=== PATIENT | female | born 1970 | race Caucasian/White ===

== ENCOUNTER → 2016-10-09 | Outpatient (CLI) | payer MEDICAID ==
[~2016-10-09] MED LIST: ALB0.5V IH; ALKA SELTZER CHEWS PO; ALPR.5T PO; ARFO15VI2 IH; BNZT2T PO; CARB100C2 PO; CARB200T6 PO; CHLO500T2; CLIN-62 PO; CLON0.5T3 PO; CPR500T PO; DESV100T PO; DIAZ-345; DIAZ5TAB49 PO; DOXY100C2 PO; DULO30CA; DULO60CA58 PO; DULO60CA6; EST.625T; ESTR0.9T; ESTR0.9T PO; FLC150T PO; FLECTOR TD; FLUT1DIS26; FLUT1DIS26 IH; FLUT1DIS27 IH; GABA-488 PO; HYDR-34; HYDR1TAB PO; HYDR1TAB86; HYOS0.1216 PO; IMIP25TA4 PO; IMIP50TA4 PO; LACT10SO33 PO; LD5PT TD; LEVA1.25 IH; LNS30CCR; LNS30CCR PO; LORA10TA7 PO; LRT10T PO; MIRT15TA6 PO; MPR22T TP; MULT-608; MULT-974 PO; NAPR-243 PO; NAPR-689 PO; NF-CARB200; OMEP20CA6 PO; OMEP40CA36 PO; ONDA4TAB2; ONDAN4ODT; OXB5T PO; OXYB5TAB9 PO; PEG250PW; PENT100C5 PO; PHEN200T27 PO; POLY119P; PREG75CA; PRM25T PO; PROP-33 PO; PROP1TAB77 PO; PROP20TA23; PROP20TA5; RABE20TA PO; RANI150T90 PO; RT-ALBUINH IH; TERA5CAP10 PO; TRAM-21 PO; TRAZ-144 PO; TRAZ150T42 PO; TRZ100T; ZPR40C; ZPR40C PO; [UNRECOGNIZED DRUG - OTHER]
== END ==
LOC: PREOP 05:49
PROVIDERS: ATTEND Surgery
DX: Z01.818 Encounter for other preprocedural examination (principal); K62.89 Other specified diseases of anus and rectum

== ENCOUNTER 2018-05-13 18:29 | Emergency (ER) | payer MEDICAID ==
[~2018-05-13] VITALS: Ht 149.9 cm; Wt 68.0 kg
[2018-05-13 19:30] VITALS: BP 100/65
--- NOTE | 2018-05-13 19:37 | ED Cough/URI ---
General Chief Complaint: Cough/Cold/Flu Symptoms Stated Complaint: BODY ACHES/HOT AND COLD FLASHES Nursing Triage Note: PT REPORTS COUGH/COLD/FLU S/S WITH BODY ACHES AND HPT/COLD FLASHES X 2 DAYS. REPORTS GRANDCHILDREN THAT LIVE WITH HER HAVE TESTED POSITIVE FOR THE FLU. Sepsis Screen: No Definite Risk Source: patient Exam Limitations: no limitations History of Present Illness Date Seen by Provider: May 13, 2018 Time Seen by Provider: 19:22 Initial Comments Patient presents to ER by private conveyance with chief complaint of 2 days of fever of 100 and nonproductive cough runny nose. She is using Tylenol. She also had some diarrhea for which she uses some prescribed antidiarrheal medicine from her primary care doctor. All the kids in her household are sick with flu and strep throat. She's had decreased activity but good oral intake and still urinating without painful urination. Allergies and Home Medications Allergies Coded Allergies: Sulfa (Sulfonamide Antibiotics) (Unverified Allergy, Mild, 07/08/08) cephalexin (Unverified Allergy, Mild, 10/04/08) nitrofurantoin (Unverified Allergy, Mild, 09/14/08) tramadol (Unverified Allergy, Mild, 08/31/08) lubiprostone (Unverified Allergy, Unknown, 06/17/12) trihexyphenidyl (Unverified Allergy, Unknown, 12/21/13) Home Medications Albuterol Sulfate 1 Puff Puff, 2 PUFF IH Q6H PRN for SHORTNESS OF BREATH, ( Reported) Carbamazepine 200 Mg Tablet, 200 MG PO BID, (Reported) Duloxetine HCl 60 Mg Capsule.dr, 120 MG PO DAILY, (Reported) TAKES 2 (60MG) CAPSULES DAILY Estrogens,Conjugated 0.9 Mg Tablet, 0.9 MG PO DAILY, (Reported) Fluticasone/Salmeterol 1 Disk Inhp, 1 PUFF IH BID PRN for SHORTNESS OF BREATH, ( Reported) Gabapentin 300 Mg Capsule, 300 MG PO TID PRN for PAIN, (Reported) Imipramine Hcl 50 Mg Tablet, 50 MG PO HS, (Reported) Loratadine 10 Mg Tablet, 10 MG PO HS, (Reported) Naproxen 500 Mg Tablet, 500 MG PO BID, (Reported) Omeprazole 40 Mg Capsule.dr, 40 MG PO BID, (Reported) Oxybutynin Chloride 5 Mg Tablet, 5 MG PO BID, (Reported) Ranitidine Hcl 150 Mg Tablet, 150-300 MG PO BID PRN for HEARTBURN, (Reported) Trazodone Hcl 50 Mg Tablet, 50-100 MG PO HS, (Reported) [[place]asia-[place] Chews] , 2 TAB.CHEW PO TID PRN for INDIGESTION, (Reported) Patient Home Medication List Home Medication List Reviewed: Yes Review of Systems Review of Systems Constitutional: chills, fever, malaise, weakness EENTM: No ear discharge, No hearing loss, No ear pain, No eye pain Respiratory: cough; No phlegm, No short of breath, No wheezing Cardiovascular: No chest pain, No palpitations Gastrointestinal: No abdominal pain, No constipation; diarrhea; No nausea Genitourinary: No discharge, No dysuria Past Ipkueuw-Vhyxka-Tzemec Hx Patient Social History Alcohol Use: Denies Use Recreational Drug Use: No Smoking Status: Current Everyday Smoker Recent Foreign Travel: No Contact w/Someone Who Travel: No Recent Infectious Disease Expo: No Immunizations Up To Date Tetanus Booster (TDap): Unknown Date of Pneumonia Vaccine: Dec 14, 2011 Date of Influenza Vaccine: Dec 24, 2013 Seasonal Allergies Seasonal Allergies: No Past Medical History Surgeries: Yes (LEFT BREAST BIOPSY--BENIGN. EGD/COLONOSCOPY) Section, Hysterectomy, Tubal Ligation Respiratory: Yes Asthma, COPD Cardiac: No Neurological: Yes (EPILEPSY) Seizure Disorder Reproductive Disorders: No DIRECTOR SEARCH History: Hysterectomy UTI-Chronic Gastrointestinal: Yes (CONSTIPATION) Gastroesophageal Reflux, Chronic Constipation, Ulcer, Irritable Bowel Musculoskeletal: No Endocrine: No Loss of Vision: Left Cancer: No Psychosocial: Yes Sleep Difficulties, Anxiety, Depression Integumentary: Yes (SPIDER BITE WITH CELLULITIS 12/21/13) Blood Disorders: No Adverse Reaction/Blood Tranf: No Family Medical History Diabetes mellitus G8 SISTER Physical Exam Vital Signs - First Documented 05/13/18 18:46 Temp 97.6 Pulse 90 Resp 18 B/P (MAP) 100/65 (77) Pulse Ox 95 Capillary Refill : Less Than 3 Seconds Height: 4'11.00" Weight: 150lbs. oz. 68.181625kv; BMI Method:Estimated General Appearance: WD/WN, no apparent distress Eyes: Bilateral Eye Normal Inspection, Bilateral Eye PERRL, Bilateral Eye EOMI HEENT: PERRL/EOMI, normal ENT inspection, TMs normal, pharynx normal Neck: non-tender, full range of motion, supple, normal inspection Respiratory: chest non-tender, lungs clear, normal breath sounds, no respiratory distress, no accessory muscle use Cardiovascular: normal peripheral pulses, regular rate, rhythm Gastrointestinal: normal bowel sounds, non tender, soft, no organomegaly Neurologic/Psychiatric: alert, normal mood/affect, oriented x 3 Progress/Results/Core Measures Suspected Sepsis Recent Fever Within 48 Hours: No Infection Criteria Present: None New/Unexplained Altered Menta: No Sepsis Screen: No Definite Risk SIRS Temperature:97.6 Pulse: 90 Respiratory Rate: 18 Blood Pressure 100 /65 Mean: 77 Results/Orders Micro Results Microbiology 05/13/18 Influenza Types A,B Antigen (ELEAZAR) - Final, Complete My Orders Orders - HEATHER FULLER Influenza A And B Antigens (05/13/18 18:56) Vital Signs/I&O 05/13/18 18:46 Temp 97.6 Pulse 90 Resp 18 B/P (MAP) 100/65 (77) Pulse Ox 95 Capillary Refill : Less Than 3 Seconds Blood Pressure Mean: 77 Departure Impression Primary Impression: Upper respiratory infection Qualified Codes: J06.9 - Acute upper respiratory infection, unspecified Disposition: HOME, SELF-CARE Condition: Stable Departure-Patient Inst. Decision time for Depature: 19:35 Referrals: [facility] (PCP/Family) Primary Care Physician Patient Instructions: Cough, Runny Nose, and the Common Cold (DC) Add. Discharge Instructions: If you start healing your ears under water then you can use Flonase or Rhinocort twice a day for the next week. Use Tylenol and/or ibuprofen every 8 hours as needed for pain, bodyaches or fever. If you continue to have diarrhea you can use 2 tablets of Imodium followed by one more tablet every time you have a watery stool every 4 hours. For your runny nose you can use [id number] nasal decongestants such as chlorpheniramine 4 mg every 4 hours. Turned he down in the house and use a humidifier at all times. Use vapor rubs such as Vicks or Mentholatum. All discharge instructions reviewed with patient and/or family. Voiced understanding. HEATHER FULLER May 13, 2018 19:37
== END 2018-05-13 19:57 | disposition home or self-care (01) ==
LOC: EDUNIT# 18:29 → ER 18:30
DX: J06.9 Acute upper respiratory infection, unspecified (principal); J44.9 Chronic obstructive pulmonary disease, unspecified; G40.909 Epilepsy, unspecified, not intractable, without status epilepticus; K21.9 Gastro-esophageal reflux disease without esophagitis; K58.9 Irritable bowel syndrome, unspecified; F41.9 Anxiety disorder, unspecified; F32.9 Major depressive disorder, single episode, unspecified; F17.210 Nicotine dependence, cigarettes, uncomplicated; Z87.19 Personal history of other diseases of the digestive system; Z98.890 Other specified postprocedural states; Z87.440 Personal history of urinary (tract) infections; Z90.710 Acquired absence of both cervix and uterus; Z98.51 Tubal ligation status; Z88.2 Allergy status to sulfonamides; Z88.1 Allergy status to other antibiotic agents; Z88.6 Allergy status to analgesic agent; Z88.8 Allergy status to other drugs, medicaments and biological substances; Z79.51 Long term (current) use of inhaled steroids
CPT/HCPCS: 87804

== ENCOUNTER → 2018-08-11 | Outpatient (CLI) | payer MEDICAID ==
--- NOTE | 2018-08-11 10:40 | Diagnostic Imaging Report ---
PROCEDURE: CT chest without contrast. TECHNIQUE: Multiple contiguous axial images were obtained through the chest without the use of intravenous contrast. Auto Exposure Controls were utilized during the CT exam to meet ALARA standards for radiation dose reduction. INDICATION: Weight loss and family history of lung problems. COMPARISON: Correlation is made with prior CT angiogram of the chest from 08/20/2010. FINDINGS: No axillary lymphadenopathy is identified. Mediastinal and hilar evaluation is limited without intravenous contrast. No pericardial or pleural fluid is identified. The lungs are clear. No infiltrates are seen. No nodule or mass is detected. Upper abdomen is unremarkable. Bony structures are nonacute. IMPRESSION: Unremarkable noncontrast CT of the chest. Dictated by: Dictated on workstation # [id number]
== END ==
LOC: RAD 10:11
PROVIDERS: ATTEND Family Medicine
DX: R63.4 Abnormal weight loss (principal); Z83.6 Family history of other diseases of the respiratory system
CPT/HCPCS: 71250

== ENCOUNTER → 2018-09-12 | Outpatient (CLI) | payer MEDICAID | END | disposition home or self-care (01) | LOC: PREOP 05:51 | PROVIDERS: ATTEND Surgery | DX: Z01.818 Encounter for other preprocedural examination (principal) ==

== ENCOUNTER → 2018-10-17 | Outpatient (CLI) | payer MEDICAID | END | disposition home or self-care (01) | LOC: PREOP 06:37 | PROVIDERS: ATTEND Surgery | DX: Z01.818 Encounter for other preprocedural examination (principal) ==

== ENCOUNTER 2018-10-24 10:15 | Day surgery (SDC) | payer MEDICAID ==
[~2018-10-24] VITALS: Ht 149.9 cm; Wt 68.0 kg
[2018-10-24] VITALS (7 sets, daily range): BP systolic 94–135; BP diastolic 60–82
[~2018-10-24 10:15] MED LIST changes: +LACTATED RINGERS 1,000 ML IV ONE
[2018-10-24] MEDS ORDERED: LACTATED RINGERS 1,000 ML IV STA (10:52)
[2018-10-24] MEDS ORDERED: fentaNYL INJECTION 100 MCG/2 ML AMP IVP ONE (11:00)
[2018-10-24] MEDS ORDERED: MIDAZOLAM 2 MG/2 ML (VERSED) VIAL IVP ONE (11:00)
--- NOTE | 2018-10-24 11:09 | Progress Note-Pre Operative ---
Pre-Operative Progress Note H&P Reviewed The H&P was reviewed, patient examined and no changes noted. Time Seen by Provider: 11:05 Date H&P Reviewed: Oct 24, 2018 Time H&P Reviewed: 11:05 Pre-Operative Diagnosis: rectal bleed TERRANCE SCHULTZ DO Oct 24, 2018 11:09
[2018-10-24] MEDS ORDERED: proPOfol 200 MG/20 ML (DIPRIVAN) VIAL IV ONE ×3 (11:18→11:40)
[2018-10-24] MEDS ORDERED: MIDAZOLAM 2 MG/2 ML (VERSED) VIAL ONE (11:22)
--- OUTSIDE RECORDS SUMMARY | 2018-10-24 11:59 | XMS REPORT | Clinical Summary ---
Author Author [facility] Organization [facility] Address Unknown Phone Unavailable Care Team Providers Care Monitoring Tech Name Role Phone PCP Unavailable Allergies Not on File Medications Not on file Active Problems Not on file Social History Date Tobacco Use Types Packs/Day Years Used Never Assessed Sex Assigned at Date Recorded Not on file Industry Job Start Date Occupation Not on file Not on file Not on file Travel End Travel History Travel Start No recent travel history available. Last Filed Vital Signs Not on file Plan of Treatment Not on file Results Not on filefrom Last 3 Months
--- OUTSIDE RECORDS SUMMARY | 2018-10-24 11:59 | XMS REPORT | Encounter Summary ---
Author Author [facility] Organization [facility] Address Unknown Phone Unavailable Care Team Providers Care Machinist Name Role Phone PCP Unavailable Encounter Details Care Team Description Date Type Department Rohit Marquez MD [address] [facility] [address] [place] [address] [phone] 07/22/2010 [facility] Encounter [address] [place] [address] Social History Date Tobacco Use Types Packs/Day Years Used Never Assessed Sex Assigned at Date Recorded Not on file Industry Job Start Date Occupation Not on file Not on file Not on file Travel End Travel History Travel Start No recent travel history available. documented as of this encounter Plan of Treatment Not on filedocumented as of this encounter Procedures Comments Procedure Name Priority Date/Time Associated Diagnosis CULTURE, URINE Routine 07/22/2010 12:58 PM CDT documented in this encounter Results * Culture, Urine (07/22/2010 12:58 PM CDT) Specimen Urine Narrative Performed At [facility] Specimen: URINE Collected: 07/22/2010 12:58 Status: FinalLast Updated: 07/24/2010 08:34 Isolate 1 (Final) 56933 Cfu/ml Escherichia coli Isolate 1 Escherichia coli mcg/ml ELEAZAR Ampicillin>=32R Aztreonam <=1 S Cefazolin 16R Cefepime<=1 S Ceftriaxone <=1 S Ciprofloxacin <=0.25S ESBL (+/-)- Ertapenem <=0.5 S Gentamicin<=1 S Meropenem <=0.25S Nitrofurantoin<=16S Septra/Bactrim<=20S Antibiotic Therapy Table: DrugCost Administration AMPICILLIN$IV AMPICILLIN$PO AZTREONAM $$$IV CEFAZOLIN $IV CEFEPIME$IV CEFTRIAXONE $IV CIPROFLOXACIN $PO CIPROFLOXACIN $IV ERTAPENEM $$ IV GENTAMICIN$IV MEROPENEM $$$IV NITROFURANTOIN$PO SEPTRA/BACTRIM$PO Performing Organization Address City/State/[facility] Phone Number [facility] [phone] documented in this encounter Visit Diagnoses Not on filedocumented in this encounter
--- OUTSIDE RECORDS SUMMARY | 2018-10-24 11:59 | XMS REPORT | Clinical Summary ---
Author Author [facility] Organization [facility] Address Unknown Phone Unavailable Care Team Providers Care Fur Designer Name Role Phone Pete Patten MD Unavailable Yaneth Stone MD Unavailable Jay Olsen PCP Claudia Ashraf RN Unavailable Unavailable Yahir Ruelas MD Unavailable Source Comments Some departments are not documenting in the electronic medical record. If you d o not see the information that you expected, contact Release of Information in [facility] Information Management department at [phone] for further assistan ce in locating additional records.[facility] Allergies Comments Active Allergy Reactions Severity Noted Date Lubiprostone NAUSEA AND 08/11/2012 VOMITING Cephalexin UNKNOWN 08/11/2012 Megestrol UNKNOWN 08/11/2012 Nitrofurantoin UNKNOWN 08/11/2012 Sulfa (Sulfonamide NAUSEA AND 08/11/2012 Antibiotics) VOMITING Medications End Date Status Medication Sig Dispensed Refills Start Date Active FLUTICASONE/SALMETEROL Inhale by 0 (ADVAIR DISKUS IN) mouth daily. Active Arformoterol (BROVANA) 15 Inhale by 0 mcg/2 mL Nebu mouth twice daily. Active clonazePAM (KLONOPIN) 0.5 Take 0.5 mg 0 mg tablet by mouth twice daily. Active loratadine (CLARITIN) 10 Take 10 mg by 0 mg tablet mouth daily. Active carBAMazepine (TEGRETOL) Take 200 mg 0 200 mg tablet by mouth twice daily. Active OMEPRAZOLE (PRILOSEC PO) Take 30 mg by 0 mouth. Active estrogens, conjugated Take 0.9 mg 0 (PREMARIN) 0.9 mg tablet by mouth daily. Active DULOXETINE HCL (CYMBALTA Take by 0 PO) mouth. Active traZODone (DESYREL) 50 mg Take 50 mg by 0 tablet mouth at bedtime daily. Active terazosin (HYTRIN) 5 mg Take 5 mg by 0 capsule mouth at bedtime daily. Active polyethylene glycol 3350 Take 17 g by 1530 g 3 (MIRALAX) 17 gram/dose mouth twice 3 powderIndications: daily. Heartburn, Rectal bleed, Constipation Active naproxen (NAPROSYN) 500 Take 500 mg 0 mg tablet by mouth twice daily with meals. Active imipramine (TOFRANIL) 50 TAKE 1 TABLET 90 Tab 0 mg tabletIndications: BY MOUTH AT 4 Interstitial cystitis BEDTIME Active pentosan polysulfate 1 Cap three 270 Cap 0 sodium (ELMIRON) 100 mg times daily 4 capsuleIndications: before meals. Interstitial cystitis Active oxybutynin (DITROPAN) 5 TAKE 1 TABLET 60 Tab 0 mg tablet BY MOUTH 4 TWICE DAILY Active Problems Problem Noted Date Constipation 12/28/2012 Heartburn 12/28/2012 Abdominal pain 12/28/2012 Rectal bleeding 12/28/2012 Interstitial cystitis 08/15/2012 Last Assessment & Plan: Patient has increasing bladder spasms. PVR today was 56ml demonstrating adequate bladder emptying. The patient may benefit from an anticholinergic for her spasms. The patient was counseled on continuing her imipramine and elmiron for incontinence and IC respectively, follow the IC diet, and reduce the amount of caffeine consumed. The patient was made aware of the side effects of oxybutynin and was encouraged to increase fiber in her diet or follow the bowel cocktail recipe. Plan: 1. Oxybutynin 5mg BID 2. Continue IC medications 3. IC diet and bowel cocktail information 4. RTC in 3 months to reassess Family History Medical History Relation Name Comments Heart Attack Brother Heart Disease Brother Heart Attack Father Heart Disease Father Heart Attack Mother Heart Disease Mother Relation Name Status Comments Brother Father Mother Social History Date Tobacco Use Types Packs/Day Years Used Current Every Day Smoker 0.3 Comments: >6 cigs a day Drinks/Week oz/Week Comments Alcohol Use No Sex Assigned at Date Recorded Not on file Industry Job Start Date Occupation Not on file Not on file Not on file Travel End Travel History Travel Start No recent travel history available. 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 Oxygen Saturation - - Inhaled Oxygen Concentration 84.8 kg (187 lb) 08/28/2013 12:10 PM CDT Weight 149.9 cm (4' 11") 08/28/2013 12:10 PM CDT Height 37.77 08/28/2013 12:10 PM CDT Body Mass Index Plan of Treatment Health Maintenance Due Date Last Done Comments PHYSICAL (COMPREHENSIVE) 1976 EXAM HIV SCREENING 1984 DTAP/TDAP VACCINES ( - 08/24/1987 Tdap) CERVICAL CANCER SCREENING 08/24/1999 BREAST CANCER SCREENING 2009 INFLUENZA VACCINE 12/13/2018 Results Not on filefrom Last 3 Months Insurance Type Payer Benefit Subscriber ID Effective Phone Address Plan / Dates Group Medicaid [facility] [place]ID [place] [facility] xxxxxxxxxxx [id number] [employer] [place] Advance Directives Patient Necktie Operator Pockets And Pieces Explanation Type Date Recorded Advance 01/03/2013 2:27 PM Directive/DPOA
--- OUTSIDE RECORDS SUMMARY | 2018-10-24 11:59 | XMS REPORT | CCD ---
Author Author EVETTE ANDRADE Organization Unknown Address [address] [facility] [address] [place], [place] [id number] Care Team Providers Care Dance Director Name Role Phone TAVERAS, NURYS DO Attphys TAVERAS, NURYS DO Prisurg Vital Signs Unknown or Not Available. Allergies Allergy Code Allergy Type Reaction Status No Known Drug Allergies 0 No known drug allergies Active Procedures Procedure Code Procedure Type Date ^UA AUTO DIPSTICK ONLY [id number] SNOMED CT 04/13/2015 UA ROUTINE C&S IF IND [id number] SNOMED CT 04/13/2015 History of Immunizations Immunization Code Date influenza, split (incl. purified surface antigen) 15 12/19/1992 influenza, split (incl. purified surface antigen) 15 01/24/2001 pneumococcal polysaccharide PPV23 33 01/01/2012 influenza, unspecified formulation 88 01/02/1998 Tdap 115 10/15/2005 Tdap 115 01/30/2009 Influenza, seasonal, injectable 141 01/01/2012 Problems Unknown or Not Available. Results UA ROUTINE C&S IF IND - Collect Date/Time: 04/13/2015 15:30 Test Name Code Test Result Test Units Test Ref Range COLOR YELLOW N/A NL: YELLOW APPEARANCE CLEAR N/A NL: CLEAR SPEC GRAV <=1.005 N/A NL: 1.002 - 1.022 pH 6.0 N/A NL: 5 - 9 PROTEIN NEGATIVE N/A NL: NEGATIVE mg/dl GLUCOSE NEGATIVE N/A NL: NEGATIVE mg/dl KETONE NEGATIVE N/A NL: NEGATIVE mg/dl BILIRUBIN NEGATIVE N/A NL: NEGATIVE BLOOD NEGATIVE N/A NL: NEGATIVE NITRITE NEGATIVE N/A NL: NEGATIVE LEUK SCREEN NEGATIVE N/A NL: NEGATIVE MICRO INDICATED? NOT INDICATED N/A Active Medications Unknown or Not Available. Medications Administered During Visit Unknown or Not Available. Encounters Encounter Diagnosis Diagnosis Code Start Date Allergic rhinitis [id number] 04/13/2015 Social History Smoking Status Code Start Date End Date Current every day smoker [id number] Patient Decision Aids Unknown or Not Available. Discharge Instructions You were admitted to [facility] on 04/13/2015 14:40 with a principal diagnosis of Allergic rhinitis, unspecified You had the following tests done: UA ROUTINE C&S IF IND You were discharged from [facility] on 04/13/2015 16:04 Should you have any questions prior to discharge, please contact a member of your healthcare team. If you have left the hospital and have any questions, please contact your primary care physician. Chief Complaint and Reason For Visit Chief Complaint Date of Onset LOSS OF VOICE PRODUCTIVE COUGH Function Status Unknown or Not Available. Plan of Care Unknown or Not Available. Referral/Transition of Care Unknown or Not Available.
--- OUTSIDE RECORDS SUMMARY | 2018-10-24 12:00 | XMS REPORT ---
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 Name Role Phone Migration, Doctor Unavailable Unavailable PROBLEMS Type Condition ICD9-CM Code DCA39-UR Code Onset Dates Condition Status SNOMED Code Problem Chronic periodontal disease K05.6 Active 6610808 Problem MRSA (methicillin resistant staph aureus) culture positive Z22.322 Active 845647158 Problem Interstitial cystitis N30.10 Active 559895868 Problem Epilepsy G40.909 Active 47236791 Problem Esophageal reflux K21.9 Active 146083865 Problem Major depressive disorder F32.9 Active 866169059 Problem Lumbago M54.5 Active 782679521 Problem Generalized anxiety disorder F41.1 Active 056371314 Problem Tinnitus of both ears H93.13 Active 7081294821429 Problem Chronic obstructive pulmonary disease, unspecified COPD type J44.9 Active 20305804 Problem On antiepileptic therapy Z79.899 Active 591541955 Problem Paresthesia of skin R20.2 Active 92089471 Problem Irritable bowel syndrome without diarrhea K58.9 Active 48495342 Problem Paresthesia R20.2 Active 82874282 Problem Fibromyalgia M79.7 Active 92991965 Problem Vitamin D deficiency E55.9 Active 71917940 Problem Irritable bowel syndrome with diarrhea K58.0 Active 461260382 Problem Menopausal symptoms N95.1 Active 88337937 Problem COPD exacerbation J44.1 Active 319511585 ALLERGIES No Information ENCOUNTERS Encounter Location Date Diagnosis [facility] [address] [facility] [id number] [address] Sep, [facility] [address] [facility] [id number] [address] Sep, [facility] [address] [facility] [id number] [address] Sep, [facility] [address] [facility] [id number], [place] [address] Sep, [facility] [address] [address] Sep, Rectal pain K62.89 [facility] [address] [address] Aug, [address] [address] Aug, Well woman exam (no gynecological exam) Z00.[address] [address] Aug, [facility] [address]65[address] [address] Aug, Well woman exam (no gynecological exam) Z00.00 and Hemorrhoids, unspecified hemorrhoid type K64.[address] [address] Aug, [facility] [address]65[address] [address] July, Dysuria R30.0 ; Bleeding hemorrhoids K64.9 and Hematochezia K92.1 [facility] [id number] [place] [address] July, [facility] [address] [address] July, Dysuria R30.0 [facility] [address], [place] [address] July, Paresthesia R20.2 [facility] [address] [address] July, [facility] [id number] [place] [address] July, Fibromyalgia M79.7 and Generalized anxiety disorder F41.1 [facility] [address] [address] July, [facility] [address] [address] Jun, [facility] [address] [address] Jun, Dysuria R30.0 ; Major depressive disorder F32.9 ; Interstitial cystitis N30.10 ; Vitamin D deficiency E55.9 ; Hematochezia K92.1 ; Paresthesia of skin R20.2 and Weight loss R63.4 [facility] [address] [address] Jun, Fibromyalgia M79.7 [place] [address] [address] May, Fibromyalgia M79.7 [place] [address] [address] Apr, [facility] [address] [address] Mar, Fibromyalgia M79.7 [place] [address] [address] Feb, Fibromyalgia M79.7 [facility] [address] [address] Feb, Acute cystitis with hematuria N30.01 [place] [address] [address] Feb, Acute cystitis with hematuria N30.01 ; COPD exacerbation J44.1 ; Interstitial cystitis N30.10 ; Nausea R11.0 and Rectal bleeding K62.5 [facility] [address] [address] Jan, Fibromyalgia M79.7 [facility] [id number] [place] [id number] Dec, [facility] [address] [id number] Dec, [facility] [id number] [place] [address] Dec, Fibromyalgia M79.7 [facility] [address] [address] Dec, [facility] [address] [address] Oct, [facility] [address] [id number] Oct, [facility] [address] [address] Oct, [facility] [address] [address] Sep, [facility] [address] [address] Sep, [facility] [address] [address] Sep, [facility] [id number] [place] [id number] Aug, Dental examination Z01.20 [facility] [address] [address] Aug, Abscess of axilla, left L02.412 [facility] [id number] [place] [address] Aug, Esophageal reflux K21.9 [facility] [id number] [place] [address] Aug, [facility] [address] [address] Aug, Esophageal reflux K21.9 ; Fluid level behind tympanic membrane of right ear H65.91 ; Fibromyalgia M79.7 and Lumbago M54.5 [facility] [address] [address] Aug, Esophageal reflux K21.9 [facility] [address], [place] [address] July, [facility] [address], [place] [address] July, [facility] [address]65[address], [place] [address] July, Chronic obstructive pulmonary disease, unspecified COPD type J44.9 [facility] [address], [place] [address] July, [place] [id number] [place] [address] July, [place] [address], [place] [address] July, Interstitial cystitis N30.10 ; Fibromyalgia M79.7 ; Irritable bowel syndrome without diarrhea K58.9 ; Chronic obstructive pulmonary disease, unspecified COPD type J44.9 ; Weight loss R63.4 ; Hematochezia K92.1 ; Screening for breast cancer Z12.31 ; Palpitations R00.2 ; Chest pain, unspecified type R07.9 ; Lumbago M54.5 ; Menopausal symptoms N95.1 ; Screening cholesterol level Z13.220 ; Dysuria R30.0 and Generalized anxiety disorder F41.1 [place] [address] [address] Jun, [place] [address], [place] [address] Jun, Chronic obstructive pulmonary disease, unspecified COPD type J44.9 ; COPD exacerbation J44.1 and Sore throat J02.9 [place] [address], [place] [address] Jun, Fibromyalgia M79.7 [place] [address], [place] [address] Jun, Fibromyalgia M79.7 [facility] [address], [place] [address] May, [facility] [id number] [place] [address] May, [facility] [id number] [place] [address] May, Fibromyalgia M79.7 [facility] [id number] [place] [address] Mar, [facility] [id number] [place] [address] Mar, Epilepsy G40.909 ; Lumbago M54.5 ; Esophageal reflux K21.9 ; Fibromyalgia M79.7 ; Chronic obstructive pulmonary disease, unspecified COPD type J44.9 ; Vitamin D deficiency E55.9 ; Fluid level behind tympanic membrane of right ear H65.91 ; Irritable bowel syndrome with diarrhea K58.0 ; Hematochezia K92.1 and Generalized anxiety disorder F41.1 [facility] [id number] [place] [address] Mar, [facility] [id number] [place] [address] Mar, [facility] [address] [place] [address] Mar, Vitamin D deficiency E55.9 [facility] [id number] [place] [address] Feb, [facility] [id number] [place] [address] Feb, [facility] [id number] [place] [address] Jan, Fibromyalgia M79.7 [facility] [address] [place] [address] Jan, [facility] [id number] [place] [address] Jan, [facility] [id number] [place] [address] Jan, Vitamin D deficiency E55.9 [facility] [id number] [place] [address] Dec, [facility] [address] [address] Dec, [facility] [id number] [place] [address] Dec, Generalized anxiety disorder F41.1 [place] [id number] [place] [address] Dec, Dysuria R30.0 ; Acute bilateral low back pain without sciatica M54.5 and Encounter for immunization Z23 [place] [address] [address] Oct, [facility] [id number] [place] [address] Oct, Fibromyalgia M79.7 [facility] [id number] [place] [address] Sep, Dysuria R30.0 and Acute bronchitis, unspecified organism J20.9 [facility] [id number] [place] [address] Sep, [facility] [id number] [place] [address] Sep, Rectal prolapse K62.3 [place] [id number] [place] [address] Sep, Chronic obstructive pulmonary disease, unspecified COPD type J44.9 [facility] [id number] [place] [id number] Aug, [facility] [address] [id number] [place] [address] Aug, [place] [id number] [place] [address] Aug, Light headedness R42 ; On antiepileptic therapy Z79.899 ; Vitamin D deficiency E55.9 ; Screening for lipid disorders Z13.220 ; Dysuria R30.0 and Hemorrhoids, unspecified hemorrhoid type K64.9 [place] [address] [address] Aug, Internal prolapsed hemorrhoids K64.[address] [address] July, [address] [address] May, [address] [address] May, Fever and chills R50.9 and Influenza B J10.1 [place] [id number] [place] [address] Apr, [place] [id number] [place] [address] Apr, Fibromyalgia M79.7 and Generalized anxiety disorder F41.[address] [address] Mar, Esophageal reflux K21.9 ; Generalized anxiety disorder F41.1 and Epilepsy G40.909 [place] [id number] [place] [address] Mar, Epilepsy G40.909 ; Esophageal reflux K21.9 ; Fibromyalgia M79.7 ; Generalized anxiety disorder F41.1 ; Pain of left foot M79.672 ; Pain in right foot M79.671 ; Ear pain, right H92.01 ; Tinnitus of both ears H93.13 ; Chronic obstructive pulmonary disease, unspecified COPD type J44.9 ; Vitamin D deficiency E55.9 ; Screening for lipid disorders Z13.220 and On antiepileptic therapy Z79.899 [facility] [id number] [place] [address] Feb, [facility] [id number] [place] [address] Feb, [facility] [id number] [place] [address] Feb, Dysuria R30.0 and Plantar fasciitis of right foot M72.2 [facility] [id number] [place] [address] Feb, [facility] [id number] [place] [address] Feb, [facility] [id number] [place] [address] Jan, [facility] [id number] [place] [address] Jan, [facility] [id number] [place] [address] Dec, [facility] [id number] [place] [address] Dec, [facility] [id number] [place] [address] Dec, [facility] [id number] [place] [address] Nov, [facility] [id number] [place] [address] Sep, [facility] [id number] [place] [address] Aug, Shortness of breath R06.02 and Acute suppurative otitis media of right ear without spontaneous rupture of tympanic membrane, recurrence not specified H66.001 [facility] [id number] [place] [address] 14 Aug, 2015 Internal prolapsed hemorrhoids K64.8 [place] [address] [address] 06 Jun, 2015 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 [place] [address] [address] May, Fibromyalgia M79.7 ; Interstitial cystitis N30.10 ; Intractable migraine without aura and without status migrainosus G43.019 ; Low vitamin D level E55.9 and Ringing in right ear H93.11 [place] [address] [address] May, [place] [address] [address] May, Low vitamin D level E55.9 [place] [address] [address] Apr, [place] [address] [address] Mar, [place] [address] [address] Mar, Acute suppurative otitis media of right ear without spontaneous rupture of tympanic membrane, recurrence not specified H66.001 ; Encounter for immunization Z23 ; Asthma with acute exacerbation, unspecified asthma severity J45.901 ; Memory problem R41.3 ; Acute pain of right knee M25.561 ; Chronic fatigue R53.82 and Excessive urinary volume R35.8 [place] [address] [address] Feb, [place] [address] [address] Feb, [place] [address] [address] Jan, [facility] [address] [place] [address] Nov, Esophageal reflux 530.81 ; Anxiety 300.00 and Tingling in extremities 782.0 [facility] [id number] [place] [address] Oct, [facility] [address] [address] Oct, [facility] [address] [address] Oct, [facility] [address] [address] Oct, [facility] [id number] [place] [address] Oct, [facility] [address] [address] Sep, Other chronic allergic conjunctivitis 372.14 ; Irritable bowel syndrome 564.1 ; 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 ; Fibromyalgia 729.1 ; Extremity pain 729.5 and Neck pain 723.1 [facility] [id number] [place] [address] Sep, [facility] [id number] [place] [address] Aug, [facility] [id number] [place] [address] Aug, [facility] [id number] [place] [address] July, Vomiting 787.03 [facility] [id number] [place] [id number] July, Dental examination V72.2 [facility] [id number] [place] [address] Jun, [facility] [place] [facility] [address] [id number] [place] [address] Jun, [facility] [place] [facility] [address] [id number] [place] [address] May, [facility] [place] [facility] [address] [id number] [place] [address] May, [facility] [place] [facility] [address] [id number] [place] [address] May, [facility] [place] [facility] [address] [id number] [place] [address] May, [facility] [place] [facility] [address] [id number] [place] [address] May, [facility] [place] [facility] [address] [id number] [place] [address] May, [facility] [place] [facility] [address] [id number] [place] [address] May, [facility] [place] [facility] [address] [id number] [place] [address] May, [facility] [place] [facility] [address] [id number] [place] [address] May, [facility] [place] [facility] [address] [facility] [id number] [place] [address] Apr, [facility] [place] [facility] [address] [id number] [place] [address] Apr, 2014 [facility] [place] [facility] [address] [id number] [place] [address] Apr, [facility] [place] [facility] [address] [id number] [place] [address] Apr, [facility] [place] [facility] [address] [id number] [place] [address] 05 Apr, 2014 [facility] [place] [facility] [address] [id number] [address] Apr, [facility] [place] [facility] [address] [id number] [place] [address] Mar, [facility] [place] [facility] [address] [id number] [place] [address] Mar, [facility] [place] [facility] [address] [id number] [place] [address] Mar, [facility] [place] [facility] [address] [id number] [place] [address] Mar, [facility] [place] [facility] [address] [id number] [place] [address] Mar, [facility] [place] [facility] [address] [id number] [place] [address] Mar, [facility] [place] [facility] [address] [id number] [place] [address] Mar, [facility] [place] [facility] [address] [id number] [place] [address] Mar, [facility] [place] [facility] [address] [id number] [place] [address] Mar, [facility] [place] [facility] [address] [id number] [place] [address] Mar, [facility] [place] [facility] [address] [id number], [place] [address] Mar, [facility] [place] [facility] [address] [id number], [place] [address] Mar, [facility] [place] [facility] [address] [id number] [place] [address] Mar, [facility] [place] [facility] [address] [id number] [place] [address] Mar, [facility] [place] [facility] [address] [id number] [place] [address] Mar, [facility] [place] [facility] [address] [id number] [place] [address] 15 Mar, 2014 [facility] [place] [facility] [address] [id number] [place] [address] 15 Mar, 2014 [facility] [place] [facility] [address] [id number] [place] [address] 09 Mar, 2014 [facility] [place] [facility] [address] [id number] [place] [address] Mar, [facility] [place] [facility] [address] [id number] [place] [address] 18 Feb, 2014 [facility] [place] [facility] [address] [id number] [place] [address] Feb, [facility] [place] [facility] [address] [id number] [place] [address] Feb, [facility] [place] [facility] [address] [id number] [place] [address] Feb, [facility] [place] [facility] [address] [id number] [place] [address] Jan, [facility] [place] [facility] [address] [id number] [place] [address] Jan, [facility] [place] [facility] [address] [id number] [place] [address] 14 Jan, 2014 [facility] [place] [facility] [address] [id number] [place] [address] 14 Jan, 2014 [facility] [place] [facility] [address] [id number] [place] [address] 14 Jan, 2014 [facility] [place] [facility] [address] [id number] [place] [address] Jan, [facility] [place] [facility] [address] [id number] [place] [address] Jan, [facility] [place] [facility] [address] [id number] [place] [address] Jan, [facility] [place] [facility] [address] [id number] [place] [address] Dec, [facility] [place] [facility] [address] [id number] [place] [address] Dec, [facility] [place] [facility] [address] [id number] [place] [address] Dec, [facility] [place] [facility] [address] [id number] [place] [address] Dec, [facility] [place] [facility] [address] [id number] [place] [address] 22 Nov, 2013 [facility] [place] [facility] [address] [id number] [place] [address] 22 Nov, 2013 [facility] [place] [facility] [address] [id number] [place] [address] 08 Nov, 2013 [facility] [place] [facility] [address] [id number] [place] [address] 08 Nov, 2013 [facility] [place] [facility] [address] [id number] [place] [address] 05 Sep, 2013 [facility] [place] [facility] [address] [id number] [place] [address] 05 Sep, 2013 [facility] [place] [facility] [address] [id number] [place] [address] 04 Sep, 2013 [facility] [place] [facility] [address] [id number] [address] 04 Sep, 2013 [facility] [place] [facility] [address] [id number] [place] [address] 03 Sep, 2013 [facility] [place] [facility] [address] [id number] [place] [address] 03 Nov, 2013 [facility] [place] [facility] [address] [id number] [place] [address] 15 Oct, 2013 [facility] [place] [facility] [address] [id number] [place] [address] Oct, [facility] [place] [facility] [address] [id number] [place] [address] Sep, [facility] [place] [facility] [address] [id number] [place] [address] Sep, [facility] [place] [facility] [address] [id number] [place] [address] Sep, [facility] [place] [facility] [address] [id number] [place] [address] Sep, [facility] [place] [facility] [address] [id number] [place] [address] Sep, [facility] [place] [facility] [address] [id number] [place] [address] Sep, [facility] [place] [facility] [address] [id number] [place] [address] Aug, [facility] [place] [facility] [address] [id number] [place] [address] Aug, [facility] [place] [facility] [address] [id number] [place] [address] Aug, [facility] [place] [facility] [address] [id number] [place] [address] Aug, [facility] [place] [facility] [address] [id number] [place] [address] Aug, [facility] [place] [facility] [address] [id number] [place] [address] Aug, [facility] [place] [facility] [address] [id number] [place] [address] July, [facility] [place] [facility] [address] [id number] [place] [address] July, [facility] [place] [facility] [address] [id number] [place] [address] July, [facility] [place] [facility] [address] [id number] [place] [address] July, [facility] [place] [facility] [address] [id number] [place] [address] July, [facility] [place] [facility] [address] [id number] [place] [address] July, [facility] [facility] [address] [id number] [place] [address] Jun, [facility] [place] [facility] [address] [id number] [place] [address] Jun, [facility] [place] [facility] [address] [id number] [place] [address] Jun, [facility] [place] [facility] [address] [id number] [place] [address] Jun, [facility] [place] [facility] [address] [id number] [place] [address] May, [facility] [place] [facility] [address] [id number] [place] [address] May, [facility] [place] [facility] [address] [id number] [place] [address] Apr, [facility] [facility] [address] [id number] [place] [address] Apr, [facility] [place] [facility] [address] [id number] [place] [address] Apr, [facility] [place] [facility] [address] [id number] [place] [address] Apr, [facility] [place] [facility] [address] [id number] [place] [address] Mar, [facility] [place] [facility] [address] [id number] [place] [address] Mar, [facility] [place] [facility] [address] [id number] [place] [address] Mar, [facility] [place] [facility] [address] [id number] [place] [address] Mar, [facility] [place] [facility] [address] [id number] [place] [address] Mar, [facility] [place] [facility] [address] [id number] [place] [address] Mar, [facility] [place] [facility] [address] [id number] [place] [address] Feb, [facility] [place] [facility] [address] [id number] [place] [address] Feb, [facility] [place] [facility] [address] [id number] [place] [address] Jan, [facility] [place] [facility] [address] [id number] [place] [address] Jan, [facility] [place] [facility] [address] [id number] [place] [address] Jan, [facility] [place] [facility] [address] [id number] [place] [address] Jan, [facility] [place] [facility] [address] [id number] [place] [address] Nov, [facility] [place] [facility] [address] [id number] [place] [address] Nov, [facility] [place] [facility] [address] [id number] [place] [address] Oct, [facility] [place] [facility] [address] [id number] [place] [address] Oct, [facility] [place] [facility] [address] [id number] [place] [address] Sep, [facility] [place] [facility] [address] [id number] [place] [address] Sep, [facility] [place] [facility] [address] [id number] [place] [address] Sep, [facility] [address] [id number] [place] [address] Aug, [facility] [address] [id number] [place] [address] Aug, [facility] [address] [id number] [place] [address] Aug, [facility] [address] [id number] [place] [address] Aug, [facility] [address] [id number] [place] [address] July, [facility] [address] [id number] [place] [address] July, [facility] [address] [id number] [place] [address] July, [facility] [address] [id number] [place] [address] July, [facility] [address] [id number] [place] [address] Jun, [facility] [address] [id number] [place] [address] Jun, [facility] [address] [id number] [place] [address] Jun, [facility] [address] [id number] [place] [address] May, [facility] [address] [id number] [place] [address] May, [facility] [address] [id number] [place] [address] Apr, [facility] [address] [id number] [place] [address] Apr, [facility] [facility] [address] [id number] [place] [address] Apr, [facility] [facility] [address] [id number] [place] [address] Apr, [facility] [place] [facility] [address] [id number] [place] [address] Mar, [facility] [place] [facility] [address] [id number] [place] [address] Mar, [facility] [place] [facility] [address] [id number] [place] [address] Mar, [facility] [facility] [address] [id number] [place] [address] Mar, [facility] [facility] [address] [id number] [place] [address] Feb, [facility] [facility] [address] [id number] [place] [address] Feb, [facility] [facility] [address] [id number] [place] [address] Feb, [facility] [facility] [address] [id number] [place] [address] Feb, [facility] [facility] [address] [id number] [place] [address] Feb, [facility] [facility] [address] [id number] [place] [address] Feb, [facility] [facility] [address] [id number] [place] [address] Feb, [facility] [facility] [address] [id number] [place] [address] Feb, [facility] [address] [id number] [place] [address] Jan, [facility] [address] [id number] [place] [address] 28 Jan, 2012 [facility] [address] [id number] [place] [address] 15 Jan, 2012 [facility] [address] [id number] [place] [address] 15 Jan, 2012 [facility] [address] [id number] [place] [address] 14 Jan, 2012 [facility] [address] [id number] [place] [address] 13 Jan, 2012 [facility] [address] [id number] [place] [address], [place] [address] 13 Jan, 2012 [facility] [facility] [address] [id number] [place] [address] Jan, [facility] [address] [facility] [id number] [place] [address] Jan, [facility] [facility] [address] [id number] [place] [address] Jan, [facility] [place] [facility] [address] [id number] [place] [address] Jan, [facility] [address] [facility] [id number] [place] [address] Dec, [facility] [address] [id number] [place] [address] Dec, [facility] [facility] [address] [id number] [place] [address] Dec, [facility] [place] [facility] [address] [id number] [place] [address] Dec, [facility] [place] [facility] [address] [facility] [id number] [place] [address] Dec, [facility] [facility] [address] [id number] [place] [address] Dec, [facility] [facility] [address] [id number] [place] [address] Dec, [facility] [place] [facility] [address] [id number] [place] [address] Dec, [facility] [place] [facility] [address] [id number] [place] [address] Dec, [facility] [place] [facility] [address] [id number] [place] [address] Dec, [facility] [place] [facility] [address] [id number] [place] [address] Dec, [facility] [place] [facility] [address] [id number] [place] [address] Dec, [facility] [place] [facility] [address] [id number] [place] [address] Nov, [facility] [place] [facility] [address] [id number] [place] [address] Oct, [facility] [place] [facility] [address] [id number] [place] [address] Oct, [facility] [place] [address] [id number] [place] [address] Oct, [facility] [place] [facility] [address] [id number] [place] [address] Oct, [facility] [address] [id number] [address] Sep, [facility] [address] [id number] [place] [address] Sep, [facility] [place] [facility] [address] [id number] [place] [address] Sep, [facility] [place] [facility] [address] [id number] [place] [address] Sep, [facility] [facility] [address] [id number], [place] [address] Aug, [facility] [id number] [address] Aug, [facility] [id number], [place] [address] Aug, [facility] [id number], [place] [address] Aug, [facility] [id number], [place] [address] Aug, [facility] [id number], [place] [address] July, [facility] [id number], [place] [address] July, [facility] [id number], [place] [address] July, [facility] [id number], [place] [address] Dec, IMMUNIZATIONS No Known Immunizations SOCIAL HISTORY Never Assessed REASON FOR VISIT PLAN OF CARE VITAL SIGNS MEDICATIONS Unknown Medications RESULTS No Results PROCEDURES No Known procedures INSTRUCTIONS MEDICATIONS ADMINISTERED No Known Medications MEDICAL (GENERAL) HISTORY Type Description Date Medical History epilepsy Medical History interstitial cystitis Surgical History hysterectomy Surgical History breast biopsy w/ Dr. Hickey 2009 Surgical History cholecystectomy 2012 Surgical History tonsillectomy Surgical History tubal ligation Surgical History urethral stretching 2008 Surgical History section Hospitalization History surgical purposes
--- OUTSIDE RECORDS SUMMARY | 2018-10-24 12:01 | XMS REPORT ---
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 Name Role Phone Migration, Doctor Unavailable Unavailable PROBLEMS Type Condition ICD9-CM Code [id number] Code Onset Dates Condition Status SNOMED Code Problem Chronic periodontal disease K05.6 Active 7522771 Problem MRSA (methicillin resistant staph aureus) culture positive Z22.322 Active 683667250 Problem Interstitial cystitis N30.10 Active 776817888 Problem Epilepsy G40.909 Active 39976145 Problem Esophageal reflux K21.9 Active 951858638 Problem Major depressive disorder F32.9 Active 390047699 Problem Lumbago M54.5 Active 849291232 Problem Generalized anxiety disorder F41.1 Active 053044251 Problem Tinnitus of both ears H93.13 Active 2517100310220 Problem Chronic obstructive pulmonary disease, unspecified COPD type J44.9 Active 23824812 Problem On antiepileptic therapy Z79.899 Active 106656405 Problem Paresthesia of skin R20.2 Active 26749688 Problem Irritable bowel syndrome without diarrhea K58.9 Active 69668687 Problem Paresthesia R20.2 Active 27789894 Problem Fibromyalgia M79.7 Active 84501359 Problem Vitamin D deficiency E55.9 Active 56554809 Problem Irritable bowel syndrome with diarrhea K58.0 Active 332389211 Problem Menopausal symptoms N95.1 Active 84521745 Problem COPD exacerbation J44.1 Active 254639511 ALLERGIES No Information ENCOUNTERS Encounter Location Date Diagnosis [facility] [address] [facility] [id number], [place] [address] Sep, [facility] [address] [facility] [id number], [place] [address] Sep, [facility] [address] [facility] [id number], [place] [address] Sep, [facility] [address] [facility] [id number], [place] [address] Sep, [facility] [address], [place] [address] Sep, Rectal pain K62.89 [facility] [address], [place] [address] Aug, [address] [address] Aug, Well woman exam (no gynecological exam) Z00.[address] [address] Aug, [facility] [address], [place] [address] Aug, Well woman exam (no gynecological exam) Z00.00 and Hemorrhoids, unspecified hemorrhoid type K64.[address] [address] Aug, [facility] [address], [place] [address] July, Dysuria R30.0 ; Bleeding hemorrhoids K64.9 and Hematochezia K92.1 [facility] [address] [place] [address] July, [facility] [address], [place] [address] July, Dysuria R30.0 [facility] [address], [place] [address] July, Paresthesia R20.2 [facility] [address], [place] [address] July, [facility] [id number] [place] [address] July, Fibromyalgia M79.7 and Generalized anxiety disorder F41.1 [facility] [address], [place] [address] July, [facility] [address] [address] Jun, [facility] [address] [address] Jun, Dysuria R30.0 ; Major depressive disorder F32.9 ; Interstitial cystitis N30.10 ; Vitamin D deficiency E55.9 ; Hematochezia K92.1 ; Paresthesia of skin R20.2 and Weight loss R63.4 [facility] [address] [address] Jun, Fibromyalgia M79.7 [place] [address] [address] May, Fibromyalgia M79.7 [place] [address] [address] Apr, [facility] [address] [address] Mar, Fibromyalgia M79.7 [place] [address] [address] Feb, Fibromyalgia M79.7 [facility] [address] [address] Feb, Acute cystitis with hematuria N30.01 [place] [address] [address] Feb, Acute cystitis with hematuria N30.01 ; COPD exacerbation J44.1 ; Interstitial cystitis N30.10 ; Nausea R11.0 and Rectal bleeding K62.5 [facility] [address] [address] Jan, Fibromyalgia M79.7 [facility] [id number] [place] [id number] Dec, [facility] [address] [id number] Dec, [facility] [id number] [place] [address] Dec, Fibromyalgia M79.7 [facility] [address] [address] Dec, [facility] [address] [address] Oct, [facility] [address] [id number] Oct, [facility] [address] [address] Oct, [facility] [address] [address] Sep, [facility] [address] [address] Sep, [facility] [address] [address] Sep, [facility] [id number] [place] [id number] Aug, Dental examination Z01.20 [facility] [address] [address] Aug, Abscess of axilla, left L02.412 [facility] [id number] [place] [address] Aug, Esophageal reflux K21.9 [facility] [id number] [place] [address] Aug, [facility] [address] [address] Aug, Esophageal reflux K21.9 ; Fluid level behind tympanic membrane of right ear H65.91 ; Fibromyalgia M79.7 and Lumbago M54.5 [facility] [address] [address] Aug, Esophageal reflux K21.9 [facility] [address], [place] [address] July, [facility] [address], [place] [address] July, [facility] [address], [place] [address] July, Chronic obstructive pulmonary disease, unspecified COPD type J44.9 [facility] [address], [place] [address] July, [place] [id number] [place] [address] July, [place] [address], [place] [address] July, Interstitial cystitis N30.10 ; Fibromyalgia M79.7 [...] Dysuria R30.0 and Generalized anxiety disorder F41.1 [place] [address], [place] [address] Jun, [place] [address], [place] [address] Jun, Chronic obstructive pulmonary disease, unspecified COPD type J44.9 ; COPD exacerbation J44.1 and Sore throat J02.9 [place] [address], [place] [address] Jun, Fibromyalgia M79.7 [place] [address], [place] [address] Jun, Fibromyalgia M79.7 [facility] [address], [place] [address] May, [facility] [id number] [place] [address] May, [facility] [id number] [place] [address] May, Fibromyalgia M79.7 [facility] [id number] [place] [address] Mar, [facility] [id number] [place] [address] Mar, Epilepsy G40.909 ; Lumbago M54.5 ; Esophageal reflux K21.9 ; Fibromyalgia M79.7 ; Chronic obstructive pulmonary disease, unspecified COPD type J44.9 ; Vitamin D deficiency E55.9 ; Fluid level behind tympanic membrane of right ear H65.91 ; Irritable bowel syndrome with diarrhea K58.0 ; Hematochezia K92.1 and Generalized anxiety disorder F41.1 [facility] [id number] [place] [address] Mar, [facility] [id number] [place] [address] Mar, [facility] [address] [place] [address] Mar, Vitamin D deficiency E55.9 [facility] [id number] [place] [address] Feb, [facility] [id number] [place] [address] Feb, [facility] [id number] [place] [address] Jan, Fibromyalgia M79.7 [facility] [address] [place] [address] Jan, [facility] [id number] [place] [address] Jan, [facility] [id number] [place] [address] Jan, Vitamin D deficiency E55.9 [facility] [id number] [place] [address] Dec, [facility] [address] [address] Dec, [facility] [id number] [place] [address] Dec, Generalized anxiety disorder F41.1 [place] [id number] [place] [address] Dec, Dysuria R30.0 ; Acute bilateral low back pain without sciatica M54.5 and Encounter for immunization Z23 [place] [address] [address] Oct, [facility] [id number] [place] [address] Oct, Fibromyalgia M79.7 [facility] [id number] [place] [address] Sep, Dysuria R30.0 and Acute bronchitis, unspecified organism J20.9 [facility] [id number] [place] [address] Sep, [facility] [id number] [place] [address] Sep, Rectal prolapse K62.3 [place] [id number] [place] [address] Sep, Chronic obstructive pulmonary disease, unspecified COPD type J44.9 [facility] [address] [place] [id number] [place] [id number] Aug, [facility] [id number] [place] [id number] Aug, [place] [id number] [place] [address] Aug, Light headedness R42 ; On antiepileptic therapy Z79.899 ; Vitamin D deficiency E55.9 ; Screening for lipid disorders Z13.220 ; Dysuria R30.0 and Hemorrhoids, unspecified hemorrhoid type K64.9 [place] [address] [address] Aug, Internal prolapsed hemorrhoids K64.[address] [address] July, [address] [address] May, [address] [address] May, Fever and chills R50.9 and Influenza B J10.1 [place] [id number] [place] [address] Apr, [place] [id number] [place] [address] Apr, Fibromyalgia M79.7 and Generalized anxiety disorder F41.[address] [address] Mar, Esophageal reflux K21.9 ; Generalized anxiety disorder F41.1 and Epilepsy G40.909 [place] [id number] [place] [address] Mar, Epilepsy G40.909 ; Esophageal reflux K21.9 ; Fibromyalgia M79.7 ; Generalized anxiety disorder F41.1 ; Pain of left foot M79.672 ; Pain in right foot M79.671 ; Ear pain, right H92.01 ; Tinnitus of both ears H93.13 ; Chronic obstructive pulmonary disease, unspecified COPD type J44.9 ; Vitamin D deficiency E55.9 ; Screening for lipid disorders Z13.220 and On antiepileptic therapy Z79.899 [facility] [id number] [place] [address] Feb, [facility] [id number] [place] [address] Feb, [facility] [id number] [place] [address] Feb, Dysuria R30.0 and Plantar fasciitis of right foot M72.2 [facility] [id number] [place] [address] Feb, [facility] [id number] [place] [address] Feb, [facility] [id number] [place] [address] Jan, [facility] [id number] [place] [address] Jan, [facility] [id number] [place] [address] Dec, [facility] [id number] [place] [address] Dec, [facility] [id number] [place] [address] Dec, [facility] [id number] [place] [address] Nov, [facility] [id number] [place] [address] Sep, [facility] [id number] [place] [address] Aug, Shortness of breath R06.02 and Acute suppurative otitis media of right ear without spontaneous rupture of tympanic membrane, recurrence not specified H66.001 [facility] [id number] [place] [address] 14 Aug, 2015 Internal prolapsed hemorrhoids K64.8 [place] [address] [address] 06 Jun, 2015 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 [place] [address] [address] May, Fibromyalgia M79.7 ; Interstitial cystitis N30.10 ; Intractable migraine without aura and without status migrainosus G43.019 ; Low vitamin D level E55.9 and Ringing in right ear H93.11 [place] [address] [address] May, [place] [address] [address] May, Low vitamin D level E55.9 [place] [address] [address] Apr, [place] [address] [address] Mar, [place] [address] [address] Mar, Acute suppurative otitis media of right ear without spontaneous rupture of tympanic membrane, recurrence not specified H66.001 ; Encounter for immunization Z23 ; Asthma with acute exacerbation, unspecified asthma severity J45.901 ; Memory problem R41.3 ; Acute pain of right knee M25.561 ; Chronic fatigue R53.82 and Excessive urinary volume R35.8 [place] [address] [address] Feb, [place] [address] [address] Feb, [place] [address] [address] Jan, [facility] [address] [place] [address] Nov, Esophageal reflux 530.81 ; Anxiety 300.00 and Tingling in extremities 782.0 [facility] [id number] [place] [address] Oct, [facility] [address] [address] Oct, [facility] [address] [address] Oct, [facility] [address] [address] Oct, [facility] [id number] [place] [address] Oct, [facility] [address] [address] Sep, Other chronic allergic conjunctivitis 372.14 ; Irritable bowel syndrome 564.1 ; 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 ; Fibromyalgia 729.1 ; Extremity pain 729.5 and Neck pain 723.1 [facility] [id number] [place] [address] Sep, [facility] [id number] [place] [address] Aug, [facility] [id number] [place] [address] Aug, [facility] [id number] [place] [address] July, Vomiting 787.03 [facility] [id number] [place] [id number] July, Dental examination V72.2 [facility] [id number] [place] [address] Jun, [facility] [place] [facility] [address] [id number] [place] [address] Jun, [facility] [place] [facility] [address] [id number] [place] [address] May, [facility] [place] [facility] [address] [id number] [place] [address] May, [facility] [place] [facility] [address] [id number] [place] [address] May, [facility] [place] [facility] [address] [id number] [place] [address] May, [facility] [place] [facility] [address] [id number] [place] [address] May, [facility] [place] [facility] [address] [id number] [place] [address] May, [facility] [place] [facility] [address] [id number] [place] [address] May, [facility] [place] [facility] [address] [id number] [place] [address] May, [facility] [place] [facility] [address] [id number] [place] [address] May, [facility] [place] [facility] [address] [facility] [id number] [place] [address] Apr, [facility] [place] [facility] [address] [id number] [place] [address] Apr, 2014 [facility] [place] [facility] [address] [id number] [place] [address] Apr, [facility] [place] [facility] [address] [id number] [place] [address] Apr, [facility] [place] [facility] [address] [id number] [place] [address] 05 Apr, 2014 [facility] [place] [facility] [address] [id number], [place] [address] Apr, [facility] [place] [facility] [address] [id number] [place] [address] Mar, [facility] [place] [facility] [address] [id number] [place] [address] Mar, [facility] [place] [facility] [address] [id number] [place] [address] Mar, [facility] [place] [facility] [address] [id number] [place] [address] Mar, [facility] [place] [facility] [address] [id number] [place] [address] Mar, [facility] [place] [facility] [address] [id number] [place] [address] Mar, [facility] [place] [facility] [address] [id number] [place] [address] Mar, [facility] [place] [facility] [address] [id number] [place] [address] Mar, [facility] [place] [facility] [address] [id number] [place] [address] Mar, [facility] [place] [facility] [address] [id number] [place] [address] Mar, [facility] [place] [facility] [address] [id number], [place] [address] Mar, [facility] [place] [facility] [address] [id number], [place] [address] Mar, [facility] [place] [facility] [address] [id number] [place] [address] Mar, [facility] [place] [facility] [address] [id number] [place] [address] Mar, [facility] [place] [facility] [address] [id number] [place] [address] Mar, [facility] [place] [facility] [address] [id number] [place] [address] 15 Mar, 2014 [facility] [place] [facility] [address] [id number] [place] [address] 15 Mar, 2014 [facility] [place] [facility] [address] [id number] [place] [address] 09 Mar, 2014 [facility] [place] [facility] [address] [id number] [place] [address] Mar, [facility] [place] [facility] [address] [id number] [place] [address] 18 Feb, 2014 [facility] [place] [facility] [address] [id number] [place] [address] Feb, [facility] [place] [facility] [address] [id number] [place] [address] Feb, [facility] [place] [facility] [address] [id number] [place] [address] Feb, [facility] [place] [facility] [address] [id number] [place] [address] Jan, [facility] [place] [facility] [address] [id number] [place] [address] Jan, [facility] [place] [facility] [address] [id number] [place] [address] 14 Jan, 2014 [facility] [place] [facility] [address] [id number] [place] [address] 14 Jan, 2014 [facility] [place] [facility] [address] [id number] [place] [address] 14 Jan, 2014 [facility] [place] [facility] [address] [id number] [place] [address] Jan, [facility] [place] [facility] [address] [id number] [place] [address] Jan, [facility] [place] [facility] [address] [id number] [place] [address] Jan, [facility] [place] [facility] [address] [id number] [place] [address] Dec, [facility] [place] [facility] [address] [id number] [place] [address] Dec, [facility] [place] [facility] [address] [id number] [place] [address] Dec, [facility] [place] [facility] [address] [id number] [place] [address] Dec, [facility] [place] [facility] [address] [id number] [place] [address] 22 Nov, 2013 [facility] [place] [facility] [address] [id number] [place] [address] 22 Nov, 2013 [facility] [place] [facility] [address] [id number] [place] [address] 08 Nov, 2013 [facility] [place] [facility] [address] [id number] [place] [address] 08 Nov, 2013 [facility] [place] [facility] [address] [id number] [place] [address] 05 Sep, 2013 [facility] [place] [facility] [address] [id number] [place] [address] 05 Sep, 2013 [facility] [place] [facility] [address] [id number] [place] [address] 04 Sep, 2013 [facility] [place] [facility] [address] [id number], [place] [address] 04 Sep, 2013 [facility] [place] [facility] [address] [id number] [place] [address] 03 Sep, 2013 [facility] [place] [facility] [address] [id number] [place] [address] 03 Nov, 2013 [facility] [place] [facility] [address] [id number] [place] [address] 15 Oct, 2013 [facility] [place] [facility] [address] [id number] [place] [address] Oct, [facility] [place] [facility] [address] [id number] [place] [address] Sep, [facility] [place] [facility] [address] [id number] [place] [address] Sep, [facility] [place] [facility] [address] [id number] [place] [address] Sep, [facility] [place] [facility] [address] [id number] [place] [address] Sep, [facility] [place] [facility] [address] [id number] [place] [address] Sep, [facility] [place] [facility] [address] [id number] [place] [address] Sep, [facility] [place] [facility] [address] [id number] [place] [address] Aug, [facility] [place] [facility] [address] [id number] [place] [address] Aug, [facility] [place] [facility] [address] [id number] [place] [address] Aug, [facility] [place] [facility] [address] [id number] [place] [address] Aug, [facility] [place] [facility] [address] [id number] [place] [address] Aug, [facility] [place] [facility] [address] [id number] [place] [address] Aug, [facility] [place] [facility] [address] [id number] [place] [address] July, [facility] [place] [facility] [address] [id number] [place] [address] July, [facility] [place] [facility] [address] [id number] [place] [address] July, [facility] [place] [facility] [address] [id number] [place] [address] July, [facility] [place] [facility] [address] [id number] [place] [address] July, [facility] [place] [facility] [address] [id number] [place] [address] July, [facility] [place] [facility] [address] [id number] [place] [address] Jun, [facility] [place] [facility] [address] [id number] [place] [address] Jun, [facility] [place] [facility] [address] [id number] [place] [address] Jun, [facility] [place] [facility] [address] [id number] [place] [address] Jun, [facility] [place] [facility] [address] [id number] [place] [address] May, [facility] [place] [facility] [address] [id number] [place] [address] May, [facility] [place] [facility] [address] [id number] [place] [address] Apr, [facility] [place] [facility] [address] [id number] [place] [address] Apr, [facility] [place] [facility] [address] [id number] [place] [address] Apr, [facility] [place] [facility] [address] [id number] [place] [address] Apr, [facility] [place] [facility] [address] [id number] [place] [address] Mar, [facility] [place] [facility] [address] [id number] [place] [address] Mar, [facility] [place] [facility] [address] [id number] [place] [address] Mar, [facility] [place] [facility] [address] [id number] [place] [address] Mar, [facility] [place] [facility] [address] [id number] [place] [address] Mar, [facility] [place] [facility] [address] [id number] [place] [address] Mar, [facility] [place] [facility] [address] [id number] [place] [address] Feb, [facility] [place] [facility] [address] [id number] [place] [address] Feb, [facility] [place] [facility] [address] [id number] [place] [address] Jan, [facility] [place] [facility] [address] [id number] [place] [address] Jan, [facility] [place] [facility] [address] [id number] [place] [address] Jan, [facility] [place] [facility] [address] [id number] [place] [address] Jan, [facility] [place] [facility] [address] [id number] [place] [address] Nov, [facility] [place] [facility] [address] [id number] [place] [address] Nov, [facility] [place] [facility] [address] [id number] [place] [address] Oct, [facility] [place] [facility] [address] [id number] [place] [address] Oct, [facility] [place] [facility] [address] [id number] [place] [address] Sep, [facility] [place] [facility] [address] [id number] [place] [address] Sep, [facility] [place] [facility] [address] [id number] [place] [address] Sep, [facility] [address] [id number] [place] [address] Aug, [facility] [place] [facility] [address] [id number] [place] [address] Aug, [facility] [address] [id number] [place] [address] Aug, [facility] [address] [id number] [place] [address] Aug, [facility] [address] [id number] [place] [address] July, [facility] [address] [id number] [place] [address] July, [facility] [address] [id number] [place] [address] July, [facility] [address] [id number] [place] [address] July, [facility] [address] [id number] [place] [address] Jun, [facility] [address] [id number] [place] [address] Jun, [facility] [place] [facility] [address] [id number] [place] [address] Jun, [facility] [address] [id number] [place] [address] May, [facility] [place] [facility] [address] [id number] [place] [address] May, [facility] [place] [facility] [address] [id number] [place] [address] Apr, [facility] [place] [facility] [address] [id number] [place] [address] Apr, [facility] [place] [facility] [address] [id number] [place] [address] Apr, [facility] [place] [facility] [address] [id number] [place] [address] Apr, [facility] [place] [facility] [address] [id number] [place] [address] Mar, [facility] [place] [facility] [address] [id number] [place] [address] Mar, [facility] [place] [facility] [address] [id number] [place] [address] Mar, [facility] [place] [facility] [address] [id number] [place] [address] Mar, [facility] [place] [facility] [address] [id number] [place] [address] Feb, [facility] [place] [facility] [address] [id number] [place] [address] Feb, [facility] [place] [facility] [address] [id number] [place] [address] Feb, [facility] [place] [facility] [address] [id number] [place] [address] Feb, [facility] [place] [facility] [address] [id number] [place] [address] Feb, [facility] [place] [facility] [address] [id number] [place] [address] Feb, [facility] [place] [facility] [address] [id number] [place] [address] Feb, [facility] [place] [facility] [address] [id number] [place] [address] Feb, [facility] [place] [facility] [address] [id number] [place] [address] Jan, [facility] [place] [facility] [address] [id number] [place] [address] 28 Jan, 2012 [facility] [place] [facility] [address] [id number] [place] [address] 15 Jan, 2012 [facility] [place] [facility] [address] [id number] [place] [address] 15 Jan, 2012 [facility] [place] [facility] [address] [id number] [place] [address] 14 Jan, 2012 [facility] [place] [facility] [address] [id number] [place] [address] 13 Jan, 2012 [facility] [place] [facility] [address] [id number] [place] [address], [place] [address] 13 Jan, 2012 [facility] [place] [facility] [address] [id number] [place] [address] Jan, [facility] [place] [facility] [address] [facility] [id number] [place] [address] Jan, [facility] [place] [facility] [address] [id number] [place] [address] Jan, [facility] [place] [facility] [address] [id number] [place] [address] Jan, [facility] [place] [facility] [address] [facility] [id number] [place] [address] Dec, [facility] [place] [facility] [address] [id number] [place] [address] Dec, [facility] [place] [facility] [address] [id number] [place] [address] Dec, [facility] [place] [facility] [address] [id number] [place] [address] Dec, [facility] [place] [facility] [address] [facility] [id number] [place] [address] Dec, [facility] [place] [facility] [address] [id number] [place] [address] Dec, [facility] [place] [facility] [address] [id number] [place] [address] Dec, [facility] [place] [facility] [address] [id number] [place] [address] Dec, [facility] [place] [facility] [address] [id number] [place] [address] Dec, [facility] [place] [facility] [address] [id number] [place] [address] Dec, [facility] [place] [facility] [address] [id number] [place] [address] Dec, [facility] [place] [facility] [address] [id number] [place] [address] Dec, [facility] [place] [facility] [address] [id number] [place] [address] Nov, [facility] [place] [facility] [address] [id number] [place] [address] Oct, [facility] [place] [facility] [address] [id number] [place] [address] Oct, [facility] [place] [facility] [address] [id number] [place] [address] Oct, [facility] [place] [facility] [address] [id number] [place] [address] Oct, [facility] [place] [facility] [address] [id number], [place] [address] Sep, [facility] [place] [facility] [address] [id number] [place] [address] Sep, [facility] [place] [facility] [address] [id number] [place] [address] Sep, [facility] [place] [facility] [address] [id number] [place] [address] Sep, [facility] [place] [facility] [address] [id number], [place] [address] Aug, [facility] [id number], [place] [address] Aug, [facility] [id number], [place] [address] Aug, [facility] [id number], [place] [address] Aug, [facility] [id number], [place] [address] Aug, [facility] [id number], [place] [address] July, [facility] [id number], [place] [address] July, [facility] [id number], [place] [address] July, [facility] [address] [id number] [address] Dec, IMMUNIZATIONS No Known Immunizations SOCIAL HISTORY Never Assessed REASON FOR VISIT PLAN OF CARE VITAL SIGNS MEDICATIONS Unknown Medications RESULTS No Results PROCEDURES Procedure Date Ordered Result Body Site ASSAY OF ACTH Jan 26, 2012 VENIPUNCT, ROUTINE* Jan 26, 2012 INSTRUCTIONS MEDICATIONS ADMINISTERED No Known Medications MEDICAL (GENERAL) HISTORY Type Description Date Medical History epilepsy Medical History interstitial cystitis Surgical History hysterectomy Surgical History breast biopsy w/ Dr. Hickey 2009 Surgical History cholecystectomy 2012 Surgical History tonsillectomy Surgical History tubal ligation Surgical History urethral stretching 2008 Surgical History section Hospitalization History surgical purposes
--- OUTSIDE RECORDS SUMMARY | 2018-10-24 12:01 | XMS REPORT ---
Author Author NELSON DIANN [facility] Address [address] [place] [address] Care Team Providers Care Professor Of Economics Name Role Phone DORIS DAMONY Unavailable PROBLEMS Type Condition ICD9-CM Code [id number] Code Onset Dates Condition Status SNOMED Code Problem Chronic periodontal disease K05.6 Active 8419401 Problem MRSA (methicillin resistant staph aureus) culture positive Z22.322 Active 968328837 Problem Interstitial cystitis N30.10 Active 343553400 Problem Epilepsy G40.909 Active 56471891 Problem Esophageal reflux K21.9 Active 341845398 Problem Major depressive disorder F32.9 Active 413805363 Problem Lumbago M54.5 Active 311926827 Problem Generalized anxiety disorder F41.1 Active 817217891 Problem Tinnitus of both ears H93.13 Active 5992594991013 Problem Chronic obstructive pulmonary disease, unspecified COPD type J44.9 Active 48312749 Problem On antiepileptic therapy Z79.899 Active 753874280 Problem Paresthesia of skin R20.2 Active 60436680 Problem Irritable bowel syndrome without diarrhea K58.9 Active 61122840 Problem Paresthesia R20.2 Active 72324977 Problem Fibromyalgia M79.7 Active 27948249 Problem Vitamin D deficiency E55.9 Active 35403121 Problem Irritable bowel syndrome with diarrhea K58.0 Active 867195558 Problem Menopausal symptoms N95.1 Active 10518370 Problem COPD exacerbation J44.1 Active 038847921 ALLERGIES No Information ENCOUNTERS Encounter Location Date Diagnosis [facility] [address] [facility] [id number] [address] Sep, [facility] [address] [facility] [id number] [address] Sep, [facility] [address] [facility] [id number], [place] [address] Sep, [facility] [address], [place] [address] Sep, Rectal pain K62.89 [facility] [address] [address] Aug, [address] [address] Aug, Well woman exam (no gynecological exam) Z00.[address] [address] Aug, [facility] [address]65[place] [address] Aug, Well woman exam (no gynecological exam) Z00.00 and Hemorrhoids, unspecified hemorrhoid type K64.[address] [address] Aug, [facility] [address], [place] [address] July, Dysuria R30.0 ; Bleeding hemorrhoids K64.[address] [facility] [address], [place] [address] July, [facility] [address], [place] [address] July, [address]uria R30.0 [facility] [address], [place] [address] July, Paresthesia R20.2 [facility] [address], [place] [address] July, [facility] [address]65[place], [place] [address] July, Fibromyalgia M79.7 and Generalized anxiety disorder F41.1 [facility] [address]65[address], [place] [address] July, [facility] [id number] [place] [address] Jun, [facility] [address] [address] Jun, Dysuria R30.0 ; Major depressive disorder F32.9 ; Interstitial cystitis N30.10 ; Vitamin D deficiency E55.9 ; Hematochezia K92.1 ; Paresthesia of skin R20.[address] [facility] [address] [address] Jun, Fibromyalgia M79.7 [place] [address] [address] May, Fibromyalgia M79.7 [facility] [address] [address] Apr, [facility] [address] [address] Mar, Fibromyalgia M79.7 [facility] [address] [address] Feb, Fibromyalgia M79.7 [facility] [id number] [place] [address] Feb, Acute cystitis with hematuria N30.01 [place] [id number] [place] [address] Feb, Acute cystitis with hematuria N30.01 ; COPD exacerbation J44.1 ; Interstitial cystitis N30.10 ; Nausea R11.0 and Rectal bleeding K62.5 [facility] [id number] [place] [address] Jan, Fibromyalgia M79.7 [facility] [id number] [place] [id number] Dec, [facility] [id number] [place] [id number] Dec, [place] [id number] [place] [address] Dec, Fibromyalgia M79.7 [facility] [address] [address] Dec, [facility] [id number] [place] [address] Oct, [facility] [address] [id number] Oct, [facility] [address] [address] Oct, [facility] [address] [address] Sep, [facility] [address] [address] Sep, [facility] [id number] [place] [address] Sep, [facility] [id number] [place] [address] [id number] Aug, Dental examination Z01.20 [facility] [id number] [place] [address] Aug, Abscess of axilla, left L02.412 [facility] [address] [address] Aug, Esophageal reflux K21.9 [facility] [id number] [place] [address] Aug, [facility] [address] [address] Aug, Esophageal reflux K21.9 ; Fluid level behind tympanic membrane of right ear H65.91 ; Fibromyalgia M79.[address] [facility] [address] [address] Aug, Esophageal reflux K21.9 [facility] [address], [place] [address] July, [facility] [id number] [place] [address] July, [facility] [address]65[address], [place] [address] July, Chronic obstructive pulmonary disease, unspecified COPD type J44.9 [facility] [id number] [place] [address] July, [facility] [id number] [place] [address] July, [facility] [id number] [place] [address] July, Interstitial cystitis N30.10 ; Fibromyalgia M79.7 [...] Dysuria R30.0 and Generalized anxiety disorder F41.1 [place] [address]65[place], [place] [address] Jun, [facility] [address], [place] [address] Jun, Chronic obstructive pulmonary disease, unspecified COPD type J44.9 ; COPD exacerbation J44.1 [address] Sore throat J02.9 [facility] [address], [place] [address] Jun, Fibromyalgia M79.7 [facility] [address] [place] [address] Jun, Fibromyalgia M79.7 [facility] [address], [place] [address] May, [facility] [id number] [place] [address] May, [facility] [id number] [place] [address] May, Fibromyalgia M79.7 [facility] [id number] [place] [address] Mar, [facility] [id number] [place] [address] Mar, Epilepsy G40.909 ; Lumbago M54.5 ; Esophageal reflux K21.9 ; Fibromyalgia M79.7 ; Chronic obstructive pulmonary disease, unspecified COPD type J44.9 ; Vitamin D deficiency E55.9 ; Fluid level behind tympanic membrane of right ear H65.91 ; Irritable bowel syndrome with diarrhea K58.0 ; Hematochezia K92.1 and Generalized anxiety disorder F41.1 [facility] [id number] [place] [address] Mar, [facility] [id number] [place] [address] Mar, [facility] [id number] [place] [address] Mar, Vitamin D deficiency E55.9 [facility] [address], [place] [address] Feb, [facility] [address] [id number], [place] [address] Feb, [facility] [id number] [place] [address] Jan, Fibromyalgia M79.7 [facility] [address], [place] [address] Jan, [facility] [id number] [place] [address] Jan, [facility] [address] [address] Jan, Vitamin D deficiency E55.9 [facility] [id number] [place] [address] Dec, [facility] [address] [address] Dec, [facility] [address] [address] Dec, Generalized anxiety disorder F41.1 [place] [address] [address] Dec, Dysuria R30.0 ; Acute bilateral low back pain without sciatica M54.5 and Encounter for immunization Z23 [place] [address] [address] Oct, [place] [address] [address] Oct, Fibromyalgia M79.7 [place] [id number] [place] [address] Sep, Dysuria R30.0 and Acute bronchitis, unspecified organism J20.9 [place] [id number] [place] [address] Sep, [facility] [id number] [place] [address] Sep, Rectal prolapse K62.3 [place] [address] [address] Sep, Chronic obstructive pulmonary disease, unspecified COPD type J44.9 [facility] [id number] [place] [id number] Aug, [facility] [address] [place] [id number] Aug, [place] [id number] [place] [address] Aug, Light headedness R42 ; On antiepileptic therapy Z79.899 ; Vitamin D deficiency E55.9 ; Screening for lipid disorders Z13.220 ; Dysuria R30.0 and Hemorrhoids, unspecified hemorrhoid type K64.9 [place] [address] [address] Aug, Internal prolapsed hemorrhoids K64.8 [place] [id number] [place] [address] July, [place] [address] [address] May, [address] [address] May, Fever and chills R50.9 and Influenza B J10.1 [place] [id number] [place] [address] Apr, [place] [id number] [place] [address] Apr, Fibromyalgia M79.7 and Generalized anxiety disorder F41.1 [place] [id number] [place] [address] Mar, Esophageal reflux K21.9 ; Generalized anxiety disorder F41.1 and Epilepsy G40.909 [place] [id number] [place] [address] Mar, Epilepsy G40.909 ; Esophageal reflux K21.9 ; Fibromyalgia M79.7 ; Generalized anxiety disorder F41.1 ; Pain of left foot M79.672 ; Pain in right foot M79.671 ; Ear pain, right H92.01 ; Tinnitus of both ears H93.13 ; Chronic obstructive pulmonary disease, unspecified COPD type J44.9 ; Vitamin D deficiency E55.9 ; Screening for lipid disorders Z13.220 and On antiepileptic therapy Z79.899 [facility] [id number] [place] [address] Feb, [facility] [id number] [place] [address] Feb, [facility] [id number] [place] [address] Feb, Dysuria R30.0 and Plantar fasciitis of right foot M72.2 [facility] [id number] [place] [address] Feb, [facility] [id number] [place] [address] Feb, [facility] [id number] [place] [address] Jan, [facility] [id number] [place] [address] Jan, [facility] [id number] [place] [address] Dec, [facility] [id number] [place] [address] Dec, [facility] [id number] [place] [address] Dec, [facility] [id number] [place] [address] Nov, [facility] [id number] [place] [address] Sep, [facility] [id number] [place] [address] Aug, Shortness of breath R06.02 and Acute suppurative otitis media of right ear without spontaneous rupture of tympanic membrane, recurrence not specified H66.001 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 [place] [id number] [place] [address] May, Fibromyalgia M79.7 ; Interstitial cystitis N30.10 ; Intractable migraine without aura and without status migrainosus G43.019 ; Low vitamin D level E55.9 and Ringing in right ear H93.11 [place] [address] [address] May, [place] [address] [address] May, Low vitamin D level E55.9 [place] [address] [address] Apr, [place] [id number] [place] [address] Mar, [place] [address] [address] Mar, Acute suppurative otitis media of right ear without spontaneous rupture of tympanic membrane, recurrence not specified H66.001 ; Encounter for immunization Z23 ; Asthma with acute exacerbation, unspecified asthma severity J45.901 ; Memory problem R41.3 ; Acute pain of right knee M25.561 ; Chronic fatigue R53.82 and Excessive urinary volume R35.8 [place] [id number] [place] [address] Feb, [place] [address] [address] Feb, [place] [id number] [place] [address] Jan, [place] [id number] [place] [address] Nov, Esophageal reflux 530.81 ; Anxiety 300.00 and Tingling in extremities 782.0 [facility] [id number] [place] [address] Oct, [facility] [id number] [place] [address] Oct, [facility] [id number] [place] [address] Oct, [facility] [id number] [place] [address] Oct, [facility] [id number] [place] [address] Oct, 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 [id number] [place] [address] Sep, [facility] [id number] [place] [address] Aug, [facility] [id number] [place] [address] Aug, [facility] [id number] [place] [address] July, Vomiting 787.03 [facility] [id number] [place] [id number] July, Dental examination V72.2 [facility] [id number] [place] [address] Jun, [facility] [address] [address] 13 Jun, 2014 [facility] [place] [facility] [address] [id number] [place] [address] May, [facility] [place] [facility] [address] [id number] [place] [address] May, [facility] [place] [facility] [address] [id number] [place] [address] May, [facility] [place] [facility] [address] [id number] [place] [address] May, [facility] [place] [facility] [address] [id number] [place] [address] May, [facility] [place] [facility] [address] [facility] [id number] [place] [address] May, [facility] [place] [facility] [address] [id number] [place] [address] May, [facility] [place] [facility] [address] [id number] [place] [address] May, [facility] [place] [facility] [address] [id number] [place] [address] May, [facility] [place] [facility] [address] [facility] [id number] [place] [address] Apr, 2014 [facility] [place] [facility] [address] [id number] [place] [address] 11 Apr, 2014 [facility] [place] [facility] [address] [id number] [place] [address] Apr, 2014 [facility] [place] [facility] [address] [id number] [place] [address] Apr, 2014 [facility] [place] [facility] [address] [id number] [place] [address] 05 Apr, 2014 [facility] [place] [facility] [address] [id number] [place] [address] Apr, [facility] [place] [facility] [address] [id number] [place] [address] Mar, [facility] [place] [facility] [address] [id number] [place] [address] Mar, [facility] [place] [facility] [address] [id number] [place] [address] Mar, [facility] [place] [facility] [address] [id number] [place] [address] Mar, [facility] [place] [facility] [address] [id number] [place] [address] Mar, [facility] [place] [facility] [address] [id number] [place] [address] Mar, [facility] [place] [facility] [address] [id number] [place] [address] Mar, [facility] [place] [facility] [address] [id number], [place] [address] Mar, [facility] [place] [facility] [address] [id number], [place] [address] Mar, [facility] [place] [facility] [address] [id number] [place] [address] Mar, [facility] [place] [facility] [address] [id number], [place] [address] Mar, [facility] [place] [facility] [address] [id number], [place] [address] Mar, [facility] [place] [facility] [address] [id number], [place] [address] Mar, [facility] [place] [facility] [address] [id number], [place] [address] Mar, [facility] [place] [facility] [address] [id number], [place] [address] Mar, [facility] [place] [facility] [address] [id number] [place] [address] 15 Mar, 2014 [facility] [address] [id number] [place] [address] 15 Mar, 2014 [facility] [place] [facility] [address] [id number] [place] [address] 09 Mar, 2014 [facility] [address] [id number] [place] [address] Mar, [facility] [place] [facility] [address] [id number] [place] [address] 18 Feb, 2014 [facility] [address] [id number] [place] [address] 18 Feb, 2014 [facility] [address] [id number] [place] [address] Feb, [facility] [address] [id number] [place] [address] Feb, [facility] [address] [id number] [place] [address] Jan, [facility] [place] [facility] [address] [id number] [place] [address] 20 Jan, 2014 [facility] [address] [id number] [place] [address] 14 Jan, 2014 [facility] [place] [facility] [address] [id number] [place] [address] 14 Jan, 2014 [facility] [place] [facility] [address] [id number] [place] [address] 14 Jan, 2014 [facility] [place] [facility] [address] [id number] [place] [address] 14 Jan, 2014 [facility] [place] [facility] [address] [id number] [place] [address] 07 Jan, 2014 [facility] [place] [facility] [address] [id number] [place] [address] Jan, [facility] [place] [facility] [address] [id number] [place] [address] Dec, [facility] [place] [facility] [address] [id number] [place] [address] Dec, [facility] [place] [facility] [address] [id number] [place] [address] Dec, [facility] [place] [facility] [address] [id number] [place] [address] Dec, [facility] [place] [facility] [address] [id number] [place] [address] 22 Nov, 2013 [facility] [place] [facility] [address] [id number] [place] [address] 22 Nov, 2013 [facility] [place] [facility] [address] [id number] [place] [address] 08 Nov, 2013 [facility] [place] [facility] [address] [id number] [place] [address] 08 Sep, 2013 [facility] [place] [facility] [address] [id number] [place] [address] 05 Sep, 2013 [facility] [place] [facility] [address] [id number] [place] [address] 05 Sep, 2013 [facility] [place] [facility] [address] [id number] [place] [address] 04 Sep, 2013 [facility] [place] [facility] [address] [id number] [address] 04 Sep, 2013 [facility] [place] [facility] [address] [id number] [place] [address] 03 Sep, 2013 [facility] [place] [facility] [address] [id number] [place] [address] 03 Nov, 2013 [facility] [place] [facility] [address] [id number] [place] [address] 15 Oct, 2013 [facility] [place] [facility] [address] [id number], [place] [address] Oct, [facility] [place] [facility] [address] [id number] [place] [address] Sep, [facility] [place] [facility] [address] [id number] [place] [address] Sep, [facility] [place] [facility] [address] [id number] [place] [address] Sep, [facility] [place] [facility] [address] [id number] [place] [address] Sep, [facility] [place] [facility] [address] [id number] [place] [address] Sep, [facility] [place] [facility] [address] [id number] [place] [address] Sep, [facility] [place] [facility] [address] [id number] [place] [address] Aug, [facility] [place] [facility] [address] [id number] [place] [address] Aug, [facility] [place] [facility] [address] [id number] [place] [address] Aug, [facility] [place] [facility] [address] [id number] [place] [address] Aug, [facility] [place] [facility] [address] [id number] [place] [address] Aug, [facility] [place] [facility] [address] [id number] [place] [address] Aug, [facility] [place] [facility] [address] [id number] [place] [address] July, [facility] [place] [facility] [address] [id number] [place] [address] July, [facility] [place] [facility] [address] [id number] [place] [address] July, [facility] [place] [facility] [address] [id number] [place] [address] July, [facility] [place] [facility] [address] [id number] [place] [address] July, [facility] [place] [facility] [address] [id number] [place] [address] July, [facility] [place] [facility] [address] [id number] [place] [address] Jun, [facility] [place] [facility] [address] [id number] [place] [address] Jun, [facility] [place] [facility] [address] [id number] [place] [address] Jun, [facility] [place] [facility] [address] [address] [id number] [place] [address] Jun, [facility] [place] [facility] [address] [id number] [place] [address] May, [facility] [place] [facility] [address] [id number] [place] [address] May, [facility] [place] [facility] [address] [id number] [place] [address] Apr, [facility] [place] [facility] [address] [id number] [place] [address] Apr, [facility] [place] [facility] [address] [id number] [place] [address] Apr, [facility] [place] [facility] [address] [id number] [place] [address] Apr, [facility] [place] [facility] [address] [id number] [place] [address] Mar, [facility] [place] [facility] [address] [id number] [place] [address] Mar, [facility] [place] [facility] [address] [id number] [place] [address] Mar, [facility] [place] [facility] [address] [id number] [place] [address] Mar, [facility] [place] [facility] [address] [id number] [place] [address] Mar, [facility] [place] [facility] [address] [id number] [place] [address] Mar, [facility] [place] [facility] [address] [id number] [place] [address] Feb, [facility] [place] [facility] [address] [id number] [place] [address] Feb, [facility] [place] [facility] [address] [id number] [place] [address] Jan, [facility] [place] [facility] [address] [id number] [place] [address] Jan, [facility] [place] [facility] [address] [id number] [place] [address] Jan, [facility] [place] [facility] [address] [id number] [place] [address] Jan, [facility] [place] [facility] [address] [id number] [place] [address] Nov, [facility] [place] [facility] [address] [id number] [place] [address] Nov, [facility] [place] [facility] [address] [id number] [address] Oct, [facility] [place] [facility] [address] [id number] [place] [address] Oct, [facility] [place] [facility] [address] [id number] [place] [address] Sep, [facility] [place] [facility] [address] [id number] [place] [address] Sep, [facility] [place] [facility] [address] [id number] [place] [address] Sep, [facility] [address] [id number] [place] [address] Aug, [facility] [address] [id number] [place] [address] Aug, [facility] [address] [id number] [place] [address] Aug, [facility] [address] [id number] [place] [address] Aug, [facility] [address] [id number] [place] [address] July, [facility] [address] [id number] [place] [address] July, [facility] [address] [id number] [place] [address] July, [facility] [address] [id number] [place] [address] July, [facility] [address] [id number] [place] [address] Jun, [facility] [address] [id number] [place] [address] Jun, [facility] [address] [id number] [place] [address] Jun, [facility] [address] [id number] [place] [address] May, [facility] [address] [id number] [place] [address] May, [facility] [address] [id number] [place] [address] Apr, [facility] [address] [id number] [place] [address] Apr, [facility] [address] [id number] [place] [address] Apr, [facility] [place] [facility] [address] [id number] [place] [address] Apr, [facility] [place] [facility] [address] [id number] [place] [address] Mar, [facility] [place] [facility] [address] [id number] [place] [address] Mar, [facility] [address] [id number] [place] [address] Mar, [facility] [place] [facility] [address] [id number] [place] [address] Mar, [facility] [address] [id number] [place] [address] Feb, [facility] [place] [facility] [address] [id number] [place] [address] Feb, [facility] [place] [facility] [address] [id number] [place] [address] Feb, [facility] [place] [facility] [address] [id number] [place] [address] Feb, [facility] [place] [facility] [address] [id number] [place] [address] Feb, [facility] [place] [facility] [address] [id number], [place] [address] Feb, [facility] [place] [facility] [address] [id number] [place] [address] Feb, [facility] [place] [facility] [address] [id number] [place] [address] Feb, [facility] [place] [facility] [address] [id number] [place] [address] Jan, [facility] [place] [facility] [address] [id number] [place] [address] 28 Jan, 2012 [facility] [place] [facility] [address] [id number] [place] [address] 15 Jan, 2012 [facility] [place] [facility] [address] [id number] [place] [address] 15 Jan, 2012 [facility] [place] [facility] [address] [id number] [place] [address] 14 Jan, 2012 [facility] [place] [facility] [address] [id number] [place] [address] 13 Jan, 2012 [facility] [place] [facility] [address] [id number] [place] [address] 13 Jan, 2012 [facility] [place] [facility] [address] [id number] [place] [address] 12 Jan, 2012 [facility] [place] [facility] [address] [facility] [id number] [place] [address] 12 Jan, 2012 [facility] [place] [facility] [address] [id number] [place] [address] Jan, [facility] [place] [facility] [address] [id number] [place] [address] Jan, [facility] [place] [facility] [address] [facility] [id number] [place] [address] Dec, [facility] [place] [facility] [address] [id number] [place] [address] 31 Dec, 2011 [facility] [place] [facility] [address] [id number], [place] [address] 29 Dec, 2011 [facility] [place] [facility] [address] [id number] [place] [address] 29 Dec, 2011 [facility] [place] [facility] [address] [facility] [id number] [place] [address] 29 Dec, 2011 [facility] [place] [facility] [address] [facility] [id number], [place] [address] 29 Dec, 2011 [facility] [place] [facility] [address] [id number] [place] [address] Dec, [facility] [place] [facility] [address] [id number] [place] [address] Dec, [facility] [place] [facility] [address] [id number] [place] [address] Dec, [facility] [place] [facility] [address] [id number] [place] [address] Dec, [facility] [place] [facility] [address] [id number] [place] [address] Dec, [facility] [place] [facility] [address] [id number] [place] [address] Dec, [facility] [place] [facility] [address] [id number] [place] [address] Nov, [facility] [place] [facility] [address] [id number] [place] [address] Oct, [facility] [place] [facility] [address] [id number] [place] [address] Oct, [facility] [place] [facility] [address] [id number] [place] [address] Oct, [facility] [place] [facility] [address] [id number] [place] [address] Oct, [facility] [place] [facility] [address] [id number] [place] [address] Sep, [facility] [place] [facility] [address] [id number] [place] [address] Sep, [facility] [place] [facility] [address] [id number] [place] [address] Sep, [facility] [place] [facility] [address] [id number] [place] [address] Sep, [facility] [place] [facility] [address] [id number] [place] [address] Aug, [facility] [address] [id number] [address] Aug, [facility] [id number] [address] Aug, [facility] [id number] [address] Aug, [facility] [id number] [address] Aug, [facility] [id number] [address] July, [facility] [id number] [address] July, [facility] [id number], [place] [address] July, [facility] [address] [id number], [place] [address] Dec, IMMUNIZATIONS No Known Immunizations SOCIAL HISTORY [...]
--- OUTSIDE RECORDS SUMMARY | 2018-10-24 12:02 | XMS REPORT ---
Author Author NELSON DIANN [facility] Address [address] [place] [address] Care Team Providers Care Building Cleaner Name Role Phone DORIS DAMONY Unavailable PROBLEMS Type Condition ICD9-CM Code GXB05-CO Code Onset Dates Condition Status SNOMED Code Problem Chronic periodontal disease K05.6 Active 6799833 Problem MRSA (methicillin resistant staph aureus) culture positive Z22.322 Active 871421555 Problem Interstitial cystitis N30.10 Active 544261490 Problem Epilepsy G40.909 Active 53573505 Problem Esophageal reflux K21.9 Active 594963409 Problem Major depressive disorder F32.9 Active 577105263 Problem Lumbago M54.5 Active 545731574 Problem Generalized anxiety disorder F41.1 Active 686314714 Problem Tinnitus of both ears H93.13 Active [id number] Problem Chronic obstructive pulmonary disease, unspecified COPD type J44.9 Active 63871335 Problem On antiepileptic therapy Z79.899 Active 490026181 Problem Paresthesia of skin R20.2 Active 74316612 Problem Irritable bowel syndrome without diarrhea K58.9 Active 19475906 Problem Paresthesia R20.2 Active 55945959 Problem Fibromyalgia M79.7 Active 06767318 Problem Vitamin D deficiency E55.9 Active 73125807 Problem Irritable bowel syndrome with diarrhea K58.0 Active 774587939 Problem Menopausal symptoms N95.1 Active 52942124 Problem COPD exacerbation J44.1 Active 395588466 ALLERGIES No Information ENCOUNTERS Encounter Location Date Diagnosis [facility] [address] [facility] [id number] [address] Sep, [facility] [address] [facility] [id number], [place] [address] Sep, [facility] [address] [facility] [facility] [facility] [id number], [place] [address] Sep, [facility] [address] [address] Sep, Rectal pain K62.89 [facility] [address] [address] Aug, [address] [address] Aug, Well woman exam (no gynecological exam) Z00.[address] [address] Aug, [facility] [address] [address] Aug, Well woman exam (no gynecological exam) Z00.00 and Hemorrhoids, unspecified hemorrhoid type K64.[address] [address] Aug, [facility] [address], [place] [address] July, Dysuria R30.0 ; Bleeding hemorrhoids K64.9 and Hematochezia K92.1 [facility] [address], [place] [address] July, [facility] [address], [place] [address] July, Dysuria R30.0 [facility] [address], [place] [address] July, Paresthesia R20.2 [facility] [address], [place] [address] July, [facility] [address], [place] [address] July, Fibromyalgia M79.7 and Generalized anxiety disorder F41.1 [facility] [address], [place] [address] July, [facility] [id number] [place] [address] Jun, [facility] [address] [address] Jun, Dysuria R30.0 ; Major depressive disorder F32.9 ; Interstitial cystitis N30.10 ; Vitamin D deficiency E55.9 ; Hematochezia K92.1 ; Paresthesia of skin R20.2 and Weight loss R63.4 [facility] [address] [address] Jun, Fibromyalgia M79.7 [place] [address] [address] May, Fibromyalgia M79.7 [facility] [address] [address] Apr, [facility] [address] [address] Mar, Fibromyalgia M79.7 [facility] [address] [address] Feb, Fibromyalgia M79.7 [facility] [id number] [place] [address] Feb, Acute cystitis with hematuria N30.01 [place] [id number] [place] [address] Feb, Acute cystitis with hematuria N30.01 ; COPD exacerbation J44.1 ; Interstitial cystitis N30.10 ; Nausea R11.0 and Rectal bleeding K62.5 [facility] [id number] [place] [address] Jan, Fibromyalgia M79.7 [facility] [id number] [place] [id number] Dec, [facility] [id number] [place] [id number] Dec, [place] [id number] [place] [address] Dec, Fibromyalgia M79.7 [facility] [address] [address] Dec, [facility] [id number] [place] [address] Oct, [facility] [address] [id number] Oct, [facility] [address] [address] Oct, [facility] [address] [address] Sep, [facility] [address] [address] Sep, [facility] [id number] [place] [address] Sep, [facility] [id number] [place] [id number] Aug, Dental examination Z01.20 [facility] [id number] [place] [address] Aug, Abscess of axilla, left L02.412 [facility] [address] [address] Aug, Esophageal reflux K21.9 [facility] [id number] [place] [address] Aug, [facility] [address] [address] Aug, Esophageal reflux K21.9 ; Fluid level behind tympanic membrane of right ear H65.91 ; Fibromyalgia M79.7 and Lumbago M54.5 [facility] [address] [address] Aug, Esophageal reflux K21.9 [facility] [address], [place] [address] July, [facility] [id number] [place] [address] July, [facility] [address], [place] [address] July, Chronic obstructive pulmonary disease, unspecified COPD type J44.9 [facility] [id number] [place] [address] July, [facility] [id number] [place] [address] July, [facility] [id number] [place] [address] July, Interstitial cystitis N30.10 ; Fibromyalgia M79.7 [...] Dysuria R30.0 and Generalized anxiety disorder F41.1 [place] [address] [address] Jun, [facility] [address], [place] [address] Jun, Chronic obstructive pulmonary disease, unspecified COPD type J44.9 ; COPD exacerbation J44.1 and Sore throat J02.9 [facility] [address], [place] [address] Jun, Fibromyalgia M79.7 [facility] [address] [place] [address] Jun, Fibromyalgia M79.7 [facility] [address], [place] [address] May, [facility] [id number] [place] [address] May, [facility] [id number] [place] [address] May, Fibromyalgia M79.7 [facility] [id number] [place] [address] Mar, [facility] [id number] [place] [address] Mar, Epilepsy G40.909 ; Lumbago M54.5 ; Esophageal reflux K21.9 ; Fibromyalgia M79.7 ; Chronic obstructive pulmonary disease, unspecified COPD type J44.9 ; Vitamin D deficiency E55.9 ; Fluid level behind tympanic membrane of right ear H65.91 ; Irritable bowel syndrome with diarrhea K58.0 ; Hematochezia K92.1 and Generalized anxiety disorder F41.1 [facility] [id number] [place] [address] Mar, [facility] [id number] [place] [address] Mar, [facility] [id number] [place] [address] Mar, Vitamin D deficiency E55.9 [facility] [address], [place] [address] Feb, [facility] [id number], [place] [address] Feb, [facility] [id number] [place] [address] Jan, Fibromyalgia M79.7 [facility] [address], [place] [address] Jan, [facility] [id number] [place] [address] Jan, [facility] [address] [address] Jan, Vitamin D deficiency E55.9 [facility] [id number] [place] [address] Dec, [facility] [address] [address] Dec, [facility] [address] [address] Dec, Generalized anxiety disorder F41.1 [place] [address] [address] Dec, Dysuria R30.0 ; Acute bilateral low back pain without sciatica M54.5 and Encounter for immunization Z23 [place] [address] [address] Oct, [place] [address] [address] Oct, Fibromyalgia M79.7 [place] [id number] [place] [address] Sep, Dysuria R30.0 and Acute bronchitis, unspecified organism J20.9 [place] [id number] [place] [address] Sep, [facility] [id number] [place] [address] Sep, Rectal prolapse K62.3 [place] [address] [address] Sep, Chronic obstructive pulmonary disease, unspecified COPD type J44.9 [facility] [id number] [place] [id number] Aug, [facility] [address] [place] [id number] Aug, [place] [id number] [place] [address] Aug, Light headedness R42 ; On antiepileptic therapy Z79.899 ; Vitamin D deficiency E55.9 ; Screening for lipid disorders Z13.220 ; Dysuria R30.0 and Hemorrhoids, unspecified hemorrhoid type K64.9 [place] [address] [address] Aug, Internal prolapsed hemorrhoids K64.8 [place] [id number] [place] [address] July, [place] [address] [address] May, [address] [address] May, Fever and chills R50.9 and Influenza B J10.1 [place] [id number] [place] [address] Apr, [place] [id number] [place] [address] Apr, Fibromyalgia M79.7 and Generalized anxiety disorder F41.1 [place] [id number] [place] [address] Mar, Esophageal reflux K21.9 ; Generalized anxiety disorder F41.1 and Epilepsy G40.909 [place] [id number] [place] [address] Mar, Epilepsy G40.909 ; Esophageal reflux K21.9 ; Fibromyalgia M79.7 ; Generalized anxiety disorder F41.1 ; Pain of left foot M79.672 ; Pain in right foot M79.671 ; Ear pain, right H92.01 ; Tinnitus of both ears H93.13 ; Chronic obstructive pulmonary disease, unspecified COPD type J44.9 ; Vitamin D deficiency E55.9 ; Screening for lipid disorders Z13.220 and On antiepileptic therapy Z79.899 [facility] [id number] [place] [address] Feb, [facility] [id number] [place] [address] Feb, [facility] [id number] [place] [address] Feb, Dysuria R30.0 and Plantar fasciitis of right foot M72.2 [facility] [id number] [place] [address] Feb, [facility] [id number] [place] [address] Feb, [facility] [id number] [place] [address] Jan, [facility] [id number] [place] [address] Jan, [facility] [id number] [place] [address] Dec, [facility] [id number] [place] [address] Dec, [facility] [id number] [place] [address] Dec, [facility] [id number] [place] [address] Nov, [facility] [id number] [place] [address] Sep, [facility] [id number] [place] [address] Aug, Shortness of breath R06.02 and Acute suppurative otitis media of right ear without spontaneous rupture of tympanic membrane, recurrence not specified H66.001 [facility] [id number] [place] [address] 14 Aug, 2015 Internal prolapsed hemorrhoids K64.8 [place] [address] [address] 06 Jun, 2015 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 [place] [id number] [place] [address] May, Fibromyalgia M79.7 ; Interstitial cystitis N30.10 ; Intractable migraine without aura and without status migrainosus G43.019 ; Low vitamin D level E55.9 and Ringing in right ear H93.11 [place] [address] [address] May, [place] [address] [address] May, Low vitamin D level E55.9 [place] [address] [address] Apr, [place] [id number] [place] [address] Mar, [place] [address] [address] Mar, Acute suppurative otitis media of right ear without spontaneous rupture of tympanic membrane, recurrence not specified H66.001 ; Encounter for immunization Z23 ; Asthma with acute exacerbation, unspecified asthma severity J45.901 ; Memory problem R41.3 ; Acute pain of right knee M25.561 ; Chronic fatigue R53.82 and Excessive urinary volume R35.8 [place] [id number] [place] [address] Feb, [place] [address] [address] Feb, [place] [id number] [place] [address] Jan, [place] [id number] [place] [address] Nov, Esophageal reflux 530.81 ; Anxiety 300.00 and Tingling in extremities 782.0 [facility] [id number] [place] [address] Oct, [facility] [id number] [place] [address] Oct, [facility] [id number] [place] [address] Oct, [facility] [id number] [place] [address] Oct, [facility] [id number] [place] [address] Oct, [facility] [id number] [place] [address] Sep, Other chronic allergic conjunctivitis 372.14 ; Irritable bowel syndrome 564.1 ; 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 [id number] [place] [id number] July, Dental examination V72.2 [facility] [id number] [place] [address] Jun, [facility] [address] [place] [address] 13 Jun, 2014 [facility] [place] [facility] [address] [id number] [place] [address] May, [facility] [place] [facility] [address] [id number] [place] [address] May, [facility] [place] [facility] [address] [id number] [place] [address] May, [facility] [place] [facility] [address] [id number] [place] [address] May, [facility] [place] [facility] [address] [id number] [place] [address] May, [facility] [place] [facility] [address] [facility] [id number] [place] [address] May, [facility] [place] [facility] [address] [id number] [place] [address] May, [facility] [place] [facility] [address] [id number] [place] [address] May, [facility] [place] [facility] [address] [id number] [place] [address] May, [facility] [place] [facility] [address] [facility] [id number] [place] [address] Apr, 2014 [facility] [place] [facility] [address] [id number] [place] [address] 11 Apr, 2014 [facility] [place] [facility] [address] [id number] [place] [address] Apr, 2014 [facility] [place] [facility] [address] [id number] [place] [address] Apr, 2014 [facility] [place] [facility] [address] [id number] [place] [address] 05 Apr, 2014 [facility] [place] [facility] [address] [id number] [place] [address] Apr, [facility] [place] [facility] [address] [id number] [place] [address] Mar, [facility] [place] [facility] [address] [id number] [place] [address] Mar, [facility] [place] [facility] [address] [id number] [place] [address] Mar, [facility] [place] [facility] [address] [id number] [place] [address] Mar, [facility] [place] [facility] [address] [id number] [place] [address] Mar, [facility] [place] [facility] [address] [id number] [place] [address] Mar, [facility] [place] [facility] [address] [id number] [place] [address] Mar, [facility] [place] [facility] [address] [id number], [place] [address] Mar, [facility] [place] [facility] [address] [id number], [place] [address] Mar, [facility] [place] [facility] [address] [id number] [place] [address] Mar, [facility] [place] [facility] [address] [id number], [place] [address] Mar, [facility] [place] [facility] [address] [id number], [place] [address] Mar, [facility] [place] [facility] [address] [id number], [place] [address] Mar, [facility] [place] [facility] [address] [id number], [place] [address] Mar, [facility] [place] [facility] [address] [id number], [place] [address] Mar, [facility] [place] [facility] [address] [id number] [place] [address] 15 Mar, 2014 [facility] [address] [id number] [place] [address] 15 Mar, 2014 [facility] [place] [facility] [address] [id number] [place] [address] 09 Mar, 2014 [facility] [address] [id number] [place] [address] Mar, [facility] [place] [facility] [address] [id number] [place] [address] 18 Feb, 2014 [facility] [address] [id number] [place] [address] 18 Feb, 2014 [facility] [address] [id number] [place] [address] Feb, [facility] [address] [id number] [place] [address] Feb, [facility] [address] [id number] [place] [address] Jan, [facility] [place] [facility] [address] [id number] [place] [address] 20 Jan, 2014 [facility] [address] [id number] [place] [address] 14 Jan, 2014 [facility] [place] [facility] [address] [id number] [place] [address] 14 Jan, 2014 [facility] [place] [facility] [address] [id number] [place] [address] 14 Jan, 2014 [facility] [place] [facility] [address] [id number] [place] [address] 14 Jan, 2014 [facility] [place] [facility] [address] [id number] [place] [address] 07 Jan, 2014 [facility] [place] [facility] [address] [id number] [place] [address] Jan, [facility] [place] [facility] [address] [id number] [place] [address] Dec, [facility] [place] [facility] [address] [id number] [place] [address] Dec, [facility] [place] [facility] [address] [id number] [place] [address] Dec, [facility] [place] [facility] [address] [id number] [place] [address] Dec, [facility] [place] [facility] [address] [id number] [place] [address] 22 Nov, 2013 [facility] [place] [facility] [address] [id number] [place] [address] 22 Nov, 2013 [facility] [place] [facility] [address] [id number] [place] [address] 08 Nov, 2013 [facility] [place] [facility] [address] [id number] [place] [address] 08 Sep, 2013 [facility] [place] [facility] [address] [id number] [place] [address] 05 Sep, 2013 [facility] [place] [facility] [address] [id number] [place] [address] 05 Sep, 2013 [facility] [place] [facility] [address] [id number] [place] [address] 04 Sep, 2013 [facility] [place] [facility] [address] [id number], [place] [address] 04 Sep, 2013 [facility] [place] [facility] [address] [id number] [place] [address] 03 Sep, 2013 [facility] [place] [facility] [address] [id number] [place] [address] 03 Nov, 2013 [facility] [place] [facility] [address] [id number] [place] [address] 15 Oct, 2013 [facility] [place] [facility] [address] [id number] [address] Oct, [facility] [place] [facility] [address] [id number] [place] [address] Sep, [facility] [place] [facility] [address] [id number] [place] [address] Sep, [facility] [place] [facility] [address] [id number] [place] [address] Sep, [facility] [place] [facility] [address] [id number] [place] [address] Sep, [facility] [place] [facility] [address] [id number] [place] [address] Sep, [facility] [place] [facility] [address] [id number] [place] [address] Sep, [facility] [place] [facility] [address] [id number] [place] [address] Aug, [facility] [place] [facility] [address] [id number] [place] [address] Aug, [facility] [place] [facility] [address] [id number] [place] [address] Aug, [facility] [place] [facility] [address] [id number] [place] [address] Aug, [facility] [place] [facility] [address] [id number] [place] [address] Aug, [facility] [place] [facility] [address] [id number] [place] [address] Aug, [facility] [place] [facility] [address] [id number] [place] [address] July, [facility] [place] [facility] [address] [id number] [place] [address] July, [facility] [place] [facility] [address] [id number] [place] [address] July, [facility] [place] [facility] [address] [id number] [place] [address] July, [facility] [place] [facility] [address] [id number] [place] [address] July, [facility] [place] [facility] [address] [id number] [place] [address] July, [facility] [place] [facility] [address] [id number] [place] [address] Jun, [facility] [place] [facility] [address] [id number] [place] [address] Jun, [facility] [place] [facility] [address] [id number] [place] [address] Jun, [facility] [place] [facility] [address] [id number] [place] [address] Jun, [facility] [place] [facility] [address] [id number] [place] [address] May, [facility] [place] [facility] [address] [id number] [place] [address] May, [facility] [place] [facility] [address] [id number] [place] [address] Apr, [facility] [place] [facility] [address] [id number] [place] [address] Apr, [facility] [place] [facility] [address] [id number] [place] [address] Apr, [facility] [place] [facility] [address] [id number] [place] [address] Apr, [facility] [place] [facility] [address] [id number] [place] [address] Mar, [facility] [place] [facility] [address] [id number] [place] [address] Mar, [facility] [place] [facility] [address] [id number] [place] [address] Mar, [facility] [place] [facility] [address] [id number] [place] [address] Mar, [facility] [place] [facility] [address] [id number] [place] [address] Mar, [facility] [place] [facility] [address] [id number] [place] [address] Mar, [facility] [place] [facility] [address] [id number] [place] [address] Feb, [facility] [place] [facility] [address] [id number] [place] [address] Feb, [facility] [place] [facility] [address] [id number] [place] [address] Jan, [facility] [place] [facility] [address] [id number] [place] [address] Jan, [facility] [place] [facility] [address] [id number] [place] [address] Jan, [facility] [place] [facility] [address] [id number] [place] [address] Jan, [facility] [place] [facility] [address] [id number] [place] [address] Nov, [facility] [place] [facility] [address] [id number] [place] [address] Nov, [facility] [place] [facility] [address] [id number] [address] Oct, [facility] [place] [facility] [address] [id number] [place] [address] Oct, [facility] [place] [facility] [address] [id number] [place] [address] Sep, [facility] [place] [facility] [address] [id number] [place] [address] Sep, [facility] [place] [facility] [address] [id number] [place] [address] Sep, [facility] [address] [id number] [place] [address] Aug, [facility] [address] [id number] [place] [address] Aug, [facility] [address] [id number] [place] [address] Aug, [facility] [address] [id number] [place] [address] Aug, [facility] [address] [id number] [place] [address] July, [facility] [address] [id number] [place] [address] July, [facility] [address] [id number] [place] [address] July, [facility] [address] [id number] [place] [address] July, [facility] [address] [id number] [place] [address] Jun, [facility] [address] [id number] [place] [address] Jun, [facility] [address] [id number] [place] [address] Jun, [facility] [address] [id number] [place] [address] May, [facility] [address] [id number] [place] [address] May, [facility] [address] [id number] [place] [address] Apr, [facility] [address] [id number] [place] [address] Apr, [facility] [address] [id number] [place] [address] Apr, [facility] [place] [facility] [address] [id number] [place] [address] Apr, [facility] [place] [facility] [address] [id number] [place] [address] Mar, [facility] [place] [facility] [address] [id number] [place] [address] Mar, [facility] [address] [id number] [place] [address] Mar, [facility] [place] [facility] [address] [id number] [place] [address] Mar, [facility] [address] [id number] [place] [address] Feb, [facility] [place] [facility] [address] [id number] [place] [address] Feb, [facility] [place] [facility] [address] [id number] [place] [address] Feb, [facility] [place] [facility] [address] [id number] [place] [address] Feb, [facility] [place] [facility] [address] [id number] [place] [address] Feb, [facility] [place] [facility] [address] [id number] [address] Feb, [facility] [place] [facility] [address] [id number] [place] [address] Feb, [facility] [place] [facility] [address] [id number] [place] [address] Feb, [facility] [place] [facility] [address] [id number] [place] [address] Jan, [facility] [place] [facility] [address] [id number] [place] [address] 28 Jan, 2012 [facility] [place] [facility] [address] [id number] [place] [address] 15 Jan, 2012 [facility] [place] [facility] [address] [id number] [place] [address] 15 Jan, 2012 [facility] [place] [facility] [address] [id number] [place] [address] 14 Jan, 2012 [facility] [place] [facility] [address] [id number] [place] [address] 13 Jan, 2012 [facility] [place] [facility] [address] [id number] [place] [address] 13 Jan, 2012 [facility] [place] [facility] [address] [id number] [place] [address] 12 Jan, 2012 [facility] [place] [facility] [address] [facility] [id number] [place] [address] 12 Jan, 2012 [facility] [place] [facility] [address] [id number] [place] [address] Jan, [facility] [place] [facility] [address] [id number] [place] [address] Jan, [facility] [place] [facility] [address] [facility] [id number] [place] [address] Dec, [facility] [place] [facility] [address] [id number] [place] [address] 31 Dec, 2011 [facility] [place] [facility] [address] [id number], [place] [address] 29 Dec, 2011 [facility] [place] [facility] [address] [id number] [place] [address] 29 Dec, 2011 [facility] [place] [facility] [address] [facility] [id number] [place] [address] 29 Dec, 2011 [facility] [place] [facility] [address] [facility] [id number], [place] [address] 29 Dec, 2011 [facility] [place] [facility] [address] [id number] [place] [address] Dec, [facility] [place] [facility] [address] [id number] [place] [address] Dec, [facility] [place] [facility] [address] [id number] [place] [address] Dec, [facility] [place] [facility] [address] [id number] [place] [address] Dec, [facility] [place] [facility] [address] [id number] [place] [address] Dec, [facility] [place] [facility] [address] [id number] [place] [address] Dec, [facility] [place] [facility] [address] [id number] [place] [address] Nov, [facility] [place] [facility] [address] [id number] [place] [address] Oct, [facility] [place] [facility] [address] [id number] [place] [address] Oct, [facility] [place] [facility] [address] [id number] [place] [address] Oct, [facility] [place] [facility] [address] [id number] [place] [address] Oct, [facility] [place] [facility] [address] [id number] [place] [address] Sep, [facility] [place] [facility] [address] [id number] [place] [address] Sep, [facility] [place] [facility] [address] [id number] [place] [address] Sep, [facility] [place] [facility] [address] [id number] [place] [address] Sep, [facility] [place] [facility] [address] [id number] [place] [address] Aug, [facility] [address] [id number] [address] Aug, [facility] [id number], [place] [address] Aug, [facility] [id number], [place] [address] Aug, [facility] [id number], [place] [address] Aug, [facility] [id number], [place] [address] July, [facility] [id number], [place] [address] July, [facility] [id number], [place] [address] July, [facility] [address] [id number], [place] [address] Dec, IMMUNIZATIONS No Known Immunizations SOCIAL HISTORY [...]
--- OUTSIDE RECORDS SUMMARY | 2018-10-24 12:03 | XMS REPORT ---
Author Author NELSON DIANN [facility] Address [address] [place] [address] Care Team Providers Care Tray Filler Name Role Phone NELSONDORIS BURGOSY Unavailable PROBLEMS Type Condition ICD9-CM Code SRK85-XN Code Onset Dates Condition Status SNOMED Code Problem Chronic periodontal disease K05.6 Active 8669170 Problem MRSA (methicillin resistant staph aureus) culture positive Z22.322 Active 492881262 Problem Interstitial cystitis N30.10 Active 313637631 Problem Epilepsy G40.909 Active 76918246 Problem Esophageal reflux K21.9 Active 297772992 Problem Major depressive disorder F32.9 Active 562729167 Problem Lumbago M54.5 Active 153222174 Problem Generalized anxiety disorder F41.1 Active 187510783 Problem Tinnitus of both ears H93.13 Active 5440306195036 Problem Chronic obstructive pulmonary disease, unspecified COPD type J44.9 Active 58537312 Problem On antiepileptic therapy Z79.899 Active 779931194 Problem Paresthesia of skin R20.2 Active 13363293 Problem Irritable bowel syndrome without diarrhea K58.9 Active 09611551 Problem Paresthesia R20.2 Active 68319382 Problem Fibromyalgia M79.7 Active 23664984 Problem Vitamin D deficiency E55.9 Active 87197300 Problem Irritable bowel syndrome with diarrhea K58.0 Active 917823913 Problem Menopausal symptoms N95.1 Active 17194779 Problem COPD exacerbation J44.1 Active 817542718 ALLERGIES No Information ENCOUNTERS Encounter Location Date Diagnosis [facility] [address] [facility] [id number] [address] Sep, [facility] [address] [facility] [id number] [address] Sep, [facility] [address] [facility] [id number] [address] Sep, [facility] [address], [place] [address] Sep, Rectal pain K62.89 [facility] [address], [place] [address] Aug, [address] [address] Aug, Well woman exam (no gynecological exam) Z00.[address] [address] Aug, [facility] [address], [place] [address] Aug, Well woman exam (no gynecological exam) Z00.00 and Hemorrhoids, unspecified hemorrhoid type K64.[address] [address] Aug, [facility] [address], [place] [address] July, Dysuria R30.0 ; Bleeding hemorrhoids K64.9 and Hematochezia K92.1 [facility] [address], [place] [address] July, [facility] [address], [place] [address] July, Dysuria R30.0 [facility] [address], [place] [address] July, Paresthesia R20.2 [facility] [address], [place] [address] July, [facility] [address], [place] [address] July, Fibromyalgia M79.7 and Generalized anxiety disorder F41.1 [facility] [address], [place] [address] July, [facility] [id number] [place] [address] Jun, [facility] [address] [address] Jun, Dysuria R30.0 ; Major depressive disorder F32.9 ; Interstitial cystitis N30.10 ; Vitamin D deficiency E55.9 ; Hematochezia K92.1 ; Paresthesia of skin R20.2 and Weight loss R63.4 [facility] [address] [address] Jun, Fibromyalgia M79.7 [place] [address] [address] May, Fibromyalgia M79.7 [facility] [address] [address] Apr, [facility] [address] [address] Mar, Fibromyalgia M79.7 [facility] [address] [address] Feb, Fibromyalgia M79.7 [facility] [id number] [place] [address] Feb, Acute cystitis with hematuria N30.01 [place] [id number] [place] [address] Feb, Acute cystitis with hematuria N30.01 ; COPD exacerbation J44.1 ; Interstitial cystitis N30.10 ; Nausea R11.0 and Rectal bleeding K62.5 [facility] [id number] [place] [address] Jan, Fibromyalgia M79.7 [facility] [id number] [place] [id number] Dec, [facility] [id number] [place] [id number] Dec, [place] [id number] [place] [address] Dec, Fibromyalgia M79.7 [facility] [address] [address] Dec, [facility] [id number] [place] [address] Oct, [facility] [address] [id number] Oct, [facility] [address] [address] Oct, [facility] [address] [address] Sep, [facility] [address] [address] Sep, [facility] [id number] [place] [address] Sep, [facility] [id number] [place] [id number] Aug, Dental examination Z01.20 [facility] [id number] [place] [address] Aug, Abscess of axilla, left L02.412 [facility] [address] [address] Aug, Esophageal reflux K21.9 [facility] [id number] [place] [address] Aug, [facility] [address] [address] Aug, Esophageal reflux K21.9 ; Fluid level behind tympanic membrane of right ear H65.91 ; Fibromyalgia M79.7 and Lumbago M54.5 [facility] [address] [address] Aug, Esophageal reflux K21.9 [facility] [address], [place] [address] July, [facility] [id number] [place] [address] July, [facility] [address], [place] [address] July, Chronic obstructive pulmonary disease, unspecified COPD type J44.9 [facility] [id number] [place] [address] July, [facility] [id number] [place] [address] July, [facility] [id number] [place] [address] July, Interstitial cystitis N30.10 ; Fibromyalgia M79.7 [...] Dysuria R30.0 and Generalized anxiety disorder F41.1 [place] [address], [place] [address] Jun, [facility] [address], [place] [address] Jun, Chronic obstructive pulmonary disease, unspecified COPD type J44.9 ; COPD exacerbation J44.1 and Sore throat J02.9 [facility] [address], [place] [address] Jun, Fibromyalgia M79.7 [facility] [id number] [place] [address] Jun, Fibromyalgia M79.7 [facility] [address], [place] [address] May, [facility] [id number] [place] [address] May, [facility] [id number] [place] [address] May, Fibromyalgia M79.7 [facility] [id number] [place] [address] Mar, [facility] [id number] [place] [address] Mar, Epilepsy G40.909 ; Lumbago M54.5 ; Esophageal reflux K21.9 ; Fibromyalgia M79.7 ; Chronic obstructive pulmonary disease, unspecified COPD type J44.9 ; Vitamin D deficiency E55.9 ; Fluid level behind tympanic membrane of right ear H65.91 ; Irritable bowel syndrome with diarrhea K58.0 ; Hematochezia K92.1 and Generalized anxiety disorder F41.1 [facility] [id number] [place] [address] Mar, [facility] [id number] [place] [address] Mar, [facility] [id number] [place] [address] Mar, Vitamin D deficiency E55.9 [facility] [address], [place] [address] Feb, [facility] [id number], [place] [address] Feb, [facility] [id number] [place] [address] Jan, Fibromyalgia M79.7 [facility] [address], [place] [address] Jan, [facility] [id number] [place] [address] Jan, [facility] [address] [address] Jan, Vitamin D deficiency E55.9 [facility] [id number] [place] [address] Dec, [facility] [address] [address] Dec, [facility] [address] [address] Dec, Generalized anxiety disorder F41.1 [place] [address] [address] Dec, Dysuria R30.0 ; Acute bilateral low back pain without sciatica M54.5 and Encounter for immunization Z23 [place] [address] [address] Oct, [place] [address] [address] Oct, Fibromyalgia M79.7 [place] [id number] [place] [address] Sep, Dysuria R30.0 and Acute bronchitis, unspecified organism J20.9 [place] [id number] [place] [address] Sep, [facility] [id number] [place] [address] Sep, Rectal prolapse K62.3 [place] [address] [address] Sep, Chronic obstructive pulmonary disease, unspecified COPD type J44.9 [facility] [id number] [place] [id number] Aug, [facility] [address] [place] [id number] Aug, [place] [id number] [place] [address] Aug, Light headedness R42 ; On antiepileptic therapy Z79.899 ; Vitamin D deficiency E55.9 ; Screening for lipid disorders Z13.220 ; Dysuria R30.0 and Hemorrhoids, unspecified hemorrhoid type K64.9 [place] [address] [address] Aug, Internal prolapsed hemorrhoids K64.8 [place] [id number] [place] [address] July, [place] [address] [address] May, [address] [address] May, Fever and chills R50.9 and Influenza B J10.1 [place] [id number] [place] [address] Apr, [place] [id number] [place] [address] Apr, Fibromyalgia M79.7 and Generalized anxiety disorder F41.1 [place] [id number] [place] [address] Mar, Esophageal reflux K21.9 ; Generalized anxiety disorder F41.1 and Epilepsy G40.909 [place] [id number] [place] [address] Mar, Epilepsy G40.909 ; Esophageal reflux K21.9 ; Fibromyalgia M79.7 ; Generalized anxiety disorder F41.1 ; Pain of left foot M79.672 ; Pain in right foot M79.671 ; Ear pain, right H92.01 ; Tinnitus of both ears H93.13 ; Chronic obstructive pulmonary disease, unspecified COPD type J44.9 ; Vitamin D deficiency E55.9 ; Screening for lipid disorders Z13.220 and On antiepileptic therapy Z79.899 [facility] [id number] [place] [address] Feb, [facility] [id number] [place] [address] Feb, [facility] [id number] [place] [address] Feb, Dysuria R30.0 and Plantar fasciitis of right foot M72.2 [facility] [id number] [place] [address] Feb, [facility] [id number] [place] [address] Feb, [facility] [id number] [place] [address] Jan, [facility] [id number] [place] [address] Jan, [facility] [id number] [place] [address] Dec, [facility] [id number] [place] [address] Dec, [facility] [id number] [place] [address] Dec, [facility] [id number] [place] [address] Nov, [facility] [id number] [place] [address] Sep, [facility] [id number] [place] [address] Aug, Shortness of breath R06.02 and Acute suppurative otitis media of right ear without spontaneous rupture of tympanic membrane, recurrence not specified H66.001 [facility] [id number] [place] [address] 14 Aug, 2015 Internal prolapsed hemorrhoids K64.8 [place] [address] [address] 06 Jun, 2015 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 [place] [id number] [place] [address] May, Fibromyalgia M79.7 ; Interstitial cystitis N30.10 ; Intractable migraine without aura and without status migrainosus G43.019 ; Low vitamin D level E55.9 and Ringing in right ear H93.11 [place] [address] [address] May, [place] [address] [address] May, Low vitamin D level E55.9 [place] [address] [address] Apr, [place] [id number] [place] [address] Mar, [place] [address] [address] Mar, Acute suppurative otitis media of right ear without spontaneous rupture of tympanic membrane, recurrence not specified H66.001 ; Encounter for immunization Z23 ; Asthma with acute exacerbation, unspecified asthma severity J45.901 ; Memory problem R41.3 ; Acute pain of right knee M25.561 ; Chronic fatigue R53.82 and Excessive urinary volume R35.8 [place] [id number] [place] [address] Feb, [place] [address] [address] Feb, [place] [id number] [place] [address] Jan, [place] [id number] [place] [address] Nov, Esophageal reflux 530.81 ; Anxiety 300.00 and Tingling in extremities 782.0 [facility] [id number] [place] [address] Oct, [facility] [id number] [place] [address] Oct, [facility] [id number] [place] [address] Oct, [facility] [id number] [place] [address] Oct, [facility] [id number] [place] [address] Oct, [facility] [id number] [place] [address] Sep, Other chronic allergic conjunctivitis 372.14 ; Irritable bowel syndrome 564.1 ; 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 ; Fibromyalgia 729.1 ; Extremity pain 729.5 and Neck pain 723.1 [facility] [id number] [place] [address] Sep, [facility] [id number] [place] [address] Aug, [facility] [id number] [place] [address] Aug, [facility] [id number] [place] [address] July, Vomiting 787.03 [facility] [id number] [place] [id number] July, Dental examination V72.2 [facility] [id number] [place] [address] Jun, [facility] [id number] [address] 13 Jun, 2014 [facility] [place] [facility] [address] [id number] [place] [address] May, [facility] [place] [facility] [address] [id number] [place] [address] May, [facility] [place] [facility] [address] [id number] [place] [address] May, [facility] [place] [facility] [address] [id number] [place] [address] May, [facility] [place] [facility] [address] [id number] [place] [address] May, [facility] [place] [facility] [address] [facility] [id number] [place] [address] May, [facility] [place] [facility] [address] [id number] [place] [address] May, [facility] [place] [facility] [address] [id number] [place] [address] May, [facility] [place] [facility] [address] [id number] [place] [address] May, [facility] [place] [facility] [address] [facility] [id number] [place] [address] Apr, 2014 [facility] [place] [facility] [address] [id number] [place] [address] 11 Apr, 2014 [facility] [place] [facility] [address] [id number] [place] [address] Apr, 2014 [facility] [place] [facility] [address] [id number] [place] [address] Apr, 2014 [facility] [place] [facility] [address] [id number] [place] [address] 05 Apr, 2014 [facility] [place] [facility] [address] [id number] [place] [address] Apr, [facility] [place] [facility] [address] [id number] [place] [address] Mar, [facility] [place] [facility] [address] [id number] [place] [address] Mar, [facility] [place] [facility] [address] [id number] [place] [address] Mar, [facility] [place] [facility] [address] [id number] [place] [address] Mar, [facility] [place] [facility] [address] [id number] [place] [address] Mar, [facility] [place] [facility] [address] [id number] [place] [address] Mar, [facility] [place] [facility] [address] [id number] [place] [address] Mar, [facility] [place] [facility] [address] [id number], [place] [address] Mar, [facility] [place] [facility] [address] [id number], [place] [address] Mar, [facility] [place] [facility] [address] [id number] [place] [address] Mar, [facility] [place] [facility] [address] [id number], [place] [address] Mar, [facility] [place] [facility] [address] [id number], [place] [address] Mar, [facility] [place] [facility] [address] [id number], [place] [address] Mar, [facility] [place] [facility] [address] [id number], [place] [address] Mar, [facility] [place] [facility] [address] [id number], [place] [address] Mar, [facility] [place] [facility] [address] [id number] [place] [address] 15 Mar, 2014 [facility] [address] [id number] [place] [address] 15 Mar, 2014 [facility] [place] [facility] [address] [id number] [place] [address] 09 Mar, 2014 [facility] [address] [id number] [place] [address] Mar, [facility] [place] [facility] [address] [id number] [place] [address] 18 Feb, 2014 [facility] [address] [id number] [place] [address] 18 Feb, 2014 [facility] [address] [id number] [place] [address] Feb, [facility] [address] [id number] [place] [address] Feb, [facility] [address] [id number] [place] [address] Jan, [facility] [place] [facility] [address] [id number] [place] [address] 20 Jan, [address] [facility] [address] [id number] [place] [address] 14 Jan, 2014 [facility] [place] [facility] [address] [id number] [place] [address] 14 Jan, 2014 [facility] [place] [facility] [address] [id number] [place] [address] 14 Jan, 2014 [facility] [place] [facility] [address] [id number] [place] [address] 14 Jan, 2014 [facility] [place] [facility] [address] [id number] [place] [address] 07 Jan, 2014 [facility] [place] [facility] [address] [id number] [place] [address] Jan, [facility] [place] [facility] [address] [id number] [place] [address] Dec, [facility] [place] [facility] [address] [id number] [place] [address] Dec, [facility] [place] [facility] [address] [id number] [place] [address] Dec, [facility] [place] [facility] [address] [id number] [place] [address] Dec, [facility] [place] [facility] [address] [id number] [place] [address] 22 Nov, 2013 [facility] [place] [facility] [address] [id number] [place] [address] 22 Nov, 2013 [facility] [place] [facility] [address] [id number] [place] [address] 08 Nov, 2013 [facility] [place] [facility] [address] [id number] [place] [address] 08 Sep, 2013 [facility] [place] [facility] [address] [id number] [place] [address] 05 Sep, 2013 [facility] [place] [facility] [address] [id number] [place] [address] 05 Sep, 2013 [facility] [place] [facility] [address] [id number] [place] [address] 04 Sep, 2013 [facility] [place] [facility] [address] [id number], [place] [address] 04 Sep, 2013 [facility] [place] [facility] [address] [id number] [place] [address] 03 Sep, 2013 [facility] [place] [facility] [address] [id number] [place] [address] 03 Nov, 2013 [facility] [place] [facility] [address] [id number] [place] [address] 15 Oct, 2013 [facility] [place] [facility] [address] [id number], [place] [address] Oct, [facility] [place] [facility] [address] [id number] [place] [address] Sep, [facility] [place] [facility] [address] [id number] [place] [address] Sep, [facility] [place] [facility] [address] [id number] [place] [address] Sep, [facility] [place] [facility] [address] [id number] [place] [address] Sep, [facility] [place] [facility] [address] [id number] [place] [address] Sep, [facility] [place] [facility] [address] [id number] [place] [address] Sep, [facility] [place] [facility] [address] [id number] [place] [address] Aug, [facility] [place] [facility] [address] [id number] [place] [address] Aug, [facility] [place] [facility] [address] [id number] [place] [address] Aug, [facility] [place] [facility] [address] [id number] [place] [address] Aug, [facility] [place] [facility] [address] [id number] [place] [address] Aug, [facility] [place] [facility] [address] [id number] [place] [address] Aug, [facility] [place] [facility] [address] [id number] [place] [address] July, [facility] [place] [facility] [address] [id number] [place] [address] July, [facility] [place] [facility] [address] [id number] [place] [address] July, [facility] [place] [facility] [address] [id number] [place] [address] July, [facility] [place] [facility] [address] [id number] [place] [address] July, [facility] [place] [facility] [address] [id number] [place] [address] July, [facility] [place] [facility] [address] [id number] [place] [address] Jun, [facility] [place] [facility] [address] [id number] [place] [address] Jun, [facility] [place] [facility] [address] [id number] [place] [address] Jun, [facility] [place] [facility] [address] [id number] [place] [address] Jun, [facility] [place] [facility] [address] [id number] [place] [address] May, [facility] [place] [facility] [address] [id number] [place] [address] May, [facility] [place] [facility] [address] [id number] [place] [address] Apr, [facility] [place] [facility] [address] [id number] [place] [address] Apr, [facility] [place] [facility] [address] [id number] [place] [address] Apr, [facility] [place] [facility] [address] [id number] [place] [address] Apr, [facility] [place] [facility] [address] [id number] [place] [address] Mar, [facility] [place] [facility] [address] [id number] [place] [address] Mar, [facility] [place] [facility] [address] [id number] [place] [address] Mar, [facility] [place] [facility] [address] [id number] [place] [address] Mar, [facility] [place] [facility] [address] [id number] [place] [address] Mar, [facility] [place] [facility] [address] [id number] [place] [address] Mar, [facility] [place] [facility] [address] [id number] [place] [address] Feb, [facility] [place] [facility] [address] [id number] [place] [address] Feb, [facility] [place] [facility] [address] [id number] [place] [address] Jan, [facility] [place] [facility] [address] [id number] [place] [address] Jan, [facility] [place] [facility] [address] [id number] [place] [address] Jan, [facility] [place] [facility] [address] [id number] [place] [address] Jan, [facility] [place] [facility] [address] [id number] [place] [address] Nov, [facility] [place] [facility] [address] [id number] [place] [address] Nov, [facility] [place] [facility] [address] [id number], [place] [address] Oct, [facility] [place] [facility] [address] [id number] [place] [address] Oct, [facility] [place] [facility] [address] [id number] [place] [address] Sep, [facility] [place] [facility] [address] [id number] [place] [address] Sep, [facility] [place] [facility] [address] [id number] [place] [address] Sep, [facility] [address] [id number] [place] [address] Aug, [facility] [address] [id number] [place] [address] Aug, [facility] [address] [id number] [place] [address] Aug, [facility] [address] [id number] [place] [address] Aug, [facility] [address] [id number] [place] [address] July, [facility] [address] [id number] [place] [address] July, [facility] [address] [id number] [place] [address] July, [facility] [address] [id number] [place] [address] July, [facility] [address] [id number] [place] [address] Jun, [facility] [address] [id number] [place] [address] Jun, [facility] [address] [id number] [place] [address] Jun, [facility] [address] [id number] [place] [address] May, [facility] [address] [id number] [place] [address] May, [facility] [address] [id number] [place] [address] Apr, [facility] [address] [id number] [place] [address] Apr, [facility] [address] [id number] [place] [address] Apr, [facility] [place] [facility] [address] [id number] [place] [address] Apr, [facility] [place] [facility] [address] [id number] [place] [address] Mar, [facility] [place] [facility] [address] [id number] [place] [address] Mar, [facility] [address] [id number] [place] [address] Mar, [facility] [place] [facility] [address] [id number] [place] [address] Mar, [facility] [address] [id number] [place] [address] Feb, [facility] [place] [facility] [address] [id number] [place] [address] Feb, [facility] [place] [facility] [address] [id number] [place] [address] Feb, [facility] [place] [facility] [address] [id number] [place] [address] Feb, [facility] [place] [facility] [address] [id number] [place] [address] Feb, [facility] [place] [facility] [address] [id number], [place] [address] Feb, [facility] [place] [facility] [address] [id number] [place] [address] Feb, [facility] [place] [facility] [address] [id number] [place] [address] Feb, [facility] [place] [facility] [address] [id number] [place] [address] Jan, [facility] [place] [facility] [address] [id number] [place] [address] 28 Jan, 2012 [facility] [place] [facility] [address] [id number] [place] [address] 15 Jan, 2012 [facility] [place] [facility] [address] [id number] [place] [address] 15 Jan, 2012 [facility] [place] [facility] [address] [id number] [place] [address] 14 Jan, 2012 [facility] [place] [facility] [address] [id number] [place] [address] 13 Jan, 2012 [facility] [place] [facility] [address] [id number] [place] [address] 13 Jan, 2012 [facility] [place] [facility] [address] [id number] [place] [address] 12 Jan, 2012 [facility] [place] [facility] [address] [facility] [id number] [place] [address] 12 Jan, 2012 [facility] [place] [facility] [address] [id number] [place] [address] Jan, [facility] [place] [facility] [address] [id number] [place] [address] Jan, [facility] [place] [facility] [address] [facility] [id number] [place] [address] Dec, [facility] [place] [facility] [address] [id number] [place] [address] 31 Dec, 2011 [facility] [place] [facility] [address] [id number], [place] [address] 29 Dec, 2011 [facility] [place] [facility] [address] [id number] [place] [address] 29 Dec, 2011 [facility] [place] [facility] [address] [facility] [id number] [place] [address] 29 Dec, 2011 [facility] [place] [facility] [address] [facility] [id number], [place] [address] 29 Dec, 2011 [facility] [place] [facility] [address] [id number] [place] [address] Dec, [facility] [place] [facility] [address] [id number] [place] [address] Dec, [facility] [place] [facility] [address] [id number] [place] [address] Dec, [facility] [place] [facility] [address] [id number] [place] [address] Dec, [facility] [place] [facility] [address] [id number] [place] [address] Dec, [facility] [place] [facility] [address] [id number] [place] [address] Dec, [facility] [place] [facility] [address] [id number] [place] [address] Nov, [facility] [place] [facility] [address] [id number] [place] [address] Oct, [facility] [place] [facility] [address] [id number] [place] [address] Oct, [facility] [place] [facility] [address] [id number] [place] [address] Oct, [facility] [place] [facility] [address] [id number] [place] [address] Oct, [facility] [place] [facility] [address] [id number] [place] [address] Sep, [facility] [place] [facility] [address] [id number] [place] [address] Sep, [facility] [place] [facility] [address] [id number] [place] [address] Sep, [facility] [place] [facility] [address] [id number] [place] [address] Sep, [facility] [place] [facility] [address] [id number] [place] [address] Aug, [facility] [address] [id number], [place] [address] Aug, [facility] [id number], [place] [address] Aug, [facility] [id number], [place] [address] Aug, [facility] [id number], [place] [address] Aug, [facility] [id number], [place] [address] July, [facility] [id number], [place] [address] July, [facility] [id number], [place] [address] July, [facility] [address] [id number], [place] [address] Dec, IMMUNIZATIONS No Known Immunizations SOCIAL HISTORY [...]
--- OUTSIDE RECORDS SUMMARY | 2018-10-24 12:03 | XMS REPORT ---
Author Author NELSON DIANN [facility] Address [address] [place] [address] Care Team Providers Care Guillotine Operator Name Role Phone DORIS DAMONY Unavailable PROBLEMS Type Condition ICD9-CM Code URD95-CQ Code Onset Dates Condition Status SNOMED Code Problem Chronic periodontal disease K05.6 Active 1894429 Problem MRSA (methicillin resistant staph aureus) culture positive Z22.322 Active 983449272 Problem Interstitial cystitis N30.10 Active 318254388 Problem Epilepsy G40.909 Active 34418312 Problem Esophageal reflux K21.9 Active 463737735 Problem Major depressive disorder F32.9 Active 814676353 Problem Lumbago M54.5 Active 494498342 Problem Generalized anxiety disorder F41.1 Active 362076433 Problem Tinnitus of both ears H93.13 Active 1207001666545 Problem Chronic obstructive pulmonary disease, unspecified COPD type J44.9 Active 33102581 Problem On antiepileptic therapy Z79.899 Active 371025250 Problem Paresthesia of skin R20.2 Active 44250769 Problem Irritable bowel syndrome without diarrhea K58.9 Active 10888389 Problem Paresthesia R20.2 Active 03721320 Problem Fibromyalgia M79.7 Active 49646173 Problem Vitamin D deficiency E55.9 Active 05513012 Problem Irritable bowel syndrome with diarrhea K58.0 Active 945990786 Problem Menopausal symptoms N95.1 Active 07691250 Problem COPD exacerbation J44.1 Active 577439468 ALLERGIES No Information ENCOUNTERS Encounter Location Date Diagnosis [facility] [address] [facility] [id number] [address] Sep, [facility] [address] [facility] [id number], [place] [address] Sep, [facility] [address] [facility] [id number], [place] [address] Sep, Rectal pain K62.89 [facility] [address], [place] [address] Aug, [facility] [address] [address] Aug, Well woman exam (no gynecological exam) Z00.[address] [address] Aug, [facility] [address] [place] [id number] [place] [address] Aug, Well woman exam (no gynecological exam) Z00.00 and Hemorrhoids, unspecified hemorrhoid type K64.[address] [address] Aug, [facility] [address], [place] [address] July, Dysuria R30.0 ; Bleeding hemorrhoids K64.9 and Hematochezia K92.1 [facility] [address], [place] [address] July, [facility] [id number] [place] [address] July, Dysuria R30.0 [facility] [address], [place] [address] July, Paresthesia R20.2 [facility] [address], [place] [address] July, [facility] [address], [place] [address] July, Fibromyalgia M79.7 and Generalized anxiety disorder F41.1 [facility] [address], [place] [address] July, [facility] [address], [place] [address] Jun, [facility] [id number] [place] [address] Jun, Dysuria R30.0 ; Major depressive disorder F32.9 ; Interstitial cystitis N30.10 ; Vitamin D deficiency E55.9 ; Hematochezia K92.1 ; Paresthesia of skin R20.2 and Weight loss R63.4 [place] [address] [address] Jun, Fibromyalgia M79.7 [facility] [address] [address] May, Fibromyalgia M79.7 [place] [address] [address] Apr, [place] [address] [address] Mar, Fibromyalgia M79.7 [place] [address] [address] Feb, Fibromyalgia M79.7 [place] [id number] [place] [address] Feb, Acute cystitis with hematuria N30.01 [place] [id number] [place] [address] Feb, Acute cystitis with hematuria N30.01 ; COPD exacerbation J44.1 ; Interstitial cystitis N30.10 ; Nausea R11.0 and Rectal bleeding K62.5 [facility] [id number] [place] [address] Jan, Fibromyalgia M79.7 [facility] [id number] [place] [id number] Dec, [facility] [id number] [place] [address] [id number] Dec, [facility] [id number] [place] [address] Dec, Fibromyalgia M79.7 [facility] [id number] [place] [address] Dec, [facility] [address] [address] Oct, [facility] [id number] [place] [address] [id number] Oct, [facility] [address] [address] Oct, [facility] [address] [address] Sep, [facility] [address] [address] Sep, [facility] [address] [address] Sep, [facility] [id number] [place] [address] [id number] Aug, Dental examination Z01.20 [place] [address] [address] Aug, Abscess of axilla, left L02.412 [place] [address] [address] [id number] [place] [address] Aug, Esophageal reflux K21.9 [place] [address] [address] Aug, [place] [address] [address] [id number] [place] [address] Aug, Esophageal reflux K21.9 ; Fluid level behind tympanic membrane of right ear H65.91 ; Fibromyalgia M79.7 and Lumbago M54.5 [place] [address] [id number] [place] [address] Aug, Esophageal reflux K21.9 [facility] [address] [address] July, [facility] [id number] [place] [address] July, [facility] [id number] [place] [address] July, Chronic obstructive pulmonary disease, unspecified COPD type J44.9 [facility] [id number] [place] [address] July, [facility] [id number] [place] [address] July, [place] [id number] [place] [address] July, Interstitial cystitis N30.10 ; Fibromyalgia M79.7 [...] Dysuria R30.0 and Generalized anxiety disorder F41.1 [facility] [id number] [place] [address] Jun, [facility] [id number] [place] [address] Jun, Chronic obstructive pulmonary disease, unspecified COPD type J44.9 ; COPD exacerbation J44.1 and Sore throat J02.9 [facility] [id number] [place] [address] Jun, Fibromyalgia M79.7 [facility] [id number] [place] [address] Jun, Fibromyalgia M79.7 [facility] [id number] [place] [address] May, [facility] [address], [place] [address] May, [facility] [id number] [place] [address] May, Fibromyalgia M79.7 [facility] [id number] [place] [address] Mar, [facility] [id number] [place] [address] Mar, Epilepsy G40.909 ; Lumbago M54.5 ; Esophageal reflux K21.9 ; Fibromyalgia M79.7 ; Chronic obstructive pulmonary disease, unspecified COPD type J44.9 ; Vitamin D deficiency E55.9 ; Fluid level behind tympanic membrane of right ear H65.91 ; Irritable bowel syndrome with diarrhea K58.0 ; Hematochezia K92.1 and Generalized anxiety disorder F41.1 [facility] [id number] [place] [address] Mar, [facility] [id number] [place] [address] Mar, [facility] [id number] [place] [address] Mar, Vitamin D deficiency E55.9 [facility] [id number] [place] [address] Feb, [facility] [id number] [place] [address] Feb, [facility] [address], [place] [address] Jan, Fibromyalgia M79.7 [facility] [address], [place] [address] Jan, [facility] [address], [place] [address] Jan, [facility] [id number] [place] [address] Jan, Vitamin D deficiency E55.9 [facility] [id number] [place] [address] Dec, [facility] [id number] [place] [address] Dec, [facility] [address] [address] Dec, Generalized anxiety disorder F41.1 [place] [address] [address] Dec, Dysuria R30.0 ; Acute bilateral low back pain without sciatica M54.5 and Encounter for immunization Z23 [place] [address] [address] Oct, [place] [address] [address] Oct, Fibromyalgia M79.7 [facility] [id number] [place] [address] Sep, Dysuria R30.0 and Acute bronchitis, unspecified organism J20.9 [facility] [id number] [place] [address] Sep, [place] [id number] [place] [address] Sep, Rectal prolapse K62.3 [place] [address] [address] [id number] [place] [address] Sep, Chronic obstructive pulmonary disease, unspecified COPD type J44.9 [place] [address] [id number] Aug, [facility] [address] [id number] Aug, [facility] [address] [address] [id number] [place] [address] Aug, Light headedness R42 ; On antiepileptic therapy Z79.899 ; Vitamin D deficiency E55.9 ; Screening for lipid disorders Z13.220 ; Dysuria R30.0 and Hemorrhoids, unspecified hemorrhoid type K64.9 [place] [id number] [place] [address] Aug, Internal prolapsed hemorrhoids K64.8 [place] [address] [address] July, [address] [address] May, [address] [address] May, Fever and chills R50.9 and Influenza B J10.[address] [address] Apr, [address] [address] Apr, Fibromyalgia M79.7 and Generalized anxiety disorder F41.1 [place] [id number] [place] [address] Mar, Esophageal reflux K21.9 ; Generalized anxiety disorder F41.1 and Epilepsy G40.[address] [address] Mar, Epilepsy G40.909 ; Esophageal reflux K21.9 ; Fibromyalgia M79.7 ; Generalized anxiety disorder F41.1 ; Pain of left foot M79.672 ; Pain in right foot M79.671 ; Ear pain, right H92.01 ; Tinnitus of both ears H93.13 ; Chronic obstructive pulmonary disease, unspecified COPD type J44.9 ; Vitamin D deficiency E55.9 ; Screening for lipid disorders Z13.220 and On antiepileptic therapy Z79.8[address] [address] [address] Feb, [facility] [address] [place] [address] Feb, [facility] [id number] [place] [address] Feb, Dysuria R30.0 and Plantar fasciitis of right foot M72.2 [facility] [id number] [place] [address] Feb, [facility] [id number] [place] [address] Feb, [facility] [id number] [place] [address] Jan, [facility] [id number] [place] [address] Jan, [facility] [id number] [place] [address] Dec, [facility] [id number] [place] [address] Dec, [facility] [id number] [place] [address] Dec, [facility] [id number] [place] [address] Nov, [facility] [id number] [place] [address] Sep, [facility] [address], [place] [address] Aug, Shortness of breath R06.02 and Acute suppurative otitis media of right ear without spontaneous rupture of tympanic membrane, recurrence not specified H66.001 [facility] [address], [place] [address] 14 Aug, 2016 Internal prolapsed hemorrhoids K64.8 [place] [id number] [place] [address] Jun, 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 [place] [address] [id number] [place] [address] May, Fibromyalgia M79.7 ; Interstitial cystitis N30.10 ; Intractable migraine without aura and without status migrainosus G43.019 ; Low vitamin D level E55.9 and Ringing in right ear H93.11 [place] [id number] [place] [address] May, [address] [address] May, Low vitamin D level E55.[address] [address] Apr, [place] [id number] [place] [address] Mar, [place] [id number] [place] [address] Mar, Acute suppurative otitis media of right ear without spontaneous rupture of tympanic membrane, recurrence not specified H66.001 ; Encounter for immunization Z23 ; Asthma with acute exacerbation, unspecified asthma severity J45.901 ; Memory problem R41.3 ; Acute pain of right knee M25.561 ; Chronic fatigue R53.82 and Excessive urinary volume R35.8 [place] [id number] [place] [address] Feb, [address] [address] Feb, [place] [id number] [place] [address] Jan, [place] [id number] [place] [address] Nov, Esophageal reflux 530.81 ; Anxiety 300.00 and Tingling in extremities 782.0 [facility] [id number] [place] [address] Oct, [facility] [id number] [place] [address] Oct, [facility] [id number] [place] [address] Oct, [facility] [id number] [place] [address] Oct, [facility] [id number] [place] [address] Oct, [facility] [id number] [place] [address] Sep, Other chronic allergic conjunctivitis 372.14 ; Irritable bowel syndrome 564.1 ; 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 ; Fibromyalgia 729.1 ; Extremity pain 729.5 and Neck pain 723.1 [facility] [id number] [place] [address] Sep, [facility] [id number] [place] [address] Aug, [facility] [id number] [place] [address] Aug, [facility] [id number] [place] [address] July, Vomiting 787.03 [facility] [address] [place] [phone] July, Dental examination V72.2 [facility] [id number] [place] [address] Jun, [facility] [id number] [place] [address] Jun, [facility] [address] [place] [address] May, 2014 [facility] [place] [facility] [address] [id number] [place] [address] May, [facility] [place] [facility] [address] [id number] [place] [address] 16 May, 2014 [facility] [place] [facility] [address] [id number] [place] [address] May, 2014 [facility] [place] [facility] [address] [id number] [place] [address] May, [facility] [place] [facility] [address] [id number] [place] [address] 05 May, 2014 [facility] [place] [facility] [address] [facility] [id number] [place] [address] May, [facility] [place] [facility] [address] [id number] [place] [address] May, [facility] [place] [facility] [address] [id number] [place] [address] May, [facility] [place] [facility] [address] [id number] [place] [address] Apr, 2014 [facility] [place] [facility] [address] [facility] [id number] [place] [address] Apr, 2014 [facility] [place] [facility] [address] [id number] [place] [address] Apr, 2014 [facility] [place] [facility] [address] [id number] [place] [address] Apr, 2014 [facility] [place] [facility] [address] [id number] [place] [address] Apr, 2014 [facility] [place] [facility] [address] [id number] [place] [address] 05 Apr, 2014 [facility] [place] [facility] [address] [id number] [place] [address] Mar, [facility] [place] [facility] [address] [id number] [place] [address] Mar, [facility] [place] [facility] [address] [id number] [place] [address] Mar, [facility] [place] [facility] [address] [id number] [place] [address] Mar, [facility] [place] [facility] [address] [id number] [place] [address] Mar, [facility] [place] [facility] [address] [id number] [place] [address] Mar, [facility] [place] [facility] [address] [id number] [place] [address] Mar, [facility] [place] [facility] [address] [id number] [place] [address] Mar, [facility] [place] [facility] [address] [id number] [place] [address] Mar, [facility] [place] [facility] [address] [id number] [place] [address] Mar, [facility] [place] [facility] [address] [id number] [place] [address] Mar, [facility] [place] [facility] [address] [id number] [address] Mar, [facility] [place] [facility] [address] [id number], [place] [address] Mar, [facility] [place] [facility] [address] [id number] [place] [address] Mar, [facility] [place] [facility] [address] [id number] [place] [address] Mar, [facility] [place] [facility] [address] [id number] [place] [address] Mar, [facility] [place] [facility] [address] [id number] [place] [address] 15 Mar, 2014 [facility] [address] [id number] [place] [address] Mar, [facility] [place] [facility] [address] [id number] [place] [address] Mar, [facility] [address] [id number] [place] [address] Feb, [facility] [place] [facility] [address] [id number] [place] [address] Feb, [facility] [place] [facility] [address] [id number] [place] [address] Feb, [facility] [place] [facility] [address] [id number] [place] [address] Feb, [facility] [place] [facility] [address] [id number] [place] [address] Jan, [facility] [place] [facility] [address] [id number] [place] [address] Jan, [facility] [place] [facility] [address] [id number] [place] [address] Jan, [facility] [place] [facility] [address] [id number] [place] [address] 14 Jan, 2014 [facility] [place] [facility] [address] [id number] [place] [address] 14 Jan, 2014 [facility] [place] [facility] [address] [id number] [place] [address] 14 Jan, 2014 [facility] [place] [facility] [address] [id number] [place] [address] Jan, [facility] [place] [facility] [address] [id number] [place] [address] 07 Jan, 2014 [facility] [place] [facility] [address] [id number] [place] [address] Dec, [facility] [place] [facility] [address] [id number] [place] [address] Dec, 2013 [facility] [place] [facility] [address] [id number] [place] [address] Dec, [facility] [place] [facility] [address] [id number] [place] [address] Dec, 2013 [facility] [place] [facility] [address] [id number] [place] [address] 22 Nov, 2013 [facility] [place] [facility] [address] [id number] [place] [address] 22 Nov, 2013 [facility] [place] [facility] [address] [id number] [place] [address] 08 Nov, 2013 [facility] [place] [facility] [address] [id number] [place] [address] 08 Nov, 2013 [facility] [place] [facility] [address] [id number] [place] [address] 05 Sep, 2013 [facility] [place] [facility] [address] [id number] [place] [address] 05 Sep, 2013 [facility] [place] [facility] [address] [id number] [place] [address] 04 Nov, 2013 [facility] [place] [facility] [address] [id number] [place] [address] 04 Nov, 2013 [facility] [place] [facility] [address] [id number], [place] [address] 03 Nov, 2013 [facility] [place] [facility] [address] [id number] [place] [address] 03 Nov, 2013 [facility] [place] [facility] [address] [id number] [place] [address] 15 Oct, 2013 [facility] [place] [facility] [address] [id number] [place] [address] 15 Oct, 2013 [facility] [place] [facility] [address] [id number], [place] [address] Sep, [facility] [place] [facility] [address] [id number] [place] [address] Sep, [facility] [place] [facility] [address] [id number] [place] [address] Sep, [facility] [place] [facility] [address] [id number] [place] [address] Sep, [facility] [place] [facility] [address] [id number] [place] [address] Sep, [facility] [place] [facility] [address] [id number] [place] [address] Sep, [facility] [place] [facility] [address] [id number] [place] [address] Aug, [facility] [place] [facility] [address] [id number] [place] [address] Aug, [facility] [place] [facility] [address] [id number] [place] [address] Aug, [facility] [place] [facility] [address] [id number] [place] [address] Aug, [facility] [place] [facility] [address] [id number] [place] [address] Aug, [facility] [place] [facility] [address] [id number] [place] [address] Aug, [facility] [place] [facility] [address] [id number] [place] [address] July, [facility] [place] [facility] [address] [id number] [place] [address] July, [facility] [place] [facility] [address] [id number] [place] [address] July, [facility] [place] [facility] [address] [id number] [place] [address] July, [facility] [place] [facility] [address] [id number] [place] [address] July, [facility] [place] [facility] [address] [id number] [place] [address] July, [facility] [place] [facility] [address] [id number] [place] [address] Jun, [facility] [place] [facility] [address] [id number] [place] [address] Jun, [facility] [place] [facility] [address] [id number] [place] [address] Jun, [facility] [place] [facility] [address] [id number] [place] [address] Jun, [facility] [place] [facility] [address] [id number] [place] [address] May, [facility] [place] [facility] [address] [id number] [place] [address] May, [facility] [place] [facility] [address] [id number] [place] [address] Apr, [facility] [place] [facility] [address] [id number] [place] [address] Apr, [facility] [place] [facility] [address] [id number] [place] [address] Apr, [facility] [place] [facility] [address] [id number] [place] [address] Apr, [facility] [place] [facility] [address] [id number] [place] [address] Mar, [facility] [place] [facility] [address] [id number] [place] [address] Mar, [facility] [place] [facility] [address] [id number] [place] [address] Mar, [facility] [place] [facility] [address] [id number] [place] [address] Mar, [facility] [place] [facility] [address] [id number] [place] [address] Mar, [facility] [place] [facility] [address] [id number] [place] [address] Mar, [facility] [place] [facility] [address] [id number] [place] [address] Feb, [facility] [place] [facility] [address] [id number] [place] [address] Feb, [facility] [place] [facility] [address] [id number] [place] [address] Jan, [facility] [place] [facility] [address] [id number] [place] [address] Jan, [facility] [place] [facility] [address] [id number] [place] [address] Jan, [facility] [place] [facility] [address] [id number] [place] [address] Jan, [facility] [place] [facility] [address] [id number] [place] [address] Nov, [facility] [place] [facility] [address] [id number] [place] [address] Nov, [facility] [place] [facility] [address] [id number] [place] [address] Oct, [facility] [place] [facility] [address] [id number] [place] [address] Oct, [facility] [place] [facility] [address] [id number] [place] [address] Sep, [facility] [place] [facility] [address] [id number] [place] [address] Sep, [facility] [place] [facility] [address] [id number] [place] [address] Sep, [facility] [place] [facility] [address] [id number] [place] [address] Aug, [facility] [address] [id number] [place] [address] Aug, [facility] [address] [id number] [place] [address] Aug, [facility] [address] [id number] [place] [address] Aug, [facility] [address] [id number] [place] [address] July, [facility] [address] [id number] [place] [address] July, [facility] [address] [id number] [place] [address] July, [facility] [address] [id number] [place] [address] July, [facility] [address] [id number] [place] [address] Jun, [facility] [address] [id number] [place] [address] Jun, [facility] [address] [id number] [place] [address] Jun, [facility] [address] [id number] [place] [address] May, [facility] [address] [id number] [place] [address] May, [facility] [address] [id number] [place] [address] Apr, [facility] [address] [id number] [place] [address] Apr, [facility] [address] [id number] [place] [address] Apr, [facility] [address] [id number] [place] [address] Apr, [facility] [place] [facility] [address] [id number] [place] [address] Mar, [facility] [place] [facility] [address] [id number] [place] [address] Mar, [facility] [place] [facility] [address] [id number] [place] [address] Mar, [facility] [place] [facility] [address] [id number] [place] [address] Mar, [facility] [place] [facility] [address] [id number] [place] [address] Feb, [facility] [place] [facility] [address] [id number] [place] [address] Feb, [facility] [place] [facility] [address] [id number] [place] [address] Feb, [facility] [place] [facility] [address] [id number] [place] [address] Feb, [facility] [place] [facility] [address] [id number] [place] [address] Feb, [facility] [place] [facility] [address] [id number] [place] [address] Feb, [facility] [place] [facility] [address] [id number] [place] [address] Feb, [facility] [place] [facility] [address] [id number] [place] [address] Feb, [facility] [place] [facility] [address] [id number] [place] [address] Jan, [facility] [place] [facility] [address] [id number] [place] [address] Jan, [facility] [place] [facility] [address] [id number] [place] [address] 15 Jan, 2012 [facility] [place] [facility] [address] [id number] [place] [address] 15 Jan, 2012 [facility] [place] [facility] [address] [id number] [place] [address] 14 Jan, 2012 [facility] [place] [facility] [address] [facility] [id number] [place] [address] 13 Jan, 2012 [facility] [place] [facility] [address] [id number] [place] [address] 13 Jan, 2012 [facility] [place] [facility] [address] [id number] [place] [address], [place] [address] 12 Jan, 2012 [facility] [place] [facility] [address] [id number] [place] [address] Jan, [facility] [place] [facility] [address] [facility] [id number] [place] [address] 06 Jan, 2012 [facility] [place] [facility] [address] [id number] [place] [address] Jan, [facility] [place] [facility] [address] [facility] [id number] [place] [address] 31 Dec, 2011 [facility] [place] [facility] [address] [facility] [id number] [place] [address] 31 Dec, 2011 [facility] [place] [facility] [address] [facility] [id number] [place] [address] 29 Dec, 2011 [facility] [place] [facility] [address] [id number], [place] [address] 29 Dec, 2011 [facility] [place] [facility] [address] [id number] [place] [address] 29 Dec, 2011 [facility] [place] [facility] [address] [facility] [id number] [place] [address] 29 Dec, 2011 [facility] [place] [facility] [address] [facility] [id number], [place] [address] 19 Dec, 2011 [facility] [place] [facility] [address] [id number] [place] [address] Dec, [facility] [place] [facility] [address] [id number] [place] [address] Dec, [facility] [place] [facility] [address] [id number] [place] [address] Dec, [facility] [place] [facility] [address] [id number] [place] [address] Dec, [facility] [place] [facility] [address] [id number] [place] [address] Dec, [facility] [place] [facility] [address] [id number] [place] [address] Nov, [facility] [place] [facility] [address] [id number] [place] [address] Oct, [facility] [place] [facility] [address] [id number] [place] [address] Oct, [facility] [place] [facility] [address] [id number] [place] [address] Oct, [facility] [place] [facility] [address] [id number] [place] [address] Oct, [facility] [place] [facility] [address] [id number] [place] [address] Sep, [facility] [place] [facility] [address] [id number] [place] [address] Sep, [facility] [place] [facility] [address] [id number] [place] [address] Sep, [facility] [place] [facility] [address] [id number] [place] [address] Sep, [facility] [place] [facility] [address] [id number] [place] [address] Aug, [facility] [place] [facility] [address] [id number] [place] [address] Aug, [facility] [address] [facility] [id number], [place] [address] Aug, [facility] [address] [id number], [place] [address] Aug, [facility] [address] [id number], [place] [address] Aug, [facility] [address] [id number], [place] [address] July, [facility] [address] [id number], [place] [address] July, [facility] [id number], [place] [address] July, [facility] [address] [id number], [place] [address] Dec, IMMUNIZATIONS No Known Immunizations SOCIAL HISTORY Never Assessed REASON FOR VISIT PLAN OF CARE VITAL SIGNS Height 58 in 2014-05-17 Weight 170.19 lbs 2014-05-17 Temperature 98.1 degrees Fahrenheit 2014-05-17 Heart Rate 100 bpm 2014-05-17 Respiratory Rate 22 2014-05-17 Blood pressure systolic 129 mmHg 2014-05-17 Blood pressure diastolic 86 mmHg 2014-05-17 MEDICATIONS Unknown Medications RESULTS No Results PROCEDURES Procedure Date Ordered Result Body Site URINALYSIS, AUTO, W/O SCOPE May 17, 2014 INSTRUCTIONS MEDICATIONS ADMINISTERED No Known Medications MEDICAL (GENERAL) HISTORY Type Description Date Medical History epilepsy Medical History interstitial cystitis Surgical History hysterectomy Surgical History breast biopsy w/ Dr. Hickey 2009 Surgical History cholecystectomy 2012 Surgical History tonsillectomy Surgical History tubal ligation Surgical History urethral stretching 2008 Surgical History section Hospitalization History surgical purposes
--- OUTSIDE RECORDS SUMMARY | 2018-10-24 12:04 | XMS REPORT ---
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 Name Role Phone [facility] Unavailable PROBLEMS Type Condition ICD9-CM Code UWX14-UI Code Onset Dates Condition Status SNOMED Code Problem Chronic periodontal disease K05.6 Active 1176149 Problem MRSA (methicillin resistant staph aureus) culture positive Z22.322 Active 198662981 Problem Interstitial cystitis N30.10 Active 632386944 Problem Epilepsy G40.909 Active 00973184 Problem Esophageal reflux K21.9 Active 806234974 Problem Major depressive disorder F32.9 Active 903438162 Problem Lumbago M54.5 Active 627695542 Problem Generalized anxiety disorder F41.1 Active 114352591 Problem Tinnitus of both ears H93.13 Active 0045026662289 Problem Chronic obstructive pulmonary disease, unspecified COPD type J44.9 Active 57468155 Problem On antiepileptic therapy Z79.899 Active 489892586 Problem Paresthesia of skin R20.2 Active 64882341 Problem Irritable bowel syndrome without diarrhea K58.9 Active 00075725 Problem Paresthesia R20.2 Active 91522070 Problem Fibromyalgia M79.7 Active 71972567 Problem Vitamin D deficiency E55.9 Active 09519917 Problem Irritable bowel syndrome with diarrhea K58.0 Active 518858454 Problem Menopausal symptoms N95.1 Active 88264046 Problem COPD exacerbation J44.1 Active [id number] ALLERGIES No Information ENCOUNTERS Encounter Location Date Diagnosis [facility] [address] [facility] [id number], [place] [address] Sep, [facility] [address] [facility] [id number], [place] [address] Sep, [facility] [address] [facility] [id number], [place] [address] Sep, Rectal pain K62.89 [facility] [address], [place] [address] Aug, [address] [address] Aug, Well woman exam (no gynecological exam) Z00.[address] [address] Aug, [facility] [id number] [place] [address] Aug, Well woman exam (no gynecological exam) Z00.00 and Hemorrhoids, unspecified hemorrhoid type K64.[address] [address] Aug, [facility] [address], [place] [address] July, Dysuria R30.0 ; Bleeding hemorrhoids K64.9 and Hematochezia K92.1 [facility] [id number] [place] [address] July, [facility] [id number] [place] [address] July, Dysuria R30.0 [facility] [address] [id number], [place] [address] July, Paresthesia R20.2 [facility] [id number] [place] [address] July, [facility] [address] [place] [address] July, Fibromyalgia M79.7 and Generalized anxiety disorder F41.1 [facility] [address], [place] [address] July, [facility] [address], [place] [address] Jun, [facility] [id number] [place] [address] Jun, Dysuria R30.0 ; Major depressive disorder F32.9 ; Interstitial cystitis N30.10 ; Vitamin D deficiency E55.9 ; Hematochezia K92.1 ; Paresthesia of skin R20.2 and Weight loss R63.4 [place] [address] [address] Jun, Fibromyalgia M79.7 [facility] [address] [address] May, Fibromyalgia M79.7 [place] [address] [address] Apr, [place] [address] [address] Mar, Fibromyalgia M79.7 [place] [address] [address] Feb, Fibromyalgia M79.7 [place] [address] [address] Feb, Acute cystitis with hematuria N30.01 [place] [address] [address] Feb, Acute cystitis with hematuria N30.01 ; COPD exacerbation J44.1 ; Interstitial cystitis N30.10 ; Nausea R11.0 and Rectal bleeding K62.5 [place] [id number] [place] [address] Jan, Fibromyalgia M79.7 [facility] [address] [id number] Dec, [facility] [id number] [place] [id number] Dec, [facility] [address] [address] Dec, Fibromyalgia M79.7 [facility] [id number] [place] [address] Dec, [facility] [id number] [place] [address] Oct, [facility] [id number] [place] [id number] Oct, [facility] [address] [address] Oct, [facility] [address] [address] Sep, [facility] [address] [address] Sep, [facility] [address] [address] Sep, [facility] [address] [id number] Aug, Dental examination Z01.20 [facility] [address] [address] Aug, Abscess of axilla, left L02.412 [facility] [id number] [place] [address] Aug, Esophageal reflux K21.9 [facility] [address] [address] Aug, [facility] [id number] [place] [address] Aug, Esophageal reflux K21.9 ; Fluid level behind tympanic membrane of right ear H65.91 ; Fibromyalgia M79.7 and Lumbago M54.5 [facility] [id number] [place] [address] Aug, Esophageal reflux K21.9 [facility] [address] [address] July, [facility] [address], [place] [address] July, [facility] [address] [place] [address] July, Chronic obstructive pulmonary disease, unspecified COPD type J44.9 [facility] [id number] [place] [address] July, [facility] [address] [place] [address] July, [place] [id number] [place] [address] July, Interstitial cystitis N30.10 ; Fibromyalgia M79.7 [...] Dysuria R30.0 and Generalized anxiety disorder F41.1 [place] [address], [place] [address] Jun, [place] [address], [place] [address] Jun, Chronic obstructive pulmonary disease, unspecified COPD type J44.9 ; COPD exacerbation J44.1 and Sore throat J02.9 [place] [address], [place] [address] Jun, Fibromyalgia M79.7 [facility] [address], [place] [address] Jun, Fibromyalgia M79.7 [facility] [id number] [place] [address] May, [facility] [address] [place] [address] May, [facility] [id number] [place] [address] May, Fibromyalgia M79.7 [facility] [id number] [place] [address] Mar, [facility] [id number] [place] [address] Mar, Epilepsy G40.909 ; Lumbago M54.5 ; Esophageal reflux K21.9 ; Fibromyalgia M79.7 ; Chronic obstructive pulmonary disease, unspecified COPD type J44.9 ; Vitamin D deficiency E55.9 ; Fluid level behind tympanic membrane of right ear H65.91 ; Irritable bowel syndrome with diarrhea K58.0 ; Hematochezia K92.1 and Generalized anxiety disorder F41.1 [facility] [id number] [place] [address] Mar, [facility] [id number] [place] [address] Mar, [facility] [id number] [place] [address] Mar, Vitamin D deficiency E55.9 [facility] [id number] [place] [address] Feb, [facility] [id number] [place] [address] Feb, [facility] [id number] [place] [address] Jan, Fibromyalgia M79.7 [facility] [id number] [place] [address] Jan, [facility] [id number] [place] [address] Jan, [facility] [id number] [place] [address] Jan, Vitamin D deficiency E55.9 [facility] [id number] [place] [address] Dec, [facility] [id number] [place] [address] Dec, [facility] [address] [address] Dec, Generalized anxiety disorder F41.1 [facility] [id number] [place] [address] Dec, Dysuria R30.0 ; Acute bilateral low back pain without sciatica M54.5 and Encounter for immunization Z23 [place] [id number] [place] [address] Oct, [facility] [address] [address] Oct, Fibromyalgia M79.7 [facility] [id number] [place] [address] Sep, Dysuria R30.0 and Acute bronchitis, unspecified organism J20.9 [facility] [id number] [place] [address] Sep, [facility] [id number] [place] [address] Sep, Rectal prolapse K62.3 [facility] [id number] [place] [address] Sep, Chronic obstructive pulmonary disease, unspecified COPD type J44.9 [facility] [id number] [place] [id number] Aug, [facility] [id number] [place] [id number] Aug, [facility] [address] [place] [address] Aug, Light headedness R42 ; On antiepileptic therapy Z79.899 ; Vitamin D deficiency E55.9 ; Screening for lipid disorders Z13.220 ; Dysuria R30.0 and Hemorrhoids, unspecified hemorrhoid type K64.[address] [address] Aug, Internal prolapsed hemorrhoids K64.8 [place] [address] [address] July, [address] [address] May, [address] [address] May, Fever and chills R50.9 and Influenza B J10.1 [place] [id number] [place] [address] Apr, [place] [id number] [place] [address] Apr, Fibromyalgia M79.7 and Generalized anxiety disorder F41.[address] [address] Mar, Esophageal reflux K21.9 ; Generalized anxiety disorder F41.1 and Epilepsy G40.909 [place] [id number] [place] [address] Mar, Epilepsy G40.909 ; Esophageal reflux K21.9 ; Fibromyalgia M79.7 ; Generalized anxiety disorder F41.1 ; Pain of left foot M79.672 ; Pain in right foot M79.671 ; Ear pain, right H92.01 ; Tinnitus of both ears H93.13 ; Chronic obstructive pulmonary disease, unspecified COPD type J44.9 ; Vitamin D deficiency E55.9 ; Screening for lipid disorders Z13.220 and On antiepileptic therapy Z79.[address] [id number], [place] [address] Feb, [facility] [id number] [place] [address] Feb, [facility] [id number] [place] [address] Feb, Dysuria R30.0 and Plantar fasciitis of right foot M72.2 [facility] [id number] [place] [address] Feb, [facility] [id number] [place] [address] Feb, [facility] [id number] [place] [address] Jan, [facility] [id number] [place] [address] Jan, [facility] [id number] [place] [address] Dec, [facility] [id number] [place] [address] Dec, [facility] [id number] [place] [address] Dec, [facility] [address] [place] [address] Nov, [facility] [id number] [place] [address] Sep, [facility] [address] [place] [address] Aug, Shortness of breath R06.02 and Acute suppurative otitis media of right ear without spontaneous rupture of tympanic membrane, recurrence not specified H66.001 [facility] [address], [place] [address] 14 Aug, 2016 Internal prolapsed hemorrhoids K64.8 [place] [id number] [place] [address] Jun, 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 [place] [id number] [place] [address] May, Fibromyalgia M79.7 ; Interstitial cystitis N30.10 ; Intractable migraine without aura and without status migrainosus G43.019 ; Low vitamin D level E55.9 and Ringing in right ear H93.11 [place] [id number] [place] [address] May, [place] [address] [address] May, Low vitamin D level E55.9 [place] [address] [address] Apr, [place] [id number] [place] [address] Mar, [place] [id number] [place] [address] Mar, Acute suppurative otitis media of right ear without spontaneous rupture of tympanic membrane, recurrence not specified H66.001 ; Encounter for immunization Z23 ; Asthma with acute exacerbation, unspecified asthma severity J45.901 ; Memory problem R41.3 ; Acute pain of right knee M25.561 ; Chronic fatigue R53.82 and Excessive urinary volume R35.8 [place] [id number] [place] [address] Feb, [address] [address] Feb, [place] [id number] [place] [address] Jan, [place] [address] [address] Nov, Esophageal reflux 530.81 ; Anxiety 300.00 and Tingling in extremities 782.0 [facility] [id number] [place] [address] Oct, [facility] [id number] [place] [address] Oct, [facility] [address] [address] Oct, [facility] [address] [address] Oct, [facility] [address] [address] Oct, [facility] [address] [address] Sep, Other chronic allergic conjunctivitis 372.14 ; Irritable bowel syndrome 564.1 ; 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 ; Fibromyalgia 729.1 ; Extremity pain 729.5 and Neck pain 723.1 [facility] [id number] [place] [address] Sep, [facility] [id number] [place] [address] Aug, [facility] [id number] [place] [address] Aug, [facility] [id number] [place] [address] July, Vomiting 787.03 [facility] [id number] [place] [id number] July, Dental examination V72.2 [facility] [id number] [place] [address] Jun, [facility] [id number] [place] [address] Jun, [facility] [place] [facility] [address] [id number] [place] [address] May, 2014 [facility] [place] [facility] [address] [id number] [place] [address] May, 2014 [facility] [place] [facility] [address] [id number] [place] [address] May, 2014 [facility] [place] [facility] [address] [id number] [place] [address] May, 2014 [facility] [place] [facility] [address] [id number] [place] [address] May, [facility] [place] [facility] [address] [id number] [place] [address] May, 2014 [facility] [place] [facility] [address] [facility] [id number] [place] [address] May, [facility] [place] [facility] [address] [id number] [place] [address] May, 2014 [facility] [place] [facility] [address] [id number] [place] [address] May, [facility] [place] [facility] [address] [id number] [place] [address] Apr, 2014 [facility] [place] [facility] [address] [facility] [id number] [place] [address] Apr, 2014 [facility] [place] [facility] [address] [facility] [id number] [place] [address] Apr, 2014 [facility] [place] [facility] [address] [id number] [place] [address] Apr, 2014 [facility] [place] [facility] [address] [id number] [place] [address] Apr, 2014 [facility] [place] [facility] [address] [facility] [id number] [place] [address] Apr, 2014 [facility] [place] [facility] [address] [facility] [id number], [place] [address] Mar, [facility] [place] [facility] [address] [id number] [place] [address] Mar, [facility] [place] [facility] [address] [id number] [place] [address] Mar, [facility] [place] [facility] [address] [id number] [place] [address] Mar, [facility] [place] [facility] [address] [id number] [place] [address] Mar, [facility] [place] [facility] [address] [id number] [place] [address] Mar, [facility] [place] [facility] [address] [id number] [place] [address] Mar, [facility] [place] [facility] [address] [id number] [place] [address] Mar, [facility] [place] [facility] [address] [id number] [place] [address] Mar, [facility] [place] [facility] [address] [id number] [place] [address] Mar, [facility] [place] [facility] [address] [id number] [place] [address] Mar, [facility] [place] [facility] [address] [id number] [place] [address] Mar, [facility] [place] [facility] [address] [id number] [place] [address] Mar, [facility] [place] [facility] [address] [id number] [place] [address] Mar, [facility] [place] [facility] [address] [id number] [place] [address] Mar, [facility] [place] [facility] [address] [id number] [place] [address] Mar, [facility] [place] [facility] [address] [id number] [place] [address] 15 Mar, 2014 [facility] [place] [facility] [address] [id number] [place] [address] Mar, [facility] [place] [facility] [address] [id number] [place] [address] Mar, [facility] [place] [facility] [address] [id number] [place] [address] Feb, [facility] [place] [facility] [address] [id number] [place] [address] Feb, [facility] [place] [facility] [address] [id number] [place] [address] Feb, [facility] [place] [facility] [address] [id number] [place] [address] Feb, [facility] [place] [facility] [address] [id number] [place] [address] Jan, [facility] [place] [facility] [address] [id number] [place] [address] Jan, [facility] [place] [facility] [address] [id number] [place] [address] Jan, [facility] [place] [facility] [address] [id number] [place] [address] 14 Jan, 2014 [facility] [place] [facility] [address] [id number] [place] [address] Jan, [facility] [place] [facility] [address] [id number] [place] [address] Jan, [facility] [place] [facility] [address] [id number] [place] [address] Jan, [facility] [place] [facility] [address] [id number] [place] [address] Jan, [facility] [place] [facility] [address] [id number] [place] [address] Dec, [facility] [place] [facility] [address] [id number] [place] [address] 20 Dec, 2013 [facility] [place] [facility] [address] [id number] [place] [address] Dec, [facility] [place] [facility] [address] [id number] [place] [address] 17 Dec, 2013 [facility] [place] [facility] [address] [id number] [place] [address] 22 Nov, 2013 [facility] [place] [facility] [address] [id number] [place] [address] 22 Nov, 2013 [facility] [place] [facility] [address] [id number] [place] [address] 08 Nov, 2013 [facility] [place] [facility] [address] [id number] [place] [address] 08 Nov, 2013 [facility] [place] [facility] [address] [id number] [place] [address] 05 Sep, 2013 [facility] [place] [facility] [address] [id number] [place] [address] 05 Sep, 2013 [facility] [place] [facility] [address] [id number] [place] [address] 04 Nov, 2013 [facility] [place] [facility] [address] [id number] [place] [address] 04 Nov, 2013 [facility] [place] [facility] [address] [id number], [place] [address] 03 Nov, 2013 [facility] [place] [facility] [address] [id number] [place] [address] 03 Nov, 2013 [facility] [place] [facility] [address] [id number] [place] [address] 15 Oct, 2013 [facility] [place] [facility] [address] [id number] [place] [address] 15 Oct, 2013 [facility] [place] [facility] [address] [id number] [place] [address] Sep, [facility] [place] [facility] [address] [id number] [place] [address] Sep, [facility] [place] [facility] [address] [id number] [place] [address] Sep, [facility] [place] [facility] [address] [id number] [place] [address] Sep, [facility] [place] [facility] [address] [id number] [place] [address] Sep, [facility] [place] [facility] [address] [id number] [place] [address] Sep, [facility] [place] [facility] [address] [id number] [place] [address] Aug, [facility] [place] [facility] [address] [id number] [place] [address] Aug, [facility] [place] [facility] [address] [id number] [place] [address] Aug, [facility] [place] [facility] [address] [id number] [place] [address] Aug, [facility] [place] [facility] [address] [id number] [place] [address] Aug, [facility] [place] [facility] [address] [id number] [place] [address] Aug, [facility] [place] [facility] [address] [id number] [place] [address] July, [facility] [place] [facility] [address] [id number] [place] [address] July, [facility] [place] [facility] [address] [id number] [place] [address] July, [facility] [place] [facility] [address] [id number] [place] [address] July, [facility] [place] [facility] [address] [id number] [place] [address] July, [facility] [place] [facility] [address] [id number] [place] [address] July, [facility] [place] [facility] [address] [id number] [place] [address] Jun, [facility] [place] [facility] [address] [id number] [place] [address] Jun, [facility] [place] [facility] [address] [id number] [place] [address] Jun, [facility] [place] [facility] [address] [id number] [place] [address] Jun, [facility] [place] [facility] [address] [id number] [place] [address] May, [facility] [place] [facility] [address] [id number] [place] [address] May, [facility] [place] [facility] [address] [id number] [place] [address] Apr, [facility] [place] [facility] [address] [id number] [place] [address] Apr, [facility] [place] [facility] [address] [id number] [place] [address] Apr, [facility] [place] [facility] [address] [id number] [place] [address] Apr, [facility] [place] [facility] [address] [id number] [place] [address] Mar, [facility] [place] [facility] [address] [id number] [place] [address] Mar, [facility] [place] [facility] [address] [id number] [place] [address] Mar, [facility] [place] [facility] [address] [id number] [place] [address] Mar, [facility] [address] [id number] [place] [address] Mar, [facility] [place] [facility] [address] [id number] [place] [address] Mar, [facility] [place] [facility] [address] [id number] [place] [address] Feb, [facility] [place] [facility] [address] [id number] [place] [address] Feb, [facility] [place] [facility] [address] [id number] [place] [address] Jan, [facility] [place] [facility] [address] [id number] [place] [address] Jan, [facility] [place] [facility] [address] [id number] [place] [address] Jan, [facility] [place] [facility] [address] [id number] [place] [address] Jan, [facility] [place] [facility] [address] [id number] [place] [address] Nov, [facility] [place] [facility] [address] [id number] [place] [address] Nov, [facility] [place] [facility] [address] [id number] [place] [address] Oct, [facility] [place] [facility] [address] [id number] [place] [address] Oct, [facility] [place] [facility] [address] [id number] [place] [address] Sep, [facility] [place] [facility] [address] [id number] [place] [address] Sep, [facility] [place] [facility] [address] [id number] [place] [address] Sep, [facility] [place] [facility] [address] [id number] [place] [address] Aug, [facility] [address] [id number] [place] [address] Aug, [facility] [place] [facility] [address] [id number] [place] [address] Aug, [facility] [address] [id number] [place] [address] Aug, [facility] [address] [id number] [place] [address] July, [facility] [address] [id number] [place] [address] July, [facility] [address] [id number] [place] [address] July, [facility] [address] [id number] [place] [address] July, [facility] [address] [id number] [place] [address] Jun, [facility] [address] [id number] [place] [address] Jun, [facility] [address] [id number] [place] [address] Jun, [facility] [place] [facility] [address] [id number] [place] [address] May, [facility] [place] [facility] [address] [id number] [place] [address] May, [facility] [place] [facility] [address] [id number] [place] [address] Apr, [facility] [place] [facility] [address] [id number] [place] [address] Apr, [facility] [place] [facility] [address] [id number] [place] [address] Apr, [facility] [place] [facility] [address] [id number] [place] [address] Apr, [facility] [place] [facility] [address] [id number] [place] [address] Mar, [facility] [place] [facility] [address] [facility] [id number] [place] [address] Mar, [facility] [place] [facility] [address] [id number] [place] [address] Mar, [facility] [place] [facility] [address] [id number] [place] [address] Mar, [facility] [place] [facility] [address] [id number] [place] [address] Feb, [facility] [place] [facility] [address] [id number] [place] [address] Feb, [facility] [place] [facility] [address] [id number] [place] [address] Feb, [facility] [place] [facility] [address] [id number] [place] [address] Feb, [facility] [place] [facility] [address] [id number] [place] [address] Feb, [facility] [place] [facility] [address] [id number] [place] [address] Feb, [facility] [place] [facility] [address] [id number] [place] [address] Feb, [facility] [place] [facility] [address] [id number] [place] [address] Feb, [facility] [place] [facility] [address] [id number] [place] [address] Jan, [facility] [place] [facility] [address] [id number] [place] [address] Jan, [facility] [place] [facility] [address] [id number] [place] [address] 15 Jan, 2012 [facility] [place] [facility] [address] [id number] [place] [address] 15 Jan, 2012 [facility] [place] [facility] [address] [id number] [place] [address] 14 Jan, 2012 [facility] [place] [facility] [address] [id number] [place] [address] 13 Jan, 2012 [facility] [place] [facility] [address] [id number] [place] [address] 13 Jan, 2012 [facility] [place] [facility] [address] [id number] [place] [address], [place] [address] 12 Jan, 2012 [facility] [place] [facility] [address] [id number] [place] [address] Jan, [facility] [place] [facility] [address] [facility] [id number] [place] [address] Jan, [facility] [place] [facility] [address] [id number] [place] [address] Jan, [facility] [place] [facility] [address] [facility] [id number] [place] [address] 31 Dec, 2011 [facility] [place] [facility] [address] [facility] [id number] [place] [address] 31 Dec, 2011 [facility] [place] [facility] [address] [id number] [place] [address] 29 Dec, 2011 [facility] [place] [facility] [address] [id number] [place] [address] 29 Dec, 2011 [facility] [place] [facility] [address] [id number] [place] [address] 29 Dec, 2011 [facility] [place] [facility] [address] [facility] [id number] [place] [address] 29 Dec, 2011 [facility] [place] [facility] [address] [facility] [id number] [place] [address] Dec, [facility] [place] [facility] [address] [id number] [place] [address] Dec, [facility] [place] [facility] [address] [id number] [place] [address] Dec, [facility] [place] [facility] [address] [id number] [place] [address] Dec, [facility] [place] [facility] [address] [id number] [place] [address] Dec, [facility] [place] [facility] [address] [id number] [place] [address] Dec, [facility] [place] [facility] [address] [id number] [place] [address] Nov, [facility] [place] [facility] [address] [id number] [place] [address] Oct, [facility] [place] [facility] [address] [id number] [place] [address] Oct, [facility] [place] [facility] [address] [id number] [place] [address] Oct, [facility] [place] [facility] [address] [id number] [place] [address] Oct, [facility] [place] [facility] [address] [id number] [place] [address] Sep, [facility] [place] [facility] [address] [id number], [place] [address] Sep, [facility] [place] [facility] [address] [id number] [place] [address] Sep, [facility] [place] [facility] [address] [id number] [place] [address] Sep, [facility] [place] [facility] [address] [id number] [place] [address] Aug, [facility] [place] [facility] [address] [id number], [place] [address] Aug, [facility] [address] [id number], [place] [address] Aug, [facility] [address] [id number], [place] [address] Aug, [facility] [address] [id number], [place] [address] Aug, [facility] [address] [id number], [place] [address] July, [facility] [address] [id number], [place] [address] July, [facility] [id number], [place] [address] July, [facility] [address] [id number], [place] [address] Dec, IMMUNIZATIONS No Known Immunizations SOCIAL HISTORY Never Assessed REASON FOR VISIT PLAN OF CARE VITAL SIGNS MEDICATIONS Unknown Medications RESULTS No Results PROCEDURES Procedure Date Ordered Result Body Site COMPREHENSIVE CARE MANAGEMENT May 28, 2014 INSTRUCTIONS MEDICATIONS ADMINISTERED No Known Medications MEDICAL (GENERAL) HISTORY Type Description Date Medical History epilepsy Medical History interstitial cystitis Surgical History hysterectomy Surgical History breast biopsy w/ Dr. Hickey 2009 Surgical History cholecystectomy 2012 Surgical History tonsillectomy Surgical History tubal ligation Surgical History urethral stretching 2008 Surgical History section Hospitalization History surgical purposes
--- OUTSIDE RECORDS SUMMARY | 2018-10-24 12:05 | XMS REPORT ---
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 Name Role Phone Migration, Doctor Unavailable Unavailable PROBLEMS Type Condition ICD9-CM Code [id number] Code Onset Dates Condition Status SNOMED Code Problem Chronic periodontal disease K05.6 Active 8842830 Problem MRSA (methicillin resistant staph aureus) culture positive Z22.322 Active 926687735 Problem Interstitial cystitis N30.10 Active 214632214 Problem Epilepsy G40.909 Active 91636789 Problem Esophageal reflux K21.9 Active 012694223 Problem Major depressive disorder F32.9 Active 550941546 Problem Lumbago M54.5 Active 601335707 Problem Generalized anxiety disorder F41.1 Active 165998564 Problem Tinnitus of both ears H93.13 Active [id number] Problem Chronic obstructive pulmonary disease, unspecified COPD type J44.9 Active 89905788 Problem On antiepileptic therapy Z79.899 Active 570579231 Problem Paresthesia of skin R20.2 Active 95398771 Problem Irritable bowel syndrome without diarrhea K58.9 Active 24132725 Problem Paresthesia R20.2 Active 80545191 Problem Fibromyalgia M79.7 Active 68448659 Problem Vitamin D deficiency E55.9 Active 74860001 Problem Irritable bowel syndrome with diarrhea K58.0 Active 821159234 Problem Menopausal symptoms N95.1 Active 01659332 Problem COPD exacerbation J44.1 Active 794072076 ALLERGIES Substance Reaction Event Type Date Status Benzodiazepines Failed UDS Non Drug Allergy Jun, Active Hydrocodone Failed UDS Non Drug Allergy Jun, Active Prednisone Unknown Drug Allergy Jun, Active Ibuprofen 400 Mg Tablet Unknown Non Drug Allergy Jun, Active Amitiza Unknown Drug Allergy Jun, Active Tramadol Unknown Drug Allergy Jun, Active Artane unknown Drug Allergy Jun, Active Sulfa(sulfonamide Antibiotics) Unknown Non Drug Allergy Jun, Active Nitrofurantoin Unknown Drug Allergy Jun, Active Cephalexin Unknown Drug Allergy Jun, Active ENCOUNTERS Encounter Location Date Diagnosis [facility] [address] [address] Aug, Well woman exam (no gynecological exam) Z00.00 [facility] [address] [address] Aug, [facility] [address], [place] [address] Aug, Well woman exam (no gynecological exam) Z00.00 and Hemorrhoids, unspecified hemorrhoid type K64.9 [facility] [address] [address] Aug, [facility] [id number] [place] [address] July, Dysuria R30.0 ; Bleeding hemorrhoids K64.9 and Hematochezia K92.1 [facility] [id number] [address] July, [facility] [id number] [place] [address] July, Dysuria R30.0 [facility] [id number] [place] [address] July, Paresthesia R20.2 [facility] [id number] [place] [address] July, [facility] [id number] [place] [phone] July, Fibromyalgia M79.7 and Generalized anxiety disorder F41.1 [facility] [address], [place] [address] July, [facility] [id number] [place] [address] Jun, [facility] [address] [place] [address] Jun, Dysuria R30.0 ; Major depressive disorder F32.9 ; Interstitial cystitis N30.10 ; Vitamin D deficiency E55.9 ; Hematochezia K92.1 ; Paresthesia of skin R20.2 and Weight loss R63.4 [facility] [id number] [place] [address] Jun, Fibromyalgia M79.7 [facility] [id number] [place] [address] May, Fibromyalgia M79.7 [facility] [address] [address] Apr, [facility] [address] [address] Mar, Fibromyalgia M79.7 [facility] [id number] [place] [address] Feb, Fibromyalgia M79.7 [facility] [id number] [place] [address] Feb, Acute cystitis with hematuria N30.01 [facility] [id number] [place] [address] Feb, Acute cystitis with hematuria N30.01 ; COPD exacerbation J44.1 ; Interstitial cystitis N30.10 ; Nausea R11.0 and Rectal bleeding K62.5 [facility] [id number] [place] [address] Jan, Fibromyalgia M79.7 [facility] [id number] [place] [id number] Dec, [facility] [id number] [place] [phone] Dec, [facility] [id number] [place] [address] Dec, Fibromyalgia M79.7 [facility] [id number] [place] [address] Dec, [facility] [id number] [place] [phone] Oct, [facility] [id number] [place] [phone] Oct, [facility] [id number] [place] [address] Oct, [facility] [id number] [place] [address] Sep, [facility] [id number] [place] [address] Sep, [facility] [address] [address] Sep, [facility] [id number] [place] [phone] Aug, Dental examination Z01.20 [facility] [address] [address] Aug, Abscess of axilla, left L02.412 [facility] [id number] [place] [address] Aug, Esophageal reflux K21.9 [facility] [id number] [place] [address] Aug, [facility] [id number] [place] [address] Aug, Esophageal reflux K21.9 ; Fluid level behind tympanic membrane of right ear H65.91 ; Fibromyalgia M79.7 and Lumbago M54.5 [facility] [id number] [place] [address] Aug, Esophageal reflux K21.9 [facility] [id number] [place] [address] July, [facility] [id number] [place] [address] July, [facility] [address], [place] [address] July, Chronic obstructive pulmonary disease, unspecified COPD type J44.9 [facility] [address], [place] [address] July, [facility] [address], [place] [address] July, [facility] [id number] [place] [address] July, Interstitial cystitis N30.10 ; Fibromyalgia M79.7 [...] Dysuria R30.0 and Generalized anxiety disorder F41.1 [address] [address] [place] [address] Jun, [facility] [id number] [place] [address] Jun, Chronic obstructive pulmonary disease, unspecified COPD type J44.9 ; COPD exacerbation J44.1 and Sore throat J02.9 [facility] [address], [place] [address] Jun, Fibromyalgia M79.7 [facility] [id number] [place] [address] Jun, Fibromyalgia M79.7 [facility] [id number] [place] [address] May, [facility] [address], [place] [address] May, [facility] [id number] [place] [address] May, Fibromyalgia M79.7 [facility] [id number] [place] [address] Mar, [facility] [id number] [place] [address] Mar, Epilepsy G40.909 ; Lumbago M54.5 ; Esophageal reflux K21.9 ; Fibromyalgia M79.7 ; Chronic obstructive pulmonary disease, unspecified COPD type J44.9 ; Vitamin D deficiency E55.9 ; Fluid level behind tympanic membrane of right ear H65.91 ; Irritable bowel syndrome with diarrhea K58.0 ; Hematochezia K92.1 and Generalized anxiety disorder F41.1 [facility] [id number] [place] [address] Mar, [facility] [address] [address] Mar, [facility] [id number] [place] [address] Mar, Vitamin D deficiency E55.9 [facility] [id number] [place] [address] Feb, [facility] [id number] [place] [address] Feb, [facility] [id number] [place] [address] Jan, Fibromyalgia M79.7 [facility] [id number] [place] [address] Jan, [facility] [id number] [place] [address] Jan, [facility] [id number] [place] [address] Jan, Vitamin D deficiency E55.9 [facility] [id number] [place] [address] Dec, [facility] [id number] [place] [address] Dec, [facility] [id number] [place] [address] Dec, Generalized anxiety disorder F41.1 [facility] [id number] [place] [address] Dec, Dysuria R30.0 ; Acute bilateral low back pain without sciatica M54.5 and Encounter for immunization Z23 [facility] [id number] [place] [address] Oct, [facility] [address] [address] Oct, Fibromyalgia M79.7 [facility] [id number] [place] [address] Sep, Dysuria R30.0 and Acute bronchitis, unspecified organism J20.9 [facility] [id number] [place] [address] Sep, [facility] [id number] [place] [address] Sep, Rectal prolapse K62.3 [facility] [id number] [place] [address] Sep, Chronic obstructive pulmonary disease, unspecified COPD type J44.9 [facility] [id number] [place] [id number] Aug, [facility] [address] [id number] Aug, [facility] [id number] [place] [address] Aug, Light headedness R42 ; On antiepileptic therapy Z79.899 ; Vitamin D deficiency E55.9 ; Screening for lipid disorders Z13.220 ; Dysuria R30.0 and Hemorrhoids, unspecified hemorrhoid type K64.[address] [address] Aug, Internal prolapsed hemorrhoids K64.8 [address] [address] [address] [address] July, [address] [address] May, [address] [address] May, Fever and chills R50.9 and Influenza B J10.[address] [address] Apr, [address] [address] Apr, Fibromyalgia M79.7 and Generalized anxiety disorder F41.[address] [address] Mar, Esophageal reflux K21.9 ; Generalized anxiety disorder F41.1 and Epilepsy G40.909 [id number] [place] [address] Mar, Epilepsy G40.909 ; Esophageal reflux K21.9 ; Fibromyalgia M79.7 ; Generalized anxiety disorder F41.1 ; Pain of left foot M79.672 ; Pain in right foot M79.671 ; Ear pain, right H92.01 ; Tinnitus of both ears H93.13 ; Chronic obstructive pulmonary disease, unspecified COPD type J44.9 ; Vitamin D deficiency E55.9 ; Screening for lipid disorders Z13.220 and On antiepileptic therapy Z79.899 [id number] [place] [address] Feb, [address] [address] Feb, [facility] [id number] [place] [address] Feb, Dysuria R30.0 and Plantar fasciitis of right foot M72.2 [facility] [id number] [place] [address] Feb, [facility] [id number] [place] [address] Feb, [facility] [id number] [place] [address] Jan, [facility] [id number] [place] [address] Jan, [facility] [id number] [place] [address] Dec, [facility] [id number] [place] [address] Dec, [facility] [id number] [place] [address] Dec, [facility] [id number] [place] [address] Nov, [facility] [id number] [place] [address] Sep, [facility] [id number] [place] [address] Aug, Shortness of breath R06.02 and Acute suppurative otitis media of right ear without spontaneous rupture of tympanic membrane, recurrence not specified H66.001 [facility] [id number] [place] [address] 14 Aug, 2015 Internal prolapsed hemorrhoids K64.8 [facility] [id number] [place] [phone] 06 Jun, 2016 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 [facility] [id number] [place] [address] May, Fibromyalgia M79.7 ; Interstitial cystitis N30.10 ; Intractable migraine without aura and without status migrainosus G43.019 ; Low vitamin D level E55.9 and Ringing in right ear H93.11 [facility] [id number] [place] [address] May, [facility] [address] [address] May, Low vitamin D level E55.9 [address] [address] [address] Apr, [place] [facility] [address] [address] Mar, [address] [address] [address] Mar, Acute suppurative otitis media of right ear without spontaneous rupture of tympanic membrane, recurrence not specified H66.001 ; Encounter for immunization Z23 ; Asthma with acute exacerbation, unspecified asthma severity J45.901 ; Memory problem R41.3 ; Acute pain of right knee M25.561 ; Chronic fatigue R53.82 and Excessive urinary volume R35.8 [facility] [id number] [place] [address] Feb, [facility] [id number] [place] [address] Feb, [facility] [id number] [place] [address] Jan, [place] [address] [address] Nov, Esophageal reflux 530.81 ; Anxiety 300.00 and Tingling in extremities 782.0 [place] [facility] [address] [address] Oct, [facility] [address], [place] [address] Oct, [facility] [id number] [place] [address] Oct, [facility] [id number] [place] [address] Oct, [facility] [id number] [place] [address] Oct, [facility] [id number] [place] [address] Sep, Other chronic allergic conjunctivitis 372.14 ; Irritable bowel syndrome 564.1 ; 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 ; Fibromyalgia 729.1 ; Extremity pain 729.5 and Neck pain 723.1 [facility] [id number] [place] [address] Sep, [facility] [address] [place] [address] Aug, [facility] [id number] [place] [address] Aug, [facility] [id number] [place] [address] July, Vomiting 787.03 [facility] [address] [place] [id number] July, Dental examination V72.2 [facility] [address], [place] [address] Jun, [facility] [id number] [place] [phone] Jun, [facility] [id number] [place] [address] May, [facility] [id number] [place] [address] May, [facility] [place] [facility] [address] [id number] [place] [address] May, [facility] [place] [facility] [address] [id number] [place] [address] May, [facility] [place] [facility] [address] [facility] [id number] [place] [address] May, [facility] [place] [facility] [address] [id number] [place] [address] May, [facility] [place] [facility] [address] [id number] [place] [address] May, [facility] [place] [facility] [address] [facility] [id number] [place] [address] May, [facility] [place] [facility] [address] [facility] [id number] [place] [address] May, [facility] [place] [facility] [address] [facility] [id number], [place] [address] Apr, [facility] [place] [facility] [address] [facility] [id number] [place] [address] Apr, [facility] [place] [facility] [address] [facility] [id number] [place] [address] Apr, [facility] [place] [facility] [address] [facility] [id number] [place] [address] Apr, [facility] [place] [facility] [address] [facility] [id number], [place] [address] Apr, [facility] [place] [facility] [address] [id number] [place] [address] Apr, [facility] [place] [facility] [address] [facility] [id number], [place] [address] Mar, [facility] [place] [facility] [address] [facility] [id number], [place] [address] Mar, [facility] [place] [facility] [address] [id number] [place] [address] Mar, [facility] [place] [facility] [address] [id number] [place] [address] Mar, [facility] [place] [facility] [address] [id number] [place] [address] Mar, [facility] [place] [facility] [address] [id number] [place] [address] Mar, [facility] [place] [facility] [address] [id number] [place] [address] Mar, [facility] [place] [facility] [address] [id number] [place] [address] Mar, [facility] [place] [facility] [address] [id number] [place] [address] Mar, [facility] [place] [facility] [address] [id number] [place] [address] Mar, [facility] [place] [facility] [address] [id number] [place] [address] Mar, [facility] [place] [facility] [address] [id number] [place] [address] Mar, [facility] [place] [facility] [address] [id number] [place] [address] Mar, [facility] [place] [facility] [address] [id number] [place] [address] Mar, [facility] [place] [facility] [address] [id number] [place] [address] Mar, [facility] [place] [facility] [address] [id number] [place] [address] Mar, [facility] [place] [facility] [address] [id number] [place] [address] Mar, [facility] [place] [facility] [address] [id number] [place] [address] Mar, [facility] [place] [facility] [address] [id number] [place] [address] Mar, [facility] [place] [facility] [address] [id number] [place] [address] Feb, [facility] [place] [facility] [address] [id number] [place] [address] Feb, [facility] [place] [facility] [address] [id number] [place] [address] Feb, [facility] [place] [facility] [address] [id number] [place] [address] Feb, [facility] [place] [facility] [address] [id number] [place] [address] Jan, [facility] [place] [facility] [address] [id number] [place] [address] Jan, [facility] [place] [facility] [address] [id number] [place] [address] 14 Jan, 2014 [facility] [place] [facility] [address] [id number] [place] [address] 14 Jan, 2014 [facility] [place] [facility] [address] [id number] [place] [address] 14 Jan, 2014 [facility] [place] [facility] [address] [id number], [place] [address] 14 Jan, 2014 [facility] [place] [facility] [address] [id number], [place] [address] Jan, [facility] [place] [facility] [address] [id number] [place] [address] Jan, [facility] [place] [facility] [address] [id number] [place] [address] Dec, [facility] [place] [facility] [address] [id number] [place] [address] Dec, [facility] [place] [facility] [address] [id number] [place] [address] 17 Dec, 2013 [facility] [place] [facility] [address] [id number] [place] [address] 17 Dec, 2013 [facility] [place] [facility] [address] [id number] [place] [address] 22 Nov, 2013 [facility] [place] [facility] [address] [id number] [place] [address] 22 Nov, 2013 [facility] [place] [facility] [address] [id number] [place] [address] 08 Nov, 2013 [facility] [place] [facility] [address] [id number] [place] [address] 08 Nov, 2013 [facility] [place] [facility] [address] [id number] [place] [address] 05 Nov, 2013 [facility] [place] [facility] [address] [id number] [place] [address] 05 Nov, 2013 [facility] [place] [facility] [address] [id number] [place] [address] 04 Nov, 2013 [facility] [place] [facility] [address] [id number] [place] [address] 04 Nov, 2013 [facility] [place] [facility] [address] [id number] [place] [address] 03 Nov, 2013 [facility] [place] [facility] [address] [id number] [place] [address] 03 Nov, 2013 [facility] [place] [facility] [address] [id number] [place] [address] 15 Oct, 2013 [facility] [place] [facility] [address] [id number] [place] [address] Oct, [facility] [place] [facility] [address] [id number] [place] [address] Sep, [facility] [place] [facility] [address] [id number] [place] [address] Sep, [facility] [place] [facility] [address] [id number] [place] [address] Sep, [facility] [place] [facility] [address] [id number] [place] [address] Sep, [facility] [place] [facility] [address] [id number] [place] [address] Sep, [facility] [place] [facility] [address] [id number] [place] [address] Sep, [facility] [place] [facility] [address] [id number] [place] [address] Aug, [facility] [place] [facility] [address] [id number] [place] [address] Aug, [facility] [place] [facility] [address] [id number] [place] [address] Aug, [facility] [place] [facility] [address] [id number] [place] [address] Aug, [facility] [place] [facility] [address] [id number] [place] [address] Aug, [facility] [place] [facility] [address] [id number] [place] [address] Aug, [facility] [place] [facility] [address] [id number] [place] [address] July, [facility] [place] [facility] [address] [id number] [place] [address] July, [facility] [place] [facility] [address] [id number] [place] [address] July, [facility] [place] [facility] [address] [id number] [place] [address] July, [facility] [place] [facility] [address] [id number] [place] [address] July, [facility] [place] [facility] [address] [id number], [place] [address] July, [facility] [address] [id number] [place] [address] Jun, [facility] [place] [facility] [address] [id number] [place] [address] Jun, [facility] [place] [facility] [address] [id number] [place] [address] Jun, [facility] [place] [facility] [address] [id number] [place] [address] Jun, [facility] [place] [facility] [address] [id number] [place] [address] May, [facility] [place] [facility] [address] [id number] [place] [address] May, [facility] [place] [facility] [address] [facility] [id number] [place] [address] Apr, [facility] [place] [facility] [address] [id number] [place] [address] Apr, [facility] [place] [facility] [address] [facility] [id number] [place] [address] Apr, [facility] [place] [facility] [address] [facility] [id number] [place] [address] Apr, [facility] [place] [facility] [address] [facility] [id number] [place] [address] Mar, [facility] [place] [facility] [address] [id number], [place] [address] Mar, [facility] [place] [facility] [address] [id number] [place] [address] Mar, [facility] [place] [facility] [address] [id number] [place] [address] Mar, [facility] [place] [facility] [address] [facility] [id number], [place] [address] Mar, [facility] [place] [facility] [address] [id number] [place] [address] Mar, [facility] [place] [facility] [address] [id number] [place] [address] Feb, [facility] [place] [facility] [address] [id number] [place] [address] Feb, [facility] [place] [facility] [address] [id number] [place] [address] Jan, [facility] [place] [facility] [address] [id number] [place] [address] Jan, [facility] [place] [facility] [address] [id number] [place] [address] Jan, [facility] [place] [facility] [address] [id number] [place] [address] Jan, [facility] [place] [facility] [address] [id number] [place] [address] Nov, [facility] [place] [facility] [address] [id number] [place] [address] Nov, [facility] [place] [facility] [address] [id number] [place] [address] Oct, [facility] [place] [facility] [address] [id number] [place] [address] Oct, [facility] [place] [facility] [address] [id number] [place] [address] Sep, [facility] [place] [facility] [address] [id number] [place] [address] Sep, [facility] [place] [facility] [address] [id number] [place] [address] Sep, [facility] [place] [facility] [address] [id number] [place] [address] Aug, [facility] [place] [facility] [address] [id number] [place] [address] Aug, [facility] [address] [id number] [place] [address] Aug, [facility] [place] [facility] [address] [id number] [place] [address] Aug, [facility] [place] [facility] [address] [id number] [place] [address] July, [facility] [place] [facility] [address] [id number] [place] [address] July, [facility] [place] [facility] [address] [id number] [place] [address] July, [facility] [place] [facility] [address] [id number] [place] [address] July, [facility] [place] [facility] [address] [id number] [place] [address] Jun, [facility] [place] [facility] [address] [id number] [place] [address] Jun, [facility] [place] [facility] [address] [id number] [place] [address] Jun, [facility] [place] [facility] [address] [id number] [place] [address] May, [facility] [place] [facility] [address] [id number] [place] [address] May, [facility] [place] [facility] [address] [id number] [place] [address] Apr, [facility] [place] [facility] [address] [id number] [place] [address] Apr, [facility] [place] [facility] [address] [id number] [place] [address] Apr, [facility] [place] [facility] [address] [id number] [place] [address] Apr, [facility] [place] [facility] [address] [id number] [place] [address] 11 Mar, 2012 [facility] [place] [facility] [address] [id number] [place] [address] Mar, [facility] [place] [facility] [address] [id number] [place] [address] Mar, [facility] [place] [facility] [address] [id number] [place] [address] Mar, [facility] [place] [facility] [address] [id number] [place] [address] Feb, [facility] [place] [facility] [address] [id number] [place] [address] Feb, [facility] [place] [facility] [address] [id number] [place] [address] Feb, [facility] [place] [facility] [address] [id number] [place] [address] Feb, [facility] [place] [facility] [address] [id number] [place] [address] Feb, [facility] [place] [facility] [address] [id number] [place] [address] Feb, [facility] [place] [facility] [address] [id number] [place] [address] Feb, [facility] [place] [facility] [address] [id number] [place] [address] Feb, [facility] [place] [facility] [address] [id number] [place] [address] Jan, [facility] [place] [facility] [address] [id number] [place] [address] Jan, [facility] [place] [facility] [address] [id number] [place] [address] 15 Jan, 2012 [facility] [place] [facility] [address] [id number] [place] [address] 15 Jan, 2012 [facility] [place] [facility] [address] [id number] [place] [address] 14 Jan, 2012 [facility] [place] [facility] [address] [id number] [place] [address] 13 Jan, 2012 [facility] [place] [facility] [address] [id number] [place] [address] 13 Jan, 2012 [facility] [place] [facility] [address] [id number], [place] [address] Jan, [facility] [place] [facility] [address] [id number] [place] [address] Jan, [facility] [place] [facility] [address] [id number] [place] [address] Jan, [facility] [place] [facility] [address] [facility] [id number] [place] [address] Jan, [facility] [place] [facility] [address] [id number], [place] [address] Dec, [facility] [place] [facility] [address] [id number], [place] [address] Dec, [facility] [place] [facility] [address] [facility] [id number], [place] [address] Dec, [facility] [place] [facility] [address] [id number], [place] [address] Dec, [facility] [place] [facility] [address] [id number], [place] [address] 29 Dec, 2011 [facility] [place] [facility] [address] [id number], [place] [address] Dec, [facility] [place] [facility] [address] [id number], [place] [address] Dec, [facility] [place] [facility] [address] [facility] [id number], [place] [address] Dec, [facility] [place] [facility] [address] [id number] [place] [address] 15 Dec, 2011 [facility] [place] [facility] [address] [id number] [place] [address] 15 Dec, 2011 [facility] [place] [facility] [address] [id number] [place] [address] Dec, [facility] [place] [facility] [address] [id number] [place] [address] Dec, [facility] [place] [facility] [address] [id number] [place] [address] Nov, [facility] [place] [facility] [address] [id number] [place] [address] Oct, [facility] [place] [facility] [address] [id number] [place] [address] Oct, [facility] [place] [facility] [address] [id number] [place] [address] Oct, [facility] [place] [facility] [address] [id number] [place] [address] Oct, [facility] [place] [facility] [address] [id number] [place] [address] Sep, [facility] [place] [facility] [address] [id number] [place] [address] Sep, [facility] [place] [facility] [address] [id number] [place] [address] Sep, [facility] [place] [facility] [address] [id number] [place] [address] Sep, [facility] [place] [facility] [address] [id number] [place] [address] Aug, [facility] [place] [facility] [address] [id number] [place] [address] Aug, [facility] [place] [facility] [address] [id number] [place] [address] Aug, [facility] [address] [facility] [id number], [place] [address] Aug, [facility] [address] [facility] [id number], [place] [address] Aug, [facility] [address] [facility] [id number], [place] [address] July, [facility] [address] [id number], [place] [address] July, [facility] [address] [facility] [id number], [place] [address] July, [facility] [address] [facility] [id number], [place] [address] Dec, IMMUNIZATIONS No Known Immunizations SOCIAL HISTORY Never Assessed REASON FOR [place] [place] VITAL SIGNS MEDICATIONS Medication Instructions Dosage Frequency Start Date End Date Duration Status Helidac 250-500-262.4 mg 1 PKTs by Oral route 4 times per day for 14 day(s) Dec, Active Amoxicillin 500 mg 2 capsule by Oral route 2 times per day for 10 day(s) Apr, Active Albuterol Sulfate 2.5 mg /3 mL (0.083 %) 1 Each by Inhalation route every 6 hours for cough and wheeze PRN for wheezing or cough Mar, Active Oxybutynin Chloride 5 mg 1 tablet by Oral route 2 times per day Feb, Active Albuterol Sulfate 90 mcg/actuation 2 puffs by Inhalation route every 4-6 hours as needed PRN cough or wheezing Jun, Active cromolyn 4 % 1 drop by Ophthalmic route 4 times per day for 7 day(s) Apr, Active Imipramine HCl 50 mg 1 tablet by Oral route 1 time per day at hs Feb, Active Clonazepam 0.5 mg 1 Tablet by Oral route 2 times per day Feb, Active Tegretol 200 mg take 1 tablet (200 mg) by oral route every 12 hours July, Active trazodone 50 mg take 1-2 tablet by Oral route 1 time per day at hs Feb, Active Imitrex 100 mg 1 tablet by Oral route 1 time per day and repeat once more after 2 hours if headache recurs PRN Mar, Active MethylPREDNISolone 4 mg by Oral route every day for 6 days as directed per dose pack Mar, Active Zantac 150 mg 1-2 tablet by Oral route 2 times per day PRN for heartburn Aug, Active Augmentin 875-125 mg 1 tablet by Oral route 2 times per day for 7 day(s) Mar, Active Estradiol 1 mg 1 tablet by Oral route 1 time per day Mar, Active Bactroban 2 % 1 kiran by Topical route 2 times per day for 14 day(s) Jan, Active Elmiron 100 mg take 1 capsule (100 mg) by oral route 3 times per day with water, 1 hour before or 2 hours after a meal Oct, Active Advair Diskus 500-50 mcg/dose 1 puffs by Inhalation route 2 times per day Aug, Active Omeprazole 40 mg take 1 capsule by Oral route 2 times per day before a meal Aug, Active Naprosyn 500 mg 1 tablet by Oral route 2 times per day take with omprazole Nov, Active cyclobenzaprine 10 mg 1 tablet 3 times per day PRN muscle spasm/pain May, Active Cymbalta 60 mg take 1 capsule (60 mg) by oral route once daily July, Active Doxycycline Hyclate 100 mg take 1 tablet (100 mg) by oral route 2 times per day for 7 days Feb, Active PredniSONE 20 mg 2 tablet by Oral route 1 time per day for 5 day(s) Mar, Active Ofloxacin 0.3 % 3 drop by Otic route 2 times per day for 10 day(s) Aug, Active RESULTS No Results PROCEDURES No Known procedures [...]
--- OUTSIDE RECORDS SUMMARY | 2018-10-24 12:06 | XMS REPORT ---
Author Author Migration, Doctor Organization [facility] Address Unknown Phone Unavailable Care Team Providers Care Police Liaison Officer Name Role Phone Migration, Doctor Unavailable Unavailable PROBLEMS Type Condition ICD9-CM Code INH36-ZT Code Onset Dates Condition Status SNOMED Code Problem Chronic periodontal disease K05.6 Active 4971245 Problem MRSA (methicillin resistant staph aureus) culture positive Z22.322 Active 015251460 Problem Interstitial cystitis N30.10 Active 892717482 Problem Epilepsy G40.909 Active 04185144 Problem Esophageal reflux K21.9 Active 801161282 Problem Major depressive disorder F32.9 Active 389348623 Problem Lumbago M54.5 Active 027757993 Problem Generalized anxiety disorder F41.1 Active 560272755 Problem Tinnitus of both ears H93.13 Active 6945871508270 Problem Chronic obstructive pulmonary disease, unspecified COPD type J44.9 Active 41795384 Problem On antiepileptic therapy Z79.899 Active 901025196 Problem Paresthesia of skin R20.2 Active 91329247 Problem Irritable bowel syndrome without diarrhea K58.9 Active 11878280 Problem Paresthesia R20.2 Active 01519569 Problem Fibromyalgia M79.7 Active 65724809 Problem Vitamin D deficiency E55.9 Active 52191784 Problem Irritable bowel syndrome with diarrhea K58.0 Active 043815602 Problem Menopausal symptoms N95.1 Active 29634554 Problem COPD exacerbation J44.1 Active 109309873 ALLERGIES No Information ENCOUNTERS Encounter Location Date Diagnosis [facility] [address] [facility] [id number] [address] Aug, [facility] [address] [address] July, Dysuria R30.0 ; Bleeding hemorrhoids K64.9 and Hematochezia K92.1 [facility] [address] [facility] [id number] [place] [address] July, [facility] [id number] [place] [address] July, Dysuria R30.0 [facility] [address] [address] July, Paresthesia R20.2 [facility] [address] [address] July, [facility] [address] [address] July, Fibromyalgia M79.7 and Generalized anxiety disorder F41.1 [facility] [address] [address] July, [facility] [id number] [place] [address] Jun, [facility] [address] [address] Jun, Dysuria R30.0 ; Major depressive disorder F32.9 ; Interstitial cystitis N30.10 ; Vitamin D deficiency E55.9 ; Hematochezia K92.1 ; Paresthesia of skin R20.2 and Weight loss R63.4 [facility] [id number] [place] [address] Jun, Fibromyalgia M79.7 [facility] [id number] [place] [address] May, Fibromyalgia M79.7 [facility] [id number] [place] [address] Apr, [facility] [address] [address] Mar, Fibromyalgia M79.7 [facility] [id number] [place] [address] Feb, Fibromyalgia M79.7 [facility] [address] [address] Feb, Acute cystitis with hematuria N30.01 [facility] [id number] [place] [address] Feb, Acute cystitis with hematuria N30.01 ; COPD exacerbation J44.1 ; Interstitial cystitis N30.10 ; Nausea R11.0 and Rectal bleeding K62.5 [facility] [id number] [place] [address] Jan, Fibromyalgia M79.7 [facility] [id number] [place] [id number] Dec, [facility] [address] [id number] Dec, [facility] [address] [address] Dec, Fibromyalgia M79.7 [facility] [address] [address] Dec, [facility] [id number] [place] [address] Oct, [facility] [id number] [place] [id number] Oct, [facility] [id number] [place] [address] Oct, [facility] [id number] [place] [address] Sep, [facility] [id number] [place] [address] Sep, [facility] [address] [address] Sep, [facility] [id number] [place] [id number] Aug, Dental examination Z01.20 [facility] [address] [address] Aug, Abscess of axilla, left L02.412 [place] [id number] [place] [address] 08 Aug, 2017 Esophageal reflux K21.9 [facility] [id number] [place] [address] Aug, [facility] [id number] [place] [address] Aug, Esophageal reflux K21.9 ; Fluid level behind tympanic membrane of right ear H65.91 ; Fibromyalgia M79.7 and Lumbago M54.5 [facility] [id number] [place] [address] Aug, Esophageal reflux K21.9 [facility] [id number] [place] [address] July, [facility] [id number] [place] [address] July, [facility] [id number] [place] [address] July, Chronic obstructive pulmonary disease, unspecified COPD type J44.9 [facility] [id number] [place] [address] July, [facility] [id number] [place] [address] July, [facility] [id number] [place] [address] July, Interstitial cystitis N30.10 ; Fibromyalgia M79.7 [...] Dysuria R30.0 and Generalized anxiety disorder F41.1 [facility] [address] [address] Jun, [facility] [address] [address] Jun, Chronic obstructive pulmonary disease, unspecified COPD type J44.9 ; COPD exacerbation J44.1 and Sore throat J02.9 [facility] [address] [address] Jun, Fibromyalgia M79.7 [place] [facility] [address] [address] Jun, Fibromyalgia M79.7 [facility] [address] [address] May, [facility] [address] [address] May, [facility] [address] [address] May, Fibromyalgia M79.7 [facility] [address] [address] Mar, [facility] [id number] [place] [address] Mar, Epilepsy G40.909 ; Lumbago M54.5 ; Esophageal reflux K21.9 ; Fibromyalgia M79.7 ; Chronic obstructive pulmonary disease, unspecified COPD type J44.9 ; Vitamin D deficiency E55.9 ; Fluid level behind tympanic membrane of right ear H65.91 ; Irritable bowel syndrome with diarrhea K58.0 ; Hematochezia K92.1 and Generalized anxiety disorder F41.1 [facility] [id number] [place] [address] Mar, [facility] [address] [address] Mar, [facility] [id number] [place] [address] Mar, Vitamin D deficiency E55.9 [facility] [id number] [place] [address] Feb, [facility] [address] [address] Feb, [facility] [address] [address] Jan, Fibromyalgia M79.7 [facility] [address] [address] Jan, [facility] [address] [address] Jan, [facility] [address] [address] Jan, Vitamin D deficiency E55.9 [facility] [id number] [place] [address] Dec, [facility] [id number] [place] [address] Dec, [facility] [id number] [place] [address] Dec, Generalized anxiety disorder F41.1 [facility] [address] [address] Dec, Dysuria R30.0 ; Acute bilateral low back pain without sciatica M54.5 and Encounter for immunization Z23 [facility] [address] [address] Oct, [facility] [address] [address] Oct, Fibromyalgia M79.7 [facility] [address] [address] Sep, Dysuria R30.0 and Acute bronchitis, unspecified organism J20.9 [facility] [id number] [place] [address] Sep, [facility] [id number] [place] [address] Sep, Rectal prolapse K62.3 [place] [facility] [id number] [place] [address] Sep, Chronic obstructive pulmonary disease, unspecified COPD type J44.9 [place] [address] [id number] Aug, [place] [address] [id number] Aug, [place] [id number] [place] [address] Aug, Light headedness R42 ; On antiepileptic therapy Z79.899 ; Vitamin D deficiency E55.9 ; Screening for lipid disorders Z13.220 ; Dysuria R30.0 and Hemorrhoids, unspecified hemorrhoid type K64.9 [place] [id number] [place] [address] Aug, Internal prolapsed hemorrhoids K64.8 [place] [id number] [place] [address] July, [facility] [id number] [place] [address] May, [place] [id number] [place] [address] May, Fever and chills R50.9 and Influenza B J10.1 [place] [id number] [place] [address] Apr, [facility] [id number] [place] [address] Apr, Fibromyalgia M79.7 and Generalized anxiety disorder F41.1 [facility] [id number] [place] [address] Mar, Esophageal reflux K21.9 ; Generalized anxiety disorder F41.1 and Epilepsy G40.909 [facility] [id number] [place] [address] Mar, Epilepsy G40.909 ; Esophageal reflux K21.9 ; Fibromyalgia M79.7 ; Generalized anxiety disorder F41.1 ; Pain of left foot M79.672 ; Pain in right foot M79.671 ; Ear pain, right H92.01 ; Tinnitus of both ears H93.13 ; Chronic obstructive pulmonary disease, unspecified COPD type J44.9 ; Vitamin D deficiency E55.9 ; Screening for lipid disorders Z13.220 and On antiepileptic therapy Z79.899 [place] [address] [address] Feb, [facility] [id number] [place] [address] Feb, [facility] [address] [address] Feb, Dysuria R30.0 and Plantar fasciitis of right foot M72.2 [facility] [id number] [place] [address] Feb, [facility] [id number] [place] [address] Feb, [facility] [id number] [place] [address] Jan, [facility] [address] [address] Jan, [facility] [id number] [place] [address] Dec, [facility] [address] [place] [address] Dec, [facility] [id number] [place] [address] Dec, [facility] [id number] [place] [address] Nov, [facility] [id number] [place] [address] Sep, [facility] [id number] [place] [address] Aug, Shortness of breath R06.02 and Acute suppurative otitis media of right ear without spontaneous rupture of tympanic membrane, recurrence not specified H66.001 [facility] [id number] [place] [address] 14 Aug, 2015 Internal prolapsed hemorrhoids K64.8 [place] [address] [address] Jun, 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 [place] [id number] [place] [address] May, Fibromyalgia M79.7 ; Interstitial cystitis N30.10 ; Intractable migraine without aura and without status migrainosus G43.019 ; Low vitamin D level E55.9 and Ringing in right ear H93.11 [place] [id number] [place] [address] May, [facility] [id number] [place] [address] May, Low vitamin D level E55.9 [place] [id number] [place] [address] Apr, [facility] [id number] [place] [address] Mar, [facility] [address] [address] Mar, Acute suppurative otitis media of right ear without spontaneous rupture of tympanic membrane, recurrence not specified H66.001 ; Encounter for immunization Z23 ; Asthma with acute exacerbation, unspecified asthma severity J45.901 ; Memory problem R41.3 ; Acute pain of right knee M25.561 ; Chronic fatigue R53.82 and Excessive urinary volume R35.8 [place] [address] [address] Feb, [place] [address] [address] Feb, [place] [address] [address] Jan, [place] [address] [address] Nov, Esophageal reflux 530.81 ; Anxiety 300.00 and Tingling in extremities 782.0 [place] [id number] [place] [address] Oct, [place] [address] [address] Oct, [place] [id number] [place] [address] Oct, [place] [id number] [place] [address] Oct, [place] [id number] [place] [address] Oct, [place] [address] [address] Sep, Other chronic allergic conjunctivitis 372.14 ; Irritable bowel syndrome 564.1 ; 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 ; Fibromyalgia 729.1 ; Extremity pain 729.5 and Neck pain 723.1 [place] [address] [address] Sep, [facility] [address] [id number] [place] [address] Aug, [facility] [place] [facility] [address] [id number] [place] [address] Aug, [facility] [address] [facility] [id number] [place] [address] July, Vomiting 787.03 [facility] [address] [id number] [place] [id number] July, Dental examination V72.2 [facility] [address] [id number] [place] [address] Jun, [facility] [place] [facility] [address] [facility] [id number] [place] [address] Jun, [facility] [address] [address] [id number] [place] [address] May, [facility] [place] [facility] [address] [id number] [place] [address] May, [facility] [place] [facility] [address] [facility] [id number] [place] [address] May, [facility] [place] [facility] [address] [facility] [id number] [place] [address] May, [facility] [place] [facility] [address] [id number] [address] 05 May, 2014 [facility] [place] [facility] [address] [id number] [place] [address] 05 May, 2014 [facility] [place] [facility] [address] [facility] [id number] [place] [address] May, [facility] [place] [facility] [address] [facility] [id number] [place] [address] May, [facility] [place] [facility] [address] [facility] [id number] [place] [address] May, [facility] [place] [facility] [address] [id number] [place] [address] Apr, [facility] [place] [facility] [address] [id number] [place] [address] Apr, [facility] [place] [facility] [address] [id number] [place] [address] Apr, [facility] [place] [facility] [address] [id number] [place] [address] Apr, [facility] [place] [facility] [address] [id number] [place] [address] Apr, [facility] [place] [facility] [address] [id number] [place] [address] Apr, [facility] [place] [facility] [address] [facility] [id number] [place] [address] Mar, [facility] [place] [facility] [address] [id number] [place] [address] Mar, [facility] [place] [facility] [address] [id number] [place] [address] Mar, [facility] [place] [facility] [address] [id number] [place] [address] Mar, [facility] [place] [facility] [address] [id number] [place] [address] Mar, [facility] [place] [facility] [address] [id number] [place] [address] Mar, [facility] [place] [facility] [address] [id number] [place] [address] Mar, [facility] [place] [facility] [address] [id number] [place] [address] Mar, [facility] [place] [facility] [address] [id number] [place] [address] Mar, [facility] [place] [facility] [address] [id number] [place] [address] Mar, [facility] [address] [id number] [place] [address] Mar, [facility] [place] [facility] [address] [id number] [place] [address] Mar, [facility] [place] [facility] [address] [id number] [place] [address] Mar, [facility] [place] [facility] [address] [id number] [place] [address] Mar, [facility] [place] [facility] [address] [id number] [place] [address] Mar, [facility] [place] [facility] [address] [id number] [place] [address] Mar, [facility] [address] [id number] [place] [address] Mar, [facility] [place] [facility] [address] [id number] [place] [address] Mar, [facility] [place] [facility] [address] [id number] [place] [address] Mar, [facility] [place] [facility] [address] [id number] [place] [address] Feb, [facility] [place] [facility] [address] [id number] [place] [address] Feb, [facility] [place] [facility] [address] [id number] [place] [address] Feb, [facility] [place] [facility] [address] [id number] [place] [address] Feb, [facility] [place] [facility] [address] [id number] [place] [address] Jan, [facility] [place] [facility] [address] [id number] [place] [address] Jan, [facility] [place] [facility] [address] [id number] [place] [address] 14 Jan, 2014 [facility] [place] [facility] [address] [id number] [place] [address] 14 Jan, 2014 [facility] [place] [facility] [address] [id number] [place] [address] 14 Jan, 2014 [facility] [place] [facility] [address] [id number] [place] [address] Jan, [facility] [place] [facility] [address] [id number] [place] [address] Jan, [facility] [place] [facility] [address] [id number] [place] [address] Jan, [facility] [place] [facility] [address] [id number] [place] [address] Dec, [facility] [place] [facility] [address] [id number] [place] [address] Dec, [facility] [place] [facility] [address] [id number] [place] [address] Dec, [facility] [place] [facility] [address] [id number] [place] [address] Dec, [facility] [place] [facility] [address] [id number] [place] [address] 22 Nov, 2013 [facility] [place] [facility] [address] [id number] [place] [address] 22 Nov, 2013 [facility] [place] [facility] [address] [id number] [place] [address] 08 Sep2013 [facility] [place] [facility] [address] [id number] [place] [address] 08 Sep2013 [facility] [place] [facility] [address] [id number] [place] [address] 05 Sep2013 [facility] [place] [facility] [address] [id number] [place] [address] 05 Nov, 2013 [facility] [place] [facility] [address] [id number] [place] [address] 04 Nov, 2013 [facility] [place] [facility] [address] [id number] [place] [address] 04 Nov, 2013 [facility] [place] [facility] [address] [id number] [place] [address] 03 Nov, 2013 [facility] [place] [facility] [address] [id number] [place] [address] 03 Nov, 2013 [facility] [place] [facility] [address] [id number] [place] [address] Oct, [facility] [place] [facility] [address] [id number] [place] [address] Oct, [facility] [place] [facility] [address] [id number] [place] [address] Sep, [facility] [place] [facility] [address] [id number] [place] [address] Sep, [facility] [place] [facility] [address] [id number] [place] [address] Sep, [facility] [place] [facility] [address] [id number] [place] [address] Sep, [facility] [place] [facility] [address] [id number] [place] [address] Sep, [facility] [place] [facility] [address] [id number] [place] [address] Sep, [facility] [place] [facility] [address] [id number] [place] [address] Aug, [facility] [place] [facility] [address] [id number] [place] [address] Aug, [facility] [place] [facility] [address] [id number] [place] [address] Aug, [facility] [place] [facility] [address] [id number] [place] [address] Aug, [facility] [address] [id number] [place] [address] Aug, [facility] [address] [id number] [place] [address] Aug, [facility] [address] [id number] [place] [address] July, [facility] [address] [id number] [place] [address] July, [facility] [address] [id number] [place] [address] July, [facility] [address] [id number] [place] [address] July, [facility] [address] [id number] [place] [address] July, [facility] [address] [id number] [place] [address] July, [facility] [address] [id number] [place] [address] Jun, [facility] [address] [id number] [place] [address] Jun, [facility] [place] [facility] [address] [id number] [place] [address] Jun, [facility] [address] [id number] [place] [address] Jun, [facility] [place] [facility] [address] [id number] [place] [address] May, [facility] [place] [facility] [address] [id number] [place] [address] May, [facility] [place] [facility] [address] [id number] [place] [address] Apr, [facility] [place] [facility] [address] [id number] [place] [address] Apr, [facility] [place] [facility] [address] [id number] [place] [address] Apr, [facility] [place] [facility] [address] [id number] [place] [address] Apr, [facility] [place] [facility] [address] [id number] [place] [address] Mar, [facility] [place] [facility] [address] [id number] [place] [address] Mar, [facility] [place] [facility] [address] [id number] [place] [address] Mar, [facility] [place] [facility] [address] [facility] [id number] [place] [address] Mar, [facility] [place] [facility] [address] [id number] [place] [address] Mar, [facility] [place] [facility] [address] [id number] [place] [address] Mar, [facility] [place] [facility] [address] [facility] [id number] [place] [address] Feb, [facility] [place] [facility] [address] [id number] [place] [address] Feb, [facility] [place] [facility] [address] [id number] [place] [address] Jan, [facility] [place] [facility] [address] [id number] [place] [address] Jan, [facility] [place] [facility] [address] [id number] [place] [address] Jan, [facility] [place] [facility] [address] [facility] [id number] [place] [address] Jan, [facility] [place] [facility] [address] [id number] [place] [address] Nov, [facility] [address] [id number] [place] [address] Nov, [facility] [address] [id number] [place] [address] Oct, [facility] [address] [id number] [place] [address] Oct, [facility] [address] [id number] [place] [address] Sep, [facility] [address] [id number] [place] [address] Sep, [facility] [address] [id number] [place] [address] Sep, [facility] [address] [id number] [place] [address] Aug, [facility] [address] [id number] [place] [address] Aug, [facility] [address] [id number] [place] [address] Aug, [facility] [address] [id number] [place] [address] Aug, [facility] [address] [id number] [place] [address] July, [facility] [address] [id number] [place] [address] July, [facility] [place] [facility] [address] [id number] [place] [address] July, [facility] [place] [facility] [address] [id number] [place] [address] July, [facility] [address] [id number] [place] [address] Jun, [facility] [place] [facility] [address] [id number] [place] [address] Jun, [facility] [place] [facility] [address] [id number] [place] [address] Jun, [facility] [place] [facility] [address] [id number] [place] [address] May, [facility] [place] [facility] [address] [id number] [place] [address] May, [facility] [place] [facility] [address] [id number] [place] [address] Apr, [facility] [place] [facility] [address] [id number] [place] [address] Apr, [facility] [address] [id number] [place] [address] Apr, [facility] [place] [facility] [address] [id number] [place] [address] Apr, [facility] [place] [facility] [address] [id number] [place] [address] Mar, [facility] [place] [facility] [address] [id number] [place] [address] Mar, [facility] [place] [facility] [address] [id number] [place] [address] Mar, [facility] [place] [facility] [address] [id number] [place] [address] Mar, [facility] [place] [facility] [address] [id number] [place] [address] Feb, [facility] [place] [facility] [address] [id number] [place] [address] Feb, [facility] [place] [facility] [address] [id number] [place] [address] Feb, [facility] [place] [facility] [address] [id number] [place] [address] 10 Feb, 2012 [facility] [place] [facility] [address] [id number] [place] [address] 10 Feb, 2012 [facility] [place] [facility] [address] [id number] [place] [address] 06 Feb, 2012 [facility] [place] [facility] [address] [facility] [id number] [place] [address] Feb, [facility] [place] [facility] [address] [id number] [place] [address] 04 Feb, 2012 [facility] [place] [facility] [address] [id number] [place] [address] Jan, [facility] [place] [facility] [address] [id number] [place] [address] 28 Jan, 2012 [facility] [place] [facility] [id number] [address] 15 Jan, 2012 [facility] [place] [facility] [address] [id number] [place] [address] 15 Jan, 2012 [facility] [place] [facility] [address] [facility] [id number] [place] [address] 14 Jan, 2012 [facility] [place] [facility] [address] [facility] [id number] [place] [address] 13 Jan, 2012 [facility] [place] [facility] [address] [facility] [id number] [place] [address] 13 Jan, 2012 [facility] [place] [facility] [address] [id number] [address] 12 Jan, 2012 [facility] [place] [facility] [address] [id number] [place] [address] 12 Jan, 2012 [facility] [place] [facility] [address] [facility] [id number] [place] [address] 06 Jan, 2012 [facility] [place] [facility] [address] [facility] [id number] [place] [address] 06 Jan, 2012 [facility] [place] [facility] [address] [id number] [place] [address] Dec, [facility] [place] [facility] [address] [id number] [place] [address] Dec, [facility] [place] [facility] [address] [id number] [place] [address] Dec, [facility] [place] [facility] [address] [id number] [place] [address] Dec, [facility] [place] [facility] [address] [id number] [place] [address] Dec, [facility] [place] [facility] [address] [id number] [place] [address] Dec, [facility] [place] [facility] [address] [id number] [place] [address] Dec, [facility] [place] [facility] [address] [id number] [place] [address] Dec, [facility] [place] [facility] [address] [id number] [place] [address] Dec, [facility] [place] [facility] [address] [id number] [place] [address] Dec, [facility] [place] [facility] [address] [id number] [place] [address] Dec, [facility] [place] [facility] [address] [id number] [place] [address] Dec, [facility] [place] [facility] [address] [id number] [place] [address] Nov, [facility] [place] [facility] [address] [id number] [place] [address] Oct, [facility] [place] [facility] [address] [id number] [place] [address] Oct, [facility] [place] [facility] [address] [id number] [place] [address] Oct, [facility] [id number] [address] Oct, [facility] [id number] [address] Sep, [facility] [id number] [address] Sep, [facility] [id number] [address] Sep, [facility] [id number] [address] Sep, [facility] [id number] [place] [address] Aug, [facility] [id number] [address] Aug, [facility] [id number] [address] Aug, [facility] [id number] [address] Aug, [facility] [id number] [address] Aug, [facility] [id number] [address] July, [facility] [id number] [address] July, [facility] [address] [id number] [address] July, [facility] [id number] [address] Dec, IMMUNIZATIONS No Known Immunizations SOCIAL HISTORY Never Assessed REASON FOR VISIT EMR[place] [place] PLAN OF CARE VITAL SIGNS MEDICATIONS Unknown [...]
--- OUTSIDE RECORDS SUMMARY | 2018-10-24 12:06 | XMS REPORT ---
Author Author Migration, Doctor Organization [facility] Address Unknown Phone Unavailable Care Team Providers Care Control Area Operator Name Role Phone Migration, Doctor Unavailable Unavailable PROBLEMS Type Condition ICD9-CM Code HGR32-OE Code Onset Dates Condition Status SNOMED Code Problem MRSA (methicillin resistant staph aureus) culture positive Z22.322 Active 247861369 Problem Interstitial cystitis N30.10 Active 999402504 Problem Chronic periodontal disease K05.6 Active 7544775 Problem Epilepsy G40.909 Active 29355165 Problem Major depressive disorder F32.9 Active 817079300 Problem Esophageal reflux K21.9 Active 531940081 Problem Generalized anxiety disorder F41.1 Active 340320012 Problem Irritable bowel syndrome without diarrhea K58.9 Active 81854874 Problem Tinnitus of both ears H93.13 Active 8423557475434 Problem Chronic obstructive pulmonary disease, unspecified COPD type J44.9 Active 23565512 Problem COPD exacerbation J44.1 Active 540383082 Problem Fibromyalgia M79.7 Active 37692980 Problem Paresthesia of skin R20.2 Active 79372807 Problem Lumbago M54.5 Active 114519636 Problem On antiepileptic therapy Z79.899 Active 338885559 Problem Vitamin D deficiency E55.9 Active 40247008 Problem Irritable bowel syndrome with diarrhea K58.0 Active 870907360 Problem Menopausal symptoms N95.1 Active 38376167 ALLERGIES No Information ENCOUNTERS Encounter Location Date Diagnosis [facility] [address] [facility] [id number] [address] July, [facility] [address] [id number] [address] July, Fibromyalgia M79.7 and Generalized anxiety disorder F41.1 [facility] [address] [facility] [id number], [place] [address] July, [facility] [address] [id number] [address] Jun, [facility] [id number] [place] [address] Jun, Dysuria R30.0 ; Major depressive disorder F32.9 ; Interstitial cystitis N30.10 ; Vitamin D deficiency E55.9 ; Hematochezia K92.1 ; Paresthesia of skin R20.2 and Weight loss R63.4 [facility] [address] [address] Jun, Fibromyalgia M79.7 [facility] [address] [address] May, Fibromyalgia M79.7 [facility] [address] [address] Apr, [facility] [address] [address] Mar, Fibromyalgia M79.7 [facility] [address] [address] Feb, Fibromyalgia M79.7 [facility] [address] [address] Feb, Acute cystitis with hematuria N30.01 [facility] [address] [address] Feb, Acute cystitis with hematuria N30.01 ; COPD exacerbation J44.1 ; Interstitial cystitis N30.10 ; Nausea R11.0 and Rectal bleeding K62.5 [facility] [id number] [place] [address] Jan, Fibromyalgia M79.7 [facility] [id number] [place] [id number] Dec, [facility] [id number] [place] [address] [id number] Dec, [facility] [address] [address] Dec, Fibromyalgia M79.7 [facility] [id number] [place] [address] Dec, [facility] [address] [address] Oct, [facility] [id number] [place] [id number] Oct, [facility] [address] [address] Oct, [facility] [address] [address] Sep, [facility] [address] [address] Sep, [facility] [address] [address] Sep, [facility] [id number] [place] [address] [id number] Aug, Dental examination Z01.20 [facility] [address] [address] Aug, Abscess of axilla, left L02.412 [facility] [id number] [place] [address] Aug, Esophageal reflux K21.9 [facility] [address] [address] Aug, [facility] [address] [address] Aug, Esophageal reflux K21.9 ; Fluid level behind tympanic membrane of right ear H65.91 ; Fibromyalgia M79.7 and Lumbago M54.5 [facility] [id number] [place] [address] Aug, Esophageal reflux K21.9 [facility] [address] [address] July, [facility] [address] [place] [address] July, [facility] [id number] [place] [address] July, Chronic obstructive pulmonary disease, unspecified COPD type J44.9 [facility] [id number] [place] [address] July, [facility] [address] [place] [address] July, [facility] [id number] [place] [address] July, Interstitial cystitis N30.10 ; Fibromyalgia M79.7 [...] Dysuria R30.0 and Generalized anxiety disorder F41.1 [place] [address] [address] Jun, [facility] [address] [address] Jun, Chronic obstructive pulmonary disease, unspecified COPD type J44.9 ; COPD exacerbation J44.1 and Sore throat J02.9 [facility] [id number] [place] [address] Jun, Fibromyalgia M79.7 [facility] [address] [place] [address] Jun, Fibromyalgia M79.7 [facility] [id number] [place] [address] May, [facility] [address] [place] [address] May, [facility] [id number] [place] [address] May, Fibromyalgia M79.7 [facility] [id number] [place] [address] Mar, [facility] [id number] [place] [address] Mar, Epilepsy G40.909 ; Lumbago M54.5 ; Esophageal reflux K21.9 ; Fibromyalgia M79.7 ; Chronic obstructive pulmonary disease, unspecified COPD type J44.9 ; Vitamin D deficiency E55.9 ; Fluid level behind tympanic membrane of right ear H65.91 ; Irritable bowel syndrome with diarrhea K58.0 ; Hematochezia K92.1 and Generalized anxiety disorder F41.1 [facility] [id number] [place] [address] Mar, [facility] [id number] [place] [address] Mar, [facility] [id number] [place] [address] Mar, Vitamin D deficiency E55.9 [facility] [id number] [place] [address] Feb, [facility] [address], [place] [address] Feb, [facility] [id number] [place] [address] Jan, Fibromyalgia M79.7 [facility] [address], [place] [address] Jan, [facility] [id number] [place] [address] Jan, [facility] [id number] [place] [address] Jan, Vitamin D deficiency E55.9 [facility] [id number] [place] [address] Dec, [facility] [id number] [place] [address] Dec, [facility] [address] [address] Dec, Generalized anxiety disorder F41.1 [place] [place] [address] [address] Dec, Dysuria R30.0 ; Acute bilateral low back pain without sciatica M54.5 and Encounter for immunization Z23 [place] [id number] [place] [address] Oct, [facility] [address] [address] Oct, Fibromyalgia M79.7 [facility] [address] [address] Sep, Dysuria R30.0 and Acute bronchitis, unspecified organism J20.9 [facility] [id number] [place] [address] Sep, [facility] [id number] [place] [address] Sep, Rectal prolapse K62.3 [facility] [id number] [place] [address] Sep, Chronic obstructive pulmonary disease, unspecified COPD type J44.9 [facility] [id number] [place] [address] [id number] Aug, [facility] [address] [id number] Aug, [place] [id number] [place] [address] Aug, Light headedness R42 ; On antiepileptic therapy Z79.89 ; Vitamin D deficiency E55.9 ; Screening for lipid disorders Z13.220 ; Dysuria R30.0 and Hemorrhoids, unspecified hemorrhoid type K64.9 [id number] [place] [address] Aug, Internal prolapsed hemorrhoids K64.8 [place] [id number] [place] [address] July, [address] [address] May, [address] [address] May, Fever and chills R50.9 and Influenza B J10.1 [id number] [place] [address] Apr, [address] [id number] [place] [address] Apr, Fibromyalgia M79.7 and Generalized anxiety disorder F41.1 [id number] [place] [address] Mar, Esophageal reflux K21.9 ; Generalized anxiety disorder F41.1 and Epilepsy G40.909 [id number] [place] [address] Mar, Epilepsy G40.909 ; Esophageal reflux K21.9 ; Fibromyalgia M79.7 ; Generalized anxiety disorder F41.1 ; Pain of left foot M79.672 ; Pain in right foot M79.671 ; Ear pain, right H92.01 ; Tinnitus of both ears H93.13 ; Chronic obstructive pulmonary disease, unspecified COPD type J44.9 ; Vitamin D deficiency E55.9 ; Screening for lipid disorders Z13.220 and On antiepileptic therapy Z79.899 [facility] [id number] [place] [address] Feb, [facility] [id number] [place] [address] Feb, [facility] [id number] [place] [address] Feb, Dysuria R30.0 and Plantar fasciitis of right foot M72.2 [facility] [id number] [place] [address] Feb, [facility] [id number] [place] [address] Feb, [facility] [id number] [place] [address] Jan, [facility] [id number] [place] [address] Jan, [facility] [id number] [place] [address] Dec, [facility] [id number] [place] [address] Dec, [facility] [id number] [place] [address] Dec, [facility] [id number] [place] [address] Nov, [facility] [address] [place] [address] Sep, [facility] [id number] [place] [address] Aug, Shortness of breath R06.02 and Acute suppurative otitis media of right ear without spontaneous rupture of tympanic membrane, recurrence not specified H66.001 [facility] [address] [place] [address] Aug, Internal prolapsed hemorrhoids K64.8 [place] [id number] [place] [address] Jun, 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 [place] [id number] [place] [address] 31 May, 2015 Fibromyalgia M79.7 ; Interstitial cystitis N30.10 ; Intractable migraine without aura and without status migrainosus G43.019 ; Low vitamin D level E55.9 and Ringing in right ear H93.11 [place] [id number] [place] [address] May, [place] [id number] [place] [address] May, Low vitamin D level E55.9 [place] [id number] [place] [address] Apr, [place] [id number] [place] [address] Mar, [place] [id number] [place] [address] Mar, Acute suppurative otitis media of right ear without spontaneous rupture of tympanic membrane, recurrence not specified H66.001 ; Encounter for immunization Z23 ; Asthma with acute exacerbation, unspecified asthma severity J45.901 ; Memory problem R41.3 ; Acute pain of right knee M25.561 ; Chronic fatigue R53.82 and Excessive urinary volume R35.8 [place] [id number] [place] [address] Feb, [place] [address] [address] Feb, [place] [id number] [place] [address] Jan, [place] [address] [address] Nov, Esophageal reflux 530.81 ; Anxiety 300.00 and Tingling in extremities 782.0 [facility] [id number] [place] [address] Oct, [facility] [id number] [place] [address] Oct, [facility] [address] [address] Oct, [facility] [address] [address] Oct, [facility] [address] [address] Oct, [facility] [id number] [place] [address] Sep, Other chronic allergic conjunctivitis 372.14 ; Irritable bowel syndrome 564.1 ; 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 ; Fibromyalgia 729.1 ; Extremity pain 729.5 and Neck pain 723.1 [facility] [id number] [place] [address] Sep, [facility] [id number] [place] [address] Aug, [facility] [id number] [place] [address] Aug, [facility] [id number] [place] [address] July, Vomiting 787.03 [facility] [address] [id number] July, Dental examination V72.2 [facility] [id number] [place] [address] Jun, [facility] [id number] [place] [address] Jun, [facility] [place] [facility] [address] [id number] [place] [address] May, [facility] [place] [facility] [address] [id number] [place] [address] May, [facility] [place] [facility] [address] [id number] [place] [address] May, [facility] [place] [facility] [address] [id number] [place] [address] May, [facility] [place] [facility] [address] [id number] [place] [address] May, [facility] [place] [facility] [address] [id number] [place] [address] May, [facility] [place] [facility] [address] [id number] [place] [address] May, [facility] [place] [facility] [address] [id number] [place] [address] May, [facility] [place] [facility] [address] [id number] [place] [address] May, [facility] [place] [facility] [address] [id number] [place] [address] Apr, [facility] [place] [facility] [address] [id number], [place] [address] Apr, 2014 [facility] [place] [facility] [address] [id number], [place] [address] Apr, 2014 [facility] [place] [facility] [address] [id number] [place] [address] Apr, 2014 [facility] [place] [facility] [address] [id number] [place] [address] Apr, [facility] [place] [facility] [address] [id number] [place] [address] Apr, 2014 [facility] [place] [facility] [address] [id number] [place] [address] Mar, [facility] [address] [id number] [place] [address] Mar, [facility] [place] [facility] [address] [id number] [place] [address] Mar, [facility] [address] [id number] [place] [address] Mar, [facility] [address] [id number] [place] [address] Mar, [facility] [address] [id number] [place] [address] Mar, [facility] [address] [id number] [place] [address] Mar, [facility] [address] [id number] [place] [address] Mar, [facility] [address] [id number] [place] [address] Mar, [facility] [address] [id number] [place] [address] Mar, [facility] [address] [id number] [place] [address] Mar, [facility] [place] [facility] [address] [id number] [place] [address] Mar, [facility] [address] [id number] [place] [address] Mar, [facility] [place] [facility] [address] [id number] [place] [address] Mar, [facility] [place] [facility] [address] [id number] [place] [address] Mar, [facility] [place] [facility] [address] [id number] [place] [address] Mar, [facility] [place] [facility] [address] [id number] [place] [address] Mar, [facility] [place] [facility] [address] [id number] [place] [address] Mar, [facility] [place] [facility] [address] [id number] [place] [address] Mar, [facility] [place] [facility] [address] [id number] [place] [address] Feb, [facility] [place] [facility] [address] [id number] [place] [address] Feb, [facility] [place] [facility] [address] [id number] [place] [address] Feb, [facility] [place] [facility] [address] [id number] [place] [address] Feb, [facility] [place] [facility] [address] [id number] [place] [address] Jan, [facility] [place] [facility] [address] [id number] [place] [address] Jan, [facility] [place] [facility] [address] [id number], [place] [address] Jan, [facility] [place] [facility] [address] [id number], [place] [address] 14 Jan, 2014 [facility] [place] [facility] [address] [id number], [place] [address] 14 Jan, 2014 [facility] [place] [facility] [address] [id number] [place] [address] Jan, [facility] [place] [facility] [address] [id number] [place] [address] Jan, [facility] [place] [facility] [address] [id number], [place] [address] 07 Jan, 2014 [facility] [place] [facility] [address] [id number], [place] [address] Dec, [facility] [place] [facility] [address] [id number] [place] [address] 20 Dec, 2013 [facility] [place] [facility] [address] [id number] [place] [address] 17 Dec, 2013 [facility] [place] [facility] [address] [id number] [place] [address] 17 Dec, 2013 [facility] [place] [facility] [address] [id number] [place] [address] 22 Nov, 2013 [facility] [place] [facility] [address] [id number] [place] [address] 22 Nov, 2013 [facility] [place] [facility] [address] [id number] [place] [address] 08 Nov, 2013 [facility] [place] [facility] [address] [id number] [place] [address] 08 Sep, 2013 [facility] [place] [facility] [address] [id number] [place] [address] 05 Sep, 2013 [facility] [place] [facility] [address] [id number] [place] [address] 05 Sep, 2013 [facility] [place] [facility] [address] [facility] [id number] [place] [address] 04 Sep, 2013 [facility] [place] [facility] [address] [id number] [place] [address] 04 Sep, 2013 [facility] [place] [facility] [address] [id number] [address] 03 Sep, 2013 [facility] [place] [facility] [address] [id number] [place] [address] 03 Nov, 2013 [facility] [place] [facility] [address] [facility] [id number] [place] [address] 15 Oct, 2013 [facility] [place] [facility] [address] [id number] [place] [address] 15 Oct, 2013 [facility] [place] [facility] [address] [id number] [place] [address] Sep, [facility] [place] [facility] [address] [id number] [place] [address] Sep, [facility] [place] [facility] [address] [id number] [place] [address] Sep, [facility] [place] [facility] [address] [id number] [place] [address] Sep, [facility] [place] [facility] [address] [id number] [place] [address] Sep, [facility] [place] [facility] [address] [id number] [place] [address] Sep, [facility] [place] [facility] [address] [id number] [place] [address] Aug, [facility] [place] [facility] [address] [id number] [place] [address] Aug, [facility] [place] [facility] [address] [id number] [place] [address] Aug, [facility] [place] [facility] [address] [id number] [place] [address] Aug, [facility] [place] [facility] [address] [id number] [place] [address] Aug, [facility] [place] [facility] [address] [id number] [place] [address] Aug, [facility] [place] [facility] [address] [id number] [place] [address] July, [facility] [place] [facility] [address] [id number] [place] [address] July, [facility] [place] [facility] [address] [id number] [place] [address] July, [facility] [place] [facility] [address] [id number] [place] [address] July, [facility] [place] [facility] [address] [id number] [place] [address] July, [facility] [place] [facility] [address] [id number] [place] [address] July, [facility] [place] [facility] [address] [id number] [place] [address] Jun, [facility] [place] [facility] [address] [id number] [place] [address] Jun, [facility] [place] [facility] [address] [id number] [place] [address] Jun, [facility] [place] [facility] [address] [id number] [place] [address] Jun, [facility] [place] [facility] [address] [id number] [place] [address] May, [facility] [place] [facility] [address] [id number] [place] [place] [address] May, [facility] [place] [facility] [address] [id number] [place] [address] Apr, [facility] [place] [facility] [address] [id number] [place] [address] Apr, [facility] [place] [facility] [address] [id number] [place] [address] Apr, [facility] [place] [facility] [address] [id number] [place] [address] Apr, [facility] [place] [facility] [address] [id number] [place] [address] Mar, [facility] [place] [facility] [address] [id number] [place] [address] Mar, [facility] [place] [facility] [address] [id number] [place] [address] Mar, [facility] [place] [facility] [address] [id number] [place] [address] Mar, [facility] [address] [id number] [place] [address] Mar, [facility] [address] [id number] [place] [address] Mar, [facility] [address] [id number] [place] [address] Feb, [facility] [address] [id number] [place] [address] Feb, [facility] [address] [id number] [place] [address] Jan, [facility] [address] [id number] [place] [address] Jan, [facility] [address] [id number] [place] [address] Jan, [facility] [address] [id number] [place] [address] Jan, [facility] [address] [id number] [place] [address] Nov, [facility] [address] [id number] [place] [address] Nov, [facility] [address] [id number] [place] [address] Oct, [facility] [address] [id number] [place] [address] Oct, [facility] [place] [facility] [address] [id number] [place] [address] Sep, [facility] [place] [facility] [address] [id number] [place] [address] Sep, [facility] [place] [facility] [address] [id number] [place] [address] Sep, [facility] [address] [id number] [place] [address] Aug, [facility] [place] [facility] [address] [id number] [place] [address] Aug, [facility] [place] [facility] [address] [id number] [place] [address] Aug, [facility] [place] [facility] [address] [id number] [place] [address] Aug, [facility] [address] [id number] [place] [address] July, [facility] [place] [facility] [address] [id number] [place] [address] July, [facility] [place] [facility] [address] [id number] [place] [address] July, [facility] [address] [id number] [place] [address] July, [facility] [place] [facility] [address] [id number] [place] [address] Jun, [facility] [place] [facility] [address] [id number] [place] [address] Jun, [facility] [place] [facility] [address] [id number] [place] [address] Jun, [facility] [place] [facility] [address] [id number], [place] [address] May, [facility] [place] [facility] [address] [id number] [place] [address] May, [facility] [place] [facility] [address] [id number] [place] [address] Apr, [facility] [place] [facility] [address] [id number] [place] [address] Apr, [facility] [place] [facility] [address] [id number] [place] [address] Apr, [facility] [place] [facility] [address] [id number] [place] [address] Apr, [facility] [place] [facility] [address] [id number] [place] [address] Mar, [facility] [place] [facility] [address] [id number] [place] [address] Mar, [facility] [place] [facility] [address] [id number] [place] [address] Mar, [facility] [place] [facility] [address] [id number] [place] [address] Mar, [facility] [place] [facility] [address] [id number] [place] [address] Feb, [facility] [address] [id number] [place] [address] Feb, [facility] [place] [facility] [address] [id number] [place] [address] Feb, [facility] [place] [facility] [address] [id number] [place] [address] Feb, [facility] [place] [facility] [address] [id number] [place] [address] Feb, [facility] [place] [facility] [address] [id number] [place] [address] Feb, [facility] [place] [facility] [address] [id number] [place] [address] Feb, [facility] [place] [facility] [address] [id number] [place] [address] Feb, [facility] [place] [facility] [address] [id number] [place] [address] Jan, [facility] [place] [facility] [address] [id number] [place] [address] Jan, [facility] [place] [facility] [address] [id number] [place] [address] 15 Jan, 2012 [facility] [place] [facility] [address] [id number] [place] [address] 15 Jan, 2012 [facility] [place] [facility] [address] [id number] [place] [address] 14 Jan, 2012 [facility] [place] [facility] [address] [id number] [place] [address], [place] [address] 13 Jan, 2012 [facility] [place] [facility] [address] [id number] [place] [address] 13 Jan, 2012 [facility] [place] [facility] [address] [id number] [place] [address] Jan, [facility] [place] [facility] [address] [id number] [place] [address] Jan, [facility] [place] [facility] [address] [id number] [place] [address] Jan, [facility] [place] [facility] [address] [id number] [place] [address] Jan, [facility] [place] [facility] [address] [id number] [place] [address] Dec, [facility] [place] [facility] [address] [id number] [place] [address] Dec, [facility] [place] [facility] [address] [id number], [place] [address] Dec, [facility] [place] [facility] [address] [id number] [place] [address] Dec, [facility] [place] [facility] [address] [id number] [place] [address] Dec, [facility] [place] [facility] [address] [id number] [place] [address] Dec, [facility] [place] [facility] [address] [id number] [place] [address] Dec, [facility] [place] [facility] [address] [id number] [place] [address] Dec, [facility] [place] [facility] [address] [id number] [place] [address] Dec, [facility] [place] [facility] [address] [id number] [place] [address] Dec, [facility] [place] [facility] [address] [id number] [place] [address] Dec, [facility] [place] [facility] [address] [id number] [place] [address] Dec, [facility] [place] [facility] [address] [id number] [place] [address] Nov, [facility] [place] [facility] [address] [id number] [place] [address] Oct, [facility] [place] [facility] [address] [id number] [place] [address] Oct, [facility] [place] [facility] [address] [id number] [place] [address] Oct, [facility] [place] [facility] [address] [id number] [place] [address] Oct, [facility] [place] [facility] [address] [id number] [place] [address] Sep, [facility] [place] [facility] [address] [id number] [place] [address] Sep, [facility] [place] [facility] [address] [id number] [place] [address] Sep, [facility] [place] [facility] [address] [id number] [place] [address] Sep, [facility] [place] [facility] [address] [id number] [place] [address] Aug, [facility] [place] [facility] [address] [id number], [place] [address] Aug, [facility] [id number], [place] [address] Aug, [facility] [id number], [place] [address] Aug, [facility] [id number], [place] [address] Aug, [facility] [id number], [place] [address] July, [facility] [id number], [place] [address] July, [facility] [id number], [place] [address] July, [facility] [id number], [place] [address] Dec, IMMUNIZATIONS No Known Immunizations SOCIAL HISTORY Never Assessed [place] [place] VITAL SIGNS MEDICATIONS Unknown [...]
--- OUTSIDE RECORDS SUMMARY | 2018-10-24 12:07 | XMS REPORT ---
Author Author Migration, Doctor Organization [facility] Address Unknown Phone Unavailable Care Team Providers Care Benefits Counselor Name Role Phone Migration, Doctor Unavailable Unavailable PROBLEMS Type Condition ICD9-CM Code HXJ02-NO Code Onset Dates Condition Status SNOMED Code Problem MRSA (methicillin resistant staph aureus) culture positive Z22.322 Active 174251864 Problem Interstitial cystitis N30.10 Active 408886298 Problem Chronic periodontal disease K05.6 Active 8845080 Problem Epilepsy G40.909 Active 82550110 Problem Major depressive disorder F32.9 Active 647827742 Problem Esophageal reflux K21.9 Active 675481983 Problem Generalized anxiety disorder F41.1 Active 869856793 Problem Irritable bowel syndrome without diarrhea K58.9 Active 59015858 Problem Tinnitus of both ears H93.13 Active 9400964423514 Problem Chronic obstructive pulmonary disease, unspecified COPD type J44.9 Active 22701340 Problem COPD exacerbation J44.1 Active 422233623 Problem Fibromyalgia M79.7 Active 21610193 Problem Paresthesia of skin R20.2 Active 59141880 Problem Lumbago M54.5 Active 186830725 Problem On antiepileptic therapy Z79.899 Active 409445083 Problem Vitamin D deficiency E55.9 Active 20033664 Problem Irritable bowel syndrome with diarrhea K58.0 Active 006301607 Problem Menopausal symptoms N95.1 Active 81504355 ALLERGIES No Information ENCOUNTERS Encounter Location Date Diagnosis [facility] [address] [facility] [id number], [place] [address] July, [facility] [address] [facility] [id number], [place] [address] Jun, [place] [address] [facility] [id number], [place] [address] Jun, Dysuria R30.0 ; Major depressive disorder F32.9 ; Interstitial cystitis N30.10 ; Vitamin D deficiency E55.9 ; Hematochezia K92.1 ; Paresthesia of skin R20.2 and Weight loss R63.4 [facility] [id number] [place] [address] Jun, Fibromyalgia M79.7 [facility] [id number] [place] [address] May, Fibromyalgia M79.7 [facility] [address] [address] Apr, [facility] [address] [address] Mar, Fibromyalgia M79.7 [facility] [address] [address] Feb, Fibromyalgia M79.7 [facility] [address] [address] Feb, Acute cystitis with hematuria N30.01 [facility] [address] [address] Feb, Acute cystitis with hematuria N30.01 ; COPD exacerbation J44.1 ; Interstitial cystitis N30.10 ; Nausea R11.0 and Rectal bleeding K62.5 [facility] [id number] [place] [address] Jan, Fibromyalgia M79.7 [facility] [address] [id number] [place] [address] [id number] Dec, [facility] [id number] [place] [address] [id number] Dec, [facility] [address] [address] Dec, Fibromyalgia M79.7 [facility] [id number] [place] [address] Dec, [facility] [address] [address] Oct, [facility] [address] [place] [address] [id number] Oct, [facility] [address] [address] Oct, [facility] [id number] [place] [address] Sep, [facility] [address] [address] Sep, [facility] [id number] [place] [address] Sep, [facility] [id number] [place] [address] [id number] Aug, Dental examination Z01.20 [facility] [address] [address] Aug, Abscess of axilla, left L02.412 [facility] [id number] [place] [address] Aug, Esophageal reflux K21.9 [facility] [address] [address] Aug, [facility] [id number] [place] [address] Aug, Esophageal reflux K21.9 ; Fluid level behind tympanic membrane of right ear H65.91 ; Fibromyalgia M79.7 and Lumbago M54.5 [facility] [id number] [place] [address] Aug, Esophageal reflux K21.9 [facility] [address] [address] July, [facility] [id number] [place] [address] July, [facility] [id number] [place] [address] July, Chronic obstructive pulmonary disease, unspecified COPD type J44.9 [facility] [id number] [place] [address] July, [facility] [id number] [place] [address] July, [place] [address] [place] [address] [id number] [place] [address] July, Interstitial cystitis N30.10 ; Fibromyalgia M79.7 [...] Dysuria R30.0 and Generalized anxiety disorder F41.1 [place] [address] [place] [address] [id number] [place] [address] Jun, [place] [address] [place] [address] [id number] [place] [address] Jun, Chronic obstructive pulmonary disease, unspecified COPD type J44.9 ; COPD exacerbation J44.1 and Sore throat J02.9 [place] [address] [place] [id number] [place] [address] Jun, Fibromyalgia M79.7 [place] [address] [place] [id number] [place] [address] Jun, Fibromyalgia M79.7 [place] [address] [place] [id number] [place] [address] May, [facility] [address] [place] [id number] [place] [address] May, [place] [address] [place] [address] [id number] [place] [address] May, Fibromyalgia M79.7 [facility] [id number] [place] [address] Mar, [facility] [address] [id number] [place] [address] Mar, Epilepsy G40.909 ; Lumbago M54.5 ; Esophageal reflux K21.9 ; Fibromyalgia M79.7 ; Chronic obstructive pulmonary disease, unspecified COPD type J44.9 ; Vitamin D deficiency E55.9 ; Fluid level behind tympanic membrane of right ear H65.91 ; Irritable bowel syndrome with diarrhea K58.0 ; Hematochezia K92.1 and Generalized anxiety disorder F41.1 [facility] [address] [place] [address] [id number] [place] [address] Mar, [place] [address] [place] [id number] [place] [address] Mar, [facility] [address] [id number] [place] [address] Mar, Vitamin D deficiency E55.9 [facility] [address] [place] [address] [id number] [place] [address] Feb, [facility] [address] [id number] [place] [address] Feb, [facility] [address] [place] [address] [id number] [place] [address] Jan, Fibromyalgia M79.7 [facility] [id number] [place] [address] Jan, [facility] [id number] [place] [address] Jan, [facility] [id number] [place] [address] Jan, Vitamin D deficiency E55.9 [facility] [id number] [place] [address] Dec, [place] [address] [place] [address] Dec, [facility] [address] [place] [address] [id number] [place] [address] Dec, Generalized anxiety disorder F41.1 [place] [address] [place] [id number] [place] [address] Dec, Dysuria R30.0 ; Acute bilateral low back pain without sciatica M54.5 and Encounter for immunization Z23 [place] [address] [place] [id number] [place] [address] Oct, [place] [address] [place] [id number] [place] [address] Oct, Fibromyalgia M79.7 [place] [address] [place] [id number] [place] [address] Sep, Dysuria R30.0 and Acute bronchitis, unspecified organism J20.9 [place] [address] [place] [id number] [place] [address] Sep, [place] [address] [place] [id number] [place] [address] Sep, Rectal prolapse K62.3 [place] [address] [place] [id number] [place] [address] Sep, Chronic obstructive pulmonary disease, unspecified COPD type J44.9 [facility] [address] [place] [id number] [place] [address] [id number] Aug, [facility] [address] [place] [address] [id number] [place] [address] [id number] Aug, [facility] [address] [place] [address] [id number] [place] [address] Aug, Light headedness R42 ; On antiepileptic therapy Z79.899 ; Vitamin D deficiency E55.9 ; Screening for lipid disorders Z13.220 ; Dysuria R30.0 and Hemorrhoids, unspecified hemorrhoid type K64.9 [place] [address] [place] [id number] [place] [address] Aug, Internal prolapsed hemorrhoids K64.8 [place] [address] [place] [id number] [place] [address] July, [place] [address] [place] [id number] [place] [address] May, [place] [address] [address] May, Fever and chills R50.9 and Influenza B J10.[address] [address] Apr, [place] [address] [address] Apr, Fibromyalgia M79.7 and Generalized anxiety disorder F41.[address] [address] Mar, Esophageal reflux K21.9 ; Generalized anxiety disorder F41.1 and Epilepsy G40.909 [place] [id number] [place] [address] Mar, Epilepsy G40.909 ; Esophageal reflux K21.9 ; Fibromyalgia M79.7 ; Generalized anxiety disorder F41.1 ; Pain of left foot M79.672 ; Pain in right foot M79.671 ; Ear pain, right H92.01 ; Tinnitus of both ears H93.13 ; Chronic obstructive pulmonary disease, unspecified COPD type J44.9 ; Vitamin D deficiency E55.9 ; Screening for lipid disorders Z13.220 and On antiepileptic therapy Z79.899 [place] [address] [place] [id number] [place] [address] Feb, [place] [id number] [place] [address] Feb, [facility] [address] [place] [id number] [place] [address] Feb, Dysuria R30.0 and Plantar fasciitis of right foot M72.2 [facility] [address] [place] [id number] [place] [address] Feb, [facility] [address] [place] [id number] [place] [address] Feb, [facility] [id number] [place] [address] Jan, [facility] [id number] [place] [address] Jan, [facility] [address] [place] [id number] [place] [address] Dec, [facility] [address] [id number] [place] [address] Dec, [facility] [id number] [place] [address] Dec, [facility] [id number] [place] [address] Nov, [facility] [id number] [place] [address] Sep, [facility] [address] [place] [address] Aug, Shortness of breath R06.02 and Acute suppurative otitis media of right ear without spontaneous rupture of tympanic membrane, recurrence not specified H66.001 [facility] [address] [place] [address] 14 Aug, 2015 Internal prolapsed hemorrhoids K64.8 [facility] [address] [place] [id number] [place] [address] 06 Jun, 2015 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 [facility] [id number] [place] [address] May, Fibromyalgia M79.7 ; Interstitial cystitis N30.10 ; Intractable migraine without aura and without status migrainosus G43.019 ; Low vitamin D level E55.9 and Ringing in right ear H93.11 [place] [address] [place] [id number] [place] [address] May, [place] [address] [address] May, Low vitamin D level E55.9 [place] [address] [place] [id number] [place] [address] Apr, [place] [address] [address] Mar, [place] [address] [address] Mar, Acute suppurative otitis media of right ear without spontaneous rupture of tympanic membrane, recurrence not specified H66.001 ; Encounter for immunization Z23 ; Asthma with acute exacerbation, unspecified asthma severity J45.901 ; Memory problem R41.3 ; Acute pain of right knee M25.561 ; Chronic fatigue R53.82 and Excessive urinary volume R35.8 [place] [address] [place] [id number] [place] [address] Feb, [place] [address] [address] Feb, [place] [address] [address] [id number] [place] [address] Jan, [place] [address] [address] Nov, Esophageal reflux 530.81 ; Anxiety 300.00 and Tingling in extremities 782.0 [place] [address] [place] [id number] [place] [address] Oct, [place] [address] [place] [address] Oct, [facility] [id number] [place] [address] Oct, [facility] [id number] [place] [address] Oct, [facility] [id number] [place] [address] Oct, [facility] [id number] [place] [address] Sep, Other chronic allergic conjunctivitis 372.14 ; Irritable bowel syndrome 564.1 ; 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 ; Fibromyalgia 729.1 ; Extremity pain 729.5 and Neck pain 723.1 [facility] [id number] [place] [address] Sep, [facility] [id number] [place] [address] Aug, [facility] [id number] [place] [address] Aug, [facility] [id number] [place] [address] July, Vomiting 787.03 [facility] [id number] [place] [address] [id number] July, Dental examination V72.2 [facility] [id number] [place] [address] Jun, [facility] [id number] [place] [address] Jun, [facility] [id number] [place] [address] May, [facility] [address] [address] May, [facility] [address] [place] [id number] [address] 16 May, 2014 [facility] [place] [facility] [address] [id number] [place] [address] May, [facility] [place] [facility] [address] [id number] [place] [address] May, [facility] [place] [facility] [address] [id number] [place] [address] May, [facility] [place] [facility] [address] [id number] [place] [address] May, [facility] [place] [facility] [address] [id number] [place] [address] May, [facility] [place] [facility] [address] [facility] [id number] [place] [address] May, [facility] [place] [facility] [address] [id number] [place] [address] Apr, [facility] [place] [facility] [address] [id number] [place] [address] Apr, [facility] [place] [facility] [address] [facility] [id number] [place] [address] Apr, [facility] [place] [facility] [address] [facility] [id number] [place] [address] Apr, [facility] [place] [facility] [address] [facility] [id number] [place] [address] Apr, [facility] [place] [facility] [address] [facility] [id number] [place] [address] Apr, [facility] [place] [facility] [address] [id number] [place] [address] Mar, [facility] [place] [facility] [address] [id number] [place] [address] Mar, [facility] [place] [facility] [address] [facility] [id number] [place] [address] Mar, [facility] [place] [facility] [address] [id number] [place] [address] Mar, [facility] [place] [facility] [address] [id number] [place] [address] Mar, [facility] [place] [facility] [address] [id number] [place] [address] Mar, [facility] [place] [facility] [address] [id number] [place] [address] Mar, [facility] [place] [facility] [address] [id number] [place] [address] Mar, [facility] [place] [facility] [address] [id number] [place] [address] Mar, [facility] [place] [facility] [address] [id number] [place] [address] Mar, [facility] [place] [facility] [address] [id number] [place] [address] Mar, [facility] [place] [facility] [address] [id number] [place] [address] Mar, [facility] [place] [facility] [address] [id number] [place] [address] Mar, [facility] [place] [facility] [address] [id number], [place] [address] Mar, [facility] [place] [facility] [address] [id number], [place] [address] Mar, [facility] [place] [facility] [address] [id number] [place] [address] Mar, [facility] [place] [facility] [address] [id number] [place] [address] Mar, [facility] [place] [facility] [address] [id number] [place] [address] Mar, [facility] [place] [facility] [address] [id number] [place] [address] Mar, [facility] [address] [id number] [place] [address] Feb, [facility] [place] [facility] [address] [id number] [place] [address] Feb, [facility] [place] [facility] [address] [id number] [place] [address] Feb, [facility] [place] [facility] [address] [id number] [place] [address] Feb, [facility] [place] [facility] [address] [id number] [place] [address] Jan, [facility] [place] [facility] [address] [id number] [place] [address] Jan, [facility] [place] [facility] [address] [id number] [place] [address] Jan, [facility] [place] [facility] [address] [id number] [place] [address] 14 Jan, 2014 [facility] [place] [facility] [address] [id number] [place] [address] 14 Jan, 2014 [facility] [place] [facility] [address] [facility] [id number] [place] [address] 14 Jan, 2014 [facility] [place] [facility] [address] [id number] [place] [address] Jan, [facility] [place] [facility] [address] [id number] [place] [address] 07 Jan, 2014 [facility] [place] [facility] [address] [id number] [place] [address] Dec, [facility] [place] [facility] [address] [id number] [place] [address] Dec, [facility] [place] [facility] [address] [id number] [place] [address] Dec, [facility] [place] [facility] [address] [id number] [place] [address] 17 Dec, 2013 [facility] [place] [facility] [address] [id number] [place] [address] 22 Nov, 2013 [facility] [place] [facility] [address] [id number] [place] [address] Nov, 2013 [facility] [place] [facility] [address] [id number] [place] [address] 08 Nov, 2013 [facility] [place] [facility] [address] [id number] [place] [address] 08 Nov, 2013 [facility] [place] [facility] [address] [id number] [place] [address] 05 Nov, 2013 [facility] [place] [facility] [address] [id number] [place] [address] 05 Nov, 2013 [facility] [place] [facility] [address] [id number] [place] [address] 04 Nov, 2013 [facility] [place] [facility] [address] [id number] [place] [address] 04 Nov, 2013 [facility] [place] [facility] [address] [id number] [place] [address] 03 Nov, 2013 [facility] [place] [facility] [address] [id number] [place] [address] Nov, [facility] [place] [facility] [address] [id number] [address] 15 Oct, 2013 [facility] [place] [facility] [address] [id number] [place] [address] Oct, [facility] [place] [facility] [address] [id number] [place] [address] Sep, [facility] [place] [facility] [address] [id number], [place] [address] 14 Sep, 2013 [facility] [place] [facility] [address] [id number], [place] [address] Sep, [facility] [place] [facility] [address] [id number] [place] [address] Sep, [facility] [place] [facility] [address] [id number] [place] [address] Sep, [facility] [place] [facility] [address] [id number] [place] [address] Sep, [facility] [place] [facility] [address] [id number] [place] [address] Aug, [facility] [place] [facility] [address] [id number] [place] [address] Aug, [facility] [place] [facility] [address] [id number] [place] [address] Aug, [facility] [place] [facility] [address] [id number] [place] [address] Aug, [facility] [place] [facility] [address] [id number] [place] [address] Aug, [facility] [place] [facility] [address] [id number] [place] [address] Aug, [facility] [place] [facility] [address] [id number] [place] [address] July, [facility] [place] [facility] [address] [id number] [place] [address] July, [facility] [place] [facility] [address] [id number] [place] [address] July, [facility] [place] [facility] [address] [id number] [place] [address] July, [facility] [place] [facility] [address] [id number] [place] [address] July, [facility] [place] [facility] [address] [id number] [place] [address] July, [facility] [place] [facility] [address] [id number] [place] [address] Jun, [facility] [place] [facility] [address] [id number] [place] [address] Jun, [facility] [place] [facility] [address] [id number] [place] [address] Jun, [facility] [place] [facility] [address] [id number] [place] [address] Jun, [facility] [place] [facility] [address] [id number] [place] [address] May, [facility] [place] [facility] [address] [id number] [place] [address] May, [facility] [place] [facility] [address] [id number] [place] [address] Apr, [facility] [place] [facility] [address] [id number] [place] [address] Apr, [facility] [place] [facility] [address] [id number] [place] [address] Apr, [facility] [place] [facility] [address] [id number] [place] [address] Apr, [facility] [place] [facility] [address] [id number] [place] [address] Mar, [facility] [place] [facility] [address] [id number] [place] [address] Mar, [facility] [place] [facility] [address] [id number] [place] [address] Mar, [facility] [place] [facility] [address] [id number] [place] [address] Mar, [facility] [place] [facility] [address] [id number] [place] [address] Mar, [facility] [place] [facility] [address] [id number] [place] [address] Mar, [facility] [address] [id number] [place] [address] Feb, [facility] [place] [facility] [address] [id number] [place] [address] Feb, [facility] [place] [facility] [address] [id number] [place] [address] Jan, [facility] [place] [facility] [address] [id number] [place] [address] Jan, [facility] [place] [facility] [address] [id number] [place] [address] Jan, [facility] [place] [facility] [address] [id number] [place] [address] Jan, [facility] [place] [facility] [address] [id number] [place] [address] Nov, [facility] [place] [facility] [address] [id number] [place] [address] Nov, [facility] [place] [facility] [address] [id number] [place] [address] Oct, [facility] [place] [facility] [address] [id number] [place] [address] Oct, [facility] [place] [facility] [address] [id number], [place] [address] Sep, [facility] [place] [facility] [address] [id number], [place] [address] Sep, [facility] [place] [facility] [address] [id number] [place] [address] Sep, [facility] [place] [facility] [address] [id number] [place] [address] Aug, [facility] [place] [facility] [address] [id number] [place] [address] Aug, [facility] [place] [facility] [address] [id number] [place] [address] Aug, [facility] [address] [id number] [place] [address] Aug, [facility] [address] [id number] [place] [address] July, [facility] [address] [id number] [place] [address] July, [facility] [address] [id number] [place] [address] July, [facility] [address] [id number] [place] [address] July, [facility] [address] [id number] [place] [address] Jun, [facility] [address] [id number] [place] [address] Jun, [facility] [address] [id number] [place] [address] Jun, [facility] [address] [id number] [place] [address] May, [facility] [address] [id number] [place] [address] May, [facility] [address] [id number] [place] [address] Apr, [facility] [address] [id number] [place] [address] Apr, [facility] [address] [id number] [place] [address] Apr, [facility] [address] [id number] [place] [address] Apr, [facility] [address] [id number] [place] [address] Mar, [facility] [place] [facility] [address] [id number] [place] [address] Mar, [facility] [place] [facility] [address] [id number] [place] [address] Mar, [facility] [place] [facility] [address] [id number] [place] [address] Mar, [facility] [place] [facility] [address] [id number] [place] [address] Feb, [facility] [place] [facility] [address] [id number] [place] [address] Feb, [facility] [place] [facility] [address] [id number] [place] [address] Feb, [facility] [place] [facility] [address] [id number] [place] [address] Feb, [facility] [place] [facility] [address] [id number] [place] [address] Feb, [facility] [place] [facility] [address] [id number] [place] [address] Feb, [facility] [place] [facility] [address] [id number] [place] [address] Feb, [facility] [place] [facility] [address] [id number] [place] [address] Feb, [facility] [place] [facility] [address] [id number], [place] [address] Jan, [facility] [place] [facility] [address] [id number] [place] [address] Jan, [facility] [place] [facility] [address] [id number] [place] [address] Jan, [facility] [place] [facility] [address] [id number] [place] [address] Jan, [facility] [place] [facility] [address] [id number] [place] [address] 14 Jan, 2012 [facility] [place] [facility] [address] [id number] [place] [address] 13 Jan, 2012 [facility] [place] [facility] [address] [id number] [place] [address] 13 Jan, 2012 [facility] [place] [facility] [address] [id number] [place] [address] 12 Jan, 2012 [facility] [place] [facility] [address] [id number] [place] [address] Jan, [facility] [place] [facility] [address] [id number] [place] [address] Jan, [facility] [place] [facility] [address] [id number] [place] [address] Jan, [facility] [place] [facility] [address] [facility] [id number] [place] [address] 31 Dec, 2011 [facility] [place] [facility] [address] [id number] [place] [address] 31 Dec, 2011 [facility] [place] [facility] [address] [id number] [place] [address] 29 Dec, 2011 [facility] [place] [facility] [address] [facility] [id number] [place] [address] 29 Dec, 2011 [facility] [place] [facility] [address] [id number] [place] [address] 29 Dec, 2011 [facility] [place] [facility] [address] [id number], [place] [address] 29 Dec, 2011 [facility] [place] [facility] [address] [id number] [place] [address] 19 Dec, 2011 [facility] [place] [facility] [address] [facility] [id number] [place] [address] 19 Dec, 2011 [facility] [place] [facility] [address] [facility] [id number], [place] [address] 15 Dec, 2011 [facility] [place] [facility] [address] [id number] [place] [address] Dec, [facility] [place] [facility] [address] [id number] [place] [address] Dec, [facility] [place] [facility] [address] [id number] [place] [address] Dec, [facility] [place] [facility] [address] [id number] [place] [address] Nov, [facility] [place] [facility] [address] [id number] [place] [address] Oct, [facility] [place] [facility] [address] [id number] [place] [address] Oct, [facility] [place] [facility] [address] [id number] [place] [address] Oct, [facility] [place] [facility] [address] [id number] [place] [address] Oct, [facility] [place] [facility] [address] [id number] [place] [address] Sep, [facility] [place] [facility] [address] [id number] [place] [address] Sep, [facility] [place] [facility] [address] [id number] [place] [address] Sep, [facility] [place] [facility] [address] [id number] [place] [address] Sep, [facility] [place] [facility] [address] [id number] [place] [address] Aug, [facility] [place] [facility] [address] [id number] [place] [address] Aug, [facility] [place] [facility] [address] [id number] [place] [address] Aug, [facility] [place] [facility] [address] [id number], [place] [address] Aug, [facility] [address] [facility] [id number], [place] [address] Aug, [facility] [id number], [place] [address] July, [facility] [address] [facility] [id number], [place] [address] July, [facility] [id number], [place] [address] July, [facility] [address] [facility] [id number], [place] [address] Dec, IMMUNIZATIONS No Known Immunizations SOCIAL HISTORY Never Assessed REASON FOR VISIT [facility] PLAN OF CARE VITAL SIGNS MEDICATIONS Unknown [...]
--- OUTSIDE RECORDS SUMMARY | 2018-10-24 12:08 | XMS REPORT ---
Author Author Migration, Doctor Organization 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 Name Role Phone Migration, Doctor Unavailable Unavailable PROBLEMS Type Condition ICD9-CM Code OJA68-TG Code Onset Dates Condition Status SNOMED Code Problem MRSA (methicillin resistant staph aureus) culture positive Z22.322 Active 978654204 Problem Interstitial cystitis N30.10 Active 921752778 Problem Chronic periodontal disease K05.6 Active 8406962 Problem Epilepsy G40.909 Active 50123471 Problem Major depressive disorder F32.9 Active 508798243 Problem Esophageal reflux K21.9 Active 812640726 Problem Generalized anxiety disorder F41.1 Active 191704187 Problem Irritable bowel syndrome without diarrhea K58.9 Active 25990045 Problem Tinnitus of both ears H93.13 Active 8150613878391 Problem Chronic obstructive pulmonary disease, unspecified COPD type J44.9 Active 63550062 Problem COPD exacerbation J44.1 Active 063644113 Problem Fibromyalgia M79.7 Active 80870426 Problem Paresthesia of skin R20.2 Active 16644580 Problem Lumbago M54.5 Active 993065707 Problem On antiepileptic therapy Z79.899 Active 872437291 Problem Vitamin D deficiency E55.9 Active 39136014 Problem Irritable bowel syndrome with diarrhea K58.0 Active 850294991 Problem Menopausal symptoms N95.1 Active 69464993 ALLERGIES No Information ENCOUNTERS Encounter Location Date Diagnosis [facility] [id number] [address] Jun, [facility] [id number], [place] [address] Jun, Dysuria R30.0 ; Major depressive disorder F32.9 ; Interstitial cystitis N30.10 ; Vitamin D deficiency E55.9 ; Hematochezia K92.1 ; Paresthesia of skin R20.2 and Weight loss R63.4 [facility] [id number] [place] [address] Jun, Fibromyalgia M79.7 [facility] [id number] [place] [address] May, Fibromyalgia M79.7 [facility] [id number] [place] [address] Apr, [facility] [address] [address] Mar, Fibromyalgia M79.7 [facility] [id number] [place] [address] Feb, Fibromyalgia M79.7 [facility] [id number] [place] [address] Feb, Acute cystitis with hematuria N30.01 [facility] [address] [address] Feb, Acute cystitis with hematuria N30.01 ; COPD exacerbation J44.1 ; Interstitial cystitis N30.10 ; Nausea R11.0 and Rectal bleeding K62.5 [facility] [id number] [place] [address] Jan, Fibromyalgia M79.7 [facility] [id number] [place] [id number] Dec, [facility] [id number] [place] [address] [id number] Dec, [facility] [id number] [place] [address] Dec, Fibromyalgia M79.7 [facility] [address] [address] Dec, [facility] [id number] [place] [address] Oct, [facility] [id number] [place] [address] [id number] Oct, [facility] [id number] [place] [address] Oct, [facility] [id number] [place] [address] Sep, [facility] [id number] [place] [address] Sep, [facility] [id number] [place] [address] Sep, [facility] [id number] [place] [id number] Aug, Dental examination Z01.20 [facility] [id number] [place] [address] Aug, Abscess of axilla, left L02.412 [address] [facility] [id number] [place] [address] Aug, Esophageal reflux K21.9 [facility] [id number] [place] [address] Aug, [facility] [address] [address] Aug, Esophageal reflux K21.9 ; Fluid level behind tympanic membrane of right ear H65.91 ; Fibromyalgia M79.7 and Lumbago M54.5 [facility] [id number] [place] [address] Aug, Esophageal reflux K21.9 [facility] [id number] [place] [address] July, [facility] [id number] [place] [address] July, [facility] [id number] [place] [address] July, Chronic obstructive pulmonary disease, unspecified COPD type J44.9 [facility] [address], [place] [address] July, [facility] [id number] [place] [address] July, [facility] [facility] [id number] [place] [address] July, Interstitial cystitis N30.10 ; Fibromyalgia M79.7 [...] Dysuria R30.0 and Generalized anxiety disorder F41.1 [facility] [id number] [place] [address] Jun, [facility] [facility] [id number] [place] [address] Jun, Chronic obstructive pulmonary disease, unspecified COPD type J44.9 ; COPD exacerbation J44.1 and Sore throat J02.9 [address] [place] [id number] [place] [address] Jun, Fibromyalgia M79.7 [facility] [id number] [place] [address] Jun, Fibromyalgia M79.7 [facility] [id number] [place] [address] May, [facility] [id number] [place] [address] May, [facility] [id number] [place] [address] May, Fibromyalgia M79.7 [facility] [id number] [place] [address] Mar, [facility] [address], [place] [address] Mar, Epilepsy G40.909 ; Lumbago M54.5 ; Esophageal reflux K21.9 ; Fibromyalgia M79.7 ; Chronic obstructive pulmonary disease, unspecified COPD type J44.9 ; Vitamin D deficiency E55.9 ; Fluid level behind tympanic membrane of right ear H65.91 ; Irritable bowel syndrome with diarrhea K58.0 ; Hematochezia K92.1 and Generalized anxiety disorder F41.1 [facility] [id number] [place] [address] Mar, [facility] [id number] [place] [address] Mar, [facility] [id number] [place] [address] Mar, Vitamin D deficiency E55.9 [facility] [id number] [place] [address] Feb, [facility] [id number] [place] [address] Feb, [facility] [id number] [place] [address] Jan, Fibromyalgia M79.7 [facility] [id number] [place] [address] Jan, [facility] [id number] [place] [address] Jan, [facility] [id number] [place] [address] Jan, Vitamin D deficiency E55.9 [facility] [id number] [place] [address] Dec, [facility] [id number] [place] [address] Dec, [facility] [id number] [place] [address] Dec, Generalized anxiety disorder F41.1 [facility] [id number] [place] [address] Dec, Dysuria R30.0 ; Acute bilateral low back pain without sciatica M54.5 and Encounter for immunization Z23 [facility] [facility] [address] [address] Oct, [facility] [facility] [address] [address] Oct, Fibromyalgia M79.7 [address] [facility] [address] [address] Sep, Dysuria R30.0 and Acute bronchitis, unspecified organism J20.9 [facility] [id number] [place] [address] Sep, [facility] [id number] [place] [address] Sep, Rectal prolapse K62.3 [id number] [place] [address] Sep, Chronic obstructive pulmonary disease, unspecified COPD type J44.9 [address] [facility] [id number] [place] [address] [id number] Aug, [facility] [id number] [place] [address] [id number] Aug, [place] [id number] [place] [address] Aug, Light headedness R42 ; On antiepileptic therapy Z79.899 ; Vitamin D deficiency E55.9 ; Screening for lipid disorders Z13.220 ; Dysuria R30.0 and Hemorrhoids, unspecified hemorrhoid type K64.9 [facility] [id number] [place] [address] Aug, Internal prolapsed hemorrhoids K64.8 [facility] [id number] [place] [address] July, [facility] [facility] [id number] [place] [address] May, [address] [facility] [id number] [place] [address] May, Fever and chills R50.9 and Influenza B J10.1 [address] [facility] [id number] [place] [address] Apr, [address] [address] Apr, Fibromyalgia M79.7 and Generalized anxiety disorder F41.[address] [address] Mar, Esophageal reflux K21.9 ; Generalized anxiety disorder F41.1 and Epilepsy G40.909 [address] [facility] [id number] [place] [address] Mar, Epilepsy G40.909 ; Esophageal reflux K21.9 ; Fibromyalgia M79.7 ; Generalized anxiety disorder F41.1 ; Pain of left foot M79.672 ; Pain in right foot M79.671 ; Ear pain, right H92.01 ; Tinnitus of both ears H93.13 ; Chronic obstructive pulmonary disease, unspecified COPD type J44.9 ; Vitamin D deficiency E55.9 ; Screening for lipid disorders Z13.220 and On antiepileptic therapy Z79.899 [address] [id number] [place] [address] Feb, [address] [place] [address] Feb, [facility] [id number] [place] [address] Feb, Dysuria R30.0 and Plantar fasciitis of right foot M72.2 [facility] [address] [place] [address] Feb, [facility] [id number] [place] [address] Feb, [facility] [id number] [place] [address] Jan, [facility] [id number] [place] [address] Jan, [facility] [id number] [place] [address] Dec, [facility] [id number] [place] [address] Dec, [facility] [id number] [place] [address] Dec, [facility] [id number] [place] [address] Nov, [facility] [id number] [place] [address] Sep, [facility] [address] [place] [address] Aug, Shortness of breath R06.02 and Acute suppurative otitis media of right ear without spontaneous rupture of tympanic membrane, recurrence not specified H66.001 [facility] [id number] [place] [address] 14 Aug, 2015 Internal prolapsed hemorrhoids K64.8 [facility] [id number] [place] [address] Jun, 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 [facility] [id number] [place] [address] May, Fibromyalgia M79.7 ; Interstitial cystitis N30.10 ; Intractable migraine without aura and without status migrainosus G43.019 ; Low vitamin D level E55.9 and Ringing in right ear H93.11 [address] [place] [id number] [place] [address] May, [facility] [id number] [place] [address] May, Low vitamin D level E55.9 [facility] [address] [address] Apr, [facility] [address] [address] Mar, [address] [place] [address] Mar, Acute suppurative otitis media of right ear without spontaneous rupture of tympanic membrane, recurrence not specified H66.001 ; Encounter for immunization Z23 ; Asthma with acute exacerbation, unspecified asthma severity J45.901 ; Memory problem R41.3 ; Acute pain of right knee M25.561 ; Chronic fatigue R53.82 and Excessive urinary volume R35.8 [address] [address] [address] Feb, [place] [address] [address] Feb, [address] [address] [address] Jan, [address] [address] [address] Nov, Esophageal reflux 530.81 ; Anxiety 300.00 and Tingling in extremities 782.0 [address] [address] [address] Oct, [address] [address] [address] Oct, [place] [address] [place] [address] Oct, [facility] [id number], [place] [address] Oct, [facility] [id number] [place] [address] Oct, [facility] [id number] [place] [address] Sep, Other chronic allergic conjunctivitis 372.14 ; Irritable bowel syndrome 564.1 ; 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 [id number] [place] [address] [id number] July, Dental examination V72.2 [facility] [address], [place] [address] Jun, [facility] [id number] [place] [address] Jun, [facility] [id number] [place] [address] May, [facility] [id number] [place] [address] May, [facility] [address], [place] [address] May, [facility] [id number] [place] [address] 16 May, 2014 [facility] [place] [facility] [address] [id number] [place] [address] May, [facility] [place] [facility] [address] [id number] [place] [address] May, [facility] [place] [facility] [address] [id number] [place] [address] May, [facility] [place] [facility] [address] [id number] [place] [address] May, [facility] [place] [facility] [address] [id number] [place] [address] May, [facility] [place] [facility] [address] [facility] [id number] [place] [address] Apr, 2014 [facility] [place] [facility] [address] [id number] [place] [address] Apr, 2014 [facility] [place] [facility] [address] [id number] [place] [address] Apr, [facility] [place] [facility] [address] [id number] [place] [address] Apr, [facility] [place] [facility] [address] [facility] [id number] [place] [address] Apr, [facility] [place] [facility] [address] [id number] [place] [address] Apr, [facility] [place] [facility] [address] [id number] [place] [address] Mar, [facility] [place] [facility] [address] [id number] [place] [address] Mar, [facility] [place] [facility] [address] [id number] [place] [address] Mar, [facility] [place] [facility] [address] [id number] [place] [address] Mar, [facility] [place] [facility] [address] [id number] [place] [address] Mar, [facility] [place] [facility] [address] [id number] [place] [address] Mar, [facility] [place] [facility] [address] [id number] [place] [address] Mar, [facility] [place] [facility] [address] [id number] [place] [address] Mar, [facility] [place] [facility] [address] [id number] [place] [address] Mar, [facility] [place] [facility] [address] [id number] [place] [address] Mar, [facility] [place] [facility] [address] [id number] [place] [address] Mar, [facility] [place] [facility] [address] [id number] [place] [address] Mar, [facility] [place] [facility] [address] [id number] [place] [address] Mar, [facility] [place] [facility] [address] [id number] [place] [address] Mar, [facility] [place] [facility] [address] [id number] [address] Mar, [facility] [place] [facility] [address] [id number] [address] Mar, [facility] [place] [facility] [address] [id number] [place] [address] Mar, [facility] [place] [facility] [address] [id number] [place] [address] Mar, [facility] [place] [facility] [address] [id number] [place] [address] Mar, [facility] [place] [facility] [address] [id number] [place] [address] 18 Feb, 2014 [facility] [place] [facility] [address] [id number] [place] [address] 18 Feb, 2014 [facility] [place] [facility] [address] [id number] [place] [address] 11 Feb, 2014 [facility] [place] [facility] [address] [id number] [place] [address] 11 Feb, 2014 [facility] [place] [facility] [address] [id number] [place] [address] 20 Jan, 2014 [facility] [place] [facility] [address] [id number] [place] [address] 20 Jan, 2014 [facility] [place] [facility] [address] [id number] [place] [address] 14 Jan, 2014 [facility] [place] [facility] [address] [id number] [place] [address] 14 Jan, 2014 [facility] [place] [facility] [address] [id number] [place] [address] 14 Jan, 2014 [facility] [place] [facility] [address] [id number] [place] [address] 14 Jan, 2014 [facility] [place] [facility] [address] [facility] [id number] [place] [address] Jan, [facility] [place] [facility] [address] [id number] [place] [address] Jan, [facility] [place] [facility] [address] [id number] [place] [address] Dec, [facility] [place] [facility] [address] [id number] [place] [address] Dec, [facility] [place] [facility] [address] [id number] [place] [address] 17 Dec, 2013 [facility] [place] [facility] [address] [id number] [place] [address] Dec, [facility] [place] [facility] [address] [id number] [place] [address] Nov, 2013 [facility] [place] [facility] [address] [id number] [place] [address] Nov, 2013 [facility] [place] [facility] [address] [id number] [place] [address] 08 Nov, 2013 [facility] [place] [facility] [address] [id number] [place] [address] 08 Nov, 2013 [facility] [place] [facility] [address] [id number] [place] [address] 05 Nov, 2013 [facility] [place] [facility] [address] [id number] [place] [address] 05 Nov, 2013 [facility] [place] [facility] [address] [id number] [place] [address] Nov, 2013 [facility] [place] [facility] [address] [id number] [place] [address] 04 Nov, 2013 [facility] [place] [facility] [address] [id number] [place] [address] Nov, 2013 [facility] [place] [facility] [address] [id number] [place] [address] Nov, 2013 [facility] [place] [facility] [address] [id number] [place] [address] Oct, [facility] [place] [facility] [address] [id number] [address] Oct, [facility] [place] [facility] [address] [id number] [place] [address] Sep, [facility] [place] [facility] [address] [id number] [place] [address] 14 Sep, 2013 [facility] [place] [facility] [address] [id number] [place] [address] 13 Sep, 2013 [facility] [place] [facility] [address] [id number] [place] [address] Sep, [facility] [place] [facility] [address] [id number] [place] [address] Sep, [facility] [place] [facility] [address] [id number] [place] [address] Sep, [facility] [place] [facility] [address] [id number] [place] [address] Aug, [facility] [place] [facility] [address] [id number] [place] [address] Aug, [facility] [place] [facility] [address] [id number] [place] [address] Aug, [facility] [place] [facility] [address] [id number] [place] [address] Aug, [facility] [place] [facility] [address] [id number] [place] [address] Aug, [facility] [place] [facility] [address] [id number] [place] [address] Aug, [facility] [place] [facility] [address] [id number] [place] [address] July, [facility] [place] [facility] [address] [id number] [place] [address] July, [facility] [place] [facility] [address] [id number] [place] [address] July, [facility] [place] [facility] [address] [id number] [place] [address] July, [facility] [place] [facility] [address] [id number] [place] [address] July, [facility] [place] [facility] [address] [id number] [place] [address] July, [facility] [place] [facility] [address] [id number] [place] [address] Jun, [facility] [place] [facility] [address] [id number] [place] [address] Jun, [facility] [place] [facility] [address] [id number] [place] [address] Jun, [facility] [place] [facility] [address] [id number] [place] [address] Jun, [facility] [place] [facility] [address] [id number] [place] [address] May, [facility] [place] [facility] [address] [id number] [place] [address] May, [facility] [place] [facility] [address] [id number] [place] [address] Apr, [facility] [place] [facility] [address] [id number] [place] [address] Apr, [facility] [place] [facility] [address] [id number] [place] [address] Apr, [facility] [place] [facility] [address] [id number] [place] [address] Apr, [facility] [place] [facility] [address] [id number] [place] [address] Mar, [facility] [place] [facility] [address] [id number] [place] [address] Mar, [facility] [place] [facility] [address] [id number] [place] [address] Mar, [facility] [place] [facility] [address] [id number] [place] [address] Mar, [facility] [place] [facility] [address] [id number] [place] [address] Mar, [facility] [place] [facility] [address] [id number] [place] [address] Mar, [facility] [place] [facility] [address] [id number] [place] [address] Feb, [facility] [place] [facility] [address] [id number] [place] [address] Feb, [facility] [place] [facility] [address] [id number] [place] [address] Jan, [facility] [place] [facility] [address] [id number] [place] [address] Jan, [facility] [place] [facility] [address] [id number] [place] [address] Jan, [facility] [place] [facility] [address] [id number] [place] [address] Jan, [facility] [place] [facility] [address] [id number] [place] [address] Nov, [facility] [place] [facility] [address] [id number] [place] [address] Nov, [facility] [place] [facility] [address] [id number] [place] [address] Oct, [facility] [place] [facility] [address] [id number] [place] [address] Oct, [facility] [place] [facility] [address] [id number] [place] [address] Sep, [facility] [place] [facility] [address] [id number], [place] [address] Sep, [facility] [place] [facility] [address] [id number], [place] [address] Sep, [facility] [place] [facility] [address] [id number] [place] [address] Aug, [facility] [place] [facility] [address] [id number] [place] [address] Aug, [facility] [place] [facility] [address] [id number] [place] [address] Aug, [facility] [place] [facility] [address] [id number] [place] [address] Aug, [facility] [address] [id number] [place] [address] July, [facility] [address] [id number] [place] [address] July, [facility] [address] [id number] [place] [address] July, [facility] [address] [id number] [place] [address] July, [facility] [address] [id number] [place] [address] Jun, [facility] [address] [id number] [place] [address] Jun, [facility] [address] [id number] [place] [address] Jun, [facility] [address] [id number] [place] [address] May, [facility] [address] [id number] [place] [address] May, [facility] [address] [id number] [place] [address] Apr, [facility] [address] [id number] [place] [address] Apr, [facility] [address] [id number] [place] [address] Apr, [facility] [address] [id number] [place] [address] Apr, [facility] [address] [id number] [place] [address] Mar, [facility] [address] [id number] [place] [address] Mar, [facility] [place] [facility] [address] [id number] [place] [address] Mar, [facility] [place] [facility] [address] [id number] [place] [address] Mar, [facility] [place] [facility] [address] [id number] [place] [address] Feb, [facility] [place] [facility] [address] [id number] [place] [address] Feb, [facility] [place] [facility] [address] [id number] [place] [address] Feb, [facility] [place] [facility] [address] [id number] [place] [address] Feb, [facility] [place] [facility] [address] [id number] [place] [address] Feb, [facility] [place] [facility] [address] [id number] [place] [address] Feb, [facility] [place] [facility] [address] [id number] [place] [address] Feb, [facility] [place] [facility] [address] [id number] [place] [address] Feb, [facility] [place] [facility] [address] [id number] [place] [address] Jan, [facility] [place] [facility] [address] [id number], [place] [address] 28 Jan, 2012 [facility] [place] [facility] [address] [id number] [place] [address] 15 Jan, 2012 [facility] [place] [facility] [address] [id number] [place] [address] 15 Jan, 2012 [facility] [place] [facility] [address] [id number] [place] [address] 14 Jan, 2012 [facility] [place] [facility] [address] [id number] [place] [address] 13 Jan, 2012 [facility] [place] [facility] [address] [id number] [place] [address] 13 Jan, 2012 [facility] [place] [facility] [address] [id number] [place] [address] Jan, [facility] [place] [facility] [address] [id number] [place] [address] Jan, [facility] [place] [facility] [address] [id number] [place] [address] Jan, [facility] [place] [facility] [address] [id number] [place] [address] Jan, [facility] [place] [facility] [address] [id number] [place] [address] Dec, [facility] [place] [facility] [address] [id number] [place] [address] 31 Dec, 2011 [facility] [place] [facility] [address] [id number] [place] [address] 29 Dec, 2011 [facility] [place] [facility] [address] [id number] [place] [address] 29 Dec, 2011 [facility] [place] [facility] [address] [facility] [id number] [place] [address] 29 Dec, 2011 [facility] [place] [facility] [address] [id number] [place] [address] 29 Dec, 2011 [facility] [place] [facility] [address] [id number], [place] [address] Dec, [facility] [place] [facility] [address] [id number] [place] [address] 19 Dec, 2011 [facility] [place] [facility] [address] [facility] [id number] [place] [address] 15 Dec, 2011 [facility] [place] [facility] [address] [id number], [place] [address] 15 Dec, 2011 [facility] [place] [facility] [address] [id number] [place] [address] Dec, [facility] [place] [facility] [address] [id number] [place] [address] Dec, [facility] [place] [facility] [address] [id number] [place] [address] Nov, [facility] [place] [facility] [address] [id number] [place] [address] Oct, [facility] [place] [facility] [address] [id number] [place] [address] Oct, [facility] [place] [facility] [address] [id number] [place] [address] Oct, [facility] [place] [facility] [address] [id number] [place] [address] Oct, [facility] [place] [facility] [address] [id number] [place] [address] Sep, [facility] [place] [facility] [address] [id number] [place] [address] Sep, [facility] [place] [facility] [address] [id number] [place] [address] Sep, [facility] [place] [facility] [address] [id number] [place] [address] Sep, [facility] [place] [facility] [address] [id number] [place] [address] Aug, [facility] [place] [facility] [address] [id number] [place] [address] Aug, [facility] [place] [facility] [address] [id number] [place] [address] Aug, [facility] [place] [facility] [address] [id number] [place] [address] Aug, [facility] [place] [facility] [address] [id number], [place] [address] Aug, [facility] [address] [facility] [id number] [place] [address] July, [facility] [address] [facility] [id number], [place] [address] July, [facility] [address] [facility] [id number], [place] [address] July, [facility] [address] [facility] [id number], [place] [address] Dec, IMMUNIZATIONS No Known Immunizations SOCIAL HISTORY Never Assessed REASON FOR VISIT EMR-[facility] PLAN OF CARE VITAL SIGNS MEDICATIONS Unknown [...]
--- OUTSIDE RECORDS SUMMARY | 2018-10-24 12:09 | XMS REPORT ---
Author Author Migration, Doctor Organization [facility] Address Unknown Phone Unavailable Care Team Providers Care Order Department Supervisor Name Role Phone Migration, Doctor Unavailable Unavailable PROBLEMS Type Condition ICD9-CM Code YQT88-GL Code Onset Dates Condition Status SNOMED Code Problem Chronic periodontal disease K05.6 Active 2752116 Problem MRSA (methicillin resistant staph aureus) culture positive Z22.322 Active 087543773 Problem Major depressive disorder F32.9 Active 781765170 Problem Interstitial cystitis N30.10 Active 945857588 Problem Generalized anxiety disorder F41.1 Active 008143832 Problem Epilepsy G40.909 Active 97270765 Problem Fibromyalgia M79.7 Active 04510797 Problem Irritable bowel syndrome without diarrhea K58.9 Active 05667951 Problem Tinnitus of both ears H93.13 Active 0530049034877 Problem Menopausal symptoms N95.1 Active 63145025 Problem Lumbago M54.5 Active 286909424 Problem COPD exacerbation J44.1 Active 175948076 Problem Esophageal reflux K21.9 Active 293953960 Problem Chronic obstructive pulmonary disease, unspecified COPD type J44.9 Active 25660836 Problem On antiepileptic therapy Z79.899 Active 492565169 Problem Vitamin D deficiency E55.9 Active 93850312 Problem Irritable bowel syndrome with diarrhea K58.0 Active 778289630 ALLERGIES No Information ENCOUNTERS Encounter Location Date Diagnosis [facility] [id number] [address] Jun, [facility] [address] [facility] [id number] [address] Jun, Fibromyalgia M79.7 [facility] [id number] [address] May, Fibromyalgia M79.7 [facility] [id number] [address] Apr, [facility] [id number] [place] [address] Mar, Fibromyalgia M79.7 [facility] [address] [address] Feb, Fibromyalgia M79.7 [facility] [id number] [place] [address] Feb, Acute cystitis with hematuria N30.01 [facility] [address] [address] Feb, Acute cystitis with hematuria N30.01 ; COPD exacerbation J44.1 ; Interstitial cystitis N30.10 ; Nausea R11.0 and Rectal bleeding K62.5 [facility] [id number] [place] [address] Jan, Fibromyalgia M79.7 [facility] [id number] [place] [id number] Dec, [facility] [id number] [place] [id number] Dec, [facility] [address] [address] Dec, Fibromyalgia M79.7 [facility] [id number] [place] [address] Dec, [facility] [id number] [place] [address] Oct, [facility] [id number] [place] [id number] Oct, [facility] [id number] [place] [address] Oct, [facility] [id number] [place] [address] Sep, [facility] [id number] [place] [address] Sep, [facility] [address], [place] [address] Sep, [facility] [id number] [place] [id number] Aug, Dental examination Z01.20 [facility] [id number] [place] [address] Aug, Abscess of axilla, left L02.412 [facility] [id number] [place] [address] Aug, Esophageal reflux K21.9 [facility] [id number] [place] [address] Aug, [facility] [id number] [place] [address] Aug, Esophageal reflux K21.9 ; Fluid level behind tympanic membrane of right ear H65.91 ; Fibromyalgia M79.7 and Lumbago M54.5 [facility] [id number] [place] [address] Aug, Esophageal reflux K21.9 [facility] [id number] [place] [address] July, [facility] [id number] [place] [address] July, [facility] [id number] [place] [address] July, Chronic obstructive pulmonary disease, unspecified COPD type J44.9 [facility] [id number] [address] July, [facility] [id number] [place] [address] July, [facility] [id number] [place] [address] July, Interstitial cystitis N30.10 ; Fibromyalgia M79.7 [...] Dysuria R30.0 and Generalized anxiety disorder F41.1 [address] [place] [address] [address] Jun, [address] [place] [address] [address] Jun, Chronic obstructive pulmonary disease, unspecified COPD type J44.9 ; COPD exacerbation J44.1 and Sore throat J02.[address] [address] Jun, Fibromyalgia M79.7 [address] [address] [address] Jun, Fibromyalgia M79.7 [address] [address] [address] May, [address] [place] [address] [address] May, [address] [address] [address] May, Fibromyalgia M79.7 [place] [address] [address] Mar, [place] [address] [address] Mar, Epilepsy G40.909 ; Lumbago M54.5 ; Esophageal reflux K21.9 ; Fibromyalgia M79.7 ; Chronic obstructive pulmonary disease, unspecified COPD type J44.9 ; Vitamin D deficiency E55.9 ; Fluid level behind tympanic membrane of right ear H65.91 ; Irritable bowel syndrome with diarrhea K58.0 ; Hematochezia K92.1 and Generalized anxiety disorder F41.1 [facility] [id number] [place] [address] Mar, [facility] [id number] [place] [address] Mar, [facility] [id number] [place] [address] Mar, Vitamin D deficiency E55.9 [facility] [id number] [place] [address] Feb, [facility] [id number] [place] [address] Feb, [facility] [id number] [place] [address] Jan, Fibromyalgia M79.7 [facility] [id number] [place] [address] Jan, [facility] [id number] [place] [address] Jan, [facility] [id number] [place] [address] Jan, Vitamin D deficiency E55.9 [facility] [id number] [place] [address] Dec, [facility] [id number] [place] [address] Dec, [facility] [id number] [place] [address] Dec, Generalized anxiety disorder F41.1 [facility] [id number] [place] [address] Dec, Dysuria R30.0 ; Acute bilateral low back pain without sciatica M54.5 and Encounter for immunization Z23 [facility] [address], [place] [address] Oct, [facility] [id number] [place] [address] Oct, Fibromyalgia M79.7 [facility] [id number] [place] [address] Sep, Dysuria R30.0 and Acute bronchitis, unspecified organism J20.9 [facility] [id number] [place] [address] Sep, [facility] [id number] [place] [address] Sep, Rectal prolapse K62.3 [facility] [id number] [place] [address] Sep, Chronic obstructive pulmonary disease, unspecified COPD type J44.9 [facility] [id number] [place] [address] [id number] Aug, [facility] [id number] [place] [id number] Aug, [facility] [id number] [place] [address] Aug, Light headedness R42 ; On antiepileptic therapy Z79.899 ; Vitamin D deficiency E55.9 ; Screening for lipid disorders Z13.220 ; Dysuria R30.0 and Hemorrhoids, unspecified hemorrhoid type K64.9 [facility] [address], [place] [address] Aug, Internal prolapsed hemorrhoids K64.8 [facility] [id number] [place] [address] July, [facility] [id number] [place] [address] May, [facility] [id number] [place] [address] May, Fever and chills R50.9 and Influenza B J10.1 [address] [place] [address] [address] Apr, [place] [address] [address] Apr, Fibromyalgia M79.7 and Generalized anxiety disorder F41.[address] [address] Mar, Esophageal reflux K21.9 ; Generalized anxiety disorder F41.1 and Epilepsy G40.[address] [address] Mar, Epilepsy G40.909 ; Esophageal reflux K21.9 ; Fibromyalgia M79.7 ; Generalized anxiety disorder F41.1 ; Pain of left foot M79.672 ; Pain in right foot M79.671 ; Ear pain, right H92.01 ; Tinnitus of both ears H93.13 ; Chronic obstructive pulmonary disease, unspecified COPD type J44.9 ; Vitamin D deficiency E55.9 ; Screening for lipid disorders Z13.220 and On antiepileptic therapy Z79.899 [address] [place] [address] Feb, [address] [address] Feb, [facility] [address] [address] Feb, Dysuria R30.0 and Plantar fasciitis of right foot M72.[address] [address] Feb, [facility] [address] [address] Feb, [address] [place] [address] [address] Jan, [facility] [address], [place] [address] Jan, [facility] [id number] [place] [address] Dec, [facility] [id number] [place] [address] Dec, [facility] [id number] [place] [address] Dec, [facility] [id number] [place] [address] Nov, [facility] [id number] [place] [address] Sep, [facility] [id number] [place] [address] Aug, Shortness of breath R06.02 and Acute suppurative otitis media of right ear without spontaneous rupture of tympanic membrane, recurrence not specified H66.001 [facility] [id number] [place] [address] 14 Aug, 2015 Internal prolapsed hemorrhoids K64.8 [place] [id number] [place] [address] 06 Jun, 2015 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 [facility] [id number] [place] [address] May, Fibromyalgia M79.7 ; Interstitial cystitis N30.10 ; Intractable migraine without aura and without status migrainosus G43.019 ; Low vitamin D level E55.9 and Ringing in right ear H93.11 [facility] [id number] [place] [address] May, [facility] [id number] [place] [address] May, Low vitamin D level E55.9 [facility] [id number] [place] [address] Apr, [facility] [address] [address] Mar, [facility] [address] [address] Mar, Acute suppurative otitis media of right ear without spontaneous rupture of tympanic membrane, recurrence not specified H66.001 ; Encounter for immunization Z23 ; Asthma with acute exacerbation, unspecified asthma severity J45.901 ; Memory problem R41.3 ; Acute pain of right knee M25.561 ; Chronic fatigue R53.82 and Excessive urinary volume R35.8 [facility] [address] [address] Feb, [facility] [address] [address] Feb, [facility] [address] [address] Jan, [facility] [address] [address] Nov, Esophageal reflux 530.81 ; Anxiety 300.00 and Tingling in extremities 782.0 [facility] [address] [address] Oct, [facility] [address] [address] Oct, [facility] [address] [address] Oct, [facility] [address] [address] Oct, [facility] [address] [address] Oct, [facility] [address] [address] Sep, Other chronic allergic conjunctivitis 372.14 ; Irritable bowel syndrome 564.1 ; 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 ; Fibromyalgia 729.1 ; Extremity pain 729.5 and Neck pain 723.1 [facility] [address], [place] [address] Sep, [facility] [id number] [place] [address] Aug, [facility] [id number] [place] [address] Aug, [facility] [id number] [place] [address] July, Vomiting 787.03 [facility] [id number] [place] [id number] July, Dental examination V72.2 [facility] [id number] [place] [address] Jun, [facility] [id number] [place] [address] Jun, [facility] [id number] [place] [address] May, [facility] [id number] [place] [address] May, [facility] [id number] [place] [address] May, [facility] [id number] [place] [address] May, [facility] [id number] [place] [address] May, [facility] [id number] [address] May, [facility] [address] [place] [address] May, [facility] [place] [facility] [address] [id number] [place] [address] May, [facility] [place] [facility] [address] [id number] [place] [address] May, [facility] [place] [facility] [address] [id number] [place] [address] Apr, 2014 [facility] [place] [facility] [address] [id number] [place] [address] Apr, 2014 [facility] [place] [facility] [address] [id number] [place] [address] Apr, 2014 [facility] [place] [facility] [address] [facility] [id number] [place] [address] Apr, [facility] [place] [facility] [address] [facility] [id number] [place] [address] Apr, [facility] [place] [facility] [address] [id number] [place] [address] Apr, [facility] [place] [facility] [address] [facility] [id number] [place] [address] Mar, [facility] [place] [facility] [address] [facility] [id number] [place] [address] Mar, [facility] [place] [facility] [address] [id number] [place] [address] Mar, [facility] [place] [facility] [address] [id number] [place] [address] Mar, [facility] [place] [facility] [address] [id number] [place] [address] Mar, [facility] [place] [facility] [address] [facility] [id number] [place] [address] Mar, [facility] [place] [facility] [address] [facility] [id number] [place] [address] Mar, [facility] [address] [id number] [place] [address] Mar, [facility] [place] [facility] [address] [id number] [place] [address] Mar, [facility] [place] [facility] [address] [id number] [place] [address] Mar, [facility] [place] [facility] [address] [id number] [place] [address] Mar, [facility] [place] [facility] [address] [id number] [place] [address] Mar, [facility] [place] [facility] [address] [id number] [place] [address] Mar, [facility] [place] [facility] [address] [id number] [place] [address] Mar, [facility] [place] [facility] [address] [id number] [place] [address] Mar, [facility] [place] [facility] [address] [id number] [place] [address] Mar, [facility] [place] [facility] [address] [id number] [place] [address] Mar, [facility] [place] [facility] [address] [id number] [place] [address] Mar, [facility] [place] [facility] [address] [id number] [address] Mar, [facility] [place] [facility] [address] [id number] [place] [address] Feb, [facility] [place] [facility] [address] [id number] [place] [address] Feb, [facility] [place] [facility] [address] [id number] [place] [address] Feb, [facility] [place] [facility] [address] [id number] [place] [address] Feb, [facility] [place] [facility] [address] [id number] [place] [address] 20 Jan, 2014 [facility] [place] [facility] [address] [id number] [place] [address] 20 Jan, 2014 [facility] [place] [facility] [address] [id number] [place] [address] Jan, [facility] [place] [facility] [address] [id number] [place] [address] 14 Jan, 2014 [facility] [place] [facility] [address] [id number] [place] [address] Jan, [facility] [place] [facility] [address] [id number] [place] [address] Jan, [facility] [place] [facility] [address] [id number] [place] [address] Jan, [facility] [place] [facility] [address] [id number] [place] [address] Jan, [facility] [place] [facility] [address] [id number] [place] [address] Dec, [facility] [place] [facility] [address] [id number] [place] [address] Dec, [facility] [place] [facility] [address] [id number] [place] [address] 17 Dec, 2013 [facility] [place] [facility] [address] [id number] [place] [address] 17 Dec, 2013 [facility] [place] [facility] [address] [id number] [place] [address] 22 Nov, 2013 [facility] [place] [facility] [address] [id number] [place] [address] 22 Nov, 2013 [facility] [place] [facility] [address] [id number] [place] [address] 08 Nov, 2013 [facility] [place] [facility] [address] [id number] [place] [address] 08 Nov, 2013 [facility] [place] [facility] [address] [id number] [place] [address] 05 Nov, 2013 [facility] [place] [facility] [address] [id number] [place] [address] 05 Nov, 2013 [facility] [place] [facility] [address] [id number] [place] [address] 04 Nov, 2013 [facility] [place] [facility] [address] [id number] [place] [address] 04 Nov, 2013 [facility] [place] [facility] [address] [id number] [place] [address] Nov, 2013 [facility] [place] [facility] [address] [id number] [place] [address] Nov, 2013 [facility] [place] [facility] [address] [id number] [place] [address] Oct, [facility] [place] [facility] [address] [id number] [place] [address] Oct, [facility] [place] [facility] [address] [id number] [place] [address] Sep, [facility] [place] [facility] [address] [id number] [place] [address] Sep, [facility] [place] [facility] [address] [id number] [place] [address] Sep, [facility] [place] [facility] [address] [id number] [place] [address] Sep, [facility] [place] [facility] [address] [id number] [place] [address] Sep, [facility] [place] [facility] [address] [id number] [place] [address] Sep, [facility] [place] [facility] [address] [id number] [place] [address] Aug, [facility] [place] [facility] [address] [id number] [place] [address] Aug, [facility] [place] [facility] [address] [id number] [place] [address] Aug, [facility] [place] [facility] [address] [id number] [place] [address] Aug, [facility] [place] [facility] [address] [id number] [place] [address] Aug, [facility] [place] [facility] [address] [id number] [place] [address] Aug, [facility] [place] [facility] [address] [id number] [place] [address] July, [facility] [place] [facility] [address] [id number] [place] [address] July, [facility] [place] [facility] [address] [id number] [place] [address] July, [facility] [place] [facility] [address] [id number] [place] [address] July, [facility] [place] [facility] [address] [id number] [place] [address] July, [facility] [place] [facility] [address] [id number] [place] [address] July, [facility] [place] [facility] [address] [id number], [place] [address] Jun, [facility] [place] [facility] [address] [id number] [place] [address] Jun, [facility] [place] [facility] [address] [id number] [place] [address] Jun, [facility] [place] [facility] [address] [id number] [place] [address] Jun, [facility] [place] [facility] [address] [id number] [place] [address] May, [facility] [place] [facility] [address] [id number] [place] [address] May, [facility] [place] [facility] [address] [id number] [place] [address] Apr, [facility] [place] [facility] [address] [id number] [place] [address] Apr, [facility] [place] [facility] [address] [id number] [place] [address] Apr, [facility] [place] [facility] [address] [id number] [place] [address] Apr, [facility] [place] [facility] [address] [id number] [place] [address] Mar, [facility] [place] [facility] [address] [id number] [place] [address] Mar, [facility] [place] [facility] [address] [id number] [place] [address] Mar, [facility] [place] [facility] [address] [id number] [place] [address] Mar, [facility] [place] [facility] [address] [id number] [place] [address] Mar, [facility] [place] [facility] [address] [id number] [place] [address] Mar, [facility] [facility] [address] [id number] [place] [address] Feb, [facility] [place] [facility] [address] [id number] [place] [address] Feb, [facility] [place] [facility] [address] [id number] [place] [address] Jan, [facility] [place] [facility] [address] [id number] [place] [address] Jan, [facility] [address] [id number] [place] [address] Jan, [facility] [place] [facility] [address] [id number] [place] [address] Jan, [facility] [place] [facility] [address] [id number] [place] [address] Nov, [facility] [place] [facility] [address] [id number] [place] [address] Nov, [facility] [place] [facility] [address] [id number] [place] [address] Oct, [facility] [place] [facility] [address] [id number] [place] [address] Oct, [facility] [place] [facility] [address] [id number] [place] [address] Sep, [facility] [place] [facility] [address] [id number] [place] [address] Sep, [facility] [place] [facility] [address] [id number] [place] [address] Sep, [facility] [place] [facility] [address] [id number] [place] [address] Aug, [facility] [place] [facility] [address] [id number] [place] [address] Aug, [facility] [place] [facility] [address] [id number], [place] [address] Aug, [facility] [place] [facility] [address] [id number] [place] [address] Aug, [facility] [place] [facility] [address] [id number] [place] [address] July, [facility] [facility] [address] [id number] [place] [address] July, [facility] [facility] [address] [id number] [place] [address] July, [facility] [address] [id number] [place] [address] July, [facility] [address] [id number] [place] [address] Jun, [facility] [address] [id number] [place] [address] Jun, [facility] [address] [id number] [place] [address] Jun, [facility] [address] [id number] [place] [address] May, [facility] [address] [id number] [place] [address] May, [facility] [address] [id number] [place] [address] Apr, [facility] [address] [id number] [place] [address] Apr, [facility] [address] [id number] [place] [address] Apr, [facility] [address] [id number] [place] [address] Apr, [facility] [address] [id number] [place] [address] Mar, [facility] [facility] [address] [id number] [place] [address] Mar, [facility] [facility] [address] [id number] [place] [address] Mar, [facility] [facility] [address] [id number] [place] [address] Mar, [facility] [address] [id number] [place] [address] Feb, [facility] [address] [id number] [place] [address] 10 Feb, 2012 [facility] [address] [id number] [place] [address] 10 Feb, 2012 [facility] [address] [id number] [place] [address] Feb, [facility] [address] [id number] [place] [address] Feb, [facility] [address] [id number] [place] [address] 06 Feb, 2012 [facility] [address] [id number] [place] [address] 04 Feb, 2012 [facility] [address] [id number] [place] [address] 04 Feb, 2012 [facility] [address] [id number] [place] [address] 28 Jan, 2012 [facility] [address] [id number] [place] [address] 28 Jan, 2012 [facility] [address] [id number] [place] [address] 15 Jan, 2012 [facility] [address] [id number] [place] [address] 15 Jan, 2012 [facility] [address] [id number] [place] [address] 14 Jan, 2012 [facility] [address] [id number] [place] [address] 13 Jan, 2012 [facility] [address] [id number] [place] [address] 13 Jan, 2012 [facility] [address] [id number] [place] [address] 12 Jan, 2012 [facility] [address] [id number], [place] [address] Jan, [facility] [address] [id number] [place] [address] Jan, [facility] [address] [id number], [place] [address] Jan, [facility] [address] [facility] [id number] [place] [address] Dec, [facility] [address] [id number] [place] [address] Dec, [facility] [address] [id number] [place] [address] Dec, [facility] [address] [id number] [place] [address] Dec, [facility] [address] [id number], [place] [address] Dec, [facility] [address] [id number] [place] [address] Dec, [facility] [address] [id number], [place] [address] Dec, [facility] [address] [facility] [id number], [place] [address] Dec, [facility] [address] [id number], [place] [address] Dec, [facility] [address] [facility] [id number], [place] [address] Dec, [facility] [address] [id number], [place] [address] Dec, [facility] [address] [facility] [id number], [place] [address] Dec, [facility] [address] [facility] [id number], [place] [address] 24 Nov, 2011 [facility] [address] [id number] [place] [address] Oct, [facility] [address] [id number] [place] [address] Oct, [facility] [address] [id number] [place] [address] Oct, [facility] [address] [id number] [place] [address] Oct, [facility] [address] [id number] [place] [address] Sep, [facility] [address] [id number] [place] [address] Sep, [facility] [address] [id number] [place] [address] Sep, [facility] [address] [id number] [place] [address] Sep, [facility] [address] [id number] [place] [address] Aug, [facility] [address] [id number] [place] [address] Aug, [facility] [address] [id number] [place] [address] Aug, [facility] [address] [id number] [place] [address] Aug, [facility] [address] [id number] [place] [address] Aug, [facility] [address] [id number] [place] [address] July, [facility] [address] [id number] [place] [address] July, [facility] [facility] [address] [id number] [place] [address] July, [facility] [address] [facility] [id number] [place] [address] Dec, IMMUNIZATIONS No Known Immunizations SOCIAL HISTORY Never Assessed REASON FOR VISIT [facility] [place] VITAL SIGNS MEDICATIONS Unknown [...]
--- OUTSIDE RECORDS SUMMARY | 2018-10-24 12:09 | XMS REPORT ---
Author Author Migration, Doctor Organization [facility] Address Unknown Phone Unavailable Care Team Providers Care Resin Remover Name Role Phone Migration, Doctor Unavailable Unavailable PROBLEMS Type Condition ICD9-CM Code TNJ14-GW Code Onset Dates Condition Status SNOMED Code Problem MRSA (methicillin resistant staph aureus) culture positive Z22.322 Active 228239258 Problem Interstitial cystitis N30.10 Active 866803246 Problem Chronic periodontal disease K05.6 Active 6239622 Problem Epilepsy G40.909 Active 87035483 Problem Major depressive disorder F32.9 Active 348906339 Problem Esophageal reflux K21.9 Active 892804904 Problem Generalized anxiety disorder F41.1 Active 432042862 Problem Irritable bowel syndrome without diarrhea K58.9 Active 72867497 Problem Tinnitus of both ears H93.13 Active 8279222284142 Problem Chronic obstructive pulmonary disease, unspecified COPD type J44.9 Active 75074917 Problem COPD exacerbation J44.1 Active 587524127 Problem Fibromyalgia M79.7 Active 60254608 Problem Paresthesia of skin R20.2 Active 29637215 Problem Lumbago M54.5 Active 261116821 Problem On antiepileptic therapy Z79.899 Active 110361760 Problem Vitamin D deficiency E55.9 Active 53438576 Problem Irritable bowel syndrome with diarrhea K58.0 Active 428282223 Problem Menopausal symptoms N95.1 Active 87998662 ALLERGIES No Information ENCOUNTERS Encounter Location Date Diagnosis [facility] [id number] [address] Jun, Dysuria R30.0 ; Major depressive disorder F32.9 ; Interstitial cystitis N30.10 ; Vitamin D deficiency E55.9 ; Hematochezia K92.1 ; Paresthesia of skin R20.2 and Weight loss R63.4 [facility] [id number] [address] Jun, Fibromyalgia M79.7 [place] [id number] [place] [address] May, Fibromyalgia M79.7 [facility] [address] [address] Apr, [facility] [id number] [place] [address] Mar, Fibromyalgia M79.7 [facility] [address] [address] Feb, Fibromyalgia M79.7 [facility] [id number] [place] [address] Feb, Acute cystitis with hematuria N30.01 [facility] [id number] [place] [address] Feb, Acute cystitis with hematuria N30.01 ; COPD exacerbation J44.1 ; Interstitial cystitis N30.10 ; Nausea R11.0 and Rectal bleeding K62.5 [facility] [id number] [place] [address] Jan, Fibromyalgia M79.7 [facility] [id number] [place] [phone] Dec, [facility] [id number] [place] [address] [phone] Dec, [facility] [id number] [place] [address] Dec, Fibromyalgia M79.7 [facility] [id number] [place] [address] Dec, [facility] [address] [address] Oct, [facility] [id number] [place] [id number] Oct, [facility] [id number] [place] [address] Oct, [facility] [id number] [place] [address] Sep, [facility] [id number] [place] [address] Sep, [facility] [id number] [place] [address] Sep, [facility] [id number] [place] [id number] Aug, Dental examination Z01.20 [facility] [id number] [place] [address] Aug, Abscess of axilla, left L02.412 [facility] [id number] [place] [address] Aug, Esophageal reflux K21.9 [facility] [id number] [place] [address] Aug, [facility] [id number] [place] [address] Aug, Esophageal reflux K21.9 ; Fluid level behind tympanic membrane of right ear H65.91 ; Fibromyalgia M79.7 and Lumbago M54.5 [facility] [id number] [place] [address] Aug, Esophageal reflux K21.9 [facility] [id number] [place] [address] July, [facility] [id number] [place] [address] July, [facility] [id number] [place] [address] July, Chronic obstructive pulmonary disease, unspecified COPD type J44.9 [facility] [id number] [place] [address] July, [facility] [id number] [place] [address] July, [place] [address] [address] July, Interstitial cystitis N30.10 ; Fibromyalgia M79.7 [...] Dysuria R30.0 and Generalized anxiety disorder F41.1 [place] [id number] [place] [address] Jun, [place] [address] [address] Jun, Chronic obstructive pulmonary disease, unspecified COPD type J44.9 ; COPD exacerbation J44.1 and Sore throat J02.9 [place] [address] [address] Jun, Fibromyalgia M79.7 [place] [id number] [place] [address] Jun, Fibromyalgia M79.7 [place] [id number] [place] [address] May, [place] [id number] [place] [address] May, [place] [address] [address] May, Fibromyalgia M79.7 [place] [id number] [place] [address] Mar, [place] [address] [address] Mar, Epilepsy G40.909 ; Lumbago M54.5 ; Esophageal reflux K21.9 ; Fibromyalgia M79.7 ; Chronic obstructive pulmonary disease, unspecified COPD type J44.9 ; Vitamin D deficiency E55.9 ; Fluid level behind tympanic membrane of right ear H65.91 ; Irritable bowel syndrome with diarrhea K58.0 ; Hematochezia K92.1 and Generalized anxiety disorder F41.1 [facility] [address] [address] Mar, [facility] [id number] [place] [address] Mar, [facility] [address] [address] Mar, Vitamin D deficiency E55.9 [facility] [id number] [place] [address] Feb, [facility] [id number] [place] [address] Feb, [facility] [id number] [place] [address] Jan, Fibromyalgia M79.7 [facility] [id number] [place] [address] Jan, [facility] [id number] [place] [address] Jan, [facility] [id number] [place] [address] Jan, Vitamin D deficiency E55.9 [facility] [id number] [place] [address] Dec, [facility] [id number] [place] [address] Dec, [facility] [id number] [place] [address] Dec, Generalized anxiety disorder F41.1 [place] [id number] [place] [address] Dec, Dysuria R30.0 ; Acute bilateral low back pain without sciatica M54.5 and Encounter for immunization Z23 [place] [id number] [place] [address] Oct, [place] [address] [address] Oct, Fibromyalgia M79.7 [place] [address] [address] Sep, Dysuria R30.0 and Acute bronchitis, unspecified organism J20.9 [place] [id number] [place] [address] Sep, [place] [address] [address] Sep, Rectal prolapse K62.3 [place] [address] [address] Sep, Chronic obstructive pulmonary disease, unspecified COPD type J44.9 [place] [address] [id number] Aug, [place] [address] [id number] Aug, [place] [id number] [place] [address] Aug, Light headedness R42 ; On antiepileptic therapy Z79.899 ; Vitamin D deficiency E55.9 ; Screening for lipid disorders Z13.220 ; Dysuria R30.0 and Hemorrhoids, unspecified hemorrhoid type K64.9 [place] [id number] [place] [address] Aug, Internal prolapsed hemorrhoids K64.8 [place] [address] [address] July, [place] [address] [address] May, [address] [address] May, Fever and chills R50.9 and Influenza B J10.[address] [address] Apr, [address] [address] Apr, Fibromyalgia M79.7 and Generalized anxiety disorder F41.[address] [address] Mar, Esophageal reflux K21.9 ; Generalized anxiety disorder F41.1 and Epilepsy G40.[address] [address] Mar, Epilepsy G40.909 ; Esophageal reflux K21.9 ; Fibromyalgia M79.7 ; Generalized anxiety disorder F41.1 ; Pain of left foot M79.672 ; Pain in right foot M79.671 ; Ear pain, right H92.01 ; Tinnitus of both ears H93.13 ; Chronic obstructive pulmonary disease, unspecified COPD type J44.9 ; Vitamin D deficiency E55.9 ; Screening for lipid disorders Z13.220 and On antiepileptic therapy Z79.899 [place] [id number] [place] [address] Feb, [address] [address] Feb, [facility] [place] [address] [address] Feb, Dysuria R30.0 and Plantar fasciitis of right foot M72.[address] [address] Feb, [facility] [id number] [place] [address] Feb, [facility] [id number] [place] [address] Jan, [facility] [id number] [place] [address] Jan, [facility] [id number] [place] [address] Dec, [facility] [id number] [place] [address] Dec, [facility] [id number] [place] [address] Dec, [facility] [id number] [place] [address] Nov, [facility] [id number] [place] [address] Sep, [facility] [id number] [place] [address] Aug, Shortness of breath R06.02 and Acute suppurative otitis media of right ear without spontaneous rupture of tympanic membrane, recurrence not specified H66.001 [place] [id number] [place] [address] Aug, Internal prolapsed hemorrhoids K64.8 [facility] [id number] [place] [address] Jun, 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 [place] [id number] [place] [address] May, Fibromyalgia M79.7 ; Interstitial cystitis N30.10 ; Intractable migraine without aura and without status migrainosus G43.019 ; Low vitamin D level E55.9 and Ringing in right ear H93.11 [place] [id number] [place] [address] May, [facility] [address] [address] May, Low vitamin D level E55.9 [facility] [id number] [place] [address] Apr, [facility] [address] [address] Mar, [facility] [id number] [place] [address] Mar, Acute suppurative otitis media of right ear without spontaneous rupture of tympanic membrane, recurrence not specified H66.001 ; Encounter for immunization Z23 ; Asthma with acute exacerbation, unspecified asthma severity J45.901 ; Memory problem R41.3 ; Acute pain of right knee M25.561 ; Chronic fatigue R53.82 and Excessive urinary volume R35.8 [facility] [id number] [place] [address] Feb, [facility] [address] [address] Feb, [facility] [id number] [place] [address] Jan, [facility] [address] [address] Nov, Esophageal reflux 530.81 ; Anxiety 300.00 and Tingling in extremities 782.0 [facility] [id number] [place] [address] Oct, [facility] [address] [address] Oct, [facility] [address] [address] Oct, [facility] [address] [place] [address] Oct, [facility] [id number] [place] [address] Oct, [facility] [id number] [place] [address] Sep, Other chronic allergic conjunctivitis 372.14 ; Irritable bowel syndrome 564.1 ; 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 ; Fibromyalgia 729.1 ; Extremity pain 729.5 and Neck pain 723.1 [facility] [id number] [place] [address] Sep, [facility] [id number] [place] [address] Aug, [facility] [id number] [place] [address] Aug, [facility] [id number] [place] [address] July, Vomiting 787.03 [facility] [id number] [place] [address] [id number] July, Dental examination V72.2 [facility] [id number] [place] [address] Jun, [facility] [address] [address] Jun, [facility] [id number] [address] May, [facility] [id number] [place] [address] May, [facility] [id number] [place] [address] May, [facility] [address] [address] May, [facility] [id number] [address] May, [facility] [place] [facility] [address] [id number] [place] [address] May, [facility] [place] [facility] [address] [id number] [place] [address] May, [facility] [place] [facility] [address] [id number] [place] [address] May, [facility] [place] [facility] [address] [id number] [place] [address] May, [facility] [place] [facility] [address] [id number] [place] [address] Apr, [facility] [place] [facility] [address] [facility] [id number] [place] [address] Apr, [facility] [place] [facility] [address] [id number] [place] [address] Apr, [facility] [place] [facility] [address] [id number] [place] [address] Apr, [facility] [place] [facility] [address] [facility] [id number] [place] [address] Apr, [facility] [place] [facility] [address] [facility] [id number] [place] [address] Apr, [facility] [place] [facility] [address] [id number] [place] [address] Mar, [facility] [place] [facility] [address] [id number] [place] [address] Mar, [facility] [place] [facility] [address] [id number] [place] [address] Mar, [facility] [place] [facility] [address] [id number] [place] [address] Mar, [facility] [place] [facility] [address] [id number] [place] [address] Mar, [facility] [place] [facility] [address] [id number] [place] [address] Mar, [facility] [place] [facility] [address] [id number] [place] [address] Mar, [facility] [place] [facility] [address] [id number] [place] [address] Mar, [facility] [place] [facility] [address] [id number] [place] [address] Mar, [facility] [place] [facility] [address] [id number] [place] [address] Mar, [facility] [place] [facility] [address] [id number] [place] [address] Mar, [facility] [place] [facility] [address] [id number] [place] [address] Mar, [facility] [place] [facility] [address] [id number] [place] [address] Mar, [facility] [place] [facility] [address] [id number] [place] [address] Mar, [facility] [place] [facility] [address] [id number] [place] [address] Mar, [facility] [place] [facility] [address] [id number] [address] Mar, [facility] [place] [facility] [address] [id number] [address] Mar, [facility] [place] [facility] [address] [id number] [place] [address] Mar, [facility] [place] [facility] [address] [id number] [address] Mar, [facility] [place] [facility] [address] [id number] [place] [address] Feb, [facility] [place] [facility] [address] [id number] [place] [address] 18 Feb, 2014 [facility] [place] [facility] [address] [id number] [place] [address] Feb, [facility] [place] [facility] [address] [id number] [place] [address] Feb, [facility] [place] [facility] [address] [id number] [place] [address] Jan, [facility] [place] [facility] [address] [id number] [place] [address] 20 Jan, 2014 [facility] [place] [facility] [address] [id number] [place] [address] Jan, [facility] [place] [facility] [address] [id number] [place] [address] Jan, [facility] [place] [facility] [address] [id number] [place] [address] Jan, [facility] [place] [facility] [address] [id number] [place] [address] 14 Jan, 2014 [facility] [place] [facility] [address] [id number] [place] [address] Jan, [facility] [place] [facility] [address] [facility] [id number] [place] [address] Jan, [facility] [place] [facility] [address] [id number] [place] [address] Dec, [facility] [place] [facility] [address] [id number] [place] [address] Dec, [facility] [place] [facility] [address] [id number] [place] [address] Dec, [facility] [place] [facility] [address] [id number] [place] [address] 17 Dec, 2013 [facility] [place] [facility] [address] [id number] [place] [address] Nov, [facility] [place] [facility] [address] [id number] [place] [address] Nov, 2013 [facility] [place] [facility] [address] [id number] [place] [address] 08 Nov, 2013 [facility] [place] [facility] [address] [id number] [place] [address] 08 Nov, 2013 [facility] [place] [facility] [address] [id number] [place] [address] 05 Nov, 2013 [facility] [place] [facility] [address] [id number] [place] [address] 05 Nov, 2013 [facility] [place] [facility] [address] [id number] [place] [address] 04 Nov, 2013 [facility] [place] [facility] [address] [id number] [place] [address] Nov, 2013 [facility] [place] [facility] [address] [id number] [place] [address] Nov, 2013 [facility] [place] [facility] [address] [id number] [place] [address] Nov, 2013 [facility] [place] [facility] [address] [id number] [place] [address] Oct, [facility] [place] [facility] [address] [id number] [place] [address] Oct, [facility] [place] [facility] [address] [id number] [place] [address] Sep, [facility] [place] [facility] [address] [id number] [place] [address] Sep, [facility] [place] [facility] [address] [id number] [place] [address] Sep, [facility] [place] [facility] [address] [id number] [place] [address] Sep, [facility] [place] [facility] [address] [id number] [place] [address] Sep, [facility] [place] [facility] [address] [id number] [place] [address] Sep, [facility] [place] [facility] [address] [id number] [place] [address] Aug, [facility] [place] [facility] [address] [id number] [place] [address] Aug, [facility] [place] [facility] [address] [id number] [place] [address] Aug, [facility] [place] [facility] [address] [id number] [place] [address] Aug, [facility] [place] [facility] [address] [id number] [place] [address] Aug, [facility] [place] [facility] [address] [id number] [place] [address] Aug, [facility] [place] [facility] [address] [id number] [place] [address] July, [facility] [place] [facility] [address] [id number] [place] [address] July, [facility] [place] [facility] [address] [id number] [place] [address] July, [facility] [place] [facility] [address] [id number] [place] [address] July, [facility] [place] [facility] [address] [id number] [place] [address] July, [facility] [place] [facility] [address] [id number] [place] [address] July, [facility] [place] [facility] [address] [id number] [place] [address] Jun, [facility] [place] [facility] [address] [id number] [place] [address] Jun, [facility] [place] [facility] [address] [id number] [place] [address] Jun, [facility] [place] [facility] [address] [id number] [place] [address] Jun, [facility] [place] [facility] [address] [id number] [place] [address] May, [facility] [place] [facility] [address] [id number] [place] [address] May, [facility] [place] [facility] [address] [id number] [place] [address] Apr, [facility] [place] [facility] [address] [id number] [place] [address] Apr, [facility] [place] [facility] [address] [id number] [place] [address] Apr, [facility] [place] [facility] [address] [id number] [place] [address] Apr, [facility] [place] [facility] [address] [id number] [place] [address] Mar, [facility] [place] [facility] [address] [id number] [place] [address] Mar, [facility] [place] [facility] [address] [id number] [place] [address] Mar, [facility] [place] [facility] [address] [id number] [place] [address] Mar, [facility] [place] [facility] [address] [id number] [place] [address] Mar, [facility] [place] [facility] [address] [id number] [place] [address] Mar, [facility] [place] [facility] [address] [id number] [place] [address] Feb, [facility] [place] [facility] [address] [address] [id number] [address] Feb, [facility] [place] [facility] [address] [id number] [place] [address] Jan, [facility] [place] [facility] [address] [id number] [place] [address] Jan, [facility] [place] [facility] [address] [id number] [place] [address] Jan, [facility] [place] [facility] [address] [id number] [place] [address] Jan, [facility] [place] [facility] [address] [id number] [place] [address] Nov, [facility] [place] [facility] [address] [id number] [place] [address] Nov, [facility] [place] [facility] [address] [id number] [place] [address] Oct, [facility] [place] [facility] [address] [id number] [place] [address] Oct, [facility] [place] [facility] [address] [id number] [place] [address] Sep, [facility] [place] [facility] [address] [id number] [place] [address] Sep, [facility] [place] [facility] [address] [id number] [address] Sep, [facility] [place] [facility] [address] [id number] [address] Aug, [facility] [place] [facility] [address] [id number] [place] [address] Aug, [facility] [place] [facility] [address] [id number] [place] [address] Aug, [facility] [place] [facility] [address] [id number] [place] [address] Aug, [facility] [place] [facility] [address] [id number] [place] [address] July, [facility] [address] [id number] [place] [address] July, [facility] [address] [id number] [place] [address] July, [facility] [address] [id number] [place] [address] July, [facility] [address] [id number] [place] [address] Jun, [facility] [address] [id number] [place] [address] Jun, [facility] [address] [id number] [place] [address] Jun, [facility] [address] [id number] [place] [address] May, [facility] [address] [id number] [place] [address] May, [facility] [address] [id number] [place] [address] Apr, [facility] [address] [id number] [place] [address] Apr, [facility] [address] [id number] [place] [address] Apr, [facility] [address] [id number] [place] [address] Apr, [facility] [address] [id number] [place] [address] Mar, [facility] [address] [id number] [place] [address] Mar, [facility] [address] [id number] [place] [address] Mar, [facility] [place] [facility] [address] [id number] [place] [address] 02 Mar, 2012 [facility] [place] [facility] [address] [id number] [place] [address] Feb, [facility] [place] [facility] [address] [id number] [place] [address] Feb, [facility] [place] [facility] [address] [id number] [place] [address] Feb, [facility] [place] [facility] [address] [id number] [place] [address] Feb, [facility] [place] [facility] [address] [id number] [place] [address] Feb, [facility] [place] [facility] [address] [id number] [place] [address] Feb, [facility] [place] [facility] [address] [id number] [place] [address] Feb, [facility] [place] [facility] [address] [id number] [place] [address] Feb, [facility] [place] [facility] [address] [id number] [place] [address] Jan, [facility] [place] [facility] [address] [id number] [place] [address] 28 Jan, 2012 [facility] [place] [facility] [address] [id number] [address] 15 Jan, 2012 [facility] [place] [facility] [address] [id number] [place] [address] 15 Jan, 2012 [facility] [place] [facility] [address] [id number] [place] [address] 14 Jan, 2012 [facility] [place] [facility] [address] [id number] [place] [address] 13 Jan, 2012 [facility] [place] [facility] [address] [id number] [place] [address] 13 Jan, 2012 [facility] [place] [facility] [address] [id number] [place] [address] Jan, [facility] [place] [facility] [address] [id number] [place] [address] Jan, [facility] [place] [facility] [address] [id number] [place] [address] Jan, [facility] [place] [facility] [address] [id number] [place] [address] Jan, [facility] [place] [facility] [address] [id number] [place] [address] Dec, [facility] [place] [facility] [address] [id number] [place] [address] Dec, [facility] [place] [facility] [address] [id number] [place] [address] Dec, [facility] [place] [facility] [address] [id number] [place] [address] Dec, [facility] [place] [facility] [address] [id number] [place] [address] Dec, [facility] [place] [facility] [address] [facility] [id number] [place] [address] 29 Dec, 2011 [facility] [place] [facility] [address] [facility] [id number] [place] [address] Dec, [facility] [place] [facility] [address] [id number] [address] Dec, [facility] [place] [facility] [address] [id number] [place] [address] 15 Dec, 2011 [facility] [place] [facility] [address] [facility] [id number] [place] [address] 15 Dec, 2011 [facility] [place] [facility] [address] [facility] [id number] [address] 08 Dec, 2011 [facility] [place] [facility] [address] [id number] [place] [address] Dec, [facility] [place] [facility] [address] [id number] [place] [address] Nov, [facility] [place] [facility] [address] [id number] [place] [address] Oct, [facility] [place] [facility] [address] [id number] [place] [address] Oct, [facility] [place] [facility] [address] [id number] [place] [address] Oct, [facility] [place] [facility] [address] [id number] [place] [address] Oct, [facility] [place] [facility] [address] [id number] [place] [address] Sep, [facility] [place] [facility] [address] [id number] [place] [address] Sep, [facility] [place] [facility] [address] [id number] [place] [address] Sep, [facility] [place] [facility] [address] [id number] [place] [address] Sep, [facility] [place] [facility] [address] [id number] [place] [address] Aug, [facility] [place] [facility] [address] [id number] [place] [address] Aug, [facility] [place] [facility] [address] [id number] [place] [address] Aug, [facility] [place] [facility] [address] [id number] [place] [address] Aug, [facility] [place] [facility] [address] [id number] [place] [address] Aug, [facility] [place] [facility] [address] [id number] [address] July, [facility] [address] [facility] [id number] [place] [address] July, [facility] [address] [facility] [id number] [address] July, [facility] [address] [facility] [id number] [place] [address] Dec, IMMUNIZATIONS No Known Immunizations SOCIAL HISTORY Never Assessed REASON FOR VISIT EMR-[facility] PLAN OF CARE VITAL SIGNS MEDICATIONS Unknown [...]
--- OUTSIDE RECORDS SUMMARY | 2018-10-24 12:10 | XMS REPORT ---
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 Role Phone Migration, Doctor Unavailable Unavailable PROBLEMS Type Condition ICD9-CM Code IPC54-TQ Code Onset Dates Condition Status SNOMED Code Problem Chronic periodontal disease K05.6 Active 1898439 Problem MRSA (methicillin resistant staph aureus) culture positive Z22.322 Active 671744489 Problem Major depressive disorder F32.9 Active 906924117 Problem Interstitial cystitis N30.10 Active 452992636 Problem Generalized anxiety disorder F41.1 Active 379839728 Problem Epilepsy G40.909 Active 28954286 Problem Fibromyalgia M79.7 Active 96917701 Problem Irritable bowel syndrome without diarrhea K58.9 Active 66324475 Problem Tinnitus of both ears H93.13 Active 3434510635599 Problem Menopausal symptoms N95.1 Active 87523728 Problem Lumbago M54.5 Active 482753213 Problem COPD exacerbation J44.1 Active 632388927 Problem Esophageal reflux K21.9 Active 377098935 Problem Chronic obstructive pulmonary disease, unspecified COPD type J44.9 Active 63261887 Problem On antiepileptic therapy Z79.899 Active 199722907 Problem Vitamin D deficiency E55.9 Active 02958511 Problem Irritable bowel syndrome with diarrhea K58.0 Active 629417210 ALLERGIES No Information ENCOUNTERS Encounter Location Date Diagnosis [facility] [address] [id number], [place] [address] Jun, [facility] [address] [id number] [address] Jun, Fibromyalgia M79.7 [facility] [address] [id number], [place] [address] May, Fibromyalgia M79.7 [facility] [address] [id number], [place] [address] Apr, [facility] [id number] [place] [address] Mar, Fibromyalgia M79.7 [facility] [address] [address] Feb, Fibromyalgia M79.7 [facility] [id number] [place] [address] Feb, Acute cystitis with hematuria N30.01 [facility] [address] [address] Feb, Acute cystitis with hematuria N30.01 ; COPD exacerbation J44.1 ; Interstitial cystitis N30.10 ; Nausea R11.0 and Rectal bleeding K62.5 [facility] [id number] [place] [address] Jan, Fibromyalgia M79.7 [facility] [id number] [place] [id number] Dec, [facility] [id number] [place] [id number] Dec, [facility] [address] [address] Dec, Fibromyalgia M79.7 [facility] [id number] [place] [address] Dec, [facility] [id number] [place] [address] Oct, [facility] [id number] [place] [address] [id number] Oct, [facility] [id number] [place] [address] Oct, [facility] [id number] [place] [address] Sep, [facility] [id number] [place] [address] Sep, [facility] [address], [place] [address] Sep, [facility] [id number] [place] [id number] Aug, Dental examination Z01.20 [facility] [id number] [place] [address] Aug, Abscess of axilla, left L02.412 [facility] [id number] [place] [address] Aug, Esophageal reflux K21.9 [facility] [id number] [place] [address] Aug, [facility] [id number] [place] [address] Aug, Esophageal reflux K21.9 ; Fluid level behind tympanic membrane of right ear H65.91 ; Fibromyalgia M79.7 and Lumbago M54.5 [facility] [id number] [place] [address] Aug, Esophageal reflux K21.9 [facility] [id number] [place] [address] July, [facility] [id number] [place] [address] July, [facility] [id number] [place] [address] July, Chronic obstructive pulmonary disease, unspecified COPD type J44.9 [facility] [address] [id number], [place] [address] July, [facility] [id number] [place] [address] July, [facility] [id number] [place] [address] July, Interstitial cystitis N30.10 ; Fibromyalgia M79.7 [...] Dysuria R30.0 and Generalized anxiety disorder F41.1 [address] [address] Jun, [address] [address] Jun, Chronic obstructive pulmonary disease, unspecified COPD type J44.9 ; COPD exacerbation J44.1 and Sore throat J02.[address] [address] Jun, Fibromyalgia M79.7 [address] [address] Jun, Fibromyalgia M79.7 [address] [place] [address] [address] May, [address] [address] May, [address] [address] May, Fibromyalgia M79.7 [address] [address] [address] [address] Mar, [address] [address] Mar, Epilepsy G40.909 ; Lumbago M54.5 ; Esophageal reflux K21.9 ; Fibromyalgia M79.7 ; Chronic obstructive pulmonary disease, unspecified COPD type J44.9 ; Vitamin D deficiency E55.9 ; Fluid level behind tympanic membrane of right ear H65.91 ; Irritable bowel syndrome with diarrhea K58.0 ; Hematochezia K92.1 and Generalized anxiety disorder F41.1 [facility] [id number] [place] [address] Mar, [facility] [id number] [place] [address] Mar, [facility] [id number] [place] [address] Mar, Vitamin D deficiency E55.9 [facility] [id number] [place] [address] Feb, [facility] [id number] [place] [address] Feb, [facility] [id number] [place] [address] Jan, Fibromyalgia M79.7 [facility] [id number] [place] [address] Jan, [facility] [id number] [place] [address] Jan, [facility] [id number] [place] [address] Jan, Vitamin D deficiency E55.9 [facility] [id number] [place] [address] Dec, [facility] [id number] [place] [address] Dec, [facility] [id number] [place] [address] Dec, Generalized anxiety disorder F41.1 [facility] [id number] [place] [address] Dec, Dysuria R30.0 ; Acute bilateral low back pain without sciatica M54.5 and Encounter for immunization Z23 [facility] [address], [place] [address] Oct, [facility] [id number] [place] [address] Oct, Fibromyalgia M79.7 [facility] [id number] [place] [address] Sep, Dysuria R30.0 and Acute bronchitis, unspecified organism J20.9 [facility] [id number] [place] [address] Sep, [facility] [id number] [place] [address] Sep, Rectal prolapse K62.3 [facility] [id number] [place] [address] Sep, Chronic obstructive pulmonary disease, unspecified COPD type J44.9 [facility] [id number] [place] [id number] Aug, [facility] [id number] [place] [address] [id number] Aug, [facility] [id number] [place] [address] Aug, Light headedness R42 ; On antiepileptic therapy Z79.899 ; Vitamin D deficiency E55.9 ; Screening for lipid disorders Z13.220 ; Dysuria R30.0 and Hemorrhoids, unspecified hemorrhoid type K64.9 [facility] [address], [place] [address] Aug, Internal prolapsed hemorrhoids K64.8 [facility] [id number] [place] [address] July, [facility] [address] [place] [address] May, [facility] [id number] [place] [address] May, Fever and chills R50.9 and Influenza B J10.1 [address] [address] Apr, [address] [place] [address] Apr, Fibromyalgia M79.7 and Generalized anxiety disorder F41.[address] [address] Mar, Esophageal reflux K21.9 ; Generalized anxiety disorder F41.1 and Epilepsy G40.[address] [address] Mar, Epilepsy G40.909 ; Esophageal reflux K21.9 ; Fibromyalgia M79.7 ; Generalized anxiety disorder F41.1 ; Pain of left foot M79.672 ; Pain in right foot M79.671 ; Ear pain, right H92.01 ; Tinnitus of both ears H93.13 ; Chronic obstructive pulmonary disease, unspecified COPD type J44.9 ; Vitamin D deficiency E55.9 ; Screening for lipid disorders Z13.220 and On antiepileptic therapy Z79.899 [address] [address] Feb, [address] [address] Feb, [facility] [address] [address] Feb, Dysuria R30.0 and Plantar fasciitis of right foot M72.[address] [address] Feb, [facility] [address] [address] Feb, [address] [address] Jan, [facility] [address], [place] [address] Jan, [facility] [id number] [place] [address] Dec, [facility] [id number] [place] [address] Dec, [facility] [id number] [place] [address] Dec, [facility] [id number] [place] [address] Nov, [facility] [id number] [place] [address] Sep, [facility] [id number] [place] [address] Aug, Shortness of breath R06.02 and Acute suppurative otitis media of right ear without spontaneous rupture of tympanic membrane, recurrence not specified H66.001 [facility] [id number] [place] [address] 14 Aug, 2015 Internal prolapsed hemorrhoids K64.8 [address] [id number] [place] [address] 06 Jun, 2015 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 [facility] [id number] [place] [address] May, Fibromyalgia M79.7 ; Interstitial cystitis N30.10 ; Intractable migraine without aura and without status migrainosus G43.019 ; Low vitamin D level E55.9 and Ringing in right ear H93.11 [facility] [address] [place] [address] May, [facility] [address] [place] [address] May, Low vitamin D level E55.9 [facility] [id number] [place] [address] Apr, [facility] [address] [address] Mar, [facility] [address] [address] Mar, Acute suppurative otitis media of right ear without spontaneous rupture of tympanic membrane, recurrence not specified H66.001 ; Encounter for immunization Z23 ; Asthma with acute exacerbation, unspecified asthma severity J45.901 ; Memory problem R41.3 ; Acute pain of right knee M25.561 ; Chronic fatigue R53.82 and Excessive urinary volume R35.8 [facility] [address] [address] Feb, [facility] [address] [address] Feb, [facility] [address] [address] Jan, [facility] [address] [address] Nov, Esophageal reflux 530.81 ; Anxiety 300.00 and Tingling in extremities 782.0 [facility] [address] [address] Oct, [facility] [address] [address] Oct, [facility] [address] [address] Oct, [facility] [address] [address] Oct, [facility] [address] [address] Oct, [facility] [address] [address] Sep, Other chronic allergic conjunctivitis 372.14 ; Irritable bowel syndrome 564.1 ; 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 ; Fibromyalgia 729.1 ; Extremity pain 729.5 and Neck pain 723.1 [facility] [address], [place] [address] Sep, [facility] [id number] [place] [address] Aug, [facility] [id number] [place] [address] Aug, [facility] [id number] [place] [address] July, Vomiting 787.03 [facility] [id number] [place] [address] [id number] July, Dental examination V72.2 [facility] [id number] [place] [address] Jun, [facility] [id number] [place] [address] Jun, [facility] [id number] [place] [address] May, [facility] [address] [place] [address] May, [facility] [id number] [place] [address] May, [facility] [id number] [place] [address] May, [facility] [id number] [place] [address] May, [facility] [id number], [place] [address] May, [facility] [address] [place] [address] May, [facility] [place] [facility] [address] [id number] [place] [address] May, [facility] [place] [facility] [address] [id number] [place] [address] May, [facility] [place] [facility] [address] [id number] [place] [address] Apr, 2014 [facility] [place] [facility] [address] [id number] [place] [address] Apr, 2014 [facility] [place] [facility] [address] [id number] [place] [address] Apr, 2014 [facility] [place] [facility] [address] [id number] [place] [address] Apr, [facility] [place] [facility] [address] [id number] [place] [address] Apr, [facility] [place] [facility] [address] [id number] [place] [address] Apr, [facility] [place] [facility] [address] [id number] [place] [address] Mar, [facility] [place] [facility] [address] [id number] [place] [address] Mar, [facility] [place] [facility] [address] [id number] [place] [address] Mar, [facility] [place] [facility] [address] [id number] [place] [address] Mar, [facility] [place] [facility] [address] [id number] [place] [address] Mar, [facility] [place] [facility] [address] [id number] [place] [address] Mar, [facility] [place] [facility] [address] [id number] [place] [address] Mar, [facility] [address] [id number] [place] [address] Mar, [facility] [place] [facility] [address] [id number] [place] [address] Mar, [facility] [place] [facility] [address] [id number] [place] [address] Mar, [facility] [place] [facility] [address] [id number] [place] [address] Mar, [facility] [place] [facility] [address] [id number] [place] [address] Mar, [facility] [place] [facility] [address] [id number] [place] [address] Mar, [facility] [place] [facility] [address] [id number] [place] [address] Mar, [facility] [place] [facility] [address] [id number] [place] [address] Mar, [facility] [place] [facility] [address] [id number] [place] [address] Mar, [facility] [place] [facility] [address] [id number] [place] [address] Mar, [facility] [place] [facility] [address] [id number] [place] [address] Mar, [facility] [place] [facility] [address] [id number], [place] [address] Mar, [facility] [place] [facility] [address] [id number] [place] [address] Feb, [facility] [place] [facility] [address] [id number] [place] [address] Feb, [facility] [place] [facility] [address] [id number] [place] [address] Feb, [facility] [place] [facility] [address] [id number] [place] [address] Feb, [facility] [place] [facility] [address] [id number] [place] [address] 20 Jan, 2014 [facility] [place] [facility] [address] [id number] [place] [address] 20 Jan, 2014 [facility] [place] [facility] [address] [id number] [place] [address] Jan, [facility] [place] [facility] [address] [id number] [place] [address] 14 Jan, 2014 [facility] [place] [facility] [address] [id number] [place] [address] Jan, [facility] [place] [facility] [address] [id number] [place] [address] Jan, [facility] [place] [facility] [address] [id number] [place] [address] Jan, [facility] [place] [facility] [address] [id number] [place] [address] Jan, [facility] [place] [facility] [address] [id number] [place] [address] Dec, [facility] [place] [facility] [address] [id number] [place] [address] Dec, [facility] [place] [facility] [address] [id number] [place] [address] 17 Dec, 2013 [facility] [place] [facility] [address] [id number] [place] [address] 17 Dec, 2013 [facility] [place] [facility] [address] [id number] [place] [address] 22 Nov, 2013 [facility] [place] [facility] [address] [id number] [place] [address] 22 Nov, 2013 [facility] [place] [facility] [address] [id number] [place] [address] 08 Nov, 2013 [facility] [place] [facility] [address] [id number] [place] [address] 08 Nov, 2013 [facility] [place] [facility] [address] [id number] [place] [address] 05 Nov, 2013 [facility] [place] [facility] [address] [id number] [place] [address] 05 Nov, 2013 [facility] [place] [facility] [address] [id number] [place] [address] 04 Nov, 2013 [facility] [place] [facility] [address] [id number] [place] [address] 04 Nov, 2013 [facility] [place] [facility] [address] [id number] [place] [address] Nov, 2013 [facility] [place] [facility] [address] [id number] [place] [address] Nov, 2013 [facility] [place] [facility] [address] [id number] [place] [address] Oct, [facility] [place] [facility] [address] [id number] [place] [address] Oct, [facility] [place] [facility] [address] [id number] [place] [address] Sep, [facility] [place] [facility] [address] [id number] [place] [address] Sep, [facility] [place] [facility] [address] [id number] [place] [address] Sep, [facility] [place] [facility] [address] [id number] [place] [address] Sep, [facility] [place] [facility] [address] [id number] [place] [address] Sep, [facility] [place] [facility] [address] [id number] [place] [address] Sep, [facility] [place] [facility] [address] [id number] [place] [address] Aug, [facility] [place] [facility] [address] [id number] [place] [address] Aug, [facility] [place] [facility] [address] [id number] [place] [address] Aug, [facility] [place] [facility] [address] [id number] [place] [address] Aug, [facility] [place] [facility] [address] [id number] [place] [address] Aug, [facility] [place] [facility] [address] [id number] [place] [address] Aug, [facility] [place] [facility] [address] [id number] [place] [address] July, [facility] [place] [facility] [address] [id number] [place] [address] July, [facility] [place] [facility] [address] [id number] [place] [address] July, [facility] [place] [facility] [address] [id number] [place] [address] July, [facility] [place] [facility] [address] [id number] [place] [address] July, [facility] [place] [facility] [address] [id number] [place] [address] July, [facility] [place] [facility] [address] [id number], [place] [address] Jun, [facility] [place] [facility] [address] [id number] [place] [address] Jun, [facility] [place] [facility] [address] [id number] [place] [address] Jun, [facility] [place] [facility] [address] [id number] [place] [address] Jun, [facility] [place] [facility] [address] [id number] [place] [address] May, [facility] [place] [facility] [address] [id number] [place] [address] May, [facility] [place] [facility] [address] [id number] [place] [address] Apr, [facility] [place] [facility] [address] [id number] [place] [address] Apr, [facility] [place] [facility] [address] [id number] [place] [address] Apr, [facility] [place] [facility] [address] [id number] [place] [address] Apr, [facility] [place] [facility] [address] [id number] [place] [address] Mar, [facility] [place] [facility] [address] [id number] [place] [address] Mar, [facility] [place] [facility] [address] [id number] [place] [address] Mar, [facility] [place] [facility] [address] [id number] [place] [address] Mar, [facility] [place] [facility] [address] [id number] [place] [address] Mar, [facility] [place] [facility] [address] [id number] [place] [address] Mar, [facility] [place] [facility] [address] [id number] [place] [address] Feb, [facility] [place] [facility] [address] [id number] [place] [address] Feb, [facility] [place] [facility] [address] [id number] [place] [address] Jan, [facility] [place] [facility] [address] [id number] [place] [address] Jan, [facility] [address] [id number] [place] [address] Jan, [facility] [place] [facility] [address] [id number] [place] [address] Jan, [facility] [place] [facility] [address] [id number] [place] [address] Nov, [facility] [place] [facility] [address] [id number] [place] [address] Nov, [facility] [place] [facility] [address] [id number] [place] [address] Oct, [facility] [place] [facility] [address] [id number] [place] [address] Oct, [facility] [place] [facility] [address] [id number] [place] [address] Sep, [facility] [place] [facility] [address] [id number] [place] [address] Sep, [facility] [place] [facility] [address] [id number] [place] [address] Sep, [facility] [place] [facility] [address] [id number] [place] [address] Aug, [facility] [place] [facility] [address] [id number] [place] [address] Aug, [facility] [place] [facility] [address] [id number], [place] [address] Aug, [facility] [place] [facility] [address] [id number] [place] [address] Aug, [facility] [place] [facility] [address] [id number] [place] [address] July, [facility] [place] [facility] [address] [id number] [place] [address] July, [facility] [place] [facility] [address] [id number] [place] [address] July, [facility] [address] [id number] [place] [address] July, [facility] [address] [id number] [place] [address] Jun, [facility] [address] [id number] [place] [address] Jun, [facility] [place] [facility] [address] [id number] [place] [address] Jun, [facility] [address] [id number] [place] [address] May, [facility] [address] [id number] [place] [address] May, [facility] [address] [id number] [place] [address] Apr, [facility] [address] [id number] [place] [address] Apr, [facility] [address] [id number] [place] [address] Apr, [facility] [address] [id number] [place] [address] Apr, [facility] [address] [id number] [place] [address] Mar, [facility] [place] [facility] [address] [id number] [place] [address] Mar, [facility] [place] [facility] [address] [id number] [place] [address] Mar, [facility] [place] [facility] [address] [id number] [place] [address] Mar, [facility] [place] [facility] [address] [id number] [place] [address] Feb, [facility] [place] [facility] [address] [id number] [place] [address] 10 Feb, 2012 [facility] [place] [facility] [address] [id number] [place] [address] 10 Feb, 2012 [facility] [place] [facility] [address] [id number] [place] [address] Feb, [facility] [place] [facility] [address] [id number] [place] [address] Feb, [facility] [place] [facility] [address] [id number] [place] [address] 06 Feb, 2012 [facility] [place] [facility] [address] [id number] [place] [address] 04 Feb, 2012 [facility] [place] [facility] [address] [id number] [place] [address] 04 Feb, 2012 [facility] [place] [facility] [address] [id number] [place] [address] 28 Jan, 2012 [facility] [place] [facility] [address] [id number] [place] [address] 28 Jan, 2012 [facility] [place] [facility] [address] [id number] [place] [address] 15 Jan, 2012 [facility] [place] [facility] [address] [id number] [place] [address] 15 Jan, 2012 [facility] [place] [facility] [address] [id number] [place] [address] 14 Jan, 2012 [facility] [place] [facility] [address] [id number] [place] [address] 13 Jan, 2012 [facility] [place] [facility] [address] [id number] [place] [address] 13 Jan, 2012 [facility] [place] [facility] [address] [id number] [place] [address] 12 Jan, 2012 [facility] [place] [facility] [address] [id number], [place] [address] Jan, [facility] [place] [facility] [address] [id number] [place] [address] Jan, [facility] [place] [facility] [address] [id number], [place] [address] Jan, [facility] [place] [facility] [address] [facility] [id number] [place] [address] Dec, [facility] [place] [facility] [address] [id number] [place] [address] Dec, [facility] [place] [facility] [address] [id number] [place] [address] Dec, [facility] [place] [facility] [address] [id number] [place] [address] Dec, [facility] [place] [facility] [address] [id number], [place] [address] Dec, [facility] [place] [facility] [address] [id number] [place] [address] Dec, [facility] [place] [facility] [address] [id number], [place] [address] Dec, [facility] [place] [facility] [address] [facility] [id number], [place] [address] Dec, [facility] [place] [facility] [address] [id number], [place] [address] Dec, [facility] [place] [facility] [address] [facility] [id number], [place] [address] Dec, [facility] [place] [facility] [address] [id number], [place] [address] Dec, [facility] [place] [facility] [address] [facility] [id number], [place] [address] Dec, [facility] [place] [facility] [address] [id number], [place] [address] 24 Nov, 2011 [facility] [place] [facility] [address] [id number] [place] [address] Oct, [facility] [place] [facility] [address] [id number] [place] [address] Oct, [facility] [place] [facility] [address] [id number] [place] [address] Oct, [facility] [place] [facility] [address] [id number] [place] [address] Oct, [facility] [place] [facility] [address] [id number] [place] [address] Sep, [facility] [place] [facility] [address] [id number] [place] [address] Sep, [facility] [place] [facility] [address] [id number] [place] [address] Sep, [facility] [place] [facility] [address] [id number] [place] [address] Sep, [facility] [place] [facility] [address] [id number] [place] [address] Aug, [facility] [place] [facility] [address] [id number] [place] [address] Aug, [facility] [place] [facility] [address] [id number] [place] [address] Aug, [facility] [place] [facility] [address] [id number] [place] [address] Aug, [facility] [place] [facility] [address] [id number] [place] [address] Aug, [facility] [place] [facility] [address] [id number] [place] [address] July, [facility] [place] [facility] [address] [id number] [place] [address] July, [facility] [place] [facility] [address] [id number] [place] [address] July, [facility] [address] [id number] [place] [address] Dec, IMMUNIZATIONS No Known Immunizations SOCIAL HISTORY Never Assessed REASON FOR VISIT EMR-[facility] [place] PLAN OF CARE VITAL SIGNS [...]
--- OUTSIDE RECORDS SUMMARY | 2018-10-24 12:11 | XMS REPORT ---
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 Name Role Phone Migration, Doctor Unavailable Unavailable PROBLEMS Type Condition ICD9-CM Code PRK06-LM Code Onset Dates Condition Status SNOMED Code Problem Chronic periodontal disease K05.6 Active 7752045 Problem MRSA (methicillin resistant staph aureus) culture positive Z22.322 Active 359801630 Problem Major depressive disorder F32.9 Active 528687229 Problem Interstitial cystitis N30.10 Active 655806046 Problem Generalized anxiety disorder F41.1 Active 558397748 Problem Epilepsy G40.909 Active 96851213 Problem Fibromyalgia M79.7 Active 26932099 Problem Irritable bowel syndrome without diarrhea K58.9 Active 88394985 Problem Tinnitus of both ears H93.13 Active 2554675043390 Problem Menopausal symptoms N95.1 Active 40595137 Problem Lumbago M54.5 Active 047917261 Problem COPD exacerbation J44.1 Active 515960378 Problem Esophageal reflux K21.9 Active 381746191 Problem Chronic obstructive pulmonary disease, unspecified COPD type J44.9 Active 26431694 Problem On antiepileptic therapy Z79.899 Active 808233123 Problem Vitamin D deficiency E55.9 Active 07754806 Problem Irritable bowel syndrome with diarrhea K58.0 Active 778965695 ALLERGIES No Information ENCOUNTERS Encounter Location Date Diagnosis [facility] [id number] [address] Jun, [facility] [address] [facility] [id number] [address] May, Fibromyalgia M79.7 [facility] [id number] [address] Apr, [facility] [address] [facility] [id number] [address] Mar, Fibromyalgia M79.7 [facility] [id number] [place] [address] Feb, Fibromyalgia M79.7 [facility] [address] [address] Feb, Acute cystitis with hematuria N30.01 [facility] [id number] [place] [address] Feb, Acute cystitis with hematuria N30.01 ; COPD exacerbation J44.1 ; Interstitial cystitis N30.10 ; Nausea R11.0 and Rectal bleeding K62.5 [facility] [id number] [place] [address], [place] [address] Jan, Fibromyalgia M79.7 [facility] [id number] [place] [id number] Dec, [facility] [id number] [place] [id number] Dec, [facility] [place] [facility] [id number] [place] [address] Dec, Fibromyalgia M79.7 [facility] [id number] [place] [address] Dec, [facility] [place] [facility] [id number] [place] [address] Oct, [facility] [id number] [place] [address] [id number] Oct, [facility] [place] [facility] [id number] [place] [address] Oct, [facility] [place] [facility] [id number] [place] [address] Sep, [facility] [place] [facility] [id number] [place] [address] Sep, [facility] [place] [facility] [id number] [place] [address] Sep, [facility] [place] [facility] [id number] [id number] Aug, Dental examination Z01.20 [address] [id number] [place] [address] Aug, Abscess of axilla, left L02.412 [address] [id number] [place] [address] 08 Aug, 2017 Esophageal reflux K21.9 [facility] [id number] [place] [address] Aug, [facility] [id number] [place] [address] Aug, Esophageal reflux K21.9 ; Fluid level behind tympanic membrane of right ear H65.91 ; Fibromyalgia M79.7 and Lumbago M54.5 [facility] [id number] [place] [address] Aug, Esophageal reflux K21.9 [facility] [id number] [place] [address] July, [facility] [facility] [id number] [place] [address] July, [facility] [address] [place] [address] July, Chronic obstructive pulmonary disease, unspecified COPD type J44.9 [facility] [facility] [id number] [place] [address] July, [facility] [id number] [place] [address] July, [facility] [id number] [place] [address] July, Interstitial cystitis N30.10 ; Fibromyalgia M79.7 [...] Dysuria R30.0 and Generalized anxiety disorder F41.1 [address] [facility] [id number] [place] [address] Jun, [address] [facility] [address] [address] Jun, Chronic obstructive pulmonary disease, unspecified COPD type J44.9 ; COPD exacerbation J44.1 and Sore throat J02.9 [address] [facility] [address] [address] Jun, Fibromyalgia M79.7 [facility] [id number] [place] [address] Jun, Fibromyalgia M79.7 [facility] [id number] [place] [address] May, [facility] [id number] [place] [address] May, [facility] [id number] [place] [address] May, Fibromyalgia M79.7 [place] [facility] [id number] [place] [address] Mar, [facility] [id number] [place] [address] Mar, Epilepsy G40.909 ; Lumbago M54.5 ; Esophageal reflux K21.9 ; Fibromyalgia M79.7 ; Chronic obstructive pulmonary disease, unspecified COPD type J44.9 ; Vitamin D deficiency E55.9 ; Fluid level behind tympanic membrane of right ear H65.91 ; Irritable bowel syndrome with diarrhea K58.0 ; Hematochezia K92.1 and Generalized anxiety disorder F41.1 [address] [facility] [id number] [address] Mar, [facility] [id number] [place] [address] Mar, [facility] [id number] [place] [address] Mar, Vitamin D deficiency E55.9 [facility] [id number] [place] [address] Feb, [facility] [id number] [place] [address] Feb, [facility] [id number] [place] [address] Jan, Fibromyalgia M79.7 [facility] [id number] [place] [address] Jan, [facility] [id number] [place] [address] Jan, [facility] [address] [place] [address] Jan, Vitamin D deficiency E55.9 [facility] [id number] [place] [address] Dec, [facility] [address] [place] [address] Dec, [facility] [id number] [place] [address] Dec, Generalized anxiety disorder F41.1 [facility] [id number] [place] [address] Dec, Dysuria R30.0 ; Acute bilateral low back pain without sciatica M54.5 and Encounter for immunization Z23 [facility] [address] [address] Oct, [facility] [id number] [address] Oct, Fibromyalgia M79.7 [facility] [id number] [place] [address] Sep, Dysuria R30.0 and Acute bronchitis, unspecified organism J20.9 [facility] [id number] [place] [address] Sep, [facility] [id number] [place] [address] Sep, Rectal prolapse K62.3 [address] [id number] [place] [address] Sep, Chronic obstructive pulmonary disease, unspecified COPD type J44.9 [facility] [address] [id number] Aug, [facility] [address] [id number] Aug, [facility] [id number] [place] [address] Aug, Light headedness R42 ; On antiepileptic therapy Z79.899 ; Vitamin D deficiency E55.9 ; Screening for lipid disorders Z13.220 ; Dysuria R30.0 and Hemorrhoids, unspecified hemorrhoid type K64.9 [address] [place] [address] Aug, Internal prolapsed hemorrhoids K64.8 [address] [place] [address] [place] [address] July, [facility] [id number] [place] [address] May, [facility] [id number] [place] [address] May, Fever and chills R50.9 and Influenza B J10.1 [address] [place] [address] 16 Apr, 2016 [facility] [address] [address] Apr, Fibromyalgia M79.7 and Generalized anxiety disorder F41.1 [facility] [id number] [place] [address] Mar, Esophageal reflux K21.9 ; Generalized anxiety disorder F41.1 and Epilepsy G40.909 [facility] [id number] [place] [address] 13 Mar, 2016 Epilepsy G40.909 ; Esophageal reflux K21.9 ; Fibromyalgia M79.7 ; Generalized anxiety disorder F41.1 ; Pain of left foot M79.672 ; Pain in right foot M79.671 ; Ear pain, right H92.01 ; Tinnitus of both ears H93.13 ; Chronic obstructive pulmonary disease, unspecified COPD type J44.9 ; Vitamin D deficiency E55.9 ; Screening for lipid disorders Z13.220 and On antiepileptic therapy Z79.899 [facility] [id number] [place] [address] Feb, [place] [address] Feb, [facility] [id number] [place] [address] Feb, Dysuria R30.0 and Plantar fasciitis of right foot M72.2 [facility] [id number] [place] [address] Feb, [facility] [address] [address] Feb, [facility] [id number] [place] [address] Jan, [facility] [id number] [place] [address] Jan, [facility] [address] [address] Dec, [facility] [id number] [place] [address] Dec, [facility] [id number] [place] [address] Dec, [facility] [address] [address] Nov, [facility] [id number] [place] [address] Sep, [facility] [id number] [place] [address] Aug, Shortness of breath R06.02 and Acute suppurative otitis media of right ear without spontaneous rupture of tympanic membrane, recurrence not specified H66.001 [facility] [id number] [place] [address] Aug, Internal prolapsed hemorrhoids K64.8 [address] [id number] [place] [address] Jun, 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 [address] [id number] [place] [address] May, Fibromyalgia M79.7 ; Interstitial cystitis N30.10 ; Intractable migraine without aura and without status migrainosus G43.019 ; Low vitamin D level E55.9 and Ringing in right ear H93.11 [facility] [address] [place] [address] May, [address] [id number] [place] [address] May, Low vitamin D level E55.9 [facility] [id number] [place] [address] Apr, [facility] [id number] [place] [address] Mar, [facility] [address] [address] Mar, Acute suppurative otitis media of right ear without spontaneous rupture of tympanic membrane, recurrence not specified H66.001 ; Encounter for immunization Z23 ; Asthma with acute exacerbation, unspecified asthma severity J45.901 ; Memory problem R41.3 ; Acute pain of right knee M25.561 ; Chronic fatigue R53.82 and Excessive urinary volume R35.8 [facility] [address] [address] Feb, [place] [address] [address] Feb, [place] [address] [address] Jan, [facility] [address] [address] Nov, Esophageal reflux 530.81 ; Anxiety 300.00 and Tingling in extremities 782.0 [facility] [id number] [place] [address] Oct, [facility] [address] [address] Oct, [facility] [address] [address] Oct, [facility] [address] [address] Oct, [facility] [address] [address] Oct, [facility] [id number] [place] [address] Sep, Other chronic allergic conjunctivitis 372.14 ; Irritable bowel syndrome 564.1 ; 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 ; Fibromyalgia 729.1 ; Extremity pain 729.5 and Neck pain 723.1 [facility] [id number] [place] [address] Sep, [facility] [id number] [place] [address] Aug, [facility] [id number] [place] [address] Aug, [facility] [id number] [place] [address] July, Vomiting 787.03 [facility] [id number] [place] [id number] July, Dental examination V72.2 [facility] [id number] [place] [address] Jun, [facility] [id number] [place] [address] Jun, [facility] [address] [place] [address] May, [facility] [id number] [place] [address] May, [facility] [address] [place] [address] May, [facility] [id number] [place] [address] May, [facility] [address] [place] [address] May, [facility] [id number] [place] [address] May, [facility] [address] [address] May, [facility] [id number] [place] [address] May, [facility] [place] [facility] [address] [id number] [place] [address] May, [facility] [place] [facility] [address] [id number] [place] [address] Apr, 2014 [facility] [place] [facility] [address] [id number] [place] [address] Apr, 2014 [facility] [place] [facility] [address] [id number] [place] [address] Apr, 2014 [facility] [place] [facility] [address] [id number] [place] [address] Apr, [facility] [place] [facility] [address] [id number] [place] [address] Apr, [facility] [place] [facility] [address] [id number] [place] [address] Apr, [facility] [place] [facility] [address] [id number] [place] [address] Mar, [facility] [place] [facility] [address] [id number] [place] [address] Mar, [facility] [place] [facility] [address] [facility] [id number] [place] [address] Mar, [facility] [place] [facility] [address] [id number] [place] [address] Mar, [facility] [place] [facility] [address] [id number] [address] Mar, [facility] [place] [facility] [address] [id number] [place] [address] Mar, [facility] [place] [facility] [address] [facility] [id number] [place] [address] Mar, [facility] [place] [facility] [address] [id number] [place] [address] Mar, [facility] [place] [facility] [address] [id number] [place] [address] Mar, [facility] [address] [id number] [place] [address] Mar, [facility] [place] [facility] [address] [id number] [place] [address] Mar, [facility] [place] [facility] [address] [id number] [place] [address] Mar, [facility] [address] [id number] [place] [address] Mar, [facility] [place] [facility] [address] [id number] [place] [address] Mar, [facility] [address] [id number] [place] [address] Mar, [facility] [address] [id number] [place] [address] Mar, [facility] [address] [id number] [place] [address] Mar, [facility] [address] [id number] [place] [address] Mar, [facility] [place] [facility] [address] [id number] [place] [address] Mar, [facility] [place] [facility] [address] [id number] [place] [address] Feb, [facility] [place] [facility] [address] [id number] [place] [address] Feb, [facility] [place] [facility] [address] [id number] [place] [address] Feb, [facility] [place] [facility] [address] [id number] [place] [address] Feb, [facility] [place] [facility] [address] [id number] [place] [address] Jan, [facility] [place] [facility] [address] [id number] [place] [address] Jan, [facility] [place] [facility] [address] [id number] [place] [address] Jan, [facility] [place] [facility] [address] [id number] [place] [address] Jan, [facility] [place] [facility] [address] [id number] [place] [address] Jan, [facility] [place] [facility] [address] [id number] [place] [address] Jan, [facility] [place] [facility] [address] [id number] [place] [address] Jan, [facility] [place] [facility] [address] [id number] [place] [address] Jan, [facility] [place] [facility] [address] [id number] [place] [address] Dec, [facility] [place] [facility] [address] [id number] [place] [address] Dec, [facility] [place] [facility] [address] [id number] [place] [address] Dec, [facility] [place] [facility] [address] [id number] [place] [address] Dec, [facility] [place] [facility] [address] [id number] [place] [address] 22 Nov, 2013 [facility] [place] [facility] [address] [id number] [place] [address] 22 Nov, 2013 [facility] [place] [facility] [address] [id number] [place] [address] 08 Nov, 2013 [facility] [place] [facility] [address] [id number] [place] [address] 08 Nov, 2013 [facility] [place] [facility] [address] [id number] [place] [address] 05 Sep, 2013 [facility] [place] [facility] [address] [id number] [place] [address] 05 Sep, 2013 [facility] [place] [facility] [address] [id number] [place] [address] 04 Nov, 2013 [facility] [place] [facility] [address] [id number] [place] [address] 04 Nov, 2013 [facility] [place] [facility] [address] [id number] [place] [address] 03 Nov, 2013 [facility] [place] [facility] [address] [id number] [place] [address] Nov, 2013 [facility] [place] [facility] [address] [id number] [place] [address] Oct, [facility] [place] [facility] [address] [id number] [place] [address] Oct, [facility] [place] [facility] [address] [id number] [place] [address] Sep, [facility] [place] [facility] [address] [id number] [place] [address] Sep, [facility] [place] [facility] [address] [id number] [place] [address] Sep, [facility] [place] [facility] [address] [id number] [place] [address] Sep, [facility] [place] [facility] [address] [id number] [place] [address] Sep, [facility] [place] [facility] [address] [id number] [place] [address] Sep, [facility] [place] [facility] [address] [id number] [place] [address] Aug, [facility] [place] [facility] [address] [id number] [place] [address] Aug, [facility] [place] [facility] [address] [id number] [place] [address] Aug, [facility] [place] [facility] [address] [id number] [place] [address] Aug, [facility] [place] [facility] [address] [id number] [place] [address] Aug, [facility] [place] [facility] [address] [id number] [place] [address] Aug, [facility] [place] [facility] [address] [id number] [place] [address] July, [facility] [place] [facility] [address] [id number] [place] [address] July, [facility] [place] [facility] [address] [id number] [place] [address] July, [facility] [place] [facility] [address] [id number] [place] [address] July, [facility] [place] [facility] [address] [id number] [place] [address] July, [facility] [place] [facility] [address] [id number] [place] [address] July, [facility] [place] [facility] [address] [id number] [place] [address] Jun, [facility] [place] [facility] [address] [id number] [place] [address] Jun, [facility] [place] [facility] [address] [id number] [place] [address] Jun, [facility] [place] [facility] [address] [id number] [place] [address] Jun, [facility] [place] [facility] [address] [id number] [place] [address] May, [facility] [place] [facility] [address] [id number] [place] [address] May, [facility] [place] [facility] [address] [id number] [place] [address] Apr, [facility] [place] [facility] [address] [id number] [place] [address] Apr, [facility] [place] [facility] [address] [id number] [place] [address] Apr, [facility] [place] [facility] [address] [id number] [place] [address] Apr, [facility] [place] [facility] [address] [id number] [place] [address] Mar, [facility] [place] [facility] [address] [id number] [place] [address] Mar, [facility] [place] [facility] [address] [id number] [place] [address] Mar, [facility] [place] [facility] [address] [id number] [place] [address] Mar, [facility] [place] [facility] [address] [id number] [place] [address] Mar, [facility] [place] [facility] [address] [id number] [place] [address] Mar, [facility] [place] [facility] [address] [id number] [place] [address] Feb, [facility] [place] [facility] [address] [id number] [place] [address] Feb, [facility] [place] [facility] [address] [id number] [place] [address] Jan, [facility] [place] [facility] [address] [id number] [place] [address] Jan, [facility] [place] [facility] [address] [id number] [place] [address] Jan, [facility] [place] [facility] [address] [id number] [place] [address] Jan, [facility] [place] [facility] [address] [id number] [place] [address] Nov, [facility] [place] [facility] [address] [id number] [place] [address] Nov, [facility] [place] [facility] [address] [id number] [place] [address] Oct, [facility] [address] [id number] [place] [address] Oct, [facility] [place] [facility] [address] [id number] [place] [address] Sep, [facility] [place] [address] [id number] [place] [address] Sep, [facility] [address] [id number] [place] [address] Sep, [facility] [address] [id number] [place] [address] Aug, [facility] [place] [facility] [address] [id number] [place] [address] Aug, [facility] [place] [facility] [address] [id number] [place] [address] Aug, [facility] [place] [facility] [address] [id number] [place] [address] Aug, [facility] [place] [facility] [address] [id number] [place] [address] July, [facility] [place] [facility] [address] [id number] [place] [address] July, [facility] [place] [facility] [address] [id number] [place] [address] July, [facility] [place] [facility] [address] [id number] [address] July, [facility] [address] [id number] [place] [address] Jun, [facility] [address] [id number] [place] [address] Jun, [facility] [address] [id number] [place] [address] Jun, [facility] [address] [id number] [place] [address] May, [facility] [address] [id number] [place] [address] May, [facility] [address] [id number] [place] [address] Apr, [facility] [address] [id number] [place] [address] Apr, [facility] [address] [id number] [place] [address] Apr, [facility] [address] [id number] [place] [address] Apr, [facility] [address] [facility] [id number] [place] [address] Mar, [facility] [address] [id number] [place] [address] Mar, [facility] [place] [facility] [address] [id number] [place] [address] Mar, [facility] [place] [facility] [address] [id number] [place] [address] Mar, [facility] [place] [facility] [address] [id number] [place] [address] Feb, [facility] [address] [facility] [id number] [place] [address] Feb, [facility] [place] [facility] [address] [id number] [place] [address] 10 Feb, 2012 [facility] [place] [facility] [address] [id number] [place] [address] 10 Feb, 2012 [facility] [place] [facility] [address] [id number] [place] [address] 10 Feb, 2012 [facility] [place] [facility] [address] [id number] [place] [address] 06 Feb, 2012 [facility] [place] [facility] [address] [id number] [place] [address] 04 Feb, 2012 [facility] [place] [facility] [address] [id number] [place] [address] 04 Feb, 2012 [facility] [place] [facility] [address] [id number] [place] [address] 28 Jan, 2012 [facility] [place] [facility] [address] [id number] [place] [address] 28 Jan, 2012 [facility] [place] [facility] [address] [id number] [place] [address] 15 Jan, 2012 [facility] [place] [facility] [address] [id number] [place] [address] 15 Jan, 2012 [facility] [place] [facility] [address] [id number] [place] [address] 14 Jan, 2012 [facility] [place] [facility] [address] [id number] [place] [address] 13 Jan, 2012 [facility] [place] [facility] [address] [id number] [place] [address] 13 Jan, 2012 [facility] [place] [facility] [address] [id number] [place] [address] 12 Jan, 2012 [facility] [place] [facility] [address] [id number] [place] [address] 12 Jan, 2012 [facility] [place] [facility] [address] [id number] [place] [address] Jan, [facility] [place] [facility] [address] [id number] [place] [address] Jan, [facility] [place] [facility] [address] [id number] [place] [address] Dec, [facility] [place] [facility] [address] [facility] [id number] [place] [address] Dec, [facility] [place] [facility] [address] [id number] [place] [address] Dec, [facility] [place] [facility] [address] [id number] [place] [address] Dec, [facility] [place] [facility] [address] [id number] [place] [address] Dec, [facility] [place] [facility] [address] [id number] [place] [address] Dec, [facility] [place] [facility] [address] [id number], [place] [address] Dec, [facility] [place] [facility] [address] [id number], [place] [address] Dec, [facility] [place] [facility] [address] [facility] [id number], [place] [address] Dec, [facility] [place] [facility] [address] [id number], [place] [address] Dec, [facility] [place] [facility] [address] [id number], [place] [address] Dec, [facility] [place] [facility] [address] [id number], [place] [address] Dec, [facility] [place] [facility] [address] [facility] [id number], [place] [address] Nov, [facility] [place] [facility] [address] [facility] [id number], [place] [address] Oct, [facility] [place] [facility] [address] [id number] [place] [address] Oct, [facility] [address] [id number] [place] [address] Oct, [facility] [address] [id number] [place] [address] Oct, [facility] [address] [id number] [place] [address] Sep, [facility] [address] [id number] [place] [address] Sep, [facility] [address] [id number] [place] [address] Sep, [facility] [address] [id number] [place] [address] Sep, [facility] [address] [facility] [id number] [place] [address] Aug, [facility] [address] [id number] [place] [address] Aug, [facility] [address] [facility] [id number] [place] [address] Aug, [facility] [address] [facility] [id number] [place] [address] Aug, [facility] [address] [facility] [id number] [place] [address] Aug, [facility] [address] [id number] [place] [address] July, [facility] [address] [id number] [place] [address] July, [facility] [address] [facility] [id number] [place] [address] July, [facility] [address] [id number] [place] [address] Dec, IMMUNIZATIONS No Known Immunizations SOCIAL HISTORY Never Assessed REASON FOR VISIT EMR-[facility] [place] PLAN OF CARE VITAL SIGNS MEDICATIONS Unknown [...]
--- OUTSIDE RECORDS SUMMARY | 2018-10-24 12:11 | XMS REPORT ---
Author Author Migration, Doctor Organization [facility] Address Unknown Phone Unavailable Care Team Providers [employer] Hand Name Role Phone Migration, Doctor Unavailable Unavailable PROBLEMS Type Condition ICD9-CM Code ZAW62-NM Code Onset Dates Condition Status SNOMED Code Problem Chronic periodontal disease K05.6 Active 3415094 Problem MRSA (methicillin resistant staph aureus) culture positive Z22.322 Active 959237071 Problem Major depressive disorder F32.9 Active 176740092 Problem Interstitial cystitis N30.10 Active 692429262 Problem Generalized anxiety disorder F41.1 Active 579871979 Problem Epilepsy G40.909 Active 25514256 Problem Fibromyalgia M79.7 Active 02836795 Problem Irritable bowel syndrome without diarrhea K58.9 Active 25043739 Problem Tinnitus of both ears H93.13 Active 9478026103715 Problem Menopausal symptoms N95.1 Active 40262727 Problem Lumbago M54.5 Active 593614674 Problem COPD exacerbation J44.1 Active 440068892 Problem Esophageal reflux K21.9 Active 128970190 Problem Chronic obstructive pulmonary disease, unspecified COPD type J44.9 Active 56461548 Problem On antiepileptic therapy Z79.899 Active 500533805 Problem Vitamin D deficiency E55.9 Active 87708568 Problem Irritable bowel syndrome with diarrhea K58.0 Active 708758834 ALLERGIES No Information ENCOUNTERS Encounter Location Date Diagnosis [facility] [address] [id number], [place] [address] Jun, [facility] [address] [facility] [id number] [address] May, Fibromyalgia M79.7 [facility] [id number] [address] Apr, [facility] [address] [facility] [id number], [place] [address] Mar, Fibromyalgia M79.7 [facility] [id number] [place] [address] Feb, Fibromyalgia M79.7 [facility] [address] [address] Feb, Acute cystitis with hematuria N30.01 [facility] [id number] [place] [address] Feb, Acute cystitis with hematuria N30.01 ; COPD exacerbation J44.1 ; Interstitial cystitis N30.10 ; Nausea R11.0 and Rectal bleeding K62.5 [facility] [id number] [place] [address], [place] [address] Jan, Fibromyalgia M79.7 [facility] [id number] [place] [id number] Dec, [facility] [id number] [place] [id number] Dec, [facility] [place] [facility] [id number] [place] [address] Dec, Fibromyalgia M79.7 [facility] [id number] [place] [address] Dec, [facility] [place] [facility] [id number] [place] [address] Oct, [facility] [id number] [place] [id number] Oct, [facility] [place] [facility] [id number] [place] [address] Oct, [facility] [place] [facility] [id number] [place] [address] Sep, [facility] [place] [facility] [id number] [place] [address] Sep, [facility] [place] [facility] [id number] [place] [address] Sep, [facility] [place] [facility] [address] [id number] Aug, Dental examination Z01.20 [facility] [id number] [place] [address] Aug, Abscess of axilla, left L02.412 [facility] [id number] [place] [address] 08 Aug, 2017 Esophageal reflux K21.9 [facility] [id number] [place] [address] Aug, [facility] [id number] [place] [address] Aug, Esophageal reflux K21.9 ; Fluid level behind tympanic membrane of right ear H65.91 ; Fibromyalgia M79.7 and Lumbago M54.5 [facility] [id number] [place] [address] Aug, Esophageal reflux K21.9 [facility] [id number] [place] [address] July, [facility] [id number] [place] [address] July, [facility] [id number] [place] [address] July, Chronic obstructive pulmonary disease, unspecified COPD type J44.9 [facility] [id number] [place] [address] July, [facility] [id number] [place] [address] July, [facility] [id number] [place] [address] July, Interstitial cystitis N30.10 ; Fibromyalgia M79.7 [...] Dysuria R30.0 and Generalized anxiety disorder F41.1 [facility] [id number] [place] [address] Jun, [facility] [address] [address] Jun, Chronic obstructive pulmonary disease, unspecified COPD type J44.9 ; COPD exacerbation J44.1 and Sore throat J02.9 [facility] [address] [address] Jun, Fibromyalgia M79.7 [facility] [id number] [place] [address] Jun, Fibromyalgia M79.7 [facility] [id number] [place] [address] May, [facility] [id number] [place] [address] May, [facility] [id number] [place] [address] May, Fibromyalgia M79.7 [facility] [id number] [place] [address] Mar, [facility] [id number] [place] [address] Mar, Epilepsy G40.909 ; Lumbago M54.5 ; Esophageal reflux K21.9 ; Fibromyalgia M79.7 ; Chronic obstructive pulmonary disease, unspecified COPD type J44.9 ; Vitamin D deficiency E55.9 ; Fluid level behind tympanic membrane of right ear H65.91 ; Irritable bowel syndrome with diarrhea K58.0 ; Hematochezia K92.1 and Generalized anxiety disorder F41.1 [facility] [address] [id number] [address] Mar, [facility] [id number] [place] [address] Mar, [facility] [id number] [place] [address] Mar, Vitamin D deficiency E55.9 [facility] [id number] [place] [address] Feb, [facility] [id number] [place] [address] Feb, [facility] [id number] [place] [address] Jan, Fibromyalgia M79.7 [facility] [id number] [place] [address] Jan, [facility] [id number] [place] [address] Jan, [facility] [id number] [place] [address] Jan, Vitamin D deficiency E55.9 [facility] [id number] [place] [address] Dec, [facility] [id number] [place] [address] Dec, [facility] [id number] [place] [address] Dec, Generalized anxiety disorder F41.1 [facility] [id number] [place] [address] Dec, Dysuria R30.0 ; Acute bilateral low back pain without sciatica M54.5 and Encounter for immunization Z23 [facility] [address], [place] [address] Oct, [facility] [address], [place] [address] Oct, Fibromyalgia M79.7 [facility] [id number] [place] [address] Sep, Dysuria R30.0 and Acute bronchitis, unspecified organism J20.9 [facility] [id number] [place] [address] Sep, [facility] [id number] [place] [address] Sep, Rectal prolapse K62.3 [facility] [id number] [place] [address] Sep, Chronic obstructive pulmonary disease, unspecified COPD type J44.9 [facility] [address] [id number] Aug, [facility] [address] [id number] Aug, [facility] [id number] [place] [address] Aug, Light headedness R42 ; On antiepileptic therapy Z79.899 ; Vitamin D deficiency E55.9 ; Screening for lipid disorders Z13.220 ; Dysuria R30.0 and Hemorrhoids, unspecified hemorrhoid type K64.9 [facility] [facility] [address] [place] [address] Aug, Internal prolapsed hemorrhoids K64.8 [facility] [id number] [place] [address] July, [facility] [id number] [place] [address] May, [facility] [id number] [place] [address] May, Fever and chills R50.9 and Influenza B J10.1 [facility] [address] [place] [address] 16 Apr, 2016 [facility] [address] [address] Apr, Fibromyalgia M79.7 and Generalized anxiety disorder F41.1 [facility] [id number] [place] [address] Mar, Esophageal reflux K21.9 ; Generalized anxiety disorder F41.1 and Epilepsy G40.909 [facility] [id number] [place] [address] 13 Mar, 2016 Epilepsy G40.909 ; Esophageal [...] therapy Z79.899 [facility] [id number] [place] [address] Feb, [address] [place] [address] Feb, [facility] [id number] [place] [address] Feb, Dysuria R30.0 and Plantar fasciitis of right foot M72.2 [facility] [id number] [place] [address] Feb, [facility] [address] [address] Feb, [facility] [id number] [place] [address] Jan, [facility] [id number] [place] [address] Jan, [facility] [address], [place] [address] Dec, [facility] [id number] [place] [address] Dec, [facility] [id number] [place] [address] Dec, [facility] [address] [address] Nov, [facility] [id number] [place] [address] Sep, [facility] [id number] [place] [address] Aug, Shortness of breath R06.02 and Acute suppurative otitis media of right ear without spontaneous rupture of tympanic membrane, recurrence not specified H66.001 [facility] [id number] [place] [address] Aug, Internal prolapsed hemorrhoids K64.8 [facility] [id number] [place] [address] Jun, 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 [facility] [id number] [place] [address] May, Fibromyalgia M79.7 ; Interstitial cystitis N30.10 ; Intractable migraine without aura and without status migrainosus G43.019 ; Low vitamin D level E55.9 and Ringing in right ear H93.11 [facility] [address] [place] [address] May, [facility] [id number] [place] [address] May, Low vitamin D level E55.9 [facility] [id number] [place] [address] Apr, [facility] [id number] [place] [address] Mar, [facility] [address] [address] Mar, Acute suppurative otitis media of right ear without spontaneous rupture of tympanic membrane, recurrence not specified H66.001 ; Encounter for immunization Z23 ; Asthma with acute exacerbation, unspecified asthma severity J45.901 ; Memory problem R41.3 ; Acute pain of right knee M25.561 ; Chronic fatigue R53.82 and Excessive urinary volume R35.8 [facility] [address] [address] Feb, [facility] [facility] [address] [address] Feb, [facility] [address] [address] Jan, [facility] [address] [address] Nov, Esophageal reflux 530.81 ; Anxiety 300.00 and Tingling in extremities 782.0 [facility] [id number] [place] [address] Oct, [facility] [address] [address] Oct, [facility] [address] [address] Oct, [facility] [address] [address] Oct, [facility] [address] [address] Oct, [facility] [id number] [place] [address] Sep, Other chronic allergic conjunctivitis 372.14 ; Irritable bowel syndrome 564.1 ; 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 ; Fibromyalgia 729.1 ; Extremity pain 729.5 and Neck pain 723.1 [facility] [id number] [place] [address] Sep, [facility] [id number] [place] [address] Aug, [facility] [id number] [place] [address] Aug, [facility] [id number] [place] [address] July, Vomiting 787.03 [facility] [id number] [place] [address] [id number] July, Dental examination V72.2 [facility] [id number] [place] [address] Jun, [facility] [id number] [place] [address] Jun, [facility] [address] [place] [address] May, [facility] [id number] [place] [address] May, [facility] [address] [place] [address] May, [facility] [id number] [place] [address] May, [facility] [id number] [place] [address] May, [facility] [id number] [place] [address] May, [facility] [address], [place] [address] May, [facility] [id number] [place] [address] May, [facility] [place] [facility] [address] [id number] [place] [address] May, [facility] [place] [facility] [address] [id number] [place] [address] Apr, 2014 [facility] [place] [facility] [address] [id number] [place] [address] Apr, 2014 [facility] [place] [facility] [address] [id number] [place] [address] Apr, 2014 [facility] [place] [facility] [address] [id number] [place] [address] Apr, [facility] [place] [facility] [address] [id number] [place] [address] Apr, [facility] [place] [facility] [address] [id number] [place] [address] Apr, [facility] [place] [facility] [address] [id number] [place] [address] Mar, [facility] [place] [facility] [address] [id number] [place] [address] Mar, [facility] [place] [facility] [address] [facility] [id number] [place] [address] Mar, [facility] [place] [facility] [address] [id number] [place] [address] Mar, [facility] [place] [facility] [address] [id number], [place] [address] Mar, [facility] [place] [facility] [address] [id number] [place] [address] Mar, [facility] [place] [facility] [address] [facility] [id number] [place] [address] Mar, [facility] [place] [facility] [address] [id number] [place] [address] Mar, [facility] [place] [facility] [address] [id number] [place] [address] Mar, [facility] [address] [id number] [place] [address] Mar, [facility] [place] [facility] [address] [id number] [place] [address] Mar, [facility] [place] [facility] [address] [id number] [place] [address] Mar, [facility] [address] [id number] [place] [address] Mar, [facility] [place] [facility] [address] [id number] [place] [address] Mar, [facility] [address] [id number] [place] [address] Mar, [facility] [address] [id number] [place] [address] Mar, [facility] [address] [id number] [place] [address] Mar, [facility] [address] [id number] [place] [address] Mar, [facility] [place] [facility] [address] [id number] [place] [address] Mar, [facility] [place] [facility] [address] [id number] [place] [address] Feb, [facility] [place] [facility] [address] [id number] [place] [address] Feb, [facility] [place] [facility] [address] [id number] [place] [address] Feb, [facility] [place] [facility] [address] [id number] [place] [address] Feb, [facility] [place] [facility] [address] [id number] [place] [address] Jan, [facility] [place] [facility] [address] [id number] [place] [address] Jan, [facility] [place] [facility] [address] [id number] [place] [address] Jan, [facility] [place] [facility] [address] [id number] [place] [address] Jan, [facility] [place] [facility] [address] [id number] [place] [address] Jan, [facility] [place] [facility] [address] [id number] [place] [address] Jan, [facility] [place] [facility] [address] [id number] [place] [address] Jan, [facility] [place] [facility] [address] [id number] [place] [address] Jan, [facility] [place] [facility] [address] [id number] [place] [address] Dec, [facility] [place] [facility] [address] [id number] [place] [address] Dec, [facility] [place] [facility] [address] [id number] [place] [address] Dec, [facility] [place] [facility] [address] [id number] [place] [address] Dec, [facility] [place] [facility] [address] [id number] [place] [address] 22 Nov, 2013 [facility] [place] [facility] [address] [id number] [place] [address] 22 Nov, 2013 [facility] [place] [facility] [address] [id number] [place] [address] 08 Nov, 2013 [facility] [place] [facility] [address] [id number] [place] [address] 08 Nov, 2013 [facility] [place] [facility] [address] [id number] [place] [address] 05 Sep, 2013 [facility] [place] [facility] [address] [id number] [place] [address] 05 Sep, 2013 [facility] [place] [facility] [address] [id number] [place] [address] 04 Nov, 2013 [facility] [place] [facility] [address] [id number] [place] [address] 04 Nov, 2013 [facility] [place] [facility] [address] [id number] [place] [address] 03 Nov, 2013 [facility] [place] [facility] [address] [id number] [place] [address] Nov, 2013 [facility] [place] [facility] [address] [id number] [place] [address] Oct, [facility] [place] [facility] [address] [id number] [place] [address] Oct, [facility] [place] [facility] [address] [id number] [place] [address] Sep, [facility] [place] [facility] [address] [id number] [place] [address] Sep, [facility] [place] [facility] [address] [id number] [place] [address] Sep, [facility] [place] [facility] [address] [id number] [place] [address] Sep, [facility] [place] [facility] [address] [id number] [place] [address] Sep, [facility] [place] [facility] [address] [id number] [place] [address] Sep, [facility] [place] [facility] [address] [id number] [place] [address] Aug, [facility] [place] [facility] [address] [id number] [place] [address] Aug, [facility] [place] [facility] [address] [id number] [place] [address] Aug, [facility] [place] [facility] [address] [id number] [place] [address] Aug, [facility] [place] [facility] [address] [id number] [place] [address] Aug, [facility] [place] [facility] [address] [id number] [place] [address] Aug, [facility] [place] [facility] [address] [id number] [place] [address] July, [facility] [place] [facility] [address] [id number] [place] [address] July, [facility] [place] [facility] [address] [id number] [place] [address] July, [facility] [place] [facility] [address] [id number] [place] [address] July, [facility] [place] [facility] [address] [id number] [place] [address] July, [facility] [place] [facility] [address] [id number] [place] [address] July, [facility] [place] [facility] [address] [id number] [place] [address] Jun, [facility] [place] [facility] [address] [id number] [place] [address] Jun, [facility] [place] [facility] [address] [id number] [place] [address] Jun, [facility] [place] [facility] [address] [id number] [place] [address] Jun, [facility] [place] [facility] [address] [id number] [place] [address] May, [facility] [place] [facility] [address] [id number] [place] [address] May, [facility] [place] [facility] [address] [id number] [place] [address] Apr, [facility] [place] [facility] [address] [id number] [place] [address] Apr, [facility] [place] [facility] [address] [id number] [place] [address] Apr, [facility] [place] [facility] [address] [id number] [place] [address] Apr, [facility] [place] [facility] [address] [id number] [place] [address] Mar, [facility] [place] [facility] [address] [id number] [place] [address] Mar, [facility] [place] [facility] [address] [id number] [place] [address] Mar, [facility] [place] [facility] [address] [id number] [place] [address] Mar, [facility] [place] [facility] [address] [id number] [place] [address] Mar, [facility] [place] [facility] [address] [id number] [place] [address] Mar, [facility] [place] [facility] [address] [id number] [place] [address] Feb, [facility] [place] [facility] [address] [id number] [place] [address] Feb, [facility] [place] [facility] [address] [id number] [place] [address] Jan, [facility] [place] [facility] [address] [id number] [place] [address] Jan, [facility] [place] [facility] [address] [id number] [place] [address] Jan, [facility] [place] [facility] [address] [id number] [place] [address] Jan, [facility] [place] [facility] [address] [id number] [place] [address] Nov, [facility] [place] [facility] [address] [id number] [place] [address] Nov, [facility] [place] [facility] [address] [id number] [place] [address] Oct, [facility] [address] [id number] [place] [address] Oct, [facility] [place] [facility] [address] [id number] [place] [address] Sep, [facility] [address] [id number] [place] [address] Sep, [facility] [address] [id number] [place] [address] Sep, [facility] [address] [id number] [place] [address] Aug, [facility] [place] [facility] [address] [id number] [place] [address] Aug, [facility] [place] [facility] [address] [id number] [place] [address] Aug, [facility] [place] [facility] [address] [id number] [place] [address] Aug, [facility] [place] [facility] [address] [id number] [place] [address] July, [facility] [place] [facility] [address] [id number] [place] [address] July, [facility] [place] [facility] [address] [id number] [place] [address] July, [facility] [place] [facility] [address] [id number], [place] [address] July, [facility] [address] [id number] [place] [address] Jun, [facility] [address] [id number] [place] [address] Jun, [facility] [address] [id number] [place] [address] Jun, [facility] [address] [id number] [place] [address] May, [facility] [address] [id number] [place] [address] May, [facility] [address] [id number] [place] [address] Apr, [facility] [address] [id number] [place] [address] Apr, [facility] [address] [id number] [place] [address] Apr, [facility] [address] [id number] [place] [address] Apr, [facility] [address] [facility] [id number] [place] [address] Mar, [facility] [address] [id number] [place] [address] Mar, [facility] [place] [facility] [address] [id number] [place] [address] Mar, [facility] [place] [facility] [address] [id number] [place] [address] Mar, [facility] [place] [facility] [address] [id number] [place] [address] Feb, [facility] [address] [facility] [id number] [place] [address] Feb, [facility] [place] [facility] [address] [id number] [place] [address] 10 Feb, 2012 [facility] [place] [facility] [address] [id number] [place] [address] 10 Feb, 2012 [facility] [place] [facility] [address] [id number] [place] [address] 10 Feb, 2012 [facility] [place] [facility] [address] [id number] [place] [address] 06 Feb, 2012 [facility] [place] [facility] [address] [id number] [place] [address] 04 Feb, 2012 [facility] [place] [facility] [address] [id number] [place] [address] 04 Feb, 2012 [facility] [place] [facility] [address] [id number] [place] [address] 28 Jan, 2012 [facility] [place] [facility] [address] [id number] [place] [address] 28 Jan, 2012 [facility] [place] [facility] [address] [id number] [place] [address] 15 Jan, 2012 [facility] [place] [facility] [address] [id number] [place] [address] 15 Jan, 2012 [facility] [place] [facility] [address] [id number] [place] [address] 14 Jan, 2012 [facility] [place] [facility] [address] [id number] [place] [address] 13 Jan, 2012 [facility] [place] [facility] [address] [id number] [place] [address] 13 Jan, 2012 [facility] [place] [facility] [address] [id number] [place] [address] 12 Jan, 2012 [facility] [place] [facility] [address] [id number] [place] [address] 12 Jan, 2012 [facility] [place] [facility] [address] [id number] [place] [address] Jan, [facility] [place] [facility] [address] [id number] [place] [address] Jan, [facility] [place] [facility] [address] [id number] [place] [address] Dec, [facility] [place] [facility] [address] [facility] [id number] [place] [address] Dec, [facility] [place] [facility] [address] [id number] [place] [address] Dec, [facility] [place] [facility] [address] [id number] [place] [address] Dec, [facility] [place] [facility] [address] [id number] [place] [address] Dec, [facility] [place] [facility] [address] [id number] [place] [address] Dec, [facility] [place] [facility] [address] [id number], [place] [address] Dec, [facility] [place] [facility] [address] [id number], [place] [address] Dec, [facility] [place] [facility] [address] [facility] [id number], [place] [address] Dec, [facility] [place] [facility] [address] [id number], [place] [address] Dec, [facility] [place] [facility] [address] [id number], [place] [address] Dec, [facility] [place] [facility] [address] [id number], [place] [address] Dec, [facility] [place] [facility] [address] [facility] [id number], [place] [address] Nov, [facility] [place] [facility] [address] [facility] [id number], [place] [address] Oct, [facility] [place] [facility] [address] [id number] [place] [address] Oct, [facility] [address] [id number] [place] [address] Oct, [facility] [address] [id number] [place] [address] Oct, [facility] [address] [id number] [place] [address] Sep, [facility] [address] [id number] [place] [address] Sep, [facility] [address] [id number] [place] [address] Sep, [facility] [address] [id number] [place] [address] Sep, [facility] [address] [facility] [id number] [place] [address] Aug, [facility] [address] [id number] [place] [address] Aug, [facility] [address] [facility] [id number] [place] [address] Aug, [facility] [address] [facility] [id number] [place] [address] Aug, [facility] [address] [facility] [id number] [place] [address] Aug, [facility] [address] [id number] [place] [address] July, [facility] [address] [id number] [place] [address] July, [facility] [address] [facility] [id number] [place] [address] July, [facility] [address] [id number] [place] [address] Dec, IMMUNIZATIONS No Known Immunizations SOCIAL HISTORY Never Assessed REASON FOR VISIT [place] [place] V[place] SIGNS [...]
--- OUTSIDE RECORDS SUMMARY | 2018-10-24 12:12 | XMS REPORT ---
Author Author Migration, Doctor Organization [facility] Address Unknown Phone Unavailable Care Team Providers Care Cotton Wringer Name Role Phone Migration, Doctor Unavailable Unavailable PROBLEMS Type Condition ICD9-CM Code FCD08-PO Code Onset Dates Condition Status SNOMED Code Problem Chronic periodontal disease K05.6 Active 8519670 Problem MRSA (methicillin resistant staph aureus) culture positive Z22.322 Active 996630656 Problem Major depressive disorder F32.9 Active 351996396 Problem Interstitial cystitis N30.10 Active 411588722 Problem Generalized anxiety disorder F41.1 Active 412428864 Problem Epilepsy G40.909 Active 97725474 Problem Fibromyalgia M79.7 Active 96937456 Problem Irritable bowel syndrome without diarrhea K58.9 Active 18313673 Problem Tinnitus of both ears H93.13 Active 1166763553472 Problem Menopausal symptoms N95.1 Active 35678058 Problem Lumbago M54.5 Active 600684890 Problem COPD exacerbation J44.1 Active 925657360 Problem Esophageal reflux K21.9 Active 791229255 Problem Chronic obstructive pulmonary disease, unspecified COPD type J44.9 Active 57916638 Problem On antiepileptic therapy Z79.899 Active 414285550 Problem Vitamin D deficiency E55.9 Active 18560538 Problem Irritable bowel syndrome with diarrhea K58.0 Active 604589990 ALLERGIES No Information ENCOUNTERS Encounter Location Date Diagnosis [facility] [address] [id number], [place] [address] Jun, [facility] [address] [facility] [id number], [place] [address] May, Fibromyalgia M79.7 [facility] [address] [id number], [place] [address] Apr, [facility] [address] [facility] [id number], [place] [address] Mar, Fibromyalgia M79.7 [facility] [id number] [place] [address] Feb, Fibromyalgia M79.7 [facility] [address] [address] Feb, Acute cystitis with hematuria N30.01 [facility] [id number] [place] [address] Feb, Acute cystitis with hematuria N30.01 ; COPD exacerbation J44.1 ; Interstitial cystitis N30.10 ; Nausea R11.0 and Rectal bleeding K62.5 [facility] [id number] [place] [address], [place] [address] Jan, Fibromyalgia M79.7 [facility] [id number] [place] [id number] Dec, [facility] [id number] [place] [address] [id number] Dec, [facility] [place] [facility] [id number] [place] [address] Dec, Fibromyalgia M79.7 [facility] [id number] [place] [address] Dec, [facility] [place] [facility] [id number] [place] [address] Oct, [facility] [id number] [place] [id number] Oct, [facility] [place] [facility] [id number] [place] [address] Oct, [facility] [place] [facility] [id number] [place] [address] Sep, [facility] [place] [facility] [id number] [place] [address] Sep, [facility] [place] [facility] [id number] [place] [address] Sep, [facility] [place] [facility] [address] [id number] Aug, Dental examination Z01.20 [address] [facility] [id number] [place] [address] Aug, Abscess of axilla, left L02.412 [address] [facility] [id number] [place] [address] 08 Aug, 2017 Esophageal reflux K21.9 [facility] [facility] [id number] [place] [address] Aug, [facility] [facility] [id number] [place] [address] Aug, Esophageal reflux K21.9 ; Fluid level behind tympanic membrane of right ear H65.91 ; Fibromyalgia M79.7 and Lumbago M54.5 [facility] [facility] [id number] [place] [address] Aug, Esophageal reflux K21.9 [place] [facility] [id number] [place] [address] July, [place] [facility] [id number] [place] [address] July, [facility] [id number] [place] [address] July, Chronic obstructive pulmonary disease, unspecified COPD type J44.9 [place] [id number] [place] [address] July, [facility] [id number] [place] [address] July, [facility] [id number] [place] [address] July, Interstitial cystitis N30.10 ; Fibromyalgia M79.7 [...] Dysuria R30.0 and Generalized anxiety disorder F41.1 [place] [id number] [place] [address] Jun, [place] [address] [address] Jun, Chronic obstructive pulmonary disease, unspecified COPD type J44.9 ; COPD exacerbation J44.1 and Sore throat J02.9 [place] [address] [address] Jun, Fibromyalgia M79.7 [facility] [facility] [id number] [place] [address] Jun, Fibromyalgia M79.7 [place] [facility] [id number] [place] [address] May, [place] [facility] [id number] [place] [address] May, [place] [facility] [id number] [place] [address] May, Fibromyalgia M79.7 [place] [id number] [place] [address] Mar, [place] [facility] [id number] [place] [address] Mar, Epilepsy G40.909 ; Lumbago M54.5 ; Esophageal reflux K21.9 ; Fibromyalgia M79.7 ; Chronic obstructive pulmonary disease, unspecified COPD type J44.9 ; Vitamin D deficiency E55.9 ; Fluid level behind tympanic membrane of right ear H65.91 ; Irritable bowel syndrome with diarrhea K58.0 ; Hematochezia K92.1 and Generalized anxiety disorder F41.1 [place] [facility] [address] [id number] [address] Mar, [facility] [id number] [place] [address] Mar, [facility] [id number] [place] [address] Mar, Vitamin D deficiency E55.9 [facility] [id number] [place] [address] Feb, [facility] [id number] [place] [address] Feb, [facility] [id number] [place] [address] Jan, Fibromyalgia M79.7 [facility] [id number] [place] [address] Jan, [facility] [id number] [place] [address] Jan, [facility] [id number] [place] [address] Jan, Vitamin D deficiency E55.9 [facility] [id number] [place] [address] Dec, [facility] [id number] [place] [address] Dec, [facility] [id number] [place] [address] Dec, Generalized anxiety disorder F41.1 [facility] [id number] [place] [address] Dec, Dysuria R30.0 ; Acute bilateral low back pain without sciatica M54.5 and Encounter for immunization Z23 [facility] [address], [place] [address] Oct, [facility] [address] [id number], [place] [address] Oct, Fibromyalgia M79.7 [facility] [id number] [place] [address] Sep, Dysuria R30.0 and Acute bronchitis, unspecified organism J20.9 [facility] [id number] [place] [address] Sep, [facility] [id number] [place] [address] Sep, Rectal prolapse K62.3 [place] [id number] [place] [address] Sep, Chronic obstructive pulmonary disease, unspecified COPD type J44.9 [facility] [address] [id number] Aug, [facility] [address] [id number] Aug, [facility] [id number] [place] [address] Aug, Light headedness R42 ; On antiepileptic therapy Z79.899 ; Vitamin D deficiency E55.9 ; Screening for lipid disorders Z13.220 ; Dysuria R30.0 and Hemorrhoids, unspecified hemorrhoid type K64.9 [id number] [place] [address] Aug, Internal prolapsed hemorrhoids K64.8 [address] [address] [place] [address] July, [facility] [id number] [place] [address] May, [facility] [id number] [place] [address] May, Fever and chills R50.9 and Influenza B J10.1 [address] [place] [address] 16 Apr, 2016 [facility] [address] [address] Apr, Fibromyalgia M79.7 and Generalized anxiety disorder F41.1 [facility] [id number] [place] [address] Mar, Esophageal reflux K21.9 ; Generalized anxiety disorder F41.1 and Epilepsy G40.909 [facility] [id number] [place] [address] 13 Mar, 2016 Epilepsy G40.909 ; Esophageal [...] disorders Z13.220 and On antiepileptic therapy Z79.899 [facility] [id number] [place] [address] Feb, [address] [place] [address] [address] Feb, [facility] [id number] [place] [address] Feb, Dysuria R30.0 and Plantar fasciitis of right foot M72.2 [facility] [id number] [place] [address] Feb, [facility] [address] [address] Feb, [facility] [id number] [place] [address] Jan, [facility] [id number] [place] [address] Jan, [facility] [address], [place] [address] Dec, [facility] [id number] [place] [address] Dec, [facility] [id number] [place] [address] Dec, [facility] [address] [address] Nov, [facility] [id number] [place] [address] Sep, [facility] [id number] [place] [address] Aug, Shortness of breath R06.02 and Acute suppurative otitis media of right ear without spontaneous rupture of tympanic membrane, recurrence not specified H66.001 [facility] [id number] [place] [address] Aug, Internal prolapsed hemorrhoids K64.8 [place] [id number] [place] [address] Jun, 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 [place] [id number] [place] [address] May, Fibromyalgia M79.7 ; Interstitial cystitis N30.10 ; Intractable migraine without aura and without status migrainosus G43.019 ; Low vitamin D level E55.9 and Ringing in right ear H93.11 [facility] [address] [place] [address] May, [place] [id number] [place] [address] May, Low vitamin D level E55.9 [facility] [id number] [place] [address] Apr, [facility] [id number] [place] [address] Mar, [facility] [address] [address] Mar, Acute suppurative otitis media of right ear without spontaneous rupture of tympanic membrane, recurrence not specified H66.001 ; Encounter for immunization Z23 ; Asthma with acute exacerbation, unspecified asthma severity J45.901 ; Memory problem R41.3 ; Acute pain of right knee M25.561 ; Chronic fatigue R53.82 and Excessive urinary volume R35.8 [facility] [address] [address] Feb, [place] [address] [address] Feb, [place] [address] [address] Jan, [facility] [address] [address] Nov, Esophageal reflux 530.81 ; Anxiety 300.00 and Tingling in extremities 782.0 [facility] [id number] [place] [address] Oct, [facility] [address] [address] Oct, [facility] [address] [address] Oct, [facility] [address] [address] Oct, [facility] [address] [address] Oct, [facility] [id number] [place] [address] Sep, Other chronic allergic conjunctivitis 372.14 ; Irritable bowel syndrome 564.1 ; 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 [id number] [place] [address] [id number] July, Dental examination V72.2 [facility] [id number] [place] [address] Jun, [facility] [id number] [place] [address] Jun, [facility] [address] [place] [address] May, [facility] [id number] [place] [address] May, [facility] [address] [place] [address] May, [facility] [id number] [place] [address] May, [facility] [address] [place] [address] May, [facility] [id number] [place] [address] May, [facility] [address], [place] [address] May, [facility] [id number] [place] [address] May, [facility] [place] [facility] [address] [id number] [place] [address] May, [facility] [place] [facility] [address] [id number] [place] [address] Apr, 2014 [facility] [place] [facility] [address] [id number] [place] [address] Apr, 2014 [facility] [place] [facility] [address] [id number] [place] [address] Apr, 2014 [facility] [place] [facility] [address] [id number] [place] [address] Apr, [facility] [place] [facility] [address] [id number] [place] [address] Apr, [facility] [place] [facility] [address] [id number] [place] [address] Apr, [facility] [place] [facility] [address] [id number] [place] [address] Mar, [facility] [place] [facility] [address] [id number] [place] [address] Mar, [facility] [place] [facility] [address] [facility] [id number] [place] [address] Mar, [facility] [place] [facility] [address] [id number] [place] [address] Mar, [facility] [place] [facility] [address] [id number], [place] [address] Mar, [facility] [place] [facility] [address] [id number] [place] [address] Mar, [facility] [place] [facility] [address] [facility] [id number] [place] [address] Mar, [facility] [place] [facility] [address] [id number] [place] [address] Mar, [facility] [place] [facility] [address] [id number] [place] [address] Mar, [facility] [address] [id number] [place] [address] Mar, [facility] [place] [facility] [address] [id number] [place] [address] Mar, [facility] [place] [facility] [address] [id number] [place] [address] Mar, [facility] [address] [id number] [place] [address] Mar, [facility] [place] [facility] [address] [id number] [place] [address] Mar, [facility] [address] [id number] [place] [address] Mar, [facility] [address] [id number] [place] [address] Mar, [facility] [address] [id number] [place] [address] Mar, [facility] [address] [id number] [place] [address] Mar, [facility] [place] [facility] [address] [id number] [place] [address] Mar, [facility] [place] [facility] [address] [id number] [place] [address] Feb, [facility] [place] [facility] [address] [id number] [place] [address] Feb, [facility] [place] [facility] [address] [id number] [place] [address] Feb, [facility] [place] [facility] [address] [id number] [place] [address] Feb, [facility] [place] [facility] [address] [id number] [place] [address] Jan, [facility] [place] [facility] [address] [id number] [place] [address] Jan, [facility] [place] [facility] [address] [id number] [place] [address] Jan, [facility] [place] [facility] [address] [id number] [place] [address] Jan, [facility] [place] [facility] [address] [id number] [place] [address] Jan, [facility] [place] [facility] [address] [id number] [place] [address] Jan, [facility] [place] [facility] [address] [id number] [place] [address] Jan, [facility] [place] [facility] [address] [id number] [place] [address] Jan, [facility] [place] [facility] [address] [id number] [place] [address] Dec, [facility] [place] [facility] [address] [id number] [place] [address] Dec, [facility] [place] [facility] [address] [id number] [place] [address] Dec, [facility] [place] [facility] [address] [id number] [place] [address] Dec, [facility] [place] [facility] [address] [id number] [place] [address] 22 Nov, 2013 [facility] [place] [facility] [address] [id number] [place] [address] 22 Nov, 2013 [facility] [place] [facility] [address] [id number] [place] [address] 08 Nov, 2013 [facility] [place] [facility] [address] [id number] [place] [address] 08 Nov, 2013 [facility] [place] [facility] [address] [id number] [place] [address] 05 Sep, 2013 [facility] [place] [facility] [address] [id number] [place] [address] 05 Sep, 2013 [facility] [place] [facility] [address] [id number] [place] [address] 04 Nov, 2013 [facility] [place] [facility] [address] [id number] [place] [address] 04 Nov, 2013 [facility] [place] [facility] [address] [id number] [place] [address] 03 Nov, 2013 [facility] [place] [facility] [address] [id number] [place] [address] Nov, 2013 [facility] [place] [facility] [address] [id number] [place] [address] Oct, [facility] [place] [facility] [address] [id number] [place] [address] Oct, [facility] [place] [facility] [address] [id number] [place] [address] Sep, [facility] [place] [facility] [address] [id number] [place] [address] Sep, [facility] [place] [facility] [address] [id number] [place] [address] Sep, [facility] [place] [facility] [address] [id number] [place] [address] Sep, [facility] [place] [facility] [address] [id number] [place] [address] Sep, [facility] [place] [facility] [address] [id number] [place] [address] Sep, [facility] [place] [facility] [address] [id number] [place] [address] Aug, [facility] [place] [facility] [address] [id number] [place] [address] Aug, [facility] [place] [facility] [address] [id number] [place] [address] Aug, [facility] [place] [facility] [address] [id number] [place] [address] Aug, [facility] [place] [facility] [address] [id number] [place] [address] Aug, [facility] [place] [facility] [address] [id number] [place] [address] Aug, [facility] [place] [facility] [address] [id number] [place] [address] July, [facility] [place] [facility] [address] [id number] [place] [address] July, [facility] [place] [facility] [address] [id number] [place] [address] July, [facility] [place] [facility] [address] [id number] [place] [address] July, [facility] [place] [facility] [address] [id number] [place] [address] July, [facility] [place] [facility] [address] [id number] [place] [address] July, [facility] [place] [facility] [address] [id number] [place] [address] Jun, [facility] [place] [facility] [address] [id number] [place] [address] Jun, [facility] [place] [facility] [address] [id number] [place] [address] Jun, [facility] [place] [facility] [address] [id number] [place] [address] Jun, [facility] [place] [facility] [address] [id number] [place] [address] May, [facility] [place] [facility] [address] [id number] [place] [address] May, [facility] [place] [facility] [address] [id number] [place] [address] Apr, [facility] [place] [facility] [address] [id number] [place] [address] Apr, [facility] [place] [facility] [address] [id number] [place] [address] Apr, [facility] [place] [facility] [address] [id number] [place] [address] Apr, [facility] [place] [facility] [address] [id number] [place] [address] Mar, [facility] [place] [facility] [address] [id number] [place] [address] Mar, [facility] [place] [facility] [address] [id number] [place] [address] Mar, [facility] [place] [facility] [address] [id number] [place] [address] Mar, [facility] [place] [facility] [address] [id number] [place] [address] Mar, [facility] [place] [facility] [address] [id number] [place] [address] Mar, [facility] [place] [facility] [address] [id number] [place] [address] Feb, [facility] [place] [facility] [address] [id number] [place] [address] Feb, [facility] [place] [facility] [address] [id number] [place] [address] Jan, [facility] [place] [facility] [address] [id number] [place] [address] Jan, [facility] [place] [facility] [address] [id number] [place] [address] Jan, [facility] [place] [facility] [address] [id number] [place] [address] Jan, [facility] [place] [facility] [address] [id number] [place] [address] Nov, [facility] [place] [facility] [address] [id number] [place] [address] Nov, [facility] [place] [facility] [address] [id number] [place] [address] Oct, [facility] [address] [id number] [place] [address] Oct, [facility] [place] [facility] [address] [id number] [place] [address] Sep, [facility] [address] [id number] [place] [address] Sep, [facility] [address] [id number] [place] [address] Sep, [facility] [address] [id number] [place] [address] Aug, [facility] [place] [facility] [address] [id number] [place] [address] Aug, [facility] [place] [facility] [address] [id number] [place] [address] Aug, [facility] [place] [facility] [address] [id number] [place] [address] Aug, [facility] [place] [facility] [address] [id number] [place] [address] July, [facility] [place] [facility] [address] [id number] [place] [address] July, [facility] [place] [facility] [address] [id number] [place] [address] July, [facility] [place] [facility] [address] [id number], [place] [address] July, [facility] [address] [id number] [place] [address] Jun, [facility] [address] [id number] [place] [address] Jun, [facility] [address] [id number] [place] [address] Jun, [facility] [address] [id number] [place] [address] May, [facility] [address] [id number] [place] [address] May, [facility] [address] [id number] [place] [address] Apr, [facility] [address] [id number] [place] [address] Apr, [facility] [address] [id number] [place] [address] Apr, [facility] [address] [id number] [place] [address] Apr, [facility] [address] [facility] [id number] [place] [address] Mar, [facility] [address] [id number] [place] [address] Mar, [facility] [place] [facility] [address] [id number] [place] [address] Mar, [facility] [place] [facility] [address] [id number] [place] [address] Mar, [facility] [place] [facility] [address] [id number] [place] [address] Feb, [facility] [address] [facility] [id number] [place] [address] Feb, [facility] [place] [facility] [address] [id number] [place] [address] 10 Feb, 2012 [facility] [place] [facility] [address] [id number] [place] [address] 10 Feb, 2012 [facility] [place] [facility] [address] [id number] [place] [address] 10 Feb, 2012 [facility] [place] [facility] [address] [id number] [place] [address] 06 Feb, 2012 [facility] [place] [facility] [address] [id number] [place] [address] 04 Feb, 2012 [facility] [place] [facility] [address] [id number] [place] [address] 04 Feb, 2012 [facility] [place] [facility] [address] [id number] [place] [address] 28 Jan, 2012 [facility] [place] [facility] [address] [id number] [place] [address] 28 Jan, 2012 [facility] [place] [facility] [address] [id number] [place] [address] 15 Jan, 2012 [facility] [place] [facility] [address] [id number] [place] [address] 15 Jan, 2012 [facility] [place] [facility] [address] [id number] [place] [address] 14 Jan, 2012 [facility] [place] [facility] [address] [id number] [place] [address] 13 Jan, 2012 [facility] [place] [facility] [address] [id number] [place] [address] 13 Jan, 2012 [facility] [place] [facility] [address] [id number] [place] [address] 12 Jan, 2012 [facility] [place] [facility] [address] [id number] [place] [address] 12 Jan, 2012 [facility] [place] [facility] [address] [id number] [place] [address] Jan, [facility] [place] [facility] [address] [id number] [place] [address] Jan, [facility] [place] [facility] [address] [id number] [place] [address] Dec, [facility] [place] [facility] [address] [facility] [id number] [place] [address] Dec, [facility] [place] [facility] [address] [id number] [place] [address] Dec, [facility] [place] [facility] [address] [id number] [place] [address] Dec, [facility] [place] [facility] [address] [id number] [place] [address] Dec, [facility] [place] [facility] [address] [id number] [place] [address] Dec, [facility] [place] [facility] [address] [id number], [place] [address] Dec, [facility] [place] [facility] [address] [id number], [place] [address] Dec, [facility] [place] [facility] [address] [facility] [id number], [place] [address] Dec, [facility] [place] [facility] [address] [id number], [place] [address] Dec, [facility] [place] [facility] [address] [id number], [place] [address] Dec, [facility] [place] [facility] [address] [id number], [place] [address] Dec, [facility] [place] [facility] [address] [facility] [id number], [place] [address] Nov, [facility] [place] [facility] [address] [facility] [id number], [place] [address] Oct, [facility] [place] [facility] [address] [id number] [place] [address] Oct, [facility] [address] [id number] [place] [address] Oct, [facility] [address] [id number] [place] [address] Oct, [facility] [address] [id number] [place] [address] Sep, [facility] [address] [id number] [place] [address] Sep, [facility] [address] [id number] [place] [address] Sep, [facility] [address] [id number] [place] [address] Sep, [facility] [address] [facility] [id number] [place] [address] Aug, [facility] [address] [id number] [place] [address] Aug, [facility] [address] [facility] [id number] [place] [address] Aug, [facility] [address] [facility] [id number] [place] [address] Aug, [facility] [address] [facility] [id number] [place] [address] Aug, [facility] [address] [id number] [place] [address] July, [facility] [address] [id number] [place] [address] July, [facility] [address] [facility] [id number] [place] [address] July, [facility] [address] [id number] [place] [address] Dec, IMMUNIZATIONS No Known Immunizations SOCIAL HISTORY Never Assessed REASON FOR VISIT EMR-[facility] [place] PLAN OF CARE [...]
--- OUTSIDE RECORDS SUMMARY | 2018-10-24 12:12 | XMS REPORT ---
Author Author Migration, Doctor Organization [facility] Address Unknown Phone Unavailable Care Team Providers Care Multimedia Specialist Name Role Phone Migration, Doctor Unavailable Unavailable PROBLEMS Type Condition ICD9-CM Code GNP59-TA Code Onset Dates Condition Status SNOMED Code Problem Chronic periodontal disease K05.6 Active 0428734 Problem MRSA (methicillin resistant staph aureus) culture positive Z22.322 Active 962358170 Problem Major depressive disorder F32.9 Active 123795568 Problem Interstitial cystitis N30.10 Active 582265261 Problem Generalized anxiety disorder F41.1 Active 026743225 Problem Epilepsy G40.909 Active 24960123 Problem Fibromyalgia M79.7 Active 92011842 Problem Irritable bowel syndrome without diarrhea K58.9 Active 93667728 Problem Tinnitus of both ears H93.13 Active 6563122973156 Problem Menopausal symptoms N95.1 Active 13218586 Problem Lumbago M54.5 Active 303461868 Problem COPD exacerbation J44.1 Active 341143058 Problem Esophageal reflux K21.9 Active 643095367 Problem Chronic obstructive pulmonary disease, unspecified COPD type J44.9 Active 22686748 Problem On antiepileptic therapy Z79.899 Active 300935529 Problem Vitamin D deficiency E55.9 Active 33049541 Problem Irritable bowel syndrome with diarrhea K58.0 Active 471479097 ALLERGIES No Information ENCOUNTERS Encounter Location Date Diagnosis [facility] [place] [id number], [place] [address] Jun, [facility] [place] [address] [facility] [id number], [place] [address] May, Fibromyalgia M79.7 [facility] [place] [id number], [place] [address] Apr, [facility] [place] [address] [facility] [id number], [place] [address] Mar, Fibromyalgia M79.7 [facility] [place] [id number] [place] [address] Feb, Fibromyalgia M79.7 [facility] [address] [address] Feb, Acute cystitis with hematuria N30.01 [facility] [id number] [place] [address] Feb, Acute cystitis with hematuria N30.01 ; COPD exacerbation J44.1 ; Interstitial cystitis N30.10 ; Nausea R11.0 and Rectal bleeding K62.5 [facility] [id number] [place] [address], [place] [address] Jan, Fibromyalgia M79.7 [facility] [id number] [place] [id number] Dec, [facility] [id number] [place] [address] [id number] Dec, [facility] [place] [facility] [id number] [place] [address] Dec, Fibromyalgia M79.7 [facility] [id number] [place] [address] Dec, [facility] [place] [facility] [id number] [place] [address] Oct, [facility] [address] [place] [address] [id number] Oct, [facility] [place] [facility] [id number] [place] [address] Oct, [facility] [place] [facility] [id number] [place] [address] Sep, [facility] [place] [facility] [id number] [place] [address] Sep, [facility] [place] [facility] [id number] [place] [address] Sep, [facility] [place] [facility] [address] [id number] Aug, Dental examination Z01.20 [facility] [id number] [place] [address] Aug, Abscess of axilla, left L02.412 [place] [facility] [id number] [place] [address] 08 Aug, 2017 Esophageal reflux K21.9 [facility] [id number] [place] [address] Aug, [facility] [id number] [place] [address] Aug, Esophageal reflux K21.9 ; Fluid level behind tympanic membrane of right ear H65.91 ; Fibromyalgia M79.7 and Lumbago M54.5 [facility] [facility] [id number] [place] [address] Aug, Esophageal reflux K21.9 [facility] [id number] [place] [address] July, [facility] [id number] [place] [address] July, [facility] [place] [address] [place] [address] July, Chronic obstructive pulmonary disease, unspecified COPD type J44.9 [facility] [facility] [id number] [place] [address] July, [facility] [place] [id number] [place] [address] July, [facility] [place] [id number] [place] [address] July, Interstitial cystitis N30.10 ; Fibromyalgia M79.7 [...] Dysuria R30.0 and Generalized anxiety disorder F41.1 [place] [id number] [place] [address] Jun, [place] [address] [address] Jun, Chronic obstructive pulmonary disease, unspecified COPD type J44.9 ; COPD exacerbation J44.1 and Sore throat J02.9 [place] [address] [address] Jun, Fibromyalgia M79.7 [facility] [facility] [id number] [place] [address] Jun, Fibromyalgia M79.7 [facility] [id number] [place] [address] May, [facility] [id number] [place] [address] May, [place] [id number] [place] [address] May, Fibromyalgia M79.7 [place] [id number] [place] [address] Mar, [place] [id number] [place] [address] Mar, Epilepsy G40.909 ; Lumbago M54.5 ; Esophageal reflux K21.9 ; Fibromyalgia M79.7 ; Chronic obstructive pulmonary disease, unspecified COPD type J44.9 ; Vitamin D deficiency E55.9 ; Fluid level behind tympanic membrane of right ear H65.91 ; Irritable bowel syndrome with diarrhea K58.0 ; Hematochezia K92.1 and Generalized anxiety disorder F41.1 [address] [facility] [id number] [address] Mar, [facility] [place] [id number] [place] [address] Mar, [facility] [place] [id number] [place] [address] Mar, Vitamin D deficiency E55.9 [facility] [place] [id number] [place] [address] Feb, [facility] [place] [id number] [place] [address] Feb, [facility] [place] [id number] [place] [address] Jan, Fibromyalgia M79.7 [facility] [place] [id number] [place] [address] Jan, [facility] [place] [id number] [place] [address] Jan, [facility] [place] [address] [place] [address] Jan, Vitamin D deficiency E55.9 [facility] [place] [id number] [place] [address] Dec, [facility] [place] [address] [place] [address] Dec, [facility] [place] [id number] [place] [address] Dec, Generalized anxiety disorder F41.1 [facility] [place] [id number] [place] [address] Dec, Dysuria R30.0 ; Acute bilateral low back pain without sciatica M54.5 and Encounter for immunization Z23 [facility] [place] [address], [place] [address] Oct, [facility] [place] [address], [place] [address] Oct, Fibromyalgia M79.7 [facility] [place] [id number] [place] [address] Sep, Dysuria R30.0 and Acute bronchitis, unspecified organism J20.9 [facility] [place] [id number] [place] [address] Sep, [facility] [place] [id number] [place] [address] Sep, Rectal prolapse K62.3 [address] [id number] [place] [address] Sep, Chronic obstructive pulmonary disease, unspecified COPD type J44.9 [facility] [address] [id number] Aug, [facility] [address] [id number] Aug, [facility] [place] [id number] [place] [address] Aug, Light headedness R42 ; On antiepileptic therapy Z79.899 ; Vitamin D deficiency E55.9 ; Screening for lipid disorders Z13.220 ; Dysuria R30.0 and Hemorrhoids, unspecified hemorrhoid type K64.9 [address] [place] [address] Aug, Internal prolapsed hemorrhoids K64.8 [address] [place] [place] [address] July, [facility] [place] [id number] [place] [address] May, [facility] [place] [id number] [place] [address] May, Fever and chills R50.9 and Influenza B J10.1 [address] [place] [address] 16 Apr, 2016 [facility] [place] [address] [address] Apr, Fibromyalgia M79.7 and Generalized anxiety disorder F41.1 [facility] [place] [id number] [place] [address] Mar, Esophageal reflux K21.9 ; Generalized anxiety disorder F41.1 and Epilepsy G40.909 [facility] [place] [id number] [place] [address] 13 Mar, 2016 Epilepsy G40.909 ; Esophageal [...] disorders Z13.220 and On antiepileptic therapy Z79.899 [facility] [place] [id number] [place] [address] Feb, [address] [place] [address] Feb, [facility] [id number] [place] [address] Feb, Dysuria R30.0 and Plantar fasciitis of right foot M72.2 [facility] [place] [id number] [place] [address] Feb, [facility] [place] [address] [address] Feb, [facility] [place] [id number] [place] [address] Jan, [facility] [place] [id number] [place] [address] Jan, [facility] [place] [address], [place] [address] Dec, [facility] [place] [id number] [place] [address] Dec, [facility] [place] [id number] [place] [address] Dec, [facility] [place] [address] [address] Nov, [facility] [place] [id number] [place] [address] Sep, [facility] [id number] [place] [address] Aug, Shortness of breath R06.02 and Acute suppurative otitis media of right ear without spontaneous rupture of tympanic membrane, recurrence not specified H66.001 [facility] [place] [id number] [place] [address] Aug, Internal prolapsed hemorrhoids K64.8 [address] [place] [id number] [place] [address] Jun, 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 [place] [id number] [place] [address] May, Fibromyalgia M79.7 ; Interstitial cystitis N30.10 ; Intractable migraine without aura and without status migrainosus G43.019 ; Low vitamin D level E55.9 and Ringing in right ear H93.11 [facility] [place] [address] [place] [address] May, [address] [id number] [place] [address] May, Low vitamin D level E55.9 [facility] [place] [id number] [place] [address] Apr, [facility] [place] [id number] [place] [address] Mar, [facility] [place] [address] [address] Mar, Acute suppurative otitis media of right ear without spontaneous rupture of tympanic membrane, recurrence not specified H66.001 ; Encounter for immunization Z23 ; Asthma with acute exacerbation, unspecified asthma severity J45.901 ; Memory problem R41.3 ; Acute pain of right knee M25.561 ; Chronic fatigue R53.82 and Excessive urinary volume R35.8 [facility] [place] [address] [address] Feb, [address] [place] [address] [address] Feb, [place] [address] [address] Jan, [facility] [place] [address] [address] Nov, Esophageal reflux 530.81 ; Anxiety 300.00 and Tingling in extremities 782.0 [facility] [place] [id number] [place] [address] Oct, [facility] [place] [address] [address] Oct, [facility] [place] [address] [address] Oct, [facility] [place] [address] [address] Oct, [facility] [place] [address] [address] Oct, [facility] [place] [id number] [place] [address] Sep, Other chronic allergic conjunctivitis 372.14 ; Irritable bowel syndrome 564.1 ; 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 ; Fibromyalgia 729.1 ; Extremity pain 729.5 and Neck pain 723.1 [facility] [place] [id number] [place] [address] Sep, [facility] [place] [id number] [place] [address] Aug, [facility] [place] [id number] [place] [address] Aug, [facility] [place] [id number] [place] [address] July, Vomiting 787.03 [facility] [id number] [place] [address] [id number] July, Dental examination V72.2 [facility] [place] [id number] [place] [address] Jun, [facility] [place] [id number] [place] [address] Jun, [facility] [place] [address] [place] [address] May, [facility] [place] [id number] [place] [address] May, [facility] [place] [address] [place] [address] May, [facility] [place] [id number] [place] [address] May, [facility] [place] [address] [place] [address] May, [facility] [place] [id number] [place] [address] May, [facility] [place] [address], [place] [address] May, [facility] [place] [id number] [place] [address] May, [facility] [place] [facility] [address] [id number] [place] [address] May, [facility] [place] [facility] [address] [id number] [place] [address] Apr, 2014 [facility] [place] [facility] [address] [id number] [place] [address] Apr, 2014 [facility] [place] [facility] [address] [id number] [place] [address] Apr, 2014 [facility] [place] [facility] [address] [id number] [place] [address] Apr, [facility] [place] [facility] [address] [id number] [place] [address] Apr, [facility] [place] [facility] [address] [id number] [place] [address] Apr, [facility] [place] [facility] [address] [id number] [place] [address] Mar, [facility] [place] [facility] [address] [id number] [place] [address] Mar, [facility] [place] [facility] [address] [facility] [id number] [place] [address] Mar, [facility] [place] [facility] [address] [id number] [place] [address] Mar, [facility] [place] [facility] [address] [id number], [place] [address] Mar, [facility] [place] [facility] [address] [id number] [place] [address] Mar, [facility] [place] [facility] [address] [facility] [id number] [place] [address] Mar, [facility] [place] [facility] [address] [id number] [place] [address] Mar, [facility] [place] [facility] [address] [id number] [place] [address] Mar, [facility] [address] [id number] [place] [address] Mar, [facility] [place] [facility] [address] [id number] [place] [address] Mar, [facility] [place] [facility] [address] [id number] [place] [address] Mar, [facility] [address] [id number] [place] [address] Mar, [facility] [place] [facility] [address] [id number] [place] [address] Mar, [facility] [address] [id number] [place] [address] Mar, [facility] [address] [id number] [place] [address] Mar, [facility] [address] [id number] [place] [address] Mar, [facility] [address] [id number] [place] [address] Mar, [facility] [place] [facility] [address] [id number] [place] [address] Mar, [facility] [place] [facility] [address] [id number] [place] [address] Feb, [facility] [place] [facility] [address] [id number] [place] [address] Feb, [facility] [place] [facility] [address] [id number] [place] [address] Feb, [facility] [place] [facility] [address] [id number] [place] [address] Feb, [facility] [place] [facility] [address] [id number] [place] [address] Jan, [facility] [place] [facility] [address] [id number] [place] [address] Jan, [facility] [place] [facility] [address] [id number] [place] [address] Jan, [facility] [place] [facility] [address] [id number] [place] [address] Jan, [facility] [place] [facility] [address] [id number] [place] [address] Jan, [facility] [place] [facility] [address] [id number] [place] [address] Jan, [facility] [place] [facility] [address] [id number] [place] [address] Jan, [facility] [place] [facility] [address] [id number] [place] [address] Jan, [facility] [place] [facility] [address] [id number] [place] [address] Dec, [facility] [place] [facility] [address] [id number] [place] [address] Dec, [facility] [place] [facility] [address] [id number] [place] [address] Dec, [facility] [place] [facility] [address] [id number] [place] [address] Dec, [facility] [place] [facility] [address] [id number] [place] [address] 22 Nov, 2013 [facility] [place] [facility] [address] [id number] [place] [address] 22 Nov, 2013 [facility] [place] [facility] [address] [id number] [place] [address] 08 Nov, 2013 [facility] [place] [facility] [address] [id number] [place] [address] 08 Nov, 2013 [facility] [place] [facility] [address] [id number] [place] [address] 05 Sep, 2013 [facility] [place] [facility] [address] [id number] [place] [address] 05 Sep, 2013 [facility] [place] [facility] [address] [id number] [place] [address] 04 Nov, 2013 [facility] [place] [facility] [address] [id number] [place] [address] 04 Nov, 2013 [facility] [place] [facility] [address] [id number] [place] [address] 03 Nov, 2013 [facility] [place] [facility] [address] [id number] [place] [address] Nov, 2013 [facility] [place] [facility] [address] [id number] [place] [address] Oct, [facility] [place] [facility] [address] [id number] [place] [address] Oct, [facility] [place] [facility] [address] [id number] [place] [address] Sep, [facility] [place] [facility] [address] [id number] [place] [address] Sep, [facility] [place] [facility] [address] [id number] [place] [address] Sep, [facility] [place] [facility] [address] [id number] [place] [address] Sep, [facility] [place] [facility] [address] [id number] [place] [address] Sep, [facility] [place] [facility] [address] [id number] [place] [address] Sep, [facility] [place] [facility] [address] [id number] [place] [address] Aug, [facility] [place] [facility] [address] [id number] [place] [address] Aug, [facility] [place] [facility] [address] [id number] [place] [address] Aug, [facility] [place] [facility] [address] [id number] [place] [address] Aug, [facility] [place] [facility] [address] [id number] [place] [address] Aug, [facility] [place] [facility] [address] [id number] [place] [address] Aug, [facility] [facility] [address] [id number] [place] [address] July, [facility] [place] [facility] [address] [id number] [place] [address] July, [facility] [place] [facility] [address] [id number] [place] [address] July, [facility] [place] [facility] [address] [id number] [place] [address] July, [facility] [place] [facility] [address] [id number] [place] [address] July, [facility] [place] [facility] [address] [id number] [place] [address] July, [facility] [place] [facility] [address] [id number] [place] [address] Jun, [facility] [place] [facility] [address] [id number] [place] [address] Jun, [facility] [place] [facility] [address] [id number] [place] [address] Jun, [facility] [place] [facility] [address] [id number] [place] [address] Jun, [facility] [place] [facility] [address] [id number] [place] [address] May, [facility] [place] [facility] [address] [id number] [place] [address] May, [facility] [place] [facility] [address] [id number] [place] [address] Apr, [facility] [place] [facility] [address] [id number] [place] [address] Apr, [facility] [place] [facility] [address] [id number] [place] [address] Apr, [facility] [place] [facility] [address] [id number] [place] [address] Apr, [facility] [place] [facility] [address] [id number] [place] [address] Mar, [facility] [place] [facility] [address] [id number] [place] [address] Mar, [facility] [place] [facility] [address] [id number] [place] [address] Mar, [facility] [place] [facility] [address] [id number] [place] [address] Mar, [facility] [place] [facility] [address] [id number] [place] [address] Mar, [facility] [place] [facility] [address] [id number] [place] [address] Mar, [facility] [place] [facility] [address] [id number] [place] [address] Feb, [facility] [place] [facility] [address] [id number] [place] [address] Feb, [facility] [place] [facility] [address] [id number] [place] [address] Jan, [facility] [place] [facility] [address] [id number] [place] [address] Jan, [facility] [place] [facility] [address] [id number] [place] [address] Jan, [facility] [place] [address] [id number] [place] [address] Jan, [facility] [place] [facility] [address] [id number] [place] [address] Nov, [facility] [place] [address] [id number] [place] [address] Nov, [facility] [address] [id number] [place] [address] Oct, [facility] [address] [id number] [place] [address] Oct, [facility] [address] [id number] [place] [address] Sep, [facility] [address] [id number] [place] [address] Sep, [facility] [address] [id number] [place] [address] Sep, [facility] [address] [id number] [place] [address] Aug, [facility] [address] [id number] [place] [address] Aug, [facility] [address] [id number] [place] [address] Aug, [facility] [place] [address] [id number] [place] [address] Aug, [facility] [place] [facility] [address] [id number] [place] [address] July, [facility] [place] [facility] [address] [id number] [place] [address] July, [facility] [address] [id number] [place] [address] July, [facility] [address] [id number], [place] [address] July, [facility] [address] [id number] [place] [address] Jun, [facility] [address] [id number] [place] [address] Jun, [facility] [address] [id number] [place] [address] Jun, [facility] [address] [id number] [place] [address] May, [facility] [address] [id number] [place] [address] May, [facility] [address] [id number] [place] [address] Apr, [facility] [address] [id number] [place] [address] Apr, [facility] [address] [id number] [place] [address] Apr, [facility] [address] [id number] [place] [address] Apr, [facility] [address] [facility] [id number] [place] [address] Mar, [facility] [address] [id number] [place] [address] Mar, [facility] [address] [id number] [place] [address] Mar, [facility] [address] [id number] [place] [address] Mar, [facility] [address] [id number] [place] [address] Feb, [facility] [address] [facility] [id number] [place] [address] Feb, [facility] [address] [id number] [place] [address] 10 Feb, 2012 [facility] [address] [id number] [place] [address] 10 Feb, 2012 [facility] [address] [id number] [place] [address] 10 Feb, 2012 [facility] [address] [id number] [place] [address] 06 Feb, 2012 [facility] [address] [id number] [place] [address] 04 Feb, 2012 [facility] [address] [id number] [place] [address] 04 Feb, 2012 [facility] [address] [id number] [place] [address] 28 Jan, 2012 [facility] [address] [id number] [place] [address] 28 Jan, 2012 [facility] [address] [id number] [place] [address] 15 Jan, 2012 [facility] [address] [id number] [place] [address] 15 Jan, 2012 [facility] [address] [id number] [place] [address] 14 Jan, 2012 [facility] [address] [id number] [place] [address] 13 Jan, 2012 [facility] [address] [id number] [place] [address] 13 Jan, 2012 [facility] [address] [id number] [place] [address] 12 Jan, 2012 [facility] [address] [id number] [place] [address] 12 Jan, 2012 [facility] [address] [id number] [place] [address] Jan, [facility] [address] [id number] [place] [address] Jan, [facility] [address] [id number] [place] [address] Dec, [facility] [address] [facility] [id number] [place] [address] Dec, [facility] [address] [id number] [place] [address] Dec, [facility] [address] [id number] [place] [address] Dec, [facility] [address] [id number] [place] [address] Dec, [facility] [address] [id number] [place] [address] Dec, [facility] [address] [id number], [place] [address] Dec, [facility] [address] [id number], [place] [address] Dec, [facility] [address] [facility] [id number], [place] [address] Dec, [facility] [address] [id number], [place] [address] Dec, [facility] [address] [id number], [place] [address] Dec, [facility] [address] [id number], [place] [address] Dec, [facility] [address] [facility] [id number], [place] [address] Nov, [facility] [address] [facility] [id number], [place] [address] Oct, [facility] [address] [id number] [place] [address] Oct, [facility] [address] [id number] [place] [address] Oct, [facility] [address] [id number] [place] [address] Oct, [facility] [address] [id number] [place] [address] Sep, [facility] [address] [id number] [place] [address] Sep, [facility] [address] [id number] [place] [address] Sep, [facility] [address] [id number] [place] [address] Sep, [facility] [address] [facility] [id number] [place] [address] Aug, [facility] [address] [id number] [place] [address] Aug, [facility] [address] [facility] [id number] [place] [address] Aug, [facility] [address] [facility] [id number] [place] [address] Aug, [facility] [address] [facility] [id number] [place] [address] Aug, [facility] [address] [id number] [place] [address] July, [facility] [address] [id number] [place] [address] July, [facility] [address] [facility] [id number] [place] [address] July, [facility] [address] [id number] [place] [address] Dec, IMMUNIZATIONS No Known Immunizations SOCIAL HISTORY Never Assessed REASON FOR VISIT EMR-[facility] PLAN OF CARE VITAL SIGNS [...]
--- OUTSIDE RECORDS SUMMARY | 2018-10-24 12:13 | XMS REPORT ---
Author Author Migration, Doctor Organization [facility] Address Unknown Phone Unavailable Care Team Providers Care Shower Attendant Name Role Phone Migration, Doctor Unavailable Unavailable PROBLEMS Type Condition ICD9-CM Code QOM89-WE Code Onset Dates Condition Status SNOMED Code Problem Chronic periodontal disease K05.6 Active 0783707 Problem MRSA (methicillin resistant staph aureus) culture positive Z22.322 Active 019677406 Problem Major depressive disorder F32.9 Active 430468038 Problem Interstitial cystitis N30.10 Active 124687658 Problem Generalized anxiety disorder F41.1 Active 250497562 Problem Epilepsy G40.909 Active 95975096 Problem Fibromyalgia M79.7 Active 26891604 Problem Irritable bowel syndrome without diarrhea K58.9 Active 61421311 Problem Tinnitus of both ears H93.13 Active 4936626415623 Problem Menopausal symptoms N95.1 Active 20847473 Problem Lumbago M54.5 Active 362016373 Problem COPD exacerbation J44.1 Active 126095205 Problem Esophageal reflux K21.9 Active 335378646 Problem Chronic obstructive pulmonary disease, unspecified COPD type J44.9 Active 01562287 Problem On antiepileptic therapy Z79.899 Active 433585918 Problem Vitamin D deficiency E55.9 Active 03835936 Problem Irritable bowel syndrome with diarrhea K58.0 Active 511913829 ALLERGIES No Information ENCOUNTERS Encounter Location Date Diagnosis [facility] [address] [id number] [address] Jun, [facility] [address] [facility] [id number] [address] May, Fibromyalgia M79.7 [facility] [address] [id number], [place] [address] Apr, [facility] [address] [facility] [id number], [place] [address] Mar, Fibromyalgia M79.7 [facility] [id number] [place] [address] Feb, Fibromyalgia M79.7 [facility] [address] [address] Feb, Acute cystitis with hematuria N30.01 [facility] [id number] [place] [address] Feb, Acute cystitis with hematuria N30.01 ; COPD exacerbation J44.1 ; Interstitial cystitis N30.10 ; Nausea R11.0 and Rectal bleeding K62.5 [facility] [id number] [place] [address], [place] [address] Jan, Fibromyalgia M79.7 [facility] [id number] [place] [id number] Dec, [facility] [id number] [place] [id number] Dec, [facility] [place] [facility] [id number] [place] [address] Dec, Fibromyalgia M79.7 [facility] [id number] [place] [address] Dec, [facility] [place] [facility] [id number] [place] [address] Oct, [facility] [id number] [place] [id number] Oct, [facility] [place] [facility] [id number] [place] [address] Oct, [facility] [place] [facility] [id number] [place] [address] Sep, [facility] [place] [facility] [id number] [place] [address] Sep, [facility] [place] [facility] [id number] [place] [address] Sep, [facility] [place] [facility] [address] [id number] Aug, Dental examination Z01.20 [facility] [id number] [place] [address] Aug, Abscess of axilla, left L02.412 [facility] [facility] [id number] [place] [address] 08 Aug, 2017 Esophageal reflux K21.9 [facility] [id number] [place] [address] Aug, [facility] [facility] [id number] [place] [address] Aug, Esophageal reflux K21.9 ; Fluid level behind tympanic membrane of right ear H65.91 ; Fibromyalgia M79.7 and Lumbago M54.5 [place] [facility] [id number] [place] [address] Aug, Esophageal reflux K21.9 [facility] [id number] [place] [address] July, [place] [facility] [id number] [place] [address] July, [facility] [address] [place] [address] July, Chronic obstructive pulmonary disease, unspecified COPD type J44.9 [facility] [id number] [place] [address] July, [facility] [id number] [place] [address] July, [facility] [id number] [place] [address] July, Interstitial cystitis N30.10 ; Fibromyalgia M79.7 [...] Dysuria R30.0 and Generalized anxiety disorder F41.1 [facility] [facility] [id number] [place] [address] Jun, [place] [facility] [address] [address] Jun, Chronic obstructive pulmonary disease, unspecified COPD type J44.9 ; COPD exacerbation J44.1 and Sore throat J02.9 [place] [address] [address] Jun, Fibromyalgia M79.7 [facility] [id number] [place] [address] Jun, Fibromyalgia M79.7 [facility] [id number] [place] [address] May, [facility] [facility] [id number] [place] [address] May, [facility] [facility] [id number] [place] [address] May, Fibromyalgia M79.7 [facility] [facility] [id number] [place] [address] Mar, [facility] [facility] [id number] [place] [address] Mar, Epilepsy G40.909 ; Lumbago M54.5 ; Esophageal reflux K21.9 ; Fibromyalgia M79.7 ; Chronic obstructive pulmonary disease, unspecified COPD type J44.9 ; Vitamin D deficiency E55.9 ; Fluid level behind tympanic membrane of right ear H65.91 ; Irritable bowel syndrome with diarrhea K58.0 ; Hematochezia K92.1 and Generalized anxiety disorder F41.1 [place] [facility] [address] [id number], [place] [address] Mar, [facility] [id number] [place] [address] Mar, [facility] [id number] [place] [address] Mar, Vitamin D deficiency E55.9 [facility] [id number] [place] [address] Feb, [facility] [id number] [place] [address] Feb, [facility] [id number] [place] [address] Jan, Fibromyalgia M79.7 [facility] [id number] [place] [address] Jan, [facility] [id number] [place] [address] Jan, [facility] [address] [place] [address] Jan, Vitamin D deficiency E55.9 [facility] [id number] [place] [address] Dec, [facility] [address] [place] [address] Dec, [facility] [id number] [place] [address] Dec, Generalized anxiety disorder F41.1 [facility] [id number] [place] [address] Dec, Dysuria R30.0 ; Acute bilateral low back pain without sciatica M54.5 and Encounter for immunization Z23 [facility] [address], [place] [address] Oct, [facility] [address] [place], [place] [address] Oct, Fibromyalgia M79.7 [facility] [id number] [place] [address] Sep, Dysuria R30.0 and Acute bronchitis, unspecified organism J20.9 [facility] [id number] [place] [address] Sep, [facility] [id number] [place] [address] Sep, Rectal prolapse K62.3 [place] [facility] [id number] [place] [address] Sep, Chronic obstructive pulmonary disease, unspecified COPD type J44.9 [facility] [address] [id number] Aug, [facility] [address] [id number] Aug, [facility] [id number] [place] [address] Aug, Light headedness R42 ; On antiepileptic therapy Z79.899 ; Vitamin D deficiency E55.9 ; Screening for lipid disorders Z13.220 ; Dysuria R30.0 and Hemorrhoids, unspecified hemorrhoid type K64.9 [address] [address] [place] [address] Aug, Internal prolapsed hemorrhoids K64.8 [place] [address] [place] [address] July, [facility] [id number] [place] [address] May, [facility] [id number] [place] [address] May, Fever and chills R50.9 and Influenza B J10.1 [address] [place] [place] [address] 16 Apr, 2016 [facility] [address] [address] Apr, Fibromyalgia M79.7 and Generalized anxiety disorder F41.1 [facility] [id number] [place] [address] Mar, Esophageal reflux K21.9 ; Generalized anxiety disorder F41.1 and Epilepsy G40.909 [facility] [id number] [place] [address] 13 Mar, 2016 Epilepsy G40.909 ; Esophageal [...] disorders Z13.220 and On antiepileptic therapy Z79.899 [facility] [id number] [place] [address] Feb, [place] [address] [address] Feb, [facility] [id number] [place] [address] Feb, Dysuria R30.0 and Plantar fasciitis of right foot M72.2 [facility] [id number] [place] [address] Feb, [facility] [address] [address] Feb, [facility] [id number] [place] [address] Jan, [facility] [id number] [place] [address] Jan, [facility] [address], [place] [address] Dec, [facility] [id number] [place] [address] Dec, [facility] [id number] [place] [address] Dec, [facility] [address] [address] Nov, [facility] [id number] [place] [address] Sep, [facility] [id number] [place] [address] Aug, Shortness of breath R06.02 and Acute suppurative otitis media of right ear without spontaneous rupture of tympanic membrane, recurrence not specified H66.001 [facility] [id number] [place] [address] Aug, Internal prolapsed hemorrhoids K64.8 [place] [facility] [id number] [place] [address] Jun, 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 [place] [id number] [place] [address] May, Fibromyalgia M79.7 ; Interstitial cystitis N30.10 ; Intractable migraine without aura and without status migrainosus G43.019 ; Low vitamin D level E55.9 and Ringing in right ear H93.11 [facility] [address] [place] [address] May, [place] [id number] [place] [address] May, Low vitamin D level E55.9 [facility] [id number] [place] [address] Apr, [facility] [id number] [place] [address] Mar, [facility] [address] [address] Mar, Acute suppurative otitis media of right ear without spontaneous rupture of tympanic membrane, recurrence not specified H66.001 ; Encounter for immunization Z23 ; Asthma with acute exacerbation, unspecified asthma severity J45.901 ; Memory problem R41.3 ; Acute pain of right knee M25.561 ; Chronic fatigue R53.82 and Excessive urinary volume R35.8 [facility] [address] [address] Feb, [place] [address] [address] Feb, [place] [address] [address] Jan, [facility] [address] [address] Nov, Esophageal reflux 530.81 ; Anxiety 300.00 and Tingling in extremities 782.0 [facility] [id number] [place] [address] Oct, [facility] [address] [address] Oct, [facility] [address] [address] Oct, [facility] [address] [address] Oct, [facility] [address] [address] Oct, [facility] [id number] [place] [address] Sep, Other chronic allergic conjunctivitis 372.14 ; Irritable bowel syndrome 564.1 ; 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 ; Fibromyalgia 729.1 ; Extremity pain 729.5 and Neck pain 723.1 [facility] [id number] [place] [address] Sep, [facility] [id number] [place] [address] Aug, [facility] [id number] [place] [address] Aug, [facility] [id number] [place] [address] July, Vomiting 787.03 [facility] [id number] [place] [id number] July, Dental examination V72.2 [facility] [id number] [place] [address] Jun, [facility] [id number] [place] [address] Jun, [facility] [address] [place] [address] May, [facility] [id number] [place] [address] May, [facility] [address] [place] [address] May, [facility] [id number] [place] [address] May, [facility] [address] [place] [address] May, [facility] [id number] [place] [address] May, [facility] [address], [place] [address] May, [facility] [id number] [place] [address] May, [facility] [place] [facility] [address] [id number] [place] [address] May, [facility] [place] [facility] [address] [id number] [place] [address] Apr, 2014 [facility] [place] [facility] [address] [id number] [place] [address] Apr, 2014 [facility] [place] [facility] [address] [id number] [place] [address] Apr, 2014 [facility] [place] [facility] [address] [id number] [place] [address] Apr, [facility] [place] [facility] [address] [id number] [place] [address] Apr, [facility] [place] [facility] [address] [id number] [place] [address] Apr, [facility] [place] [facility] [address] [id number] [place] [address] Mar, [facility] [place] [facility] [address] [id number] [place] [address] Mar, [facility] [place] [facility] [address] [facility] [id number] [place] [address] Mar, [facility] [place] [facility] [address] [id number] [place] [address] Mar, [facility] [place] [facility] [address] [id number] [address] Mar, [facility] [place] [facility] [address] [id number] [place] [address] Mar, [facility] [place] [facility] [address] [facility] [id number] [place] [address] Mar, [facility] [place] [facility] [address] [id number] [place] [address] Mar, [facility] [place] [facility] [address] [id number] [place] [address] Mar, [facility] [address] [id number] [place] [address] Mar, [facility] [place] [facility] [address] [id number] [place] [address] Mar, [facility] [place] [facility] [address] [id number] [place] [address] Mar, [facility] [address] [id number] [place] [address] Mar, [facility] [place] [facility] [address] [id number] [place] [address] Mar, [facility] [address] [id number] [place] [address] Mar, [facility] [address] [id number] [place] [address] Mar, [facility] [address] [id number] [place] [address] Mar, [facility] [address] [id number] [place] [address] Mar, [facility] [place] [facility] [address] [id number] [place] [address] Mar, [facility] [place] [facility] [address] [id number] [place] [address] Feb, [facility] [place] [facility] [address] [id number] [place] [address] Feb, [facility] [place] [facility] [address] [id number] [place] [address] Feb, [facility] [place] [facility] [address] [id number] [place] [address] Feb, [facility] [place] [facility] [address] [id number] [place] [address] Jan, [facility] [place] [facility] [address] [id number] [place] [address] Jan, [facility] [place] [facility] [address] [id number] [place] [address] Jan, [facility] [place] [facility] [address] [id number] [place] [address] Jan, [facility] [place] [facility] [address] [id number] [place] [address] Jan, [facility] [place] [facility] [address] [id number] [place] [address] Jan, [facility] [place] [facility] [address] [id number] [place] [address] Jan, [facility] [place] [facility] [address] [id number] [place] [address] Jan, [facility] [place] [facility] [address] [id number] [place] [address] Dec, [facility] [place] [facility] [address] [id number] [place] [address] Dec, [facility] [place] [facility] [address] [id number] [place] [address] Dec, [facility] [place] [facility] [address] [id number] [place] [address] Dec, [facility] [place] [facility] [address] [id number] [place] [address] 22 Nov, 2013 [facility] [place] [facility] [address] [id number] [place] [address] 22 Nov, 2013 [facility] [place] [facility] [address] [id number] [place] [address] 08 Nov, 2013 [facility] [place] [facility] [address] [id number] [place] [address] 08 Nov, 2013 [facility] [place] [facility] [address] [id number] [place] [address] 05 Sep, 2013 [facility] [place] [facility] [address] [id number] [place] [address] 05 Sep, 2013 [facility] [place] [facility] [address] [id number] [place] [address] 04 Nov, 2013 [facility] [place] [facility] [address] [id number] [place] [address] 04 Nov, 2013 [facility] [place] [facility] [address] [id number] [place] [address] 03 Nov, 2013 [facility] [place] [facility] [address] [id number] [place] [address] Nov, 2013 [facility] [place] [facility] [address] [id number] [place] [address] Oct, [facility] [place] [facility] [address] [id number] [place] [address] Oct, [facility] [place] [facility] [address] [id number] [place] [address] Sep, [facility] [place] [facility] [address] [id number] [place] [address] Sep, [facility] [place] [facility] [address] [id number] [place] [address] Sep, [facility] [place] [facility] [address] [id number] [place] [address] Sep, [facility] [place] [facility] [address] [id number] [place] [address] Sep, [facility] [place] [facility] [address] [id number] [place] [address] Sep, [facility] [place] [facility] [address] [id number] [place] [address] Aug, [facility] [place] [facility] [address] [id number] [place] [address] Aug, [facility] [place] [facility] [address] [id number] [place] [address] Aug, [facility] [place] [facility] [address] [id number] [place] [address] Aug, [facility] [place] [facility] [address] [id number] [place] [address] Aug, [facility] [place] [facility] [address] [id number] [place] [address] Aug, [facility] [place] [facility] [address] [id number] [place] [address] July, [facility] [place] [facility] [address] [id number] [place] [address] July, [facility] [place] [facility] [address] [id number] [place] [address] July, [facility] [place] [facility] [address] [id number] [place] [address] July, [facility] [place] [facility] [address] [id number] [place] [address] July, [facility] [place] [facility] [address] [id number] [place] [address] July, [facility] [place] [facility] [address] [id number] [place] [address] Jun, [facility] [place] [facility] [address] [id number] [place] [address] Jun, [facility] [place] [facility] [address] [id number] [place] [address] Jun, [facility] [place] [facility] [address] [id number] [place] [address] Jun, [facility] [place] [facility] [address] [id number] [place] [address] May, [facility] [place] [facility] [address] [id number] [place] [address] May, [facility] [place] [facility] [address] [id number] [place] [address] Apr, [facility] [place] [facility] [address] [id number] [place] [address] Apr, [facility] [place] [facility] [address] [id number] [place] [address] Apr, [facility] [place] [facility] [address] [id number] [place] [address] Apr, [facility] [place] [facility] [address] [id number] [place] [address] Mar, [facility] [place] [facility] [address] [id number] [place] [address] Mar, [facility] [place] [facility] [address] [id number] [place] [address] Mar, [facility] [place] [facility] [address] [id number] [place] [address] Mar, [facility] [place] [facility] [address] [id number] [place] [address] Mar, [facility] [place] [facility] [address] [id number] [place] [address] Mar, [facility] [place] [facility] [address] [id number] [place] [address] Feb, [facility] [place] [facility] [address] [id number] [place] [address] Feb, [facility] [place] [facility] [address] [id number] [place] [address] Jan, [facility] [place] [facility] [address] [id number] [place] [address] Jan, [facility] [place] [facility] [address] [id number] [place] [address] Jan, [facility] [place] [facility] [address] [id number] [place] [address] Jan, [facility] [place] [facility] [address] [id number] [place] [address] Nov, [facility] [place] [facility] [address] [id number] [place] [address] Nov, [facility] [place] [facility] [address] [id number] [place] [address] Oct, [facility] [address] [id number] [place] [address] Oct, [facility] [place] [facility] [address] [id number] [place] [address] Sep, [facility] [address] [id number] [place] [address] Sep, [facility] [address] [id number] [place] [address] Sep, [facility] [address] [id number] [place] [address] Aug, [facility] [place] [facility] [address] [id number] [place] [address] Aug, [facility] [place] [facility] [address] [id number] [place] [address] Aug, [facility] [place] [facility] [address] [id number] [place] [address] Aug, [facility] [place] [facility] [address] [id number] [place] [address] July, [facility] [place] [facility] [address] [id number] [place] [address] July, [facility] [place] [facility] [address] [id number] [place] [address] July, [facility] [place] [facility] [address] [id number], [place] [address] July, [facility] [address] [id number] [place] [address] Jun, [facility] [address] [id number] [place] [address] Jun, [facility] [address] [id number] [place] [address] Jun, [facility] [address] [id number] [place] [address] May, [facility] [address] [id number] [place] [address] May, [facility] [address] [id number] [place] [address] Apr, [facility] [address] [id number] [place] [address] Apr, [facility] [address] [id number] [place] [address] Apr, [facility] [address] [id number] [place] [address] Apr, [facility] [address] [facility] [id number] [place] [address] Mar, [facility] [address] [id number] [place] [address] Mar, [facility] [place] [facility] [address] [id number] [place] [address] Mar, [facility] [place] [facility] [address] [id number] [place] [address] Mar, [facility] [place] [facility] [address] [id number] [place] [address] Feb, [facility] [address] [facility] [id number] [place] [address] Feb, [facility] [place] [facility] [address] [id number] [place] [address] 10 Feb, 2012 [facility] [place] [facility] [address] [id number] [place] [address] 10 Feb, 2012 [facility] [place] [facility] [address] [id number] [place] [address] 10 Feb, 2012 [facility] [place] [facility] [address] [id number] [place] [address] 06 Feb, 2012 [facility] [place] [facility] [address] [id number] [place] [address] 04 Feb, 2012 [facility] [place] [facility] [address] [id number] [place] [address] 04 Feb, 2012 [facility] [place] [facility] [address] [id number] [place] [address] 28 Jan, 2012 [facility] [place] [facility] [address] [id number] [place] [address] 28 Jan, 2012 [facility] [place] [facility] [address] [id number] [place] [address] 15 Jan, 2012 [facility] [place] [facility] [address] [id number] [place] [address] 15 Jan, 2012 [facility] [place] [facility] [address] [id number] [place] [address] 14 Jan, 2012 [facility] [place] [facility] [address] [id number] [place] [address] 13 Jan, 2012 [facility] [place] [facility] [address] [id number] [place] [address] 13 Jan, 2012 [facility] [place] [facility] [address] [id number] [place] [address] 12 Jan, 2012 [facility] [place] [facility] [address] [id number] [place] [address] 12 Jan, 2012 [facility] [place] [facility] [address] [id number] [place] [address] Jan, [facility] [place] [facility] [address] [id number] [place] [address] Jan, [facility] [place] [facility] [address] [id number] [place] [address] Dec, [facility] [place] [facility] [address] [facility] [id number] [place] [address] Dec, [facility] [place] [facility] [address] [id number] [place] [address] Dec, [facility] [place] [facility] [address] [id number] [place] [address] Dec, [facility] [place] [facility] [address] [id number] [place] [address] Dec, [facility] [place] [facility] [address] [id number] [place] [address] Dec, [facility] [place] [facility] [address] [id number], [place] [address] Dec, [facility] [place] [facility] [address] [id number], [place] [address] Dec, [facility] [place] [facility] [address] [facility] [id number], [place] [address] Dec, [facility] [place] [facility] [address] [id number], [place] [address] Dec, [facility] [place] [facility] [address] [id number], [place] [address] Dec, [facility] [place] [facility] [address] [id number], [place] [address] Dec, [facility] [place] [facility] [address] [facility] [id number], [place] [address] Nov, [facility] [place] [facility] [address] [facility] [id number], [place] [address] Oct, [facility] [place] [facility] [address] [id number] [place] [address] Oct, [facility] [address] [id number] [place] [address] Oct, [facility] [address] [id number] [place] [address] Oct, [facility] [address] [id number] [place] [address] Sep, [facility] [address] [id number] [place] [address] Sep, [facility] [address] [id number] [place] [address] Sep, [facility] [address] [id number] [place] [address] Sep, [facility] [address] [facility] [id number] [place] [address] Aug, [facility] [address] [id number] [place] [address] Aug, [facility] [address] [facility] [id number] [place] [address] Aug, [facility] [address] [facility] [id number] [place] [address] Aug, [facility] [address] [facility] [id number] [place] [address] Aug, [facility] [address] [id number] [place] [address] July, [facility] [address] [id number] [place] [address] July, [facility] [address] [facility] [id number] [place] [address] July, [facility] [address] [id number] [place] [address] Dec, IMMUNIZATIONS No Known Immunizations SOCIAL HISTORY Never Assessed REASON FOR VISIT EMR-[facility] PLAN OF CARE VITAL SIGNS MEDICATIONS Unknown [...]
--- OUTSIDE RECORDS SUMMARY | 2018-10-24 12:14 | XMS REPORT ---
Author Author NELSON DIANN [facility] Address [address] [place] [address] Care Team Providers Care Immigration Officer Name Role Phone DORIS DAMONY Unavailable PROBLEMS Type Condition ICD9-CM Code HLC03-JQ Code Onset Dates Condition Status SNOMED Code Problem Fibromyalgia M79.7 Active 95180969 Problem Tinnitus of both ears H93.13 Active 2552437445425 Problem Irritable bowel syndrome without diarrhea K58.9 Active 53628339 Problem COPD exacerbation J44.1 Active 679904823 Problem Menopausal symptoms N95.1 Active 98163144 Problem On antiepileptic therapy Z79.899 Active 672686458 Problem Chronic obstructive pulmonary disease, unspecified COPD type J44.9 Active 86480807 Problem Irritable bowel syndrome with diarrhea K58.0 Active 892453916 Problem Vitamin D deficiency E55.9 Active 44205477 Problem MRSA (methicillin resistant staph aureus) culture positive Z22.322 Active 798625603 Problem Chronic periodontal disease K05.6 Active 4457662 Problem Epilepsy G40.909 Active 88963882 Problem Generalized anxiety disorder F41.1 Active 705513688 Problem Interstitial cystitis N30.10 Active 069780737 Problem Esophageal reflux K21.9 Active 154256499 Problem Major depressive disorder F32.9 Active 685007804 Problem Lumbago M54.5 Active 704009191 ALLERGIES No Information ENCOUNTERS Encounter Location Date Diagnosis [facility], [place] [address] [facility] [id number] [address] Feb, [facility], [place] [address] [facility] [id number] [place] [address] Jan, Fibromyalgia M79.7 [facility] [address] [facility] [id number] [place] [id number] Dec, [facility] [address] [facility] [id number] [place] [id number] Dec, [facility], [place] [id number] [place] [address] Dec, Fibromyalgia M79.7 [facility], [place] [id number] [place] [address] Dec, [facility], [place] [id number] [place] [address] Oct, [facility] [id number] [place] [id number] Oct, [facility], [place] [address] [address] Oct, [facility], [place] [id number] [place] [address] Sep, [facility], [place] [address] [address] Sep, [facility], [place] [id number] [place] [address] Sep, [facility] [id number] [place] [id number] Aug, Dental examination Z01.20 [facility], [place] [id number] [place] [address] Aug, Abscess of axilla, left L02.412 [facility], [place] [id number] [place] [address] Aug, Esophageal reflux K21.9 [facility], [place] [id number] [place] [address] Aug, [facility], [place] [address] [address] Aug, Esophageal reflux K21.9 ; Fluid level behind tympanic membrane of right ear H65.91 ; Fibromyalgia M79.7 and Lumbago M54.5 [facility], [place] [id number] [place] [address] Aug, Esophageal reflux K21.9 [facility], [place] [address] [place] [address] July, [facility], [place] [address] [address] July, [facility], [place] [id number] [place] [address] July, Chronic obstructive pulmonary disease, unspecified COPD type J44.9 [facility], [place] [id number] [place] [address] July, [facility], [place] [id number] [place] [address] July, [facility], [place] [id number] [place] [address] July, Interstitial cystitis N30.10 ; Fibromyalgia M79.7 [...] Dysuria R30.0 and Generalized anxiety disorder F41.1 [facility], [place] [address] [address] Jun, [facility], [place] [address] [address] Jun, Chronic obstructive pulmonary disease, unspecified COPD type J44.9 ; COPD exacerbation J44.1 and Sore throat J02.9 [facility], [place] [address] [address] Jun, Fibromyalgia M79.7 [facility] [id number] [place] [address] Jun, Fibromyalgia M79.7 [facility], [place] [id number] [place] [address] May, [facility], [place] [id number] [place] [address] May, [facility], [place] [id number] [place] [address] May, Fibromyalgia M79.7 [facility], [place] [id number] [place] [address] Mar, [facility], [place] [id number] [place] [address] Mar, Epilepsy G40.909 ; Lumbago M54.5 ; Esophageal reflux K21.9 ; Fibromyalgia M79.7 ; Chronic obstructive pulmonary disease, unspecified COPD type J44.9 ; Vitamin D deficiency E55.9 ; Fluid level behind tympanic membrane of right ear H65.91 ; Irritable bowel syndrome with diarrhea K58.0 ; Hematochezia K92.1 and Generalized anxiety disorder F41.1 [facility], [place] [id number] [place] [address] Mar, [facility], [place] [id number] [place] [address] Mar, [facility], [place] [id number] [place] [address] Mar, Vitamin D deficiency E55.9 [facility], [place] [id number] [place] [address] Feb, [facility], [place] [id number] [place] [address] Feb, [facility], [place] [id number] [place] [address] Jan, Fibromyalgia M79.7 [facility], [place] [id number] [place] [address] Jan, [facility], [place] [id number] [place] [address] Jan, [facility], [place] [address] [address] Jan, Vitamin D deficiency E55.9 [facility], [place] [address] [address] Dec, [facility], [place] [address] [address] Dec, [facility], [place] [address] [address] Dec, Generalized anxiety disorder F41.1 [facility], [place] [address] [address] Dec, Dysuria R30.0 ; Acute bilateral low back pain without sciatica M54.5 and Encounter for immunization Z23 [facility], [place] [id number] [place] [address] Oct, [facility], [place] [address] [address] Oct, Fibromyalgia M79.7 [facility], [place] [id number] [place] [address] Sep, Dysuria R30.0 and Acute bronchitis, unspecified organism J20.9 [facility], [place] [id number] [place] [address] Sep, [facility], [place] [id number] [place] [address] Sep, Rectal prolapse K62.3 [facility], [place] [id number] [place] [address] Sep, Chronic obstructive pulmonary disease, unspecified COPD type J44.9 [facility] [address] [id number] Aug, [facility] [id number] [place] [id number] Aug, [facility] [address] [address] Aug, Light headedness R42 ; On antiepileptic therapy Z79.899 ; Vitamin D deficiency E55.9 ; Screening for lipid disorders Z13.220 ; Dysuria R30.0 and Hemorrhoids, unspecified hemorrhoid type K64.9 [place] [address] [address] Aug, Internal prolapsed hemorrhoids 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 [facility] [address] [address] July, [facility] [address] [address] May, [facility] [address] [address] May, Fever and chills R50.9 and Influenza B J10.[address] [address] Apr, [place] [address] [address] Apr, Fibromyalgia M79.7 and Generalized anxiety disorder F41.[address] [address] Mar, Esophageal reflux K21.9 ; Generalized anxiety disorder F41.1 and Epilepsy G40.909 [facility] [id number] [place] [address] Mar, Epilepsy G40.909 ; Esophageal reflux K21.9 [...] On antiepileptic therapy Z79.899 [facility], [place] [id number] [place] [address] Feb, [facility], [place] [id number] [place] [address] Feb, [facility] [id number] [place] [address] Feb, Dysuria R30.0 and Plantar fasciitis of right foot M72.2 [facility], [place] [id number] [place] [address] Feb, [facility], [place] [id number] [place] [address] Feb, [facility], [place] [id number] [place] [address] Jan, [facility], [place] [id number] [place] [address] Jan, [facility], [place] [id number] [place] [address] Dec, [facility], [place] [id number] [place] [address] Dec, [facility], [place] [id number] [place] [address] Dec, [facility], [place] [id number] [place] [address] Nov, [facility], [place] [id number] [place] [address] Sep, [facility] [id number] [place] [address] Aug, Shortness of breath R06.02 and Acute suppurative otitis media of right ear without spontaneous rupture of tympanic membrane, recurrence not specified H66.001 [facility] [id number] [place] [address] 14 Aug, 2015 Internal prolapsed hemorrhoids 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 [place] [address] [address] 06 Jun, 2015 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 [place] [address] [address] May, Fibromyalgia M79.7 ; Interstitial cystitis N30.10 ; Intractable migraine without aura and without status migrainosus G43.019 ; Low vitamin D level E55.9 and Ringing in right ear H93.11 [place] [address] [address] May, [place] [address] [address] May, Low vitamin D level E55.9 [place] [place] [address] [address] Apr, [place] [address] [address] Mar, [facility] [id number] [place] [address] Mar, Acute suppurative otitis media of right ear without spontaneous rupture of tympanic membrane, recurrence not specified H66.001 ; Encounter for immunization Z23 ; Asthma with acute exacerbation, unspecified asthma severity J45.901 ; Memory problem R41.3 ; Acute pain of right knee M25.561 ; Chronic fatigue R53.82 and Excessive urinary volume R35.8 [place] [address] [address] Feb, [address] [address] Feb, [address] [address] Jan, [facility], [place] [address] [place] [address] Nov, Esophageal reflux 530.81 ; Anxiety 300.00 and Tingling in extremities 782.0 [facility], [place] [id number] [place] [address] Oct, [facility], [place] [id number] [place] [address] Oct, [facility], [place] [id number] [place] [address] Oct, [facility], [place] [id number] [place] [address] Oct, [facility], [place] [id number] [place] [address] Oct, [facility], [place] [id number] [place] [address] Sep, Other chronic allergic conjunctivitis 372.14 ; Irritable bowel syndrome 564.1 ; 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 ; Fibromyalgia 729.1 ; Extremity pain 729.5 and Neck pain 723.1 [facility], [place] [id number] [place] [address] Sep, [facility], [place] [address] [place] [address] Aug, [facility], [place] [id number] [place] [address] Aug, [facility], [place] [id number] [place] [address] July, Vomiting 787.03 [facility] [id number] [place] [id number] July, Dental examination V72.2 [facility], [place] [id number] [place] [address] Jun, [facility] [place] [facility] [address] [id number] [place] [address] 13 Jun, 2014 [facility] [place] [facility] [address] [id number] [place] [address] May, [facility] [place] [facility] [address] [id number] [place] [address] May, [facility] [place] [facility] [address] [id number] [place] [address] May, [facility] [place] [facility] [address] [id number] [place] [address] May, [facility] [place] [facility] [address] [id number] [place] [address] May, [facility] [place] [facility] [address] [id number] [place] [address] May, [facility] [place] [facility] [address] [id number] [place] [address] May, [facility] [place] [facility] [address] [id number] [place] [address] May, [facility] [place] [facility] [address] [id number] [place] [address] May, [facility] [place] [facility] [address] [id number] [place] [address] Apr, [facility] [place] [facility] [address] [id number] [place] [address] Apr, [facility] [place] [facility] [address] [id number] [place] [address] Apr, [facility] [place] [facility] [address] [id number] [place] [address] Apr, [facility] [place] [facility] [address] [id number] [place] [address] 05 Apr, 2014 [facility] [place] [facility] [address] [id number] [place] [address] Apr, [facility] [place] [facility] [address] [id number] [place] [address] Mar, [facility] [place] [facility] [address] [id number] [place] [address] Mar, [facility] [place] [facility] [address] [id number] [place] [address] Mar, [facility] [place] [facility] [address] [id number] [place] [address] Mar, [facility] [place] [facility] [address] [id number] [place] [address] Mar, [facility] [place] [facility] [address] [id number] [place] [address] Mar, [facility] [place] [facility] [address] [id number] [place] [address] Mar, [facility] [place] [facility] [address] [id number] [place] [address] Mar, [facility] [place] [facility] [address] [id number] [place] [address] Mar, [facility] [place] [facility] [address] [id number] [place] [address] Mar, [facility] [place] [facility] [address] [id number] [place] [address] Mar, [facility] [place] [facility] [address] [id number] [place] [address] Mar, [facility] [place] [facility] [address] [id number] [place] [address] Mar, [facility] [place] [facility] [address] [id number] [place] [address] Mar, [facility] [place] [facility] [address] [id number] [place] [address] Mar, [facility] [place] [facility] [address] [id number] [place] [address] 15 Mar, 2014 [facility] [place] [facility] [address] [id number] [place] [address] 15 Mar, 2014 [facility] [place] [facility] [address] [id number] [place] [address] 09 Mar, 2014 [facility] [place] [facility] [address] [id number] [place] [address] Mar, [facility] [place] [facility] [address] [id number] [place] [address] Feb, [facility] [place] [facility] [address] [id number] [place] [address] 18 Feb, 2014 [facility] [place] [facility] [address] [id number] [place] [address] Feb, [facility] [place] [facility] [address] [id number] [place] [address] Feb, [facility] [place] [facility] [address] [id number] [place] [address] Jan, [facility] [place] [facility] [address] [id number] [place] [address] 20 Jan, 2014 [facility] [place] [facility] [address] [id number] [place] [address] 14 Jan, 2014 [facility] [place] [facility] [address] [id number] [place] [address] 14 Jan, 2014 [facility] [place] [facility] [address] [id number] [place] [address] 14 Jan, 2014 [facility] [place] [facility] [address] [id number] [place] [address] 14 Jan, 2014 [facility] [place] [facility] [address] [id number] [place] [address] 07 Jan, 2014 [facility] [place] [facility] [address] [id number] [place] [address] Jan, [facility] [place] [facility] [address] [id number] [place] [address] Dec, [facility] [place] [facility] [address] [id number] [place] [address] Dec, [facility] [place] [facility] [address] [id number] [place] [address] Dec, [facility] [place] [facility] [address] [id number] [place] [address] 17 Dec, 2013 [facility] [place] [facility] [address] [id number] [place] [address] 22 Nov, 2013 [facility] [place] [facility] [address] [id number] [place] [address] 22 Nov, 2013 [facility] [place] [facility] [address] [id number] [place] [address] 08 Nov, 2013 [facility] [place] [facility] [address] [id number] [place] [address] 08 Sep, 2013 [facility] [place] [facility] [address] [id number] [place] [address] 05 Sep, 2013 [facility] [place] [facility] [address] [id number] [place] [address] 05 Sep, 2013 [facility] [place] [facility] [address] [id number] [place] [address] 04 Sep, 2013 [facility] [place] [facility] [address] [id number] [place] [address] 04 Sep, 2013 [facility] [place] [facility] [address] [id number] [place] [address] 03 Sep, 2013 [facility] [place] [facility] [address] [id number] [place] [address] 03 Sep, 2013 [facility] [place] [facility] [address] [id number] [place] [address] 15 Oct, 2013 [facility] [place] [facility] [address] [id number] [place] [address] Oct, [facility] [place] [facility] [address] [id number] [place] [address] Sep, [facility] [place] [facility] [address] [id number] [place] [address] Sep, [facility] [place] [facility] [address] [id number] [place] [address] Sep, [facility] [place] [facility] [address] [id number] [place] [address] Sep, [facility] [place] [facility] [address] [id number] [place] [address] Sep, [facility] [place] [facility] [address] [id number] [place] [address] Sep, [facility] [place] [facility] [address] [id number] [place] [address] Aug, [facility] [place] [facility] [address] [id number] [place] [address] Aug, [facility] [place] [facility] [address] [id number] [place] [address] Aug, [facility] [place] [facility] [address] [id number] [place] [address] Aug, [facility] [place] [facility] [address] [id number] [place] [address] Aug, [facility] [place] [facility] [address] [id number] [place] [address] Aug, [facility] [place] [facility] [address] [id number] [place] [address] July, [facility] [place] [facility] [address] [id number] [place] [address] July, [facility] [place] [facility] [address] [id number] [place] [address] July, [facility] [place] [facility] [address] [id number] [place] [address] July, [facility] [place] [facility] [address] [id number] [place] [address] July, [facility] [place] [facility] [address] [id number] [place] [address] July, [facility] [place] [facility] [address] [id number] [place] [address] Jun, [facility] [place] [facility] [address] [id number] [place] [address] Jun, [facility] [place] [facility] [address] [id number] [place] [address] Jun, [facility] [place] [facility] [address] [id number] [place] [address] Jun, [facility] [place] [facility] [address] [id number] [place] [address] May, [facility] [place] [facility] [address] [id number] [place] [address] May, [facility] [place] [facility] [address] [id number] [place] [address] Apr, [facility] [place] [facility] [address] [id number] [place] [address] Apr, [facility] [place] [facility] [address] [id number] [place] [address] Apr, [facility] [place] [facility] [address] [id number] [place] [address] Apr, [facility] [place] [facility] [address] [id number] [place] [address] Mar, [facility] [place] [facility] [address] [id number] [place] [address] Mar, [facility] [place] [facility] [address] [id number] [place] [address] Mar, [facility] [address] [id number] [place] [address] Mar, [facility] [place] [facility] [address] [id number] [place] [address] Mar, [facility] [address] [id number] [place] [address] Mar, [facility] [place] [facility] [address] [id number] [place] [address] Feb, [facility] [address] [id number] [place] [address] Feb, [facility] [place] [facility] [address] [id number] [place] [address] Jan, [facility] [address] [id number] [place] [address] Jan, [facility] [place] [facility] [address] [id number] [place] [address] Jan, [facility] [place] [facility] [address] [id number] [place] [address] Jan, [facility] [facility] [address] [id number] [place] [address] Nov, [facility] [place] [facility] [address] [id number] [place] [address] Nov, [facility] [place] [facility] [address] [id number] [place] [address] Oct, [facility] [place] [facility] [address] [id number] [place] [address] Oct, [facility] [place] [facility] [address] [id number] [place] [address] Sep, [facility] [place] [facility] [address] [id number] [place] [address] Sep, [facility] [place] [facility] [address] [id number] [place] [address] Sep, [facility] [address] [id number] [place] [address] Aug, [facility] [address] [id number] [place] [address] Aug, [facility] [address] [id number] [place] [address] Aug, [facility] [address] [id number] [place] [address] Aug, [facility] [address] [id number] [place] [address] July, [facility] [address] [id number] [place] [address] July, [facility] [address] [id number] [place] [address] July, [facility] [address] [id number] [place] [address] July, [facility] [address] [id number] [place] [address] Jun, [facility] [address] [id number] [place] [address] Jun, [facility] [address] [id number] [place] [address] Jun, [facility] [address] [id number] [place] [address] May, [facility] [facility] [address] [id number] [place] [address] May, [facility] [address] [id number] [place] [address] Apr, [facility] [address] [id number] [place] [address] Apr, [facility] [address] [id number] [place] [address] Apr, [facility] [address] [id number] [place] [address] Apr, [facility] [address] [id number] [place] [address] Mar, [facility] [address] [id number] [place] [address] Mar, [facility] [address] [id number] [place] [address] Mar, [facility] [address] [id number] [place] [address] Mar, [facility] [address] [id number] [place] [address] Feb, [facility] [address] [id number] [place] [address] Feb, [facility] [address] [id number] [place] [address] Feb, [facility] [address] [facility] [id number] [place] [address] Feb, [facility] [address] [id number] [place] [address] Feb, [facility] [address] [id number] [place] [address] Feb, [facility] [facility] [address] [id number] [place] [address] Feb, [facility] [facility] [address] [id number] [place] [address] Feb, [facility] [facility] [address] [facility] [id number] [place] [address] Jan, [facility] [address] [id number] [place] [address] 28 Jan, 2012 [facility] [address] [id number] [place] [address] 15 Jan, 2012 [facility] [address] [id number] [place] [address] 15 Jan, 2012 [facility] [address] [id number] [place] [address] 14 Jan, 2012 [facility] [address] [id number] [place] [address] 13 Jan, 2012 [facility] [address] [id number] [place] [address] 13 Jan, 2012 [facility] [address] [id number] [place] [address] 12 Jan, 2012 [facility] [address] [id number] [place] [address] Jan, [facility] [address] [id number] [place] [address] Jan, [facility] [facility] [address] [id number] [place] [address] Jan, [facility] [facility] [address] [facility] [id number] [place] [address] Dec, [facility] [address] [id number] [place] [address] 31 Dec, 2011 [facility] [address] [id number] [place] [address] 29 Dec, 2011 [facility] [address] [id number] [place] [address] 29 Dec, 2011 [facility] [place] [facility] [address] [id number] [place] [address] Dec, [facility] [address] [id number] [place] [address] Dec, [facility] [address] [id number] [place] [address] Dec, [facility] [address] [id number] [place] [address] Dec, [facility] [address] [id number] [place] [address] Dec, [facility] [address] [id number] [place] [address] Dec, [facility] [address] [id number] [place] [address] Dec, [facility] [address] [id number] [place] [address] Dec, [facility] [address] [id number] [place] [address] Nov, [facility] [address] [id number] [place] [address] Oct, [facility] [address] [id number] [place] [address] Oct, [facility] [address] [id number] [place] [address] Oct, [facility] [address] [id number] [place] [address] Oct, [facility] [address] [id number] [place] [address] Sep, [facility] [address] [id number] [place] [address] Sep, [facility] [address] [id number] [place] [address] Sep, [facility] [address] [id number] [place] [address] Sep, [facility] [address] [id number] [place] [address] Aug, [facility] [place] [address] [id number] [address] Aug, [facility] [place] [address] [id number] [address] Aug, [facility] [place] [id number] [place] [address] Aug, [facility] [place] [id number] [place] [address] Aug, [facility] [place] [id number] [place] [address] July, [facility] [place] [id number] [place] [address] July, [facility] [place] [id number] [address] July, [facility] [place] [address] [id number] [address] Dec, IMMUNIZATIONS No Known Immunizations SOCIAL HISTORY Never Assessed REASON FOR VISIT Controlled medication Refill-Due 01/14/18 PLAN OF CARE VITAL SIGNS MEDICATIONS Medication Instructions Dosage Frequency Start Date End Date Duration Status Lyrica 150 MG Orally Twice a day 1 capsule 12h Sep, 28 days Active RESULTS No Results PROCEDURES No Known [...]
--- OUTSIDE RECORDS SUMMARY | 2018-10-24 12:14 | XMS REPORT ---
Author Author [facility] Address [address] [place] [address] Care Team Providers Care Resident Surgeon Name Role Phone DORIS DAMONY Unavailable PROBLEMS Type Condition ICD9-CM Code ONW14-VC Code Onset Dates Condition Status SNOMED Code Problem Fibromyalgia M79.7 Active 80227602 Problem Tinnitus of both ears H93.13 Active 3215803785067 Problem Irritable bowel syndrome without diarrhea K58.9 Active 81110026 Problem COPD exacerbation J44.1 Active 423794616 Problem Menopausal symptoms N95.1 Active 74815543 Problem On antiepileptic therapy Z79.899 Active 990129058 Problem Chronic obstructive pulmonary disease, unspecified COPD type J44.9 Active 52155738 Problem Irritable bowel syndrome with diarrhea K58.0 Active 437134565 Problem Vitamin D deficiency E55.9 Active 70707728 Problem MRSA (methicillin resistant staph aureus) culture positive Z22.322 Active 096711229 Problem Chronic periodontal disease K05.6 Active 5254139 Problem Epilepsy G40.909 Active 20020431 Problem Generalized anxiety disorder F41.1 Active 663880864 Problem Interstitial cystitis N30.10 Active 481227597 Problem Esophageal reflux K21.9 Active 137833254 Problem Major depressive disorder F32.9 Active 269067608 Problem Lumbago M54.5 Active 690141849 ALLERGIES No Information ENCOUNTERS Encounter Location Date Diagnosis [facility] [address] [facility] [id number] [address] Feb, [facility] [address] [facility] [id number], [place] [address] Jan, Fibromyalgia M79.7 [facility] [address] [facility] [id number] [id number] Dec, [facility] [address] [id number] [id number] Dec, [facility] [id number] [place] [address] Dec, Fibromyalgia M79.7 [facility] [id number] [place] [address] Dec, [facility] [id number] [place] [address] Oct, [facility] [id number] [place] [id number] Oct, [facility] [address] [address] Oct, [facility] [id number] [place] [address] Sep, [facility] [address] [address] Sep, [facility] [id number] [place] [address] Sep, [facility] [id number] [place] [id number] Aug, Dental examination Z01.20 [facility] [id number] [place] [address] Aug, Abscess of axilla, left L02.412 [facility] [id number] [place] [address] Aug, Esophageal reflux K21.9 [facility] [id number] [place] [address] Aug, [facility] [address] [address] Aug, Esophageal reflux K21.9 ; Fluid level behind tympanic membrane of right ear H65.91 ; Fibromyalgia M79.7 and Lumbago M54.5 [facility] [id number] [place] [address] Aug, Esophageal reflux K21.9 [facility] [address] [address] July, [facility] [address] [address] July, [facility] [address] [place] [address] July, Chronic obstructive pulmonary disease, unspecified COPD type J44.9 [facility] [id number] [place] [address] July, [facility] [id number] [place] [address] July, [facility] [id number] [place] [address] July, Interstitial cystitis N30.10 ; Fibromyalgia M79.7 [...] Dysuria R30.0 and Generalized anxiety disorder F41.1 [facility] [address] [address] Jun, [facility] [address] [address] Jun, Chronic obstructive pulmonary disease, unspecified COPD type J44.9 ; COPD exacerbation J44.1 and Sore throat J02.9 [facility] [address], [place] [address] Jun, Fibromyalgia M79.7 [facility] [id number] [place] [address] Jun, Fibromyalgia M79.7 [facility] [id number] [place] [address] May, [facility] [id number] [place] [address] May, [facility] [id number] [place] [address] May, Fibromyalgia M79.7 [facility] [id number] [place] [address] Mar, [facility] [id number] [place] [address] Mar, Epilepsy G40.909 ; Lumbago M54.5 ; Esophageal reflux K21.9 ; Fibromyalgia M79.7 ; Chronic obstructive pulmonary disease, unspecified COPD type J44.9 ; Vitamin D deficiency E55.9 ; Fluid level behind tympanic membrane of right ear H65.91 ; Irritable bowel syndrome with diarrhea K58.0 ; Hematochezia K92.1 and Generalized anxiety disorder F41.1 [facility] [id number] [place] [address] Mar, [facility] [id number] [place] [address] Mar, [facility] [id number] [place] [address] Mar, Vitamin D deficiency E55.9 [facility] [id number] [place] [address] Feb, [facility] [id number] [place] [address] Feb, [facility] [id number] [place] [address] Jan, Fibromyalgia M79.7 [facility] [id number] [place] [address] Jan, [facility] [id number] [place] [address] Jan, [facility] [address] [address] Jan, Vitamin D deficiency E55.9 [facility] [address] [address] Dec, [facility] [address] [address] Dec, [facility] [address] [address] Dec, Generalized anxiety disorder F41.1 [facility] [address] [address] Dec, Dysuria R30.0 ; Acute bilateral low back pain without sciatica M54.5 and Encounter for immunization Z23 [facility] [id number] [place] [address] Oct, [facility] [address] [address] Oct, Fibromyalgia M79.7 [facility] [id number] [place] [address] Sep, Dysuria R30.0 and Acute bronchitis, unspecified organism J20.9 [facility] [id number] [place] [address] Sep, [facility] [id number] [place] [address] Sep, Rectal prolapse K62.3 [facility] [id number] [place] [address] Sep, Chronic obstructive pulmonary disease, unspecified COPD type J44.9 [facility] [address] [id number] Aug, [facility] [id number] [place] [id number] Aug, [place] [facility] [address] [address] Aug, Light headedness R42 ; On antiepileptic therapy Z79.899 ; Vitamin D deficiency E55.9 ; Screening for lipid disorders Z13.220 ; Dysuria R30.0 and Hemorrhoids, unspecified hemorrhoid type K64.9 [place] [facility] [address] [address] Aug, Internal prolapsed hemorrhoids K64.8 [place] [address] [address] July, [place] [facility] [address] [address] May, [place] [facility] [address] [address] May, Fever and chills R50.9 and Influenza B J10.[address] [address] Apr, [place] [address] [address] Apr, Fibromyalgia M79.7 and Generalized anxiety disorder F41.[address] [address] Mar, Esophageal reflux K21.9 ; Generalized anxiety disorder F41.1 and Epilepsy G40.909 [facility] [id number] [place] [address] Mar, Epilepsy G40.909 ; Esophageal reflux K21.9 ; Fibromyalgia M79.7 ; Generalized anxiety disorder F41.1 ; Pain of left foot M79.672 ; Pain in right foot M79.671 ; Ear pain, right H92.01 ; Tinnitus of both ears H93.13 ; Chronic obstructive pulmonary disease, unspecified COPD type J44.9 ; Vitamin D deficiency E55.9 ; Screening for lipid disorders Z13.220 and On antiepileptic therapy Z79.899 [facility] [id number] [place] [address] Feb, [facility] [id number] [place] [address] Feb, [facility] [id number] [place] [address] Feb, Dysuria R30.0 and Plantar fasciitis of right foot M72.2 [facility] [id number] [place] [address] Feb, [facility] [id number] [place] [address] Feb, [facility] [id number] [place] [address] Jan, [facility] [id number] [place] [address] Jan, [facility] [id number] [place] [address] Dec, [facility] [id number] [place] [address] Dec, [facility] [id number] [place] [address] Dec, [facility] [id number] [place] [address] Nov, [facility] [id number] [place] [address] Sep, [facility] [id number] [place] [address] Aug, Shortness of breath R06.02 and Acute suppurative otitis media of right ear without spontaneous rupture of tympanic membrane, recurrence not specified H66.001 [place] [facility] [id number] [place] [address] 14 Aug, 2015 Internal prolapsed hemorrhoids K64.8 [place] [address] [address] 06 Jun, 2015 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 [place] [address] [address] May, Fibromyalgia M79.7 ; Interstitial cystitis N30.10 ; Intractable migraine without aura and without status migrainosus G43.019 ; Low vitamin D level E55.9 and Ringing in right ear H93.11 [place] [address] [address] May, [place] [address] [address] May, Low vitamin D level E55.9 [place] [address] [address] Apr, [place] [address] [address] Mar, [place] [facility] [id number] [place] [address] Mar, Acute suppurative otitis media of right ear without spontaneous rupture of tympanic membrane, recurrence not specified H66.001 ; Encounter for immunization Z23 ; Asthma with acute exacerbation, unspecified asthma severity J45.901 ; Memory problem R41.3 ; Acute pain of right knee M25.561 ; Chronic fatigue R53.82 and Excessive urinary volume R35.8 [place] [address] [address] Feb, [address] [address] Feb, [address] [address] Jan, [facility] [address] [place] [address] Nov, Esophageal reflux 530.81 ; Anxiety 300.00 and Tingling in extremities 782.0 [facility] [id number] [place] [address] Oct, [facility] [id number] [place] [address] Oct, [facility] [id number] [place] [address] Oct, [facility] [id number] [place] [address] Oct, [facility] [id number] [place] [address] Oct, [facility] [id number] [place] [address] Sep, Other chronic allergic conjunctivitis 372.14 ; Irritable bowel syndrome 564.1 ; 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 ; Fibromyalgia 729.1 ; Extremity pain 729.5 and Neck pain 723.1 [facility] [id number] [place] [address] Sep, [facility] [address] [place] [address] Aug, [facility] [id number] [place] [address] Aug, [facility] [id number] [place] [address] July, Vomiting 787.03 [facility] [id number] [place] [id number] July, Dental examination V72.2 [facility] [id number] [place] [address] Jun, [facility] [place] [facility] [address] [id number] [place] [address] 13 Jun, 2014 [facility] [place] [facility] [address] [id number] [place] [address] May, [facility] [place] [facility] [address] [id number] [place] [address] May, [facility] [place] [facility] [address] [id number] [place] [address] May, [facility] [place] [facility] [address] [id number] [place] [address] May, [facility] [place] [facility] [address] [id number] [place] [address] May, [facility] [place] [facility] [address] [id number] [place] [address] May, [facility] [place] [facility] [address] [id number] [place] [address] May, [facility] [place] [facility] [address] [id number] [place] [address] May, [facility] [place] [facility] [address] [id number] [place] [address] May, [facility] [place] [facility] [address] [id number] [place] [address] Apr, [facility] [place] [facility] [address] [id number] [place] [address] Apr, [facility] [place] [facility] [address] [id number] [place] [address] Apr, [facility] [place] [facility] [address] [id number] [place] [address] Apr, [facility] [place] [facility] [address] [id number] [place] [address] 05 Apr, 2014 [facility] [place] [facility] [address] [id number] [place] [address] Apr, [facility] [place] [facility] [address] [id number] [place] [address] Mar, [facility] [place] [facility] [address] [id number] [place] [address] Mar, [facility] [place] [facility] [address] [id number] [place] [address] Mar, [facility] [place] [facility] [address] [id number] [place] [address] Mar, [facility] [place] [facility] [address] [id number] [place] [address] Mar, [facility] [place] [facility] [address] [id number] [place] [address] Mar, [facility] [place] [facility] [address] [id number] [place] [address] Mar, [facility] [place] [facility] [address] [id number] [place] [address] Mar, [facility] [place] [facility] [address] [id number] [place] [address] Mar, [facility] [place] [facility] [address] [id number] [place] [address] Mar, [facility] [place] [facility] [address] [id number] [place] [address] Mar, [facility] [place] [facility] [address] [id number] [place] [address] Mar, [facility] [place] [facility] [address] [id number] [place] [address] Mar, [facility] [place] [facility] [address] [id number] [place] [address] Mar, [facility] [place] [facility] [address] [id number] [place] [address] Mar, [facility] [place] [facility] [address] [id number] [place] [address] 15 Mar, 2014 [facility] [place] [facility] [address] [id number] [place] [address] 15 Mar, 2014 [facility] [place] [facility] [address] [id number] [place] [address] 09 Mar, 2014 [facility] [place] [facility] [address] [id number] [place] [address] Mar, [facility] [place] [facility] [address] [id number] [place] [address] Feb, [facility] [place] [facility] [address] [id number] [place] [address] 18 Feb, 2014 [facility] [place] [facility] [address] [id number] [place] [address] Feb, [facility] [place] [facility] [address] [id number] [place] [address] Feb, [facility] [place] [facility] [address] [id number] [place] [address] Jan, [facility] [place] [facility] [address] [id number] [place] [address] 20 Jan, 2014 [facility] [place] [facility] [address] [id number] [place] [address] 14 Jan, 2014 [facility] [place] [facility] [address] [id number] [place] [address] 14 Jan, 2014 [facility] [place] [facility] [address] [id number] [place] [address] 14 Jan, 2014 [facility] [place] [facility] [address] [id number] [place] [address] 14 Jan, 2014 [facility] [place] [facility] [address] [id number] [place] [address] 07 Jan, 2014 [facility] [place] [facility] [address] [id number], [place] [address] Jan, [facility] [place] [facility] [address] [id number] [place] [address] Dec, [facility] [place] [facility] [address] [id number] [place] [address] Dec, [facility] [place] [facility] [address] [id number] [place] [address] Dec, [facility] [place] [facility] [address] [id number] [place] [address] 17 Dec, 2013 [facility] [place] [facility] [address] [id number] [place] [address] 22 Nov, 2013 [facility] [place] [facility] [address] [id number] [place] [address] 22 Nov, 2013 [facility] [place] [facility] [address] [id number] [place] [address] 08 Nov, 2013 [facility] [place] [facility] [address] [id number] [place] [address] 08 Sep, 2013 [facility] [place] [facility] [address] [id number] [place] [address] 05 Sep, 2013 [facility] [place] [facility] [address] [id number] [place] [address] 05 Sep, 2013 [facility] [place] [facility] [address] [id number] [place] [address] 04 Sep, 2013 [facility] [place] [facility] [address] [id number], [place] [address] 04 Sep, 2013 [facility] [place] [facility] [address] [id number] [place] [address] 03 Sep, 2013 [facility] [place] [facility] [address] [id number] [place] [address] 03 Sep, 2013 [facility] [place] [facility] [address] [id number] [place] [address] 15 Oct, 2013 [facility] [place] [facility] [address] [id number] [place] [address] Oct, [facility] [place] [facility] [address] [id number] [place] [address] Sep, [facility] [place] [facility] [address] [id number] [place] [address] Sep, [facility] [place] [facility] [address] [id number] [place] [address] Sep, [facility] [place] [facility] [address] [id number] [place] [address] Sep, [facility] [place] [facility] [address] [id number] [place] [address] Sep, [facility] [place] [facility] [address] [id number] [place] [address] Sep, [facility] [place] [facility] [address] [id number] [place] [address] Aug, [facility] [place] [facility] [address] [id number] [place] [address] Aug, [facility] [place] [facility] [address] [id number] [place] [address] Aug, [facility] [place] [facility] [address] [id number] [place] [address] Aug, [facility] [place] [facility] [address] [id number] [place] [address] Aug, [facility] [place] [facility] [address] [id number] [place] [address] Aug, [facility] [place] [facility] [address] [id number] [place] [address] July, [facility] [place] [facility] [address] [id number] [place] [address] July, [facility] [place] [facility] [address] [id number] [place] [address] July, [facility] [place] [facility] [address] [id number] [place] [address] July, [facility] [place] [facility] [address] [id number] [place] [address] July, [facility] [place] [facility] [address] [id number] [place] [address] July, [facility] [place] [facility] [address] [id number] [place] [address] Jun, [facility] [place] [facility] [address] [id number] [place] [address] Jun, [facility] [place] [facility] [address] [id number] [place] [address] Jun, [facility] [place] [facility] [address] [id number] [place] [address] Jun, [facility] [place] [facility] [address] [id number] [place] [address] May, [facility] [place] [facility] [address] [id number] [place] [address] May, [facility] [place] [facility] [address] [id number] [place] [address] Apr, [facility] [place] [facility] [address] [id number] [place] [address] Apr, [facility] [place] [facility] [address] [id number] [address] Apr, [facility] [place] [facility] [address] [id number] [place] [address] Apr, [facility] [place] [facility] [address] [id number] [place] [address] Mar, [facility] [place] [facility] [address] [id number] [place] [address] Mar, [facility] [place] [facility] [address] [id number] [place] [address] Mar, [facility] [address] [id number] [place] [address] Mar, [facility] [place] [facility] [address] [id number] [place] [address] Mar, [facility] [address] [id number] [place] [address] Mar, [facility] [place] [facility] [address] [id number] [place] [address] Feb, [facility] [address] [id number] [place] [address] Feb, [facility] [place] [facility] [address] [id number] [place] [address] Jan, [facility] [address] [id number] [place] [address] Jan, [facility] [place] [facility] [address] [id number] [place] [address] Jan, [facility] [place] [facility] [address] [id number] [place] [address] Jan, [facility] [place] [facility] [address] [id number] [place] [address] Nov, [facility] [place] [facility] [address] [id number] [place] [address] Nov, [facility] [place] [facility] [address] [id number] [place] [address] Oct, [facility] [place] [facility] [address] [id number] [place] [address] Oct, [facility] [place] [facility] [address] [id number] [place] [address] Sep, [facility] [place] [facility] [address] [id number] [place] [address] Sep, [facility] [place] [facility] [address] [id number] [place] [address] Sep, [facility] [address] [id number] [place] [address] Aug, [facility] [place] [facility] [address] [id number] [place] [address] Aug, [facility] [address] [address] [id number] [place] [address] Aug, [facility] [address] [id number] [place] [address] Aug, [facility] [address] [id number] [place] [address] July, [facility] [address] [id number] [place] [address] July, [facility] [address] [id number] [place] [address] July, [facility] [address] [id number] [place] [address] July, [facility] [address] [id number] [place] [address] Jun, [facility] [place] [facility] [address] [id number] [place] [address] Jun, [facility] [place] [facility] [address] [id number] [place] [address] Jun, [facility] [place] [facility] [address] [id number] [place] [address] May, [facility] [place] [facility] [address] [id number] [place] [address] May, [facility] [place] [facility] [address] [id number] [place] [address] Apr, [facility] [place] [facility] [address] [id number] [place] [address] Apr, [facility] [address] [id number] [place] [address] Apr, [facility] [place] [facility] [address] [id number] [place] [address] Apr, [facility] [address] [id number] [place] [address] Mar, [facility] [place] [facility] [address] [id number] [place] [address] Mar, [facility] [address] [id number] [place] [address] Mar, [facility] [address] [id number] [place] [address] Mar, [facility] [address] [id number] [place] [address] Feb, [facility] [place] [facility] [address] [id number] [place] [address] Feb, [facility] [address] [id number] [place] [address] Feb, [facility] [place] [facility] [address] [facility] [id number] [place] [address] Feb, [facility] [address] [id number] [place] [address] Feb, [facility] [place] [facility] [address] [id number] [place] [address] Feb, [facility] [place] [facility] [address] [id number] [place] [address] Feb, [facility] [place] [facility] [address] [id number] [place] [address] Feb, [facility] [place] [facility] [address] [facility] [id number] [place] [address] Jan, [facility] [place] [facility] [address] [id number] [place] [address] 28 Jan, 2012 [facility] [place] [facility] [address] [id number] [place] [address] 15 Jan, 2012 [facility] [place] [facility] [address] [id number] [place] [address] 15 Jan, 2012 [facility] [place] [facility] [address] [id number] [place] [address] 14 Jan, 2012 [facility] [place] [facility] [address] [id number] [place] [address] 13 Jan, 2012 [facility] [place] [facility] [address] [id number] [place] [address] 13 Jan, 2012 [facility] [place] [facility] [address] [id number] [place] [address] 12 Jan, 2012 [facility] [place] [facility] [address] [id number] [place] [address] Jan, [facility] [place] [facility] [address] [id number] [place] [address] Jan, [facility] [place] [facility] [address] [id number] [place] [address] Jan, [facility] [place] [facility] [address] [facility] [id number] [place] [address] Dec, [facility] [place] [facility] [address] [id number] [place] [address] 31 Dec, 2011 [facility] [place] [facility] [address] [id number] [place] [address] 29 Dec, 2011 [facility] [place] [facility] [address] [id number] [place] [address] 29 Dec, 2011 [facility] [place] [facility] [address] [id number] [place] [address] Dec, [facility] [place] [facility] [address] [id number] [place] [address] Dec, [facility] [place] [facility] [address] [id number] [place] [address] Dec, [facility] [place] [facility] [address] [id number] [place] [address] Dec, [facility] [place] [facility] [address] [id number] [place] [address] Dec, [facility] [place] [facility] [address] [id number] [place] [address] Dec, [facility] [place] [facility] [address] [id number] [place] [address] Dec, [facility] [place] [facility] [address] [id number] [place] [address] Dec, [facility] [place] [facility] [address] [id number] [place] [address] Nov, [facility] [place] [facility] [address] [id number] [place] [address] Oct, [facility] [place] [facility] [address] [id number] [place] [address] Oct, [facility] [place] [facility] [address] [id number] [place] [address] Oct, [facility] [place] [facility] [address] [id number], [place] [address] Oct, [facility] [place] [facility] [address] [id number], [place] [address] Sep, [facility] [place] [facility] [address] [id number] [place] [address] Sep, [facility] [place] [facility] [address] [id number], [place] [address] Sep, [facility] [place] [facility] [address] [id number] [place] [address] Sep, [facility] [place] [facility] [address] [id number] [address] Aug, [facility] [id number] [address] Aug, [facility] [id number] [address] Aug, [facility] [id number], [place] [address] Aug, [facility] [id number] [address] Aug, [facility] [id number] [place] [address] July, [facility] [id number] [address] July, [facility] [id number] [address] July, [facility] [id number] [address] Dec, IMMUNIZATIONS No Known Immunizations SOCIAL HISTORY [...]
--- OUTSIDE RECORDS SUMMARY | 2018-10-24 12:15 | XMS REPORT ---
Author Author ALFONSOBEVERLY SHARRI [facility] Address Unknown Care Team Providers Care Cable Television Technician Name Role Phone SHARRI KUMAR Unavailable PROBLEMS Type Condition ICD9-CM Code EXK20-VE Code Onset Dates Condition Status SNOMED Code Problem Fibromyalgia M79.7 Active 05186272 Problem Tinnitus of both ears H93.13 Active 4510029007491 Problem Irritable bowel syndrome without diarrhea K58.9 Active 23341979 Problem COPD exacerbation J44.1 Active 019986309 Problem Menopausal symptoms N95.1 Active 55631095 Problem On antiepileptic therapy Z79.899 Active 740393381 Problem Chronic obstructive pulmonary disease, unspecified COPD type J44.9 Active 23657892 Problem Irritable bowel syndrome with diarrhea K58.0 Active 470265229 Problem Vitamin D deficiency E55.9 Active 83395855 Problem MRSA (methicillin resistant staph aureus) culture positive Z22.322 Active 234919097 Problem Chronic periodontal disease K05.6 Active 9319783 Problem Epilepsy G40.909 Active 54921826 Problem Generalized anxiety disorder F41.1 Active 655352561 Problem Interstitial cystitis N30.10 Active 170380397 Problem Esophageal reflux K21.9 Active 391138539 Problem Major depressive disorder F32.9 Active 497790495 Problem Lumbago M54.5 Active 277829080 ALLERGIES No Information ENCOUNTERS Encounter Location Date Diagnosis [facility] [address] [facility] [id number] [id number] Feb, [facility] [address] [address] Dec, [facility] [address] [id number] Dec, [facility] [address] [id number] Dec, [facility] [id number] [place] [address] Dec, Fibromyalgia M79.7 [facility] [id number] [place] [address] Dec, [facility] [id number] [place] [address] Oct, [facility] [id number] [place] [id number] Oct, [facility] [address] [address] Oct, [facility] [address] [address] Sep, [facility] [address] [address] Sep, [facility] [address] [address] Sep, [facility] [id number] [place] [id number] Aug, Dental examination Z01.20 [facility] [address] [address] Aug, Abscess of axilla, left L02.412 [facility] [id number] [place] [address] Aug, Esophageal reflux K21.9 [facility] [id number] [place] [address] Aug, [facility] [id number] [place] [address] Aug, Esophageal reflux K21.9 ; Fluid level behind tympanic membrane of right ear H65.91 ; Fibromyalgia M79.7 and Lumbago M54.5 [facility] [id number] [place] [address] Aug, Esophageal reflux K21.9 [facility] [address] [address] July, [facility] [address] [address] July, [facility] [address] [address] July, Chronic obstructive pulmonary disease, unspecified COPD type J44.9 [facility] [id number] [place] [address] July, [facility] [id number] [place] [address] July, [facility] [address] [place] [address] July, Interstitial cystitis N30.10 ; Fibromyalgia M79.7 [...] Dysuria R30.0 and Generalized anxiety disorder F41.1 [facility] [address] [address] Jun, [facility] [address] [address] Jun, Chronic obstructive pulmonary disease, unspecified COPD type J44.9 ; COPD exacerbation J44.1 and Sore throat J02.9 [facility] [address] [address] Jun, Fibromyalgia M79.7 [facility] [address] [address] Jun, Fibromyalgia M79.7 [facility] [id number] [place] [address] May, [facility] [id number] [place] [address] May, [facility] [id number] [place] [address] May, Fibromyalgia M79.7 [facility] [id number] [place] [address] Mar, [facility] [id number] [place] [address] Mar, Epilepsy G40.909 ; Lumbago M54.5 ; Esophageal reflux K21.9 ; Fibromyalgia M79.7 ; Chronic obstructive pulmonary disease, unspecified COPD type J44.9 ; Vitamin D deficiency E55.9 ; Fluid level behind tympanic membrane of right ear H65.91 ; Irritable bowel syndrome with diarrhea K58.0 ; Hematochezia K92.1 and Generalized anxiety disorder F41.1 [facility] [id number] [place] [address] Mar, [facility] [id number] [place] [address] Mar, [facility] [id number] [place] [address] Mar, Vitamin D deficiency E55.9 [facility] [id number] [place] [address] Feb, [facility] [id number] [place] [address] Feb, [facility] [id number] [place] [address] Jan, Fibromyalgia M79.7 [facility] [id number] [place] [address] Jan, [facility] [id number] [place] [address] Jan, [facility] [id number] [place] [address] Jan, Vitamin D deficiency E55.9 [facility] [address] [address] Dec, [facility] [address] [address] Dec, [facility] [address] [address] Dec, Generalized anxiety disorder F41.1 [place] [address] [address] Dec, Dysuria R30.0 ; Acute bilateral low back pain without sciatica M54.5 and Encounter for immunization Z23 [facility] [address] [address] Oct, [facility] [address] [address] Oct, Fibromyalgia M79.7 [facility] [address] [address] Sep, Dysuria R30.0 and Acute bronchitis, unspecified organism J20.9 [facility] [id number] [place] [address] Sep, [facility] [id number] [place] [address] Sep, Rectal prolapse K62.3 [facility] [address] [address] Sep, Chronic obstructive pulmonary disease, unspecified COPD type J44.9 [facility] [address] [id number] Aug, [facility] [address] [id number] Aug, [facility] [facility] [id number] [place] [address] Aug, Light headedness R42 ; On antiepileptic therapy Z79.899 ; Vitamin D deficiency E55.9 ; Screening for lipid disorders Z13.220 ; Dysuria R30.0 and Hemorrhoids, unspecified hemorrhoid type K64.9 [place] [address] [address] Aug, Internal prolapsed hemorrhoids K64.8 [place] [address] [address] July, [place] [address] [address] May, [place] [address] [address] May, Fever and chills R50.9 and Influenza B J10.1 [place] [address] [address] Apr, [address] [address] Apr, Fibromyalgia M79.7 and Generalized anxiety disorder F41.[address] [address] Mar, Esophageal reflux K21.9 ; Generalized anxiety disorder F41.1 and Epilepsy G40.909 [place] [facility] [address] [address] Mar, Epilepsy G40.909 ; Esophageal reflux K21.9 [...] Z13.220 and On antiepileptic therapy Z79.899 [facility] [id number] [place] [address] Feb, [facility] [id number] [place] [address] Feb, [facility] [id number] [place] [address] Feb, Dysuria R30.0 and Plantar fasciitis of right foot M72.2 [facility] [id number] [place] [address] Feb, [facility] [id number] [place] [address] Feb, [facility] [id number] [place] [address] Jan, [facility] [id number] [place] [address] Jan, [facility] [id number] [place] [address] Dec, [facility] [id number] [place] [address] Dec, [facility] [id number] [place] [address] Dec, [facility] [id number] [place] [address] Nov, [facility] [id number] [place] [address] Sep, [facility] [id number] [place] [address] Aug, Shortness of breath R06.02 and Acute suppurative otitis media of right ear without spontaneous rupture of tympanic membrane, recurrence not specified H66.001 [facility] [id number] [place] [address] 14 Aug, 2015 Internal prolapsed hemorrhoids K64.8 [facility] [facility] [id number] [place] [address] Jun, 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 [facility] [id number] [place] [address] May, Fibromyalgia M79.7 ; Interstitial cystitis N30.10 ; Intractable migraine without aura and without status migrainosus G43.019 ; Low vitamin D level E55.9 and Ringing in right ear H93.11 [place] [address] [address] May, [place] [address] [address] May, Low vitamin D level E55.9 [place] [facility] [address] [address] Apr, [facility] [id number] [place] [address] Mar, [place] [address] [address] Mar, Acute suppurative otitis media of right ear without spontaneous rupture of tympanic membrane, recurrence not specified H66.001 ; Encounter for immunization Z23 ; Asthma with acute exacerbation, unspecified asthma severity J45.901 ; Memory problem R41.3 ; Acute pain of right knee M25.561 ; Chronic fatigue R53.82 and Excessive urinary volume R35.8 [place] [id number] [place] [address] Feb, [place] [address] [address] Feb, [place] [facility] [id number] [place] [address] Jan, [place] [address] [address] Nov, Esophageal reflux 530.81 ; Anxiety 300.00 and Tingling in extremities 782.0 [facility] [id number] [place] [address] Oct, [facility] [id number] [place] [address] Oct, [facility] [address] [address] Oct, [facility] [id number] [place] [address] Oct, [facility] [id number] [place] [address] Oct, [facility] [id number] [place] [address] Sep, Other chronic allergic conjunctivitis 372.14 ; Irritable bowel syndrome 564.1 ; 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 ; Fibromyalgia 729.1 ; Extremity pain 729.5 and Neck pain 723.1 [facility] [id number] [place] [address] Sep, [facility] [id number] [place] [address] Aug, [facility] [id number] [place] [address] Aug, [facility] [id number] [place] [address] July, Vomiting 787.03 [facility] [id number] [place] [id number] July, Dental examination V72.2 [facility] [id number] [place] [address] Jun, [facility] [id number] [place] [address] Jun, [facility] [place] [facility] [address] [id number] [place] [address] May, [facility] [place] [facility] [address] [id number] [place] [address] May, [facility] [place] [facility] [address] [facility] [id number] [place] [address] May, [facility] [place] [facility] [address] [id number] [place] [address] May, [facility] [place] [facility] [address] [id number] [place] [address] May, [facility] [place] [facility] [address] [facility] [id number] [place] [address] May, [facility] [place] [facility] [address] [facility] [id number] [place] [address] May, [facility] [place] [facility] [address] [facility] [id number] [address] May, [facility] [place] [facility] [address] [facility] [id number] [address] May, [facility] [place] [facility] [address] [facility] [id number] [address] Apr, [facility] [place] [facility] [address] [id number] [address] Apr, 2014 [facility] [place] [facility] [address] [facility] [id number] [address] Apr, 2014 [facility] [place] [facility] [address] [id number] [place] [address] Apr, 2014 [facility] [place] [facility] [address] [facility] [id number] [address] Apr, 2014 [facility] [place] [facility] [address] [facility] [id number] [address] Apr, [facility] [place] [facility] [address] [id number] [place] [address] Mar, [facility] [place] [facility] [address] [id number] [place] [address] Mar, [facility] [place] [facility] [address] [id number] [place] [address] Mar, [facility] [place] [facility] [address] [id number] [place] [address] Mar, [facility] [place] [facility] [address] [id number] [place] [address] Mar, [facility] [place] [facility] [address] [id number] [place] [address] Mar, [facility] [place] [facility] [address] [id number] [place] [address] Mar, [facility] [place] [facility] [address] [id number] [place] [address] Mar, [facility] [place] [facility] [address] [id number] [place] [address] Mar, [facility] [place] [facility] [address] [id number] [place] [address] Mar, [facility] [place] [facility] [address] [id number] [place] [address] Mar, [facility] [place] [facility] [address] [id number] [place] [address] Mar, [facility] [place] [facility] [address] [id number] [place] [address] Mar, [facility] [place] [facility] [address] [id number] [place] [address] Mar, [facility] [place] [facility] [address] [id number] [place] [address] Mar, [facility] [place] [facility] [address] [id number] [place] [address] 15 Mar, 2014 [facility] [place] [facility] [address] [id number] [place] [address] 15 Mar, 2014 [facility] [place] [facility] [address] [id number] [place] [address] Mar, [facility] [place] [facility] [address] [id number] [place] [address] Mar, [facility] [place] [facility] [address] [id number] [place] [address] Feb, [facility] [place] [facility] [address] [id number] [place] [address] 18 Feb, 2014 [facility] [place] [facility] [address] [id number] [place] [address] Feb, [facility] [place] [facility] [address] [id number] [place] [address] Feb, [facility] [place] [facility] [address] [id number] [place] [address] Jan, [facility] [place] [facility] [address] [id number] [place] [address] 20 Jan, 2014 [facility] [place] [facility] [address] [id number] [place] [address] 14 Jan, 2014 [facility] [place] [facility] [address] [id number] [address] 14 Jan, 2014 [facility] [place] [facility] [address] [id number] [address] 14 Jan, 2014 [facility] [place] [facility] [address] [id number] [place] [address] 14 Jan, 2014 [facility] [place] [facility] [address] [id number] [address] 07 Jan, 2014 [facility] [place] [facility] [address] [id number] [place] [address] Jan, [facility] [place] [facility] [address] [id number] [place] [address] 20 Dec, 2013 [facility] [place] [facility] [address] [id number] [place] [address] 20 Dec, 2013 [facility] [place] [facility] [address] [id number] [place] [address] 17 Dec, 2013 [facility] [place] [facility] [address] [id number] [place] [address] 17 Dec, 2013 [facility] [place] [facility] [address] [id number] [place] [address] 22 Nov, 2013 [facility] [place] [facility] [address] [id number] [place] [address] 22 Sep, 2013 [facility] [place] [facility] [address] [id number] [place] [address] 08 Nov, 2013 [facility] [place] [facility] [address] [id number] [place] [address] 08 Nov, 2013 [facility] [place] [facility] [address] [id number] [place] [address] 05 Sep, 2013 [facility] [place] [facility] [address] [id number] [place] [address] 05 Sep, 2013 [facility] [place] [facility] [address] [id number] [place] [address] 04 Sep, 2013 [facility] [place] [facility] [address] [id number] [place] [address] 04 Sep, 2013 [facility] [place] [facility] [address] [id number] [place] [address] 03 Sep, 2013 [facility] [place] [facility] [address] [id number] [place] [address] 03 Nov, 2013 [facility] [place] [facility] [address] [id number] [place] [address] 15 Oct, 2013 [facility] [place] [facility] [address] [id number] [place] [address] Oct, [facility] [place] [facility] [address] [id number] [place] [address] Sep, [facility] [place] [facility] [address] [id number] [place] [address] Sep, [facility] [place] [facility] [address] [id number] [place] [address] Sep, [facility] [place] [facility] [address] [id number] [place] [address] Sep, [facility] [place] [facility] [address] [id number] [place] [address] Sep, [facility] [place] [facility] [address] [id number] [place] [address] Sep, [facility] [place] [facility] [address] [id number] [place] [address] Aug, [facility] [place] [facility] [address] [id number] [place] [address] Aug, [facility] [place] [facility] [address] [id number] [place] [address] Aug, [facility] [place] [facility] [address] [id number] [place] [address] Aug, [facility] [place] [facility] [address] [id number] [place] [address] Aug, [facility] [place] [facility] [address] [id number] [place] [address] Aug, [facility] [place] [facility] [address] [id number] [place] [address] July, [facility] [place] [facility] [address] [id number] [place] [address] July, [facility] [place] [facility] [address] [id number] [place] [address] July, [facility] [place] [facility] [address] [id number] [address] July, [facility] [address] [id number] [place] [address] July, [facility] [place] [facility] [address] [id number] [place] [address] July, [facility] [place] [facility] [address] [id number] [place] [address] Jun, [facility] [place] [facility] [address] [id number] [place] [address] Jun, [facility] [place] [facility] [address] [id number] [place] [address] Jun, [facility] [place] [facility] [address] [id number] [place] [address] Jun, [facility] [place] [facility] [address] [id number] [place] [address] May, [facility] [place] [facility] [address] [id number] [place] [address] May, [facility] [place] [facility] [address] [id number] [place] [address] Apr, [facility] [place] [facility] [address] [id number] [place] [address] Apr, [facility] [place] [facility] [address] [id number] [address] Apr, [facility] [place] [facility] [address] [id number] [place] [address] Apr, [facility] [place] [facility] [address] [id number] [place] [address] Mar, [facility] [place] [facility] [address] [id number] [place] [address] Mar, [facility] [place] [facility] [address] [id number] [address] Mar, [facility] [place] [facility] [address] [id number] [place] [address] Mar, [facility] [place] [facility] [address] [id number] [place] [address] Mar, [facility] [place] [facility] [address] [id number] [place] [address] Mar, [facility] [place] [facility] [address] [id number] [place] [address] Feb, [facility] [place] [facility] [address] [id number] [place] [address] Feb, [facility] [place] [facility] [address] [id number] [place] [address] Jan, [facility] [place] [facility] [address] [id number] [place] [address] Jan, [facility] [place] [facility] [address] [id number] [place] [address] Jan, [facility] [place] [facility] [address] [id number] [place] [address] Jan, [facility] [place] [facility] [address] [id number] [place] [address] Nov, [facility] [place] [facility] [address] [id number] [place] [address] Nov, [facility] [place] [facility] [address] [id number] [place] [address] Oct, [facility] [place] [facility] [address] [id number] [place] [address] Oct, [facility] [place] [facility] [address] [id number] [place] [address] Sep, [facility] [place] [facility] [address] [address] [id number] [place] [address] Sep, [facility] [place] [facility] [address] [id number] [place] [address] Sep, [facility] [address] [id number] [place] [address] Aug, [facility] [place] [facility] [address] [id number] [place] [address] Aug, [facility] [address] [id number] [place] [address] Aug, [facility] [place] [facility] [address] [id number] [place] [address] Aug, [facility] [address] [id number] [place] [address] July, [facility] [address] [id number] [place] [address] July, [facility] [address] [id number] [place] [address] July, [facility] [place] [facility] [address] [id number] [address] July, [facility] [place] [facility] [address] [id number] [place] [address] Jun, [facility] [place] [facility] [address] [id number] [place] [address] Jun, [facility] [place] [facility] [address] [id number] [place] [address] Jun, [facility] [place] [facility] [address] [id number] [place] [address] May, [facility] [place] [facility] [address] [id number] [place] [address] May, [facility] [place] [facility] [address] [id number] [place] [address] Apr, [facility] [place] [facility] [address] [id number] [place] [address] Apr, [facility] [place] [facility] [address] [id number] [place] [address] Apr, [facility] [address] [id number] [place] [address] Apr, [facility] [address] [id number] [place] [address] Mar, [facility] [address] [id number] [place] [address] Mar, [facility] [address] [id number] [place] [address] Mar, [facility] [address] [id number] [place] [address] Mar, [facility] [address] [id number] [place] [address] Feb, [facility] [address] [id number] [place] [address] Feb, [facility] [address] [id number] [place] [address] Feb, [facility] [address] [id number] [place] [address] Feb, [facility] [address] [id number] [place] [address] Feb, [facility] [address] [id number] [place] [address] Feb, [facility] [address] [id number] [place] [address] Feb, [facility] [place] [facility] [address] [id number] [place] [address] Feb, [facility] [address] [id number] [place] [address] Jan, [facility] [address] [id number] [place] [address] Jan, [facility] [place] [facility] [address] [id number] [place] [address] 15 Jan, 2012 [facility] [place] [facility] [address] [id number] [place] [address] 15 Jan, 2012 [facility] [place] [facility] [address] [id number] [place] [address] 14 Jan, 2012 [facility] [place] [facility] [address] [id number] [place] [address] 13 Jan, 2012 [facility] [place] [facility] [address] [id number] [place] [address] 13 Jan, 2012 [facility] [place] [facility] [address] [id number] [place] [address] Jan, [facility] [place] [facility] [address] [id number] [place] [address] Jan, [facility] [place] [facility] [address] [id number] [place] [address] Jan, [facility] [place] [facility] [address] [id number] [place] [address] Jan, [facility] [place] [facility] [address] [facility] [id number] [address] Dec, [facility] [place] [facility] [address] [id number] [place] [address] Dec, [facility] [place] [facility] [address] [id number] [place] [address] Dec, [facility] [place] [facility] [address] [id number] [place] [address] Dec, [facility] [place] [facility] [address] [id number] [place] [address] Dec, [facility] [place] [facility] [address] [id number] [place] [address] Dec, [facility] [place] [facility] [address] [id number] [place] [address] Dec, [facility] [place] [facility] [address] [id number] [place] [address] Dec, [facility] [place] [facility] [address] [id number] [place] [address] Dec, [facility] [place] [facility] [address] [id number] [place] [address] Dec, [facility] [place] [facility] [address] [id number] [place] [address] Dec, [facility] [place] [facility] [address] [id number] [place] [address] Dec, [facility] [place] [facility] [address] [id number] [place] [address] Nov, [facility] [place] [facility] [address] [id number] [place] [address] Oct, [facility] [place] [facility] [address] [id number] [place] [address] Oct, [facility] [place] [facility] [address] [id number] [place] [address] Oct, [facility] [place] [facility] [address] [id number] [place] [address] Oct, [facility] [place] [facility] [address] [id number] [place] [address] Sep, [facility] [place] [facility] [address] [id number] [place] [address] Sep, [facility] [place] [facility] [address] [id number] [place] [address] Sep, [facility] [place] [facility] [address] [id number] [place] [address] Sep, [facility] [place] [facility] [address] [id number] [place] [address] Aug, [facility] [place] [facility] [address] [id number] [address] Aug, [facility] [id number] [address] Aug, [facility] [id number] [address] Aug, [facility] [id number] [address] Aug, [facility] [id number] [address] July, [facility] [id number] [address] July, [facility] [id number] [address] July, [facility] [id number] [address] Dec, IMMUNIZATIONS No Known Immunizations SOCIAL HISTORY Never Assessed REASON FOR VISIT Hygiene Appt PLAN OF CARE VITAL SIGNS MEDICATIONS Unknown [...]
--- OUTSIDE RECORDS SUMMARY | 2018-10-24 12:16 | XMS REPORT ---
Author Author NELSON DIANN [facility] Address [address] [place] [address] Care Team Providers Care Tc Operator Name Role Phone DIANN DAMON Unavailable PROBLEMS Type Condition ICD9-CM Code UNB75-YU Code Onset Dates Condition Status SNOMED Code Problem Fibromyalgia M79.7 Active 23411729 Problem Tinnitus of both ears H93.13 Active 8746664754365 Problem Irritable bowel syndrome without diarrhea K58.9 Active 13199750 Problem COPD exacerbation J44.1 Active 026257347 Problem Menopausal symptoms N95.1 Active 98624098 Problem On antiepileptic therapy Z79.899 Active 602944205 Problem Chronic obstructive pulmonary disease, unspecified COPD type J44.9 Active 58301439 Problem Irritable bowel syndrome with diarrhea K58.0 Active 268839545 Problem Vitamin D deficiency E55.9 Active 75612262 Problem MRSA (methicillin resistant staph aureus) culture positive Z22.322 Active 458526035 Problem Chronic periodontal disease K05.6 Active 1282816 Problem Epilepsy G40.909 Active 49370355 Problem Generalized anxiety disorder F41.1 Active 883674436 Problem Interstitial cystitis N30.10 Active 913947833 Problem Esophageal reflux K21.9 Active 474368992 Problem Major depressive disorder F32.9 Active 529350161 Problem Lumbago M54.5 Active 787611858 ALLERGIES No Information ENCOUNTERS Encounter Location Date Diagnosis [facility] [address] [facility] [id number] [id number] Feb, [facility] [id number] [place] [address] Dec, [facility] [address] [id number] Dec, [facility] [address] [facility] [id number] [id number] Dec, [facility] [id number] [place] [address] Dec, Fibromyalgia M79.7 [facility] [address] [address] Dec, [facility] [id number] [place] [address] Oct, [facility] [address] [id number] Oct, [facility] [address] [address] Oct, [facility] [address] [address] Sep, [facility] [address] [address] Sep, [facility] [address] [address] Sep, [facility] [id number] [place] [id number] Aug, Dental examination Z01.20 [facility] [address] [address] Aug, Abscess of axilla, left L02.412 [facility] [address] [address] Aug, Esophageal reflux K21.9 [facility] [id number] [place] [address] Aug, [facility] [address] [address] Aug, Esophageal reflux K21.9 ; Fluid level behind tympanic membrane of right ear H65.91 ; Fibromyalgia M79.7 and Lumbago M54.5 [facility] [address] [address] Aug, Esophageal reflux K21.9 [facility] [address] [address] July, [facility] [address] [address] July, [facility] [address] [address] July, Chronic obstructive pulmonary disease, unspecified COPD type J44.9 [facility] [address] [address] July, [facility] [id number] [place] [address] July, [facility] [address] [address] July, Interstitial cystitis N30.10 ; Fibromyalgia M79.7 [...] Dysuria R30.0 and Generalized anxiety disorder F41.1 [place] [address] [address] Jun, [facility] [address] [address] Jun, Chronic obstructive pulmonary disease, unspecified COPD type J44.9 ; COPD exacerbation J44.1 and Sore throat J02.9 [facility] [address] [address] Jun, Fibromyalgia M79.7 [facility] [address] [address] 03 Apr, 2018 Fibromyalgia M79.7 [facility] [address]005[address] [address] May, [facility] [id number] [place] [address] May, [facility] [id number] [place] [address] May, Fibromyalgia M79.7 [facility] [id number] [place] [address] Mar, [facility] [id number] [place] [address] Mar, Epilepsy G40.909 ; Lumbago M54.5 ; Esophageal reflux K21.9 ; Fibromyalgia M79.7 ; Chronic obstructive pulmonary disease, unspecified COPD type J44.9 ; Vitamin D deficiency E55.9 ; Fluid level behind tympanic membrane of right ear H65.91 ; Irritable bowel syndrome with diarrhea K58.0 ; Hematochezia K92.1 and Generalized anxiety disorder F41.1 [facility] [id number] [place] [address] Mar, [facility] [id number] [place] [address] Mar, [facility] [id number] [place] [address] Mar, Vitamin D deficiency E55.9 [facility] [address] [place] [address] Feb, [facility] [id number] [place] [address] Feb, [facility] [id number] [place] [address] Jan, Fibromyalgia M79.7 [facility] [address] [address] Jan, [facility] [id number] [place] [address] Jan, [facility] [address] [address] Jan, Vitamin D deficiency E55.9 [facility] [id number] [place] [address] Dec, [facility] [address] [address] Dec, [facility] [address] [address] Dec, Generalized anxiety disorder F41.1 [place] [address] [address] Dec, Dysuria R30.0 ; Acute bilateral low back pain without sciatica M54.5 and Encounter for immunization Z23 [place] [id number] [place] [address] Oct, [facility] [id number] [place] [address] Oct, Fibromyalgia M79.7 [place] [id number] [place] [address] Sep, Dysuria R30.0 and Acute bronchitis, unspecified organism J20.9 [facility] [id number] [place] [address] Sep, [facility] [id number] [place] [address] Sep, Rectal prolapse K62.3 [place] [id number] [place] [address] Sep, Chronic obstructive pulmonary disease, unspecified COPD type J44.9 [facility] [address] [id number] [place] [id number] Aug, [facility] [address] [id number] Aug, [place] [address] [address] Aug, Light headedness R42 ; On antiepileptic therapy Z79.899 ; Vitamin D deficiency E55.9 ; Screening for lipid disorders Z13.220 ; Dysuria R30.0 and Hemorrhoids, unspecified hemorrhoid type K64.9 [place] [address] [address] Aug, Internal prolapsed hemorrhoids K64.8 [place] [address] [address] July, [place] [address] [address] May, [address] [address] May, Fever and chills R50.9 and Influenza B J10.1 [place] [address] [address] Apr, [address] [address] Apr, Fibromyalgia M79.7 and Generalized anxiety disorder F41.[address] [address] Mar, Esophageal reflux K21.9 ; Generalized anxiety disorder F41.1 and Epilepsy G40.909 [place] [id number] [place] [address] Mar, Epilepsy G40.909 ; Esophageal reflux K21.9 ; Fibromyalgia M79.7 ; Generalized anxiety disorder F41.1 ; Pain of left foot M79.672 ; Pain in right foot M79.671 ; Ear pain, right H92.01 ; Tinnitus of both ears H93.13 ; Chronic obstructive pulmonary disease, unspecified COPD type J44.9 ; Vitamin D deficiency E55.9 ; Screening for lipid disorders Z13.220 and On antiepileptic therapy Z79.899 [facility] [id number] [place] [address] Feb, [facility] [id number] [place] [address] Feb, [facility] [id number] [place] [address] Feb, Dysuria R30.0 and Plantar fasciitis of right foot M72.2 [facility] [id number] [place] [address] Feb, [facility] [id number] [place] [address] Feb, [facility] [id number] [place] [address] Jan, [facility] [id number] [place] [address] Jan, [facility] [id number] [place] [address] Dec, [facility] [id number] [place] [address] Dec, [facility] [id number] [place] [address] Dec, [facility] [id number] [place] [address] Nov, [facility] [id number] [place] [address] Sep, [facility] [id number] [place] [address] Aug, Shortness of breath R06.02 and Acute suppurative otitis media of right ear without spontaneous rupture of tympanic membrane, recurrence not specified H66.001 [facility] [id number] [place] [address] 14 Aug, 2015 Internal prolapsed hemorrhoids K64.8 [place] [address] [address] 06 Jun, 2015 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 [place] [address] [address] May, Fibromyalgia M79.7 ; Interstitial cystitis N30.10 ; Intractable migraine without aura and without status migrainosus G43.019 ; Low vitamin D level E55.9 and Ringing in right ear H93.11 [place] [address] [address] May, [place] [address] [address] May, Low vitamin D level E55.9 [place] [address] [address] Apr, [place] [address] [address] Mar, [place] [address] [address] Mar, Acute suppurative otitis media of right ear without spontaneous rupture of tympanic membrane, recurrence not specified H66.001 ; Encounter for immunization Z23 ; Asthma with acute exacerbation, unspecified asthma severity J45.901 ; Memory problem R41.3 ; Acute pain of right knee M25.561 ; Chronic fatigue R53.82 and Excessive urinary volume R35.8 [place] [address] [address] Feb, [place] [address] [address] Feb, [place] [address] [address] Jan, [facility] [address] [place] [address] Nov, Esophageal reflux 530.81 ; Anxiety 300.00 and Tingling in extremities 782.0 [facility] [id number] [place] [address] Oct, [facility] [id number] [place] [address] Oct, [facility] [id number] [place] [address] Oct, [facility] [id number] [place] [address] Oct, [facility] [id number] [place] [address] Oct, [facility] [id number] [place] [address] Sep, Other chronic allergic conjunctivitis 372.14 ; Irritable bowel syndrome 564.1 ; 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 ; Fibromyalgia 729.1 ; Extremity pain 729.5 and Neck pain 723.1 [facility] [id number] [place] [address] Sep, [facility] [id number] [place] [address] Aug, [facility] [id number] [place] [address] Aug, [facility] [id number] [place] [address] July, Vomiting 787.03 [facility] [id number] [place] [id number] July, Dental examination V72.2 [facility] [id number] [place] [address] Jun, [facility] [place] [facility] [address] [facility] [id number] [place] [address] 13 Jun, 2014 [facility] [place] [facility] [address] [id number] [place] [address] May, [facility] [place] [facility] [address] [id number] [place] [address] May, [facility] [place] [facility] [address] [id number] [place] [address] May, [facility] [place] [facility] [address] [id number] [place] [address] May, [facility] [place] [facility] [address] [id number] [place] [address] May, [facility] [place] [facility] [address] [facility] [id number] [place] [address] May, [facility] [place] [facility] [address] [id number] [place] [address] May, [facility] [place] [facility] [address] [id number] [place] [address] May, [facility] [place] [facility] [address] [id number] [place] [address] May, [facility] [place] [facility] [address] [facility] [id number] [place] [address] Apr, 2014 [facility] [place] [facility] [address] [id number] [place] [address] Apr, 2014 [facility] [place] [facility] [address] [id number] [place] [address] Apr, 2014 [facility] [place] [facility] [address] [id number] [place] [address] Apr, [facility] [place] [facility] [address] [id number] [place] [address] 05 Apr, 2014 [facility] [place] [facility] [address] [id number] [place] [address] Apr, [facility] [place] [facility] [address] [id number] [place] [address] Mar, [facility] [place] [facility] [address] [id number] [place] [address] Mar, [facility] [place] [facility] [address] [id number] [place] [address] Mar, [facility] [place] [facility] [address] [id number] [place] [address] Mar, [facility] [place] [facility] [address] [id number] [place] [address] Mar, [facility] [place] [facility] [address] [id number] [place] [address] Mar, [facility] [place] [facility] [address] [id number] [place] [address] Mar, [facility] [place] [facility] [address] [id number] [place] [address] Mar, [facility] [place] [facility] [address] [id number] [place] [address] Mar, [facility] [place] [facility] [address] [id number] [place] [address] Mar, [facility] [place] [facility] [address] [id number] [address] Mar, [facility] [place] [facility] [address] [id number] [address] Mar, [facility] [place] [facility] [address] [id number] [place] [address] Mar, [facility] [place] [facility] [address] [id number] [place] [address] Mar, [facility] [place] [facility] [address] [id number] [place] [address] Mar, [facility] [place] [facility] [address] [id number] [place] [address] 15 Mar, 2014 [facility] [address] [id number] [place] [address] 15 Mar, 2014 [facility] [place] [facility] [address] [id number] [place] [address] 09 Mar, 2014 [facility] [address] [id number] [place] [address] Mar, [facility] [place] [facility] [address] [id number] [place] [address] 18 Feb, 2014 [facility] [address] [id number] [place] [address] Feb, [facility] [address] [id number] [place] [address] Feb, [facility] [place] [facility] [address] [id number] [place] [address] Feb, [facility] [address] [id number] [place] [address] Jan, [facility] [place] [facility] [address] [id number] [place] [address] 20 Jan, 2014 [facility] [address] [id number] [place] [address] 14 Jan, 2014 [facility] [place] [facility] [address] [id number] [place] [address] 14 Jan, 2014 [facility] [place] [facility] [address] [id number] [place] [address] 14 Jan, 2014 [facility] [place] [facility] [address] [id number] [place] [address] 14 Jan, 2014 [facility] [place] [facility] [address] [id number] [place] [address] Jan, [facility] [place] [facility] [address] [id number] [place] [address] Jan, [facility] [place] [facility] [address] [id number] [place] [address] Dec, [facility] [place] [facility] [address] [id number] [place] [address] Dec, [facility] [place] [facility] [address] [id number] [place] [address] Dec, [facility] [place] [facility] [address] [id number] [place] [address] Dec, [facility] [place] [facility] [address] [id number] [place] [address] 22 Nov, 2013 [facility] [place] [facility] [address] [id number] [place] [address] 22 Nov, 2013 [facility] [place] [facility] [address] [id number] [place] [address] 08 Nov, 2013 [facility] [place] [facility] [address] [id number] [place] [address] 08 Sep, 2013 [facility] [place] [facility] [address] [id number] [place] [address] 05 Sep, 2013 [facility] [place] [facility] [address] [id number] [place] [address] 05 Sep, 2013 [facility] [place] [facility] [address] [id number] [address] 04 Sep, 2013 [facility] [place] [facility] [address] [id number] [place] [address] 04 Sep, 2013 [facility] [place] [facility] [address] [id number] [place] [address] 03 Sep, 2013 [facility] [place] [facility] [address] [id number] [place] [address] 03 Sep, 2013 [facility] [place] [facility] [address] [id number] [place] [address] 15 Oct, 2013 [facility] [place] [facility] [address] [id number] [place] [address] Oct, [facility] [place] [facility] [address] [id number] [place] [address] Sep, [facility] [place] [facility] [address] [id number] [place] [address] Sep, [facility] [place] [facility] [address] [id number] [place] [address] Sep, [facility] [place] [facility] [address] [id number] [place] [address] Sep, [facility] [place] [facility] [address] [id number] [place] [address] Sep, [facility] [place] [facility] [address] [id number] [place] [address] Sep, [facility] [place] [facility] [address] [id number] [place] [address] Aug, [facility] [place] [facility] [address] [id number] [place] [address] Aug, [facility] [place] [facility] [address] [id number] [place] [address] Aug, [facility] [place] [facility] [address] [id number] [place] [address] Aug, [facility] [place] [facility] [address] [id number] [place] [address] Aug, [facility] [place] [facility] [address] [id number] [place] [address] Aug, [facility] [place] [facility] [address] [id number] [place] [address] July, [facility] [place] [facility] [address] [id number] [place] [address] July, [facility] [place] [facility] [address] [id number] [place] [address] July, [facility] [place] [facility] [address] [id number] [place] [address] July, [facility] [place] [facility] [address] [id number] [place] [address] July, [facility] [place] [facility] [address] [id number] [place] [address] July, [facility] [place] [facility] [address] [id number] [place] [address] Jun, [facility] [place] [facility] [address] [id number] [place] [address] Jun, [facility] [place] [facility] [address] [id number] [place] [address] Jun, [facility] [place] [facility] [address] [id number] [place] [address] Jun, [facility] [place] [facility] [address] [id number] [place] [address] May, [facility] [place] [facility] [address] [id number] [place] [address] May, [facility] [place] [facility] [address] [id number] [place] [address] Apr, [facility] [place] [facility] [address] [id number] [place] [address] Apr, [facility] [place] [facility] [address] [id number] [place] [address] Apr, [facility] [place] [facility] [address] [id number] [place] [address] Apr, [facility] [place] [facility] [address] [id number] [place] [address] Mar, [facility] [place] [facility] [address] [id number] [place] [address] Mar, [facility] [place] [facility] [address] [id number] [place] [address] Mar, [facility] [place] [facility] [address] [id number] [place] [address] Mar, [facility] [place] [facility] [address] [id number] [place] [address] Mar, [facility] [place] [facility] [address] [id number] [place] [address] Mar, [facility] [place] [facility] [address] [id number] [place] [address] Feb, [facility] [place] [facility] [address] [id number] [place] [address] Feb, [facility] [place] [facility] [address] [id number] [place] [address] Jan, [facility] [place] [facility] [address] [id number] [place] [address] Jan, [facility] [place] [facility] [address] [id number] [place] [address] Jan, [facility] [place] [facility] [address] [id number] [place] [address] Jan, [facility] [place] [facility] [address] [id number] [place] [address] Nov, [facility] [place] [facility] [address] [id number] [place] [address] Nov, [facility] [place] [facility] [address] [id number] [place] [address] Oct, [facility] [place] [facility] [address] [id number] [place] [address] Oct, [facility] [place] [facility] [address] [id number] [place] [address] Sep, [facility] [place] [facility] [address] [address] [id number] [place] [address] Sep, [facility] [place] [facility] [address] [id number] [place] [address] Sep, [facility] [address] [id number] [place] [address] Aug, [facility] [address] [id number] [place] [address] Aug, [facility] [address] [id number] [place] [address] Aug, [facility] [address] [id number] [place] [address] Aug, [facility] [address] [id number] [place] [address] July, [facility] [address] [id number] [place] [address] July, [facility] [address] [id number] [place] [address] July, [facility] [address] [id number] [place] [address] July, [facility] [address] [id number] [place] [address] Jun, [facility] [address] [id number] [place] [address] Jun, [facility] [address] [id number] [place] [address] Jun, [facility] [address] [id number] [place] [address] May, [facility] [address] [id number] [place] [address] May, [facility] [address] [id number] [place] [address] Apr, [facility] [address] [id number] [place] [address] Apr, [facility] [address] [id number] [place] [address] Apr, [facility] [place] [facility] [address] [id number] [place] [address] Apr, [facility] [place] [facility] [address] [id number] [place] [address] Mar, [facility] [place] [facility] [address] [id number] [place] [address] Mar, [facility] [place] [facility] [address] [id number] [place] [address] Mar, [facility] [place] [facility] [address] [id number] [place] [address] Mar, [facility] [place] [facility] [address] [id number] [place] [address] Feb, [facility] [place] [facility] [address] [id number] [place] [address] Feb, [facility] [place] [facility] [address] [id number] [place] [address] Feb, [facility] [place] [facility] [address] [id number] [place] [address] Feb, [facility] [place] [facility] [address] [id number] [place] [address] Feb, [facility] [place] [facility] [address] [id number] [place] [address] Feb, [facility] [place] [facility] [address] [id number] [place] [address] Feb, [facility] [place] [facility] [address] [id number] [place] [address] Feb, [facility] [place] [facility] [address] [id number] [place] [address] Jan, [facility] [place] [facility] [address] [id number] [place] [address] 28 Jan, 2012 [facility] [place] [facility] [address] [id number] [place] [address] 15 Jan, 2012 [facility] [place] [facility] [address] [id number] [place] [address] 15 Jan, 2012 [facility] [place] [facility] [address] [id number] [place] [address] 14 Jan, 2012 [facility] [place] [facility] [address] [id number] [place] [address] 13 Jan, 2012 [facility] [place] [facility] [address] [id number] [place] [address], [place] [address] 13 Jan, 2012 [facility] [place] [facility] [address] [id number] [place] [address] Jan, [facility] [place] [facility] [address] [facility] [id number] [place] [address] Jan, [facility] [place] [facility] [address] [id number] [place] [address] Jan, [facility] [place] [facility] [address] [facility] [id number] [place] [address] Jan, [facility] [place] [facility] [address] [facility] [id number] [place] [address] Dec, [facility] [place] [facility] [address] [id number] [place] [address] Dec, [facility] [place] [facility] [address] [id number] [address] Dec, [facility] [place] [facility] [address] [id number] [place] [address] Dec, [facility] [place] [facility] [address] [facility] [id number] [place] [address] Dec, [facility] [place] [facility] [address] [id number] [address] Dec, [facility] [place] [facility] [address] [id number] [place] [address] Dec, [facility] [place] [facility] [address] [id number] [place] [address] Dec, [facility] [place] [facility] [address] [id number] [place] [address] Dec, [facility] [place] [facility] [address] [id number] [place] [address], [place] [address] Dec, [facility] [place] [facility] [address] [id number] [place] [address] Dec, [facility] [place] [facility] [address] [id number] [place] [address] Dec, [facility] [place] [facility] [address] [id number] [place] [address] Nov, [facility] [place] [facility] [address] [id number] [place] [address] Oct, [facility] [place] [facility] [address] [id number] [place] [address] Oct, [facility] [place] [facility] [address] [id number] [place] [address] Oct, [facility] [place] [facility] [address] [id number] [place] [address] Oct, [facility] [place] [facility] [address] [id number] [place] [address] Sep, [facility] [place] [facility] [address] [id number] [place] [address] Sep, [facility] [place] [facility] [address] [id number] [place] [address] Sep, [facility] [place] [facility] [address] [id number] [place] [address] Sep, [facility] [place] [facility] [address] [id number] [address] Aug, [facility] [address] [id number] [address] Aug, [facility] [address] [id number] [address] Aug, [facility] [id number] [address] Aug, [facility] [id number] [address] Aug, [facility] [id number] [address] July, [facility] [id number] [address] July, [facility] [id number] [address] July, [facility] [id number] [address] Dec, IMMUNIZATIONS No Known Immunizations SOCIAL HISTORY Never Assessed REASON FOR VISIT Controlled Medication Refill PLAN OF CARE VITAL SIGNS MEDICATIONS Medication Instructions Dosage Frequency Start Date End Date Duration Status Lyrica 150 MG Orally Twice a day 1 capsule 12h 30 Sep, 2014 28 days Active RESULTS No Results PROCEDURES [...]
--- OUTSIDE RECORDS SUMMARY | 2018-10-24 12:17 | XMS REPORT ---
Author Author NELSON DIANN [facility] Address [address] [place] [address] Care Team Providers Care Press Tender Long Goods Name Role Phone NELSONPRADEEP BURGOSHANY Unavailable PROBLEMS Type Condition ICD9-CM Code UFS77-OI Code Onset Dates Condition Status SNOMED Code Problem Fibromyalgia M79.7 Active 52446286 Problem Tinnitus of both ears H93.13 Active 8790231962634 Problem Irritable bowel syndrome without diarrhea K58.9 Active 74942168 Problem COPD exacerbation J44.1 Active 903004032 Problem Menopausal symptoms N95.1 Active 60003555 Problem On antiepileptic therapy Z79.899 Active 843884577 Problem Chronic obstructive pulmonary disease, unspecified COPD type J44.9 Active 93843286 Problem Irritable bowel syndrome with diarrhea K58.0 Active 915503968 Problem Vitamin D deficiency E55.9 Active 69678387 Problem MRSA (methicillin resistant staph aureus) culture positive Z22.322 Active 338296066 Problem Epilepsy G40.909 Active 31375458 Problem Generalized anxiety disorder F41.1 Active 801332684 Problem Interstitial cystitis N30.10 Active 144097167 Problem Esophageal reflux K21.9 Active 527549918 Problem Major depressive disorder F32.9 Active 516086246 Problem Lumbago M54.5 Active 243560322 ALLERGIES No Information ENCOUNTERS Encounter Location Date Diagnosis [facility] [address] [id number] [address] Dec, [facility] [address] [id number], [place] [address] Oct, [facility] [address] [id number] [id number] Oct, [facility] [address] [id number], [place] [address] Oct, [facility] [id number] [place] [address] Sep, [facility] [address] [address] Sep, [facility] [id number] [place] [address] Sep, [facility] [address] [id number] Aug, Dental examination Z01.20 [facility] [id number] [place] [address] Aug, Abscess of axilla, left L02.412 [place] [address] [address] Aug, Esophageal reflux K21.9 [place] [address] [address] Aug, [facility] [address] [address] Aug, Esophageal reflux K21.9 ; Fluid level behind tympanic membrane of right ear H65.91 ; Fibromyalgia M79.7 and Lumbago M54.5 [facility] [id number] [place] [address] Aug, Esophageal reflux K21.9 [facility] [id number] [place] [address] July, [facility] [id number] [place] [address] July, [facility] [address] [address] July, Chronic obstructive pulmonary disease, unspecified COPD type J44.9 [facility] [id number] [place] [address] July, [facility] [id number] [place] [address] July, [place] [id number] [place] [address] July, Interstitial cystitis N30.10 ; Fibromyalgia M79.7 [...] Dysuria R30.0 and Generalized anxiety disorder F41.1 [place] [address] [address] Jun, [place] [id number] [place] [address] Jun, Chronic obstructive pulmonary disease, unspecified COPD type J44.9 ; COPD exacerbation J44.1 and Sore throat J02.9 [place] [id number] [place] [address] Jun, Fibromyalgia M79.7 [place] [id number] [place] [address] Jun, Fibromyalgia M79.7 [place] [id number] [place] [address] May, [place] [id number] [place] [address] May, [place] [id number] [place] [address] May, Fibromyalgia M79.7 [facility] [id number] [place] [address] Mar, [place] [id number] [place] [address] Mar, Epilepsy G40.909 ; Lumbago M54.5 ; Esophageal reflux K21.9 ; Fibromyalgia M79.7 ; Chronic obstructive pulmonary disease, unspecified COPD type J44.9 ; Vitamin D deficiency E55.9 ; Fluid level behind tympanic membrane of right ear H65.91 ; Irritable bowel syndrome with diarrhea K58.0 ; Hematochezia K92.1 and Generalized anxiety disorder F41.1 [facility] [id number] [place] [address] Mar, [facility] [address] [address] Mar, [facility] [address] [address] Mar, Vitamin D deficiency E55.9 [facility] [id number] [place] [address] Feb, [facility] [address] [address] Feb, [facility] [id number] [place] [address] Jan, Fibromyalgia M79.7 [facility] [address] [address] Jan, [facility] [id number] [place] [address] Jan, [facility] [id number] [place] [address] Jan, Vitamin D deficiency E55.9 [facility] [id number] [place] [address] Dec, [facility] [id number] [place] [address] Dec, [facility] [id number] [place] [address] Dec, Generalized anxiety disorder F41.1 [place] [id number] [place] [address] Dec, Dysuria R30.0 ; Acute bilateral low back pain without sciatica M54.5 and Encounter for immunization Z23 [place] [id number] [place] [address] Oct, [place] [address] [address] Oct, Fibromyalgia M79.7 [place] [address] [address] Sep, Dysuria R30.0 and Acute bronchitis, unspecified organism J20.9 [place] [id number] [place] [address] Sep, [place] [address] [address] Sep, Rectal prolapse K62.3 [place] [id number] [place] [address] Sep, Chronic obstructive pulmonary disease, unspecified COPD type J44.9 [place] [address] [id number] [place] [id number] Aug, [place] [address] [id number] Aug, [place] [id number] [place] [address] Aug, Light headedness R42 ; On antiepileptic therapy Z79.899 ; Vitamin D deficiency E55.9 ; Screening for lipid disorders Z13.220 ; Dysuria R30.0 and Hemorrhoids, unspecified hemorrhoid type K64.9 [place] [id number] [place] [address] Aug, Internal prolapsed hemorrhoids K64.8 [place] [id number] [place] [address] July, [place] [id number] [place] [address] May, [address] [address] May, Fever and chills R50.9 and Influenza B J10.[address] [address] Apr, [address] [address] Apr, Fibromyalgia M79.7 and Generalized anxiety disorder F41.[address] [address] Mar, Esophageal reflux K21.9 ; Generalized anxiety disorder F41.1 and Epilepsy G40.[address] [address] Mar, Epilepsy G40.909 ; Esophageal reflux K21.9 ; Fibromyalgia M79.7 ; Generalized anxiety disorder F41.1 ; Pain of left foot M79.672 ; Pain in right foot M79.671 ; Ear pain, right H92.01 ; Tinnitus of both ears H93.13 ; Chronic obstructive pulmonary disease, unspecified COPD type J44.9 ; Vitamin D deficiency E55.9 ; Screening for lipid disorders Z13.220 and On antiepileptic therapy Z79.8[id number] [place] [address] Feb, [place] [id number] [place] [address] Feb, [facility] [address] [address] Feb, Dysuria R30.0 and Plantar fasciitis of right foot M72.[address] [address] Feb, [facility] [address] [place] [address] Feb, [facility] [id number] [place] [address] Jan, [facility] [id number] [place] [address] Jan, [facility] [id number] [place] [address] Dec, [facility] [id number] [place] [address] Dec, [facility] [id number] [place] [address] Dec, [facility] [id number] [place] [address] Nov, [facility] [id number] [place] [address] Sep, [facility] [id number] [place] [address] Aug, Shortness of breath R06.02 and Acute suppurative otitis media of right ear without spontaneous rupture of tympanic membrane, recurrence not specified H66.001 [place] [id number] [place] [address] 14 Aug, 2015 Internal prolapsed hemorrhoids K64.8 [facility] [id number] [place] [address] Jun, 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 [place] [address] [place] [address] May, Fibromyalgia M79.7 ; Interstitial cystitis N30.10 ; Intractable migraine without aura and without status migrainosus G43.019 ; Low vitamin D level E55.9 and Ringing in right ear H93.11 [facility] [id number] [place] [address] May, [facility] [address] [address] May, Low vitamin D level E55.9 [facility] [address] [address] Apr, [facility] [address] [address] Mar, [facility] [address] [address] Mar, Acute suppurative otitis media of right ear without spontaneous rupture of tympanic membrane, recurrence not specified H66.001 ; Encounter for immunization Z23 ; Asthma with acute exacerbation, unspecified asthma severity J45.901 ; Memory problem R41.3 ; Acute pain of right knee M25.561 ; Chronic fatigue R53.82 and Excessive urinary volume R35.8 [facility] [address] [address] Feb, [facility] [address] [address] Feb, [facility] [address] [address] Jan, [facility] [address] [address] 17 Nov, 2014 Esophageal reflux 530.81 ; Anxiety 300.00 and Tingling in extremities 782.0 [facility] [address] [address] Oct, [facility] [address] [address] Oct, [facility] [address] [address] Oct, [facility] [address] [address] Oct, [facility] [address] [address] Oct, [facility] [id number] [place] [address] Sep, Other chronic allergic conjunctivitis 372.14 ; Irritable bowel syndrome 564.1 ; 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 ; Fibromyalgia 729.1 ; Extremity pain 729.5 and Neck pain 723.1 [facility] [address] [address] Sep, [facility] [id number] [place] [address] Aug, [facility] [id number] [place] [address] Aug, [facility] [id number] [place] [address] July, Vomiting 787.03 [facility] [id number] [place] [id number] July, Dental examination V72.2 [facility] [address] [address] Jun, [facility] [address] [address] Jun, [facility] [address] [address] May, [facility] [address] [address] May, [facility] [id number] [place] [address] May, [facility] [address] [address] May, [facility] [id number] [place] [address] 05 May, 2014 [facility] [place] [facility] [address] [id number] [place] [address] May, [facility] [place] [facility] [address] [id number] [place] [address] May, [facility] [place] [facility] [address] [id number] [place] [address] May, [facility] [place] [facility] [address] [id number] [place] [address] May, [facility] [place] [facility] [address] [id number] [place] [address] Apr, 2014 [facility] [place] [facility] [address] [id number] [place] [address] Apr, 2014 [facility] [place] [facility] [address] [id number] [place] [address] Apr, 2014 [facility] [place] [facility] [address] [id number] [place] [address] Apr, [facility] [place] [facility] [address] [id number] [place] [address] Apr, [facility] [place] [facility] [address] [id number] [place] [address] Apr, [facility] [place] [facility] [address] [id number] [place] [address] Mar, [facility] [place] [facility] [address] [id number] [place] [address] Mar, [facility] [place] [facility] [address] [id number] [place] [address] Mar, [facility] [place] [facility] [address] [id number] [place] [address] Mar, [facility] [place] [facility] [address] [id number] [place] [address] Mar, [facility] [place] [facility] [address] [id number] [place] [address] Mar, [facility] [place] [facility] [address] [id number] [place] [address] Mar, [facility] [place] [facility] [address] [id number] [place] [address] Mar, [facility] [place] [facility] [address] [id number] [place] [address] Mar, [facility] [address] [id number] [place] [address] Mar, [facility] [place] [facility] [address] [id number] [place] [address] Mar, [facility] [address] [id number] [place] [address] Mar, [facility] [address] [id number] [place] [address] Mar, [facility] [place] [facility] [address] [id number] [place] [address] Mar, [facility] [place] [facility] [address] [id number] [place] [address] Mar, [facility] [place] [facility] [address] [id number] [place] [address] Mar, [facility] [place] [facility] [address] [id number], [place] [address] Mar, [facility] [place] [facility] [address] [id number] [place] [address] Mar, [facility] [place] [facility] [address] [id number] [place] [address] Mar, [facility] [place] [facility] [address] [id number] [place] [address] Feb, [facility] [place] [facility] [address] [id number], [place] [address] 18 Feb, 2014 [facility] [place] [facility] [address] [id number] [place] [address] Feb, [facility] [place] [facility] [address] [id number] [place] [address] Feb, [facility] [place] [facility] [address] [id number] [place] [address] Jan, [facility] [place] [facility] [address] [id number] [place] [address] Jan, [facility] [place] [facility] [address] [id number] [place] [address] Jan, [facility] [place] [facility] [address] [id number] [place] [address] Jan, [facility] [place] [facility] [address] [id number] [place] [address] Jan, [facility] [place] [facility] [address] [id number] [place] [address] Jan, [facility] [place] [facility] [address] [id number] [place] [address] Jan, [facility] [place] [facility] [address] [id number] [place] [address] Jan, [facility] [place] [facility] [address] [id number] [place] [address] Dec, [facility] [place] [facility] [address] [id number] [place] [address] Dec, [facility] [place] [facility] [address] [id number] [place] [address] 17 Dec, 2013 [facility] [place] [facility] [address] [id number] [place] [address] Dec, [facility] [place] [facility] [address] [id number] [place] [address] Nov, [facility] [place] [facility] [address] [id number] [place] [address] 22 Nov, 2013 [facility] [place] [facility] [address] [id number] [place] [address] 08 Nov, 2013 [facility] [place] [facility] [address] [id number] [place] [address] 08 Nov, 2013 [facility] [place] [facility] [address] [id number] [place] [address] 05 Sep, 2013 [facility] [place] [facility] [address] [id number] [place] [address] 05 Nov, 2013 [facility] [place] [facility] [address] [id number] [place] [address] 04 Nov, 2013 [facility] [place] [facility] [address] [id number] [place] [address] 04 Nov, 2013 [facility] [place] [facility] [address] [id number] [place] [address] Nov, 2013 [facility] [place] [facility] [address] [id number] [place] [address] Nov, 2013 [facility] [place] [facility] [address] [id number] [place] [address] Oct, [facility] [place] [facility] [address] [id number] [place] [address] Oct, [facility] [place] [facility] [address] [id number] [place] [address] Sep, [facility] [place] [facility] [address] [id number] [place] [address] Sep, [facility] [place] [facility] [address] [id number] [place] [address] Sep, [facility] [place] [facility] [address] [id number] [place] [address] Sep, [facility] [place] [facility] [address] [id number] [place] [address] Sep, [facility] [place] [facility] [address] [id number] [place] [address] Sep, [facility] [place] [facility] [address] [id number] [place] [address] Aug, [facility] [place] [facility] [address] [id number] [place] [address] Aug, [facility] [place] [facility] [address] [id number] [place] [address] Aug, [facility] [place] [facility] [address] [id number] [place] [address] Aug, [facility] [place] [facility] [address] [id number] [place] [address] Aug, [facility] [place] [facility] [address] [id number] [place] [address] Aug, [facility] [place] [facility] [address] [id number] [place] [address] July, [facility] [place] [facility] [address] [id number] [place] [address] July, [facility] [place] [facility] [address] [id number] [place] [address] July, [facility] [place] [facility] [address] [id number] [place] [address] July, [facility] [place] [facility] [address] [id number] [place] [address] July, [facility] [place] [facility] [address] [id number] [place] [address] July, [facility] [place] [facility] [address] [id number] [place] [address] Jun, [facility] [place] [facility] [address] [id number] [place] [address] Jun, [facility] [place] [facility] [address] [id number] [place] [address] Jun, [facility] [place] [facility] [address] [id number] [place] [address] Jun, [facility] [place] [facility] [address] [id number] [place] [address] May, [facility] [place] [facility] [address] [id number] [place] [address] May, [facility] [place] [facility] [address] [id number] [place] [address] Apr, [facility] [place] [facility] [address] [id number] [place] [address] Apr, [facility] [place] [facility] [address] [id number] [place] [address] Apr, [facility] [place] [facility] [address] [id number] [place] [address] Apr, [facility] [place] [facility] [address] [id number] [place] [address] Mar, [facility] [place] [facility] [address] [id number] [place] [address] Mar, [facility] [place] [facility] [address] [id number] [place] [address] Mar, [facility] [place] [facility] [address] [id number] [place] [address] Mar, [facility] [place] [facility] [address] [id number], [place] [address] Mar, [facility] [place] [facility] [address] [id number] [place] [address] Mar, [facility] [place] [facility] [address] [id number] [place] [address] Feb, [facility] [place] [facility] [address] [id number] [place] [address] Feb, [facility] [place] [facility] [address] [id number] [place] [address] Jan, [facility] [place] [facility] [address] [id number] [place] [address] Jan, [facility] [place] [facility] [address] [id number] [place] [address] Jan, [facility] [place] [facility] [address] [id number] [place] [address] Jan, [facility] [address] [id number] [place] [address] Nov, [facility] [place] [facility] [address] [id number] [place] [address] Nov, [facility] [address] [id number] [place] [address] Oct, [facility] [place] [facility] [address] [id number] [place] [address] Oct, [facility] [place] [facility] [address] [id number] [place] [address] Sep, [facility] [place] [facility] [address] [id number] [place] [address] Sep, [facility] [place] [facility] [address] [id number] [place] [address] Sep, [facility] [place] [facility] [address] [id number], [place] [address] Aug, [facility] [place] [facility] [address] [id number] [place] [address] Aug, [facility] [place] [facility] [address] [id number] [place] [address] Aug, [facility] [place] [facility] [address] [id number] [place] [address] Aug, [facility] [place] [facility] [address] [id number], [place] [address] July, [facility] [address] [id number] [place] [address] July, [facility] [address] [id number] [place] [address] July, [facility] [address] [id number] [place] [address] July, [facility] [address] [id number] [place] [address] Jun, [facility] [address] [id number] [place] [address] Jun, [facility] [address] [id number] [place] [address] Jun, [facility] [facility] [address] [id number] [place] [address] May, [facility] [address] [id number] [place] [address] May, [facility] [address] [id number] [place] [address] Apr, [facility] [address] [id number], [place] [address] Apr, [facility] [address] [id number], [place] [address] Apr, [facility] [place] [facility] [address] [id number], [place] [address] Apr, [facility] [place] [facility] [address] [id number] [place] [address] Mar, [facility] [place] [facility] [address] [id number] [place] [address] Mar, [facility] [place] [facility] [address] [id number], [place] [address] Mar, [facility] [place] [facility] [address] [id number] [place] [address] 02 Mar, 2012 [facility] [place] [facility] [address] [id number] [place] [address] 11 Feb, 2012 [facility] [place] [facility] [address] [id number] [place] [address] Feb, [facility] [place] [facility] [address] [id number] [place] [address] Feb, [facility] [place] [facility] [address] [id number] [place] [address] Feb, [facility] [place] [facility] [address] [id number] [place] [address] Feb, [facility] [place] [facility] [address] [id number] [place] [address] Feb, [facility] [place] [facility] [address] [id number] [place] [address] Feb, [facility] [place] [facility] [address] [id number] [place] [address] Feb, [facility] [place] [facility] [address] [id number] [place] [address] 28 Jan, 2012 [facility] [place] [facility] [address] [id number] [place] [address] 28 Jan, 2012 [facility] [place] [facility] [address] [id number] [place] [address] 15 Jan, 2012 [facility] [place] [facility] [address] [id number] [place] [address] 15 Jan, 2012 [facility] [place] [facility] [address] [id number] [place] [address] 14 Jan, 2012 [facility] [place] [facility] [address] [id number] [place] [address] 13 Jan, 2012 [facility] [place] [facility] [address] [id number] [place] [address] Jan, [facility] [place] [facility] [address] [id number] [place] [address] Jan, [facility] [place] [facility] [address] [id number], [place] [address] Jan, [facility] [place] [facility] [address] [facility] [id number] [place] [address] Jan, [facility] [place] [facility] [address] [id number], [place] [address] Jan, [facility] [place] [facility] [address] [id number] [place] [address] Dec, [facility] [place] [facility] [address] [id number], [place] [address] Dec, [facility] [place] [facility] [address] [id number], [place] [address] Dec, [facility] [place] [facility] [address] [id number], [place] [address] Dec, [facility] [place] [facility] [address] [id number], [place] [address] Dec, [facility] [place] [facility] [address] [facility] [id number], [place] [address] Dec, [facility] [place] [facility] [address] [id number], [place] [address] Dec, [facility] [place] [facility] [address] [id number], [place] [address] Dec, [facility] [place] [facility] [address] [id number], [place] [address] 15 Dec, 2011 [facility] [place] [facility] [address] [facility] [id number], [place] [address] 15 Dec, 2011 [facility] [place] [facility] [address] [facility] [id number], [place] [address] Dec, [facility] [place] [facility] [address] [id number] [place] [address] Dec, [facility] [place] [facility] [address] [id number] [place] [address] Nov, [facility] [place] [facility] [address] [id number] [place] [address] Oct, [facility] [place] [facility] [address] [id number] [place] [address] Oct, [facility] [place] [facility] [address] [id number] [place] [address] Oct, [facility] [place] [facility] [address] [id number] [place] [address] Oct, [facility] [place] [facility] [address] [id number] [place] [address] Sep, [facility] [place] [facility] [address] [id number] [place] [address] Sep, [facility] [place] [facility] [address] [id number] [place] [address] Sep, [facility] [place] [facility] [address] [id number] [place] [address] Sep, [facility] [place] [facility] [address] [id number] [place] [address] Aug, [facility] [place] [facility] [address] [id number] [place] [address] Aug, [facility] [place] [facility] [address] [id number] [place] [address] Aug, [facility] [place] [facility] [address] [id number] [place] [address] Aug, [facility] [place] [facility] [address] [id number] [place] [address] Aug, [facility] [place] [facility] [address] [id number] [place] [address] July, [facility] [address] [facility] [id number] [place] [address] July, [facility] [address] [facility] [id number], [place] [address] July, [facility] [address] [facility] [id number] [place] [address] Dec, IMMUNIZATIONS No Known Immunizations SOCIAL HISTORY Never Assessed REASON FOR VISIT Refill request PLAN OF CARE VITAL SIGNS MEDICATIONS Unknown [...]
--- OUTSIDE RECORDS SUMMARY | 2018-10-24 12:17 | XMS REPORT ---
Author Author SHARRI KUMAR [facility] Address Unknown Care Team Providers Care Groutman Name Role Phone SHARRI KUMAR Unavailable PROBLEMS Type Condition ICD9-CM Code PFZ48-YR Code Onset Dates Condition Status SNOMED Code Problem Fibromyalgia M79.7 Active 75126065 Problem Tinnitus of both ears H93.13 Active 6733970115676 Problem Irritable bowel syndrome without diarrhea K58.9 Active 08840108 Problem COPD exacerbation J44.1 Active 028701314 Problem Menopausal symptoms N95.1 Active 29204847 Problem On antiepileptic therapy Z79.899 Active 761517432 Problem Chronic obstructive pulmonary disease, unspecified COPD type J44.9 Active 55127077 Problem Irritable bowel syndrome with diarrhea K58.0 Active 598880499 Problem Vitamin D deficiency E55.9 Active 34757466 Problem MRSA (methicillin resistant staph aureus) culture positive Z22.322 Active 145160205 Problem Epilepsy G40.909 Active 31487198 Problem Generalized anxiety disorder F41.1 Active 546776831 Problem Interstitial cystitis N30.10 Active 370614296 Problem Esophageal reflux K21.9 Active 892223042 Problem Major depressive disorder F32.9 Active 713705450 Problem Lumbago M54.5 Active 120398724 ALLERGIES No Information ENCOUNTERS Encounter Location Date Diagnosis [facility] [address] [facility] [id number], [place] [address] Dec, [facility] [address] [facility] [id number], [place] [address] Oct, [facility] [address] [facility] [id number] [id number] Oct, [facility] [address] [facility] [id number], [place] [address] Oct, [facility] [address] [id number], [place] [address] Sep, [facility] [id number] [place] [address] Sep, [facility] [id number] [place] [address] Sep, [facility] [id number] [place] [id number] Aug, Dental examination Z01.20 [facility] [address] [address] Aug, Abscess of axilla, left L02.412 [facility] [address] [address] Aug, Esophageal reflux K21.9 [facility] [address] [address] Aug, [facility] [address] [address] Aug, Esophageal reflux K21.9 ; Fluid level behind tympanic membrane of right ear H65.91 ; Fibromyalgia M79.7 and Lumbago M54.5 [facility] [id number] [place] [address] Aug, Esophageal reflux K21.9 [facility] [id number] [place] [address] July, [facility] [id number] [place] [address] July, [facility] [id number] [place] [address] July, Chronic obstructive pulmonary disease, unspecified COPD type J44.9 [facility] [id number] [place] [address] July, [facility] [id number] [place] [address] July, [place] [id number] [place] [address] July, Interstitial cystitis N30.10 ; Fibromyalgia M79.7 [...] Dysuria R30.0 and Generalized anxiety disorder F41.1 [place] [address] [address] Jun, [place] [address] [address] Jun, Chronic obstructive pulmonary disease, unspecified COPD type J44.9 ; COPD exacerbation J44.1 and Sore throat J02.9 [place] [address] [address] Jun, Fibromyalgia M79.7 [place] [address] [address] Jun, Fibromyalgia M79.7 [place] [address] [address] May, [place] [address] [address] May, [place] [address] [address] May, Fibromyalgia M79.7 [place] [address] [address] Mar, [place] [address] [address] Mar, Epilepsy G40.909 ; Lumbago M54.5 ; Esophageal reflux K21.9 ; Fibromyalgia M79.7 ; Chronic obstructive pulmonary disease, unspecified COPD type J44.9 ; Vitamin D deficiency E55.9 ; Fluid level behind tympanic membrane of right ear H65.91 ; Irritable bowel syndrome with diarrhea K58.0 ; Hematochezia K92.1 and Generalized anxiety disorder F41.1 [facility] [id number] [place] [address] Mar, [facility] [address] [address] Mar, [facility] [address] [address] Mar, Vitamin D deficiency E55.9 [facility] [id number] [place] [address] Feb, [facility] [address] [address] Feb, [facility] [id number] [place] [address] Jan, Fibromyalgia M79.7 [facility] [address] [address] Jan, [facility] [id number] [place] [address] Jan, [facility] [id number] [place] [address] Jan, Vitamin D deficiency E55.9 [facility] [id number] [place] [address] Dec, [facility] [id number] [place] [address] Dec, [facility] [id number] [place] [address] Dec, Generalized anxiety disorder F41.1 [facility] [id number] [place] [address] Dec, Dysuria R30.0 ; Acute bilateral low back pain without sciatica M54.5 and Encounter for immunization Z23 [facility] [id number] [place] [address] Oct, [facility] [id number] [place] [address] Oct, Fibromyalgia M79.7 [facility] [id number] [place] [address] Sep, Dysuria R30.0 and Acute bronchitis, unspecified organism J20.9 [facility] [id number] [place] [address] Sep, [place] [id number] [place] [address] Sep, Rectal prolapse K62.3 [place] [address] [address] Sep, Chronic obstructive pulmonary disease, unspecified COPD type J44.9 [facility] [id number] [place] [id number] Aug, [facility] [id number] [place] [id number] Aug, [place] [address] [place] [address] Aug, Light headedness R42 ; On antiepileptic therapy Z79.899 ; Vitamin D deficiency E55.9 ; Screening for lipid disorders Z13.220 ; Dysuria R30.0 and Hemorrhoids, unspecified hemorrhoid type K64.9 [facility] [id number] [place] [address] Aug, Internal prolapsed hemorrhoids K64.8 [facility] [id number] [place] [address] July, [facility] [id number] [place] [address] May, [place] [address] [address] May, Fever and chills R50.9 and Influenza B J10.1 [place] [address] [address] Apr, [place] [address] [address] Apr, Fibromyalgia M79.7 and Generalized anxiety disorder F41.[address] [address] Mar, Esophageal reflux K21.9 ; Generalized anxiety disorder F41.1 and Epilepsy G40.909 [place] [address] [address] Mar, Epilepsy G40.909 ; Esophageal reflux K21.9 ; Fibromyalgia M79.7 ; Generalized anxiety disorder F41.1 ; Pain of left foot M79.672 ; Pain in right foot M79.671 ; Ear pain, right H92.01 ; Tinnitus of both ears H93.13 ; Chronic obstructive pulmonary disease, unspecified COPD type J44.9 ; Vitamin D deficiency E55.9 ; Screening for lipid disorders Z13.220 and On antiepileptic therapy Z79.899 [place] [address] [address] Feb, [place] [id number] [place] [address] Feb, [facility] [address] [address] Feb, Dysuria R30.0 and Plantar fasciitis of right foot M72.2 [place] [address] [address] Feb, [place] [address] [address] Feb, [facility] [id number] [place] [address] Jan, [facility] [id number] [place] [address] Jan, [facility] [id number] [place] [address] Dec, [facility] [address] [address] Dec, [facility] [id number] [place] [address] Dec, [facility] [id number] [place] [address] Nov, [facility] [id number] [place] [address] Sep, [facility] [id number] [place] [address] Aug, Shortness of breath R06.02 and Acute suppurative otitis media of right ear without spontaneous rupture of tympanic membrane, recurrence not specified H66.001 [place] [id number] [place] [address] 14 Aug, 2015 Internal prolapsed hemorrhoids K64.8 [facility] [id number] [place] [address] Jun, 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 [facility] [id number] [place] [address] May, Fibromyalgia M79.7 ; Interstitial cystitis N30.10 ; Intractable migraine without aura and without status migrainosus G43.019 ; Low vitamin D level E55.9 and Ringing in right ear H93.11 [facility] [id number] [place] [address] May, [facility] [id number] [place] [address] May, Low vitamin D level E55.9 [facility] [id number] [place] [address] Apr, [facility] [id number] [place] [address] Mar, [facility] [address] [address] Mar, Acute suppurative otitis media of right ear without spontaneous rupture of tympanic membrane, recurrence not specified H66.001 ; Encounter for immunization Z23 ; Asthma with acute exacerbation, unspecified asthma severity J45.901 ; Memory problem R41.3 ; Acute pain of right knee M25.561 ; Chronic fatigue R53.82 and Excessive urinary volume R35.8 [facility] [address] [address] Feb, [facility] [address] [address] Feb, [facility] [address] [address] Jan, [facility] [id number] [place] [address] Nov, Esophageal reflux 530.81 ; Anxiety 300.00 and Tingling in extremities 782.0 [facility] [id number] [place] [address] Oct, [facility] [address] [address] Oct, [facility] [id number] [place] [address] Oct, [facility] [id number] [place] [address] Oct, [facility] [address], [place] [address] Oct, [facility] [id number] [place] [address] Sep, Other chronic allergic conjunctivitis 372.14 ; Irritable bowel syndrome 564.1 ; 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 ; Fibromyalgia 729.1 ; Extremity pain 729.5 and Neck pain 723.1 [facility] [id number] [place] [address] Sep, [facility] [id number] [place] [address] Aug, [facility] [id number] [place] [address] Aug, [facility] [id number] [place] [address] July, Vomiting 787.03 [facility] [id number] [place] [id number] July, Dental examination V72.2 [facility] [id number] [place] [address] Jun, [facility] [address], [place] [address] Jun, [facility] [address], [place] [address] May, [facility] [address], [place] [address] May, [facility] [id number] [place] [address] May, [facility] [address], [place] [address] May, [facility] [address] [place] [address] May, [facility] [place] [facility] [address] [id number] [place] [address] May, [facility] [place] [facility] [address] [id number] [place] [address] May, [facility] [place] [facility] [address] [id number] [place] [address] May, [facility] [place] [facility] [address] [id number] [place] [address] May, [facility] [place] [facility] [address] [id number] [place] [address] Apr, [facility] [place] [facility] [address] [id number] [place] [address] Apr, [facility] [place] [facility] [address] [id number] [place] [address] Apr, [facility] [place] [facility] [address] [id number] [place] [address] Apr, [facility] [place] [facility] [address] [id number] [place] [address] Apr, [facility] [place] [facility] [address] [id number] [place] [address] Apr, [facility] [place] [facility] [address] [id number] [place] [address] Mar, [facility] [place] [facility] [address] [id number] [place] [address] Mar, [facility] [place] [facility] [address] [id number] [place] [address] Mar, [facility] [place] [facility] [address] [id number] [place] [address] Mar, [facility] [place] [facility] [address] [id number] [place] [address] Mar, [facility] [place] [facility] [address] [id number] [place] [address] Mar, [facility] [address] [id number] [place] [address] Mar, [facility] [place] [facility] [address] [id number] [place] [address] Mar, [facility] [place] [facility] [address] [id number] [place] [address] Mar, [facility] [place] [facility] [address] [id number] [place] [address] Mar, [facility] [place] [facility] [address] [id number] [place] [address] Mar, [facility] [place] [facility] [address] [id number] [place] [address] Mar, [facility] [place] [facility] [address] [id number] [place] [address] Mar, [facility] [place] [facility] [address] [id number] [place] [address] Mar, [facility] [place] [facility] [address] [id number] [place] [address] Mar, [facility] [place] [facility] [address] [id number] [place] [address] Mar, [facility] [place] [facility] [address] [id number] [place] [address] Mar, [facility] [place] [facility] [address] [id number] [place] [address] Mar, [facility] [place] [facility] [address] [id number] [place] [address] Mar, [facility] [place] [facility] [address] [id number] [place] [address] Feb, [facility] [place] [facility] [address] [id number] [place] [address] Feb, [facility] [place] [facility] [address] [id number] [place] [address] Feb, [facility] [place] [facility] [address] [id number] [place] [address] Feb, [facility] [place] [facility] [address] [id number] [place] [address] Jan, [facility] [place] [facility] [address] [id number] [place] [address] Jan, [facility] [place] [facility] [address] [id number] [place] [address] Jan, [facility] [place] [facility] [address] [id number] [place] [address] Jan, [facility] [place] [facility] [address] [id number] [place] [address] Jan, [facility] [place] [facility] [address] [id number] [place] [address] Jan, [facility] [place] [facility] [address] [id number] [place] [address] Jan, [facility] [place] [facility] [address] [id number] [place] [address] Jan, [facility] [place] [facility] [address] [id number] [place] [address] Dec, [facility] [place] [facility] [address] [id number] [place] [address] Dec, [facility] [place] [facility] [address] [id number] [place] [address] Dec, [facility] [place] [facility] [address] [id number] [place] [address] Dec, [facility] [place] [facility] [address] [id number] [place] [address] Nov, [facility] [place] [facility] [address] [id number] [place] [address] Nov, 2013 [facility] [place] [facility] [address] [id number] [place] [address] 08 Nov, 2013 [facility] [place] [facility] [address] [id number] [place] [address] 08 Nov, 2013 [facility] [place] [facility] [address] [id number] [place] [address] 05 Nov, 2013 [facility] [place] [facility] [address] [id number] [place] [address] 05 Nov, 2013 [facility] [place] [facility] [address] [id number] [place] [address] 04 Nov, 2013 [facility] [place] [facility] [address] [id number] [place] [address] 04 Nov, 2013 [facility] [place] [facility] [address] [id number] [place] [address] Nov, 2013 [facility] [place] [facility] [address] [id number] [place] [address] Nov, 2013 [facility] [place] [facility] [address] [id number] [place] [address] Oct, [facility] [place] [facility] [address] [id number] [place] [address] Oct, [facility] [place] [facility] [address] [id number] [place] [address] Sep, [facility] [place] [facility] [address] [id number] [place] [address] Sep, [facility] [place] [facility] [address] [id number] [place] [address] Sep, [facility] [place] [facility] [address] [id number] [place] [address] Sep, [facility] [place] [facility] [address] [id number] [place] [address] Sep, [facility] [place] [facility] [address] [id number] [place] [address] Sep, [facility] [address] [id number] [place] [address] Aug, [facility] [place] [facility] [address] [id number] [place] [address] Aug, [facility] [address] [id number] [place] [address] Aug, [facility] [place] [facility] [address] [id number] [place] [address] Aug, [facility] [place] [facility] [address] [id number] [place] [address] Aug, [facility] [place] [facility] [address] [id number] [place] [address] Aug, [facility] [address] [id number] [place] [address] July, [facility] [address] [id number] [place] [address] July, [facility] [place] [facility] [address] [id number] [place] [address] July, [facility] [address] [id number] [place] [address] July, [facility] [place] [facility] [address] [id number] [place] [address] July, [facility] [place] [facility] [address] [id number] [place] [address] July, [facility] [place] [facility] [address] [id number] [place] [address] Jun, [facility] [place] [facility] [address] [id number] [place] [address] Jun, [facility] [place] [facility] [address] [id number] [place] [address] Jun, [facility] [place] [facility] [address] [id number] [place] [address] Jun, [facility] [place] [facility] [address] [id number] [place] [address] May, [facility] [place] [facility] [address] [id number] [place] [address] May, [facility] [place] [facility] [address] [id number] [place] [address] Apr, [facility] [place] [facility] [address] [id number] [place] [address] Apr, [facility] [place] [facility] [address] [id number] [place] [address] Apr, [facility] [place] [facility] [address] [id number] [place] [address] Apr, [facility] [place] [facility] [address] [id number] [place] [address] Mar, [facility] [place] [facility] [address] [id number] [place] [address] Mar, [facility] [place] [facility] [address] [id number] [place] [address] Mar, [facility] [place] [facility] [address] [id number] [place] [address] Mar, [facility] [place] [facility] [address] [id number], [place] [address] Mar, [facility] [place] [facility] [address] [id number] [place] [address] Mar, [facility] [place] [facility] [address] [id number] [place] [address] Feb, [facility] [place] [facility] [address] [id number] [place] [address] Feb, [facility] [place] [facility] [address] [id number] [place] [address] Jan, [facility] [place] [facility] [address] [id number] [place] [address] Jan, [facility] [place] [facility] [address] [id number] [place] [address] Jan, [facility] [place] [facility] [address] [id number] [place] [address] Jan, [facility] [place] [facility] [address] [id number] [place] [address] Nov, [facility] [place] [facility] [address] [id number] [place] [address] Nov, [facility] [place] [facility] [address] [id number] [place] [address] Oct, [facility] [place] [facility] [address] [id number] [place] [address] Oct, [facility] [place] [facility] [address] [id number] [place] [address] Sep, [facility] [place] [facility] [address] [id number] [place] [address] Sep, [facility] [place] [facility] [address] [id number] [place] [address] Sep, [facility] [place] [facility] [address] [id number] [place] [address] Aug, [facility] [place] [facility] [address] [id number] [place] [address] Aug, [facility] [place] [facility] [address] [id number] [place] [address] Aug, [facility] [place] [facility] [address] [id number] [place] [address] Aug, [facility] [place] [facility] [address] [id number] [place] [address] July, [facility] [place] [facility] [address] [id number] [place] [address] July, [facility] [address] [id number] [place] [address] July, [facility] [address] [id number] [place] [address] July, [facility] [address] [id number] [place] [address] Jun, [facility] [address] [id number] [place] [address] Jun, [facility] [address] [id number] [place] [address] Jun, [facility] [address] [id number] [place] [address] May, [facility] [address] [id number] [place] [address] May, [facility] [address] [id number] [place] [address] Apr, [facility] [address] [id number] [place] [address] Apr, [facility] [address] [id number] [place] [address] Apr, [facility] [address] [id number] [place] [address] Apr, [facility] [place] [facility] [address] [id number] [place] [address] Mar, [facility] [place] [facility] [address] [id number] [place] [address] Mar, [facility] [place] [facility] [address] [id number] [place] [address] Mar, [facility] [place] [facility] [address] [id number], [place] [address] 02 Mar, 2012 [facility] [place] [facility] [address] [id number] [place] [address] 11 Feb, 2012 [facility] [place] [facility] [address] [address] [id number] [place] [address] 10 Feb, 2012 [facility] [place] [facility] [address] [id number] [place] [address] Feb, [facility] [place] [facility] [address] [id number] [place] [address] 10 Feb, 2012 [facility] [place] [facility] [address] [id number] [place] [address] Feb, [facility] [place] [facility] [address] [id number] [place] [address] 06 Feb, 2012 [facility] [place] [facility] [address] [id number] [place] [address] 04 Feb, 2012 [facility] [place] [facility] [address] [id number] [place] [address] 04 Feb, 2012 [facility] [place] [facility] [address] [id number] [place] [address] 28 Jan, 2012 [facility] [place] [facility] [address] [id number] [place] [address] 28 Jan, 2012 [facility] [place] [facility] [address] [id number] [place] [address] 15 Jan, 2012 [facility] [place] [facility] [address] [id number] [place] [address] 15 Jan, 2012 [facility] [place] [facility] [address] [id number] [place] [address] 14 Jan, 2012 [facility] [place] [facility] [address] [id number] [place] [address] 13 Jan, 2012 [facility] [place] [facility] [address] [id number] [place] [address] 13 Jan, 2012 [facility] [place] [facility] [address] [id number] [place] [address] Jan, [facility] [place] [facility] [address] [id number] [place] [address] Jan, [facility] [place] [facility] [address] [id number] [place] [address] Jan, [facility] [place] [facility] [address] [id number] [place] [address] Jan, [facility] [place] [facility] [address] [id number] [place] [address] Dec, [facility] [place] [facility] [address] [id number] [place] [address] Dec, [facility] [place] [facility] [address] [id number] [place] [address] Dec, [facility] [place] [facility] [address] [id number] [place] [address] Dec, [facility] [place] [facility] [address] [id number] [place] [address] Dec, [facility] [place] [facility] [address] [id number] [place] [address] Dec, [facility] [place] [facility] [address] [facility] [id number] [place] [address] Dec, [facility] [place] [facility] [address] [id number] [place] [address] Dec, [facility] [place] [facility] [address] [id number] [place] [address] Dec, [facility] [place] [facility] [address] [id number] [place] [address] Dec, [facility] [place] [facility] [address] [facility] [id number] [place] [address] Dec, [facility] [place] [facility] [address] [id number] [place] [address] Dec, [facility] [place] [facility] [address] [id number] [place] [address] Nov, [facility] [place] [facility] [address] [id number] [place] [address] Oct, [facility] [place] [facility] [address] [id number] [place] [address] Oct, [facility] [place] [facility] [address] [id number] [place] [address] Oct, [facility] [place] [facility] [address] [id number] [place] [address] Oct, [facility] [place] [facility] [address] [id number] [place] [address] Sep, [facility] [place] [facility] [address] [id number] [place] [address] Sep, [facility] [place] [facility] [address] [id number] [place] [address] Sep, [facility] [place] [facility] [address] [id number] [place] [address] Sep, [facility] [place] [facility] [address] [id number] [place] [address] Aug, [facility] [place] [facility] [address] [id number] [place] [address] Aug, [facility] [place] [facility] [address] [id number] [address] Aug, [facility] [place] [facility] [address] [id number] [place] [address] Aug, [facility] [place] [facility] [address] [id number] [place] [address] Aug, [facility] [place] [facility] [address] [id number] [place] [address] July, [facility] [place] [facility] [address] [facility] [id number] [place] [address] July, [facility] [address] [facility] [id number] [place] [address] July, [facility] [address] [facility] [id number] [place] [address] Dec, IMMUNIZATIONS No Known Immunizations SOCIAL HISTORY Never Assessed REASON FOR VISIT Dental appt PLAN OF CARE VITAL SIGNS MEDICATIONS Unknown [...]
--- OUTSIDE RECORDS SUMMARY | 2018-10-24 12:18 | XMS REPORT ---
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 Name Role Phone NELSONPRADEEP BURGOSHANY Unavailable PROBLEMS Type Condition ICD9-CM Code [id number] Code Onset Dates Condition Status SNOMED Code Problem Fibromyalgia M79.7 Active 54331149 Problem Tinnitus of both ears H93.13 Active 1935863048675 Problem Irritable bowel syndrome without diarrhea K58.9 Active 99391876 Problem COPD exacerbation J44.1 Active 322284070 Problem Menopausal symptoms N95.1 Active 87898069 Problem On antiepileptic therapy Z79.899 Active 091485063 Problem Chronic obstructive pulmonary disease, unspecified COPD type J44.9 Active 91888478 Problem Irritable bowel syndrome with diarrhea K58.0 Active 629880713 Problem Vitamin D deficiency E55.9 Active 22345085 Problem MRSA (methicillin resistant staph aureus) culture positive Z22.322 Active 639626552 Problem Epilepsy G40.909 Active 57339900 Problem Generalized anxiety disorder F41.1 Active 624066687 Problem Interstitial cystitis N30.10 Active 401671275 Problem Esophageal reflux K21.9 Active 610016983 Problem Major depressive disorder F32.9 Active 866271657 Problem Lumbago M54.5 Active 643797416 ALLERGIES No Information ENCOUNTERS Encounter Location Date Diagnosis [facility] [address] [facility] [id number] [address] Dec, [facility] [address] [facility] [id number], [place] [address] Oct, [facility] [address] [id number] [id number] Oct, [facility] [address] [facility] [id number], [place] [address] Oct, [facility] [id number] [place] [address] Sep, [facility] [address] [address] Sep, [facility] [id number] [place] [address] Sep, [facility] [address] [id number] Aug, Dental examination Z01.20 [facility] [id number] [place] [address] Aug, Abscess of axilla, left L02.412 [place] [address] [address] Aug, Esophageal reflux K21.9 [place] [address] [address] Aug, [facility] [address] [address] Aug, Esophageal reflux K21.9 ; Fluid level behind tympanic membrane of right ear H65.91 ; Fibromyalgia M79.7 and Lumbago M54.5 [facility] [id number] [place] [address] Aug, Esophageal reflux K21.9 [facility] [id number] [place] [address] July, [facility] [id number] [place] [address] July, [facility] [address] [address] July, Chronic obstructive pulmonary disease, unspecified COPD type J44.9 [facility] [id number] [place] [address] July, [facility] [id number] [place] [address] July, [place] [id number] [place] [address] July, Interstitial cystitis N30.10 ; Fibromyalgia M79.7 [...] Dysuria R30.0 and Generalized anxiety disorder F41.1 [place] [address] [address] Jun, [place] [id number] [place] [address] Jun, Chronic obstructive pulmonary disease, unspecified COPD type J44.9 ; COPD exacerbation J44.1 and Sore throat J02.9 [place] [id number] [place] [address] Jun, Fibromyalgia M79.7 [place] [id number] [place] [address] Jun, Fibromyalgia M79.7 [place] [id number] [place] [address] May, [place] [id number] [place] [address] May, [place] [id number] [place] [address] May, Fibromyalgia M79.7 [facility] [id number] [place] [address] Mar, [place] [id number] [place] [address] Mar, Epilepsy G40.909 ; Lumbago M54.5 ; Esophageal reflux K21.9 ; Fibromyalgia M79.7 ; Chronic obstructive pulmonary disease, unspecified COPD type J44.9 ; Vitamin D deficiency E55.9 ; Fluid level behind tympanic membrane of right ear H65.91 ; Irritable bowel syndrome with diarrhea K58.0 ; Hematochezia K92.1 and Generalized anxiety disorder F41.1 [facility] [id number] [place] [address] Mar, [facility] [address] [address] Mar, [facility] [address] [address] Mar, Vitamin D deficiency E55.9 [facility] [id number] [place] [address] Feb, [facility] [address] [address] Feb, [facility] [id number] [place] [address] Jan, Fibromyalgia M79.7 [facility] [address] [address] Jan, [facility] [id number] [place] [address] Jan, [facility] [id number] [place] [address] Jan, Vitamin D deficiency E55.9 [facility] [id number] [place] [address] Dec, [facility] [id number] [place] [address] Dec, [facility] [id number] [place] [address] Dec, Generalized anxiety disorder F41.1 [place] [id number] [place] [address] Dec, Dysuria R30.0 ; Acute bilateral low back pain without sciatica M54.5 and Encounter for immunization Z23 [place] [id number] [place] [address] Oct, [place] [address] [address] Oct, Fibromyalgia M79.7 [place] [address] [address] Sep, Dysuria R30.0 and Acute bronchitis, unspecified organism J20.9 [place] [id number] [place] [address] Sep, [place] [address] [address] Sep, Rectal prolapse K62.3 [place] [id number] [place] [address] Sep, Chronic obstructive pulmonary disease, unspecified COPD type J44.9 [place] [address] [place] [id number] [place] [id number] Aug, [place] [address] [id number] Aug, [place] [id number] [place] [address] Aug, Light headedness R42 ; On antiepileptic therapy Z79.899 ; Vitamin D deficiency E55.9 ; Screening for lipid disorders Z13.220 ; Dysuria R30.0 and Hemorrhoids, unspecified hemorrhoid type K64.9 [place] [id number] [place] [address] Aug, Internal prolapsed hemorrhoids K64.8 [place] [id number] [place] [address] July, [place] [id number] [place] [address] May, [address] [address] May, Fever and chills R50.9 and Influenza B J10.[address] [address] Apr, [address] [address] Apr, Fibromyalgia M79.7 and Generalized anxiety disorder F41.[address] [address] Mar, Esophageal reflux K21.9 ; Generalized anxiety disorder F41.1 and Epilepsy G40.[address] [address] Mar, Epilepsy G40.909 ; Esophageal reflux K21.9 ; Fibromyalgia M79.7 ; Generalized anxiety disorder F41.1 ; Pain of left foot M79.672 ; Pain in right foot M79.671 ; Ear pain, right H92.01 ; Tinnitus of both ears H93.13 ; Chronic obstructive pulmonary disease, unspecified COPD type J44.9 ; Vitamin D deficiency E55.9 ; Screening for lipid disorders Z13.220 and On antiepileptic therapy Z79.899 [place] [id number] [place] [address] Feb, [place] [id number] [place] [address] Feb, [facility] [place] [address] [address] Feb, Dysuria R30.0 and Plantar fasciitis of right foot M72.[address] [address] Feb, [facility] [address] [place] [address] Feb, [facility] [id number] [place] [address] Jan, [facility] [id number] [place] [address] Jan, [facility] [id number] [place] [address] Dec, [facility] [id number] [place] [address] Dec, [facility] [id number] [place] [address] Dec, [facility] [id number] [place] [address] Nov, [facility] [id number] [place] [address] Sep, [facility] [id number] [place] [address] Aug, Shortness of breath R06.02 and Acute suppurative otitis media of right ear without spontaneous rupture of tympanic membrane, recurrence not specified H66.001 [place] [id number] [place] [address] 14 Aug, 2015 Internal prolapsed hemorrhoids K64.8 [facility] [id number] [place] [address] Jun, 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 [place] [address] [id number] [place] [address] May, Fibromyalgia M79.7 ; Interstitial cystitis N30.10 ; Intractable migraine without aura and without status migrainosus G43.019 ; Low vitamin D level E55.9 and Ringing in right ear H93.11 [facility] [id number] [place] [address] May, [facility] [address] [address] May, Low vitamin D level E55.9 [facility] [address] [address] Apr, [facility] [address] [address] Mar, [facility] [address] [address] Mar, Acute suppurative otitis media of right ear without spontaneous rupture of tympanic membrane, recurrence not specified H66.001 ; Encounter for immunization Z23 ; Asthma with acute exacerbation, unspecified asthma severity J45.901 ; Memory problem R41.3 ; Acute pain of right knee M25.561 ; Chronic fatigue R53.82 and Excessive urinary volume R35.8 [facility] [address] [address] Feb, [facility] [address] [address] Feb, [facility] [address] [address] Jan, [facility] [address] [address] 17 Nov, 2014 Esophageal reflux 530.81 ; Anxiety 300.00 and Tingling in extremities 782.0 [facility] [address] [address] Oct, [facility] [address] [address] Oct, [facility] [address] [address] Oct, [facility] [address] [address] Oct, [facility] [address] [address] Oct, [facility] [id number] [place] [address] Sep, Other chronic allergic conjunctivitis 372.14 ; Irritable bowel syndrome 564.1 ; 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 ; Fibromyalgia 729.1 ; Extremity pain 729.5 and Neck pain 723.1 [facility] [address] [address] Sep, [facility] [id number] [place] [address] Aug, [facility] [id number] [place] [address] Aug, [facility] [id number] [place] [address] July, Vomiting 787.03 [facility] [id number] [place] [id number] July, Dental examination V72.2 [facility] [address] [address] Jun, [facility] [address] [address] Jun, [facility] [address] [address] May, [facility] [address] [address] May, [facility] [id number] [place] [address] May, [facility] [address] [address] May, [facility] [id number] [place] [address] 05 May, 2014 [facility] [place] [facility] [address] [id number] [place] [address] May, [facility] [place] [facility] [address] [id number] [place] [address] May, [facility] [place] [facility] [address] [facility] [id number] [place] [address] May, [facility] [place] [facility] [address] [id number] [place] [address] May, [facility] [place] [facility] [address] [id number] [place] [address] Apr, 2014 [facility] [place] [facility] [address] [id number] [place] [address] Apr, 2014 [facility] [place] [facility] [address] [facility] [id number] [place] [address] Apr, 2014 [facility] [place] [facility] [address] [facility] [id number] [place] [address] Apr, [facility] [place] [facility] [address] [facility] [id number] [place] [address] Apr, [facility] [place] [facility] [address] [facility] [id number] [place] [address] Apr, [facility] [place] [facility] [address] [facility] [id number] [place] [address] Mar, [facility] [place] [facility] [address] [id number] [place] [address] Mar, [facility] [place] [facility] [address] [id number] [place] [address] Mar, [facility] [place] [facility] [address] [facility] [id number] [place] [address] Mar, [facility] [place] [facility] [address] [id number] [place] [address] Mar, [facility] [place] [facility] [address] [id number] [place] [address] Mar, [facility] [place] [facility] [address] [id number] [place] [address] Mar, [facility] [place] [facility] [address] [id number] [place] [address] Mar, [facility] [place] [facility] [address] [id number] [place] [address] Mar, [facility] [address] [id number] [place] [address] Mar, [facility] [place] [facility] [address] [id number] [place] [address] Mar, [facility] [address] [id number] [place] [address] Mar, [facility] [address] [id number] [place] [address] Mar, [facility] [place] [facility] [address] [id number] [place] [address] Mar, [facility] [place] [facility] [address] [id number] [place] [address] Mar, [facility] [place] [facility] [address] [id number] [place] [address] Mar, [facility] [place] [facility] [address] [id number], [place] [address] Mar, [facility] [place] [facility] [address] [id number] [place] [address] Mar, [facility] [place] [facility] [address] [id number] [place] [address] Mar, [facility] [place] [facility] [address] [id number] [place] [address] Feb, [facility] [place] [facility] [address] [id number], [place] [address] 18 Feb, 2014 [facility] [place] [facility] [address] [id number] [place] [address] Feb, [facility] [place] [facility] [address] [id number] [place] [address] Feb, [facility] [place] [facility] [address] [id number] [place] [address] Jan, [facility] [place] [facility] [address] [id number] [place] [address] Jan, [facility] [place] [facility] [address] [id number] [place] [address] Jan, [facility] [place] [facility] [address] [id number] [place] [address] Jan, [facility] [place] [facility] [address] [id number] [place] [address] Jan, [facility] [place] [facility] [address] [id number] [place] [address] Jan, [facility] [place] [facility] [address] [id number] [place] [address] Jan, [facility] [place] [facility] [address] [id number] [place] [address] Jan, [facility] [place] [facility] [address] [id number] [place] [address] Dec, [facility] [place] [facility] [address] [id number] [place] [address] Dec, [facility] [place] [facility] [address] [id number] [place] [address] 17 Dec, 2013 [facility] [place] [facility] [address] [id number] [place] [address] Dec, [facility] [place] [facility] [address] [id number] [place] [address] Nov, [facility] [place] [facility] [address] [id number] [place] [address] 22 Nov, 2013 [facility] [place] [facility] [address] [id number] [place] [address] 08 Nov, 2013 [facility] [place] [facility] [address] [id number] [place] [address] 08 Nov, 2013 [facility] [place] [facility] [address] [id number] [place] [address] 05 Sep, 2013 [facility] [place] [facility] [address] [id number] [place] [address] 05 Nov, 2013 [facility] [place] [facility] [address] [id number] [place] [address] 04 Nov, 2013 [facility] [place] [facility] [address] [id number] [place] [address] 04 Nov, 2013 [facility] [place] [facility] [address] [id number] [place] [address] Nov, 2013 [facility] [place] [facility] [address] [id number] [place] [address] Nov, 2013 [facility] [place] [facility] [address] [id number] [place] [address] Oct, [facility] [place] [facility] [address] [id number] [place] [address] Oct, [facility] [place] [facility] [address] [id number] [place] [address] Sep, [facility] [place] [facility] [address] [id number] [place] [address] Sep, [facility] [place] [facility] [address] [id number] [place] [address] Sep, [facility] [place] [facility] [address] [id number] [place] [address] Sep, [facility] [place] [facility] [address] [id number] [place] [address] Sep, [facility] [place] [facility] [address] [id number] [place] [address] Sep, [facility] [place] [facility] [address] [id number] [place] [address] Aug, [facility] [place] [facility] [address] [id number] [place] [address] Aug, [facility] [place] [facility] [address] [id number] [place] [address] Aug, [facility] [place] [facility] [address] [id number] [place] [address] Aug, [facility] [place] [facility] [address] [id number] [place] [address] Aug, [facility] [place] [facility] [address] [id number] [place] [address] Aug, [facility] [place] [facility] [address] [id number] [place] [address] July, [facility] [place] [facility] [address] [id number] [place] [address] July, [facility] [place] [facility] [address] [id number] [place] [address] July, [facility] [place] [facility] [address] [id number] [place] [address] July, [facility] [place] [facility] [address] [id number] [place] [address] July, [facility] [place] [facility] [address] [id number] [place] [address] July, [facility] [place] [facility] [address] [id number] [place] [address] Jun, [facility] [place] [facility] [address] [id number] [place] [address] Jun, [facility] [place] [facility] [address] [id number] [place] [address] Jun, [facility] [place] [facility] [address] [id number] [place] [address] Jun, [facility] [place] [facility] [address] [id number] [place] [address] May, [facility] [place] [facility] [address] [id number] [place] [address] May, [facility] [place] [facility] [address] [id number] [place] [address] Apr, [facility] [place] [facility] [address] [id number] [place] [address] Apr, [facility] [place] [facility] [address] [id number] [place] [address] Apr, [facility] [place] [facility] [address] [id number] [place] [address] Apr, [facility] [place] [facility] [address] [id number] [place] [address] Mar, [facility] [place] [facility] [address] [id number] [place] [address] Mar, [facility] [place] [facility] [address] [id number] [place] [address] Mar, [facility] [place] [facility] [address] [id number] [place] [address] Mar, [facility] [place] [facility] [address] [id number] [address] Mar, [facility] [place] [facility] [address] [id number] [place] [address] Mar, [facility] [place] [facility] [address] [id number] [place] [address] Feb, [facility] [place] [facility] [address] [id number] [place] [address] Feb, [facility] [place] [facility] [address] [id number] [place] [address] Jan, [facility] [place] [facility] [address] [id number] [place] [address] Jan, [facility] [place] [facility] [address] [id number] [place] [address] Jan, [facility] [place] [facility] [address] [id number] [place] [address] Jan, [facility] [address] [id number] [place] [address] Nov, [facility] [place] [facility] [address] [id number] [place] [address] Nov, [facility] [address] [id number] [place] [address] Oct, [facility] [place] [facility] [address] [id number] [place] [address] Oct, [facility] [place] [facility] [address] [id number] [place] [address] Sep, [facility] [place] [facility] [address] [id number] [place] [address] Sep, [facility] [place] [facility] [address] [id number] [place] [address] Sep, [facility] [place] [facility] [address] [id number], [place] [address] Aug, [facility] [place] [facility] [address] [id number] [place] [address] Aug, [facility] [place] [facility] [address] [id number] [place] [address] Aug, [facility] [place] [facility] [address] [id number] [place] [address] Aug, [facility] [place] [facility] [address] [id number], [place] [address] July, [facility] [address] [id number] [place] [address] July, [facility] [address] [id number] [place] [address] July, [facility] [address] [id number] [place] [address] July, [facility] [address] [id number] [place] [address] Jun, [facility] [address] [id number] [place] [address] Jun, [facility] [address] [id number] [place] [address] Jun, [facility] [address] [id number] [place] [address] May, [facility] [address] [id number] [place] [address] May, [facility] [address] [id number] [place] [address] Apr, [facility] [address] [id number], [place] [address] Apr, [facility] [address] [id number] [id number] Apr, [facility] [place] [facility] [address] [id number], [place] [address] Apr, [facility] [place] [facility] [address] [id number] [place] [address] Mar, [facility] [place] [facility] [address] [id number] [place] [address] Mar, [facility] [place] [facility] [address] [id number], [place] [address] Mar, [facility] [place] [facility] [address] [id number] [place] [address] 02 Mar, 2012 [facility] [place] [facility] [address] [id number] [place] [address] 11 Feb, 2012 [facility] [place] [facility] [address] [id number] [place] [address] Feb, [facility] [place] [facility] [address] [id number] [place] [address] Feb, [facility] [place] [facility] [address] [id number] [place] [address] Feb, [facility] [place] [facility] [address] [id number] [place] [address] Feb, [facility] [place] [facility] [address] [id number] [place] [address] Feb, [facility] [place] [facility] [address] [id number] [place] [address] Feb, [facility] [place] [facility] [address] [id number] [place] [address] Feb, [facility] [place] [facility] [address] [id number] [place] [address] 28 Jan, 2012 [facility] [place] [facility] [address] [id number] [place] [address] 28 Jan, 2012 [facility] [place] [facility] [address] [id number] [place] [address] 15 Jan, 2012 [facility] [place] [facility] [address] [id number] [place] [address] 15 Jan, 2012 [facility] [place] [facility] [address] [id number] [place] [address] 14 Jan, 2012 [facility] [place] [facility] [address] [id number] [place] [address] 13 Jan, 2012 [facility] [place] [facility] [address] [id number] [place] [address] Jan, [facility] [place] [facility] [address] [id number] [place] [address] Jan, [facility] [place] [facility] [address] [id number], [place] [address] Jan, [facility] [place] [facility] [address] [facility] [id number] [place] [address] Jan, [facility] [place] [facility] [address] [id number], [place] [address] Jan, [facility] [place] [facility] [address] [id number] [place] [address] Dec, [facility] [place] [facility] [address] [id number], [place] [address] Dec, [facility] [place] [facility] [address] [id number], [place] [address] Dec, [facility] [place] [facility] [address] [id number], [place] [address] Dec, [facility] [place] [facility] [address] [id number], [place] [address] Dec, [facility] [place] [facility] [address] [facility] [id number], [place] [address] Dec, [facility] [place] [facility] [address] [id number], [place] [address] Dec, [facility] [place] [facility] [address] [id number], [place] [address] Dec, [facility] [place] [facility] [address] [id number], [place] [address] 15 Dec, 2011 [facility] [place] [facility] [address] [facility] [id number][place] [address] 15 Dec, 2011 [facility] [place] [facility] [address] [facility] [id number], [place] [address] Dec, [facility] [place] [facility] [address] [id number] [place] [address] Dec, [facility] [place] [facility] [address] [id number] [place] [address] Nov, [facility] [place] [facility] [address] [id number] [place] [address] Oct, [facility] [place] [facility] [address] [id number] [place] [address] Oct, [facility] [place] [facility] [address] [id number] [place] [address] Oct, [facility] [place] [facility] [address] [id number] [place] [address] Oct, [facility] [place] [facility] [address] [id number] [place] [address] Sep, [facility] [place] [facility] [address] [id number] [place] [address] Sep, [facility] [place] [facility] [address] [id number] [place] [address] Sep, [facility] [place] [facility] [address] [id number] [place] [address] Sep, [facility] [place] [facility] [address] [id number] [place] [address] Aug, [facility] [place] [facility] [address] [id number] [place] [address] Aug, [facility] [place] [facility] [address] [id number] [place] [address] Aug, [facility] [place] [facility] [address] [id number] [place] [address] Aug, [facility] [place] [facility] [address] [id number] [place] [address] Aug, [facility] [place] [facility] [address] [id number] [place] [address] July, [facility] [address] [facility] [id number] [place] [address] July, [facility] [address] [facility] [id number], [place] [address] July, [facility] [address] [facility] [id number] [place] [address] Dec, IMMUNIZATIONS No Known Immunizations SOCIAL HISTORY Never Assessed REASON FOR VISIT Lyrica refill PLAN OF CARE VITAL SIGNS MEDICATIONS Unknown [...]
--- OUTSIDE RECORDS SUMMARY | 2018-10-24 12:19 | XMS REPORT ---
Author Author NELSON DIANN [facility] Address [address] [place] [address] Care Team Providers Care Edi Architect Name Role Phone DORIS DAMONY Unavailable PROBLEMS Type Condition ICD9-CM Code [id number] Code Onset Dates Condition Status SNOMED Code Problem Fibromyalgia M79.7 Active 28129130 Problem Tinnitus of both ears H93.13 Active 9971040420019 Problem Irritable bowel syndrome without diarrhea K58.9 Active 43916763 Problem COPD exacerbation J44.1 Active 719910225 Problem Menopausal symptoms N95.1 Active 97059944 Problem On antiepileptic therapy Z79.899 Active 280202322 Problem Chronic obstructive pulmonary disease, unspecified COPD type J44.9 Active 02159586 Problem Irritable bowel syndrome with diarrhea K58.0 Active 374008340 Problem Vitamin D deficiency E55.9 Active 08037518 Problem MRSA (methicillin resistant staph aureus) culture positive Z22.322 Active 540675983 Problem Epilepsy G40.909 Active 74481711 Problem Generalized anxiety disorder F41.1 Active 567154792 Problem Interstitial cystitis N30.10 Active 593363915 Problem Esophageal reflux K21.9 Active 429316899 Problem Major depressive disorder F32.9 Active 926865529 Problem Lumbago M54.5 Active 871152604 ALLERGIES No Information ENCOUNTERS Encounter Location Date Diagnosis [facility] [address] [facility] [id number] [address] Dec, [facility] [address] [facility] [id number] [address] Nov, [facility] [address] [facility] [id number] [place] [address] Oct, [facility] [address] [id number] [id number] Oct, [facility] [id number] [place] [address] Oct, [facility] [id number] [place] [address] Sep, [facility] [id number] [place] [address] Sep, [facility] [id number] [place] [address] Sep, [facility] [id number] [place] [id number] Aug, Dental examination Z01.20 [facility] [address] [address] Aug, Abscess of axilla, left L02.412 [facility] [address] [address] Aug, Esophageal reflux K21.9 [facility] [id number] [place] [address] Aug, [facility] [address] [address] Aug, Esophageal reflux K21.9 ; Fluid level behind tympanic membrane of right ear H65.91 ; Fibromyalgia M79.7 and Lumbago M54.5 [facility] [id number] [place] [address] Aug, Esophageal reflux K21.9 [facility] [id number] [place] [address] July, [facility] [id number] [place] [address] July, [facility] [id number] [place] [address] July, Chronic obstructive pulmonary disease, unspecified COPD type J44.9 [facility] [id number] [place] [address] July, [facility] [id number] [place] [address] July, [place] [id number] [place] [address] July, Interstitial cystitis N30.10 ; Fibromyalgia M79.7 [...] Dysuria R30.0 and Generalized anxiety disorder F41.1 [place] [id number] [place] [address] Jun, [place] [address] [address] Jun, Chronic obstructive pulmonary disease, unspecified COPD type J44.9 ; COPD exacerbation J44.1 and Sore throat J02.9 [place] [id number] [place] [address] Jun, Fibromyalgia M79.7 [place] [id number] [place] [address] Jun, Fibromyalgia M79.7 [place] [id number] [place] [address] May, [facility] [id number] [place] [address] May, [place] [id number] [place] [address] May, Fibromyalgia M79.7 [facility] [id number] [place] [address] Mar, [place] [address] [id number] [address] Mar, Epilepsy G40.909 ; Lumbago M54.5 ; Esophageal reflux K21.9 ; Fibromyalgia M79.7 ; Chronic obstructive pulmonary disease, unspecified COPD type J44.9 ; Vitamin D deficiency E55.9 ; Fluid level behind tympanic membrane of right ear H65.91 ; Irritable bowel syndrome with diarrhea K58.0 ; Hematochezia K92.1 and Generalized anxiety disorder F41.1 [facility] [id number] [place] [address] Mar, [facility] [id number] [place] [address] Mar, [facility] [id number] [place] [address] Mar, Vitamin D deficiency E55.9 [facility] [id number] [place] [address] Feb, [facility] [id number] [place] [address] Feb, [facility] [id number] [place] [address] Jan, Fibromyalgia M79.7 [facility] [id number] [address] Jan, [facility] [id number] [place] [address] Jan, [facility] [id number] [place] [address] Jan, Vitamin D deficiency E55.9 [facility] [id number] [place] [address] Dec, [facility] [id number] [address] Dec, [facility] [id number] [place] [address] Dec, Generalized anxiety disorder F41.1 [place] [address] [address] Dec, Dysuria R30.0 ; Acute bilateral low back pain without sciatica M54.5 and Encounter for immunization Z23 [place] [address] [address] Oct, [place] [address] [address] Oct, Fibromyalgia M79.7 [place] [address] [address] Sep, Dysuria R30.0 and Acute bronchitis, unspecified organism J20.9 [place] [address] [address] Sep, [place] [address] [address] Sep, Rectal prolapse K62.3 [place] [address] [address] Sep, Chronic obstructive pulmonary disease, unspecified COPD type J44.9 [place] [id number] [place] [id number] Aug, [place] [address] [id number] Aug, [place] [id number] [place] [address] Aug, Light headedness R42 ; On antiepileptic therapy Z79.899 ; Vitamin D deficiency E55.9 ; Screening for lipid disorders Z13.220 ; Dysuria R30.0 and Hemorrhoids, unspecified hemorrhoid type K64.9 [place] [id number] [place] [address] Aug, Internal prolapsed hemorrhoids K64.8 [place] [address] [place] [address] July, [facility] [id number] [place] [address] May, [place] [id number] [place] [address] May, Fever and chills R50.9 and Influenza B J10.1 [place] [id number] [place] [address] Apr, [place] [address] [address] Apr, Fibromyalgia M79.7 and Generalized anxiety disorder F41.[address] [address] Mar, Esophageal reflux K21.9 ; Generalized anxiety disorder F41.1 and Epilepsy G40.909 [facility] [id number] [place] [address] Mar, Epilepsy G40.909 ; Esophageal reflux K21.9 ; Fibromyalgia M79.7 ; Generalized anxiety disorder F41.1 ; Pain of left foot M79.672 ; Pain in right foot M79.671 ; Ear pain, right H92.01 ; Tinnitus of both ears H93.13 ; Chronic obstructive pulmonary disease, unspecified COPD type J44.9 ; Vitamin D deficiency E55.9 ; Screening for lipid disorders Z13.220 and On antiepileptic therapy Z79.899 [facility] [address] [place] [address] Feb, [place] [id number] [place] [address] Feb, [facility] [id number] [place] [address] Feb, Dysuria R30.0 and Plantar fasciitis of right foot M72.2 [facility] [address] [address] Feb, [facility] [id number] [place] [address] Feb, [facility] [id number] [place] [address] Jan, [facility] [id number] [place] [address] Jan, [facility] [id number] [place] [address] Dec, [facility] [id number] [place] [address] Dec, [facility] [id number] [place] [address] Dec, [facility] [id number] [place] [address] Nov, [facility] [id number] [place] [address] Sep, [facility] [address] [place] [address] Aug, Shortness of breath R06.02 and Acute suppurative otitis media of right ear without spontaneous rupture of tympanic membrane, recurrence not specified H66.001 [facility] [id number] [place] [address] Aug, Internal prolapsed hemorrhoids K64.8 [facility] [address] [place] [address] Jun, 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 [facility] [address] [place] [address] May, Fibromyalgia M79.7 ; Interstitial cystitis N30.10 ; Intractable migraine without aura and without status migrainosus G43.019 ; Low vitamin D level E55.9 and Ringing in right ear H93.11 [facility] [address] [address] May, [facility] [address] [address] May, Low vitamin D level E55.9 [place] [address] [address] Apr, [facility] [address] [address] Mar, [place] [address] [address] Mar, Acute suppurative otitis media of right ear without spontaneous rupture of tympanic membrane, recurrence not specified H66.001 ; Encounter for immunization Z23 ; Asthma with acute exacerbation, unspecified asthma severity J45.901 ; Memory problem R41.3 ; Acute pain of right knee M25.561 ; Chronic fatigue R53.82 and Excessive urinary volume R35.8 [place] [address] [address] Feb, [place] [address] [address] Feb, [place] [address] [address] Jan, [place] [address] [address] Nov, Esophageal reflux 530.81 ; Anxiety 300.00 and Tingling in extremities 782.0 [place] [address] [address] Oct, [place] [address] [address] Oct, [place] [address] [address] Oct, [facility] [address] [address] Oct, [facility] [id number] [place] [address] Oct, [facility] [id number] [place] [address] Sep, Other chronic allergic conjunctivitis 372.14 ; Irritable bowel syndrome 564.1 ; 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 ; Fibromyalgia 729.1 ; Extremity pain 729.5 and Neck pain 723.1 [facility] [id number] [place] [address] Sep, [facility] [id number] [place] [address] Aug, [facility] [id number] [place] [address] Aug, [facility] [address] [place] [address] July, Vomiting 787.03 [facility] [id number] [place] [id number] July, Dental examination V72.2 [facility] [address] [address] Jun, [facility] [address] [place] [address] Jun, [facility] [address] [address] May, [facility] [id number] [place] [address] May, [facility] [address] [address] 16 May, 2014 [facility] [id number] [place] [address] May, [facility] [place] [facility] [address] [id number] [place] [address] May, [facility] [place] [facility] [address] [id number] [place] [address] May, [facility] [place] [facility] [address] [facility] [id number] [place] [address] May, [facility] [place] [facility] [address] [id number] [place] [address] May, [facility] [place] [facility] [address] [id number] [place] [address] May, [facility] [place] [facility] [address] [facility] [id number] [place] [address] Apr, 2014 [facility] [place] [facility] [address] [facility] [id number] [place] [address] Apr, 2014 [facility] [place] [facility] [address] [facility] [id number] [place] [address] Apr, 2014 [facility] [place] [facility] [address] [facility] [id number] [place] [address] Apr, [facility] [place] [facility] [address] [facility] [id number] [place] [address] Apr, [facility] [place] [facility] [address] [facility] [id number] [place] [address] Apr, [facility] [place] [facility] [address] [facility] [id number] [address] Mar, [facility] [place] [facility] [address] [id number] [place] [address] Mar, [facility] [place] [facility] [address] [facility] [id number] [place] [address] Mar, [facility] [place] [facility] [address] [facility] [id number] [place] [address] Mar, [facility] [place] [facility] [address] [id number] [place] [address] Mar, [facility] [place] [facility] [address] [id number] [place] [address] Mar, [facility] [place] [facility] [address] [id number] [place] [address] Mar, [facility] [place] [facility] [address] [id number] [place] [address] Mar, [facility] [address] [id number] [place] [address] Mar, [facility] [place] [facility] [address] [id number] [place] [address] Mar, [facility] [place] [facility] [address] [id number] [place] [address] Mar, [facility] [address] [id number] [place] [address] Mar, [facility] [place] [facility] [address] [id number] [place] [address] Mar, [facility] [place] [facility] [address] [id number] [place] [address] Mar, [facility] [place] [facility] [address] [id number] [place] [address] Mar, [facility] [place] [facility] [address] [id number] [address] Mar, [facility] [place] [facility] [address] [id number] [place] [address] Mar, [facility] [place] [facility] [address] [id number] [place] [address] Mar, [facility] [place] [facility] [address] [id number] [place] [address] Mar, [facility] [place] [facility] [address] [id number] [address] 18 Feb, 2014 [facility] [place] [facility] [address] [id number] [place] [address] 18 Feb, 2014 [facility] [place] [facility] [address] [id number] [place] [address] Feb, [facility] [place] [facility] [address] [id number] [place] [address] Feb, [facility] [place] [facility] [address] [id number] [place] [address] Jan, [facility] [place] [facility] [address] [id number] [place] [address] 20 Jan, 2014 [facility] [place] [facility] [address] [id number] [place] [address] 14 Jan, 2014 [facility] [place] [facility] [address] [id number] [place] [address] Jan, [facility] [place] [facility] [address] [id number] [place] [address] 14 Jan, 2014 [facility] [place] [facility] [address] [id number] [place] [address] 14 Jan, 2014 [facility] [place] [facility] [address] [id number] [place] [address] Jan, [facility] [place] [facility] [address] [id number] [address] Jan, [facility] [place] [facility] [address] [id number] [place] [address] Dec, [facility] [place] [facility] [address] [id number] [place] [address] Dec, [facility] [place] [facility] [address] [id number] [place] [address] 17 Dec, 2013 [facility] [place] [facility] [address] [id number] [place] [address] 17 Dec, 2013 [facility] [place] [facility] [address] [id number] [place] [address] 22 Nov, 2013 [facility] [place] [facility] [address] [id number] [place] [address] 22 Nov, 2013 [facility] [place] [facility] [address] [id number] [place] [address] 08 Nov, 2013 [facility] [place] [facility] [address] [id number] [place] [address] 08 Nov, 2013 [facility] [place] [facility] [address] [id number] [place] [address] 05 Sep, 2013 [facility] [place] [facility] [address] [id number] [place] [address] 05 Nov, 2013 [facility] [place] [facility] [address] [id number] [place] [address] 04 Nov, 2013 [facility] [place] [facility] [address] [id number] [place] [address] 04 Nov, 2013 [facility] [place] [facility] [address] [id number] [place] [address] 03 Nov, 2013 [facility] [place] [facility] [address] [id number] [place] [address] 03 Nov, 2013 [facility] [place] [facility] [address] [id number] [place] [address] 15 Oct, 2013 [facility] [place] [facility] [address] [id number] [place] [address] 15 Oct, 2013 [facility] [place] [facility] [address] [id number] [place] [address] 14 Sep, 2013 [facility] [place] [facility] [address] [id number] [place] [address] 14 Sep, 2013 [facility] [place] [facility] [address] [id number] [place] [address] Sep, [facility] [place] [facility] [address] [id number] [place] [address] Sep, [facility] [place] [facility] [address] [id number] [place] [address] Sep, [facility] [place] [facility] [address] [id number] [place] [address] Sep, [facility] [place] [facility] [address] [id number] [place] [address] Aug, [facility] [place] [facility] [address] [id number] [place] [address] Aug, [facility] [place] [facility] [address] [id number] [place] [address] Aug, [facility] [place] [facility] [address] [id number] [place] [address] Aug, [facility] [place] [facility] [address] [id number] [place] [address] Aug, [facility] [place] [facility] [address] [id number] [place] [address] Aug, [facility] [place] [facility] [address] [id number] [place] [address] July, [facility] [place] [facility] [address] [id number] [place] [address] July, [facility] [place] [facility] [address] [id number] [place] [address] July, [facility] [place] [facility] [address] [id number] [place] [address] July, [facility] [place] [facility] [address] [id number] [place] [address] July, [facility] [place] [facility] [address] [id number] [place] [address] July, [facility] [place] [facility] [address] [id number] [place] [address] Jun, [facility] [place] [facility] [address] [id number] [place] [address] Jun, [facility] [place] [facility] [address] [id number] [place] [address] Jun, [facility] [place] [facility] [address] [id number] [place] [address] Jun, [facility] [place] [facility] [address] [id number] [place] [address] May, [facility] [place] [facility] [address] [id number] [place] [address] May, [facility] [place] [facility] [address] [id number] [place] [address] Apr, [facility] [place] [facility] [address] [id number] [place] [address] Apr, [facility] [place] [facility] [address] [id number] [place] [address] Apr, [facility] [place] [facility] [address] [id number] [place] [address] Apr, [facility] [place] [facility] [address] [id number] [place] [address] Mar, [facility] [place] [facility] [address] [id number] [place] [address] Mar, [facility] [place] [facility] [address] [id number] [place] [address] Mar, [facility] [place] [facility] [address] [id number] [address] Mar, [facility] [place] [facility] [address] [id number] [place] [address] Mar, [facility] [place] [facility] [address] [id number] [place] [address] Mar, [facility] [place] [facility] [address] [id number] [place] [address] Feb, [facility] [place] [facility] [address] [id number] [place] [address] Feb, [facility] [place] [facility] [address] [id number] [place] [address] Jan, [facility] [place] [facility] [address] [id number] [place] [address] Jan, [facility] [place] [facility] [address] [id number] [place] [address] Jan, [facility] [address] [id number] [place] [address] Jan, [facility] [place] [facility] [address] [id number] [place] [address] Nov, [facility] [address] [id number] [place] [address] Nov, [facility] [address] [id number] [place] [address] Oct, [facility] [place] [facility] [address] [id number] [place] [address] Oct, [facility] [place] [facility] [address] [id number] [place] [address] Sep, [facility] [place] [facility] [address] [id number] [place] [address] Sep, [facility] [place] [facility] [address] [address] [id number] [address] Sep, [facility] [place] [facility] [address] [id number] [place] [address] Aug, [facility] [place] [facility] [address] [id number] [place] [address] Aug, [facility] [place] [facility] [address] [id number] [place] [address] Aug, [facility] [place] [facility] [address] [id number] [place] [address] Aug, [facility] [address] [id number] [place] [address] July, [facility] [address] [id number] [place] [address] July, [facility] [address] [id number] [place] [address] July, [facility] [address] [id number] [place] [address] July, [facility] [address] [id number] [place] [address] Jun, [facility] [address] [id number] [place] [address] Jun, [facility] [address] [id number] [place] [address] Jun, [facility] [address] [id number] [place] [address] May, [facility] [address] [id number] [place] [address] May, [facility] [address] [id number] [place] [address] Apr, [facility] [address] [id number] [place] [address] Apr, [facility] [place] [facility] [address] [id number] [place] [address] Apr, [facility] [place] [facility] [address] [id number] [place] [address] Apr, [facility] [place] [facility] [address] [id number] [place] [address] Mar, [facility] [place] [facility] [address] [id number] [place] [address] Mar, [facility] [place] [facility] [address] [id number] [place] [address] Mar, [facility] [place] [facility] [address] [id number] [place] [address] Mar, [facility] [place] [facility] [address] [id number] [place] [address] Feb, [facility] [place] [facility] [address] [id number] [place] [address] 10 Feb, 2012 [facility] [place] [facility] [address] [id number] [place] [address] Feb, [facility] [place] [facility] [address] [id number] [place] [address] Feb, [facility] [place] [facility] [address] [id number] [place] [address] Feb, [facility] [place] [facility] [address] [id number] [place] [address] Feb, [facility] [place] [facility] [address] [id number] [place] [address] Feb, [facility] [place] [facility] [address] [id number] [place] [address] 04 Feb, 2012 [facility] [place] [facility] [address] [id number] [place] [address] Jan, [facility] [place] [facility] [address] [id number] [place] [address] 28 Jan, 2012 [facility] [place] [facility] [address] [id number] [place] [address] 15 Jan, 2012 [facility] [place] [facility] [address] [id number] [place] [address] 15 Jan, 2012 [facility] [place] [facility] [address] [id number] [place] [address] 14 Jan, 2012 [facility] [place] [facility] [address] [id number] [place] [address] Jan, [facility] [place] [facility] [address] [id number] [place] [address] Jan, [facility] [place] [facility] [address] [id number] [place] [address] Jan, [facility] [place] [facility] [address] [facility] [id number] [place] [address] Jan, [facility] [place] [facility] [address] [id number] [place] [address] Jan, [facility] [place] [facility] [address] [id number] [place] [address] Jan, [facility] [place] [facility] [address] [id number] [place] [address] Dec, [facility] [place] [facility] [address] [id number] [place] [address] Dec, [facility] [place] [facility] [address] [id number] [place] [address] Dec, [facility] [place] [facility] [address] [id number] [place] [address] 29 Dec, 2011 [facility] [place] [facility] [address] [facility] [id number] [place] [address] 29 Dec, 2011 [facility] [place] [facility] [address] [id number] [place] [address] 29 Dec, 2011 [facility] [place] [facility] [address] [id number] [place] [address] Dec, [facility] [place] [facility] [address] [id number] [place] [address] 19 Dec, 2011 [facility] [place] [facility] [address] [facility] [id number] [place] [address] 15 Dec, 2011 [facility] [place] [facility] [address] [facility] [id number] [place] [address] 15 Dec, 2011 [facility] [place] [facility] [address] [id number] [place] [address] Dec, [facility] [place] [facility] [address] [id number] [place] [address] Dec, [facility] [place] [facility] [address] [id number] [place] [address] Nov, [facility] [place] [facility] [address] [id number] [place] [address] Oct, [facility] [place] [facility] [address] [id number] [place] [address] Oct, [facility] [place] [facility] [address] [id number] [place] [address] Oct, [facility] [place] [facility] [address] [id number] [place] [address] Oct, [facility] [place] [facility] [address] [id number] [place] [address] Sep, [facility] [place] [facility] [address] [id number] [place] [address] Sep, [facility] [place] [facility] [address] [id number] [place] [address] Sep, [facility] [place] [facility] [address] [id number] [place] [address] Sep, [facility] [place] [facility] [address] [id number] [place] [address] Aug, [facility] [place] [facility] [address] [id number] [place] [address] Aug, [facility] [place] [facility] [address] [id number] [place] [address] Aug, [facility] [place] [facility] [address] [id number] [place] [address] Aug, [facility] [place] [facility] [address] [id number] [place] [address] Aug, [facility] [address] [facility] [id number] [place] [address] July, [facility] [address] [facility] [id number] [place] [address] July, [facility] [address] [facility] [id number] [place] [address] July, [facility] [address] [facility] [id number] [place] [address] Dec, IMMUNIZATIONS No Known Immunizations SOCIAL HISTORY Never Assessed REASON FOR VISIT Requests return call PLAN OF CARE VITAL SIGNS MEDICATIONS Unknown [...]
--- OUTSIDE RECORDS SUMMARY | 2018-10-24 12:19 | XMS REPORT ---
Author Author NELSON DIANN [facility] Address [address] [place] [address] Care Team Providers Care Territory Sales Representative Name Role Phone NELSONPRADEEP [place] Unavailable PROBLEMS Type Condition ICD9-CM Code [id number] Code Onset Dates Condition Status SNOMED Code Problem Fibromyalgia M79.7 Active 28532861 Problem Tinnitus of both ears H93.13 Active 7122609833624 Problem Irritable bowel syndrome without diarrhea K58.9 Active 25416310 Problem COPD exacerbation J44.1 Active 615884257 Problem Menopausal symptoms N95.1 Active 51986146 Problem On antiepileptic therapy Z79.899 Active 524911685 Problem Chronic obstructive pulmonary disease, unspecified COPD type J44.9 Active 29854792 Problem Irritable bowel syndrome with diarrhea K58.0 Active 367192138 Problem Vitamin D deficiency E55.9 Active 73533662 Problem MRSA (methicillin resistant staph aureus) culture positive Z22.322 Active 655366498 Problem Epilepsy G40.909 Active 45520536 Problem Generalized anxiety disorder F41.1 Active 429352817 Problem Interstitial cystitis N30.10 Active 163678556 Problem Esophageal reflux K21.9 Active 852952705 Problem Major depressive disorder F32.9 Active 264833469 Problem Lumbago M54.5 Active 080330245 ALLERGIES No Information ENCOUNTERS Encounter Location Date Diagnosis [facility] [address] [facility] [id number] [address] Dec, [facility] [address] [facility] [id number], [place] [address] Oct, [facility] [address] [id number] [id number] Oct, [facility] [address] [facility] [id number], [place] [address] Oct, [facility] [address] [place] [id number] [place] [address] Sep, [facility] [address] [address] Sep, [facility] [id number] [place] [address] Sep, [facility] [address] [id number] Aug, Dental examination Z01.20 [facility] [id number] [place] [address] Aug, Abscess of axilla, left L02.412 [place] [address] [address] Aug, Esophageal reflux K21.9 [place] [address] [address] Aug, [facility] [address] [address] Aug, Esophageal reflux K21.9 ; Fluid level behind tympanic membrane of right ear H65.91 ; Fibromyalgia M79.7 and Lumbago M54.5 [facility] [id number] [place] [address] Aug, Esophageal reflux K21.9 [facility] [id number] [place] [address] July, [facility] [id number] [place] [address] July, [facility] [address] [address] July, Chronic obstructive pulmonary disease, unspecified COPD type J44.9 [facility] [id number] [place] [address] July, [facility] [id number] [place] [address] July, [place] [address] [id number] [place] [address] July, Interstitial cystitis N30.10 ; Fibromyalgia M79.7 [...] Dysuria R30.0 and Generalized anxiety disorder F41.1 [place] [address] [address] Jun, [place] [address] [id number] [place] [address] Jun, Chronic obstructive pulmonary disease, unspecified COPD type J44.9 ; COPD exacerbation J44.1 and Sore throat J02.9 [place] [address] [id number] [place] [address] Jun, Fibromyalgia M79.7 [place] [address] [id number] [place] [address] Jun, Fibromyalgia M79.7 [place] [address] [id number] [place] [address] May, [place] [id number] [place] [address] May, [place] [id number] [place] [address] May, Fibromyalgia M79.7 [facility] [id number] [place] [address] Mar, [place] [id number] [place] [address] Mar, Epilepsy G40.909 ; Lumbago M54.5 ; Esophageal reflux K21.9 ; Fibromyalgia M79.7 ; Chronic obstructive pulmonary disease, unspecified COPD type J44.9 ; Vitamin D deficiency E55.9 ; Fluid level behind tympanic membrane of right ear H65.91 ; Irritable bowel syndrome with diarrhea K58.0 ; Hematochezia K92.1 and Generalized anxiety disorder F41.1 [facility] [id number] [place] [address] Mar, [facility] [address] [address] Mar, [facility] [address] [address] Mar, Vitamin D deficiency E55.9 [facility] [id number] [place] [address] Feb, [facility] [address] [address] Feb, [facility] [id number] [place] [address] Jan, Fibromyalgia M79.7 [facility] [address] [address] Jan, [facility] [id number] [place] [address] Jan, [facility] [id number] [place] [address] Jan, Vitamin D deficiency E55.9 [facility] [id number] [place] [address] Dec, [facility] [id number] [place] [address] Dec, [facility] [id number] [place] [address] Dec, Generalized anxiety disorder F41.1 [place] [id number] [place] [address] Dec, Dysuria R30.0 ; Acute bilateral low back pain without sciatica M54.5 and Encounter for immunization Z23 [place] [address] [id number] [place] [address] Oct, [place] [address] [address] Oct, Fibromyalgia M79.7 [place] [address] [address] Sep, Dysuria R30.0 and Acute bronchitis, unspecified organism J20.9 [place] [address] [place] [address] [id number] [place] [address] Sep, [place] [address] [address] Sep, Rectal prolapse K62.3 [place] [address] [address] [id number] [place] [address] Sep, Chronic obstructive pulmonary disease, unspecified COPD type J44.9 [place] [address] [place] [address] [id number] [place] [id number] Aug, [place] [address] [id number] Aug, [place] [address] [place] [id number] [place] [address] Aug, Light headedness R42 ; On antiepileptic therapy Z79.899 ; Vitamin D deficiency E55.9 ; Screening for lipid disorders Z13.220 ; Dysuria R30.0 and Hemorrhoids, unspecified hemorrhoid type K64.9 [place] [address] [id number] [place] [address] Aug, Internal prolapsed hemorrhoids K64.8 [place] [address] [id number] [place] [address] July, [place] [address] [address] [id number] [place] [address] May, [address] [address] May, Fever and chills R50.9 and Influenza B J10.[address] [address] Apr, [address] [address] Apr, Fibromyalgia M79.7 and Generalized anxiety disorder F41.[address] [address] Mar, Esophageal reflux K21.9 ; Generalized anxiety disorder F41.1 and Epilepsy G40.[address] [address] Mar, Epilepsy G40.909 ; Esophageal reflux K21.9 ; Fibromyalgia M79.7 ; Generalized anxiety disorder F41.1 ; Pain of left foot M79.672 ; Pain in right foot M79.671 ; Ear pain, right H92.01 ; Tinnitus of both ears H93.13 ; Chronic obstructive pulmonary disease, unspecified COPD type J44.9 ; Vitamin D deficiency E55.9 ; Screening for lipid disorders Z13.220 and On antiepileptic therapy Z79.899 [place] [id number] [place] [address] Feb, [place] [id number] [place] [address] Feb, [facility] [address] [address] Feb, Dysuria R30.0 and Plantar fasciitis of right foot M72.[address] [address] Feb, [facility] [id number] [place] [address] Feb, [facility] [id number] [place] [address] Jan, [facility] [id number] [place] [address] Jan, [facility] [id number] [place] [address] Dec, [facility] [id number] [place] [address] Dec, [facility] [id number] [place] [address] Dec, [facility] [address] [id number] [place] [address] Nov, [facility] [id number] [place] [address] Sep, [facility] [id number] [place] [address] Aug, Shortness of breath R06.02 and Acute suppurative otitis media of right ear without spontaneous rupture of tympanic membrane, recurrence not specified H66.001 [place] [address] [place] [id number] [place] [address] 14 Aug, 2015 Internal prolapsed hemorrhoids K64.8 [facility] [address] [id number] [place] [address] Jun, 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 [place] [address] [place] [address] [id number] [place] [address] May, Fibromyalgia M79.7 ; Interstitial cystitis N30.10 ; Intractable migraine without aura and without status migrainosus G43.019 ; Low vitamin D level E55.9 and Ringing in right ear H93.11 [facility] [address] [id number] [place] [address] May, [facility] [address] [address] May, Low vitamin D level E55.9 [facility] [address] [address] Apr, [facility] [address] [address] Mar, [facility] [address] [address] Mar, Acute suppurative otitis media of right ear without spontaneous rupture of tympanic membrane, recurrence not specified H66.001 ; Encounter for immunization Z23 ; Asthma with acute exacerbation, unspecified asthma severity J45.901 ; Memory problem R41.3 ; Acute pain of right knee M25.561 ; Chronic fatigue R53.82 and Excessive urinary volume R35.8 [facility] [address] [address] Feb, [facility] [address] [address] Feb, [facility] [address] [address] Jan, [facility] [address] [address] 17 Nov, 2014 Esophageal reflux 530.81 ; Anxiety 300.00 and Tingling in extremities 782.0 [facility] [address] [address] Oct, [facility] [address] [address] Oct, [facility] [address] [address] Oct, [facility] [address] [address] Oct, [facility] [address] [address] Oct, [facility] [id number] [place] [address] Sep, Other chronic allergic conjunctivitis 372.14 ; Irritable bowel syndrome 564.1 ; 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 ; Fibromyalgia 729.1 ; Extremity pain 729.5 and Neck pain 723.1 [facility] [address], [place] [address] Sep, [facility] [id number] [place] [address] Aug, [facility] [id number] [place] [address] Aug, [facility] [id number] [place] [address] July, Vomiting 787.03 [facility] [address] [place] [id number] [place] [id number] July, Dental examination V72.2 [facility] [address] [address] Jun, [facility] [address], [place] [address] Jun, [facility] [address], [place] [address] May, [facility] [address], [place] [address] May, [facility] [id number] [place] [address] May, [facility] [address], [place] [address] May, [facility] [id number] [place] [address] 05 May, 2014 [facility] [place] [facility] [address] [id number] [place] [address] May, [facility] [place] [facility] [address] [id number] [place] [address] May, [facility] [place] [facility] [address] [facility] [id number] [place] [address] May, [facility] [place] [facility] [address] [id number] [place] [address] May, [facility] [place] [facility] [address] [id number] [place] [address] Apr, 2014 [facility] [place] [facility] [address] [id number] [place] [address] Apr, 2014 [facility] [place] [facility] [address] [facility] [id number] [place] [address] Apr, 2014 [facility] [place] [facility] [address] [facility] [id number] [place] [address] Apr, [facility] [place] [facility] [address] [facility] [id number] [place] [address] Apr, [facility] [place] [facility] [address] [facility] [id number] [place] [address] Apr, [facility] [place] [facility] [address] [facility] [id number] [place] [address] Mar, [facility] [place] [facility] [address] [id number] [place] [address] Mar, [facility] [place] [facility] [address] [id number] [place] [address] Mar, [facility] [place] [facility] [address] [facility] [id number] [place] [address] Mar, [facility] [place] [facility] [address] [id number] [place] [address] Mar, [facility] [place] [facility] [address] [id number] [place] [address] Mar, [facility] [place] [facility] [address] [id number] [place] [address] Mar, [facility] [place] [facility] [address] [id number] [place] [address] Mar, [facility] [place] [facility] [address] [id number] [place] [address] Mar, [facility] [address] [id number] [place] [address] Mar, [facility] [place] [facility] [address] [id number] [place] [address] Mar, [facility] [address] [id number] [place] [address] Mar, [facility] [address] [id number] [place] [address] Mar, [facility] [place] [facility] [address] [id number] [place] [address] Mar, [facility] [place] [facility] [address] [id number] [place] [address] Mar, [facility] [place] [facility] [address] [id number] [place] [address] Mar, [facility] [place] [facility] [address] [id number], [place] [address] Mar, [facility] [place] [facility] [address] [id number] [place] [address] Mar, [facility] [place] [facility] [address] [id number] [place] [address] Mar, [facility] [place] [facility] [address] [id number] [place] [address] Feb, [facility] [place] [facility] [address] [id number] [address] 18 Feb, 2014 [facility] [place] [facility] [address] [id number] [place] [address] Feb, [facility] [place] [facility] [address] [id number] [place] [address] Feb, [facility] [place] [facility] [address] [id number] [place] [address] Jan, [facility] [place] [facility] [address] [id number] [place] [address] Jan, [facility] [place] [facility] [address] [id number] [place] [address] Jan, [facility] [place] [facility] [address] [id number] [place] [address] Jan, [facility] [place] [facility] [address] [id number] [place] [address] Jan, [facility] [place] [facility] [address] [id number] [place] [address] Jan, [facility] [place] [facility] [address] [id number] [place] [address] Jan, [facility] [place] [facility] [address] [id number] [place] [address] Jan, [facility] [place] [facility] [address] [id number] [place] [address] Dec, [facility] [place] [facility] [address] [id number] [place] [address] Dec, [facility] [place] [facility] [address] [id number] [place] [address] 17 Dec, 2013 [facility] [place] [facility] [address] [id number] [place] [address] Dec, [facility] [place] [facility] [address] [id number] [place] [address] Nov, [facility] [place] [facility] [address] [id number] [place] [address] 22 Nov, 2013 [facility] [place] [facility] [address] [id number] [place] [address] 08 Nov, 2013 [facility] [place] [facility] [address] [id number] [place] [address] 08 Nov, 2013 [facility] [place] [facility] [address] [id number] [place] [address] 05 Sep, 2013 [facility] [place] [facility] [address] [id number] [place] [address] 05 Nov, 2013 [facility] [place] [facility] [address] [id number] [place] [address] 04 Nov, 2013 [facility] [place] [facility] [address] [id number] [place] [address] 04 Nov, 2013 [facility] [place] [facility] [address] [id number] [place] [address] Nov, 2013 [facility] [place] [facility] [address] [id number] [place] [address] Nov, 2013 [facility] [place] [facility] [address] [id number] [place] [address] Oct, [facility] [place] [facility] [address] [id number] [place] [address] Oct, [facility] [place] [facility] [address] [id number] [place] [address] Sep, [facility] [place] [facility] [address] [id number] [place] [address] Sep, [facility] [place] [facility] [address] [id number] [place] [address] Sep, [facility] [place] [facility] [address] [id number] [place] [address] Sep, [facility] [place] [facility] [address] [id number] [place] [address] Sep, [facility] [place] [facility] [address] [id number] [place] [address] Sep, [facility] [place] [facility] [address] [id number] [place] [address] Aug, [facility] [place] [facility] [address] [id number] [place] [address] Aug, [facility] [place] [facility] [address] [id number] [place] [address] Aug, [facility] [place] [facility] [address] [id number] [place] [address] Aug, [facility] [place] [facility] [address] [id number] [place] [address] Aug, [facility] [place] [facility] [address] [id number] [place] [address] Aug, [facility] [place] [facility] [address] [id number] [place] [address] July, [facility] [place] [facility] [address] [id number] [place] [address] July, [facility] [place] [facility] [address] [id number] [place] [address] July, [facility] [place] [facility] [address] [id number] [place] [address] July, [facility] [place] [facility] [address] [id number] [place] [address] July, [facility] [place] [facility] [address] [id number] [place] [address] July, [facility] [place] [facility] [address] [id number] [place] [address] Jun, [facility] [place] [facility] [address] [id number] [place] [address] Jun, [facility] [place] [facility] [address] [id number] [place] [address] Jun, [facility] [place] [facility] [address] [id number] [place] [address] Jun, [facility] [place] [facility] [address] [id number] [place] [address] May, [facility] [place] [facility] [address] [id number] [place] [address] May, [facility] [place] [facility] [address] [id number] [place] [address] Apr, [facility] [place] [facility] [address] [id number] [place] [address] Apr, [facility] [place] [facility] [address] [id number] [place] [address] Apr, [facility] [place] [facility] [address] [id number] [place] [address] Apr, [facility] [place] [facility] [address] [id number] [place] [address] Mar, [facility] [place] [facility] [address] [id number] [place] [address] Mar, [facility] [place] [facility] [address] [id number] [place] [address] Mar, [facility] [place] [facility] [address] [id number] [place] [address] Mar, [facility] [place] [facility] [address] [id number] [address] Mar, [facility] [place] [facility] [address] [id number] [place] [address] Mar, [facility] [place] [facility] [address] [id number] [place] [address] Feb, [facility] [place] [facility] [address] [id number] [place] [address] Feb, [facility] [place] [facility] [address] [id number] [place] [address] Jan, [facility] [place] [facility] [address] [id number] [place] [address] Jan, [facility] [place] [facility] [address] [id number] [place] [address] Jan, [facility] [place] [facility] [address] [id number] [place] [address] Jan, [facility] [address] [id number] [place] [address] Nov, [facility] [place] [facility] [address] [id number] [place] [address] Nov, [facility] [address] [id number] [place] [address] Oct, [facility] [place] [facility] [address] [id number] [place] [address] Oct, [facility] [place] [facility] [address] [id number] [place] [address] Sep, [facility] [place] [facility] [address] [id number] [place] [address] Sep, [facility] [place] [facility] [address] [id number] [place] [address] Sep, [facility] [place] [facility] [address] [id number], [place] [address] Aug, [facility] [place] [facility] [address] [id number] [place] [address] Aug, [facility] [place] [facility] [address] [id number] [place] [address] Aug, [facility] [place] [facility] [address] [id number] [place] [address] Aug, [facility] [place] [facility] [address] [id number], [place] [address] July, [facility] [address] [id number] [place] [address] July, [facility] [address] [id number] [place] [address] July, [facility] [address] [id number] [place] [address] July, [facility] [address] [id number] [place] [address] Jun, [facility] [address] [id number] [place] [address] Jun, [facility] [address] [id number] [place] [address] Jun, [facility] [address] [id number] [place] [address] May, [facility] [address] [id number] [place] [address] May, [facility] [address] [id number] [place] [address] Apr, [facility] [address] [id number], [place] [address] Apr, [facility] [address] [id number], [place] [address] Apr, [facility] [place] [facility] [address] [id number], [place] [address] Apr, [facility] [place] [facility] [address] [id number] [place] [address] Mar, [facility] [place] [facility] [address] [id number] [place] [address] Mar, [facility] [place] [facility] [address] [id number], [place] [address] Mar, [facility] [place] [facility] [address] [id number] [place] [address] 02 Mar, 2012 [facility] [place] [facility] [address] [id number] [place] [address] 11 Feb, 2012 [facility] [place] [facility] [address] [id number] [place] [address] Feb, [facility] [place] [facility] [address] [id number] [place] [address] Feb, [facility] [place] [facility] [address] [id number] [place] [address] Feb, [facility] [place] [facility] [address] [id number] [place] [address] Feb, [facility] [place] [facility] [address] [id number] [place] [address] Feb, [facility] [place] [facility] [address] [id number] [place] [address] Feb, [facility] [place] [facility] [address] [id number] [place] [address] Feb, [facility] [place] [facility] [address] [id number] [place] [address] 28 Jan, 2012 [facility] [place] [facility] [address] [id number] [place] [address] 28 Jan, 2012 [facility] [place] [facility] [address] [id number] [place] [address] 15 Jan, 2012 [facility] [place] [facility] [address] [id number] [place] [address] 15 Jan, 2012 [facility] [place] [facility] [address] [id number] [place] [address] 14 Jan, 2012 [facility] [place] [facility] [address] [id number] [place] [address] 13 Jan, 2012 [facility] [place] [facility] [address] [id number] [place] [address] Jan, [facility] [place] [facility] [address] [id number] [place] [address] Jan, [facility] [place] [facility] [address] [id number], [place] [address] Jan, [facility] [place] [facility] [address] [facility] [id number] [place] [address] Jan, [facility] [place] [facility] [address] [id number], [place] [address] Jan, [facility] [place] [facility] [address] [id number] [place] [address] Dec, [facility] [place] [facility] [address] [id number], [place] [address] Dec, [facility] [place] [facility] [address] [id number], [place] [address] Dec, [facility] [place] [facility] [address] [id number], [place] [address] Dec, [facility] [place] [facility] [address] [id number], [place] [address] Dec, [facility] [place] [facility] [address] [facility] [id number], [place] [address] Dec, [facility] [place] [facility] [address] [id number], [place] [address] Dec, [facility] [place] [facility] [address] [id number], [place] [address] Dec, [facility] [place] [facility] [address] [id number], [place] [address] 15 Dec, 2011 [facility] [place] [facility] [address] [facility] [id number], [place] [address] 15 Dec, 2011 [facility] [place] [facility] [address] [facility] [id number], [place] [address] Dec, [facility] [place] [facility] [address] [id number] [place] [address] Dec, [facility] [place] [facility] [address] [id number] [place] [address] Nov, [facility] [place] [facility] [address] [id number] [place] [address] Oct, [facility] [place] [facility] [address] [id number] [place] [address] Oct, [facility] [place] [facility] [address] [id number] [place] [address] Oct, [facility] [place] [facility] [address] [id number] [place] [address] Oct, [facility] [place] [facility] [address] [id number] [place] [address] Sep, [facility] [place] [facility] [address] [id number] [place] [address] Sep, [facility] [place] [facility] [address] [id number] [place] [address] Sep, [facility] [place] [facility] [address] [id number] [place] [address] Sep, [facility] [place] [facility] [address] [id number] [place] [address] Aug, [facility] [place] [facility] [address] [id number] [place] [address] Aug, [facility] [place] [facility] [address] [id number] [place] [address] Aug, [facility] [place] [facility] [address] [id number] [place] [address] Aug, [facility] [place] [facility] [address] [id number] [place] [address] Aug, [facility] [place] [facility] [address] [id number] [place] [address] July, [facility] [address] [facility] [id number] [place] [address] July, [facility] [address] [facility] [id number] [place] [address] July, [facility] [address] [facility] [id number] [place] [address] Dec, IMMUNIZATIONS No Known Immunizations SOCIAL HISTORY [...]
--- OUTSIDE RECORDS SUMMARY | 2018-10-24 12:20 | XMS REPORT ---
Author Author [facility] Address [address] [place] [address] Care Team Providers Care Certified Legal Secretary Specialist Name Role Phone DORIS DAMONY Unavailable PROBLEMS Type Condition ICD9-CM Code IAT43-MD Code Onset Dates Condition Status SNOMED Code Problem Fibromyalgia M79.7 Active 53503245 Problem Tinnitus of both ears H93.13 Active 8223105937874 Problem Irritable bowel syndrome without diarrhea K58.9 Active 14812308 Problem COPD exacerbation J44.1 Active 446186925 Problem Menopausal symptoms N95.1 Active 60618760 Problem On antiepileptic therapy Z79.899 Active 947403136 Problem Chronic obstructive pulmonary disease, unspecified COPD type J44.9 Active 65740505 Problem Irritable bowel syndrome with diarrhea K58.0 Active 384824531 Problem Vitamin D deficiency E55.9 Active 11577877 Problem MRSA (methicillin resistant staph aureus) culture positive Z22.322 Active 771363239 Problem Epilepsy G40.909 Active 79066670 Problem Generalized anxiety disorder F41.1 Active 361545921 Problem Interstitial cystitis N30.10 Active 427681392 Problem Esophageal reflux K21.9 Active 803896023 Problem Major depressive disorder F32.9 Active 739808911 Problem Lumbago M54.5 Active 622827967 ALLERGIES No Information ENCOUNTERS Encounter Location Date Diagnosis [facility] [address] [facility] [id number] [address] Dec, [facility] [address] [facility] [id number], [place] [address] Nov, [facility] [address] [facility] [id number], [place] [address] Oct, [facility] [address] [id number] [id number] Oct, [facility] [id number] [place] [address] Oct, [facility] [id number] [place] [address] Sep, [facility] [id number] [place] [address] Sep, [facility] [id number] [place] [address] Sep, [facility] [id number] [place] [id number] Aug, Dental examination Z01.20 [facility] [address] [address] Aug, Abscess of axilla, left L02.412 [facility] [address] [address] Aug, Esophageal reflux K21.9 [facility] [id number] [place] [address] Aug, [facility] [address] [address] Aug, Esophageal reflux K21.9 ; Fluid level behind tympanic membrane of right ear H65.91 ; Fibromyalgia M79.7 and Lumbago M54.5 [facility] [id number] [place] [address] Aug, Esophageal reflux K21.9 [facility] [id number] [place] [address] July, [facility] [id number] [place] [address] July, [facility] [id number] [place] [address] July, Chronic obstructive pulmonary disease, unspecified COPD type J44.9 [facility] [id number] [place] [address] July, [facility] [id number] [place] [address] July, [place] [id number] [place] [address] July, Interstitial cystitis N30.10 ; Fibromyalgia M79.7 [...] Dysuria R30.0 and Generalized anxiety disorder F41.1 [place] [id number] [place] [address] Jun, [place] [address] [address] Jun, Chronic obstructive pulmonary disease, unspecified COPD type J44.9 ; COPD exacerbation J44.1 and Sore throat J02.9 [place] [id number] [place] [address] Jun, Fibromyalgia M79.7 [place] [id number] [place] [address] Jun, Fibromyalgia M79.7 [place] [id number] [place] [address] May, [facility] [id number] [place] [address] May, [place] [id number] [place] [address] May, Fibromyalgia M79.7 [facility] [id number] [place] [address] Mar, [place] [address] [id number], [place] [address] Mar, Epilepsy G40.909 ; Lumbago M54.5 ; Esophageal reflux K21.9 ; Fibromyalgia M79.7 ; Chronic obstructive pulmonary disease, unspecified COPD type J44.9 ; Vitamin D deficiency E55.9 ; Fluid level behind tympanic membrane of right ear H65.91 ; Irritable bowel syndrome with diarrhea K58.0 ; Hematochezia K92.1 and Generalized anxiety disorder F41.1 [facility] [id number] [place] [address] Mar, [facility] [id number] [place] [address] Mar, [facility] [id number] [place] [address] Mar, Vitamin D deficiency E55.9 [facility] [id number] [place] [address] Feb, [facility] [id number] [place] [address] Feb, [facility] [id number] [place] [address] Jan, Fibromyalgia M79.7 [facility] [address] [id number], [place] [address] Jan, [facility] [id number] [place] [address] Jan, [facility] [id number] [place] [address] Jan, Vitamin D deficiency E55.9 [facility] [id number] [place] [address] Dec, [facility] [address] [id number], [place] [address] Dec, [facility] [id number] [place] [address] Dec, Generalized anxiety disorder F41.1 [place] [address] [address] Dec, Dysuria R30.0 ; Acute bilateral low back pain without sciatica M54.5 and Encounter for immunization Z23 [place] [address] [address] Oct, [place] [address] [address] Oct, Fibromyalgia M79.7 [place] [address] [address] Sep, Dysuria R30.0 and Acute bronchitis, unspecified organism J20.9 [place] [address] [address] Sep, [place] [address] [address] Sep, Rectal prolapse K62.3 [place] [address] [address] Sep, Chronic obstructive pulmonary disease, unspecified COPD type J44.9 [place] [id number] [place] [id number] Aug, [place] [address] [id number] Aug, [place] [id number] [place] [address] Aug, Light headedness R42 ; On antiepileptic therapy Z79.899 ; Vitamin D deficiency E55.9 ; Screening for lipid disorders Z13.220 ; Dysuria R30.0 and Hemorrhoids, unspecified hemorrhoid type K64.9 [place] [id number] [place] [address] Aug, Internal prolapsed hemorrhoids K64.8 [place] [id number] [place] [address] July, [facility] [id number] [place] [address] May, [place] [id number] [place] [address] May, Fever and chills R50.9 and Influenza B J10.1 [place] [id number] [place] [address] Apr, [place] [address] [address] Apr, Fibromyalgia M79.7 and Generalized anxiety disorder F41.[address] [address] Mar, Esophageal reflux K21.9 ; Generalized anxiety disorder F41.1 and Epilepsy G40.909 [facility] [id number] [place] [address] Mar, Epilepsy G40.909 ; Esophageal reflux K21.9 ; Fibromyalgia M79.7 ; Generalized anxiety disorder F41.1 ; Pain of left foot M79.672 ; Pain in right foot M79.671 ; Ear pain, right H92.01 ; Tinnitus of both ears H93.13 ; Chronic obstructive pulmonary disease, unspecified COPD type J44.9 ; Vitamin D deficiency E55.9 ; Screening for lipid disorders Z13.220 and On antiepileptic therapy Z79.899 [facility] [id number] [place] [address] Feb, [place] [id number] [place] [address] Feb, [facility] [id number] [place] [address] Feb, Dysuria R30.0 and Plantar fasciitis of right foot M72.2 [facility] [address] [address] Feb, [facility] [id number] [place] [address] Feb, [facility] [id number] [place] [address] Jan, [facility] [id number] [place] [address] Jan, [facility] [id number] [place] [address] Dec, [facility] [id number] [place] [address] Dec, [facility] [id number] [place] [address] Dec, [facility] [id number] [place] [address] Nov, [facility] [id number] [place] [address] Sep, [facility] [id number] [place] [address] Aug, Shortness of breath R06.02 and Acute suppurative otitis media of right ear without spontaneous rupture of tympanic membrane, recurrence not specified H66.001 [facility] [id number] [place] [address] Aug, Internal prolapsed hemorrhoids K64.8 [facility] [id number] [place] [address] Jun, 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 [facility] [address] [place] [address] May, Fibromyalgia M79.7 ; Interstitial cystitis N30.10 ; Intractable migraine without aura and without status migrainosus G43.019 ; Low vitamin D level E55.9 and Ringing in right ear H93.11 [facility] [address] [address] May, [facility] [address] [address] May, Low vitamin D level E55.9 [place] [address] [address] Apr, [facility] [address] [address] Mar, [place] [address] [address] Mar, Acute suppurative otitis media of right ear without spontaneous rupture of tympanic membrane, recurrence not specified H66.001 ; Encounter for immunization Z23 ; Asthma with acute exacerbation, unspecified asthma severity J45.901 ; Memory problem R41.3 ; Acute pain of right knee M25.561 ; Chronic fatigue R53.82 and Excessive urinary volume R35.8 [place] [address] [address] Feb, [place] [address] [address] Feb, [place] [address] [address] Jan, [place] [address] [address] Nov, Esophageal reflux 530.81 ; Anxiety 300.00 and Tingling in extremities 782.0 [place] [address] [address] Oct, [place] [address] [address] Oct, [place] [address] [address] Oct, [facility] [address], [place] [address] Oct, [facility] [id number] [place] [address] Oct, [facility] [id number] [place] [address] Sep, Other chronic allergic conjunctivitis 372.14 ; Irritable bowel syndrome 564.1 ; 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 ; Fibromyalgia 729.1 ; Extremity pain 729.5 and Neck pain 723.1 [facility] [id number] [place] [address] Sep, [facility] [id number] [place] [address] Aug, [facility] [id number] [place] [address] Aug, [facility] [id number] [place] [address] July, Vomiting 787.03 [facility] [id number] [place] [id number] July, Dental examination V72.2 [facility] [address], [place] [address] Jun, [facility] [id number] [place] [address] Jun, [facility] [address], [place] [address] May, [facility] [id number] [place] [address] May, [facility] [address], [place] [address] 16 May, 2014 [facility] [id number] [place] [address] May, [facility] [place] [facility] [address] [id number] [place] [address] May, [facility] [place] [facility] [address] [id number] [place] [address] May, [facility] [place] [facility] [address] [facility] [id number] [place] [address] May, [facility] [place] [facility] [address] [id number] [place] [address] May, [facility] [place] [facility] [address] [id number] [place] [address] May, [facility] [place] [facility] [address] [facility] [id number] [place] [address] Apr, 2014 [facility] [place] [facility] [address] [facility] [id number] [place] [address] Apr, 2014 [facility] [place] [facility] [address] [facility] [id number] [place] [address] Apr, 2014 [facility] [place] [facility] [address] [facility] [id number] [place] [address] Apr, [facility] [place] [facility] [address] [facility] [id number] [place] [address] Apr, [facility] [place] [facility] [address] [facility] [id number] [place] [address] Apr, [facility] [place] [facility] [address] [facility] [id number], [place] [address] Mar, [facility] [place] [facility] [address] [id number] [place] [address] Mar, [facility] [place] [facility] [address] [facility] [id number] [place] [address] Mar, [facility] [place] [facility] [address] [facility] [id number] [place] [address] Mar, [facility] [place] [facility] [address] [id number] [place] [address] Mar, [facility] [place] [facility] [address] [id number] [place] [address] Mar, [facility] [place] [facility] [address] [id number] [place] [address] Mar, [facility] [place] [facility] [address] [id number] [place] [address] Mar, [facility] [address] [id number] [place] [address] Mar, [facility] [place] [facility] [address] [id number] [place] [address] Mar, [facility] [place] [facility] [address] [id number] [place] [address] Mar, [facility] [address] [id number] [place] [address] Mar, [facility] [place] [facility] [address] [id number] [place] [address] Mar, [facility] [place] [facility] [address] [id number] [place] [address] Mar, [facility] [place] [facility] [address] [id number] [place] [address] Mar, [facility] [place] [facility] [address] [id number], [place] [address] Mar, [facility] [place] [facility] [address] [id number] [place] [address] Mar, [facility] [place] [facility] [address] [id number] [place] [address] Mar, [facility] [place] [facility] [address] [id number] [place] [address] Mar, [facility] [place] [facility] [address] [id number], [place] [address] 18 Feb, 2014 [facility] [place] [facility] [address] [id number] [place] [address] 18 Feb, 2014 [facility] [place] [facility] [address] [id number] [place] [address] Feb, [facility] [place] [facility] [address] [id number] [place] [address] Feb, [facility] [place] [facility] [address] [id number] [place] [address] Jan, [facility] [place] [facility] [address] [id number] [place] [address] 20 Jan, 2014 [facility] [place] [facility] [address] [id number] [place] [address] 14 Jan, 2014 [facility] [place] [facility] [address] [id number] [place] [address] Jan, [facility] [place] [facility] [address] [id number] [place] [address] 14 Jan, 2014 [facility] [place] [facility] [address] [id number] [place] [address] 14 Jan, 2014 [facility] [place] [facility] [address] [id number] [place] [address] Jan, [facility] [place] [facility] [address] [id number], [place] [address] Jan, [facility] [place] [facility] [address] [id number], [place] [address] Dec, [facility] [place] [facility] [address] [id number] [place] [address] Dec, [facility] [place] [facility] [address] [id number] [place] [address] 17 Dec, 2013 [facility] [place] [facility] [address] [id number] [place] [address] 17 Dec, 2013 [facility] [place] [facility] [address] [id number] [place] [address] 22 Nov, 2013 [facility] [place] [facility] [address] [id number] [place] [address] 22 Nov, 2013 [facility] [place] [facility] [address] [id number] [place] [address] 08 Nov, 2013 [facility] [place] [facility] [address] [id number] [place] [address] 08 Nov, 2013 [facility] [place] [facility] [address] [id number] [place] [address] 05 Sep, 2013 [facility] [place] [facility] [address] [id number] [place] [address] 05 Nov, 2013 [facility] [place] [facility] [address] [id number] [place] [address] 04 Nov, 2013 [facility] [place] [facility] [address] [id number] [place] [address] 04 Nov, 2013 [facility] [place] [facility] [address] [id number] [place] [address] 03 Nov, 2013 [facility] [place] [facility] [address] [id number] [place] [address] 03 Nov, 2013 [facility] [place] [facility] [address] [id number] [place] [address] 15 Oct, 2013 [facility] [place] [facility] [address] [id number] [place] [address] 15 Oct, 2013 [facility] [place] [facility] [address] [id number] [place] [address] 14 Sep, 2013 [facility] [place] [facility] [address] [id number] [place] [address] 14 Sep, 2013 [facility] [place] [facility] [address] [id number] [place] [address] Sep, [facility] [place] [facility] [address] [id number] [place] [address] Sep, [facility] [place] [facility] [address] [id number] [place] [address] Sep, [facility] [place] [facility] [address] [id number] [place] [address] Sep, [facility] [place] [facility] [address] [id number] [place] [address] Aug, [facility] [place] [facility] [address] [id number] [place] [address] Aug, [facility] [place] [facility] [address] [id number] [place] [address] Aug, [facility] [place] [facility] [address] [id number] [place] [address] Aug, [facility] [place] [facility] [address] [id number] [place] [address] Aug, [facility] [place] [facility] [address] [id number] [place] [address] Aug, [facility] [place] [facility] [address] [id number] [place] [address] July, [facility] [place] [facility] [address] [id number] [place] [address] July, [facility] [place] [facility] [address] [id number] [place] [address] July, [facility] [place] [facility] [address] [id number] [place] [address] July, [facility] [place] [facility] [address] [id number] [place] [address] July, [facility] [place] [facility] [address] [id number] [place] [address] July, [facility] [place] [facility] [address] [id number] [place] [address] Jun, [facility] [place] [facility] [address] [id number] [place] [address] Jun, [facility] [place] [facility] [address] [id number] [place] [address] Jun, [facility] [place] [facility] [address] [id number] [place] [address] Jun, [facility] [place] [facility] [address] [id number] [place] [address] May, [facility] [place] [facility] [address] [id number] [place] [address] May, [facility] [place] [facility] [address] [id number] [place] [address] Apr, [facility] [place] [facility] [address] [id number] [place] [address] Apr, [facility] [place] [facility] [address] [id number] [place] [address] Apr, [facility] [place] [facility] [address] [id number] [place] [address] Apr, [facility] [place] [facility] [address] [id number] [place] [address] Mar, [facility] [place] [facility] [address] [id number] [place] [address] Mar, [facility] [place] [facility] [address] [id number] [place] [address] Mar, [facility] [place] [facility] [address] [id number], [place] [address] Mar, [facility] [place] [facility] [address] [id number] [place] [address] Mar, [facility] [place] [facility] [address] [id number] [place] [address] Mar, [facility] [place] [facility] [address] [id number] [place] [address] Feb, [facility] [place] [facility] [address] [id number] [place] [address] Feb, [facility] [place] [facility] [address] [id number] [place] [address] Jan, [facility] [place] [facility] [address] [id number] [place] [address] Jan, [facility] [place] [facility] [address] [id number] [place] [address] Jan, [facility] [address] [id number] [place] [address] Jan, [facility] [place] [facility] [address] [id number] [place] [address] Nov, [facility] [address] [id number] [place] [address] Nov, [facility] [address] [id number] [place] [address] Oct, [facility] [place] [facility] [address] [id number] [place] [address] Oct, [facility] [place] [facility] [address] [id number] [place] [address] Sep, [facility] [place] [facility] [address] [id number] [place] [address] Sep, [facility] [place] [facility] [address] [id number], [place] [address] Sep, [facility] [place] [facility] [address] [id number] [place] [address] Aug, [facility] [place] [facility] [address] [id number] [place] [address] Aug, [facility] [place] [facility] [address] [id number] [place] [address] Aug, [facility] [place] [facility] [address] [id number], [place] [address] Aug, [facility] [address] [id number] [place] [address] July, [facility] [address] [id number] [place] [address] July, [facility] [address] [id number] [place] [address] July, [facility] [address] [id number] [place] [address] July, [facility] [address] [id number] [place] [address] Jun, [facility] [address] [id number] [place] [address] Jun, [facility] [address] [id number] [place] [address] Jun, [facility] [address] [id number] [place] [address] May, [facility] [address] [id number] [place] [address] May, [facility] [address] [id number] [place] [address] Apr, [facility] [address] [id number], [place] [address] Apr, [facility] [place] [facility] [address] [id number] [place] [address] Apr, [facility] [place] [facility] [address] [id number] [place] [address] Apr, [facility] [place] [facility] [address] [id number] [place] [address] Mar, [facility] [place] [facility] [address] [id number] [place] [address] Mar, [facility] [place] [facility] [address] [id number] [place] [address] Mar, [facility] [place] [facility] [address] [id number] [place] [address] Mar, [facility] [place] [facility] [address] [id number] [place] [address] Feb, [facility] [place] [facility] [address] [id number] [place] [address] 10 Feb, 2012 [facility] [place] [facility] [address] [id number] [place] [address] Feb, [facility] [place] [facility] [address] [id number] [place] [address] Feb, [facility] [place] [facility] [address] [id number] [place] [address] Feb, [facility] [place] [facility] [address] [id number] [place] [address] Feb, [facility] [place] [facility] [address] [id number] [place] [address] Feb, [facility] [place] [facility] [address] [id number] [place] [address] 04 Feb, 2012 [facility] [place] [facility] [address] [id number] [place] [address] Jan, [facility] [place] [facility] [address] [id number] [place] [address] 28 Jan, 2012 [facility] [place] [facility] [address] [id number] [place] [address] 15 Jan, 2012 [facility] [place] [facility] [address] [id number] [place] [address] 15 Jan, 2012 [facility] [place] [facility] [address] [id number] [place] [address] 14 Jan, 2012 [facility] [place] [facility] [address] [id number] [place] [address] Jan, [facility] [place] [facility] [address] [id number] [place] [address] Jan, [facility] [place] [facility] [address] [id number], [place] [address] Jan, [facility] [place] [facility] [address] [facility] [id number] [place] [address] Jan, [facility] [place] [facility] [address] [id number], [place] [address] Jan, [facility] [place] [facility] [address] [id number] [place] [address] Jan, [facility] [place] [facility] [address] [id number], [place] [address] Dec, [facility] [place] [facility] [address] [id number], [place] [address] Dec, [facility] [place] [facility] [address] [id number], [place] [address] Dec, [facility] [place] [facility] [address] [id number], [place] [address] 29 Dec, 2011 [facility] [place] [facility] [address] [facility] [id number], [place] [address] 29 Dec, 2011 [facility] [place] [facility] [address] [id number], [place] [address] 29 Dec, 2011 [facility] [place] [facility] [address] [id number], [place] [address] Dec, [facility] [place] [facility] [address] [id number], [place] [address] 19 Dec, 2011 [facility] [place] [facility] [address] [facility] [id number], [place] [address] 15 Dec, 2011 [facility] [place] [facility] [address] [facility] [id number], [place] [address] 15 Dec, 2011 [facility] [place] [facility] [address] [id number] [place] [address] Dec, [facility] [place] [facility] [address] [id number] [place] [address] Dec, [facility] [place] [facility] [address] [id number] [place] [address] Nov, [facility] [place] [facility] [address] [id number] [place] [address] Oct, [facility] [place] [facility] [address] [id number] [place] [address] Oct, [facility] [place] [facility] [address] [id number] [place] [address] Oct, [facility] [place] [facility] [address] [id number] [place] [address] Oct, [facility] [place] [facility] [address] [id number] [place] [address] Sep, [facility] [place] [facility] [address] [id number] [place] [address] Sep, [facility] [place] [facility] [address] [id number] [place] [address] Sep, [facility] [place] [facility] [address] [id number] [place] [address] Sep, [facility] [place] [facility] [address] [id number] [place] [address] Aug, [facility] [place] [facility] [address] [id number] [place] [address] Aug, [facility] [place] [facility] [address] [id number] [place] [address] Aug, [facility] [place] [facility] [address] [id number] [place] [address] Aug, [facility] [place] [facility] [address] [id number] [place] [address] Aug, [facility] [address] [facility] [id number] [place] [address] July, [facility] [address] [facility] [id number], [place] [address] July, [facility] [address] [facility] [id number], [place] [address] July, [facility] [address] [facility] [id number], [place] [address] Dec, IMMUNIZATIONS No Known Immunizations SOCIAL HISTORY [...]
--- OUTSIDE RECORDS SUMMARY | 2018-10-24 12:21 | XMS REPORT ---
Author Author SHAINA SIMONS [facility] Address [address] [place] [address] Phone Unavailable Care Team Providers Care Model And Pattern Supervisor Name Role Phone SHAINA SIMONS Unavailable Unavailable PROBLEMS Type Condition ICD9-CM Code PQP65-CK Code Onset Dates Condition Status SNOMED Code Problem Fibromyalgia M79.7 Active 55400980 Problem Tinnitus of both ears H93.13 Active 5094406491501 Problem Irritable bowel syndrome without diarrhea K58.9 Active 53594774 Problem COPD exacerbation J44.1 Active 215391870 Problem Menopausal symptoms N95.1 Active 52999737 Problem On antiepileptic therapy Z79.899 Active 077249253 Problem Chronic obstructive pulmonary disease, unspecified COPD type J44.9 Active 03766663 Problem Irritable bowel syndrome with diarrhea K58.0 Active 932321069 Problem Vitamin D deficiency E55.9 Active 93001010 Problem MRSA (methicillin resistant staph aureus) culture positive Z22.322 Active 267727712 Problem Epilepsy G40.909 Active 08022831 Problem Generalized anxiety disorder F41.1 Active 193960189 Problem Interstitial cystitis N30.10 Active 756395495 Problem Esophageal reflux K21.9 Active 190940795 Problem Major depressive disorder F32.9 Active 901275270 Problem Lumbago M54.5 Active 102585227 ALLERGIES Substance Reaction Event Type Date Status Sulfamethoxazole-Trimethoprim Unknown Drug Allergy Aug, Active Prednisone Unknown Drug Allergy Aug, Active Nitrofurantoin Unknown Drug Allergy Aug, Active Cephalexin Unknown Drug Allergy Aug, Active Amitiza Unknown Drug Allergy Aug, Active Tramadol Unknown Drug Allergy Aug, Active Artane unknown Drug Allergy Aug, Active Benzodiazepines Failed UDS Non Drug Allergy Aug, Active Hydrocodone Failed UDS Non Drug Allergy Aug, Active ENCOUNTERS Encounter Location Date Diagnosis [facility] [address] [facility] [id number] [place] [address] Dec, [facility] [id number] [place] [address] Nov, [facility] [id number] [place] [address] Oct, [facility] [id number] [place] [id number] Oct, [facility] [address] [address] Oct, [facility] [address] [address] Sep, [facility] [address] [address] Sep, [facility] [address] [address] Sep, [facility] [address] [id number] Aug, Dental examination Z01.20 [facility] [address] [address] Aug, Abscess of axilla, left L02.412 [place] [id number] [place] [address] Aug, Esophageal reflux K21.9 [place] [address] [address] Aug, [facility] [address] [address] Aug, Esophageal reflux K21.9 ; Fluid level behind tympanic membrane of right ear H65.91 ; Fibromyalgia M79.7 and Lumbago M54.5 [place] [id number] [place] [address] Aug, Esophageal reflux K21.9 [facility] [id number] [place] [address] July, [facility] [id number] [place] [address] July, [facility] [id number] [place] [address] July, Chronic obstructive pulmonary disease, unspecified COPD type J44.9 [facility] [id number] [place] [address] July, [facility] [address] [address] July, [facility] [id number] [place] [address] July, Interstitial cystitis N30.10 ; Fibromyalgia M79.7 [...] and Generalized anxiety disorder F41.1 [place] [id number] [place] [address] Jun, [place] [id number] [place] [address] Jun, Chronic obstructive pulmonary disease, unspecified COPD type J44.9 ; COPD exacerbation J44.1 and Sore throat J02.9 [facility] [id number] [place] [address] Jun, Fibromyalgia M79.7 [facility] [id number] [place] [address] Jun, Fibromyalgia M79.7 [facility] [id number] [place] [address] May, [facility] [address] [place] [address] May, [facility] [id number] [place] [address] May, Fibromyalgia M79.7 [facility] [id number] [place] [address] Mar, [facility] [address] [address] Mar, Epilepsy G40.909 ; Lumbago M54.5 ; Esophageal reflux K21.9 ; Fibromyalgia M79.7 ; Chronic obstructive pulmonary disease, unspecified COPD type J44.9 ; Vitamin D deficiency E55.9 ; Fluid level behind tympanic membrane of right ear H65.91 ; Irritable bowel syndrome with diarrhea K58.0 ; Hematochezia K92.1 and Generalized anxiety disorder F41.1 [place] [id number] [place] [address] Mar, [facility] [id number] [place] [address] Mar, [facility] [id number] [place] [address] Mar, Vitamin D deficiency E55.9 [facility] [id number] [place] [address] Feb, [facility] [id number] [place] [address] Feb, [facility] [id number] [place] [address] Jan, Fibromyalgia M79.7 [facility] [id number] [place] [address] Jan, [facility] [id number] [place] [address] Jan, [facility] [id number] [place] [address] Jan, Vitamin D deficiency E55.9 [facility] [id number] [place] [address] Dec, [facility] [address] [address] Dec, [facility] [address] [address] Dec, Generalized anxiety disorder F41.1 [place] [address] [address] Dec, Dysuria R30.0 ; Acute bilateral low back pain without sciatica M54.5 and Encounter for immunization Z23 [place] [address] [address] Oct, [place] [address] [address] Oct, Fibromyalgia M79.7 [place] [address] [address] Sep, Dysuria R30.0 and Acute bronchitis, unspecified organism J20.9 [place] [id number] [place] [address] Sep, [place] [id number] [place] [address] Sep, Rectal prolapse K62.3 [place] [address] [address] Sep, Chronic obstructive pulmonary disease, unspecified COPD type J44.9 [facility] [address] [id number] Aug, [facility] [address] [id number] Aug, [facility] [address] [address] Aug, Light headedness R42 ; On antiepileptic therapy Z79.899 ; Vitamin D deficiency E55.9 ; Screening for lipid disorders Z13.220 ; Dysuria R30.0 and Hemorrhoids, unspecified hemorrhoid type K64.[address] [address] Aug, Internal prolapsed hemorrhoids K64.[address] [address] July, [address] [address] May, [address] [address] May, Fever and chills R50.9 and Influenza B J10.[address] [address] Apr, [address] [address] Apr, Fibromyalgia M79.7 and Generalized anxiety disorder F41.[address] [address] Mar, Esophageal reflux K21.9 ; Generalized anxiety disorder F41.1 and Epilepsy G40.[address] [address] Mar, Epilepsy G40.909 ; Esophageal reflux K21.9 ; Fibromyalgia M79.7 ; Generalized anxiety disorder F41.1 ; Pain of left foot M79.672 ; Pain in right foot M79.671 ; Ear pain, right H92.01 ; Tinnitus of both ears H93.13 ; Chronic obstructive pulmonary disease, unspecified COPD type J44.9 ; Vitamin D deficiency E55.9 ; Screening for lipid disorders Z13.220 and On antiepileptic therapy Z79.[address] [address] Feb, [facility] [address] [place] [address] Feb, [facility] [id number] [place] [address] Feb, Dysuria R30.0 and Plantar fasciitis of right foot M72.2 [facility] [id number] [place] [address] Feb, [facility] [id number] [place] [address] Feb, [facility] [id number] [place] [address] Jan, [facility] [id number] [place] [address] Jan, [facility] [id number] [place] [address] Dec, [facility] [id number] [place] [address] Dec, [facility] [id number] [place] [address] Dec, [facility] [id number] [place] [address] Nov, [facility] [id number] [place] [address] Sep, [facility] [address] [place] [address] Aug, 2016 Shortness of breath R06.02 and Acute suppurative otitis media of right ear without spontaneous rupture of tympanic membrane, recurrence not specified H66.001 [facility] [address] [place] [address] 14 Aug, 2016 Internal prolapsed hemorrhoids K64.8 [facility] [id number] [place] [address] Jun, 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 [place] [address] [address] May, Fibromyalgia M79.7 ; Interstitial cystitis N30.10 ; Intractable migraine without aura and without status migrainosus G43.019 ; Low vitamin D level E55.9 and Ringing in right ear H93.11 [place] [id number] [place] [address] May, [place] [id number] [place] [address] May, Low vitamin D level E55.9 [place] [id number] [place] [address] Apr, [place] [address] [address] Mar, [place] [id number] [place] [address] Mar, Acute suppurative otitis media of right ear without spontaneous rupture of tympanic membrane, recurrence not specified H66.001 ; Encounter for immunization Z23 ; Asthma with acute exacerbation, unspecified asthma severity J45.901 ; Memory problem R41.3 ; Acute pain of right knee M25.561 ; Chronic fatigue R53.82 and Excessive urinary volume R35.8 [place] [id number] [place] [address] Feb, [place] [id number] [place] [address] Feb, [place] [address] [address] Jan, [place] [id number] [place] [address] Nov, Esophageal reflux 530.81 ; Anxiety 300.00 and Tingling in extremities 782.0 [facility] [address] [address] Oct, [facility] [id number] [place] [address] Oct, [facility] [id number] [place] [address] Oct, [facility] [id number] [place] [address] Oct, [facility] [id number] [place] [address] Oct, [facility] [id number] [place] [address] Sep, Other chronic allergic conjunctivitis 372.14 ; Irritable bowel syndrome 564.1 ; 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 ; Fibromyalgia 729.1 ; Extremity pain 729.5 and Neck pain 723.1 [facility] [address] [address] Sep, [facility] [id number] [place] [address] Aug, [facility] [address] [address] Aug, [facility] [address] [place] [address] July, Vomiting 787.03 [facility] [id number] [id number] July, Dental examination V72.2 [facility] [address] [place] [address] Jun, [facility] [address] [address] Jun, [facility] [address] [place] [address] May, [facility] [place] [facility] [address] [id number] [place] [address] May, [facility] [place] [facility] [address] [id number] [place] [address] May, [facility] [place] [facility] [address] [facility] [id number] [place] [address] May, [facility] [place] [facility] [address] [id number] [place] [address] May, [facility] [place] [facility] [address] [id number] [place] [address] May, [facility] [place] [facility] [address] [facility] [id number] [place] [address] May, [facility] [place] [facility] [address] [facility] [id number] [place] [address] May, [facility] [place] [facility] [address] [facility] [id number] [address] May, [facility] [place] [facility] [address] [facility] [id number] [place] [address] Apr, 2014 [facility] [place] [facility] [address] [facility] [id number] [place] [address] Apr, [facility] [place] [facility] [address] [facility] [id number] [address] Apr, 2014 [facility] [place] [facility] [address] [facility] [id number], [place] [address] Apr, 2014 [facility] [place] [facility] [address] [facility] [id number] [place] [address] Apr, [facility] [place] [facility] [address] [facility] [id number] [place] [address] Apr, [facility] [place] [facility] [address] [facility] [id number] [place] [address] Mar, [facility] [place] [facility] [address] [id number] [place] [address] Mar, [facility] [place] [facility] [address] [id number] [place] [address] Mar, [facility] [place] [facility] [address] [id number] [place] [address] Mar, [facility] [place] [facility] [address] [id number] [place] [address] Mar, [facility] [place] [facility] [address] [id number] [place] [address] Mar, [facility] [place] [facility] [address] [id number] [place] [address] Mar, [facility] [place] [facility] [address] [id number] [place] [address] Mar, [facility] [place] [facility] [address] [id number] [place] [address] Mar, [facility] [place] [facility] [address] [id number] [place] [address] Mar, [facility] [place] [facility] [address] [id number] [place] [address] Mar, [facility] [place] [facility] [address] [id number] [place] [address] Mar, [facility] [place] [facility] [address] [id number] [place] [address] Mar, [facility] [place] [facility] [address] [id number] [place] [address] Mar, [facility] [place] [facility] [address] [id number] [place] [address] Mar, [facility] [place] [facility] [address] [id number] [place] [address] Mar, [facility] [place] [facility] [address] [id number] [place] [address] Mar, [facility] [place] [facility] [address] [id number] [place] [address] Mar, [facility] [place] [facility] [address] [id number] [place] [address] Mar, [facility] [place] [facility] [address] [id number] [place] [address] Feb, [facility] [place] [facility] [address] [id number] [place] [address] Feb, [facility] [place] [facility] [address] [id number] [place] [address] Feb, [facility] [place] [facility] [address] [id number] [place] [address] Feb, [facility] [place] [facility] [address] [id number] [place] [address] Jan, [facility] [place] [facility] [address] [id number] [place] [address] Jan, [facility] [place] [facility] [address] [id number] [place] [address] Jan, [facility] [place] [facility] [address] [id number] [place] [address] Jan, [facility] [place] [facility] [address] [id number] [place] [address] Jan, [facility] [place] [facility] [address] [id number], [place] [address] 14 Jan, 2014 [facility] [place] [facility] [address] [id number] [place] [address] Jan, [facility] [place] [facility] [address] [id number] [place] [address] 07 Jan, 2014 [facility] [place] [facility] [address] [id number] [place] [address] Dec, [facility] [place] [facility] [address] [id number] [place] [address] Dec, 2013 [facility] [place] [facility] [address] [id number] [place] [address] 17 Dec, 2013 [facility] [place] [facility] [address] [id number] [place] [address] 17 Dec, 2013 [facility] [place] [facility] [address] [id number] [place] [address] 22 Nov, 2013 [facility] [place] [facility] [address] [id number] [place] [address] 22 Nov, 2013 [facility] [place] [facility] [address] [id number] [place] [address] 08 Nov, 2013 [facility] [place] [facility] [address] [id number] [place] [address] 08 Nov, 2013 [facility] [place] [facility] [address] [id number] [place] [address] 05 Nov, 2013 [facility] [place] [facility] [address] [id number] [place] [address] 05 Nov, 2013 [facility] [place] [facility] [address] [id number] [place] [address] 04 Nov, 2013 [facility] [place] [facility] [address] [id number] [place] [address] 04 Nov, 2013 [facility] [place] [facility] [address] [id number] [place] [address] 03 Nov, 2013 [facility] [place] [facility] [address] [id number] [place] [address] 03 Nov, 2013 [facility] [place] [facility] [address] [id number] [place] [address] 15 Oct, 2013 [facility] [place] [facility] [address] [id number] [place] [address] 15 Oct, 2013 [facility] [place] [facility] [address] [id number] [place] [address] 14 Sep, 2013 [facility] [place] [facility] [address] [id number] [place] [address] Sep, [facility] [place] [facility] [address] [id number] [place] [address] Sep, [facility] [place] [facility] [address] [id number] [place] [address] Sep, [facility] [place] [facility] [address] [id number] [place] [address] Sep, [facility] [place] [facility] [address] [id number] [place] [address] Sep, [facility] [place] [facility] [address] [id number] [place] [address] Aug, [facility] [place] [facility] [address] [id number] [place] [address] Aug, [facility] [place] [facility] [address] [id number] [place] [address] Aug, [facility] [place] [facility] [address] [id number] [place] [address] Aug, [facility] [place] [facility] [address] [id number] [place] [address] Aug, [facility] [place] [facility] [address] [id number] [place] [address] Aug, [facility] [place] [facility] [address] [id number] [place] [address] July, [facility] [place] [facility] [address] [id number] [place] [address] July, [facility] [place] [facility] [address] [id number] [place] [address] July, [facility] [place] [facility] [address] [id number] [place] [address] July, [facility] [place] [facility] [address] [id number] [place] [address] July, [facility] [place] [facility] [address] [id number] [place] [address] July, [facility] [place] [facility] [address] [id number] [place] [address] Jun, [facility] [place] [facility] [address] [id number] [place] [address] Jun, [facility] [place] [facility] [address] [id number] [place] [address] Jun, [facility] [place] [facility] [address] [id number] [place] [address] Jun, [facility] [place] [facility] [address] [id number] [place] [address] May, [facility] [place] [facility] [address] [id number] [place] [address] May, [facility] [place] [facility] [address] [id number] [place] [address] Apr, [facility] [place] [facility] [address] [id number] [place] [address] Apr, [facility] [place] [facility] [address] [id number] [place] [address] Apr, [facility] [place] [facility] [address] [id number] [place] [address] Apr, [facility] [place] [facility] [address] [id number] [address] Mar, [facility] [place] [facility] [address] [id number] [place] [address] Mar, [facility] [place] [facility] [address] [id number] [place] [address] Mar, [facility] [place] [facility] [address] [facility] [id number] [place] [address] Mar, [facility] [place] [facility] [address] [id number] [place] [address] Mar, [facility] [address] [id number] [place] [address] Mar, [facility] [place] [facility] [address] [id number] [place] [address] Feb, [facility] [place] [facility] [address] [id number] [place] [address] Feb, [facility] [place] [facility] [address] [id number] [place] [address] Jan, [facility] [place] [facility] [address] [id number] [place] [address] Jan, [facility] [place] [facility] [address] [id number] [place] [address] Jan, [facility] [place] [facility] [address] [id number] [place] [address] Jan, [facility] [place] [facility] [address] [id number] [place] [address] Nov, [facility] [place] [facility] [address] [id number] [place] [address] Nov, [facility] [place] [facility] [address] [id number] [place] [address] Oct, [facility] [place] [facility] [address] [id number] [place] [address] Oct, [facility] [place] [facility] [address] [id number] [place] [address] Sep, [facility] [facility] [address] [id number] [place] [address] Sep, [facility] [place] [facility] [address] [id number] [place] [address] Sep, [facility] [place] [facility] [address] [id number] [place] [address] Aug, [facility] [address] [id number] [place] [address] Aug, [facility] [place] [facility] [address] [id number] [place] [address] Aug, [facility] [place] [facility] [address] [id number] [place] [address] Aug, [facility] [place] [facility] [address] [id number] [place] [address] July, [facility] [place] [facility] [address] [id number] [place] [address] July, [facility] [place] [facility] [address] [id number] [place] [address] July, [facility] [place] [facility] [address] [id number] [place] [address] July, [facility] [place] [facility] [address] [id number] [place] [address] Jun, [facility] [place] [facility] [address] [id number] [place] [address] Jun, [facility] [place] [facility] [address] [id number] [place] [address] Jun, [facility] [place] [facility] [address] [id number], [place] [address] May, [facility] [place] [facility] [address] [id number], [place] [address] May, [facility] [place] [facility] [address] [id number] [place] [address] Apr, [facility] [place] [facility] [address] [id number], [place] [address] Apr, [facility] [place] [facility] [address] [id number] [place] [address] Apr, [facility] [place] [facility] [address] [id number] [place] [address] Apr, [facility] [address] [id number] [place] [address] Mar, [facility] [address] [id number] [place] [address] Mar, [facility] [address] [id number] [place] [address] Mar, [facility] [address] [id number] [place] [address] Mar, [facility] [address] [id number] [place] [address] Feb, [facility] [address] [id number] [place] [address] Feb, [facility] [address] [id number] [place] [address] Feb, [facility] [address] [id number] [place] [address] Feb, [facility] [address] [id number] [place] [address] Feb, [facility] [address] [id number] [place] [address] Feb, [facility] [address] [id number] [place] [address] Feb, [facility] [address] [id number] [place] [address] Feb, [facility] [facility] [address] [id number] [place] [address] Jan, [facility] [address] [id number] [place] [address] Jan, [facility] [address] [id number] [place] [address] 15 Jan, 2012 [facility] [facility] [address] [id number] [place] [address] 15 Jan, 2012 [facility] [place] [facility] [address] [id number] [place] [address] 14 Jan, 2012 [facility] [place] [facility] [address] [id number] [place] [address] 13 Jan, 2012 [facility] [place] [facility] [address] [id number] [place] [address] 13 Jan, 2012 [facility] [facility] [address] [id number] [place] [address] 12 Jan, 2012 [facility] [facility] [address] [id number] [place] [address] Jan, [facility] [place] [facility] [address] [facility] [id number] [place] [address] Jan, [facility] [facility] [address] [id number], [place] [address] Jan, [facility] [address] [facility] [id number], [place] [address] Dec, [facility] [address] [facility] [id number], [place] [address] Dec, [facility] [address] [facility] [id number], [place] [address] Dec, [facility] [address] [id number], [place] [address] 29 Dec, 2011 [facility] [address] [facility] [id number], [place] [address] Dec, [facility] [address] [id number], [place] [address] 29 Dec, 2011 [facility] [facility] [address] [facility] [id number], [place] [address] 19 Dec, 2011 [facility] [address] [id number], [place] [address] Dec, [facility] [facility] [address] [id number] [place] [address] Dec, [facility] [place] [facility] [address] [id number] [place] [address] Dec, [facility] [place] [facility] [address] [facility] [id number] [place] [address] Dec, [facility] [place] [facility] [address] [id number] [place] [address] Dec, [facility] [facility] [address] [id number] [place] [address] Nov, [facility] [facility] [address] [id number] [place] [address] Oct, [facility] [facility] [address] [facility] [id number] [place] [address] Oct, [facility] [facility] [address] [id number] [place] [address] Oct, [facility] [facility] [address] [facility] [id number] [place] [address] Oct, [facility] [address] [facility] [id number] [place] [address] Sep, [facility] [address] [facility] [id number] [place] [address] Sep, [facility] [facility] [address] [facility] [id number] [place] [address] Sep, [facility] [facility] [address] [id number] [place] [address] Sep, [facility] [address] [facility] [id number] [place] [address] Aug, [facility] [facility] [address] [facility] [id number] [place] [address] Aug, [facility] [facility] [address] [facility] [id number], [place] [address] Aug, [facility] [address] [id number], [place] [address] Aug, [facility] [id number], [place] [address] Aug, [facility] [id number], [place] [address] July, [facility] [id number], [place] [address] July, [facility] [id number], [place] [address] July, [facility] [address] [id number], [place] [address] Dec, IMMUNIZATIONS No Known Immunizations SOCIAL HISTORY Never Assessed REASON FOR VISIT Establish Care PLAN OF CARE Activity Details Follow Up jaylin Reason:srp VITAL SIGNS Blood pressure systolic 118 mmHg 2017-09-07 Blood pressure diastolic 81 mmHg 2017-09-07 MEDICATIONS Medication Instructions Dosage Frequency Start Date End Date Duration Status BusPIRone HCl 10 MG Orally 4 times a day 1 tablet 6h 90 days Active Symbicort 160-4.5 MCG/ACT Inhalation Twice a day 2 puffs 12h July, Active Tegretol 200 MG Orally 2 times a day 1 tablet 12h 90 days Active Bentyl 10 mg Orally Four times a day 1 tablet as needed 6h Mar, Sep, Active Tizanidine HCl 4 MG Orally Three times a day 1 tablet as needed 8h July, Jan, 30 days Active Lyrica 150 MG Orally Twice a day 1 capsule 12h Sep, 90 days Active Ibuprofen 800 MG Orally Three times a day 1 tablet with food or milk as needed 8h 90 days Active Ranitidine HCl 150 MG Orally 2 times a day 1 tablet 12h 90 days Active Protonix 40 MG Orally Once a day 1 tablet 24h 15 Feb, 2015 90 days Active ProAir HFA 108 (90 Base) MCG/ACT Inhalation every 6 hrs 2 puffs as needed 6h July, Active Estradiol 1 MG 1 tablet by Oral route 1 time per day Mar, Not-Taking Pristiq 50 MG Orally Once a day 1 tablet 24h 90 days Active Albuterol Sulfate (2.5 MG/3ML) 0.083% Inhalation every 4-6 hours as needed 3 ml Active Loratadine 10 mg Orally Once a day as needed 1 tablet 90 days Active Doxycycline Hyclate 100 mg Orally twice a day 1 capsule 12h Aug, Sep, 10 day(s) Active Sucralfate 1 GM Orally 2 times a day TAKE 1 TABLET BY MOUTH ON AN EMPTY STOMACH 12h Active RESULTS No Results PROCEDURES Procedure Date Ordered Result Body Site INTRAORL-PERIAPICAL 1 FILM [id number] September 07, 2017 INTRAORL-PERIAPICAL EA ADD FILM September 07, 2017 BITEWINGS - FOUR FILMS September 07, 2017 INTRAORL-PERIAPICAL EA ADD FILM September 07, 2017 PANORAMIC FILM SEE ALSO CODE [id number] September 07, 2017 INSTRUCTIONS MEDICATIONS ADMINISTERED No Known Medications MEDICAL (GENERAL) HISTORY Type Description Date Medical History epilepsy Medical History interstitial cystitis Surgical History hysterectomy Surgical History breast biopsy w/ Dr. Hickey 2009 Surgical History cholecystectomy 2012 Surgical History tonsillectomy Surgical History tubal ligation Surgical History urethral stretching 2008 Surgical History section
--- OUTSIDE RECORDS SUMMARY | 2018-10-24 12:22 | XMS REPORT ---
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 Name Role Phone DONNA COLLIER Unavailable PROBLEMS Type Condition ICD9-CM Code ZOM21-IQ Code Onset Dates Condition Status SNOMED Code Problem Fibromyalgia M79.7 Active 81308090 Problem Tinnitus of both ears H93.13 Active 1463573468472 Problem Irritable bowel syndrome without diarrhea K58.9 Active 79566861 Problem COPD exacerbation J44.1 Active 470136530 Problem Menopausal symptoms N95.1 Active 26953428 Problem On antiepileptic therapy Z79.899 Active 815918228 Problem Chronic obstructive pulmonary disease, unspecified COPD type J44.9 Active 78042699 Problem Irritable bowel syndrome with diarrhea K58.0 Active 389425260 Problem Vitamin D deficiency E55.9 Active 11216816 Problem MRSA (methicillin resistant staph aureus) culture positive Z22.322 Active 052262406 Problem Epilepsy G40.909 Active 74250178 Problem Generalized anxiety disorder F41.1 Active 524719681 Problem Interstitial cystitis N30.10 Active 471160327 Problem Esophageal reflux K21.9 Active 415524793 Problem Major depressive disorder F32.9 Active 350525224 Problem Lumbago M54.5 Active 540514218 ALLERGIES Substance Reaction Event Type Date Status [...] Aug, Active ENCOUNTERS Encounter Location Date Diagnosis [facility] [address] [facility] [id number] [address] Dec, [facility] [id number] [place] [address] Nov, [facility] [id number] [place] [address] Oct, [facility] [id number] [place] [id number] Oct, [facility] [address] [address] Oct, [facility] [id number] [place] [address] Sep, [facility] [id number] [place] [address] Sep, [facility] [address] [address] Sep, [facility] [id number] [place] [id number] Aug, Dental examination Z01.20 [place] [id number] [place] [address] Aug, Abscess of axilla, left L02.412 [place] [id number] [place] [address] Aug, Esophageal reflux K21.9 [place] [address] [address] Aug, [facility] [id number] [place] [address] Aug, Esophageal reflux K21.9 ; Fluid level behind tympanic membrane of right ear H65.91 ; Fibromyalgia M79.7 and Lumbago M54.5 [facility] [id number] [place] [address] Aug, Esophageal reflux K21.9 [facility] [address] [address] July, [facility] [id number] [place] [address] July, [facility] [id number] [place] [address] July, Chronic obstructive pulmonary disease, unspecified COPD type J44.9 [facility] [id number] [place] [address] July, [facility] [id number] [place] [address] July, [place] [id number] [place] [address] July, Interstitial cystitis N30.10 ; Fibromyalgia M79.7 [...] Dysuria R30.0 and Generalized anxiety disorder F41.1 [facility] [id number] [place] [address] Jun, [facility] [id number] [place] [address] Jun, Chronic obstructive pulmonary disease, unspecified COPD type J44.9 ; COPD exacerbation J44.1 and Sore throat J02.9 [facility] [id number] [place] [address] Jun, Fibromyalgia M79.7 [facility] [id number] [place] [address] Jun, Fibromyalgia M79.7 [facility] [id number] [place] [address] May, [facility] [id number] [place] [address] May, [facility] [id number] [place] [address] May, Fibromyalgia M79.7 [facility] [id number] [place] [address] Mar, [facility] [id number] [place] [address] Mar, Epilepsy G40.909 ; Lumbago M54.5 ; Esophageal reflux K21.9 ; Fibromyalgia M79.7 ; Chronic obstructive pulmonary disease, unspecified COPD type J44.9 ; Vitamin D deficiency E55.9 ; Fluid level behind tympanic membrane of right ear H65.91 ; Irritable bowel syndrome with diarrhea K58.0 ; Hematochezia K92.1 and Generalized anxiety disorder F41.1 [facility] [id number] [place] [address] Mar, [facility] [id number] [place] [address] Mar, [facility] [id number] [place] [address] Mar, Vitamin D deficiency E55.9 [facility] [id number] [place] [address] Feb, [facility] [id number] [place] [address] Feb, [facility] [id number] [place] [address] Jan, Fibromyalgia M79.7 [facility] [id number] [place] [address] Jan, [facility] [id number] [place] [address] Jan, [facility] [id number] [place] [address] Jan, Vitamin D deficiency E55.9 [facility] [address] [address] Dec, [facility] [id number] [place] [address] Dec, [facility] [address] [address] Dec, Generalized anxiety disorder F41.1 [facility] [address] [address] Dec, Dysuria R30.0 ; Acute bilateral low back pain without sciatica M54.5 and Encounter for immunization Z23 [facility] [address] [address] Oct, [facility] [address] [address] Oct, Fibromyalgia M79.7 [facility] [address] [address] Sep, Dysuria R30.0 and Acute bronchitis, unspecified organism J20.9 [facility] [id number] [place] [address] Sep, [facility] [id number] [place] [address] Sep, Rectal prolapse K62.3 [facility] [id number] [place] [address] Sep, Chronic obstructive pulmonary disease, unspecified COPD type J44.9 [facility] [address] [id number] Aug, [facility] [address] [id number] Aug, [facility] [address] [address] Aug, Light headedness R42 ; On antiepileptic therapy Z79.899 ; Vitamin D deficiency E55.9 ; Screening for lipid disorders Z13.220 ; Dysuria R30.0 and Hemorrhoids, unspecified hemorrhoid type K64.[address] [address] Aug, Internal prolapsed hemorrhoids K64.8 [place] [address] [address] July, [address] [address] May, [place] [address] [address] May, Fever and chills R50.9 and Influenza B J10.[address] [address] Apr, [address] [address] Apr, Fibromyalgia M79.7 and Generalized anxiety disorder F41.[address] [address] Mar, Esophageal reflux K21.9 ; Generalized anxiety disorder F41.1 and Epilepsy G40.[address] [address] Mar, Epilepsy G40.909 ; Esophageal reflux K21.9 ; Fibromyalgia M79.7 ; Generalized anxiety disorder F41.1 ; Pain of left foot M79.672 ; Pain in right foot M79.671 ; Ear pain, right H92.01 ; Tinnitus of both ears H93.13 ; Chronic obstructive pulmonary disease, unspecified COPD type J44.9 ; Vitamin D deficiency E55.9 ; Screening for lipid disorders Z13.220 and On antiepileptic therapy Z79.899 [address] [place] [address] Feb, [facility] [id number] [place] [address] Feb, [facility] [id number] [place] [address] Feb, Dysuria R30.0 and Plantar fasciitis of right foot M72.2 [facility] [id number] [place] [address] Feb, [facility] [id number] [place] [address] Feb, [facility] [id number] [place] [address] Jan, [facility] [id number] [place] [address] Jan, [facility] [id number] [place] [address] Dec, [facility] [id number] [place] [address] Dec, [facility] [id number] [place] [address] Dec, [facility] [address] [place] [address] Nov, [facility] [id number] [place] [address] Sep, 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 [place] [id number] [place] [address] May, Fibromyalgia M79.7 ; Interstitial cystitis N30.10 ; Intractable migraine without aura and without status migrainosus G43.019 ; Low vitamin D level E55.9 and Ringing in right ear H93.11 [place] [id number] [place] [address] May, [place] [address] [address] May, Low vitamin D level E55.9 [place] [address] [address] Apr, [place] [address] [address] Mar, [place] [id number] [place] [address] Mar, Acute suppurative otitis media of right ear without spontaneous rupture of tympanic membrane, recurrence not specified H66.001 ; Encounter for immunization Z23 ; Asthma with acute exacerbation, unspecified asthma severity J45.901 ; Memory problem R41.3 ; Acute pain of right knee M25.561 ; Chronic fatigue R53.82 and Excessive urinary volume R35.8 [place] [id number] [place] [address] Feb, [address] [address] Feb, [place] [id number] [place] [address] Jan, [place] [id number] [place] [address] Nov, Esophageal reflux 530.81 ; Anxiety 300.00 and Tingling in extremities 782.0 [facility] [id number] [place] [address] Oct, [facility] [id number] [place] [address] Oct, [facility] [id number] [place] [address] Oct, [facility] [id number] [place] [address] Oct, [facility] [id number] [place] [address] Oct, [facility] [id number] [place] [address] Sep, Other chronic allergic conjunctivitis 372.14 ; Irritable bowel syndrome 564.1 ; 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 ; Fibromyalgia 729.1 ; Extremity pain 729.5 and Neck pain 723.1 [facility] [id number] [place] [address] Sep, [facility] [id number] [place] [address] Aug, [facility] [id number] [place] [address] Aug, [facility] [id number] [place] [address] July, Vomiting 787.03 [facility] [address] [place] [id number] July, Dental examination V72.2 [facility] [id number] [place] [address] Jun, [facility] [id number] [place] [address] Jun, [facility] [place] [facility] [address] [facility] [id number] [place] [address] May, 2014 [facility] [place] [facility] [address] [id number] [place] [address] May, [facility] [place] [facility] [address] [id number] [place] [address] May, 2014 [facility] [place] [facility] [address] [id number] [place] [address] May, 2014 [facility] [place] [facility] [address] [id number] [place] [address] May, [facility] [place] [facility] [address] [id number] [place] [address] May, [facility] [place] [facility] [address] [facility] [id number] [place] [address] May, [facility] [place] [facility] [address] [id number] [place] [address] May, 2014 [facility] [place] [facility] [address] [id number] [place] [address] May, [facility] [place] [facility] [address] [facility] [id number] [place] [address] Apr, 2014 [facility] [place] [facility] [address] [facility] [id number] [place] [address] Apr, 2014 [facility] [place] [facility] [address] [facility] [id number] [place] [address] Apr, 2014 [facility] [place] [facility] [address] [id number] [place] [address] Apr, 2014 [facility] [place] [facility] [address] [id number] [place] [address] Apr, 2014 [facility] [place] [facility] [address] [facility] [id number] [place] [address] 05 Apr, 2014 [facility] [place] [facility] [address] [facility] [id number] [place] [address] Mar, [facility] [place] [facility] [address] [id number] [place] [address] Mar, [facility] [place] [facility] [address] [id number] [place] [address] Mar, [facility] [place] [facility] [address] [id number] [place] [address] Mar, [facility] [place] [facility] [address] [id number] [place] [address] Mar, [facility] [place] [facility] [address] [id number] [place] [address] Mar, [facility] [place] [facility] [address] [id number] [place] [address] Mar, [facility] [place] [facility] [address] [id number] [place] [address] Mar, [facility] [place] [facility] [address] [id number] [place] [address] Mar, [facility] [place] [facility] [address] [id number] [place] [address] Mar, [facility] [place] [facility] [address] [id number] [place] [address] Mar, [facility] [place] [facility] [address] [id number] [place] [address] Mar, [facility] [place] [facility] [address] [id number] [place] [address] Mar, [facility] [place] [facility] [address] [id number] [place] [address] Mar, [facility] [place] [facility] [address] [id number] [place] [address] Mar, [facility] [place] [facility] [address] [id number] [place] [address] Mar, [facility] [place] [facility] [address] [id number] [place] [address] 15 Mar, 2014 [facility] [address] [id number] [place] [address] Mar, [facility] [place] [facility] [address] [id number] [place] [address] Mar, [facility] [address] [id number] [place] [address] Feb, [facility] [place] [facility] [address] [id number] [place] [address] Feb, [facility] [place] [facility] [address] [id number] [place] [address] Feb, [facility] [place] [facility] [address] [id number] [place] [address] Feb, [facility] [place] [facility] [address] [id number] [place] [address] Jan, [facility] [place] [facility] [address] [id number] [place] [address] Jan, [facility] [place] [facility] [address] [id number] [place] [address] Jan, [facility] [place] [facility] [address] [id number] [place] [address] 14 Jan, 2014 [facility] [place] [facility] [address] [id number] [place] [address] Jan, [facility] [place] [facility] [address] [id number] [place] [address] Jan, [facility] [place] [facility] [address] [id number] [place] [address] Jan, [facility] [place] [facility] [address] [id number] [place] [address] 07 Jan, 2014 [facility] [place] [facility] [address] [id number] [place] [address] Dec, [facility] [place] [facility] [address] [id number] [place] [address] 20 Dec, 2013 [facility] [place] [facility] [address] [id number] [place] [address] Dec, [facility] [place] [facility] [address] [id number] [place] [address] Dec, [facility] [place] [facility] [address] [id number] [place] [address] 22 Nov, 2013 [facility] [place] [facility] [address] [id number] [place] [address] 22 Nov, 2013 [facility] [place] [facility] [address] [id number] [place] [address] 08 Nov, 2013 [facility] [place] [facility] [address] [id number] [place] [address] 08 Nov, 2013 [facility] [place] [facility] [address] [id number] [place] [address] 05 Sep, 2013 [facility] [place] [facility] [address] [id number] [place] [address] 05 Sep, 2013 [facility] [place] [facility] [address] [id number] [place] [address] 04 Nov, 2013 [facility] [place] [facility] [address] [id number] [place] [address] 04 Nov, 2013 [facility] [place] [facility] [address] [id number] [place] [address] 03 Nov, 2013 [facility] [place] [facility] [address] [id number] [place] [address] 03 Nov, 2013 [facility] [place] [facility] [address] [id number] [place] [address] 15 Oct, 2013 [facility] [place] [facility] [address] [id number] [place] [address] 15 Oct, 2013 [facility] [place] [facility] [address] [id number] [place] [address] Sep, [facility] [place] [facility] [address] [id number] [place] [address] Sep, [facility] [place] [facility] [address] [id number] [place] [address] Sep, [facility] [place] [facility] [address] [id number] [place] [address] Sep, [facility] [place] [facility] [address] [id number] [place] [address] Sep, [facility] [place] [facility] [address] [id number] [place] [address] Sep, [facility] [place] [facility] [address] [id number] [place] [address] Aug, [facility] [place] [facility] [address] [id number] [place] [address] Aug, [facility] [place] [facility] [address] [id number] [place] [address] Aug, [facility] [place] [facility] [address] [id number] [place] [address] Aug, [facility] [place] [facility] [address] [id number] [place] [address] Aug, [facility] [place] [facility] [address] [id number] [place] [address] Aug, [facility] [place] [facility] [address] [id number] [place] [address] July, [facility] [place] [facility] [address] [id number] [place] [address] July, [facility] [place] [facility] [address] [id number] [place] [address] July, [facility] [place] [facility] [address] [id number] [place] [address] July, [facility] [place] [facility] [address] [id number] [place] [address] July, [facility] [place] [facility] [address] [id number] [place] [address] July, [facility] [place] [facility] [address] [id number] [place] [address] Jun, [facility] [place] [facility] [address] [id number] [place] [address] Jun, [facility] [place] [facility] [address] [id number] [place] [address] Jun, [facility] [place] [facility] [address] [id number] [place] [address] Jun, [facility] [place] [facility] [address] [id number] [place] [address] May, [facility] [place] [facility] [address] [id number] [place] [address] May, [facility] [place] [facility] [address] [id number] [place] [address] Apr, [facility] [place] [facility] [address] [id number] [place] [address] Apr, [facility] [place] [facility] [address] [id number] [place] [address] Apr, [facility] [place] [facility] [address] [id number] [place] [address] Apr, [facility] [place] [facility] [address] [id number] [place] [address] Mar, [facility] [place] [facility] [address] [id number] [place] [address] Mar, [facility] [place] [facility] [address] [id number] [place] [address] Mar, [facility] [place] [facility] [address] [id number] [place] [address] Mar, [facility] [place] [facility] [address] [id number] [place] [address] Mar, [facility] [place] [facility] [address] [id number] [place] [address] Mar, [facility] [place] [facility] [address] [id number] [place] [address] Feb, [facility] [place] [facility] [address] [id number] [place] [address] Feb, [facility] [place] [facility] [address] [id number] [place] [address] Jan, [facility] [place] [facility] [address] [id number] [place] [address] Jan, [facility] [place] [facility] [address] [id number] [place] [address] Jan, [facility] [place] [facility] [address] [id number] [place] [address] Jan, [facility] [place] [facility] [address] [id number] [place] [address] Nov, [facility] [place] [facility] [address] [id number] [place] [address] Nov, [facility] [place] [facility] [address] [id number] [place] [address] Oct, [facility] [place] [facility] [address] [id number] [place] [address] Oct, [facility] [place] [facility] [address] [id number] [place] [address] Sep, [facility] [place] [facility] [address] [id number] [place] [address] Sep, [facility] [place] [facility] [address] [id number] [place] [address] Sep, [facility] [place] [facility] [address] [id number] [place] [address] Aug, [facility] [address] [id number] [place] [address] Aug, [facility] [address] [id number] [place] [address] Aug, [facility] [address] [id number] [place] [address] Aug, [facility] [address] [id number] [place] [address] July, [facility] [address] [id number] [place] [address] July, [facility] [address] [id number] [place] [address] July, [facility] [address] [id number] [place] [address] July, [facility] [facility] [address] [id number] [place] [address] Jun, [facility] [address] [id number] [place] [address] Jun, [facility] [address] [id number] [place] [address] Jun, [facility] [address] [id number] [place] [address] May, [facility] [address] [id number] [place] [address] May, [facility] [place] [facility] [address] [id number] [place] [address] Apr, [facility] [address] [id number] [place] [address] Apr, [facility] [address] [id number] [place] [address] Apr, [facility] [place] [facility] [address] [id number] [place] [address] Apr, [facility] [place] [facility] [address] [id number] [place] [address] Mar, [facility] [place] [facility] [address] [id number] [place] [address] Mar, [facility] [place] [facility] [address] [id number] [place] [address] Mar, [facility] [place] [facility] [address] [id number] [place] [address] Mar, [facility] [place] [facility] [address] [id number] [place] [address] Feb, [facility] [place] [facility] [address] [id number] [place] [address] Feb, [facility] [place] [facility] [address] [id number] [place] [address] Feb, [facility] [place] [facility] [address] [id number] [place] [address] Feb, [facility] [place] [facility] [address] [id number] [place] [address] Feb, [facility] [place] [facility] [address] [id number] [place] [address] Feb, [facility] [place] [facility] [address] [id number] [place] [address] Feb, [facility] [place] [facility] [address] [id number] [place] [address] Feb, [facility] [place] [facility] [address] [id number] [place] [address] Jan, [facility] [place] [facility] [address] [id number] [place] [address] Jan, [facility] [place] [facility] [address] [id number] [place] [address] 15 Jan, 2012 [facility] [place] [facility] [address] [id number] [place] [address] 15 Jan, 2012 [facility] [place] [facility] [address] [id number] [place] [address] 14 Jan, 2012 [facility] [place] [facility] [address] [id number] [place] [address] 13 Jan, 2012 [facility] [place] [facility] [address] [id number] [place] [address] 13 Jan, 2012 [facility] [place] [facility] [address] [id number] [place] [address], [place] [address] 12 Jan, 2012 [facility] [place] [facility] [address] [id number] [place] [address] Jan, [facility] [place] [facility] [address] [facility] [id number] [place] [address] 06 Jan, 2012 [facility] [place] [facility] [address] [facility] [id number] [place] [address] Jan, [facility] [place] [facility] [address] [facility] [id number] [place] [address] 31 Dec, 2011 [facility] [place] [facility] [address] [facility] [id number] [place] [address] 31 Dec, 2011 [facility] [place] [facility] [address] [facility] [id number] [place] [address] 29 Dec, 2011 [facility] [place] [facility] [address] [facility] [id number] [place] [address] 29 Dec, 2011 [facility] [place] [facility] [address] [id number] [place] [address] 29 Dec, 2011 [facility] [place] [facility] [address] [facility] [id number] [place] [address] 29 Dec, 2011 [facility] [place] [facility] [address] [facility] [id number] [place] [address] Dec, [facility] [place] [facility] [address] [id number] [place] [address] Dec, [facility] [place] [facility] [address] [id number] [place] [address] Dec, [facility] [place] [facility] [address] [id number] [place] [address] Dec, [facility] [place] [facility] [address] [id number] [place] [address] Dec, [facility] [place] [facility] [address] [id number] [place] [address] Dec, [facility] [place] [facility] [address] [id number] [place] [address] Nov, [facility] [place] [facility] [address] [id number] [place] [address] Oct, [facility] [place] [facility] [address] [id number] [place] [address] Oct, [facility] [place] [facility] [address] [id number] [place] [address] Oct, [facility] [place] [facility] [address] [id number] [place] [address] Oct, [facility] [place] [facility] [address] [id number] [place] [address] Sep, [facility] [place] [facility] [address] [id number] [place] [address] Sep, [facility] [place] [facility] [address] [id number] [place] [address] Sep, [facility] [place] [facility] [address] [id number] [place] [address] Sep, [facility] [place] [facility] [address] [id number] [place] [address] Aug, [facility] [place] [facility] [address] [id number] [place] [address] Aug, [facility] [address] [facility] [id number] [place] [address] Aug, [facility] [address] [id number] [place] [address] Aug, [facility] [address] [id number] [place] [address] Aug, [facility] [address] [id number] [place] [address] July, [facility] [address] [id number] [place] [address] July, [facility] [address] [id number] [place] [address] July, [facility] [address] [id number] [place] [address] Dec, IMMUNIZATIONS No Known Immunizations SOCIAL HISTORY Never Assessed REASON FOR VISIT cyst evaluation, left axilla. NANDINI Foley PLAN OF CARE Activity Details Follow Up 1 Week Reason: Future/Pending Procedure I & D SIMPLE ABSCESS VITAL SIGNS Height 58 in 2017-09-03 Weight 145.2 lbs 2017-09-03 Temperature 97.1 degrees Fahrenheit 2017-09-03 Heart Rate 94 bpm 2017-09-03 Respiratory Rate 18 2017-09-03 BMI 30.34 kg/m2 2017-09-03 Blood pressure systolic 116 mmHg 2017-09-03 Blood pressure diastolic 62 mmHg 2017-09-03 MEDICATIONS Medication Instructions Dosage Frequency Start Date End Date Duration Status Tegretol 200 MG Orally 2 times a day 1 tablet 12h 90 days Active ProAir HFA 108 (90 Base) MCG/ACT Inhalation every 6 hrs 2 puffs as needed 6h July, Active BusPIRone HCl 10 MG Orally 4 times a day 1 tablet 6h 90 days Active Pristiq 50 MG Orally Once a day 1 tablet 24h 90 days Active Symbicort 160-4.5 MCG/ACT Inhalation Twice a day 2 puffs 12h 17 Jul, 2017 Active Loratadine 10 mg Orally Once a day as needed 1 tablet 90 days Active Lyrica 150 MG Orally Twice a day 1 capsule 12h 30 Sep, 2014 90 days Active Protonix 40 MG Orally Once a day 1 tablet 24h Feb, 90 days Active Tizanidine HCl 4 MG Orally Three times a day 1 tablet as needed 8h July, Jan, 30 days Active Albuterol Sulfate (2.5 MG/3ML) 0.083% Inhalation every 4-6 hours as needed 3 ml Active Sucralfate 1 GM Orally 2 times a day TAKE 1 TABLET BY MOUTH ON AN EMPTY STOMACH 12h Active Bentyl 10 mg Orally Four times a day 1 tablet as needed 6h Mar, Sep, Active Doxycycline Hyclate 100 mg Orally twice a day 1 capsule 12h Aug, Sep, 10 day(s) Active Ranitidine HCl 150 MG Orally 2 times a day 1 tablet 12h 90 days Active Estradiol 1 MG 1 tablet by Oral route 1 time per day Mar, Not-Taking Ibuprofen 800 MG Orally Three times a day 1 tablet with food or milk as needed 8h 90 days Active RESULTS No Results PROCEDURES Procedure Date Ordered Result Body Site [facility] September 03, 2017 DRAINAGE OF SKIN ABSCESS September 03, 2017 INSTRUCTIONS MEDICATIONS ADMINISTERED No Known Medications MEDICAL (GENERAL) HISTORY Type Description Date Medical History epilepsy Medical History interstitial cystitis Surgical History hysterectomy Surgical History breast biopsy w/ Dr. Hickey 2009 Surgical History cholecystectomy 2012 Surgical History tonsillectomy Surgical History tubal ligation Surgical History urethral stretching 2008 Surgical History section
--- OUTSIDE RECORDS SUMMARY | 2018-10-24 12:22 | XMS REPORT ---
Author Author [facility]EL[facility] Address [address] [place] [address] Care Team Providers Care Household Chores Name Role Phone NELSONPRADEEP BURGOSHANY Unavailable PROBLEMS Type Condition ICD9-CM Code EID31-XZ Code Onset Dates Condition Status SNOMED Code Problem Fibromyalgia M79.7 Active 79513842 Problem Tinnitus of both ears H93.13 Active [id number] Problem Irritable bowel syndrome without diarrhea K58.9 Active 67473726 Problem COPD exacerbation J44.1 Active 800330471 Problem Menopausal symptoms N95.1 Active 60476908 Problem On antiepileptic therapy Z79.899 Active 828807868 Problem Chronic obstructive pulmonary disease, unspecified COPD type J44.9 Active 75403487 Problem Irritable bowel syndrome with diarrhea K58.0 Active 736374954 Problem Vitamin D deficiency E55.9 Active 62973940 Problem MRSA (methicillin resistant staph aureus) culture positive Z22.322 Active 403779092 Problem Epilepsy G40.909 Active 16674811 Problem Generalized anxiety disorder F41.1 Active 135776153 Problem Interstitial cystitis N30.10 Active 426065877 Problem Esophageal reflux K21.9 Active 363607499 Problem Major depressive disorder F32.9 Active 572871545 Problem Lumbago M54.5 Active 635193410 ALLERGIES No Information ENCOUNTERS Encounter Location Date Diagnosis [facility] [address] [id number] [address] Nov, [facility] [address] [id number] [id number] Oct, [facility] [address] [id number] [address] Oct, [facility] [address] [id number] [address] Sep, [facility] [id number] [place] [address] Sep, [facility] [id number] [place] [address] Sep, [facility] [id number] [place] [id number] Aug, Dental examination Z01.20 [facility] [id number] [place] [address] Aug, Abscess of axilla, left L02.412 [facility] [id number] [place] [address] Aug, Esophageal reflux K21.9 [facility] [id number] [place] [address] Aug, [facility] [address] [address] Aug, Esophageal reflux K21.9 ; Fluid level behind tympanic membrane of right ear H65.91 ; Fibromyalgia M79.7 and Lumbago M54.5 [facility] [id number] [place] [address] Aug, Esophageal reflux K21.9 [facility] [id number] [place] [address] July, [facility] [id number] [place] [address] July, [facility] [id number] [place] [address] July, Chronic obstructive pulmonary disease, unspecified COPD type J44.9 [facility] [id number] [place] [address] July, [facility] [id number] [place] [address] July, [facility] [id number] [place] [address] July, Interstitial cystitis N30.10 ; Fibromyalgia M79.7 [...] Dysuria R30.0 and Generalized anxiety disorder F41.1 [place] [address] [address] Jun, [place] [address] [address] Jun, Chronic obstructive pulmonary disease, unspecified COPD type J44.9 ; COPD exacerbation J44.1 and Sore throat J02.9 [place] [address] [address] Jun, Fibromyalgia M79.7 [place] [address] [address] Jun, Fibromyalgia M79.7 [place] [address] [address] May, [place] [id number] [place] [address] May, [place] [address] [address] May, Fibromyalgia M79.7 [place] [address] [address] Mar, [place] [address] [address] Mar, Epilepsy G40.909 ; Lumbago M54.5 ; Esophageal reflux K21.9 ; Fibromyalgia M79.7 ; Chronic obstructive pulmonary disease, unspecified COPD type J44.9 ; Vitamin D deficiency E55.9 ; Fluid level behind tympanic membrane of right ear H65.91 ; Irritable bowel syndrome with diarrhea K58.0 ; Hematochezia K92.1 and Generalized anxiety disorder F41.1 [facility] [id number] [place] [address] Mar, [facility] [address] [address] Mar, [facility] [id number] [place] [address] Mar, Vitamin D deficiency E55.9 [facility] [address] [address] Feb, [facility] [id number] [place] [address] Feb, [facility] [address] [address] Jan, Fibromyalgia M79.7 [facility] [id number] [place] [address] Jan, [facility] [id number] [place] [address] Jan, [facility] [id number] [place] [address] Jan, Vitamin D deficiency E55.9 [facility] [id number] [place] [address] Dec, [facility] [id number] [place] [address] Dec, [facility] [id number] [place] [address] Dec, Generalized anxiety disorder F41.1 [facility] [id number] [place] [address] 02 Oct, 2017 Dysuria R30.0 ; Acute bilateral low back pain without sciatica M54.5 and Encounter for immunization Z23 [facility] [id number] [place] [address] Oct, [facility] [id number] [place] [address] Oct, Fibromyalgia M79.7 [facility] [id number] [place] [address] Sep, Dysuria R30.0 and Acute bronchitis, unspecified organism J20.9 [facility] [id number] [place] [address] Sep, [facility] [id number] [place] [address] Sep, Rectal prolapse K62.3 [facility] [id number] [place] [address] Sep, Chronic obstructive pulmonary disease, unspecified COPD type J44.9 [facility] [id number] [place] [id number] Aug, [facility] [id number] [place] [id number] Aug, [facility] [id number] [place] [address] Aug, Light headedness R42 ; On antiepileptic therapy Z79.899 ; Vitamin D deficiency E55.9 ; Screening for lipid disorders Z13.220 ; Dysuria R30.0 and Hemorrhoids, unspecified hemorrhoid type K64.9 [facility] [id number] [place] [address] Aug, Internal prolapsed hemorrhoids K64.8 [facility] [id number] [place] [address] July, [facility] [id number] [place] [address] May, [place] [id number] [place] [address] May, Fever and chills R50.9 and Influenza B J10.1 [place] [id number] [place] [address] Apr, [address] [address] Apr, Fibromyalgia M79.7 and Generalized anxiety disorder F41.[address] [address] Mar, Esophageal reflux K21.9 ; Generalized anxiety disorder F41.1 and Epilepsy G40.909 [place] [address] [address] Mar, Epilepsy G40.909 ; Esophageal reflux K21.9 ; Fibromyalgia M79.7 ; Generalized anxiety disorder F41.1 ; Pain of left foot M79.672 ; Pain in right foot M79.671 ; Ear pain, right H92.01 ; Tinnitus of both ears H93.13 ; Chronic obstructive pulmonary disease, unspecified COPD type J44.9 ; Vitamin D deficiency E55.9 ; Screening for lipid disorders Z13.220 and On antiepileptic therapy Z79.899 [place] [id number] [place] [address] Feb, [place] [id number] [place] [address] Feb, [facility] [id number] [place] [address] Feb, Dysuria R30.0 and Plantar fasciitis of right foot M72.2 [place] [address] [address] Feb, [place] [address] [address] Feb, [facility] [id number] [place] [address] Jan, [facility] [id number] [place] [address] Jan, [facility] [id number] [place] [address] Dec, [facility] [address] [address] Dec, [facility] [id number] [place] [address] Dec, [facility] [id number] [place] [address] Nov, [facility] [id number] [place] [address] Sep, [facility] [id number] [place] [address] Aug, Shortness of breath R06.02 and Acute suppurative otitis media of right ear without spontaneous rupture of tympanic membrane, recurrence not specified H66.001 [place] [id number] [place] [address] 14 Aug, 2015 Internal prolapsed hemorrhoids K64.8 [place] [id number] [place] [address] Jun, 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 [facility] [id number] [place] [address] May, Fibromyalgia M79.7 ; Interstitial cystitis N30.10 ; Intractable migraine without aura and without status migrainosus G43.019 ; Low vitamin D level E55.9 and Ringing in right ear H93.11 [facility] [id number] [place] [address] May, [facility] [address] [address] May, Low vitamin D level E55.9 [facility] [address] [address] Apr, [facility] [address] [address] Mar, [facility] [address] [address] Mar, Acute suppurative otitis media of right ear without spontaneous rupture of tympanic membrane, recurrence not specified H66.001 ; Encounter for immunization Z23 ; Asthma with acute exacerbation, unspecified asthma severity J45.901 ; Memory problem R41.3 ; Acute pain of right knee M25.561 ; Chronic fatigue R53.82 and Excessive urinary volume R35.8 [facility] [address] [address] Feb, [facility] [address] [address] Feb, [facility] [address] [address] Jan, [facility] [address] [address] Nov, Esophageal reflux 530.81 ; Anxiety 300.00 and Tingling in extremities 782.0 [facility] [id number] [place] [address] Oct, [facility] [address] [address] Oct, [facility] [address] [address] Oct, [facility] [address] [address] Oct, [facility] [address] [address] Oct, [facility] [address], [place] [address] Sep, Other chronic allergic conjunctivitis 372.14 ; Irritable bowel syndrome 564.1 ; 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 ; Fibromyalgia 729.1 ; Extremity pain 729.5 and Neck pain 723.1 [facility] [address] [place] [address] Sep, [facility] [id number] [place] [address] Aug, [facility] [id number] [place] [address] Aug, [facility] [id number] [place] [address] July, Vomiting 787.03 [facility] [id number] [place] [id number] July, Dental examination V72.2 [facility] [id number] [place] [address] Jun, [facility] [address] [place] [address] Jun, [facility] [address], [place] [address] May, [facility] [id number] [place] [address] May, [facility] [id number] [place] [address] May, [facility] [id number] [place] [address] May, [facility] [address], [place] [address] May, [facility] [id number] [place] [address] May, [facility] [place] [facility] [address] [id number] [place] [address] May, [facility] [place] [facility] [address] [id number] [place] [address] May, [facility] [place] [facility] [address] [id number] [place] [address] May, [facility] [place] [facility] [address] [id number] [place] [address] Apr, 2014 [facility] [place] [facility] [address] [id number] [place] [address] Apr, 2014 [facility] [place] [facility] [address] [id number] [place] [address] Apr, 2014 [facility] [place] [facility] [address] [id number] [place] [address] Apr, 2014 [facility] [place] [facility] [address] [id number] [place] [address] Apr, [facility] [place] [facility] [address] [id number] [place] [address] Apr, [facility] [place] [facility] [address] [facility] [id number] [place] [address] Mar, [facility] [place] [facility] [address] [id number] [place] [address] Mar, [facility] [place] [facility] [address] [id number] [place] [address] Mar, [facility] [place] [facility] [address] [id number] [place] [address] Mar, [facility] [place] [facility] [address] [id number] [place] [address] Mar, [facility] [place] [facility] [address] [id number] [place] [address] Mar, [facility] [place] [facility] [address] [id number] [place] [address] Mar, [facility] [address] [id number] [place] [address] Mar, [facility] [place] [facility] [address] [id number] [place] [address] Mar, [facility] [place] [facility] [address] [id number] [place] [address] Mar, [facility] [address] [id number] [place] [address] Mar, [facility] [place] [facility] [address] [id number] [place] [address] Mar, [facility] [address] [id number] [place] [address] Mar, [facility] [address] [id number] [place] [address] Mar, [facility] [address] [id number] [place] [address] Mar, [facility] [place] [facility] [address] [id number] [place] [address] Mar, [facility] [place] [facility] [address] [id number] [place] [address] Mar, [facility] [place] [facility] [address] [id number], [place] [address] Mar, [facility] [place] [facility] [address] [id number] [place] [address] Mar, [facility] [place] [facility] [address] [id number] [place] [address] Feb, [facility] [place] [facility] [address] [id number] [place] [address] Feb, [facility] [place] [facility] [address] [id number] [place] [address] Feb, [facility] [place] [facility] [address] [id number] [place] [address] Feb, [facility] [place] [facility] [address] [id number] [place] [address] Jan, [facility] [place] [facility] [address] [id number] [place] [address] Jan, [facility] [place] [facility] [address] [id number] [place] [address] Jan, [facility] [place] [facility] [address] [id number] [place] [address] Jan, [facility] [place] [facility] [address] [id number] [place] [address] Jan, [facility] [place] [facility] [address] [id number] [place] [address] Jan, [facility] [place] [facility] [address] [id number] [place] [address] Jan, [facility] [place] [facility] [address] [id number] [place] [address] Jan, [facility] [place] [facility] [address] [id number] [place] [address] Dec, [facility] [place] [facility] [address] [id number] [place] [address] Dec, [facility] [place] [facility] [address] [id number], [place] [address] Dec, [facility] [place] [facility] [address] [id number] [place] [address] Dec, [facility] [place] [facility] [address] [id number] [place] [address] Nov, [facility] [place] [facility] [address] [id number] [place] [address] Nov, [facility] [place] [facility] [address] [id number] [place] [address] 08 Sep, 2013 [facility] [place] [facility] [address] [id number] [place] [address] 08 Sep, 2013 [facility] [place] [facility] [address] [id number] [place] [address] 05 Sep, 2013 [facility] [place] [facility] [address] [id number] [place] [address] 05 Sep, 2013 [facility] [place] [facility] [address] [id number] [place] [address] 04 Sep, 2013 [facility] [place] [facility] [address] [id number] [place] [address] 04 Nov, 2013 [facility] [place] [facility] [address] [id number] [place] [address] 03 Nov, 2013 [facility] [place] [facility] [address] [id number] [place] [address] Nov, 2013 [facility] [place] [facility] [address] [id number] [place] [address] Oct, [facility] [place] [facility] [address] [id number] [place] [address] Oct, [facility] [place] [facility] [address] [id number] [place] [address] Sep, [facility] [place] [facility] [address] [id number] [place] [address] Sep, [facility] [place] [facility] [address] [id number] [place] [address] Sep, [facility] [place] [facility] [address] [id number] [place] [address] Sep, [facility] [place] [facility] [address] [id number] [place] [address] Sep, [facility] [place] [facility] [address] [id number] [place] [address] Sep, [facility] [place] [facility] [address] [id number] [place] [address] Aug, [facility] [place] [facility] [address] [id number] [place] [address] Aug, [facility] [place] [facility] [address] [id number] [place] [address] Aug, [facility] [place] [facility] [address] [id number] [place] [address] Aug, [facility] [place] [facility] [address] [id number] [place] [address] Aug, [facility] [place] [facility] [address] [id number] [place] [address] Aug, [facility] [place] [facility] [address] [id number] [place] [address] July, [facility] [place] [facility] [address] [id number] [place] [address] July, [facility] [place] [facility] [address] [id number] [place] [address] July, [facility] [place] [facility] [address] [id number] [place] [address] July, [facility] [place] [facility] [address] [id number] [place] [address] July, [facility] [place] [facility] [address] [id number] [place] [address] July, [facility] [place] [facility] [address] [id number] [place] [address] Jun, [facility] [place] [facility] [address] [id number] [place] [address] Jun, [facility] [place] [facility] [address] [id number] [place] [address] Jun, [facility] [place] [facility] [address] [id number] [place] [address] Jun, [facility] [place] [facility] [address] [id number] [place] [address] May, [facility] [place] [facility] [address] [id number] [place] [address] May, [facility] [place] [facility] [address] [id number] [place] [address] Apr, [facility] [place] [facility] [address] [id number] [place] [address] Apr, [facility] [place] [facility] [address] [id number] [place] [address] Apr, [facility] [place] [facility] [address] [id number] [place] [address] Apr, [facility] [place] [facility] [address] [id number] [place] [address] Mar, [facility] [place] [facility] [address] [id number] [place] [address] Mar, [facility] [place] [facility] [address] [id number] [place] [address] Mar, [facility] [place] [facility] [address] [id number] [place] [address] Mar, [facility] [place] [facility] [address] [id number] [place] [address] Mar, [facility] [place] [facility] [address] [id number] [place] [address] Mar, [facility] [place] [facility] [address] [id number] [place] [address] Feb, [facility] [place] [facility] [address] [id number] [place] [address] Feb, [facility] [place] [facility] [address] [id number] [place] [address] Jan, [facility] [place] [facility] [address] [id number] [place] [address] Jan, [facility] [place] [facility] [address] [id number] [place] [address] Jan, [facility] [place] [facility] [address] [id number] [place] [address] Jan, [facility] [place] [facility] [address] [id number] [place] [address] Nov, [facility] [place] [facility] [address] [id number] [place] [address] Nov, [facility] [place] [facility] [address] [id number] [place] [address] Oct, [facility] [place] [facility] [address] [id number] [place] [address] Oct, [facility] [place] [facility] [address] [id number] [place] [address] Sep, [facility] [place] [facility] [address] [id number] [place] [address] Sep, [facility] [place] [facility] [address] [id number] [place] [address] Sep, [facility] [place] [facility] [address] [id number] [place] [address] Aug, [facility] [place] [facility] [address] [id number] [place] [address] Aug, [facility] [place] [facility] [address] [id number] [place] [address] Aug, [facility] [place] [facility] [address] [id number] [place] [address] Aug, [facility] [place] [facility] [address] [id number] [place] [address] July, [facility] [place] [facility] [address] [id number], [place] [address] July, [facility] [address] [id number] [place] [address] July, [facility] [address] [id number] [place] [id number] July, [facility] [address] [id number] [place] [address] Jun, [facility] [address] [id number] [place] [address] Jun, [facility] [address] [id number] [place] [address] Jun, [facility] [address] [id number] [place] [address] May, [facility] [address] [id number] [place] [address] May, [facility] [address] [id number] [place] [address] Apr, [facility] [address] [id number] [place] [address] Apr, [facility] [address] [id number] [place] [address] Apr, [facility] [address] [id number] [place] [address] Apr, [facility] [address] [id number], [place] [address] Mar, [facility] [address] [id number] [place] [address] Mar, [facility] [place] [facility] [address] [id number], [place] [address] Mar, [facility] [address] [facility] [id number], [place] [address] Mar, [facility] [place] [facility] [address] [id number] [place] [address] 11 Feb, 2012 [facility] [place] [facility] [address] [id number] [place] [address] 10 Feb, 2012 [facility] [place] [facility] [address] [id number] [place] [address] 10 Feb, 2012 [facility] [place] [facility] [address] [id number] [place] [address] 10 Feb, 2012 [facility] [place] [facility] [address] [id number] [place] [address] 10 Feb, 2012 [facility] [place] [facility] [address] [id number] [place] [address] 06 Feb, 2012 [facility] [place] [facility] [address] [id number] [place] [address] 04 Feb, 2012 [facility] [place] [facility] [address] [id number] [place] [address] 04 Feb, 2012 [facility] [place] [facility] [address] [id number] [place] [address] 28 Jan, 2012 [facility] [place] [facility] [address] [id number] [place] [address] 28 Jan, 2012 [facility] [place] [facility] [address] [id number] [place] [address] 15 Jan, 2012 [facility] [place] [facility] [address] [id number] [place] [address] 15 Jan, 2012 [facility] [place] [facility] [address] [id number] [place] [address] 14 Jan, 2012 [facility] [place] [facility] [address] [id number] [place] [address] 13 Jan, 2012 [facility] [place] [facility] [address] [id number] [place] [address] 13 Jan, 2012 [facility] [place] [facility] [address] [id number] [place] [address] Jan, [facility] [place] [facility] [address] [id number] [place] [address] Jan, [facility] [place] [facility] [address] [id number], [place] [address] Jan, [facility] [place] [facility] [address] [facility] [id number] [place] [address] Jan, [facility] [place] [facility] [address] [id number], [place] [address] Dec, [facility] [place] [facility] [address] [id number] [place] [address] Dec, [facility] [place] [facility] [address] [id number], [place] [address] Dec, [facility] [place] [facility] [address] [id number] [place] [address] Dec, [facility] [place] [facility] [address] [id number], [place] [address] Dec, [facility] [place] [facility] [address] [id number], [place] [address] Dec, [facility] [place] [facility] [address] [facility] [id number], [place] [address] Dec, [facility] [place] [facility] [address] [id number], [place] [address] Dec, [facility] [place] [facility] [address] [id number], [place] [address] Dec, [facility] [place] [facility] [address] [id number], [place] [address] Dec, [facility] [place] [facility] [address] [facility] [id number], [place] [address] Dec, [facility] [place] [facility] [address] [facility] [id number], [place] [address] Dec, [facility] [place] [facility] [address] [id number] [place] [address] Nov, [facility] [place] [facility] [address] [id number] [place] [address] Oct, [facility] [place] [facility] [address] [id number] [place] [address] Oct, [facility] [place] [facility] [address] [id number] [place] [address] Oct, [facility] [place] [facility] [address] [id number] [place] [address] Oct, [facility] [place] [facility] [address] [id number] [place] [address] Sep, [facility] [place] [facility] [address] [id number] [place] [address] Sep, [facility] [place] [facility] [address] [id number] [place] [address] Sep, [facility] [place] [facility] [address] [id number] [place] [address] Sep, [facility] [place] [facility] [address] [id number] [place] [address] Aug, [facility] [place] [facility] [address] [id number] [place] [address] Aug, [facility] [place] [facility] [address] [id number] [place] [address] Aug, [facility] [place] [facility] [address] [id number] [place] [address] Aug, [facility] [place] [facility] [address] [id number] [place] [address] Aug, [facility] [place] [facility] [address] [id number] [place] [address] July, [facility] [place] [facility] [address] [id number] [place] [address] July, [facility] [address] [facility] [id number] [place] [address] July, [facility] [address] [facility] [id number] [place] [address] Dec, IMMUNIZATIONS No Known Immunizations SOCIAL HISTORY [...]
--- OUTSIDE RECORDS SUMMARY | 2018-10-24 12:23 | XMS REPORT ---
Author Author NELSON DIANN [facility] Address [address] [place] [address] Care Team Providers Care Substation Operator Helper Name Role Phone NELSONPRADEEP BURGOSHANY Unavailable PROBLEMS Type Condition ICD9-CM Code WCM06-BT Code Onset Dates Condition Status SNOMED Code Problem Fibromyalgia M79.7 Active 28821071 Problem Tinnitus of both ears H93.13 Active 3803972449746 Problem Irritable bowel syndrome without diarrhea K58.9 Active 19635377 Problem COPD exacerbation J44.1 Active 675622626 Problem Menopausal symptoms N95.1 Active 17037470 Problem On antiepileptic therapy Z79.899 Active 258485172 Problem Chronic obstructive pulmonary disease, unspecified COPD type J44.9 Active 47129708 Problem Irritable bowel syndrome with diarrhea K58.0 Active 591963977 Problem Vitamin D deficiency E55.9 Active 48869617 Problem MRSA (methicillin resistant staph aureus) culture positive Z22.322 Active 346246699 Problem Epilepsy G40.909 Active 03070563 Problem Generalized anxiety disorder F41.1 Active 792848245 Problem Interstitial cystitis N30.10 Active 921138581 Problem Esophageal reflux K21.9 Active 367805423 Problem Major depressive disorder F32.9 Active 706515195 Problem Lumbago M54.5 Active 373941074 ALLERGIES No Information ENCOUNTERS Encounter Location Date Diagnosis [facility] [address] [id number], [place] [address] Nov, [facility] [address] [id number] [id number] Oct, [facility] [address] [id number] [address] Oct, [facility] [address] [id number], [place] [address] Sep, [facility] [id number] [place] [address] Sep, [facility] [id number] [place] [address] Sep, [facility] [id number] [place] [address] [id number] Aug, Dental examination Z01.20 [facility] [id number] [place] [address] Aug, Abscess of axilla, left L02.412 [facility] [id number] [place] [address] Aug, Esophageal reflux K21.9 [facility] [id number] [place] [address] Aug, [facility] [address] [address] Aug, Esophageal reflux K21.9 ; Fluid level behind tympanic membrane of right ear H65.91 ; Fibromyalgia M79.7 and Lumbago M54.5 [facility] [id number] [place] [address] Aug, Esophageal reflux K21.9 [facility] [id number] [place] [address] July, [facility] [id number] [place] [address] July, [facility] [id number] [place] [address] July, Chronic obstructive pulmonary disease, unspecified COPD type J44.9 [facility] [id number] [place] [address] July, [facility] [id number] [place] [address] July, [facility] [id number] [place] [address] July, Interstitial cystitis N30.10 ; Fibromyalgia M79.7 [...] and Generalized anxiety disorder F41.1 [place] [address] [address] Jun, [place] [address] [address] Jun, Chronic obstructive pulmonary disease, unspecified COPD type J44.9 ; COPD exacerbation J44.1 and Sore throat J02.9 [place] [address] [address] Jun, Fibromyalgia M79.7 [place] [address] [address] Jun, Fibromyalgia M79.7 [place] [address] [address] May, [place] [id number] [place] [address] May, [place] [address] [address] May, Fibromyalgia M79.7 [place] [address] [address] Mar, [place] [address] [address] Mar, Epilepsy G40.909 ; Lumbago M54.5 ; Esophageal reflux K21.9 ; Fibromyalgia M79.7 ; Chronic obstructive pulmonary disease, unspecified COPD type J44.9 ; Vitamin D deficiency E55.9 ; Fluid level behind tympanic membrane of right ear H65.91 ; Irritable bowel syndrome with diarrhea K58.0 ; Hematochezia K92.1 and Generalized anxiety disorder F41.1 [facility] [id number] [place] [address] Mar, [facility] [address] [address] Mar, [facility] [id number] [place] [address] Mar, Vitamin D deficiency E55.9 [facility] [address] [address] Feb, [facility] [id number] [place] [address] Feb, [facility] [address] [address] Jan, Fibromyalgia M79.7 [facility] [id number] [place] [address] Jan, [facility] [id number] [place] [address] Jan, [facility] [id number] [place] [address] Jan, Vitamin D deficiency E55.9 [facility] [id number] [place] [address] Dec, [facility] [id number] [place] [address] Dec, [facility] [id number] [place] [address] Dec, Generalized anxiety disorder F41.1 [facility] [id number] [place] [address] 02 Oct, 2017 Dysuria R30.0 ; Acute bilateral low back pain without sciatica M54.5 and Encounter for immunization Z23 [facility] [id number] [place] [address] Oct, [facility] [id number] [place] [address] Oct, Fibromyalgia M79.7 [facility] [id number] [place] [address] Sep, Dysuria R30.0 and Acute bronchitis, unspecified organism J20.9 [facility] [id number] [place] [address] Sep, [facility] [id number] [place] [address] Sep, Rectal prolapse K62.3 [facility] [id number] [place] [address] Sep, Chronic obstructive pulmonary disease, unspecified COPD type J44.9 [facility] [id number] [place] [id number] Aug, [facility] [id number] [place] [id number] Aug, [facility] [id number] [place] [address] Aug, Light headedness R42 ; On antiepileptic therapy Z79.899 ; Vitamin D deficiency E55.9 ; Screening for lipid disorders Z13.220 ; Dysuria R30.0 and Hemorrhoids, unspecified hemorrhoid type K64.9 [facility] [id number] [place] [address] Aug, Internal prolapsed hemorrhoids K64.8 [facility] [id number] [place] [address] July, [facility] [id number] [place] [address] May, [place] [id number] [place] [address] May, Fever and chills R50.9 and Influenza B J10.1 [place] [id number] [place] [address] Apr, [address] [address] Apr, Fibromyalgia M79.7 and Generalized anxiety disorder F41.[address] [address] Mar, Esophageal reflux K21.9 ; Generalized anxiety disorder F41.1 and Epilepsy G40.909 [place] [address] [address] Mar, Epilepsy G40.909 ; Esophageal reflux K21.9 ; Fibromyalgia M79.7 ; Generalized anxiety disorder F41.1 ; Pain of left foot M79.672 ; Pain in right foot M79.671 ; Ear pain, right H92.01 ; Tinnitus of both ears H93.13 ; Chronic obstructive pulmonary disease, unspecified COPD type J44.9 ; Vitamin D deficiency E55.9 ; Screening for lipid disorders Z13.220 and On antiepileptic therapy Z79.899 [place] [id number] [place] [address] Feb, [place] [id number] [place] [address] Feb, [facility] [id number] [place] [address] Feb, Dysuria R30.0 and Plantar fasciitis of right foot M72.2 [place] [address] [address] Feb, [place] [address] [address] Feb, [facility] [id number] [place] [address] Jan, [facility] [id number] [place] [address] Jan, [facility] [id number] [place] [address] Dec, [facility] [address] [address] Dec, [facility] [id number] [place] [address] Dec, [facility] [id number] [place] [address] Nov, [facility] [id number] [place] [address] Sep, [facility] [id number] [place] [address] Aug, Shortness of breath R06.02 and Acute suppurative otitis media of right ear without spontaneous rupture of tympanic membrane, recurrence not specified H66.001 [place] [id number] [place] [address] 14 Aug, 2015 Internal prolapsed hemorrhoids K64.8 [place] [id number] [place] [address] Jun, 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 [facility] [id number] [place] [address] May, Fibromyalgia M79.7 ; Interstitial cystitis N30.10 ; Intractable migraine without aura and without status migrainosus G43.019 ; Low vitamin D level E55.9 and Ringing in right ear H93.11 [facility] [id number] [place] [address] May, [facility] [address] [address] May, Low vitamin D level E55.9 [facility] [address] [address] Apr, [facility] [address] [address] Mar, [facility] [address] [address] Mar, Acute suppurative otitis media of right ear without spontaneous rupture of tympanic membrane, recurrence not specified H66.001 ; Encounter for immunization Z23 ; Asthma with acute exacerbation, unspecified asthma severity J45.901 ; Memory problem R41.3 ; Acute pain of right knee M25.561 ; Chronic fatigue R53.82 and Excessive urinary volume R35.8 [facility] [address] [address] Feb, [facility] [address] [address] Feb, [facility] [address] [address] Jan, [facility] [address] [address] Nov, Esophageal reflux 530.81 ; Anxiety 300.00 and Tingling in extremities 782.0 [facility] [id number] [place] [address] Oct, [facility] [address] [address] Oct, [facility] [address] [address] Oct, [facility] [address] [address] Oct, [facility] [address] [address] Oct, [facility] [address], [place] [address] Sep, Other chronic allergic conjunctivitis 372.14 ; Irritable bowel syndrome 564.1 ; 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 ; Fibromyalgia 729.1 ; Extremity pain 729.5 and Neck pain 723.1 [facility] [address] [place] [address] Sep, [facility] [id number] [place] [address] Aug, [facility] [id number] [place] [address] Aug, [facility] [id number] [place] [address] July, Vomiting 787.03 [facility] [id number] [place] [address] [id number] July, Dental examination V72.2 [facility] [address] [place] [address] Jun, [facility] [address] [place] [address] Jun, [facility] [address] [address] May, [facility] [id number] [place] [address] May, [facility] [address] [place] [address] May, [facility] [id number] [place] [address] May, [facility] [address] [address] May, [facility] [id number] [place] [address] May, [facility] [place] [facility] [address] [id number] [place] [address] May, [facility] [place] [facility] [address] [id number] [place] [address] May, [facility] [place] [facility] [address] [id number] [place] [address] May, [facility] [place] [facility] [address] [id number] [place] [address] Apr, 2014 [facility] [place] [facility] [address] [id number] [place] [address] Apr, 2014 [facility] [place] [facility] [address] [id number] [place] [address] Apr, 2014 [facility] [place] [facility] [address] [id number] [place] [address] Apr, 2014 [facility] [place] [facility] [address] [id number] [place] [address] Apr, [facility] [place] [facility] [address] [id number] [place] [address] Apr, [facility] [place] [facility] [address] [facility] [id number] [place] [address] Mar, [facility] [place] [facility] [address] [id number] [place] [address] Mar, [facility] [place] [facility] [address] [id number] [place] [address] Mar, [facility] [place] [facility] [address] [id number] [place] [address] Mar, [facility] [place] [facility] [address] [id number] [place] [address] Mar, [facility] [place] [facility] [address] [id number] [place] [address] Mar, [facility] [place] [facility] [address] [id number] [place] [address] Mar, [facility] [address] [id number] [place] [address] Mar, [facility] [place] [facility] [address] [id number] [place] [address] Mar, [facility] [place] [facility] [address] [id number] [place] [address] Mar, [facility] [address] [id number] [place] [address] Mar, [facility] [place] [facility] [address] [id number] [place] [address] Mar, [facility] [address] [id number] [place] [address] Mar, [facility] [address] [id number] [place] [address] Mar, [facility] [address] [id number] [place] [address] Mar, [facility] [place] [facility] [address] [id number] [place] [address] Mar, [facility] [place] [facility] [address] [id number] [place] [address] Mar, [facility] [place] [facility] [address] [id number], [place] [address] Mar, [facility] [place] [facility] [address] [id number] [place] [address] Mar, [facility] [place] [facility] [address] [id number] [place] [address] Feb, [facility] [place] [facility] [address] [id number] [place] [address] Feb, [facility] [place] [facility] [address] [id number] [place] [address] Feb, [facility] [place] [facility] [address] [id number] [place] [address] Feb, [facility] [place] [facility] [address] [id number] [place] [address] Jan, [facility] [place] [facility] [address] [id number] [place] [address] Jan, [facility] [place] [facility] [address] [id number] [place] [address] Jan, [facility] [place] [facility] [address] [id number] [place] [address] Jan, [facility] [place] [facility] [address] [id number] [place] [address] Jan, [facility] [place] [facility] [address] [id number] [place] [address] Jan, [facility] [place] [facility] [address] [id number] [place] [address] Jan, [facility] [place] [facility] [address] [id number] [place] [address] Jan, [facility] [place] [facility] [address] [id number] [place] [address] Dec, [facility] [place] [facility] [address] [id number] [place] [address] Dec, [facility] [place] [facility] [address] [id number], [place] [address] Dec, [facility] [place] [facility] [address] [id number] [place] [address] Dec, [facility] [place] [facility] [address] [id number] [place] [address] Nov, [facility] [place] [facility] [address] [id number] [place] [address] Nov, [facility] [place] [facility] [address] [id number] [place] [address] 08 Sep, 2013 [facility] [place] [facility] [address] [id number] [place] [address] 08 Sep, 2013 [facility] [place] [facility] [address] [id number] [place] [address] 05 Sep, 2013 [facility] [place] [facility] [address] [id number] [place] [address] 05 Sep, 2013 [facility] [place] [facility] [address] [id number] [place] [address] 04 Sep, 2013 [facility] [place] [facility] [address] [id number] [place] [address] 04 Nov, 2013 [facility] [place] [facility] [address] [id number] [place] [address] 03 Nov, 2013 [facility] [place] [facility] [address] [id number] [place] [address] Nov, 2013 [facility] [place] [facility] [address] [id number] [place] [address] Oct, [facility] [place] [facility] [address] [id number] [place] [address] Oct, [facility] [place] [facility] [address] [id number] [place] [address] Sep, [facility] [place] [facility] [address] [id number] [place] [address] Sep, [facility] [place] [facility] [address] [id number] [place] [address] Sep, [facility] [place] [facility] [address] [id number] [place] [address] Sep, [facility] [place] [facility] [address] [id number] [place] [address] Sep, [facility] [place] [facility] [address] [id number] [place] [address] Sep, [facility] [place] [facility] [address] [id number] [place] [address] Aug, [facility] [place] [facility] [address] [id number] [place] [address] Aug, [facility] [place] [facility] [address] [id number] [place] [address] Aug, [facility] [place] [facility] [address] [id number] [place] [address] Aug, [facility] [place] [facility] [address] [id number] [place] [address] Aug, [facility] [place] [facility] [address] [id number] [place] [address] Aug, [facility] [place] [facility] [address] [id number] [place] [address] July, [facility] [place] [facility] [address] [id number] [place] [address] July, [facility] [place] [facility] [address] [id number] [place] [address] July, [facility] [place] [facility] [address] [id number] [place] [address] July, [facility] [place] [facility] [address] [id number] [place] [address] July, [facility] [place] [facility] [address] [id number] [place] [address] July, [facility] [place] [facility] [address] [id number] [place] [address] Jun, [facility] [place] [facility] [address] [id number] [place] [address] Jun, [facility] [place] [facility] [address] [id number] [place] [address] Jun, [facility] [place] [facility] [address] [id number] [place] [address] Jun, [facility] [place] [facility] [address] [id number] [place] [address] May, [facility] [place] [facility] [address] [id number] [place] [address] May, [facility] [place] [facility] [address] [id number] [place] [address] Apr, [facility] [place] [facility] [address] [id number] [place] [address] Apr, [facility] [place] [facility] [address] [id number] [place] [address] Apr, [facility] [place] [facility] [address] [id number] [place] [address] Apr, [facility] [place] [facility] [address] [id number] [place] [address] Mar, [facility] [place] [facility] [address] [id number] [place] [address] Mar, [facility] [place] [facility] [address] [id number] [place] [address] Mar, [facility] [place] [facility] [address] [id number] [place] [address] Mar, [facility] [place] [facility] [address] [id number] [place] [address] Mar, [facility] [place] [facility] [address] [id number] [place] [address] Mar, [facility] [place] [facility] [address] [id number] [place] [address] Feb, [facility] [place] [facility] [address] [id number] [place] [address] Feb, [facility] [place] [facility] [address] [id number] [place] [address] Jan, [facility] [place] [facility] [address] [id number] [place] [address] Jan, [facility] [place] [facility] [address] [id number] [place] [address] Jan, [facility] [place] [facility] [address] [id number] [place] [address] Jan, [facility] [place] [facility] [address] [id number] [place] [address] Nov, [facility] [place] [facility] [address] [id number] [place] [address] Nov, [facility] [place] [facility] [address] [id number] [place] [address] Oct, [facility] [place] [facility] [address] [id number] [place] [address] Oct, [facility] [place] [facility] [address] [id number] [place] [address] Sep, [facility] [place] [facility] [address] [id number] [place] [address] Sep, [facility] [place] [facility] [address] [id number] [place] [address] Sep, [facility] [place] [facility] [address] [id number] [place] [address] Aug, [facility] [place] [facility] [address] [id number] [place] [address] Aug, [facility] [place] [facility] [address] [id number] [place] [address] Aug, [facility] [place] [facility] [address] [id number] [place] [address] Aug, [facility] [place] [facility] [address] [id number] [place] [address] July, [facility] [place] [facility] [address] [id number], [place] [address] July, [facility] [facility] [address] [id number] [place] [address] July, [facility] [address] [id number] [place] [address] July, [facility] [address] [id number] [place] [address] Jun, [facility] [address] [id number] [place] [address] Jun, [facility] [address] [id number] [place] [address] Jun, [facility] [address] [id number] [place] [address] May, [facility] [address] [id number] [place] [address] May, [facility] [address] [id number] [place] [address] Apr, [facility] [address] [id number] [place] [address] Apr, [facility] [address] [id number] [place] [address] Apr, [facility] [address] [id number] [place] [address] Apr, [facility] [address] [id number], [place] [address] Mar, [facility] [address] [id number] [place] [address] Mar, [facility] [place] [facility] [address] [id number], [place] [address] Mar, [facility] [address] [facility] [id number], [place] [address] Mar, [facility] [place] [facility] [address] [id number] [place] [address] 11 Feb, 2012 [facility] [place] [facility] [address] [id number] [place] [address] 10 Feb, 2012 [facility] [place] [facility] [address] [id number] [place] [address] 10 Feb, 2012 [facility] [place] [facility] [address] [id number] [place] [address] 10 Feb, 2012 [facility] [place] [facility] [address] [id number] [place] [address] 10 Feb, 2012 [facility] [place] [facility] [address] [id number] [place] [address] 06 Feb, 2012 [facility] [place] [facility] [address] [id number] [place] [address] 04 Feb, 2012 [facility] [place] [facility] [address] [id number] [place] [address] 04 Feb, 2012 [facility] [place] [facility] [address] [id number] [place] [address] 28 Jan, 2012 [facility] [place] [facility] [address] [id number] [place] [address] 28 Jan, 2012 [facility] [place] [facility] [address] [id number] [place] [address] 15 Jan, 2012 [facility] [place] [facility] [address] [id number] [place] [address] 15 Jan, 2012 [facility] [place] [facility] [address] [id number] [place] [address] 14 Jan, 2012 [facility] [place] [facility] [address] [id number] [place] [address] 13 Jan, 2012 [facility] [place] [facility] [address] [id number] [place] [address] 13 Jan, 2012 [facility] [place] [facility] [address] [id number] [place] [address] Jan, [facility] [place] [facility] [address] [id number] [place] [address] Jan, [facility] [place] [facility] [address] [id number], [place] [address] Jan, [facility] [place] [facility] [address] [facility] [id number] [place] [address] Jan, [facility] [place] [facility] [address] [id number], [place] [address] Dec, [facility] [place] [facility] [address] [id number] [place] [address] Dec, [facility] [place] [facility] [address] [id number], [place] [address] Dec, [facility] [place] [facility] [address] [id number] [place] [address] Dec, [facility] [place] [facility] [address] [id number], [place] [address] Dec, [facility] [place] [facility] [address] [id number], [place] [address] Dec, [facility] [place] [facility] [address] [facility] [id number], [place] [address] Dec, [facility] [place] [facility] [address] [id number], [place] [address] Dec, [facility] [place] [facility] [address] [id number], [place] [address] Dec, [facility] [place] [facility] [address] [id number], [place] [address] Dec, [facility] [place] [facility] [address] [facility] [id number], [place] [address] Dec, [facility] [place] [facility] [address] [facility] [id number], [place] [address] Dec, [facility] [place] [facility] [address] [id number] [place] [address] Nov, [facility] [place] [facility] [address] [id number] [place] [address] Oct, [facility] [place] [facility] [address] [id number] [place] [address] Oct, [facility] [place] [facility] [address] [id number] [place] [address] Oct, [facility] [place] [facility] [address] [id number] [place] [address] Oct, [facility] [place] [facility] [address] [id number] [place] [address] Sep, [facility] [place] [facility] [address] [id number] [place] [address] Sep, [facility] [place] [facility] [address] [id number] [place] [address] Sep, [facility] [place] [facility] [address] [id number] [place] [address] Sep, [facility] [place] [facility] [address] [id number] [place] [address] Aug, [facility] [place] [facility] [address] [id number] [place] [address] Aug, [facility] [place] [facility] [address] [id number] [place] [address] Aug, [facility] [place] [facility] [address] [id number] [place] [address] Aug, [facility] [place] [facility] [address] [id number] [place] [address] Aug, [facility] [place] [facility] [address] [id number] [place] [address] July, [facility] [place] [facility] [address] [id number] [place] [address] July, [facility] [address] [facility] [id number] [place] [address] July, [facility] [address] [facility] [id number], [place] [address] Dec, IMMUNIZATIONS No Known Immunizations SOCIAL HISTORY Never Assessed REASON FOR VISIT Refill Request PLAN OF CARE VITAL SIGNS MEDICATIONS Medication Instructions Dosage Frequency Start Date End Date Duration Status Sucralfate 1 GM Orally 2 times a day TAKE 1 TABLET BY MOUTH ON AN EMPTY STOMACH 12h Active RESULTS No Results PROCEDURES No Known [...]
--- OUTSIDE RECORDS SUMMARY | 2018-10-24 12:24 | XMS REPORT ---
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 Name Role Phone NELSONPRADEEP BURGOSHANY Unavailable PROBLEMS Type Condition ICD9-CM Code EOV16-VQ Code Onset Dates Condition Status SNOMED Code Problem Fibromyalgia M79.7 Active 11430615 Problem Tinnitus of both ears H93.13 Active 3826525754301 Problem Irritable bowel syndrome without diarrhea K58.9 Active 22393833 Problem COPD exacerbation J44.1 Active 909016312 Problem Menopausal symptoms N95.1 Active 50528310 Problem On antiepileptic therapy Z79.899 Active 643271942 Problem Chronic obstructive pulmonary disease, unspecified COPD type J44.9 Active 94395864 Problem Irritable bowel syndrome with diarrhea K58.0 Active 800208275 Problem Vitamin D deficiency E55.9 Active 60550524 Problem MRSA (methicillin resistant staph aureus) culture positive Z22.322 Active 598000504 Problem Epilepsy G40.909 Active 82453211 Problem Generalized anxiety disorder F41.1 Active 534562484 Problem Interstitial cystitis N30.10 Active 396436963 Problem Esophageal reflux K21.9 Active 287049895 Problem Major depressive disorder F32.9 Active 076855108 Problem Lumbago M54.5 Active 026177274 ALLERGIES No Information ENCOUNTERS Encounter Location Date Diagnosis [facility] [address] [facility] [id number] [address] Nov, [facility] [address] [facility] [id number] [place] [address] Oct, [facility] [address] [id number] [id number] Oct, [facility] [address] [facility] [id number] [place] [address] Oct, [facility] [id number] [place] [address] Sep, [facility] [address] [address] Sep, [facility] [id number] [place] [address] Sep, [facility] [address] [id number] Aug, Dental examination Z01.20 [facility] [id number] [place] [address] Aug, Abscess of axilla, left L02.412 [place] [address] [address] Aug, Esophageal reflux K21.9 [place] [address] [address] Aug, [facility] [address] [address] Aug, Esophageal reflux K21.9 ; Fluid level behind tympanic membrane of right ear H65.91 ; Fibromyalgia M79.7 and Lumbago M54.5 [facility] [id number] [place] [address] Aug, Esophageal reflux K21.9 [facility] [id number] [place] [address] July, [facility] [id number] [place] [address] July, [facility] [address] [address] July, Chronic obstructive pulmonary disease, unspecified COPD type J44.9 [facility] [id number] [place] [address] July, [facility] [id number] [place] [address] July, [place] [id number] [place] [address] July, Interstitial cystitis N30.10 ; Fibromyalgia M79.7 [...] Dysuria R30.0 and Generalized anxiety disorder F41.1 [place] [address] [address] Jun, [place] [address] [id number] [place] [address] Jun, Chronic obstructive pulmonary disease, unspecified COPD type J44.9 ; COPD exacerbation J44.1 and Sore throat J02.9 [place] [id number] [place] [address] Jun, Fibromyalgia M79.7 [place] [id number] [place] [address] Jun, Fibromyalgia M79.7 [place] [id number] [place] [address] May, [place] [id number] [place] [address] May, [place] [id number] [place] [address] May, Fibromyalgia M79.7 [facility] [id number] [place] [address] Mar, [place] [id number] [place] [address] Mar, Epilepsy G40.909 ; Lumbago M54.5 ; Esophageal reflux K21.9 ; Fibromyalgia M79.7 ; Chronic obstructive pulmonary disease, unspecified COPD type J44.9 ; Vitamin D deficiency E55.9 ; Fluid level behind tympanic membrane of right ear H65.91 ; Irritable bowel syndrome with diarrhea K58.0 ; Hematochezia K92.1 and Generalized anxiety disorder F41.1 [facility] [id number] [place] [address] Mar, [facility] [address] [address] Mar, [facility] [address] [address] Mar, Vitamin D deficiency E55.9 [facility] [id number] [place] [address] Feb, [facility] [address] [address] Feb, [facility] [id number] [place] [address] Jan, Fibromyalgia M79.7 [facility] [address] [address] Jan, [facility] [id number] [place] [address] Jan, [facility] [id number] [place] [address] Jan, Vitamin D deficiency E55.9 [facility] [id number] [place] [address] Dec, [facility] [id number] [place] [address] Dec, [facility] [id number] [place] [address] Dec, Generalized anxiety disorder F41.1 [place] [id number] [place] [address] Dec, Dysuria R30.0 ; Acute bilateral low back pain without sciatica M54.5 and Encounter for immunization Z23 [place] [id number] [place] [address] Oct, [place] [address] [address] Oct, Fibromyalgia M79.7 [place] [address] [address] Sep, Dysuria R30.0 and Acute bronchitis, unspecified organism J20.9 [place] [id number] [place] [address] Sep, [place] [address] [address] Sep, Rectal prolapse K62.3 [place] [id number] [place] [address] Sep, Chronic obstructive pulmonary disease, unspecified COPD type J44.9 [place] [address] [place] [id number] [place] [id number] Aug, [place] [address] [id number] Aug, [place] [id number] [place] [address] Aug, Light headedness R42 ; On antiepileptic therapy Z79.899 ; Vitamin D deficiency E55.9 ; Screening for lipid disorders Z13.220 ; Dysuria R30.0 and Hemorrhoids, unspecified hemorrhoid type K64.9 [place] [id number] [place] [address] Aug, Internal prolapsed hemorrhoids K64.8 [place] [id number] [place] [address] July, [place] [address] [id number] [place] [address] May, [address] [address] May, Fever and chills R50.9 and Influenza B J10.[address] [address] Apr, [address] [address] Apr, Fibromyalgia M79.7 and Generalized anxiety disorder F41.[address] [address] Mar, Esophageal reflux K21.9 ; Generalized anxiety disorder F41.1 and Epilepsy G40.[address] [address] Mar, Epilepsy G40.909 ; Esophageal reflux K21.9 ; Fibromyalgia M79.7 ; Generalized anxiety disorder F41.1 ; Pain of left foot M79.672 ; Pain in right foot M79.671 ; Ear pain, right H92.01 ; Tinnitus of both ears H93.13 ; Chronic obstructive pulmonary disease, unspecified COPD type J44.9 ; Vitamin D deficiency E55.9 ; Screening for lipid disorders Z13.220 and On antiepileptic therapy Z79.899 [place] [id number] [place] [address] Feb, [place] [id number] [place] [address] Feb, [facility] [place] [address] [address] Feb, Dysuria R30.0 and Plantar fasciitis of right foot M72.[address] [address] Feb, [facility] [address] [place] [address] Feb, [facility] [id number] [place] [address] Jan, [facility] [id number] [place] [address] Jan, [facility] [id number] [place] [address] Dec, [facility] [id number] [place] [address] Dec, [facility] [id number] [place] [address] Dec, [facility] [id number] [place] [address] Nov, [facility] [id number] [place] [address] Sep, [facility] [id number] [place] [address] Aug, Shortness of breath R06.02 and Acute suppurative otitis media of right ear without spontaneous rupture of tympanic membrane, recurrence not specified H66.001 [place] [address] [address] [id number] [place] [address] 14 Aug, 2015 Internal prolapsed hemorrhoids K64.8 [facility] [id number] [place] [address] Jun, 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 [place] [address] [id number] [place] [address] May, Fibromyalgia M79.7 ; Interstitial cystitis N30.10 ; Intractable migraine without aura and without status migrainosus G43.019 ; Low vitamin D level E55.9 and Ringing in right ear H93.11 [facility] [id number] [place] [address] May, [facility] [address] [address] May, Low vitamin D level E55.9 [facility] [address] [address] Apr, [facility] [address] [address] Mar, [facility] [address] [address] Mar, Acute suppurative otitis media of right ear without spontaneous rupture of tympanic membrane, recurrence not specified H66.001 ; Encounter for immunization Z23 ; Asthma with acute exacerbation, unspecified asthma severity J45.901 ; Memory problem R41.3 ; Acute pain of right knee M25.561 ; Chronic fatigue R53.82 and Excessive urinary volume R35.8 [facility] [address] [address] Feb, [facility] [address] [address] Feb, [facility] [address] [address] Jan, [facility] [address] [address] 17 Nov, 2014 Esophageal reflux 530.81 ; Anxiety 300.00 and Tingling in extremities 782.0 [facility] [address] [address] Oct, [facility] [address] [address] Oct, [facility] [address] [address] Oct, [facility] [address] [address] Oct, [facility] [address] [address] Oct, [facility] [id number] [place] [address] Sep, Other chronic allergic conjunctivitis 372.14 ; Irritable bowel syndrome 564.1 ; 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 ; Fibromyalgia 729.1 ; Extremity pain 729.5 and Neck pain 723.1 [facility] [address] [address] Sep, [facility] [id number] [place] [address] Aug, [facility] [id number] [place] [address] Aug, [facility] [id number] [place] [address] July, Vomiting 787.03 [facility] [id number] [place] [id number] July, Dental examination V72.2 [facility] [address] [address] Jun, [facility] [address] [address] Jun, [facility] [address] [address] May, [facility] [address] [address] May, [facility] [id number] [place] [address] May, [facility] [address] [address] May, [facility] [id number] [place] [address] 05 May, 2014 [facility] [place] [facility] [address] [id number] [place] [address] May, [facility] [place] [facility] [address] [id number] [place] [address] May, [facility] [place] [facility] [address] [facility] [id number] [place] [address] May, [facility] [place] [facility] [address] [id number] [place] [address] May, [facility] [place] [facility] [address] [id number] [place] [address] Apr, 2014 [facility] [place] [facility] [address] [id number] [place] [address] Apr, 2014 [facility] [place] [facility] [address] [facility] [id number] [place] [address] Apr, 2014 [facility] [place] [facility] [address] [facility] [id number] [place] [address] Apr, [facility] [place] [facility] [address] [facility] [id number] [place] [address] Apr, [facility] [place] [facility] [address] [facility] [id number] [place] [address] Apr, [facility] [place] [facility] [address] [facility] [id number] [place] [address] Mar, [facility] [place] [facility] [address] [id number] [place] [address] Mar, [facility] [place] [facility] [address] [id number] [place] [address] Mar, [facility] [place] [facility] [address] [facility] [id number] [place] [address] Mar, [facility] [place] [facility] [address] [id number] [place] [address] Mar, [facility] [place] [facility] [address] [id number] [place] [address] Mar, [facility] [place] [facility] [address] [id number] [place] [address] Mar, [facility] [place] [facility] [address] [id number] [place] [address] Mar, [facility] [place] [facility] [address] [id number] [place] [address] Mar, [facility] [address] [id number] [place] [address] Mar, [facility] [place] [facility] [address] [id number] [place] [address] Mar, [facility] [address] [id number] [place] [address] Mar, [facility] [address] [id number] [place] [address] Mar, [facility] [place] [facility] [address] [id number] [place] [address] Mar, [facility] [place] [facility] [address] [id number] [place] [address] Mar, [facility] [place] [facility] [address] [id number] [place] [address] Mar, [facility] [place] [facility] [address] [id number] [address] Mar, [facility] [place] [facility] [address] [id number] [place] [address] Mar, [facility] [place] [facility] [address] [id number] [place] [address] Mar, [facility] [place] [facility] [address] [id number] [place] [address] Feb, [facility] [place] [facility] [address] [id number] [address] 18 Feb, 2014 [facility] [place] [facility] [address] [id number] [place] [address] Feb, [facility] [place] [facility] [address] [id number] [place] [address] Feb, [facility] [place] [facility] [address] [id number] [place] [address] Jan, [facility] [place] [facility] [address] [id number] [place] [address] Jan, [facility] [place] [facility] [address] [id number] [place] [address] Jan, [facility] [place] [facility] [address] [id number] [place] [address] Jan, [facility] [place] [facility] [address] [id number] [place] [address] Jan, [facility] [place] [facility] [address] [id number] [place] [address] Jan, [facility] [place] [facility] [address] [id number] [place] [address] Jan, [facility] [place] [facility] [address] [id number] [place] [address] Jan, [facility] [place] [facility] [address] [id number] [place] [address] Dec, [facility] [place] [facility] [address] [id number] [place] [address] Dec, [facility] [place] [facility] [address] [id number] [place] [address] 17 Dec, 2013 [facility] [place] [facility] [address] [id number] [place] [address] Dec, [facility] [place] [facility] [address] [id number] [place] [address] Nov, [facility] [place] [facility] [address] [id number] [place] [address] 22 Nov, 2013 [facility] [place] [facility] [address] [id number] [place] [address] 08 Nov, 2013 [facility] [place] [facility] [address] [id number] [place] [address] 08 Nov, 2013 [facility] [place] [facility] [address] [id number] [place] [address] 05 Sep, 2013 [facility] [place] [facility] [address] [id number] [place] [address] 05 Nov, 2013 [facility] [place] [facility] [address] [id number] [place] [address] 04 Nov, 2013 [facility] [place] [facility] [address] [id number] [place] [address] 04 Nov, 2013 [facility] [place] [facility] [address] [id number] [place] [address] Nov, 2013 [facility] [place] [facility] [address] [id number] [place] [address] Nov, 2013 [facility] [place] [facility] [address] [id number] [place] [address] Oct, [facility] [place] [facility] [address] [id number] [place] [address] Oct, [facility] [place] [facility] [address] [id number] [place] [address] Sep, [facility] [place] [facility] [address] [id number] [place] [address] Sep, [facility] [place] [facility] [address] [id number] [place] [address] Sep, [facility] [place] [facility] [address] [id number] [place] [address] Sep, [facility] [place] [facility] [address] [id number] [place] [address] Sep, [facility] [place] [facility] [address] [id number] [place] [address] Sep, [facility] [place] [facility] [address] [id number] [place] [address] Aug, [facility] [place] [facility] [address] [id number] [place] [address] Aug, [facility] [place] [facility] [address] [id number] [place] [address] Aug, [facility] [place] [facility] [address] [id number] [place] [address] Aug, [facility] [place] [facility] [address] [id number] [place] [address] Aug, [facility] [place] [facility] [address] [id number] [place] [address] Aug, [facility] [place] [facility] [address] [id number] [place] [address] July, [facility] [place] [facility] [address] [id number] [place] [address] July, [facility] [place] [facility] [address] [id number] [place] [address] July, [facility] [place] [facility] [address] [id number] [place] [address] July, [facility] [place] [facility] [address] [id number] [place] [address] July, [facility] [place] [facility] [address] [id number] [place] [address] July, [facility] [place] [facility] [address] [id number] [place] [address] Jun, [facility] [place] [facility] [address] [id number] [place] [address] Jun, [facility] [place] [facility] [address] [id number] [place] [address] Jun, [facility] [place] [facility] [address] [id number] [place] [address] Jun, [facility] [place] [facility] [address] [id number] [place] [address] May, [facility] [place] [facility] [address] [id number] [place] [address] May, [facility] [place] [facility] [address] [id number] [place] [address] Apr, [facility] [place] [facility] [address] [id number] [place] [address] Apr, [facility] [place] [facility] [address] [id number] [place] [address] Apr, [facility] [place] [facility] [address] [id number] [place] [address] Apr, [facility] [place] [facility] [address] [id number] [place] [address] Mar, [facility] [place] [facility] [address] [id number] [place] [address] Mar, [facility] [place] [facility] [address] [id number] [place] [address] Mar, [facility] [place] [facility] [address] [id number] [place] [address] Mar, [facility] [place] [facility] [address] [id number] [address] Mar, [facility] [place] [facility] [address] [id number] [place] [address] Mar, [facility] [place] [facility] [address] [id number] [place] [address] Feb, [facility] [place] [facility] [address] [id number] [place] [address] Feb, [facility] [place] [facility] [address] [id number] [place] [address] Jan, [facility] [place] [facility] [address] [id number] [place] [address] Jan, [facility] [place] [facility] [address] [id number] [place] [address] Jan, [facility] [place] [facility] [address] [id number] [place] [address] Jan, [facility] [address] [id number] [place] [address] Nov, [facility] [place] [facility] [address] [id number] [place] [address] Nov, [facility] [address] [id number] [place] [address] Oct, [facility] [place] [facility] [address] [id number] [place] [address] Oct, [facility] [place] [facility] [address] [id number] [place] [address] Sep, [facility] [place] [facility] [address] [id number] [place] [address] Sep, [facility] [place] [facility] [address] [id number] [place] [address] Sep, [facility] [place] [facility] [address] [id number] [address] Aug, [facility] [place] [facility] [address] [id number] [place] [address] Aug, [facility] [place] [facility] [address] [id number] [place] [address] Aug, [facility] [place] [facility] [address] [id number] [place] [address] Aug, [facility] [place] [facility] [address] [id number] [address] July, [facility] [address] [id number] [place] [address] July, [facility] [address] [id number] [place] [address] July, [facility] [address] [id number] [place] [address] July, [facility] [address] [id number] [place] [address] Jun, [facility] [address] [id number] [place] [address] Jun, [facility] [address] [id number] [place] [address] Jun, [facility] [facility] [address] [id number] [place] [address] May, [facility] [address] [id number] [place] [address] May, [facility] [address] [id number] [place] [address] Apr, [facility] [address] [id number] [place] [address] Apr, [facility] [address] [id number] [place] [address] Apr, [facility] [place] [facility] [address] [id number] [place] [address] Apr, [facility] [place] [facility] [address] [id number] [place] [address] Mar, [facility] [place] [facility] [address] [id number] [place] [address] Mar, [facility] [place] [facility] [address] [id number] [place] [address] Mar, [facility] [place] [facility] [address] [id number] [place] [address] 02 Mar, 2012 [facility] [place] [facility] [address] [id number] [place] [address] 11 Feb, 2012 [facility] [place] [facility] [address] [id number] [place] [address] Feb, [facility] [place] [facility] [address] [id number] [place] [address] Feb, [facility] [place] [facility] [address] [id number] [place] [address] Feb, [facility] [place] [facility] [address] [id number] [place] [address] Feb, [facility] [place] [facility] [address] [id number] [place] [address] Feb, [facility] [place] [facility] [address] [id number] [place] [address] Feb, [facility] [place] [facility] [address] [id number] [place] [address] Feb, [facility] [place] [facility] [address] [id number] [place] [address] 28 Jan, 2012 [facility] [place] [facility] [address] [id number] [place] [address] 28 Jan, 2012 [facility] [place] [facility] [address] [id number] [place] [address] 15 Jan, 2012 [facility] [place] [facility] [address] [id number] [place] [address] 15 Jan, 2012 [facility] [place] [facility] [address] [id number] [place] [address] 14 Jan, 2012 [facility] [place] [facility] [address] [id number] [place] [address] 13 Jan, 2012 [facility] [place] [facility] [address] [id number] [place] [address] Jan, [facility] [place] [facility] [address] [id number] [place] [address] Jan, [facility] [place] [facility] [address] [id number] [place] [address] Jan, [facility] [place] [facility] [address] [facility] [id number] [place] [address] Jan, [facility] [place] [facility] [address] [id number] [place] [address] Jan, [facility] [place] [facility] [address] [id number] [place] [address] Dec, [facility] [place] [facility] [address] [id number] [place] [address] Dec, [facility] [place] [facility] [address] [id number] [place] [address] Dec, [facility] [place] [facility] [address] [id number] [place] [address] Dec, [facility] [place] [facility] [address] [id number] [place] [address] Dec, [facility] [place] [facility] [address] [facility] [id number] [place] [address] Dec, [facility] [place] [facility] [address] [id number] [place] [address] Dec, [facility] [place] [facility] [address] [id number] [place] [address] Dec, [facility] [place] [facility] [address] [id number] [place] [address] 15 Dec, 2011 [facility] [place] [facility] [address] [facility] [id number] [place] [address] 15 Dec, 2011 [facility] [place] [facility] [address] [facility] [id number] [place] [address] Dec, [facility] [place] [facility] [address] [id number] [place] [address] Dec, [facility] [place] [facility] [address] [id number] [place] [address] Nov, [facility] [place] [facility] [address] [id number] [place] [address] Oct, [facility] [place] [facility] [address] [id number] [place] [address] Oct, [facility] [place] [facility] [address] [id number] [place] [address] Oct, [facility] [place] [facility] [address] [id number] [place] [address] Oct, [facility] [place] [facility] [address] [id number] [place] [address] Sep, [facility] [place] [facility] [address] [id number] [place] [address] Sep, [facility] [place] [facility] [address] [id number] [place] [address] Sep, [facility] [place] [facility] [address] [id number] [place] [address] Sep, [facility] [place] [facility] [address] [id number] [place] [address] Aug, [facility] [place] [facility] [address] [id number] [place] [address] Aug, [facility] [place] [facility] [address] [id number] [place] [address] Aug, [facility] [place] [facility] [address] [id number] [place] [address] Aug, [facility] [place] [facility] [address] [id number] [place] [address] Aug, [facility] [place] [facility] [address] [id number] [place] [address] July, [facility] [address] [facility] [id number] [place] [address] July, [facility] [address] [facility] [id number] [place] [address] July, [facility] [address] [facility] [id number] [place] [address] Dec, IMMUNIZATIONS No Known Immunizations SOCIAL HISTORY Never Assessed REASON FOR VISIT Refill Request PLAN OF CARE VITAL SIGNS MEDICATIONS Medication Instructions Dosage Frequency Start Date End Date Duration Status Protonix 40 MG Orally Once a day 1 tablet 24h Feb, 90 days Active RESULTS No Results PROCEDURES No [...]
--- OUTSIDE RECORDS SUMMARY | 2018-10-24 12:24 | XMS REPORT ---
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 Name Role Phone NELSONPRADEEP BURGOSHANY Unavailable PROBLEMS Type Condition ICD9-CM Code [id number] Code Onset Dates Condition Status SNOMED Code Problem Fibromyalgia M79.7 Active 90686559 Problem Tinnitus of both ears H93.13 Active 5560758903429 Problem Irritable bowel syndrome without diarrhea K58.9 Active 55228420 Problem COPD exacerbation J44.1 Active 556658659 Problem Menopausal symptoms N95.1 Active 06625292 Problem On antiepileptic therapy Z79.899 Active 217196194 Problem Chronic obstructive pulmonary disease, unspecified COPD type J44.9 Active 42667858 Problem Irritable bowel syndrome with diarrhea K58.0 Active 102467605 Problem Vitamin D deficiency E55.9 Active 42757580 Problem MRSA (methicillin resistant staph aureus) culture positive Z22.322 Active 556959963 Problem Epilepsy G40.909 Active 00534577 Problem Generalized anxiety disorder F41.1 Active 371917277 Problem Interstitial cystitis N30.10 Active 835388616 Problem Esophageal reflux K21.9 Active 038369464 Problem Major depressive disorder F32.9 Active 510374624 Problem Lumbago M54.5 Active 455617166 ALLERGIES No Information ENCOUNTERS Encounter Location Date Diagnosis [facility] [address] [facility] [id number], [place] [address] Nov, [facility] [address] [facility] [id number], [place] [address] Oct, [facility] [address] [id number] [id number] Oct, [facility] [address] [facility] [id number], [place] [address] Oct, [facility] [id number] [place] [address] Sep, [facility] [address] [address] Sep, [facility] [id number] [place] [address] Sep, [facility] [address] [id number] Aug, Dental examination Z01.20 [facility] [id number] [place] [address] Aug, Abscess of axilla, left L02.412 [place] [address] [address] Aug, Esophageal reflux K21.9 [place] [address] [address] Aug, [facility] [address] [address] Aug, Esophageal reflux K21.9 ; Fluid level behind tympanic membrane of right ear H65.91 ; Fibromyalgia M79.7 and Lumbago M54.5 [facility] [id number] [place] [address] Aug, Esophageal reflux K21.9 [facility] [id number] [place] [address] July, [facility] [id number] [place] [address] July, [facility] [address] [address] July, Chronic obstructive pulmonary disease, unspecified COPD type J44.9 [facility] [id number] [place] [address] July, [facility] [id number] [place] [address] July, [place] [id number] [place] [address] July, Interstitial cystitis N30.10 ; Fibromyalgia M79.7 [...] Dysuria R30.0 and Generalized anxiety disorder F41.1 [place] [address] [address] Jun, [place] [id number] [place] [address] Jun, Chronic obstructive pulmonary disease, unspecified COPD type J44.9 ; COPD exacerbation J44.1 and Sore throat J02.9 [place] [id number] [place] [address] Jun, Fibromyalgia M79.7 [place] [id number] [place] [address] Jun, Fibromyalgia M79.7 [place] [id number] [place] [address] May, [place] [id number] [place] [address] May, [place] [id number] [place] [address] May, Fibromyalgia M79.7 [facility] [id number] [place] [address] Mar, [place] [id number] [place] [address] Mar, Epilepsy G40.909 ; Lumbago M54.5 ; Esophageal reflux K21.9 ; Fibromyalgia M79.7 ; Chronic obstructive pulmonary disease, unspecified COPD type J44.9 ; Vitamin D deficiency E55.9 ; Fluid level behind tympanic membrane of right ear H65.91 ; Irritable bowel syndrome with diarrhea K58.0 ; Hematochezia K92.1 and Generalized anxiety disorder F41.1 [facility] [id number] [place] [address] Mar, [facility] [address] [address] Mar, [facility] [address] [address] Mar, Vitamin D deficiency E55.9 [facility] [id number] [place] [address] Feb, [facility] [address] [address] Feb, [facility] [id number] [place] [address] Jan, Fibromyalgia M79.7 [facility] [address] [address] Jan, [facility] [id number] [place] [address] Jan, [facility] [id number] [place] [address] Jan, Vitamin D deficiency E55.9 [facility] [id number] [place] [address] Dec, [facility] [id number] [place] [address] Dec, [facility] [id number] [place] [address] Dec, Generalized anxiety disorder F41.1 [place] [id number] [place] [address] Dec, Dysuria R30.0 ; Acute bilateral low back pain without sciatica M54.5 and Encounter for immunization Z23 [place] [id number] [place] [address] Oct, [place] [address] [address] Oct, Fibromyalgia M79.7 [place] [address] [address] Sep, Dysuria R30.0 and Acute bronchitis, unspecified organism J20.9 [place] [id number] [place] [address] Sep, [place] [address] [address] Sep, Rectal prolapse K62.3 [place] [id number] [place] [address] Sep, Chronic obstructive pulmonary disease, unspecified COPD type J44.9 [place] [address] [place] [id number] [place] [id number] Aug, [place] [address] [id number] Aug, [place] [id number] [place] [address] Aug, Light headedness R42 ; On antiepileptic therapy Z79.899 ; Vitamin D deficiency E55.9 ; Screening for lipid disorders Z13.220 ; Dysuria R30.0 and Hemorrhoids, unspecified hemorrhoid type K64.9 [place] [id number] [place] [address] Aug, Internal prolapsed hemorrhoids K64.8 [place] [id number] [place] [address] July, [place] [id number] [place] [address] May, [address] [address] May, Fever and chills R50.9 and Influenza B J10.[address] [address] Apr, [address] [address] Apr, Fibromyalgia M79.7 and Generalized anxiety disorder F41.[address] [address] Mar, Esophageal reflux K21.9 ; Generalized anxiety disorder F41.1 and Epilepsy G40.[address] [address] Mar, Epilepsy G40.909 ; Esophageal reflux K21.9 ; Fibromyalgia M79.7 ; Generalized anxiety disorder F41.1 ; Pain of left foot M79.672 ; Pain in right foot M79.671 ; Ear pain, right H92.01 ; Tinnitus of both ears H93.13 ; Chronic obstructive pulmonary disease, unspecified COPD type J44.9 ; Vitamin D deficiency E55.9 ; Screening for lipid disorders Z13.220 and On antiepileptic therapy Z79.899 [place] [id number] [place] [address] Feb, [place] [id number] [place] [address] Feb, [facility] [place] [address] [address] Feb, Dysuria R30.0 and Plantar fasciitis of right foot M72.[address] [address] Feb, [facility] [id number] [place] [address] Feb, [facility] [id number] [place] [address] Jan, [facility] [id number] [place] [address] Jan, [facility] [id number] [place] [address] Dec, [facility] [id number] [place] [address] Dec, [facility] [id number] [place] [address] Dec, [facility] [id number] [place] [address] Nov, [facility] [id number] [place] [address] Sep, [facility] [id number] [place] [address] Aug, Shortness of breath R06.02 and Acute suppurative otitis media of right ear without spontaneous rupture of tympanic membrane, recurrence not specified H66.001 [place] [id number] [place] [address] 14 Aug, 2015 Internal prolapsed hemorrhoids K64.8 [facility] [id number] [place] [address] Jun, 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 [place] [id number] [place] [address] May, Fibromyalgia M79.7 ; Interstitial cystitis N30.10 ; Intractable migraine without aura and without status migrainosus G43.019 ; Low vitamin D level E55.9 and Ringing in right ear H93.11 [facility] [id number] [place] [address] May, [facility] [address] [address] May, Low vitamin D level E55.9 [facility] [address] [address] Apr, [facility] [address] [address] Mar, [facility] [address] [address] Mar, Acute suppurative otitis media of right ear without spontaneous rupture of tympanic membrane, recurrence not specified H66.001 ; Encounter for immunization Z23 ; Asthma with acute exacerbation, unspecified asthma severity J45.901 ; Memory problem R41.3 ; Acute pain of right knee M25.561 ; Chronic fatigue R53.82 and Excessive urinary volume R35.8 [facility] [address] [address] Feb, [facility] [address] [address] Feb, [facility] [address] [address] Jan, [facility] [address] [address] 17 Nov, 2014 Esophageal reflux 530.81 ; Anxiety 300.00 and Tingling in extremities 782.0 [facility] [address] [address] Oct, [facility] [address] [address] Oct, [facility] [address] [address] Oct, [facility] [address] [address] Oct, [facility] [address] [address] Oct, [facility] [id number] [place] [address] Sep, Other chronic allergic conjunctivitis 372.14 ; Irritable bowel syndrome 564.1 ; 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 ; Fibromyalgia 729.1 ; Extremity pain 729.5 and Neck pain 723.1 [facility] [address], [place] [address] Sep, [facility] [id number] [place] [address] Aug, [facility] [id number] [place] [address] Aug, [facility] [id number] [place] [address] July, Vomiting 787.03 [facility] [id number] [place] [id number] July, Dental examination V72.2 [facility] [address], [place] [address] Jun, [facility] [address], [place] [address] Jun, [facility] [address], [place] [address] May, [facility] [address], [place] [address] May, [facility] [id number] [place] [address] May, [facility] [address], [place] [address] May, [facility] [id number] [place] [address] 05 May, 2014 [facility] [place] [facility] [address] [id number] [place] [address] May, [facility] [place] [facility] [address] [id number] [place] [address] May, [facility] [place] [facility] [address] [facility] [id number] [place] [address] May, [facility] [place] [facility] [address] [id number] [place] [address] May, [facility] [place] [facility] [address] [id number] [place] [address] Apr, 2014 [facility] [place] [facility] [address] [id number] [place] [address] Apr, 2014 [facility] [place] [facility] [address] [facility] [id number] [place] [address] Apr, 2014 [facility] [place] [facility] [address] [facility] [id number] [place] [address] Apr, [facility] [place] [facility] [address] [facility] [id number] [place] [address] Apr, [facility] [place] [facility] [address] [facility] [id number] [place] [address] Apr, [facility] [place] [facility] [address] [facility] [id number] [place] [address] Mar, [facility] [place] [facility] [address] [id number] [place] [address] Mar, [facility] [place] [facility] [address] [id number] [place] [address] Mar, [facility] [place] [facility] [address] [facility] [id number] [place] [address] Mar, [facility] [place] [facility] [address] [id number] [place] [address] Mar, [facility] [place] [facility] [address] [id number] [place] [address] Mar, [facility] [place] [facility] [address] [id number] [place] [address] Mar, [facility] [place] [facility] [address] [id number] [place] [address] Mar, [facility] [place] [facility] [address] [id number] [place] [address] Mar, [facility] [address] [id number] [place] [address] Mar, [facility] [place] [facility] [address] [id number] [place] [address] Mar, [facility] [address] [id number] [place] [address] Mar, [facility] [address] [id number] [place] [address] Mar, [facility] [place] [facility] [address] [id number] [place] [address] Mar, [facility] [place] [facility] [address] [id number] [place] [address] Mar, [facility] [place] [facility] [address] [id number] [place] [address] Mar, [facility] [place] [facility] [address] [id number], [place] [address] Mar, [facility] [place] [facility] [address] [id number] [place] [address] Mar, [facility] [place] [facility] [address] [id number] [place] [address] Mar, [facility] [place] [facility] [address] [id number] [place] [address] Feb, [facility] [place] [facility] [address] [id number], [place] [address] 18 Feb, 2014 [facility] [place] [facility] [address] [id number] [place] [address] Feb, [facility] [place] [facility] [address] [id number] [place] [address] Feb, [facility] [place] [facility] [address] [id number] [place] [address] Jan, [facility] [place] [facility] [address] [id number] [place] [address] Jan, [facility] [place] [facility] [address] [id number] [place] [address] Jan, [facility] [place] [facility] [address] [id number] [place] [address] Jan, [facility] [place] [facility] [address] [id number] [place] [address] Jan, [facility] [place] [facility] [address] [id number] [place] [address] Jan, [facility] [place] [facility] [address] [id number] [place] [address] Jan, [facility] [place] [facility] [address] [id number] [place] [address] Jan, [facility] [place] [facility] [address] [id number] [place] [address] Dec, [facility] [place] [facility] [address] [id number] [place] [address] Dec, [facility] [place] [facility] [address] [id number] [place] [address] 17 Dec, 2013 [facility] [place] [facility] [address] [id number] [place] [address] Dec, [facility] [place] [facility] [address] [id number] [place] [address] Nov, [facility] [place] [facility] [address] [id number] [place] [address] 22 Nov, 2013 [facility] [place] [facility] [address] [id number] [place] [address] 08 Nov, 2013 [facility] [place] [facility] [address] [id number] [place] [address] 08 Nov, 2013 [facility] [place] [facility] [address] [id number] [place] [address] 05 Sep, 2013 [facility] [place] [facility] [address] [id number] [place] [address] 05 Nov, 2013 [facility] [place] [facility] [address] [id number] [place] [address] 04 Nov, 2013 [facility] [place] [facility] [address] [id number] [place] [address] 04 Nov, 2013 [facility] [place] [facility] [address] [id number] [place] [address] Nov, 2013 [facility] [place] [facility] [address] [id number] [place] [address] Nov, 2013 [facility] [place] [facility] [address] [id number] [place] [address] Oct, [facility] [place] [facility] [address] [id number] [place] [address] Oct, [facility] [place] [facility] [address] [id number] [place] [address] Sep, [facility] [place] [facility] [address] [id number] [place] [address] Sep, [facility] [place] [facility] [address] [id number] [place] [address] Sep, [facility] [place] [facility] [address] [id number] [place] [address] Sep, [facility] [place] [facility] [address] [id number] [place] [address] Sep, [facility] [place] [facility] [address] [id number] [place] [address] Sep, [facility] [place] [facility] [address] [id number] [place] [address] Aug, [facility] [place] [facility] [address] [id number] [place] [address] Aug, [facility] [place] [facility] [address] [id number] [place] [address] Aug, [facility] [place] [facility] [address] [id number] [place] [address] Aug, [facility] [place] [facility] [address] [id number] [place] [address] Aug, [facility] [place] [facility] [address] [id number] [place] [address] Aug, [facility] [place] [facility] [address] [id number] [place] [address] July, [facility] [place] [facility] [address] [id number] [place] [address] July, [facility] [place] [facility] [address] [id number] [place] [address] July, [facility] [place] [facility] [address] [id number] [place] [address] July, [facility] [place] [facility] [address] [id number] [place] [address] July, [facility] [place] [facility] [address] [id number] [place] [address] July, [facility] [place] [facility] [address] [id number] [place] [address] Jun, [facility] [place] [facility] [address] [id number] [place] [address] Jun, [facility] [place] [facility] [address] [id number] [place] [address] Jun, [facility] [place] [facility] [address] [id number] [place] [address] Jun, [facility] [place] [facility] [address] [id number] [place] [address] May, [facility] [place] [facility] [address] [id number] [place] [address] May, [facility] [place] [facility] [address] [id number] [place] [address] Apr, [facility] [place] [facility] [address] [id number] [place] [address] Apr, [facility] [place] [facility] [address] [id number] [place] [address] Apr, [facility] [place] [facility] [address] [id number] [place] [address] Apr, [facility] [place] [facility] [address] [id number] [place] [address] Mar, [facility] [place] [facility] [address] [id number] [place] [address] Mar, [facility] [place] [facility] [address] [id number] [place] [address] Mar, [facility] [place] [facility] [address] [id number] [place] [address] Mar, [facility] [place] [facility] [address] [id number], [place] [address] Mar, [facility] [place] [facility] [address] [id number] [place] [address] Mar, [facility] [place] [facility] [address] [id number] [place] [address] Feb, [facility] [place] [facility] [address] [id number] [place] [address] Feb, [facility] [place] [facility] [address] [id number] [place] [address] Jan, [facility] [place] [facility] [address] [id number] [place] [address] Jan, [facility] [place] [facility] [address] [id number] [place] [address] Jan, [facility] [place] [facility] [address] [id number] [place] [address] Jan, [facility] [address] [id number] [place] [address] Nov, [facility] [place] [facility] [address] [id number] [place] [address] Nov, [facility] [address] [id number] [place] [address] Oct, [facility] [place] [facility] [address] [id number] [place] [address] Oct, [facility] [place] [facility] [address] [id number] [place] [address] Sep, [facility] [place] [facility] [address] [id number] [place] [address] Sep, [facility] [place] [facility] [address] [id number] [place] [address] Sep, [facility] [place] [facility] [address] [id number], [place] [address] Aug, [facility] [place] [facility] [address] [id number] [place] [address] Aug, [facility] [place] [facility] [address] [id number] [place] [address] Aug, [facility] [place] [facility] [address] [id number] [place] [address] Aug, [facility] [place] [facility] [address] [id number], [place] [address] July, [facility] [address] [id number] [place] [address] July, [facility] [address] [id number] [place] [address] July, [facility] [address] [id number] [place] [address] July, [facility] [address] [id number] [place] [address] Jun, [facility] [address] [id number] [place] [address] Jun, [facility] [address] [id number] [place] [address] Jun, [facility] [address] [id number] [place] [address] May, [facility] [address] [id number] [place] [address] May, [facility] [address] [id number] [place] [address] Apr, [facility] [address] [id number], [place] [address] Apr, [facility] [address] [id number], [place] [address] Apr, [facility] [place] [facility] [address] [id number], [place] [address] Apr, [facility] [place] [facility] [address] [id number] [place] [address] Mar, [facility] [place] [facility] [address] [id number] [place] [address] Mar, [facility] [place] [facility] [address] [id number], [place] [address] Mar, [facility] [place] [facility] [address] [id number] [place] [address] 02 Mar, 2012 [facility] [place] [facility] [address] [id number] [place] [address] 11 Feb, 2012 [facility] [place] [facility] [address] [id number] [place] [address] Feb, [facility] [place] [facility] [address] [id number] [place] [address] Feb, [facility] [place] [facility] [address] [id number] [place] [address] Feb, [facility] [place] [facility] [address] [id number] [place] [address] Feb, [facility] [place] [facility] [address] [id number] [place] [address] Feb, [facility] [place] [facility] [address] [id number] [place] [address] Feb, [facility] [place] [facility] [address] [id number] [place] [address] Feb, [facility] [place] [facility] [address] [id number] [place] [address] 28 Jan, 2012 [facility] [place] [facility] [address] [id number] [place] [address] 28 Jan, 2012 [facility] [place] [facility] [address] [id number] [place] [address] 15 Jan, 2012 [facility] [place] [facility] [address] [id number] [place] [address] 15 Jan, 2012 [facility] [place] [facility] [address] [id number] [place] [address] 14 Jan, 2012 [facility] [place] [facility] [address] [id number] [place] [address] 13 Jan, 2012 [facility] [place] [facility] [address] [id number] [place] [address] Jan, [facility] [place] [facility] [address] [id number] [place] [address] Jan, [facility] [place] [facility] [address] [id number], [place] [address] Jan, [facility] [place] [facility] [address] [facility] [id number] [place] [address] Jan, [facility] [place] [facility] [address] [id number], [place] [address] Jan, [facility] [place] [facility] [address] [id number] [place] [address] Dec, [facility] [place] [facility] [address] [id number], [place] [address] Dec, [facility] [place] [facility] [address] [id number], [place] [address] Dec, [facility] [place] [facility] [address] [id number], [place] [address] Dec, [facility] [place] [facility] [address] [id number], [place] [address] Dec, [facility] [place] [facility] [address] [facility] [id number], [place] [address] Dec, [facility] [place] [facility] [address] [id number], [place] [address] Dec, [facility] [place] [facility] [address] [id number], [place] [address] Dec, [facility] [place] [facility] [address] [id number], [place] [address] 15 Dec, 2011 [facility] [place] [facility] [address] [facility] [id number], [place] [address] 15 Dec, 2011 [facility] [place] [facility] [address] [facility] [id number], [place] [address] Dec, [facility] [place] [facility] [address] [id number] [place] [address] Dec, [facility] [place] [facility] [address] [id number] [place] [address] Nov, [facility] [place] [facility] [address] [id number] [place] [address] Oct, [facility] [place] [facility] [address] [id number] [place] [address] Oct, [facility] [place] [facility] [address] [id number] [place] [address] Oct, [facility] [place] [facility] [address] [id number] [place] [address] Oct, [facility] [place] [facility] [address] [id number] [place] [address] Sep, [facility] [place] [facility] [address] [id number] [place] [address] Sep, [facility] [place] [facility] [address] [id number] [place] [address] Sep, [facility] [place] [facility] [address] [id number] [place] [address] Sep, [facility] [place] [facility] [address] [id number] [place] [address] Aug, [facility] [place] [facility] [address] [id number] [place] [address] Aug, [facility] [place] [facility] [address] [id number] [place] [address] Aug, [facility] [place] [facility] [address] [id number] [place] [address] Aug, [facility] [place] [facility] [address] [id number] [place] [address] Aug, [facility] [place] [facility] [address] [id number] [place] [address] July, [facility] [address] [facility] [id number] [place] [address] July, [facility] [address] [facility] [id number] [place] [address] July, [facility] [address] [facility] [id number] [place] [address] Dec, IMMUNIZATIONS No Known Immunizations SOCIAL HISTORY Never Assessed REASON FOR VISIT Refill request PLAN OF CARE VITAL SIGNS MEDICATIONS Medication Instructions Dosage Frequency Start Date End Date Duration Status Ibuprofen 800 MG Orally Three times a day 1 tablet with food or milk as needed 8h 90 days Active Ranitidine HCl 150 MG Orally 2 times a day 1 tablet 12h 90 days Active Loratadine 10 mg Orally Once a day as needed 1 tablet 90 days Active Lyrica 150 MG Orally Twice a day 1 capsule 12h Sep, 90 days Active RESULTS No Results PROCEDURES [...]
--- OUTSIDE RECORDS SUMMARY | 2018-10-24 12:25 | XMS REPORT ---
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 Name Role Phone NELSONPRADEEP BURGOSHANY Unavailable PROBLEMS Type Condition ICD9-CM Code SZB09-JB Code Onset Dates Condition Status SNOMED Code Problem Fibromyalgia M79.7 Active 15923080 Problem Tinnitus of both ears H93.13 Active 8954011755393 Problem Irritable bowel syndrome without diarrhea K58.9 Active 09768039 Problem COPD exacerbation J44.1 Active 868264567 Problem Menopausal symptoms N95.1 Active 31098418 Problem On antiepileptic therapy Z79.899 Active 339822155 Problem Chronic obstructive pulmonary disease, unspecified COPD type J44.9 Active 51155427 Problem Irritable bowel syndrome with diarrhea K58.0 Active 163109327 Problem Vitamin D deficiency E55.9 Active 09035191 Problem MRSA (methicillin resistant staph aureus) culture positive Z22.322 Active 198982704 Problem Epilepsy G40.909 Active 76833866 Problem Generalized anxiety disorder F41.1 Active 122666263 Problem Interstitial cystitis N30.10 Active 447543917 Problem Esophageal reflux K21.9 Active 140997366 Problem Major depressive disorder F32.9 Active 058681286 Problem Lumbago M54.5 Active 353166275 ALLERGIES No Information ENCOUNTERS Encounter Location Date Diagnosis [facility] [address] [id number] [address] Nov, [facility] [address] [id number] [id number] Oct, [facility] [address] [id number] [address] Oct, [facility] [address] [id number], [place] [address] Sep, [facility] [id number] [place] [address] Sep, [facility] [id number] [place] [address] Sep, [facility] [id number] [place] [id number] Aug, Dental examination Z01.20 [facility] [id number] [place] [address] Aug, Abscess of axilla, left L02.412 [facility] [id number] [place] [address] Aug, Esophageal reflux K21.9 [facility] [id number] [place] [address] Aug, [facility] [address] [address] Aug, Esophageal reflux K21.9 ; Fluid level behind tympanic membrane of right ear H65.91 ; Fibromyalgia M79.7 and Lumbago M54.5 [facility] [id number] [place] [address] Aug, Esophageal reflux K21.9 [facility] [id number] [place] [address] July, [facility] [id number] [place] [address] July, [facility] [id number] [place] [address] July, Chronic obstructive pulmonary disease, unspecified COPD type J44.9 [facility] [id number] [place] [address] July, [facility] [id number] [place] [address] July, [facility] [id number] [place] [address] July, Interstitial cystitis N30.10 ; Fibromyalgia M79.7 [...] Dysuria R30.0 and Generalized anxiety disorder F41.1 [place] [address] [address] Jun, [place] [address] [address] Jun, Chronic obstructive pulmonary disease, unspecified COPD type J44.9 ; COPD exacerbation J44.1 and Sore throat J02.9 [place] [address] [address] Jun, Fibromyalgia M79.7 [place] [address] [address] Jun, Fibromyalgia M79.7 [place] [address] [address] May, [place] [id number] [place] [address] May, [place] [address] [address] May, Fibromyalgia M79.7 [place] [address] [address] Mar, [place] [address] [address] Mar, Epilepsy G40.909 ; Lumbago M54.5 ; Esophageal reflux K21.9 ; Fibromyalgia M79.7 ; Chronic obstructive pulmonary disease, unspecified COPD type J44.9 ; Vitamin D deficiency E55.9 ; Fluid level behind tympanic membrane of right ear H65.91 ; Irritable bowel syndrome with diarrhea K58.0 ; Hematochezia K92.1 and Generalized anxiety disorder F41.1 [facility] [id number] [place] [address] Mar, [facility] [address] [address] Mar, [facility] [id number] [place] [address] Mar, Vitamin D deficiency E55.9 [facility] [address] [address] Feb, [facility] [id number] [place] [address] Feb, [facility] [address] [address] Jan, Fibromyalgia M79.7 [facility] [id number] [place] [address] Jan, [facility] [id number] [place] [address] Jan, [facility] [id number] [place] [address] Jan, Vitamin D deficiency E55.9 [facility] [id number] [place] [address] Dec, [facility] [id number] [place] [address] Dec, [facility] [id number] [place] [address] Dec, Generalized anxiety disorder F41.1 [facility] [id number] [place] [address] 02 Oct, 2017 Dysuria R30.0 ; Acute bilateral low back pain without sciatica M54.5 and Encounter for immunization Z23 [facility] [id number] [place] [address] Oct, [facility] [id number] [place] [address] Oct, Fibromyalgia M79.7 [facility] [id number] [place] [address] Sep, Dysuria R30.0 and Acute bronchitis, unspecified organism J20.9 [facility] [id number] [place] [address] Sep, [facility] [id number] [place] [address] Sep, Rectal prolapse K62.3 [facility] [id number] [place] [address] Sep, Chronic obstructive pulmonary disease, unspecified COPD type J44.9 [facility] [id number] [place] [id number] Aug, [facility] [id number] [place] [id number] Aug, [facility] [id number] [place] [address] Aug, Light headedness R42 ; On antiepileptic therapy Z79.899 ; Vitamin D deficiency E55.9 ; Screening for lipid disorders Z13.220 ; Dysuria R30.0 and Hemorrhoids, unspecified hemorrhoid type K64.9 [facility] [id number] [place] [address] Aug, Internal prolapsed hemorrhoids K64.8 [facility] [id number] [place] [address] July, [facility] [id number] [place] [address] May, [place] [id number] [place] [address] May, Fever and chills R50.9 and Influenza B J10.1 [place] [id number] [place] [address] Apr, [address] [address] Apr, Fibromyalgia M79.7 and Generalized anxiety disorder F41.[address] [address] Mar, Esophageal reflux K21.9 ; Generalized anxiety disorder F41.1 and Epilepsy G40.909 [place] [address] [address] Mar, Epilepsy G40.909 ; Esophageal reflux K21.9 ; Fibromyalgia M79.7 ; Generalized anxiety disorder F41.1 ; Pain of left foot M79.672 ; Pain in right foot M79.671 ; Ear pain, right H92.01 ; Tinnitus of both ears H93.13 ; Chronic obstructive pulmonary disease, unspecified COPD type J44.9 ; Vitamin D deficiency E55.9 ; Screening for lipid disorders Z13.220 and On antiepileptic therapy Z79.899 [place] [id number] [place] [address] Feb, [place] [id number] [place] [address] Feb, [facility] [id number] [place] [address] Feb, Dysuria R30.0 and Plantar fasciitis of right foot M72.2 [place] [address] [address] Feb, [place] [address] [address] Feb, [facility] [id number] [place] [address] Jan, [facility] [id number] [place] [address] Jan, [facility] [id number] [place] [address] Dec, [facility] [address] [address] Dec, [facility] [id number] [place] [address] Dec, [facility] [id number] [place] [address] Nov, [facility] [id number] [place] [address] Sep, [facility] [id number] [place] [address] Aug, Shortness of breath R06.02 and Acute suppurative otitis media of right ear without spontaneous rupture of tympanic membrane, recurrence not specified H66.001 [place] [id number] [place] [address] 14 Aug, 2015 Internal prolapsed hemorrhoids K64.8 [place] [id number] [place] [address] Jun, 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 [facility] [id number] [place] [address] May, Fibromyalgia M79.7 ; Interstitial cystitis N30.10 ; Intractable migraine without aura and without status migrainosus G43.019 ; Low vitamin D level E55.9 and Ringing in right ear H93.11 [facility] [id number] [place] [address] May, [facility] [address] [address] May, Low vitamin D level E55.9 [facility] [address] [address] Apr, [facility] [address] [address] Mar, [facility] [address] [address] Mar, Acute suppurative otitis media of right ear without spontaneous rupture of tympanic membrane, recurrence not specified H66.001 ; Encounter for immunization Z23 ; Asthma with acute exacerbation, unspecified asthma severity J45.901 ; Memory problem R41.3 ; Acute pain of right knee M25.561 ; Chronic fatigue R53.82 and Excessive urinary volume R35.8 [facility] [address] [address] Feb, [facility] [address] [address] Feb, [facility] [address] [address] Jan, [facility] [address] [address] Nov, Esophageal reflux 530.81 ; Anxiety 300.00 and Tingling in extremities 782.0 [facility] [id number] [place] [address] Oct, [facility] [address] [address] Oct, [facility] [address] [address] Oct, [facility] [address] [address] Oct, [facility] [address] [address] Oct, [facility] [address] [address] Sep, Other chronic allergic conjunctivitis 372.14 ; Irritable bowel syndrome 564.1 ; 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 ; Fibromyalgia 729.1 ; Extremity pain 729.5 and Neck pain 723.1 [facility] [address] [place] [address] Sep, [facility] [id number] [place] [address] Aug, [facility] [id number] [place] [address] Aug, [facility] [id number] [place] [address] July, Vomiting 787.03 [facility] [id number] [place] [id number] July, Dental examination V72.2 [facility] [id number] [place] [address] Jun, [facility] [id number] [place] [address] Jun, [facility] [address] [address] May, [facility] [id number] [place] [address] May, [facility] [id number] [place] [address] May, [facility] [id number] [place] [address] May, [facility] [address] [address] May, [facility] [id number] [place] [address] May, [facility] [place] [facility] [address] [id number] [place] [address] May, [facility] [place] [facility] [address] [id number] [place] [address] May, [facility] [place] [facility] [address] [id number] [place] [address] May, [facility] [place] [facility] [address] [id number] [place] [address] Apr, 2014 [facility] [place] [facility] [address] [id number] [place] [address] Apr, 2014 [facility] [place] [facility] [address] [id number] [place] [address] Apr, 2014 [facility] [place] [facility] [address] [id number] [place] [address] Apr, 2014 [facility] [place] [facility] [address] [id number] [place] [address] Apr, [facility] [place] [facility] [address] [id number] [place] [address] Apr, [facility] [place] [facility] [address] [facility] [id number] [place] [address] Mar, [facility] [place] [facility] [address] [id number] [place] [address] Mar, [facility] [place] [facility] [address] [id number] [place] [address] Mar, [facility] [place] [facility] [address] [id number] [place] [address] Mar, [facility] [place] [facility] [address] [id number] [place] [address] Mar, [facility] [place] [facility] [address] [id number] [place] [address] Mar, [facility] [place] [facility] [address] [id number] [place] [address] Mar, [facility] [address] [id number] [place] [address] Mar, [facility] [place] [facility] [address] [id number] [place] [address] Mar, [facility] [place] [facility] [address] [id number] [place] [address] Mar, [facility] [address] [id number] [place] [address] Mar, [facility] [place] [facility] [address] [id number] [place] [address] Mar, [facility] [address] [id number] [place] [address] Mar, [facility] [address] [id number] [place] [address] Mar, [facility] [address] [id number] [place] [address] Mar, [facility] [place] [facility] [address] [id number] [place] [address] Mar, [facility] [place] [facility] [address] [id number] [place] [address] Mar, [facility] [place] [facility] [address] [id number] [address] Mar, [facility] [place] [facility] [address] [id number] [place] [address] Mar, [facility] [place] [facility] [address] [id number] [place] [address] Feb, [facility] [place] [facility] [address] [id number] [place] [address] Feb, [facility] [place] [facility] [address] [id number] [place] [address] Feb, [facility] [place] [facility] [address] [id number] [place] [address] Feb, [facility] [place] [facility] [address] [id number] [place] [address] Jan, [facility] [place] [facility] [address] [id number] [place] [address] Jan, [facility] [place] [facility] [address] [id number] [place] [address] Jan, [facility] [place] [facility] [address] [id number] [place] [address] Jan, [facility] [place] [facility] [address] [id number] [place] [address] Jan, [facility] [place] [facility] [address] [id number] [place] [address] Jan, [facility] [place] [facility] [address] [id number] [place] [address] Jan, [facility] [place] [facility] [address] [id number] [place] [address] Jan, [facility] [place] [facility] [address] [id number] [place] [address] Dec, [facility] [place] [facility] [address] [id number] [place] [address] Dec, [facility] [place] [facility] [address] [id number], [place] [address] Dec, [facility] [place] [facility] [address] [id number] [place] [address] Dec, [facility] [place] [facility] [address] [id number] [place] [address] Nov, [facility] [place] [facility] [address] [id number] [place] [address] Nov, [facility] [place] [facility] [address] [id number] [place] [address] 08 Sep, 2013 [facility] [place] [facility] [address] [id number] [place] [address] 08 Sep, 2013 [facility] [place] [facility] [address] [id number] [place] [address] 05 Sep, 2013 [facility] [place] [facility] [address] [id number] [place] [address] 05 Sep, 2013 [facility] [place] [facility] [address] [id number] [place] [address] 04 Sep, 2013 [facility] [place] [facility] [address] [id number] [place] [address] 04 Nov, 2013 [facility] [place] [facility] [address] [id number] [place] [address] 03 Nov, 2013 [facility] [place] [facility] [address] [id number] [place] [address] Nov, 2013 [facility] [place] [facility] [address] [id number] [place] [address] Oct, [facility] [place] [facility] [address] [id number] [place] [address] Oct, [facility] [place] [facility] [address] [id number] [place] [address] Sep, [facility] [place] [facility] [address] [id number] [place] [address] Sep, [facility] [place] [facility] [address] [id number] [place] [address] Sep, [facility] [place] [facility] [address] [id number] [place] [address] Sep, [facility] [place] [facility] [address] [id number] [place] [address] Sep, [facility] [place] [facility] [address] [id number] [place] [address] Sep, [facility] [place] [facility] [address] [id number] [place] [address] Aug, [facility] [place] [facility] [address] [id number] [place] [address] Aug, [facility] [place] [facility] [address] [id number] [place] [address] Aug, [facility] [place] [facility] [address] [id number] [place] [address] Aug, [facility] [place] [facility] [address] [id number] [place] [address] Aug, [facility] [place] [facility] [address] [id number] [place] [address] Aug, [facility] [place] [facility] [address] [id number] [place] [address] July, [facility] [place] [facility] [address] [id number] [place] [address] July, [facility] [place] [facility] [address] [id number] [place] [address] July, [facility] [place] [facility] [address] [id number] [place] [address] July, [facility] [place] [facility] [address] [id number] [place] [address] July, [facility] [place] [facility] [address] [id number] [place] [address] July, [facility] [place] [facility] [address] [id number] [place] [address] Jun, [facility] [place] [facility] [address] [id number] [place] [address] Jun, [facility] [place] [facility] [address] [id number] [place] [address] Jun, [facility] [place] [facility] [address] [id number] [place] [address] Jun, [facility] [place] [facility] [address] [id number] [place] [address] May, [facility] [place] [facility] [address] [id number] [place] [address] May, [facility] [place] [facility] [address] [id number] [place] [address] Apr, [facility] [place] [facility] [address] [id number] [place] [address] Apr, [facility] [place] [facility] [address] [id number] [place] [address] Apr, [facility] [place] [facility] [address] [id number] [place] [address] Apr, [facility] [place] [facility] [address] [id number] [place] [address] Mar, [facility] [place] [facility] [address] [id number] [place] [address] Mar, [facility] [place] [facility] [address] [id number] [place] [address] Mar, [facility] [place] [facility] [address] [id number] [place] [address] Mar, [facility] [place] [facility] [address] [id number] [place] [address] Mar, [facility] [place] [facility] [address] [id number] [place] [address] Mar, [facility] [place] [facility] [address] [id number] [place] [address] Feb, [facility] [place] [facility] [address] [id number] [place] [address] Feb, [facility] [place] [facility] [address] [id number] [place] [address] Jan, [facility] [place] [facility] [address] [id number] [place] [address] Jan, [facility] [place] [facility] [address] [id number] [place] [address] Jan, [facility] [place] [facility] [address] [id number] [place] [address] Jan, [facility] [place] [facility] [address] [id number] [place] [address] Nov, [facility] [place] [facility] [address] [id number] [place] [address] Nov, [facility] [place] [facility] [address] [id number] [place] [address] Oct, [facility] [place] [facility] [address] [id number] [place] [address] Oct, [facility] [place] [facility] [address] [id number] [place] [address] Sep, [facility] [place] [facility] [address] [id number] [place] [address] Sep, [facility] [place] [facility] [address] [id number] [place] [address] Sep, [facility] [place] [facility] [address] [id number] [place] [address] Aug, [facility] [place] [facility] [address] [id number] [place] [address] Aug, [facility] [place] [facility] [address] [id number] [place] [address] Aug, [facility] [place] [facility] [address] [id number] [place] [address] Aug, [facility] [place] [facility] [address] [id number] [place] [address] July, [facility] [place] [facility] [address] [id number], [place] [address] July, [facility] [address] [id number] [place] [address] July, [facility] [address] [id number] [place] [address] July, [facility] [address] [id number] [place] [address] Jun, [facility] [address] [id number] [place] [address] Jun, [facility] [address] [id number] [place] [address] Jun, [facility] [address] [id number] [place] [address] May, [facility] [address] [id number] [place] [address] May, [facility] [address] [id number] [place] [address] Apr, [facility] [address] [id number] [place] [address] Apr, [facility] [address] [id number] [place] [address] Apr, [facility] [address] [id number] [place] [address] Apr, [facility] [address] [id number], [place] [address] Mar, [facility] [address] [id number] [place] [address] Mar, [facility] [place] [facility] [address] [id number], [place] [address] Mar, [facility] [address] [facility] [id number], [place] [address] Mar, [facility] [place] [facility] [address] [id number] [place] [address] 11 Feb, 2012 [facility] [place] [facility] [address] [id number] [place] [address] 10 Feb, 2012 [facility] [place] [facility] [address] [id number] [place] [address] 10 Feb, 2012 [facility] [place] [facility] [address] [id number] [place] [address] 10 Feb, 2012 [facility] [place] [facility] [address] [id number] [place] [address] 10 Feb, 2012 [facility] [place] [facility] [address] [id number] [place] [address] 06 Feb, 2012 [facility] [place] [facility] [address] [id number] [place] [address] 04 Feb, 2012 [facility] [place] [facility] [address] [id number] [place] [address] 04 Feb, 2012 [facility] [place] [facility] [address] [id number] [place] [address] 28 Jan, 2012 [facility] [place] [facility] [address] [id number] [place] [address] 28 Jan, 2012 [facility] [place] [facility] [address] [id number] [place] [address] 15 Jan, 2012 [facility] [place] [facility] [address] [id number] [place] [address] 15 Jan, 2012 [facility] [place] [facility] [address] [id number] [place] [address] 14 Jan, 2012 [facility] [place] [facility] [address] [id number] [place] [address] 13 Jan, 2012 [facility] [place] [facility] [address] [id number] [place] [address] 13 Jan, 2012 [facility] [place] [facility] [address] [id number] [place] [address] Jan, [facility] [place] [facility] [address] [id number] [place] [address] Jan, [facility] [place] [facility] [address] [id number], [place] [address] Jan, [facility] [place] [facility] [address] [facility] [id number] [place] [address] Jan, [facility] [place] [facility] [address] [id number], [place] [address] Dec, [facility] [place] [facility] [address] [id number] [place] [address] Dec, [facility] [place] [facility] [address] [id number], [place] [address] Dec, [facility] [place] [facility] [address] [id number] [place] [address] Dec, [facility] [place] [facility] [address] [id number], [place] [address] Dec, [facility] [place] [facility] [address] [id number], [place] [address] Dec, [facility] [place] [facility] [address] [facility] [id number], [place] [address] Dec, [facility] [place] [facility] [address] [id number], [place] [address] Dec, [facility] [place] [facility] [address] [id number], [place] [address] Dec, [facility] [place] [facility] [address] [id number], [place] [address] Dec, [facility] [place] [facility] [address] [facility] [id number], [place] [address] Dec, [facility] [place] [facility] [address] [facility] [id number], [place] [address] Dec, [facility] [place] [facility] [address] [id number] [place] [address] Nov, [facility] [place] [facility] [address] [id number] [place] [address] Oct, [facility] [place] [facility] [address] [id number] [place] [address] Oct, [facility] [place] [facility] [address] [id number] [place] [address] Oct, [facility] [place] [facility] [address] [id number] [place] [address] Oct, [facility] [place] [facility] [address] [id number] [place] [address] Sep, [facility] [place] [facility] [address] [id number] [place] [address] Sep, [facility] [place] [facility] [address] [id number] [place] [address] Sep, [facility] [place] [facility] [address] [id number] [place] [address] Sep, [facility] [place] [facility] [address] [id number] [place] [address] Aug, [facility] [place] [facility] [address] [id number] [place] [address] Aug, [facility] [place] [facility] [address] [id number] [place] [address] Aug, [facility] [place] [facility] [address] [id number] [place] [address] Aug, [facility] [place] [facility] [address] [id number] [place] [address] Aug, [facility] [place] [facility] [address] [id number] [place] [address] July, [facility] [place] [facility] [address] [id number] [place] [address] July, [facility] [address] [facility] [id number] [place] [address] July, [facility] [address] [facility] [id number], [place] [address] Dec, IMMUNIZATIONS No Known Immunizations SOCIAL HISTORY Never Assessed REASON FOR VISIT Refill Request PLAN OF CARE VITAL SIGNS MEDICATIONS Medication Instructions Dosage Frequency Start Date End Date Duration Status ProAir HFA 108 (90 Base) MCG/ACT Inhalation every 6 hrs 2 puffs as needed 6h July, Active RESULTS No Results PROCEDURES No Known [...]
--- OUTSIDE RECORDS SUMMARY | 2018-10-24 12:25 | XMS REPORT ---
Author Author NELSON DIANN [facility] Address [address] [place] [address] Care Team Providers Care [employer] Supervisor Name Role Phone NELSONPRADEEP BURGOSHANY Unavailable PROBLEMS Type Condition ICD9-CM Code RRL46-LK Code Onset Dates Condition Status SNOMED Code Problem Fibromyalgia M79.7 Active 03470435 Problem Tinnitus of both ears H93.13 Active 9514104211937 Problem Irritable bowel syndrome without diarrhea K58.9 Active 51747666 Problem COPD exacerbation J44.1 Active 214003162 Problem Menopausal symptoms N95.1 Active 49946063 Problem On antiepileptic therapy Z79.899 Active 187026514 Problem Chronic obstructive pulmonary disease, unspecified COPD type J44.9 Active 49353935 Problem Irritable bowel syndrome with diarrhea K58.0 Active 921604596 Problem Vitamin D deficiency E55.9 Active 41761474 Problem MRSA (methicillin resistant staph aureus) culture positive Z22.322 Active 847765077 Problem Epilepsy G40.909 Active 71832755 Problem Generalized anxiety disorder F41.1 Active 223911862 Problem Interstitial cystitis N30.10 Active 979465431 Problem Esophageal reflux K21.9 Active 349267446 Problem Major depressive disorder F32.9 Active 694129585 Problem Lumbago M54.5 Active 309643741 ALLERGIES No Information ENCOUNTERS Encounter Location Date Diagnosis [facility] [address] [id number] [address] Nov, [facility] [address] [id number] [id number] Oct, [facility] [address] [id number] [address] Oct, [facility] [address] [id number] [address] Sep, [facility] [id number] [place] [address] Sep, [facility] [id number] [place] [address] Sep, [facility] [id number] [place] [id number] Aug, Dental examination Z01.20 [facility] [id number] [place] [address] Aug, Abscess of axilla, left L02.412 [facility] [id number] [place] [address] Aug, Esophageal reflux K21.9 [facility] [id number] [place] [address] Aug, [facility] [address] [address] Aug, Esophageal reflux K21.9 ; Fluid level behind tympanic membrane of right ear H65.91 ; Fibromyalgia M79.7 and Lumbago M54.5 [facility] [id number] [place] [address] Aug, Esophageal reflux K21.9 [facility] [id number] [place] [address] July, [facility] [id number] [place] [address] July, [facility] [id number] [place] [address] July, Chronic obstructive pulmonary disease, unspecified COPD type J44.9 [facility] [id number] [place] [address] July, [facility] [id number] [place] [address] July, [facility] [id number] [place] [address] July, Interstitial cystitis N30.10 ; Fibromyalgia M79.7 [...] Dysuria R30.0 and Generalized anxiety disorder F41.1 [place] [address] [address] Jun, [place] [address] [address] Jun, Chronic obstructive pulmonary disease, unspecified COPD type J44.9 ; COPD exacerbation J44.1 and Sore throat J02.9 [place] [address] [address] Jun, Fibromyalgia M79.7 [place] [address] [address] Jun, Fibromyalgia M79.7 [place] [address] [address] May, [place] [id number] [place] [address] May, [place] [address] [address] May, Fibromyalgia M79.7 [place] [address] [address] Mar, [place] [address] [address] Mar, Epilepsy G40.909 ; Lumbago M54.5 ; Esophageal reflux K21.9 ; Fibromyalgia M79.7 ; Chronic obstructive pulmonary disease, unspecified COPD type J44.9 ; Vitamin D deficiency E55.9 ; Fluid level behind tympanic membrane of right ear H65.91 ; Irritable bowel syndrome with diarrhea K58.0 ; Hematochezia K92.1 and Generalized anxiety disorder F41.1 [facility] [id number] [place] [address] Mar, [facility] [address] [address] Mar, [facility] [id number] [place] [address] Mar, Vitamin D deficiency E55.9 [facility] [address] [address] Feb, [facility] [id number] [place] [address] Feb, [facility] [address] [address] Jan, Fibromyalgia M79.7 [facility] [id number] [place] [address] Jan, [facility] [id number] [place] [address] Jan, [facility] [id number] [place] [address] Jan, Vitamin D deficiency E55.9 [facility] [id number] [place] [address] Dec, [facility] [id number] [place] [address] Dec, [facility] [id number] [place] [address] Dec, Generalized anxiety disorder F41.1 [facility] [id number] [place] [address] 02 Oct, 2017 Dysuria R30.0 ; Acute bilateral low back pain without sciatica M54.5 and Encounter for immunization Z23 [facility] [id number] [place] [address] Oct, [facility] [id number] [place] [address] Oct, Fibromyalgia M79.7 [facility] [id number] [place] [address] Sep, Dysuria R30.0 and Acute bronchitis, unspecified organism J20.9 [facility] [id number] [place] [address] Sep, [facility] [id number] [place] [address] Sep, Rectal prolapse K62.3 [facility] [id number] [place] [address] Sep, Chronic obstructive pulmonary disease, unspecified COPD type J44.9 [facility] [id number] [place] [id number] Aug, [facility] [id number] [place] [id number] Aug, [facility] [id number] [place] [address] Aug, Light headedness R42 ; On antiepileptic therapy Z79.899 ; Vitamin D deficiency E55.9 ; Screening for lipid disorders Z13.220 ; Dysuria R30.0 and Hemorrhoids, unspecified hemorrhoid type K64.9 [facility] [id number] [place] [address] Aug, Internal prolapsed hemorrhoids K64.8 [facility] [id number] [place] [address] July, [facility] [id number] [place] [address] May, [place] [id number] [place] [address] May, Fever and chills R50.9 and Influenza B J10.1 [place] [id number] [place] [address] Apr, [address] [address] Apr, Fibromyalgia M79.7 and Generalized anxiety disorder F41.[address] [address] Mar, Esophageal reflux K21.9 ; Generalized anxiety disorder F41.1 and Epilepsy G40.909 [place] [address] [address] Mar, Epilepsy G40.909 ; Esophageal reflux K21.9 ; Fibromyalgia M79.7 ; Generalized anxiety disorder F41.1 ; Pain of left foot M79.672 ; Pain in right foot M79.671 ; Ear pain, right H92.01 ; Tinnitus of both ears H93.13 ; Chronic obstructive pulmonary disease, unspecified COPD type J44.9 ; Vitamin D deficiency E55.9 ; Screening for lipid disorders Z13.220 and On antiepileptic therapy Z79.899 [place] [id number] [place] [address] Feb, [place] [id number] [place] [address] Feb, [facility] [id number] [place] [address] Feb, Dysuria R30.0 and Plantar fasciitis of right foot M72.2 [place] [address] [address] Feb, [place] [address] [address] Feb, [facility] [id number] [place] [address] Jan, [facility] [id number] [place] [address] Jan, [facility] [id number] [place] [address] Dec, [facility] [address] [address] Dec, [facility] [id number] [place] [address] Dec, [facility] [id number] [place] [address] Nov, [facility] [id number] [place] [address] Sep, [facility] [id number] [place] [address] Aug, Shortness of breath R06.02 and Acute suppurative otitis media of right ear without spontaneous rupture of tympanic membrane, recurrence not specified H66.001 [place] [id number] [place] [address] 14 Aug, 2015 Internal prolapsed hemorrhoids K64.8 [place] [id number] [place] [address] Jun, 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 [facility] [id number] [place] [address] May, Fibromyalgia M79.7 ; Interstitial cystitis N30.10 ; Intractable migraine without aura and without status migrainosus G43.019 ; Low vitamin D level E55.9 and Ringing in right ear H93.11 [facility] [id number] [place] [address] May, [facility] [address] [address] May, Low vitamin D level E55.9 [facility] [address] [address] Apr, [facility] [address] [address] Mar, [facility] [address] [address] Mar, Acute suppurative otitis media of right ear without spontaneous rupture of tympanic membrane, recurrence not specified H66.001 ; Encounter for immunization Z23 ; Asthma with acute exacerbation, unspecified asthma severity J45.901 ; Memory problem R41.3 ; Acute pain of right knee M25.561 ; Chronic fatigue R53.82 and Excessive urinary volume R35.8 [facility] [address] [address] Feb, [facility] [address] [address] Feb, [facility] [address] [address] Jan, [facility] [address] [address] Nov, Esophageal reflux 530.81 ; Anxiety 300.00 and Tingling in extremities 782.0 [facility] [id number] [place] [address] Oct, [facility] [address] [address] Oct, [facility] [address] [address] Oct, [facility] [address] [address] Oct, [facility] [address] [address] Oct, [facility] [address] [address] Sep, Other chronic allergic conjunctivitis 372.14 ; Irritable bowel syndrome 564.1 ; 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 ; Fibromyalgia 729.1 ; Extremity pain 729.5 and Neck pain 723.1 [facility] [id number] [place] [address] Sep, [facility] [id number] [place] [address] Aug, [facility] [id number] [place] [address] Aug, [facility] [id number] [place] [address] July, Vomiting 787.03 [facility] [id number] [place] [id number] July, Dental examination V72.2 [facility] [id number] [place] [address] Jun, [facility] [id number] [place] [address] Jun, [facility] [address] [address] May, [facility] [id number] [place] [address] May, [facility] [id number] [place] [address] May, [facility] [id number] [place] [address] May, [facility] [address] [address] May, [facility] [id number] [place] [address] May, [facility] [place] [facility] [address] [id number] [place] [address] May, [facility] [place] [facility] [address] [id number] [place] [address] May, [facility] [place] [facility] [address] [id number] [place] [address] May, [facility] [place] [facility] [address] [id number] [place] [address] Apr, 2014 [facility] [place] [facility] [address] [id number] [place] [address] Apr, 2014 [facility] [place] [facility] [address] [id number] [place] [address] Apr, 2014 [facility] [place] [facility] [address] [id number] [place] [address] Apr, 2014 [facility] [place] [facility] [address] [id number] [place] [address] Apr, [facility] [place] [facility] [address] [id number] [place] [address] Apr, [facility] [place] [facility] [address] [facility] [id number] [place] [address] Mar, [facility] [place] [facility] [address] [id number] [place] [address] Mar, [facility] [place] [facility] [address] [id number] [place] [address] Mar, [facility] [place] [facility] [address] [id number] [place] [address] Mar, [facility] [place] [facility] [address] [id number] [place] [address] Mar, [facility] [place] [facility] [address] [id number] [place] [address] Mar, [facility] [place] [facility] [address] [id number] [place] [address] Mar, [facility] [address] [id number] [place] [address] Mar, [facility] [place] [facility] [address] [id number] [place] [address] Mar, [facility] [place] [facility] [address] [id number] [place] [address] Mar, [facility] [address] [id number] [place] [address] Mar, [facility] [place] [facility] [address] [id number] [place] [address] Mar, [facility] [address] [id number] [place] [address] Mar, [facility] [address] [id number] [place] [address] Mar, [facility] [address] [id number] [place] [address] Mar, [facility] [place] [facility] [address] [id number] [place] [address] Mar, [facility] [place] [facility] [address] [id number] [place] [address] Mar, [facility] [place] [facility] [address] [id number] [place] [address] Mar, [facility] [place] [facility] [address] [id number] [place] [address] Mar, [facility] [place] [facility] [address] [id number] [place] [address] Feb, [facility] [place] [facility] [address] [id number] [place] [address] Feb, [facility] [place] [facility] [address] [id number] [place] [address] Feb, [facility] [place] [facility] [address] [id number] [place] [address] Feb, [facility] [place] [facility] [address] [id number] [place] [address] Jan, [facility] [place] [facility] [address] [id number] [place] [address] Jan, [facility] [place] [facility] [address] [id number] [place] [address] Jan, [facility] [place] [facility] [address] [id number] [place] [address] Jan, [facility] [place] [facility] [address] [id number] [place] [address] Jan, [facility] [place] [facility] [address] [id number] [place] [address] Jan, [facility] [place] [facility] [address] [id number] [place] [address] Jan, [facility] [place] [facility] [address] [id number] [place] [address] Jan, [facility] [place] [facility] [address] [id number] [place] [address] Dec, [facility] [place] [facility] [address] [id number] [place] [address] Dec, [facility] [place] [facility] [address] [id number] [place] [address] Dec, [facility] [place] [facility] [address] [id number] [place] [address] Dec, [facility] [place] [facility] [address] [id number] [place] [address] Nov, [facility] [place] [facility] [address] [id number] [place] [address] Nov, [facility] [place] [facility] [address] [id number] [place] [address] 08 Sep, 2013 [facility] [place] [facility] [address] [id number] [place] [address] 08 Sep, 2013 [facility] [place] [facility] [address] [id number] [place] [address] 05 Sep, 2013 [facility] [place] [facility] [address] [id number] [place] [address] 05 Sep, 2013 [facility] [place] [facility] [address] [id number] [place] [address] 04 Sep, 2013 [facility] [place] [facility] [address] [id number] [place] [address] 04 Nov, 2013 [facility] [place] [facility] [address] [id number] [place] [address] 03 Nov, 2013 [facility] [place] [facility] [address] [id number] [place] [address] Nov, 2013 [facility] [place] [facility] [address] [id number] [place] [address] Oct, [facility] [place] [facility] [address] [id number] [place] [address] Oct, [facility] [place] [facility] [address] [id number] [place] [address] Sep, [facility] [place] [facility] [address] [id number] [place] [address] Sep, [facility] [place] [facility] [address] [id number] [place] [address] Sep, [facility] [place] [facility] [address] [id number] [place] [address] Sep, [facility] [place] [facility] [address] [id number] [place] [address] Sep, [facility] [place] [facility] [address] [id number] [place] [address] Sep, [facility] [place] [facility] [address] [id number] [place] [address] Aug, [facility] [place] [facility] [address] [id number] [place] [address] Aug, [facility] [place] [facility] [address] [id number] [place] [address] Aug, [facility] [place] [facility] [address] [id number] [place] [address] Aug, [facility] [place] [facility] [address] [id number] [place] [address] Aug, [facility] [place] [facility] [address] [id number] [place] [address] Aug, [facility] [place] [facility] [address] [id number] [place] [address] July, [facility] [place] [facility] [address] [id number] [place] [address] July, [facility] [place] [facility] [address] [id number] [place] [address] July, [facility] [place] [facility] [address] [id number] [place] [address] July, [facility] [place] [facility] [address] [id number] [place] [address] July, [facility] [place] [facility] [address] [id number] [place] [address] July, [facility] [place] [facility] [address] [id number] [place] [address] Jun, [facility] [place] [facility] [address] [id number] [place] [address] Jun, [facility] [place] [facility] [address] [id number] [place] [address] Jun, [facility] [place] [facility] [address] [id number] [place] [address] Jun, [facility] [place] [facility] [address] [id number] [place] [address] May, [facility] [place] [facility] [address] [id number] [place] [address] May, [facility] [place] [facility] [address] [id number] [place] [address] Apr, [facility] [place] [facility] [address] [id number] [place] [address] Apr, [facility] [place] [facility] [address] [id number] [place] [address] Apr, [facility] [place] [facility] [address] [id number] [place] [address] Apr, [facility] [place] [facility] [address] [id number] [place] [address] Mar, [facility] [place] [facility] [address] [id number] [place] [address] Mar, [facility] [place] [facility] [address] [id number] [place] [address] Mar, [facility] [place] [facility] [address] [id number] [place] [address] Mar, [facility] [place] [facility] [address] [id number] [place] [address] Mar, [facility] [place] [facility] [address] [id number] [place] [address] Mar, [facility] [place] [facility] [address] [id number] [place] [address] Feb, [facility] [place] [facility] [address] [id number] [place] [address] Feb, [facility] [place] [facility] [address] [id number] [place] [address] Jan, [facility] [place] [facility] [address] [id number] [place] [address] Jan, [facility] [place] [facility] [address] [id number] [place] [address] Jan, [facility] [place] [facility] [address] [id number] [place] [address] Jan, [facility] [place] [facility] [address] [id number] [place] [address] Nov, [facility] [place] [facility] [address] [id number] [place] [address] Nov, [facility] [place] [facility] [address] [id number] [place] [address] Oct, [facility] [place] [facility] [address] [id number] [place] [address] Oct, [facility] [place] [facility] [address] [id number] [place] [address] Sep, [facility] [place] [facility] [address] [id number] [place] [address] Sep, [facility] [place] [facility] [address] [id number] [place] [address] Sep, [facility] [place] [facility] [address] [id number] [place] [address] Aug, [facility] [place] [facility] [address] [id number] [place] [address] Aug, [facility] [place] [facility] [address] [id number] [place] [address] Aug, [facility] [place] [facility] [address] [id number] [place] [address] Aug, [facility] [place] [facility] [address] [id number] [place] [address] July, [facility] [place] [facility] [address] [id number] [place] [address] July, [facility] [address] [id number] [place] [address] July, [facility] [address] [id number] [place] [address] July, [facility] [address] [id number] [place] [address] Jun, [facility] [address] [id number] [place] [address] Jun, [facility] [address] [id number] [place] [address] Jun, [facility] [address] [id number] [place] [address] May, [facility] [address] [address] [id number] [place] [address] May, [facility] [address] [id number] [place] [address] Apr, [facility] [address] [id number] [place] [address] Apr, [facility] [address] [id number] [place] [address] Apr, [facility] [address] [id number] [place] [address] Apr, [facility] [address] [id number] [place] [address] Mar, [facility] [address] [id number] [place] [address] Mar, [facility] [place] [facility] [address] [id number] [place] [address] Mar, [facility] [address] [facility] [id number] [place] [address] Mar, [facility] [place] [facility] [address] [id number] [place] [address] 11 Feb, 2012 [facility] [place] [facility] [address] [id number] [place] [address] 10 Feb, 2012 [facility] [place] [facility] [address] [id number] [place] [address] 10 Feb, 2012 [facility] [place] [facility] [address] [id number] [place] [address] 10 Feb, 2012 [facility] [place] [facility] [address] [id number] [place] [address] 10 Feb, 2012 [facility] [place] [facility] [address] [id number] [place] [address] 06 Feb, 2012 [facility] [place] [facility] [address] [id number] [place] [address] 04 Feb, 2012 [facility] [place] [facility] [address] [id number] [place] [address] 04 Feb, 2012 [facility] [place] [facility] [address] [id number] [place] [address] 28 Jan, 2012 [facility] [place] [facility] [address] [id number] [place] [address] 28 Jan, 2012 [facility] [place] [facility] [address] [id number] [place] [address] 15 Jan, 2012 [facility] [place] [facility] [address] [id number] [place] [address] 15 Jan, 2012 [facility] [place] [facility] [address] [id number] [place] [address] 14 Jan, 2012 [facility] [place] [facility] [address] [id number] [place] [address] 13 Jan, 2012 [facility] [place] [facility] [address] [id number] [place] [address] 13 Jan, 2012 [facility] [place] [facility] [address] [id number] [place] [address] Jan, [facility] [place] [facility] [address] [id number] [place] [address] Jan, [facility] [place] [facility] [address] [id number] [place] [address] Jan, [facility] [place] [facility] [address] [facility] [id number] [place] [address] Jan, [facility] [place] [facility] [address] [id number] [place] [address] Dec, [facility] [place] [facility] [address] [id number] [place] [address] Dec, [facility] [place] [facility] [address] [id number] [place] [address] Dec, [facility] [place] [facility] [address] [id number] [place] [address] Dec, [facility] [place] [facility] [address] [id number] [place] [address] Dec, [facility] [place] [facility] [address] [id number] [place] [address] Dec, [facility] [place] [facility] [address] [facility] [id number] [place] [address] Dec, [facility] [place] [facility] [address] [id number] [place] [address] Dec, [facility] [place] [facility] [address] [id number] [place] [address] Dec, [facility] [place] [facility] [address] [id number] [place] [address] Dec, [facility] [place] [facility] [address] [facility] [id number] [place] [address] Dec, [facility] [place] [facility] [address] [facility] [id number] [place] [address] Dec, [facility] [place] [facility] [address] [id number] [place] [address] Nov, [facility] [place] [facility] [address] [id number] [place] [address] Oct, [facility] [place] [facility] [address] [id number] [place] [address] Oct, [facility] [place] [facility] [address] [id number] [place] [address] Oct, [facility] [place] [facility] [address] [id number] [place] [address] Oct, [facility] [place] [facility] [address] [id number] [place] [address] Sep, [facility] [place] [facility] [address] [id number] [place] [address] Sep, [facility] [place] [facility] [address] [id number] [place] [address] Sep, [facility] [place] [facility] [address] [id number] [place] [address] Sep, [facility] [place] [facility] [address] [id number] [place] [address] Aug, [facility] [place] [facility] [address] [id number] [place] [address] Aug, [facility] [place] [facility] [address] [id number] [place] [address] Aug, [facility] [place] [facility] [address] [id number] [place] [address] Aug, [facility] [place] [facility] [address] [id number] [place] [address] Aug, [facility] [place] [facility] [address] [id number] [place] [address] July, [facility] [place] [facility] [address] [id number] [place] [address] July, [facility] [address] [facility] [id number] [place] [address] July, [facility] [address] [facility] [id number] [place] [address] Dec, IMMUNIZATIONS No Known Immunizations SOCIAL HISTORY [...]
--- OUTSIDE RECORDS SUMMARY | 2018-10-24 12:26 | XMS REPORT ---
Author Author NELSON DIANN [facility] Address [address] [place] [address] Care Team Providers Care Detective Captain Name Role Phone NELSONPRADEEP BURGOSHANY Unavailable PROBLEMS Type Condition ICD9-CM Code FRK30-YA Code Onset Dates Condition Status SNOMED Code Problem Fibromyalgia M79.7 Active 46721057 Problem Tinnitus of both ears H93.13 Active 1017409335266 Problem Irritable bowel syndrome without diarrhea K58.9 Active 35441426 Problem COPD exacerbation J44.1 Active 394087285 Problem Menopausal symptoms N95.1 Active 43503354 Problem On antiepileptic therapy Z79.899 Active 626947509 Problem Chronic obstructive pulmonary disease, unspecified COPD type J44.9 Active 67656364 Problem Irritable bowel syndrome with diarrhea K58.0 Active 462538166 Problem Vitamin D deficiency E55.9 Active 73059061 Problem MRSA (methicillin resistant staph aureus) culture positive Z22.322 Active 221087583 Problem Epilepsy G40.909 Active 84184763 Problem Generalized anxiety disorder F41.1 Active 694290216 Problem Interstitial cystitis N30.10 Active 628159691 Problem Esophageal reflux K21.9 Active 733457018 Problem Major depressive disorder F32.9 Active 274312593 Problem Lumbago M54.5 Active 598685602 ALLERGIES No Information ENCOUNTERS Encounter Location Date Diagnosis [facility] [address] [id number], [place] [address] Nov, [facility] [address] [id number] [id number] Oct, [facility] [address] [id number] [address] Oct, [facility] [address] [id number], [place] [address] Sep, [facility] [id number] [place] [address] Sep, [facility] [id number] [place] [address] Sep, [facility] [id number] [place] [id number] Aug, Dental examination Z01.20 [facility] [id number] [place] [address] Aug, Abscess of axilla, left L02.412 [facility] [id number] [place] [address] Aug, Esophageal reflux K21.9 [facility] [id number] [place] [address] Aug, [facility] [address] [address] Aug, Esophageal reflux K21.9 ; Fluid level behind tympanic membrane of right ear H65.91 ; Fibromyalgia M79.7 and Lumbago M54.5 [facility] [id number] [place] [address] Aug, Esophageal reflux K21.9 [facility] [id number] [place] [address] July, [facility] [id number] [place] [address] July, [facility] [id number] [place] [address] July, Chronic obstructive pulmonary disease, unspecified COPD type J44.9 [facility] [id number] [place] [address] July, [facility] [id number] [place] [address] July, [facility] [id number] [place] [address] July, Interstitial cystitis N30.10 ; Fibromyalgia M79.7 [...] Dysuria R30.0 and Generalized anxiety disorder F41.1 [place] [address] [address] Jun, [place] [address] [address] Jun, Chronic obstructive pulmonary disease, unspecified COPD type J44.9 ; COPD exacerbation J44.1 and Sore throat J02.9 [place] [address] [address] Jun, Fibromyalgia M79.7 [place] [address] [address] Jun, Fibromyalgia M79.7 [place] [address] [address] May, [place] [id number] [place] [address] May, [place] [address] [address] May, Fibromyalgia M79.7 [place] [address] [address] Mar, [place] [address] [address] Mar, Epilepsy G40.909 ; Lumbago M54.5 ; Esophageal reflux K21.9 ; Fibromyalgia M79.7 ; Chronic obstructive pulmonary disease, unspecified COPD type J44.9 ; Vitamin D deficiency E55.9 ; Fluid level behind tympanic membrane of right ear H65.91 ; Irritable bowel syndrome with diarrhea K58.0 ; Hematochezia K92.1 and Generalized anxiety disorder F41.1 [facility] [id number] [place] [address] Mar, [facility] [address] [address] Mar, [facility] [id number] [place] [address] Mar, Vitamin D deficiency E55.9 [facility] [address] [address] Feb, [facility] [id number] [place] [address] Feb, [facility] [address] [address] Jan, Fibromyalgia M79.7 [facility] [id number] [place] [address] Jan, [facility] [id number] [place] [address] Jan, [facility] [id number] [place] [address] Jan, Vitamin D deficiency E55.9 [facility] [id number] [place] [address] Dec, [facility] [id number] [place] [address] Dec, [facility] [id number] [place] [address] Dec, Generalized anxiety disorder F41.1 [facility] [id number] [place] [address] 02 Oct, 2017 Dysuria R30.0 ; Acute bilateral low back pain without sciatica M54.5 and Encounter for immunization Z23 [facility] [id number] [place] [address] Oct, [facility] [id number] [place] [address] Oct, Fibromyalgia M79.7 [facility] [id number] [place] [address] Sep, Dysuria R30.0 and Acute bronchitis, unspecified organism J20.9 [facility] [id number] [place] [address] Sep, [facility] [id number] [place] [address] Sep, Rectal prolapse K62.3 [facility] [id number] [place] [address] Sep, Chronic obstructive pulmonary disease, unspecified COPD type J44.9 [facility] [id number] [place] [id number] Aug, [facility] [id number] [place] [id number] Aug, [facility] [id number] [place] [address] Aug, Light headedness R42 ; On antiepileptic therapy Z79.899 ; Vitamin D deficiency E55.9 ; Screening for lipid disorders Z13.220 ; Dysuria R30.0 and Hemorrhoids, unspecified hemorrhoid type K64.9 [facility] [id number] [place] [address] Aug, Internal prolapsed hemorrhoids K64.8 [facility] [id number] [place] [address] July, [facility] [id number] [place] [address] May, [place] [id number] [place] [address] May, Fever and chills R50.9 and Influenza B J10.1 [place] [id number] [place] [address] Apr, [address] [address] Apr, Fibromyalgia M79.7 and Generalized anxiety disorder F41.[address] [address] Mar, Esophageal reflux K21.9 ; Generalized anxiety disorder F41.1 and Epilepsy G40.909 [place] [address] [address] Mar, Epilepsy G40.909 ; Esophageal reflux K21.9 ; Fibromyalgia M79.7 ; Generalized anxiety disorder F41.1 ; Pain of left foot M79.672 ; Pain in right foot M79.671 ; Ear pain, right H92.01 ; Tinnitus of both ears H93.13 ; Chronic obstructive pulmonary disease, unspecified COPD type J44.9 ; Vitamin D deficiency E55.9 ; Screening for lipid disorders Z13.220 and On antiepileptic therapy Z79.899 [place] [id number] [place] [address] Feb, [place] [id number] [place] [address] Feb, [facility] [id number] [place] [address] Feb, Dysuria R30.0 and Plantar fasciitis of right foot M72.2 [place] [address] [address] Feb, [place] [address] [address] Feb, [facility] [id number] [place] [address] Jan, [facility] [id number] [place] [address] Jan, [facility] [id number] [place] [address] Dec, [facility] [address] [address] Dec, [facility] [id number] [place] [address] Dec, [facility] [id number] [place] [address] Nov, [facility] [id number] [place] [address] Sep, [facility] [id number] [place] [address] Aug, Shortness of breath R06.02 and Acute suppurative otitis media of right ear without spontaneous rupture of tympanic membrane, recurrence not specified H66.001 [place] [id number] [place] [address] 14 Aug, 2015 Internal prolapsed hemorrhoids K64.8 [place] [id number] [place] [address] Jun, 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 [facility] [id number] [place] [address] May, Fibromyalgia M79.7 ; Interstitial cystitis N30.10 ; Intractable migraine without aura and without status migrainosus G43.019 ; Low vitamin D level E55.9 and Ringing in right ear H93.11 [facility] [id number] [place] [address] May, [facility] [address] [address] May, Low vitamin D level E55.9 [facility] [address] [address] Apr, [facility] [address] [address] Mar, [facility] [address] [address] Mar, Acute suppurative otitis media of right ear without spontaneous rupture of tympanic membrane, recurrence not specified H66.001 ; Encounter for immunization Z23 ; Asthma with acute exacerbation, unspecified asthma severity J45.901 ; Memory problem R41.3 ; Acute pain of right knee M25.561 ; Chronic fatigue R53.82 and Excessive urinary volume R35.8 [facility] [address] [address] Feb, [facility] [address] [address] Feb, [facility] [address] [address] Jan, [facility] [address] [address] Nov, Esophageal reflux 530.81 ; Anxiety 300.00 and Tingling in extremities 782.0 [facility] [id number] [place] [address] Oct, [facility] [address] [address] Oct, [facility] [address] [address] Oct, [facility] [address] [address] Oct, [facility] [address] [address] Oct, [facility] [address] [address] Sep, Other chronic allergic conjunctivitis 372.14 ; Irritable bowel syndrome 564.1 ; 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 ; Fibromyalgia 729.1 ; Extremity pain 729.5 and Neck pain 723.1 [facility] [address] [place] [address] Sep, [facility] [id number] [place] [address] Aug, [facility] [id number] [place] [address] Aug, [facility] [id number] [place] [address] July, Vomiting 787.03 [facility] [id number] [place] [id number] July, Dental examination V72.2 [facility] [address] [place] [address] Jun, [facility] [address] [place] [address] Jun, [facility] [address], [place] [address] May, [facility] [id number] [place] [address] May, [facility] [address] [place] [address] May, [facility] [id number] [place] [address] May, [facility] [address] [address] May, [facility] [id number] [place] [address] May, [facility] [place] [facility] [address] [id number] [place] [address] May, [facility] [place] [facility] [address] [id number] [place] [address] May, [facility] [place] [facility] [address] [id number] [place] [address] May, [facility] [place] [facility] [address] [id number] [place] [address] Apr, 2014 [facility] [place] [facility] [address] [id number] [place] [address] Apr, 2014 [facility] [place] [facility] [address] [id number] [place] [address] Apr, 2014 [facility] [place] [facility] [address] [id number] [place] [address] Apr, 2014 [facility] [place] [facility] [address] [id number] [place] [address] Apr, [facility] [place] [facility] [address] [id number] [place] [address] Apr, [facility] [place] [facility] [address] [facility] [id number] [place] [address] Mar, [facility] [place] [facility] [address] [id number] [place] [address] Mar, [facility] [place] [facility] [address] [id number] [place] [address] Mar, [facility] [place] [facility] [address] [id number] [place] [address] Mar, [facility] [place] [facility] [address] [id number] [place] [address] Mar, [facility] [place] [facility] [address] [id number] [place] [address] Mar, [facility] [place] [facility] [address] [id number] [place] [address] Mar, [facility] [address] [id number] [place] [address] Mar, [facility] [place] [facility] [address] [id number] [place] [address] Mar, [facility] [place] [facility] [address] [id number] [place] [address] Mar, [facility] [address] [id number] [place] [address] Mar, [facility] [place] [facility] [address] [id number] [place] [address] Mar, [facility] [address] [id number] [place] [address] Mar, [facility] [address] [id number] [place] [address] Mar, [facility] [address] [id number] [place] [address] Mar, [facility] [place] [facility] [address] [id number] [place] [address] Mar, [facility] [place] [facility] [address] [id number] [place] [address] Mar, [facility] [place] [facility] [address] [id number], [place] [address] Mar, [facility] [place] [facility] [address] [id number] [place] [address] Mar, [facility] [place] [facility] [address] [id number] [place] [address] Feb, [facility] [place] [facility] [address] [id number] [place] [address] Feb, [facility] [place] [facility] [address] [id number] [place] [address] Feb, [facility] [place] [facility] [address] [id number] [place] [address] Feb, [facility] [place] [facility] [address] [id number] [place] [address] Jan, [facility] [place] [facility] [address] [id number] [place] [address] Jan, [facility] [place] [facility] [address] [id number] [place] [address] Jan, [facility] [place] [facility] [address] [id number] [place] [address] Jan, [facility] [place] [facility] [address] [id number] [place] [address] Jan, [facility] [place] [facility] [address] [id number] [place] [address] Jan, [facility] [place] [facility] [address] [id number] [place] [address] Jan, [facility] [place] [facility] [address] [id number] [place] [address] Jan, [facility] [place] [facility] [address] [id number] [place] [address] Dec, [facility] [place] [facility] [address] [id number] [place] [address] Dec, [facility] [place] [facility] [address] [id number], [place] [address] Dec, [facility] [place] [facility] [address] [id number] [place] [address] Dec, [facility] [place] [facility] [address] [id number] [place] [address] Nov, [facility] [place] [facility] [address] [id number] [place] [address] Nov, [facility] [place] [facility] [address] [id number] [place] [address] 08 Sep, 2013 [facility] [place] [facility] [address] [id number] [place] [address] 08 Sep, 2013 [facility] [place] [facility] [address] [id number] [place] [address] 05 Sep, 2013 [facility] [place] [facility] [address] [id number] [place] [address] 05 Sep, 2013 [facility] [place] [facility] [address] [id number] [place] [address] 04 Sep, 2013 [facility] [place] [facility] [address] [id number] [place] [address] 04 Nov, 2013 [facility] [place] [facility] [address] [id number] [place] [address] 03 Nov, 2013 [facility] [place] [facility] [address] [id number] [place] [address] Nov, 2013 [facility] [place] [facility] [address] [id number] [place] [address] Oct, [facility] [place] [facility] [address] [id number] [place] [address] Oct, [facility] [place] [facility] [address] [id number] [place] [address] Sep, [facility] [place] [facility] [address] [id number] [place] [address] Sep, [facility] [place] [facility] [address] [id number] [place] [address] Sep, [facility] [place] [facility] [address] [id number] [place] [address] Sep, [facility] [place] [facility] [address] [id number] [place] [address] Sep, [facility] [place] [facility] [address] [id number] [place] [address] Sep, [facility] [place] [facility] [address] [id number] [place] [address] Aug, [facility] [place] [facility] [address] [id number] [place] [address] Aug, [facility] [place] [facility] [address] [id number] [place] [address] Aug, [facility] [place] [facility] [address] [id number] [place] [address] Aug, [facility] [place] [facility] [address] [id number] [place] [address] Aug, [facility] [place] [facility] [address] [id number] [place] [address] Aug, [facility] [place] [facility] [address] [id number] [place] [address] July, [facility] [place] [facility] [address] [id number] [place] [address] July, [facility] [place] [facility] [address] [id number] [place] [address] July, [facility] [place] [facility] [address] [id number] [place] [address] July, [facility] [place] [facility] [address] [id number] [place] [address] July, [facility] [place] [facility] [address] [id number] [place] [address] July, [facility] [place] [facility] [address] [id number] [place] [address] Jun, [facility] [place] [facility] [address] [id number] [place] [address] Jun, [facility] [place] [facility] [address] [id number] [place] [address] Jun, [facility] [place] [facility] [address] [id number] [place] [address] Jun, [facility] [place] [facility] [address] [id number] [place] [address] May, [facility] [place] [facility] [address] [id number] [place] [address] May, [facility] [place] [facility] [address] [id number] [place] [address] Apr, [facility] [place] [facility] [address] [id number] [place] [address] Apr, [facility] [place] [facility] [address] [id number] [place] [address] Apr, [facility] [place] [facility] [address] [id number] [place] [address] Apr, [facility] [place] [facility] [address] [id number] [place] [address] Mar, [facility] [place] [facility] [address] [id number] [place] [address] Mar, [facility] [place] [facility] [address] [id number] [place] [address] Mar, [facility] [place] [facility] [address] [id number] [place] [address] Mar, [facility] [place] [facility] [address] [id number] [place] [address] Mar, [facility] [place] [facility] [address] [id number] [place] [address] Mar, [facility] [place] [facility] [address] [id number] [place] [address] Feb, [facility] [place] [facility] [address] [id number] [place] [address] Feb, [facility] [place] [facility] [address] [id number] [place] [address] Jan, [facility] [place] [facility] [address] [id number] [place] [address] Jan, [facility] [place] [facility] [address] [id number] [place] [address] Jan, [facility] [place] [facility] [address] [id number] [place] [address] Jan, [facility] [place] [facility] [address] [id number] [place] [address] Nov, [facility] [place] [facility] [address] [id number] [place] [address] Nov, [facility] [place] [facility] [address] [id number] [place] [address] Oct, [facility] [place] [facility] [address] [id number] [place] [address] Oct, [facility] [place] [facility] [address] [id number] [place] [address] Sep, [facility] [place] [facility] [address] [id number] [place] [address] Sep, [facility] [place] [facility] [address] [id number] [place] [address] Sep, [facility] [place] [facility] [address] [id number] [place] [address] Aug, [facility] [place] [facility] [address] [id number] [place] [address] Aug, [facility] [place] [facility] [address] [id number] [place] [address] Aug, [facility] [place] [facility] [address] [id number] [place] [address] Aug, [facility] [place] [facility] [address] [id number] [place] [address] July, [facility] [place] [facility] [address] [id number], [place] [address] July, [facility] [address] [id number] [place] [address] July, [facility] [address] [id number] [place] [address] July, [facility] [address] [id number] [place] [address] Jun, [facility] [address] [id number] [place] [address] Jun, [facility] [address] [id number] [place] [address] Jun, [facility] [address] [id number] [place] [address] May, [facility] [address] [id number] [place] [address] May, [facility] [address] [id number] [place] [address] Apr, [facility] [address] [id number] [place] [address] Apr, [facility] [address] [id number] [place] [address] Apr, [facility] [address] [id number] [place] [address] Apr, [facility] [address] [id number], [place] [address] Mar, [facility] [address] [id number] [place] [address] Mar, [facility] [place] [facility] [address] [id number], [place] [address] Mar, [facility] [address] [facility] [id number], [place] [address] Mar, [facility] [place] [facility] [address] [id number] [place] [address] 11 Feb, 2012 [facility] [place] [facility] [address] [id number] [place] [address] 10 Feb, 2012 [facility] [place] [facility] [address] [id number] [place] [address] 10 Feb, 2012 [facility] [place] [facility] [address] [id number] [place] [address] 10 Feb, 2012 [facility] [place] [facility] [address] [id number] [place] [address] 10 Feb, 2012 [facility] [place] [facility] [address] [id number] [place] [address] 06 Feb, 2012 [facility] [place] [facility] [address] [id number] [place] [address] 04 Feb, 2012 [facility] [place] [facility] [address] [id number] [place] [address] 04 Feb, 2012 [facility] [place] [facility] [address] [id number] [place] [address] 28 Jan, 2012 [facility] [place] [facility] [address] [id number] [place] [address] 28 Jan, 2012 [facility] [place] [facility] [address] [id number] [place] [address] 15 Jan, 2012 [facility] [place] [facility] [address] [id number] [place] [address] 15 Jan, 2012 [facility] [place] [facility] [address] [id number] [place] [address] 14 Jan, 2012 [facility] [place] [facility] [address] [id number] [place] [address] 13 Jan, 2012 [facility] [place] [facility] [address] [id number] [place] [address] 13 Jan, 2012 [facility] [place] [facility] [address] [id number] [place] [address] Jan, [facility] [place] [facility] [address] [id number] [place] [address] Jan, [facility] [place] [facility] [address] [id number], [place] [address] Jan, [facility] [place] [facility] [address] [facility] [id number] [place] [address] Jan, [facility] [place] [facility] [address] [id number], [place] [address] Dec, [facility] [place] [facility] [address] [id number] [place] [address] Dec, [facility] [place] [facility] [address] [id number], [place] [address] Dec, [facility] [place] [facility] [address] [id number] [place] [address] Dec, [facility] [place] [facility] [address] [id number], [place] [address] Dec, [facility] [place] [facility] [address] [id number], [place] [address] Dec, [facility] [place] [facility] [address] [facility] [id number], [place] [address] Dec, [facility] [place] [facility] [address] [id number], [place] [address] Dec, [facility] [place] [facility] [address] [id number], [place] [address] Dec, [facility] [place] [facility] [address] [id number], [place] [address] Dec, [facility] [place] [facility] [address] [facility] [id number], [place] [address] Dec, [facility] [place] [facility] [address] [facility] [id number], [place] [address] Dec, [facility] [place] [facility] [address] [id number] [place] [address] Nov, [facility] [place] [facility] [address] [id number] [place] [address] Oct, [facility] [place] [facility] [address] [id number] [place] [address] Oct, [facility] [place] [facility] [address] [id number] [place] [address] Oct, [facility] [place] [facility] [address] [id number] [place] [address] Oct, [facility] [place] [facility] [address] [id number] [place] [address] Sep, [facility] [place] [facility] [address] [id number] [place] [address] Sep, [facility] [place] [facility] [address] [id number] [place] [address] Sep, [facility] [place] [facility] [address] [id number] [place] [address] Sep, [facility] [place] [facility] [address] [id number] [place] [address] Aug, [facility] [place] [facility] [address] [id number] [place] [address] Aug, [facility] [place] [facility] [address] [id number] [place] [address] Aug, [facility] [place] [facility] [address] [id number] [place] [address] Aug, [facility] [place] [facility] [address] [id number] [place] [address] Aug, [facility] [place] [facility] [address] [id number] [place] [address] July, [facility] [place] [facility] [address] [id number] [place] [address] July, [facility] [address] [facility] [id number] [place] [address] July, [facility] [address] [facility] [id number], [place] [address] Dec, IMMUNIZATIONS No Known Immunizations SOCIAL HISTORY Never Assessed REASON FOR VISIT Medication Request PLAN OF CARE VITAL SIGNS MEDICATIONS Medication Instructions Dosage Frequency Start Date End Date Duration Status Ventolin HFA 108 (90 Base) MCG/ACT Inhalation every 4-6 hrs 2 puffs as needed July, Active Symbicort 160-4.5 MCG/ACT Inhalation Twice a day 2 puffs 12h July, Active RESULTS No Results PROCEDURES No [...]
--- OUTSIDE RECORDS SUMMARY | 2018-10-24 12:27 | XMS REPORT ---
Author Author NELSON DIANN [facility] Address [address] [place] [address] Care Team Providers Care Psychiatric Secretary Name Role Phone NELSONPRADEEP BURGOSHANY Unavailable PROBLEMS Type Condition ICD9-CM Code MGE21-IO Code Onset Dates Condition Status SNOMED Code Problem Fibromyalgia M79.7 Active 28269757 Problem Tinnitus of both ears H93.13 Active 5913035762408 Problem Irritable bowel syndrome without diarrhea K58.9 Active 58210765 Problem COPD exacerbation J44.1 Active 142831922 Problem Menopausal symptoms N95.1 Active 35132510 Problem On antiepileptic therapy Z79.899 Active 345632476 Problem Chronic obstructive pulmonary disease, unspecified COPD type J44.9 Active 17025602 Problem Irritable bowel syndrome with diarrhea K58.0 Active 337149691 Problem Vitamin D deficiency E55.9 Active 33847369 Problem MRSA (methicillin resistant staph aureus) culture positive Z22.322 Active 744262600 Problem Epilepsy G40.909 Active 80968435 Problem Generalized anxiety disorder F41.1 Active 718177775 Problem Interstitial cystitis N30.10 Active 623433443 Problem Esophageal reflux K21.9 Active 010015549 Problem Major depressive disorder F32.9 Active 029897239 Problem Lumbago M54.5 Active 785126633 ALLERGIES No Information ENCOUNTERS Encounter Location Date Diagnosis [facility] [address] [id number] [address] Nov, [facility] [address] [id number] [id number] Oct, [facility] [address] [id number] [address] Oct, [facility] [address] [id number] [address] Sep, [facility] [id number] [place] [address] Sep, [facility] [id number] [place] [address] Sep, [facility] [id number] [place] [id number] Aug, Dental examination Z01.20 [facility] [id number] [place] [address] Aug, Abscess of axilla, left L02.412 [facility] [id number] [place] [address] Aug, Esophageal reflux K21.9 [facility] [id number] [place] [address] Aug, [facility] [address] [address] Aug, Esophageal reflux K21.9 ; Fluid level behind tympanic membrane of right ear H65.91 ; Fibromyalgia M79.7 and Lumbago M54.5 [facility] [id number] [place] [address] Aug, Esophageal reflux K21.9 [facility] [id number] [place] [address] July, [facility] [id number] [place] [address] July, [facility] [id number] [place] [address] July, Chronic obstructive pulmonary disease, unspecified COPD type J44.9 [facility] [id number] [place] [address] July, [facility] [id number] [place] [address] July, [facility] [id number] [place] [address] July, Interstitial cystitis N30.10 ; Fibromyalgia M79.7 [...] Dysuria R30.0 and Generalized anxiety disorder F41.1 [place] [address] [address] Jun, [place] [address] [address] Jun, Chronic obstructive pulmonary disease, unspecified COPD type J44.9 ; COPD exacerbation J44.1 and Sore throat J02.9 [place] [address] [address] Jun, Fibromyalgia M79.7 [place] [address] [address] Jun, Fibromyalgia M79.7 [place] [address] [address] May, [place] [id number] [place] [address] May, [place] [address] [address] May, Fibromyalgia M79.7 [place] [address] [address] Mar, [place] [address] [address] Mar, Epilepsy G40.909 ; Lumbago M54.5 ; Esophageal reflux K21.9 ; Fibromyalgia M79.7 ; Chronic obstructive pulmonary disease, unspecified COPD type J44.9 ; Vitamin D deficiency E55.9 ; Fluid level behind tympanic membrane of right ear H65.91 ; Irritable bowel syndrome with diarrhea K58.0 ; Hematochezia K92.1 and Generalized anxiety disorder F41.1 [facility] [id number] [place] [address] Mar, [facility] [address] [address] Mar, [facility] [id number] [place] [address] Mar, Vitamin D deficiency E55.9 [facility] [address] [address] Feb, [facility] [id number] [place] [address] Feb, [facility] [address] [address] Jan, Fibromyalgia M79.7 [facility] [id number] [place] [address] Jan, [facility] [id number] [place] [address] Jan, [facility] [id number] [place] [address] Jan, Vitamin D deficiency E55.9 [facility] [id number] [place] [address] Dec, [facility] [id number] [place] [address] Dec, [facility] [id number] [place] [address] Dec, Generalized anxiety disorder F41.1 [facility] [id number] [place] [address] 02 Oct, 2017 Dysuria R30.0 ; Acute bilateral low back pain without sciatica M54.5 and Encounter for immunization Z23 [facility] [id number] [place] [address] Oct, [facility] [id number] [place] [address] Oct, Fibromyalgia M79.7 [facility] [id number] [place] [address] Sep, Dysuria R30.0 and Acute bronchitis, unspecified organism J20.9 [facility] [id number] [place] [address] Sep, [facility] [id number] [place] [address] Sep, Rectal prolapse K62.3 [facility] [id number] [place] [address] Sep, Chronic obstructive pulmonary disease, unspecified COPD type J44.9 [facility] [id number] [place] [id number] Aug, [facility] [id number] [place] [id number] Aug, [facility] [id number] [place] [address] Aug, Light headedness R42 ; On antiepileptic therapy Z79.899 ; Vitamin D deficiency E55.9 ; Screening for lipid disorders Z13.220 ; Dysuria R30.0 and Hemorrhoids, unspecified hemorrhoid type K64.9 [facility] [id number] [place] [address] Aug, Internal prolapsed hemorrhoids K64.8 [facility] [id number] [place] [address] July, [facility] [id number] [place] [address] May, [place] [id number] [place] [address] May, Fever and chills R50.9 and Influenza B J10.1 [place] [id number] [place] [address] Apr, [address] [address] Apr, Fibromyalgia M79.7 and Generalized anxiety disorder F41.[address] [address] Mar, Esophageal reflux K21.9 ; Generalized anxiety disorder F41.1 and Epilepsy G40.909 [place] [address] [address] Mar, Epilepsy G40.909 ; Esophageal reflux K21.9 ; Fibromyalgia M79.7 ; Generalized anxiety disorder F41.1 ; Pain of left foot M79.672 ; Pain in right foot M79.671 ; Ear pain, right H92.01 ; Tinnitus of both ears H93.13 ; Chronic obstructive pulmonary disease, unspecified COPD type J44.9 ; Vitamin D deficiency E55.9 ; Screening for lipid disorders Z13.220 and On antiepileptic therapy Z79.899 [place] [id number] [place] [address] Feb, [place] [id number] [place] [address] Feb, [facility] [id number] [place] [address] Feb, Dysuria R30.0 and Plantar fasciitis of right foot M72.2 [place] [address] [address] Feb, [place] [address] [address] Feb, [facility] [id number] [place] [address] Jan, [facility] [id number] [place] [address] Jan, [facility] [id number] [place] [address] Dec, [facility] [address] [address] Dec, [facility] [id number] [place] [address] Dec, [facility] [id number] [place] [address] Nov, [facility] [id number] [place] [address] Sep, [facility] [id number] [place] [address] Aug, Shortness of breath R06.02 and Acute suppurative otitis media of right ear without spontaneous rupture of tympanic membrane, recurrence not specified H66.001 [place] [id number] [place] [address] 14 Aug, 2015 Internal prolapsed hemorrhoids K64.8 [place] [id number] [place] [address] Jun, 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 [facility] [id number] [place] [address] May, Fibromyalgia M79.7 ; Interstitial cystitis N30.10 ; Intractable migraine without aura and without status migrainosus G43.019 ; Low vitamin D level E55.9 and Ringing in right ear H93.11 [facility] [id number] [place] [address] May, [facility] [address] [address] May, Low vitamin D level E55.9 [facility] [address] [address] Apr, [facility] [address] [address] Mar, [facility] [address] [address] Mar, Acute suppurative otitis media of right ear without spontaneous rupture of tympanic membrane, recurrence not specified H66.001 ; Encounter for immunization Z23 ; Asthma with acute exacerbation, unspecified asthma severity J45.901 ; Memory problem R41.3 ; Acute pain of right knee M25.561 ; Chronic fatigue R53.82 and Excessive urinary volume R35.8 [facility] [address] [address] Feb, [facility] [address] [address] Feb, [facility] [address] [address] Jan, [facility] [address] [address] Nov, Esophageal reflux 530.81 ; Anxiety 300.00 and Tingling in extremities 782.0 [facility] [id number] [place] [address] Oct, [facility] [address] [address] Oct, [facility] [address] [address] Oct, [facility] [address] [address] Oct, [facility] [address] [address] Oct, [facility] [address], [place] [address] Sep, Other chronic allergic conjunctivitis 372.14 ; Irritable bowel syndrome 564.1 ; 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 ; Fibromyalgia 729.1 ; Extremity pain 729.5 and Neck pain 723.1 [facility] [address] [place] [address] Sep, [facility] [id number] [place] [address] Aug, [facility] [id number] [place] [address] Aug, [facility] [id number] [place] [address] July, Vomiting 787.03 [facility] [id number] [place] [id number] July, Dental examination V72.2 [facility] [id number] [place] [address] Jun, [facility] [address] [place] [address] Jun, [facility] [address], [place] [address] May, [facility] [id number] [place] [address] May, [facility] [id number] [place] [address] May, [facility] [id number] [place] [address] May, [facility] [address], [place] [address] May, [facility] [id number] [place] [address] May, [facility] [place] [facility] [address] [id number] [place] [address] May, [facility] [place] [facility] [address] [id number] [place] [address] May, [facility] [place] [facility] [address] [id number] [place] [address] May, [facility] [place] [facility] [address] [id number] [place] [address] Apr, 2014 [facility] [place] [facility] [address] [id number] [place] [address] Apr, 2014 [facility] [place] [facility] [address] [id number] [place] [address] Apr, 2014 [facility] [place] [facility] [address] [id number] [place] [address] Apr, 2014 [facility] [place] [facility] [address] [id number] [place] [address] Apr, [facility] [place] [facility] [address] [id number] [place] [address] Apr, [facility] [place] [facility] [address] [facility] [id number] [place] [address] Mar, [facility] [place] [facility] [address] [id number] [place] [address] Mar, [facility] [place] [facility] [address] [id number] [place] [address] Mar, [facility] [place] [facility] [address] [id number] [place] [address] Mar, [facility] [place] [facility] [address] [id number] [place] [address] Mar, [facility] [place] [facility] [address] [id number] [place] [address] Mar, [facility] [place] [facility] [address] [id number] [place] [address] Mar, [facility] [address] [id number] [place] [address] Mar, [facility] [place] [facility] [address] [id number] [place] [address] Mar, [facility] [place] [facility] [address] [id number] [place] [address] Mar, [facility] [address] [id number] [place] [address] Mar, [facility] [place] [facility] [address] [id number] [place] [address] Mar, [facility] [address] [id number] [place] [address] Mar, [facility] [address] [id number] [place] [address] Mar, [facility] [address] [id number] [place] [address] Mar, [facility] [place] [facility] [address] [id number] [place] [address] Mar, [facility] [place] [facility] [address] [id number] [place] [address] Mar, [facility] [place] [facility] [address] [id number], [place] [address] Mar, [facility] [place] [facility] [address] [id number] [place] [address] Mar, [facility] [place] [facility] [address] [id number] [place] [address] Feb, [facility] [place] [facility] [address] [id number] [place] [address] Feb, [facility] [place] [facility] [address] [id number] [place] [address] Feb, [facility] [place] [facility] [address] [id number] [place] [address] Feb, [facility] [place] [facility] [address] [id number] [place] [address] Jan, [facility] [place] [facility] [address] [id number] [place] [address] Jan, [facility] [place] [facility] [address] [id number] [place] [address] Jan, [facility] [place] [facility] [address] [id number] [place] [address] Jan, [facility] [place] [facility] [address] [id number] [place] [address] Jan, [facility] [place] [facility] [address] [id number] [place] [address] Jan, [facility] [place] [facility] [address] [id number] [place] [address] Jan, [facility] [place] [facility] [address] [id number] [place] [address] Jan, [facility] [place] [facility] [address] [id number] [place] [address] Dec, [facility] [place] [facility] [address] [id number] [place] [address] Dec, [facility] [place] [facility] [address] [id number], [place] [address] Dec, [facility] [place] [facility] [address] [id number] [place] [address] Dec, [facility] [place] [facility] [address] [id number] [place] [address] Nov, [facility] [place] [facility] [address] [id number] [place] [address] Nov, [facility] [place] [facility] [address] [id number] [place] [address] 08 Sep, 2013 [facility] [place] [facility] [address] [id number] [place] [address] 08 Sep, 2013 [facility] [place] [facility] [address] [id number] [place] [address] 05 Sep, 2013 [facility] [place] [facility] [address] [id number] [place] [address] 05 Sep, 2013 [facility] [place] [facility] [address] [id number] [place] [address] 04 Sep, 2013 [facility] [place] [facility] [address] [id number] [place] [address] 04 Nov, 2013 [facility] [place] [facility] [address] [id number] [place] [address] 03 Nov, 2013 [facility] [place] [facility] [address] [id number] [place] [address] Nov, 2013 [facility] [place] [facility] [address] [id number] [place] [address] Oct, [facility] [place] [facility] [address] [id number] [place] [address] Oct, [facility] [place] [facility] [address] [id number] [place] [address] Sep, [facility] [place] [facility] [address] [id number] [place] [address] Sep, [facility] [place] [facility] [address] [id number] [place] [address] Sep, [facility] [place] [facility] [address] [id number] [place] [address] Sep, [facility] [place] [facility] [address] [id number] [place] [address] Sep, [facility] [place] [facility] [address] [id number] [place] [address] Sep, [facility] [place] [facility] [address] [id number] [place] [address] Aug, [facility] [place] [facility] [address] [id number] [place] [address] Aug, [facility] [place] [facility] [address] [id number] [place] [address] Aug, [facility] [place] [facility] [address] [id number] [place] [address] Aug, [facility] [place] [facility] [address] [id number] [place] [address] Aug, [facility] [place] [facility] [address] [id number] [place] [address] Aug, [facility] [place] [facility] [address] [id number] [place] [address] July, [facility] [place] [facility] [address] [id number] [place] [address] July, [facility] [place] [facility] [address] [id number] [place] [address] July, [facility] [place] [facility] [address] [id number] [place] [address] July, [facility] [place] [facility] [address] [id number] [place] [address] July, [facility] [place] [facility] [address] [id number] [place] [address] July, [facility] [place] [facility] [address] [id number] [place] [address] Jun, [facility] [place] [facility] [address] [id number] [place] [address] Jun, [facility] [place] [facility] [address] [id number] [place] [address] Jun, [facility] [place] [facility] [address] [id number] [place] [address] Jun, [facility] [place] [facility] [address] [id number] [place] [address] May, [facility] [place] [facility] [address] [id number] [place] [address] May, [facility] [place] [facility] [address] [id number] [place] [address] Apr, [facility] [place] [facility] [address] [id number] [place] [address] Apr, [facility] [place] [facility] [address] [id number] [place] [address] Apr, [facility] [place] [facility] [address] [id number] [place] [address] Apr, [facility] [place] [facility] [address] [id number] [place] [address] Mar, [facility] [place] [facility] [address] [id number] [place] [address] Mar, [facility] [place] [facility] [address] [id number] [place] [address] Mar, [facility] [place] [facility] [address] [id number] [place] [address] Mar, [facility] [place] [facility] [address] [id number] [place] [address] Mar, [facility] [place] [facility] [address] [id number] [place] [address] Mar, [facility] [place] [facility] [address] [id number] [place] [address] Feb, [facility] [place] [facility] [address] [id number] [place] [address] Feb, [facility] [place] [facility] [address] [id number] [place] [address] Jan, [facility] [place] [facility] [address] [id number] [place] [address] Jan, [facility] [place] [facility] [address] [id number] [place] [address] Jan, [facility] [place] [facility] [address] [id number] [place] [address] Jan, [facility] [place] [facility] [address] [id number] [place] [address] Nov, [facility] [place] [facility] [address] [id number] [place] [address] Nov, [facility] [place] [facility] [address] [id number] [place] [address] Oct, [facility] [place] [facility] [address] [id number] [place] [address] Oct, [facility] [place] [facility] [address] [id number] [place] [address] Sep, [facility] [place] [facility] [address] [id number] [place] [address] Sep, [facility] [place] [facility] [address] [id number] [place] [address] Sep, [facility] [place] [facility] [address] [id number] [place] [address] Aug, [facility] [place] [facility] [address] [id number] [place] [address] Aug, [facility] [place] [facility] [address] [id number] [place] [address] Aug, [facility] [place] [facility] [address] [id number] [place] [address] Aug, [facility] [place] [facility] [address] [id number] [place] [address] July, [facility] [place] [facility] [address] [id number] [address] July, [facility] [address] [id number] [place] [address] July, [facility] [address] [id number] [place] [address] July, [facility] [address] [id number] [place] [address] Jun, [facility] [address] [address] [id number] [place] [address] Jun, [facility] [address] [id number] [place] [address] Jun, [facility] [address] [id number] [place] [address] May, [facility] [address] [id number] [place] [address] May, [facility] [address] [id number] [place] [address] Apr, [facility] [address] [id number] [place] [address] Apr, [facility] [address] [id number] [place] [address] Apr, [facility] [address] [id number] [place] [address] Apr, [facility] [address] [id number], [place] [address] Mar, [facility] [address] [id number] [place] [address] Mar, [facility] [place] [facility] [address] [id number], [place] [address] Mar, [facility] [address] [facility] [id number], [place] [address] Mar, [facility] [place] [facility] [address] [id number] [place] [address] 11 Feb, 2012 [facility] [place] [facility] [address] [id number] [place] [address] 10 Feb, 2012 [facility] [place] [facility] [address] [id number] [place] [address] 10 Feb, 2012 [facility] [place] [facility] [address] [id number] [place] [address] 10 Feb, 2012 [facility] [place] [facility] [address] [id number] [place] [address] 10 Feb, 2012 [facility] [place] [facility] [address] [id number] [place] [address] 06 Feb, 2012 [facility] [place] [facility] [address] [id number] [place] [address] 04 Feb, 2012 [facility] [place] [facility] [address] [id number] [place] [address] 04 Feb, 2012 [facility] [place] [facility] [address] [id number] [place] [address] 28 Jan, 2012 [facility] [place] [facility] [address] [id number] [place] [address] 28 Jan, 2012 [facility] [place] [facility] [address] [id number] [place] [address] 15 Jan, 2012 [facility] [place] [facility] [address] [id number] [place] [address] 15 Jan, 2012 [facility] [place] [facility] [address] [id number] [place] [address] 14 Jan, 2012 [facility] [place] [facility] [address] [id number] [place] [address] 13 Jan, 2012 [facility] [place] [facility] [address] [id number] [place] [address] 13 Jan, 2012 [facility] [place] [facility] [address] [id number] [place] [address] Jan, [facility] [place] [facility] [address] [id number] [place] [address] Jan, [facility] [place] [facility] [address] [id number], [place] [address] Jan, [facility] [place] [facility] [address] [facility] [id number] [place] [address] Jan, [facility] [place] [facility] [address] [id number], [place] [address] Dec, [facility] [place] [facility] [address] [id number] [place] [address] Dec, [facility] [place] [facility] [address] [id number], [place] [address] Dec, [facility] [place] [facility] [address] [id number] [place] [address] Dec, [facility] [place] [facility] [address] [id number], [place] [address] Dec, [facility] [place] [facility] [address] [id number], [place] [address] Dec, [facility] [place] [facility] [address] [facility] [id number], [place] [address] Dec, [facility] [place] [facility] [address] [id number], [place] [address] Dec, [facility] [place] [facility] [address] [id number], [place] [address] Dec, [facility] [place] [facility] [address] [id number], [place] [address] Dec, [facility] [place] [facility] [address] [facility] [id number], [place] [address] Dec, [facility] [place] [facility] [address] [facility] [id number], [place] [address] Dec, [facility] [place] [facility] [address] [id number] [place] [address] Nov, [facility] [place] [facility] [address] [id number] [place] [address] Oct, [facility] [place] [facility] [address] [id number] [place] [address] Oct, [facility] [place] [facility] [address] [id number] [place] [address] Oct, [facility] [place] [facility] [address] [id number] [place] [address] Oct, [facility] [place] [facility] [address] [id number] [place] [address] Sep, [facility] [place] [facility] [address] [id number] [place] [address] Sep, [facility] [place] [facility] [address] [id number] [place] [address] Sep, [facility] [place] [facility] [address] [id number] [place] [address] Sep, [facility] [place] [facility] [address] [id number] [place] [address] Aug, [facility] [place] [facility] [address] [id number] [place] [address] Aug, [facility] [place] [facility] [address] [id number] [place] [address] Aug, [facility] [place] [facility] [address] [id number] [place] [address] Aug, [facility] [place] [facility] [address] [id number] [place] [address] Aug, [facility] [place] [facility] [address] [id number] [place] [address] July, [facility] [place] [facility] [address] [id number] [place] [address] July, [facility] [address] [facility] [id number] [place] [address] July, [facility] [address] [facility] [id number] [place] [address] Dec, IMMUNIZATIONS No Known Immunizations SOCIAL HISTORY Never Assessed REASON FOR VISIT TRANSPORTATION PLAN OF CARE VITAL SIGNS MEDICATIONS Unknown [...]
--- OUTSIDE RECORDS SUMMARY | 2018-10-24 12:28 | XMS REPORT ---
Author Author NELSON DIANN Organization [facility] [place] Address [address] [place] [address] Care Team Providers Care Edger Runner Name Role Phone NELSONPRADEEP BURGOSHANY Unavailable PROBLEMS Type Condition ICD9-CM Code LUJ46-BF Code Onset Dates Condition Status SNOMED Code Problem Fibromyalgia M79.7 Active 93400596 Problem Tinnitus of both ears H93.13 Active 7246641200070 Problem Irritable bowel syndrome without diarrhea K58.9 Active 11599085 Problem COPD exacerbation J44.1 Active 013441801 Problem Menopausal symptoms N95.1 Active 40583630 Problem On antiepileptic therapy Z79.899 Active 268454585 Problem Chronic obstructive pulmonary disease, unspecified COPD type J44.9 Active 98409609 Problem Irritable bowel syndrome with diarrhea K58.0 Active 555887034 Problem Vitamin D deficiency E55.9 Active 08394711 Problem MRSA (methicillin resistant staph aureus) culture positive Z22.322 Active 726297489 Problem Epilepsy G40.909 Active 13796035 Problem Generalized anxiety disorder F41.1 Active 065503085 Problem Interstitial cystitis N30.10 Active 748019481 Problem Esophageal reflux K21.9 Active 046939263 Problem Major depressive disorder F32.9 Active 811523567 Problem Lumbago M54.5 Active 519245656 ALLERGIES Substance Reaction Event Type Date Status Sulfamethoxazole-Trimethoprim Unknown Drug Allergy July, Active Prednisone Unknown Drug Allergy July, Active Nitrofurantoin Unknown Drug Allergy July, Active Cephalexin Unknown Drug Allergy July, Active Amitiza Unknown Drug Allergy July, Active Tramadol Unknown Drug Allergy July, Active Artane unknown Drug Allergy July, Active Benzodiazepines Failed UDS Non Drug Allergy July, Active Hydrocodone Failed UDS Non Drug Allergy July, Active ENCOUNTERS Encounter Location Date Diagnosis [facility] [place] [address] [facility] [id number] [address] Nov, [facility] [address] [id number] Oct, [facility] [place] [address] [address] Oct, [facility] [place] [id number] [place] [address] Sep, [facility] [place] [address] [address] Sep, [facility] [place] [id number] [place] [address] Sep, [facility] [id number] [place] [id number] Aug, Dental examination Z01.20 [facility] [place] [id number] [place] [address] Aug, Abscess of axilla, left L02.412 [facility] [place] [id number] [place] [address] Aug, Esophageal reflux K21.9 [facility] [place] [address] [address] Aug, [facility] [place] [id number] [place] [address] Aug, Esophageal reflux K21.9 ; Fluid level behind tympanic membrane of right ear H65.91 ; Fibromyalgia M79.7 and Lumbago M54.5 [facility] [place] [id number] [place] [address] Aug, Esophageal reflux K21.9 [facility] [place] [id number] [place] [address] July, [facility] [place] [id number] [place] [address] July, [facility] [place] [id number] [place] [address] July, Chronic obstructive pulmonary disease, unspecified COPD type J44.9 [facility] [place] [address] [address] July, [facility] [place] [id number] [place] [address] July, [place] [id number] [place] [address] July, Interstitial cystitis N30.10 ; Fibromyalgia M79.7 [...] Dysuria R30.0 and Generalized anxiety disorder F41.1 [facility] [place] [id number] [place] [address] Jun, [place] [id number] [place] [address] Jun, Chronic obstructive pulmonary disease, unspecified COPD type J44.9 ; COPD exacerbation J44.1 and Sore throat J02.9 [place] [id number] [place] [address] Jun, Fibromyalgia M79.7 [facility] [place] [id number] [place] [address] Jun, Fibromyalgia M79.7 [facility] [place] [id number] [place] [address] May, [facility] [place] [id number] [place] [address] May, [facility] [place] [id number] [place] [address] May, Fibromyalgia M79.7 [facility] [place] [id number] [place] [address] Mar, [facility] [place] [id number] [place] [address] Mar, Epilepsy G40.909 ; Lumbago M54.5 ; Esophageal reflux K21.9 ; Fibromyalgia M79.7 ; Chronic obstructive pulmonary disease, unspecified COPD type J44.9 ; Vitamin D deficiency E55.9 ; Fluid level behind tympanic membrane of right ear H65.91 ; Irritable bowel syndrome with diarrhea K58.0 ; Hematochezia K92.1 and Generalized anxiety disorder F41.1 [facility] [place] [id number] [place] [address] Mar, [facility] [place] [id number] [place] [address] Mar, [facility] [place] [id number] [place] [address] Mar, Vitamin D deficiency E55.9 [facility] [place] [id number] [place] [address] Feb, [facility] [place] [id number] [place] [address] Feb, [facility] [place] [id number] [place] [address] Jan, Fibromyalgia M79.7 [facility] [place] [id number] [place] [address] Jan, [facility] [place] [id number] [place] [address] Jan, [facility] [place] [id number] [place] [address] Jan, Vitamin D deficiency E55.9 [facility] [place] [id number] [place] [address] Dec, [place] [id number] [place] [address] Dec, [place] [id number] [place] [address] Dec, Generalized anxiety disorder F41.1 [place] [id number] [place] [address] Dec, Dysuria R30.0 ; Acute bilateral low back pain without sciatica M54.5 and Encounter for immunization Z23 [place] [id number] [place] [address] Oct, [place] [address] [address] Oct, Fibromyalgia M79.7 [place] [id number] [place] [address] Sep, Dysuria R30.0 and Acute bronchitis, unspecified organism J20.9 [place] [id number] [place] [address] Sep, [place] [id number] [place] [address] Sep, Rectal prolapse K62.3 [place] [id number] [place] [address] Sep, Chronic obstructive pulmonary disease, unspecified COPD type J44.9 [facility] [id number] [place] [id number] Aug, [facility] [id number] [place] [id number] Aug, [place] [id number] [place] [address] Aug, Light headedness R42 ; On antiepileptic therapy Z79.899 ; Vitamin D deficiency E55.9 ; Screening for lipid disorders Z13.220 ; Dysuria R30.0 and Hemorrhoids, unspecified hemorrhoid type K64.9 [place] [id number] [place] [address] Aug, Internal prolapsed hemorrhoids 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.8 [place] [id number] [place] [address] July, [place] [id number] [place] [address] May, [address] [address] May, Fever and chills R50.9 and Influenza B J10.[address] [address] Apr, [place] [id number] [place] [address] Apr, Fibromyalgia M79.7 and Generalized anxiety disorder F41.1 [place] [id number] [place] [address] Mar, Esophageal reflux K21.9 ; Generalized anxiety disorder F41.1 and Epilepsy G40.909 [place] [id number] [place] [address] Mar, Epilepsy G40.909 ; Esophageal reflux K21.9 ; Fibromyalgia M79.7 ; Generalized anxiety disorder F41.1 ; Pain of left foot M79.672 ; Pain in right foot M79.671 ; Ear pain, right H92.01 ; Tinnitus of both ears H93.13 ; Chronic obstructive pulmonary disease, unspecified COPD type J44.9 ; Vitamin D deficiency E55.9 ; Screening for lipid disorders Z13.220 and On antiepileptic therapy Z79.899 [place] [id number] [place] [address] Feb, [place] [id number] [place] [address] Feb, [facility] [address] [place] [id number] [place] [address] Feb, Dysuria R30.0 and Plantar fasciitis of right foot M72.2 [facility] [place] [id number] [place] [address] Feb, [facility] [place] [id number] [place] [address] Feb, [facility] [place] [id number] [place] [address] Jan, [facility] [place] [id number] [place] [address] Jan, [facility] [place] [id number] [place] [address] Dec, [facility] [place] [id number] [place] [address] Dec, [facility] [place] [id number] [place] [address] Dec, [facility] [place] [id number] [place] [address] Nov, [facility] [place] [id number] [place] [address] Sep, [facility] [id number] [place] [address] Aug, Shortness of breath R06.02 and Acute suppurative otitis media of right ear without spontaneous rupture of tympanic membrane, recurrence not specified H66.001 [facility] [place] [id number] [place] [address] 14 Aug, 2016 Internal prolapsed hemorrhoids K64.8 [facility] [place] [id number] [place] [address] 06 Jun, 2015 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 [facility] [place] [id number] [place] [address] May, Fibromyalgia M79.7 ; Interstitial cystitis N30.10 ; Intractable migraine without aura and without status migrainosus G43.019 ; Low vitamin D level E55.9 and Ringing in right ear H93.11 [place] [id number] [place] [address] May, [place] [address] [address] May, Low vitamin D level E55.9 [place] [id number] [place] [address] Apr, [place] [address] [address] Mar, [place] [address] [address] Mar, Acute suppurative otitis media of right ear without spontaneous rupture of tympanic membrane, recurrence not specified H66.001 ; Encounter for immunization Z23 ; Asthma with acute exacerbation, unspecified asthma severity J45.901 ; Memory problem R41.3 ; Acute pain of right knee M25.561 ; Chronic fatigue R53.82 and Excessive urinary volume R35.8 [place] [id number] [place] [address] Feb, [place] [address] [address] Feb, [place] [id number] [place] [address] Jan, [place] [address] [address] Nov, Esophageal reflux 530.81 ; Anxiety 300.00 and Tingling in extremities 782.0 [place] [id number] [place] [address] Oct, [place] [address] [address] Oct, [facility] [place] [address] [address] Oct, [facility] [place] [id number] [place] [address] Oct, [facility] [place] [address] [address] Oct, [facility] [place] [id number] [place] [address] Sep, Other chronic allergic conjunctivitis 372.14 ; Irritable bowel syndrome 564.1 ; 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 ; Fibromyalgia 729.1 ; Extremity pain 729.5 and Neck pain 723.1 [facility] [place] [address] [address] Sep, [facility] [place] [id number] [place] [address] Aug, [facility] [place] [address] [address] Aug, [facility] [place] [id number] [place] [address] July, Vomiting 787.03 [facility] [address] [id number] July, Dental examination V72.2 [facility] [place] [address] [address] Jun, [facility] [place] [address] [address] Jun, [facility] [place] [address] [address] May, [facility] [place] [address] [address] May, [facility] [place] [id number] [place] [address] 16 May, 2014 [facility] [place] [facility] [address] [id number] [place] [address] May, [facility] [place] [facility] [address] [id number] [place] [address] May, 2014 [facility] [place] [facility] [address] [id number] [place] [address] May, [facility] [place] [facility] [address] [id number] [place] [address] May, [facility] [place] [facility] [address] [id number] [place] [address] May, [facility] [place] [facility] [address] [facility] [id number] [place] [address] May, [facility] [place] [facility] [address] [facility] [id number] [place] [address] Apr, [facility] [place] [facility] [address] [facility] [id number] [place] [address] Apr, [facility] [place] [facility] [address] [facility] [id number] [place] [address] Apr, [facility] [place] [facility] [address] [facility] [id number] [place] [address] Apr, [facility] [place] [facility] [address] [facility] [id number] [place] [address] Apr, [facility] [place] [facility] [address] [facility] [id number] [place] [address] Apr, [facility] [place] [facility] [address] [facility] [id number] [place] [address] Mar, [facility] [place] [facility] [address] [facility] [id number] [place] [address] Mar, [facility] [place] [facility] [address] [facility] [id number] [place] [address] Mar, [facility] [place] [facility] [address] [id number] [place] [address] Mar, [facility] [place] [facility] [address] [id number] [place] [address] Mar, [facility] [place] [facility] [address] [id number] [place] [address] Mar, [facility] [place] [facility] [address] [id number] [place] [address] Mar, [facility] [place] [facility] [address] [id number] [place] [address] Mar, [facility] [place] [facility] [address] [id number] [place] [address] Mar, [facility] [place] [facility] [address] [id number] [place] [address] Mar, [facility] [place] [facility] [address] [id number] [address] Mar, [facility] [place] [facility] [address] [id number] [place] [address] Mar, [facility] [place] [facility] [address] [id number] [place] [address] Mar, [facility] [place] [facility] [address] [id number] [address] Mar, [facility] [place] [facility] [address] [id number] [address] Mar, [facility] [place] [facility] [address] [id number] [address] Mar, [facility] [place] [facility] [address] [id number] [address] Mar, [facility] [place] [facility] [address] [id number] [address] Mar, [facility] [place] [facility] [address] [id number] [place] [address] 09 Mar, 2014 [facility] [place] [facility] [address] [id number] [place] [address] Feb, [facility] [place] [facility] [address] [id number] [place] [address] 18 Feb, 2014 [facility] [place] [facility] [address] [id number] [place] [address] Feb, [facility] [place] [facility] [address] [id number] [place] [address] Feb, [facility] [place] [facility] [address] [id number] [place] [address] Jan, [facility] [place] [facility] [address] [id number] [place] [address] Jan, [facility] [place] [facility] [address] [id number] [place] [address] 14 Jan, 2014 [facility] [place] [facility] [address] [id number] [place] [address] 14 Jan, 2014 [facility] [place] [facility] [address] [id number] [place] [address] 14 Jan, 2014 [facility] [place] [facility] [address] [facility] [id number] [place] [address] 14 Jan, 2014 [facility] [place] [facility] [address] [id number] [place] [address] 07 Jan, 2014 [facility] [place] [facility] [address] [id number] [place] [address] 07 Jan, 2014 [facility] [place] [facility] [address] [id number] [place] [address] Dec, [facility] [place] [facility] [address] [id number] [place] [address] Dec, [facility] [place] [facility] [address] [id number] [place] [address] Dec, [facility] [place] [facility] [address] [id number] [place] [address] 17 Dec, 2013 [facility] [place] [facility] [address] [id number] [place] [address] 22 Nov, 2013 [facility] [place] [facility] [address] [id number] [place] [address] 22 Nov, 2013 [facility] [place] [facility] [address] [id number] [place] [address] 08 Nov, 2013 [facility] [place] [facility] [address] [id number] [place] [address] 08 Nov, 2013 [facility] [place] [facility] [address] [id number] [place] [address] 05 Nov, 2013 [facility] [place] [facility] [address] [id number] [place] [address] 05 Nov, 2013 [facility] [place] [facility] [address] [id number] [place] [address] 04 Nov, 2013 [facility] [place] [facility] [address] [id number] [place] [address] 04 Nov, 2013 [facility] [place] [facility] [address] [id number] [place] [address] 03 Nov, 2013 [facility] [place] [facility] [address] [id number] [place] [address] Nov, 2013 [facility] [place] [facility] [address] [id number] [place] [address] 15 Oct, 2013 [facility] [place] [facility] [address] [id number] [place] [address] Oct, [facility] [place] [facility] [address] [id number] [place] [address] Sep, [facility] [place] [facility] [address] [id number] [place] [address] 14 Sep, 2013 [facility] [place] [facility] [address] [id number] [place] [address] Sep, [facility] [place] [facility] [address] [id number] [place] [address] Sep, [facility] [place] [facility] [address] [id number] [place] [address] Sep, [facility] [place] [facility] [address] [id number] [place] [address] Sep, [facility] [place] [facility] [address] [id number] [place] [address] Aug, [facility] [place] [facility] [address] [id number] [place] [address] Aug, [facility] [place] [facility] [address] [id number] [place] [address] Aug, [facility] [place] [facility] [address] [id number] [place] [address] Aug, [facility] [place] [facility] [address] [id number] [place] [address] Aug, [facility] [place] [facility] [address] [id number] [place] [address] Aug, [facility] [place] [facility] [address] [id number] [place] [address] July, [facility] [place] [facility] [address] [id number] [place] [address] July, [facility] [place] [facility] [address] [id number] [place] [address] July, [facility] [place] [facility] [address] [id number] [place] [address] July, [facility] [place] [facility] [address] [id number] [place] [address] July, [facility] [place] [facility] [address] [id number] [place] [address] July, [facility] [place] [facility] [address] [id number] [place] [address] Jun, [facility] [place] [facility] [address] [id number] [place] [address] Jun, [facility] [place] [facility] [address] [id number] [place] [address] Jun, [facility] [place] [facility] [address] [id number] [place] [address] Jun, [facility] [place] [facility] [address] [id number] [place] [address] May, [facility] [place] [facility] [address] [id number] [place] [address] May, [facility] [place] [facility] [address] [id number] [place] [address] Apr, [facility] [place] [facility] [address] [id number] [place] [address] Apr, [facility] [place] [facility] [address] [id number] [place] [address] Apr, [facility] [place] [facility] [address] [id number] [place] [address] Apr, [facility] [place] [facility] [address] [id number] [place] [address] Mar, [facility] [place] [facility] [address] [id number] [place] [address] Mar, [facility] [place] [facility] [address] [id number] [place] [address] Mar, [facility] [place] [facility] [address] [id number] [place] [address] Mar, [facility] [place] [facility] [address] [id number] [place] [address] Mar, [facility] [place] [facility] [address] [id number] [place] [address] Mar, [facility] [address] [id number] [place] [address] Feb, [facility] [place] [facility] [address] [id number] [place] [address] Feb, [facility] [place] [facility] [address] [facility] [id number] [place] [address] Jan, [facility] [place] [facility] [address] [id number] [place] [address] Jan, [facility] [place] [facility] [address] [id number] [place] [address] Jan, [facility] [place] [facility] [address] [id number] [place] [address] Jan, [facility] [place] [facility] [address] [id number] [place] [address] Nov, [facility] [place] [facility] [address] [id number] [address] Nov, [facility] [place] [facility] [address] [id number] [place] [address] Oct, [facility] [place] [facility] [address] [id number] [place] [address] Oct, [facility] [place] [facility] [address] [id number] [address] Sep, [facility] [place] [facility] [address] [id number] [address] Sep, [facility] [place] [facility] [address] [id number] [place] [address] Sep, [facility] [place] [facility] [address] [id number] [address] Aug, [facility] [place] [facility] [address] [id number] [address] Aug, [facility] [place] [facility] [address] [id number] [place] [address] Aug, [facility] [address] [id number] [place] [address] Aug, [facility] [place] [facility] [address] [id number] [place] [address] July, [facility] [address] [id number] [place] [address] July, [facility] [address] [id number] [place] [address] July, [facility] [address] [id number] [place] [address] July, [facility] [address] [id number] [place] [address] Jun, [facility] [address] [id number] [place] [address] Jun, [facility] [address] [id number] [place] [address] Jun, [facility] [address] [id number] [place] [address] May, [facility] [address] [facility] [id number] [place] [address] May, [facility] [place] [facility] [address] [id number] [place] [address] Apr, [facility] [place] [facility] [address] [id number] [place] [address] Apr, [facility] [place] [facility] [address] [id number] [place] [address] Apr, [facility] [place] [facility] [address] [id number] [place] [address] Apr, [facility] [place] [facility] [address] [id number] [place] [address] Mar, [facility] [place] [facility] [address] [id number] [place] [address] Mar, [facility] [place] [facility] [address] [id number] [place] [address] Mar, [facility] [place] [facility] [address] [id number] [place] [address] Mar, [facility] [place] [facility] [address] [id number] [place] [address] Feb, [facility] [place] [facility] [address] [id number] [place] [address] Feb, [facility] [place] [facility] [address] [id number] [place] [address] Feb, [facility] [place] [facility] [address] [id number] [place] [address] Feb, [facility] [place] [facility] [address] [id number] [place] [address] Feb, [facility] [place] [facility] [address] [id number] [place] [address] Feb, [facility] [place] [facility] [address] [id number] [place] [address] Feb, [facility] [place] [facility] [address] [id number] [place] [address] Feb, [facility] [place] [facility] [address] [id number] [place] [address] Jan, [facility] [place] [facility] [address] [id number] [place] [address] Jan, [facility] [place] [facility] [address] [id number] [place] [address] Jan, [facility] [place] [facility] [address] [id number] [place] [address] Jan, [facility] [place] [facility] [address] [id number] [address] 14 Jan, 2012 [facility] [place] [facility] [address] [id number] [place] [address] 13 Jan, 2012 [facility] [place] [facility] [address] [id number] [address] 13 Jan, 2012 [facility] [place] [facility] [address] [id number] [place] [address] 12 Jan, 2012 [facility] [place] [facility] [address] [id number] [place] [address] Jan, [facility] [place] [facility] [address] [id number] [place] [address], [place] [address] Jan, [facility] [place] [facility] [address] [id number] [place] [address] Jan, [facility] [place] [facility] [address] [facility] [id number] [place] [address] 31 Dec, 2011 [facility] [place] [facility] [address] [id number] [address] 31 Dec, 2011 [facility] [place] [facility] [address] [id number] [place] [address] 29 Dec, 2011 [facility] [place] [facility] [address] [facility] [id number] [address] 29 Dec, 2011 [facility] [place] [facility] [address] [facility] [id number] [address] 29 Dec, 2011 [facility] [place] [facility] [address] [id number] [address] 29 Dec, 2011 [facility] [place] [facility] [address] [id number] [address] 19 Dec, 2011 [facility] [place] [facility] [address] [facility] [id number] [address] 19 Dec, 2011 [facility] [place] [facility] [address] [facility] [id number] [address] 15 Dec, 2011 [facility] [place] [facility] [address] [id number] [place] [address] Dec, [facility] [place] [facility] [address] [id number] [place] [address] Dec, [facility] [place] [facility] [address] [id number] [place] [address] Dec, [facility] [place] [facility] [address] [id number] [place] [address] Nov, [facility] [place] [facility] [address] [id number] [place] [address] Oct, [facility] [place] [facility] [address] [id number] [place] [address] Oct, [facility] [place] [facility] [address] [id number] [place] [address] Oct, [facility] [place] [facility] [address] [id number] [place] [address] Oct, [facility] [place] [facility] [address] [id number] [place] [address] Sep, [facility] [place] [facility] [address] [id number] [place] [address] Sep, [facility] [place] [facility] [address] [id number] [place] [address] Sep, [facility] [place] [facility] [address] [id number] [place] [address] Sep, [facility] [place] [facility] [address] [id number] [place] [address] Aug, [facility] [place] [facility] [address] [id number] [place] [address] Aug, [facility] [place] [facility] [address] [id number] [place] [address] Aug, [facility] [place] [facility] [address] [id number] [place] [address] Aug, [facility] [place] [address] [facility] [id number] [address] Aug, [facility] [place] [address] [facility] [id number] [address] July, [facility] [place] [address] [facility] [id number] [address] July, [facility] [place] [address] [facility] [id number] [place] [address] July, [facility] [place] [address] [facility] [id number] [address] Dec, IMMUNIZATIONS No Known Immunizations SOCIAL HISTORY Never Assessed REASON FOR VISIT UTI symptoms- lorna whipple, headaches, back pain PLAN OF CARE Activity Details Follow Up 4 Weeks Reason:Interstitial Cystitis/Chest pain/Back pain VITAL SIGNS Height 58 in 2017-07-29 Weight 147.6 lbs 2017-07-29 Temperature 97.8 degrees Fahrenheit 2017-07-29 Heart Rate 96 bpm 2017-07-29 Respiratory Rate 20 2017-07-29 Oximetry 96 % 2017-07-29 BMI 30.85 kg/m2 2017-07-29 Blood pressure systolic 112 mmHg 2017-07-29 Blood pressure diastolic 65 mmHg 2017-07-29 MEDICATIONS Medication Instructions Dosage Frequency Start Date End Date Duration Status Albuterol Sulfate (2.5 MG/3ML) 0.083% Inhalation every 4-6 hours as needed 3 ml Active Bentyl 10 mg Orally Four times a day 1 tablet as needed 6h Mar, Sep, Active Pristiq 50 MG Orally Once a day 1 tablet 24h 90 days Active Estradiol 1 MG 1 tablet by Oral route 1 time per day Mar, Not-Taking Symbicort 160-4.5 MCG/ACT Inhalation Twice a day 2 puffs 12h July, Active Ranitidine HCl 150 MG Orally 2 times a day 1 tablet 12h 90 days Active Lyrica 150 MG Orally Twice a day 1 capsule 12h Sep, Active Albuterol Sulfate 108 (90 Base) mcg/act Inhalation every 4-6 hours as needed 2 puffs as needed for wheezing, shortness of breath Jun, Active Tizanidine HCl 4 MG Orally Three times a day 1 tablet as needed 8h July, Jan, 30 days Active Tegretol 200 MG Orally 2 times a day 1 tablet 12h 90 days Active BusPIRone HCl 10 MG Orally 4 times a day 1 tablet 6h 90 days Active Loratadine 10 mg Orally Once a day as needed 1 tablet Sep, Active Protonix 40 MG Orally Once a day 1 tablet 24h 15 Feb, 2015 90 days Active RESULTS No Results PROCEDURES Procedure Date Ordered Result Body Site LAB NOT BILLED BY [facility] July 29, 2017 URINALYSIS, AUTO, W/O SCOPE July 29, 2017 VENIPUNCT, ROUTINE* July 29, 2017 INSTRUCTIONS MEDICATIONS ADMINISTERED No Known Medications MEDICAL (GENERAL) HISTORY Type Description Date Medical History epilepsy Medical History interstitial cystitis Surgical History hysterectomy Surgical History breast biopsy w/ Dr. Hickey 2009 Surgical History cholecystectomy 2012 Surgical History tonsillectomy Surgical History tubal ligation Surgical History urethral stretching 2008 Surgical History section
--- OUTSIDE RECORDS SUMMARY | 2018-10-24 12:28 | XMS REPORT ---
Author Author NELSON DIANN [facility] Address [address] [place] [address] Care Team Providers Care Solo Musician Name Role Phone NELSONPRADEEP BURGOSHANY Unavailable PROBLEMS Type Condition ICD9-CM Code OOS39-LJ Code Onset Dates Condition Status SNOMED Code Problem Fibromyalgia M79.7 Active 17321419 Problem Tinnitus of both ears H93.13 Active 9825824999844 Problem Irritable bowel syndrome without diarrhea K58.9 Active 32690142 Problem COPD exacerbation J44.1 Active 725739661 Problem Menopausal symptoms N95.1 Active 16223134 Problem On antiepileptic therapy Z79.899 Active 942834858 Problem Chronic obstructive pulmonary disease, unspecified COPD type J44.9 Active 73497490 Problem Irritable bowel syndrome with diarrhea K58.0 Active 867290669 Problem Vitamin D deficiency E55.9 Active 79828968 Problem MRSA (methicillin resistant staph aureus) culture positive Z22.322 Active 391731987 Problem Epilepsy G40.909 Active 35668974 Problem Generalized anxiety disorder F41.1 Active 476978346 Problem Interstitial cystitis N30.10 Active 962730843 Problem Esophageal reflux K21.9 Active 225127097 Problem Major depressive disorder F32.9 Active 212035169 Problem Lumbago M54.5 Active 304797457 ALLERGIES No Information ENCOUNTERS Encounter Location Date Diagnosis [facility] [address] [id number] [address] Nov, [facility] [address] [id number] [id number] Oct, [facility] [address] [id number] [address] Oct, [facility] [address] [id number] [address] Sep, [facility] [id number] [place] [address] Sep, [facility] [id number] [place] [address] Sep, [facility] [id number] [place] [id number] Aug, Dental examination Z01.20 [facility] [id number] [place] [address] Aug, Abscess of axilla, left L02.412 [facility] [id number] [place] [address] Aug, Esophageal reflux K21.9 [facility] [id number] [place] [address] Aug, [facility] [address] [address] Aug, Esophageal reflux K21.9 ; Fluid level behind tympanic membrane of right ear H65.91 ; Fibromyalgia M79.7 and Lumbago M54.5 [facility] [id number] [place] [address] Aug, Esophageal reflux K21.9 [facility] [id number] [place] [address] July, [facility] [id number] [place] [address] July, [facility] [id number] [place] [address] July, Chronic obstructive pulmonary disease, unspecified COPD type J44.9 [facility] [id number] [place] [address] July, [facility] [id number] [place] [address] July, [facility] [id number] [place] [address] July, Interstitial cystitis N30.10 ; Fibromyalgia M79.7 [...] Dysuria R30.0 and Generalized anxiety disorder F41.1 [place] [address] [address] Jun, [place] [address] [address] Jun, Chronic obstructive pulmonary disease, unspecified COPD type J44.9 ; COPD exacerbation J44.1 and Sore throat J02.9 [place] [address] [address] Jun, Fibromyalgia M79.7 [place] [address] [address] Jun, Fibromyalgia M79.7 [place] [address] [address] May, [place] [id number] [place] [address] May, [place] [address] [address] May, Fibromyalgia M79.7 [place] [address] [address] Mar, [place] [address] [address] Mar, Epilepsy G40.909 ; Lumbago M54.5 ; Esophageal reflux K21.9 ; Fibromyalgia M79.7 ; Chronic obstructive pulmonary disease, unspecified COPD type J44.9 ; Vitamin D deficiency E55.9 ; Fluid level behind tympanic membrane of right ear H65.91 ; Irritable bowel syndrome with diarrhea K58.0 ; Hematochezia K92.1 and Generalized anxiety disorder F41.1 [facility] [id number] [place] [address] Mar, [facility] [address] [address] Mar, [facility] [id number] [place] [address] Mar, Vitamin D deficiency E55.9 [facility] [address] [address] Feb, [facility] [id number] [place] [address] Feb, [facility] [address] [address] Jan, Fibromyalgia M79.7 [facility] [id number] [place] [address] Jan, [facility] [id number] [place] [address] Jan, [facility] [id number] [place] [address] Jan, Vitamin D deficiency E55.9 [facility] [id number] [place] [address] Dec, [facility] [id number] [place] [address] Dec, [facility] [id number] [place] [address] Dec, Generalized anxiety disorder F41.1 [facility] [id number] [place] [address] 02 Oct, 2017 Dysuria R30.0 ; Acute bilateral low back pain without sciatica M54.5 and Encounter for immunization Z23 [facility] [id number] [place] [address] Oct, [facility] [id number] [place] [address] Oct, Fibromyalgia M79.7 [facility] [id number] [place] [address] Sep, Dysuria R30.0 and Acute bronchitis, unspecified organism J20.9 [facility] [id number] [place] [address] Sep, [facility] [id number] [place] [address] Sep, Rectal prolapse K62.3 [facility] [id number] [place] [address] Sep, Chronic obstructive pulmonary disease, unspecified COPD type J44.9 [facility] [id number] [place] [id number] Aug, [facility] [id number] [place] [id number] Aug, [facility] [id number] [place] [address] Aug, Light headedness R42 ; On antiepileptic therapy Z79.899 ; Vitamin D deficiency E55.9 ; Screening for lipid disorders Z13.220 ; Dysuria R30.0 and Hemorrhoids, unspecified hemorrhoid type K64.9 [facility] [id number] [place] [address] Aug, Internal prolapsed hemorrhoids K64.8 [facility] [id number] [place] [address] July, [facility] [id number] [place] [address] May, [place] [id number] [place] [address] May, Fever and chills R50.9 and Influenza B J10.1 [place] [id number] [place] [address] Apr, [address] [address] Apr, Fibromyalgia M79.7 and Generalized anxiety disorder F41.[address] [address] Mar, Esophageal reflux K21.9 ; Generalized anxiety disorder F41.1 and Epilepsy G40.909 [place] [address] [address] Mar, Epilepsy G40.909 ; Esophageal reflux K21.9 ; Fibromyalgia M79.7 ; Generalized anxiety disorder F41.1 ; Pain of left foot M79.672 ; Pain in right foot M79.671 ; Ear pain, right H92.01 ; Tinnitus of both ears H93.13 ; Chronic obstructive pulmonary disease, unspecified COPD type J44.9 ; Vitamin D deficiency E55.9 ; Screening for lipid disorders Z13.220 and On antiepileptic therapy Z79.899 [place] [id number] [place] [address] Feb, [place] [id number] [place] [address] Feb, [facility] [id number] [place] [address] Feb, Dysuria R30.0 and Plantar fasciitis of right foot M72.2 [place] [address] [address] Feb, [place] [address] [address] Feb, [facility] [id number] [place] [address] Jan, [facility] [id number] [place] [address] Jan, [facility] [id number] [place] [address] Dec, [facility] [address] [address] Dec, [facility] [id number] [place] [address] Dec, [facility] [id number] [place] [address] Nov, [facility] [id number] [place] [address] Sep, [facility] [id number] [place] [address] Aug, Shortness of breath R06.02 and Acute suppurative otitis media of right ear without spontaneous rupture of tympanic membrane, recurrence not specified H66.001 [place] [id number] [place] [address] 14 Aug, 2015 Internal prolapsed hemorrhoids K64.8 [place] [id number] [place] [address] Jun, 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 [facility] [id number] [place] [address] May, Fibromyalgia M79.7 ; Interstitial cystitis N30.10 ; Intractable migraine without aura and without status migrainosus G43.019 ; Low vitamin D level E55.9 and Ringing in right ear H93.11 [facility] [id number] [place] [address] May, [facility] [address] [address] May, Low vitamin D level E55.9 [facility] [address] [address] Apr, [facility] [address] [address] Mar, [facility] [address] [address] Mar, Acute suppurative otitis media of right ear without spontaneous rupture of tympanic membrane, recurrence not specified H66.001 ; Encounter for immunization Z23 ; Asthma with acute exacerbation, unspecified asthma severity J45.901 ; Memory problem R41.3 ; Acute pain of right knee M25.561 ; Chronic fatigue R53.82 and Excessive urinary volume R35.8 [facility] [address] [address] Feb, [facility] [address] [address] Feb, [facility] [address] [address] Jan, [facility] [address] [address] Nov, Esophageal reflux 530.81 ; Anxiety 300.00 and Tingling in extremities 782.0 [facility] [id number] [place] [address] Oct, [facility] [address] [address] Oct, [facility] [address] [address] Oct, [facility] [address] [address] Oct, [facility] [address] [address] Oct, [facility] [address] [address] Sep, Other chronic allergic conjunctivitis 372.14 ; Irritable bowel syndrome 564.1 ; 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 ; Fibromyalgia 729.1 ; Extremity pain 729.5 and Neck pain 723.1 [facility] [address] [place] [address] Sep, [facility] [id number] [place] [address] Aug, [facility] [id number] [place] [address] Aug, [facility] [id number] [place] [address] July, Vomiting 787.03 [facility] [id number] [place] [id number] July, Dental examination V72.2 [facility] [address] [place] [address] Jun, [facility] [address] [place] [address] Jun, [facility] [address] [address] May, [facility] [id number] [place] [address] May, [facility] [address] [place] [address] May, [facility] [id number] [place] [address] May, [facility] [address] [address] May, [facility] [id number] [place] [address] May, [facility] [place] [facility] [address] [id number] [place] [address] May, [facility] [place] [facility] [address] [id number] [place] [address] May, [facility] [place] [facility] [address] [id number] [place] [address] May, [facility] [place] [facility] [address] [id number] [place] [address] Apr, 2014 [facility] [place] [facility] [address] [id number] [place] [address] Apr, 2014 [facility] [place] [facility] [address] [id number] [place] [address] Apr, 2014 [facility] [place] [facility] [address] [id number] [place] [address] Apr, 2014 [facility] [place] [facility] [address] [id number] [place] [address] Apr, [facility] [place] [facility] [address] [id number] [place] [address] Apr, [facility] [place] [facility] [address] [facility] [id number] [place] [address] Mar, [facility] [place] [facility] [address] [id number] [place] [address] Mar, [facility] [place] [facility] [address] [id number] [place] [address] Mar, [facility] [place] [facility] [address] [id number] [place] [address] Mar, [facility] [place] [facility] [address] [id number] [place] [address] Mar, [facility] [place] [facility] [address] [id number] [place] [address] Mar, [facility] [place] [facility] [address] [id number] [place] [address] Mar, [facility] [address] [id number] [place] [address] Mar, [facility] [place] [facility] [address] [id number] [place] [address] Mar, [facility] [place] [facility] [address] [id number] [place] [address] Mar, [facility] [address] [id number] [place] [address] Mar, [facility] [place] [facility] [address] [id number] [place] [address] Mar, [facility] [address] [id number] [place] [address] Mar, [facility] [address] [id number] [place] [address] Mar, [facility] [address] [id number] [place] [address] Mar, [facility] [place] [facility] [address] [id number] [place] [address] Mar, [facility] [place] [facility] [address] [id number] [place] [address] Mar, [facility] [place] [facility] [address] [id number], [place] [address] Mar, [facility] [place] [facility] [address] [id number] [place] [address] Mar, [facility] [place] [facility] [address] [id number] [place] [address] Feb, [facility] [place] [facility] [address] [id number] [place] [address] Feb, [facility] [place] [facility] [address] [id number] [place] [address] Feb, [facility] [place] [facility] [address] [id number] [place] [address] Feb, [facility] [place] [facility] [address] [id number] [place] [address] Jan, [facility] [place] [facility] [address] [id number] [place] [address] Jan, [facility] [place] [facility] [address] [id number] [place] [address] Jan, [facility] [place] [facility] [address] [id number] [place] [address] Jan, [facility] [place] [facility] [address] [id number] [place] [address] Jan, [facility] [place] [facility] [address] [id number] [place] [address] Jan, [facility] [place] [facility] [address] [id number] [place] [address] Jan, [facility] [place] [facility] [address] [id number] [place] [address] Jan, [facility] [place] [facility] [address] [id number] [place] [address] Dec, [facility] [place] [facility] [address] [id number] [place] [address] Dec, [facility] [place] [facility] [address] [id number], [place] [address] Dec, [facility] [place] [facility] [address] [id number] [place] [address] Dec, [facility] [place] [facility] [address] [id number] [place] [address] Nov, [facility] [place] [facility] [address] [id number] [place] [address] Nov, [facility] [place] [facility] [address] [id number] [place] [address] 08 Sep, 2013 [facility] [place] [facility] [address] [id number] [place] [address] 08 Sep, 2013 [facility] [place] [facility] [address] [id number] [place] [address] 05 Sep, 2013 [facility] [place] [facility] [address] [id number] [place] [address] 05 Sep, 2013 [facility] [place] [facility] [address] [id number] [place] [address] 04 Sep, 2013 [facility] [place] [facility] [address] [id number] [place] [address] 04 Nov, 2013 [facility] [place] [facility] [address] [id number] [place] [address] 03 Nov, 2013 [facility] [place] [facility] [address] [id number] [place] [address] Nov, 2013 [facility] [place] [facility] [address] [id number] [place] [address] Oct, [facility] [place] [facility] [address] [id number] [place] [address] Oct, [facility] [place] [facility] [address] [id number] [place] [address] Sep, [facility] [place] [facility] [address] [id number] [place] [address] Sep, [facility] [place] [facility] [address] [id number] [place] [address] Sep, [facility] [place] [facility] [address] [id number] [place] [address] Sep, [facility] [place] [facility] [address] [id number] [place] [address] Sep, [facility] [place] [facility] [address] [id number] [place] [address] Sep, [facility] [place] [facility] [address] [id number] [place] [address] Aug, [facility] [place] [facility] [address] [id number] [place] [address] Aug, [facility] [place] [facility] [address] [id number] [place] [address] Aug, [facility] [place] [facility] [address] [id number] [place] [address] Aug, [facility] [place] [facility] [address] [id number] [place] [address] Aug, [facility] [place] [facility] [address] [id number] [place] [address] Aug, [facility] [place] [facility] [address] [id number] [place] [address] July, [facility] [place] [facility] [address] [id number] [place] [address] July, [facility] [place] [facility] [address] [id number] [place] [address] July, [facility] [place] [facility] [address] [id number] [place] [address] July, [facility] [place] [facility] [address] [id number] [place] [address] July, [facility] [place] [facility] [address] [id number] [place] [address] July, [facility] [place] [facility] [address] [id number] [place] [address] Jun, [facility] [place] [facility] [address] [id number] [place] [address] Jun, [facility] [place] [facility] [address] [id number] [place] [address] Jun, [facility] [place] [facility] [address] [id number] [place] [address] Jun, [facility] [place] [facility] [address] [id number] [place] [address] May, [facility] [place] [facility] [address] [id number] [place] [address] May, [facility] [place] [facility] [address] [id number] [place] [address] Apr, [facility] [place] [facility] [address] [id number] [place] [address] Apr, [facility] [place] [facility] [address] [id number] [place] [address] Apr, [facility] [place] [facility] [address] [id number] [place] [address] Apr, [facility] [place] [facility] [address] [id number] [place] [address] Mar, [facility] [place] [facility] [address] [id number] [place] [address] Mar, [facility] [place] [facility] [address] [id number] [place] [address] Mar, [facility] [place] [facility] [address] [id number] [place] [address] Mar, [facility] [place] [facility] [address] [id number] [place] [address] Mar, [facility] [place] [facility] [address] [id number] [place] [address] Mar, [facility] [place] [facility] [address] [id number] [place] [address] Feb, [facility] [place] [facility] [address] [id number] [place] [address] Feb, [facility] [place] [facility] [address] [id number] [place] [address] Jan, [facility] [place] [facility] [address] [id number] [place] [address] Jan, [facility] [place] [facility] [address] [id number] [place] [address] Jan, [facility] [place] [facility] [address] [id number] [place] [address] Jan, [facility] [place] [facility] [address] [id number] [place] [address] Nov, [facility] [place] [facility] [address] [id number] [place] [address] Nov, [facility] [place] [facility] [address] [id number] [place] [address] Oct, [facility] [place] [facility] [address] [id number] [place] [address] Oct, [facility] [place] [facility] [address] [id number] [place] [address] Sep, [facility] [place] [facility] [address] [id number] [place] [address] Sep, [facility] [place] [facility] [address] [id number] [place] [address] Sep, [facility] [place] [facility] [address] [id number] [place] [address] Aug, [facility] [place] [facility] [address] [id number] [place] [address] Aug, [facility] [place] [facility] [address] [id number] [place] [address] Aug, [facility] [place] [facility] [address] [id number] [place] [address] Aug, [facility] [place] [facility] [address] [id number] [place] [address] July, [facility] [place] [facility] [address] [id number], [place] [address] July, [facility] [address] [id number] [place] [address] July, [facility] [address] [id number] [place] [address] July, [facility] [address] [id number] [place] [address] Jun, [facility] [address] [id number] [place] [address] Jun, [facility] [address] [id number] [place] [address] Jun, [facility] [address] [id number] [place] [address] May, [facility] [address] [id number] [place] [address] May, [facility] [address] [id number] [place] [address] Apr, [facility] [address] [id number] [place] [address] Apr, [facility] [address] [id number] [place] [address] Apr, [facility] [address] [id number] [place] [address] Apr, [facility] [address] [id number], [place] [address] Mar, [facility] [address] [id number] [place] [address] Mar, [facility] [place] [facility] [address] [id number], [place] [address] Mar, [facility] [address] [facility] [facility] [id number], [place] [address] Mar, [facility] [place] [facility] [address] [id number] [place] [address] 11 Feb, 2012 [facility] [place] [facility] [address] [id number] [place] [address] 10 Feb, 2012 [facility] [place] [facility] [address] [id number] [place] [address] 10 Feb, 2012 [facility] [place] [facility] [address] [id number] [place] [address] 10 Feb, 2012 [facility] [place] [facility] [address] [id number] [place] [address] 10 Feb, 2012 [facility] [place] [facility] [address] [id number] [place] [address] 06 Feb, 2012 [facility] [place] [facility] [address] [id number] [place] [address] 04 Feb, 2012 [facility] [place] [facility] [address] [id number] [place] [address] 04 Feb, 2012 [facility] [place] [facility] [address] [id number] [place] [address] 28 Jan, 2012 [facility] [place] [facility] [address] [id number] [place] [address] 28 Jan, 2012 [facility] [place] [facility] [address] [id number] [place] [address] 15 Jan, 2012 [facility] [place] [facility] [address] [id number] [place] [address] 15 Jan, 2012 [facility] [place] [facility] [address] [id number] [place] [address] 14 Jan, 2012 [facility] [place] [facility] [address] [id number] [place] [address] 13 Jan, 2012 [facility] [place] [facility] [address] [id number] [place] [address] 13 Jan, 2012 [facility] [place] [facility] [address] [id number] [place] [address] Jan, [facility] [place] [facility] [address] [id number] [place] [address] Jan, [facility] [place] [facility] [address] [id number], [place] [address] Jan, [facility] [place] [facility] [address] [facility] [id number] [place] [address] Jan, [facility] [place] [facility] [address] [id number], [place] [address] Dec, [facility] [place] [facility] [address] [id number] [place] [address] Dec, [facility] [place] [facility] [address] [id number], [place] [address] Dec, [facility] [place] [facility] [address] [id number] [place] [address] Dec, [facility] [place] [facility] [address] [id number], [place] [address] Dec, [facility] [place] [facility] [address] [id number], [place] [address] Dec, [facility] [place] [facility] [address] [facility] [id number], [place] [address] Dec, [facility] [place] [facility] [address] [id number], [place] [address] Dec, [facility] [place] [facility] [address] [id number], [place] [address] Dec, [facility] [place] [facility] [address] [id number], [place] [address] Dec, [facility] [place] [facility] [address] [facility] [id number], [place] [address] Dec, [facility] [place] [facility] [address] [facility] [id number], [place] [address] Dec, [facility] [place] [facility] [address] [id number] [place] [address] Nov, [facility] [place] [facility] [address] [id number] [place] [address] Oct, [facility] [place] [facility] [address] [id number] [place] [address] Oct, [facility] [place] [facility] [address] [id number] [place] [address] Oct, [facility] [place] [facility] [address] [id number] [place] [address] Oct, [facility] [place] [facility] [address] [id number] [place] [address] Sep, [facility] [place] [facility] [address] [id number] [place] [address] Sep, [facility] [place] [facility] [address] [id number] [place] [address] Sep, [facility] [place] [facility] [address] [id number] [place] [address] Sep, [facility] [place] [facility] [address] [id number] [place] [address] Aug, [facility] [place] [facility] [address] [id number] [place] [address] Aug, [facility] [place] [facility] [address] [id number] [place] [address] Aug, [facility] [place] [facility] [address] [id number] [place] [address] Aug, [facility] [place] [facility] [address] [id number] [place] [address] Aug, [facility] [place] [facility] [address] [id number] [place] [address] July, [facility] [place] [facility] [address] [id number] [place] [address] July, [facility] [address] [facility] [id number] [place] [address] July, [facility] [address] [facility] [id number] [place] [address] Dec, IMMUNIZATIONS No Known Immunizations SOCIAL HISTORY Never Assessed REASON FOR VISIT Referral appointment PLAN OF CARE VITAL SIGNS MEDICATIONS Unknown [...]
--- OUTSIDE RECORDS SUMMARY | 2018-10-24 12:29 | XMS REPORT ---
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 Name Role Phone DORIS DAMONY Unavailable PROBLEMS Type Condition ICD9-CM Code NFO29-WX Code Onset Dates Condition Status SNOMED Code Problem Fibromyalgia M79.7 Active 64307812 Problem Tinnitus of both ears H93.13 Active 5981716260230 Problem Irritable bowel syndrome without diarrhea K58.9 Active 35628089 Problem COPD exacerbation J44.1 Active 880585465 Problem Menopausal symptoms N95.1 Active 14550311 Problem On antiepileptic therapy Z79.899 Active 360018178 Problem Chronic obstructive pulmonary disease, unspecified COPD type J44.9 Active 34066882 Problem Irritable bowel syndrome with diarrhea K58.0 Active 888766139 Problem Vitamin D deficiency E55.9 Active 59225711 Problem MRSA (methicillin resistant staph aureus) culture positive Z22.322 Active 519914275 Problem Epilepsy G40.909 Active 54725055 Problem Generalized anxiety disorder F41.1 Active 976190350 Problem Interstitial cystitis N30.10 Active 692260263 Problem Esophageal reflux K21.9 Active 362273151 Problem Major depressive disorder F32.9 Active 335298816 Problem Lumbago M54.5 Active 046993085 ALLERGIES No Information ENCOUNTERS Encounter Location Date Diagnosis [facility] [address] [facility] [id number], [place] [address] Sep, [facility] [address] [facility] [id number], [place] [address] Sep, [facility] [address] [facility] [id number], [place] [address] Sep, [facility] [address] [id number] [id number] Aug, Dental examination Z01.20 [place] [id number] [place] [address] Aug, Abscess of axilla, left L02.412 [place] [id number] [place] [address] 08 Aug, 2017 Esophageal reflux K21.9 [place] [id number] [place] [address] Aug, [place] [address] [address] Aug, Esophageal reflux K21.9 ; Fluid level behind tympanic membrane of right ear H65.91 ; Fibromyalgia M79.7 and Lumbago M54.5 [place] [id number] [place] [address] Aug, Esophageal reflux K21.9 [place] [id number] [place] [address] July, [place] [id number] [place] [address] July, [place] [id number] [place] [address] July, Chronic obstructive pulmonary disease, unspecified COPD type J44.9 [place] [id number] [place] [address] July, [place] [id number] [place] [address] July, [place] [id number] [place] [address] July, Interstitial cystitis N30.10 ; Fibromyalgia M79.7 [...] Dysuria R30.0 and Generalized anxiety disorder F41.1 [place] [address] [address] Jun, [place] [address] [address] Jun, Chronic obstructive pulmonary disease, unspecified COPD type J44.9 ; COPD exacerbation J44.1 and Sore throat J02.9 [place] [address] [address] Jun, Fibromyalgia M79.7 [place] [address] [address] Jun, Fibromyalgia M79.7 [place] [address] [address] May, [facility] [place] [address] [address] May, [place] [address] [address] May, Fibromyalgia M79.7 [facility] [address] [address] Mar, [place] [address] [address] Mar, Epilepsy G40.909 ; Lumbago M54.5 ; Esophageal reflux K21.9 ; Fibromyalgia M79.7 ; Chronic obstructive pulmonary disease, unspecified COPD type J44.9 ; Vitamin D deficiency E55.9 ; Fluid level behind tympanic membrane of right ear H65.91 ; Irritable bowel syndrome with diarrhea K58.0 ; Hematochezia K92.1 and Generalized anxiety disorder F41.1 [place] [id number] [place] [address] Mar, [place] [id number] [place] [address] Mar, [facility] [id number] [place] [address] Mar, Vitamin D deficiency E55.9 [facility] [id number] [place] [address] Feb, [facility] [address] [address] Feb, [facility] [id number] [place] [address] Jan, Fibromyalgia M79.7 [facility] [address] [address] Jan, [facility] [id number] [place] [address] Jan, [facility] [id number] [place] [address] Jan, Vitamin D deficiency E55.9 [facility] [id number] [place] [address] Dec, [facility] [id number] [place] [address] Dec, [facility] [id number] [place] [address] Dec, Generalized anxiety disorder F41.1 [facility] [id number] [place] [address] Dec, Dysuria R30.0 ; Acute bilateral low back pain without sciatica M54.5 and Encounter for immunization Z23 [facility] [id number] [place] [address] Oct, [facility] [id number] [place] [address] Oct, Fibromyalgia M79.7 [facility] [id number] [place] [address] Sep, Dysuria R30.0 and Acute bronchitis, unspecified organism J20.9 [facility] [id number] [place] [address] Sep, [facility] [id number] [place] [address] Sep, Rectal prolapse K62.3 [facility] [id number] [place] [address] Sep, Chronic obstructive pulmonary disease, unspecified COPD type J44.9 [place] [address] [id number] Aug, [place] [address] [id number] [place] [id number] Aug, [place] [id number] [place] [address] Aug, Light headedness R42 ; On antiepileptic therapy Z79.899 ; Vitamin D deficiency E55.9 ; Screening for lipid disorders Z13.220 ; Dysuria R30.0 and Hemorrhoids, unspecified hemorrhoid type K64.9 [place] [id number] [place] [address] Aug, Internal prolapsed hemorrhoids K64.8 [place] [id number] [place] [address] July, [place] [id number] [place] [address] May, [place] [id number] [place] [address] May, Fever and chills R50.9 and Influenza B J10.1 [place] [id number] [place] [address] Apr, [place] [id number] [place] [address] Apr, Fibromyalgia M79.7 and Generalized anxiety disorder F41.1 [place] [address] [address] 19 Mar, 2016 Esophageal reflux K21.9 ; Generalized anxiety disorder F41.1 and Epilepsy G40.909 [place] [address] [address] Mar, Epilepsy G40.909 ; Esophageal reflux K21.9 ; Fibromyalgia M79.7 ; Generalized anxiety disorder F41.1 ; Pain of left foot M79.672 ; Pain in right foot M79.671 ; Ear pain, right H92.01 ; Tinnitus of both ears H93.13 ; Chronic obstructive pulmonary disease, unspecified COPD type J44.9 ; Vitamin D deficiency E55.9 ; Screening for lipid disorders Z13.220 and On antiepileptic therapy Z79.899 [place] [address] [address] Feb, [facility] [id number] [place] [address] Feb, [facility] [id number] [place] [address] Feb, Dysuria R30.0 and Plantar fasciitis of right foot M72.2 [place] [id number] [place] [address] Feb, [facility] [address] [address] Feb, [place] [address] [address] Jan, [place] [id number] [place] [address] Jan, [facility] [id number] [place] [address] Dec, [facility] [id number] [place] [address] Dec, [facility] [id number] [place] [address] Dec, [facility] [id number] [place] [address] Nov, [facility] [id number] [place] [address] Sep, [facility] [id number] [place] [address] Aug, Shortness of breath R06.02 and Acute suppurative otitis media of right ear without spontaneous rupture of tympanic membrane, recurrence not specified H66.001 [place] [id number] [place] [address] 14 Aug, 2015 Internal prolapsed hemorrhoids K64.8 [place] [id number] [place] [address] Jun, 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 [place] [id number] [place] [address] May, Fibromyalgia M79.7 ; Interstitial cystitis N30.10 ; Intractable migraine without aura and without status migrainosus G43.019 ; Low vitamin D level E55.9 and Ringing in right ear H93.11 [place] [address] [place] [address] May, [facility] [id number] [place] [address] May, Low vitamin D level E55.9 [place] [id number] [place] [address] 29 Apr, 2015 [facility] [id number] [place] [address] Mar, [place] [id number] [place] [address] 07 Mar, 2015 Acute suppurative otitis media of right ear without spontaneous rupture of tympanic membrane, recurrence not specified H66.001 ; Encounter for immunization Z23 ; Asthma with acute exacerbation, unspecified asthma severity J45.901 ; Memory problem R41.3 ; Acute pain of right knee M25.561 ; Chronic fatigue R53.82 and Excessive urinary volume R35.8 [place] [address] [address] Feb, [place] [address] [address] Feb, [place] [address] [address] Jan, [place] [address] [address] Nov, Esophageal reflux 530.81 ; Anxiety 300.00 and Tingling in extremities 782.0 [place] [id number] [place] [address] Oct, [place] [address] [address] Oct, [place] [id number] [place] [address] Oct, [place] [id number] [place] [address] Oct, [place] [id number] [place] [address] Oct, [place] [address] [address] Sep, Other chronic allergic conjunctivitis 372.14 ; Irritable bowel syndrome 564.1 ; 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 ; Fibromyalgia 729.1 ; Extremity pain 729.5 and Neck pain 723.[address] [id number] [place] [address] Sep, [facility] [place] [facility] [address] [id number], [place] [address] Aug, [facility] [place] [facility] [address] [id number], [place] [address] Aug, [facility] [address] [id number], [place] [address] July, Vomiting 787.03 [facility] [address] [id number] [id number] July, Dental examination V72.2 [facility] [address] [id number], [place] [address] Jun, [facility] [place] [facility] [address] [id number], [place] [address] Jun, [facility] [place] [facility] [address] [id number], [place] [address] May, [facility] [place] [facility] [address] [id number], [place] [address] May, [facility] [place] [facility] [address] [facility] [id number], [place] [address] May, [facility] [place] [facility] [address] [id number], [place] [address] May, [facility] [place] [facility] [address] [id number], [place] [address] May, [facility] [place] [facility] [address] [id number], [place] [address] May, [facility] [place] [facility] [address] [id number], [place] [address] May, [facility] [place] [facility] [address] [facility] [id number], [place] [address] May, [facility] [place] [facility] [address] [id number] [place] [address] May, [facility] [place] [facility] [address] [id number] [place] [address] Apr, [facility] [place] [facility] [address] [id number] [place] [address] Apr, 2014 [facility] [place] [facility] [address] [id number] [place] [address] Apr, 2014 [facility] [place] [facility] [address] [id number] [place] [address] Apr, 2014 [facility] [place] [facility] [address] [id number] [place] [address] Apr, [facility] [place] [facility] [address] [id number] [place] [address] Apr, [facility] [place] [facility] [id number] [address] Mar, [facility] [place] [facility] [address] [id number] [place] [address] Mar, [facility] [place] [facility] [id number] [address] Mar, [facility] [place] [facility] [address] [facility] [id number] [place] [address] Mar, [facility] [place] [facility] [address] [id number] [place] [address] Mar, [facility] [place] [facility] [address] [id number] [place] [address] Mar, [facility] [place] [facility] [address] [id number] [place] [address] Mar, [facility] [place] [facility] [address] [id number] [place] [address] Mar, [facility] [place] [facility] [address] [id number] [place] [address] Mar, [facility] [place] [facility] [address] [id number] [place] [address] Mar, [facility] [place] [facility] [address] [id number] [place] [address] Mar, [facility] [place] [facility] [address] [id number] [place] [address] Mar, [facility] [place] [facility] [address] [id number] [place] [address] Mar, [facility] [place] [facility] [address] [id number] [place] [address] Mar, [facility] [place] [facility] [address] [id number] [place] [address] Mar, [facility] [place] [facility] [address] [id number] [place] [address] Mar, [facility] [place] [facility] [address] [id number] [place] [address] Mar, [facility] [place] [facility] [address] [id number] [place] [address] Mar, [facility] [place] [facility] [address] [id number] [place] [address] Mar, [facility] [place] [facility] [address] [id number] [place] [address] Feb, [facility] [place] [facility] [address] [id number], [place] [address] Feb, [facility] [place] [facility] [address] [id number] [place] [address] Feb, [facility] [place] [facility] [address] [id number] [place] [address] Feb, [facility] [place] [facility] [address] [id number], [place] [address] Jan, [facility] [place] [facility] [address] [id number], [place] [address] Jan, [facility] [place] [facility] [address] [id number] [place] [address] Jan, [facility] [place] [facility] [address] [id number] [place] [address] 14 Jan, 2014 [facility] [place] [facility] [address] [id number] [place] [address] Jan, [facility] [place] [facility] [address] [id number] [place] [address] Jan, [facility] [place] [facility] [address] [id number] [place] [address] Jan, [facility] [place] [facility] [address] [id number] [place] [address] Jan, [facility] [place] [facility] [address] [facility] [id number] [place] [address] Dec, [facility] [place] [facility] [address] [id number] [place] [address] Dec, [facility] [place] [facility] [address] [facility] [id number] [place] [address] Dec, [facility] [place] [facility] [address] [facility] [id number] [place] [address] 17 Dec, 2013 [facility] [place] [facility] [address] [id number] [place] [address] 22 Nov, 2013 [facility] [place] [facility] [address] [id number] [place] [address] 22 Nov, 2013 [facility] [place] [facility] [address] [id number] [place] [address] 08 Sep2013 [facility] [place] [facility] [address] [id number] [place] [address] 08 Sep2013 [facility] [place] [facility] [address] [facility] [id number] [place] [address] 05 Sep, 2013 [facility] [place] [facility] [address] [id number] [place] [address] 05 Nov, 2013 [facility] [place] [facility] [address] [id number] [place] [address] 04 Nov, 2013 [facility] [place] [facility] [address] [id number] [place] [address] 04 Nov, 2013 [facility] [place] [facility] [address] [id number] [place] [address] 03 Nov, 2013 [facility] [place] [facility] [address] [id number] [place] [address] 03 Nov, 2013 [facility] [place] [facility] [address] [id number] [place] [address] Oct, [facility] [place] [facility] [address] [id number] [place] [address] Oct, [facility] [place] [facility] [address] [id number] [place] [address] Sep, [facility] [place] [facility] [address] [id number] [place] [address] Sep, [facility] [place] [facility] [address] [id number] [place] [address] Sep, [facility] [place] [facility] [address] [id number] [place] [address] Sep, [facility] [place] [facility] [address] [id number] [place] [address] Sep, [facility] [place] [facility] [address] [id number] [place] [address] Sep, [facility] [place] [facility] [address] [id number] [place] [address] Aug, [facility] [place] [facility] [address] [id number] [place] [address] Aug, [facility] [place] [facility] [address] [id number] [place] [address] Aug, [facility] [place] [facility] [address] [id number] [place] [address] Aug, [facility] [place] [facility] [address] [id number] [place] [address] Aug, [facility] [place] [facility] [address] [id number] [place] [address] Aug, [facility] [place] [facility] [address] [id number] [place] [address] July, [facility] [place] [facility] [address] [id number] [place] [address] July, [facility] [place] [facility] [address] [id number] [place] [address] July, [facility] [place] [facility] [address] [id number] [place] [address] July, [facility] [place] [facility] [address] [id number] [place] [address] July, [facility] [place] [facility] [address] [id number] [place] [address] July, [facility] [place] [facility] [address] [id number] [place] [address] Jun, [facility] [place] [facility] [address] [id number] [place] [address] Jun, [facility] [place] [facility] [address] [id number] [place] [address] Jun, [facility] [place] [facility] [address] [id number] [place] [address] Jun, [facility] [place] [facility] [address] [id number] [place] [address] May, [facility] [place] [facility] [address] [id number] [place] [address] May, [facility] [place] [facility] [address] [id number] [place] [address] 18 Apr, 2013 [facility] [address] [id number] [place] [address] 18 Apr, 2013 [facility] [place] [facility] [address] [id number] [place] [address] 07 Apr, 2013 [facility] [address] [id number] [place] [address] Apr, [facility] [place] [facility] [address] [id number] [place] [address] Mar, [facility] [address] [id number] [place] [address] Mar, [facility] [address] [id number] [place] [address] Mar, [facility] [place] [facility] [address] [id number] [place] [address] Mar, [facility] [address] [id number] [place] [address] Mar, [facility] [place] [facility] [address] [facility] [id number] [place] [address] Mar, [facility] [address] [facility] [id number] [place] [address] Feb, [facility] [place] [facility] [address] [id number] [place] [address] Feb, [facility] [place] [facility] [address] [id number] [place] [address] Jan, [facility] [place] [facility] [address] [id number] [place] [address] Jan, [facility] [place] [facility] [address] [id number] [place] [address] Jan, [facility] [place] [facility] [address] [facility] [id number] [place] [address] Jan, [facility] [address] [id number] [place] [address] Nov, [facility] [place] [facility] [address] [id number] [place] [address] Nov, [facility] [place] [facility] [address] [id number] [place] [address] Oct, [facility] [place] [facility] [address] [id number] [place] [address] Oct, [facility] [place] [facility] [address] [id number] [place] [address] Sep, [facility] [place] [facility] [address] [id number] [place] [address] Sep, [facility] [place] [facility] [address] [id number] [place] [address] Sep, [facility] [place] [facility] [address] [id number] [place] [address] Aug, [facility] [place] [facility] [address] [id number] [place] [address] Aug, [facility] [place] [facility] [address] [id number] [place] [address] Aug, [facility] [place] [facility] [address] [id number] [place] [address] Aug, [facility] [place] [facility] [address] [id number] [address] July, [facility] [place] [facility] [address] [id number] [place] [address] July, [facility] [place] [facility] [address] [id number] [place] [address] July, [facility] [place] [facility] [address] [id number] [place] [address] July, [facility] [place] [facility] [address] [id number] [place] [address] Jun, [facility] [address] [id number] [place] [address] Jun, [facility] [place] [facility] [address] [id number] [place] [id number] Jun, [facility] [address] [id number] [place] [address] May, [facility] [place] [facility] [address] [id number] [place] [address] May, [facility] [address] [id number] [place] [address] Apr, [facility] [place] [facility] [address] [id number] [place] [address] Apr, [facility] [address] [id number] [place] [address] Apr, [facility] [place] [facility] [address] [id number] [place] [address] Apr, [facility] [address] [id number] [place] [address] Mar, [facility] [address] [id number] [place] [address] Mar, [facility] [address] [id number] [place] [address] Mar, [facility] [place] [facility] [address] [id number] [place] [address] Mar, [facility] [place] [facility] [address] [id number] [place] [address] Feb, [facility] [place] [facility] [address] [id number] [place] [address] Feb, [facility] [address] [id number] [place] [address] Feb, [facility] [place] [facility] [address] [id number] [place] [address] 10 Feb, 2012 [facility] [place] [facility] [address] [id number] [place] [address] 10 Feb, 2012 [facility] [place] [facility] [address] [id number] [place] [address] 06 Feb, 2012 [facility] [place] [facility] [address] [id number] [place] [address] Feb, [facility] [place] [facility] [address] [id number] [place] [address] 04 Feb, 2012 [facility] [place] [facility] [address] [id number] [place] [address] 28 Jan, 2012 [facility] [place] [facility] [address] [id number] [place] [address] 28 Jan, 2012 [facility] [place] [facility] [address] [id number] [place] [address] 15 Jan, 2012 [facility] [place] [facility] [address] [id number] [place] [address] 15 Jan, 2012 [facility] [place] [facility] [address] [id number] [place] [address] 14 Jan, 2012 [facility] [place] [facility] [address] [id number] [place] [address] 13 Jan, 2012 [facility] [place] [facility] [address] [id number] [place] [address] 13 Jan, 2012 [facility] [place] [facility] [address] [id number] [place] [address] 12 Jan, 2012 [facility] [place] [facility] [address] [id number] [place] [address] 12 Jan, 2012 [facility] [place] [facility] [address] [id number] [place] [address] 06 Jan, 2012 [facility] [place] [facility] [address] [id number], [place] [address] Jan, [facility] [place] [facility] [address] [id number] [place] [address] Dec, [facility] [place] [facility] [address] [id number] [place] [address] Dec, [facility] [place] [facility] [address] [id number] [place] [address] Dec, [facility] [place] [facility] [address] [id number] [place] [address] Dec, [facility] [place] [facility] [address] [id number] [place] [address] Dec, [facility] [place] [facility] [address] [id number] [place] [address] Dec, [facility] [place] [facility] [address] [id number] [place] [address] Dec, [facility] [place] [facility] [address] [id number] [place] [address] Dec, [facility] [place] [facility] [address] [id number] [place] [address] Dec, [facility] [place] [facility] [address] [id number] [place] [address] Dec, [facility] [place] [facility] [address] [id number], [place] [address] Dec, [facility] [place] [facility] [address] [id number], [place] [address] Dec, [facility] [place] [facility] [address] [id number] [place] [address] Nov, [facility] [place] [facility] [address] [facility] [id number], [place] [address] Oct, [facility] [place] [facility] [address] [id number] [place] [address] Oct, [facility] [place] [facility] [id number], [place] [address] Oct, [facility] [id number], [place] [address] Oct, [facility] [id number], [place] [address] Sep, [facility] [id number], [place] [address] Sep, [facility] [id number], [place] [address] Sep, [facility] [id number] [place] [address] Sep, [facility] [id number], [place] [address] Aug, [facility] [id number], [place] [address] Aug, [facility] [id number], [place] [address] Aug, [facility] [id number], [place] [address] Aug, [facility] [id number], [place] [address] Aug, [facility] [id number], [place] [address] July, [facility] [id number], [place] [address] July, [facility] [id number], [place] [address] July, [facility] [id number], [place] [address] Dec, IMMUNIZATIONS No Known Immunizations SOCIAL HISTORY Never Assessed REASON FOR VISIT refill request PLAN OF CARE VITAL SIGNS MEDICATIONS [...]
--- OUTSIDE RECORDS SUMMARY | 2018-10-24 12:30 | XMS REPORT ---
Author Author NELSON DIANN [facility] Address [address] [place] [address] Care Team Providers Care Mark Up Designer Name Role Phone PRADEEP DAMONHANY Unavailable PROBLEMS Type Condition ICD9-CM Code BAK68-TO Code Onset Dates Condition Status SNOMED Code Problem Fibromyalgia M79.7 Active 99123391 Problem Tinnitus of both ears H93.13 Active 6286419819521 Problem Irritable bowel syndrome without diarrhea K58.9 Active 75187909 Problem COPD exacerbation J44.1 Active 564301278 Problem Menopausal symptoms N95.1 Active 68692050 Problem On antiepileptic therapy Z79.899 Active 375907249 Problem Chronic obstructive pulmonary disease, unspecified COPD type J44.9 Active 70871891 Problem Irritable bowel syndrome with diarrhea K58.0 Active 815678312 Problem Vitamin D deficiency E55.9 Active 97061578 Problem MRSA (methicillin resistant staph aureus) culture positive Z22.322 Active 286100757 Problem Epilepsy G40.909 Active 51064475 Problem Generalized anxiety disorder F41.1 Active 435473298 Problem Interstitial cystitis N30.10 Active 126721872 Problem Esophageal reflux K21.9 Active 606366675 Problem Major depressive disorder F32.9 Active 185729245 Problem Lumbago M54.5 Active 234416238 ALLERGIES No Information ENCOUNTERS Encounter Location Date Diagnosis [facility] [address] [facility] [id number], [place] [address] Oct, [facility] [address] [facility] [id number], [place] [address] Sep, [facility] [address] [facility] [id number], [place] [address] Sep, [facility] [address] [facility] [id number], [place] [address] Sep, [facility] [id number] [id number] Aug, Dental examination Z01.20 [facility] [id number] [place] [address] Aug, Abscess of axilla, left L02.412 [facility] [id number] [place] [address] 08 Aug, 2017 Esophageal reflux K21.9 [facility] [id number] [place] [address] Aug, [facility] [id number] [place] [address] Aug, Esophageal reflux K21.9 ; Fluid level behind tympanic membrane of right ear H65.91 ; Fibromyalgia M79.7 and Lumbago M54.5 [facility] [id number] [place] [address] Aug, Esophageal reflux K21.9 [facility] [facility] [id number] [place] [address] July, [facility] [id number] [place] [address] July, [facility] [id number] [place] [address] July, Chronic obstructive pulmonary disease, unspecified COPD type J44.9 [facility] [id number] [place] [address] July, [facility] [id number] [place] [address] July, [facility] [id number] [place] [address] July, Interstitial cystitis N30.10 ; Fibromyalgia M79.7 [...] and Generalized anxiety disorder F41.1 [facility] [id number] [place] [address] Jun, [facility] [address] [address] Jun, Chronic obstructive pulmonary disease, unspecified COPD type J44.9 ; COPD exacerbation J44.1 and Sore throat J02.9 [place] [address] [address] Jun, Fibromyalgia M79.7 [place] [address] [address] Jun, Fibromyalgia M79.7 [place] [address] [address] May, [facility] [address] [address] May, [facility] [id number] [place] [address] May, Fibromyalgia M79.7 [place] [id number] [place] [address] Mar, [facility] [id number] [place] [address] Mar, Epilepsy G40.909 ; Lumbago M54.5 ; Esophageal reflux K21.9 ; Fibromyalgia M79.7 ; Chronic obstructive pulmonary disease, unspecified COPD type J44.9 ; Vitamin D deficiency E55.9 ; Fluid level behind tympanic membrane of right ear H65.91 ; Irritable bowel syndrome with diarrhea K58.0 ; Hematochezia K92.1 and Generalized anxiety disorder F41.1 [place] [id number] [place] [address] Mar, [facility] [id number] [place] [address] Mar, [facility] [id number] [place] [address] Mar, Vitamin D deficiency E55.9 [facility] [id number] [place] [address] Feb, [facility] [id number] [place] [address] Feb, [facility] [id number] [place] [address] Jan, Fibromyalgia M79.7 [facility] [id number] [place] [address] Jan, [facility] [id number] [place] [address] Jan, [facility] [id number] [place] [address] Jan, Vitamin D deficiency E55.9 [facility] [id number] [place] [address] Dec, [facility] [id number] [place] [address] Dec, [facility] [id number] [place] [address] Dec, Generalized anxiety disorder F41.1 [facility] [id number] [place] [address] Dec, Dysuria R30.0 ; Acute bilateral low back pain without sciatica M54.5 and Encounter for immunization Z23 [facility] [id number] [place] [address] Oct, [facility] [id number] [place] [address] Oct, Fibromyalgia M79.7 [facility] [id number] [place] [address] Sep, Dysuria R30.0 and Acute bronchitis, unspecified organism J20.9 [facility] [id number] [place] [address] Sep, [facility] [id number] [place] [address] Sep, Rectal prolapse K62.3 [place] [id number] [place] [address] Sep, Chronic obstructive pulmonary disease, unspecified COPD type J44.9 [facility] [id number] [place] [id number] Aug, [facility] [address] [id number] Aug, [facility] [id number] [place] [address] Aug, Light headedness R42 ; On antiepileptic therapy Z79.899 ; Vitamin D deficiency E55.9 ; Screening for lipid disorders Z13.220 ; Dysuria R30.0 and Hemorrhoids, unspecified hemorrhoid type K64.9 [place] [id number] [place] [address] Aug, Internal prolapsed hemorrhoids K64.8 [place] [id number] [place] [address] July, [place] [id number] [place] [address] May, [facility] [id number] [place] [address] May, Fever and chills R50.9 and Influenza B J10.1 [facility] [id number] [place] [address] 16 Apr, 2016 [facility] [address] [address] Apr, Fibromyalgia M79.7 and Generalized anxiety disorder F41.1 [place] [id number] [place] [address] Mar, Esophageal reflux K21.9 ; Generalized anxiety disorder F41.1 and Epilepsy G40.909 [facility] [id number] [place] [address] 13 Mar, 2016 Epilepsy G40.909 ; Esophageal [...] and On antiepileptic therapy Z79.899 [place] [id number] [place] [address] Feb, [place] [id number] [place] [address] Feb, [facility] [id number] [place] [address] Feb, Dysuria R30.0 and Plantar fasciitis of right foot M72.2 [facility] [id number] [place] [address] Feb, [place] [address] [address] Feb, [facility] [id number] [place] [address] Jan, [place] [id number] [place] [address] Jan, [facility] [id number] [place] [address] Dec, [facility] [id number] [place] [address] Dec, [facility] [id number] [place] [address] Dec, [facility] [address] [address] Nov, [facility] [id number] [place] [address] Sep, [facility] [id number] [place] [address] Aug, Shortness of breath R06.02 and Acute suppurative otitis media of right ear without spontaneous rupture of tympanic membrane, recurrence not specified H66.001 [place] [id number] [place] [address] Aug, Internal prolapsed hemorrhoids K64.8 [place] [id number] [place] [address] Jun, 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 [place] [id number] [place] [address] May, Fibromyalgia M79.7 ; Interstitial cystitis N30.10 ; Intractable migraine without aura and without status migrainosus G43.019 ; Low vitamin D level E55.9 and Ringing in right ear H93.11 [facility] [id number] [place] [address] May, [place] [id number] [place] [address] May, Low vitamin D level E55.9 [place] [id number] [place] [address] Apr, [place] [id number] [place] [address] Mar, [facility] [address] [address] Mar, Acute suppurative otitis media of right ear without spontaneous rupture of tympanic membrane, recurrence not specified H66.001 ; Encounter for immunization Z23 ; Asthma with acute exacerbation, unspecified asthma severity J45.901 ; Memory problem R41.3 ; Acute pain of right knee M25.561 ; Chronic fatigue R53.82 and Excessive urinary volume R35.8 [facility] [address] [address] Feb, [place] [address] [address] Feb, [place] [address] [address] Jan, [facility] [address] [address] Nov, Esophageal reflux 530.81 ; Anxiety 300.00 and Tingling in extremities 782.0 [facility] [id number] [place] [address] Oct, [facility] [id number] [place] [address] Oct, [facility] [id number] [place] [address] Oct, [facility] [id number] [place] [address] Oct, [facility] [address] [address] Oct, [facility] [id number] [place] [address] Sep, Other chronic allergic conjunctivitis 372.14 ; Irritable bowel syndrome 564.1 ; 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 [id number] [place] [id number] July, Dental examination V72.2 [facility] [id number] [place] [address] Jun, [facility] [id number] [place] [address] Jun, [facility] [address] [place] [address] May, [facility] [address] [place] [address] May, [facility] [address], [place] [address] May, [facility] [address], [place] [address] May, [facility] [address], [place] [address] May, [facility] [id number] [place] [address] May, [facility] [address], [place] [address] May, [facility] [id number] [place] [address] [place] [address] May, [facility] [place] [facility] [address] [id number] [place] [address] May, [facility] [place] [facility] [address] [id number] [place] [address] Apr, 2014 [facility] [place] [facility] [address] [id number] [place] [address] Apr, 2014 [facility] [place] [facility] [address] [id number] [place] [address] Apr, 2014 [facility] [place] [facility] [address] [id number] [place] [address] Apr, 2014 [facility] [place] [facility] [address] [facility] [id number] [place] [address] Apr, [facility] [place] [facility] [address] [place] [id number] [place] [address] Apr, [facility] [place] [facility] [address] [id number] [place] [address] Mar, [facility] [place] [facility] [id number] [place] [address] Mar, [facility] [place] [facility] [address] [facility] [id number] [place] [address] Mar, [facility] [place] [facility] [address] [facility] [id number] [place] [address] Mar, [facility] [place] [facility] [address] [id number], [place] [address] Mar, [facility] [place] [facility] [address] [id number] [place] [address] Mar, [facility] [place] [facility] [address] [facility] [id number] [place] [address] Mar, [facility] [place] [facility] [address] [facility] [id number] [place] [address] Mar, [facility] [address] [id number] [place] [address] Mar, [facility] [place] [facility] [address] [id number] [place] [address] Mar, [facility] [place] [facility] [address] [id number] [place] [address] Mar, [facility] [place] [facility] [address] [id number] [place] [address] Mar, [facility] [place] [facility] [address] [id number] [place] [address] Mar, [facility] [place] [facility] [address] [id number] [place] [address] Mar, [facility] [place] [facility] [address] [id number] [place] [address] Mar, [facility] [place] [facility] [address] [id number] [place] [address] Mar, [facility] [place] [facility] [address] [id number] [place] [address] Mar, [facility] [place] [facility] [address] [id number] [place] [address] Mar, [facility] [place] [facility] [address] [id number] [place] [address] Mar, [facility] [place] [facility] [address] [id number], [place] [address] Feb, [facility] [place] [facility] [address] [id number] [place] [address] Feb, [facility] [place] [facility] [address] [id number] [place] [address] Feb, [facility] [place] [facility] [address] [id number] [address] Feb, [facility] [place] [facility] [address] [id number], [place] [address] Jan, [facility] [place] [facility] [address] [id number] [place] [address] Jan, [facility] [place] [facility] [address] [id number] [place] [address] Jan, [facility] [place] [facility] [address] [id number] [place] [address] Jan, [facility] [place] [facility] [address] [id number] [place] [address] Jan, [facility] [place] [facility] [address] [id number] [place] [address] Jan, [facility] [place] [facility] [address] [id number] [place] [address] Jan, [facility] [place] [facility] [address] [facility] [id number] [place] [address] Jan, [facility] [place] [facility] [address] [id number] [place] [address] Dec, [facility] [place] [facility] [address] [id number] [place] [address] Dec, [facility] [place] [facility] [address] [facility] [id number] [place] [address] Dec, [facility] [place] [facility] [address] [id number] [place] [address] Dec, [facility] [place] [facility] [address] [id number] [place] [address] Nov, [facility] [place] [facility] [address] [id number] [place] [address] 22 Nov, 2013 [facility] [place] [facility] [address] [id number] [place] [address] 08 Nov, 2013 [facility] [place] [facility] [address] [facility] [id number] [place] [address] 08 Nov, 2013 [facility] [place] [facility] [address] [id number] [place] [address] 05 Sep, 2013 [facility] [place] [facility] [address] [id number] [place] [address] 05 Sep, 2013 [facility] [place] [facility] [address] [id number] [place] [address] 04 Nov, 2013 [facility] [place] [facility] [address] [id number] [place] [address] 04 Nov, 2013 [facility] [place] [facility] [address] [id number] [place] [address] 03 Nov, 2013 [facility] [place] [facility] [address] [id number] [place] [address] Nov, 2013 [facility] [place] [facility] [address] [id number] [place] [address] Oct, [facility] [place] [facility] [address] [id number] [place] [address] Oct, [facility] [place] [facility] [address] [id number] [place] [address] Sep, [facility] [place] [facility] [address] [id number] [place] [address] Sep, [facility] [place] [facility] [address] [id number] [place] [address] Sep, [facility] [place] [facility] [address] [id number] [place] [address] Sep, [facility] [place] [facility] [address] [id number] [place] [address] Sep, [facility] [place] [facility] [address] [id number] [place] [address] Sep, [facility] [place] [facility] [address] [id number] [place] [address] Aug, [facility] [place] [facility] [address] [id number] [place] [address] Aug, [facility] [place] [facility] [address] [id number] [place] [address] Aug, [facility] [place] [facility] [address] [id number] [place] [address] Aug, [facility] [place] [facility] [address] [id number] [place] [address] Aug, [facility] [place] [facility] [address] [id number] [place] [address] Aug, [facility] [place] [facility] [address] [id number] [place] [address] July, [facility] [place] [facility] [address] [id number] [place] [address] July, [facility] [place] [facility] [address] [id number] [place] [address] July, [facility] [place] [facility] [address] [id number] [place] [address] July, [facility] [place] [facility] [address] [id number] [place] [address] July, [facility] [place] [facility] [address] [id number] [place] [address] July, [facility] [place] [facility] [address] [id number] [place] [address] Jun, [facility] [place] [facility] [address] [id number] [place] [address] Jun, [facility] [place] [facility] [address] [id number] [place] [address] Jun, [facility] [place] [facility] [address] [id number] [place] [address] Jun, [facility] [place] [facility] [address] [id number] [place] [address] May, [facility] [place] [facility] [address] [id number] [place] [address] May, [facility] [address] [id number] [place] [address] Apr, [facility] [place] [facility] [address] [id number] [place] [address] Apr, [facility] [place] [facility] [address] [id number] [place] [address] Apr, [facility] [place] [facility] [address] [id number] [place] [address] Apr, [facility] [place] [facility] [address] [id number] [place] [address] Mar, [facility] [place] [facility] [address] [id number] [place] [address] Mar, [facility] [place] [facility] [address] [facility] [id number] [place] [address] Mar, [facility] [place] [facility] [address] [id number] [place] [address] Mar, [facility] [place] [facility] [address] [facility] [id number] [place] [address] Mar, [facility] [address] [facility] [id number] [place] [address] Mar, [facility] [place] [facility] [address] [id number] [place] [address] Feb, [facility] [place] [facility] [address] [id number] [place] [address] Feb, [facility] [place] [facility] [address] [id number] [place] [address] Jan, [facility] [place] [facility] [address] [id number] [place] [address] Jan, [facility] [place] [facility] [address] [facility] [id number] [place] [address] Jan, [facility] [address] [id number] [place] [address] Jan, [facility] [place] [facility] [address] [id number] [place] [address] Nov, [facility] [place] [facility] [address] [id number] [place] [address] Nov, [facility] [place] [facility] [address] [id number] [place] [address] Oct, [facility] [place] [facility] [address] [id number] [place] [address] Oct, [facility] [place] [facility] [address] [id number] [place] [address] Sep, [facility] [place] [facility] [address] [id number] [place] [address] Sep, [facility] [place] [facility] [address] [id number] [place] [address] Sep, [facility] [place] [facility] [address] [id number] [place] [address] Aug, [facility] [place] [facility] [address] [id number] [place] [address] Aug, [facility] [place] [facility] [address] [id number] [place] [address] Aug, [facility] [place] [facility] [address] [id number], [place] [address] Aug, [facility] [place] [facility] [address] [id number] [place] [address] July, [facility] [place] [facility] [address] [id number] [place] [address] July, [facility] [place] [facility] [address] [id number], [place] [address] July, [facility] [place] [facility] [address] [id number], [place] [address] July, [facility] [address] [id number] [place] [address] Jun, [facility] [address] [id number] [place] [address] Jun, [facility] [address] [id number] [place] [address] Jun, [facility] [address] [id number] [place] [address] May, [facility] [address] [id number] [place] [address] May, [facility] [address] [id number] [place] [address] Apr, [facility] [address] [id number] [place] [address] Apr, [facility] [address] [id number] [place] [address] Apr, [facility] [address] [id number] [place] [address] Apr, [facility] [address] [facility] [id number] [place] [address] Mar, [facility] [address] [id number] [place] [address] Mar, [facility] [place] [facility] [address] [id number] [place] [address] Mar, [facility] [place] [facility] [address] [id number] [place] [address] Mar, [facility] [place] [facility] [address] [id number] [place] [address] Feb, [facility] [address] [id number], [place] [address] Feb, [facility] [place] [facility] [address] [id number] [place] [address] 10 Feb, 2012 [facility] [place] [facility] [address] [id number] [place] [address] Feb, [facility] [place] [facility] [address] [id number] [place] [address] Feb, [facility] [place] [facility] [address] [id number] [place] [address] Feb, [facility] [place] [facility] [address] [id number] [place] [address] Feb, [facility] [place] [facility] [address] [id number] [place] [address] Feb, [facility] [place] [facility] [address] [id number] [place] [address] Jan, [facility] [place] [facility] [address] [id number] [place] [address] 28 Jan, 2012 [facility] [place] [facility] [address] [id number] [place] [address] 15 Jan, 2012 [facility] [place] [facility] [address] [id number] [place] [address] 15 Jan, 2012 [facility] [place] [facility] [address] [id number] [place] [address] 14 Jan, 2012 [facility] [place] [facility] [address] [id number] [place] [address] 13 Jan, 2012 [facility] [place] [facility] [address] [id number] [place] [address] 13 Jan, 2012 [facility] [place] [facility] [address] [id number] [place] [address] 12 Jan, 2012 [facility] [place] [facility] [address] [id number] [place] [address] 12 Jan, 2012 [facility] [place] [facility] [address] [id number], [place] [address] Jan, [facility] [place] [facility] [address] [id number] [place] [address] Jan, [facility] [place] [facility] [address] [id number] [place] [address] Dec, [facility] [place] [facility] [address] [facility] [id number] [place] [address] Dec, [facility] [place] [facility] [address] [id number], [place] [address] Dec, [facility] [place] [facility] [address] [id number] [place] [address] Dec, [facility] [place] [facility] [address] [id number] [place] [address] Dec, [facility] [place] [facility] [address] [id number] [place] [address] Dec, [facility] [place] [facility] [address] [id number], [place] [address] Dec, [facility] [place] [facility] [address] [id number], [place] [address] Dec, [facility] [place] [facility] [address] [id number], [place] [address] Dec, [facility] [place] [facility] [address] [id number], [place] [address] Dec, [facility] [place] [facility] [address] [id number], [place] [address] Dec, [facility] [place] [facility] [address] [id number], [place] [address] Dec, [facility] [place] [facility] [address] [facility] [id number], [place] [address] Nov, [facility] [place] [facility] [address] [facility] [id number], [place] [address] Oct, [facility] [place] [facility] [address] [id number] [place] [address] Oct, [facility] [address] [id number] [place] [address] Oct, [facility] [address] [id number] [place] [address] Oct, [facility] [address] [id number] [place] [address] Sep, [facility] [address] [id number] [place] [address] Sep, [facility] [address] [id number] [place] [address] Sep, [facility] [address] [id number] [place] [address] Sep, [facility] [address] [facility] [id number] [place] [address] Aug, [facility] [address] [id number] [place] [address] Aug, [facility] [address] [facility] [id number] [place] [address] Aug, [facility] [address] [facility] [id number] [place] [address] Aug, [facility] [address] [facility] [id number] [place] [address] Aug, [facility] [address] [id number] [place] [address] July, [facility] [address] [id number] [place] [address] July, [facility] [address] [facility] [id number] [place] [address] July, [facility] [address] [facility] [id number] [place] [address] Dec, IMMUNIZATIONS No Known Immunizations SOCIAL HISTORY Never Assessed REASON FOR VISIT Requests return call PLAN OF CARE VITAL SIGNS MEDICATIONS Medication Instructions Dosage Frequency Start Date End Date Duration Status Lyrica 150 MG Orally Twice a day 1 capsule 12h 30 Sep, 2014 90 days Active RESULTS No Results PROCEDURES [...]
--- OUTSIDE RECORDS SUMMARY | 2018-10-24 12:30 | XMS REPORT ---
Author Author NELSON DIANN [facility] Address [address] [place] [address] Care Team Providers Care Drainlayer Name Role Phone PRADEEP DAMONHANY Unavailable PROBLEMS Type Condition ICD9-CM Code NIB42-DN Code Onset Dates Condition Status SNOMED Code Problem Fibromyalgia M79.7 Active 05393177 Problem Tinnitus of both ears H93.13 Active 0844547567352 Problem Irritable bowel syndrome without diarrhea K58.9 Active 48918675 Problem COPD exacerbation J44.1 Active 943665040 Problem Menopausal symptoms N95.1 Active 27206351 Problem On antiepileptic therapy Z79.899 Active 841634740 Problem Chronic obstructive pulmonary disease, unspecified COPD type J44.9 Active 06752002 Problem Irritable bowel syndrome with diarrhea K58.0 Active 799622954 Problem Vitamin D deficiency E55.9 Active 07327059 Problem MRSA (methicillin resistant staph aureus) culture positive Z22.322 Active 707120026 Problem Epilepsy G40.909 Active 95245204 Problem Generalized anxiety disorder F41.1 Active 621364933 Problem Interstitial cystitis N30.10 Active 179267772 Problem Esophageal reflux K21.9 Active 567981002 Problem Major depressive disorder F32.9 Active 606895491 Problem Lumbago M54.5 Active 915669818 ALLERGIES Substance Reaction Event Type Date Status Sulfamethoxazole-Trimethoprim Unknown Drug Allergy Jun, Active Prednisone Unknown Drug Allergy Jun, Active Nitrofurantoin Unknown Drug Allergy Jun, Active Cephalexin Unknown Drug Allergy Jun, Active Amitiza Unknown Drug Allergy Jun, Active Tramadol Unknown Drug Allergy Jun, Active Artane unknown Drug Allergy Jun, Active Benzodiazepines Failed UDS Non Drug Allergy Jun, Active Hydrocodone Failed UDS Non Drug Allergy Jun, Active ENCOUNTERS Encounter Location Date Diagnosis [facility] [address] [facility] [id number] [address] Sep, [facility] [id number] [place] [address] Sep, [facility] [id number] [place] [address] Sep, [facility] [address] [id number] Aug, Dental examination Z01.20 [facility] [id number] [place] [address] Aug, Abscess of axilla, left L02.412 [facility] [id number] [place] [address] Aug, Esophageal reflux K21.9 [facility] [id number] [place] [address] Aug, [facility] [id number] [place] [address] Aug, Esophageal reflux K21.9 ; Fluid level behind tympanic membrane of right ear H65.91 ; Fibromyalgia M79.7 and Lumbago M54.5 [facility] [id number] [place] [address] Aug, Esophageal reflux K21.9 [facility] [id number] [place] [address] July, [facility] [id number] [place] [address] July, [facility] [id number] [place] [address] July, Chronic obstructive pulmonary disease, unspecified COPD type J44.9 [facility] [id number] [place] [address] July, [facility] [id number] [place] [address] July, [facility] [id number] [place] [address] July, Interstitial cystitis N30.10 ; Fibromyalgia M79.7 [...] Dysuria R30.0 and Generalized anxiety disorder F41.1 [place] [address] [address] Jun, [place] [address] [address] Jun, Chronic obstructive pulmonary disease, unspecified COPD type J44.9 ; COPD exacerbation J44.1 and Sore throat J02.9 [place] [address] [address] Jun, Fibromyalgia M79.7 [place] [address] [address] Jun, Fibromyalgia M79.7 [place] [address] [address] May, [place] [address] [address] May, [place] [address] [address] May, Fibromyalgia M79.7 [place] [address] [address] Mar, [place] [address] [address] Mar, Epilepsy G40.909 ; Lumbago M54.5 ; Esophageal reflux K21.9 ; Fibromyalgia M79.7 ; Chronic obstructive pulmonary disease, unspecified COPD type J44.9 ; Vitamin D deficiency E55.9 ; Fluid level behind tympanic membrane of right ear H65.91 ; Irritable bowel syndrome with diarrhea K58.0 ; Hematochezia K92.1 and Generalized anxiety disorder F41.1 [facility] [id number] [place] [address] Mar, [facility] [id number] [place] [address] Mar, [facility] [id number] [place] [address] Mar, Vitamin D deficiency E55.9 [facility] [id number] [place] [address] Feb, [facility] [id number] [place] [address] Feb, [facility] [id number] [place] [address] Jan, Fibromyalgia M79.7 [facility] [id number] [place] [address] Jan, [facility] [id number] [place] [address] Jan, [facility] [id number] [place] [address] Jan, Vitamin D deficiency E55.9 [facility] [id number] [place] [address] Dec, [facility] [id number] [place] [address] Dec, [facility] [id number] [place] [address] Dec, Generalized anxiety disorder F41.1 [facility] [id number] [place] [address] Dec, Dysuria R30.0 ; Acute bilateral low back pain without sciatica M54.5 and Encounter for immunization Z23 [facility] [id number] [place] [address] Oct, [facility] [address] [address] Oct, Fibromyalgia M79.7 [facility] [address] [address] Sep, Dysuria R30.0 and Acute bronchitis, unspecified organism J20.9 [place] [address] [address] Sep, [place] [address] [address] Sep, Rectal prolapse K62.3 [place] [address] [address] Sep, Chronic obstructive pulmonary disease, unspecified COPD type J44.9 [facility] [id number] [place] [id number] Aug, [facility] [address] [id number] Aug, [facility] [id number] [place] [address] Aug, Light headedness R42 ; On antiepileptic therapy Z79.899 ; Vitamin D deficiency E55.9 ; Screening for lipid disorders Z13.220 ; Dysuria R30.0 and Hemorrhoids, unspecified hemorrhoid type K64.9 [place] [address] [address] Aug, Internal prolapsed hemorrhoids K64.8 [place] [id number] [place] [address] July, [facility] [address] [address] May, [place] [id number] [place] [address] May, Fever and chills R50.9 and Influenza B J10.1 [place] [address] [address] Apr, [place] [address] [address] Apr, Fibromyalgia M79.7 and Generalized anxiety disorder F41.[address] [address] Mar, Esophageal reflux K21.9 ; Generalized anxiety disorder F41.1 and Epilepsy G40.909 [place] [address] [address] Mar, Epilepsy G40.909 ; Esophageal reflux K21.9 ; Fibromyalgia M79.7 ; Generalized anxiety disorder F41.1 ; Pain of left foot M79.672 ; Pain in right foot M79.671 ; Ear pain, right H92.01 ; Tinnitus of both ears H93.13 ; Chronic obstructive pulmonary disease, unspecified COPD type J44.9 ; Vitamin D deficiency E55.9 ; Screening for lipid disorders Z13.220 and On antiepileptic therapy Z79.899 [place] [id number] [place] [address] Feb, [place] [id number] [place] [address] Feb, [facility] [address] [address] Feb, Dysuria R30.0 and Plantar fasciitis of right foot M72.2 [place] [id number] [place] [address] Feb, [place] [address] [address] Feb, [facility] [address] [place] [address] Jan, [facility] [id number] [place] [address] Jan, [facility] [id number] [place] [address] Dec, [facility] [address] [address] Dec, [facility] [id number] [place] [address] Dec, [facility] [id number] [place] [address] Nov, [facility] [id number] [place] [address] Sep, [facility] [id number] [place] [address] Aug, Shortness of breath R06.02 and Acute suppurative otitis media of right ear without spontaneous rupture of tympanic membrane, recurrence not specified H66.001 [facility] [id number] [place] [address] 14 Aug, 2015 Internal prolapsed hemorrhoids K64.8 [place] [id number] [place] [address] Jun, 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 [facility] [id number] [place] [address] May, Fibromyalgia M79.7 ; Interstitial cystitis N30.10 ; Intractable migraine without aura and without status migrainosus G43.019 ; Low vitamin D level E55.9 and Ringing in right ear H93.11 [facility] [id number] [place] [address] May, [facility] [id number] [place] [address] May, Low vitamin D level E55.9 [facility] [address] [address] Apr, [facility] [address] [address] Mar, [facility] [address] [address] Mar, Acute suppurative otitis media of right ear without spontaneous rupture of tympanic membrane, recurrence not specified H66.001 ; Encounter for immunization Z23 ; Asthma with acute exacerbation, unspecified asthma severity J45.901 ; Memory problem R41.3 ; Acute pain of right knee M25.561 ; Chronic fatigue R53.82 and Excessive urinary volume R35.8 [facility] [address] [address] Feb, [facility] [address] [address] Feb, [facility] [address] [address] Jan, [facility] [id number] [place] [address] Nov, Esophageal reflux 530.81 ; Anxiety 300.00 and Tingling in extremities 782.0 [facility] [id number] [place] [address] Oct, [facility] [address] [address] Oct, [facility] [address] [address] Oct, [facility] [address] [address] Oct, [facility] [address] [place] [address] Oct, [facility] [id number] [place] [address] Sep, Other chronic allergic conjunctivitis 372.14 ; Irritable bowel syndrome 564.1 ; 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 ; Fibromyalgia 729.1 ; Extremity pain 729.5 and Neck pain 723.1 [facility] [id number] [place] [address] Sep, [facility] [id number] [place] [address] Aug, [facility] [id number] [place] [address] Aug, [facility] [id number] [place] [address] July, Vomiting 787.03 [facility] [id number] [place] [id number] July, Dental examination V72.2 [facility] [id number] [place] [address] Jun, [facility] [id number] [place] [address] Jun, [facility] [address] [address] May, [facility] [id number] [address] May, [facility] [id number] [place] [address] May, [facility] [address], [place] [address] May, [facility] [address] [address] May, [facility] [id number] [address] May, [facility] [place] [facility] [address] [id number] [place] [address] May, [facility] [place] [facility] [address] [id number] [place] [address] May, [facility] [place] [facility] [address] [id number] [place] [address] May, [facility] [place] [facility] [address] [id number] [place] [address] Apr, [facility] [place] [facility] [address] [id number] [place] [address] Apr, [facility] [place] [facility] [address] [facility] [id number] [place] [address] Apr, [facility] [place] [facility] [address] [id number] [place] [address] Apr, [facility] [place] [facility] [address] [id number] [place] [address] Apr, [facility] [place] [facility] [address] [facility] [id number] [place] [address] Apr, [facility] [place] [facility] [address] [facility] [id number] [place] [address] Mar, [facility] [place] [facility] [address] [id number] [place] [address] Mar, [facility] [place] [facility] [address] [id number] [place] [address] Mar, [facility] [place] [facility] [address] [id number] [place] [address] Mar, [facility] [place] [facility] [address] [id number] [place] [address] Mar, [facility] [place] [facility] [address] [id number] [place] [address] Mar, [facility] [place] [facility] [address] [id number] [place] [address] Mar, [facility] [place] [facility] [address] [id number] [place] [address] Mar, [facility] [place] [facility] [address] [id number] [place] [address] Mar, [facility] [place] [facility] [address] [id number] [place] [address] Mar, [facility] [place] [facility] [address] [id number] [place] [address] Mar, [facility] [place] [facility] [address] [id number] [place] [address] Mar, [facility] [place] [facility] [address] [id number] [place] [address] Mar, [facility] [place] [facility] [address] [id number] [place] [address] Mar, [facility] [place] [facility] [address] [id number] [place] [address] Mar, [facility] [place] [facility] [address] [id number] [place] [address] Mar, [facility] [place] [facility] [address] [id number], [place] [address] Mar, [facility] [place] [facility] [address] [id number], [place] [address] Mar, [facility] [place] [facility] [address] [id number] [place] [address] Mar, [facility] [place] [facility] [address] [id number] [place] [address] Feb, [facility] [place] [facility] [address] [id number] [place] [address] Feb, [facility] [place] [facility] [address] [id number] [place] [address] Feb, [facility] [place] [facility] [address] [id number] [place] [address] Feb, [facility] [place] [facility] [address] [id number] [place] [address] Jan, [facility] [place] [facility] [address] [id number] [place] [address] Jan, [facility] [place] [facility] [address] [id number] [place] [address] Jan, [facility] [place] [facility] [address] [id number] [place] [address] Jan, [facility] [place] [facility] [address] [id number] [place] [address] Jan, [facility] [place] [facility] [address] [id number] [place] [address] Jan, [facility] [place] [facility] [address] [id number] [place] [address] Jan, [facility] [place] [facility] [address] [id number] [place] [address] Jan, [facility] [place] [facility] [address] [id number] [place] [address] Dec, [facility] [place] [facility] [address] [id number] [place] [address] Dec, [facility] [place] [facility] [address] [id number] [place] [address] Dec, [facility] [place] [facility] [address] [id number] [place] [address] Dec, [facility] [place] [facility] [address] [id number] [place] [address] Nov, [facility] [place] [facility] [address] [id number] [place] [address] Nov, [facility] [place] [facility] [address] [id number] [place] [address] 08 Nov, 2013 [facility] [place] [facility] [address] [id number] [place] [address] 08 Nov, 2013 [facility] [place] [facility] [address] [id number] [place] [address] 05 Nov, 2013 [facility] [place] [facility] [address] [id number] [place] [address] 05 Nov, 2013 [facility] [place] [facility] [address] [id number] [place] [address] 04 Nov, 2013 [facility] [place] [facility] [address] [id number] [place] [address] 04 Nov, 2013 [facility] [place] [facility] [address] [id number] [place] [address] Nov, 2013 [facility] [place] [facility] [address] [id number] [place] [address] Nov, 2013 [facility] [place] [facility] [address] [id number] [place] [address] Oct, [facility] [place] [facility] [address] [id number] [place] [address] Oct, [facility] [place] [facility] [address] [id number] [place] [address] Sep, [facility] [place] [facility] [address] [id number] [place] [address] Sep, [facility] [place] [facility] [address] [id number] [place] [address] Sep, [facility] [place] [facility] [address] [id number] [place] [address] Sep, [facility] [place] [facility] [address] [id number] [place] [address] Sep, [facility] [place] [facility] [address] [id number] [place] [address] Sep, [facility] [place] [facility] [address] [id number] [place] [address] Aug, [facility] [place] [facility] [address] [id number] [place] [address] Aug, [facility] [place] [facility] [address] [id number] [place] [address] Aug, [facility] [place] [facility] [address] [id number] [place] [address] Aug, [facility] [place] [facility] [address] [id number] [place] [address] Aug, [facility] [place] [facility] [address] [id number] [place] [address] Aug, [facility] [place] [facility] [address] [id number] [place] [address] July, [facility] [place] [facility] [address] [id number] [place] [address] July, [facility] [place] [facility] [address] [id number] [place] [address] July, [facility] [place] [facility] [address] [id number] [place] [address] July, [facility] [place] [facility] [address] [id number] [place] [address] July, [facility] [place] [facility] [address] [id number] [place] [address] July, [facility] [place] [facility] [address] [id number] [place] [address] Jun, [facility] [place] [facility] [address] [id number] [place] [address] Jun, [facility] [place] [facility] [address] [id number] [place] [address] Jun, [facility] [place] [facility] [address] [id number] [place] [address] Jun, [facility] [place] [facility] [address] [id number] [place] [address] May, [facility] [place] [facility] [address] [id number] [place] [address] May, [facility] [place] [facility] [address] [id number] [place] [address] Apr, [facility] [place] [facility] [address] [id number] [place] [address] Apr, [facility] [place] [facility] [address] [id number] [place] [address] Apr, [facility] [place] [facility] [address] [id number] [place] [address] Apr, [facility] [place] [facility] [address] [id number] [place] [address] Mar, [facility] [place] [facility] [address] [id number] [place] [address] Mar, [facility] [place] [facility] [address] [id number] [place] [address] Mar, [facility] [place] [facility] [address] [id number] [place] [address] Mar, [facility] [place] [facility] [address] [id number] [place] [address] Mar, [facility] [place] [facility] [address] [id number] [place] [address] Mar, [facility] [place] [facility] [address] [id number] [place] [address] Feb, [facility] [place] [facility] [address] [id number] [place] [address] Feb, [facility] [place] [facility] [address] [id number] [place] [address] Jan, [facility] [place] [facility] [address] [id number] [place] [address] Jan, [facility] [place] [facility] [address] [id number] [place] [address] Jan, [facility] [place] [facility] [address] [id number] [place] [address] Jan, [facility] [place] [facility] [address] [id number] [place] [address] Nov, [facility] [place] [facility] [address] [id number] [place] [address] Nov, [facility] [place] [facility] [address] [id number] [place] [address] Oct, [facility] [place] [facility] [address] [id number] [place] [address] Oct, [facility] [place] [facility] [address] [id number] [place] [address] Sep, [facility] [place] [facility] [address] [id number] [place] [address] Sep, [facility] [place] [facility] [address] [id number] [place] [address] Sep, [facility] [place] [facility] [address] [id number] [place] [address] Aug, [facility] [place] [facility] [address] [id number] [address] Aug, [facility] [place] [facility] [address] [id number] [place] [address] Aug, [facility] [place] [facility] [address] [id number] [place] [address] Aug, [facility] [place] [facility] [address] [id number] [place] [address] July, [facility] [place] [facility] [address] [id number] [place] [address] July, [facility] [address] [id number] [place] [address] July, [facility] [address] [id number] [place] [address] July, [facility] [address] [id number] [place] [address] Jun, [facility] [address] [id number] [place] [address] Jun, [facility] [address] [id number] [place] [address] Jun, [facility] [address] [id number] [place] [address] May, [facility] [address] [id number] [place] [address] May, [facility] [address] [id number] [place] [address] Apr, [facility] [address] [id number] [place] [address] Apr, [facility] [address] [id number] [place] [address] Apr, [facility] [address] [id number] [place] [address] Apr, [facility] [address] [id number] [place] [address] Mar, [facility] [address] [id number] [place] [address] Mar, [facility] [address] [id number] [place] [address] Mar, [facility] [address] [id number] [place] [address] Mar, [facility] [place] [facility] [address] [id number] [place] [address] 11 Feb, 2012 [facility] [place] [facility] [address] [id number] [place] [address] 10 Feb, 2012 [facility] [place] [facility] [address] [id number] [place] [address] 10 Feb, 2012 [facility] [place] [facility] [address] [id number] [place] [address] 10 Feb, 2012 [facility] [place] [facility] [address] [id number] [place] [address] Feb, [facility] [place] [facility] [address] [id number] [place] [address] 06 Feb, 2012 [facility] [place] [facility] [address] [id number] [place] [address] 04 Feb, 2012 [facility] [place] [facility] [address] [id number] [place] [address] 04 Feb, 2012 [facility] [place] [facility] [address] [id number] [place] [address] 28 Jan, 2012 [facility] [place] [facility] [address] [id number] [place] [address] 28 Jan, 2012 [facility] [place] [facility] [address] [id number] [place] [address] 15 Jan, 2012 [facility] [place] [facility] [address] [id number], [place] [address] 15 Jan, 2012 [facility] [place] [facility] [address] [id number] [place] [address] 14 Jan, 2012 [facility] [place] [facility] [address] [id number] [place] [address] 13 Jan, 2012 [facility] [place] [facility] [address] [id number] [place] [address] 13 Jan, 2012 [facility] [place] [facility] [address] [id number] [place] [address] Jan, [facility] [place] [facility] [address] [id number] [place] [address] Jan, [facility] [place] [facility] [address] [id number] [place] [address] Jan, [facility] [place] [facility] [address] [id number] [place] [address] Jan, [facility] [place] [facility] [address] [id number] [place] [address] Dec, [facility] [place] [facility] [address] [id number] [place] [address] Dec, [facility] [place] [facility] [address] [id number] [place] [address] Dec, [facility] [place] [facility] [address] [id number] [place] [address] Dec, [facility] [place] [facility] [address] [id number] [place] [address] Dec, [facility] [place] [facility] [address] [id number] [place] [address] Dec, [facility] [place] [facility] [address] [facility] [id number] [place] [address] Dec, [facility] [place] [facility] [address] [id number] [place] [address] Dec, [facility] [place] [facility] [address] [id number], [place] [address] Dec, [facility] [place] [facility] [address] [id number] [place] [address] Dec, [facility] [place] [facility] [address] [facility] [id number], [place] [address] Dec, [facility] [place] [facility] [address] [facility] [id number], [place] [address] Dec, [facility] [place] [facility] [address] [id number] [place] [address] Nov, [facility] [place] [facility] [address] [id number] [place] [address] Oct, [facility] [place] [facility] [address] [id number] [place] [address] Oct, [facility] [place] [facility] [address] [id number] [place] [address] Oct, [facility] [place] [facility] [address] [id number] [place] [address] Oct, [facility] [place] [facility] [address] [id number] [place] [address] Sep, [facility] [place] [facility] [address] [id number] [place] [address] Sep, [facility] [place] [facility] [address] [id number] [place] [address] Sep, [facility] [place] [facility] [address] [id number] [place] [address] Sep, [facility] [place] [facility] [address] [id number] [place] [address] Aug, [facility] [place] [facility] [address] [id number] [place] [address] Aug, [facility] [place] [facility] [address] [id number] [place] [address] Aug, [facility] [place] [facility] [address] [id number] [place] [address] Aug, [facility] [place] [facility] [address] [id number] [place] [address] Aug, [facility] [place] [facility] [address] [id number] [place] [address] July, [facility] [place] [facility] [address] [id number] [place] [address] July, [facility] [address] [facility] [id number] [place] [address] July, [facility] [address] [facility] [id number], [place] [address] Dec, IMMUNIZATIONS No Known Immunizations SOCIAL HISTORY Never Assessed REASON FOR VISIT Sore throat---tcuppettRN, -Sore throat x 3 days. No other symptoms PLAN OF CARE Activity Details Follow Up as scheduled Reason: VITAL SIGNS Height 58 in 2017-07-05 Weight 148.9 lbs 2017-07-05 Temperature 97.8 degrees Fahrenheit 2017-07-05 Heart Rate 88 bpm 2017-07-05 Respiratory Rate 20 2017-07-05 BMI 31.12 kg/m2 2017-07-05 Blood pressure systolic 122 mmHg 2017-07-05 Blood pressure diastolic 76 mmHg 2017-07-05 MEDICATIONS Medication Instructions Dosage Frequency Start Date End Date Duration Status Bentyl 10 mg Orally Four times a day 1 tablet as needed 6h Mar, Sep, 30 day(s) Active Protonix 40 MG Orally Once a day 1 tablet 24h Feb, 90 days Active Vitamin D 2000 UNIT Orally Once a day 2 tablets 24h Mar, Sep, 90 days Active Tegretol 200 MG Orally 2 times a day 1 tablet 12h 90 days Active Ibuprofen 800 MG Orally Three times a day 1 tablet with food or milk as needed 8h Jun, 90 days Active Pristiq 50 MG Orally Once a day 1 tablet 24h 90 days Active Loratadine 10 mg Orally Once a day 1 tablet 24h Sep, 90 days Active Albuterol Sulfate 108 (90 Base) mcg/act Inhalation every 4-6 hours as needed 2 puffs as needed for wheezing, shortness of breath Jun, Active Lyrica 150 MG Orally Twice a day 1 capsule 12h Sep, 90 days Active BusPIRone HCl 10 MG Orally 4 times a day 1 tablet 6h 90 days Active PredniSONE 20 mg Orally Once a day 2 tablets 24h Jun, Jun, 05 days Active Ranitidine HCl 150 MG Orally 2 times a day 1 tablet 12h 90 days Active Estradiol 1 MG 1 tablet by Oral route 1 time per day Mar, Active Flonase 50 MCG/ACT Nasally Once a day 1 spray in each nostril 24h Mar, 30 day(s) Active Albuterol Sulfate (2.5 MG/3ML) 0.083% Inhalation every 4-6 hours as needed 3 ml 30 days Active RESULTS Name Result Date Reference Range STREP A (IN HOUSE) 2017-07-05 STREP A negative Control + Lot # [id number] Exp date 11/2017 PROCEDURES Procedure Date Ordered Result Body Site STREP A ASSAY W/OPTIC July 05, 2017 INSTRUCTIONS MEDICATIONS ADMINISTERED No Known Medications MEDICAL (GENERAL) HISTORY Type Description Date Medical History epilepsy Medical History interstitial cystitis Surgical History hysterectomy Surgical History breast biopsy w/ Dr. Hickey 2009 Surgical History cholecystectomy 2012 Surgical History tonsillectomy Surgical History tubal ligation Surgical History urethral stretching 2008 Surgical History section
--- OUTSIDE RECORDS SUMMARY | 2018-10-24 12:31 | XMS REPORT ---
Author Author NELSON DIANN [facility] Address [address] [place] [address] Care Team Providers [employer] Name Role Phone PRADEEP DAMONHANY Unavailable PROBLEMS Type Condition ICD9-CM Code EQX07-IX Code Onset Dates Condition Status SNOMED Code Problem Fibromyalgia M79.7 Active 82722293 Problem Tinnitus of both ears H93.13 Active 0157801002736 Problem Irritable bowel syndrome without diarrhea K58.9 Active 79195499 Problem COPD exacerbation J44.1 Active 448581868 Problem Menopausal symptoms N95.1 Active 74118051 Problem On antiepileptic therapy Z79.899 Active 301796521 Problem Chronic obstructive pulmonary disease, unspecified COPD type J44.9 Active 39814058 Problem Irritable bowel syndrome with diarrhea K58.0 Active 538034988 Problem Vitamin D deficiency E55.9 Active 95567461 Problem MRSA (methicillin resistant staph aureus) culture positive Z22.322 Active 554931952 Problem Epilepsy G40.909 Active 01084496 Problem Generalized anxiety disorder F41.1 Active 814545339 Problem Interstitial cystitis N30.10 Active 766604493 Problem Esophageal reflux K21.9 Active 785390514 Problem Major depressive disorder F32.9 Active 651530144 Problem Lumbago M54.5 Active 459596634 ALLERGIES No Information ENCOUNTERS Encounter Location Date Diagnosis [facility] [address] [facility] [id number] [address] Oct, [facility] [address] [facility] [id number] [place] [address] Sep, [facility] [address] [facility] [id number] [place] [address] Sep, [facility] [address] [id number] [id number] Aug, Dental examination Z01.20 [facility] [address] [place] [id number] [place] [address] Aug, Abscess of axilla, left L02.412 [facility] [id number] [place] [address] 08 Aug, 2017 Esophageal reflux K21.9 [facility] [id number] [place] [address] Aug, [facility] [address] [address] Aug, Esophageal reflux K21.9 ; Fluid level behind tympanic membrane of right ear H65.91 ; Fibromyalgia M79.7 and Lumbago M54.5 [facility] [id number] [place] [address] Aug, Esophageal reflux K21.9 [facility] [id number] [place] [address] July, [facility] [id number] [place] [address] July, [facility] [id number] [place] [address] July, Chronic obstructive pulmonary disease, unspecified COPD type J44.9 [facility] [id number] [place] [address] July, [facility] [id number] [place] [address] July, [facility] [id number] [place] [address] July, Interstitial cystitis N30.10 ; Fibromyalgia M79.7 [...] Dysuria R30.0 and Generalized anxiety disorder F41.1 [facility] [address] [address] Jun, [facility] [address] [address] Jun, Chronic obstructive pulmonary disease, unspecified COPD type J44.9 ; COPD exacerbation J44.1 and Sore throat J02.9 [facility] [address] [address] Jun, Fibromyalgia M79.7 [facility] [address] [address] Jun, Fibromyalgia M79.7 [facility] [address] [address] May, [facility] [address] [address] May, [facility] [address] [address] May, Fibromyalgia M79.7 [facility] [address] [address] Mar, [facility] [address] [address] Mar, Epilepsy G40.909 ; Lumbago M54.5 ; Esophageal reflux K21.9 ; Fibromyalgia M79.7 ; Chronic obstructive pulmonary disease, unspecified COPD type J44.9 ; Vitamin D deficiency E55.9 ; Fluid level behind tympanic membrane of right ear H65.91 ; Irritable bowel syndrome with diarrhea K58.0 ; Hematochezia K92.1 and Generalized anxiety disorder F41.1 [facility] [id number] [place] [address] Mar, [facility] [id number] [place] [address] Mar, [facility] [id number] [place] [address] Mar, Vitamin D deficiency E55.9 [facility] [id number] [place] [address] Feb, [facility] [address] [address] Feb, [facility] [id number] [place] [address] Jan, Fibromyalgia M79.7 [facility] [address] [address] Jan, [facility] [id number] [place] [address] Jan, [facility] [id number] [place] [address] Jan, Vitamin D deficiency E55.9 [facility] [id number] [place] [address] Dec, [facility] [id number] [place] [address] Dec, [facility] [id number] [place] [address] Dec, Generalized anxiety disorder F41.1 [facility] [id number] [place] [address] Dec, Dysuria R30.0 ; Acute bilateral low back pain without sciatica M54.5 and Encounter for immunization Z23 [facility] [id number] [place] [address] Oct, [facility] [id number] [place] [address] Oct, Fibromyalgia M79.7 [facility] [id number] [place] [address] Sep, Dysuria R30.0 and Acute bronchitis, unspecified organism J20.9 [facility] [id number] [place] [address] Sep, [facility] [id number] [place] [address] Sep, Rectal prolapse K62.3 [facility] [id number] [place] [address] Sep, Chronic obstructive pulmonary disease, unspecified COPD type J44.9 [facility] [address] [id number] Aug, [facility] [address] [id number] [place] [id number] Aug, [facility] [id number] [place] [address] Aug, Light headedness R42 ; On antiepileptic therapy Z79.899 ; Vitamin D deficiency E55.9 ; Screening for lipid disorders Z13.220 ; Dysuria R30.0 and Hemorrhoids, unspecified hemorrhoid type K64.9 [facility] [id number] [place] [address] Aug, Internal prolapsed hemorrhoids K64.8 [facility] [id number] [place] [address] July, [facility] [id number] [place] [address] May, [facility] [id number] [place] [address] May, Fever and chills R50.9 and Influenza B J10.1 [facility] [id number] [place] [address] Apr, [facility] [id number] [place] [address] Apr, Fibromyalgia M79.7 and Generalized anxiety disorder F41.1 [facility] [address] [address] 19 Mar, 2016 Esophageal reflux K21.9 ; Generalized anxiety disorder F41.1 and Epilepsy G40.909 [facility] [address] [address] Mar, Epilepsy G40.909 ; Esophageal reflux K21.9 ; Fibromyalgia M79.7 ; Generalized anxiety disorder F41.1 ; Pain of left foot M79.672 ; Pain in right foot M79.671 ; Ear pain, right H92.01 ; Tinnitus of both ears H93.13 ; Chronic obstructive pulmonary disease, unspecified COPD type J44.9 ; Vitamin D deficiency E55.9 ; Screening for lipid disorders Z13.220 and On antiepileptic therapy Z79.899 [facility] [address] [address] Feb, [facility] [id number] [place] [address] Feb, [facility] [id number] [place] [address] Feb, Dysuria R30.0 and Plantar fasciitis of right foot M72.2 [facility] [id number] [place] [address] Feb, [facility] [address] [address] Feb, [facility] [address] [address] Jan, [facility] [id number] [place] [address] Jan, [facility] [id number] [place] [address] Dec, [facility] [address] [place] [address] Dec, [facility] [id number] [place] [address] Dec, [facility] [id number] [place] [address] Nov, [facility] [id number] [place] [address] Sep, [facility] [id number] [place] [address] Aug, Shortness of breath R06.02 and Acute suppurative otitis media of right ear without spontaneous rupture of tympanic membrane, recurrence not specified H66.001 [facility] [id number] [place] [address] 14 Aug, 2015 Internal prolapsed hemorrhoids K64.8 [facility] [id number] [place] [address] Jun, 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 [facility] [id number] [place] [address] May, Fibromyalgia M79.7 ; Interstitial cystitis N30.10 ; Intractable migraine without aura and without status migrainosus G43.019 ; Low vitamin D level E55.9 and Ringing in right ear H93.11 [facility] [address] [place] [address] May, [facility] [id number] [place] [address] May, Low vitamin D level E55.9 [facility] [id number] [place] [address] 29 Apr, 2015 [facility] [id number] [place] [address] Mar, [facility] [id number] [place] [address] 07 Mar, 2015 Acute suppurative otitis media of right ear without spontaneous rupture of tympanic membrane, recurrence not specified H66.001 ; Encounter for immunization Z23 ; Asthma with acute exacerbation, unspecified asthma severity J45.901 ; Memory problem R41.3 ; Acute pain of right knee M25.561 ; Chronic fatigue R53.82 and Excessive urinary volume R35.8 [facility] [address] [address] Feb, [facility] [address] [address] Feb, [facility] [address] [address] Jan, [facility] [address] [address] Nov, Esophageal reflux 530.81 ; Anxiety 300.00 and Tingling in extremities 782.0 [facility] [id number] [place] [address] Oct, [facility] [address] [address] Oct, [facility] [id number] [place] [address] Oct, [facility] [id number] [place] [address] Oct, [facility] [id number] [place] [address] Oct, [facility] [address] [address] Sep, Other chronic allergic conjunctivitis 372.14 ; Irritable bowel syndrome 564.1 ; 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 ; Fibromyalgia 729.1 ; Extremity pain 729.5 and Neck pain 723.[address] [id number] [place] [address] Sep, [facility] [place] [facility] [address] [id number] [place] [address] Aug, [facility] [place] [facility] [address] [id number] [place] [address] Aug, [facility] [address] [id number] [place] [address] July, Vomiting 787.03 [facility] [address] [id number] [place] [id number] July, Dental examination V72.2 [facility] [address] [id number] [place] [address] Jun, [facility] [place] [facility] [address] [id number] [place] [address] Jun, [facility] [place] [facility] [address] [id number] [place] [address] May, [facility] [place] [facility] [address] [id number] [place] [address] May, [facility] [place] [facility] [address] [facility] [id number] [place] [address] May, [facility] [place] [facility] [address] [id number] [place] [address] May, [facility] [place] [facility] [address] [id number] [place] [address] May, [facility] [place] [facility] [address] [id number] [place] [address] May, [facility] [place] [facility] [address] [id number] [place] [address] May, [facility] [place] [facility] [address] [facility] [id number] [place] [address] May, [facility] [place] [facility] [address] [id number] [place] [address] May, [facility] [place] [facility] [address] [id number] [place] [address] Apr, [facility] [place] [facility] [address] [id number] [place] [address] Apr, 2014 [facility] [place] [facility] [address] [id number] [place] [address] Apr, 2014 [facility] [place] [facility] [address] [id number] [place] [address] Apr, 2014 [facility] [place] [facility] [address] [id number] [place] [address] Apr, [facility] [place] [facility] [address] [id number] [place] [address] Apr, [facility] [place] [facility] [address] [place] [id number] [place] [address] Mar, [facility] [place] [facility] [address] [id number] [place] [address] Mar, [facility] [place] [facility] [address] [place] [address] [id number] [place] [address] Mar, [facility] [place] [facility] [address] [facility] [id number] [place] [address] Mar, [facility] [place] [facility] [address] [id number] [place] [address] Mar, [facility] [place] [facility] [address] [id number] [place] [address] Mar, [facility] [place] [facility] [address] [id number] [place] [address] Mar, [facility] [place] [facility] [address] [id number] [place] [address] Mar, [facility] [place] [facility] [address] [id number] [place] [address] Mar, [facility] [place] [facility] [address] [id number] [place] [address] Mar, [facility] [place] [facility] [address] [id number] [place] [address] Mar, [facility] [place] [facility] [address] [id number] [place] [address] Mar, [facility] [place] [facility] [address] [id number] [place] [address] Mar, [facility] [place] [facility] [address] [id number] [place] [address] Mar, [facility] [place] [facility] [address] [id number] [place] [address] Mar, [facility] [place] [facility] [address] [id number] [place] [address] Mar, [facility] [place] [facility] [address] [id number] [place] [address] Mar, [facility] [place] [facility] [address] [id number] [place] [address] Mar, [facility] [place] [facility] [address] [id number] [place] [address] Mar, [facility] [place] [facility] [address] [id number] [place] [address] Feb, [facility] [place] [facility] [address] [id number] [place] [address] Feb, [facility] [place] [facility] [address] [id number] [place] [address] Feb, [facility] [place] [facility] [address] [id number] [place] [address] Feb, [facility] [place] [facility] [address] [id number] [place] [address] Jan, [facility] [place] [facility] [address] [id number] [place] [address] Jan, [facility] [place] [facility] [address] [id number] [place] [address] Jan, [facility] [place] [facility] [address] [id number] [place] [address] 14 Jan, 2014 [facility] [place] [facility] [address] [id number] [place] [address] Jan, [facility] [place] [facility] [address] [id number] [place] [address] Jan, [facility] [place] [facility] [address] [id number] [place] [address] Jan, [facility] [place] [facility] [address] [id number] [place] [address] Jan, [facility] [place] [facility] [address] [facility] [id number] [place] [address] Dec, [facility] [place] [facility] [address] [id number] [place] [address] Dec, [facility] [place] [facility] [address] [facility] [id number] [place] [address] Dec, [facility] [place] [facility] [address] [facility] [id number] [place] [address] 17 Dec, 2013 [facility] [place] [facility] [address] [id number] [place] [address] 22 Nov, 2013 [facility] [place] [facility] [address] [id number] [place] [address] 22 Nov, 2013 [facility] [place] [facility] [address] [id number] [place] [address] 08 Sep2013 [facility] [place] [facility] [address] [id number] [place] [address] 08 Sep2013 [facility] [place] [facility] [address] [facility] [id number] [place] [address] 05 Sep, 2013 [facility] [place] [facility] [address] [id number] [place] [address] 05 Nov, 2013 [facility] [place] [facility] [address] [id number] [place] [address] 04 Nov, 2013 [facility] [place] [facility] [address] [id number] [place] [address] 04 Nov, 2013 [facility] [place] [facility] [address] [id number] [place] [address] 03 Nov, 2013 [facility] [place] [facility] [address] [id number] [place] [address] 03 Nov, 2013 [facility] [place] [facility] [address] [id number] [place] [address] Oct, [facility] [place] [facility] [address] [id number] [place] [address] Oct, [facility] [place] [facility] [address] [id number] [place] [address] Sep, [facility] [place] [facility] [address] [id number] [place] [address] Sep, [facility] [place] [facility] [address] [id number] [place] [address] Sep, [facility] [place] [facility] [address] [id number] [place] [address] Sep, [facility] [place] [facility] [address] [id number] [place] [address] Sep, [facility] [place] [facility] [address] [id number] [place] [address] Sep, [facility] [place] [facility] [address] [id number] [place] [address] Aug, [facility] [place] [facility] [address] [id number] [place] [address] Aug, [facility] [place] [facility] [address] [id number] [place] [address] Aug, [facility] [place] [facility] [address] [id number] [place] [address] Aug, [facility] [place] [facility] [address] [id number] [place] [address] Aug, [facility] [place] [facility] [address] [id number] [place] [address] Aug, [facility] [place] [facility] [address] [id number] [place] [address] July, [facility] [place] [facility] [address] [id number] [place] [address] July, [facility] [place] [facility] [address] [id number] [place] [address] July, [facility] [place] [facility] [address] [id number] [place] [address] July, [facility] [place] [facility] [address] [id number] [place] [address] July, [facility] [place] [facility] [address] [id number] [place] [address] July, [facility] [place] [facility] [address] [id number] [place] [address] Jun, [facility] [place] [facility] [address] [id number] [place] [address] Jun, [facility] [place] [facility] [address] [id number] [place] [address] Jun, [facility] [place] [facility] [address] [id number] [place] [address] Jun, [facility] [place] [facility] [address] [id number] [place] [address] May, [facility] [place] [facility] [address] [id number] [place] [address] May, [facility] [place] [facility] [address] [id number] [place] [address] 18 Apr, 2013 [facility] [address] [id number] [place] [address] 18 Apr, 2013 [facility] [place] [facility] [address] [id number] [place] [address] 07 Apr, 2013 [facility] [address] [id number] [place] [address] Apr, [facility] [place] [facility] [address] [id number] [place] [address] Mar, [facility] [address] [id number] [place] [address] Mar, [facility] [address] [id number] [place] [address] Mar, [facility] [place] [facility] [address] [id number] [place] [address] Mar, [facility] [address] [id number] [place] [address] Mar, [facility] [place] [facility] [address] [facility] [id number] [place] [address] Mar, [facility] [address] [facility] [id number] [place] [address] Feb, [facility] [place] [facility] [address] [id number] [place] [address] Feb, [facility] [place] [facility] [address] [id number] [place] [address] Jan, [facility] [place] [facility] [address] [id number] [place] [address] Jan, [facility] [place] [facility] [address] [id number] [place] [address] Jan, [facility] [place] [facility] [address] [facility] [id number] [place] [address] Jan, [facility] [address] [id number] [place] [address] Nov, [facility] [place] [facility] [address] [id number] [place] [address] Nov, [facility] [place] [facility] [address] [id number] [place] [address] Oct, [facility] [place] [facility] [address] [id number] [place] [address] Oct, [facility] [place] [facility] [address] [id number] [place] [address] Sep, [facility] [place] [facility] [address] [id number] [place] [address] Sep, [facility] [place] [facility] [address] [id number] [place] [address] Sep, [facility] [place] [facility] [address] [id number] [place] [address] Aug, [facility] [place] [facility] [address] [id number] [place] [address] Aug, [facility] [place] [facility] [address] [id number] [place] [address] Aug, [facility] [place] [facility] [address] [id number] [place] [address] Aug, [facility] [place] [facility] [address] [id number] [address] July, [facility] [place] [facility] [address] [id number] [place] [address] July, [facility] [place] [facility] [address] [id number] [place] [address] July, [facility] [place] [facility] [address] [id number] [place] [address] July, [facility] [place] [facility] [address] [id number] [place] [address] Jun, [facility] [address] [id number] [place] [address] Jun, [facility] [place] [facility] [address] [id number] [place] [address] Jun, [facility] [address] [id number] [place] [address] May, [facility] [place] [facility] [address] [id number] [place] [address] May, [facility] [address] [id number] [place] [address] Apr, [facility] [place] [facility] [address] [id number] [place] [address] Apr, [facility] [address] [id number] [place] [address] Apr, [facility] [place] [facility] [address] [id number] [place] [address] Apr, [facility] [address] [id number] [place] [address] Mar, [facility] [address] [id number] [place] [address] Mar, [facility] [address] [id number] [place] [address] Mar, [facility] [place] [facility] [address] [id number] [place] [address] Mar, [facility] [place] [facility] [address] [id number] [place] [address] Feb, [facility] [place] [facility] [address] [id number] [place] [address] Feb, [facility] [address] [id number] [place] [address] Feb, [facility] [place] [facility] [address] [id number] [place] [address] 10 Feb, 2012 [facility] [place] [facility] [address] [id number] [place] [address] 10 Feb, 2012 [facility] [place] [facility] [address] [id number] [place] [address] 06 Feb, 2012 [facility] [place] [facility] [address] [id number] [place] [address] Feb, [facility] [place] [facility] [address] [id number] [place] [address] 04 Feb, 2012 [facility] [place] [facility] [address] [id number] [place] [address] 28 Jan, 2012 [facility] [place] [facility] [address] [id number] [place] [address] 28 Jan, 2012 [facility] [place] [facility] [address] [id number] [place] [address] 15 Jan, 2012 [facility] [place] [facility] [address] [id number] [place] [address] 15 Jan, 2012 [facility] [place] [facility] [address] [id number] [place] [address] 14 Jan, 2012 [facility] [place] [facility] [address] [id number] [place] [address] 13 Jan, 2012 [facility] [place] [facility] [address] [id number] [place] [address] 13 Jan, 2012 [facility] [place] [facility] [address] [id number] [place] [address] 12 Jan, 2012 [facility] [place] [facility] [address] [id number] [place] [address] 12 Jan, 2012 [facility] [place] [facility] [address] [id number] [place] [address] 06 Jan, 2012 [facility] [place] [facility] [address] [id number] [place] [address] Jan, [facility] [place] [facility] [address] [id number] [place] [address] Dec, [facility] [place] [facility] [address] [id number] [place] [address] Dec, [facility] [place] [facility] [address] [id number] [place] [address] Dec, [facility] [place] [facility] [address] [id number] [place] [address] Dec, [facility] [place] [facility] [address] [id number] [place] [address] Dec, [facility] [place] [facility] [address] [id number] [place] [address] Dec, [facility] [place] [facility] [address] [id number] [place] [address] Dec, [facility] [place] [facility] [address] [id number] [place] [address] Dec, [facility] [place] [facility] [address] [id number] [place] [address] Dec, [facility] [place] [facility] [address] [id number] [place] [address] Dec, [facility] [place] [facility] [address] [id number] [place] [address] Dec, [facility] [place] [facility] [address] [id number] [place] [address] Dec, [facility] [place] [facility] [address] [id number] [place] [address] Nov, [facility] [place] [facility] [address] [facility] [id number] [place] [address] Oct, [facility] [place] [facility] [address] [id number] [place] [address] Oct, [facility] [place] [facility] [address] [facility] [id number] [place] [address] Oct, [facility] [address] [facility] [id number] [place] [address] Oct, [facility] [address] [facility] [id number] [place] [address] Sep, [facility] [address] [facility] [id number] [place] [address] Sep, [facility] [address] [facility] [id number] [place] [address] Sep, [facility] [address] [facility] [id number] [place] [address] Sep, [facility] [address] [facility] [id number] [place] [address] Aug, [facility] [id number] [address] Aug, [facility] [address] [id number] [address] Aug, [facility] [id number] [address] Aug, [facility] [address] [id number] [address] Aug, [facility] [id number] [address] July, [facility] [address] [facility] [id number] [place] [address] July, [facility] [id number] [address] July, [facility] [id number] [address] Dec, IMMUNIZATIONS No Known Immunizations SOCIAL HISTORY Never Assessed REASON FOR VISIT Refill Request PLAN OF CARE VITAL SIGNS MEDICATIONS Medication Instructions Dosage Frequency Start Date End Date Duration Status Jayant 150 MG Orally Twice a day 1 [...]
--- OUTSIDE RECORDS SUMMARY | 2018-10-24 12:32 | XMS REPORT ---
Author Author [facility] Address [address] [place] [address] Care Team Providers Care Thermal Engineer Name Role Phone PRADEEP DAMONHANY Unavailable PROBLEMS Type Condition ICD9-CM Code VSR79-ZL Code Onset Dates Condition Status SNOMED Code Problem Fibromyalgia M79.7 Active 51321052 Problem Tinnitus of both ears H93.13 Active 0229222628073 Problem Irritable bowel syndrome without diarrhea K58.9 Active 68917582 Problem COPD exacerbation J44.1 Active 931247343 Problem Menopausal symptoms N95.1 Active 25593100 Problem On antiepileptic therapy Z79.899 Active 308584053 Problem Chronic obstructive pulmonary disease, unspecified COPD type J44.9 Active 93521375 Problem Irritable bowel syndrome with diarrhea K58.0 Active 594420607 Problem Vitamin D deficiency E55.9 Active 64065825 Problem MRSA (methicillin resistant staph aureus) culture positive Z22.322 Active 875559115 Problem Epilepsy G40.909 Active 14836042 Problem Generalized anxiety disorder F41.1 Active 346287732 Problem Interstitial cystitis N30.10 Active 595113011 Problem Esophageal reflux K21.9 Active 736508923 Problem Major depressive disorder F32.9 Active 884354320 Problem Lumbago M54.5 Active 137866773 ALLERGIES No Information ENCOUNTERS Encounter Location Date Diagnosis [facility] [address] [facility] [id number], [place] [address] Oct, [facility] [address] [facility] [id number], [place] [address] Sep, [facility] [address] [facility] [id number], [place] [address] Sep, [facility] [address] [id number] [id number] Aug, Dental examination Z01.20 [place] [id number] [place] [address] Aug, Abscess of axilla, left L02.412 [place] [id number] [place] [address] 08 Aug, 2017 Esophageal reflux K21.9 [place] [id number] [place] [address] Aug, [place] [address] [address] Aug, Esophageal reflux K21.9 ; Fluid level behind tympanic membrane of right ear H65.91 ; Fibromyalgia M79.7 and Lumbago M54.5 [place] [id number] [place] [address] Aug, Esophageal reflux K21.9 [place] [id number] [place] [address] July, [place] [id number] [place] [address] July, [place] [id number] [place] [address] July, Chronic obstructive pulmonary disease, unspecified COPD type J44.9 [place] [id number] [place] [address] July, [place] [id number] [place] [address] July, [place] [id number] [place] [address] July, Interstitial cystitis N30.10 ; Fibromyalgia M79.7 [...] Dysuria R30.0 and Generalized anxiety disorder F41.1 [place] [address] [address] Jun, [place] [address] [address] Jun, Chronic obstructive pulmonary disease, unspecified COPD type J44.9 ; COPD exacerbation J44.1 and Sore throat J02.9 [place] [address] [address] Jun, Fibromyalgia M79.7 [place] [address] [address] Jun, Fibromyalgia M79.7 [place] [address] [address] May, [place] [address] [address] May, [place] [address] [address] May, Fibromyalgia M79.7 [facility] [address] [address] Mar, [place] [address] [address] Mar, Epilepsy G40.909 ; Lumbago M54.5 ; Esophageal reflux K21.9 ; Fibromyalgia M79.7 ; Chronic obstructive pulmonary disease, unspecified COPD type J44.9 ; Vitamin D deficiency E55.9 ; Fluid level behind tympanic membrane of right ear H65.91 ; Irritable bowel syndrome with diarrhea K58.0 ; Hematochezia K92.1 and Generalized anxiety disorder F41.1 [place] [id number] [place] [address] Mar, [place] [id number] [place] [address] Mar, [facility] [id number] [place] [address] Mar, Vitamin D deficiency E55.9 [facility] [id number] [place] [address] Feb, [facility] [address] [address] Feb, [facility] [id number] [place] [address] Jan, Fibromyalgia M79.7 [facility] [address] [address] Jan, [facility] [id number] [place] [address] Jan, [facility] [id number] [place] [address] Jan, Vitamin D deficiency E55.9 [facility] [id number] [place] [address] Dec, [facility] [id number] [place] [address] Dec, [facility] [id number] [place] [address] Dec, Generalized anxiety disorder F41.1 [facility] [id number] [place] [address] Dec, Dysuria R30.0 ; Acute bilateral low back pain without sciatica M54.5 and Encounter for immunization Z23 [facility] [id number] [place] [address] Oct, [facility] [id number] [place] [address] Oct, Fibromyalgia M79.7 [facility] [address] [place] [address] Sep, Dysuria R30.0 and Acute bronchitis, unspecified organism J20.9 [facility] [address] [place] [address] Sep, [facility] [address] [id number] [place] [address] Sep, Rectal prolapse K62.3 [facility] [id number] [place] [address] Sep, Chronic obstructive pulmonary disease, unspecified COPD type J44.9 [place] [address] [id number] Aug, [place] [address] [place] [id number] [place] [id number] Aug, [place] [id number] [place] [address] Aug, Light headedness R42 ; On antiepileptic therapy Z79.899 ; Vitamin D deficiency E55.9 ; Screening for lipid disorders Z13.220 ; Dysuria R30.0 and Hemorrhoids, unspecified hemorrhoid type K64.9 [place] [address] [place] [address] Aug, Internal prolapsed hemorrhoids K64.8 [place] [address] [place] [address] July, [place] [id number] [place] [address] May, [place] [id number] [place] [address] May, Fever and chills R50.9 and Influenza B J10.1 [place] [address] [place] [address] Apr, [place] [id number] [place] [address] Apr, Fibromyalgia M79.7 and Generalized anxiety disorder F41.1 [place] [address] [address] 19 Mar, 2016 Esophageal reflux K21.9 ; Generalized anxiety disorder F41.1 and Epilepsy G40.909 [place] [address] [address] Mar, Epilepsy G40.909 ; Esophageal reflux K21.9 ; Fibromyalgia M79.7 ; Generalized anxiety disorder F41.1 ; Pain of left foot M79.672 ; Pain in right foot M79.671 ; Ear pain, right H92.01 ; Tinnitus of both ears H93.13 ; Chronic obstructive pulmonary disease, unspecified COPD type J44.9 ; Vitamin D deficiency E55.9 ; Screening for lipid disorders Z13.220 and On antiepileptic therapy Z79.899 [place] [address] [address] Feb, [facility] [id number] [place] [address] Feb, [facility] [id number] [place] [address] Feb, Dysuria R30.0 and Plantar fasciitis of right foot M72.2 [place] [id number] [place] [address] Feb, [facility] [address] [address] Feb, [place] [address] [address] Jan, [place] [id number] [place] [address] Jan, [facility] [address] [id number] [place] [address] Dec, [facility] [address] [place] [address] Dec, [facility] [address] [id number] [place] [address] Dec, [facility] [address] [id number] [place] [address] Nov, [facility] [address] [id number] [place] [address] Sep, [facility] [id number] [place] [address] Aug, Shortness of breath R06.02 and Acute suppurative otitis media of right ear without spontaneous rupture of tympanic membrane, recurrence not specified H66.001 [place] [id number] [place] [address] 14 Aug, 2015 Internal prolapsed hemorrhoids K64.8 [place] [id number] [place] [address] Jun, 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 [place] [id number] [place] [address] May, Fibromyalgia M79.7 ; Interstitial cystitis N30.10 ; Intractable migraine without aura and without status migrainosus G43.019 ; Low vitamin D level E55.9 and Ringing in right ear H93.11 [place] [address] [place] [address] May, [facility] [id number] [place] [address] May, Low vitamin D level E55.9 [place] [id number] [place] [address] 29 Apr, 2015 [facility] [id number] [place] [address] Mar, [place] [id number] [place] [address] 07 Mar, 2015 Acute suppurative otitis media of right ear without spontaneous rupture of tympanic membrane, recurrence not specified H66.001 ; Encounter for immunization Z23 ; Asthma with acute exacerbation, unspecified asthma severity J45.901 ; Memory problem R41.3 ; Acute pain of right knee M25.561 ; Chronic fatigue R53.82 and Excessive urinary volume R35.8 [place] [address] [address] Feb, [place] [address] [address] Feb, [place] [address] [address] Jan, [place] [address] [address] Nov, Esophageal reflux 530.81 ; Anxiety 300.00 and Tingling in extremities 782.0 [place] [id number] [place] [address] Oct, [place] [address] [address] Oct, [place] [address] [id number] [place] [address] Oct, [place] [address] [id number] [place] [address] Oct, [place] [address] [id number] [place] [address] Oct, [place] [address] [address] Sep, Other chronic allergic conjunctivitis 372.14 ; Irritable bowel syndrome 564.1 ; 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 ; Fibromyalgia 729.1 ; Extremity pain 729.5 and Neck pain 723.[address] [id number] [place] [address] Sep, [facility] [place] [facility] [address] [id number], [place] [address] Aug, [facility] [place] [facility] [address] [id number], [place] [address] Aug, [facility] [address] [id number], [place] [address] July, Vomiting 787.03 [facility] [address] [id number] [id number] July, Dental examination V72.2 [facility] [address] [id number], [place] [address] Jun, [facility] [place] [facility] [address] [id number], [place] [address] Jun, [facility] [place] [facility] [address] [id number], [place] [address] May, [facility] [place] [facility] [address] [id number], [place] [address] May, [facility] [place] [facility] [address] [facility] [id number], [place] [address] May, [facility] [place] [facility] [address] [id number], [place] [address] May, [facility] [place] [facility] [address] [id number], [place] [address] May, [facility] [place] [facility] [address] [id number], [place] [address] May, [facility] [place] [facility] [address] [id number], [place] [address] May, [facility] [place] [facility] [address] [facility] [id number], [place] [address] May, [facility] [place] [facility] [address] [id number] [place] [address] May, [facility] [place] [facility] [address] [id number] [place] [address] Apr, [facility] [place] [facility] [address] [id number] [place] [address] Apr, 2014 [facility] [place] [facility] [address] [id number] [place] [address] Apr, 2014 [facility] [place] [facility] [address] [id number] [place] [address] Apr, 2014 [facility] [place] [facility] [address] [id number] [place] [address] Apr, [facility] [place] [facility] [address] [id number] [place] [address] Apr, [facility] [place] [facility] [address] [place] [id number] [place] [address] Mar, [facility] [place] [facility] [address] [id number] [place] [address] Mar, [facility] [place] [facility] [address] [place] [id number] [place] [address] Mar, [facility] [place] [facility] [address] [facility] [id number] [place] [address] Mar, [facility] [place] [facility] [address] [id number] [place] [address] Mar, [facility] [place] [facility] [address] [id number] [place] [address] Mar, [facility] [place] [facility] [address] [id number] [place] [address] Mar, [facility] [place] [facility] [address] [id number] [place] [address] Mar, [facility] [place] [facility] [address] [id number] [place] [address] Mar, [facility] [place] [facility] [address] [id number] [place] [address] Mar, [facility] [place] [facility] [address] [id number] [place] [address] Mar, [facility] [place] [facility] [address] [id number] [place] [address] Mar, [facility] [place] [facility] [address] [id number] [place] [address] Mar, [facility] [place] [facility] [address] [id number] [place] [address] Mar, [facility] [place] [facility] [address] [id number] [place] [address] Mar, [facility] [place] [facility] [address] [id number] [place] [address] Mar, [facility] [place] [facility] [address] [id number] [place] [address] Mar, [facility] [place] [facility] [address] [id number] [place] [address] Mar, [facility] [place] [facility] [address] [id number] [place] [address] Mar, [facility] [place] [facility] [address] [id number] [place] [address] Feb, [facility] [place] [facility] [address] [id number], [place] [address] Feb, [facility] [place] [facility] [address] [id number] [place] [address] Feb, [facility] [place] [facility] [address] [id number] [place] [address] Feb, [facility] [place] [facility] [address] [id number], [place] [address] Jan, [facility] [place] [facility] [address] [id number], [place] [address] Jan, [facility] [place] [facility] [address] [id number] [place] [address] Jan, [facility] [place] [facility] [address] [id number] [place] [address] 14 Jan, 2014 [facility] [place] [facility] [address] [id number] [place] [address] Jan, [facility] [place] [facility] [address] [id number] [place] [address] Jan, [facility] [place] [facility] [address] [id number] [place] [address] Jan, [facility] [place] [facility] [address] [id number] [place] [address] Jan, [facility] [place] [facility] [address] [facility] [id number] [place] [address] Dec, [facility] [place] [facility] [address] [id number] [place] [address] Dec, [facility] [place] [facility] [address] [facility] [id number] [place] [address] Dec, [facility] [place] [facility] [address] [facility] [id number] [place] [address] 17 Dec, 2013 [facility] [place] [facility] [address] [id number] [place] [address] 22 Nov, 2013 [facility] [place] [facility] [address] [id number] [place] [address] 22 Nov, 2013 [facility] [place] [facility] [address] [id number] [place] [address] 08 Sep2013 [facility] [place] [facility] [address] [id number] [place] [address] 08 Sep2013 [facility] [place] [facility] [address] [facility] [id number] [place] [address] 05 Sep, 2013 [facility] [place] [facility] [address] [id number] [place] [address] 05 Nov, 2013 [facility] [place] [facility] [address] [id number] [place] [address] 04 Nov, 2013 [facility] [place] [facility] [address] [id number] [place] [address] 04 Nov, 2013 [facility] [place] [facility] [address] [id number] [place] [address] 03 Nov, 2013 [facility] [place] [facility] [address] [id number] [place] [address] 03 Nov, 2013 [facility] [place] [facility] [address] [id number] [place] [address] Oct, [facility] [place] [facility] [address] [id number] [place] [address] Oct, [facility] [place] [facility] [address] [id number] [place] [address] Sep, [facility] [place] [facility] [address] [id number] [place] [address] Sep, [facility] [place] [facility] [address] [id number] [place] [address] Sep, [facility] [place] [facility] [address] [id number] [place] [address] Sep, [facility] [place] [facility] [address] [id number] [place] [address] Sep, [facility] [place] [facility] [address] [id number] [place] [address] Sep, [facility] [place] [facility] [address] [id number] [place] [address] Aug, [facility] [place] [facility] [address] [id number] [place] [address] Aug, [facility] [place] [facility] [address] [id number] [place] [address] Aug, [facility] [place] [facility] [address] [id number] [place] [address] Aug, [facility] [place] [facility] [address] [id number] [place] [address] Aug, [facility] [place] [facility] [address] [id number] [place] [address] Aug, [facility] [place] [facility] [address] [id number] [place] [address] July, [facility] [place] [facility] [address] [id number] [place] [address] July, [facility] [place] [facility] [address] [id number] [place] [address] July, [facility] [place] [facility] [address] [id number] [place] [address] July, [facility] [place] [facility] [address] [id number] [place] [address] July, [facility] [place] [facility] [address] [id number] [place] [address] July, [facility] [place] [facility] [address] [id number] [place] [address] Jun, [facility] [place] [facility] [address] [id number] [place] [address] Jun, [facility] [place] [facility] [address] [id number] [place] [address] Jun, [facility] [place] [facility] [address] [id number] [place] [address] Jun, [facility] [place] [facility] [address] [id number] [place] [address] May, [facility] [place] [facility] [address] [id number] [place] [address] May, [facility] [place] [facility] [address] [id number] [place] [address] 18 Apr, 2013 [facility] [address] [id number] [place] [address] 18 Apr, 2013 [facility] [place] [facility] [address] [id number] [place] [address] 07 Apr, 2013 [facility] [address] [id number] [place] [address] Apr, [facility] [place] [facility] [address] [id number] [place] [address] Mar, [facility] [address] [id number] [place] [address] Mar, [facility] [address] [id number] [place] [address] Mar, [facility] [place] [facility] [address] [id number] [place] [address] Mar, [facility] [address] [id number] [place] [address] Mar, [facility] [place] [facility] [address] [facility] [id number] [place] [address] Mar, [facility] [address] [facility] [id number] [place] [address] Feb, [facility] [place] [facility] [address] [id number] [place] [address] Feb, [facility] [place] [facility] [address] [id number] [place] [address] Jan, [facility] [place] [facility] [address] [id number] [place] [address] Jan, [facility] [place] [facility] [address] [id number] [place] [address] Jan, [facility] [place] [facility] [address] [facility] [id number] [place] [address] Jan, [facility] [address] [id number] [place] [address] Nov, [facility] [place] [facility] [address] [id number] [place] [address] Nov, [facility] [place] [facility] [address] [id number] [place] [address] Oct, [facility] [place] [facility] [address] [id number] [place] [address] Oct, [facility] [place] [facility] [address] [id number] [place] [address] Sep, [facility] [place] [facility] [address] [id number] [place] [address] Sep, [facility] [place] [facility] [address] [id number] [place] [address] Sep, [facility] [place] [facility] [address] [id number] [place] [address] Aug, [facility] [place] [facility] [address] [id number] [place] [address] Aug, [facility] [place] [facility] [address] [id number] [place] [address] Aug, [facility] [place] [facility] [address] [id number] [place] [address] Aug, [facility] [place] [facility] [address] [id number], [place] [address] July, [facility] [place] [facility] [address] [id number] [place] [address] July, [facility] [place] [facility] [address] [id number] [place] [address] July, [facility] [place] [facility] [address] [id number] [place] [address] July, [facility] [place] [facility] [address] [id number] [place] [address] Jun, [facility] [address] [id number] [place] [address] Jun, [facility] [place] [facility] [address] [id number] [place] [address] Jun, [facility] [address] [id number] [place] [address] May, [facility] [place] [facility] [address] [id number] [place] [address] May, [facility] [address] [id number] [place] [address] Apr, [facility] [place] [facility] [address] [id number] [place] [address] Apr, [facility] [address] [id number] [place] [address] Apr, [facility] [place] [facility] [address] [id number] [place] [address] Apr, [facility] [address] [address] [id number] [place] [address] Mar, [facility] [address] [id number] [place] [address] Mar, [facility] [address] [id number] [place] [address] Mar, [facility] [place] [facility] [address] [id number] [place] [address] Mar, [facility] [place] [facility] [address] [id number] [place] [address] Feb, [facility] [place] [facility] [address] [id number] [place] [address] Feb, [facility] [address] [id number] [place] [address] Feb, [facility] [place] [facility] [address] [id number] [place] [address] 10 Feb, 2012 [facility] [place] [facility] [address] [id number] [place] [address] 10 Feb, 2012 [facility] [place] [facility] [address] [id number] [place] [address] 06 Feb, 2012 [facility] [place] [facility] [address] [id number] [place] [address] Feb, [facility] [place] [facility] [address] [id number] [place] [address] 04 Feb, 2012 [facility] [place] [facility] [address] [id number] [place] [address] 28 Jan, 2012 [facility] [place] [facility] [address] [id number] [place] [address] 28 Jan, 2012 [facility] [place] [facility] [address] [id number] [place] [address] 15 Jan, 2012 [facility] [place] [facility] [address] [id number] [place] [address] 15 Jan, 2012 [facility] [place] [facility] [address] [id number] [place] [address] 14 Jan, 2012 [facility] [place] [facility] [address] [id number] [place] [address] 13 Jan, 2012 [facility] [place] [facility] [address] [id number] [place] [address] 13 Jan, 2012 [facility] [place] [facility] [address] [id number] [place] [address] 12 Jan, 2012 [facility] [place] [facility] [address] [id number] [place] [address] 12 Jan, 2012 [facility] [place] [facility] [address] [id number] [place] [address] 06 Jan, 2012 [facility] [place] [facility] [address] [id number], [place] [address] Jan, [facility] [place] [facility] [address] [id number] [place] [address] Dec, [facility] [place] [facility] [address] [id number] [place] [address] Dec, [facility] [place] [facility] [address] [id number] [place] [address] Dec, [facility] [place] [facility] [address] [id number] [place] [address] Dec, [facility] [place] [facility] [address] [id number] [place] [address] Dec, [facility] [place] [facility] [address] [id number] [place] [address] Dec, [facility] [place] [facility] [address] [id number] [place] [address] Dec, [facility] [place] [facility] [address] [id number] [place] [address] Dec, [facility] [place] [facility] [address] [id number] [place] [address] Dec, [facility] [place] [facility] [address] [id number] [place] [address] Dec, [facility] [place] [facility] [address] [id number], [place] [address] Dec, [facility] [place] [facility] [address] [id number], [place] [address] Dec, [facility] [place] [facility] [address] [id number] [place] [address] Nov, [facility] [place] [facility] [address] [facility] [id number], [place] [address] Oct, [facility] [place] [facility] [address] [id number] [place] [address] Oct, [facility] [place] [facility] [id number], [place] [address] Oct, [facility] [id number] [place] [address] Oct, [facility] [id number] [place] [address] Sep, [facility] [id number], [place] [address] Sep, [facility] [id number] [place] [address] Sep, [facility] [id number] [place] [address] Sep, [facility] [id number], [place] [address] Aug, [facility] [id number] [place] [address] Aug, [facility] [id number] [place] [address] Aug, [facility] [id number] [place] [address] Aug, [facility] [id number] [place] [address] Aug, [facility] [id number] [place] [address] July, [facility] [id number] [place] [address] July, [facility] [id number] [place] [address] July, [facility] [id number] [place] [address] Dec, IMMUNIZATIONS No Known Immunizations SOCIAL HISTORY Never Assessed REASON FOR VISIT Refill Requests PLAN OF CARE VITAL SIGNS MEDICATIONS Unknown [...]
--- OUTSIDE RECORDS SUMMARY | 2018-10-24 12:32 | XMS REPORT ---
Author Author NELSON DIANN [facility] Address [address] [place] [address] Care Team Providers Care Can Line Examiner Name Role Phone PRADEEP DAMONHANY Unavailable PROBLEMS Type Condition ICD9-CM Code NAO87-NK Code Onset Dates Condition Status SNOMED Code Problem Fibromyalgia M79.7 Active 43281111 Problem Tinnitus of both ears H93.13 Active 4487894760875 Problem Irritable bowel syndrome without diarrhea K58.9 Active 82531523 Problem COPD exacerbation J44.1 Active 684279782 Problem Menopausal symptoms N95.1 Active 14052603 Problem On antiepileptic therapy Z79.899 Active 736693386 Problem Chronic obstructive pulmonary disease, unspecified COPD type J44.9 Active 66893284 Problem Irritable bowel syndrome with diarrhea K58.0 Active 999235977 Problem Vitamin D deficiency E55.9 Active 89418694 Problem MRSA (methicillin resistant staph aureus) culture positive Z22.322 Active 807062263 Problem Epilepsy G40.909 Active 73863137 Problem Generalized anxiety disorder F41.1 Active 326768155 Problem Interstitial cystitis N30.10 Active 786931840 Problem Esophageal reflux K21.9 Active 477302823 Problem Major depressive disorder F32.9 Active 268308663 Problem Lumbago M54.5 Active 216348774 ALLERGIES No Information ENCOUNTERS Encounter Location Date Diagnosis [facility] [address] [facility] [id number], [place] [address] Oct, [facility] [address] [facility] [id number], [place] [address] Sep, [facility] [address] [facility] [id number], [place] [address] Sep, [facility] [address] [id number][place] [id number] Aug, Dental examination Z01.20 [place] [id number] [place] [address] Aug, Abscess of axilla, left L02.412 [place] [id number] [place] [address] 08 Aug, 2017 Esophageal reflux K21.9 [place] [id number] [place] [address] Aug, [place] [address] [address] Aug, Esophageal reflux K21.9 ; Fluid level behind tympanic membrane of right ear H65.91 ; Fibromyalgia M79.7 and Lumbago M54.5 [place] [id number] [place] [address] Aug, Esophageal reflux K21.9 [place] [id number] [place] [address] July, [place] [id number] [place] [address] July, [place] [id number] [place] [address] July, Chronic obstructive pulmonary disease, unspecified COPD type J44.9 [place] [id number] [place] [address] July, [place] [id number] [place] [address] July, [place] [id number] [place] [address] July, Interstitial cystitis N30.10 ; Fibromyalgia M79.7 [...] Dysuria R30.0 and Generalized anxiety disorder F41.1 [place] [address] [address] Jun, [place] [address] [address] Jun, Chronic obstructive pulmonary disease, unspecified COPD type J44.9 ; COPD exacerbation J44.1 and Sore throat J02.9 [place] [address] [address] Jun, Fibromyalgia M79.7 [place] [address] [address] Jun, Fibromyalgia M79.7 [place] [address] [address] May, [place] [address] [address] May, [place] [address] [address] May, Fibromyalgia M79.7 [facility] [address] [address] Mar, [place] [address] [address] Mar, Epilepsy G40.909 ; Lumbago M54.5 ; Esophageal reflux K21.9 ; Fibromyalgia M79.7 ; Chronic obstructive pulmonary disease, unspecified COPD type J44.9 ; Vitamin D deficiency E55.9 ; Fluid level behind tympanic membrane of right ear H65.91 ; Irritable bowel syndrome with diarrhea K58.0 ; Hematochezia K92.1 and Generalized anxiety disorder F41.1 [place] [id number] [place] [address] Mar, [place] [id number] [place] [address] Mar, [facility] [id number] [place] [address] Mar, Vitamin D deficiency E55.9 [facility] [id number] [place] [address] Feb, [facility] [address] [address] Feb, [facility] [id number] [place] [address] Jan, Fibromyalgia M79.7 [facility] [address] [address] Jan, [facility] [id number] [place] [address] Jan, [facility] [id number] [place] [address] Jan, Vitamin D deficiency E55.9 [facility] [id number] [place] [address] Dec, [facility] [id number] [place] [address] Dec, [facility] [id number] [place] [address] Dec, Generalized anxiety disorder F41.1 [facility] [id number] [place] [address] Dec, Dysuria R30.0 ; Acute bilateral low back pain without sciatica M54.5 and Encounter for immunization Z23 [facility] [id number] [place] [address] Oct, [facility] [id number] [place] [address] Oct, Fibromyalgia M79.7 [facility] [id number] [place] [address] Sep, Dysuria R30.0 and Acute bronchitis, unspecified organism J20.9 [facility] [address] [place] [address] Sep, [facility] [id number] [place] [address] Sep, Rectal prolapse K62.3 [facility] [id number] [place] [address] Sep, Chronic obstructive pulmonary disease, unspecified COPD type J44.9 [place] [address] [id number] Aug, [place] [address] [id number] [place] [id number] Aug, [place] [id number] [place] [address] Aug, Light headedness R42 ; On antiepileptic therapy Z79.899 ; Vitamin D deficiency E55.9 ; Screening for lipid disorders Z13.220 ; Dysuria R30.0 and Hemorrhoids, unspecified hemorrhoid type K64.9 [place] [id number] [place] [address] Aug, Internal prolapsed hemorrhoids K64.8 [place] [id number] [place] [address] July, [place] [id number] [place] [address] May, [place] [id number] [place] [address] May, Fever and chills R50.9 and Influenza B J10.1 [place] [address] [place] [address] Apr, [place] [id number] [place] [address] Apr, Fibromyalgia M79.7 and Generalized anxiety disorder F41.1 [place] [address] [address] 19 Mar, 2016 Esophageal reflux K21.9 ; Generalized anxiety disorder F41.1 and Epilepsy G40.909 [place] [address] [address] Mar, Epilepsy G40.909 ; Esophageal reflux K21.9 ; Fibromyalgia M79.7 ; Generalized anxiety disorder F41.1 ; Pain of left foot M79.672 ; Pain in right foot M79.671 ; Ear pain, right H92.01 ; Tinnitus of both ears H93.13 ; Chronic obstructive pulmonary disease, unspecified COPD type J44.9 ; Vitamin D deficiency E55.9 ; Screening for lipid disorders Z13.220 and On antiepileptic therapy Z79.899 [place] [address] [address] Feb, [facility] [id number] [place] [address] Feb, [facility] [id number] [place] [address] Feb, Dysuria R30.0 and Plantar fasciitis of right foot M72.2 [place] [id number] [place] [address] Feb, [facility] [address] [address] Feb, [place] [address] [address] Jan, [place] [id number] [place] [address] Jan, [facility] [id number] [place] [address] Dec, [facility] [address] [place] [address] Dec, [facility] [id number] [place] [address] Dec, [facility] [id number] [place] [address] Nov, [facility] [id number] [place] [address] Sep, [facility] [id number] [place] [address] Aug, Shortness of breath R06.02 and Acute suppurative otitis media of right ear without spontaneous rupture of tympanic membrane, recurrence not specified H66.001 [place] [id number] [place] [address] 14 Aug, 2015 Internal prolapsed hemorrhoids K64.8 [place] [id number] [place] [address] Jun, 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 [place] [id number] [place] [address] May, Fibromyalgia M79.7 ; Interstitial cystitis N30.10 ; Intractable migraine without aura and without status migrainosus G43.019 ; Low vitamin D level E55.9 and Ringing in right ear H93.11 [place] [id number] [place] [address] May, [facility] [id number] [place] [address] May, Low vitamin D level E55.9 [place] [id number] [place] [address] 29 Apr, 2015 [facility] [id number] [place] [address] Mar, [place] [id number] [place] [address] 07 Mar, 2015 Acute suppurative otitis media of right ear without spontaneous rupture of tympanic membrane, recurrence not specified H66.001 ; Encounter for immunization Z23 ; Asthma with acute exacerbation, unspecified asthma severity J45.901 ; Memory problem R41.3 ; Acute pain of right knee M25.561 ; Chronic fatigue R53.82 and Excessive urinary volume R35.8 [place] [address] [address] Feb, [place] [address] [address] Feb, [place] [address] [address] Jan, [place] [address] [address] Nov, Esophageal reflux 530.81 ; Anxiety 300.00 and Tingling in extremities 782.0 [place] [id number] [place] [address] Oct, [place] [address] [address] Oct, [place] [id number] [place] [address] Oct, [place] [id number] [place] [address] Oct, [place] [id number] [place] [address] Oct, [place] [address] [address] Sep, Other chronic allergic conjunctivitis 372.14 ; Irritable bowel syndrome 564.1 ; 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 ; Fibromyalgia 729.1 ; Extremity pain 729.5 and Neck pain 723.[address] [id number] [place] [address] Sep, [facility] [place] [facility] [address] [id number], [place] [address] Aug, [facility] [place] [facility] [address] [id number], [place] [address] Aug, [facility] [address] [id number], [place] [address] July, Vomiting 787.03 [facility] [address] [id number][place] [id number] July, Dental examination V72.2 [facility] [address] [id number], [place] [address] Jun, [facility] [place] [facility] [address] [id number], [place] [address] Jun, [facility] [place] [facility] [address] [id number], [place] [address] May, [facility] [place] [facility] [address] [id number], [place] [address] May, [facility] [place] [facility] [address] [facility] [id number], [place] [address] May, [facility] [place] [facility] [address] [id number], [place] [address] May, [facility] [place] [facility] [address] [id number], [place] [address] May, [facility] [place] [facility] [address] [id number], [place] [address] May, [facility] [place] [facility] [address] [id number], [place] [address] May, [facility] [place] [facility] [address] [facility] [id number], [place] [address] May, [facility] [place] [facility] [address] [id number] [place] [address] May, [facility] [place] [facility] [address] [id number] [place] [address] Apr, [facility] [place] [facility] [address] [id number] [place] [address] Apr, 2014 [facility] [place] [facility] [address] [id number] [place] [address] Apr, 2014 [facility] [place] [facility] [address] [id number] [place] [address] Apr, 2014 [facility] [place] [facility] [address] [id number] [place] [address] Apr, [facility] [place] [facility] [address] [id number] [place] [address] Apr, [facility] [place] [facility] [address] [id number] [place] [address] Mar, [facility] [place] [facility] [address] [id number] [place] [address] Mar, [facility] [place] [facility] [address] [id number] [place] [address] Mar, [facility] [place] [facility] [address] [facility] [id number] [place] [address] Mar, [facility] [place] [facility] [address] [id number] [place] [address] Mar, [facility] [place] [facility] [address] [id number] [place] [address] Mar, [facility] [place] [facility] [address] [id number] [place] [address] Mar, [facility] [place] [facility] [address] [id number] [place] [address] Mar, [facility] [place] [facility] [address] [id number] [place] [address] Mar, [facility] [place] [facility] [address] [id number] [place] [address] Mar, [facility] [place] [facility] [address] [id number] [place] [address] Mar, [facility] [place] [facility] [address] [id number] [place] [address] Mar, [facility] [place] [facility] [address] [id number] [place] [address] Mar, [facility] [place] [facility] [address] [id number] [place] [address] Mar, [facility] [place] [facility] [address] [id number] [place] [address] Mar, [facility] [place] [facility] [address] [id number] [place] [address] Mar, [facility] [place] [facility] [address] [id number] [place] [address] Mar, [facility] [place] [facility] [address] [id number] [place] [address] Mar, [facility] [place] [facility] [address] [id number] [place] [address] Mar, [facility] [place] [facility] [address] [id number] [place] [address] Feb, [facility] [place] [facility] [address] [id number], [place] [address] Feb, [facility] [place] [facility] [address] [id number] [place] [address] Feb, [facility] [place] [facility] [address] [id number] [place] [address] Feb, [facility] [place] [facility] [address] [id number], [place] [address] Jan, [facility] [place] [facility] [address] [id number], [place] [address] Jan, [facility] [place] [facility] [address] [id number] [place] [address] Jan, [facility] [place] [facility] [address] [id number] [place] [address] 14 Jan, 2014 [facility] [place] [facility] [address] [id number] [place] [address] Jan, [facility] [place] [facility] [address] [id number] [place] [address] Jan, [facility] [place] [facility] [address] [id number] [place] [address] Jan, [facility] [place] [facility] [address] [id number] [place] [address] Jan, [facility] [place] [facility] [address] [facility] [id number] [place] [address] Dec, [facility] [place] [facility] [address] [id number] [place] [address] Dec, [facility] [place] [facility] [address] [facility] [id number] [place] [address] Dec, [facility] [place] [facility] [address] [facility] [id number] [place] [address] 17 Dec, 2013 [facility] [place] [facility] [address] [id number] [place] [address] 22 Nov, 2013 [facility] [place] [facility] [address] [id number] [place] [address] 22 Nov, 2013 [facility] [place] [facility] [address] [id number] [place] [address] 08 Sep2013 [facility] [place] [facility] [address] [id number] [place] [address] 08 Sep2013 [facility] [place] [facility] [address] [facility] [id number] [place] [address] 05 Sep, 2013 [facility] [place] [facility] [address] [id number] [place] [address] 05 Nov, 2013 [facility] [place] [facility] [address] [id number] [place] [address] 04 Nov, 2013 [facility] [place] [facility] [address] [id number] [place] [address] 04 Nov, 2013 [facility] [place] [facility] [address] [id number] [place] [address] 03 Nov, 2013 [facility] [place] [facility] [address] [id number] [place] [address] 03 Nov, 2013 [facility] [place] [facility] [address] [id number] [place] [address] Oct, [facility] [place] [facility] [address] [id number] [place] [address] Oct, [facility] [place] [facility] [address] [id number] [place] [address] Sep, [facility] [place] [facility] [address] [id number] [place] [address] Sep, [facility] [place] [facility] [address] [id number] [place] [address] Sep, [facility] [place] [facility] [address] [id number] [place] [address] Sep, [facility] [place] [facility] [address] [id number] [place] [address] Sep, [facility] [place] [facility] [address] [id number] [place] [address] Sep, [facility] [place] [facility] [address] [id number] [place] [address] Aug, [facility] [place] [facility] [address] [id number] [place] [address] Aug, [facility] [place] [facility] [address] [id number] [place] [address] Aug, [facility] [place] [facility] [address] [id number] [place] [address] Aug, [facility] [place] [facility] [address] [id number] [place] [address] Aug, [facility] [place] [facility] [address] [id number] [place] [address] Aug, [facility] [place] [facility] [address] [id number] [place] [address] July, [facility] [place] [facility] [address] [id number] [place] [address] July, [facility] [place] [facility] [address] [id number] [place] [address] July, [facility] [place] [facility] [address] [id number] [place] [address] July, [facility] [place] [facility] [address] [id number] [place] [address] July, [facility] [place] [facility] [address] [id number] [place] [address] July, [facility] [place] [facility] [address] [id number] [place] [address] Jun, [facility] [place] [facility] [address] [id number] [place] [address] Jun, [facility] [place] [facility] [address] [id number] [place] [address] Jun, [facility] [place] [facility] [address] [id number] [place] [address] Jun, [facility] [place] [facility] [address] [id number] [place] [address] May, [facility] [place] [facility] [address] [id number] [place] [address] May, [facility] [place] [facility] [address] [id number] [place] [address] 18 Apr, 2013 [facility] [address] [id number] [place] [address] 18 Apr, 2013 [facility] [place] [facility] [address] [id number] [place] [address] 07 Apr, 2013 [facility] [address] [id number] [place] [address] Apr, [facility] [place] [facility] [address] [id number] [place] [address] Mar, [facility] [address] [id number] [place] [address] Mar, [facility] [address] [id number] [place] [address] Mar, [facility] [place] [facility] [address] [id number] [place] [address] Mar, [facility] [address] [id number] [place] [address] Mar, [facility] [place] [facility] [address] [facility] [id number] [place] [address] Mar, [facility] [address] [facility] [id number] [place] [address] Feb, [facility] [place] [facility] [address] [id number] [place] [address] Feb, [facility] [place] [facility] [address] [id number] [place] [address] Jan, [facility] [place] [facility] [address] [id number] [place] [address] Jan, [facility] [place] [facility] [address] [id number] [place] [address] Jan, [facility] [place] [facility] [address] [facility] [id number] [place] [address] Jan, [facility] [address] [id number] [place] [address] Nov, [facility] [place] [facility] [address] [id number] [place] [address] Nov, [facility] [place] [facility] [address] [id number] [place] [address] Oct, [facility] [place] [facility] [address] [id number] [place] [address] Oct, [facility] [place] [facility] [address] [id number] [place] [address] Sep, [facility] [place] [facility] [address] [id number] [place] [address] Sep, [facility] [place] [facility] [address] [id number] [place] [address] Sep, [facility] [place] [facility] [address] [id number] [place] [address] Aug, [facility] [place] [facility] [address] [id number] [place] [address] Aug, [facility] [place] [facility] [address] [id number] [place] [address] Aug, [facility] [place] [facility] [address] [id number] [place] [address] Aug, [facility] [place] [facility] [address] [id number], [place] [address] July, [facility] [place] [facility] [address] [id number] [place] [address] July, [facility] [place] [facility] [address] [id number] [place] [address] July, [facility] [place] [facility] [address] [id number] [place] [address] July, [facility] [place] [facility] [address] [id number] [place] [address] Jun, [facility] [address] [id number] [place] [address] Jun, [facility] [place] [facility] [address] [id number] [place] [address] Jun, [facility] [address] [id number] [place] [address] May, [facility] [place] [facility] [address] [id number] [place] [address] May, [facility] [address] [id number] [place] [address] Apr, [facility] [place] [facility] [address] [id number] [place] [address] Apr, [facility] [address] [id number] [place] [address] Apr, [facility] [place] [facility] [address] [id number] [place] [address] Apr, [facility] [address] [id number] [place] [address] Mar, [facility] [address] [id number] [place] [address] Mar, [facility] [address] [id number] [place] [address] Mar, [facility] [place] [facility] [address] [id number] [place] [address] Mar, [facility] [place] [facility] [address] [id number] [place] [address] Feb, [facility] [place] [facility] [address] [id number] [place] [address] Feb, [facility] [address] [id number] [place] [address] Feb, [facility] [place] [facility] [address] [id number] [place] [address] 10 Feb, 2012 [facility] [place] [facility] [address] [id number] [place] [address] 10 Feb, 2012 [facility] [place] [facility] [address] [id number] [place] [address] 06 Feb, 2012 [facility] [place] [facility] [address] [id number] [place] [address] Feb, [facility] [place] [facility] [address] [id number] [place] [address] 04 Feb, 2012 [facility] [place] [facility] [address] [id number] [place] [address] 28 Jan, 2012 [facility] [place] [facility] [address] [id number] [place] [address] 28 Jan, 2012 [facility] [place] [facility] [address] [id number] [place] [address] 15 Jan, 2012 [facility] [place] [facility] [address] [id number] [place] [address] 15 Jan, 2012 [facility] [place] [facility] [address] [id number] [place] [address] 14 Jan, 2012 [facility] [place] [facility] [address] [id number] [place] [address] 13 Jan, 2012 [facility] [place] [facility] [address] [id number] [place] [address] 13 Jan, 2012 [facility] [place] [facility] [address] [id number] [place] [address] 12 Jan, 2012 [facility] [place] [facility] [address] [id number] [place] [address] 12 Jan, 2012 [facility] [place] [facility] [address] [id number] [place] [address] 06 Jan, 2012 [facility] [place] [facility] [address] [id number], [place] [address] Jan, [facility] [place] [facility] [address] [id number] [place] [address] Dec, [facility] [place] [facility] [address] [id number] [place] [address] Dec, [facility] [place] [facility] [address] [id number] [place] [address] Dec, [facility] [place] [facility] [address] [id number] [place] [address] Dec, [facility] [place] [facility] [address] [id number] [place] [address] Dec, [facility] [place] [facility] [address] [id number] [place] [address] Dec, [facility] [place] [facility] [address] [id number] [place] [address] Dec, [facility] [place] [facility] [address] [id number] [place] [address] Dec, [facility] [place] [facility] [address] [id number] [place] [address] Dec, [facility] [place] [facility] [address] [id number] [place] [address] Dec, [facility] [place] [facility] [address] [id number], [place] [address] Dec, [facility] [place] [facility] [address] [id number], [place] [address] Dec, [facility] [place] [facility] [address] [id number] [place] [address] Nov, [facility] [place] [facility] [address] [facility] [id number], [place] [address] Oct, [facility] [place] [facility] [address] [id number] [place] [address] Oct, [facility] [place] [facility] [address], [place] [address] Oct, [facility] [address], [place] [address] Oct, [facility] [address] [id number], [place] [address] Sep, [facility] [address], [place] [address] Sep, [facility] [address] [facility] [id number], [place] [address] Sep, [facility] [id number] [place] [address] Sep, [facility] [address], [place] [address] Aug, [facility] [address], [place] [address] Aug, [facility] [address], [place] [address] Aug, [facility] [address], [place] [address] Aug, [facility] [address], [place] [address] Aug, [facility] [address], [place] [address] July, [facility] [address] [id number], [place] [address] July, [facility] [address], [place] [address] July, [facility] [address] [place] [address] Dec, IMMUNIZATIONS No Known Immunizations SOCIAL HISTORY Never Assessed REASON FOR VISIT RAJWINDER Saba PLAN OF CARE VITAL SIGNS MEDICATIONS Unknown [...]
--- OUTSIDE RECORDS SUMMARY | 2018-10-24 12:33 | XMS REPORT ---
Author Author DIANN DAMON [employer] Address Unknown Phone Unavailable Care Team Providers Care New Accounts Representative Name Role Phone DIANN DAMON CP Unavailable Allergies, Adverse Reactions, Alerts Substance Reaction Event Type Sulfamethoxazole-Trimethoprim Info Not Available Drug Allergy Prednisone Info Not Available Drug Allergy Nitrofurantoin Info Not Available Drug Allergy Cephalexin Info Not Available Drug Allergy Amitiza Info Not Available Drug Allergy Tramadol Info Not Available Drug Allergy Artane unknown Drug Allergy Benzodiazepines Failed UDS Non Drug Allergy Hydrocodone Failed UDS Non Drug Allergy Ibuprofen 400 Mg Tablet Info Not Available Non Drug Allergy Problems Problem Type Condition ICD-9 Code Onset Dates Condition Status Problem Major depressive disorder, recurrent episode, moderate 296.32 Active Problem Chronic airway obstruction, not elsewhere classified 496 Active Problem 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 Problem Fibromyalgia 729.1 Active Assessment Anxiety 300.00 Active Problem Other chronic allergic conjunctivitis 372.14 Active Assessment Tingling in extremities 782.0 Active Problem Interstitial cystitis 595.1 Active Problem Sacroiliitis, not elsewhere classified 720.2 Active Problem Irritable bowel syndrome 564.1 Active Problem Lumbago 724.2 Active Problem Generalized osteoarthrosis, unspecified site 715.00 Active Problem Anxiety state, unspecified 300.00 Active Problem Nondependent tobacco use disorder 305.1 Active Assessment Esophageal reflux 530.81 Active Problem Benign neoplasm of adrenal gland 227.0 Active Problem Unspecified hemorrhoids without mention of complication 455.6 Active Problem Esophageal reflux 530.81 Active Problem Sciatica 724.3 Active Problem 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 Active Problem Hematuria, unspecified 599.70 Active Problem Migraine, unspecified without mention of intractable migraine without mention of status migrainosus 346.90 Active Medications Medication Code System Code Instructions Start Date End Date Status Dosage Tegretol [facility] [address]-93 200 mg July 21, 2013 take 1 tablet (200 mg) by oral route every 12 hours Pristiq [facility] [address]-58 100 MG Orally Once a day 1 tablet Symbicort [facility] [address]-76 160-4.5 MCG/ACT Inhalation Twice a day 2 puffs Estradiol [facility] [address]-42 1 mg Mar 29, 2014 1 tablet by Oral route 1 time per day Lyrica [facility] [address]-77 75 MG Orally 3 times a day October 11, 2014 1 capsule Carafate [facility] [address]-72 1 GM Orally Twice a day Nov 29, 2014 Feb 27, 2015 1 tablet on an empty stomach Albuterol Sulfate [facility] [address]-95 2.5 mg /3 mL (0.083 %) Mar 23, 2014 1 Each by Inhalation route every 6 hours for cough and wheeze PRN for wheezing or cough Naprosyn [facility] [address]-57 500 mg Nov 15, 2013 1 tablet by Oral route 2 times per day take with omprazole trazodone [facility] 0 50 mg Feb 22, 2014 take 1-2 tablet by Oral route 1 time per day at Omeprazole [facility] [address]-61 40 MG Orally 2 times a day 2013 take 1 capsule before a meal cyclobenzaprine [facility] [address]-77 10 mg May 17, 2014 1 tablet 3 times per day PRN muscle spasm/pain Zantac [facility] [address]-07 150 MG Orally 2 times a day prn for heart burn August 21, 2013 1-2 tablet Cetirizine HCl [facility] [address]-05 10 MG Orally Once a day October 11, 2014 May 09, 2015 1 tablet as needed Linzess [facility] [address]-44 290 MCG Orally Once a day greater than 30 minutes before first meal October 11, 2014 May 09, 2015 1 capsule Albuterol Sulfate [facility] [address]-75 90 mcg/actuation July 07, 2013 2 puffs by Inhalation route every 4-6 hours as needed PRN cough or wheezing Procedures Procedure Coding System Code Date Office Visit, Est Pt., Level 3 CPT-4 10788 Nov 29, 2014 Vital Signs Date/Time: Nov 29, 2014 Temperature 98.4 F Weight 166.9 lbs Height 58 in BMI 34.88 Index Blood Pressure Diastolic 66 mmHg Blood Pressure Systolic 118 mmHg Cardiac Monitoring Heart Rate 90 bpm Results No Known Results Summary Purpose [employer] Submission
--- OUTSIDE RECORDS SUMMARY | 2018-10-24 12:33 | XMS REPORT ---
Author Author NELSON DIANN [facility] Address [address] [place] [address] Care Team Providers Care Optometric Technician Name Role Phone PRADEEP DAMONHANY Unavailable PROBLEMS Type Condition ICD9-CM Code KVV91-DN Code Onset Dates Condition Status SNOMED Code Problem Fibromyalgia M79.7 Active 92097096 Problem Tinnitus of both ears H93.13 Active 0396442742725 Problem Irritable bowel syndrome without diarrhea K58.9 Active 35662077 Problem COPD exacerbation J44.1 Active 363306149 Problem Menopausal symptoms N95.1 Active 27889168 Problem On antiepileptic therapy Z79.899 Active 393315079 Problem Chronic obstructive pulmonary disease, unspecified COPD type J44.9 Active 85882876 Problem Irritable bowel syndrome with diarrhea K58.0 Active 305515072 Problem Vitamin D deficiency E55.9 Active 08380986 Problem MRSA (methicillin resistant staph aureus) culture positive Z22.322 Active 632987742 Problem Epilepsy G40.909 Active 02659610 Problem Generalized anxiety disorder F41.1 Active 738867316 Problem Interstitial cystitis N30.10 Active 080497964 Problem Esophageal reflux K21.9 Active 824584752 Problem Major depressive disorder F32.9 Active 846559079 Problem Lumbago M54.5 Active 585761522 ALLERGIES No Information ENCOUNTERS Encounter Location Date Diagnosis [facility] [address] [facility] [id number] [address] Sep, [facility] [address] [facility] [id number] [address] Sep, [facility] [address] [facility] [id number] [place] [id number] Aug, Dental examination Z01.20 [facility] [address] [facility] [id number] [place] [address] Aug, Abscess of axilla, left L02.412 [facility] [id number] [place] [address] Aug, Esophageal reflux K21.9 [facility] [id number] [place] [address] Aug, [place] [id number] [place] [address] Aug, Esophageal reflux K21.9 ; Fluid level behind tympanic membrane of right ear H65.91 ; Fibromyalgia M79.7 and Lumbago M54.5 [place] [facility] [id number] [place] [address] Aug, Esophageal reflux K21.9 [place] [facility] [id number] [place] [address] July, [place] [id number] [place] [address] July, [place] [id number] [place] [address] July, Chronic obstructive pulmonary disease, unspecified COPD type J44.9 [place] [id number] [place] [address] July, [place] [id number] [place] [address] July, [place] [id number] [place] [address] July, Interstitial cystitis N30.10 ; Fibromyalgia M79.7 [...] Dysuria R30.0 and Generalized anxiety disorder F41.1 [facility] [id number] [place] [address] Jun, [facility] [id number] [place] [address] Jun, Chronic obstructive pulmonary disease, unspecified COPD type J44.9 ; COPD exacerbation J44.1 and Sore throat J02.9 [place] [address] [address] Jun, Fibromyalgia M79.7 [place] [address] [address] Jun, Fibromyalgia M79.7 [place] [address] [address] May, [place] [address] [address] May, [place] [address] [address] May, Fibromyalgia M79.7 [place] [id number] [place] [address] Mar, [place] [id number] [place] [address] Mar, Epilepsy G40.909 ; Lumbago M54.5 ; Esophageal reflux K21.9 ; Fibromyalgia M79.7 ; Chronic obstructive pulmonary disease, unspecified COPD type J44.9 ; Vitamin D deficiency E55.9 ; Fluid level behind tympanic membrane of right ear H65.91 ; Irritable bowel syndrome with diarrhea K58.0 ; Hematochezia K92.1 and Generalized anxiety disorder F41.1 [place] [id number] [place] [address] Mar, [place] [id number] [place] [address] Mar, [place] [id number] [place] [address] Mar, Vitamin D deficiency E55.9 [facility] [id number] [place] [address] Feb, [facility] [id number] [place] [address] Feb, [facility] [id number] [place] [address] Jan, Fibromyalgia M79.7 [facility] [id number] [place] [address] Jan, [facility] [id number] [place] [address] Jan, [facility] [id number] [place] [address] Jan, Vitamin D deficiency E55.9 [facility] [id number] [place] [address] Dec, [facility] [id number] [place] [address] Dec, [facility] [id number] [place] [address] Dec, Generalized anxiety disorder F41.1 [facility] [id number] [place] [address] Dec, Dysuria R30.0 ; Acute bilateral low back pain without sciatica M54.5 and Encounter for immunization Z23 [facility] [id number] [place] [address] Oct, [facility] [id number] [place] [address] Oct, Fibromyalgia M79.7 [facility] [id number] [place] [address] Sep, Dysuria R30.0 and Acute bronchitis, unspecified organism J20.9 [facility] [id number] [place] [address] Sep, [facility] [id number] [place] [address] Sep, Rectal prolapse K62.3 [place] [id number] [place] [address] Sep, Chronic obstructive pulmonary disease, unspecified COPD type J44.9 [facility] [address] [id number] Aug, [place] [address] [id number] Aug, [place] [id number] [place] [address] Aug, Light headedness R42 ; On antiepileptic therapy Z79.899 ; Vitamin D deficiency E55.9 ; Screening for lipid disorders Z13.220 ; Dysuria R30.0 and Hemorrhoids, unspecified hemorrhoid type K64.9 [place] [id number] [place] [address] Aug, Internal prolapsed hemorrhoids K64.8 [place] [id number] [place] [address] July, [place] [id number] [place] [address] May, [place] [id number] [place] [address] May, Fever and chills R50.9 and Influenza B J10.1 [place] [id number] [place] [address] Apr, [facility] [id number] [place] [address] Apr, Fibromyalgia M79.7 and Generalized anxiety disorder F41.1 [facility] [id number] [place] [address] 19 Mar, 2016 Esophageal reflux K21.9 ; Generalized anxiety disorder F41.1 and Epilepsy G40.909 [facility] [id number] [place] [address] 13 Mar, 2016 Epilepsy G40.909 ; Esophageal [...] disorders Z13.220 and On antiepileptic therapy Z79.899 [place] [id number] [place] [address] Feb, [place] [address] [address] Feb, [facility] [address] [address] Feb, Dysuria R30.0 and Plantar fasciitis of right foot M72.2 [facility] [id number] [place] [address] Feb, [place] [id number] [place] [address] Feb, [facility] [id number] [place] [address] Jan, [place] [address] [address] Jan, [facility] [id number] [place] [address] Dec, [facility] [address] [address] Dec, [facility] [address] [address] Dec, [facility] [id number] [place] [address] Nov, [facility] [id number] [place] [address] Sep, [facility] [id number] [place] [address] Aug, Shortness of breath R06.02 and Acute suppurative otitis media of right ear without spontaneous rupture of tympanic membrane, recurrence not specified H66.001 [place] [id number] [place] [address] Aug, Internal prolapsed hemorrhoids K64.8 [place] [id number] [place] [address] Jun, 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 [place] [id number] [place] [address] May, Fibromyalgia M79.7 ; Interstitial cystitis N30.10 ; Intractable migraine without aura and without status migrainosus G43.019 ; Low vitamin D level E55.9 and Ringing in right ear H93.11 [place] [address] [address] May, [place] [id number] [place] [address] May, Low vitamin D level E55.9 [place] [id number] [place] [address] Apr, [facility] [id number] [place] [address] Mar, [facility] [id number] [place] [address] 07 [place], 2016 Acute suppurative otitis media of right ear without spontaneous rupture of tympanic membrane, recurrence not specified H66.001 ; Encounter for immunization Z23 ; Asthma with acute exacerbation, unspecified asthma severity J45.901 ; Memory problem R41.3 ; Acute pain of right knee M25.561 ; Chronic fatigue R53.82 and Excessive urinary volume R35.8 [facility] [id number] [place] [address] Feb, [facility] [address] [address] Feb, [facility] [address] [address] Jan, [facility] [address] [address] Nov, Esophageal reflux 530.81 ; Anxiety 300.00 and Tingling in extremities 782.0 [facility] [address] [address] Oct, [facility] [address] [address] Oct, [place] [address] [address] Oct, [facility] [id number] [place] [address] Oct, [facility] [id number] [place] [address] Oct, [facility] [address] [address] Sep, Other chronic allergic conjunctivitis 372.14 ; Irritable bowel syndrome 564.1 ; 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 [id number] [address] Aug, [facility] [place] [facility] [address] [facility] [id number] [place] [address] July, Vomiting 787.03 [facility] [address] [id number] [place] [id number] July, Dental examination V72.2 [facility] [place] [facility] [address] [id number] [place] [address] Jun, [facility] [place] [facility] [address] [facility] [id number] [address] Jun, [facility] [place] [facility] [id number] [place] [address] May, [facility] [place] [facility] [address] [facility] [id number] [place] [address] May, [facility] [place] [facility] [address] [facility] [id number] [place] [address] May, [facility] [place] [facility] [address] [facility] [id number] [place] [address] May, [facility] [place] [facility] [address] [facility] [id number] [place] [address] May, [facility] [place] [facility] [address] [facility] [id number] [place] [address] 05 May, 2014 [facility] [place] [facility] [address] [facility] [id number] [place] [address] May, [facility] [place] [facility] [address] [facility] [id number] [place] [address] May, [facility] [place] [facility] [address] [facility] [id number] [place] [address] May, [facility] [place] [facility] [address] [id number] [place] [address] Apr, 2014 [facility] [place] [facility] [address] [id number] [place] [address] Apr, 2014 [facility] [place] [facility] [address] [id number] [place] [address] Apr, 2014 [facility] [place] [facility] [address] [id number] [place] [address] Apr, 2014 [facility] [place] [facility] [address] [id number] [place] [address] Apr, [facility] [place] [facility] [address] [id number] [place] [address] Apr, [facility] [place] [facility] [address] [id number] [place] [address] Mar, [facility] [place] [facility] [address] [id number] [place] [address] Mar, [facility] [place] [facility] [address] [id number] [place] [address] Mar, [facility] [place] [facility] [address] [id number] [place] [address] Mar, [facility] [place] [facility] [address] [id number] [place] [address] Mar, [facility] [place] [facility] [address] [id number] [place] [address] Mar, [facility] [place] [facility] [address] [id number] [place] [address] Mar, [facility] [place] [facility] [address] [id number] [place] [address] Mar, [facility] [place] [facility] [address] [id number] [place] [address] Mar, [facility] [place] [facility] [address] [id number] [place] [address] Mar, [facility] [address] [id number] [place] [address] Mar, [facility] [place] [facility] [address] [id number] [place] [address] Mar, [facility] [place] [facility] [address] [id number] [place] [address] Mar, [facility] [place] [facility] [address] [id number] [place] [address] Mar, [facility] [place] [facility] [address] [id number] [place] [address] Mar, [facility] [place] [facility] [address] [id number] [place] [address] Mar, [facility] [place] [facility] [address] [id number] [place] [address] Mar, [facility] [place] [facility] [address] [id number] [place] [address] Mar, [facility] [place] [facility] [address] [id number] [place] [address] Mar, [facility] [place] [facility] [address] [id number] [place] [address] Feb, [facility] [place] [facility] [address] [id number] [place] [address] Feb, [facility] [place] [facility] [address] [id number] [place] [address] Feb, [facility] [place] [facility] [address] [id number] [place] [address] Feb, [facility] [place] [facility] [address] [id number] [place] [address] Jan, [facility] [place] [facility] [address] [id number] [place] [address] Jan, [facility] [place] [facility] [address] [id number] [place] [address] 14 Jan, 2014 [facility] [place] [facility] [address] [id number] [place] [address] 14 Jan, 2014 [facility] [place] [facility] [address] [id number] [place] [address] 14 Jan, 2014 [facility] [place] [facility] [address] [id number] [place] [address] 14 Jan, 2014 [facility] [place] [facility] [address] [id number] [place] [address] Jan, [facility] [place] [facility] [address] [id number] [place] [address] Jan, [facility] [place] [facility] [address] [id number] [place] [address] Dec, [facility] [place] [facility] [address] [id number] [place] [address] Dec, [facility] [place] [facility] [address] [id number] [place] [address] Dec, [facility] [place] [facility] [address] [id number] [place] [address] 17 Dec, 2013 [facility] [place] [facility] [address] [facility] [id number] [place] [address] 22 Nov, 2013 [facility] [place] [facility] [address] [id number] [place] [address] 22 Sep, 2013 [facility] [place] [facility] [address] [id number] [place] [address] 08 Sep, 2013 [facility] [place] [facility] [address] [id number] [place] [address] 08 Sep, 2013 [facility] [place] [facility] [address] [facility] [id number] [place] [address] 05 Sep, 2013 [facility] [place] [facility] [address] [facility] [id number] [place] [address] 05 Sep, 2013 [facility] [place] [facility] [address] [id number] [place] [address] 04 Nov, 2013 [facility] [place] [facility] [address] [id number] [place] [address] 04 Nov, 2013 [facility] [place] [facility] [address] [id number] [place] [address] 03 Nov, 2013 [facility] [place] [facility] [address] [id number] [place] [address] 03 Nov, 2013 [facility] [place] [facility] [address] [id number] [place] [address] Oct, [facility] [place] [facility] [address] [id number] [place] [address] Oct, [facility] [place] [facility] [address] [id number] [place] [address] Sep, [facility] [place] [facility] [address] [id number] [place] [address] Sep, [facility] [place] [facility] [address] [id number] [place] [address] Sep, [facility] [place] [facility] [address] [id number] [place] [address] Sep, [facility] [place] [facility] [address] [id number] [place] [address] Sep, [facility] [place] [facility] [address] [id number] [place] [address] Sep, [facility] [place] [facility] [address] [id number] [place] [address] Aug, [facility] [place] [facility] [address] [id number] [place] [address] Aug, [facility] [place] [facility] [address] [id number] [place] [address] Aug, [facility] [place] [facility] [address] [id number] [place] [address] Aug, [facility] [place] [facility] [address] [id number] [place] [address] Aug, [facility] [place] [facility] [address] [id number] [place] [address] Aug, [facility] [place] [facility] [address] [id number] [place] [address] July, [facility] [place] [facility] [address] [id number] [place] [address] July, [facility] [place] [facility] [address] [id number] [place] [address] July, [facility] [place] [facility] [address] [id number] [place] [address] July, [facility] [place] [facility] [address] [id number] [place] [address] July, [facility] [place] [facility] [address] [id number] [place] [address] July, [facility] [place] [facility] [address] [id number] [place] [address] Jun, [facility] [place] [facility] [address] [id number] [place] [address] Jun, [facility] [place] [facility] [address] [id number] [place] [address] Jun, [facility] [place] [facility] [address] [id number] [address] Jun, [facility] [place] [facility] [address] [id number] [place] [address] May, [facility] [place] [facility] [address] [id number] [place] [address] May, [facility] [place] [facility] [address] [id number] [place] [address] Apr, [facility] [place] [facility] [address] [id number] [place] [address] 18 Apr, 2013 [facility] [address] [id number] [place] [address] 07 Apr, 2013 [facility] [place] [facility] [address] [id number] [place] [address] 07 Apr, 2013 [facility] [address] [id number] [place] [address] Mar, [facility] [place] [facility] [address] [id number] [place] [address] Mar, [facility] [address] [id number] [place] [address] Mar, [facility] [address] [id number] [place] [address] Mar, [facility] [address] [id number] [place] [address] Mar, [facility] [address] [id number] [place] [address] Mar, [facility] [address] [id number] [place] [address] Feb, [facility] [address] [id number] [place] [address] Feb, [facility] [place] [facility] [address] [id number] [place] [address] Jan, [facility] [place] [facility] [address] [id number] [place] [address] Jan, [facility] [place] [facility] [address] [id number] [place] [address] Jan, [facility] [place] [facility] [address] [id number] [place] [address] Jan, [facility] [place] [facility] [address] [id number] [place] [address] Nov, [facility] [address] [id number] [place] [address] Nov, [facility] [place] [facility] [address] [id number] [place] [address] Oct, [facility] [place] [facility] [address] [id number] [place] [address] Oct, [facility] [place] [facility] [address] [id number] [place] [address] Sep, [facility] [address] [id number] [place] [address] Sep, [facility] [place] [facility] [address] [id number] [place] [address] Sep, [facility] [place] [facility] [address] [id number] [place] [address] Aug, [facility] [place] [facility] [address] [id number] [place] [address] Aug, [facility] [place] [facility] [address] [id number] [place] [address] Aug, [facility] [place] [facility] [address] [id number] [place] [address] Aug, [facility] [place] [facility] [address] [id number] [place] [address] July, [facility] [place] [facility] [address] [id number] [place] [address] July, [facility] [place] [facility] [address] [id number] [place] [address] July, [facility] [place] [facility] [address] [id number] [place] [address] July, [facility] [place] [facility] [address] [id number] [place] [address] Jun, [facility] [place] [facility] [address] [id number] [place] [address] Jun, [facility] [address] [id number] [place] [address] Jun, [facility] [address] [id number] [place] [address] May, [facility] [address] [id number] [place] [address] May, [facility] [address] [id number] [place] [address] Apr, [facility] [address] [id number] [place] [address] Apr, [facility] [address] [id number] [place] [address] Apr, [facility] [address] [id number] [place] [address] Apr, [facility] [address] [id number] [place] [address] Mar, [facility] [address] [id number] [place] [address] Mar, [facility] [address] [id number] [place] [address] Mar, [facility] [address] [id number] [place] [address] Mar, [facility] [address] [id number] [place] [address] Feb, [facility] [address] [id number] [place] [address] Feb, [facility] [place] [facility] [address] [id number] [place] [address] Feb, [facility] [address] [id number] [place] [address] Feb, [facility] [place] [facility] [address] [id number] [place] [address] 10 Feb, 2012 [facility] [place] [facility] [address] [id number] [place] [address] Feb, [facility] [place] [facility] [address] [id number] [place] [address] Feb, [facility] [place] [facility] [address] [id number] [place] [address] Feb, [facility] [place] [facility] [address] [id number] [place] [address] Jan, [facility] [place] [facility] [address] [id number] [place] [address] 28 Jan, 2012 [facility] [place] [facility] [address] [id number] [place] [address] 15 Jan, 2012 [facility] [place] [facility] [address] [id number] [place] [address] 15 Jan, 2012 [facility] [place] [facility] [address] [id number] [place] [address] 14 Jan, 2012 [facility] [place] [facility] [address] [id number] [place] [address] 13 Jan, 2012 [facility] [place] [facility] [address] [id number] [place] [address] 13 Jan, 2012 [facility] [place] [facility] [address] [id number] [place] [address] Jan, [facility] [place] [facility] [address] [id number] [place] [address] 12 Jan, 2012 [facility] [place] [facility] [address] [id number] [place] [address] 06 Jan, 2012 [facility] [place] [facility] [address] [id number] [place] [address] 06 Jan, 2012 [facility] [place] [facility] [address] [id number] [address] Dec, [facility] [place] [facility] [address] [id number] [place] [address] Dec, [facility] [place] [facility] [address] [id number] [place] [address] Dec, [facility] [place] [facility] [address] [id number] [place] [address] Dec, [facility] [place] [facility] [address] [id number] [place] [address] Dec, [facility] [place] [facility] [address] [id number] [place] [address] Dec, [facility] [place] [facility] [address] [id number] [place] [address] Dec, [facility] [place] [facility] [address] [id number] [place] [address] Dec, [facility] [place] [facility] [address] [id number] [place] [address] Dec, [facility] [place] [facility] [address] [id number] [place] [address] Dec, [facility] [place] [facility] [address] [id number] [place] [address] Dec, [facility] [place] [facility] [address] [id number] [address] Dec, [facility] [place] [facility] [address] [id number] [address] Nov, [facility] [place] [facility] [address] [id number] [place] [address] Oct, [facility] [place] [facility] [address] [id number] [place] [address] Oct, [facility] [place] [facility] [address] [id number] [place] [address] Oct, [facility] [place] [facility] [id number] [address] Oct, [facility] [id number] [address] Sep, [facility] [id number] [address] Sep, [facility] [id number] [address] Sep, [facility] [id number] [address] Sep, [facility] [id number] [place] [address] Aug, [facility] [id number] [place] [address] Aug, [facility] [id number] [place] [address] Aug, [facility] [id number] [address] Aug, [facility] [id number] [place] [address] Aug, [facility] [id number] [address] July, [facility] [id number] [address] July, [facility] [id number] [address] July, [facility] [id number] [address] Dec, IMMUNIZATIONS No Known Immunizations SOCIAL HISTORY [...]
--- OUTSIDE RECORDS SUMMARY | 2018-10-24 12:34 | XMS REPORT ---
Author Author DIANN DAMON [facility] Address [address] [place] [address] Care Team Providers Care Clinical Program Manager Name Role Phone DIANN DAMON Unavailable PROBLEMS Type Condition ICD9-CM Code LCB29-DC Code Onset Dates Condition Status SNOMED Code Problem Major depressive disorder F32.9 Active 907218715 Problem Fibromyalgia M79.7 Active 68798854 Problem Lumbago M54.5 Active 195418169 Problem Epilepsy G40.909 Active 96236575 Problem Esophageal reflux K21.9 Active 842558465 Problem Generalized anxiety disorder F41.1 Active 382957300 Problem Interstitial cystitis N30.10 Active 241012177 Problem Irritable bowel syndrome with diarrhea K58.0 Active 200855321 Problem Chronic obstructive pulmonary disease, unspecified COPD type J44.9 Active 89797245 Problem On antiepileptic therapy Z79.899 Active 630825297 Problem Irritable bowel syndrome without diarrhea K58.9 Active 60726947 Problem Tinnitus of both ears H93.13 Active 3212341853783 Problem Vitamin D deficiency E55.9 Active 03669997 ALLERGIES No Information ENCOUNTERS Encounter Location Date Diagnosis [place] [id number] [address] Mar, [facility] [id number] [place] [address] Mar, Epilepsy G40.909 ; Lumbago M54.5 ; Esophageal reflux K21.9 ; Fibromyalgia M79.7 ; Chronic obstructive pulmonary disease, unspecified COPD type J44.9 ; Vitamin D deficiency E55.9 ; Fluid level behind tympanic membrane of right ear H65.91 ; Irritable bowel syndrome with diarrhea K58.0 ; Hematochezia K92.1 and Generalized anxiety disorder F41.1 [facility] [address] [place] [id number] [place] [address] Mar, [facility] [id number] [place] [address] Mar, [facility] [id number] [place] [address] Mar, Vitamin D deficiency E55.9 [facility] [id number] [place] [address] Feb, [facility] [id number] [place] [address] Feb, [facility] [id number] [place] [address] Jan, Fibromyalgia M79.7 [facility] [id number] [place] [address] Jan, [facility] [address] [address] Jan, [facility] [id number] [place] [address] Jan, Vitamin D deficiency E55.9 [facility] [id number] [place] [address] Dec, [facility] [id number] [place] [address] Dec, [facility] [id number] [place] [address] Dec, Generalized anxiety disorder F41.1 [facility] [id number] [place] [address] Dec, Dysuria R30.0 ; Acute bilateral low back pain without sciatica M54.5 and Encounter for immunization Z23 [facility] [id number] [place] [address] Oct, [facility] [id number] [place] [address] Oct, Fibromyalgia M79.7 [facility] [id number] [place] [address] Sep, Dysuria R30.0 and Acute bronchitis, unspecified organism J20.9 [facility] [address] [place] [address] [id number] [place] [address] Sep, [place] [address] [address] Sep, Rectal prolapse K62.3 [place] [address] [place] [address] [id number] [place] [address] Sep, Chronic obstructive pulmonary disease, unspecified COPD type J44.9 [place] [address] [id number] Aug, [place] [address] [id number] Aug, [place] [address] [place] [id number] [place] [address] Aug, Light headedness R42 ; On antiepileptic therapy Z79.899 ; Vitamin D deficiency E55.9 ; Screening for lipid disorders Z13.220 ; Dysuria R30.0 and Hemorrhoids, unspecified hemorrhoid type K64.9 [place] [address] [place] [address] [id number] [place] [address] Aug, Internal prolapsed hemorrhoids K64.8 [place] [address] [place] [id number] [place] [address] July, [place] [address] [place] [id number] [place] [address] May, [place] [address] [place] [address] [id number] [place] [address] May, Fever and chills R50.9 and Influenza B J10.1 [place] [address] [place] [address] [id number] [place] [address] Apr, [facility] [id number] [place] [address] Apr, Fibromyalgia M79.7 and Generalized anxiety disorder F41.1 [facility] [id number] [place] [address] 19 Mar, 2016 Esophageal reflux K21.9 ; Generalized anxiety disorder F41.1 and Epilepsy G40.909 [facility] [id number] [place] [address] 13 Mar, 2016 Epilepsy G40.909 ; Esophageal [...] disorders Z13.220 and On antiepileptic therapy Z79.899 [facility] [id number] [place] [address] Feb, [facility] [address] [address] Feb, [facility] [id number] [place] [address] Feb, Dysuria R30.0 and Plantar fasciitis of right foot M72.2 [facility] [id number] [place] [address] Feb, [facility] [id number] [place] [address] Feb, [facility] [address] [address] Jan, [facility] [address] [address] Jan, [facility] [address] [place] [address] Dec, [facility] [address] [place] [id number] [place] [address] Dec, [facility] [address] [place] [id number] [place] [address] Dec, [facility] [id number] [place] [address] Nov, [facility] [id number] [place] [address] Sep, [facility] [id number] [place] [address] Aug, Shortness of breath R06.02 and Acute suppurative otitis media of right ear without spontaneous rupture of tympanic membrane, recurrence not specified H66.001 [place] [address] [address] Aug, Internal prolapsed hemorrhoids K64.8 [place] [address] [place] [id number] [place] [address] Jun, 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 [place] [address] [place] [id number] [place] [address] May, Fibromyalgia M79.7 ; Interstitial cystitis N30.10 ; Intractable migraine without aura and without status migrainosus G43.019 ; Low vitamin D level E55.9 and Ringing in right ear H93.11 [facility] [id number] [place] [address] May, [facility] [address] [address] May, Low vitamin D level E55.9 [facility] [address] [place] [id number] [place] [address] Apr, [facility] [address] [place] [id number] [place] [address] Mar, [facility] [id number] [place] [address] Mar, Acute suppurative otitis media of right ear without spontaneous rupture of tympanic membrane, recurrence not specified H66.001 ; Encounter for immunization Z23 ; Asthma with acute exacerbation, unspecified asthma severity J45.901 ; Memory problem R41.3 ; Acute pain of right knee M25.561 ; Chronic fatigue R53.82 and Excessive urinary volume R35.8 [facility] [address] [address] Feb, [place] [address] [address] Feb, [place] [address] [address] Jan, [facility] [address] [address] Nov, Esophageal reflux 530.81 ; Anxiety 300.00 and Tingling in extremities 782.0 [place] [address] [place] [id number] [place] [address] Oct, [facility] [address] [place] [id number] [place] [address] Oct, [facility] [address] [place] [id number] [place] [address] Oct, [facility] [address] [place] [address] [id number] [place] [address] Oct, [facility] [address] [address] Oct, [facility] [address] [address] Sep, Other chronic allergic conjunctivitis 372.14 ; Irritable bowel syndrome 564.1 ; 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 ; Fibromyalgia 729.1 ; Extremity pain 729.5 and Neck pain 723.1 [facility] [address] [facility] [id number] [address] Sep, [facility] [address] [address] Aug, [facility] [address] [address] Aug, [facility] [id number] [place] [address] July, Vomiting 787.03 [facility] [address] [id number] [id number] July, Dental examination V72.2 [facility] [id number] [address] Jun, [facility] [id number] [place] [address] Jun, [facility] [address] [address] May, [facility] [address] [place] [id number] [place] [address] May, [facility] [address] [address] May, [facility] [address] [address] May, [facility] [address] [address] May, [facility] [address] [address] May, [facility] [address] [address] May, [facility] [address] [address] May, [facility] [place] [facility] [address] [id number] [place] [address] May, [facility] [place] [facility] [address] [id number] [place] [address] Apr, [facility] [place] [facility] [address] [id number] [place] [address] Apr, [facility] [place] [facility] [address] [id number] [place] [address] Apr, [facility] [place] [facility] [address] [id number] [place] [address] Apr, [facility] [place] [facility] [address] [id number] [place] [address] Apr, [facility] [place] [facility] [address] [facility] [id number] [place] [address] Apr, [facility] [place] [facility] [address] [id number] [place] [address] Mar, [facility] [place] [facility] [address] [id number] [place] [address] Mar, [facility] [place] [facility] [address] [facility] [id number] [place] [address] Mar, [facility] [place] [facility] [address] [id number] [address] Mar, [facility] [place] [facility] [address] [id number] [address] Mar, [facility] [place] [facility] [address] [id number] [place] [address] Mar, [facility] [place] [facility] [address] [id number] [place] [address] Mar, [facility] [place] [facility] [address] [id number] [place] [address] Mar, [facility] [place] [facility] [address] [id number] [place] [address] Mar, [facility] [place] [facility] [address] [id number] [place] [address] Mar, [facility] [place] [facility] [address] [id number] [place] [address] Mar, [facility] [place] [facility] [address] [id number] [place] [address] Mar, [facility] [place] [facility] [address] [id number] [place] [address] Mar, [facility] [place] [facility] [address] [id number] [place] [address] Mar, [facility] [place] [facility] [address] [id number] [place] [address] Mar, [facility] [place] [facility] [address] [id number] [place] [address] Mar, [facility] [place] [facility] [address] [id number] [place] [address] Mar, [facility] [place] [facility] [address] [id number] [place] [address] Mar, [facility] [place] [facility] [address] [id number] [place] [address] Mar, [facility] [place] [facility] [address] [id number] [place] [address] Feb, [facility] [place] [facility] [address] [id number] [place] [address] Feb, [facility] [place] [facility] [address] [id number] [place] [address] Feb, [facility] [place] [facility] [address] [id number] [place] [address] Feb, [facility] [place] [facility] [address] [id number] [place] [address] Jan, [facility] [place] [facility] [address] [id number] [place] [address] Jan, [facility] [place] [facility] [address] [id number] [place] [address] Jan, [facility] [place] [facility] [address] [id number] [place] [address] Jan, [facility] [place] [facility] [address] [id number] [place] [address] Jan, [facility] [place] [facility] [address] [id number] [place] [address] Jan, [facility] [place] [facility] [address] [id number] [place] [address] Jan, [facility] [place] [facility] [address] [id number] [place] [address] Jan, [facility] [place] [facility] [address] [id number] [place] [address] Dec, [facility] [place] [facility] [address] [id number] [place] [address] Dec, [facility] [place] [facility] [address] [id number] [place] [address] Dec, [facility] [place] [facility] [address] [id number] [place] [address] Dec, [facility] [place] [facility] [address] [id number] [place] [address] Nov, [facility] [place] [facility] [address] [id number] [place] [address] 22 Nov, 2013 [facility] [place] [facility] [address] [id number] [place] [address] 08 Nov, 2013 [facility] [place] [facility] [address] [id number] [place] [address] 08 Nov, 2013 [facility] [place] [facility] [address] [id number] [place] [address] 05 Nov, 2013 [facility] [place] [facility] [address] [id number] [place] [address] 05 Nov, 2013 [facility] [place] [facility] [address] [id number] [place] [address] 04 Nov, 2013 [facility] [place] [facility] [address] [id number] [place] [address] 04 Nov, 2013 [facility] [place] [facility] [address] [id number] [place] [address] Nov, 2013 [facility] [place] [facility] [address] [id number] [place] [address] Nov, [facility] [place] [facility] [address] [id number] [place] [address] Oct, [facility] [place] [facility] [address] [id number] [place] [address] Oct, [facility] [place] [facility] [address] [id number] [place] [address] Sep, [facility] [place] [facility] [address] [id number] [place] [address] Sep, [facility] [place] [facility] [address] [id number] [place] [address] Sep, [facility] [place] [facility] [address] [id number] [place] [address] Sep, [facility] [place] [facility] [address] [id number] [place] [address] Sep, [facility] [place] [facility] [address] [id number] [place] [address] Sep, [facility] [place] [facility] [address] [id number] [place] [address] Aug, [facility] [place] [facility] [address] [id number] [place] [address] Aug, [facility] [place] [facility] [address] [id number] [place] [address] Aug, [facility] [address] [id number] [place] [address] Aug, [facility] [place] [facility] [address] [id number] [place] [address] Aug, [facility] [address] [id number] [place] [address] Aug, [facility] [place] [facility] [address] [id number] [place] [address] July, [facility] [address] [id number] [place] [address] July, [facility] [address] [id number] [place] [address] July, [facility] [address] [id number] [place] [address] July, [facility] [address] [id number] [place] [address] July, [facility] [address] [id number] [place] [address] July, [facility] [address] [id number] [place] [address] Jun, [facility] [place] [facility] [address] [id number] [place] [address] Jun, [facility] [place] [facility] [address] [id number] [place] [address] Jun, [facility] [place] [facility] [address] [id number] [place] [address] Jun, [facility] [place] [facility] [address] [id number] [place] [address] May, [facility] [place] [facility] [address] [id number] [place] [address] May, [facility] [address] [id number] [place] [address] Apr, [facility] [place] [facility] [address] [id number] [place] [address] Apr, [facility] [place] [facility] [address] [id number] [place] [address] Apr, [facility] [place] [facility] [address] [id number] [place] [address] Apr, [facility] [place] [facility] [address] [id number] [place] [address] Mar, [facility] [place] [facility] [address] [id number] [place] [address] Mar, [facility] [place] [facility] [address] [id number] [place] [address] Mar, [facility] [place] [facility] [address] [id number] [place] [address] Mar, [facility] [place] [facility] [address] [id number] [place] [address] Mar, [facility] [place] [facility] [address] [id number] [place] [address] Mar, [facility] [place] [facility] [address] [id number] [address] Feb, [facility] [place] [facility] [address] [id number] [place] [address] Feb, [facility] [place] [facility] [address] [id number] [place] [address] Jan, [facility] [place] [facility] [address] [id number] [place] [address] Jan, [facility] [place] [facility] [address] [id number] [place] [address] Jan, [facility] [place] [facility] [address] [id number] [place] [address] Jan, [facility] [address] [id number] [place] [address] Nov, [facility] [place] [facility] [address] [id number] [place] [address] Nov, [facility] [address] [id number] [place] [address] Oct, [facility] [place] [facility] [address] [id number] [place] [address] Oct, [facility] [address] [id number] [place] [address] Sep, [facility] [place] [facility] [address] [id number] [place] [address] Sep, [facility] [address] [id number] [place] [address] Sep, [facility] [address] [id number] [place] [address] Aug, [facility] [place] [facility] [address] [id number] [place] [address] Aug, [facility] [address] [id number] [place] [address] Aug, [facility] [place] [facility] [address] [id number] [place] [address] Aug, [facility] [place] [facility] [address] [id number] [place] [address] July, [facility] [place] [facility] [address] [id number] [place] [address] July, [facility] [place] [facility] [address] [id number] [place] [address] July, [facility] [place] [facility] [address] [id number] [place] [address] July, [facility] [place] [facility] [address] [id number] [place] [address] Jun, [facility] [place] [facility] [address] [id number] [place] [address] Jun, [facility] [place] [facility] [address] [id number] [place] [address] Jun, [facility] [place] [facility] [address] [id number] [place] [address] May, [facility] [address] [id number] [place] [address] May, [facility] [place] [facility] [address] [id number] [place] [address] Apr, [facility] [place] [facility] [address] [id number] [place] [address] Apr, [facility] [place] [facility] [address] [id number] [place] [address] Apr, [facility] [place] [facility] [address] [id number] [place] [address] Apr, [facility] [place] [facility] [address] [id number] [place] [address] Mar, [facility] [place] [facility] [address] [id number] [place] [address] Mar, [facility] [place] [facility] [address] [id number] [address] Mar, [facility] [place] [facility] [address] [id number] [place] [address] Mar, [facility] [place] [facility] [address] [id number] [place] [address] Feb, [facility] [place] [facility] [address] [id number] [place] [address] Feb, [facility] [place] [facility] [address] [id number] [address] 10 Feb, 2012 [facility] [place] [facility] [address] [id number] [place] [address] 10 Feb, 2012 [facility] [place] [facility] [address] [id number] [place] [address] 10 Feb, 2012 [facility] [place] [facility] [address] [facility] [id number] [place] [address] 06 Feb, 2012 [facility] [place] [facility] [address] [id number] [place] [address] 04 Feb, 2012 [facility] [place] [facility] [address] [id number] [place] [address] 04 Feb, 2012 [facility] [place] [facility] [address] [id number] [place] [address] 28 Jan, 2012 [facility] [place] [facility] [address] [id number] [place] [address] 28 Jan, 2012 [facility] [place] [facility] [address] [id number] [place] [address] 15 Jan, 2012 [facility] [place] [facility] [address] [id number] [place] [address] 15 Jan, 2012 [facility] [place] [facility] [address] [id number] [place] [address] 14 Jan, 2012 [facility] [place] [facility] [address] [id number] [place] [address] 13 Jan, 2012 [facility] [place] [facility] [address] [id number] [address] 13 Jan, 2012 [facility] [place] [facility] [address] [id number] [place] [address] 12 Jan, 2012 [facility] [place] [facility] [address] [facility] [id number] [place] [address] 12 Jan, 2012 [facility] [place] [facility] [address] [id number] [place] [address] 06 Jan, 2012 [facility] [place] [facility] [address] [id number] [place] [id number] Jan, [facility] [place] [facility] [address] [id number] [place] [address] Dec, [facility] [place] [facility] [address] [id number] [place] [address] Dec, [facility] [place] [facility] [address] [id number] [place] [address] Dec, [facility] [place] [facility] [address] [id number] [place] [address] Dec, [facility] [place] [facility] [address] [id number] [place] [address] Dec, [facility] [place] [facility] [address] [id number] [place] [address] Dec, [facility] [place] [facility] [address] [id number] [place] [address] Dec, [facility] [place] [facility] [address] [id number] [place] [address] Dec, [facility] [place] [facility] [address] [id number] [place] [address] Dec, [facility] [place] [facility] [address] [id number] [place] [address] Dec, [facility] [place] [facility] [address] [id number] [place] [address] Dec, [facility] [place] [facility] [address] [id number] [place] [address] Dec, [facility] [place] [facility] [address] [id number] [place] [address] Nov, [facility] [place] [facility] [address] [id number] [place] [address] Oct, [facility] [place] [facility] [address] [id number] [place] [address] Oct, [facility] [address] [facility] [id number] [place] [address] Oct, [facility] [address] [facility] [id number] [place] [address] Oct, [facility] [address] [facility] [id number] [place] [address] Sep, [facility] [address] [facility] [id number] [address] Sep, [facility] [address] [facility] [id number] [place] [address] Sep, [facility] [address] [facility] [id number] [place] [address] Sep, [facility] [address] [facility] [id number] [place] [address] Aug, [facility] [address] [facility] [id number] [place] [address] Aug, [facility] [address] [facility] [id number] [place] [address] Aug, [facility] [address] [id number] [address] Aug, [facility] [address] [id number] [address] Aug, [facility] [address] [facility] [id number] [place] [address] July, [facility] [address] [facility] [id number] [place] [address] July, [facility] [address] [facility] [id number] [place] [address] July, [facility] [address] [facility] [id number] [place] [address] Dec, IMMUNIZATIONS No Known Immunizations SOCIAL HISTORY Never Assessed REASON FOR VISIT UA treatment PLAN OF CARE VITAL SIGNS MEDICATIONS Medication Instructions Dosage Frequency Start Date End Date Duration Status Monurol 3 GM Orally one time as directed Aug, Active RESULTS No Results PROCEDURES No [...]
--- OUTSIDE RECORDS SUMMARY | 2018-10-24 12:34 | XMS REPORT ---
Author Author DIANN DAMON [facility] Address [address] [place] [address] Care Team Providers Care Marketing Content Specialist Name Role Phone DIANN DAMON Unavailable PROBLEMS Type Condition ICD9-CM Code [id number] Code Onset Dates Condition Status SNOMED Code Problem Major depressive disorder F32.9 Active 358480358 Problem Fibromyalgia M79.7 Active 31241108 Problem Lumbago M54.5 Active 734712302 Problem Epilepsy G40.909 Active 90934568 Problem Esophageal reflux K21.9 Active 469339229 Problem Generalized anxiety disorder F41.1 Active 462361280 Problem Interstitial cystitis N30.10 Active 612356395 Problem Irritable bowel syndrome with diarrhea K58.0 Active 125718610 Problem Chronic obstructive pulmonary disease, unspecified COPD type J44.9 Active 01346081 Problem On antiepileptic therapy Z79.899 Active 882966349 Problem Irritable bowel syndrome without diarrhea K58.9 Active 01976519 Problem Tinnitus of both ears H93.13 Active 7494760485053 Problem Vitamin D deficiency E55.9 Active 83125042 ALLERGIES No Information ENCOUNTERS Encounter Location Date Diagnosis [place] [id number], [place] [address] Mar, [facility] [id number] [place] [address] Mar, Epilepsy G40.909 ; Lumbago M54.5 ; Esophageal reflux K21.9 ; Fibromyalgia M79.7 ; Chronic obstructive pulmonary disease, unspecified COPD type J44.9 ; Vitamin D deficiency E55.9 ; Fluid level behind tympanic membrane of right ear H65.91 ; Irritable bowel syndrome with diarrhea K58.0 ; Hematochezia K92.1 and Generalized anxiety disorder F41.1 [facility] [address] [place] [id number] [place] [address] Mar, [facility] [address] [place] [id number] [place] [address] Mar, [facility] [id number] [place] [address] Mar, Vitamin D deficiency E55.9 [facility] [address] [id number] [place] [address] Feb, [facility] [id number] [place] [address] Feb, [facility] [id number] [place] [address] Jan, Fibromyalgia M79.7 [facility] [address] [id number] [place] [address] Jan, [facility] [address] [address] Jan, [facility] [address] [id number] [place] [address] Jan, Vitamin D deficiency E55.9 [facility] [address] [id number] [place] [address] Dec, [facility] [id number] [place] [address] Dec, [facility] [address] [id number] [place] [address] Dec, Generalized anxiety disorder F41.1 [facility] [address] [id number] [place] [address] Dec, Dysuria R30.0 ; Acute bilateral low back pain without sciatica M54.5 and Encounter for immunization Z23 [facility] [id number] [place] [address] Oct, [facility] [id number] [place] [address] Oct, Fibromyalgia M79.7 [facility] [address] [id number] [place] [address] Sep, Dysuria R30.0 and Acute bronchitis, unspecified organism J20.9 [facility] [address] [place] [id number] [place] [address] Sep, [place] [address] [address] Sep, Rectal prolapse K62.3 [place] [address] [place] [address] [id number] [place] [address] Sep, Chronic obstructive pulmonary disease, unspecified COPD type J44.9 [place] [address] [id number] Aug, [place] [address] [id number] Aug, [place] [address] [place] [id number] [place] [address] Aug, Light headedness R42 ; On antiepileptic therapy Z79.899 ; Vitamin D deficiency E55.9 ; Screening for lipid disorders Z13.220 ; Dysuria R30.0 and Hemorrhoids, unspecified hemorrhoid type K64.9 [place] [address] [place] [address] [id number] [place] [address] Aug, Internal prolapsed hemorrhoids K64.8 [place] [address] [place] [id number] [place] [address] July, [place] [address] [place] [id number] [place] [address] May, [place] [address] [place] [id number] [place] [address] May, Fever and chills R50.9 and Influenza B J10.1 [place] [address] [place] [id number] [place] [address] Apr, [facility] [address] [id number] [place] [address] Apr, Fibromyalgia M79.7 and Generalized anxiety disorder F41.1 [facility] [address] [place] [id number] [place] [address] 19 Mar, 2016 Esophageal reflux K21.9 ; Generalized anxiety disorder F41.1 and Epilepsy G40.909 [facility] [address] [place] [id number] [place] [address] 13 Mar, 2016 Epilepsy G40.909 ; Esophageal [...] disorders Z13.220 and On antiepileptic therapy Z79.899 [facility] [address] [place] [id number] [place] [address] Feb, [facility] [address] [address] Feb, [facility] [address] [place] [id number] [place] [address] Feb, Dysuria R30.0 and Plantar fasciitis of right foot M72.2 [facility] [address] [place] [id number] [place] [address] Feb, [facility] [address] [place] [id number] [place] [address] Feb, [facility] [address] [address] Jan, [facility] [address] [address] Jan, [facility] [address] [place] [address] Dec, [facility] [address] [place] [id number] [place] [address] Dec, [facility] [address] [place] [id number] [place] [address] Dec, [facility] [address] [id number] [place] [address] Nov, [facility] [address] [id number] [place] [address] Sep, [facility] [address] [id number] [place] [address] Aug, Shortness of breath R06.02 and Acute suppurative otitis media of right ear without spontaneous rupture of tympanic membrane, recurrence not specified H66.001 [place] [address] [address] Aug, Internal prolapsed hemorrhoids K64.8 [place] [address] [place] [id number] [place] [address] Jun, 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 [place] [address] [place] [id number] [place] [address] May, Fibromyalgia M79.7 ; Interstitial cystitis N30.10 ; Intractable migraine without aura and without status migrainosus G43.019 ; Low vitamin D level E55.9 and Ringing in right ear H93.11 [facility] [address] [place] [address] May, [facility] [address] [address] May, Low vitamin D level E55.9 [facility] [address] [place] [id number] [place] [address] Apr, [facility] [address] [place] [id number] [place] [address] Mar, [facility] [address] [place] [id number] [place] [address] Mar, Acute suppurative otitis media of right ear without spontaneous rupture of tympanic membrane, recurrence not specified H66.001 ; Encounter for immunization Z23 ; Asthma with acute exacerbation, unspecified asthma severity J45.901 ; Memory problem R41.3 ; Acute pain of right knee M25.561 ; Chronic fatigue R53.82 and Excessive urinary volume R35.8 [facility] [address] [address] Feb, [place] [address] [address] Feb, [place] [address] [address] Jan, [facility] [address] [address] Nov, Esophageal reflux 530.81 ; Anxiety 300.00 and Tingling in extremities 782.0 [place] [address] [place] [id number] [place] [address] Oct, [facility] [address] [place] [id number] [place] [address] Oct, [facility] [address] [place] [id number] [place] [address] Oct, [facility] [address] [place] [id number] [place] [address] Oct, [facility] [address] [address] Oct, [facility] [address] [address] Sep, Other chronic allergic conjunctivitis 372.14 ; Irritable bowel syndrome 564.1 ; 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 ; Fibromyalgia 729.1 ; Extremity pain 729.5 and Neck pain 723.1 [facility] [address] [facility] [id number] [address] Sep, [facility] [address], [place] [address] Aug, [facility] [address], [place] [address] Aug, [facility] [address] [place] [address] July, Vomiting 787.03 [facility] [address] [id number] [id number] July, Dental examination V72.2 [facility] [id number] [address] Jun, [facility] [address] [place] [id number] [place] [address] Jun, [facility] [address], [place] [address] May, [facility] [address] [id number] [place] [address] May, [facility] [address], [place] [address] May, [facility] [address], [place] [address] May, [facility] [address], [place] [address] May, [facility] [address], [place] [address] May, [facility] [address], [place] [address] May, [facility] [address], [place] [address] May, [facility] [place] [facility] [address] [id number] [place] [address] May, [facility] [place] [facility] [address] [id number] [place] [address] Apr, [facility] [place] [facility] [address] [id number] [place] [address] Apr, [facility] [place] [facility] [address] [id number] [place] [address] Apr, [facility] [place] [facility] [address] [id number] [place] [address] Apr, [facility] [place] [facility] [address] [id number] [place] [address] Apr, [facility] [place] [facility] [address] [facility] [id number] [place] [address] Apr, [facility] [place] [facility] [address] [id number] [place] [address] Mar, [facility] [place] [facility] [address] [id number] [place] [address] Mar, [facility] [place] [facility] [address] [facility] [id number] [place] [address] Mar, [facility] [place] [facility] [address] [id number], [place] [address] Mar, [facility] [place] [facility] [address] [id number], [place] [address] Mar, [facility] [place] [facility] [address] [id number] [place] [address] Mar, [facility] [place] [facility] [address] [id number] [place] [address] Mar, [facility] [place] [facility] [address] [id number] [place] [address] Mar, [facility] [place] [facility] [address] [id number] [place] [address] Mar, [facility] [place] [facility] [address] [id number] [place] [address] Mar, [facility] [place] [facility] [address] [id number] [place] [address] Mar, [facility] [place] [facility] [address] [id number] [place] [address] Mar, [facility] [place] [facility] [address] [id number] [place] [address] Mar, [facility] [place] [facility] [address] [id number] [place] [address] Mar, [facility] [place] [facility] [address] [id number] [place] [address] Mar, [facility] [place] [facility] [address] [id number] [place] [address] Mar, [facility] [place] [facility] [address] [id number] [place] [address] Mar, [facility] [place] [facility] [address] [id number] [place] [address] Mar, [facility] [place] [facility] [address] [id number] [place] [address] Mar, [facility] [place] [facility] [address] [id number] [place] [address] Feb, [facility] [place] [facility] [address] [id number] [place] [address] Feb, [facility] [place] [facility] [address] [id number] [place] [address] Feb, [facility] [place] [facility] [address] [id number] [place] [address] Feb, [facility] [place] [facility] [address] [id number] [place] [address] Jan, [facility] [place] [facility] [address] [id number] [place] [address] Jan, [facility] [place] [facility] [address] [id number] [place] [address] Jan, [facility] [place] [facility] [address] [id number] [place] [address] Jan, [facility] [place] [facility] [address] [id number] [place] [address] Jan, [facility] [place] [facility] [address] [id number] [place] [address] Jan, [facility] [place] [facility] [address] [id number] [place] [address] Jan, [facility] [place] [facility] [address] [id number] [place] [address] Jan, [facility] [place] [facility] [address] [id number] [place] [address] Dec, [facility] [place] [facility] [address] [id number] [place] [address] Dec, [facility] [place] [facility] [address] [id number] [place] [address] Dec, [facility] [place] [facility] [address] [id number] [place] [address] Dec, [facility] [place] [facility] [address] [id number] [place] [address] Nov, [facility] [place] [facility] [address] [id number] [place] [address] 22 Nov, 2013 [facility] [place] [facility] [address] [id number] [place] [address] 08 Nov, 2013 [facility] [place] [facility] [address] [id number] [place] [address] 08 Nov, 2013 [facility] [place] [facility] [address] [id number] [place] [address] 05 Nov, 2013 [facility] [place] [facility] [address] [id number] [place] [address] 05 Nov, 2013 [facility] [place] [facility] [address] [id number] [place] [address] 04 Nov, 2013 [facility] [place] [facility] [address] [id number] [place] [address] 04 Nov, 2013 [facility] [place] [facility] [address] [id number] [place] [address] Nov, 2013 [facility] [place] [facility] [address] [id number] [place] [address] Nov, [facility] [place] [facility] [address] [id number] [place] [address] Oct, [facility] [place] [facility] [address] [id number] [place] [address] Oct, [facility] [place] [facility] [address] [id number] [place] [address] Sep, [facility] [place] [facility] [address] [id number] [place] [address] Sep, [facility] [place] [facility] [address] [id number] [place] [address] Sep, [facility] [place] [facility] [address] [id number] [place] [address] Sep, [facility] [place] [facility] [address] [id number] [place] [address] Sep, [facility] [place] [facility] [address] [id number] [place] [address] Sep, [facility] [place] [facility] [address] [id number] [place] [address] Aug, [facility] [place] [facility] [address] [id number] [place] [address] Aug, [facility] [place] [facility] [address] [id number] [place] [address] Aug, [facility] [address] [id number] [place] [address] Aug, [facility] [place] [facility] [address] [id number] [place] [address] Aug, [facility] [address] [id number] [place] [address] Aug, [facility] [place] [facility] [address] [id number] [place] [address] July, [facility] [address] [id number] [place] [address] July, [facility] [address] [id number] [place] [address] July, [facility] [address] [id number] [place] [address] July, [facility] [address] [id number] [place] [address] July, [facility] [address] [id number] [place] [address] July, [facility] [address] [id number] [place] [address] Jun, [facility] [place] [facility] [address] [id number] [place] [address] Jun, [facility] [place] [facility] [address] [id number] [place] [address] Jun, [facility] [place] [facility] [address] [id number] [place] [address] Jun, [facility] [place] [facility] [address] [id number] [place] [address] May, [facility] [place] [facility] [address] [id number] [place] [address] May, [facility] [address] [id number] [place] [address] Apr, [facility] [place] [facility] [address] [id number] [place] [address] Apr, [facility] [place] [facility] [address] [id number] [place] [address] Apr, [facility] [place] [facility] [address] [id number] [place] [address] Apr, [facility] [place] [facility] [address] [id number] [place] [address] Mar, [facility] [place] [facility] [address] [id number] [place] [address] Mar, [facility] [place] [facility] [address] [id number] [place] [address] Mar, [facility] [place] [facility] [address] [id number] [place] [address] Mar, [facility] [place] [facility] [address] [id number] [place] [address] Mar, [facility] [place] [facility] [address] [id number] [place] [address] Mar, [facility] [place] [facility] [address] [id number], [place] [address] Feb, [facility] [place] [facility] [address] [id number], [place] [address] Feb, [facility] [place] [facility] [address] [id number] [place] [address] Jan, [facility] [place] [facility] [address] [id number] [place] [address] Jan, [facility] [place] [facility] [address] [id number] [place] [address] Jan, [facility] [place] [facility] [address] [id number] [place] [address] Jan, [facility] [address] [id number] [place] [address] Nov, [facility] [place] [facility] [address] [id number] [place] [address] Nov, [facility] [address] [id number] [place] [address] Oct, [facility] [place] [facility] [address] [id number] [place] [address] Oct, [facility] [address] [id number] [place] [address] Sep, [facility] [place] [facility] [address] [id number] [place] [address] Sep, [facility] [address] [id number] [place] [address] Sep, [facility] [address] [id number] [place] [address] Aug, [facility] [place] [facility] [address] [id number] [place] [address] Aug, [facility] [address] [id number] [place] [address] Aug, [facility] [place] [facility] [address] [id number] [place] [address] Aug, [facility] [place] [facility] [address] [id number] [place] [address] July, [facility] [place] [facility] [address] [id number] [place] [address] July, [facility] [place] [facility] [address] [id number] [place] [address] July, [facility] [place] [facility] [address] [id number] [place] [address] July, [facility] [place] [facility] [address] [id number] [place] [address] Jun, [facility] [place] [facility] [address] [id number] [place] [address] Jun, [facility] [place] [facility] [address] [id number] [place] [address] Jun, [facility] [place] [facility] [address] [id number] [place] [address] May, [facility] [address] [id number] [place] [address] May, [facility] [place] [facility] [address] [id number] [place] [address] Apr, [facility] [place] [facility] [address] [id number] [place] [address] Apr, [facility] [place] [facility] [address] [id number] [place] [address] Apr, [facility] [place] [facility] [address] [id number] [place] [address] Apr, [facility] [place] [facility] [address] [id number] [place] [address] Mar, [facility] [place] [facility] [address] [id number] [place] [address] Mar, [facility] [place] [facility] [address] [id number], [place] [address] Mar, [facility] [place] [facility] [address] [id number] [place] [address] Mar, [facility] [place] [facility] [address] [id number] [place] [address] Feb, [facility] [place] [facility] [address] [id number] [place] [address] Feb, [facility] [place] [facility] [address] [id number], [place] [address] 10 Feb, 2012 [facility] [place] [facility] [address] [id number] [place] [address] 10 Feb, 2012 [facility] [place] [facility] [address] [id number] [place] [address] 10 Feb, 2012 [facility] [place] [facility] [address] [facility] [id number] [place] [address] 06 Feb, 2012 [facility] [place] [facility] [address] [id number] [place] [address] 04 Feb, 2012 [facility] [place] [facility] [address] [id number] [place] [address] 04 Feb, 2012 [facility] [place] [facility] [address] [id number] [place] [address] 28 Jan, 2012 [facility] [place] [facility] [address] [id number] [address] 28 Jan, 2012 [facility] [place] [facility] [address] [id number] [place] [address] 15 Jan, 2012 [facility] [place] [facility] [address] [id number] [address] 15 Jan, 2012 [facility] [place] [facility] [address] [id number] [address] 14 Jan, 2012 [facility] [place] [facility] [address] [id number] [place] [address] 13 Jan, 2012 [facility] [place] [facility] [address] [id number], [place] [address] 13 Jan, 2012 [facility] [place] [facility] [address] [id number] [place] [address] 12 Jan, 2012 [facility] [place] [facility] [address] [facility] [id number] [place] [address] 12 Jan, 2012 [facility] [place] [facility] [address] [id number] [address] 06 Jan, 2012 [facility] [place] [facility] [address] [id number] [place] [address] Jan, [facility] [place] [facility] [address] [id number] [place] [address] Dec, [facility] [place] [facility] [address] [id number] [place] [address] Dec, [facility] [place] [facility] [address] [id number] [place] [address] Dec, [facility] [place] [facility] [address] [id number] [place] [address] Dec, [facility] [place] [facility] [address] [id number] [place] [address] Dec, [facility] [place] [facility] [address] [id number] [place] [address] Dec, [facility] [place] [facility] [address] [id number] [place] [address] Dec, [facility] [place] [facility] [address] [id number] [place] [address] Dec, [facility] [place] [facility] [address] [id number] [place] [address] Dec, [facility] [place] [facility] [address] [id number] [place] [address] Dec, [facility] [place] [facility] [address] [id number] [place] [address] Dec, [facility] [place] [facility] [address] [id number] [place] [address] Dec, [facility] [place] [facility] [address] [id number] [place] [address] Nov, [facility] [place] [facility] [address] [id number] [place] [address] Oct, [facility] [place] [facility] [address] [id number] [place] [address] Oct, [facility] [address] [facility] [id number] [place] [address] Oct, [facility] [address] [facility] [id number] [place] [address] Oct, [facility] [address] [facility] [id number] [place] [address] Sep, [facility] [address] [facility] [id number] [place] [address] Sep, [facility] [address] [facility] [id number] [place] [address] Sep, [facility] [address] [facility] [id number] [place] [address] Sep, [facility] [address] [facility] [id number] [place] [address] Aug, [facility] [address] [facility] [id number], [place] [address] Aug, [facility] [address] [facility] [id number], [place] [address] Aug, [facility] [address] [facility] [id number], [place] [address] Aug, [facility] [address] [id number], [place] [address] Aug, [facility] [address] [facility] [id number], [place] [address] July, [facility] [address] [facility] [id number], [place] [address] July, [facility] [address] [facility] [id number], [place] [address] July, [facility] [address] [facility] [id number], [place] [address] Dec, IMMUNIZATIONS No Known Immunizations SOCIAL HISTORY Never Assessed REASON FOR VISIT Vitamin D PLAN OF CARE VITAL SIGNS MEDICATIONS Medication Instructions Dosage Frequency Start Date End Date Duration Status Vitamin D3 [address]60 UNIT Orally once weekly 1 capsule Aug, Nov, 90 days Active RESULTS No Results PROCEDURES [...]
--- OUTSIDE RECORDS SUMMARY | 2018-10-24 12:35 | XMS REPORT ---
Author Author DIANN DAMON [facility] eClinicalWorks Address Unknown Phone Unavailable Care Team Providers Care Generation Manager Name Role Phone DIANN DAMON Unavailable Allergies No Known Allergies Problems Problem Type Condition Code Onset Dates Condition Status Problem Fibromyalgia M79.7 Active Problem Lumbago M54.5 Active Problem Epilepsy G40.909 Active Problem Irritable bowel syndrome without diarrhea K58.9 Active Problem Generalized anxiety disorder F41.1 Active Problem Interstitial cystitis N30.10 Active Problem Major depressive disorder F32.9 Active Problem Esophageal reflux K21.9 Active Medications Medication Code System Code Instructions Start Date End Date Status Dosage Lyrica [facility] [address]-65 150 MG Orally 2 times a day October 11, 2014 1 capsule Results No Known Results Summary Purpose eClinicalWorks Submission
--- OUTSIDE RECORDS SUMMARY | 2018-10-24 12:35 | XMS REPORT ---
Author Author NELSON DIANN [facility] Address [address] [place] [address] Care Team Providers Care Research And Development Chemist Name Role Phone NELSONPRADEEP BURGOSHANY Unavailable PROBLEMS Type Condition ICD9-CM Code [id number] Code Onset Dates Condition Status SNOMED Code Problem Fibromyalgia M79.7 Active 02414131 Problem Vitamin D deficiency E55.9 Active 40483238 Problem Irritable bowel syndrome without diarrhea K58.9 Active 50112737 Problem COPD exacerbation J44.1 Active 636248149 Problem Menopausal symptoms N95.1 Active 25428994 Problem Tinnitus of both ears H93.13 Active 2103631162427 Problem On antiepileptic therapy Z79.899 Active 109290584 Problem Irritable bowel syndrome with diarrhea K58.0 Active 550551863 Problem Chronic obstructive pulmonary disease, unspecified COPD type J44.9 Active 38806964 Problem Esophageal reflux K21.9 Active 459598412 Problem Interstitial cystitis N30.10 Active 901714306 Problem Generalized anxiety disorder F41.1 Active 415786627 Problem Major depressive disorder F32.9 Active 891051973 Problem Epilepsy G40.909 Active 07866606 Problem Lumbago M54.5 Active 049809271 ALLERGIES No Information ENCOUNTERS Encounter Location Date Diagnosis [facility] [id number] [place] [id number] Sep, [facility] [id number] [place] [address] Sep, [facility] [id number] [place] [id number] Aug, [facility] [id number] [place] [address] Aug, Esophageal reflux K21.9 [facility] [id number] [place] [address] Aug, [facility] [address] [address] Aug, Esophageal reflux K21.9 ; Fluid level behind tympanic membrane of right ear H65.91 ; Fibromyalgia M79.7 and Lumbago M54.5 [facility] [id number] [place] [address] Aug, Esophageal reflux K21.9 [facility] [id number] [place] [address] July, [facility] [id number] [place] [address] July, [facility] [id number] [place] [address] July, Chronic obstructive pulmonary disease, unspecified COPD type J44.9 [place] [id number] [place] [address] July, [place] [id number] [place] [address] July, [place] [id number] [place] [address] July, Interstitial cystitis N30.10 ; Fibromyalgia M79.7 [...] Dysuria R30.0 and Generalized anxiety disorder F41.1 [facility] [id number] [place] [address] Jun, [place] [id number] [place] [address] Jun, Chronic obstructive pulmonary disease, unspecified COPD type J44.9 ; COPD exacerbation J44.1 and Sore throat J02.9 [facility] [id number] [place] [address] Jun, Fibromyalgia M79.7 [facility] [id number] [place] [address] Jun, Fibromyalgia M79.7 [facility] [address] [address] May, [facility] [address] [address] May, [facility] [address] [address] May, Fibromyalgia M79.7 [facility] [id number] [place] [address] Mar, [facility] [id number] [place] [address] Mar, Epilepsy G40.909 ; Lumbago M54.5 ; Esophageal reflux K21.9 ; Fibromyalgia M79.7 ; Chronic obstructive pulmonary disease, unspecified COPD type J44.9 ; Vitamin D deficiency E55.9 ; Fluid level behind tympanic membrane of right ear H65.91 ; Irritable bowel syndrome with diarrhea K58.0 ; Hematochezia K92.1 and Generalized anxiety disorder F41.1 [facility] [id number] [place] [address] Mar, [facility] [id number] [place] [address] Mar, [place] [id number] [place] [address] Mar, Vitamin D deficiency E55.9 [facility] [id number] [place] [address] Feb, [facility] [id number] [place] [address] Feb, [facility] [address] [address] Jan, Fibromyalgia M79.7 [facility] [id number] [place] [address] Jan, [facility] [address] [address] Jan, [facility] [address] [address] Jan, Vitamin D deficiency E55.9 [facility] [address] [address] Dec, [facility] [address] [address] Dec, [facility] [address] [address] Dec, Generalized anxiety disorder F41.1 [facility] [address] [address] Dec, Dysuria R30.0 ; Acute bilateral low back pain without sciatica M54.5 and Encounter for immunization Z23 [facility] [id number] [place] [address] Oct, [facility] [id number] [place] [address] Oct, Fibromyalgia M79.7 [facility] [id number] [place] [address] Sep, Dysuria R30.0 and Acute bronchitis, unspecified organism J20.9 [facility] [id number] [place] [address] Sep, [facility] [address] [address] Sep, Rectal prolapse K62.3 [place] [id number] [place] [address] Sep, Chronic obstructive pulmonary disease, unspecified COPD type J44.9 [facility] [id number] [place] [id number] Aug, [place] [address] [id number] Aug, [place] [address] [address] Aug, Light headedness R42 ; On antiepileptic therapy Z79.899 ; Vitamin D deficiency E55.9 ; Screening for lipid disorders Z13.220 ; Dysuria R30.0 and Hemorrhoids, unspecified hemorrhoid type K64.9 [place] [id number] [place] [address] Aug, Internal prolapsed hemorrhoids K64.8 [place] [id number] [place] [address] July, [place] [address] [address] May, [place] [id number] [place] [address] May, Fever and chills R50.9 and Influenza B J10.1 [place] [id number] [place] [address] Apr, [place] [id number] [place] [address] Apr, Fibromyalgia M79.7 and Generalized anxiety disorder F41.1 [place] [id number] [place] [address] Mar, Esophageal reflux K21.9 ; Generalized anxiety disorder F41.1 and Epilepsy G40.909 [place] [id number] [place] [address] 13 Mar, 2016 Epilepsy G40.909 ; Esophageal [...] disorders Z13.220 and On antiepileptic therapy Z79.899 [facility] [address] [address] Feb, [facility] [address] [address] Feb, [facility] [address] [address] Feb, Dysuria R30.0 and Plantar fasciitis of right foot M72.2 [facility] [id number] [place] [address] Feb, [facility] [address] [address] Feb, [facility] [id number] [place] [address] Jan, [facility] [id number] [place] [address] Jan, [facility] [id number] [place] [address] Dec, [facility] [address] [address] Dec, [facility] [address] [address] Dec, [facility] [id number] [place] [address] Nov, [facility] [id number] [place] [address] Sep, [facility] [id number] [place] [address] Aug, Shortness of breath R06.02 and Acute suppurative otitis media of right ear without spontaneous rupture of tympanic membrane, recurrence not specified H66.001 [place] [address] [address] Aug, Internal prolapsed hemorrhoids K64.8 [place] [id number] [place] [address] Jun, 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 [place] [id number] [place] [address] May, Fibromyalgia M79.7 ; Interstitial cystitis N30.10 ; Intractable migraine without aura and without status migrainosus G43.019 ; Low vitamin D level E55.9 and Ringing in right ear H93.11 [facility] [id number] [place] [address] May, [place] [id number] [place] [address] May, Low vitamin D level E55.9 [place] [id number] [place] [address] Apr, [facility] [id number] [place] [address] Mar, [place] [id number] [place] [address] Mar, Acute suppurative otitis media of right ear without spontaneous rupture of tympanic membrane, recurrence not specified H66.001 ; Encounter for immunization Z23 ; Asthma with acute exacerbation, unspecified asthma severity J45.901 ; Memory problem R41.3 ; Acute pain of right knee M25.561 ; Chronic fatigue R53.82 and Excessive urinary volume R35.8 [facility] [id number] [place] [address] Feb, [facility] [id number] [place] [address] Feb, [facility] [id number] [place] [address] Jan, [facility] [id number] [place] [address] Nov, Esophageal reflux 530.81 ; Anxiety 300.00 and Tingling in extremities 782.0 [facility] [id number] [place] [address] Oct, [facility] [id number] [place] [address] Oct, [facility] [id number] [place] [address] Oct, [facility] [id number] [place] [address] Oct, [facility] [id number] [place] [address] Oct, [facility] [id number] [place] [address] Sep, Other chronic allergic conjunctivitis 372.14 ; Irritable bowel syndrome 564.1 ; 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 ; Fibromyalgia 729.1 ; Extremity pain 729.5 and Neck pain 723.1 [facility] [id number] [place] [address] Sep, [facility] [id number] [place] [address] Aug, [facility] [id number] [place] [address] Aug, [facility] [id number] [address] July, Vomiting 787.03 [facility] [address] [id number] [id number] July, Dental examination V72.2 [facility] [address] [address] 14 Jun, 2014 [facility] [place] [facility] [address] [facility] [id number], [place] [address] Jun, [facility] [address] [facility] [id number], [place] [address] May, [facility] [address], [place] [address] May, [facility] [address], [place] [address] May, [facility] [address], [place] [address] May, [facility] [id number] [address] May, [facility] [address], [place] [address] May, [facility] [place] [facility] [address] [address] May, [facility] [place] [facility] [address], [place] [address] May, [facility] [place] [facility] [address] [facility] [id number] [address] May, [facility] [place] [facility] [address], [place] [address] Apr, [facility] [place] [facility] [id number] [address] Apr, [facility] [place] [facility] [address], [place] [address] Apr, [facility] [place] [facility] [address] [id number] [place] [address] Apr, [facility] [place] [facility] [address] [id number] [place] [address] Apr, [facility] [place] [facility] [address] [id number] [place] [address] Apr, [facility] [place] [facility] [address] [id number] [place] [address] Mar, [facility] [place] [facility] [address] [id number] [place] [address] Mar, [facility] [place] [facility] [address] [id number] [place] [address] Mar, [facility] [place] [facility] [address] [id number] [place] [address] Mar, [facility] [place] [facility] [address] [id number] [place] [address] Mar, [facility] [place] [facility] [address] [id number] [place] [address] Mar, [facility] [place] [facility] [address] [facility] [id number] [place] [address] Mar, [facility] [place] [facility] [address] [id number] [place] [address] Mar, [facility] [place] [facility] [address] [id number] [place] [address] Mar, [facility] [place] [facility] [address] [id number] [place] [address] Mar, [facility] [place] [facility] [address] [id number] [place] [address] Mar, [facility] [place] [facility] [address] [id number] [place] [address] Mar, [facility] [place] [facility] [address] [id number] [place] [address] Mar, [facility] [place] [facility] [address] [id number] [place] [address] Mar, [facility] [place] [facility] [address] [id number] [place] [address] Mar, [facility] [place] [facility] [address] [id number] [place] [address] Mar, [facility] [place] [facility] [address] [id number] [place] [address] Mar, [facility] [place] [facility] [address] [id number] [place] [address] Mar, [facility] [place] [facility] [address] [id number] [place] [address] Mar, [facility] [place] [facility] [address] [id number] [place] [address] Feb, [facility] [place] [facility] [address] [id number] [place] [address] Feb, [facility] [place] [facility] [address] [id number] [place] [address] Feb, [facility] [place] [facility] [address] [id number] [place] [address] Feb, [facility] [place] [facility] [address] [id number] [place] [address] Jan, [facility] [place] [facility] [address] [id number] [place] [address] Jan, [facility] [place] [facility] [address] [id number] [place] [address] 14 Jan, 2014 [facility] [place] [facility] [address] [id number] [place] [address] 14 Jan, 2014 [facility] [place] [facility] [address] [id number] [place] [address] 14 Jan, 2014 [facility] [place] [facility] [address] [id number] [place] [address] 14 Jan, 2014 [facility] [place] [facility] [address] [id number] [place] [address] 07 Jan, 2014 [facility] [place] [facility] [address] [id number] [place] [address] Jan, [facility] [place] [facility] [address] [id number] [place] [address] Dec, [facility] [place] [facility] [address] [id number] [place] [address] Dec, [facility] [place] [facility] [address] [id number] [place] [address] Dec, [facility] [place] [facility] [address] [id number] [place] [address] Dec, [facility] [place] [facility] [address] [id number] [place] [address] 22 Sep, 2013 [facility] [place] [facility] [address] [id number] [place] [address] 22 Sep, 2013 [facility] [place] [facility] [address] [id number] [place] [address] 08 Sep, 2013 [facility] [place] [facility] [address] [id number] [place] [address] 08 Sep, 2013 [facility] [place] [facility] [address] [id number], [place] [address] 05 Sep, 2013 [facility] [place] [facility] [address] [id number] [place] [address] 05 Sep, 2013 [facility] [place] [facility] [address] [id number] [place] [address] 04 Sep, 2013 [facility] [place] [facility] [address] [id number] [place] [address] 04 Sep, 2013 [facility] [place] [facility] [address] [id number] [place] [address] Nov, [facility] [place] [facility] [address] [id number] [place] [address] Nov, [facility] [place] [facility] [address] [id number] [place] [address] Oct, [facility] [place] [facility] [address] [id number] [place] [address] Oct, [facility] [place] [facility] [address] [id number] [place] [address] Sep, [facility] [place] [facility] [address] [id number] [place] [address] Sep, [facility] [place] [facility] [address] [id number] [place] [address] Sep, [facility] [place] [facility] [address] [id number] [place] [address] Sep, [facility] [place] [facility] [address] [id number] [place] [address] Sep, [facility] [place] [facility] [address] [id number] [place] [address] Sep, [facility] [place] [facility] [address] [id number] [place] [address] Aug, [facility] [place] [facility] [address] [id number] [place] [address] Aug, [facility] [place] [facility] [address] [id number] [place] [address] Aug, [facility] [place] [facility] [address] [id number] [place] [address] Aug, [facility] [place] [facility] [address] [id number] [place] [address] Aug, [facility] [place] [facility] [address] [id number] [place] [address] Aug, [facility] [place] [facility] [address] [id number] [place] [address] July, [facility] [place] [facility] [address] [id number] [place] [address] July, [facility] [place] [facility] [address] [id number] [place] [address] July, [facility] [place] [facility] [address] [id number] [place] [address] July, [facility] [place] [facility] [address] [id number] [place] [address] July, [facility] [place] [facility] [address] [id number] [place] [address] July, [facility] [place] [facility] [address] [id number] [place] [address] Jun, [facility] [place] [facility] [address] [id number] [place] [address] Jun, [facility] [place] [facility] [address] [id number] [place] [address] Jun, [facility] [place] [facility] [address] [id number] [place] [address] Jun, [facility] [place] [facility] [address] [id number] [place] [address] May, [facility] [place] [facility] [address] [id number] [place] [address] May, [facility] [place] [facility] [address] [id number] [place] [address] Apr, [facility] [place] [facility] [address] [id number] [place] [address] Apr, [facility] [place] [facility] [address] [id number] [place] [address] Apr, [facility] [place] [facility] [address] [id number] [place] [address] 07 Apr, 2013 [facility] [address] [id number] [place] [address] Mar, [facility] [place] [facility] [address] [id number] [place] [address] Mar, [facility] [place] [facility] [address] [id number] [place] [address] Mar, [facility] [place] [facility] [address] [id number] [place] [address] Mar, [facility] [place] [facility] [address] [id number] [place] [address] Mar, [facility] [place] [facility] [address] [id number] [place] [address] Mar, [facility] [address] [id number] [place] [address] Feb, [facility] [place] [facility] [address] [id number] [place] [address] Feb, [facility] [place] [facility] [address] [id number] [place] [address] Jan, [facility] [place] [facility] [address] [id number] [place] [address] Jan, [facility] [place] [facility] [address] [id number] [place] [address] Jan, [facility] [place] [facility] [address] [id number] [place] [address] Jan, [facility] [place] [facility] [address] [id number] [place] [address] Nov, [facility] [place] [facility] [address] [id number] [place] [address] Nov, [facility] [place] [facility] [address] [id number] [place] [address] Oct, [facility] [place] [facility] [address] [id number] [place] [address] Oct, [facility] [address] [id number] [place] [address] Sep, [facility] [place] [facility] [address] [id number] [place] [address] Sep, [facility] [address] [id number] [place] [address] Sep, [facility] [address] [id number] [place] [address] Aug, [facility] [place] [facility] [address] [id number] [place] [address] Aug, [facility] [address] [id number] [place] [address] Aug, [facility] [address] [id number] [place] [address] Aug, [facility] [address] [id number] [place] [address] July, [facility] [address] [id number] [place] [address] July, [facility] [address] [id number] [place] [address] July, [facility] [address] [id number] [place] [address] July, [facility] [place] [facility] [address] [id number] [place] [address] Jun, [facility] [place] [facility] [address] [id number] [place] [address] Jun, [facility] [place] [facility] [address] [id number] [place] [address] Jun, [facility] [place] [facility] [address] [id number] [place] [address] May, [facility] [address] [id number] [place] [address] May, [facility] [place] [facility] [address] [id number] [place] [address] Apr, [facility] [address] [id number] [place] [address] Apr, [facility] [place] [facility] [address] [id number] [place] [address] Apr, [facility] [address] [id number] [place] [address] Apr, [facility] [address] [id number] [place] [address] Mar, [facility] [address] [id number] [place] [address] Mar, [facility] [address] [id number] [place] [address] Mar, [facility] [address] [id number] [place] [address] Mar, [facility] [address] [id number] [place] [address] Feb, [facility] [address] [id number] [place] [address] Feb, [facility] [place] [facility] [address] [id number] [place] [address] Feb, [facility] [place] [facility] [address] [id number] [place] [address] Feb, [facility] [place] [facility] [address] [id number] [place] [address] Feb, [facility] [place] [facility] [address] [id number] [place] [address] Feb, [facility] [place] [facility] [address] [id number] [place] [address] 04 Feb, 2012 [facility] [place] [facility] [address] [id number] [place] [address] Feb, [facility] [place] [facility] [address] [id number] [place] [address] Jan, [facility] [place] [facility] [address] [id number] [place] [address] 28 Jan, 2012 [facility] [place] [facility] [address] [id number] [place] [address] 15 Jan, 2012 [facility] [place] [facility] [address] [id number] [place] [address] 15 Jan, 2012 [facility] [place] [facility] [address] [id number] [place] [address] 14 Jan, 2012 [facility] [place] [facility] [address] [id number] [place] [address] Jan, [facility] [place] [facility] [address] [id number] [place] [address] Jan, [facility] [place] [facility] [address] [id number] [place] [address] Jan, [facility] [place] [facility] [address] [id number] [place] [address] Jan, [facility] [place] [facility] [address] [id number] [place] [address] Jan, [facility] [place] [facility] [address] [id number] [place] [address] Jan, [facility] [place] [facility] [address] [id number] [place] [address] Dec, [facility] [place] [facility] [address] [id number] [place] [address] Dec, [facility] [place] [facility] [address] [id number] [place] [address] Dec, [facility] [place] [facility] [address] [id number] [place] [address] Dec, [facility] [place] [facility] [address] [id number] [place] [address] Dec, [facility] [place] [facility] [address] [id number] [place] [address] Dec, [facility] [place] [facility] [address] [id number] [place] [address] Dec, [facility] [place] [facility] [address] [id number] [place] [address] Dec, [facility] [place] [facility] [address] [id number] [place] [address] Dec, [facility] [place] [facility] [address] [id number] [place] [address] Dec, [facility] [place] [facility] [address] [id number], [place] [address] Dec, [facility] [place] [facility] [address] [id number] [place] [address] Dec, [facility] [place] [facility] [address] [id number], [place] [address] Nov, [facility] [place] [facility] [address] [id number], [place] [address] Oct, [facility] [place] [facility] [address] [id number], [place] [address] Oct, [facility] [place] [facility] [address] [id number] [place] [address] Oct, [facility] [place] [facility] [address] [id number], [place] [address] Oct, [facility] [place] [facility] [address] [id number] [place] [address] Sep, [facility] [place] [facility] [id number], [place] [address] Sep, [facility] [id number], [place] [address] Sep, [facility] [id number], [place] [address] Sep, [facility] [id number], [place] [address] Aug, [facility] [id number], [place] [address] Aug, [facility] [id number], [place] [address] Aug, [facility] [id number], [place] [address] Aug, [facility] [id number], [place] [address] Aug, [facility] [id number], [place] [address] July, [facility] [id number], [place] [address] July, [facility] [id number], [place] [address] July, [facility] [address] [id number], [place] [address] Dec, IMMUNIZATIONS No Known Immunizations SOCIAL HISTORY [...]
--- OUTSIDE RECORDS SUMMARY | 2018-10-24 12:35 | XMS REPORT ---
Author Author DIANN DAMON [facility] eClinical[employer] Address Unknown Phone Unavailable Care Team Providers Care Primer Supervisor Name Role Phone DIANN DAMON Unavailable Allergies No Known Allergies Problems Problem Type Condition Code Onset Dates Condition Status Problem Fibromyalgia M79.7 Active Problem Irritable bowel syndrome with diarrhea K58.0 Active Problem Epilepsy G40.909 Active Problem Lumbago M54.5 Active Problem Generalized anxiety disorder F41.1 Active Problem Interstitial cystitis N30.10 Active Problem Major depressive disorder F32.9 Active Problem Esophageal reflux K21.9 Active Medications No Known Medications Results No Known Results Summary Purpose eClinicalWorks Submission
--- OUTSIDE RECORDS SUMMARY | 2018-10-24 12:36 | XMS REPORT ---
Author Author NELSON DIANN [facility] Address [address] [place] [address] Care Team Providers Care Mind Reader Name Role Phone NELSONPRADEEP BURGOSHANY Unavailable PROBLEMS Type Condition ICD9-CM Code VJQ24-NV Code Onset Dates Condition Status SNOMED Code Problem Major depressive disorder F32.9 Active 851299511 Problem Fibromyalgia M79.7 Active 17610402 Problem Lumbago M54.5 Active 271221437 Problem Epilepsy G40.909 Active 33558067 Problem Esophageal reflux K21.9 Active 761299148 Problem Generalized anxiety disorder F41.1 Active 480156545 Problem Interstitial cystitis N30.10 Active 106502764 Problem Irritable bowel syndrome with diarrhea K58.0 Active 615399541 Problem Chronic obstructive pulmonary disease, unspecified COPD type J44.9 Active 24865621 Problem On antiepileptic therapy Z79.899 Active 157819787 Problem Irritable bowel syndrome without diarrhea K58.9 Active 40433970 Problem Tinnitus of both ears H93.13 Active 6897792456911 Problem Vitamin D deficiency E55.9 Active 53981249 ALLERGIES No Information ENCOUNTERS Encounter Location Date Diagnosis [facility] [id number] [place] [address] July, [facility] [id number] [place] [address] Jun, Fibromyalgia M79.7 [facility] [address] [address] May, [facility] [id number] [place] [address] May, [facility] [id number] [place] [address] May, Fibromyalgia M79.7 [facility] [id number] [place] [address] Mar, [facility] [id number] [place] [address] Mar, Epilepsy G40.909 ; Lumbago M54.5 ; Esophageal reflux K21.9 ; Fibromyalgia M79.7 ; Chronic obstructive pulmonary disease, unspecified COPD type J44.9 ; Vitamin D deficiency E55.9 ; Fluid level behind tympanic membrane of right ear H65.91 ; Irritable bowel syndrome with diarrhea K58.0 ; Hematochezia K92.1 and Generalized anxiety disorder F41.1 [facility] [address] [address] Mar, [facility] [id number] [place] [address] Mar, [facility] [address] [address] Mar, Vitamin D deficiency E55.9 [facility] [id number] [place] [address] Feb, [facility] [id number] [place] [address] Feb, [facility] [id number] [place] [address] Jan, Fibromyalgia M79.7 [facility] [id number] [place] [address] Jan, [facility] [id number] [place] [address] Jan, [facility] [id number] [place] [address] Jan, Vitamin D deficiency E55.9 [facility] [id number] [place] [address] Dec, [facility] [address] [place] [address] Dec, [place] [id number] [place] [address] Dec, Generalized anxiety disorder F41.1 [facility] [id number] [place] [address] Dec, Dysuria R30.0 ; Acute bilateral low back pain without sciatica M54.5 and Encounter for immunization Z23 [facility] [id number] [place] [address] Oct, [facility] [address] [address] Oct, Fibromyalgia M79.7 [facility] [id number] [place] [address] Sep, Dysuria R30.0 and Acute bronchitis, unspecified organism J20.9 [facility] [id number] [place] [address] Sep, [facility] [id number] [place] [address] Sep, Rectal prolapse K62.3 [facility] [id number] [place] [address] Sep, Chronic obstructive pulmonary disease, unspecified COPD type J44.9 [facility] [id number] [place] [id number] Aug, [facility] [id number] [place] [id number] Aug, [facility] [id number] [place] [address] Aug, Light headedness R42 ; On antiepileptic therapy Z79.899 ; Vitamin D deficiency E55.9 ; Screening for lipid disorders Z13.220 ; Dysuria R30.0 and Hemorrhoids, unspecified hemorrhoid type K64.9 [facility] [id number] [place] [address] Aug, Internal prolapsed hemorrhoids K64.8 [facility] [address] [address] July, [facility] [address] [address] May, [address] [address] May, Fever and chills R50.9 and Influenza B J10.[address] [address] Apr, [address] [address] Apr, Fibromyalgia M79.7 and Generalized anxiety disorder F41.[address] [address] Mar, Esophageal reflux K21.9 ; Generalized anxiety disorder F41.1 and Epilepsy G40.[address] [address] Mar, Epilepsy G40.909 ; Esophageal reflux K21.9 ; Fibromyalgia M79.7 ; Generalized anxiety disorder F41.1 ; Pain of left foot M79.672 ; Pain in right foot M79.671 ; Ear pain, right H92.01 ; Tinnitus of both ears H93.13 ; Chronic obstructive pulmonary disease, unspecified COPD type J44.9 ; Vitamin D deficiency E55.9 ; Screening for lipid disorders Z13.220 and On antiepileptic therapy Z79.[address] [address] Feb, [address] [address] Feb, [facility] [address] [address] Feb, Dysuria R30.0 and Plantar fasciitis of right foot M72.2 [facility] [id number] [place] [address] Feb, [facility] [id number] [place] [address] Feb, [facility] [id number] [place] [address] Jan, [facility] [id number] [place] [address] Jan, [facility] [id number] [place] [address] Dec, [facility] [id number] [place] [address] Dec, [facility] [id number] [place] [address] Dec, [facility] [id number] [place] [address] Nov, [facility] [id number] [place] [address] Sep, [facility] [id number] [place] [address] Aug, Shortness of breath R06.02 and Acute suppurative otitis media of right ear without spontaneous rupture of tympanic membrane, recurrence not specified H66.001 [facility] [id number] [place] [address] 14 Aug, 2015 Internal prolapsed hemorrhoids K64.8 [facility] [id number] [place] [address] 06 Jun, 2015 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 [facility] [id number] [place] [address] May, Fibromyalgia M79.7 ; Interstitial cystitis N30.10 ; Intractable migraine without aura and without status migrainosus G43.019 ; Low vitamin D level E55.9 and Ringing in right ear H93.11 [facility] [id number] [place] [address] May, [facility] [address] [address] May, Low vitamin D level E55.9 [facility] [address] [address] Apr, [place] [address] [address] Mar, [place] [facility] [address] [address] Mar, Acute suppurative otitis media of right ear without spontaneous rupture of tympanic membrane, recurrence not specified H66.001 ; Encounter for immunization Z23 ; Asthma with acute exacerbation, unspecified asthma severity J45.901 ; Memory problem R41.3 ; Acute pain of right knee M25.561 ; Chronic fatigue R53.82 and Excessive urinary volume R35.8 [facility] [id number] [place] [address] Feb, [facility] [id number] [place] [address] Feb, [place] [address] [address] Jan, [place] [address] [address] Nov, Esophageal reflux 530.81 ; Anxiety 300.00 and Tingling in extremities 782.0 [place] [id number] [place] [address] Oct, [place] [address] [address] Oct, [facility] [address], [place] [address] Oct, [facility] [id number] [place] [address] Oct, [facility] [id number] [place] [address] Oct, [facility] [id number] [place] [address] Sep, Other chronic allergic conjunctivitis 372.14 ; Irritable bowel syndrome 564.1 ; 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 ; Fibromyalgia 729.1 ; Extremity pain 729.5 and Neck pain 723.1 [facility] [address] [place] [address] Sep, [facility] [id number] [place] [address] Aug, [facility] [id number] [place] [address] Aug, [facility] [id number] [place] [address] July, Vomiting 787.03 [facility] [address] [id number] July, Dental examination V72.2 [facility] [id number] [place] [address] Jun, [facility] [id number] [place] [address] Jun, [facility] [id number] [place] [address] May, [facility] [id number] [place] [address] May, [facility] [id number] [place] [address] May, [facility] [place] [facility] [address] [id number] [place] [address] May, [facility] [place] [facility] [address] [id number] [place] [address] May, [facility] [place] [facility] [address] [facility] [id number] [place] [address] May, [facility] [place] [facility] [address] [facility] [id number] [place] [address] May, [facility] [place] [facility] [address] [id number] [place] [address] May, [facility] [place] [facility] [address] [facility] [id number] [place] [address] May, [facility] [place] [facility] [address] [facility] [id number] [place] [address] Apr, [facility] [place] [facility] [address] [facility] [id number] [place] [address] Apr, [facility] [place] [facility] [address] [facility] [id number] [place] [address] Apr, [facility] [place] [facility] [address] [facility] [id number] [place] [address] Apr, [facility] [place] [facility] [address] [facility] [id number] [place] [address] Apr, [facility] [place] [facility] [address] [facility] [id number], [place] [address] Apr, [facility] [place] [facility] [address] [facility] [id number], [place] [address] Mar, [facility] [place] [facility] [address] [facility] [id number], [place] [address] Mar, [facility] [place] [facility] [address] [facility] [id number], [place] [address] Mar, [facility] [place] [facility] [address] [id number] [place] [address] Mar, [facility] [place] [facility] [address] [id number] [place] [address] Mar, [facility] [place] [facility] [address] [id number] [place] [address] Mar, [facility] [place] [facility] [address] [id number] [place] [address] Mar, [facility] [place] [facility] [address] [id number] [place] [address] Mar, [facility] [place] [facility] [address] [id number] [place] [address] Mar, [facility] [place] [facility] [address] [id number] [place] [address] Mar, [facility] [place] [facility] [address] [id number] [place] [address] Mar, [facility] [place] [facility] [address] [id number] [place] [address] Mar, [facility] [place] [facility] [address] [id number] [place] [address] Mar, [facility] [place] [facility] [address] [id number] [place] [address] Mar, [facility] [place] [facility] [address] [id number] [place] [address] Mar, [facility] [place] [facility] [address] [id number] [place] [address] Mar, [facility] [place] [facility] [address] [id number] [place] [address] Mar, [facility] [place] [facility] [address] [id number] [place] [address] Mar, [facility] [place] [facility] [address] [id number] [place] [address] Mar, [facility] [place] [facility] [address] [id number] [place] [address] 18 Feb, 2014 [facility] [place] [facility] [address] [id number] [place] [address] 18 Feb, 2014 [facility] [place] [facility] [address] [id number] [place] [address] Feb, [facility] [place] [facility] [address] [id number] [place] [address] Feb, [facility] [place] [facility] [address] [id number] [place] [address] Jan, [facility] [place] [facility] [address] [id number] [place] [address] 20 Jan, 2014 [facility] [place] [facility] [address] [id number] [place] [address] 14 Jan, 2014 [facility] [place] [facility] [address] [id number] [place] [address] 14 Jan, 2014 [facility] [place] [facility] [address] [id number] [place] [address] 14 Jan, 2014 [facility] [place] [facility] [address] [id number] [place] [address] 14 Jan, 2014 [facility] [place] [facility] [address] [id number], [place] [address] 07 Jan, 2014 [facility] [place] [facility] [address] [id number], [place] [address] 07 Jan, 2014 [facility] [place] [facility] [address] [id number] [place] [address] 20 Dec, 2013 [facility] [place] [facility] [address] [id number] [place] [address] 20 Dec, 2013 [facility] [place] [facility] [address] [id number] [place] [address] 17 Dec, 2013 [facility] [place] [facility] [address] [id number] [place] [address] 17 Dec, 2013 [facility] [place] [facility] [address] [id number] [place] [address] 22 Nov, 2013 [facility] [place] [facility] [address] [id number] [place] [address] 22 Nov, 2013 [facility] [place] [facility] [address] [id number] [place] [address] 08 Nov, 2013 [facility] [place] [facility] [address] [id number] [place] [address] 08 Nov, 2013 [facility] [place] [facility] [address] [id number] [place] [address] 05 Nov, 2013 [facility] [place] [facility] [address] [id number] [place] [address] 05 Nov, 2013 [facility] [place] [facility] [address] [id number] [place] [address] 04 Nov, 2013 [facility] [place] [facility] [address] [id number] [place] [address] 04 Nov, 2013 [facility] [place] [facility] [address] [id number] [place] [address] 03 Nov, 2013 [facility] [place] [facility] [address] [id number] [place] [address] 03 Nov, 2013 [facility] [place] [facility] [address] [id number] [place] [address] 15 Oct, 2013 [facility] [place] [facility] [address] [id number] [place] [address] 15 Oct, 2013 [facility] [place] [facility] [address] [id number] [place] [address] 14 Sep, 2013 [facility] [place] [facility] [address] [id number] [place] [address] 14 Sep, 2013 [facility] [place] [facility] [address] [id number] [place] [address] Sep, [facility] [place] [facility] [address] [id number] [place] [address] Sep, [facility] [place] [facility] [address] [id number] [place] [address] Sep, [facility] [place] [facility] [address] [id number] [place] [address] Sep, [facility] [place] [facility] [address] [id number] [place] [address] Aug, [facility] [place] [facility] [address] [id number] [place] [address] Aug, [facility] [place] [facility] [address] [id number] [place] [address] Aug, [facility] [place] [facility] [address] [id number] [place] [address] Aug, [facility] [place] [facility] [address] [id number] [place] [address] Aug, [facility] [place] [facility] [address] [id number] [place] [address] Aug, [facility] [place] [facility] [address] [id number] [place] [address] July, [facility] [place] [facility] [address] [id number] [place] [address] July, [facility] [place] [facility] [address] [id number] [place] [address] July, [facility] [place] [facility] [address] [id number] [place] [address] July, [facility] [place] [facility] [address] [id number] [place] [address] July, [facility] [place] [facility] [address] [id number] [place] [address] July, [facility] [place] [facility] [address] [id number] [place] [address] Jun, [facility] [place] [facility] [address] [id number] [place] [address] Jun, [facility] [place] [facility] [address] [id number] [place] [address] Jun, [facility] [place] [facility] [address] [id number] [place] [address] Jun, [facility] [place] [facility] [address] [id number] [place] [address] May, [facility] [place] [facility] [address] [id number] [place] [address] May, [facility] [place] [facility] [address] [id number] [place] [address] Apr, [facility] [place] [facility] [address] [facility] [id number] [place] [address] Apr, [facility] [place] [facility] [address] [id number] [place] [address] Apr, [facility] [place] [facility] [address] [id number] [place] [address] Apr, [facility] [place] [facility] [address] [facility] [id number] [place] [address] Mar, [facility] [place] [facility] [address] [facility] [id number] [place] [address] Mar, [facility] [place] [facility] [address] [id number], [place] [address] Mar, [facility] [place] [facility] [address] [id number] [place] [address] Mar, [facility] [place] [facility] [address] [id number] [place] [address] Mar, [facility] [place] [facility] [address] [facility] [id number], [place] [address] Mar, [facility] [place] [facility] [address] [id number] [place] [address] Feb, [facility] [place] [facility] [address] [id number] [place] [address] Feb, [facility] [place] [facility] [address] [id number] [place] [address] Jan, [facility] [place] [facility] [address] [id number] [place] [address] Jan, [facility] [place] [facility] [address] [id number] [place] [address] Jan, [facility] [place] [facility] [address] [id number] [place] [address] Jan, [facility] [place] [facility] [address] [id number] [place] [address] Nov, [facility] [place] [facility] [address] [id number] [place] [address] Nov, [facility] [place] [facility] [address] [id number] [place] [address] Oct, [facility] [place] [facility] [address] [id number] [place] [address] Oct, [facility] [place] [facility] [address] [id number] [place] [address] Sep, [facility] [place] [facility] [address] [id number] [place] [address] Sep, [facility] [place] [facility] [address] [id number] [place] [address] Sep, [facility] [place] [facility] [address] [id number] [place] [address] Aug, [facility] [place] [facility] [address] [id number] [place] [address] Aug, [facility] [place] [facility] [address] [id number] [place] [address] Aug, [facility] [address] [id number] [place] [address] Aug, [facility] [place] [facility] [address] [id number] [place] [address] July, [facility] [place] [facility] [address] [id number] [place] [address] July, [facility] [place] [facility] [address] [id number] [place] [address] July, [facility] [place] [facility] [address] [id number] [place] [address] July, [facility] [place] [facility] [address] [id number] [place] [address] Jun, [facility] [place] [facility] [address] [id number] [place] [address] Jun, [facility] [place] [facility] [address] [id number] [place] [address] Jun, [facility] [place] [facility] [address] [id number] [place] [address] May, [facility] [place] [facility] [address] [id number] [place] [address] May, [facility] [place] [facility] [address] [id number] [place] [address] Apr, [facility] [place] [facility] [address] [id number] [place] [address] Apr, [facility] [place] [facility] [address] [id number] [place] [address] Apr, [facility] [place] [facility] [address] [id number] [place] [address] Apr, [facility] [place] [facility] [address] [id number] [place] [address] Mar, [facility] [place] [facility] [address] [id number] [place] [address] 11 Mar, 2012 [facility] [address] [id number] [place] [address] Mar, [facility] [place] [facility] [address] [id number] [place] [address] Mar, [facility] [address] [id number] [place] [address] Feb, [facility] [place] [facility] [address] [id number] [place] [address] Feb, [facility] [place] [facility] [address] [id number] [place] [address] Feb, [facility] [place] [facility] [address] [id number] [place] [address] Feb, [facility] [place] [facility] [address] [id number] [place] [address] Feb, [facility] [address] [id number] [place] [address] Feb, [facility] [place] [facility] [address] [id number] [place] [address] Feb, [facility] [place] [facility] [address] [id number] [place] [address] Feb, [facility] [place] [facility] [address] [id number] [place] [address] Jan, [facility] [place] [facility] [address] [id number] [place] [address] 28 Jan, 2012 [facility] [place] [facility] [address] [id number] [place] [address] 15 Jan, 2012 [facility] [place] [facility] [address] [id number] [place] [address] 15 Jan, 2012 [facility] [place] [facility] [address] [id number] [place] [address] 14 Jan, 2012 [facility] [place] [facility] [address] [id number] [place] [id number] 13 Jan, 2012 [facility] [place] [facility] [address] [id number] [place] [address] 13 Jan, 2012 [facility] [place] [facility] [address] [id number] [place] [address] Jan, [facility] [place] [facility] [address] [id number] [place] [address] Jan, [facility] [place] [facility] [address] [id number] [place] [address] Jan, [facility] [place] [facility] [address] [id number] [place] [address] Jan, [facility] [place] [facility] [address] [facility] [id number] [place] [address] Dec, [facility] [place] [facility] [address] [id number], [place] [address] 31 Dec, 2011 [facility] [place] [facility] [address] [id number] [place] [address] Dec, [facility] [place] [facility] [address] [id number], [place] [address] 29 Dec, 2011 [facility] [place] [facility] [address] [id number], [place] [address] 29 Dec, 2011 [facility] [place] [facility] [address] [id number], [place] [address] 29 Dec, 2011 [facility] [place] [facility] [address] [id number] [place] [address] Dec, [facility] [place] [facility] [address] [id number], [place] [address] 19 Dec, 2011 [facility] [place] [facility] [address] [facility] [id number], [place] [address] 15 Dec, 2011 [facility] [place] [facility] [address] [id number] [place] [address] Dec, [facility] [place] [facility] [address] [id number] [place] [address] Dec, [facility] [place] [facility] [address] [id number] [place] [address] Dec, [facility] [place] [facility] [address] [id number] [place] [address] Nov, [facility] [place] [facility] [address] [id number] [place] [address] Oct, [facility] [place] [facility] [address] [id number] [place] [address] Oct, [facility] [place] [facility] [address] [id number] [place] [address] Oct, [facility] [place] [facility] [address] [id number] [place] [address] Oct, [facility] [place] [facility] [address] [id number] [place] [address] Sep, [facility] [place] [facility] [address] [id number] [place] [address] Sep, [facility] [place] [facility] [address] [facility] [id number] [place] [address] Sep, [facility] [place] [facility] [address] [id number] [place] [address] Sep, [facility] [place] [facility] [address] [id number] [place] [address] Aug, [facility] [place] [facility] [address] [id number] [place] [address] Aug, [facility] [place] [facility] [address] [id number] [place] [address] Aug, [facility] [place] [facility] [address] [facility] [id number] [place] [address] Aug, [facility] [place] [facility] [address] [facility] [id number], [place] [address] Aug, [facility] [address] [facility] [id number], [place] [address] July, [facility] [address] [facility] [id number], [place] [address] July, [facility] [address] [facility] [id number], [place] [address] July, [facility] [address] [facility] [id number], [place] [address] Dec, IMMUNIZATIONS No Known Immunizations SOCIAL HISTORY Never Assessed REASON FOR VISIT Requests Return Call PLAN OF CARE VITAL SIGNS MEDICATIONS Unknown [...]
--- OUTSIDE RECORDS SUMMARY | 2018-10-24 12:37 | XMS REPORT ---
Author Author NELSON DIANN [facility] Address [address] [place] [address] Care Team Providers Care Shift Coordinator Name Role Phone NELSONPRADEEP BURGOSHANY Unavailable PROBLEMS Type Condition ICD9-CM Code RCY37-IB Code Onset Dates Condition Status SNOMED Code Problem Lumbago M54.5 Active 048598370 Problem Irritable bowel syndrome without diarrhea K58.9 Active 96982973 Problem Fibromyalgia M79.7 Active 62531673 Problem COPD exacerbation J44.1 Active 276906363 Problem Irritable bowel syndrome with diarrhea K58.0 Active 540054446 Problem Vitamin D deficiency E55.9 Active 18728011 Problem On antiepileptic therapy Z79.899 Active 272219439 Problem Chronic obstructive pulmonary disease, unspecified COPD type J44.9 Active 58857069 Problem Tinnitus of both ears H93.13 Active [id number] Problem Esophageal reflux K21.9 Active 284475409 Problem Generalized anxiety disorder F41.1 Active 218399202 Problem Interstitial cystitis N30.10 Active 714282587 Problem Epilepsy G40.909 Active 60519557 Problem Major depressive disorder F32.9 Active 051333974 ALLERGIES No Information ENCOUNTERS Encounter Location Date Diagnosis [place] [id number] [place] [address] July, [facility] [address] [place] [address] Jun, [facility] [address] [place] [id number] [place] [address] Jun, Chronic obstructive pulmonary disease, unspecified COPD type J44.9 ; COPD exacerbation J44.1 and Sore throat J02.9 [facility] [address] [address] Jun, Fibromyalgia M79.7 [place] [address] [place] [id number] [place] [address] Jun, Fibromyalgia M79.7 [facility] [address] [address] [id number] [place] [address] May, [facility] [id number] [place] [address] May, [facility] [address] [address] May, Fibromyalgia M79.7 [facility] [address] [place] [id number] [place] [address] Mar, [facility] [address] [place] [id number] [place] [address] Mar, Epilepsy G40.909 ; Lumbago M54.5 ; Esophageal reflux K21.9 ; Fibromyalgia M79.7 ; Chronic obstructive pulmonary disease, unspecified COPD type J44.9 ; Vitamin D deficiency E55.9 ; Fluid level behind tympanic membrane of right ear H65.91 ; Irritable bowel syndrome with diarrhea K58.0 ; Hematochezia K92.1 and Generalized anxiety disorder F41.1 [place] [address] [place] [id number] [place] [address] Mar, [place] [address] [place] [id number] [place] [address] Mar, [facility] [address] [place] [address] [id number] [place] [address] Mar, Vitamin D deficiency E55.9 [facility] [address] [place] [address] [id number] [place] [address] Feb, [facility] [address] [place] [id number] [place] [address] Feb, [facility] [address] [place] [id number] [place] [address] Jan, Fibromyalgia M79.7 [facility] [address] [place] [address] [id number] [place] [address] Jan, [facility] [address] [address] Jan, [facility] [address] [place] [id number] [place] [address] Jan, Vitamin D deficiency E55.9 [facility] [address] [address] Dec, [facility] [address] [place] [address] [id number] [place] [address] Dec, [facility] [address] [address] Dec, Generalized anxiety disorder F41.1 [place] [address] [address] Dec, Dysuria R30.0 ; Acute bilateral low back pain without sciatica M54.5 and Encounter for immunization Z23 [facility] [address] [place] [id number] [place] [address] Oct, [facility] [address] [address] Oct, Fibromyalgia M79.7 [facility] [address] [place] [id number] [place] [address] Sep, Dysuria R30.0 and Acute bronchitis, unspecified organism J20.9 [facility] [address] [place] [id number] [place] [address] Sep, [facility] [address] [address] Sep, Rectal prolapse K62.3 [facility] [address] [place] [id number] [place] [address] Sep, Chronic obstructive pulmonary disease, unspecified COPD type J44.9 [facility] [address] [place] [id number] Aug, [facility] [address] [id number] Aug, [place] [address] [place] [id number] [place] [address] Aug, Light headedness R42 ; On antiepileptic therapy Z79.899 ; Vitamin D deficiency E55.9 ; Screening for lipid disorders Z13.220 ; Dysuria R30.0 and Hemorrhoids, unspecified hemorrhoid type K64.9 [place] [address] [place] [id number] [place] [address] Aug, Internal prolapsed hemorrhoids K64.8 [place] [address] [address] July, [place] [address] [address] May, [place] [address] [place] [id number] [place] [address] May, Fever and chills R50.9 and Influenza B J10.1 [place] [address] [place] [id number] [place] [address] Apr, [place] [address] [place] [id number] [place] [address] Apr, Fibromyalgia M79.7 and Generalized anxiety disorder F41.1 [place] [address] [place] [id number] [place] [address] Mar, Esophageal reflux K21.9 ; Generalized anxiety disorder F41.1 and Epilepsy G40.909 [place] [address] [place] [id number] [place] [address] Mar, Epilepsy G40.909 ; Esophageal reflux K21.9 [...] Z13.220 and On antiepileptic therapy Z79.899 [facility] [address] [place] [id number] [place] [address] Feb, [facility] [address] [place] [address] [id number] [place] [address] Feb, [facility] [address] [place] [id number] [place] [address] Feb, Dysuria R30.0 and Plantar fasciitis of right foot M72.2 [facility] [address] [place] [id number] [place] [address] Feb, [facility] [address] [place] [id number] [place] [address] Feb, [facility] [address] [place] [id number] [place] [address] Jan, [facility] [address] [place] [address] [id number] [place] [address] Jan, [facility] [address] [place] [id number] [place] [address] Dec, [facility] [address] [place] [id number] [place] [address] Dec, [facility] [address] [place] [id number] [place] [address] Dec, [facility] [address] [place] [id number] [place] [address] Nov, [facility] [address] [place] [id number] [place] [address] Sep, [facility] [address] [place] [id number] [place] [address] Aug, Shortness of breath R06.02 and Acute suppurative otitis media of right ear without spontaneous rupture of tympanic membrane, recurrence not specified H66.001 [place] [address] [place] [id number] [place] [address] 14 Aug, 2015 Internal prolapsed hemorrhoids K64.8 [place] [address] [place] [id number] [place] [address] 06 Jun, 2015 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 [place] [address] [address] May, Fibromyalgia M79.7 ; Interstitial cystitis N30.10 ; Intractable migraine without aura and without status migrainosus G43.019 ; Low vitamin D level E55.9 and Ringing in right ear H93.11 [place] [address] [address] May, [place] [address] [address] May, Low vitamin D level E55.9 [place] [address] [address] Apr, [place] [address] [place] [id number] [place] [address] Mar, [place] [address] [place] [id number] [place] [address] Mar, Acute suppurative otitis media of right ear without spontaneous rupture of tympanic membrane, recurrence not specified H66.001 ; Encounter for immunization Z23 ; Asthma with acute exacerbation, unspecified asthma severity J45.901 ; Memory problem R41.3 ; Acute pain of right knee M25.561 ; Chronic fatigue R53.82 and Excessive urinary volume R35.8 [place] [address] [place] [id number] [place] [address] Feb, [place] [address] [address] Feb, [place] [address] [address] Jan, [facility] [address] [place] [id number] [place] [address] Nov, Esophageal reflux 530.81 ; Anxiety 300.00 and Tingling in extremities 782.0 [facility] [address] [place] [id number] [place] [address] Oct, [facility] [address] [place] [id number] [place] [address] Oct, [facility] [address] [place] [id number] [place] [address] Oct, [facility] [address] [place] [id number] [place] [address] Oct, [facility] [address] [place] [id number] [place] [address] Oct, [facility] [address] [place] [address] Sep, Other chronic allergic conjunctivitis 372.14 ; Irritable bowel syndrome 564.1 ; 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 ; Fibromyalgia 729.1 ; Extremity pain 729.5 and Neck pain 723.1 [facility] [address] [address] Sep, [facility] [address] [place] [id number] [place] [address] Aug, [facility] [address] [place] [address] Aug, [facility] [address] [place] [id number] [place] [address] July, Vomiting 787.03 [facility] [address] [id number] July, Dental examination V72.2 [facility] [address] [place] [id number] [place] [address] 14 Jun, 2014 [facility] [place] [facility] [address] [id number] [place] [address] 13 Jun, 2014 [facility] [place] [facility] [address] [id number] [place] [address] 27 May, 2014 [facility] [place] [facility] [address] [id number] [place] [address] 27 May, 2014 [facility] [place] [facility] [address] [id number] [place] [address] 16 May, 2014 [facility] [place] [facility] [address] [id number] [place] [address] 16 May, 2014 [facility] [place] [facility] [address] [id number] [place] [address] 05 May, 2014 [facility] [place] [facility] [address] [id number] [place] [address] 05 May, 2014 [facility] [place] [facility] [address] [id number] [place] [address] May, [facility] [place] [facility] [address] [id number] [place] [address] 03 May, 2014 [facility] [place] [facility] [address] [id number] [place] [address] 02 May, 2014 [facility] [place] [facility] [address] [id number] [place] [address] 11 Apr, 2014 [facility] [place] [facility] [address] [id number] [place] [address] 11 Apr, 2014 [facility] [place] [facility] [address] [id number] [place] [address] 11 Apr, 2014 [facility] [place] [facility] [address] [id number] [place] [address] 11 Apr, 2014 [facility] [place] [facility] [address] [id number] [place] [address] Apr, [facility] [place] [facility] [address] [id number] [place] [address] Apr, [facility] [place] [facility] [address] [id number] [place] [address] Mar, [facility] [place] [facility] [address] [id number] [place] [address] Mar, [facility] [place] [facility] [address] [id number], [place] [address] Mar, [facility] [place] [facility] [address] [id number] [place] [address] Mar, [facility] [place] [facility] [address] [id number] [place] [address] Mar, [facility] [place] [facility] [address] [id number] [place] [address] Mar, [facility] [place] [facility] [address] [id number], [place] [address] Mar, [facility] [place] [facility] [address] [id number], [place] [address] Mar, [facility] [place] [facility] [address] [id number] [place] [address] Mar, [facility] [place] [facility] [address] [id number], [place] [address] Mar, [facility] [place] [facility] [address] [id number], [place] [address] Mar, [facility] [place] [facility] [address] [id number], [place] [address] Mar, [facility] [place] [facility] [address] [id number], [place] [address] Mar, [facility] [place] [facility] [address] [id number], [place] [address] Mar, [facility] [place] [facility] [address] [id number] [place] [address] 15 Mar, 2014 [facility] [address] [id number] [place] [address] 15 Mar, 2014 [facility] [place] [facility] [address] [id number] [place] [address] 15 Mar, 2014 [facility] [address] [id number] [place] [address] 09 Mar, 2014 [facility] [place] [facility] [address] [id number] [place] [address] 09 Mar, 2014 [facility] [address] [id number] [place] [address] 18 Feb, 2014 [facility] [address] [id number] [place] [address] 18 Feb, [address] [facility] [address] [id number] [place] [address] Feb, [facility] [address] [id number] [place] [address] 11 Feb, 2014 [facility] [place] [facility] [address] [id number] [place] [address] 20 Jan, 2014 [facility] [address] [id number] [place] [address] 20 Jan, 2014 [facility] [place] [facility] [address] [id number] [place] [address] 14 Jan, 2014 [facility] [place] [facility] [address] [id number] [place] [address] 14 Jan, 2014 [facility] [place] [facility] [address] [id number] [place] [address] 14 Jan, 2014 [facility] [place] [facility] [address] [id number] [place] [address] 14 Jan, 2014 [facility] [place] [facility] [address] [id number] [place] [address] Jan, [facility] [place] [facility] [address] [id number] [place] [address] 07 Jan, 2014 [facility] [place] [facility] [address] [id number] [place] [address] Dec, [facility] [place] [facility] [address] [id number] [place] [address] Dec, [facility] [place] [facility] [address] [id number] [place] [address] Dec, [facility] [place] [facility] [address] [id number] [place] [address] 17 Dec, 2013 [facility] [place] [facility] [address] [id number] [place] [address] 22 Nov, 2013 [facility] [place] [facility] [address] [id number] [place] [address] 22 Sep, 2013 [facility] [place] [facility] [address] [id number] [place] [address] 08 Sep, 2013 [facility] [place] [facility] [address] [id number] [place] [address] 08 Sep, 2013 [facility] [place] [facility] [address] [id number], [place] [address] 05 Sep, 2013 [facility] [place] [facility] [address] [id number], [place] [address] 05 Sep, 2013 [facility] [place] [facility] [address] [id number], [place] [address] 04 Sep, 2013 [facility] [place] [facility] [address] [id number] [place] [address] 04 Sep, 2013 [facility] [place] [facility] [address] [id number] [place] [address] 03 Sep, 2013 [facility] [place] [facility] [address] [id number], [place] [address] 03 Sep, 2013 [facility] [place] [facility] [address] [id number], [place] [address] Oct, [facility] [place] [facility] [address] [id number] [place] [address] Oct, [facility] [place] [facility] [address] [id number] [place] [address] Sep, [facility] [place] [facility] [address] [id number] [place] [address] Sep, [facility] [place] [facility] [address] [id number] [place] [address] Sep, [facility] [place] [facility] [address] [id number] [place] [address] Sep, [facility] [place] [facility] [address] [id number] [place] [address] Sep, [facility] [place] [facility] [address] [id number] [place] [address] Sep, [facility] [place] [facility] [address] [id number] [place] [address] Aug, [facility] [place] [facility] [address] [id number] [place] [address] Aug, [facility] [place] [facility] [address] [id number] [place] [address] Aug, [facility] [place] [facility] [address] [id number] [place] [address] Aug, [facility] [place] [facility] [address] [id number] [place] [address] Aug, [facility] [place] [facility] [address] [id number] [place] [address] Aug, [facility] [place] [facility] [address] [id number] [place] [address] July, [facility] [place] [facility] [address] [id number] [place] [address] July, [facility] [place] [facility] [address] [id number] [place] [address] July, [facility] [place] [facility] [address] [id number] [place] [address] July, [facility] [place] [facility] [address] [id number] [place] [address] July, [facility] [place] [facility] [address] [id number] [place] [address] July, [facility] [place] [facility] [address] [id number] [place] [address] Jun, [facility] [place] [facility] [address] [id number] [place] [address] Jun, [facility] [place] [facility] [address] [id number] [place] [address] Jun, [facility] [place] [facility] [address] [id number] [place] [address] Jun, [facility] [place] [facility] [address] [id number] [place] [address] May, [facility] [place] [facility] [address] [id number] [place] [address] May, [facility] [place] [facility] [address] [id number] [place] [address] Apr, [facility] [place] [facility] [address] [id number] [place] [address] Apr, [facility] [place] [facility] [address] [id number] [place] [address] Apr, [facility] [place] [facility] [address] [id number] [place] [address] Apr, [facility] [place] [facility] [address] [id number] [place] [address] Mar, [facility] [place] [facility] [address] [id number] [place] [address] Mar, [facility] [place] [facility] [address] [id number] [place] [address] Mar, [facility] [place] [facility] [address] [id number] [place] [address] Mar, [facility] [place] [facility] [address] [id number] [place] [address] Mar, [facility] [place] [facility] [address] [id number] [place] [address] Mar, [facility] [place] [facility] [address] [id number] [place] [address] Feb, [facility] [place] [facility] [address] [id number] [place] [address] Feb, [facility] [place] [facility] [address] [id number] [place] [address] Jan, [facility] [place] [facility] [address] [id number] [place] [address] Jan, [facility] [place] [facility] [address] [id number] [place] [address] Jan, [facility] [place] [facility] [address] [id number] [place] [address] Jan, [facility] [place] [facility] [address] [id number] [place] [address] Nov, [facility] [place] [facility] [address] [id number] [place] [address] Nov, [facility] [place] [facility] [address] [id number] [place] [address] Oct, [facility] [place] [facility] [address] [id number] [place] [address] Oct, [facility] [place] [facility] [address] [id number] [place] [address] Sep, [facility] [place] [facility] [address] [id number] [place] [address] Sep, [facility] [address] [id number] [place] [address] Sep, [facility] [address] [id number] [place] [address] Aug, [facility] [address] [id number] [place] [address] Aug, [facility] [address] [id number] [place] [address] Aug, [facility] [address] [id number] [place] [address] Aug, [facility] [address] [id number] [place] [address] July, [facility] [address] [id number] [place] [address] July, [facility] [address] [id number] [place] [address] July, [facility] [address] [id number] [place] [address] July, [facility] [address] [id number] [place] [address] Jun, [facility] [address] [id number] [place] [address] Jun, [facility] [address] [id number] [place] [address] Jun, [facility] [address] [id number] [place] [address] May, [facility] [address] [id number] [place] [address] May, [facility] [address] [id number] [place] [address] Apr, [facility] [address] [id number] [place] [address] Apr, [facility] [place] [facility] [address] [id number] [place] [address] Apr, [facility] [place] [facility] [address] [id number] [place] [address] Apr, [facility] [place] [facility] [address] [id number] [place] [address] Mar, [facility] [address] [id number] [place] [address] Mar, [facility] [address] [id number] [place] [address] Mar, [facility] [address] [facility] [place] [id number] [place] [address] Mar, [facility] [address] [id number] [place] [address] Feb, [facility] [address] [id number] [place] [address] Feb, [facility] [place] [facility] [address] [id number] [place] [address] Feb, [facility] [place] [facility] [address] [id number] [address] Feb, [facility] [place] [facility] [address] [id number], [place] [address] Feb, [facility] [place] [facility] [address] [id number] [place] [address] Feb, [facility] [place] [facility] [address] [id number] [place] [address] Feb, [facility] [place] [facility] [address] [facility] [place] [id number] [place] [address] Feb, [facility] [place] [facility] [address] [id number] [place] [address] 28 Jan, 2012 [facility] [place] [facility] [address] [id number] [place] [address] 28 Jan, 2012 [facility] [place] [facility] [address] [id number] [place] [address] 15 Jan, 2012 [facility] [place] [facility] [address] [id number] [place] [address] 15 Jan, 2012 [facility] [place] [facility] [address] [id number] [place] [address] 14 Jan, 2012 [facility] [place] [facility] [address] [id number] [place] [address] 13 Jan, 2012 [facility] [place] [facility] [address] [id number] [place] [address] Jan, [facility] [place] [facility] [address] [id number] [place] [address] Jan, [facility] [place] [facility] [address] [id number] [place] [address] Jan, [facility] [place] [facility] [address] [id number] [place] [address] Jan, [facility] [place] [facility] [address] [facility] [place] [id number] [place] [address] Jan, [facility] [place] [facility] [address] [id number] [place] [address] Dec, [facility] [place] [facility] [address] [id number] [place] [address] Dec, [facility] [place] [facility] [address] [id number] [place] [address] Dec, [facility] [place] [facility] [address] [id number] [place] [address] Dec, [facility] [place] [facility] [address] [id number] [address] 29 Dec, 2011 [facility] [place] [facility] [address] [id number] [place] [address] Dec, [facility] [place] [facility] [address] [id number] [place] [address] Dec, [facility] [place] [facility] [address] [id number] [place] [address] Dec, [facility] [place] [facility] [address] [id number] [place] [address] Dec, [facility] [place] [facility] [address] [id number] [place] [address] Dec, [facility] [place] [facility] [address] [id number] [place] [address] Dec, [facility] [place] [facility] [address] [id number] [place] [address] Dec, [facility] [place] [facility] [address] [id number] [place] [address] Nov, [facility] [place] [facility] [address] [id number] [place] [address] Oct, [facility] [place] [facility] [address] [id number] [place] [address] Oct, [facility] [place] [facility] [address] [id number] [place] [address] Oct, [facility] [place] [facility] [address] [id number] [place] [address] Oct, [facility] [place] [facility] [address] [id number] [place] [address] Sep, [facility] [place] [facility] [address] [id number] [place] [address] Sep, [facility] [place] [facility] [address] [id number] [place] [address] Sep, [facility] [place] [facility] [address] [id number], [place] [address] Sep, [facility] [address] [id number] [address] Aug, [facility] [id number] [address] Aug, [facility] [id number] [address] Aug, [facility] [id number], [place] [address] Aug, [facility] [id number] [address] Aug, [facility] [id number], [place] [address] July, [facility] [id number], [place] [address] July, [facility] [id number], [place] [address] July, [facility] [address] [id number] [address] Dec, IMMUNIZATIONS No Known Immunizations SOCIAL HISTORY [...]
--- OUTSIDE RECORDS SUMMARY | 2018-10-24 12:37 | XMS REPORT ---
Author Author NELSON DIANN [facility] Address [address] [place] [address] Care Team Providers Care Process Description Writer Name Role Phone NELSONPRADEEP BURGOSHANY Unavailable PROBLEMS Type Condition ICD9-CM Code BEY80-MW Code Onset Dates Condition Status SNOMED Code Problem Fibromyalgia M79.7 Active 11439207 Problem Vitamin D deficiency E55.9 Active 62586920 Problem Irritable bowel syndrome without diarrhea K58.9 Active 65327104 Problem COPD exacerbation J44.1 Active 879544977 Problem Menopausal symptoms N95.1 Active 16818709 Problem Tinnitus of both ears H93.13 Active 6163918806722 Problem On antiepileptic therapy Z79.899 Active 398845840 Problem Irritable bowel syndrome with diarrhea K58.0 Active 244477099 Problem Chronic obstructive pulmonary disease, unspecified COPD type J44.9 Active 66242100 Problem Esophageal reflux K21.9 Active 785768260 Problem Interstitial cystitis N30.10 Active 421907923 Problem Generalized anxiety disorder F41.1 Active 975318943 Problem Major depressive disorder F32.9 Active 067556267 Problem Epilepsy G40.909 Active 79471010 Problem Lumbago M54.5 Active 181260403 ALLERGIES No Information ENCOUNTERS Encounter Location Date Diagnosis [facility] [place] [id number], [place] [address] Sep, [facility] [address] [facility] [id number] [id number] Aug, [facility] [place] [id number] [place] [address] Aug, [facility] [place] [address], [place] [address] July, [facility] [place] [id number] [place] [address] July, [facility] [place] [address], [place] [address] July, Chronic obstructive pulmonary disease, unspecified COPD type J44.9 [facility] [place] [id number] [place] [address] July, [facility] [place] [id number] [place] [address] July, [facility] [place] [id number] [place] [address] July, Interstitial cystitis N30.10 ; Fibromyalgia M79.7 [...] Dysuria R30.0 and Generalized anxiety disorder F41.1 [facility] [place] [id number] [place] [address] Jun, [facility] [place] [id number] [place] [address] Jun, Chronic obstructive pulmonary disease, unspecified COPD type J44.9 ; COPD exacerbation J44.1 and Sore throat J02.9 [facility] [place] [id number] [place] [address] Jun, Fibromyalgia M79.7 [facility] [place] [id number] [place] [address] Jun, Fibromyalgia M79.7 [facility] [place] [id number] [place] [address] May, [facility] [place] [id number] [place] [address] May, [facility] [place] [id number] [place] [address] May, Fibromyalgia M79.7 [facility] [place] [id number] [place] [address] Mar, [facility] [place] [id number] [place] [address] Mar, Epilepsy G40.909 ; Lumbago M54.5 ; Esophageal reflux K21.9 ; Fibromyalgia M79.7 ; Chronic obstructive pulmonary disease, unspecified COPD type J44.9 ; Vitamin D deficiency E55.9 ; Fluid level behind tympanic membrane of right ear H65.91 ; Irritable bowel syndrome with diarrhea K58.0 ; Hematochezia K92.1 and Generalized anxiety disorder F41.1 [facility] [place] [id number] [place] [address] Mar, [facility] [place] [address] [address] Mar, [facility] [place] [id number] [place] [address] Mar, Vitamin D deficiency E55.9 [facility] [place] [id number] [place] [address] Feb, [facility] [place] [id number] [place] [address] Feb, [facility] [place] [id number] [place] [address] Jan, Fibromyalgia M79.7 [facility] [place] [id number] [place] [address] Jan, [facility] [place] [id number] [place] [address] Jan, [facility] [place] [id number] [place] [address] Jan, Vitamin D deficiency E55.9 [facility] [place] [id number] [place] [address] Dec, [facility] [place] [id number] [place] [address] Dec, [facility] [place] [id number] [place] [address] Dec, Generalized anxiety disorder F41.1 [facility] [place] [address] [address] Dec, Dysuria R30.0 ; Acute bilateral low back pain without sciatica M54.5 and Encounter for immunization Z23 [place] [id number] [place] [address] Oct, [facility] [place] [id number] [place] [address] Oct, Fibromyalgia M79.7 [facility] [place] [id number] [place] [address] Sep, Dysuria R30.0 and Acute bronchitis, unspecified organism J20.9 [facility] [place] [id number] [place] [address] Sep, [facility] [place] [id number] [place] [address] Sep, Rectal prolapse K62.3 [facility] [place] [id number] [place] [address] Sep, Chronic obstructive pulmonary disease, unspecified COPD type J44.9 [facility] [id number] [place] [id number] Aug, [facility] [address] [id number] Aug, [facility] [place] [id number] [place] [address] Aug, Light headedness R42 ; On antiepileptic therapy Z79.899 ; Vitamin D deficiency E55.9 ; Screening for lipid disorders Z13.220 ; Dysuria R30.0 and Hemorrhoids, unspecified hemorrhoid type K64.9 [address] [address] [address] Aug, Internal prolapsed hemorrhoids 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.8 [place] [address] [address] July, [address] [address] [address] May, [address] [address] May, Fever and chills R50.9 and Influenza B J10.[address] [address] Apr, [address] [address] Apr, Fibromyalgia M79.7 and Generalized anxiety disorder F41.[address] [address] Mar, Esophageal reflux K21.9 ; Generalized anxiety disorder F41.1 and Epilepsy G40.909 [id number] [place] [address] Mar, Epilepsy G40.909 ; Esophageal reflux K21.9 ; Fibromyalgia M79.7 ; Generalized anxiety disorder F41.1 ; Pain of left foot M79.672 ; Pain in right foot M79.671 ; Ear pain, right H92.01 ; Tinnitus of both ears H93.13 ; Chronic obstructive pulmonary disease, unspecified COPD type J44.9 ; Vitamin D deficiency E55.9 ; Screening for lipid disorders Z13.220 and On antiepileptic therapy Z79.899 [id number] [place] [address] Feb, [address] [address] Feb, [facility] [id number] [place] [address] Feb, Dysuria R30.0 and Plantar fasciitis of right foot M72.2 [facility] [place] [id number] [place] [address] Feb, [facility] [place] [id number] [place] [address] Feb, [facility] [place] [id number] [place] [address] Jan, [facility] [place] [id number] [place] [address] Jan, [facility] [place] [id number] [place] [address] Dec, [facility] [place] [id number] [place] [address] Dec, [facility] [place] [id number] [place] [address] Dec, [facility] [place] [id number] [place] [address] Nov, [facility] [place] [id number] [place] [address] Sep, [facility] [id number] [place] [address] Aug, Shortness of breath R06.02 and Acute suppurative otitis media of right ear without spontaneous rupture of tympanic membrane, recurrence not specified H66.001 [facility] [place] [id number] [place] [address] 14 Aug, 2015 Internal prolapsed hemorrhoids K64.8 [facility] [place] [address], [place] [address] 06 Jun, 2016 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 [place] [id number] [place] [address] May, Fibromyalgia M79.7 ; Interstitial cystitis N30.10 ; Intractable migraine without aura and without status migrainosus G43.019 ; Low vitamin D level E55.9 and Ringing in right ear H93.11 [address] [address] May, [address] [address] [address] May, Low vitamin D level E55.9 [address] [address] [address] Apr, [address] [place] [address] [address] Mar, [address] [address] [address] Mar, Acute suppurative otitis media of right ear without spontaneous rupture of tympanic membrane, recurrence not specified H66.001 ; Encounter for immunization Z23 ; Asthma with acute exacerbation, unspecified asthma severity J45.901 ; Memory problem R41.3 ; Acute pain of right knee M25.561 ; Chronic fatigue R53.82 and Excessive urinary volume R35.8 [address] [id number] [place] [address] Feb, [address] [address] [address] Feb, [place] [id number] [place] [address] Jan, [address] [place] [address] Nov, Esophageal reflux 530.81 ; Anxiety 300.00 and Tingling in extremities 782.0 [address] [address] [address] Oct, [facility] [place] [address], [place] [address] Oct, [facility] [place] [id number] [place] [address] Oct, [facility] [place] [id number] [place] [address] Oct, [facility] [place] [id number] [place] [address] Oct, [facility] [place] [id number] [place] [address] Sep, Other chronic allergic conjunctivitis 372.14 ; Irritable bowel syndrome 564.1 ; 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 ; Fibromyalgia 729.1 ; Extremity pain 729.5 and Neck pain 723.1 [facility] [place] [id number] [place] [address] Sep, [facility] [place] [id number] [place] [address] Aug, [facility] [place] [id number] [place] [address] Aug, [facility] [place] [address] [place] [address] July, Vomiting 787.03 [facility] [id number] [place] [id number] July, Dental examination V72.2 [facility] [place] [address], [place] [address] Jun, [facility] [place] [id number] [place] [address] Jun, [facility] [place] [id number] [place] [address] May, [facility] [place] [id number] [place] [address], [place] [address] May, [facility] [place] [facility] [address] [id number] [place] [address] May, [facility] [place] [facility] [address] [facility] [place] [id number] [place] [address] May, [facility] [place] [facility] [address] [facility] [place] [id number] [place] [address] May, [facility] [place] [facility] [address] [facility] [place] [id number] [place] [address] May, [facility] [place] [facility] [address] [id number] [place] [address] May, [facility] [place] [facility] [address] [facility] [place] [id number] [place] [address] May, [facility] [place] [facility] [address] [facility] [place] [id number] [place] [address] May, [facility] [place] [facility] [address] [facility] [place] [id number] [place] [address] Apr, [facility] [place] [facility] [address] [facility] [place] [id number] [place] [address] Apr, [facility] [place] [facility] [address] [facility] [place] [id number] [place] [address] Apr, [facility] [place] [facility] [address] [facility] [place] [facility] [id number] [place] [address] Apr, 2014 [facility] [place] [facility] [address] [facility] [place] [id number] [place] [address] Apr, [facility] [place] [facility] [address] [facility] [place] [id number] [place] [address] Apr, [facility] [place] [facility] [address] [facility] [place] [facility] [id number] [place] [address] Mar, [facility] [place] [facility] [address] [facility] [place] [id number] [place] [address] Mar, [facility] [place] [facility] [address] [id number] [place] [address] Mar, [facility] [place] [facility] [address] [id number] [place] [address] Mar, [facility] [place] [facility] [address] [id number] [place] [address] Mar, [facility] [place] [facility] [address] [id number] [place] [address] Mar, [facility] [place] [facility] [address] [id number] [place] [address] Mar, [facility] [place] [facility] [address] [id number] [place] [address] Mar, [facility] [place] [facility] [address] [id number] [place] [address] Mar, [facility] [place] [facility] [address] [id number] [place] [address] Mar, [facility] [place] [facility] [address] [id number] [place] [address] Mar, [facility] [place] [facility] [address] [id number] [address] Mar, [facility] [place] [facility] [address] [id number], [place] [address] Mar, [facility] [place] [facility] [address] [id number], [place] [address] Mar, [facility] [place] [facility] [address] [id number] [place] [address] Mar, [facility] [place] [facility] [address] [id number], [place] [address] Mar, [facility] [place] [facility] [address] [id number], [place] [address] Mar, [facility] [place] [facility] [address] [id number], [place] [address] Mar, [facility] [place] [facility] [address] [id number] [place] [address] Mar, [facility] [place] [facility] [address] [id number] [place] [address] Feb, [facility] [place] [facility] [address] [facility] [id number] [place] [address] Feb, [facility] [place] [facility] [address] [id number] [place] [address] Feb, [facility] [place] [facility] [address] [id number] [place] [address] Feb, [facility] [place] [facility] [address] [id number] [place] [address] Jan, [facility] [place] [facility] [address] [id number] [place] [address] Jan, [facility] [place] [facility] [address] [id number] [place] [address] Jan, [facility] [place] [facility] [address] [id number] [place] [address] Jan, [facility] [place] [facility] [address] [facility] [id number] [place] [address] Jan, [facility] [place] [facility] [address] [id number] [place] [address] Jan, [facility] [place] [facility] [address] [id number], [place] [address] Jan, [facility] [place] [facility] [address] [id number] [place] [address] Jan, [facility] [place] [facility] [address] [facility] [id number] [place] [address] Dec, [facility] [place] [facility] [address] [id number] [place] [address] Dec, [facility] [place] [facility] [address] [id number] [place] [address] 17 Dec, 2013 [facility] [place] [facility] [address] [id number] [place] [address] 17 Dec, 2013 [facility] [place] [facility] [address] [id number] [place] [address] 22 Nov, 2013 [facility] [place] [facility] [address] [id number] [place] [address] 22 Nov, 2013 [facility] [place] [facility] [address] [id number] [place] [address] 08 Nov, 2013 [facility] [place] [facility] [address] [id number] [place] [address] 08 Nov, 2013 [facility] [place] [facility] [address] [id number] [place] [address] 05 Nov, 2013 [facility] [place] [facility] [address] [id number] [place] [address] 05 Nov, 2013 [facility] [place] [facility] [address] [id number] [place] [address] 04 Nov, 2013 [facility] [place] [facility] [address] [id number] [place] [address] 04 Nov, 2013 [facility] [place] [facility] [address] [id number] [place] [address] 03 Nov, 2013 [facility] [place] [facility] [address] [id number] [place] [address] 03 Nov, 2013 [facility] [place] [facility] [address] [id number] [place] [address] 15 Oct, 2013 [facility] [place] [facility] [address] [id number] [place] [address] 15 Oct, 2013 [facility] [place] [facility] [address] [id number] [place] [address] 14 Sep, 2013 [facility] [place] [facility] [address] [id number] [place] [address] Sep, [facility] [place] [facility] [address] [id number] [place] [address] Sep, [facility] [place] [facility] [address] [id number] [place] [address] Sep, [facility] [place] [facility] [address] [id number] [place] [address] Sep, [facility] [place] [facility] [address] [id number] [place] [address] Sep, [facility] [place] [facility] [address] [id number] [place] [address] Aug, [facility] [place] [facility] [address] [id number] [place] [address] Aug, [facility] [place] [facility] [address] [id number] [place] [address] Aug, [facility] [place] [facility] [address] [id number] [place] [address] Aug, [facility] [place] [facility] [address] [id number] [place] [address] Aug, [facility] [place] [facility] [address] [id number] [place] [address] Aug, [facility] [place] [facility] [address] [id number] [place] [address] July, [facility] [place] [facility] [address] [id number] [place] [address] July, [facility] [place] [facility] [address] [id number] [place] [address] July, [facility] [place] [facility] [address] [id number] [place] [address] July, [facility] [place] [facility] [address] [id number] [place] [address] July, [facility] [place] [facility] [address] [id number] [place] [address] July, [facility] [address] [id number] [place] [address] Jun, [facility] [place] [facility] [address] [id number] [place] [address] Jun, [facility] [place] [facility] [address] [id number] [place] [address] Jun, [facility] [place] [facility] [address] [id number] [place] [address] Jun, [facility] [place] [facility] [address] [id number] [place] [address] May, [facility] [place] [facility] [address] [id number] [place] [address] May, [facility] [place] [facility] [address] [id number] [place] [address] Apr, [facility] [place] [facility] [address] [id number] [place] [address] Apr, [facility] [place] [facility] [address] [facility] [place] [id number] [place] [address] Apr, [facility] [place] [facility] [address] [facility] [place] [id number] [place] [address] Apr, [facility] [place] [facility] [address] [id number] [place] [address] Mar, [facility] [place] [facility] [address] [id number] [place] [address] Mar, [facility] [place] [facility] [address] [id number] [place] [address] Mar, [facility] [place] [facility] [address] [id number] [place] [address] Mar, [facility] [place] [facility] [address] [facility] [place] [id number] [place] [address] Mar, [facility] [address] [id number] [place] [address] Mar, [facility] [place] [facility] [address] [id number] [place] [address] Feb, [facility] [place] [facility] [address] [id number] [place] [address] Feb, [facility] [place] [facility] [address] [id number] [place] [address] Jan, [facility] [place] [facility] [address] [id number] [place] [address] Jan, [facility] [place] [facility] [address] [id number] [place] [address] Jan, [facility] [place] [facility] [address] [id number] [place] [address] Jan, [facility] [place] [facility] [address] [id number] [place] [address] Nov, [facility] [place] [facility] [address] [id number] [place] [address] Nov, [facility] [place] [facility] [address] [id number], [place] [address] Oct, [facility] [place] [facility] [address] [id number], [place] [address] Oct, [facility] [place] [facility] [address] [id number], [place] [address] Sep, [facility] [place] [facility] [address] [id number] [place] [address] Sep, [facility] [place] [facility] [address] [id number], [place] [address] Sep, [facility] [place] [facility] [address] [id number], [place] [address] Aug, [facility] [place] [facility] [address] [id number], [place] [address] Aug, [facility] [address] [id number] [place] [address] Aug, [facility] [address] [id number] [place] [address] Aug, [facility] [address] [facility] [place] [id number] [place] [address] July, [facility] [address] [id number] [place] [address] July, [facility] [address] [id number] [place] [address] July, [facility] [address] [facility] [place] [id number] [place] [address] July, [facility] [address] [id number] [place] [address] Jun, [facility] [address] [facility] [place] [id number] [place] [address] Jun, [facility] [address] [id number] [place] [address] Jun, [facility] [address] [id number] [place] [address] May, [facility] [address] [id number] [place] [address] May, [facility] [address] [facility] [place] [id number], [place] [address] Apr, [facility] [place] [facility] [address] [id number] [place] [address] Apr, [facility] [place] [facility] [address] [id number] [place] [address] Apr, [facility] [address] [facility] [place] [id number], [place] [address] Apr, [facility] [address] [id number] [place] [address] Mar, [facility] [address] [id number] [place] [address] Mar, [facility] [address] [id number] [place] [address] Mar, [facility] [address] [id number] [place] [address] Mar, [facility] [address] [id number] [place] [address] Feb, [facility] [address] [id number] [place] [address] Feb, [facility] [address] [id number] [place] [address] Feb, [facility] [address] [id number] [place] [address] Feb, [facility] [address] [id number] [place] [address] Feb, [facility] [address] [id number] [place] [address] Feb, [facility] [address] [id number] [place] [address] Feb, [facility] [address] [id number] [place] [address] Feb, [facility] [place] [facility] [address] [id number] [place] [address] Jan, [facility] [place] [facility] [address] [id number] [place] [address] Jan, [facility] [place] [facility] [address] [id number] [place] [address] 15 Jan, 2012 [facility] [place] [facility] [address] [id number] [place] [address] 15 Jan, 2012 [facility] [place] [facility] [address] [id number] [place] [address] 14 Jan, 2012 [facility] [place] [facility] [address] [id number] [place] [address] Jan, [facility] [place] [facility] [address] [id number] [place] [address] Jan, [facility] [place] [facility] [address] [id number], [place] [address] Jan, [facility] [place] [facility] [address] [id number] [place] [address] Jan, [facility] [place] [facility] [address] [id number] [place] [address] Jan, [facility] [place] [facility] [address] [id number] [place] [address] Jan, [facility] [place] [facility] [address] [id number] [place] [address] Dec, [facility] [place] [facility] [address] [id number] [place] [address] Dec, [facility] [place] [facility] [address] [id number] [place] [address] Dec, [facility] [place] [facility] [address] [id number], [place] [address] Dec, [facility] [place] [facility] [address] [id number], [place] [address] 29 Dec, 2011 [facility] [place] [facility] [address] [id number] [place] [address] 29 Dec, 2011 [facility] [place] [facility] [address] [id number], [place] [address] Dec, [facility] [place] [facility] [address] [id number] [place] [address] Dec, [facility] [place] [facility] [address] [id number] [place] [address] 15 Dec, 2011 [facility] [place] [facility] [address] [id number] [place] [address] Dec, [facility] [place] [facility] [address] [id number] [place] [address] Dec, [facility] [place] [facility] [address] [id number] [place] [address] Dec, [facility] [place] [facility] [address] [id number] [place] [address] Nov, [facility] [place] [facility] [address] [id number] [place] [address] Oct, [facility] [place] [facility] [address] [id number] [place] [address] Oct, [facility] [place] [facility] [address] [id number] [place] [address] Oct, [facility] [place] [facility] [address] [id number] [place] [address] Oct, [facility] [place] [facility] [address] [id number] [place] [address] Sep, [facility] [place] [facility] [address] [id number] [place] [address] Sep, [facility] [place] [facility] [address] [id number] [place] [address] Sep, [facility] [place] [facility] [address] [id number] [place] [address] Sep, [facility] [place] [facility] [address] [id number] [place] [address] Aug, [facility] [place] [facility] [address] [id number] [place] [address] Aug, [facility] [place] [facility] [address] [id number] [place] [address] Aug, [facility] [place] [address] [facility] [place] [id number], [place] [address] Aug, [facility] [place] [address] [id number], [place] [address] Aug, [facility] [place] [address] [id number], [place] [address] July, [facility] [place] [id number], [place] [address] July, [facility] [place] [address] [id number], [place] [address] July, [facility] [place] [address] [id number], [place] [address] Dec, IMMUNIZATIONS No Known Immunizations SOCIAL HISTORY Never Assessed REASON FOR VISIT Refill Request PLAN OF CARE VITAL SIGNS MEDICATIONS Unknown [...]
--- OUTSIDE RECORDS SUMMARY | 2018-10-24 12:38 | XMS REPORT ---
Author Author NELSON DIANN [facility] [address] Address [address] [place] [address] Care Team Providers Care Retail Business Manager Name Role Phone NELSONPRADEEP BURGOSHANY Unavailable PROBLEMS Type Condition ICD9-CM Code NVB41-EN Code Onset Dates Condition Status SNOMED Code Problem Lumbago M54.5 Active 286868788 Problem Irritable bowel syndrome without diarrhea K58.9 Active 75780672 Problem Fibromyalgia M79.7 Active 77709913 Problem COPD exacerbation J44.1 Active 435294807 Problem Irritable bowel syndrome with diarrhea K58.0 Active 234924345 Problem Vitamin D deficiency E55.9 Active 08038454 Problem On antiepileptic therapy Z79.899 Active 790910847 Problem Chronic obstructive pulmonary disease, unspecified COPD type J44.9 Active 80722682 Problem Tinnitus of both ears H93.13 Active 0669880869461 Problem Esophageal reflux K21.9 Active 813826076 Problem Generalized anxiety disorder F41.1 Active 093980347 Problem Interstitial cystitis N30.10 Active 015195730 Problem Epilepsy G40.909 Active 09484888 Problem Major depressive disorder F32.9 Active [id number] ALLERGIES No Information ENCOUNTERS Encounter Location Date Diagnosis [place] [id number] [place] [address] July, [facility] [id number] [place] [address] Jun, [facility] [address] [place] [id number] [place] [address] Jun, Chronic obstructive pulmonary disease, unspecified COPD type J44.9 ; COPD exacerbation J44.1 and Sore throat J02.9 [facility] [address] [address] Jun, Fibromyalgia M79.7 [place] [address] [place] [id number] [place] [address] Jun, Fibromyalgia M79.7 [facility] [id number] [place] [address] May, [facility] [id number] [place] [address] May, [facility] [address] [address] May, Fibromyalgia M79.7 [facility] [address] [id number] [place] [address] Mar, [facility] [id number] [place] [address] Mar, Epilepsy G40.909 ; Lumbago M54.5 ; Esophageal reflux K21.9 ; Fibromyalgia M79.7 ; Chronic obstructive pulmonary disease, unspecified COPD type J44.9 ; Vitamin D deficiency E55.9 ; Fluid level behind tympanic membrane of right ear H65.91 ; Irritable bowel syndrome with diarrhea K58.0 ; Hematochezia K92.1 and Generalized anxiety disorder F41.1 [place] [address] [address] [id number] [place] [address] Mar, [place] [address] [address] [id number] [place] [address] Mar, [facility] [id number] [place] [address] Mar, Vitamin D deficiency E55.9 [facility] [id number] [place] [address] Feb, [facility] [id number] [place] [address] Feb, [facility] [id number] [place] [address] Jan, Fibromyalgia M79.7 [facility] [id number] [place] [address] Jan, [facility] [address] [address] Jan, [facility] [id number] [place] [address] Jan, Vitamin D deficiency E55.9 [facility] [address] [address] Dec, [facility] [id number] [place] [address] Dec, [facility] [address] [address] Dec, Generalized anxiety disorder F41.1 [place] [address] [address] Dec, Dysuria R30.0 ; Acute bilateral low back pain without sciatica M54.5 and Encounter for immunization Z23 [facility] [id number] [place] [address] Oct, [facility] [address] [address] Oct, Fibromyalgia M79.7 [facility] [address] [id number] [place] [address] Sep, Dysuria R30.0 and Acute bronchitis, unspecified organism J20.9 [facility] [id number] [place] [address] Sep, [facility] [address] [address] Sep, Rectal prolapse K62.3 [facility] [address] [address] [id number] [place] [address] Sep, Chronic obstructive pulmonary disease, unspecified COPD type J44.9 [facility] [address] [place] [id number] Aug, [facility] [address] [id number] Aug, [place] [address] [place] [id number] [place] [address] Aug, Light headedness R42 ; On antiepileptic therapy Z79.899 ; Vitamin D deficiency E55.9 ; Screening for lipid disorders Z13.220 ; Dysuria R30.0 and Hemorrhoids, unspecified hemorrhoid type K64.9 [place] [address] [id number] [place] [address] Aug, Internal prolapsed hemorrhoids K64.8 [place] [address] [address] July, [place] [address] [address] May, [place] [address] [place] [id number] [place] [address] May, Fever and chills R50.9 and Influenza B J10.1 [place] [address] [place] [id number] [place] [address] Apr, [place] [address] [place] [address] [id number] [place] [address] Apr, Fibromyalgia M79.7 and Generalized anxiety disorder F41.1 [place] [address] [place] [id number] [place] [address] Mar, Esophageal reflux K21.9 ; Generalized anxiety disorder F41.1 and Epilepsy G40.909 [place] [address] [place] [id number] [place] [address] Mar, Epilepsy G40.909 ; Esophageal reflux K21.9 ; Fibromyalgia M79.7 ; Generalized anxiety disorder F41.1 ; Pain of left foot M79.672 ; Pain in right foot M79.671 ; Ear pain, right H92.01 ; Tinnitus of both ears H93.13 ; Chronic obstructive pulmonary disease, unspecified COPD type J44.9 ; Vitamin D deficiency E55.9 ; Screening for lipid disorders Z13.220 and On antiepileptic therapy Z79.899 [facility] [address] [id number] [place] [address] Feb, [facility] [id number] [place] [address] Feb, [facility] [id number] [place] [address] Feb, Dysuria R30.0 and Plantar fasciitis of right foot M72.2 [facility] [address] [place] [id number] [place] [address] Feb, [facility] [id number] [place] [address] Feb, [facility] [id number] [place] [address] Jan, [facility] [id number] [place] [address] Jan, [facility] [address] [id number] [place] [address] Dec, [facility] [id number] [place] [address] Dec, [facility] [address] [id number] [place] [address] Dec, [facility] [address] [id number] [place] [address] Nov, [facility] [address] [place] [id number] [place] [address] Sep, [facility] [id number] [place] [address] Aug, Shortness of breath R06.02 and Acute suppurative otitis media of right ear without spontaneous rupture of tympanic membrane, recurrence not specified H66.001 [place] [address] [place] [id number] [place] [address] 14 Aug, 2015 Internal prolapsed hemorrhoids K64.8 [place] [address] [place] [id number] [place] [address] 06 Jun, 2015 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 [place] [address] [address] May, Fibromyalgia M79.7 ; Interstitial cystitis N30.10 ; Intractable migraine without aura and without status migrainosus G43.019 ; Low vitamin D level E55.9 and Ringing in right ear H93.11 [place] [address] [address] May, [place] [address] [address] May, Low vitamin D level E55.9 [place] [address] [address] Apr, [place] [address] [place] [id number] [place] [address] Mar, [place] [address] [place] [id number] [place] [address] Mar, Acute suppurative otitis media of right ear without spontaneous rupture of tympanic membrane, recurrence not specified H66.001 ; Encounter for immunization Z23 ; Asthma with acute exacerbation, unspecified asthma severity J45.901 ; Memory problem R41.3 ; Acute pain of right knee M25.561 ; Chronic fatigue R53.82 and Excessive urinary volume R35.8 [place] [address] [place] [id number] [place] [address] Feb, [place] [address] [address] Feb, [place] [address] [address] Jan, [facility] [id number] [place] [address] Nov, Esophageal reflux 530.81 ; Anxiety 300.00 and Tingling in extremities 782.0 [facility] [id number] [place] [address] Oct, [facility] [address] [id number] [place] [address] Oct, [facility] [address] [id number] [place] [address] Oct, [facility] [id number] [place] [address] Oct, [facility] [id number] [place] [address] Oct, [facility] [address] [place] [address] Sep, Other chronic allergic conjunctivitis 372.14 ; Irritable bowel syndrome 564.1 ; 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 [address] [place] [id number] July, Dental examination V72.2 [facility] [address] [place] [id number] [address] 14 Jun, 2014 [facility] [place] [facility] [address] [id number] [place] [address] 13 Jun, 2014 [facility] [place] [facility] [address] [id number] [place] [address] 27 May, 2014 [facility] [place] [facility] [address] [id number] [place] [address] 27 May, 2014 [facility] [place] [facility] [address] [id number] [place] [address] 16 May, 2014 [facility] [place] [facility] [address] [id number] [place] [address] 16 May, 2014 [facility] [place] [facility] [address] [id number] [place] [address] 05 May, 2014 [facility] [place] [facility] [address] [id number] [place] [address] 05 May, 2014 [facility] [place] [facility] [address] [id number] [place] [address] May, [facility] [place] [facility] [address] [id number] [place] [address] 03 May, 2014 [facility] [place] [facility] [address] [id number] [place] [address] 02 May, 2014 [facility] [place] [facility] [address] [id number] [place] [address] 11 Apr, 2014 [facility] [place] [facility] [address] [id number] [place] [address] 11 Apr, 2014 [facility] [place] [facility] [address] [id number] [place] [address] 11 Apr, 2014 [facility] [place] [facility] [address] [id number] [place] [address] 11 Apr, 2014 [facility] [place] [facility] [address] [id number] [place] [address] Apr, [facility] [place] [facility] [address] [id number] [place] [address] Apr, [facility] [place] [facility] [address] [id number] [place] [address] Mar, [facility] [place] [facility] [address] [id number] [place] [address] Mar, [facility] [place] [facility] [address] [id number] [place] [address] Mar, [facility] [place] [facility] [address] [id number] [place] [address] Mar, [facility] [place] [facility] [address] [id number] [place] [address] Mar, [facility] [place] [facility] [address] [id number] [place] [address] Mar, [facility] [place] [facility] [address] [id number] [place] [address] Mar, [facility] [place] [facility] [address] [id number] [place] [address] Mar, [facility] [place] [facility] [address] [id number] [place] [address] Mar, [facility] [place] [facility] [address] [id number] [place] [address] Mar, [facility] [place] [facility] [address] [id number] [place] [address] Mar, [facility] [place] [facility] [address] [id number] [place] [address] Mar, [facility] [place] [facility] [address] [id number] [place] [address] Mar, [facility] [place] [facility] [address] [id number] [place] [address] Mar, [facility] [place] [facility] [address] [id number] [place] [address] 15 Mar, 2014 [facility] [address] [id number] [place] [address] 15 Mar, 2014 [facility] [place] [facility] [address] [id number] [place] [address] 15 Mar, 2014 [facility] [address] [id number] [place] [address] 09 Mar, 2014 [facility] [place] [facility] [address] [id number] [place] [address] 09 Mar, 2014 [facility] [address] [id number] [place] [address] 18 Feb, 2014 [facility] [address] [id number] [place] [address] 18 Feb, 2014 [facility] [address] [id number] [place] [address] Feb, [facility] [address] [id number] [place] [address] 11 Feb, 2014 [facility] [place] [facility] [address] [id number] [place] [address] 20 Jan, 2014 [facility] [address] [id number] [place] [address] 20 Jan, 2014 [facility] [place] [facility] [address] [id number] [place] [address] 14 Jan, 2014 [facility] [place] [facility] [address] [id number] [place] [address] 14 Jan, 2014 [facility] [place] [facility] [address] [id number] [place] [address] 14 Jan, 2014 [facility] [place] [facility] [address] [id number] [place] [address] 14 Jan, 2014 [facility] [place] [facility] [address] [id number] [place] [address] Jan, [facility] [place] [facility] [address] [id number] [place] [address] 07 Jan, 2014 [facility] [place] [facility] [address] [id number] [place] [address] Dec, [facility] [place] [facility] [address] [id number] [place] [address] Dec, [facility] [place] [facility] [address] [id number] [place] [address] Dec, [facility] [place] [facility] [address] [id number] [place] [address] 17 Dec, 2013 [facility] [place] [facility] [address] [id number] [place] [address] 22 Nov, 2013 [facility] [place] [facility] [address] [id number] [place] [address] 22 Sep, 2013 [facility] [place] [facility] [address] [id number] [place] [address] 08 Sep, 2013 [facility] [place] [facility] [address] [id number] [place] [address] 08 Sep, 2013 [facility] [place] [facility] [address] [id number] [place] [address] 05 Sep, 2013 [facility] [place] [facility] [address] [id number] [place] [address] 05 Sep, 2013 [facility] [place] [facility] [address] [id number] [place] [address] 04 Sep, 2013 [facility] [place] [facility] [address] [id number] [place] [address] 04 Sep, 2013 [facility] [place] [facility] [address] [id number] [place] [address] 03 Sep, 2013 [facility] [place] [facility] [address] [id number] [place] [address] 03 Sep, 2013 [facility] [place] [facility] [address] [id number] [place] [address] Oct, [facility] [place] [facility] [address] [id number] [place] [address] Oct, [facility] [place] [facility] [address] [id number] [place] [address] Sep, [facility] [place] [facility] [address] [id number] [place] [address] Sep, [facility] [place] [facility] [address] [id number] [place] [address] Sep, [facility] [place] [facility] [address] [id number] [place] [address] Sep, [facility] [place] [facility] [address] [id number] [place] [address] Sep, [facility] [place] [facility] [address] [id number] [place] [address] Sep, [facility] [place] [facility] [address] [id number] [place] [address] Aug, [facility] [place] [facility] [address] [id number] [place] [address] Aug, [facility] [place] [facility] [address] [id number] [place] [address] Aug, [facility] [place] [facility] [address] [id number] [place] [address] Aug, [facility] [place] [facility] [address] [id number] [place] [address] Aug, [facility] [place] [facility] [address] [id number] [place] [address] Aug, [facility] [place] [facility] [address] [id number] [place] [address] July, [facility] [place] [facility] [address] [id number] [place] [address] July, [facility] [place] [facility] [address] [id number] [place] [address] July, [facility] [place] [facility] [address] [id number] [place] [address] July, [facility] [place] [facility] [address] [id number] [place] [address] July, [facility] [place] [facility] [address] [id number] [place] [address] July, [facility] [place] [facility] [address] [id number] [place] [address] Jun, [facility] [place] [facility] [address] [id number] [place] [address] Jun, [facility] [place] [facility] [address] [id number] [place] [address] Jun, [facility] [place] [facility] [address] [id number] [place] [address] Jun, [facility] [place] [facility] [address] [id number] [place] [address] May, [facility] [place] [facility] [address] [id number] [place] [address] May, [facility] [place] [facility] [address] [id number] [place] [address] Apr, [facility] [place] [facility] [address] [id number] [place] [address] Apr, [facility] [place] [facility] [address] [id number] [place] [address] Apr, [facility] [place] [facility] [address] [id number] [place] [address] Apr, [facility] [place] [facility] [address] [id number] [place] [address] Mar, [facility] [place] [facility] [address] [id number] [place] [address] Mar, [facility] [place] [facility] [address] [id number] [place] [address] Mar, [facility] [place] [facility] [address] [id number] [place] [address] Mar, [facility] [place] [facility] [address] [id number] [place] [address] Mar, [facility] [place] [facility] [address] [id number] [place] [address] Mar, [facility] [place] [facility] [address] [id number] [place] [address] Feb, [facility] [place] [facility] [address] [id number] [place] [address] Feb, [facility] [place] [facility] [address] [id number] [place] [address] Jan, [facility] [place] [facility] [address] [id number] [place] [address] Jan, [facility] [place] [facility] [address] [id number] [place] [address] Jan, [facility] [place] [facility] [address] [id number] [place] [address] Jan, [facility] [place] [facility] [address] [id number] [place] [address] Nov, [facility] [place] [facility] [address] [id number] [place] [address] Nov, [facility] [place] [facility] [address] [id number] [place] [address] Oct, [facility] [place] [facility] [address] [id number] [place] [address] Oct, [facility] [place] [facility] [address] [id number] [place] [address] Sep, [facility] [place] [facility] [address] [id number] [place] [address] Sep, [facility] [address] [id number] [place] [address] Sep, [facility] [address] [id number] [place] [address] Aug, [facility] [address] [id number] [place] [address] Aug, [facility] [address] [id number] [place] [address] Aug, [facility] [address] [id number] [place] [address] Aug, [facility] [address] [id number] [place] [address] July, [facility] [address] [id number] [place] [address] July, [facility] [address] [id number] [place] [address] July, [facility] [address] [id number] [place] [address] July, [facility] [address] [id number] [place] [address] Jun, [facility] [address] [id number] [place] [address] Jun, [facility] [address] [id number] [place] [address] Jun, [facility] [address] [id number] [place] [address] May, [facility] [address] [id number] [place] [address] May, [facility] [address] [id number] [place] [address] Apr, [facility] [address] [id number] [place] [address] Apr, [facility] [place] [facility] [address] [id number] [place] [address] Apr, [facility] [place] [facility] [address] [id number] [place] [address] Apr, [facility] [place] [facility] [address] [id number] [place] [address] Mar, [facility] [address] [id number] [place] [address] Mar, [facility] [address] [id number] [place] [address] Mar, [facility] [address] [facility] [id number] [place] [address] Mar, [facility] [address] [id number] [place] [address] Feb, [facility] [address] [id number] [place] [address] Feb, [facility] [place] [facility] [address] [id number] [place] [address] Feb, [facility] [place] [facility] [address] [id number] [place] [address] Feb, [facility] [place] [facility] [address] [id number] [place] [address] Feb, [facility] [place] [facility] [address] [id number] [place] [address] Feb, [facility] [place] [facility] [address] [id number] [place] [address] Feb, [facility] [place] [facility] [address] [facility] [id number] [place] [address] Feb, [facility] [place] [facility] [address] [id number] [place] [address] 28 Jan, 2012 [facility] [place] [facility] [address] [id number] [place] [address] 28 Jan, 2012 [facility] [place] [facility] [address] [id number] [place] [address] 15 Jan, 2012 [facility] [place] [facility] [address] [id number] [place] [address] 15 Jan, 2012 [facility] [place] [facility] [address] [id number] [place] [address] 14 Jan, 2012 [facility] [place] [facility] [address] [id number] [place] [address] 13 Jan, 2012 [facility] [place] [facility] [address] [id number] [place] [address] Jan, [facility] [place] [facility] [address] [id number] [place] [address] Jan, [facility] [place] [facility] [address] [id number] [place] [address] Jan, [facility] [place] [facility] [address] [id number] [place] [address] Jan, [facility] [place] [facility] [address] [facility] [id number] [place] [address] Jan, [facility] [place] [facility] [address] [id number] [place] [address] Dec, [facility] [place] [facility] [address] [id number] [place] [address] Dec, [facility] [place] [facility] [address] [id number] [place] [address] Dec, [facility] [place] [facility] [address] [id number] [place] [address] Dec, [facility] [place] [facility] [address] [id number] [place] [address] 29 Dec, 2011 [facility] [place] [facility] [address] [id number] [place] [address] Dec, [facility] [place] [facility] [address] [id number] [place] [address] Dec, [facility] [place] [facility] [address] [id number] [place] [address] Dec, [facility] [place] [facility] [address] [id number] [place] [address] Dec, [facility] [place] [facility] [address] [id number] [place] [address] Dec, [facility] [place] [facility] [address] [id number] [place] [address] Dec, [facility] [place] [facility] [address] [id number] [place] [address] Dec, [facility] [place] [facility] [address] [id number] [place] [address] Nov, [facility] [place] [facility] [address] [id number] [place] [address] Oct, [facility] [place] [facility] [address] [id number] [place] [address] Oct, [facility] [place] [facility] [address] [id number] [place] [address] Oct, [facility] [place] [facility] [address] [id number] [place] [address] Oct, [facility] [place] [facility] [address] [id number] [place] [address] Sep, [facility] [place] [facility] [address] [id number] [place] [address] Sep, [facility] [place] [facility] [address] [id number] [place] [address] Sep, [facility] [place] [facility] [address] [id number] [place] [address] Sep, [facility] [address] [id number] [address] Aug, [facility] [id number] [place] [address] Aug, [facility] [id number] [place] [address] Aug, [facility] [id number] [place] [address] Aug, [facility] [id number] [place] [address] Aug, [facility] [id number] [place] [address] July, [facility] [id number] [place] [address] July, [facility] [id number] [place] [address] July, [facility] [address] [id number] [address] Dec, IMMUNIZATIONS No Known Immunizations SOCIAL HISTORY [...]
--- OUTSIDE RECORDS SUMMARY | 2018-10-24 12:39 | XMS REPORT ---
Author Author NELSON DIANN Organization [facility] Address [address] [place] [address] Care Team Providers Care Chief Procurement Officer Name Role Phone NELSON DIANN Unavailable PROBLEMS Type Condition ICD9-CM Code [id number] Code Onset Dates Condition Status SNOMED Code Problem Epilepsy G40.909 Active 01066599 Problem Lumbago M54.5 Active 565276202 Problem Esophageal reflux K21.9 Active 250656663 Problem Generalized anxiety disorder F41.1 Active 184686782 Problem Interstitial cystitis N30.10 Active 002995982 Problem Major depressive disorder F32.9 Active 767781703 Problem Vitamin D deficiency E55.9 Active 58239162 Problem Chronic obstructive pulmonary disease, unspecified COPD type J44.9 Active 02825090 Problem Irritable bowel syndrome without diarrhea K58.9 Active 15186371 Problem Fibromyalgia M79.7 Active 22885751 Problem Tinnitus of both ears H93.13 Active 9018188740030 Problem On antiepileptic therapy Z79.899 Active 900771869 ALLERGIES No Information SOCIAL HISTORY Never Assessed PLAN OF CARE VITAL SIGNS MEDICATIONS Medication Instructions Dosage Frequency Start Date End Date Duration Status Tessalon Perles 100 mg Orally every 8 hours 1 capsule as needed 8h May, Active Promethazine HCl 25 MG Orally every 4 hours 1 tablet as needed 4h May, Active RESULTS No Results PROCEDURES No Known procedures IMMUNIZATIONS No Known Immunizations MEDICAL (GENERAL) HISTORY Type Description Date Medical History epilepsy Medical History interstitial cystitis Surgical History hysterectomy Surgical History breast biopsy w/ Dr. Hickey 2009 Surgical History cholecystectomy 2012 Surgical History tonsillectomy Surgical History tubal ligation Surgical History urethral stretching 2008 Surgical History section
--- OUTSIDE RECORDS SUMMARY | 2018-10-24 12:39 | XMS REPORT ---
Author Author DIANN DAMON Organization [facility] Address [address] [place] [address] Care Team Providers Care Lead Pl Sql Developer Name Role Phone DIANN DAMON Unavailable PROBLEMS Type Condition ICD9-CM Code [id number]-RO Code Onset Dates Condition Status SNOMED Code Problem Epilepsy G40.909 Active 93681980 Problem Lumbago M54.5 Active 613403116 Problem Esophageal reflux K21.9 Active 858641666 Problem Generalized anxiety disorder F41.1 Active 043762774 Problem Interstitial cystitis N30.10 Active 672646175 Problem Major depressive disorder F32.9 Active 620024450 Problem Vitamin D deficiency E55.9 Active 94511364 Problem Chronic obstructive pulmonary disease, unspecified COPD type J44.9 Active 56692983 Problem Irritable bowel syndrome without diarrhea K58.9 Active 20960974 Problem Fibromyalgia M79.7 Active 38218235 Problem Tinnitus of both ears H93.13 Active 7708503245775 Problem On antiepileptic therapy Z79.899 Active 171438415 ALLERGIES No Information SOCIAL HISTORY Never Assessed PLAN OF CARE VITAL SIGNS MEDICATIONS Unknown [...]
--- OUTSIDE RECORDS SUMMARY | 2018-10-24 12:39 | XMS REPORT ---
Author Author [facility] Address [address] [place] [address] Care Team Providers Care Motorcycle Subassembler Name Role Phone NELSONPRADEEP BURGOSHANY Unavailable PROBLEMS Type Condition ICD9-CM Code ZZS77-MD Code Onset Dates Condition Status SNOMED Code Problem Fibromyalgia M79.7 Active 49054378 Problem Vitamin D deficiency E55.9 Active 45190618 Problem Irritable bowel syndrome without diarrhea K58.9 Active 67703196 Problem COPD exacerbation J44.1 Active 280959743 Problem Menopausal symptoms N95.1 Active 46967526 Problem Tinnitus of both ears H93.13 Active 4820806804722 Problem On antiepileptic therapy Z79.899 Active 270143464 Problem Irritable bowel syndrome with diarrhea K58.0 Active 284414163 Problem Chronic obstructive pulmonary disease, unspecified COPD type J44.9 Active 09849896 Problem Esophageal reflux K21.9 Active 316858194 Problem Interstitial cystitis N30.10 Active 296479443 Problem Generalized anxiety disorder F41.1 Active 504865326 Problem Major depressive disorder F32.9 Active 967563742 Problem Epilepsy G40.909 Active 86700741 Problem Lumbago M54.5 Active 646264529 ALLERGIES No Information ENCOUNTERS Encounter Location Date Diagnosis [facility] [id number] [place] [address] Sep, [facility] [id number] [place] [address] Sep, [facility] [id number] [place] [id number] Aug, [facility] [id number] [place] [address] Aug, Esophageal reflux K21.9 [facility] [id number] [place] [address] Aug, [facility] [address] [address] Aug, Esophageal reflux K21.9 ; Fluid level behind tympanic membrane of right ear H65.91 ; Fibromyalgia M79.7 and Lumbago M54.5 [facility] [id number] [place] [address] Aug, Esophageal reflux K21.9 [facility] [id number] [place] [address] July, [facility] [id number] [place] [address] July, [facility] [id number] [place] [address] July, Chronic obstructive pulmonary disease, unspecified COPD type J44.9 [place] [id number] [place] [address] July, [place] [id number] [place] [address] July, [place] [id number] [place] [address] July, Interstitial cystitis N30.10 ; Fibromyalgia M79.7 [...] Dysuria R30.0 and Generalized anxiety disorder F41.1 [facility] [id number] [place] [address] Jun, [place] [id number] [place] [address] Jun, Chronic obstructive pulmonary disease, unspecified COPD type J44.9 ; COPD exacerbation J44.1 and Sore throat J02.9 [facility] [id number] [place] [address] Jun, Fibromyalgia M79.7 [facility] [id number] [place] [address] Jun, Fibromyalgia M79.7 [facility] [address] [address] May, [facility] [address] [address] May, [facility] [address] [address] May, Fibromyalgia M79.7 [facility] [id number] [place] [address] Mar, [facility] [id number] [place] [address] Mar, Epilepsy G40.909 ; Lumbago M54.5 ; Esophageal reflux K21.9 ; Fibromyalgia M79.7 ; Chronic obstructive pulmonary disease, unspecified COPD type J44.9 ; Vitamin D deficiency E55.9 ; Fluid level behind tympanic membrane of right ear H65.91 ; Irritable bowel syndrome with diarrhea K58.0 ; Hematochezia K92.1 and Generalized anxiety disorder F41.1 [facility] [id number] [place] [address] Mar, [facility] [id number] [place] [address] Mar, [place] [id number] [place] [address] Mar, Vitamin D deficiency E55.9 [facility] [id number] [place] [address] Feb, [facility] [id number] [place] [address] Feb, [facility] [address] [address] Jan, Fibromyalgia M79.7 [facility] [id number] [place] [address] Jan, [facility] [address] [address] Jan, [facility] [address] [address] Jan, Vitamin D deficiency E55.9 [facility] [address] [address] Dec, [facility] [address] [address] Dec, [facility] [address] [address] Dec, Generalized anxiety disorder F41.1 [facility] [address] [address] Dec, Dysuria R30.0 ; Acute bilateral low back pain without sciatica M54.5 and Encounter for immunization Z23 [facility] [id number] [place] [address] Oct, [facility] [id number] [place] [address] Oct, Fibromyalgia M79.7 [facility] [id number] [place] [address] Sep, Dysuria R30.0 and Acute bronchitis, unspecified organism J20.9 [facility] [id number] [place] [address] Sep, [facility] [address] [address] Sep, Rectal prolapse K62.3 [place] [id number] [place] [address] Sep, Chronic obstructive pulmonary disease, unspecified COPD type J44.9 [facility] [id number] [place] [id number] Aug, [place] [address] [id number] Aug, [place] [address] [address] Aug, Light headedness R42 ; On antiepileptic therapy Z79.899 ; Vitamin D deficiency E55.9 ; Screening for lipid disorders Z13.220 ; Dysuria R30.0 and Hemorrhoids, unspecified hemorrhoid type K64.9 [place] [id number] [place] [address] Aug, Internal prolapsed hemorrhoids K64.8 [place] [id number] [place] [address] July, [place] [address] [address] May, [place] [id number] [place] [address] May, Fever and chills R50.9 and Influenza B J10.1 [place] [id number] [place] [address] Apr, [place] [id number] [place] [address] Apr, Fibromyalgia M79.7 and Generalized anxiety disorder F41.1 [place] [id number] [place] [address] Mar, Esophageal reflux K21.9 ; Generalized anxiety disorder F41.1 and Epilepsy G40.909 [place] [id number] [place] [address] 13 Mar, 2016 Epilepsy G40.909 ; Esophageal [...] disorders Z13.220 and On antiepileptic therapy Z79.899 [facility] [address] [address] Feb, [facility] [address] [address] Feb, [facility] [address] [address] Feb, Dysuria R30.0 and Plantar fasciitis of right foot M72.2 [facility] [id number] [place] [address] Feb, [facility] [address] [address] Feb, [facility] [id number] [place] [address] Jan, [facility] [id number] [place] [address] Jan, [facility] [id number] [place] [address] Dec, [facility] [address] [address] Dec, [facility] [address] [address] Dec, [facility] [id number] [place] [address] Nov, [facility] [id number] [place] [address] Sep, [facility] [id number] [place] [address] Aug, Shortness of breath R06.02 and Acute suppurative otitis media of right ear without spontaneous rupture of tympanic membrane, recurrence not specified H66.001 [place] [address] [address] Aug, Internal prolapsed hemorrhoids K64.8 [place] [id number] [place] [address] Jun, 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 [place] [id number] [place] [address] May, Fibromyalgia M79.7 ; Interstitial cystitis N30.10 ; Intractable migraine without aura and without status migrainosus G43.019 ; Low vitamin D level E55.9 and Ringing in right ear H93.11 [facility] [id number] [place] [address] May, [place] [id number] [place] [address] May, Low vitamin D level E55.9 [place] [id number] [place] [address] Apr, [facility] [id number] [place] [address] Mar, [place] [id number] [place] [address] Mar, Acute suppurative otitis media of right ear without spontaneous rupture of tympanic membrane, recurrence not specified H66.001 ; Encounter for immunization Z23 ; Asthma with acute exacerbation, unspecified asthma severity J45.901 ; Memory problem R41.3 ; Acute pain of right knee M25.561 ; Chronic fatigue R53.82 and Excessive urinary volume R35.8 [facility] [id number] [place] [address] Feb, [facility] [id number] [place] [address] Feb, [facility] [id number] [place] [address] Jan, [facility] [id number] [place] [address] Nov, Esophageal reflux 530.81 ; Anxiety 300.00 and Tingling in extremities 782.0 [facility] [id number] [place] [address] Oct, [facility] [id number] [place] [address] Oct, [facility] [id number] [place] [address] Oct, [facility] [id number] [place] [address] Oct, [facility] [id number] [place] [address] Oct, [facility] [id number] [place] [address] Sep, Other chronic allergic conjunctivitis 372.14 ; Irritable bowel syndrome 564.1 ; 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 ; Fibromyalgia 729.1 ; Extremity pain 729.5 and Neck pain 723.1 [facility] [address] [place] [address] Sep, [facility] [id number] [place] [address] Aug, [facility] [id number] [place] [address] Aug, [facility] [id number] [address] July, Vomiting 787.03 [facility] [address] [id number] [id number] July, Dental examination V72.2 [facility] [address] [place] [address] 14 Jun, 2014 [facility] [place] [facility] [address] [facility] [id number], [place] [address] Jun, [facility] [address] [facility] [id number], [place] [address] May, [facility] [address] [address] May, [facility] [address] [address] May, [facility] [address] [address] May, [facility] [id number] [address] May, [facility] [address] [address] May, [facility] [place] [facility] [address] [address] May, [facility] [place] [facility] [address] [address] May, [facility] [place] [facility] [address] [facility] [id number], [place] [address] May, [facility] [place] [facility] [address] [address] Apr, [facility] [place] [facility] [id number], [place] [address] Apr, [facility] [place] [facility] [address], [place] [address] Apr, [facility] [place] [facility] [address] [id number] [place] [address] Apr, [facility] [place] [facility] [address] [id number] [place] [address] Apr, [facility] [place] [facility] [address] [id number] [place] [address] Apr, [facility] [place] [facility] [address] [id number] [place] [address] Mar, [facility] [place] [facility] [address] [id number] [place] [address] Mar, [facility] [place] [facility] [address] [id number] [place] [address] Mar, [facility] [place] [facility] [address] [id number] [place] [address] Mar, [facility] [place] [facility] [address] [id number] [place] [address] Mar, [facility] [place] [facility] [address] [id number] [place] [address] Mar, [facility] [place] [facility] [address] [facility] [id number] [place] [address] Mar, [facility] [place] [facility] [address] [id number] [place] [address] Mar, [facility] [place] [facility] [address] [id number] [place] [address] Mar, [facility] [place] [facility] [address] [id number] [place] [address] Mar, [facility] [place] [facility] [address] [id number] [place] [address] Mar, [facility] [place] [facility] [address] [id number] [place] [address] Mar, [facility] [place] [facility] [address] [id number] [place] [address] Mar, [facility] [place] [facility] [address] [id number] [place] [address] Mar, [facility] [place] [facility] [address] [id number] [place] [address] Mar, [facility] [place] [facility] [address] [id number] [place] [address] Mar, [facility] [place] [facility] [address] [id number] [place] [address] Mar, [facility] [place] [facility] [address] [id number] [place] [address] Mar, [facility] [place] [facility] [address] [id number] [place] [address] Mar, [facility] [place] [facility] [address] [id number] [place] [address] Feb, [facility] [place] [facility] [address] [id number] [place] [address] Feb, [facility] [place] [facility] [address] [id number] [place] [address] Feb, [facility] [place] [facility] [address] [id number] [place] [address] Feb, [facility] [place] [facility] [address] [id number] [place] [address] Jan, [facility] [place] [facility] [address] [id number] [place] [address] Jan, [facility] [place] [facility] [address] [id number] [place] [address] 14 Jan, 2014 [facility] [place] [facility] [address] [id number] [place] [address] 14 Jan, 2014 [facility] [place] [facility] [address] [id number] [place] [address] 14 Jan, 2014 [facility] [place] [facility] [address] [id number] [place] [address] 14 Jan, 2014 [facility] [place] [facility] [address] [id number] [place] [address] 07 Jan, 2014 [facility] [place] [facility] [address] [id number] [place] [address] Jan, [facility] [place] [facility] [address] [id number] [place] [address] Dec, [facility] [place] [facility] [address] [id number] [place] [address] Dec, [facility] [place] [facility] [address] [id number] [place] [address] Dec, [facility] [place] [facility] [address] [id number] [place] [address] Dec, [facility] [place] [facility] [address] [id number] [place] [address] 22 Sep, 2013 [facility] [place] [facility] [address] [id number] [place] [address] 22 Sep, 2013 [facility] [place] [facility] [address] [id number] [place] [address] 08 Sep, 2013 [facility] [place] [facility] [address] [id number] [place] [address] 08 Sep, 2013 [facility] [place] [facility] [address] [id number], [place] [address] 05 Sep, 2013 [facility] [place] [facility] [address] [id number] [place] [address] 05 Sep, 2013 [facility] [place] [facility] [address] [id number] [place] [address] 04 Sep, 2013 [facility] [place] [facility] [address] [id number] [place] [address] 04 Sep, 2013 [facility] [place] [facility] [address] [id number] [place] [address] Nov, [facility] [place] [facility] [address] [id number] [place] [address] Nov, [facility] [place] [facility] [address] [id number] [place] [address] Oct, [facility] [place] [facility] [address] [id number] [place] [address] Oct, [facility] [place] [facility] [address] [id number] [place] [address] Sep, [facility] [place] [facility] [address] [id number] [place] [address] Sep, [facility] [place] [facility] [address] [id number] [place] [address] Sep, [facility] [place] [facility] [address] [id number] [place] [address] Sep, [facility] [place] [facility] [address] [id number] [place] [address] Sep, [facility] [place] [facility] [address] [id number] [place] [address] Sep, [facility] [place] [facility] [address] [id number] [place] [address] Aug, [facility] [place] [facility] [address] [id number] [place] [address] Aug, [facility] [place] [facility] [address] [id number] [place] [address] Aug, [facility] [place] [facility] [address] [id number] [place] [address] Aug, [facility] [place] [facility] [address] [id number] [place] [address] Aug, [facility] [place] [facility] [address] [id number] [place] [address] Aug, [facility] [place] [facility] [address] [id number] [place] [address] July, [facility] [place] [facility] [address] [id number] [place] [address] July, [facility] [place] [facility] [address] [id number] [place] [address] July, [facility] [place] [facility] [address] [id number] [place] [address] July, [facility] [place] [facility] [address] [id number] [place] [address] July, [facility] [place] [facility] [address] [id number] [place] [address] July, [facility] [place] [facility] [address] [id number] [place] [address] Jun, [facility] [place] [facility] [address] [id number] [place] [address] Jun, [facility] [place] [facility] [address] [id number] [place] [address] Jun, [facility] [place] [facility] [address] [id number] [place] [address] Jun, [facility] [place] [facility] [address] [id number] [place] [address] May, [facility] [place] [facility] [address] [id number] [place] [address] May, [facility] [place] [facility] [address] [id number] [place] [address] Apr, [facility] [place] [facility] [address] [id number] [place] [address] Apr, [facility] [place] [facility] [address] [id number] [place] [address] Apr, [facility] [place] [facility] [address] [id number] [place] [address] 07 Apr, 2013 [facility] [address] [id number] [place] [address] Mar, [facility] [place] [facility] [address] [id number] [place] [address] Mar, [facility] [place] [facility] [address] [id number] [place] [address] Mar, [facility] [place] [facility] [address] [id number] [place] [address] Mar, [facility] [place] [facility] [address] [id number] [place] [address] Mar, [facility] [place] [facility] [address] [id number] [place] [address] Mar, [facility] [address] [id number] [place] [address] Feb, [facility] [place] [facility] [address] [id number] [place] [address] Feb, [facility] [address] [id number] [place] [address] Jan, [facility] [place] [facility] [address] [id number] [place] [address] Jan, [facility] [place] [facility] [address] [id number] [place] [address] Jan, [facility] [address] [id number] [place] [address] Jan, [facility] [address] [id number] [place] [address] Nov, [facility] [facility] [address] [id number] [place] [address] Nov, [facility] [address] [id number] [place] [address] Oct, [facility] [address] [id number] [place] [address] Oct, [facility] [address] [id number] [place] [address] Sep, [facility] [address] [id number] [place] [address] Sep, [facility] [address] [id number] [place] [address] Sep, [facility] [address] [id number] [place] [address] Aug, [facility] [address] [id number] [place] [address] Aug, [facility] [address] [id number] [place] [address] Aug, [facility] [address] [id number] [place] [address] Aug, [facility] [address] [id number] [place] [address] July, [facility] [address] [id number] [place] [address] July, [facility] [address] [id number] [place] [address] July, [facility] [address] [id number] [place] [address] July, [facility] [address] [id number] [place] [address] Jun, [facility] [address] [id number] [place] [address] Jun[facility] [address] [id number] [place] [address] Jun, [facility] [address] [id number] [place] [address] May, [facility] [address] [id number] [place] [address] May, [facility] [address] [id number] [place] [address] Apr, [facility] [address] [id number] [place] [address] Apr, [facility] [address] [id number] [place] [address] Apr, [facility] [address] [id number] [place] [address] Apr, [facility] [address] [id number] [place] [address] Mar, [facility] [address] [id number] [place] [address] Mar, [facility] [address] [id number] [place] [address] Mar, [facility] [address] [id number] [place] [address] Mar, [facility] [address] [id number] [place] [address] Feb, [facility] [address] [id number] [place] [address] Feb, [facility] [address] [id number] [place] [address] Feb, [facility] [address] [id number] [place] [address] Feb, [facility] [address] [id number] [place] [id number] Feb, [facility] [place] [facility] [address] [id number] [place] [address] Feb, [facility] [place] [facility] [address] [id number] [place] [address] 04 Feb, 2012 [facility] [place] [facility] [address] [id number] [place] [address] Feb, [facility] [place] [facility] [address] [id number] [place] [address] Jan, [facility] [place] [facility] [address] [id number] [place] [address] 28 Jan, 2012 [facility] [place] [facility] [address] [id number] [place] [address] 15 Jan, 2012 [facility] [place] [facility] [address] [id number] [place] [address] 15 Jan, 2012 [facility] [place] [facility] [address] [id number] [place] [address] 14 Jan, 2012 [facility] [place] [facility] [address] [id number] [place] [address] Jan, [facility] [place] [facility] [address] [id number] [place] [address] Jan, [facility] [place] [facility] [address] [id number] [place] [address] Jan, [facility] [place] [facility] [address] [id number] [place] [address] Jan, [facility] [place] [facility] [address] [id number] [place] [address] Jan, [facility] [place] [facility] [address] [id number] [place] [address] Jan, [facility] [place] [facility] [address] [id number] [place] [address] Dec, [facility] [place] [facility] [address] [id number] [place] [address] Dec, [facility] [place] [facility] [address] [id number] [place] [address] Dec, [facility] [place] [facility] [address] [id number] [place] [address] Dec, [facility] [place] [facility] [address] [id number] [place] [address] Dec, [facility] [place] [facility] [address] [id number] [place] [address] Dec, [facility] [place] [facility] [address] [id number] [place] [address] Dec, [facility] [place] [facility] [address] [id number] [place] [address] Dec, [facility] [place] [facility] [address] [id number] [place] [address] Dec, [facility] [place] [facility] [address] [id number] [place] [address] Dec, [facility] [place] [facility] [address] [id number], [place] [address] Dec, [facility] [place] [facility] [address] [id number] [place] [address] Dec, [facility] [place] [facility] [address] [id number], [place] [address] Nov, [facility] [place] [facility] [address] [id number], [place] [address] Oct, [facility] [place] [facility] [address] [id number], [place] [address] Oct, [facility] [place] [facility] [address] [id number] [place] [address] Oct, [facility] [place] [facility] [address] [id number], [place] [address] Oct, [facility] [place] [facility] [address] [id number] [place] [address] Sep, [facility] [place] [facility] [address] [id number], [place] [address] Sep, [facility] [id number], [place] [address] Sep, [facility] [id number], [place] [address] Sep, [facility] [id number], [place] [address] Aug, [facility] [address], [place] [address] Aug, [facility] [address], [place] [address] Aug, [facility] [address], [place] [address] Aug, [facility] [address], [place] [address] Aug, [facility] [address], [place] [address] July, [facility] [address], [place] [address] July, [facility] [address] [address] July, [facility] [address] [id number], [place] [address] Dec, IMMUNIZATIONS No Known Immunizations SOCIAL HISTORY Never Assessed REASON FOR VISIT Lab (walk-in) PLAN OF CARE VITAL SIGNS MEDICATIONS Unknown Medications RESULTS No Results PROCEDURES Procedure Date Ordered Result Body Site LAB NOT BILLED BY [facility] Mar 19, 2017 SONG MAGANA* Mar 19, 2017 INSTRUCTIONS MEDICATIONS ADMINISTERED No Known Medications MEDICAL (GENERAL) HISTORY Type Description Date Medical History epilepsy Medical History interstitial cystitis Surgical History hysterectomy Surgical History breast biopsy w/ Dr. Hickey 2009 Surgical History cholecystectomy 2012 Surgical History tonsillectomy Surgical History tubal ligation Surgical History urethral stretching 2008 Surgical History section
--- OUTSIDE RECORDS SUMMARY | 2018-10-24 12:39 | XMS REPORT ---
Author Author DIANN DAMON [facility] eClinicalWorks Address Unknown Phone Unavailable Care Team Providers Care Special Effects Designer Name Role Phone DIANN DAMON Unavailable Allergies [...] Instructions Start Date End Date Status Dosage Protonix [facility] [address]-06 40 MG Orally Once a day Feb 26, 2015 1 tablet Results No Known Results Summary Purpose eClinicalWorks Submission
--- OUTSIDE RECORDS SUMMARY | 2018-10-24 12:39 | XMS REPORT ---
Author Author DIANN DAMON [facility] eClinicalWorks Address Unknown Phone Unavailable Care Team Providers Care Spool Sander Name Role Phone DIANN DAMON Unavailable Allergies [...] Instructions Start Date End Date Status Dosage Symbicort [facility] [address]-49 160-4.5 MCG/ACT Inhalation Twice a day 2 puffs Results No Known Results Summary Purpose eClinicalWorks Submission
--- OUTSIDE RECORDS SUMMARY | 2018-10-24 12:40 | XMS REPORT ---
Author Author DIANN DAMON [facility] Address [address] [place] [address] Care Team Providers Care Rating Examiner Name Role Phone DIANN DAMON Unavailable PROBLEMS Type Condition ICD9-CM Code EMB33-EH Code Onset Dates Condition Status SNOMED Code Problem Interstitial cystitis N30.10 Active 298927042 Problem Fibromyalgia M79.7 Active 90636167 Problem Irritable bowel syndrome without diarrhea K58.9 Active 19734546 Problem Lumbago M54.5 Active 191902058 Problem Esophageal reflux K21.9 Active 128088665 Problem Generalized anxiety disorder F41.1 Active 682188483 Problem Epilepsy G40.909 Active 59432137 Problem Major depressive disorder F32.9 Active 876304574 ALLERGIES Unknown Allergies SOCIAL HISTORY No smoking Hx information available PLAN OF CARE VITAL SIGNS MEDICATIONS Medication Instructions Dosage Frequency Start Date End Date Duration Status Tegretol 200 mg take 1 tablet (200 mg) by oral route every 12 hours July, 30 days Active RESULTS No Results PROCEDURES No Known procedures IMMUNIZATIONS No Known Immunizations
--- OUTSIDE RECORDS SUMMARY | 2018-10-24 12:40 | XMS REPORT ---
Author Author DIANN DAMON [facility] eClinicalWorks Address Unknown Phone Unavailable Care Team Providers Care Yarn Hauler Name Role Phone DIANN DAMON Unavailable Allergies [...] Instructions Start Date End Date Status Dosage Ranitidine HCl [facility] [address]-94 150 MG Orally twice a day October 01, 2015 1 tablet as needed Protonix [facility] [address]-71 40 mg Orally Once a day Feb 26, 2015 1 tablet Loratadine [facility] [address]-06 10 mg Orally Once a day 1 Tablet Results No Known Results Summary Purpose eClinicalWorks Submission
--- OUTSIDE RECORDS SUMMARY | 2018-10-24 12:40 | XMS REPORT ---
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 [address]-05 75 MG Orally 3 times a day October 11, 2014 1 capsule Results No Known Results Summary Purpose eClinicalWorks Submission
--- OUTSIDE RECORDS SUMMARY | 2018-10-24 12:40 | XMS REPORT ---
Author Author JALEEL WESTFALL Organization [facility] Address [address] [place] [address] Care Team Providers Care Bow Maker Gift Wrapping Name Role Phone JALEEL WESTFALL Unavailable PROBLEMS Type Condition ICD9-CM Code NBA63-JN Code Onset Dates Condition Status SNOMED Code Problem Major depressive disorder F32.9 Active 718541907 Problem Fibromyalgia M79.7 Active 73887923 Problem Lumbago M54.5 Active 328400076 Problem Epilepsy G40.909 Active 81672636 Problem Esophageal reflux K21.9 Active 167682428 Problem Generalized anxiety disorder F41.1 Active 384766839 Problem Interstitial cystitis N30.10 Active 606393095 Problem Irritable bowel syndrome with diarrhea K58.0 Active 184275370 Problem Chronic obstructive pulmonary disease, unspecified COPD type J44.9 Active 90127485 Problem On antiepileptic therapy Z79.899 Active 655656658 Problem Irritable bowel syndrome without diarrhea K58.9 Active 14493350 Problem Tinnitus of both ears H93.13 Active 0431054735006 Problem Vitamin D deficiency E55.9 Active 20064906 ALLERGIES Substance Reaction Event Type Date Status Sulfamethoxazole-Trimethoprim Unknown Drug Allergy May, Active Prednisone Unknown Drug Allergy May, Active Nitrofurantoin Unknown Drug Allergy May, Active Cephalexin Unknown Drug Allergy May, Active Amitiza Unknown Drug Allergy May, Active Tramadol Unknown Drug Allergy May, Active Artane unknown Drug Allergy May, Active Benzodiazepines Failed UDS Non Drug Allergy May, Active Hydrocodone Failed UDS Non Drug Allergy May, Active ENCOUNTERS Encounter Location Date Diagnosis [facility] [address] [facility] [id number] [address] Jun, Fibromyalgia M79.7 [facility] [address] [facility] [id number], [place] [address] May, [facility] [address] [id number] [place] [address] May, [facility] [id number] [place] [address] May, Fibromyalgia M79.7 [facility] [id number] [place] [address] Mar, [facility] [address] [address] Mar, Epilepsy G40.909 ; Lumbago M54.5 ; Esophageal reflux K21.9 ; Fibromyalgia M79.7 ; Chronic obstructive pulmonary disease, unspecified COPD type J44.9 ; Vitamin D deficiency E55.9 ; Fluid level behind tympanic membrane of right ear H65.91 ; Irritable bowel syndrome with diarrhea K58.0 ; Hematochezia K92.1 and Generalized anxiety disorder F41.1 [facility] [id number] [place] [address] Mar, [facility] [id number] [place] [address] Mar, [facility] [id number] [place] [address] Mar, Vitamin D deficiency E55.9 [facility] [id number] [place] [address] Feb, [facility] [id number] [place] [address] Feb, [facility] [id number] [place] [address] Jan, Fibromyalgia M79.7 [facility] [id number] [place] [address] Jan, [facility] [id number] [place] [address] Jan, [facility] [id number] [place] [address] Jan, Vitamin D deficiency E55.9 [facility] [address] [address] Dec, [facility] [address] [address] Dec, [facility] [address] [address] Dec, Generalized anxiety disorder F41.1 [place] [address] [address] Dec, Dysuria R30.0 ; Acute bilateral low back pain without sciatica M54.5 and Encounter for immunization Z23 [facility] [address] [address] Oct, [facility] [address] [address] Oct, Fibromyalgia M79.7 [facility] [address] [address] Sep, Dysuria R30.0 and Acute bronchitis, unspecified organism J20.9 [facility] [id number] [place] [address] Sep, [place] [address] [address] Sep, Rectal prolapse K62.3 [facility] [address] [address] Sep, Chronic obstructive pulmonary disease, unspecified COPD type J44.9 [place] [address] [id number] Aug, [facility] [address] [id number] Aug, [facility] [address] [address] Aug, Light headedness R42 ; On antiepileptic therapy Z79.899 ; Vitamin D deficiency E55.9 ; Screening for lipid disorders Z13.220 ; Dysuria R30.0 and Hemorrhoids, unspecified hemorrhoid type K64.9 [place] [address] [address] Aug, Internal prolapsed hemorrhoids K64.8 [place] [address] [address] July, [address] [address] May, [address] [address] May, Fever and chills R50.9 and Influenza B J10.[address] [address] Apr, [address] [address] Apr, Fibromyalgia M79.7 and Generalized anxiety disorder F41.[address] [address] Mar, Esophageal reflux K21.9 ; Generalized anxiety disorder F41.1 and Epilepsy G40.[address] [address] Mar, Epilepsy G40.909 ; Esophageal reflux K21.9 ; Fibromyalgia M79.7 ; Generalized anxiety disorder F41.1 ; Pain of left foot M79.672 ; Pain in right foot M79.671 ; Ear pain, right H92.01 ; Tinnitus of both ears H93.13 ; Chronic obstructive pulmonary disease, unspecified COPD type J44.9 ; Vitamin D deficiency E55.9 ; Screening for lipid disorders Z13.220 and On antiepileptic therapy Z79.[address] [address] Feb, [facility] [id number] [place] [address] Feb, [facility] [id number] [place] [address] Feb, Dysuria R30.0 and Plantar fasciitis of right foot M72.2 [facility] [id number] [place] [address] Feb, [facility] [id number] [place] [address] Feb, [facility] [id number] [place] [address] Jan, [facility] [id number] [place] [address] Jan, [facility] [id number] [place] [address] Dec, [facility] [id number] [place] [address] Dec, [facility] [id number] [place] [address] Dec, [facility] [id number] [place] [address] Nov, [facility] [id number] [place] [address] Sep, [facility] [id number] [place] [address] Aug, Shortness of breath R06.02 and Acute suppurative otitis media of right ear without spontaneous rupture of tympanic membrane, recurrence not specified H66.001 [facility] [address] [address] 14 Aug, 2016 Internal prolapsed hemorrhoids K64.8 [facility] [id number] [place] [address] Jun, 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 [place] [address] [address] May, Fibromyalgia M79.7 ; Interstitial cystitis N30.10 ; Intractable migraine without aura and without status migrainosus G43.019 ; Low vitamin D level E55.9 and Ringing in right ear H93.11 [place] [id number] [place] [address] May, [place] [address] [address] May, Low vitamin D level E55.9 [place] [address] [address] Apr, [place] [address] [address] Mar, [place] [id number] [place] [address] Mar, Acute suppurative otitis media of right ear without spontaneous rupture of tympanic membrane, recurrence not specified H66.001 ; Encounter for immunization Z23 ; Asthma with acute exacerbation, unspecified asthma severity J45.901 ; Memory problem R41.3 ; Acute pain of right knee M25.561 ; Chronic fatigue R53.82 and Excessive urinary volume R35.8 [place] [id number] [place] [address] Feb, [place] [id number] [place] [address] Feb, [place] [id number] [place] [address] Jan, [place] [id number] [place] [address] Nov, Esophageal reflux 530.81 ; Anxiety 300.00 and Tingling in extremities 782.0 [facility] [id number] [place] [address] Oct, [facility] [id number] [place] [address] Oct, [facility] [id number] [place] [address] Oct, [facility] [id number] [place] [address] Oct, [facility] [id number] [place] [address] Oct, [facility] [id number] [place] [address] Sep, Other chronic allergic conjunctivitis 372.14 ; Irritable bowel syndrome 564.1 ; 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 ; Fibromyalgia 729.1 ; Extremity pain 729.5 and Neck pain 723.1 [facility] [id number] [place] [address] Sep, [facility] [id number] [place] [address] Aug, [facility] [id number] [place] [address] Aug, [facility] [id number] [place] [address] July, Vomiting 787.03 [facility] [address] [place] [id number] July, Dental examination V72.2 [facility] [id number] [place] [address] Jun, [facility] [id number] [place] [address] Jun, [facility] [address] [place] [address] May, [facility] [place] [facility] [address] [id number] [place] [address] May, [facility] [place] [facility] [address] [facility] [id number] [place] [address] May, [facility] [place] [facility] [address] [facility] [id number] [place] [address] May, [facility] [place] [facility] [address] [facility] [id number] [place] [address] May, [facility] [place] [facility] [address] [id number] [place] [address] May, [facility] [place] [facility] [address] [facility] [id number] [place] [address] May, [facility] [place] [facility] [address] [facility] [id number] [place] [address] May, [facility] [place] [facility] [address] [facility] [id number] [place] [address] May, [facility] [place] [facility] [address] [facility] [id number] [place] [address] Apr, 2014 [facility] [place] [facility] [address] [facility] [id number] [place] [address] Apr, 2014 [facility] [place] [facility] [address] [facility] [id number] [place] [address] Apr, 2014 [facility] [place] [facility] [address] [facility] [id number] [place] [address] Apr, 2014 [facility] [place] [facility] [address] [facility] [id number] [place] [address] Apr, [facility] [place] [facility] [address] [facility] [id number] [place] [address] 05 Apr, 2014 [facility] [place] [facility] [address] [facility] [id number] [place] [address] Mar, [facility] [place] [facility] [address] [id number] [place] [address] Mar, [facility] [place] [facility] [address] [id number] [place] [address] Mar, [facility] [place] [facility] [address] [id number] [place] [address] Mar, [facility] [place] [facility] [address] [id number] [place] [address] Mar, [facility] [place] [facility] [address] [id number] [place] [address] Mar, [facility] [place] [facility] [address] [id number] [place] [address] Mar, [facility] [place] [facility] [address] [id number] [place] [address] Mar, [facility] [place] [facility] [address] [id number] [place] [address] Mar, [facility] [place] [facility] [address] [id number] [place] [address] Mar, [facility] [place] [facility] [address] [id number], [place] [address] Mar, [facility] [place] [facility] [address] [id number], [place] [address] Mar, [facility] [place] [facility] [address] [id number], [place] [address] Mar, [facility] [place] [facility] [address] [id number] [place] [address] Mar, [facility] [place] [facility] [address] [id number], [place] [address] Mar, [facility] [place] [facility] [address] [id number], [place] [address] Mar, [facility] [place] [facility] [address] [id number], [place] [address] Mar, [facility] [place] [facility] [address] [id number] [place] [address] Mar, [facility] [place] [facility] [address] [id number] [place] [address] Mar, [facility] [place] [facility] [address] [facility] [id number] [place] [address] Feb, [facility] [place] [facility] [address] [id number] [place] [address] Feb, [facility] [place] [facility] [address] [id number] [place] [address] Feb, [facility] [place] [facility] [address] [id number] [place] [address] Feb, [facility] [place] [facility] [address] [facility] [id number] [place] [address] Jan, [facility] [place] [facility] [address] [id number] [place] [address] Jan, [facility] [place] [facility] [address] [id number] [place] [address] Jan, [facility] [place] [facility] [address] [facility] [id number] [place] [address] 14 Jan, 2014 [facility] [place] [facility] [address] [id number] [place] [address] Jan, [facility] [place] [facility] [address] [id number], [place] [address] 14 Jan, 2014 [facility] [place] [facility] [address] [id number] [place] [address] Jan, [facility] [place] [facility] [address] [facility] [id number] [place] [address] 07 Jan, 2014 [facility] [place] [facility] [address] [facility] [id number] [place] [address] Dec, [facility] [place] [facility] [address] [id number] [place] [address] 20 Dec, 2013 [facility] [place] [facility] [address] [id number] [place] [address] 17 Dec, 2013 [facility] [place] [facility] [address] [id number] [place] [address] 17 Dec, 2013 [facility] [place] [facility] [address] [id number] [place] [address] 22 Nov, 2013 [facility] [place] [facility] [address] [id number] [place] [address] 22 Nov, 2013 [facility] [place] [facility] [address] [id number] [place] [address] 08 Nov, 2013 [facility] [place] [facility] [address] [id number] [place] [address] 08 Nov, 2013 [facility] [place] [facility] [address] [id number] [place] [address] 05 Sep, 2013 [facility] [place] [facility] [address] [id number] [place] [address] 05 Sep, 2013 [facility] [place] [facility] [address] [id number] [place] [address] 04 Nov, 2013 [facility] [place] [facility] [address] [id number] [place] [address] 04 Nov, 2013 [facility] [place] [facility] [address] [id number] [place] [address] 03 Nov, 2013 [facility] [place] [facility] [address] [id number] [place] [address] 03 Nov, 2013 [facility] [place] [facility] [address] [id number] [place] [address] 15 Oct, 2013 [facility] [place] [facility] [address] [id number] [place] [address] 15 Oct, 2013 [facility] [place] [facility] [address] [id number] [place] [address] Sep, [facility] [place] [facility] [address] [id number] [place] [address] Sep, [facility] [place] [facility] [address] [id number] [place] [address] Sep, [facility] [place] [facility] [address] [id number] [place] [address] Sep, [facility] [place] [facility] [address] [id number] [place] [address] Sep, [facility] [place] [facility] [address] [id number] [place] [address] Sep, [facility] [place] [facility] [address] [id number] [place] [address] Aug, [facility] [place] [facility] [address] [id number] [place] [address] Aug, [facility] [place] [facility] [address] [id number] [place] [address] Aug, [facility] [place] [facility] [address] [id number] [place] [address] Aug, [facility] [place] [facility] [address] [id number] [place] [address] Aug, [facility] [place] [facility] [address] [id number] [place] [address] Aug, [facility] [place] [facility] [address] [id number] [place] [address] July, [facility] [place] [facility] [address] [id number] [place] [address] July, [facility] [place] [facility] [address] [id number] [place] [address] July, [facility] [place] [facility] [address] [id number] [place] [address] July, [facility] [place] [facility] [address] [id number] [place] [address] July, [facility] [address] [id number] [place] [address] July, [facility] [place] [facility] [address] [id number] [place] [address] Jun, [facility] [place] [facility] [address] [id number] [place] [address] Jun, [facility] [place] [facility] [address] [id number] [place] [address] Jun, [facility] [place] [facility] [address] [id number] [place] [address] Jun, [facility] [place] [facility] [address] [id number] [place] [address] May, [facility] [place] [facility] [address] [id number] [place] [address] May, [facility] [place] [facility] [address] [id number] [place] [address] Apr, [facility] [place] [facility] [address] [id number] [place] [address] Apr, [facility] [place] [facility] [address] [id number] [place] [address] Apr, [facility] [place] [facility] [address] [id number] [place] [address] Apr, [facility] [place] [facility] [address] [id number] [place] [address] Mar, [facility] [place] [facility] [address] [id number] [place] [address] Mar, [facility] [place] [facility] [address] [id number] [place] [address] Mar, [facility] [place] [facility] [address] [id number] [place] [address] Mar, [facility] [address] [id number] [place] [address] Mar, [facility] [place] [facility] [address] [id number] [place] [address] Mar, [facility] [place] [facility] [address] [id number] [place] [address] Feb, [facility] [place] [facility] [address] [id number] [place] [address] Feb, [facility] [place] [facility] [address] [id number] [place] [address] Jan, [facility] [place] [facility] [address] [id number] [place] [address] Jan, [facility] [place] [facility] [address] [id number] [place] [address] Jan, [facility] [place] [facility] [address] [id number] [place] [address] Jan, [facility] [place] [facility] [address] [id number] [place] [address] Nov, [facility] [place] [facility] [address] [id number] [place] [address] Nov, [facility] [place] [facility] [address] [id number] [place] [address] Oct, [facility] [place] [facility] [address] [id number], [place] [address] Oct, [facility] [place] [facility] [address] [id number] [place] [address] Sep, [facility] [place] [facility] [address] [id number] [place] [address] Sep, [facility] [place] [facility] [address] [id number], [place] [address] Sep, [facility] [place] [facility] [address] [id number], [place] [address] Aug, [facility] [address] [id number] [place] [address] Aug, [facility] [address] [id number] [place] [address] Aug, [facility] [address] [facility] [id number] [place] [address] Aug, [facility] [address] [id number] [place] [address] July, [facility] [address] [id number] [place] [address] July, [facility] [address] [id number] [place] [address] July, [facility] [address] [id number], [place] [address] July, [facility] [address] [id number] [place] [address] Jun, [facility] [address] [facility] [id number] [place] [address] Jun, [facility] [address] [id number] [place] [address] Jun, [facility] [address] [id number], [place] [address] May, [facility] [address] [id number], [place] [address] May, [facility] [address] [id number], [place] [address] Apr, [facility] [address] [id number], [place] [address] Apr, [facility] [address] [facility] [id number], [place] [address] Apr, [facility] [address] [id number] [place] [address] Apr, [facility] [address] [id number] [place] [address] Mar, [facility] [place] [facility] [address] [id number] [place] [address] Mar, [facility] [address] [id number] [place] [address] Mar, [facility] [address] [id number] [place] [address] Mar, [facility] [address] [id number] [place] [address] Feb, [facility] [address] [id number] [place] [address] Feb, [facility] [address] [id number] [place] [address] Feb, [facility] [address] [id number] [place] [address] Feb, [facility] [address] [id number] [place] [address] Feb, [facility] [place] [facility] [address] [id number] [place] [address] Feb, [facility] [place] [facility] [address] [id number] [place] [address] Feb, [facility] [place] [facility] [address] [id number] [place] [address] Feb, [facility] [place] [facility] [address] [id number] [place] [address] Jan, [facility] [place] [facility] [address] [id number] [place] [address] Jan, [facility] [place] [facility] [address] [id number] [place] [address] 15 Jan, 2012 [facility] [place] [facility] [address] [id number] [place] [address] 15 Jan, 2012 [facility] [place] [facility] [address] [id number] [place] [address] 14 Jan, 2012 [facility] [place] [facility] [address] [id number] [place] [address] 13 Jan, 2012 [facility] [place] [facility] [address] [id number], [place] [address] 13 Jan, 2012 [facility] [place] [facility] [address] [id number] [place] [address] Jan, [facility] [place] [facility] [address] [id number] [place] [address] Jan, [facility] [place] [facility] [address] [id number] [place] [address] Jan, [facility] [place] [facility] [address] [id number] [place] [address] Jan, [facility] [place] [facility] [address] [id number] [place] [address] Dec, [facility] [place] [facility] [address] [id number] [place] [address] Dec, [facility] [place] [facility] [address] [id number], [place] [address] 29 Dec, 2011 [facility] [place] [facility] [address] [id number], [place] [address] 29 Dec, 2011 [facility] [place] [facility] [address] [id number] [place] [address] 29 Dec, 2011 [facility] [place] [facility] [address] [id number] [place] [address] 29 Dec, 2011 [facility] [place] [facility] [address] [id number] [place] [address] 19 Dec, 2011 [facility] [place] [facility] [address] [id number] [place] [address] Dec, [facility] [place] [facility] [address] [id number] [place] [address] Dec, [facility] [place] [facility] [address] [id number] [place] [address] Dec, [facility] [place] [facility] [address] [id number] [place] [address] Dec, [facility] [place] [facility] [address] [id number] [place] [address] Dec, [facility] [place] [facility] [address] [id number] [place] [address] Nov, [facility] [place] [facility] [address] [id number] [place] [address] Oct, [facility] [place] [facility] [address] [id number] [place] [address] Oct, [facility] [place] [facility] [address] [id number] [place] [address] Oct, [facility] [place] [facility] [address] [id number] [place] [address] Oct, [facility] [place] [facility] [address] [id number] [place] [address] Sep, [facility] [place] [facility] [address] [id number] [place] [address] Sep, [facility] [place] [facility] [address] [id number] [place] [address] Sep, [facility] [place] [facility] [address] [id number] [place] [address] Sep, [facility] [place] [facility] [address] [id number] [place] [address] Aug, [facility] [place] [facility] [address] [id number] [place] [address] Aug, [facility] [address] [facility] [id number], [place] [address] Aug, [facility] [address] [id number], [place] [address] Aug, [facility] [address] [facility] [id number], [place] [address] Aug, [facility] [address] [id number], [place] [address] July, [facility] [address] [facility] [id number], [place] [address] July, [facility] [id number], [place] [address] July, [facility] [address] [id number], [place] [address] Dec, IMMUNIZATIONS No Known Immunizations SOCIAL HISTORY Never Assessed REASON FOR VISIT Fever started yesterday of 103, dry cough with rib pain, nauses- [place] PLAN OF CARE Activity Details Follow Up prn with PCP Foraker Reason: VITAL SIGNS Height 58 in 2016-06-02 Weight 168.7 lbs 2016-06-02 Temperature 99.7 degrees Fahrenheit 2016-06-02 Heart Rate 98 bpm 2016-06-02 Respiratory Rate 22 2016-06-02 BMI 35.25 kg/m2 2016-06-02 Blood pressure systolic 118 mmHg 2016-06-02 Blood pressure diastolic 78 mmHg 2016-06-02 MEDICATIONS Medication Instructions Dosage Frequency Start Date End Date Duration Status Albuterol Sulfate 90 mcg/actuation 2 puffs by Inhalation route every 4-6 hours as needed PRN cough or wheezing Jun, Active Protonix 40 MG Orally Once a day 1 tablet 24h Feb, 90 days Active Ranitidine HCl 150 MG TAKE 1 TABLET BY MOUTH TWICE DAILY -MUST KEEP APPOINTMENT WITH DR FOR REFILLS 90 Active Estradiol 1 MG 1 tablet by Oral route 1 time per day Mar, Active Tegretol 200 MG Orally Twice a day 1 tablet 12h 90 days Active BusPIRone HCl 10 MG Orally 4 times a day 1 tablet 6h 90 days Active Tamiflu 75 MG Orally Twice a day 1 capsule 12h 21 May, 2016 5 day(s) Active Pristiq 50 MG Orally Once a day 1 tablet 24h 90 days Active Sucralfate 1 GM Orally 2 times a day 1 tablet on an empty stomach 12h 90 days Active Pantoprazole Sodium 40 MG TAKE 1 TABLET BY MOUTH DAILY 90 Active Cetirizine HCl 10 MG TAKE ONE TABLET BY MOUTH EVERY DAY NEEDED 30 Active Symbicort 160-4.5 MCG/ACT Inhalation Twice a day 2 puffs 12h Sep, 30 days Active Lyrica 150 MG Orally Twice a day 1 capsule 12h 30 Sep, 2014 90 days Active RESULTS Name Result Date Reference Range INFLUENZA A & B (IN HOUSE) 2016-06-02 INFLUENZA A negative INFLUENZA B Positive Control + Lot # [id number] Exp date 05/2018 PROCEDURES Procedure Date Ordered Result Body Site INFLUENZA ASSAY W/OPTIC June 02, 2016 INSTRUCTIONS MEDICATIONS ADMINISTERED No Known Medications MEDICAL (GENERAL) HISTORY Type Description Date Medical History epilepsy Medical History interstitial cystitis Surgical History hysterectomy Surgical History breast biopsy w/ Dr. Hickey 2009 Surgical History cholecystectomy 2012 Surgical History tonsillectomy Surgical History tubal ligation Surgical History urethral stretching 2008 Surgical History section
--- OUTSIDE RECORDS SUMMARY | 2018-10-24 12:40 | XMS REPORT ---
Author Author DIANN DAMON Organization 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 Role Phone DIANN DAMON Unavailable PROBLEMS Type Condition ICD9-CM Code NCE32-PO Code Onset Dates Condition Status SNOMED Code Problem Esophageal reflux K21.9 Active 732650162 Problem Epilepsy G40.909 Active 63275756 Problem Major depressive disorder F32.9 Active 667484157 Problem Fibromyalgia M79.7 Active 76671272 Problem Interstitial cystitis N30.10 Active 357983958 Problem Generalized anxiety disorder F41.1 Active 072526303 Problem Tinnitus of both ears H93.13 Active 2385499763490 Problem Chronic obstructive pulmonary disease, unspecified COPD type J44.9 Active 87831980 Problem Irritable bowel syndrome without diarrhea K58.9 Active 36710776 Problem Lumbago M54.5 Active 701784714 Problem Vitamin D deficiency E55.9 Active 87197820 Problem On antiepileptic therapy Z79.899 Active 598321188 ALLERGIES Unknown Allergies SOCIAL HISTORY No smoking Hx information available PLAN OF CARE VITAL SIGNS MEDICATIONS Medication Instructions Dosage Frequency Start Date End Date Duration Status Lyrica 150 MG Orally 2 times a day 1 capsule 12h 30 Sep, 2014 14 days Active RESULTS No Results PROCEDURES No Known procedures IMMUNIZATIONS No Known Immunizations
--- OUTSIDE RECORDS SUMMARY | 2018-10-24 12:41 | XMS REPORT ---
Author Author NELSON DIANN 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 Role Phone PRADEEP DAMONHANY Unavailable PROBLEMS Type Condition ICD9-CM Code GZO55-HC Code Onset Dates Condition Status SNOMED Code Problem Fibromyalgia M79.7 Active 09144405 Problem Vitamin D deficiency E55.9 Active 34442420 Problem Irritable bowel syndrome without diarrhea K58.9 Active 89385263 Problem COPD exacerbation J44.1 Active 188854696 Problem Menopausal symptoms N95.1 Active 56469911 Problem Tinnitus of both ears H93.13 Active 6392007626018 Problem On antiepileptic therapy Z79.899 Active 872480799 Problem Irritable bowel syndrome with diarrhea K58.0 Active 161748122 Problem Chronic obstructive pulmonary disease, unspecified COPD type J44.9 Active 92059312 Problem Esophageal reflux K21.9 Active 908961983 Problem Interstitial cystitis N30.10 Active 651424478 Problem Generalized anxiety disorder F41.1 Active 592552087 Problem Major depressive disorder F32.9 Active 977759804 Problem Epilepsy G40.909 Active 06212021 Problem Lumbago M54.5 Active 484591177 ALLERGIES No Information ENCOUNTERS Encounter Location Date Diagnosis [facility] [id number] [place] [address] Sep, [facility] [id number] [place] [address] Sep, [facility] [id number] [place] [address] Sep, [facility] [id number] [id number] Aug, Dental examination Z01.20 [facility] [id number] [place] [address] Aug, Abscess of axilla, left L02.412 [place] [id number] [place] [address] 08 Aug, 2017 Esophageal reflux K21.9 [facility] [id number] [place] [address] Aug, [place] [id number] [place] [address] Aug, Esophageal reflux K21.9 ; Fluid level behind tympanic membrane of right ear H65.91 ; Fibromyalgia M79.7 and Lumbago M54.5 [place] [id number] [place] [address] Aug, Esophageal reflux K21.9 [place] [id number] [place] [address] July, [place] [id number] [place] [address] July, [place] [id number] [place] [address] July, Chronic obstructive pulmonary disease, unspecified COPD type J44.9 [place] [id number] [place] [address] July, [place] [id number] [place] [address] July, [place] [id number] [place] [address] July, Interstitial cystitis N30.10 ; Fibromyalgia M79.7 [...] Dysuria R30.0 and Generalized anxiety disorder F41.1 [facility] [address] [address] Jun, [facility] [address] [address] Jun, Chronic obstructive pulmonary disease, unspecified COPD type J44.9 ; COPD exacerbation J44.1 and Sore throat J02.9 [place] [address] [address] Jun, Fibromyalgia M79.7 [place] [address] [address] Jun, Fibromyalgia M79.7 [facility] [address] [address] May, [place] [address] [address] May, [facility] [address] [address] May, Fibromyalgia M79.7 [facility] [address] [address] Mar, [place] [id number] [place] [address] Mar, Epilepsy G40.909 ; Lumbago M54.5 ; Esophageal reflux K21.9 ; Fibromyalgia M79.7 ; Chronic obstructive pulmonary disease, unspecified COPD type J44.9 ; Vitamin D deficiency E55.9 ; Fluid level behind tympanic membrane of right ear H65.91 ; Irritable bowel syndrome with diarrhea K58.0 ; Hematochezia K92.1 and Generalized anxiety disorder F41.1 [facility] [id number] [place] [address] Mar, [place] [address] [address] Mar, [facility] [id number] [place] [address] Mar, Vitamin D deficiency E55.9 [facility] [id number] [place] [address] Feb, [facility] [id number] [place] [address] Feb, [facility] [id number] [place] [address] Jan, Fibromyalgia M79.7 [facility] [address] [address] Jan, [facility] [id number] [place] [address] Jan, [facility] [id number] [place] [address] Jan, Vitamin D deficiency E55.9 [facility] [id number] [place] [address] Dec, [facility] [id number] [place] [address] Dec, [facility] [id number] [place] [address] Dec, Generalized anxiety disorder F41.1 [facility] [id number] [place] [address] Dec, Dysuria R30.0 ; Acute bilateral low back pain without sciatica M54.5 and Encounter for immunization Z23 [facility] [id number] [place] [address] Oct, [facility] [id number] [place] [address] Oct, Fibromyalgia M79.7 [facility] [id number] [place] [address] Sep, Dysuria R30.0 and Acute bronchitis, unspecified organism J20.9 [place] [id number] [place] [address] Sep, [facility] [id number] [place] [address] Sep, Rectal prolapse K62.3 [place] [address] [address] Sep, Chronic obstructive pulmonary disease, unspecified COPD type J44.9 [place] [address] [id number] Aug, [place] [address] [id number] Aug, [place] [id number] [place] [address] Aug, Light headedness R42 ; On antiepileptic therapy Z79.899 ; Vitamin D deficiency E55.9 ; Screening for lipid disorders Z13.220 ; Dysuria R30.0 and Hemorrhoids, unspecified hemorrhoid type K64.9 [place] [id number] [place] [address] Aug, Internal prolapsed hemorrhoids K64.8 [place] [id number] [place] [address] July, [place] [id number] [place] [address] May, [place] [id number] [place] [address] May, Fever and chills R50.9 and Influenza B J10.1 [place] [id number] [place] [address] Apr, [place] [address] [address] Apr, Fibromyalgia M79.7 and Generalized anxiety disorder F41.1 [facility] [id number] [place] [address] Mar, Esophageal reflux K21.9 ; Generalized anxiety disorder F41.1 and Epilepsy G40.909 [facility] [address] [address] Mar, Epilepsy G40.909 ; Esophageal reflux K21.9 ; Fibromyalgia M79.7 ; Generalized anxiety disorder F41.1 ; Pain of left foot M79.672 ; Pain in right foot M79.671 ; Ear pain, right H92.01 ; Tinnitus of both ears H93.13 ; Chronic obstructive pulmonary disease, unspecified COPD type J44.9 ; Vitamin D deficiency E55.9 ; Screening for lipid disorders Z13.220 and On antiepileptic therapy Z79.899 [facility] [address] [address] Feb, [facility] [address] [address] Feb, [facility] [address] [address] Feb, Dysuria R30.0 and Plantar fasciitis of right foot M72.2 [facility] [id number] [place] [address] Feb, [facility] [address] [address] Feb, [facility] [id number] [place] [address] Jan, [facility] [address] [address] Jan, [facility] [address] [address] Dec, [facility] [address] [address] Dec, [facility] [id number] [place] [address] Dec, [facility] [address] [place] [address] Nov, [facility] [id number] [place] [address] Sep, [facility] [id number] [place] [address] Aug, Shortness of breath R06.02 and Acute suppurative otitis media of right ear without spontaneous rupture of tympanic membrane, recurrence not specified H66.001 [place] [id number] [place] [address] 14 Aug, 2015 Internal prolapsed hemorrhoids K64.8 [place] [id number] [place] [address] Jun, 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 [facility] [id number] [place] [address] May, Fibromyalgia M79.7 ; Interstitial cystitis N30.10 ; Intractable migraine without aura and without status migrainosus G43.019 ; Low vitamin D level E55.9 and Ringing in right ear H93.11 [facility] [address] [address] May, [facility] [id number] [place] [address] May, Low vitamin D level E55.9 [facility] [id number] [place] [address] Apr, [facility] [address] [place] [address] Mar, [facility] [id number] [place] [address] Mar, Acute suppurative otitis media of right ear without spontaneous rupture of tympanic membrane, recurrence not specified H66.001 ; Encounter for immunization Z23 ; Asthma with acute exacerbation, unspecified asthma severity J45.901 ; Memory problem R41.3 ; Acute pain of right knee M25.561 ; Chronic fatigue R53.82 and Excessive urinary volume R35.8 [place] [address] [address] Feb, [place] [address] [address] Feb, [place] [address] [address] Jan, [place] [address] [address] Nov, Esophageal reflux 530.81 ; Anxiety 300.00 and Tingling in extremities 782.0 [place] [address] [address] Oct, [place] [address] [address] Oct, [place] [address] [address] Oct, [place] [id number] [place] [address] Oct, [place] [address] [address] Oct, [place] [id number] [place] [address] Sep, Other chronic allergic conjunctivitis 372.14 ; Irritable bowel syndrome 564.1 ; 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 ; Fibromyalgia 729.1 ; Extremity pain 729.5 and Neck pain 723.1 [place] [address] [address] Sep, [facility] [address] [facility] [id number] [address] Aug, [facility] [address] [facility]] [id number] [address] Aug, [facility] [id number] [address] July, Vomiting 787.03 [facility] [address] [id number] [address] July, Dental examination V72.2 [facility] [address] [place] [address] Jun, [facility] [id number] [address] Jun, [facility] [id number] [address] May, [facility] [place] [facility] [address] [facility]] [id number] [address] May, [facility] [place] [facility] [address] [address] May, [facility] [id number] [address] May, [facility] [place] [facility] [address] [address] 05 May, 2014 [facility] [place] [facility] [address] [facility]] [id number] [address] 05 May, 2014 [facility] [place] [facility] [address] [facility] 3] [id number] [place] [address] May, [facility] [place] [facility] [address] [facility]] [id number] [address] May, [facility] [place] [facility] [id number] [address] May, [facility] [place] [facility] [address] [id number] [place] [address] Apr, 2014 [facility] [place] [facility] [address] [id number] [place] [address] Apr, 2014 [facility] [place] [facility] [address] [id number] [place] [address] Apr, 2014 [facility] [place] [facility] [address] [id number] [place] [address] Apr, 2014 [facility] [place] [facility] [address] [id number] [place] [address] Apr, [facility] [place] [facility] [address] [id number] [place] [address] Apr, [facility] [place] [facility] [address] [facility]] [id number] [place] [address] Mar, [facility] [place] [facility] [address] [id number] [address] Mar, [facility] [place] [facility] [address] [id number] [place] [address] Mar, [facility] [place] [facility] [address] [facility]] [id number] [address] Mar, [facility] [place] [facility] [address] [facility]] [id number] [place] [address] Mar, [facility] [place] [facility] [address] [id number] [place] [address] Mar, [facility] [place] [facility] [address] [id number] [place] [address] Mar, [facility] [place] [facility] [address] [id number] [place] [address] Mar, [facility] [place] [facility] [address] [id number] [address] Mar, [facility] [place] [facility] [address] [id number] [place] [address] Mar, [facility] [address] [id number] [place] [address] Mar, [facility] [place] [facility] [address] [id number] [place] [address] Mar, [facility] [place] [facility] [address] [id number] [place] [address] Mar, [facility] [place] [facility] [address] [id number] [place] [address] Mar, [facility] [place] [facility] [address] [id number] [place] [address] Mar, [facility] [place] [facility] [address] [id number] [place] [address] Mar, [facility] [place] [facility] [address] [id number] [place] [address] Mar, [facility] [place] [facility] [address] [id number] [place] [address] Mar, [facility] [place] [facility] [address] [id number] [place] [address] Mar, [facility] [place] [facility] [address] [id number] [place] [address] Feb, [facility] [place] [facility] [address] [id number] [place] [address] Feb, [facility] [place] [facility] [address] [id number] [place] [address] Feb, [facility] [place] [facility] [address] [id number] [place] [address] Feb, [facility] [place] [facility] [address] [id number] [place] [address] Jan, [facility] [place] [facility] [address] [id number] [place] [address] Jan, [facility] [place] [facility] [address] [id number] [place] [address] 14 Jan, 2014 [facility] [place] [facility] [address] [id number] [place] [address] 14 Jan, 2014 [facility] [place] [facility] [address] [id number] [place] [address] 14 Jan, 2014 [facility] [place] [facility] [address] [id number] [place] [address] 14 Jan, 2014 [facility] [place] [facility] [address] [id number] [place] [address] 07 Jan, 2014 [facility] [place] [facility] [address] [id number] [place] [address] Jan, [facility] [place] [facility] [address] [id number] [place] [address] Dec, [facility] [place] [facility] [address] [id number] [place] [address] Dec, [facility] [place] [facility] [address] [id number] [place] [address] Dec, [facility] [place] [facility] [address] [id number] [place] [address] 17 Dec, 2013 [facility] [place] [facility] [address] [id number] [place] [address] 22 Nov, 2013 [facility] [place] [facility] [address] [id number] [place] [address] 22 Nov, 2013 [facility] [place] [facility] [address] [id number] [place] [address] 08 Sep, 2013 [facility] [place] [facility] [address] [id number] [place] [address] 08 Sep, 2013 [facility] [place] [facility] [address] [id number] [place] [address] 05 Sep, 2013 [facility] [place] [facility] [address] [id number] [place] [address] 05 Sep, 2013 [facility] [place] [facility] [address] [id number] [place] [address] 04 Nov, 2013 [facility] [place] [facility] [address] [id number] [place] [address] 04 Nov, 2013 [facility] [place] [facility] [address] [id number] [place] [address] 03 Nov, 2013 [facility] [place] [facility] [address] [id number] [place] [address] 03 Nov, 2013 [facility] [place] [facility] [address] [id number] [place] [address] Oct, [facility] [place] [facility] [address] [id number] [place] [address] Oct, [facility] [place] [facility] [address] [id number] [place] [address] Sep, [facility] [place] [facility] [address] [id number] [place] [address] Sep, [facility] [place] [facility] [address] [id number] [place] [address] Sep, [facility] [place] [facility] [address] [id number] [place] [address] Sep, [facility] [place] [facility] [address] [id number] [place] [address] Sep, [facility] [place] [facility] [address] [id number] [place] [address] Sep, [facility] [place] [facility] [address] [id number] [place] [address] Aug, [facility] [place] [facility] [address] [id number] [place] [address] Aug, [facility] [place] [facility] [address] [id number] [place] [address] Aug, [facility] [place] [facility] [address] [id number] [place] [address] Aug, [facility] [place] [facility] [address] [id number] [place] [address] Aug, [facility] [place] [facility] [address] [id number] [place] [address] Aug, [facility] [place] [facility] [address] [id number] [place] [address] July, [facility] [place] [facility] [address] [id number] [place] [address] July, [facility] [place] [facility] [address] [id number] [place] [address] July, [facility] [place] [facility] [address] [id number] [place] [address] July, [facility] [place] [facility] [address] [id number] [place] [address] July, [facility] [place] [facility] [address] [id number] [place] [address] July, [facility] [place] [facility] [address] [id number] [place] [address] Jun, [facility] [place] [facility] [address] [id number] [place] [address] Jun, [facility] [place] [facility] [address] [id number] [place] [address] Jun, [facility] [place] [facility] [address] [id number] [place] [address] Jun, [facility] [place] [facility] [address] [id number] [place] [address] May, [facility] [place] [facility] [address] [id number] [place] [address] May, [facility] [place] [facility] [address] [id number] [place] [address] Apr, [facility] [place] [facility] [address] [id number] [place] [address] 18 Apr, 2013 [facility] [place] [facility] [address] [id number] [place] [address] Apr, [facility] [place] [facility] [address] [id number] [place] [address] Apr, [facility] [place] [facility] [address] [id number] [place] [address] Mar, [facility] [place] [facility] [address] [id number] [place] [address] Mar, [facility] [place] [facility] [address] [id number] [place] [address] Mar, [facility] [place] [facility] [address] [id number] [place] [address] Mar, [facility] [place] [facility] [address] [id number] [place] [address] Mar, [facility] [place] [facility] [address] [id number] [place] [address] Mar, [facility] [place] [facility] [address] [id number] [place] [address] Feb, [facility] [place] [facility] [address] [id number] [address] Feb, [facility] [place] [facility] [address] [id number] [place] [address] Jan, [facility] [place] [facility] [address] [id number] [place] [address] Jan, [facility] [place] [facility] [address] [id number] [place] [address] Jan, [facility] [place] [facility] [address] [id number] [address] Jan, [facility] [place] [facility] [address] [id number] [place] [address] Nov, [facility] [address] [id number] [place] [address] Nov, [facility] [place] [facility] [address] [id number] [place] [address] Oct, [facility] [address] [id number] [place] [address] Oct, [facility] [place] [facility] [address] [id number] [place] [address] Sep, [facility] [address] [id number] [place] [address] Sep, [facility] [address] [id number] [place] [address] Sep, [facility] [address] [id number] [place] [address] Aug, [facility] [place] [facility] [address] [id number] [place] [address] Aug, [facility] [address] [id number] [place] [address] Aug, [facility] [place] [facility] [address] [id number] [place] [address] Aug, [facility] [address] [id number] [place] [address] July, [facility] [place] [facility] [address] [id number] [place] [address] July, [facility] [place] [facility] [address] [id number] [place] [address] July, [facility] [place] [facility] [address] [id number] [place] [address] July, [facility] [place] [facility] [address] [id number] [place] [address] Jun, [facility] [place] [facility] [address] [id number] [place] [address] Jun, [facility] [address] [id number] [place] [address] Jun, [facility] [place] [facility] [address] [id number] [place] [address] May, [facility] [place] [facility] [address] [id number] [place] [address] May, [facility] [place] [facility] [address] [id number] [place] [address] Apr, [facility] [place] [facility] [address] [id number] [place] [address] Apr, [facility] [place] [facility] [address] [id number] [place] [address] Apr, [facility] [place] [facility] [address] [id number] [place] [address] Apr, [facility] [place] [facility] [address] [id number] [place] [address] Mar, [facility] [place] [facility] [address] [id number] [place] [address] Mar, [facility] [place] [facility] [address] [id number] [place] [address] Mar, [facility] [place] [facility] [address] [id number] [place] [address] Mar, [facility] [place] [facility] [address] [id number] [place] [address] Feb, [facility] [place] [facility] [address] [id number] [place] [address] Feb, [facility] [place] [facility] [address] [id number] [place] [address] Feb, [facility] [place] [facility] [address] [id number] [address] 10 Feb, 2012 [facility] [place] [facility] [address] [id number] [place] [address] 10 Feb, 2012 [facility] [place] [facility] [address] [id number] [place] [address] 06 Feb, 2012 [facility] [place] [facility] [address] [facility] [id number] [place] [address] Feb, [facility] [place] [facility] [address] [id number] [place] [address] 04 Feb, 2012 [facility] [place] [facility] [address] [id number] [place] [address] 28 Jan, 2012 [facility] [place] [facility] [address] [id number] [place] [address] 28 Jan, 2012 [facility] [place] [facility] [address] [id number] [place] [address] 15 Jan, 2012 [facility] [place] [facility] [address] [id number] [place] [address] 15 Jan, 2012 [facility] [place] [facility] [address] [id number] [place] [address] 14 Jan, 2012 [facility] [place] [facility] [address] [id number] [place] [address] 13 Jan, 2012 [facility] [place] [facility] [address] [id number] [address] 13 Jan, 2012 [facility] [place] [facility] [address] [id number] [place] [address] 12 Jan, 2012 [facility] [place] [facility] [address] [id number] [place] [address] 12 Jan, 2012 [facility] [place] [facility] [address] [id number] [address] 06 Jan, 2012 [facility] [place] [facility] [address] [id number] [address] 06 Jan, 2012 [facility] [place] [facility] [address] [id number] [place] [address] Dec, [facility] [place] [facility] [address] [id number] [place] [address] Dec, [facility] [place] [facility] [address] [id number] [place] [address] Dec, [facility] [place] [facility] [address] [id number] [place] [address] Dec, [facility] [place] [facility] [address] [id number] [place] [address] Dec, [facility] [place] [facility] [id number] [place] [address], [place] [address] Dec, [facility] [place] [facility] [address] [id number] [place] [address] Dec, [facility] [place] [facility] [address] [id number] [place] [address] Dec, [facility] [place] [facility] [address] [id number] [place] [address] Dec, [facility] [place] [facility] [address] [id number] [place] [address] Dec, [facility] [place] [facility] [address] [facility] [id number] [place] [address] Dec, [facility] [place] [facility] [address] [id number] [place] [address] Dec, [facility] [place] [facility] [address] [id number] [place] [address] Nov, [facility] [place] [facility] [address] [id number] [place] [address] Oct, [facility] [place] [facility] [address] [id number] [place] [address] Oct, [facility] [place] [facility] [address] [id number] [place] [address] Oct, [facility] [address] [id number] [address] Oct, [facility] [id number] [address] Sep, [facility] [address] [id number] [address] Sep, [facility] [id number] [address] Sep, [facility] [id number] [address] Sep, [facility] [id number] [address] Aug, [facility] [id number] [address] Aug, [facility] [id number] [address] Aug, [facility] [id number] [address] Aug, [facility] [id number] [address] Aug, [facility] [address] [id number] [address] July, [facility] [address] [id number] [address] July, [facility] [address] [id number] [address] July, [facility] [id number] [address] Dec, IMMUNIZATIONS No Known Immunizations SOCIAL HISTORY Never Assessed REASON FOR VISIT Referral PLAN OF CARE VITAL SIGNS MEDICATIONS Unknown [...]
--- OUTSIDE RECORDS SUMMARY | 2018-10-24 12:42 | XMS REPORT ---
Author Author DIANN DAMON eClinicalWorks Address Unknown Phone Unavailable Care Team Providers Care Opticianry Teacher Name Role Phone DIANN DAMON CP Unavailable [...] Non Drug Allergy Problems Problem Type Condition Code Onset Dates Condition Status Assessment Encounter for immunization Z23 Active Problem Fibromyalgia M79.7 Active Assessment Acute suppurative otitis media of right ear without spontaneous rupture of tympanic membrane, recurrence not specified H66.001 Active Problem Lumbago M54.5 Active Problem Epilepsy G40.909 Active Problem Irritable bowel syndrome without diarrhea K58.9 Active Problem Generalized anxiety disorder F41.1 Active Problem Interstitial cystitis N30.10 Active Problem Major depressive disorder F32.9 Active Problem Esophageal reflux K21.9 Active Assessment Chronic fatigue R53.82 Active Assessment Acute pain of right knee M25.561 Active Assessment Memory problem R41.3 Active Assessment Excessive urinary volume R35.8 Active Assessment Asthma with acute exacerbation, unspecified asthma severity J45.901 Active Medications Medication Code System Code Instructions Start Date End Date Status Dosage PredniSONE [facility] [address]-44 50 MG Orally Once a day Mar 21, 2015 Mar 26, 2015 as directed Pristiq [facility] [address]-06 100 MG Orally Once a day 1 tablet Symbicort [facility] [address]-82 160-4.5 MCG/ACT Inhalation Twice a day 2 puffs Albuterol Sulfate [facility] [address]-54 90 mcg/actuation July 07, 2013 2 puffs by Inhalation route every 4-6 hours as needed PRN cough or wheezing Lyrica [facility] [address]-58 75 MG Orally 3 times a day October 11, 2014 1 capsule Naprosyn [facility] [address]-62 500 mg Nov 15, 2013 1 tablet by Oral route 2 times per day take with omprazole trazodone [facility] 0 50 mg Feb 22, 2014 take 1-2 tablet by Oral route 1 time per day at hs Tegretol [facility] [address]-10 200 mg July 21, 2013 take 1 tablet (200 mg) by oral route every 12 hours Augmentin [facility] [address]-50 875-125 MG Orally every 12 hrs Mar 21, 2015 Mar 31, 2015 1 tablet Albuterol Sulfate [facility] [address]-12 2.5 mg /3 mL (0.083 %) Mar 23, 2014 1 Each by Inhalation route every 6 hours for cough and wheeze PRN for wheezing or cough Estradiol [facility] [address]-14 1 mg Mar 29, 2014 1 tablet by Oral route 1 time per day Linzess [facility] [address]-84 290 MCG Orally Once a day greater than 30 minutes before first meal October 11, 2014 May 09, 2015 1 capsule cyclobenzaprine [facility] [address]-71 10 mg May 17, 2014 1 tablet 3 times per day PRN muscle spasm/pain Protonix [facility] [address]-80 40 MG Orally Once a day Feb 26, 2015 1 tablet Zantac [facility] 13241880141 150 MG Orally 2 times a day prn for heart burn 1-2 tablet Cetirizine HCl [facility] [address]-72 10 MG Orally Once a day October 11, 2014 May 09, 2015 1 tablet as needed Procedures Procedure Coding System Code Date Office Visit, Est Pt., Level 4 CPT-4 77728 Mar 21, 2015 VENIPUNCT, ROUTINE* CPT-4 64855 Mar 21, 2015 VITAMIN B-12 CPT-4 15724 Mar 21, 2015 ASSAY OF VITAMIN D CPT-4 92378 Mar 21, 2015 BLOOD FOLIC ACID SERUM CPT-4 22860 Mar 21, 2015 SINGLE IMMUNIZATION ADMIN CPT-4 88161 Mar 21, 2015 FLUARIX QUAD (3 & UP)--2014 CPT-4 69493 Mar 21, 2015 X-RAY EXAM OF KNEE, 3 CPT-4 35753 Mar 21, 2015 COMPLETE CBC W/AUTO DIFF WBC CPT-4 28246 Mar 21, 2015 ASSAY THYROID STIM HORMONE CPT-4 51455 Mar 21, 2015 COMPREHEN METABOLIC PANEL CPT-4 84475 Mar 21, 2015 GLYCATED HEMOGLOBIN TEST CPT-4 54980 Mar 21, 2015 Vital Signs Date/Time: Mar 21, 2015 Temperature 98.0 F Weight 161.5 lbs Height 58 in BMI 33.75 Index Blood Pressure Diastolic 76 mmHg Blood Pressure Systolic 120 mmHg Cardiac Monitoring Heart Rate 86 bpm Results Name Result Date Reference Range Unit Abnormality Flag ROUTINE VENIPUNCTURE Immunizations Vaccine Administration Date FLUARIX QUAD (3 & UP)-GSK-2014Mar 21, 2015 Summary Purpose eClinicalWorks Submission
--- OUTSIDE RECORDS SUMMARY | 2018-10-24 12:42 | XMS REPORT ---
Author Author DIANN DAMON [facility] eClinicalWorks Address Unknown Phone Unavailable Care Team Providers Care Psychology Teacher Name Role Phone DIANN DAMON Unavailable Allergies [...]
--- OUTSIDE RECORDS SUMMARY | 2018-10-24 12:42 | XMS REPORT ---
Author Author DIANN DAMON [facility] Address [address] [place] [address] Care Team Providers Care Precision Lens Grinder Name Role Phone DIANN DAMON Unavailable PROBLEMS Type Condition ICD9-CM Code [id number] Code Onset Dates Condition Status SNOMED Code Problem Epilepsy G40.909 Active 48429006 Problem Lumbago M54.5 Active 751318192 Problem Esophageal reflux K21.9 Active 177780260 Problem Generalized anxiety disorder F41.1 Active 941858567 Problem Interstitial cystitis N30.10 Active 665752861 Problem Major depressive disorder F32.9 Active 456341155 Problem Vitamin D deficiency E55.9 Active 18147060 Problem Chronic obstructive pulmonary disease, unspecified COPD type J44.9 Active 05724952 Problem Irritable bowel syndrome without diarrhea K58.9 Active 49834566 Problem Fibromyalgia M79.7 Active 29629697 Problem Tinnitus of both ears H93.13 Active 0490086547197 Problem On antiepileptic therapy Z79.899 Active 106849474 ALLERGIES Substance Reaction Event Type Date Status Sulfamethoxazole-Trimethoprim Unknown Drug Allergy Mar, Active Prednisone Unknown Drug Allergy Mar, Active Nitrofurantoin Unknown Drug Allergy Mar, Active Cephalexin Unknown Drug Allergy Mar, Active Amitiza Unknown Drug Allergy Mar, Active Tramadol Unknown Drug Allergy Mar, Active Artane unknown Drug Allergy Mar, Active Benzodiazepines Failed UDS Non Drug Allergy Mar, Active Hydrocodone Failed UDS Non Drug Allergy Mar, Active SOCIAL HISTORY No smoking Hx information available PLAN OF CARE Activity Details Follow Up 3 Months Reason:COPD VITAL SIGNS Height 58 in 2016-03-27 Weight 169.2 lbs 2016-03-27 Temperature 98.2 degrees Fahrenheit 2016-03-27 Heart Rate 84 bpm 2016-03-27 Respiratory Rate 20 2016-03-27 BMI 35.36 kg/m2 2016-03-27 Blood pressure systolic 112 mmHg 2016-03-27 Blood pressure diastolic 64 mmHg 2016-03-27 MEDICATIONS Medication Instructions Dosage Frequency Start Date End Date Duration Status Albuterol Sulfate (2.5 MG/3ML) 0.083% Inhalation every 4-6 hours as needed 3 ml 30 days Active Sucralfate 1 GM Orally 2 times a day 1 tablet on an empty stomach 12h Sep, 90 days Active Tegretol 200 MG Orally Twice a day 1 tablet 12h 90 days Active Symbicort 160-4.5 MCG/ACT Inhalation Twice a day 2 puffs 12h Sep, 30 days Active Protonix 40 MG Orally Once a day 1 tablet 24h Feb, 90 days Active Cyclobenzaprine HCl 10 MG Orally Three times a day 1 tablet 8h Sep, 90 days Active Cetirizine HCl 10 MG TAKE ONE TABLET BY MOUTH EVERY DAY NEEDED 30 Active Ranitidine HCl 150 MG Orally Once a day 1 tablet as needed 24h 90 days Active Loratadine 10 mg Orally Once a day 1 Tablet 24h 90 Active Estradiol 1 MG 1 tablet by Oral route 1 time per day Mar, Active BusPIRone HCl 10 MG Orally 4 times a day 1 tablet 6h 90 days Active Albuterol Sulfate 90 mcg/actuation 2 puffs by Inhalation route every 4-6 hours as needed PRN cough or wheezing Jun, Active Lyrica 150 MG Orally Twice a day 1 capsule 12h Sep, 90 days Active Pristiq 50 MG Orally Once a day 1 tablet 24h 90 days Active RESULTS No Results PROCEDURES Procedure Date Ordered Related Diagnosis Body Site Office Visit, Est Pt., Level 3 Mar 27, 2016 IMMUNIZATIONS No Known Immunizations
--- OUTSIDE RECORDS SUMMARY | 2018-10-24 12:42 | XMS REPORT ---
Author Author DIANN DAMON [facility] eClinicalWorks Address Unknown Phone Unavailable Care Team Providers Care Designer/Writer Name Role Phone DIANN DAMON Unavailable Allergies [...] Date End Date Status Dosage Lyrica [facility] [address]-47 150 MG Orally 2 times a day October 11, 2014 1 capsule Results No Known Results Summary Purpose eClinicalWorks Submission
--- OUTSIDE RECORDS SUMMARY | 2018-10-24 12:42 | XMS REPORT ---
Author Author NELSON DIANN [facility] Address [address] [place] [address] Care Team Providers Care Uptwist Spinner Name Role Phone PRADEEP DAMONHANY Unavailable PROBLEMS Type Condition ICD9-CM Code BBK68-TZ Code Onset Dates Condition Status SNOMED Code Problem Fibromyalgia M79.7 Active 53199108 Problem Vitamin D deficiency E55.9 Active 25115731 Problem Irritable bowel syndrome without diarrhea K58.9 Active 74052721 Problem COPD exacerbation J44.1 Active 215479580 Problem Menopausal symptoms N95.1 Active 99452050 Problem Tinnitus of both ears H93.13 Active 6512416724174 Problem On antiepileptic therapy Z79.899 Active 989066683 Problem Irritable bowel syndrome with diarrhea K58.0 Active 530031368 Problem Chronic obstructive pulmonary disease, unspecified COPD type J44.9 Active 80790176 Problem Esophageal reflux K21.9 Active 645872609 Problem Interstitial cystitis N30.10 Active 554228824 Problem Generalized anxiety disorder F41.1 Active 860940818 Problem Major depressive disorder F32.9 Active 187218538 Problem Epilepsy G40.909 Active 87797268 Problem Lumbago M54.5 Active 598430550 ALLERGIES No Information ENCOUNTERS Encounter Location Date Diagnosis [facility] [id number] [place] [address] Sep, [facility] [address] [place] [address] Sep, [facility] [address] [place] [id number] Aug, [facility] [id number] [place] [address] Aug, Abscess of axilla, left L02.412 [facility] [id number] [place] [address] 08 Aug, 2017 Esophageal reflux K21.9 [facility] [id number] [place] [address] Aug, [facility] [id number] [place] [address] Aug, Esophageal reflux K21.9 ; Fluid level behind tympanic membrane of right ear H65.91 ; Fibromyalgia M79.7 and Lumbago M54.5 [facility] [id number] [place] [address] Aug, Esophageal reflux K21.9 [facility] [id number] [place] [address] July, [facility] [id number] [place] [address] July, [facility] [id number] [place] [address] July, Chronic obstructive pulmonary disease, unspecified COPD type J44.9 [facility] [id number] [place] [address] July, [facility] [id number] [place] [address] July, [facility] [id number] [place] [address] July, Interstitial cystitis N30.10 ; Fibromyalgia M79.7 [...] and Generalized anxiety disorder F41.1 [facility] [id number] [place] [address] Jun, [facility] [address] [address] Jun, Chronic obstructive pulmonary disease, unspecified COPD type J44.9 ; COPD exacerbation J44.1 and Sore throat J02.9 [facility] [id number] [place] [address] Jun, Fibromyalgia M79.7 [facility] [id number] [place] [address] Jun, Fibromyalgia M79.7 [facility] [id number] [place] [address] May, [facility] [id number] [place] [address] May, [facility] [id number] [place] [address] May, Fibromyalgia M79.7 [facility] [id number] [place] [address] Mar, [facility] [id number] [place] [address] Mar, Epilepsy G40.909 ; Lumbago M54.5 ; Esophageal reflux K21.9 ; Fibromyalgia M79.7 ; Chronic obstructive pulmonary disease, unspecified COPD type J44.9 ; Vitamin D deficiency E55.9 ; Fluid level behind tympanic membrane of right ear H65.91 ; Irritable bowel syndrome with diarrhea K58.0 ; Hematochezia K92.1 and Generalized anxiety disorder F41.1 [facility] [address] [place] [address] Mar, [facility] [id number] [place] [address] Mar, [facility] [address] [place] [address] Mar, Vitamin D deficiency E55.9 [facility] [address] [address] Feb, [facility] [id number] [place] [address] Feb, [facility] [id number] [place] [address] Jan, Fibromyalgia M79.7 [facility] [id number] [place] [address] Jan, [facility] [id number] [place] [address] Jan, [facility] [id number] [place] [address] Jan, Vitamin D deficiency E55.9 [facility] [id number] [place] [address] Dec, [facility] [id number] [place] [address] Dec, [facility] [id number] [place] [address] Dec, Generalized anxiety disorder F41.1 [facility] [id number] [place] [address] Dec, Dysuria R30.0 ; Acute bilateral low back pain without sciatica M54.5 and Encounter for immunization Z23 [facility] [address] [place] [address] Oct, [facility] [id number] [place] [address] Oct, Fibromyalgia M79.7 [facility] [id number] [place] [address] Sep, Dysuria R30.0 and Acute bronchitis, unspecified organism J20.9 [facility] [address] [place] [address] Sep, [facility] [id number] [place] [address] Sep, Rectal prolapse K62.3 [facility] [address] [address] Sep, Chronic obstructive pulmonary disease, unspecified COPD type J44.9 [facility] [address] [id number] Aug, [facility] [address] [id number] Aug, [facility] [address] [address] Aug, Light headedness R42 ; On antiepileptic therapy Z79.899 ; Vitamin D deficiency E55.9 ; Screening for lipid disorders Z13.220 ; Dysuria R30.0 and Hemorrhoids, unspecified hemorrhoid type K64.9 [facility] [id number] [place] [address] Aug, Internal prolapsed hemorrhoids K64.8 [facility] [id number] [place] [address] July, [facility] [id number] [place] [address] May, [facility] [id number] [place] [address] May, Fever and chills R50.9 and Influenza B J10.1 [facility] [id number] [place] [address] Apr, [facility] [address] [address] Apr, Fibromyalgia M79.7 and Generalized anxiety disorder F41.1 [facility] [address] [address] Mar, Esophageal reflux K21.9 ; Generalized anxiety disorder F41.1 and Epilepsy G40.909 [facility] [address] [address] Mar, Epilepsy G40.909 ; Esophageal reflux K21.9 ; Fibromyalgia M79.7 ; Generalized anxiety disorder F41.1 ; Pain of left foot M79.672 ; Pain in right foot M79.671 ; Ear pain, right H92.01 ; Tinnitus of both ears H93.13 ; Chronic obstructive pulmonary disease, unspecified COPD type J44.9 ; Vitamin D deficiency E55.9 ; Screening for lipid disorders Z13.220 and On antiepileptic therapy Z79.899 [facility] [address] [address] Feb, [facility] [address] [address] Feb, [facility] [address] [address] Feb, Dysuria R30.0 and Plantar fasciitis of right foot M72.2 [facility] [address] [address] Feb, [facility] [address] [address] Feb, [facility] [address] [address] Jan, [facility] [address] [address] Jan, [facility] [address] [address] Dec, [facility] [address] [address] Dec, [facility] [address] [address] Dec, [facility] [address] [address] Nov, [facility] [id number] [place] [address] Sep, 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 [facility] [id number] [place] [address] May, Fibromyalgia M79.7 ; Interstitial cystitis N30.10 ; Intractable migraine without aura and without status migrainosus G43.019 ; Low vitamin D level E55.9 and Ringing in right ear H93.11 [facility] [address] [place] [address] May, [facility] [id number] [place] [address] May, Low vitamin D level E55.9 [facility] [id number] [place] [address] Apr, [facility] [id number] [place] [address] Mar, [facility] [id number] [place] [address] Mar, Acute suppurative otitis media of right ear without spontaneous rupture of tympanic membrane, recurrence not specified H66.001 ; Encounter for immunization Z23 ; Asthma with acute exacerbation, unspecified asthma severity J45.901 ; Memory problem R41.3 ; Acute pain of right knee M25.561 ; Chronic fatigue R53.82 and Excessive urinary volume R35.8 [facility] [address] [address] Feb, [facility] [address] [address] Feb, [facility] [address] [address] Jan, [facility] [address] [address] Nov, Esophageal reflux 530.81 ; Anxiety 300.00 and Tingling in extremities 782.0 [facility] [address] [address] Oct, [facility] [address] [address] Oct, [facility] [address] [address] Oct, [facility] [address] [address] Oct, [facility] [id number] [place] [address] Oct, [facility] [address] [address] Sep, Other chronic allergic conjunctivitis 372.14 ; Irritable bowel syndrome 564.1 ; 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 ; Fibromyalgia 729.1 ; Extremity pain 729.5 and Neck pain 723.1 [facility] [id number] [place] [address] Sep, [facility] [address] [address] Aug, [facility] [place] [facility] [address] [id number], [place] [address] Aug, [facility] [place] [facility] [address] [id number] [place] [address] July, Vomiting 787.03 [facility] [place] [facility] [address] [id number] [place] [address] July, Dental examination V72.2 [facility] [place] [facility] [address] [id number], [place] [address] Jun, [facility] [place] [facility] [address] [id number] [place] [address] Jun, [facility] [place] [facility] [address] [id number], [place] [address] May, [facility] [place] [facility] [address] [id number], [place] [address] May, [facility] [place] [facility] [address] [id number], [place] [address] May, [facility] [place] [facility] [address] [id number], [place] [address] May, [facility] [place] [facility] [address] [id number], [place] [address] May, [facility] [place] [facility] [address] [id number], [place] [address] May, [facility] [place] [facility] [address] [id number], [place] [address] May, [facility] [place] [facility] [address] [id number], [place] [address] May, [facility] [place] [facility] [address] [facility] [id number], [place] [address] May, [facility] [place] [facility] [address] [id number], [place] [address] Apr, [facility] [place] [facility] [address] [id number] [place] [address] Apr, 2014 [facility] [place] [facility] [address] [id number] [place] [address] Apr, [facility] [place] [facility] [address] [id number] [place] [address] Apr, 2014 [facility] [place] [facility] [address] [id number] [place] [address] Apr, [facility] [place] [facility] [address] [id number] [place] [address] Apr, [facility] [place] [facility] [address] [id number] [place] [address] Mar, [facility] [place] [facility] [address] [id number] [place] [address] Mar, [facility] [place] [facility] [address] [id number] [place] [address] Mar, [facility] [place] [facility] [address] [id number] [place] [address] Mar, [facility] [place] [facility] [address] [id number] [place] [address] Mar, [facility] [place] [facility] [address] [id number] [place] [address] Mar, [facility] [place] [facility] [address] [id number] [place] [address] Mar, [facility] [place] [facility] [address] [id number] [place] [address] Mar, [facility] [place] [facility] [address] [id number] [place] [address] Mar, [facility] [place] [facility] [address] [id number] [place] [address] Mar, [facility] [place] [facility] [address] [id number] [place] [address] Mar, [facility] [place] [facility] [address] [id number] [place] [address] Mar, [facility] [place] [facility] [address] [id number] [place] [address] Mar, [facility] [place] [facility] [address] [id number] [place] [address] Mar, [facility] [place] [facility] [address] [id number] [place] [address] Mar, [facility] [place] [facility] [address] [id number] [place] [address] Mar, [facility] [place] [facility] [address] [id number] [place] [address] Mar, [facility] [place] [facility] [address] [id number] [place] [address] Mar, [facility] [place] [facility] [address] [id number], [place] [address] Mar, [facility] [place] [facility] [address] [id number] [place] [address] Feb, [facility] [place] [facility] [address] [id number] [place] [address] Feb, [facility] [place] [facility] [address] [id number], [place] [address] Feb, [facility] [place] [facility] [address] [id number], [place] [address] Feb, [facility] [place] [facility] [address] [id number] [place] [address] Jan, [facility] [place] [facility] [address] [id number], [place] [address] 20 Jan, 2014 [facility] [place] [facility] [address] [id number] [place] [address] 14 Jan, 2014 [facility] [place] [facility] [address] [id number] [place] [address] 14 Jan, 2014 [facility] [place] [facility] [address] [id number] [place] [address] 14 Jan, 2014 [facility] [place] [facility] [address] [id number] [place] [address] 14 Jan, 2014 [facility] [place] [facility] [address] [id number] [place] [address] 07 Jan, 2014 [facility] [place] [facility] [address] [id number] [place] [address] 07 Jan, 2014 [facility] [place] [facility] [address] [id number] [place] [address] 20 Dec, 2013 [facility] [place] [facility] [address] [id number] [place] [address] 20 Dec, 2013 [facility] [place] [facility] [address] [id number] [place] [address] 17 Dec, 2013 [facility] [place] [facility] [address] [id number] [place] [address] 17 Dec, 2013 [facility] [place] [facility] [address] [id number] [place] [address] 22 Sep, 2013 [facility] [place] [facility] [address] [id number] [place] [address] 22 Sep, 2013 [facility] [place] [facility] [address] [id number] [place] [address] 08 Sep, 2013 [facility] [place] [facility] [address] [id number] [place] [address] 08 Sep, 2013 [facility] [place] [facility] [address] [id number] [place] [address] 05 Sep, 2013 [facility] [place] [facility] [address] [id number] [place] [address] 05 Sep, 2013 [facility] [place] [facility] [address] [id number] [place] [address] 04 Sep, 2013 [facility] [place] [facility] [address] [id number] [place] [address] 04 Nov, 2013 [facility] [place] [facility] [address] [id number] [place] [address] Nov, [facility] [place] [facility] [address] [id number] [place] [address] Nov, [facility] [place] [facility] [address] [id number] [place] [address] Oct, [facility] [place] [facility] [address] [id number] [place] [address] Oct, [facility] [place] [facility] [address] [id number] [place] [address] Sep, [facility] [place] [facility] [address] [id number] [place] [address] Sep, [facility] [place] [facility] [address] [id number] [place] [address] Sep, [facility] [place] [facility] [address] [id number] [place] [address] Sep, [facility] [place] [facility] [address] [id number] [place] [address] Sep, [facility] [place] [facility] [address] [id number] [place] [address] Sep, [facility] [place] [facility] [address] [id number] [place] [address] Aug, [facility] [place] [facility] [address] [id number] [place] [address] Aug, [facility] [place] [facility] [address] [id number] [place] [address] Aug, [facility] [place] [facility] [address] [id number] [place] [address] Aug, [facility] [place] [facility] [address] [id number] [place] [address] Aug, [facility] [place] [facility] [address] [id number] [place] [address] Aug, [facility] [place] [facility] [address] [id number] [place] [address] July, [facility] [place] [facility] [address] [id number] [place] [address] July, [facility] [place] [facility] [address] [id number] [place] [address] July, [facility] [place] [facility] [address] [id number] [place] [address] July, [facility] [place] [facility] [address] [id number] [place] [address] July, [facility] [place] [facility] [address] [id number] [place] [address] July, [facility] [place] [facility] [address] [id number] [place] [address] Jun, [facility] [place] [facility] [address] [id number] [place] [address] Jun, [facility] [place] [facility] [address] [id number] [place] [address] Jun, [facility] [place] [facility] [address] [id number] [place] [address] Jun, [facility] [place] [facility] [address] [id number] [place] [address] May, [facility] [place] [facility] [address] [id number] [place] [address] May, [facility] [place] [facility] [address] [id number] [place] [address] Apr, [facility] [place] [facility] [address] [id number] [place] [address] Apr, [facility] [place] [facility] [address] [id number] [place] [address] 07 Apr, 2013 [facility] [place] [facility] [address] [id number] [place] [address] 07 Apr, 2013 [facility] [place] [facility] [address] [id number] [place] [address] Mar, [facility] [place] [facility] [address] [id number] [place] [address] Mar, [facility] [place] [facility] [address] [id number] [place] [address] Mar, [facility] [place] [facility] [address] [id number] [place] [address] Mar, [facility] [place] [facility] [address] [id number] [place] [address] Mar, [facility] [place] [facility] [address] [id number] [place] [address] Mar, [facility] [place] [facility] [address] [id number] [place] [address] Feb, [facility] [place] [facility] [address] [id number] [place] [address] Feb, [facility] [place] [facility] [address] [id number] [place] [address] Jan, [facility] [place] [facility] [address] [id number] [place] [address] Jan, [facility] [place] [facility] [address] [id number] [place] [address] Jan, [facility] [place] [facility] [address] [id number] [place] [address] Jan, [facility] [place] [facility] [address] [id number] [place] [address] Nov, [facility] [place] [facility] [address] [id number] [place] [address] Nov, [facility] [address] [id number] [place] [address] Oct, [facility] [place] [facility] [address] [id number] [place] [address] Oct, [facility] [place] [facility] [address] [id number] [place] [address] Sep, [facility] [place] [facility] [address] [id number] [place] [address] Sep, [facility] [address] [id number] [place] [address] Sep, [facility] [place] [facility] [address] [id number] [place] [address] Aug, [facility] [place] [facility] [address] [id number] [place] [address] Aug, [facility] [place] [facility] [address] [id number] [place] [address] Aug, [facility] [place] [facility] [address] [id number] [place] [address] Aug, [facility] [place] [facility] [address] [id number] [place] [address] July, [facility] [place] [facility] [address] [id number] [address] July, [facility] [place] [facility] [address] [id number], [place] [address] July, [facility] [place] [facility] [address] [id number] [place] [address] July, [facility] [place] [facility] [address] [id number] [place] [address] Jun, [facility] [place] [facility] [address] [id number] [place] [address] Jun, [facility] [place] [facility] [address] [id number] [place] [address] Jun, [facility] [address] [id number] [place] [address] May, [facility] [place] [facility] [address] [id number] [place] [address] May, [facility] [address] [id number] [place] [address] Apr, [facility] [place] [facility] [address] [id number] [place] [address] Apr, [facility] [address] [id number] [place] [address] Apr, [facility] [address] [id number] [place] [address] Apr, [facility] [address] [id number] [place] [address] Mar, [facility] [address] [id number] [place] [address] Mar, [facility] [place] [facility] [address] [id number] [place] [address] Mar, [facility] [address] [id number] [place] [address] Mar, [facility] [address] [id number] [place] [address] Feb, [facility] [address] [id number] [place] [address] Feb, [facility] [place] [facility] [address] [id number] [place] [address] Feb, [facility] [place] [facility] [address] [id number] [place] [address] Feb, [facility] [place] [facility] [address] [id number] [place] [address] Feb, [facility] [place] [facility] [address] [id number] [place] [address] 06 Feb, 2012 [facility] [place] [facility] [address] [id number] [place] [address] Feb, [facility] [place] [facility] [address] [id number] [place] [address] 04 Feb, 2012 [facility] [place] [facility] [address] [id number] [place] [address] Jan, [facility] [place] [facility] [address] [id number] [place] [address] 28 Jan, 2012 [facility] [place] [facility] [address] [id number] [place] [address] 15 Jan, 2012 [facility] [place] [facility] [address] [id number] [place] [address] 15 Jan, 2012 [facility] [place] [facility] [address] [id number] [place] [address] 14 Jan, 2012 [facility] [place] [facility] [address] [id number] [place] [address] 13 Jan, 2012 [facility] [place] [facility] [address] [id number] [place] [address] 13 Jan, 2012 [facility] [place] [facility] [address] [id number] [place] [address] Jan, [facility] [place] [facility] [address] [id number], [place] [address] Jan, [facility] [place] [facility] [address] [id number] [place] [address] Jan, [facility] [place] [facility] [address] [id number] [place] [address] Jan, [facility] [place] [facility] [address] [id number] [place] [address] 31 Dec, 2011 [facility] [place] [facility] [address] [id number] [place] [address] Dec, [facility] [place] [facility] [address] [id number] [place] [address] Dec, [facility] [place] [facility] [address] [id number] [place] [address] Dec, [facility] [place] [facility] [address] [id number] [place] [address] Dec, [facility] [place] [facility] [address] [id number] [place] [address] Dec, [facility] [place] [facility] [address] [id number] [place] [address], [place] [address] Dec, [facility] [place] [facility] [address] [id number] [place] [address] Dec, [facility] [place] [facility] [address] [id number] [place] [address] Dec, [facility] [place] [facility] [address] [id number] [place] [address] Dec, [facility] [place] [facility] [address] [id number] [place] [address] Dec, [facility] [place] [facility] [address] [id number] [place] [address] Dec, [facility] [place] [facility] [address] [id number] [place] [address] Nov, [facility] [place] [facility] [address] [id number], [place] [address] Oct, [facility] [place] [facility] [address] [id number] [place] [address] Oct, [facility] [place] [facility] [address] [id number] [place] [address] Oct, [facility] [place] [facility] [address] [id number] [place] [address] Oct, [facility] [place] [facility] [address] [facility] [id number] [address] Sep, [facility] [address] [facility] [id number], [place] [address] Sep, [facility] [address] [facility] [id number], [place] [address] Sep, [facility] [address] [facility] [id number], [place] [address] Sep, [facility] [address] [facility] [id number], [place] [address] Aug, [facility] [address] [facility] [id number], [place] [address] Aug, [facility] [id number], [place] [address] Aug, [facility] [id number], [place] [address] Aug, [facility] [id number], [place] [address] Aug, [facility] [id number], [place] [address] July, [facility] [address] [id number], [place] [address] July, [facility] [id number], [place] [address] July, [facility] [address] [id number], [place] [address] Dec, IMMUNIZATIONS No Known Immunizations SOCIAL HISTORY [...]
--- OUTSIDE RECORDS SUMMARY | 2018-10-24 12:43 | XMS REPORT ---
Author Author LILIAN JORGE [facility] Address [address] [place] [address] Care Team Providers Care Steam Pan Sponger Name Role Phone JORGE QUINTANA Unavailable PROBLEMS Type Condition ICD9-CM Code VVA05-SZ Code Onset Dates Condition Status SNOMED Code Problem Major depressive disorder F32.9 Active 859831426 Problem Fibromyalgia M79.7 Active 70825380 Problem Lumbago M54.5 Active 367155757 Problem Epilepsy G40.909 Active 59348426 Problem Esophageal reflux K21.9 Active 814845789 Problem Generalized anxiety disorder F41.1 Active 334697049 Problem Interstitial cystitis N30.10 Active 484791080 Problem Irritable bowel syndrome with diarrhea K58.0 Active 536596263 Problem Chronic obstructive pulmonary disease, unspecified COPD type J44.9 Active 91271648 Problem On antiepileptic therapy Z79.899 Active 139472962 Problem Irritable bowel syndrome without diarrhea K58.9 Active 11158660 Problem Tinnitus of both ears H93.13 Active 6313504404886 Problem Vitamin D deficiency E55.9 Active 84502244 ALLERGIES Substance Reaction Event Type Date Status Sulfamethoxazole-Trimethoprim Unknown Drug Allergy Sep, Active Prednisone Unknown Drug Allergy Sep, Active Nitrofurantoin Unknown Drug Allergy Sep, Active Cephalexin Unknown Drug Allergy Sep, Active Amitiza Unknown Drug Allergy Sep, Active Tramadol Unknown Drug Allergy Sep, Active Artane unknown Drug Allergy Sep, Active Benzodiazepines Failed UDS Non Drug Allergy Sep, Active Hydrocodone Failed UDS Non Drug Allergy Sep, Active ENCOUNTERS Encounter Location Date Diagnosis [facility] [address] [facility] [id number] [address] July, [facility] [address] [facility] [id number] [address] Jun, Fibromyalgia M79.7 [facility] [address] [address] Jun, Fibromyalgia M79.7 [facility] [id number] [place] [address] May, [facility] [id number] [place] [address] May, [facility] [id number] [place] [address] May, Fibromyalgia M79.7 [facility] [id number] [place] [address] Mar, [facility] [id number] [place] [address] Mar, Epilepsy G40.909 ; Lumbago M54.5 ; Esophageal reflux K21.9 ; Fibromyalgia M79.7 ; Chronic obstructive pulmonary disease, unspecified COPD type J44.9 ; Vitamin D deficiency E55.9 ; Fluid level behind tympanic membrane of right ear H65.91 ; Irritable bowel syndrome with diarrhea K58.0 ; Hematochezia K92.1 and Generalized anxiety disorder F41.1 [place] [id number] [place] [address] Mar, [facility] [id number] [place] [address] Mar, [facility] [address] [place] [address] Mar, Vitamin D deficiency E55.9 [facility] [address] [address] Feb, [facility] [id number] [place] [address] Feb, [facility] [address] [place] [address] Jan, Fibromyalgia M79.7 [facility] [id number] [place] [address] Jan, [facility] [id number] [place] [address] Jan, [facility] [id number] [place] [address] Jan, Vitamin D deficiency E55.9 [facility] [address] [address] Dec, [facility] [id number] [place] [address] Dec, [facility] [address] [address] Dec, Generalized anxiety disorder F41.1 [place] [address] [address] Dec, Dysuria R30.0 ; Acute bilateral low back pain without sciatica M54.5 and Encounter for immunization Z23 [facility] [id number] [place] [address] Oct, [facility] [address] [address] Oct, Fibromyalgia M79.7 [facility] [id number] [place] [address] Sep, Dysuria R30.0 and Acute bronchitis, unspecified organism J20.9 [facility] [id number] [place] [address] Sep, [facility] [id number] [place] [address] Sep, Rectal prolapse K62.3 [facility] [id number] [place] [address] Sep, Chronic obstructive pulmonary disease, unspecified COPD type J44.9 [facility] [address] [id number] Aug, [facility] [address] [id number] Aug, [place] [address] [address] Aug, Light headedness R42 ; On antiepileptic therapy Z79.899 ; Vitamin D deficiency E55.9 ; Screening for lipid disorders Z13.220 ; Dysuria R30.0 and Hemorrhoids, unspecified hemorrhoid type K64.9 [place] [id number] [place] [address] Aug, Internal prolapsed hemorrhoids K64.8 [place] [address] [address] July, [place] [address] [address] May, [place] [address] [address] May, Fever and chills R50.9 and Influenza B J10.1 [place] [id number] [place] [address] Apr, [place] [id number] [place] [address] Apr, Fibromyalgia M79.7 and Generalized anxiety disorder F41.1 [place] [id number] [place] [address] Mar, Esophageal reflux K21.9 ; Generalized anxiety disorder F41.1 and Epilepsy G40.909 [place] [address] [address] Mar, Epilepsy G40.909 ; Esophageal reflux K21.9 ; Fibromyalgia M79.7 ; Generalized anxiety disorder F41.1 ; Pain of left foot M79.672 ; Pain in right foot M79.671 ; Ear pain, right H92.01 ; Tinnitus of both ears H93.13 ; Chronic obstructive pulmonary disease, unspecified COPD type J44.9 ; Vitamin D deficiency E55.9 ; Screening for lipid disorders Z13.220 and On antiepileptic therapy Z79.899 [facility] [id number] [place] [address] Feb, [facility] [id number] [place] [address] Feb, [facility] [id number] [place] [address] Feb, Dysuria R30.0 and Plantar fasciitis of right foot M72.2 [facility] [id number] [place] [address] Feb, [facility] [id number] [place] [address] Feb, [facility] [id number] [place] [address] Jan, [facility] [id number] [place] [address] Jan, [facility] [id number] [place] [address] Dec, [facility] [id number] [place] [address] Dec, [facility] [id number] [place] [address] Dec, [facility] [id number] [place] [address] Nov, [facility] [id number] [place] [address] Sep, [facility] [id number] [place] [address] Aug, Shortness of breath R06.02 and Acute suppurative otitis media of right ear without spontaneous rupture of tympanic membrane, recurrence not specified H66.001 [place] [id number] [place] [address] 14 Aug, 2015 Internal prolapsed hemorrhoids K64.8 [place] [id number] [place] [address] 06 Jun, 2015 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 [place] [address] [address] May, Fibromyalgia M79.7 ; Interstitial cystitis N30.10 ; Intractable migraine without aura and without status migrainosus G43.019 ; Low vitamin D level E55.9 and Ringing in right ear H93.11 [place] [id number] [place] [address] May, [place] [address] [address] May, Low vitamin D level E55.9 [place] [id number] [place] [address] Apr, [place] [id number] [place] [address] Mar, [place] [id number] [place] [address] Mar, Acute suppurative otitis media of right ear without spontaneous rupture of tympanic membrane, recurrence not specified H66.001 ; Encounter for immunization Z23 ; Asthma with acute exacerbation, unspecified asthma severity J45.901 ; Memory problem R41.3 ; Acute pain of right knee M25.561 ; Chronic fatigue R53.82 and Excessive urinary volume R35.8 [place] [id number] [place] [address] Feb, [place] [address] [address] Feb, [place] [address] [address] Jan, [facility] [id number] [place] [address] Nov, Esophageal reflux 530.81 ; Anxiety 300.00 and Tingling in extremities 782.0 [facility] [id number] [place] [address] Oct, [facility] [id number] [place] [address] Oct, [facility] [id number] [place] [address] Oct, [facility] [id number] [place] [address] Oct, [facility] [id number] [place] [address] Oct, [facility] [id number] [place] [address] Sep, Other chronic allergic conjunctivitis 372.14 ; Irritable bowel syndrome 564.1 ; 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 ; Fibromyalgia 729.1 ; Extremity pain 729.5 and Neck pain 723.1 [facility] [address] [address] Sep, [facility] [id number] [place] [address] Aug, [facility] [address] [place] [address] Aug, [facility] [id number] [place] [address] July, Vomiting 787.03 [facility] [address] [id number] July, Dental examination V72.2 [facility] [id number] [place] [address] 14 Jun, 2014 [facility] [place] [facility] [address] [id number] [place] [address] 13 Jun, 2014 [facility] [place] [facility] [address] [id number] [place] [address] 27 May, 2014 [facility] [place] [facility] [address] [id number] [place] [address] 27 May, 2014 [facility] [place] [facility] [address] [id number] [place] [address] 16 May, 2014 [facility] [place] [facility] [address] [id number] [place] [address] 16 May, 2014 [facility] [place] [facility] [address] [id number] [place] [address] 05 May, 2014 [facility] [place] [facility] [address] [id number] [place] [address] 05 May, 2014 [facility] [place] [facility] [address] [id number] [place] [address] May, [facility] [place] [facility] [address] [id number] [place] [address] May, [facility] [place] [facility] [address] [facility] [id number] [place] [address] May, [facility] [place] [facility] [address] [id number] [place] [address] Apr, 2014 [facility] [place] [facility] [address] [id number] [place] [address] Apr, [facility] [place] [facility] [address] [id number] [place] [address] Apr, [facility] [place] [facility] [address] [facility] [id number] [place] [address] Apr, [facility] [place] [facility] [address] [id number] [place] [address] Apr, [facility] [place] [facility] [address] [id number] [place] [address] Apr, [facility] [place] [facility] [address] [id number] [place] [address] Mar, [facility] [place] [facility] [address] [id number] [place] [address] Mar, [facility] [place] [facility] [address] [id number] [place] [address] Mar, [facility] [place] [facility] [address] [id number] [place] [address] Mar, [facility] [place] [facility] [address] [id number] [place] [address] Mar, [facility] [place] [facility] [address] [id number] [place] [address] Mar, [facility] [place] [facility] [address] [id number] [place] [address] Mar, [facility] [place] [facility] [address] [id number] [place] [address] Mar, [facility] [place] [facility] [address] [id number] [place] [address] Mar, [facility] [place] [facility] [address] [id number] [address] Mar, [facility] [place] [facility] [address] [id number] [address] Mar, [facility] [place] [facility] [address] [id number] [place] [address] Mar, [facility] [place] [facility] [address] [id number] [place] [address] Mar, [facility] [place] [facility] [address] [id number] [place] [address] Mar, [facility] [place] [facility] [address] [id number] [place] [address] 15 Mar, 2014 [facility] [place] [facility] [address] [id number] [place] [address] 15 Mar, 2014 [facility] [place] [facility] [address] [id number] [place] [address] 15 Mar, 2014 [facility] [place] [facility] [address] [id number] [place] [address] 09 Mar, 2014 [facility] [place] [facility] [address] [id number] [place] [address] 09 Mar, 2014 [facility] [place] [facility] [address] [id number] [place] [address] 18 Feb, 2014 [facility] [place] [facility] [address] [id number] [place] [address] 18 Feb, 2014 [facility] [place] [facility] [address] [id number] [place] [address] Feb, [facility] [place] [facility] [address] [id number] [place] [address] 11 Feb, 2014 [facility] [place] [facility] [address] [id number] [place] [address] 20 Jan, 2014 [facility] [place] [facility] [address] [id number] [place] [address] 20 Jan, 2014 [facility] [place] [facility] [address] [id number] [place] [address] 14 Jan, 2014 [facility] [place] [facility] [address] [id number] [place] [address] 14 Jan, 2014 [facility] [place] [facility] [address] [id number] [place] [address] 14 Jan, 2014 [facility] [place] [facility] [address] [id number] [place] [address] 14 Jan, 2014 [facility] [place] [facility] [address] [id number] [place] [address] 07 Jan, 2014 [facility] [place] [facility] [address] [id number] [place] [address] Jan, 2013 [facility] [place] [facility] [address] [id number] [place] [address] Dec, [facility] [place] [facility] [address] [id number] [place] [address] Dec, [facility] [place] [facility] [address] [id number] [place] [address] Dec, [facility] [place] [facility] [address] [id number] [place] [address] 17 Dec, 2013 [facility] [place] [facility] [address] [id number] [place] [address] 22 Nov, 2013 [facility] [place] [facility] [address] [id number] [place] [address] 22 Sep, 2013 [facility] [place] [facility] [address] [id number] [place] [address] 08 Sep, 2013 [facility] [place] [facility] [address] [id number] [place] [address] 08 Sep, 2013 [facility] [place] [facility] [address] [id number] [place] [address] 05 Sep, 2013 [facility] [place] [facility] [address] [id number] [place] [address] 05 Sep, 2013 [facility] [place] [facility] [address] [id number] [place] [address] 04 Sep, 2013 [facility] [place] [facility] [address] [id number] [place] [address] 04 Sep, 2013 [facility] [place] [facility] [address] [id number] [place] [address] 03 Sep, 2013 [facility] [place] [facility] [address] [id number] [place] [address] 03 Sep, 2013 [facility] [place] [facility] [address] [id number] [place] [address] Oct, [facility] [place] [facility] [address] [id number] [place] [address] Oct, [facility] [place] [facility] [address] [id number] [place] [address] Sep, [facility] [place] [facility] [address] [id number] [place] [address] Sep, [facility] [place] [facility] [address] [id number] [place] [address] Sep, [facility] [place] [facility] [address] [id number] [place] [address] Sep, [facility] [place] [facility] [address] [id number] [place] [address] Sep, [facility] [place] [facility] [address] [id number] [place] [address] Sep, [facility] [place] [facility] [address] [id number] [place] [address] Aug, [facility] [place] [facility] [address] [id number] [place] [address] Aug, [facility] [place] [facility] [address] [id number] [place] [address] Aug, [facility] [place] [facility] [address] [id number] [place] [address] Aug, [facility] [place] [facility] [address] [id number] [place] [address] Aug, [facility] [place] [facility] [address] [id number] [place] [address] Aug, [facility] [place] [facility] [address] [id number] [place] [address] July, [facility] [place] [facility] [address] [id number] [place] [address] July, [facility] [place] [facility] [address] [id number] [place] [address] July, [facility] [address] [id number] [place] [address] July, [facility] [place] [facility] [address] [id number] [place] [address] July, [facility] [address] [id number] [place] [address] July, [facility] [place] [facility] [address] [id number] [place] [address] Jun, [facility] [place] [facility] [address] [id number] [place] [address] Jun, [facility] [place] [facility] [address] [id number] [place] [address] Jun, [facility] [place] [facility] [address] [id number] [place] [address] Jun, [facility] [address] [id number] [place] [address] May, [facility] [place] [facility] [address] [id number] [place] [address] May, [facility] [address] [id number] [place] [address] Apr, [facility] [place] [facility] [address] [id number] [place] [address] Apr, [facility] [place] [facility] [address] [id number] [place] [address] Apr, [facility] [place] [facility] [address] [id number] [place] [address] Apr, [facility] [place] [facility] [address] [id number] [place] [address] Mar, [facility] [place] [facility] [address] [id number] [place] [address] Mar, [facility] [address] [id number] [place] [address] Mar, [facility] [place] [facility] [address] [id number] [place] [address] Mar, [facility] [place] [facility] [address] [id number] [place] [address] Mar, [facility] [place] [facility] [address] [id number] [place] [address] Mar, [facility] [place] [facility] [address] [id number] [place] [address] Feb, [facility] [place] [facility] [address] [id number] [place] [address] Feb, [facility] [place] [facility] [address] [id number] [place] [address] Jan, [facility] [place] [facility] [address] [id number] [address] Jan, [facility] [place] [facility] [address] [id number] [place] [address] Jan, [facility] [place] [facility] [address] [id number] [place] [address] Jan, [facility] [place] [facility] [address] [id number] [address] Nov, [facility] [place] [facility] [address] [id number] [address] Nov, [facility] [place] [facility] [address] [id number] [place] [address] Oct, [facility] [place] [facility] [address] [id number] [address] Oct, [facility] [place] [facility] [address] [id number] [place] [address] Sep, [facility] [place] [facility] [address] [id number] [place] [address] Sep, [facility] [address] [id number] [place] [address] Sep, [facility] [address] [id number] [place] [address] Aug, [facility] [address] [id number] [place] [address] Aug, [facility] [address] [id number] [place] [address] Aug, [facility] [address] [id number] [place] [address] Aug, [facility] [address] [id number] [place] [address] July, [facility] [address] [id number] [place] [address] July, [facility] [address] [id number] [place] [address] July, [facility] [address] [id number] [place] [address] July, [facility] [address] [id number] [place] [address] Jun, [facility] [address] [id number] [place] [address] Jun, [facility] [address] [id number] [place] [address] Jun, [facility] [place] [facility] [address] [id number] [place] [address] May, [facility] [place] [facility] [address] [id number] [place] [address] May, [facility] [address] [id number] [place] [address] Apr, [facility] [facility] [address] [id number] [place] [address] Apr, [facility] [place] [facility] [address] [id number] [place] [address] Apr, [facility] [place] [facility] [address] [id number] [place] [address] Apr, [facility] [place] [facility] [address] [id number] [place] [address] Mar, [facility] [address] [id number] [place] [address] Mar, [facility] [place] [facility] [address] [id number] [place] [address] Mar, [facility] [place] [facility] [address] [id number] [place] [address] Mar, [facility] [place] [facility] [address] [id number] [place] [address] Feb, [facility] [facility] [address] [id number] [place] [address] Feb, [facility] [place] [facility] [address] [id number] [place] [address] Feb, [facility] [address] [id number] [place] [address] Feb, [facility] [place] [facility] [address] [id number] [place] [address] Feb, [facility] [place] [facility] [address] [id number] [place] [address] Feb, [facility] [place] [facility] [address] [id number] [place] [address] Feb, [facility] [place] [facility] [address] [id number] [place] [address] Feb, [facility] [place] [facility] [address] [id number] [place] [address] 28 Jan, 2012 [facility] [place] [facility] [address] [id number] [place] [address] 28 Jan, 2012 [facility] [place] [facility] [address] [id number] [place] [address] 15 Jan, 2012 [facility] [place] [facility] [address] [id number] [place] [address] 15 Jan, 2012 [facility] [address] [id number] [place] [address] 14 Jan, 2012 [facility] [address] [id number] [place] [address], [place] [address] 13 Jan, 2012 [facility] [address] [id number] [place] [address] Jan, [facility] [address] [id number] [address] Jan, [facility] [facility] [address] [id number] [address] Jan, [facility] [place] [facility] [address] [id number] [place] [address] Jan, [facility] [place] [facility] [address] [facility] [id number] [place] [address] Jan, [facility] [address] [id number] [place] [address] Dec, [facility] [address] [id number] [address] Dec, [facility] [address] [id number] [place] [address] Dec, [facility] [address] [id number] [place] [address] Dec, [facility] [address] [id number] [place] [address] Dec, [facility] [address] [id number] [place] [address] Dec, [facility] [address] [id number] [place] [address] Dec, [facility] [address] [id number] [place] [address] Dec, [facility] [facility] [address] [id number] [place] [address] Dec, [facility] [facility] [address] [id number] [place] [address] Dec, [facility] [place] [facility] [address] [id number] [place] [address] Dec, [facility] [place] [facility] [address] [id number] [place] [address] Dec, [facility] [address] [id number] [place] [address] Nov, [facility] [facility] [address] [id number] [place] [address] Oct, [facility] [facility] [address] [id number] [place] [address] Oct, [facility] [address] [id number] [place] [address] Oct, [facility] [address] [id number] [place] [address] Oct, [facility] [address] [id number] [place] [address] Sep, [facility] [address] [id number] [place] [address] Sep, [facility] [address] [id number] [place] [address] Sep, [facility] [address] [id number] [place] [address] Sep, [facility] [address] [id number] [address] Aug, [facility] [id number] [address] Aug, [facility] [id number] [address] Aug, [facility] [address] [id number] [address] Aug, [facility] [id number] [address] Aug, [facility] [id number] [address] July, [facility] [id number] [address] July, [facility] [address] [address] July, [facility] [address] [id number] [address] Dec, IMMUNIZATIONS No Known Immunizations SOCIAL HISTORY Never Assessed REASON FOR VISIT UTI symptoms, frequency/urgency, denies burning, c/o headache and congestion, " head swimming"---DBennettRN PLAN OF CARE Activity Details Follow Up prn Reason: VITAL SIGNS Height 58 in 2016-10-09 Weight 164 lbs 2016-10-09 Temperature 98.6 degrees Fahrenheit 2016-10-09 Heart Rate 70 bpm 2016-10-09 Respiratory Rate 20 2016-10-09 BMI 34.27 kg/m2 2016-10-09 Blood pressure systolic 112 mmHg 2016-10-09 Blood pressure diastolic 70 mmHg 2016-10-09 MEDICATIONS Medication Instructions Dosage Frequency Start Date End Date Duration Status Protonix 40 MG Orally Once a day 1 tablet 24h Feb, 90 days Active Albuterol Sulfate 90 mcg/actuation 2 puffs by Inhalation route every 4-6 hours as needed PRN cough or wheezing Jun, Active Estradiol 1 MG 1 tablet by Oral route 1 time per day Mar, Active BusPIRone HCl 10 MG Orally 4 times a day 1 tablet 6h 90 Active PredniSONE 20 mg Orally Once a day 1 tablet 24h 28 Sep, 2016 Oct, 07 days Active Lyrica 150 MG Orally Twice a day 1 capsule 12h 30 Sep, 2014 90 days Active Pristiq 50 MG Orally Once a day 1 tablet 24h 90 days Active Sucralfate 1 GM Orally 2 times a day 1 tablet on an empty stomach 12h 90 Active Tegretol 200 MG Orally Twice a day 1 tablet 12h 90 Active RESULTS Name Result Date Reference Range UA LONG DIP (IN HOUSE) 2016-10-09 Lot # [id number] Exp date 08/12/17 Clarity clear Color yellow Odor none GLU negative NELLIE negative KET negative SG 1.015 BLO trace-intact pH 8.5 Protein negative URO 0.2 NIT negative FARIBA negative Lot # Exp date PROCEDURES Procedure Date Ordered Result Body Site URINALYSIS, AUTO, W/O SCOPE October 09, 2016 INSTRUCTIONS MEDICATIONS ADMINISTERED No Known Medications MEDICAL (GENERAL) HISTORY Type Description Date Medical History epilepsy Medical History interstitial cystitis Surgical History hysterectomy Surgical History breast biopsy w/ Dr. Hickey 2009 Surgical History cholecystectomy 2012 Surgical History tonsillectomy Surgical History tubal ligation Surgical History urethral stretching 2008 Surgical History section
--- OUTSIDE RECORDS SUMMARY | 2018-10-24 12:43 | XMS REPORT ---
Author Author DIANN DAMON [facility] eClinicalWorks Address Unknown Phone Unavailable Care Team Providers Care It Compliance Manager Name Role Phone DIANN DAMON Unavailable [...] Instructions Start Date End Date Status Dosage Pristiq [facility] [address]-81 50 mg Orally Once a day Dec 26, 2015 1 tablet BusPIRone HCl [facility] [address]-19 10 mg Orally 4 times a day Dec 26, 2015 1 tablet Results No Known Results Summary Purpose eClinicalWorks Submission
--- OUTSIDE RECORDS SUMMARY | 2018-10-24 12:44 | XMS REPORT ---
Author Author DIANN DAMON Organization [facility] Address [address] [place] [address] Care Team Providers Care Management Analyst Name Role Phone DIANN DAMON Unavailable PROBLEMS Type Condition ICD9-CM Code URB35-HJ Code Onset Dates Condition Status SNOMED Code Problem Epilepsy G40.909 Active 21425498 Problem Lumbago M54.5 Active 010111281 Problem Esophageal reflux K21.9 Active 379038371 Problem Generalized anxiety disorder F41.1 Active 772559751 Problem Interstitial cystitis N30.10 Active 672827293 Problem Major depressive disorder F32.9 Active 455012855 Problem Vitamin D deficiency E55.9 Active 93875834 Problem Chronic obstructive pulmonary disease, unspecified COPD type J44.9 Active 02085337 Problem Irritable bowel syndrome without diarrhea K58.9 Active 92318987 Problem Fibromyalgia M79.7 Active 19778685 Problem Tinnitus of both ears H93.13 Active 1904613129897 Problem On antiepileptic therapy Z79.899 Active 208334858 ALLERGIES Unknown Allergies SOCIAL HISTORY No smoking Hx information available PLAN OF CARE VITAL SIGNS MEDICATIONS Medication Instructions Dosage Frequency Start Date End Date Duration Status Pristiq 50 MG Orally Once a day 1 tablet 24h 90 days Active Tegretol 200 MG Orally Twice a day 1 tablet 12h 90 days Active Sucralfate 1 GM Orally 2 times a day 1 tablet on an empty stomach 12h 90 days Active RESULTS No Results PROCEDURES No Known procedures IMMUNIZATIONS No Known Immunizations
--- OUTSIDE RECORDS SUMMARY | 2018-10-24 12:44 | XMS REPORT ---
Author Author NELSON DIANN [facility] Address [address] [place] [address] Care Team Providers Care Environmental Field Team Member Name Role Phone NELSONPRADEEPDIANN Unavailable PROBLEMS Type Condition ICD9-CM Code ZLT11-TN Code Onset Dates Condition Status SNOMED Code Problem Major depressive disorder F32.9 Active 941595731 Problem Fibromyalgia M79.7 Active 88273878 Problem Lumbago M54.5 Active 121490722 Problem Epilepsy G40.909 Active 29761710 Problem Esophageal reflux K21.9 Active 589251714 Problem Generalized anxiety disorder F41.1 Active 178407834 Problem Interstitial cystitis N30.10 Active 186062393 Problem Irritable bowel syndrome with diarrhea K58.0 Active 510038330 Problem Chronic obstructive pulmonary disease, unspecified COPD type J44.9 Active 58116190 Problem On antiepileptic therapy Z79.899 Active 037691352 Problem Irritable bowel syndrome without diarrhea K58.9 Active 76956494 Problem Tinnitus of both ears H93.13 Active 7115613762099 Problem Vitamin D deficiency E55.9 Active 28157017 ALLERGIES No Information ENCOUNTERS Encounter Location Date Diagnosis [facility] [address] [address] July, [facility] [id number] [place] [address] Jun, Fibromyalgia M79.7 [facility] [address] [address] Jun, Fibromyalgia M79.7 [facility] [id number] [place] [address] May, [facility] [id number] [place] [address] May, [facility] [id number] [place] [address] May, Fibromyalgia M79.7 [facility] [id number] [place] [address] Mar, [facility] [id number] [place] [address] Mar, Epilepsy G40.909 ; Lumbago M54.5 ; Esophageal reflux K21.9 ; Fibromyalgia M79.7 ; Chronic obstructive pulmonary disease, unspecified COPD type J44.9 ; Vitamin D deficiency E55.9 ; Fluid level behind tympanic membrane of right ear H65.91 ; Irritable bowel syndrome with diarrhea K58.0 ; Hematochezia K92.1 and Generalized anxiety disorder F41.1 [facility] [id number] [place] [address] Mar, [facility] [id number] [place] [address] Mar, [facility] [id number] [place] [address] Mar, Vitamin D deficiency E55.9 [facility] [id number] [place] [address] Feb, [facility] [id number] [place] [address] Feb, [facility] [id number] [place] [address] Jan, Fibromyalgia M79.7 [facility] [id number] [address] Jan, [facility] [id number] [place] [address] Jan, [facility] [address] [address] Jan, Vitamin D deficiency E55.9 [facility] [id number] [place] [address] Dec, [facility] [id number] [place] [address] Dec, [facility] [id number] [place] [address] Dec, Generalized anxiety disorder F41.1 [facility] [address] [address] Dec, Dysuria R30.0 ; Acute bilateral low back pain without sciatica M54.5 and Encounter for immunization Z23 [facility] [address] [address] Oct, [facility] [id number] [place] [address] Oct, Fibromyalgia M79.7 [facility] [id number] [place] [address] Sep, Dysuria R30.0 and Acute bronchitis, unspecified organism J20.9 [facility] [id number] [place] [address] Sep, [facility] [id number] [place] [address] Sep, Rectal prolapse K62.3 [facility] [id number] [place] [address] Sep, Chronic obstructive pulmonary disease, unspecified COPD type J44.9 [facility] [id number] [place] [id number] Aug, [facility] [address] [id number] Aug, [facility] [id number] [place] [address] Aug, Light headedness R42 ; On antiepileptic therapy Z79.899 ; Vitamin D deficiency E55.9 ; Screening for lipid disorders Z13.220 ; Dysuria R30.0 and Hemorrhoids, unspecified hemorrhoid type K64.9 [place] [address] [address] Aug, Internal prolapsed hemorrhoids K64.8 [place] [address] [address] July, [address] [address] May, [address] [address] May, Fever and chills R50.9 and Influenza B J10.[address] [address] Apr, [address] [address] Apr, Fibromyalgia M79.7 and Generalized anxiety disorder F41.[address] [address] Mar, Esophageal reflux K21.9 ; Generalized anxiety disorder F41.1 and Epilepsy G40.909 [id number] [place] [address] Mar, Epilepsy G40.909 ; Esophageal reflux K21.9 ; Fibromyalgia M79.7 ; Generalized anxiety disorder F41.1 ; Pain of left foot M79.672 ; Pain in right foot M79.671 ; Ear pain, right H92.01 ; Tinnitus of both ears H93.13 ; Chronic obstructive pulmonary disease, unspecified COPD type J44.9 ; Vitamin D deficiency E55.9 ; Screening for lipid disorders Z13.220 and On antiepileptic therapy Z79.899 [id number] [place] [address] Feb, [address] [address] Feb, [facility] [id number] [place] [address] Feb, Dysuria R30.0 and Plantar fasciitis of right foot M72.2 [facility] [id number] [place] [address] Feb, [facility] [id number] [place] [phone] Feb, [facility] [id number] [place] [address] Jan, [facility] [id number] [place] [address] Jan, [facility] [id number] [place] [address] Dec, [facility] [id number] [place] [address] Dec, [facility] [id number] [place] [address] Dec, [facility] [id number] [place] [address] Nov, [facility] [id number] [place] [address] Sep, [facility] [id number] [place] [address] Aug, Shortness of breath R06.02 and Acute suppurative otitis media of right ear without spontaneous rupture of tympanic membrane, recurrence not specified H66.001 [facility] [id number] [place] [address] 14 Aug, 2015 Internal prolapsed hemorrhoids K64.8 [facility] [id number] [place] [address] 06 Jun, 2016 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 [facility] [id number] [place] [address] May, Fibromyalgia M79.7 ; Interstitial cystitis N30.10 ; Intractable migraine without aura and without status migrainosus G43.019 ; Low vitamin D level E55.9 and Ringing in right ear H93.11 [place] [facility] [id number] [place] [address] May, [place] [address] [address] May, Low vitamin D level E55.9 [place] [address] [address] Apr, [place] [address] [address] Mar, [place] [address] [address] Mar, Acute suppurative otitis media of right ear without spontaneous rupture of tympanic membrane, recurrence not specified H66.001 ; Encounter for immunization Z23 ; Asthma with acute exacerbation, unspecified asthma severity J45.901 ; Memory problem R41.3 ; Acute pain of right knee M25.561 ; Chronic fatigue R53.82 and Excessive urinary volume R35.8 [place] [id number] [place] [address] Feb, [place] [address] [address] Feb, [place] [id number] [place] [address] Jan, [place] [address] [address] Nov, Esophageal reflux 530.81 ; Anxiety 300.00 and Tingling in extremities 782.0 [place] [address] [address] Oct, [facility] [address] [address] Oct, [facility] [id number] [place] [address] Oct, [facility] [id number] [place] [address] Oct, [facility] [id number] [place] [address] Oct, [facility] [id number] [place] [address] Sep, Other chronic allergic conjunctivitis 372.14 ; Irritable bowel syndrome 564.1 ; 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 ; Fibromyalgia 729.1 ; Extremity pain 729.5 and Neck pain 723.1 [facility] [id number] [place] [address] Sep, [facility] [id number] [place] [address] Aug, [facility] [id number] [place] [address] Aug, [facility] [id number] [place] [address] July, Vomiting 787.03 [facility] [id number] [place] [id number] July, Dental examination V72.2 [facility] [id number] [place] [address] Jun, [facility] [id number] [place] [address] Jun, [facility] [id number] [place] [address] May, [facility] [id number] [place] [address] [place] [address] May, [facility] [place] [facility] [address] [id number] [place] [address] May, [facility] [place] [facility] [address] [id number] [place] [address] May, [facility] [place] [facility] [address] [id number] [place] [address] May, [facility] [place] [facility] [address] [id number] [place] [address] May, [facility] [place] [facility] [address] [id number] [place] [address] May, [facility] [place] [facility] [address] [id number] [place] [address] May, [facility] [place] [facility] [address] [facility] [id number] [place] [address] May, [facility] [place] [facility] [address] [facility] [id number] [place] [address] Apr, [facility] [place] [facility] [address] [facility] [id number] [place] [address] Apr, 2014 [facility] [place] [facility] [address] [facility] [id number] [place] [address] Apr, [facility] [place] [facility] [id number] [address] Apr, [facility] [place] [facility] [address] [facility] [id number] [place] [address] Apr, [facility] [place] [facility] [address] [id number] [place] [address] Apr, [facility] [place] [facility] [address] [facility] [id number] [place] [address] Mar, [facility] [place] [facility] [address] [facility] [id number] [place] [address] Mar, [facility] [place] [facility] [address] [id number] [place] [address] Mar, [facility] [place] [facility] [address] [id number] [place] [address] Mar, [facility] [place] [facility] [address] [id number] [place] [address] Mar, [facility] [place] [facility] [address] [id number] [place] [address] Mar, [facility] [place] [facility] [address] [id number] [place] [address] Mar, [facility] [place] [facility] [address] [id number] [place] [address] Mar, [facility] [place] [facility] [address] [id number] [place] [address] Mar, [facility] [place] [facility] [address] [id number] [place] [address] Mar, [facility] [place] [facility] [address] [id number] [place] [address] Mar, [facility] [place] [facility] [address] [id number] [place] [address] Mar, [facility] [place] [facility] [address] [id number] [place] [address] Mar, [facility] [place] [facility] [address] [id number] [place] [address] Mar, [facility] [place] [facility] [address] [id number] [place] [address] Mar, [facility] [place] [facility] [address] [id number] [place] [address] Mar, [facility] [place] [facility] [address] [id number] [place] [address] Mar, [facility] [place] [facility] [address] [id number] [place] [address] Mar, [facility] [place] [facility] [address] [id number] [place] [address] Mar, [facility] [place] [facility] [address] [id number] [place] [address] Feb, [facility] [place] [facility] [address] [id number] [place] [address] Feb, [facility] [place] [facility] [address] [id number] [place] [address] Feb, [facility] [place] [facility] [address] [id number] [place] [address] Feb, [facility] [place] [facility] [address] [id number] [place] [address] Jan, [facility] [place] [facility] [address] [id number] [place] [address] Jan, [facility] [place] [facility] [address] [id number] [place] [address] Jan, [facility] [place] [facility] [address] [id number] [place] [address] Jan, [facility] [place] [facility] [address] [facility] [id number] [place] [address] Jan, [facility] [place] [facility] [address] [id number] [place] [address] Jan, [facility] [place] [facility] [address] [id number] [place] [address] Jan, [facility] [place] [facility] [address] [id number] [place] [address] Jan, [facility] [place] [facility] [address] [id number] [place] [address] Dec, [facility] [place] [facility] [address] [id number] [place] [address] Dec, [facility] [place] [facility] [address] [id number] [place] [address] 17 Dec, 2013 [facility] [place] [facility] [address] [id number] [place] [address] 17 Dec, 2013 [facility] [place] [facility] [address] [id number] [place] [address] 22 Nov, 2013 [facility] [place] [facility] [address] [id number] [place] [address] 22 Nov, 2013 [facility] [place] [facility] [address] [id number] [place] [address] 08 Nov, 2013 [facility] [place] [facility] [address] [id number] [place] [address] 08 Nov, 2013 [facility] [place] [facility] [address] [id number] [place] [address] 05 Nov, 2013 [facility] [place] [facility] [address] [id number] [place] [address] 05 Nov, 2013 [facility] [place] [facility] [address] [id number] [place] [address] 04 Nov, 2013 [facility] [place] [facility] [address] [id number] [place] [address] 04 Nov, 2013 [facility] [place] [facility] [address] [id number] [place] [address] 03 Nov, 2013 [facility] [place] [facility] [address] [id number] [place] [address] 03 Nov, 2013 [facility] [place] [facility] [address] [id number] [place] [address] 15 Oct, 2013 [facility] [place] [facility] [address] [id number] [place] [address] 15 Oct, 2013 [facility] [place] [facility] [address] [id number] [place] [address] 14 Sep, 2013 [facility] [place] [facility] [address] [id number] [place] [address] Sep, [facility] [place] [facility] [address] [id number] [place] [address] Sep, [facility] [place] [facility] [address] [id number] [place] [address] Sep, [facility] [place] [facility] [address] [id number] [place] [address] Sep, [facility] [place] [facility] [address] [id number] [place] [address] Sep, [facility] [place] [facility] [address] [id number] [place] [address] Aug, [facility] [place] [facility] [address] [id number] [place] [address] Aug, [facility] [place] [facility] [address] [id number] [place] [address] Aug, [facility] [place] [facility] [address] [id number] [place] [address] Aug, [facility] [place] [facility] [address] [id number] [place] [address] Aug, [facility] [place] [facility] [address] [id number] [place] [address] Aug, [facility] [place] [facility] [address] [id number] [place] [address] July, [facility] [place] [facility] [address] [id number] [place] [address] July, [facility] [place] [facility] [address] [id number] [place] [address] July, [facility] [place] [facility] [address] [id number] [place] [address] July, [facility] [place] [facility] [address] [id number] [place] [address] July, [facility] [place] [facility] [address] [id number] [place] [address] July, [facility] [place] [facility] [address] [id number] [place] [address] Jun, [facility] [place] [facility] [address] [id number] [place] [address] Jun, [facility] [place] [facility] [address] [id number] [place] [address] Jun, [facility] [place] [facility] [address] [id number] [place] [address] Jun, [facility] [place] [facility] [address] [id number] [place] [address] May, [facility] [place] [facility] [address] [id number] [place] [address] May, [facility] [place] [facility] [address] [id number] [place] [address] Apr, [facility] [place] [facility] [address] [id number] [place] [address] Apr, [facility] [place] [facility] [address] [id number] [place] [address] Apr, [facility] [place] [facility] [address] [facility] [id number] [place] [address] Apr, [facility] [place] [facility] [address] [id number] [place] [address] Mar, [facility] [place] [facility] [address] [id number] [place] [address] Mar, [facility] [place] [facility] [address] [id number] [place] [address] Mar, [facility] [place] [facility] [address] [id number] [place] [address] Mar, [facility] [place] [facility] [address] [facility] [id number] [place] [address] Mar, [facility] [address] [id number] [place] [address] Mar, [facility] [place] [facility] [address] [id number] [place] [address] Feb, [facility] [place] [facility] [address] [id number] [place] [address] Feb, [facility] [place] [facility] [address] [id number] [place] [address] Jan, [facility] [place] [facility] [address] [id number] [place] [address] Jan, [facility] [place] [facility] [address] [id number] [place] [address] Jan, [facility] [place] [facility] [address] [id number] [place] [address] Jan, [facility] [place] [facility] [address] [id number] [place] [address] Nov, [facility] [place] [facility] [address] [id number] [place] [address] Nov, [facility] [place] [facility] [address] [id number] [place] [address] Oct, [facility] [place] [facility] [address] [id number] [place] [address] Oct, [facility] [place] [facility] [address] [id number] [place] [address] Sep, [facility] [place] [facility] [address] [id number] [place] [address] Sep, [facility] [place] [facility] [address] [id number] [place] [address] Sep, [facility] [place] [facility] [address] [id number] [place] [address] Aug, [facility] [place] [facility] [address] [id number] [place] [address] Aug, [facility] [address] [id number] [place] [address] Aug, [facility] [address] [id number] [place] [address] Aug, [facility] [address] [id number] [place] [address] July, [facility] [address] [id number] [place] [address] July, [facility] [address] [id number] [place] [address] July, [facility] [address] [id number] [place] [address] July, [facility] [address] [facility] [id number] [place] [address] Jun, [facility] [address] [id number] [place] [address] Jun, [facility] [address] [id number] [place] [address] Jun, [facility] [address] [facility] [id number] [place] [address] May, [facility] [address] [id number] [place] [address] May, [facility] [address] [id number] [place] [address] Apr, [facility] [place] [facility] [address] [id number] [place] [address] Apr, [facility] [place] [facility] [address] [id number] [place] [address] Apr, [facility] [address] [facility] [id number] [place] [address] Apr, [facility] [address] [id number] [place] [address] Mar, [facility] [place] [facility] [address] [id number] [place] [address] Mar, [facility] [place] [facility] [address] [id number] [place] [address] Mar, [facility] [place] [facility] [address] [id number] [place] [address] Mar, [facility] [place] [facility] [address] [id number] [place] [address] Feb, [facility] [place] [facility] [address] [id number] [place] [address] Feb, [facility] [address] [id number] [place] [address] Feb, [facility] [place] [facility] [address] [id number] [place] [address] Feb, [facility] [place] [facility] [address] [id number] [place] [address] Feb, [facility] [place] [facility] [address] [id number] [place] [address] Feb, [facility] [place] [facility] [address] [id number] [place] [address] Feb, [facility] [place] [facility] [address] [id number] [place] [address] Feb, [facility] [place] [facility] [address] [id number] [place] [address] Jan, [facility] [place] [facility] [address] [id number] [place] [address] Jan, [facility] [place] [facility] [address] [id number] [place] [address] 15 Jan, 2012 [facility] [place] [facility] [address] [id number] [place] [address] 15 Jan, 2012 [facility] [place] [facility] [address] [id number] [place] [address] 14 Jan, 2012 [facility] [place] [facility] [address] [id number] [place] [address] Jan, [facility] [place] [facility] [address] [facility] [id number] [place] [address] Jan, [facility] [place] [facility] [address] [id number] [place] [address] Jan, [facility] [place] [facility] [address] [id number] [place] [address] Jan, [facility] [place] [facility] [address] [facility] [id number] [place] [address] Jan, [facility] [place] [facility] [address] [facility] [id number] [place] [address] Jan, [facility] [place] [facility] [address] [id number] [place] [address] Dec, [facility] [place] [facility] [address] [id number] [place] [address] Dec, [facility] [place] [facility] [address] [id number] [place] [address] Dec, [facility] [place] [facility] [address] [id number] [place] [address] 29 Dec, 2011 [facility] [place] [facility] [address] [id number] [place] [address] 29 Dec, 2011 [facility] [place] [facility] [address] [id number] [place] [address] 29 Dec, 2011 [facility] [place] [facility] [address] [facility] [id number] [place] [address] Dec, [facility] [place] [facility] [address] [facility] [id number] [place] [address] Dec, [facility] [place] [facility] [address] [id number] [place] [address] 15 Dec, 2011 [facility] [address] [id number] [place] [address] Dec, [facility] [place] [facility] [address] [id number] [place] [address] Dec, [facility] [place] [facility] [address] [id number] [place] [address] Dec, [facility] [place] [facility] [address] [id number] [place] [address] Nov, [facility] [place] [facility] [address] [id number] [place] [address] Oct, [facility] [place] [facility] [address] [id number] [place] [address] Oct, [facility] [place] [facility] [address] [id number] [place] [address] Oct, [facility] [place] [facility] [address] [id number] [place] [address] Oct, [facility] [place] [facility] [address] [id number] [place] [address] Sep, [facility] [place] [facility] [address] [id number] [place] [address] Sep, [facility] [place] [facility] [address] [id number] [place] [address] Sep, [facility] [place] [facility] [address] [id number] [place] [address] Sep, [facility] [place] [facility] [address] [id number] [place] [address] Aug, [facility] [place] [facility] [address] [id number] [place] [address] Aug, [facility] [place] [facility] [address] [id number] [place] [address] Aug, [facility] [address] [facility] [id number] [place] [address] Aug, [facility] [address] [id number] [place] [address] Aug, [facility] [address] [id number] [place] [address] July, [facility] [id number] [address] July, [facility] [address] [id number] [place] [address] July, [facility] [address] [id number] [place] [address] Dec, IMMUNIZATIONS No Known Immunizations SOCIAL HISTORY [...]
--- OUTSIDE RECORDS SUMMARY | 2018-10-24 12:45 | XMS REPORT ---
Author Author DIANN DAMON [facility] eClinicalWorks Address Unknown Phone Unavailable Care Team Providers Care Technology Administrator Name Role Phone DIANN DAMON Unavailable Allergies No Known Allergies Problems Problem Type Condition ICD-9 Code Onset [...] Instructions Start Date End Date Status Dosage Omeprazole [facility] [address]-27 40 MG Orally 2 times a day 2013 take 1 capsule before a meal Results No Known Results Summary Purpose eClinicalWorks Submission
--- OUTSIDE RECORDS SUMMARY | 2018-10-24 12:45 | XMS REPORT ---
Author Author DIANN DAMON [facility] Address [address] [place] [address] Care Team Providers Care Commercial Loan Analyst Name Role Phone DIANN DAMON Unavailable PROBLEMS Type Condition ICD9-CM Code RTC14-LC Code Onset Dates Condition Status SNOMED Code Problem Esophageal reflux K21.9 Active 034615516 Problem Epilepsy G40.909 Active 17499469 Problem Major depressive disorder F32.9 Active 280240214 Problem Fibromyalgia M79.7 Active 38798878 Problem Interstitial cystitis N30.10 Active 272475947 Problem Generalized anxiety disorder F41.1 Active 633185586 Problem Tinnitus of both ears H93.13 Active 7178840912869 Problem Chronic obstructive pulmonary disease, unspecified COPD type J44.9 Active 04612646 Problem Irritable bowel syndrome without diarrhea K58.9 Active 54196496 Problem Lumbago M54.5 Active 394692921 Problem Vitamin D deficiency E55.9 Active 90148079 Problem On antiepileptic therapy Z79.899 Active 932185743 ALLERGIES Unknown Allergies SOCIAL HISTORY No smoking Hx information available PLAN OF CARE VITAL SIGNS MEDICATIONS Unknown Medications RESULTS No Results PROCEDURES No Known procedures IMMUNIZATIONS No Known Immunizations
--- OUTSIDE RECORDS SUMMARY | 2018-10-24 12:45 | XMS REPORT ---
Author Author NELSON DIANN [facility] Address [address] [place] [address] Care Team Providers Care Partner Manager Name Role Phone NELSONRPADEEP BURGOSHANY Unavailable PROBLEMS Type Condition ICD9-CM Code CKY76-UV Code Onset Dates Condition Status SNOMED Code Problem Fibromyalgia M79.7 Active 51506854 Problem Vitamin D deficiency E55.9 Active 66445083 Problem Irritable bowel syndrome without diarrhea K58.9 Active 92120262 Problem COPD exacerbation J44.1 Active 517100534 Problem Menopausal symptoms N95.1 Active 05947028 Problem Tinnitus of both ears H93.13 Active 0105144107616 Problem On antiepileptic therapy Z79.899 Active 621964363 Problem Irritable bowel syndrome with diarrhea K58.0 Active 286106462 Problem Chronic obstructive pulmonary disease, unspecified COPD type J44.9 Active 88968165 Problem Esophageal reflux K21.9 Active 615104399 Problem Interstitial cystitis N30.10 Active 419198494 Problem Generalized anxiety disorder F41.1 Active 024946941 Problem Major depressive disorder F32.9 Active 516958255 Problem Epilepsy G40.909 Active 84552163 Problem Lumbago M54.5 Active [id number] ALLERGIES No Information ENCOUNTERS Encounter Location Date Diagnosis [facility] [id number] [place] [id number] Sep, [facility] [id number] [place] [phone] Sep, [facility] [id number] [place] [id number] Aug, [facility] [id number] [place] [address] Aug, Esophageal reflux K21.9 [facility] [id number] [place] [address] Aug, [facility] [id number] [address] Aug, Esophageal reflux K21.9 ; Fluid level behind tympanic membrane of right ear H65.91 ; Fibromyalgia M79.7 and Lumbago M54.5 [facility] [id number] [place] [address] Aug, Esophageal reflux K21.9 [facility] [id number] [place] [address] July, [facility] [id number] [place] [address] July, [facility] [id number] [place] [address] July, Chronic obstructive pulmonary disease, unspecified COPD type J44.9 [place] [id number] [place] [phone] July, [place] [id number] [place] [address] July, [place] [id number] [place] [address] July, Interstitial cystitis N30.10 ; Fibromyalgia M79.7 [...] Dysuria R30.0 and Generalized anxiety disorder F41.1 [facility] [id number] [place] [address] Jun, [place] [id number] [place] [address] Jun, Chronic obstructive pulmonary disease, unspecified COPD type J44.9 ; COPD exacerbation J44.1 and Sore throat J02.9 [facility] [id number] [place] [address] Jun, Fibromyalgia M79.7 [facility] [id number] [place] [address] Jun, Fibromyalgia M79.7 [facility] [address] [address] May, [facility] [address] [address] May, [facility] [address] [address] May, Fibromyalgia M79.7 [facility] [id number] [place] [address] Mar, [facility] [id number] [place] [address] Mar, Epilepsy G40.909 ; Lumbago M54.5 ; Esophageal reflux K21.9 ; Fibromyalgia M79.7 ; Chronic obstructive pulmonary disease, unspecified COPD type J44.9 ; Vitamin D deficiency E55.9 ; Fluid level behind tympanic membrane of right ear H65.91 ; Irritable bowel syndrome with diarrhea K58.0 ; Hematochezia K92.1 and Generalized anxiety disorder F41.1 [facility] [id number] [place] [address] Mar, [facility] [id number] [place] [address] Mar, [place] [id number] [place] [address] Mar, Vitamin D deficiency E55.9 [facility] [id number] [place] [address] Feb, [facility] [id number] [place] [address] Feb, [facility] [address] [address] Jan, Fibromyalgia M79.7 [facility] [id number] [place] [phone] Jan, [facility] [address] [address] Jan, [facility] [address] [address] Jan, Vitamin D deficiency E55.9 [facility] [address] [address] Dec, [facility] [address] [address] Dec, [facility] [address] [address] Dec, Generalized anxiety disorder F41.1 [facility] [address] [address] Dec, Dysuria R30.0 ; Acute bilateral low back pain without sciatica M54.5 and Encounter for immunization Z23 [facility] [id number] [place] [address] Oct, [facility] [id number] [place] [address] Oct, Fibromyalgia M79.7 [facility] [id number] [place] [address] Sep, Dysuria R30.0 and Acute bronchitis, unspecified organism J20.9 [facility] [id number] [place] [address] Sep, [facility] [address] [address] Sep, Rectal prolapse K62.3 [place] [id number] [place] [address] Sep, Chronic obstructive pulmonary disease, unspecified COPD type J44.9 [facility] [id number] [place] [id number] Aug, [place] [address] [id number] Aug, [place] [address] [address] Aug, Light headedness R42 ; On antiepileptic therapy Z79.899 ; Vitamin D deficiency E55.9 ; Screening for lipid disorders Z13.220 ; Dysuria R30.0 and Hemorrhoids, unspecified hemorrhoid type K64.9 [place] [id number] [place] [address] Aug, Internal prolapsed hemorrhoids K64.8 [place] [id number] [place] [address] July, [place] [address] [address] May, [place] [id number] [place] [address] May, Fever and chills R50.9 and Influenza B J10.1 [place] [id number] [place] [address] Apr, [place] [id number] [place] [address] Apr, Fibromyalgia M79.7 and Generalized anxiety disorder F41.1 [place] [id number] [place] [address] Mar, Esophageal reflux K21.9 ; Generalized anxiety disorder F41.1 and Epilepsy G40.909 [place] [id number] [place] [address] 13 Mar, 2016 Epilepsy G40.909 ; Esophageal [...] disorders Z13.220 and On antiepileptic therapy Z79.899 [facility] [address] [address] Feb, [facility] [address] [address] Feb, [facility] [address] [address] Feb, Dysuria R30.0 and Plantar fasciitis of right foot M72.2 [facility] [id number] [place] [address] Feb, [facility] [address] [address] Feb, [facility] [id number] [place] [address] Jan, [facility] [id number] [place] [address] Jan, [facility] [id number] [place] [address] Dec, [facility] [address] [address] Dec, [facility] [address] [address] Dec, [facility] [id number] [place] [address] Nov, [facility] [id number] [place] [address] Sep, [facility] [id number] [place] [address] Aug, Shortness of breath R06.02 and Acute suppurative otitis media of right ear without spontaneous rupture of tympanic membrane, recurrence not specified H66.001 [place] [address] [address] Aug, Internal prolapsed hemorrhoids K64.8 [place] [id number] [place] [address] Jun, 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 [place] [id number] [place] [address] May, Fibromyalgia M79.7 ; Interstitial cystitis N30.10 ; Intractable migraine without aura and without status migrainosus G43.019 ; Low vitamin D level E55.9 and Ringing in right ear H93.11 [facility] [id number] [place] [address] May, [place] [id number] [place] [address] May, Low vitamin D level E55.9 [place] [id number] [place] [address] Apr, [facility] [id number] [place] [address] Mar, [place] [id number] [place] [address] Mar, Acute suppurative otitis media of right ear without spontaneous rupture of tympanic membrane, recurrence not specified H66.001 ; Encounter for immunization Z23 ; Asthma with acute exacerbation, unspecified asthma severity J45.901 ; Memory problem R41.3 ; Acute pain of right knee M25.561 ; Chronic fatigue R53.82 and Excessive urinary volume R35.8 [facility] [id number] [place] [address] Feb, [facility] [id number] [place] [address] Feb, [facility] [id number] [place] [address] Jan, [facility] [id number] [place] [address] Nov, Esophageal reflux 530.81 ; Anxiety 300.00 and Tingling in extremities 782.0 [facility] [id number] [place] [address] Oct, [facility] [id number] [place] [address] Oct, [facility] [id number] [place] [address] Oct, [facility] [id number] [place] [address] Oct, [facility] [id number] [place] [address] Oct, [facility] [id number] [place] [address] Sep, Other chronic allergic conjunctivitis 372.14 ; Irritable bowel syndrome 564.1 ; 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 ; Fibromyalgia 729.1 ; Extremity pain 729.5 and Neck pain 723.1 [facility] [id number] [place] [address] Sep, [facility] [id number] [place] [address] Aug, [facility] [id number] [place] [address] Aug, [facility] [id number] [address] July, Vomiting 787.03 [facility] [address] [id number] [id number] July, Dental examination V72.2 [facility] [id number] [address] 14 Jun, 2014 [facility] [place] [facility] [address] [facility] [id number] [address] Jun, [facility] [address] [facility] [id number], [place] [address] May, [facility] [id number], [place] [address] May, [facility] [id number] [address] May, [facility] [id number], [place] [address] May, [facility] [id number] [address] May, [facility] [id number] [address] May, [facility] [place] [facility] [id number] [address] May, [facility] [place] [facility] [id number], [place] [address] May, [facility] [place] [facility] [address] [facility] [id number], [place] [address] May, [facility] [place] [facility] [id number] [address] Apr, [facility] [place] [facility] [id number] [address] Apr, [facility] [place] [facility] [id number], [place] [address] Apr, [facility] [place] [facility] [address] [id number] [place] [address] Apr, [facility] [place] [facility] [address] [id number] [place] [address] Apr, [facility] [place] [facility] [address] [id number] [place] [address] Apr, [facility] [place] [facility] [address] [id number] [place] [address] Mar, [facility] [place] [facility] [address] [id number] [place] [address] Mar, [facility] [place] [facility] [address] [id number] [place] [address] Mar, [facility] [place] [facility] [address] [id number] [place] [address] Mar, [facility] [place] [facility] [address] [id number] [place] [address] Mar, [facility] [place] [facility] [address] [id number] [place] [address] Mar, [facility] [place] [facility] [address] [facility] [id number] [place] [address] Mar, [facility] [place] [facility] [address] [id number] [place] [address] Mar, [facility] [place] [facility] [address] [id number] [place] [address] Mar, [facility] [place] [facility] [address] [id number] [place] [address] Mar, [facility] [place] [facility] [address] [id number] [place] [address] Mar, [facility] [place] [facility] [address] [id number] [place] [address] Mar, [facility] [place] [facility] [address] [id number] [place] [address] Mar, [facility] [place] [facility] [address] [id number] [place] [address] Mar, [facility] [place] [facility] [address] [id number] [place] [address] Mar, [facility] [place] [facility] [address] [id number] [place] [address] Mar, [facility] [place] [facility] [address] [id number] [place] [address] Mar, [facility] [place] [facility] [address] [id number] [place] [address] Mar, [facility] [place] [facility] [address] [id number] [place] [address] Mar, [facility] [place] [facility] [address] [id number] [place] [address] Feb, [facility] [place] [facility] [address] [id number] [place] [address] Feb, [facility] [place] [facility] [address] [id number] [place] [address] Feb, [facility] [place] [facility] [address] [id number] [place] [address] Feb, [facility] [place] [facility] [address] [id number] [place] [address] Jan, [facility] [place] [facility] [address] [id number] [place] [address] Jan, [facility] [place] [facility] [address] [id number] [place] [address] 14 Jan, 2014 [facility] [place] [facility] [address] [id number] [place] [address] 14 Jan, 2014 [facility] [place] [facility] [address] [id number] [place] [address] 14 Jan, 2014 [facility] [place] [facility] [address] [id number] [place] [address] 14 Jan, 2014 [facility] [place] [facility] [address] [id number] [place] [address] 07 Jan, 2014 [facility] [place] [facility] [address] [id number] [place] [address] Jan, [facility] [place] [facility] [address] [id number] [place] [address] Dec, [facility] [place] [facility] [address] [id number] [place] [address] Dec, [facility] [place] [facility] [address] [id number] [place] [address] Dec, [facility] [place] [facility] [address] [id number] [place] [address] Dec, [facility] [place] [facility] [address] [id number] [place] [address] 22 Sep, 2013 [facility] [place] [facility] [address] [id number] [place] [address] 22 Sep, 2013 [facility] [place] [facility] [address] [id number] [place] [address] 08 Sep, 2013 [facility] [place] [facility] [address] [id number] [place] [address] 08 Sep, 2013 [facility] [place] [facility] [address] [id number], [place] [address] 05 Sep, 2013 [facility] [place] [facility] [address] [id number] [place] [address] 05 Sep, 2013 [facility] [place] [facility] [address] [id number] [place] [address] 04 Sep, 2013 [facility] [place] [facility] [address] [id number] [place] [address] 04 Sep, 2013 [facility] [place] [facility] [address] [id number] [place] [address] Nov, [facility] [place] [facility] [address] [id number] [place] [address] Nov, [facility] [place] [facility] [address] [id number] [place] [address] Oct, [facility] [place] [facility] [address] [id number] [place] [address] Oct, [facility] [place] [facility] [address] [id number] [place] [address] Sep, [facility] [place] [facility] [address] [id number] [place] [address] Sep, [facility] [place] [facility] [address] [id number] [place] [address] Sep, [facility] [place] [facility] [address] [id number] [place] [address] Sep, [facility] [place] [facility] [address] [id number] [place] [address] Sep, [facility] [place] [facility] [address] [id number] [place] [address] Sep, [facility] [place] [facility] [address] [id number] [place] [address] Aug, [facility] [place] [facility] [address] [id number] [place] [address] Aug, [facility] [place] [facility] [address] [id number] [place] [address] Aug, [facility] [place] [facility] [address] [id number] [place] [address] Aug, [facility] [place] [facility] [address] [id number] [place] [address] Aug, [facility] [place] [facility] [address] [id number] [place] [address] Aug, [facility] [place] [facility] [address] [id number] [place] [address] July, [facility] [place] [facility] [address] [id number] [place] [address] July, [facility] [place] [facility] [address] [id number] [place] [address] July, [facility] [place] [facility] [address] [id number] [place] [address] July, [facility] [place] [facility] [address] [id number] [place] [address] July, [facility] [place] [facility] [address] [id number] [place] [address] July, [facility] [place] [facility] [address] [id number] [place] [address] Jun, [facility] [place] [facility] [address] [id number] [place] [address] Jun, [facility] [place] [facility] [address] [id number] [place] [address] Jun, [facility] [place] [facility] [address] [id number] [place] [address] Jun, [facility] [place] [facility] [address] [id number] [place] [address] May, [facility] [place] [facility] [address] [id number] [place] [address] May, [facility] [place] [facility] [address] [id number] [place] [address] Apr, [facility] [place] [facility] [address] [id number] [place] [address] Apr, [facility] [place] [facility] [address] [id number] [place] [address] Apr, [facility] [place] [facility] [address] [id number] [place] [address] 07 Apr, 2013 [facility] [address] [id number] [place] [address] Mar, [facility] [place] [facility] [address] [id number] [place] [address] Mar, [facility] [place] [facility] [address] [id number] [place] [address] Mar, [facility] [place] [facility] [address] [id number] [place] [address] Mar, [facility] [place] [facility] [address] [id number] [place] [address] Mar, [facility] [place] [facility] [address] [id number] [place] [address] Mar, [facility] [address] [id number] [place] [address] Feb, [facility] [place] [facility] [address] [id number] [place] [address] Feb, [facility] [place] [facility] [address] [id number] [place] [address] Jan, [facility] [place] [facility] [address] [id number] [place] [address] Jan, [facility] [place] [facility] [address] [id number] [place] [address] Jan, [facility] [place] [facility] [address] [id number] [place] [address] Jan, [facility] [place] [facility] [address] [id number] [place] [address] Nov, [facility] [place] [facility] [address] [id number] [place] [address] Nov, [facility] [place] [facility] [address] [id number] [place] [address] Oct, [facility] [place] [facility] [address] [id number] [place] [address] Oct, [facility] [address] [id number] [place] [address] Sep, [facility] [place] [facility] [address] [id number] [place] [address] Sep, [facility] [address] [id number] [place] [address] Sep, [facility] [address] [id number] [place] [address] Aug, [facility] [place] [facility] [address] [id number] [place] [address] Aug, [facility] [address] [id number] [place] [address] Aug, [facility] [address] [address] [id number] [place] [address] Aug, [facility] [address] [id number] [place] [address] July, [facility] [address] [id number] [place] [address] July, [facility] [address] [id number] [place] [address] July, [facility] [address] [id number] [place] [address] July, [facility] [place] [facility] [address] [id number] [place] [address] Jun, [facility] [place] [facility] [address] [id number] [place] [address] Jun, [facility] [place] [facility] [address] [id number] [place] [address] Jun, [facility] [place] [facility] [address] [id number] [place] [address] May, [facility] [address] [id number] [place] [address] May, [facility] [place] [facility] [address] [id number] [place] [address] Apr, [facility] [address] [id number] [place] [address] Apr, [facility] [place] [facility] [address] [id number] [place] [address] Apr, [facility] [address] [id number] [place] [address] Apr, [facility] [address] [id number] [place] [address] Mar, [facility] [address] [id number] [place] [address] Mar, [facility] [address] [id number] [place] [address] Mar, [facility] [address] [id number] [place] [address] Mar, [facility] [address] [id number] [place] [address] Feb, [facility] [address] [id number] [place] [address] Feb, [facility] [place] [facility] [address] [id number] [place] [address] Feb, [facility] [place] [facility] [address] [id number] [place] [address] Feb, [facility] [place] [facility] [address] [id number] [place] [address] Feb, [facility] [place] [facility] [address] [id number] [place] [address] Feb, [facility] [place] [facility] [address] [id number] [place] [address] 04 Feb, 2012 [facility] [place] [facility] [address] [id number] [place] [address] Feb, [facility] [place] [facility] [address] [id number] [place] [address] Jan, [facility] [place] [facility] [address] [id number] [place] [address] 28 Jan, 2012 [facility] [place] [facility] [address] [id number] [place] [address] 15 Jan, 2012 [facility] [place] [facility] [address] [id number] [place] [address] 15 Jan, 2012 [facility] [place] [facility] [address] [id number] [place] [address] 14 Jan, 2012 [facility] [place] [facility] [address] [id number] [place] [address] Jan, [facility] [place] [facility] [address] [id number] [place] [address] Jan, [facility] [place] [facility] [address] [id number] [place] [address] Jan, [facility] [place] [facility] [address] [id number] [place] [address] Jan, [facility] [place] [facility] [address] [id number] [place] [address] Jan, [facility] [place] [facility] [address] [id number] [place] [address] Jan, [facility] [place] [facility] [address] [id number] [place] [address] Dec, [facility] [place] [facility] [address] [id number] [place] [address] Dec, [facility] [place] [facility] [address] [id number] [place] [address] Dec, [facility] [place] [facility] [address] [id number] [place] [address] Dec, [facility] [place] [facility] [address] [id number] [place] [address] Dec, [facility] [place] [facility] [address] [id number] [place] [address] Dec, [facility] [place] [facility] [address] [id number] [place] [address] Dec, [facility] [place] [facility] [address] [id number] [place] [address] Dec, [facility] [place] [facility] [address] [id number] [place] [address] Dec, [facility] [place] [facility] [address] [id number] [place] [address] Dec, [facility] [place] [facility] [address] [id number], [place] [address] Dec, [facility] [place] [facility] [address] [id number] [place] [address] Dec, [facility] [place] [facility] [address] [id number], [place] [address] Nov, [facility] [place] [facility] [address] [id number], [place] [address] Oct, [facility] [place] [facility] [address] [id number], [place] [address] Oct, [facility] [place] [facility] [address] [id number] [place] [address] Oct, [facility] [place] [facility] [address] [id number], [place] [address] Oct, [facility] [place] [facility] [address] [id number] [place] [address] Sep, [facility] [place] [facility] [id number], [place] [address] Sep, [facility] [id number], [place] [address] Sep, [facility] [id number] [place] [address] Sep, [facility] [id number], [place] [address] Aug, [facility] [id number], [place] [address] Aug, [facility] [id number], [place] [address] Aug, [facility] [id number], [place] [address] Aug, [facility] [id number] [place] [address] Aug, [facility] [id number] [place] [address] July, [facility] [id number] [place] [address] July, [facility] [id number] [place] [address] July, [facility] [id number] [address] Dec, IMMUNIZATIONS No Known Immunizations SOCIAL HISTORY Never Assessed REASON FOR VISIT Referral/lab request PLAN OF CARE VITAL SIGNS MEDICATIONS [...]
--- OUTSIDE RECORDS SUMMARY | 2018-10-24 12:45 | XMS REPORT ---
Author Author DIANN DAMON [facility] eClinicalWorks Address Unknown Phone Unavailable Care Team Providers Care Parts Interpreter Name Role Phone DIANN DAMON Unavailable Allergies [...] Instructions Start Date End Date Status Dosage Vitamin D (Ergocalciferol) [facility] [id number] UNIT Orally one x weekly x 12 weeks Mar 27, 2015 1 capsule Results No Known Results Summary Purpose eClinicalWorks Submission
--- OUTSIDE RECORDS SUMMARY | 2018-10-24 12:51 | XMS REPORT | Continuity of Care Document ---
Author Organization Unknown Address Unknown Phone Unavailable Allergies Active Description Code Type Severity Reaction Onset Reported/Identified Relationship to Patient Clinical Status Yes Sulfa (Sulfonamide Antibiotics) [id number] Drug Allergy Mild N/A 07/08/2008 Yes tramadol [id number] Drug Allergy Mild N/A 08/31/2008 Yes nitrofurantoin [id number] Drug Allergy Mild N/A 09/14/2008 Yes cephalexin [id number] Drug Allergy Mild N/A 10/04/2008 Yes Sulfa(Sulfonamide Antibiotics) Drug Allergy N/A N/A 08/04/2011 Yes Sulfa(Sulfonamide Antibiotics) Drug Allergy 08/04/2011 Yes Amitiza Drug Allergy 01/01/2012 Yes Artane Drug Allergy 01/01/2012 Yes Cephalexin Drug Allergy 01/01/2012 Yes Nitrofurantoin Drug Allergy 01/01/2012 Yes tramadol Drug Allergy 01/01/2012 Yes lubiprostone [id number] Drug Allergy Unknown N/A 06/17/2012 Yes Benzodiazepines Drug Allergy 06/23/2012 Yes Hydrocodone Drug Allergy 06/23/2012 Yes trihexyphenidyl [id number] Drug Allergy Unknown N/A 12/21/2013 Medications There is no data. Problems Date Dx Coded Attending Type Code Diagnosis Diagnosed By 04/23/2009 Ot 793.81 12/04/2009 Ot 780.2 12/04/2009 Ot 780.4 12/04/2009 Ot 788.1 07/23/2010 Ot 785.1 08/20/2010 Ot 785.1 08/20/2010 Ot 786.50 08/20/2010 Ot 786.52 02/25/2011 Ot 300.00 04/06/2011 Ot 300.00 04/06/2011 Ot 300.01 04/28/2011 Ot 300.00 04/28/2011 Ot 785.1 06/23/2011 Ot 682.3 08/04/2011 CATRINA WANG DO 338.29 OTHER CHRONIC PAIN 08/04/2011 WANG DO, CATRINA K 530.81 GERD 08/04/2011 WANG DO, CATRINA K 564.00 CONSTIPATION 08/04/2011 WANG DO, CATRINA K 786.07 Wheezing 08/04/2011 WANG DO, CATRINA K V65.42 COUNSELING - SMOKING CESSATION 08/04/2011 338.29 OTHER CHRONIC PAIN 08/04/2011 530.81 GERD 08/04/2011 564.00 CONSTIPATION 08/04/2011 786.07 Wheezing 08/04/2011 V65.42 COUNSELING - SMOKING CESSATION 08/04/2011 FOSTER GONCALVES, PRECIOUS Singh 338.29 OTHER CHRONIC PAIN 08/04/2011 FOSTER GONCALVES, PRECIOUS Singh 530.81 GERD 08/04/2011 FOSTER GONCALVES, PRECIOUS Singh 564.00 CONSTIPATION 08/04/2011 FOSTER GONCALVES, PRECIOUS Singh 786.07 Wheezing 08/04/2011 FOSTER GONCALVES, PRECIOUS Singh V65.42 COUNSELING - SMOKING CESSATION 08/04/2011 338.29 OTHER CHRONIC PAIN 08/04/2011 530.81 GERD 08/04/2011 564.00 CONSTIPATION 08/04/2011 786.07 Wheezing 08/04/2011 V65.42 COUNSELING - SMOKING CESSATION 08/04/2011 WANG DO, CATRINA K 338.29 OTHER CHRONIC PAIN 08/04/2011 WANG DO, CATRINA K 530.81 GERD 08/04/2011 WANG DO, CATRINA K 564.00 CONSTIPATION 08/04/2011 WANG DO, CATRINA K 786.07 Wheezing 08/04/2011 WANG DO, CATRINA K V65.42 COUNSELING - SMOKING CESSATION 08/04/2011 WANG DO, CATRINA K 338.29 OTHER CHRONIC PAIN 08/04/2011 WANG DO, CATRINA K 530.81 GERD 08/04/2011 WANG DO, CATRINA K 564.00 CONSTIPATION 08/04/2011 WANG DO, CATRINA K 786.07 Wheezing 08/04/2011 WANG DO, CATRINA K V65.42 COUNSELING - SMOKING CESSATION 08/04/2011 338.29 OTHER CHRONIC PAIN 08/04/2011 530.81 GERD 08/04/2011 564.00 CONSTIPATION 08/04/2011 786.07 Wheezing 08/04/2011 V65.42 COUNSELING - SMOKING CESSATION 08/04/2011 WANG DO, CATRINA K 338.29 OTHER CHRONIC PAIN 08/04/2011 WANG DO, CATRINA K 530.81 GERD 08/04/2011 WANG DO, CATRINA K 564.00 CONSTIPATION 08/04/2011 WANG DO, CATRINA K 786.07 Wheezing 08/04/2011 WANG DO, CATRINA K V65.42 COUNSELING - SMOKING CESSATION 08/04/2011 WANG DO, CATRINA K 338.29 OTHER CHRONIC PAIN 08/04/2011 WANG DO, CATRINA K 530.81 GERD 08/04/2011 WANG DO, CATRINA K 564.00 CONSTIPATION 08/04/2011 WANG DO, CATRINA K 786.07 Wheezing 08/04/2011 WANG DO, CATRINA K V65.42 COUNSELING - SMOKING CESSATION 08/04/2011 WANG DO, CATRIAN K 338.29 OTHER CHRONIC PAIN 08/04/2011 WANG DO, CATRINA K 530.81 GERD 08/04/2011 WANG DO, CATRINA K 564.00 CONSTIPATION 08/04/2011 WANG DO, CATRINA K 786.07 Wheezing 08/04/2011 WANG DO, CATRINA K V65.42 COUNSELING - SMOKING CESSATION 08/04/2011 WANG DO, CATRINA K 338.29 OTHER CHRONIC PAIN 08/04/2011 WANG DO, CATRINA K 530.81 GERD 08/04/2011 WANG DO, CATRINA K 564.00 CONSTIPATION 08/04/2011 WANG DO, CATRINA K 786.07 Wheezing 08/04/2011 WANG DO, CATRINA K V65.42 COUNSELING - SMOKING CESSATION 08/04/2011 WANG DO, CATRINA K 338.29 OTHER CHRONIC PAIN 08/04/2011 WANG DO, CATRINA K 530.81 GERD 08/04/2011 WANG DO, CATRINA K 564.00 CONSTIPATION 08/04/2011 WANG DO, CATRINA K 786.07 Wheezing 08/04/2011 WANG DO, CATRINA K V65.42 COUNSELING - SMOKING CESSATION 08/04/2011 WANG DO, CATRINA K 338.29 OTHER CHRONIC PAIN 08/04/2011 WANG DO, CATRINA K 530.81 GERD 08/04/2011 WANG DO, CATRINA K 564.00 CONSTIPATION 08/04/2011 WANG DO, CATRINA K 786.07 Wheezing 08/04/2011 WANG DO, CATRINA K V65.42 COUNSELING - SMOKING CESSATION 08/04/2011 WANG DO, CATRINA K 338.29 OTHER CHRONIC PAIN 08/04/2011 WANG DO, CATRINA K 530.81 GERD 08/04/2011 WANG DO, CATRINA K 564.00 CONSTIPATION 08/04/2011 WANG DO, CATRINA K 786.07 Wheezing 08/04/2011 WANG DO, CATRINA K V65.42 COUNSELING - SMOKING CESSATION 08/04/2011 WANG DO, CATRINA K 338.29 OTHER CHRONIC PAIN 08/04/2011 WANG DO, CATRINA K 530.81 GERD 08/04/2011 WANG DO, CATRINA K 564.00 CONSTIPATION 08/04/2011 WANG DO, CATRINA K 786.07 Wheezing 08/04/2011 WANG DO, CATRINA K V65.42 COUNSELING - SMOKING CESSATION 08/04/2011 WANG DO, CATRINA K 338.29 OTHER CHRONIC PAIN 08/04/2011 WANG DO, CATRINA K 530.81 GERD 08/04/2011 WANG DO, CATRINA K 564.00 CONSTIPATION 08/04/2011 WANG DO, CATRINA K 786.07 Wheezing 08/04/2011 WANG DO, CATRINA K V65.42 COUNSELING - SMOKING CESSATION 08/04/2011 WANG DO, CATRINA K 338.29 OTHER CHRONIC PAIN 08/04/2011 WANG DO, CATRINA K 530.81 GERD 08/04/2011 WANG DO, CATRINA K 564.00 CONSTIPATION 08/04/2011 WANG DO, CATRINA K 786.07 Wheezing 08/04/2011 WANG DO, CATRINA K V65.42 COUNSELING - SMOKING CESSATION 08/04/2011 WANG DO, CATRINA K 338.29 OTHER CHRONIC PAIN 08/04/2011 WANG DO, CATRINA K 530.81 GERD 08/04/2011 WANG DO, CATRINA K 564.00 CONSTIPATION 08/04/2011 WANG DO, CATRINA K 786.07 Wheezing 08/04/2011 WANG DO, CATRINA K V65.42 COUNSELING - SMOKING CESSATION 08/04/2011 WANG DO, CATRINA K 338.29 OTHER CHRONIC PAIN 08/04/2011 WANG DO, CATRINA K 530.81 GERD 08/04/2011 WANG DO, CATRINA K 564.00 CONSTIPATION 08/04/2011 WANG DO, CATRINA K 786.07 Wheezing 08/04/2011 WANG DO, CATRINA K V65.42 COUNSELING - SMOKING CESSATION 08/04/2011 WANG DO, CATRINA K 338.29 OTHER CHRONIC PAIN 08/04/2011 WANG DO, CATRINA K 530.81 GERD 08/04/2011 WANG DO, CATRINA K 564.00 CONSTIPATION 08/04/2011 WANG DO, CATRINA K 786.07 Wheezing 08/04/2011 WANG DO, CATRINA K V65.42 COUNSELING - SMOKING CESSATION 08/04/2011 WANG DO, CATRINA K 338.29 OTHER CHRONIC PAIN 08/04/2011 WANG DO, CATRINA K 530.81 GERD 08/04/2011 WANG DO, CATRINA K 564.00 CONSTIPATION 08/04/2011 WANG DO, CATRINA K 786.07 Wheezing 08/04/2011 WANG DO, CATRINA K V65.42 COUNSELING - SMOKING CESSATION 08/04/2011 WANG DO, CATRINA K 338.29 OTHER CHRONIC PAIN 08/04/2011 WANG DO, CATRINA K 530.81 GERD 08/04/2011 WANG DO, CATRINA K 564.00 CONSTIPATION 08/04/2011 WANG DO, CATRINA K 786.07 Wheezing 08/04/2011 WANG DO, CATRINA K V65.42 COUNSELING - SMOKING CESSATION 08/04/2011 COLEMAN MILLER RN 338.29 OTHER CHRONIC PAIN 08/04/2011 COLEMAN MILLER RN 530.81 GERD 08/04/2011 COLEMAN MILLER RN 564.00 CONSTIPATION 08/04/2011 COLEMAN MILLER RN 786.07 Wheezing 08/04/2011 COLEMAN MILLER RN V65.42 COUNSELING - SMOKING CESSATION 08/04/2011 COLEMAN MILLER RN 338.29 OTHER CHRONIC PAIN 08/04/2011 COLEMAN MILLER RN E 530.81 GERD 08/04/2011 COLEMAN MILLER RN E 564.00 CONSTIPATION 08/04/2011 COLEMAN MILLER RN 786.07 Wheezing 08/04/2011 COLEMAN MILLER RN V65.42 COUNSELING - SMOKING CESSATION 08/04/2011 COLEMAN MILLER RN 338.29 OTHER CHRONIC PAIN 08/04/2011 COLEMAN MILLER RN E 530.81 GERD 08/04/2011 COLEMAN MILLER RN E 564.00 CONSTIPATION 08/04/2011 COLEMAN MILLER RN 786.07 Wheezing 08/04/2011 COLEMAN MILLER RN V65.42 COUNSELING - SMOKING CESSATION 08/04/2011 DIANN DAMON MD 338.29 OTHER CHRONIC PAIN 08/04/2011 DIANN DAMON MD 530.81 GERD 08/04/2011 DIANN DAMON MD 564.00 CONSTIPATION 08/04/2011 DIANN DAMON MD N 786.07 Wheezing 08/04/2011 DIANN DAMON MD V65.42 COUNSELING - SMOKING CESSATION 08/04/2011 ANGELA DELATORRE, COLEMAN E 338.29 OTHER CHRONIC PAIN 08/04/2011 ANGELA RN, COLEMAN E 530.81 GERD 08/04/2011 ANGELA DELATORRE, COLEMAN E 564.00 CONSTIPATION 08/04/2011 ANGELA DELATORRE, COLEMAN E 786.07 Wheezing 08/04/2011 ANGELA DELATORRE, COLEMAN E V65.42 COUNSELING - SMOKING CESSATION 08/04/2011 DIANN DAMON MD N 338.29 OTHER CHRONIC PAIN 08/04/2011 DIANN DAMON MD 530.81 GERD 08/04/2011 DIANN DAMON MD 564.00 CONSTIPATION 08/04/2011 DIANN DAMON MD 786.07 Wheezing 08/04/2011 DIANN DAMON MD V65.42 COUNSELING - SMOKING CESSATION 08/04/2011 ANGELA DELATORRE, COLEMAN E 338.29 OTHER CHRONIC PAIN 08/04/2011 ANGELA DELATORRE, COLEMAN E 530.81 GERD 08/04/2011 ANGELA RN, COLEMAN E 564.00 CONSTIPATION 08/04/2011 ANGELA RN, COLEMAN E 786.07 Wheezing 08/04/2011 ANGELA DELATORRE, COLEMAN E V65.42 COUNSELING - SMOKING CESSATION 08/04/2011 DIANN DAMON MD N 338.29 OTHER CHRONIC PAIN 08/04/2011 DIANN DAMON MD 530.81 GERD 08/04/2011 DIANN DAMON MD N 564.00 CONSTIPATION 08/04/2011 DIANN DAMON MD 786.07 Wheezing 08/04/2011 DIANN DAMON MD V65.42 COUNSELING - SMOKING CESSATION 08/04/2011 DIANN DAMON MD N 338.29 OTHER CHRONIC PAIN 08/04/2011 DIANN DAMON MD 530.81 GERD 08/04/2011 DIANN DAMON MD 564.00 CONSTIPATION 08/04/2011 DIANN DAMON MD 786.07 Wheezing 08/04/2011 DIANN DAMON MD V65.42 COUNSELING - SMOKING CESSATION 08/18/2011 CATRINA WANG DO K 461.9 Sinusitis Acute 08/18/2011 WANG DO, CATRINA K 706.8 OTHER SPECIFIED DISEASES OF SEBACEOUS GLANDS 08/18/2011 WANG DO, CATRINA K 720.2 SACROILIITIS NOT ELSEWHERE CLASSIFIED 08/18/2011 WANG DO, CATRINA K 781.0 ABNORMAL INVOLUNTARY MOVEMENTS 08/18/2011 WANG DO, CATRINA K 788.1 Dysuria 08/18/2011 461.9 Sinusitis Acute 08/18/2011 706.8 OTHER SPECIFIED DISEASES OF SEBACEOUS GLANDS 08/18/2011 720.2 SACROILIITIS NOT ELSEWHERE CLASSIFIED 08/18/2011 781.0 ABNORMAL INVOLUNTARY MOVEMENTS 08/18/2011 788.1 Dysuria 08/18/2011 FOSTER GONCALVES, PRECIOUS Singh 461.9 Sinusitis Acute 08/18/2011 FOSTER GONCALVES, PRECIOUS Singh 706.8 OTHER SPECIFIED DISEASES OF SEBACEOUS GLANDS 08/18/2011 FOSTER GONCALVES, PRECIOUS Singh 720.2 SACROILIITIS NOT ELSEWHERE CLASSIFIED 08/18/2011 FOSTER GONCALVES, PRECIOUS Singh 781.0 ABNORMAL INVOLUNTARY MOVEMENTS 08/18/2011 FOSTER GONCALVES, PRECIOUS M 788.1 Dysuria 08/18/2011 461.9 Sinusitis Acute 08/18/2011 706.8 OTHER SPECIFIED DISEASES OF SEBACEOUS GLANDS 08/18/2011 720.2 SACROILIITIS NOT ELSEWHERE CLASSIFIED 08/18/2011 781.0 ABNORMAL INVOLUNTARY MOVEMENTS 08/18/2011 788.1 Dysuria 08/18/2011 WANG DO, CATRINA K 461.9 Sinusitis Acute 08/18/2011 WANG DO, CATRINA K 706.8 OTHER SPECIFIED DISEASES OF SEBACEOUS GLANDS 08/18/2011 WANG DO, CATRINA K 720.2 SACROILIITIS NOT ELSEWHERE CLASSIFIED 08/18/2011 WANG DO, CATRINA K 781.0 ABNORMAL INVOLUNTARY MOVEMENTS 08/18/2011 WANG DO, CATRINA K 788.1 Dysuria 08/18/2011 WANG DO, CATRINA K 461.9 Sinusitis Acute 08/18/2011 WANG DO, CATRINA K 706.8 OTHER SPECIFIED DISEASES OF SEBACEOUS GLANDS 08/18/2011 WANG DO, CATRINA K 720.2 SACROILIITIS NOT ELSEWHERE CLASSIFIED 08/18/2011 WANG DO, CATRINA K 781.0 ABNORMAL INVOLUNTARY MOVEMENTS 08/18/2011 WANG DO, CATRINA K 788.1 Dysuria 08/18/2011 461.9 Sinusitis Acute 08/18/2011 706.8 OTHER SPECIFIED DISEASES OF SEBACEOUS GLANDS 08/18/2011 720.2 SACROILIITIS NOT ELSEWHERE CLASSIFIED 08/18/2011 781.0 ABNORMAL INVOLUNTARY MOVEMENTS 08/18/2011 788.1 Dysuria 08/18/2011 WANG DO, CATRINA K 461.9 Sinusitis Acute 08/18/2011 WANG DO, CATRINA K 706.8 OTHER SPECIFIED DISEASES OF SEBACEOUS GLANDS 08/18/2011 WANG DO, CATRINA K 720.2 SACROILIITIS NOT ELSEWHERE CLASSIFIED 08/18/2011 WANG DO, CATRINA K 781.0 ABNORMAL INVOLUNTARY MOVEMENTS 08/18/2011 WANG DO, CATRINA K 788.1 Dysuria 08/18/2011 WANG DO, CATRINA K 461.9 Sinusitis Acute 08/18/2011 WANG DO, CATRINA K 706.8 OTHER SPECIFIED DISEASES OF SEBACEOUS GLANDS 08/18/2011 WANG DO, CATRINA K 720.2 SACROILIITIS NOT ELSEWHERE CLASSIFIED 08/18/2011 WANG DO, CATRINA K 781.0 ABNORMAL INVOLUNTARY MOVEMENTS 08/18/2011 WANG DO, CATRINA K 788.1 Dysuria 08/18/2011 WANG DO, CATRINA K 461.9 Sinusitis Acute 08/18/2011 WANG DO, CATRINA K 706.8 OTHER SPECIFIED DISEASES OF SEBACEOUS GLANDS 08/18/2011 WANG DO, CATRINA K 720.2 SACROILIITIS NOT ELSEWHERE CLASSIFIED 08/18/2011 WANG DO, CATRINA K 781.0 ABNORMAL INVOLUNTARY MOVEMENTS 08/18/2011 WANG DO, CATRINA K 788.1 Dysuria 08/18/2011 WANG DO, CATRINA K 461.9 Sinusitis Acute 08/18/2011 WANG DO, CATRINA K 706.8 OTHER SPECIFIED DISEASES OF SEBACEOUS GLANDS 08/18/2011 WANG DO, CATRINA K 720.2 SACROILIITIS NOT ELSEWHERE CLASSIFIED 08/18/2011 WANG DO, CATRINA K 781.0 ABNORMAL INVOLUNTARY MOVEMENTS 08/18/2011 WANG DO, CATRINA K 788.1 Dysuria 08/18/2011 WANG DO, CATRINA K 461.9 Sinusitis Acute 08/18/2011 WANG DO, CATRINA K 706.8 OTHER SPECIFIED DISEASES OF SEBACEOUS GLANDS 08/18/2011 WANG DO, CATRINA K 720.2 SACROILIITIS NOT ELSEWHERE CLASSIFIED 08/18/2011 WANG DO, CATRINA K 781.0 ABNORMAL INVOLUNTARY MOVEMENTS 08/18/2011 WANG DO, CATRINA K 788.1 Dysuria 08/18/2011 WANG DO, CATRINA K 461.9 Sinusitis Acute 08/18/2011 WANG DO, CATRINA K 706.8 OTHER SPECIFIED DISEASES OF SEBACEOUS GLANDS 08/18/2011 WANG DO, CATRINA K 720.2 SACROILIITIS NOT ELSEWHERE CLASSIFIED 08/18/2011 WANG DO, CATRINA K 781.0 ABNORMAL INVOLUNTARY MOVEMENTS 08/18/2011 WANG DO, CATRINA K 788.1 Dysuria 08/18/2011 WANG DO, CATRINA K 461.9 Sinusitis Acute 08/18/2011 WANG DO, CATRINA K 706.8 OTHER SPECIFIED DISEASES OF SEBACEOUS GLANDS 08/18/2011 WANG DO, CATRINA K 720.2 SACROILIITIS NOT ELSEWHERE CLASSIFIED 08/18/2011 WANG DO, CATRINA K 781.0 ABNORMAL INVOLUNTARY MOVEMENTS 08/18/2011 WANG DO, CATRINA K 788.1 Dysuria 08/18/2011 WANG DO, CATRINA K 461.9 Sinusitis Acute 08/18/2011 WANG DO, CATRINA K 706.8 OTHER SPECIFIED DISEASES OF SEBACEOUS GLANDS 08/18/2011 WANG DO, CATRINA K 720.2 SACROILIITIS NOT ELSEWHERE CLASSIFIED 08/18/2011 WANG DO, CATRINA K 781.0 ABNORMAL INVOLUNTARY MOVEMENTS 08/18/2011 WANG DO, CATRINA K 788.1 Dysuria 08/18/2011 WANG DO, CATRINA K 461.9 Sinusitis Acute 08/18/2011 WANG DO, CATRINA K 706.8 OTHER SPECIFIED DISEASES OF SEBACEOUS GLANDS 08/18/2011 WANG DO, CATRINA K 720.2 SACROILIITIS NOT ELSEWHERE CLASSIFIED 08/18/2011 WAGN DO, CATRINA K 781.0 ABNORMAL INVOLUNTARY MOVEMENTS 08/18/2011 WANG DO, CATRINA K 788.1 Dysuria 08/18/2011 WANG DO, CATRINA K 461.9 Sinusitis Acute 08/18/2011 WANG DO, CATRINA K 706.8 OTHER SPECIFIED DISEASES OF SEBACEOUS GLANDS 08/18/2011 WANG DO, CATRINA K 720.2 SACROILIITIS NOT ELSEWHERE CLASSIFIED 08/18/2011 WANG DO, CATRINA K 781.0 ABNORMAL INVOLUNTARY MOVEMENTS 08/18/2011 WANG DO, CATRINA K 788.1 Dysuria 08/18/2011 WANG DO, CATRINA K 461.9 Sinusitis Acute 08/18/2011 WANG DO, CATRINA K 706.8 OTHER SPECIFIED DISEASES OF SEBACEOUS GLANDS 08/18/2011 WANG DO, CATRINA K 720.2 SACROILIITIS NOT ELSEWHERE CLASSIFIED 08/18/2011 WANG DO, CATRINA K 781.0 ABNORMAL INVOLUNTARY MOVEMENTS 08/18/2011 WANG DO, CATRINA K 788.1 Dysuria 08/18/2011 WANG DO, CATRINA K 461.9 Sinusitis Acute 08/18/2011 WANG DO, CATRINA K 706.8 OTHER SPECIFIED DISEASES OF SEBACEOUS GLANDS 08/18/2011 WANG DO, CATRINA K 720.2 SACROILIITIS NOT ELSEWHERE CLASSIFIED 08/18/2011 WANG DO, CATRINA K 781.0 ABNORMAL INVOLUNTARY MOVEMENTS 08/18/2011 WANG DO, CATRINA K 788.1 Dysuria 08/18/2011 WANG DO, CATRINA K 461.9 Sinusitis Acute 08/18/2011 WANG DO, CATRINA K 706.8 OTHER SPECIFIED DISEASES OF SEBACEOUS GLANDS 08/18/2011 WANG DO, CATRINA K 720.2 SACROILIITIS NOT ELSEWHERE CLASSIFIED 08/18/2011 WANG DO, CATRINA K 781.0 ABNORMAL INVOLUNTARY MOVEMENTS 08/18/2011 WANG DO, CATRINA K 788.1 Dysuria 08/18/2011 WANG DO, CATRINA K 461.9 Sinusitis Acute 08/18/2011 WANG DO, CATRINA K 706.8 OTHER SPECIFIED DISEASES OF SEBACEOUS GLANDS 08/18/2011 WANG DO, CATRINA K 720.2 SACROILIITIS NOT ELSEWHERE CLASSIFIED 08/18/2011 WANG DO, CATRINA K 781.0 ABNORMAL INVOLUNTARY MOVEMENTS 08/18/2011 WANG DO, CATRINA K 788.1 Dysuria 08/18/2011 WANG DO, CATRINA K 461.9 Sinusitis Acute 08/18/2011 WANG DO, CATRINA K 706.8 OTHER SPECIFIED DISEASES OF SEBACEOUS GLANDS 08/18/2011 WANG DO, CATRINA K 720.2 SACROILIITIS NOT ELSEWHERE CLASSIFIED 08/18/2011 WANG DO, CATRINA K 781.0 ABNORMAL INVOLUNTARY MOVEMENTS 08/18/2011 WANG DO, CATRINA K 788.1 Dysuria 08/18/2011 ANGELA DELATORRE, COLEMAN E 461.9 Sinusitis Acute 08/18/2011 ANGELA DELATORRE, COLEMAN E 706.8 OTHER SPECIFIED DISEASES OF SEBACEOUS GLANDS 08/18/2011 ANGELA DELATORRE, COLEMAN E 720.2 SACROILIITIS NOT ELSEWHERE CLASSIFIED 08/18/2011 ANGELA DELATORRE, COLEMAN E 781.0 ABNORMAL INVOLUNTARY MOVEMENTS 08/18/2011 ANGELA DELATORRE, COLEMAN E 788.1 Dysuria 08/18/2011 REGINA MILLER RNISTA E 461.9 Sinusitis Acute 08/18/2011 ANGELA DELATORRE, COLEMAN E 706.8 OTHER SPECIFIED DISEASES OF SEBACEOUS GLANDS 08/18/2011 ANGELA DELATORRE, COLEMAN E 720.2 SACROILIITIS NOT ELSEWHERE CLASSIFIED 08/18/2011 REGINA MILLER RNISTA E 781.0 ABNORMAL INVOLUNTARY MOVEMENTS 08/18/2011 ANGELA DELATORRE, COLEMAN E 788.1 Dysuria 08/18/2011 REGINA MILLER RNISTA E 461.9 Sinusitis Acute 08/18/2011 REGINA MILLER RNISTA E 706.8 OTHER SPECIFIED DISEASES OF SEBACEOUS GLANDS 08/18/2011 ANGELA DELATORRE, COLEMAN E 720.2 SACROILIITIS NOT ELSEWHERE CLASSIFIED 08/18/2011 ANGELA DELATORRE, COLEMAN E 781.0 ABNORMAL INVOLUNTARY MOVEMENTS 08/18/2011 ANGELA DELATORRE, COLEMAN E 788.1 Dysuria 08/18/2011 DIANN DAMON MD N 461.9 Sinusitis Acute 08/18/2011 DIANN DAMON MD N 706.8 OTHER SPECIFIED DISEASES OF SEBACEOUS GLANDS 08/18/2011 DIANN DAMON MD N 720.2 SACROILIITIS NOT ELSEWHERE CLASSIFIED 08/18/2011 DIANN DAMON MD N 781.0 ABNORMAL INVOLUNTARY MOVEMENTS 08/18/2011 DIANN DAMON MD N 788.1 Dysuria 08/18/2011 ANGELA DELATORRE, COLEMAN E 461.9 Sinusitis Acute 08/18/2011 ANGELA DELATORRE, COLEMAN E 706.8 OTHER SPECIFIED DISEASES OF SEBACEOUS GLANDS 08/18/2011 ANGELA DELATORRE, COLEMAN E 720.2 SACROILIITIS NOT ELSEWHERE CLASSIFIED 08/18/2011 REGINA MILLER RNISTA E 781.0 ABNORMAL INVOLUNTARY MOVEMENTS 08/18/2011 REGINA MILLER RNISTA E 788.1 Dysuria 08/18/2011 DIANN DAMON MD N 461.9 Sinusitis Acute 08/18/2011 DIANN DAMON MD N 706.8 OTHER SPECIFIED DISEASES OF SEBACEOUS GLANDS 08/18/2011 DIANN DAMON MD N 720.2 SACROILIITIS NOT ELSEWHERE CLASSIFIED 08/18/2011 DIANN DAMON MD N 781.0 ABNORMAL INVOLUNTARY MOVEMENTS 08/18/2011 DIANN DAMON MD N 788.1 Dysuria 08/18/2011 ANGELA DELATORRE, COLEMAN E 461.9 Sinusitis Acute 08/18/2011 ANGELA DELATORRE, COLEMAN E 706.8 OTHER SPECIFIED DISEASES OF SEBACEOUS GLANDS 08/18/2011 ANGELA RN, COLEMAN E 720.2 SACROILIITIS NOT ELSEWHERE CLASSIFIED 08/18/2011 ANGELA DELATORRE, COLEMAN E 781.0 ABNORMAL INVOLUNTARY MOVEMENTS 08/18/2011 ANGELA DELATORRE, COLEMAN E 788.1 Dysuria 08/18/2011 DIANN DAMON MD N 461.9 Sinusitis Acute 08/18/2011 DIANN DAMON MD N 706.8 OTHER SPECIFIED DISEASES OF SEBACEOUS GLANDS 08/18/2011 DIANN DAMON MD N 720.2 SACROILIITIS NOT ELSEWHERE CLASSIFIED 08/18/2011 DIANN DAMON MD N 781.0 ABNORMAL INVOLUNTARY MOVEMENTS 08/18/2011 DIANN DAMON MD N 788.1 Dysuria 08/18/2011 DIANN DAMON MD N 461.9 Sinusitis Acute 08/18/2011 DIANN DAMON MD N 706.8 OTHER SPECIFIED DISEASES OF SEBACEOUS GLANDS 08/18/2011 DIANN DAMON MD N 720.2 SACROILIITIS NOT ELSEWHERE CLASSIFIED 08/18/2011 DIANN DAMON MD N 781.0 ABNORMAL INVOLUNTARY MOVEMENTS 08/18/2011 DIANN DAMON MD N 788.1 Dysuria 09/07/2011 CATRINA WANG DO 300.00 ANXIETY STATE UNSPECIFIED 09/07/2011 CATRINA WANG DO 380.10 Infective Otitis Externa Unspecified 09/07/2011 CATRINA WANG DO 527.7 DISTURBANCE OF SALIVARY SECRETION 09/07/2011 CATRINA WANG DO 625.9 UNSPECIFIED SYMPTOM ASSOCIATED WITH FEMALE GENITAL ORGANS 09/07/2011 CATRINA WANG DO 783.1 ABNORMAL WEIGHT GAIN 09/07/2011 WANG DO, CATRINA K V58.69 LONG-TERM (CURRENT) USE OF OTHER MEDICATIONS 09/07/2011 300.00 ANXIETY STATE UNSPECIFIED 09/07/2011 380.10 Infective Otitis Externa Unspecified 09/07/2011 527.7 DISTURBANCE OF SALIVARY SECRETION 09/07/2011 625.9 UNSPECIFIED SYMPTOM ASSOCIATED WITH FEMALE GENITAL ORGANS 09/07/2011 783.1 ABNORMAL WEIGHT GAIN 09/07/2011 V58.69 LONG-TERM (CURRENT) USE OF OTHER MEDICATIONS 09/07/2011 PRECIOUS HUTCHISON MD 300.00 ANXIETY STATE UNSPECIFIED 09/07/2011 PRECIOUS HUTCHISON MD 380.10 Infective Otitis Externa Unspecified 09/07/2011 PRECIOUS HUTCHISON MD 527.7 DISTURBANCE OF SALIVARY SECRETION 09/07/2011 PRECIOUS HUTCHISON MD 625.9 UNSPECIFIED SYMPTOM ASSOCIATED WITH FEMALE GENITAL ORGANS 09/07/2011 PRECIOUS HUTCHISON MD 783.1 ABNORMAL WEIGHT GAIN 09/07/2011 PRECIOUS HUTCHISON MD V58.69 LONG-TERM (CURRENT) USE OF OTHER MEDICATIONS 09/07/2011 300.00 ANXIETY STATE UNSPECIFIED 09/07/2011 380.10 Infective Otitis Externa Unspecified 09/07/2011 527.7 DISTURBANCE OF SALIVARY SECRETION 09/07/2011 625.9 UNSPECIFIED SYMPTOM ASSOCIATED WITH FEMALE GENITAL ORGANS 09/07/2011 783.1 ABNORMAL WEIGHT GAIN 09/07/2011 V58.69 LONG-TERM (CURRENT) USE OF OTHER MEDICATIONS 09/07/2011 WANG DO, CATRINA K 300.00 ANXIETY STATE UNSPECIFIED 09/07/2011 WANG DO, CATRINA K 380.10 Infective Otitis Externa Unspecified 09/07/2011 WANG DO, CATRINA K 527.7 DISTURBANCE OF SALIVARY SECRETION 09/07/2011 WANG DO, CATRINA K 625.9 UNSPECIFIED SYMPTOM ASSOCIATED WITH FEMALE GENITAL ORGANS 09/07/2011 WANG DO, CATRINA K 783.1 ABNORMAL WEIGHT GAIN 09/07/2011 WANG DO, CATRINA K V58.69 LONG-TERM (CURRENT) USE OF OTHER MEDICATIONS 09/07/2011 WANG DO, CATRINA K 300.00 ANXIETY STATE UNSPECIFIED 09/07/2011 WANG DO, CATRINA K 380.10 Infective Otitis Externa Unspecified 09/07/2011 WANG DO, CATRINA K 527.7 DISTURBANCE OF SALIVARY SECRETION 09/07/2011 WANG DO, CATRINA K 625.9 UNSPECIFIED SYMPTOM ASSOCIATED WITH FEMALE GENITAL ORGANS 09/07/2011 WANG DO, CATRINA K 783.1 ABNORMAL WEIGHT GAIN 09/07/2011 WANG DO, CATRINA K V58.69 LONG-TERM (CURRENT) USE OF OTHER MEDICATIONS 09/07/2011 300.00 ANXIETY STATE UNSPECIFIED 09/07/2011 380.10 Infective Otitis Externa Unspecified 09/07/2011 527.7 DISTURBANCE OF SALIVARY SECRETION 09/07/2011 625.9 UNSPECIFIED SYMPTOM ASSOCIATED WITH FEMALE GENITAL ORGANS 09/07/2011 783.1 ABNORMAL WEIGHT GAIN 09/07/2011 V58.69 LONG-TERM (CURRENT) USE OF OTHER MEDICATIONS 09/07/2011 WANG DO, CATRINA K 300.00 ANXIETY STATE UNSPECIFIED 09/07/2011 WANG DO, CATRINA K 380.10 Infective Otitis Externa Unspecified 09/07/2011 WANG DO, CATRINA K 527.7 DISTURBANCE OF SALIVARY SECRETION 09/07/2011 WANG DO, CATRINA K 625.9 UNSPECIFIED SYMPTOM ASSOCIATED WITH FEMALE GENITAL ORGANS 09/07/2011 WANG DO, CATRINA K 783.1 ABNORMAL WEIGHT GAIN 09/07/2011 WANG DO, CATRINA K V58.69 LONG-TERM (CURRENT) USE OF OTHER MEDICATIONS 09/07/2011 WANG DO, CATRINA K 300.00 ANXIETY STATE UNSPECIFIED 09/07/2011 WANG DO, CATRINA K 380.10 Infective Otitis Externa Unspecified 09/07/2011 WANG DO, CATRINA K 527.7 DISTURBANCE OF SALIVARY SECRETION 09/07/2011 WANG DO, CATRINA K 625.9 UNSPECIFIED SYMPTOM ASSOCIATED WITH FEMALE GENITAL ORGANS 09/07/2011 WANG DO, CATRINA K 783.1 ABNORMAL WEIGHT GAIN 09/07/2011 WANG DO, CATRINA K V58.69 LONG-TERM (CURRENT) USE OF OTHER MEDICATIONS 09/07/2011 WANG DO, CATRINA K 300.00 ANXIETY STATE UNSPECIFIED 09/07/2011 WANG DO, CATRINA K 380.10 Infective Otitis Externa Unspecified 09/07/2011 WANG DO, CATRINA K 527.7 DISTURBANCE OF SALIVARY SECRETION 09/07/2011 WANG DO, CATRINA K 625.9 UNSPECIFIED SYMPTOM ASSOCIATED WITH FEMALE GENITAL ORGANS 09/07/2011 WANG DO, CATRINA K 783.1 ABNORMAL WEIGHT GAIN 09/07/2011 WANG DO, CATRINA K V58.69 LONG-TERM (CURRENT) USE OF OTHER MEDICATIONS 09/07/2011 WANG DO, CATRINA K 300.00 ANXIETY STATE UNSPECIFIED 09/07/2011 WANG DO, CATRINA K 380.10 Infective Otitis Externa Unspecified 09/07/2011 WANG DO, CATRINA K 527.7 DISTURBANCE OF SALIVARY SECRETION 09/07/2011 WANG DO, CATRINA K 625.9 UNSPECIFIED SYMPTOM ASSOCIATED WITH FEMALE GENITAL ORGANS 09/07/2011 WANG DO, CATRINA K 783.1 ABNORMAL WEIGHT GAIN 09/07/2011 WANG DO, CATRINA K V58.69 LONG-TERM (CURRENT) USE OF OTHER MEDICATIONS 09/07/2011 WANG DO, CATRINA K 300.00 ANXIETY STATE UNSPECIFIED 09/07/2011 WANG DO, CATRINA K 380.10 Infective Otitis Externa Unspecified 09/07/2011 WANG DO, CATRINA K 527.7 DISTURBANCE OF SALIVARY SECRETION 09/07/2011 WANG DO, CATRINA K 625.9 UNSPECIFIED SYMPTOM ASSOCIATED WITH FEMALE GENITAL ORGANS 09/07/2011 WANG DO, CATRINA K 783.1 ABNORMAL WEIGHT GAIN 09/07/2011 WANG DO, CATRINA K V58.69 LONG-TERM (CURRENT) USE OF OTHER MEDICATIONS 09/07/2011 WANG DO, CATRINA K 300.00 ANXIETY STATE UNSPECIFIED 09/07/2011 WANG DO, CATRINA K 380.10 Infective Otitis Externa Unspecified 09/07/2011 WANG DO, CATRINA K 527.7 DISTURBANCE OF SALIVARY SECRETION 09/07/2011 WANG DO, CATRINA K 625.9 UNSPECIFIED SYMPTOM ASSOCIATED WITH FEMALE GENITAL ORGANS 09/07/2011 WANG DO, CATRINA K 783.1 ABNORMAL WEIGHT GAIN 09/07/2011 WANG DO, CATRINA K V58.69 LONG-TERM (CURRENT) USE OF OTHER MEDICATIONS 09/07/2011 WANG DO, CATRINA K 300.00 ANXIETY STATE UNSPECIFIED 09/07/2011 WANG DO, CATRINA K 380.10 Infective Otitis Externa Unspecified 09/07/2011 WANG DO, CATRINA K 527.7 DISTURBANCE OF SALIVARY SECRETION 09/07/2011 WANG DO, CATRINA K 625.9 UNSPECIFIED SYMPTOM ASSOCIATED WITH FEMALE GENITAL ORGANS 09/07/2011 WANG DO, CATRINA K 783.1 ABNORMAL WEIGHT GAIN 09/07/2011 WANG DO, CATRINA K V58.69 LONG-TERM (CURRENT) USE OF OTHER MEDICATIONS 09/07/2011 WANG DO, CATRINA K 300.00 ANXIETY STATE UNSPECIFIED 09/07/2011 WANG DO, CATRINA K 380.10 Infective Otitis Externa Unspecified 09/07/2011 WANG DO, CATRINA K 527.7 DISTURBANCE OF SALIVARY SECRETION 09/07/2011 WANG DO, CATRINA K 625.9 UNSPECIFIED SYMPTOM ASSOCIATED WITH FEMALE GENITAL ORGANS 09/07/2011 WANG DO, CATRINA K 783.1 ABNORMAL WEIGHT GAIN 09/07/2011 WANG DO, CATRINA K V58.69 LONG-TERM (CURRENT) USE OF OTHER MEDICATIONS 09/07/2011 WANG DO, CATRINA K 300.00 ANXIETY STATE UNSPECIFIED 09/07/2011 WANG DO, CATRINA K 380.10 Infective Otitis Externa Unspecified 09/07/2011 WANG DO, CATRINA K 527.7 DISTURBANCE OF SALIVARY SECRETION 09/07/2011 WANG DO, CATRINA K 625.9 UNSPECIFIED SYMPTOM ASSOCIATED WITH FEMALE GENITAL ORGANS 09/07/2011 WANG DO, CATRINA K 783.1 ABNORMAL WEIGHT GAIN 09/07/2011 WANG DO, CATRINA K V58.69 LONG-TERM (CURRENT) USE OF OTHER MEDICATIONS 09/07/2011 WANG DO, CATRINA K 300.00 ANXIETY STATE UNSPECIFIED 09/07/2011 WANG DO, CATRINA K 380.10 Infective Otitis Externa Unspecified 09/07/2011 WANG DO, CATRINA K 527.7 DISTURBANCE OF SALIVARY SECRETION 09/07/2011 WANG DO, CATRINA K 625.9 UNSPECIFIED SYMPTOM ASSOCIATED WITH FEMALE GENITAL ORGANS 09/07/2011 WANG DO, CATRINA K 783.1 ABNORMAL WEIGHT GAIN 09/07/2011 WANG DO, CATRINA K V58.69 LONG-TERM (CURRENT) USE OF OTHER MEDICATIONS 09/07/2011 WANG DO, CATRINA K 300.00 ANXIETY STATE UNSPECIFIED 09/07/2011 WANG DO, CATRINA K 380.10 Infective Otitis Externa Unspecified 09/07/2011 WANG DO, CATRINA K 527.7 DISTURBANCE OF SALIVARY SECRETION 09/07/2011 WANG DO, CATRINA K 625.9 UNSPECIFIED SYMPTOM ASSOCIATED WITH FEMALE GENITAL ORGANS 09/07/2011 WANG DO, CATRINA K 783.1 ABNORMAL WEIGHT GAIN 09/07/2011 WANG DO, CATRINA K V58.69 LONG-TERM (CURRENT) USE OF OTHER MEDICATIONS 09/07/2011 WANG DO, CATRINA K 300.00 ANXIETY STATE UNSPECIFIED 09/07/2011 WANG DO, CATRINA K 380.10 Infective Otitis Externa Unspecified 09/07/2011 WANG DO, CATRINA K 527.7 DISTURBANCE OF SALIVARY SECRETION 09/07/2011 WANG DO, CATRINA K 625.9 UNSPECIFIED SYMPTOM ASSOCIATED WITH FEMALE GENITAL ORGANS 09/07/2011 WANG DO, CATRINA K 783.1 ABNORMAL WEIGHT GAIN 09/07/2011 WANG DO, CATRINA K V58.69 LONG-TERM (CURRENT) USE OF OTHER MEDICATIONS 09/07/2011 WANG DO, CATRINA K 300.00 ANXIETY STATE UNSPECIFIED 09/07/2011 WANG DO, CATRINA K 380.10 Infective Otitis Externa Unspecified 09/07/2011 WANG DO, CATRINA K 527.7 DISTURBANCE OF SALIVARY SECRETION 09/07/2011 WANG DO, CATRINA K 625.9 UNSPECIFIED SYMPTOM ASSOCIATED WITH FEMALE GENITAL ORGANS 09/07/2011 WANG DO, CATRINA K 783.1 ABNORMAL WEIGHT GAIN 09/07/2011 WANG DO, CATRINA K V58.69 LONG-TERM (CURRENT) USE OF OTHER MEDICATIONS 09/07/2011 WANG DO, CATRINA K 300.00 ANXIETY STATE UNSPECIFIED 09/07/2011 WANG DO, CATRINA K 380.10 Infective Otitis Externa Unspecified 09/07/2011 WANG DO, CATRINA K 527.7 DISTURBANCE OF SALIVARY SECRETION 09/07/2011 WANG DO, CATRINA K 625.9 UNSPECIFIED SYMPTOM ASSOCIATED WITH FEMALE GENITAL ORGANS 09/07/2011 WANG DO, CATRINA K 783.1 ABNORMAL WEIGHT GAIN 09/07/2011 WANG DO, CATRINA K V58.69 LONG-TERM (CURRENT) USE OF OTHER MEDICATIONS 09/07/2011 WANG DO, CATRINA K 300.00 ANXIETY STATE UNSPECIFIED 09/07/2011 WANG DO, CATRINA K 380.10 Infective Otitis Externa Unspecified 09/07/2011 WANG DO, CATRINA K 527.7 DISTURBANCE OF SALIVARY SECRETION 09/07/2011 WANG DO, CATRINA K 625.9 UNSPECIFIED SYMPTOM ASSOCIATED WITH FEMALE GENITAL ORGANS 09/07/2011 WANG DO, CATRINA K 783.1 ABNORMAL WEIGHT GAIN 09/07/2011 WANG DO, CATRINA K V58.69 LONG-TERM (CURRENT) USE OF OTHER MEDICATIONS 09/07/2011 COLEMAN MILLER RN 300.00 ANXIETY STATE UNSPECIFIED 09/07/2011 COLEMAN MILLER RN 380.10 Infective Otitis Externa Unspecified 09/07/2011 COLEMAN MILLER RN E 527.7 DISTURBANCE OF SALIVARY SECRETION 09/07/2011 COLEMAN MILLER RN E 625.9 UNSPECIFIED SYMPTOM ASSOCIATED WITH FEMALE GENITAL ORGANS 09/07/2011 COLEMAN MILLER RN E 783.1 ABNORMAL WEIGHT GAIN 09/07/2011 COLEMAN MILLER RN E V58.69 LONG-TERM (CURRENT) USE OF OTHER MEDICATIONS 09/07/2011 COLEMAN MILLER RN E 300.00 ANXIETY STATE UNSPECIFIED 09/07/2011 COLEMAN MILLER RN E 380.10 Infective Otitis Externa Unspecified 09/07/2011 COLEMAN MILLER RN E 527.7 DISTURBANCE OF SALIVARY SECRETION 09/07/2011 COLEMAN MILLER RN E 625.9 UNSPECIFIED SYMPTOM ASSOCIATED WITH FEMALE GENITAL ORGANS 09/07/2011 COLEMAN MILLER RN E 783.1 ABNORMAL WEIGHT GAIN 09/07/2011 COLEMAN MILLER RN E V58.69 LONG-TERM (CURRENT) USE OF OTHER MEDICATIONS 09/07/2011 COLEMAN MILLER RN E 300.00 ANXIETY STATE UNSPECIFIED 09/07/2011 COLEMAN MILLER RN E 380.10 Infective Otitis Externa Unspecified 09/07/2011 COLEMAN MILLER RN E 527.7 DISTURBANCE OF SALIVARY SECRETION 09/07/2011 COLEMAN MILLER RN E 625.9 UNSPECIFIED SYMPTOM ASSOCIATED WITH FEMALE GENITAL ORGANS 09/07/2011 COLEMAN MILLER RN E 783.1 ABNORMAL WEIGHT GAIN 09/07/2011 COLEMAN MILLER RN E V58.69 LONG-TERM (CURRENT) USE OF OTHER MEDICATIONS 09/07/2011 DIANN DAMON MD N 300.00 ANXIETY STATE UNSPECIFIED 09/07/2011 DIANN DAMON MD N 380.10 Infective Otitis Externa Unspecified 09/07/2011 DIANN DAMON MD N 527.7 DISTURBANCE OF SALIVARY SECRETION 09/07/2011 DIANN DAMON MD N 625.9 UNSPECIFIED SYMPTOM ASSOCIATED WITH FEMALE GENITAL ORGANS 09/07/2011 DIANN DAMON MD N 783.1 ABNORMAL WEIGHT GAIN 09/07/2011 DIANN DAMON MD V58.69 LONG-TERM (CURRENT) USE OF OTHER MEDICATIONS 09/07/2011 COLEMAN MILLER RN E 300.00 ANXIETY STATE UNSPECIFIED 09/07/2011 COLEMAN MILLER RN E 380.10 Infective Otitis Externa Unspecified 09/07/2011 COLEMAN MILLER RN E 527.7 DISTURBANCE OF SALIVARY SECRETION 09/07/2011 COLEMAN MILLER RN E 625.9 UNSPECIFIED SYMPTOM ASSOCIATED WITH FEMALE GENITAL ORGANS 09/07/2011 COLEMAN MILLER RN E 783.1 ABNORMAL WEIGHT GAIN 09/07/2011 COLEMAN MILLER RN E V58.69 LONG-TERM (CURRENT) USE OF OTHER MEDICATIONS 09/07/2011 DIANN DAMON MD N 300.00 ANXIETY STATE UNSPECIFIED 09/07/2011 DIANN DAMON MD N 380.10 Infective Otitis Externa Unspecified 09/07/2011 DIANN DAMON MD N 527.7 DISTURBANCE OF SALIVARY SECRETION 09/07/2011 DIANN DAMON MD N 625.9 UNSPECIFIED SYMPTOM ASSOCIATED WITH FEMALE GENITAL ORGANS 09/07/2011 DIANN DAMON MD N 783.1 ABNORMAL WEIGHT GAIN 09/07/2011 DIANN DAMON MD V58.69 LONG-TERM (CURRENT) USE OF OTHER MEDICATIONS 09/07/2011 COLEMAN MILLER RN E 300.00 ANXIETY STATE UNSPECIFIED 09/07/2011 COLEMAN MILLER RN E 380.10 Infective Otitis Externa Unspecified 09/07/2011 COLEMAN MILLER RN E 527.7 DISTURBANCE OF SALIVARY SECRETION 09/07/2011 COLEMAN MILLER RN E 625.9 UNSPECIFIED SYMPTOM ASSOCIATED WITH FEMALE GENITAL ORGANS 09/07/2011 COLEMAN MILLER RN E 783.1 ABNORMAL WEIGHT GAIN 09/07/2011 COLEMAN MILLER RN E V58.69 LONG-TERM (CURRENT) USE OF OTHER MEDICATIONS 09/07/2011 DIANN DAMON MD N 300.00 ANXIETY STATE UNSPECIFIED 09/07/2011 DIANN DAMON MD N 380.10 Infective Otitis Externa Unspecified 09/07/2011 DIANN DAMON MD N 527.7 DISTURBANCE OF SALIVARY SECRETION 09/07/2011 DIANN DAMON MD N 625.9 UNSPECIFIED SYMPTOM ASSOCIATED WITH FEMALE GENITAL ORGANS 09/07/2011 DIANN DAMON MD N 783.1 ABNORMAL WEIGHT GAIN 09/07/2011 DIANN DAMON MD V58.69 LONG-TERM (CURRENT) USE OF OTHER MEDICATIONS 09/07/2011 DIANN DAMON MD N 300.00 ANXIETY STATE UNSPECIFIED 09/07/2011 DIANN DAMON MD N 380.10 Infective Otitis Externa Unspecified 09/07/2011 DIANN DAMON MD N 527.7 DISTURBANCE OF SALIVARY SECRETION 09/07/2011 DIANN DAMON MD N 625.9 UNSPECIFIED SYMPTOM ASSOCIATED WITH FEMALE GENITAL ORGANS 09/07/2011 DIANN DAMON MD N 783.1 ABNORMAL WEIGHT GAIN 09/07/2011 DIANN DAMON MD N V58.69 LONG-TERM (CURRENT) USE OF OTHER MEDICATIONS 09/14/2011 WANG DO CATRINA K 724.2 LUMBAGO 09/14/2011 FELIPE DO, CATRINA K 931 Foreign Body In Ear 09/14/2011 724.2 LUMBAGO 09/14/2011 931 Foreign Body In Ear 09/14/2011 FOSTER GONCALVES, PRECIOUS Singh 724.2 LUMBAGO 09/14/2011 FOSTER GONCALVES, PRECIOUS Singh 931 Foreign Body In Ear 09/14/2011 724.2 LUMBAGO 09/14/2011 931 Foreign Body In Ear 09/14/2011 WANG DO, CATRINA K 724.2 LUMBAGO 09/14/2011 WANG DO, CATRINA K 931 Foreign Body In Ear 09/14/2011 WANG DO, CATRINA K 724.2 LUMBAGO 09/14/2011 WANG DO, CATRINA K 931 Foreign Body In Ear 09/14/2011 724.2 LUMBAGO 09/14/2011 931 Foreign Body In Ear 09/14/2011 WANG DO, CATRINA K 724.2 LUMBAGO 09/14/2011 WANG DO, CATRINA K 931 Foreign Body In Ear 09/14/2011 WANG DO, CATRINA K 724.2 LUMBAGO 09/14/2011 WANG DO, CATRINA K 931 Foreign Body In Ear 09/14/2011 WANG DO, CATRINA K 724.2 LUMBAGO 09/14/2011 WANG DO, CATRINA K 931 Foreign Body In Ear 09/14/2011 WANG DO, CATRINA K 724.2 LUMBAGO 09/14/2011 WANG DO, CATRINA K 931 Foreign Body In Ear 09/14/2011 WANG DO, CATRINA K 724.2 LUMBAGO 09/14/2011 WANG DO, CATRINA K 931 Foreign Body In Ear 09/14/2011 WANG DO, CATRINA K 724.2 LUMBAGO 09/14/2011 WANG DO, CATRINA K 931 Foreign Body In Ear 09/14/2011 WANG DO, CATRINA K 724.2 LUMBAGO 09/14/2011 WANG DO, CATRINA K 931 Foreign Body In Ear 09/14/2011 WANG DO, CATRINA K 724.2 LUMBAGO 09/14/2011 WANG DO, CATRINA K 931 Foreign Body In Ear 09/14/2011 WANG DO, CATRINA K 724.2 LUMBAGO 09/14/2011 WANG DO, CATRINA K 931 Foreign Body In Ear 09/14/2011 WANG DO, CATRINA K 724.2 LUMBAGO 09/14/2011 WANG DO, CATRINA K 931 Foreign Body In Ear 09/14/2011 WANG DO, CATRINA K 724.2 LUMBAGO 09/14/2011 WANG DO, CATRINA K 931 Foreign Body In Ear 09/14/2011 WANG DO, CATRINA K 724.2 LUMBAGO 09/14/2011 WANG DO, CATRINA K 931 Foreign Body In Ear 09/14/2011 WANG DO, CATRINA K 724.2 LUMBAGO 09/14/2011 WANG DO, CATRINA K 931 Foreign Body In Ear 09/14/2011 WANG DO, CATRINA K 724.2 LUMBAGO 09/14/2011 WANG DO, CATRINA K 931 Foreign Body In Ear 09/14/2011 WANG DO, CATRINA K 724.2 LUMBAGO 09/14/2011 WANG DO, CATRINA K 931 Foreign Body In Ear 09/14/2011 ANGELA DELATORRE, COLEMAN E 724.2 LUMBAGO 09/14/2011 COLEMAN MILLER RN E 931 Foreign Body In Ear 09/14/2011 COLEMAN MILLER RN E 724.2 LUMBAGO 09/14/2011 COLEMAN MILLER RN E 931 Foreign Body In Ear 09/14/2011 COLEMAN MILLER RN E 724.2 LUMBAGO 09/14/2011 COLEMAN MILLER RN E 931 Foreign Body In Ear 09/14/2011 DIANN DAMON MD 724.2 LUMBAGO 09/14/2011 DIANN DAMON MD 931 Foreign Body In Ear 09/14/2011 COLEMAN MILLER RN E 724.2 LUMBAGO 09/14/2011 ANGELA DELATORRE COLEMAN E 931 Foreign Body In Ear 09/14/2011 NELSON GONCALVES, DIANN N 724.2 LUMBAGO 09/14/2011 DIANN DAMON MD N 931 Foreign Body In Ear 09/14/2011 ANGELA DELATORRE, COLEMAN E 724.2 LUMBAGO 09/14/2011 ANGELA DELATORRE, COLEMAN E 931 Foreign Body In Ear 09/14/2011 DIANN DAMON MD N 724.2 LUMBAGO 09/14/2011 DIANN DAMON MD N 931 Foreign Body In Ear 09/14/2011 DIANN DAMON MD N 724.2 LUMBAGO 09/14/2011 DIANN DAMON MD N 931 Foreign Body In Ear 10/22/2011 CATRINA WANG DO 276.51 Dehydration 10/22/2011 CATRINA WANG DO 799.02 Hypoxemia 10/22/2011 CATRINA WANG DO V65.49 OTHER SPECIFIED COUNSELING 10/22/2011 276.51 Dehydration 10/22/2011 799.02 Hypoxemia 10/22/2011 V65.49 OTHER SPECIFIED COUNSELING 10/22/2011 FOSTER GONCALVES, PRECIOUS Singh 276.51 Dehydration 10/22/2011 FOSTER GONCALVES, PRECIOUS Singh 799.02 Hypoxemia 10/22/2011 FOSTER GONCALVES, PRECIOUS Singh V65.49 OTHER SPECIFIED COUNSELING 10/22/2011 276.51 Dehydration 10/22/2011 799.02 Hypoxemia 10/22/2011 V65.49 OTHER SPECIFIED COUNSELING 10/22/2011 CATRINA WANG DO 276.51 Dehydration 10/22/2011 CATRINA WANG DO 799.02 Hypoxemia 10/22/2011 CATRINA WANG DO V65.49 OTHER SPECIFIED COUNSELING 10/22/2011 CATRINA WANG DO 276.51 Dehydration 10/22/2011 CATRINA WANG DO 799.02 Hypoxemia 10/22/2011 CATRINA WANG DO V65.49 OTHER SPECIFIED COUNSELING 10/22/2011 276.51 Dehydration 10/22/2011 799.02 Hypoxemia 10/22/2011 V65.49 Patient Education - Medication 10/22/2011 CATRINA WANG DO 276.51 Dehydration 10/22/2011 CATRINA WANG DO 799.02 Hypoxemia 10/22/2011 CATRINA WANG DO V65.49 Patient Education - Medication 10/22/2011 WANG DO, CATRINA K 276.51 Dehydration 10/22/2011 WANG DO, CATRINA K 799.02 Hypoxemia 10/22/2011 WANG DO, CATRINA K V65.49 PATIENT EDUCATION - MEDICATION 10/22/2011 WANG DO, CATRINA K 276.51 Dehydration 10/22/2011 WANG DO, CATRINA K 799.02 Hypoxemia 10/22/2011 WANG DO, CATRINA K V65.49 PATIENT EDUCATION - MEDICATION 10/22/2011 WANG DO, CATRINA K 276.51 Dehydration 10/22/2011 WANG DO, CATRINA K 799.02 Hypoxemia 10/22/2011 WANG DO, CATRINA K V65.49 PATIENT EDUCATION - MEDICATION 10/22/2011 WANG DO, CATRINA K 276.51 Dehydration 10/22/2011 WANG DO, CATRINA K 799.02 Hypoxemia 10/22/2011 WANG DO, CATRINA K V65.49 PATIENT EDUCATION - MEDICATION 10/22/2011 WANG DO, CATRINA K 276.51 Dehydration 10/22/2011 WANG DO, CATRINA K 799.02 Hypoxemia 10/22/2011 WANG DO, CATRINA K V65.49 PATIENT EDUCATION - MEDICATION 10/22/2011 WANG DO, CATRINA K 276.51 Dehydration 10/22/2011 WANG DO, CATRINA K 799.02 Hypoxemia 10/22/2011 WANG DO, CATRINA K V65.49 PATIENT EDUCATION - MEDICATION 10/22/2011 WANG DO, CATRINA K 276.51 Dehydration 10/22/2011 WANG DO, CATRINA K 799.02 Hypoxemia 10/22/2011 WANG DO, CATRINA K V65.49 PATIENT EDUCATION - MEDICATION 10/22/2011 WANG DO, CATRINA K 276.51 Dehydration 10/22/2011 WANG DO, CATRINA K 799.02 Hypoxemia 10/22/2011 WANG DO, CATRINA K V65.49 PATIENT EDUCATION - MEDICATION 10/22/2011 WANG DO, CATRINA K 276.51 Dehydration 10/22/2011 WANG DO, CATRINA K 799.02 Hypoxemia 10/22/2011 WANG DO, CATRINA K V65.49 PATIENT EDUCATION - MEDICATION 10/22/2011 WANG DO, CATRINA K 276.51 Dehydration 10/22/2011 WANG DO, CATRINA K 799.02 Hypoxemia 10/22/2011 WANG DO, CATRINA K V65.49 PATIENT EDUCATION - MEDICATION 10/22/2011 WANG SAROJ BRAVOA K 276.51 Dehydration 10/22/2011 WANG SAROJ BRAVOA K 799.02 Hypoxemia 10/22/2011 WANG SAROJ BRAVOA K V65.49 PATIENT EDUCATION - MEDICATION 10/22/2011 WANG SAROJ BRAVOA K 276.51 Dehydration 10/22/2011 WANG DOSAROJA K 799.02 Hypoxemia 10/22/2011 WANG SAROJ BRAVOA K V65.49 PATIENT EDUCATION - MEDICATION 10/22/2011 WANG SAROJ BRAVOA K 276.51 Dehydration 10/22/2011 WANG SAROJ BRAVOA K 799.02 Hypoxemia 10/22/2011 WANG SAROJ BRAVOA K V65.49 PATIENT EDUCATION - MEDICATION 10/22/2011 WANG SAROJ BRAVOA K 276.51 Dehydration 10/22/2011 WANG SAROJ BRAVOA K 799.02 Hypoxemia 10/22/2011 WANG SAROJ BRAVOA K V65.49 PATIENT EDUCATION - MEDICATION 10/22/2011 COLEMAN MILLER RN 276.51 Dehydration 10/22/2011 COLEMAN MILLER RN 799.02 Hypoxemia 10/22/2011 COLEMAN MILLER RN V65.49 PATIENT EDUCATION - MEDICATION 10/22/2011 COLEMAN MILLER RN 276.51 Dehydration 10/22/2011 COLEMAN MILLER RN 799.02 Hypoxemia 10/22/2011 COLEMAN MILLER RN V65.49 PATIENT EDUCATION - MEDICATION 10/22/2011 COLEMAN MILLER RN 276.51 Dehydration 10/22/2011 COLEMAN MILLER RN 799.02 Hypoxemia 10/22/2011 COLEMAN MILLER RN V65.49 PATIENT EDUCATION - MEDICATION 10/22/2011 DIANN DAMON MD 276.51 Dehydration 10/22/2011 DIANN DAMON MD 799.02 Hypoxemia 10/22/2011 DIANN DAMON MD V65.49 PATIENT EDUCATION - MEDICATION 10/22/2011 COLEMAN MILLER RN 276.51 Dehydration 10/22/2011 COLEMAN MILLER RN 799.02 Hypoxemia 10/22/2011 COLEMAN MILLER RN V65.49 PATIENT EDUCATION - MEDICATION 10/22/2011 DIANN DAMON MD 276.51 Dehydration 10/22/2011 DIANN DAMON MD 799.02 Hypoxemia 10/22/2011 DIANN DAMON MD V65.49 PATIENT EDUCATION - MEDICATION 10/22/2011 ANGELA DELATORRE, COLEMAN E 276.51 Dehydration 10/22/2011 ANGELA DELATORRE, COLEMAN E 799.02 Hypoxemia 10/22/2011 ANGELA DELATORRE, COLEMAN E V65.49 PATIENT EDUCATION - MEDICATION 10/22/2011 DIANN DAMON MD 276.51 Dehydration 10/22/2011 DIANN DAMON MD 799.02 Hypoxemia 10/22/2011 DIANN DAMON MD V65.49 PATIENT EDUCATION - MEDICATION 10/22/2011 DIANN DAMON MD 276.51 Dehydration 10/22/2011 DIANN DAMON MD 799.02 Hypoxemia 10/22/2011 DIANN DAMON MD V65.49 PATIENT EDUCATION - MEDICATION 12/17/2011 Ot 789.01 12/17/2011 Ot 789.02 01/01/2012 CATRINA WANG DO 611.79 OTHER SIGNS AND SYMPTOMS IN BREAST 01/01/2012 CATRINA WANG DO 788.1 DYSURIA 01/01/2012 CATRINA WANG DO 789.00 ABDOMINAL PAIN UNSPECIFIED SITE 01/01/2012 CATRINA WANG DO V03.82 Ppv23 (pneumovax) Dx 01/01/2012 CATRINA WANG DO V67.51 Follow-up Examination Following Completed Treatment With High-risk Medication Not Elsewhere Classified 01/01/2012 611.79 OTHER SIGNS AND SYMPTOMS IN BREAST 01/01/2012 788.1 DYSURIA 01/01/2012 789.00 ABDOMINAL PAIN UNSPECIFIED SITE 01/01/2012 V03.82 Ppv23 (pneumovax) Dx 01/01/2012 V67.51 Follow-up Examination Following Completed Treatment With High-risk Medication Not Elsewhere Classified 01/01/2012 PRECIOUS HUTCHISON MD 611.79 OTHER SIGNS AND SYMPTOMS IN BREAST 01/01/2012 PRECIOUS HUTCHISON MD 788.1 DYSURIA 01/01/2012 PRECIOUS HUTCHISON MD 789.00 ABDOMINAL PAIN UNSPECIFIED SITE 01/01/2012 PRECIOUS HUTCHISON MD V03.82 Ppv23 (pneumovax) Dx 01/01/2012 PRECIOUS HUTCHISON MD V67.51 Follow-up Examination Following Completed Treatment With High-risk Medication Not Elsewhere Classified 01/01/2012 611.79 OTHER SIGNS AND SYMPTOMS IN BREAST 01/01/2012 788.1 DYSURIA 01/01/2012 789.00 ABDOMINAL PAIN UNSPECIFIED SITE 01/01/2012 V03.82 Ppv23 (pneumovax) Dx 01/01/2012 V67.51 Follow-up Examination Following Completed Treatment With High-risk Medication Not Elsewhere Classified 01/01/2012 WANG DO CATRINA K 611.79 OTHER SIGNS AND SYMPTOMS IN BREAST 01/01/2012 WANG DO, CATRINA K 788.1 DYSURIA 01/01/2012 WANG DO, CATRINA K 789.00 ABDOMINAL PAIN UNSPECIFIED SITE 01/01/2012 WANG DO, CATRINA K V03.82 Ppv23 (pneumovax) Dx 01/01/2012 WANG DO CATRINA K V67.51 Follow-up Examination Following Completed Treatment With High-risk Medication Not Elsewhere Classified 01/01/2012 FELIPE BRAVO CATRINA K 611.79 OTHER SIGNS AND SYMPTOMS IN BREAST 01/01/2012 WANG DO CATRINA K 788.1 Dysuria 01/01/2012 WANG DO, CATRINA K 789.00 ABDOMINAL PAIN UNSPECIFIED SITE 01/01/2012 WANG DO, CATRINA K V03.82 Ppv23 (pneumovax) Dx 01/01/2012 WANG DO CATRINA K V67.51 Follow-up Examination Following Completed Treatment With High-risk Medication Not Elsewhere Classified 01/01/2012 611.79 OTHER SIGNS AND SYMPTOMS IN BREAST 01/01/2012 788.1 Dysuria 01/01/2012 789.00 ABDOMINAL PAIN UNSPECIFIED SITE 01/01/2012 V03.82 Ppv23 (pneumovax) Dx 01/01/2012 V67.51 Follow-up Examination Following Completed Treatment With High-risk Medication Not Elsewhere Classified 01/01/2012 WANG DO CATRINA K 611.79 OTHER SIGNS AND SYMPTOMS IN BREAST 01/01/2012 WANG DO, CATRINA K 788.1 Dysuria 01/01/2012 WANG DO, CATRINA K 789.00 ABDOMINAL PAIN UNSPECIFIED SITE 01/01/2012 WANG DO CATRINA K V03.82 Ppv23 (pneumovax) Dx 01/01/2012 WANG DO CATRINA K V67.51 Follow-up Examination Following Completed Treatment With High-risk Medication Not Elsewhere Classified 01/01/2012 WANG DO, CATRINA K 611.79 OTHER SIGNS AND SYMPTOMS IN BREAST 01/01/2012 WANG DO, CATRINA K 788.1 Dysuria 01/01/2012 WANG DO, CATRINA K 789.00 ABDOMINAL PAIN UNSPECIFIED SITE 01/01/2012 WANG DO, CATRINA K V03.82 Ppv23 (pneumovax) Dx 01/01/2012 WANG DO, CATRINA K V67.51 Follow-up Examination Following Completed Treatment With High-risk Medication Not Elsewhere Classified 01/01/2012 WANG DO, CATRINA K 611.79 OTHER SIGNS AND SYMPTOMS IN BREAST 01/01/2012 WANG DO, CATRINA K 788.1 Dysuria 01/01/2012 WANG DO, CATRINA K 789.00 ABDOMINAL PAIN UNSPECIFIED SITE 01/01/2012 WANG DO, CATRINA K V03.82 Ppv23 (pneumovax) Dx 01/01/2012 WANG DO, CATRINA K V67.51 Follow-up Examination Following Completed Treatment With High-risk Medication Not Elsewhere Classified 01/01/2012 WANG DO, CATRINA K 611.79 OTHER SIGNS AND SYMPTOMS IN BREAST 01/01/2012 WANG DO, CATRINA K 788.1 Dysuria 01/01/2012 WANG DO, CATRINA K 789.00 ABDOMINAL PAIN UNSPECIFIED SITE 01/01/2012 WANG DO, CATRINA K V03.82 Ppv23 (pneumovax) Dx 01/01/2012 WANG DO, CATRINA K V67.51 Follow-up Examination Following Completed Treatment With High-risk Medication Not Elsewhere Classified 01/01/2012 WANG DO, CATRINA K 611.79 OTHER SIGNS AND SYMPTOMS IN BREAST 01/01/2012 WANG DO, CATRINA K 788.1 Dysuria 01/01/2012 WANG DO, CATRINA K 789.00 ABDOMINAL PAIN UNSPECIFIED SITE 01/01/2012 WANG DO, CATRINA K V03.82 Ppv23 (pneumovax) Dx 01/01/2012 WANG DO, CATRINA K V67.51 Follow-up Examination Following Completed Treatment With High-risk Medication Not Elsewhere Classified 01/01/2012 WANG DO, CATRINA K 611.79 OTHER SIGNS AND SYMPTOMS IN BREAST 01/01/2012 WANG DO, CATRINA K 788.1 Dysuria 01/01/2012 WANG DO, CATRINA K 789.00 ABDOMINAL PAIN UNSPECIFIED SITE 01/01/2012 WANG DO, CATRINA K V03.82 Ppv23 (pneumovax) Dx 01/01/2012 WANG DO, CATRINA K V67.51 Follow-up Examination Following Completed Treatment With High-risk Medication Not Elsewhere Classified 01/01/2012 WANG DO, CATRINA K 611.79 OTHER SIGNS AND SYMPTOMS IN BREAST 01/01/2012 WANG DO, CATRINA K 788.1 Dysuria 01/01/2012 WANG DO, CATRINA K 789.00 ABDOMINAL PAIN UNSPECIFIED SITE 01/01/2012 WANG DO, CATRINA K V03.82 Ppv23 (pneumovax) Dx 01/01/2012 WANG DO, CATRINA K V67.51 Follow-up Examination Following Completed Treatment With High-risk Medication Not Elsewhere Classified 01/01/2012 WANG DO, CATRINA K 611.79 OTHER SIGNS AND SYMPTOMS IN BREAST 01/01/2012 WANG DO, CATRINA K 788.1 Dysuria 01/01/2012 WANG DO, CATRINA K 789.00 ABDOMINAL PAIN UNSPECIFIED SITE 01/01/2012 WANG DO, CATRINA K V03.82 Ppv23 (pneumovax) Dx 01/01/2012 WANG DO, CATRINA K V67.51 Follow-up Examination Following Completed Treatment With High-risk Medication Not Elsewhere Classified 01/01/2012 WANG DO, CATRINA K 611.79 OTHER SIGNS AND SYMPTOMS IN BREAST 01/01/2012 WANG DO, CATRINA K 788.1 Dysuria 01/01/2012 WANG DO, CATRINA K 789.00 ABDOMINAL PAIN UNSPECIFIED SITE 01/01/2012 WANG DO, CATRINA K V03.82 Ppv23 (pneumovax) Dx 01/01/2012 WANG DO, CATRINA K V67.51 Follow-up Examination Following Completed Treatment With High-risk Medication Not Elsewhere Classified 01/01/2012 WANG DO, CATRINA K 611.79 OTHER SIGNS AND SYMPTOMS IN BREAST 01/01/2012 WANG DO, CATRINA K 788.1 Dysuria 01/01/2012 WANG DO, CATRINA K 789.00 ABDOMINAL PAIN UNSPECIFIED SITE 01/01/2012 WANG DO, CATRINA K V03.82 Ppv23 (pneumovax) Dx 01/01/2012 WANG DO, CATRINA K V67.51 Follow-up Examination Following Completed Treatment With High-risk Medication Not Elsewhere Classified 01/01/2012 WANG DO, CATRINA K 611.79 OTHER SIGNS AND SYMPTOMS IN BREAST 01/01/2012 WANG DO, CATRINA K 788.1 Dysuria 01/01/2012 WANG DO, CATRINA K 789.00 ABDOMINAL PAIN UNSPECIFIED SITE 01/01/2012 WANG DO, CATRINA K V03.82 Ppv23 (pneumovax) Dx 01/01/2012 WANG DO, CATRINA K V67.51 Follow-up Examination Following Completed Treatment With High-risk Medication Not Elsewhere Classified 01/01/2012 WANG DO, CATRINA K 611.79 OTHER SIGNS AND SYMPTOMS IN BREAST 01/01/2012 WANG DO, CATRINA K 788.1 Dysuria 01/01/2012 WANG DO, CATRINA K 789.00 ABDOMINAL PAIN UNSPECIFIED SITE 01/01/2012 WANG DO, CATRINA K V03.82 Ppv23 (pneumovax) Dx 01/01/2012 WANG DO, CATRINA K V67.51 Follow-up Examination Following Completed Treatment With High-risk Medication Not Elsewhere Classified 01/01/2012 WANG DO, CATRINA K 611.79 OTHER SIGNS AND SYMPTOMS IN BREAST 01/01/2012 WANG DO, CATRINA K 788.1 Dysuria 01/01/2012 WANG DO, CATRINA K 789.00 ABDOMINAL PAIN UNSPECIFIED SITE 01/01/2012 WANG DO, CATRINA K V03.82 Ppv23 (pneumovax) Dx 01/01/2012 WANG DO, CATRINA K V67.51 Follow-up Examination Following Completed Treatment With High-risk Medication Not Elsewhere Classified 01/01/2012 WANG DO, CATRINA K 611.79 OTHER SIGNS AND SYMPTOMS IN BREAST 01/01/2012 WANG DO, CATRINA K 788.1 Dysuria 01/01/2012 WANG DO, CATRINA K 789.00 ABDOMINAL PAIN UNSPECIFIED SITE 01/01/2012 WANG DO, CATRINA K V03.82 Ppv23 (pneumovax) Dx 01/01/2012 WANG DO, CATRINA K V67.51 Follow-up Examination Following Completed Treatment With High-risk Medication Not Elsewhere Classified 01/01/2012 WANG DO, CATRINA K 611.79 OTHER SIGNS AND SYMPTOMS IN BREAST 01/01/2012 WANG DO, CATRINA K 788.1 Dysuria 01/01/2012 WANG DO, CATRINA K 789.00 ABDOMINAL PAIN UNSPECIFIED SITE 01/01/2012 CATRINA WANG DO K V03.82 Ppv23 (pneumovax) Dx 01/01/2012 CATRINA WANG DO K V67.51 Follow-up Examination Following Completed Treatment With High-risk Medication Not Elsewhere Classified 01/01/2012 COLEMAN MILLER RN E 611.79 OTHER SIGNS AND SYMPTOMS IN BREAST 01/01/2012 COLEMAN MILLER RN E 788.1 Dysuria 01/01/2012 COLEMAN MILLER RN E 789.00 ABDOMINAL PAIN UNSPECIFIED SITE 01/01/2012 COLEMAN MILLER RN E V03.82 Ppv23 (pneumovax) Dx 01/01/2012 COLEMAN MILLER RN V67.51 Follow-up Examination Following Completed Treatment With High-risk Medication Not Elsewhere Classified 01/01/2012 COLEMAN MILLER RN E 611.79 OTHER SIGNS AND SYMPTOMS IN BREAST 01/01/2012 COLEMAN MILLER RN E 788.1 Dysuria 01/01/2012 COLEMAN MILLER RN E 789.00 ABDOMINAL PAIN UNSPECIFIED SITE 01/01/2012 COLEMAN MILLER RN E V03.82 Ppv23 (pneumovax) Dx 01/01/2012 COLEMAN MILLER RN E V67.51 Follow-up Examination Following Completed Treatment With High-risk Medication Not Elsewhere Classified 01/01/2012 COLEMAN MILLER RN E 611.79 OTHER SIGNS AND SYMPTOMS IN BREAST 01/01/2012 COLEMAN MILLER RN E 788.1 Dysuria 01/01/2012 COLEMAN MILLER RN E 789.00 ABDOMINAL PAIN UNSPECIFIED SITE 01/01/2012 COLEMAN MILLER RN E V03.82 Ppv23 (pneumovax) Dx 01/01/2012 COLEMAN MILLER RN E V67.51 Follow-up Examination Following Completed Treatment With High-risk Medication Not Elsewhere Classified 01/01/2012 DIANN DAMON MD 611.79 OTHER SIGNS AND SYMPTOMS IN BREAST 01/01/2012 DIANN DAMON MD N 788.1 Dysuria 01/01/2012 DIANN DAMON MD 789.00 ABDOMINAL PAIN UNSPECIFIED SITE 01/01/2012 DIANN DAMON MD V03.82 Ppv23 (pneumovax) Dx 01/01/2012 DIANN DAMON MD V67.51 Follow-up Examination Following Completed Treatment With High-risk Medication Not Elsewhere Classified 01/01/2012 COLEMAN MILLER RN E 611.79 OTHER SIGNS AND SYMPTOMS IN BREAST 01/01/2012 CLOEMAN MILLER RN E 788.1 Dysuria 01/01/2012 ANGELA DELATORRE, COLEMAN E 789.00 ABDOMINAL PAIN UNSPECIFIED SITE 01/01/2012 COLEMAN MILLER RN E V03.82 Ppv23 (pneumovax) Dx 01/01/2012 COLEMAN MILLER RN E V67.51 Follow-up Examination Following Completed Treatment With High-risk Medication Not Elsewhere Classified 01/01/2012 DIANN DAMON MD N 611.79 OTHER SIGNS AND SYMPTOMS IN BREAST 01/01/2012 DIANN DAMON MD N 788.1 Dysuria 01/01/2012 DIANN DAMON MD N 789.00 ABDOMINAL PAIN UNSPECIFIED SITE 01/01/2012 DIANN DAMON MD N V03.82 Ppv23 (pneumovax) Dx 01/01/2012 DIANN DAMON MD V67.51 Follow-up Examination Following Completed Treatment With High-risk Medication Not Elsewhere Classified 01/01/2012 COLEMAN MILLER RN E 611.79 OTHER SIGNS AND SYMPTOMS IN BREAST 01/01/2012 COLEMAN MILLER RN E 788.1 Dysuria 01/01/2012 COLEMAN MILLER RN E 789.00 ABDOMINAL PAIN UNSPECIFIED SITE 01/01/2012 COLEMAN MILLER RN E V03.82 Ppv23 (pneumovax) Dx 01/01/2012 COLEMAN MILLER RN E V67.51 Follow-up Examination Following Completed Treatment With High-risk Medication Not Elsewhere Classified 01/01/2012 DIANN DAMON MD N 611.79 OTHER SIGNS AND SYMPTOMS IN BREAST 01/01/2012 DIANN DAMON MD N 788.1 Dysuria 01/01/2012 DIANN DAMON MD N 789.00 ABDOMINAL PAIN UNSPECIFIED SITE 01/01/2012 DIANN DAMON MD V03.82 Ppv23 (pneumovax) Dx 01/01/2012 DIANN DAMON MD V67.51 Follow-up Examination Following Completed Treatment With High-risk Medication Not Elsewhere Classified 01/01/2012 DIANN DAMON MD N 611.79 OTHER SIGNS AND SYMPTOMS IN BREAST 01/01/2012 NELSON GONCALVES, DIANN N 788.1 Dysuria 01/01/2012 DIANN DAMON MD N 789.00 ABDOMINAL PAIN UNSPECIFIED SITE 01/01/2012 DIANN DAMON MD N V03.82 Ppv23 (pneumovax) Dx 01/01/2012 DIANN DAMON MD N V67.51 Follow-up Examination Following Completed Treatment With High-risk Medication Not Elsewhere Classified 01/11/2012 WANG DO, CATRINA K 789.01 Abdominal Pain Right Upper Quadrant 01/11/2012 789.01 Abdominal Pain Right Upper Quadrant 01/11/2012 FOSTER GONCALVES, PRECIOUS Singh 789.01 Abdominal Pain Right Upper Quadrant 01/11/2012 789.01 Abdominal Pain Right Upper Quadrant 01/11/2012 WANG DO, CATRINA K 789.01 Abdominal Pain Right Upper Quadrant 01/11/2012 WANG DO, CATRINA K 789.01 Abdominal Pain Right Upper Quadrant 01/11/2012 789.01 Abdominal Pain Right Upper Quadrant 01/11/2012 WANG DO, CATRINA K 789.01 Abdominal Pain Right Upper Quadrant 01/11/2012 WANG DO, CATRINA K 789.01 Abdominal Pain Right Upper Quadrant 01/11/2012 WANG DO, CATRINA K 789.01 Abdominal Pain Right Upper Quadrant 01/11/2012 WANG DO, CATRINA K 789.01 Abdominal Pain Right Upper Quadrant 01/11/2012 WANG DO, CATRINA K 789.01 Abdominal Pain Right Upper Quadrant 01/11/2012 WANG DO, CATRINA K 789.01 Abdominal Pain Right Upper Quadrant 01/11/2012 WANG DO, CATRINA K 789.01 Abdominal Pain Right Upper Quadrant 01/11/2012 WANG DO, CATRINA K 789.01 Abdominal Pain Right Upper Quadrant 01/11/2012 WANG DO, CATRINA K 789.01 Abdominal Pain Right Upper Quadrant 01/11/2012 WANG DO, CATRINA K 789.01 Abdominal Pain Right Upper Quadrant 01/11/2012 WANG DO, CATRINA K 789.01 Abdominal Pain Right Upper Quadrant 01/11/2012 WANG DO, CATRINA K 789.01 Abdominal Pain Right Upper Quadrant 01/11/2012 WANG DO, CATRINA K 789.01 Abdominal Pain Right Upper Quadrant 01/11/2012 WANG DO, CATRINA K 789.01 Abdominal Pain Right Upper Quadrant 01/11/2012 WANG DO, CATRINA K 789.01 Abdominal Pain Right Upper Quadrant 01/11/2012 ANGELA DELATORRE, COLEMAN E 789.01 Abdominal Pain Right Upper Quadrant 01/11/2012 ANGELA DELATORRE, COLEMAN E 789.01 Abdominal Pain Right Upper Quadrant 01/11/2012 ANGELA DELATORRE, COLEMAN E 789.01 Abdominal Pain Right Upper Quadrant 01/11/2012 NELSON GONCALVES, DIANN N 789.01 Abdominal Pain Right Upper Quadrant 01/11/2012 ANGELA DELATORRE, COLEMAN E 789.01 Abdominal Pain Right Upper Quadrant 01/11/2012 NELSON GONCALVES, DIANN N 789.01 Abdominal Pain Right Upper Quadrant 01/11/2012 ANGELA DELATORRE, COLEMAN E 789.01 Abdominal Pain Right Upper Quadrant 01/11/2012 NELSON GONCALVES, DIANN N 789.01 Abdominal Pain Right Upper Quadrant 01/11/2012 NELSON GONCALVES, DIANN N 789.01 Abdominal Pain Right Upper Quadrant 01/13/2012 WANG DO, CATRINA K 227.0 BENIGN NEOPLASM OF ADRENAL GLAND 01/13/2012 227.0 BENIGN NEOPLASM OF ADRENAL GLAND 01/13/2012 FOSTER GONCALVES, PRECIOUS Singh 227.0 BENIGN NEOPLASM OF ADRENAL GLAND 01/13/2012 227.0 BENIGN NEOPLASM OF ADRENAL GLAND 01/13/2012 WANG DO, CATRINA K 227.0 BENIGN NEOPLASM OF ADRENAL GLAND 01/13/2012 WANG DO, CATRINA K 227.0 BENIGN NEOPLASM OF ADRENAL GLAND 01/13/2012 227.0 BENIGN NEOPLASM OF ADRENAL GLAND 01/13/2012 WANG DO, CATRINA K 227.0 BENIGN NEOPLASM OF ADRENAL GLAND 01/13/2012 WANG DO, CATRINA K 227.0 BENIGN NEOPLASM OF ADRENAL GLAND 01/13/2012 WANG DO, CATRINA K 227.0 BENIGN NEOPLASM OF ADRENAL GLAND 01/13/2012 WANG DO, CATRINA K 227.0 BENIGN NEOPLASM OF ADRENAL GLAND 01/13/2012 WANG DO, CATRINA K 227.0 BENIGN NEOPLASM OF ADRENAL GLAND 01/13/2012 WANG DO, CATRINA K 227.0 BENIGN NEOPLASM OF ADRENAL GLAND 01/13/2012 WANG DO, CATRINA K 227.0 BENIGN NEOPLASM OF ADRENAL GLAND 01/13/2012 WANG DO, CATRINA K 227.0 BENIGN NEOPLASM OF ADRENAL GLAND 01/13/2012 WANG DO, CATRINA K 227.0 BENIGN NEOPLASM OF ADRENAL GLAND 01/13/2012 WANG DO, CATRINA K 227.0 BENIGN NEOPLASM OF ADRENAL GLAND 01/13/2012 WANG DO, CATRINA K 227.0 BENIGN NEOPLASM OF ADRENAL GLAND 01/13/2012 WANG DO, CATRINA K 227.0 BENIGN NEOPLASM OF ADRENAL GLAND 01/13/2012 WANG DO, CATRINA K 227.0 BENIGN NEOPLASM OF ADRENAL GLAND 01/13/2012 WANG DO, CATRINA K 227.0 BENIGN NEOPLASM OF ADRENAL GLAND 01/13/2012 WANG DO, CATRINA K 227.0 BENIGN NEOPLASM OF ADRENAL GLAND 01/13/2012 ANGELA RN, COLEMAN E 227.0 BENIGN NEOPLASM OF ADRENAL GLAND 01/13/2012 ANGELA DELATORRE, COLEMAN E 227.0 BENIGN NEOPLASM OF ADRENAL GLAND 01/13/2012 COLEMAN MILLER RN E 227.0 BENIGN NEOPLASM OF ADRENAL GLAND 01/13/2012 DIANN DAMON MD N 227.0 BENIGN NEOPLASM OF ADRENAL GLAND 01/13/2012 COLEMAN MILLER RN E 227.0 BENIGN NEOPLASM OF ADRENAL GLAND 01/13/2012 DIANN DAMON MD N 227.0 BENIGN NEOPLASM OF ADRENAL GLAND 01/13/2012 COLEMAN MILLER RN E 227.0 BENIGN NEOPLASM OF ADRENAL GLAND 01/13/2012 DIANN DAMON MD N 227.0 BENIGN NEOPLASM OF ADRENAL GLAND 01/13/2012 DIANN DAMON MD N 227.0 BENIGN NEOPLASM OF ADRENAL GLAND 01/25/2012 WANG SAROJ BRAVOA K 535.50 UNSPECIFIED GASTRITIS AND GASTRODUODENITIS (WITHOUT HEMORRHAGE) 01/25/2012 535.50 UNSPECIFIED GASTRITIS AND GASTRODUODENITIS (WITHOUT HEMORRHAGE) 01/25/2012 FOSTER GONCALVES, PRECIOUS Singh 535.50 UNSPECIFIED GASTRITIS AND GASTRODUODENITIS (WITHOUT HEMORRHAGE) 01/25/2012 535.50 UNSPECIFIED GASTRITIS AND GASTRODUODENITIS (WITHOUT HEMORRHAGE) 01/25/2012 SAROJ WANG DOA K 535.50 UNSPECIFIED GASTRITIS AND GASTRODUODENITIS (WITHOUT HEMORRHAGE) 01/25/2012 WANG DO CATRINA K 535.50 UNSPECIFIED GASTRITIS AND GASTRODUODENITIS (WITHOUT HEMORRHAGE) 01/25/2012 535.50 UNSPECIFIED GASTRITIS AND GASTRODUODENITIS (WITHOUT HEMORRHAGE) 01/25/2012 SAROJ WANG DOA K 535.50 UNSPECIFIED GASTRITIS AND GASTRODUODENITIS (WITHOUT HEMORRHAGE) 01/25/2012 WANG DO, CATRINA K 535.50 UNSPECIFIED GASTRITIS AND GASTRODUODENITIS (WITHOUT HEMORRHAGE) 01/25/2012 WANG DO, CATRINA K 535.50 UNSPECIFIED GASTRITIS AND GASTRODUODENITIS (WITHOUT HEMORRHAGE) 01/25/2012 WANG DO, CATRINA K 535.50 UNSPECIFIED GASTRITIS AND GASTRODUODENITIS (WITHOUT HEMORRHAGE) 01/25/2012 WANG DO, CATRINA K 535.50 UNSPECIFIED GASTRITIS AND GASTRODUODENITIS (WITHOUT HEMORRHAGE) 01/25/2012 WANG DO, CATRINA K 535.50 UNSPECIFIED GASTRITIS AND GASTRODUODENITIS (WITHOUT HEMORRHAGE) 01/25/2012 WANG DO, CATRINA K 535.50 UNSPECIFIED GASTRITIS AND GASTRODUODENITIS (WITHOUT HEMORRHAGE) 01/25/2012 WANG DO, CATRINA K 535.50 UNSPECIFIED GASTRITIS AND GASTRODUODENITIS (WITHOUT HEMORRHAGE) 01/25/2012 WANG DO, CATRINA K 535.50 UNSPECIFIED GASTRITIS AND GASTRODUODENITIS (WITHOUT HEMORRHAGE) 01/25/2012 WANG DO, CATRINA K 535.50 UNSPECIFIED GASTRITIS AND GASTRODUODENITIS (WITHOUT HEMORRHAGE) 01/25/2012 WANG DO, CATRINA K 535.50 UNSPECIFIED GASTRITIS AND GASTRODUODENITIS (WITHOUT HEMORRHAGE) 01/25/2012 WANG DO, CATRINA K 535.50 UNSPECIFIED GASTRITIS AND GASTRODUODENITIS (WITHOUT HEMORRHAGE) 01/25/2012 WANG DO, CATRINA K 535.50 UNSPECIFIED GASTRITIS AND GASTRODUODENITIS (WITHOUT HEMORRHAGE) 01/25/2012 WANG DO, CATRINA K 535.50 UNSPECIFIED GASTRITIS AND GASTRODUODENITIS (WITHOUT HEMORRHAGE) 01/25/2012 WANG DO, CATRINA K 535.50 UNSPECIFIED GASTRITIS AND GASTRODUODENITIS (WITHOUT HEMORRHAGE) 01/25/2012 COLEMAN MILLER RN 535.50 UNSPECIFIED GASTRITIS AND GASTRODUODENITIS (WITHOUT HEMORRHAGE) 01/25/2012 COLEMAN MILLER RN 535.50 UNSPECIFIED GASTRITIS AND GASTRODUODENITIS (WITHOUT HEMORRHAGE) 01/25/2012 COLEMAN MILLER RN 535.50 UNSPECIFIED GASTRITIS AND GASTRODUODENITIS (WITHOUT HEMORRHAGE) 01/25/2012 NELSON GONCALVES, DIANN Muñoz 535.50 UNSPECIFIED GASTRITIS AND GASTRODUODENITIS (WITHOUT HEMORRHAGE) 01/25/2012 COLEMAN MILLER RN 535.50 UNSPECIFIED GASTRITIS AND GASTRODUODENITIS (WITHOUT HEMORRHAGE) 01/25/2012 DIANN DAMON MD N 535.50 UNSPECIFIED GASTRITIS AND GASTRODUODENITIS (WITHOUT HEMORRHAGE) 01/25/2012 COLEMAN MILLER RN E 535.50 UNSPECIFIED GASTRITIS AND GASTRODUODENITIS (WITHOUT HEMORRHAGE) 01/25/2012 DIANN DAMON MD N 535.50 UNSPECIFIED GASTRITIS AND GASTRODUODENITIS (WITHOUT HEMORRHAGE) 01/25/2012 DIANN DAMON MD 535.50 UNSPECIFIED GASTRITIS AND GASTRODUODENITIS (WITHOUT HEMORRHAGE) 02/02/2012 Ot 535.40 02/02/2012 Ot 553.3 02/22/2012 FOSTER GONCALVES, PRECIOUS Singh 595.9 CYSTITIS UNSPECIFIED 02/22/2012 595.9 CYSTITIS UNSPECIFIED 02/22/2012 WANG DO, CATRINA K 595.9 CYSTITIS UNSPECIFIED 02/22/2012 WANG DO, CATRINA K 595.9 CYSTITIS UNSPECIFIED 02/22/2012 595.9 CYSTITIS UNSPECIFIED 02/22/2012 WANG DO, CATRINA K 595.9 CYSTITIS UNSPECIFIED 02/22/2012 WANG DO, CATRINA K 595.9 CYSTITIS UNSPECIFIED 02/22/2012 WANG DO, CATRINA K 595.9 CYSTITIS UNSPECIFIED 02/22/2012 WANG DO, CATRINA K 595.9 CYSTITIS UNSPECIFIED 02/22/2012 WANG DO, CATRINA K 595.9 CYSTITIS UNSPECIFIED 02/22/2012 WANG DO, CATRINA K 595.9 CYSTITIS UNSPECIFIED 02/22/2012 WANG DO, CATRINA K 595.9 CYSTITIS UNSPECIFIED 02/22/2012 WANG DO, CATRINA K 595.9 CYSTITIS UNSPECIFIED 02/22/2012 WANG DO, CATRINA K 595.9 CYSTITIS UNSPECIFIED 02/22/2012 WANG DO, CATRINA K 595.9 CYSTITIS UNSPECIFIED 02/22/2012 WANG DO, CATRINA K 595.9 CYSTITIS UNSPECIFIED 02/22/2012 WANG DO, CATRINA K 595.9 CYSTITIS UNSPECIFIED 02/22/2012 WANG DO, CATRINA K 595.9 CYSTITIS UNSPECIFIED 02/22/2012 WANG DO, CATRINA K 595.9 CYSTITIS UNSPECIFIED 02/22/2012 WANG DO, CATRINA K 595.9 CYSTITIS UNSPECIFIED 02/22/2012 MILLER RN, COLEMAN E 595.9 CYSTITIS UNSPECIFIED 02/22/2012 ANGELA RN, COLEMAN E 595.9 CYSTITIS UNSPECIFIED 02/22/2012 ANGELA RN, COLEMAN E 595.9 CYSTITIS UNSPECIFIED 02/22/2012 DIANN DAMON MD 595.9 CYSTITIS UNSPECIFIED 02/22/2012 ANGELA DELATORRE, COLEMAN E 595.9 CYSTITIS UNSPECIFIED 02/22/2012 DIANN DAMON MD N 595.9 CYSTITIS UNSPECIFIED 02/22/2012 ANGELA DELATORRE, COLEMAN E 595.9 CYSTITIS UNSPECIFIED 02/22/2012 DIANN DAMON MD N 595.9 CYSTITIS UNSPECIFIED 02/22/2012 DIANN DAMON MD N 595.9 CYSTITIS UNSPECIFIED 03/18/2012 132.0 PEDICULUS CAPITIS (HEAD LOUSE) 03/18/2012 WANG DO, CATRINA K 132.0 PEDICULUS CAPITIS (HEAD LOUSE) 03/18/2012 WANG DO, CATRINA K 132.0 PEDICULUS CAPITIS (HEAD LOUSE) 03/18/2012 132.0 PEDICULUS CAPITIS (HEAD LOUSE) 03/18/2012 WANG DO, CATRINA K 132.0 PEDICULUS CAPITIS (HEAD LOUSE) 03/18/2012 WANG DO, CATRINA K 132.0 PEDICULUS CAPITIS (HEAD LOUSE) 03/18/2012 WANG DO, CATRINA K 132.0 PEDICULUS CAPITIS (HEAD LOUSE) 03/18/2012 WANG DO, CATRINA K 132.0 PEDICULUS CAPITIS (HEAD LOUSE) 03/18/2012 WANG DO, CATRINA K 132.0 PEDICULUS CAPITIS (HEAD LOUSE) 03/18/2012 WANG DO, CATRINA K 132.0 PEDICULUS CAPITIS (HEAD LOUSE) 03/18/2012 WANG DO, CATRINA K 132.0 PEDICULUS CAPITIS (HEAD LOUSE) 03/18/2012 WANG DO, CATRINA K 132.0 PEDICULUS CAPITIS (HEAD LOUSE) 03/18/2012 WANG DO, CATRINA K 132.0 PEDICULUS CAPITIS (HEAD LOUSE) 03/18/2012 WANG DO, CATRINA K 132.0 PEDICULUS CAPITIS (HEAD LOUSE) 03/18/2012 WANG DO, CATRINA K 132.0 PEDICULUS CAPITIS (HEAD LOUSE) 03/18/2012 WANG DO, CATRINA K 132.0 PEDICULUS CAPITIS (HEAD LOUSE) 03/18/2012 WANG DO, CATRINA K 132.0 PEDICULUS CAPITIS (HEAD LOUSE) 03/18/2012 WANG DO, CATRINA K 132.0 PEDICULUS CAPITIS (HEAD LOUSE) 03/18/2012 WANG DO, CATRINA K 132.0 PEDICULUS CAPITIS (HEAD LOUSE) 03/18/2012 COLEMAN MILLER RN E 132.0 PEDICULUS CAPITIS (HEAD LOUSE) 03/18/2012 COLEMAN MILLER RN E 132.0 PEDICULUS CAPITIS (HEAD LOUSE) 03/18/2012 COLEMAN MILLER RN E 132.0 PEDICULUS CAPITIS (HEAD LOUSE) 03/18/2012 DIANN DAMON MD 132.0 PEDICULUS CAPITIS (HEAD LOUSE) 03/18/2012 COLEMAN MILLER RN E 132.0 PEDICULUS CAPITIS (HEAD LOUSE) 03/18/2012 DIANN DAMON MD 132.0 PEDICULUS CAPITIS (HEAD LOUSE) 03/18/2012 COLEMAN MILLER RN E 132.0 PEDICULUS CAPITIS (HEAD LOUSE) 03/18/2012 DIANN DAMON MD 132.0 PEDICULUS CAPITIS (HEAD LOUSE) 03/18/2012 DIANN DAMON MD 132.0 PEDICULUS CAPITIS (HEAD LOUSE) 03/25/2012 WANG DO, CATRINA K 690.10 SEBORRHEIC DERMATITIS UNSPECIFIED 03/25/2012 WANG DO, CATRINA K 690.10 SEBORRHEIC DERMATITIS UNSPECIFIED 03/25/2012 690.10 SEBORRHEIC DERMATITIS UNSPECIFIED 03/25/2012 WANG DO, CATRINA K 690.10 SEBORRHEIC DERMATITIS UNSPECIFIED 03/25/2012 WANG DO, CATRINA K 690.10 SEBORRHEIC DERMATITIS UNSPECIFIED 03/25/2012 WANG DO, CATRINA K 690.10 SEBORRHEIC DERMATITIS UNSPECIFIED 03/25/2012 WANG DO, CATRINA K 690.10 SEBORRHEIC DERMATITIS UNSPECIFIED 03/25/2012 WANG DO, CATRINA K 690.10 SEBORRHEIC DERMATITIS UNSPECIFIED 03/25/2012 WANG DO, CATRINA K 690.10 SEBORRHEIC DERMATITIS UNSPECIFIED 03/25/2012 WANG DO, CATRINA K 690.10 SEBORRHEIC DERMATITIS UNSPECIFIED 03/25/2012 WANG DO, CATRINA K 690.10 SEBORRHEIC DERMATITIS UNSPECIFIED 03/25/2012 WANG DO, CATRINA K 690.10 SEBORRHEIC DERMATITIS UNSPECIFIED 03/25/2012 WANG DO, CATRINA K 690.10 SEBORRHEIC DERMATITIS UNSPECIFIED 03/25/2012 WANG DO, CATRINA K 690.10 SEBORRHEIC DERMATITIS UNSPECIFIED 03/25/2012 WANG DO, CATRINA K 690.10 SEBORRHEIC DERMATITIS UNSPECIFIED 03/25/2012 WANG DO, CATRINA K 690.10 SEBORRHEIC DERMATITIS UNSPECIFIED 03/25/2012 WANG DO, CATRINA K 690.10 SEBORRHEIC DERMATITIS UNSPECIFIED 03/25/2012 WANG DO, CATRINA K 690.10 SEBORRHEIC DERMATITIS UNSPECIFIED 03/25/2012 ANGELA DELATORRE, COLEMAN E 690.10 SEBORRHEIC DERMATITIS UNSPECIFIED 03/25/2012 ANGELA DELATORRE, COLEMAN E 690.10 SEBORRHEIC DERMATITIS UNSPECIFIED 03/25/2012 ANGELA DELATORRE, COLEMAN E 690.10 SEBORRHEIC DERMATITIS UNSPECIFIED 03/25/2012 NELSON GONCALVES, DIANN N 690.10 SEBORRHEIC DERMATITIS UNSPECIFIED 03/25/2012 ANGELA DELATORRE, COLEMAN E 690.10 SEBORRHEIC DERMATITIS UNSPECIFIED 03/25/2012 DIANN DAMON MD 690.10 SEBORRHEIC DERMATITIS UNSPECIFIED 03/25/2012 ANGELA DELATORRE, COLEMAN E 690.10 SEBORRHEIC DERMATITIS UNSPECIFIED 03/25/2012 DIANN DAMON MD N 690.10 SEBORRHEIC DERMATITIS UNSPECIFIED 03/25/2012 DIANN DAMON MD 690.10 SEBORRHEIC DERMATITIS UNSPECIFIED 04/15/2012 WANG DO, CATRINA K 372.14 OTHER CHRONIC ALLERGIC CONJUNCTIVITIS 04/15/2012 WANG DO, CATRINA K 466.0 BRONCHITIS, ACUTE 04/15/2012 WANG DO, CATRINA K 729.1 MYALGIA AND MYOSITIS UNSPECIFIED 04/15/2012 372.14 OTHER CHRONIC ALLERGIC CONJUNCTIVITIS 04/15/2012 466.0 BRONCHITIS, ACUTE 04/15/2012 729.1 MYALGIA AND MYOSITIS UNSPECIFIED 04/15/2012 WANG DO, CATRINA K 372.14 OTHER CHRONIC ALLERGIC CONJUNCTIVITIS 04/15/2012 WANG DO, CATRINA K 466.0 BRONCHITIS, ACUTE 04/15/2012 WANG DO, CATRINA K 729.1 MYALGIA AND MYOSITIS UNSPECIFIED 04/15/2012 WANG DO, CATRINA K 372.14 OTHER CHRONIC ALLERGIC CONJUNCTIVITIS 04/15/2012 WANG DO, CATRINA K 466.0 BRONCHITIS, ACUTE 04/15/2012 WANG DO, CATRINA K 729.1 MYALGIA AND MYOSITIS UNSPECIFIED 04/15/2012 WANG DO, CATRINA K 372.14 OTHER CHRONIC ALLERGIC CONJUNCTIVITIS 04/15/2012 WANG DO, CATRINA K 466.0 BRONCHITIS, ACUTE 04/15/2012 WANG DO, CATRINA K 729.1 MYALGIA AND MYOSITIS UNSPECIFIED 04/15/2012 WANG DO, CATRINA K 372.14 OTHER CHRONIC ALLERGIC CONJUNCTIVITIS 04/15/2012 WANG DO, CATRINA K 466.0 BRONCHITIS, ACUTE 04/15/2012 WANG DO, CATRINA K 729.1 MYALGIA AND MYOSITIS UNSPECIFIED 04/15/2012 WANG DO, CATRINA K 372.14 OTHER CHRONIC ALLERGIC CONJUNCTIVITIS 04/15/2012 WANG DO, CATRINA K 466.0 BRONCHITIS, ACUTE 04/15/2012 WANG DO, CATRINA K 729.1 MYALGIA AND MYOSITIS UNSPECIFIED 04/15/2012 WANG DO, CATRINA K 372.14 OTHER CHRONIC ALLERGIC CONJUNCTIVITIS 04/15/2012 WANG DO, CATRINA K 466.0 BRONCHITIS, ACUTE 04/15/2012 WANG DO, CATRINA K 729.1 MYALGIA AND MYOSITIS UNSPECIFIED 04/15/2012 WANG DO, CATRINA K 372.14 OTHER CHRONIC ALLERGIC CONJUNCTIVITIS 04/15/2012 WANG DO, CATRINA K 466.0 BRONCHITIS, ACUTE 04/15/2012 WANG DO, CATRINA K 729.1 MYALGIA AND MYOSITIS UNSPECIFIED 04/15/2012 WANG DO, CATRINA K 372.14 OTHER CHRONIC ALLERGIC CONJUNCTIVITIS 04/15/2012 WANG DO, CATRINA K 466.0 BRONCHITIS, ACUTE 04/15/2012 WANG DO, CATRINA K 729.1 MYALGIA AND MYOSITIS UNSPECIFIED 04/15/2012 WANG DO, CATRINA K 372.14 OTHER CHRONIC ALLERGIC CONJUNCTIVITIS 04/15/2012 WANG DO, CATRINA K 466.0 BRONCHITIS, ACUTE 04/15/2012 WANG DO, CATRINA K 729.1 MYALGIA AND MYOSITIS UNSPECIFIED 04/15/2012 WANG DO, CATRINA K 372.14 OTHER CHRONIC ALLERGIC CONJUNCTIVITIS 04/15/2012 WANG DO, CATRINA K 466.0 BRONCHITIS, ACUTE 04/15/2012 WANG DO, CATRINA K 729.1 MYALGIA AND MYOSITIS UNSPECIFIED 04/15/2012 WANG DO, CATRINA K 372.14 OTHER CHRONIC ALLERGIC CONJUNCTIVITIS 04/15/2012 WANG DO, CATRINA K 466.0 BRONCHITIS, ACUTE 04/15/2012 WANG DO, CATRINA K 729.1 MYALGIA AND MYOSITIS UNSPECIFIED 04/15/2012 WANG DO, CATRINA K 372.14 OTHER CHRONIC ALLERGIC CONJUNCTIVITIS 04/15/2012 WANG DO, CATRINA K 466.0 BRONCHITIS, ACUTE 04/15/2012 WANG DO, CATRINA K 729.1 MYALGIA AND MYOSITIS UNSPECIFIED 04/15/2012 WANG DO, CATRINA K 372.14 OTHER CHRONIC ALLERGIC CONJUNCTIVITIS 04/15/2012 WANG DO, CATRINA K 466.0 BRONCHITIS, ACUTE 04/15/2012 WANG DO, CATRINA K 729.1 MYALGIA AND MYOSITIS UNSPECIFIED 04/15/2012 WANG DO, CATRINA K 372.14 OTHER CHRONIC ALLERGIC CONJUNCTIVITIS 04/15/2012 WANG DO, CATRINA K 466.0 BRONCHITIS, ACUTE 04/15/2012 WANG DO, CATRINA K 729.1 MYALGIA AND MYOSITIS UNSPECIFIED 04/15/2012 WANG DO, CATRINA K 372.14 OTHER CHRONIC ALLERGIC CONJUNCTIVITIS 04/15/2012 WANG DO, CATRINA K 466.0 BRONCHITIS, ACUTE 04/15/2012 WANG DO, CATRINA K 729.1 MYALGIA AND MYOSITIS UNSPECIFIED 04/15/2012 ANGELA DELATORRE, COLEMAN E 372.14 OTHER CHRONIC ALLERGIC CONJUNCTIVITIS 04/15/2012 ANGELA RN, COLEMAN E 466.0 BRONCHITIS, ACUTE 04/15/2012 ANGELA DELATORRE, COLEMAN E 729.1 MYALGIA AND MYOSITIS UNSPECIFIED 04/15/2012 ANGELA DELATORRE, COLEMAN E 372.14 OTHER CHRONIC ALLERGIC CONJUNCTIVITIS 04/15/2012 ANGELA DELATORRE, COLEMAN E 466.0 BRONCHITIS, ACUTE 04/15/2012 ANGELA DELATORRE, COLEMAN E 729.1 MYALGIA AND MYOSITIS UNSPECIFIED 04/15/2012 ANGELA DELATORRE, COLEMAN E 372.14 OTHER CHRONIC ALLERGIC CONJUNCTIVITIS 04/15/2012 MILLER RN, COLEMAN E 466.0 BRONCHITIS, ACUTE 04/15/2012 MILLER RN, COLEMAN E 729.1 MYALGIA AND MYOSITIS UNSPECIFIED 04/15/2012 DIANN DAMON MD N 372.14 OTHER CHRONIC ALLERGIC CONJUNCTIVITIS 04/15/2012 DIANN DAMON MD N 466.0 BRONCHITIS, ACUTE 04/15/2012 DIANN DAMON MD N 729.1 MYALGIA AND MYOSITIS UNSPECIFIED 04/15/2012 ANGELA RN, COLEMAN E 372.14 OTHER CHRONIC ALLERGIC CONJUNCTIVITIS 04/15/2012 MILLER RN, COLEMAN E 466.0 BRONCHITIS, ACUTE 04/15/2012 MILLER RN, COLEMAN E 729.1 MYALGIA AND MYOSITIS UNSPECIFIED 04/15/2012 NELSON GONCALVES DIANN N 372.14 OTHER CHRONIC ALLERGIC CONJUNCTIVITIS 04/15/2012 DIANN DAMON MD N 466.0 BRONCHITIS, ACUTE 04/15/2012 DIANN DAMON MD N 729.1 MYALGIA AND MYOSITIS UNSPECIFIED 04/15/2012 ANGELA RN, COLEMAN E 372.14 OTHER CHRONIC ALLERGIC CONJUNCTIVITIS 04/15/2012 MILLER RN, COLEMAN E 466.0 BRONCHITIS, ACUTE 04/15/2012 MILLER RN, COLEMAN E 729.1 MYALGIA AND MYOSITIS UNSPECIFIED 04/15/2012 NELSON GONCALVES, DIANN N 372.14 OTHER CHRONIC ALLERGIC CONJUNCTIVITIS 04/15/2012 DIANN DAMON MD N 466.0 BRONCHITIS, ACUTE 04/15/2012 DORIS DAMON MDY N 729.1 MYALGIA AND MYOSITIS UNSPECIFIED 04/15/2012 NELSON GONCALVES DIANN N 372.14 OTHER CHRONIC ALLERGIC CONJUNCTIVITIS 04/15/2012 DIANN DAMON MD N 466.0 BRONCHITIS, ACUTE 04/15/2012 DIANN DAMON MD N 729.1 MYALGIA AND MYOSITIS UNSPECIFIED 05/16/2012 788.99 bladder pain 05/16/2012 848.9 UNSPECIFIED MUSCLE STRAIN 05/16/2012 WANG DO CATRINA K 788.99 bladder pain 05/16/2012 SAROJ WANG DOA K 848.9 UNSPECIFIED MUSCLE STRAIN 05/16/2012 WANG DO, CATRINA K 788.99 bladder pain 05/16/2012 WANG DO, CATRINA K 848.9 UNSPECIFIED MUSCLE STRAIN 05/16/2012 WANG DO, CATRINA K 788.99 bladder pain 05/16/2012 WANG DO, CATRINA K 848.9 UNSPECIFIED MUSCLE STRAIN 05/16/2012 WANG DO, CATRINA K 788.99 bladder pain 05/16/2012 WANG DO, CATRINA K 848.9 UNSPECIFIED MUSCLE STRAIN 05/16/2012 WANG DO, CATRINA K 788.99 bladder pain 05/16/2012 WANG DO, CATRINA K 848.9 UNSPECIFIED MUSCLE STRAIN 05/16/2012 WANG DO, CATRINA K 788.99 bladder pain 05/16/2012 WANG DO, CATRINA K 848.9 UNSPECIFIED MUSCLE STRAIN 05/16/2012 WANG DO, CATRINA K 788.99 bladder pain 05/16/2012 WANG DO, CATRINA K 848.9 UNSPECIFIED MUSCLE STRAIN 05/16/2012 WANG DO, CATRINA K 788.99 bladder pain 05/16/2012 WANG DO, CATRINA K 848.9 UNSPECIFIED MUSCLE STRAIN 05/16/2012 WANG DO, CATRINA K 788.99 bladder pain 05/16/2012 WANG DO, CATRINA K 848.9 UNSPECIFIED MUSCLE STRAIN 05/16/2012 WANG DO, CATRINA K 788.99 bladder pain 05/16/2012 WANG DO, CATRINA K 848.9 UNSPECIFIED MUSCLE STRAIN 05/16/2012 WANG DO, CATRINA K 788.99 bladder pain 05/16/2012 WANG DO, CATRINA K 848.9 UNSPECIFIED MUSCLE STRAIN 05/16/2012 WANG DO, CATRINA K 788.99 bladder pain 05/16/2012 WANG DO, CATRINA K 848.9 UNSPECIFIED MUSCLE STRAIN 05/16/2012 WANG DO, CATRINA K 788.99 bladder pain 05/16/2012 WANG DO, CATRINA K 848.9 UNSPECIFIED MUSCLE STRAIN 05/16/2012 WANG DO, CATRINA K 788.99 bladder pain 05/16/2012 WANG DO, CATRINA K 848.9 UNSPECIFIED MUSCLE STRAIN 05/16/2012 WANG DO, CATRINA K 788.99 bladder pain 05/16/2012 WANG DO, CATRINA K 848.9 UNSPECIFIED MUSCLE STRAIN 05/16/2012 ANGELA DELATORRE, COLEMAN E 788.99 bladder pain 05/16/2012 ANGELA DELATORRE, COLEMAN E 848.9 UNSPECIFIED MUSCLE STRAIN 05/16/2012 ANGELA DELATORRE, COLEMAN E 788.99 bladder pain 05/16/2012 ANGELA RN, COLEMAN E 848.9 UNSPECIFIED MUSCLE STRAIN 05/16/2012 ANGELA DELATORRE, COLEMAN E 788.99 bladder pain 05/16/2012 ANGELA DELATORRE, COLEMAN E 848.9 UNSPECIFIED MUSCLE STRAIN 05/16/2012 NELSON GONCALVES, DIANN N 788.99 bladder pain 05/16/2012 NELSON GONCALVES, DIANN N 848.9 UNSPECIFIED MUSCLE STRAIN 05/16/2012 ANGELA DELATORRE, COLEMAN E 788.99 bladder pain 05/16/2012 ANGELA DELATORRE, COLEMAN E 848.9 UNSPECIFIED MUSCLE STRAIN 05/16/2012 NELSON GONCALVES, DIANN N 788.99 bladder pain 05/16/2012 DIANN DAMON MD N 848.9 UNSPECIFIED MUSCLE STRAIN 05/16/2012 ANGELA DELATORRE, COLEMAN E 788.99 bladder pain 05/16/2012 ANGELA DELATORRE, COLEMAN E 848.9 UNSPECIFIED MUSCLE STRAIN 05/16/2012 NELSON GONCALVES, DIANN N 788.99 bladder pain 05/16/2012 NELSON GONCALVES, DIANN N 848.9 UNSPECIFIED MUSCLE STRAIN 05/16/2012 NELSON GONCALVES, DIANN N 788.99 bladder pain 05/16/2012 NELSON GONCALVES, DIANN N 848.9 UNSPECIFIED MUSCLE STRAIN 06/02/2012 CATRINA WANG DO 787.01 NAUSEA WITH VOMITING 06/02/2012 CATRINA WANG DO 787.01 NAUSEA WITH VOMITING 06/02/2012 CATRINA WANG DO K 787.01 NAUSEA WITH VOMITING 06/02/2012 SAROJ WANG DOA K 787.01 NAUSEA WITH VOMITING 06/02/2012 SAROJ WANG DOA K 787.01 NAUSEA WITH VOMITING 06/02/2012 SAROJ WANG DOA K 787.01 NAUSEA WITH VOMITING 06/02/2012 SAROJ WANG DOA K 787.01 NAUSEA WITH VOMITING 06/02/2012 SAROJ WANG DOA K 787.01 NAUSEA WITH VOMITING 06/02/2012 SAROJ WANG DOA K 787.01 NAUSEA WITH VOMITING 06/02/2012 WANG DO, CATRINA K 787.01 NAUSEA WITH VOMITING 06/02/2012 WANG DO, CATRINA K 787.01 NAUSEA WITH VOMITING 06/02/2012 WANG DO, CATRINA K 787.01 NAUSEA WITH VOMITING 06/02/2012 WANG DO, CATRINA K 787.01 NAUSEA WITH VOMITING 06/02/2012 WANG DO, CATRINA K 787.01 NAUSEA WITH VOMITING 06/02/2012 WANG DO, CATRINA K 787.01 NAUSEA WITH VOMITING 06/02/2012 COLEMAN MILLER RN E 787.01 NAUSEA WITH VOMITING 06/02/2012 COLEMAN MILLER RN E 787.01 NAUSEA WITH VOMITING 06/02/2012 COLEMAN MILLER RN 787.01 NAUSEA WITH VOMITING 06/02/2012 DIANN DAMON MD 787.01 NAUSEA WITH VOMITING 06/02/2012 COLEMAN MILLER RN E 787.01 NAUSEA WITH VOMITING 06/02/2012 DIANN DAMON MD 787.01 NAUSEA WITH VOMITING 06/02/2012 COLEMAN MILLER RN 787.01 NAUSEA WITH VOMITING 06/02/2012 DIANN DAMON MD 787.01 NAUSEA WITH VOMITING 06/02/2012 DIANN DAMON MD 787.01 NAUSEA WITH VOMITING 06/18/2012 Ot 276.8 06/18/2012 Ot 300.00 06/18/2012 Ot 305.1 06/18/2012 Ot 311 06/18/2012 Ot 345.90 06/18/2012 Ot 493.20 06/18/2012 Ot 530.81 06/18/2012 Ot 564.00 06/18/2012 Ot 574.60 06/18/2012 Ot 595.1 07/18/2012 WANG DO, CATRINA K 575.11 CHOLECYSTITIS, CHRONIC 07/18/2012 WANG DO, CATRINA K 575.11 CHOLECYSTITIS, CHRONIC 07/18/2012 WANG DO, CATRINA K 575.11 CHOLECYSTITIS, CHRONIC 07/18/2012 WANG DO, CATRINA K 575.11 CHOLECYSTITIS, CHRONIC 07/18/2012 WANG DO, CATRINA K 575.11 CHOLECYSTITIS, CHRONIC 07/18/2012 WANG DO, CATRINA K 575.11 CHOLECYSTITIS, CHRONIC 07/18/2012 WANG DO, CATRINA K 575.11 CHOLECYSTITIS, CHRONIC 07/18/2012 WANG DO, CATRINA K 575.11 CHOLECYSTITIS, CHRONIC 07/18/2012 WANG DO, CATRINA K 575.11 CHOLECYSTITIS, CHRONIC 07/18/2012 WANG DO, CATRINA K 575.11 CHOLECYSTITIS, CHRONIC 07/18/2012 WANG DO, CATRINA K 575.11 CHOLECYSTITIS, CHRONIC 07/18/2012 WANG DO, CATRINA K 575.11 CHOLECYSTITIS, CHRONIC 07/18/2012 WANG DO, CATRINA K 575.11 CHOLECYSTITIS, CHRONIC 07/18/2012 WANG DO, CATRINA K 575.11 CHOLECYSTITIS, CHRONIC 07/18/2012 ANGELA RN, COLEMAN E 575.11 CHOLECYSTITIS, CHRONIC 07/18/2012 ANGELA DELATORRE, COLEMAN E 575.11 CHOLECYSTITIS, CHRONIC 07/18/2012 ANGELA RN, COLEMAN E 575.11 CHOLECYSTITIS, CHRONIC 07/18/2012 NELSON GONCALVES, DIANN N 575.11 CHOLECYSTITIS, CHRONIC 07/18/2012 ANGELA DELATORRE, COLEMAN E 575.11 CHOLECYSTITIS, CHRONIC 07/18/2012 NELSON GONCALVES, DIANN N 575.11 CHOLECYSTITIS, CHRONIC 07/18/2012 ANGELA DELATORRE, COLEMAN E 575.11 CHOLECYSTITIS, CHRONIC 07/18/2012 NELSON GONCALVES, DIANN N 575.11 CHOLECYSTITIS, CHRONIC 07/18/2012 NELSON GONCALVES, DIANN N 575.11 CHOLECYSTITIS, CHRONIC 08/17/2012 WANG DO, CATRINA K 496 COPD 08/17/2012 WANG DO, CATRINA K 564.1 IRRITABLE BOWEL SYNDROME 08/17/2012 WANG DO, CATRINA K 784.0 HEADACHE 08/17/2012 WANG DO, CATRINA K 496 COPD 08/17/2012 WANG DO, CATRINA K 564.1 IRRITABLE BOWEL SYNDROME 08/17/2012 WANG DO, CATRINA K 784.0 HEADACHE 08/17/2012 WANG DO, CATRINA K 496 COPD 08/17/2012 WANG DO, CATRINA K 564.1 IRRITABLE BOWEL SYNDROME 08/17/2012 WANG DO, CATRINA K 784.0 HEADACHE 08/17/2012 WANG DO, CATRINA K 496 COPD 08/17/2012 WANG DO, CATRINA K 564.1 IRRITABLE BOWEL SYNDROME 08/17/2012 WANG DO, CATRINA K 784.0 HEADACHE 08/17/2012 WANG DO, CATRINA K 496 COPD 08/17/2012 WANG DO, CATRINA K 564.1 IRRITABLE BOWEL SYNDROME 08/17/2012 WANG DO, CATRINA K 784.0 HEADACHE 08/17/2012 WANG DO, CATRINA K 496 COPD 08/17/2012 WANG DO, CATRINA K 564.1 IRRITABLE BOWEL SYNDROME 08/17/2012 WANG DO, CATRINA K 784.0 HEADACHE 08/17/2012 WANG DO, CATRINA K 496 COPD 08/17/2012 WANG DO, CATRINA K 564.1 IRRITABLE BOWEL SYNDROME 08/17/2012 WANG DO, CATRINA K 784.0 HEADACHE 08/17/2012 WANG DO, CATRINA K 496 COPD 08/17/2012 WANG DO, CATRINA K 564.1 IRRITABLE BOWEL SYNDROME 08/17/2012 WANG DO, CATRINA K 784.0 HEADACHE 08/17/2012 WANG DO, CATRINA K 496 COPD 08/17/2012 WANG DO, CATRINA K 564.1 IRRITABLE BOWEL SYNDROME 08/17/2012 WANG DO, CATRINA K 784.0 HEADACHE 08/17/2012 WANG DO, CATRINA K 496 COPD 08/17/2012 WANG DO, CATRINA K 564.1 IRRITABLE BOWEL SYNDROME 08/17/2012 WANG DO, CATRINA K 784.0 HEADACHE 08/17/2012 WANG DO, CATRINA K 496 COPD 08/17/2012 WANG DO, CATRINA K 564.1 IRRITABLE BOWEL SYNDROME 08/17/2012 WANG DO, CATRINA K 784.0 HEADACHE 08/17/2012 WANG DO, CATRINA K 496 COPD 08/17/2012 WANG DO, CATRINA K 564.1 IRRITABLE BOWEL SYNDROME 08/17/2012 WANG DO, CATRINA K 784.0 HEADACHE 08/17/2012 WANG DO, CATRINA K 496 COPD 08/17/2012 WANG DO, CATRINA K 564.1 IRRITABLE BOWEL SYNDROME 08/17/2012 WANG DO, CATRINA K 784.0 HEADACHE 08/17/2012 WANG DO, CATRINA K 496 COPD 08/17/2012 WANG DO, CATRINA K 564.1 IRRITABLE BOWEL SYNDROME 08/17/2012 WANG DO, CATRINA K 784.0 HEADACHE 08/17/2012 ANGELA RN, COLEMAN E 496 COPD 08/17/2012 MILLER RN, COLEMAN E 564.1 IRRITABLE BOWEL SYNDROME 08/17/2012 ANGELA RN, COLEMAN E 784.0 HEADACHE 08/17/2012 MILLER RN, COLEMAN E 496 COPD 08/17/2012 MILLER RN, COLEMAN E 564.1 IRRITABLE BOWEL SYNDROME 08/17/2012 MILLER RN, COLEMAN E 784.0 HEADACHE 08/17/2012 ANGELA RN, COLEMAN E 496 COPD 08/17/2012 MILLER RN, COLEMAN E 564.1 IRRITABLE BOWEL SYNDROME 08/17/2012 MILLER RN, COLEMAN E 784.0 HEADACHE 08/17/2012 DIANN DAMON MD N 496 COPD 08/17/2012 DIANN DAMON MD N 564.1 IRRITABLE BOWEL SYNDROME 08/17/2012 DIANN DAMON MD N 784.0 HEADACHE 08/17/2012 ANGELA RN, COLEMAN E 496 COPD 08/17/2012 ANGELA RN, COLEMAN E 564.1 IRRITABLE BOWEL SYNDROME 08/17/2012 ANGELA RN, COLEMAN E 784.0 HEADACHE 08/17/2012 DIANN DAMON MD N 496 COPD 08/17/2012 DIANN DAMON MD N 564.1 IRRITABLE BOWEL SYNDROME 08/17/2012 DIANN DAMON MD N 784.0 HEADACHE 08/17/2012 ANGELA RN, COLEMAN E 496 COPD 08/17/2012 ANGELA RN, COLEMAN E 564.1 IRRITABLE BOWEL SYNDROME 08/17/2012 ANGELA RN, COLEMAN E 784.0 HEADACHE 08/17/2012 DIANN DAMON MD N 496 COPD 08/17/2012 DIANN DAMON MD N 564.1 IRRITABLE BOWEL SYNDROME 08/17/2012 DIANN DAMON MD N 784.0 HEADACHE 08/17/2012 DIANN DAMON MD N 496 COPD 08/17/2012 DIANN DAMON MD N 564.1 IRRITABLE BOWEL SYNDROME 08/17/2012 DIANN DAMON MD N 784.0 HEADACHE 10/05/2012 CATRINA WANG DO 455.6 UNSPECIFIED HEMORRHOIDS WITHOUT COMPLICATION 10/05/2012 CATRINA WANG DO 599.70 HEMATURIA UNSPECIFIED 10/05/2012 WANG DO, CATRINA K 786.05 SHORTNESS OF BREATH 10/05/2012 WANG DO, CATRINA K V52.2 FITTING AND ADJUSTMENT OF ARTIFICIAL EYE 10/05/2012 WANG DO, CATRINA K 455.6 UNSPECIFIED HEMORRHOIDS WITHOUT COMPLICATION 10/05/2012 WANG DO, CATRINA K 599.70 HEMATURIA UNSPECIFIED 10/05/2012 WANG DO, CATRINA K 786.05 SHORTNESS OF BREATH 10/05/2012 WANG DO, CATRINA K V52.2 FITTING AND ADJUSTMENT OF ARTIFICIAL EYE 10/05/2012 WANG DO, CATRINA K 455.6 UNSPECIFIED HEMORRHOIDS WITHOUT COMPLICATION 10/05/2012 WANG DO, CATRINA K 599.70 HEMATURIA UNSPECIFIED 10/05/2012 WANG DO, CATRINA K 786.05 SHORTNESS OF BREATH 10/05/2012 WANG DO, CATRINA K V52.2 FITTING AND ADJUSTMENT OF ARTIFICIAL EYE 10/05/2012 WANG DO, CATRINA K 455.6 UNSPECIFIED HEMORRHOIDS WITHOUT COMPLICATION 10/05/2012 WANG DO, CATRINA K 599.70 HEMATURIA UNSPECIFIED 10/05/2012 WANG DO, CATRINA K 786.05 SHORTNESS OF BREATH 10/05/2012 WANG DO, CATRINA K V52.2 FITTING AND ADJUSTMENT OF ARTIFICIAL EYE 10/05/2012 WANG DO, CATRINA K 455.6 UNSPECIFIED HEMORRHOIDS WITHOUT COMPLICATION 10/05/2012 WANG DO, CATRINA K 599.70 HEMATURIA UNSPECIFIED 10/05/2012 WANG DO, CATRINA K 786.05 SHORTNESS OF BREATH 10/05/2012 WANG DO, CATRINA K V52.2 FITTING AND ADJUSTMENT OF ARTIFICIAL EYE 10/05/2012 WANG DO, CATRINA K 455.6 UNSPECIFIED HEMORRHOIDS WITHOUT COMPLICATION 10/05/2012 WANG DO, CATRINA K 599.70 HEMATURIA UNSPECIFIED 10/05/2012 WANG DO, CATRINA K 786.05 SHORTNESS OF BREATH 10/05/2012 WANG DO, CATRINA K V52.2 FITTING AND ADJUSTMENT OF ARTIFICIAL EYE 10/05/2012 WANG DO, CATRINA K 455.6 UNSPECIFIED HEMORRHOIDS WITHOUT COMPLICATION 10/05/2012 WANG DO, CATRINA K 599.70 HEMATURIA UNSPECIFIED 10/05/2012 WANG DO, CATRINA K 786.05 SHORTNESS OF BREATH 10/05/2012 WANG DO, CATRINA K V52.2 FITTING AND ADJUSTMENT OF ARTIFICIAL EYE 10/05/2012 WANG DO, CATRINA K 455.6 UNSPECIFIED HEMORRHOIDS WITHOUT COMPLICATION 10/05/2012 WANG DO, CATRINA K 599.70 HEMATURIA UNSPECIFIED 10/05/2012 WANG DO, CATRINA K 786.05 SHORTNESS OF BREATH 10/05/2012 WANG DO, CATRINA K V52.2 FITTING AND ADJUSTMENT OF ARTIFICIAL EYE 10/05/2012 WANG DO, CATRINA K 455.6 UNSPECIFIED HEMORRHOIDS WITHOUT COMPLICATION 10/05/2012 WANG DO, CATRINA K 599.70 HEMATURIA UNSPECIFIED 10/05/2012 WANG DO, CATRINA K 786.05 SHORTNESS OF BREATH 10/05/2012 WANG DO, CATRINA K V52.2 FITTING AND ADJUSTMENT OF ARTIFICIAL EYE 10/05/2012 WANG DO, CATRINA K 455.6 UNSPECIFIED HEMORRHOIDS WITHOUT COMPLICATION 10/05/2012 WANG DO, CATRINA K 599.70 HEMATURIA UNSPECIFIED 10/05/2012 WANG DO, CATRINA K 786.05 SHORTNESS OF BREATH 10/05/2012 WANG DO, CATRINA K V52.2 FITTING AND ADJUSTMENT OF ARTIFICIAL EYE 10/05/2012 WANG DO, CATRINA K 455.6 UNSPECIFIED HEMORRHOIDS WITHOUT COMPLICATION 10/05/2012 WANG DO, CATRINA K 599.70 HEMATURIA UNSPECIFIED 10/05/2012 WANG DO, CATRINA K 786.05 SHORTNESS OF BREATH 10/05/2012 WANG DO, CATRINA K V52.2 FITTING AND ADJUSTMENT OF ARTIFICIAL EYE 10/05/2012 WANG DO, CATRINA K 455.6 UNSPECIFIED HEMORRHOIDS WITHOUT COMPLICATION 10/05/2012 WANG DO, CATRINA K 599.70 HEMATURIA UNSPECIFIED 10/05/2012 WANG DO, CATRINA K 786.05 SHORTNESS OF BREATH 10/05/2012 WANG DO, CATRINA K V52.2 FITTING AND ADJUSTMENT OF ARTIFICIAL EYE 10/05/2012 WANG DO, CATRINA K 455.6 UNSPECIFIED HEMORRHOIDS WITHOUT COMPLICATION 10/05/2012 WANG DO, CATRINA K 599.70 HEMATURIA UNSPECIFIED 10/05/2012 WANG DO, CATRINA K 786.05 SHORTNESS OF BREATH 10/05/2012 WANG DO, CATRINA K V52.2 FITTING AND ADJUSTMENT OF ARTIFICIAL EYE 10/05/2012 WANG DO, CATRINA K 455.6 UNSPECIFIED HEMORRHOIDS WITHOUT COMPLICATION 10/05/2012 WANG DO, CATRINA K 599.70 HEMATURIA UNSPECIFIED 10/05/2012 WANG DO, CATRINA K 786.05 SHORTNESS OF BREATH 10/05/2012 WANG DO, CATRINA K V52.2 FITTING AND ADJUSTMENT OF ARTIFICIAL EYE 10/05/2012 COLEMAN MILLER RN E 455.6 UNSPECIFIED HEMORRHOIDS WITHOUT COMPLICATION 10/05/2012 ANGELA DELATORRE, COLEMAN E 599.70 HEMATURIA UNSPECIFIED 10/05/2012 COLEMAN MILLER RN E 786.05 SHORTNESS OF BREATH 10/05/2012 COLEMAN MILLER RN E V52.2 FITTING AND ADJUSTMENT OF ARTIFICIAL EYE 10/05/2012 ANGELA DELATORRE, COLEMAN E 455.6 UNSPECIFIED HEMORRHOIDS WITHOUT COMPLICATION 10/05/2012 COLEMAN MILLER RN E 599.70 HEMATURIA UNSPECIFIED 10/05/2012 COLEMAN MILLER RN E 786.05 SHORTNESS OF BREATH 10/05/2012 COLEMAN MILLER RN E V52.2 FITTING AND ADJUSTMENT OF ARTIFICIAL EYE 10/05/2012 COLEMAN MILLER RN E 455.6 UNSPECIFIED HEMORRHOIDS WITHOUT COMPLICATION 10/05/2012 COLEMAN MILLER RN E 599.70 HEMATURIA UNSPECIFIED 10/05/2012 ANGELA DELATORRE, COLEMAN E 786.05 SHORTNESS OF BREATH 10/05/2012 ANGELA DELATORRE, COLEMAN E V52.2 FITTING AND ADJUSTMENT OF ARTIFICIAL EYE 10/05/2012 DIANN DAMON MD N 455.6 UNSPECIFIED HEMORRHOIDS WITHOUT COMPLICATION 10/05/2012 DIANN DAMON MD N 599.70 HEMATURIA UNSPECIFIED 10/05/2012 DIANN DAMON MD N 786.05 SHORTNESS OF BREATH 10/05/2012 DIANN DAMON MD V52.2 FITTING AND ADJUSTMENT OF ARTIFICIAL EYE 10/05/2012 COLEMAN MILLER RN E 455.6 UNSPECIFIED HEMORRHOIDS WITHOUT COMPLICATION 10/05/2012 REGINA MILLER RNISTA E 599.70 HEMATURIA UNSPECIFIED 10/05/2012 COLEMAN MILLER RN E 786.05 SHORTNESS OF BREATH 10/05/2012 REGINA MILLER RNISTA E V52.2 FITTING AND ADJUSTMENT OF ARTIFICIAL EYE 10/05/2012 DIANN DAMON MD N 455.6 UNSPECIFIED HEMORRHOIDS WITHOUT COMPLICATION 10/05/2012 DIANN DAMON MD N 599.70 HEMATURIA UNSPECIFIED 10/05/2012 DIANN DAMON MD N 786.05 SHORTNESS OF BREATH 10/05/2012 DIANN DAMON MD V52.2 FITTING AND ADJUSTMENT OF ARTIFICIAL EYE 10/05/2012 ANGELA RN, COLEMAN E 455.6 UNSPECIFIED HEMORRHOIDS WITHOUT COMPLICATION 10/05/2012 ANGELA RN, COLEMAN E 599.70 HEMATURIA UNSPECIFIED 10/05/2012 ANGELA RN, COLEMAN E 786.05 SHORTNESS OF BREATH 10/05/2012 ANGELA DELATORRE, COLEMAN E V52.2 FITTING AND ADJUSTMENT OF ARTIFICIAL EYE 10/05/2012 DIANN DAMON MD N 455.6 UNSPECIFIED HEMORRHOIDS WITHOUT COMPLICATION 10/05/2012 DIANN DAMON MD N 599.70 HEMATURIA UNSPECIFIED 10/05/2012 DIANN DAMON MD N 786.05 SHORTNESS OF BREATH 10/05/2012 DIANN DAMON MD V52.2 FITTING AND ADJUSTMENT OF ARTIFICIAL EYE 10/05/2012 DIANN DAMON MD N 455.6 UNSPECIFIED HEMORRHOIDS WITHOUT COMPLICATION 10/05/2012 DIANN DAMON MD N 599.70 HEMATURIA UNSPECIFIED 10/05/2012 DIANN DAMON MD N 786.05 SHORTNESS OF BREATH 10/05/2012 DIANN DAMON MD N V52.2 FITTING AND ADJUSTMENT OF ARTIFICIAL EYE 01/16/2013 WANG DO, CATRINA K 715.00 OSTEOARTHROSIS GENERALIZED INVOLVING UNSPECIFIED SITE 01/16/2013 WANG DO, CATRINA K 780.79 OTHER MALAISE AND FATIGUE 01/16/2013 WANG DO, CATIRNA K 715.00 OSTEOARTHROSIS GENERALIZED INVOLVING UNSPECIFIED SITE 01/16/2013 WANG DO, CATRINA K 780.79 OTHER MALAISE AND FATIGUE 01/16/2013 WANG DO, CATRINA K 715.00 OSTEOARTHROSIS GENERALIZED INVOLVING UNSPECIFIED SITE 01/16/2013 WANG DO, CATRINA K 780.79 OTHER MALAISE AND FATIGUE 01/16/2013 WANG DO, CATRINA K 715.00 OSTEOARTHROSIS GENERALIZED INVOLVING UNSPECIFIED SITE 01/16/2013 WANG DO, CATRINA K 780.79 OTHER MALAISE AND FATIGUE 01/16/2013 WANG DO, CATRINA K 715.00 OSTEOARTHROSIS GENERALIZED INVOLVING UNSPECIFIED SITE 01/16/2013 WANG DO, CATRINA K 780.79 OTHER MALAISE AND FATIGUE 01/16/2013 WANG DO, CATRINA K 715.00 OSTEOARTHROSIS GENERALIZED INVOLVING UNSPECIFIED SITE 01/16/2013 WANG DO, CATRINA K 780.79 OTHER MALAISE AND FATIGUE 01/16/2013 WANG DO, CATRINA K 715.00 OSTEOARTHROSIS GENERALIZED INVOLVING UNSPECIFIED SITE 01/16/2013 WANG DO, CATRINA K 780.79 OTHER MALAISE AND FATIGUE 01/16/2013 WANG DO, CATRINA K 715.00 OSTEOARTHROSIS GENERALIZED INVOLVING UNSPECIFIED SITE 01/16/2013 WANG DO, CATRINA K 780.79 OTHER MALAISE AND FATIGUE 01/16/2013 WANG DO, CATRINA K 715.00 OSTEOARTHROSIS GENERALIZED INVOLVING UNSPECIFIED SITE 01/16/2013 WANG DO, CATRINA K 780.79 OTHER MALAISE AND FATIGUE 01/16/2013 WANG DO, CATRINA K 715.00 OSTEOARTHROSIS GENERALIZED INVOLVING UNSPECIFIED SITE 01/16/2013 WANG DO, CATRINA K 780.79 OTHER MALAISE AND FATIGUE 01/16/2013 WANG DO, CATRINA K 715.00 OSTEOARTHROSIS GENERALIZED INVOLVING UNSPECIFIED SITE 01/16/2013 WANG DO, CATRINA K 780.79 OTHER MALAISE AND FATIGUE 01/16/2013 WANG DO, CATRINA K 715.00 OSTEOARTHROSIS GENERALIZED INVOLVING UNSPECIFIED SITE 01/16/2013 WANG DO, CATRINA K 780.79 OTHER MALAISE AND FATIGUE 01/16/2013 WANG DO, CATRINA K 715.00 OSTEOARTHROSIS GENERALIZED INVOLVING UNSPECIFIED SITE 01/16/2013 WANG DO, CATRINA K 780.79 OTHER MALAISE AND FATIGUE 01/16/2013 ANGELA DELATORRE, COLEMAN E 715.00 OSTEOARTHROSIS GENERALIZED INVOLVING UNSPECIFIED SITE 01/16/2013 COLEMAN MILLER RN E 780.79 OTHER MALAISE AND FATIGUE 01/16/2013 ANGELA DELATRORE, COLEMAN E 715.00 OSTEOARTHROSIS GENERALIZED INVOLVING UNSPECIFIED SITE 01/16/2013 COLEMAN MILLER RN E 780.79 OTHER MALAISE AND FATIGUE 01/16/2013 COLEMAN MILLER RN E 715.00 OSTEOARTHROSIS GENERALIZED INVOLVING UNSPECIFIED SITE 01/16/2013 ANGELA DELATORRE, COLEMAN E 780.79 OTHER MALAISE AND FATIGUE 01/16/2013 DIANN DAMON MD 715.00 OSTEOARTHROSIS GENERALIZED INVOLVING UNSPECIFIED SITE 01/16/2013 DIANN DAMON MD 780.79 OTHER MALAISE AND FATIGUE 01/16/2013 ANGELA DELATORRE, COLEMAN E 715.00 OSTEOARTHROSIS GENERALIZED INVOLVING UNSPECIFIED SITE 01/16/2013 ANGELA RN, COLEMAN E 780.79 OTHER MALAISE AND FATIGUE 01/16/2013 NELSON GONCALVES, DIANN N 715.00 OSTEOARTHROSIS GENERALIZED INVOLVING UNSPECIFIED SITE 01/16/2013 NELSON GONCALVES, DIANN N 780.79 OTHER MALAISE AND FATIGUE 01/16/2013 ANGELA DELATORRE, COLEMAN E 715.00 OSTEOARTHROSIS GENERALIZED INVOLVING UNSPECIFIED SITE 01/16/2013 ANGELA DELATORRE, COLEMAN E 780.79 OTHER MALAISE AND FATIGUE 01/16/2013 NELSON GONCALVES, DIANN N 715.00 OSTEOARTHROSIS GENERALIZED INVOLVING UNSPECIFIED SITE 01/16/2013 NELSON GONCALVES, DIANN N 780.79 OTHER MALAISE AND FATIGUE 01/16/2013 NELSON GONCALVES, DIANN N 715.00 OSTEOARTHROSIS GENERALIZED INVOLVING UNSPECIFIED SITE 01/16/2013 NELSON GONCALVES, DIANN N 780.79 OTHER MALAISE AND FATIGUE 03/17/2013 WANG DO CATRINA K 461.9 SINUSITIS ACUTE 03/17/2013 FELIPE BRAVO CATRINA K 477.9 RHINITIS 03/17/2013 WANG DO, CATRINA K 784.91 POSTNASAL DRIP 03/17/2013 FELIPE BRAVO CATRINA K V04.81 FLU SHOT 03/17/2013 WANG DO CATRINA K 461.9 SINUSITIS ACUTE 03/17/2013 WANG DO CATRINA K 477.9 RHINITIS 03/17/2013 WANG DO CATRINA K 784.91 POSTNASAL DRIP 03/17/2013 WANG DO CATRINA K V04.81 FLU SHOT 03/17/2013 WANG DO CATRINA K 461.9 SINUSITIS ACUTE 03/17/2013 WANG DO CATRINA K 477.9 RHINITIS 03/17/2013 WANG DO, CATRINA K 784.91 POSTNASAL DRIP 03/17/2013 WANG DO CATRINA K V04.81 FLU SHOT 03/17/2013 WANG DO CATRINA K 461.9 SINUSITIS ACUTE 03/17/2013 WANG DO CATRINA K 477.9 RHINITIS 03/17/2013 WANG DO CATRINA K 784.91 POSTNASAL DRIP 03/17/2013 WANG DO, CATRINA K V04.81 FLU SHOT 03/17/2013 WANG DO, CATRINA K 461.9 SINUSITIS ACUTE 03/17/2013 WANG DO, CATRINA K 477.9 RHINITIS 03/17/2013 WANG DO, CATRINA K 784.91 POSTNASAL DRIP 03/17/2013 WANG DO, CATRINA K V04.81 FLU SHOT 03/17/2013 WANG DO, CATRINA K 461.9 SINUSITIS ACUTE 03/17/2013 WANG DO, CATRINA K 477.9 RHINITIS 03/17/2013 WANG DO, CATRINA K 784.91 POSTNASAL DRIP 03/17/2013 WANG DO, CATRINA K V04.81 FLU SHOT 03/17/2013 WANG DO, CATRINA K 461.9 SINUSITIS ACUTE 03/17/2013 WANG DO, CATRINA K 477.9 RHINITIS 03/17/2013 WANG DO, CATRINA K 784.91 POSTNASAL DRIP 03/17/2013 WANG DO, CATRINA K V04.81 FLU SHOT 03/17/2013 WANG DO, CATRINA K 461.9 SINUSITIS ACUTE 03/17/2013 WANG DO, CATRINA K 477.9 RHINITIS 03/17/2013 WANG DO, CATRINA K 784.91 POSTNASAL DRIP 03/17/2013 WANG DO, CATRINA K V04.81 FLU SHOT 03/17/2013 WANG DO, CATRINA K 461.9 SINUSITIS ACUTE 03/17/2013 WANG DO, CATRINA K 477.9 RHINITIS 03/17/2013 WANG DO, CATRINA K 784.91 POSTNASAL DRIP 03/17/2013 WANG DO, CATRINA K V04.81 FLU SHOT 03/17/2013 WANG DO, CATRINA K 461.9 SINUSITIS ACUTE 03/17/2013 WANG DO, CATRINA K 477.9 RHINITIS 03/17/2013 WANG DO, CATRINA K 784.91 POSTNASAL DRIP 03/17/2013 WANG DO, CATRINA K V04.81 FLU SHOT 03/17/2013 WANG DO, CATRINA K 461.9 SINUSITIS ACUTE 03/17/2013 WANG DO, CATRINA K 477.9 RHINITIS 03/17/2013 WANG DO, CATRINA K 784.91 POSTNASAL DRIP 03/17/2013 WANG DO, CATRINA K V04.81 FLU SHOT 03/17/2013 ANGELA RN, COLEMAN E 461.9 SINUSITIS ACUTE 03/17/2013 ANGELA RN, COLEMAN E 477.9 RHINITIS 03/17/2013 ANGELA RN, COLEMAN E 784.91 POSTNASAL DRIP 03/17/2013 ANGELA RN, COLEMAN E V04.81 FLU SHOT 03/17/2013 ANGELA RN, COLEMAN E 461.9 SINUSITIS ACUTE 03/17/2013 ANGELA RN, COLEMAN E 477.9 RHINITIS 03/17/2013 ANGELA RN, COLEMAN E 784.91 POSTNASAL DRIP 03/17/2013 MILLER RN, COLEMAN E V04.81 FLU SHOT 03/17/2013 ANGELA RN, COLEMAN E 461.9 SINUSITIS ACUTE 03/17/2013 ANGELA RN, COLEMAN E 477.9 RHINITIS 03/17/2013 ANGELA RN, COLEMAN E 784.91 POSTNASAL DRIP 03/17/2013 ANGELA RN, COLEMAN E V04.81 FLU SHOT 03/17/2013 NELSON GONCALVES, DIANN N 461.9 SINUSITIS ACUTE 03/17/2013 NELSON GONCALVES, DIANN N 477.9 RHINITIS 03/17/2013 NELSON GONCALVES, DIANN N 784.91 POSTNASAL DRIP 03/17/2013 NELSON GONCALVES, DIANN N V04.81 FLU SHOT 03/17/2013 ANGELA RN, COLEMAN E 461.9 SINUSITIS ACUTE 03/17/2013 ANGELA RN, COLEMAN E 477.9 RHINITIS 03/17/2013 ANGELA RN, COLEMAN E 784.91 POSTNASAL DRIP 03/17/2013 ANGELA RN, COLEMAN E V04.81 FLU SHOT 03/17/2013 NELSON GONCALVES, DIANN N 461.9 SINUSITIS ACUTE 03/17/2013 NELSON GONCALVES, DIANN N 477.9 RHINITIS 03/17/2013 NELSON GONCALVES, DIANN N 784.91 POSTNASAL DRIP 03/17/2013 NELSON GONCALVES, DIANN N V04.81 FLU SHOT 03/17/2013 ANGELA RN, COLEMAN E 461.9 SINUSITIS ACUTE 03/17/2013 ANGELA RN, COLEMAN E 477.9 RHINITIS 03/17/2013 ANGELA RN, COLEMAN E 784.91 POSTNASAL DRIP 03/17/2013 ANGELA RN, COLEMAN E V04.81 FLU SHOT 03/17/2013 NELSON GONCALVES, DINAN N 461.9 SINUSITIS ACUTE 03/17/2013 DIANN DAMON MD N 477.9 RHINITIS 03/17/2013 NELSON GONCALVES, DIANN N 784.91 POSTNASAL DRIP 03/17/2013 NELSON GONCALVES, DIANN N V04.81 FLU SHOT 03/17/2013 DIANN DAMON MD N 461.9 SINUSITIS ACUTE 03/17/2013 DIANN DAMON MD N 477.9 RHINITIS 03/17/2013 NELSON GONCALVES, DIANN N 784.91 POSTNASAL DRIP 03/17/2013 DIANN DAMON MD N V04.81 FLU SHOT 04/02/2013 GIOVANNI GONCALVES, TUBA Ot 564.00 UNSPEC CONSTIPATION 04/02/2013 GIOVANNI GONCALVES, TUBA Ot 569.3 RECTAL ANAL HEMORRHAGE 04/02/2013 GIOVANNI GONCALVES, TUBA Ot 787.1 HEARTBURN 05/02/2013 WANG DO, CATRINA K 388.70 OTALGIA UNSPECIFIED 05/02/2013 WANG DO, CATRINA K 388.70 OTALGIA UNSPECIFIED 05/02/2013 WANG DO, CATRINA K 388.70 OTALGIA UNSPECIFIED 05/02/2013 WANG DO, CATRINA K 388.70 OTALGIA UNSPECIFIED 05/02/2013 WANG DO, CATRINA K 388.70 OTALGIA UNSPECIFIED 05/02/2013 WANG DO, CATRINA K 388.70 OTALGIA UNSPECIFIED 05/02/2013 WANG DO, CATRINA K 388.70 OTALGIA UNSPECIFIED 05/02/2013 WANG DO, CATRINA K 388.70 OTALGIA UNSPECIFIED 05/02/2013 WANG DO, CATRINA K 388.70 OTALGIA UNSPECIFIED 05/02/2013 ANGELA DELATORRE, COLEMAN E 388.70 OTALGIA UNSPECIFIED 05/02/2013 ANGELA DELATORRE, COLEMAN Spence 388.70 OTALGIA UNSPECIFIED 05/02/2013 ANGELA DELATORRE, COLEMAN E 388.70 OTALGIA UNSPECIFIED 05/02/2013 DIANN DAMON MD N 388.70 OTALGIA UNSPECIFIED 05/02/2013 ANGELA DELATORRE, COLEMAN E 388.70 OTALGIA UNSPECIFIED 05/02/2013 DIANN DAMON MD N 388.70 OTALGIA UNSPECIFIED 05/02/2013 ANGELA DELATORRE, COLEMAN E 388.70 OTALGIA UNSPECIFIED 05/02/2013 NELSON GONCALVES, DIANN N 388.70 OTALGIA UNSPECIFIED 05/02/2013 NELSON GONCALVES, DIANN N 388.70 OTALGIA UNSPECIFIED 05/29/2013 FELIPE DO CATRINA K 682.9 CELLULITIS AND ABSCESS OF UNSPECIFIED SITES 05/29/2013 WANG DO, ACTRINA K 682.9 CELLULITIS AND ABSCESS OF UNSPECIFIED SITES 05/29/2013 WANG DO, CATRINA K 682.9 CELLULITIS AND ABSCESS OF UNSPECIFIED SITES 05/29/2013 WANG DO, CATRINA K 682.9 CELLULITIS AND ABSCESS OF UNSPECIFIED SITES 05/29/2013 WANG DO, CATRINA K 682.9 CELLULITIS AND ABSCESS OF UNSPECIFIED SITES 05/29/2013 WANG DO, CATRINA K 682.9 CELLULITIS AND ABSCESS OF UNSPECIFIED SITES 05/29/2013 WANG DO CATRINA K 682.9 CELLULITIS AND ABSCESS OF UNSPECIFIED SITES 05/29/2013 FELIPE BRAVO CATRINA K 682.9 CELLULITIS AND ABSCESS OF UNSPECIFIED SITES 05/29/2013 ANGELA DELATORRE, COLEMAN E 682.9 CELLULITIS AND ABSCESS OF UNSPECIFIED SITES 05/29/2013 ANGELA DELATORRE, COLEMAN E 682.9 CELLULITIS AND ABSCESS OF UNSPECIFIED SITES 05/29/2013 ANGELA DELATORRE, COLEMAN E 682.9 CELLULITIS AND ABSCESS OF UNSPECIFIED SITES 05/29/2013 DIANN DAMON MD N 682.9 CELLULITIS AND ABSCESS OF UNSPECIFIED SITES 05/29/2013 ANGELA DELATORRE, COLEMAN E 682.9 CELLULITIS AND ABSCESS OF UNSPECIFIED SITES 05/29/2013 DIANN DAMON MD N 682.9 CELLULITIS AND ABSCESS OF UNSPECIFIED SITES 05/29/2013 ANGELA DELATORRE, COLEMAN E 682.9 CELLULITIS AND ABSCESS OF UNSPECIFIED SITES 05/29/2013 DIANN DAMON MD N 682.9 CELLULITIS AND ABSCESS OF UNSPECIFIED SITES 05/29/2013 DIANN DAMON MD N 682.9 CELLULITIS AND ABSCESS OF UNSPECIFIED SITES 07/07/2013 CATRINA WANG DO K 305.1 NONDEPENDENT TOBACCO USE DISORDER 07/07/2013 WANG DO, CATRINA K 724.3 SCIATICA 07/07/2013 WANG DO CATRINA K V15.81 PERSONAL HISTORY OF NONCOMPLIANCE WITH MEDICAL TREATMENT PRESENTING HAZARDS TO HEALTH 07/07/2013 WANG DO CATRINA K 305.1 NONDEPENDENT TOBACCO USE DISORDER 07/07/2013 WANG DO CATRINA K 724.3 SCIATICA 07/07/2013 WANG DO CATRINA K V15.81 PERSONAL HISTORY OF NONCOMPLIANCE WITH MEDICAL TREATMENT PRESENTING HAZARDS TO HEALTH 07/07/2013 WANG DO CATRINA K 305.1 NONDEPENDENT TOBACCO USE DISORDER 07/07/2013 WANG DO CATRINA K 724.3 SCIATICA 07/07/2013 WANG DO CATRINA K V15.81 PERSONAL HISTORY OF NONCOMPLIANCE WITH MEDICAL TREATMENT PRESENTING HAZARDS TO HEALTH 07/07/2013 FELIPE BRAVO CATRINA K 305.1 NONDEPENDENT TOBACCO USE DISORDER 07/07/2013 WANG DO CATRINA K 724.3 SCIATICA 07/07/2013 WANG DO CATRINA K V15.81 PERSONAL HISTORY OF NONCOMPLIANCE WITH MEDICAL TREATMENT PRESENTING HAZARDS TO HEALTH 07/07/2013 FELIPE BRAVO CATRINA K 305.1 NONDEPENDENT TOBACCO USE DISORDER 07/07/2013 WANG DO CATRINA K 724.3 SCIATICA 07/07/2013 WANG DO CATRINA K V15.81 PERSONAL HISTORY OF NONCOMPLIANCE WITH MEDICAL TREATMENT PRESENTING HAZARDS TO HEALTH 07/07/2013 FELIPE BRAVO CATRINA K 305.1 NONDEPENDENT TOBACCO USE DISORDER 07/07/2013 WANG DO CATRINA K 724.3 SCIATICA 07/07/2013 WANG DO CATRINA K V15.81 PERSONAL HISTORY OF NONCOMPLIANCE WITH MEDICAL TREATMENT PRESENTING HAZARDS TO HEALTH 07/07/2013 ANGELA DELATORRE, COLEMAN E 305.1 NONDEPENDENT TOBACCO USE DISORDER 07/07/2013 COLEMAN MILLER RN E 724.3 SCIATICA 07/07/2013 COLEMAN MILLER RN E V15.81 PERSONAL HISTORY OF NONCOMPLIANCE WITH MEDICAL TREATMENT PRESENTING HAZARDS TO HEALTH 07/07/2013 COLEMAN MILLER RN E 305.1 NONDEPENDENT TOBACCO USE DISORDER 07/07/2013 COLEMAN MILLER RN E 724.3 SCIATICA 07/07/2013 COLEMAN MILLER RN E V15.81 PERSONAL HISTORY OF NONCOMPLIANCE WITH MEDICAL TREATMENT PRESENTING HAZARDS TO HEALTH 07/07/2013 COLEMAN MILLER RN E 305.1 NONDEPENDENT TOBACCO USE DISORDER 07/07/2013 ANGELA DELATORRE, COLEMAN E 724.3 SCIATICA 07/07/2013 COLEMAN MILLER RN E V15.81 PERSONAL HISTORY OF NONCOMPLIANCE WITH MEDICAL TREATMENT PRESENTING HAZARDS TO HEALTH 07/07/2013 DIANN DAMON MD N 305.1 NONDEPENDENT TOBACCO USE DISORDER 07/07/2013 DIANN DAMON MD N 724.3 SCIATICA 07/07/2013 DIANN DAMON MD V15.81 PERSONAL HISTORY OF NONCOMPLIANCE WITH MEDICAL TREATMENT PRESENTING HAZARDS TO HEALTH 07/07/2013 ANGELA DELATORRE, COLEMAN E 305.1 NONDEPENDENT TOBACCO USE DISORDER 07/07/2013 ANGELA DELATORRE, COLEMAN E 724.3 SCIATICA 07/07/2013 COLEMAN MILLER RN E V15.81 PERSONAL HISTORY OF NONCOMPLIANCE WITH MEDICAL TREATMENT PRESENTING HAZARDS TO HEALTH 07/07/2013 DIANN DAMON MD N 305.1 NONDEPENDENT TOBACCO USE DISORDER 07/07/2013 DIANN DAMON MD 724.3 SCIATICA 07/07/2013 DIANN DAMON MD N V15.81 PERSONAL HISTORY OF NONCOMPLIANCE WITH MEDICAL TREATMENT PRESENTING HAZARDS TO HEALTH 07/07/2013 ANGELA DELATORRE, COLEMAN E 305.1 NONDEPENDENT TOBACCO USE DISORDER 07/07/2013 ANGELA DELATORRE, COLEMAN E 724.3 SCIATICA 07/07/2013 ANGELA DELATORRE, COLEMAN E V15.81 PERSONAL HISTORY OF NONCOMPLIANCE WITH MEDICAL TREATMENT PRESENTING HAZARDS TO HEALTH 07/07/2013 DIANN DAMON MD N 305.1 NONDEPENDENT TOBACCO USE DISORDER 07/07/2013 DIANN DAMON MD N 724.3 SCIATICA 07/07/2013 DIANN DAMON MD N V15.81 PERSONAL HISTORY OF NONCOMPLIANCE WITH MEDICAL TREATMENT PRESENTING HAZARDS TO HEALTH 07/07/2013 DIANN DAMON MD N 305.1 NONDEPENDENT TOBACCO USE DISORDER 07/07/2013 DIANN DAMON MD N 724.3 SCIATICA 07/07/2013 DIANN DAMON MD N V15.81 PERSONAL HISTORY OF NONCOMPLIANCE WITH MEDICAL TREATMENT PRESENTING HAZARDS TO HEALTH 07/21/2013 CATRINA WANG DO 780.79 OTHER MALAISE AND FATIGUE 07/21/2013 WANG DO, CATRINA K 787.01 NAUSEA WITH VOMITING 07/21/2013 WANG DO, CATRINA K 788.41 URINARY FREQUENCY 07/21/2013 WANG DO, CATRINA K 780.79 OTHER MALAISE AND FATIGUE 07/21/2013 WANG DO, CATRINA K 787.01 NAUSEA WITH VOMITING 07/21/2013 WANG DO, CATRINA K 788.41 URINARY FREQUENCY 07/21/2013 WANG DO, CATRINA K 780.79 OTHER MALAISE AND FATIGUE 07/21/2013 WANG DO, CATRINA K 787.01 NAUSEA WITH VOMITING 07/21/2013 WANG DO, CATRINA K 788.41 URINARY FREQUENCY 07/21/2013 WANG DO, CATRINA K 780.79 OTHER MALAISE AND FATIGUE 07/21/2013 WANG DO, CATRINA K 787.01 NAUSEA WITH VOMITING 07/21/2013 WANG DO, CATRINA K 788.41 URINARY FREQUENCY 07/21/2013 WANG DO, CATRINA K 780.79 OTHER MALAISE AND FATIGUE 07/21/2013 WANG DO, CATRINA K 787.01 NAUSEA WITH VOMITING 07/21/2013 WANG DO, CATRINA K 788.41 URINARY FREQUENCY 07/21/2013 COLEMAN MILLER RN E 780.79 OTHER MALAISE AND FATIGUE 07/21/2013 COLEMAN MILLER RN E 787.01 NAUSEA WITH VOMITING 07/21/2013 COLEMAN MILLER RN E 788.41 URINARY FREQUENCY 07/21/2013 COLEMAN MILLER RN E 780.79 OTHER MALAISE AND FATIGUE 07/21/2013 COLEMAN MILLER RN E 787.01 NAUSEA WITH VOMITING 07/21/2013 COLEMAN MILLER RN E 788.41 URINARY FREQUENCY 07/21/2013 COLEMAN MILLER RN E 780.79 OTHER MALAISE AND FATIGUE 07/21/2013 COLEMAN MILLER RN E 787.01 NAUSEA WITH VOMITING 07/21/2013 COLEMAN MILLER RN E 788.41 URINARY FREQUENCY 07/21/2013 DIANN DAMON MD 780.79 OTHER MALAISE AND FATIGUE 07/21/2013 DIANN DAMON MD 787.01 NAUSEA WITH VOMITING 07/21/2013 DIANN DAMON MD N 788.41 URINARY FREQUENCY 07/21/2013 COLEMAN MILLER RN E 780.79 OTHER MALAISE AND FATIGUE 07/21/2013 COLEMAN MILLER RN E 787.01 NAUSEA WITH VOMITING 07/21/2013 ANGELA DELATORRE, COLEMAN E 788.41 URINARY FREQUENCY 07/21/2013 DIANN DAMON MD N 780.79 OTHER MALAISE AND FATIGUE 07/21/2013 DIANN DAMON MD N 787.01 NAUSEA WITH VOMITING 07/21/2013 DIANN DAMON MD N 788.41 URINARY FREQUENCY 07/21/2013 ANGELA DELATORRE, COLEMAN E 780.79 OTHER MALAISE AND FATIGUE 07/21/2013 COLEMAN MILLER RN E 787.01 NAUSEA WITH VOMITING 07/21/2013 COLEMAN MILLER RN E 788.41 URINARY FREQUENCY 07/21/2013 DIANN DAMON MD N 780.79 OTHER MALAISE AND FATIGUE 07/21/2013 DIANN DAMON MD N 787.01 NAUSEA WITH VOMITING 07/21/2013 DIANN DAMON MD N 788.41 URINARY FREQUENCY 07/21/2013 DIANN DAMON MD N 780.79 OTHER MALAISE AND FATIGUE 07/21/2013 DIANN DAMON MD N 787.01 NAUSEA WITH VOMITING 07/21/2013 DIANN DAMON MD N 788.41 URINARY FREQUENCY 08/29/2013 WANG DO, CATRINA K 384.20 PERFORATION OF TYMPANIC MEMBRANE UNSPECIFIED 08/29/2013 WANG DO, CATRINA K 384.20 PERFORATION OF TYMPANIC MEMBRANE UNSPECIFIED 08/29/2013 WANG DO, CATRINA K 384.20 PERFORATION OF TYMPANIC MEMBRANE UNSPECIFIED 08/29/2013 COLEMAN MILLER RN E 384.20 PERFORATION OF TYMPANIC MEMBRANE UNSPECIFIED 08/29/2013 COLEMAN MILLER RN E 384.20 PERFORATION OF TYMPANIC MEMBRANE UNSPECIFIED 08/29/2013 COLEMAN MILLER RN E 384.20 PERFORATION OF TYMPANIC MEMBRANE UNSPECIFIED 08/29/2013 DIANN DAMON MD N 384.20 PERFORATION OF TYMPANIC MEMBRANE UNSPECIFIED 08/29/2013 COLEMAN MILLER RN E 384.20 PERFORATION OF TYMPANIC MEMBRANE UNSPECIFIED 08/29/2013 DIANN DAMON MD N 384.20 PERFORATION OF TYMPANIC MEMBRANE UNSPECIFIED 08/29/2013 COLEMAN MILLER RN E 384.20 PERFORATION OF TYMPANIC MEMBRANE UNSPECIFIED 08/29/2013 DIANN DAMON MD N 384.20 PERFORATION OF TYMPANIC MEMBRANE UNSPECIFIED 08/29/2013 DIANN DAMON MD N 384.20 PERFORATION OF TYMPANIC MEMBRANE UNSPECIFIED 12/25/2013 DIANN DAMON MD Ot 038.9 SEPTICEMIA NOS 12/25/2013 DIANN DAMON MD Ot 276.1 HYPOSMOLALITY 12/25/2013 DIANN DAMON MD Ot 300.00 ANXIETY STATE NOS 12/25/2013 DIANN DAMON MD Ot 305.1 TOBACCO USE DISORDER 12/25/2013 DIANN DAMON MD Ot 311 DEPRESSIVE DISORDER NEC 12/25/2013 DIANN DAMON MD Ot 345.90 EPILEPSY UNSPEC W/O MENTION INTRACTABLE 12/25/2013 DIANN DAMON MD Ot 493.20 CHRONIC OBSTRUCTIVE ASTHMA, NOS 12/25/2013 DIANN DAMON MD Ot 530.81 ESOPHAGEAL REFLUX 12/25/2013 DIANN DAMON MD Ot 564.00 UNSPEC CONSTIPATION 12/25/2013 DIANN DAMON MD Ot 564.1 IRRITABLE BOWEL SYNDROME 12/25/2013 DIANN DAMON MD Ot 595.1 CHR INTERSTIT CYSTITIS 12/25/2013 DIANN DAMON MD Ot 682.2 CELLULITIS OF TRUNK 12/25/2013 DIANN DAMON MD Ot 995.91 SEPSIS 12/25/2013 DIANN DAMON MD Ot V04.81 ND FOR PROPHYLACTIC VACCIN AND INOCULATI 01/01/2014 COLEMAN MILLER RN E 296.33 MAJOR DEPRESSIVE AFFECTIVE DISORDER RECURRENT EPISODE SEVERE DEGREE WITHOUT PSYCHOTIC BEHAVIOR 01/01/2014 COLEMAN MILLER RN E 296.33 MAJOR DEPRESSIVE AFFECTIVE DISORDER RECURRENT EPISODE SEVERE DEGREE WITHOUT PSYCHOTIC BEHAVIOR 01/01/2014 COLEMAN MILLER RN E 296.33 MAJOR DEPRESSIVE AFFECTIVE DISORDER RECURRENT EPISODE SEVERE DEGREE WITHOUT PSYCHOTIC BEHAVIOR 01/01/2014 DIANN DAMON MD 296.33 MAJOR DEPRESSIVE AFFECTIVE DISORDER RECURRENT EPISODE SEVERE DEGREE WITHOUT PSYCHOTIC BEHAVIOR 01/01/2014 COLEMAN MILLER RN E 296.33 MAJOR DEPRESSIVE AFFECTIVE DISORDER RECURRENT EPISODE SEVERE DEGREE WITHOUT PSYCHOTIC BEHAVIOR 01/01/2014 DIANN DAMON MD 296.33 MAJOR DEPRESSIVE AFFECTIVE DISORDER RECURRENT EPISODE SEVERE DEGREE WITHOUT PSYCHOTIC BEHAVIOR 01/01/2014 COLEMAN MILLER RN E 296.33 MAJOR DEPRESSIVE AFFECTIVE DISORDER RECURRENT EPISODE SEVERE DEGREE WITHOUT PSYCHOTIC BEHAVIOR 01/01/2014 DIANN DAMON MD N 296.33 MAJOR DEPRESSIVE AFFECTIVE DISORDER RECURRENT EPISODE SEVERE DEGREE WITHOUT PSYCHOTIC BEHAVIOR 01/01/2014 DIANN DAMON MD N 296.33 MAJOR DEPRESSIVE AFFECTIVE DISORDER RECURRENT EPISODE SEVERE DEGREE WITHOUT PSYCHOTIC BEHAVIOR 01/26/2014 ANGELA DELATORRE, COLEMAN E 296.32 MAJOR DEPRESSIVE AFFECTIVE DISORDER RECURRENT EPISODE MODERATE DEGREE 01/26/2014 DIANN DAMON MD N 296.32 MAJOR DEPRESSIVE AFFECTIVE DISORDER RECURRENT EPISODE MODERATE DEGREE 01/26/2014 COLEMAN MILLER RN E 296.32 MAJOR DEPRESSIVE AFFECTIVE DISORDER RECURRENT EPISODE MODERATE DEGREE 01/26/2014 DIANN DAMON MD N 296.32 MAJOR DEPRESSIVE AFFECTIVE DISORDER RECURRENT EPISODE MODERATE DEGREE 01/26/2014 COLEMAN MILLER RN E 296.32 MAJOR DEPRESSIVE AFFECTIVE DISORDER RECURRENT EPISODE MODERATE DEGREE 01/26/2014 DIANN DAMON MD N 296.32 MAJOR DEPRESSIVE AFFECTIVE DISORDER RECURRENT EPISODE MODERATE DEGREE 01/26/2014 DIANN DAMON MD 296.32 MAJOR DEPRESSIVE AFFECTIVE DISORDER RECURRENT EPISODE MODERATE DEGREE 02/02/2014 TAMMIE AGUILAR DO Ot 038.9 02/02/2014 TAMMIE AGUILAR DO Ot 682.2 02/02/2014 TAMMIE AGUILAR DO Ot 995.91 02/22/2014 DIANN DAMON MD N 345.10 GENERALIZED CONVULSIVE EPILEPSY WITHOUT INTRACTABLE EPILEPSY 02/22/2014 DIANN DAMON MD N 682.9 CELLULITIS AND ABSCESS OF UNSPECIFIED SITES 02/22/2014 COLEMAN MILLER RN E 345.10 GENERALIZED CONVULSIVE EPILEPSY WITHOUT INTRACTABLE EPILEPSY 02/22/2014 COLEMAN MILLER RN E 682.9 CELLULITIS AND ABSCESS OF UNSPECIFIED SITES 02/22/2014 DIANN DAMON MD N 345.10 GENERALIZED CONVULSIVE EPILEPSY WITHOUT INTRACTABLE EPILEPSY 02/22/2014 DIANN DAMON MD N 682.9 CELLULITIS AND ABSCESS OF UNSPECIFIED SITES 02/22/2014 COLEMAN MILLER RN E 345.10 GENERALIZED CONVULSIVE EPILEPSY WITHOUT INTRACTABLE EPILEPSY 02/22/2014 COLEMAN MILLER RN E 682.9 CELLULITIS AND ABSCESS OF UNSPECIFIED SITES 02/22/2014 DIANN DAMON MD N 345.10 GENERALIZED CONVULSIVE EPILEPSY WITHOUT INTRACTABLE EPILEPSY 02/22/2014 DIANN DAMON MD N 682.9 CELLULITIS AND ABSCESS OF UNSPECIFIED SITES 02/22/2014 DIANN DAMON MD N 345.10 GENERALIZED CONVULSIVE EPILEPSY WITHOUT INTRACTABLE EPILEPSY 02/22/2014 DIANN DAMON MD N 682.9 CELLULITIS AND ABSCESS OF UNSPECIFIED SITES 03/26/2014 JEFF DO EVETTEMIGNON Ot 038.9 SEPTICEMIA NOS 03/26/2014 JEFF TAMMIE BRAVO Ot 682.2 CELLULITIS OF TRUNK 03/26/2014 JEFF TAMMIE BRAVO Ot 995.91 SEPSIS 03/29/2014 ANGELA DELATORRE, COLEMAN E 346.90 HEADACHE, MIGRAINE 03/29/2014 ANGELA DELATORRE, COLEMAN E 491.21 BRONCHITIS AECB 03/29/2014 DIANN DAMON MD N 346.90 HEADACHE, MIGRAINE 03/29/2014 DIANN DAMON MD N 491.21 BRONCHITIS AECB 03/29/2014 DIANN DAMON MD N 346.90 HEADACHE, MIGRAINE 03/29/2014 DIANN DAMON MD N 491.21 BRONCHITIS AECB 03/30/2014 Ot 783.21 03/30/2014 Ot 611.89 03/30/2014 Ot 786.05 03/30/2014 Ot 786.2 03/30/2014 Ot V76.12 03/30/2014 Ot 793.80 03/30/2014 Ot 285.9 03/30/2014 Ot 311 03/30/2014 Ot V58.69 03/30/2014 Ot 793.81 03/30/2014 Ot V15.89 03/30/2014 Ot 285.9 03/30/2014 Ot 311 03/30/2014 Ot V58.69 03/30/2014 Ot 783.21 03/30/2014 Ot 787.01 03/30/2014 Ot 789.00 03/30/2014 Ot 625.9 03/30/2014 Ot 783.21 03/30/2014 Ot 787.02 03/30/2014 Ot 493.90 03/30/2014 Ot 785.1 03/30/2014 Ot V76.12 03/30/2014 Ot V58.69 03/30/2014 Ot V58.83 03/30/2014 Ot 296.40 03/30/2014 Ot 255.9 03/30/2014 Ot 787.3 03/30/2014 Ot 789.00 03/30/2014 Ot V58.69 03/30/2014 Ot V58.83 03/30/2014 Ot 789.01 03/30/2014 Ot 611.79 03/30/2014 Ot V72.84 03/30/2014 Ot V58.69 03/30/2014 Ot V58.83 03/30/2014 JOSUEMIKE Ot V58.69 03/30/2014 JOSUEMIKE Ot V58.83 03/30/2014 JOSUE MIKE Ot V58.69 03/30/2014 JOSUE MIKE Ot V58.83 03/30/2014 SANDRAKEITH Beena CARROLL Ot V76.12 03/30/2014 JOSUEMIKE Ot V58.69 03/30/2014 JOSUEMIKE Ot V58.83 03/30/2014 Ot 564.00 03/30/2014 Ot 569.3 03/30/2014 Ot 787.1 03/30/2014 TAMMIE AGUILAR DO Ot 038.9 03/30/2014 TAMMIE AGUILAR DO Ot 682.2 03/30/2014 TAMMIE AGUILAR DO Ot 995.91 04/02/2014 Ot 783.21 04/02/2014 Ot 611.89 04/02/2014 Ot 786.05 04/02/2014 Ot 786.2 04/02/2014 Ot V76.12 04/02/2014 Ot 793.80 04/02/2014 Ot 285.9 04/02/2014 Ot 311 04/02/2014 Ot V58.69 04/02/2014 Ot 793.81 04/02/2014 Ot V15.89 04/02/2014 Ot 285.9 04/02/2014 Ot 311 04/02/2014 Ot V58.69 04/02/2014 Ot 783.21 04/02/2014 Ot 787.01 04/02/2014 Ot 789.00 04/02/2014 Ot 625.9 04/02/2014 Ot 783.21 04/02/2014 Ot 787.02 04/02/2014 Ot 493.90 04/02/2014 Ot 785.1 04/02/2014 Ot V76.12 04/02/2014 Ot V58.69 04/02/2014 Ot V58.83 04/02/2014 Ot 296.40 04/02/2014 Ot 255.9 04/02/2014 Ot 787.3 04/02/2014 Ot 789.00 04/02/2014 Ot V58.69 04/02/2014 Ot V58.83 04/02/2014 Ot 789.01 04/02/2014 Ot 611.79 04/02/2014 Ot V72.84 04/02/2014 Ot V58.69 04/02/2014 Ot V58.83 04/02/2014 JOSUE MIKE Ot V58.69 04/02/2014 MIKE SALAS Ot V58.83 04/02/2014 MIKE SALAS Ot V58.69 04/02/2014 MIKE SALAS Ot V58.83 04/02/2014 KEITH FLORES Ot V76.12 04/02/2014 MIKE SALAS Ot V58.69 04/02/2014 MIKE SALAS Ot V58.83 04/02/2014 Ot 564.00 04/02/2014 Ot 569.3 04/02/2014 Ot 787.1 04/02/2014 TAMMIE AGUILAR DO Ot 038.9 04/02/2014 TAMMIE AGUILAR DO Ot 682.2 04/02/2014 TAMMIE AGUILAR DO Ot 995.91 04/12/2014 Ot 783.21 04/12/2014 Ot 611.89 04/12/2014 Ot 786.05 04/12/2014 Ot 786.2 04/12/2014 Ot V76.12 04/12/2014 Ot 793.80 04/12/2014 Ot 285.9 04/12/2014 Ot 311 04/12/2014 Ot V58.69 04/12/2014 Ot 793.81 04/12/2014 Ot V15.89 04/12/2014 Ot 285.9 04/12/2014 Ot 311 04/12/2014 Ot V58.69 04/12/2014 Ot 783.21 04/12/2014 Ot 787.01 04/12/2014 Ot 789.00 04/12/2014 Ot 625.9 04/12/2014 Ot 783.21 04/12/2014 Ot 787.02 04/12/2014 Ot 493.90 04/12/2014 Ot 785.1 04/12/2014 Ot V76.12 04/12/2014 Ot V58.69 04/12/2014 Ot V58.83 04/12/2014 Ot 296.40 04/12/2014 Ot 255.9 04/12/2014 Ot 787.3 04/12/2014 Ot 789.00 04/12/2014 Ot V58.69 04/12/2014 Ot V58.83 04/12/2014 Ot 789.01 04/12/2014 Ot 611.79 04/12/2014 Ot V72.84 04/12/2014 Ot V58.69 04/12/2014 Ot V58.83 04/12/2014 MIKE SALAS Ot V58.69 04/12/2014 SAMI SALASRA Ot V58.83 04/12/2014 SAMI SALASRA Ot V58.69 04/12/2014 MIKE SALAS Ot V58.83 04/12/2014 KEITH FLORES Ot V76.12 04/12/2014 MIKE SALAS Ot V58.69 04/12/2014 MIKE SALAS Ot V58.83 04/12/2014 Ot 564.00 04/12/2014 Ot 569.3 04/12/2014 Ot 787.1 04/12/2014 TAMMIE AGUILAR DO Ot 038.9 04/12/2014 TAMMIE AGUILAR DO Ot 682.2 04/12/2014 TAMMIE AGUILAR DO Ot 995.91 04/26/2014 DIANN DAMON MD Ot 346.90 04/26/2014 DIANN DAMON MD Ot 368.9 04/26/2014 DIANN DAMON MD Ot 780.4 04/26/2014 MIKE SALAS Ot V58.62 04/26/2014 MIKE SALAS Ot V58.83 06/11/2014 DIANN DAMON MD Ot 496 06/11/2014 DIANN DAMON MD Ot 724.2 06/11/2014 DIANN DAMON MD Ot 782.0 06/21/2014 DIANN DAMON MD Ot 496 06/21/2014 DIANN DAMON MD N Ot 724.2 06/21/2014 DIANN DAMON MD Ot 782.0 09/03/2014 MIKE SALAS Ot V58.69 09/03/2014 MIKE SALAS Ot V58.83 10/30/2014 ODALIS GONCALVES, GUILLE Bright Ot 305.1 TOBACCO USE DISORDER 10/30/2014 ODALIS GONCALVES, GUILLE Bright Ot 496 CHR AIRWAY OBSTRUCT NEC 10/30/2014 GUILLE JACOBO MD Ot 787.91 DIARRHEA 10/30/2014 Ot 793.81 10/30/2014 Ot V15.89 10/30/2014 Ot 285.9 10/30/2014 Ot 311 10/30/2014 Ot V58.69 10/30/2014 Ot 783.21 10/30/2014 Ot 787.01 10/30/2014 Ot 789.00 10/30/2014 Ot 625.9 10/30/2014 Ot 783.21 10/30/2014 Ot 787.02 10/30/2014 Ot 493.90 10/30/2014 Ot 785.1 10/30/2014 Ot V76.12 10/30/2014 Ot V58.69 10/30/2014 Ot V58.83 10/30/2014 Ot 296.40 10/30/2014 Ot 255.9 10/30/2014 Ot 787.3 10/30/2014 Ot 789.00 10/30/2014 Ot V58.69 10/30/2014 Ot V58.83 10/30/2014 Ot 789.01 10/30/2014 Ot 611.79 10/30/2014 Ot V72.84 10/30/2014 Ot V58.69 10/30/2014 Ot V58.83 10/30/2014 MIKE SALAS Ot V58.69 10/30/2014 MIKE SALAS Ot V58.83 10/30/2014 SAMI SALASRA Ot V58.69 10/30/2014 JOSUE, MIKE Ot V58.83 10/30/2014 KEITH FLORES Ot V76.12 10/30/2014 MIKE SALAS Ot V58.69 10/30/2014 MIKE SALAS Ot V58.83 10/30/2014 Ot 564.00 10/30/2014 Ot 569.3 10/30/2014 Ot 787.1 10/30/2014 TAMMIE AGUILAR DO Ot 038.9 10/30/2014 TAMMIE AGUILAR DO Ot 682.2 10/30/2014 TAMMIE AGUILAR DO Ot 995.91 10/30/2014 DIANN DAMON MD Ot 346.90 10/30/2014 DIANN DAMON MD Ot 368.9 10/30/2014 DIANN DAMON MD Ot 780.4 10/30/2014 MIKE SALAS Ot V58.62 10/30/2014 MIKE SALAS Ot V58.83 10/30/2014 DIANN DAMON MD Ot 496 10/30/2014 DIANN DAMON MD Ot 724.2 10/30/2014 DIANN DAMON MD Ot 782.0 12/28/2014 Ot G56.01 CARPAL TUNNEL SYNDROME, RIGHT UPPER LIMB 12/28/2014 Ot M79.601 PAIN IN RIGHT ARM 12/28/2014 Ot R20.9 UNSPECIFIED DISTURBANCES OF SKIN SENSATI 10/13/2016 PAMELA SAPP DO Ot K62.89 OTHER SPECIFIED DISEASES OF ANUS AND REC 10/13/2016 PAMELA SAPP DO Ot Z01.818 ENCOUNTER FOR OTHER PREPROCEDURAL EXAMIN 05/13/2018 HEATHER FULLER MD Ot F17.210 NICOTINE DEPENDENCE, CIGARETTES, UNCOMPL 05/13/2018 HEATHER FULLER MD Ot F32.9 MAJOR DEPRESSIVE DISORDER, SINGLE EPISOD 05/13/2018 HEATHER FULLER MD Ot F41.9 ANXIETY DISORDER, UNSPECIFIED 05/13/2018 HEATHER FULLER MD Ot G40.909 EPILEPSY, UNSP, NOT INTRACTABLE, WITHOUT 05/13/2018 HEATHER FULLER MD Ot J06.9 ACUTE UPPER RESPIRATORY INFECTION, UNSPE 05/13/2018 HEATHER FULLER MD Ot J44.9 CHRONIC OBSTRUCTIVE PULMONARY DISEASE, U 05/13/2018 HEATHER FULLER MD Ot K21.9 GASTRO-ESOPHAGEAL REFLUX DISEASE WITHOUT 05/13/2018 HEATHER FULLER MD Ot K58.9 IRRITABLE BOWEL SYNDROME WITHOUT DIARRHE 05/13/2018 HEATHER FULLER MD Ot R50.9 FEVER, UNSPECIFIED 05/13/2018 HEATHER FULLER MD Ot Z79.51 SUPERINTENDENT SEED MILL (CURRENT) USE OF INHALED STERO 05/13/2018 HEATHER FULLER MD Ot Z87.19 PERSONAL HISTORY OF OTHER DISEASES OF TH 05/13/2018 HEATHER FULLER MD Ot Z87.440 PERSONAL HISTORY OF URINARY (TRACT) INFE 05/13/2018 HEATHER FULLER MD Ot Z88.1 ALLERGY STATUS TO OTHER ANTIBIOTIC AGENT 05/13/2018 HEATHER FULLER MD Ot Z88.2 ALLERGY STATUS TO SULFONAMIDES STATUS 05/13/2018 HEATHER FULLER MD, Ot Z88.6 ALLERGY STATUS TO ANALGESIC AGENT STATUS 05/13/2018 HEATHER FULLER MD, Ot Z88.8 ALLERGY STATUS TO OTH DRUG/MEDS/BIOL SUB 05/13/2018 HEATHER FULLER MD Ot Z90.710 ACQUIRED ABSENCE OF BOTH CERVIX AND UTER 05/13/2018 HEATHER FULLER MD Ot Z98.51 TUBAL LIGATION STATUS 05/13/2018 HEATHER FULLER MD Ot Z98.890 OTHER SPECIFIED POSTPROCEDURAL STATES 05/13/2018 KEITH FLORES Ot V76.12 OTH SCREEN MAMMO-MALIGN NEOPLASM OF TALI 05/13/2018 MIKE SALAS Ot V58.69 OTH MED,LT,CURRENT USE 05/13/2018 MIKE SALAS Ot V58.83 ENCOUNTER FOR THERAPEUTIC DRUG MONITORIN 05/13/2018 Ot 564.00 UNSPEC CONSTIPATION 05/13/2018 Ot 569.3 RECTAL ANAL HEMORRHAGE 05/13/2018 Ot 787.1 HEARTBURN 05/13/2018 TAMMIE AGUILAR DO Ot 038.9 SEPTICEMIA NOS 05/13/2018 TAMMIE AGUILAR DO Ot 682.2 CELLULITIS OF TRUNK 05/13/2018 TAMMIE AGUILAR DO Ot 995.91 SEPSIS 05/13/2018 DIANN DAMON MD Ot 346.90 MIGRAINE UNSPECIFIED W/O INTRACT MGRN W/ 05/13/2018 DIANN DAMON MD Ot 368.9 VISUAL DISTURBANCE NOS 05/13/2018 DIANN DAMON MD Ot 780.4 DIZZINESS AND GIDDINESS 05/13/2018 MIKE SALAS Ot V58.62 ENCOUNT FOR LONG-TERM(CURRENT) USE OF AN 05/13/2018 MIKE SALAS Ot V58.83 ENCOUNTER FOR THERAPEUTIC DRUG MONITORIN 05/13/2018 DIANN DAMON MD Ot 496 CHR AIRWAY OBSTRUCT NEC 05/13/2018 DIANN DAMON MD Ot 724.2 LUMBAGO 05/13/2018 DIANN DAMON MD Ot 782.0 SKIN SENSATION DISTURB 05/13/2018 PAMELA SAPP DO Ot K62.89 OTHER SPECIFIED DISEASES OF ANUS AND REC 05/13/2018 PAMELA ASPP DO Ot Z01.818 ENCOUNTER FOR OTHER PREPROCEDURAL EXAMIN 05/16/2018 SANDRA KEITHGil CARROLL Ot V76.12 OTH SCREEN MAMMO-MALIGN NEOPLASM OF TALI 05/16/2018 MIKE SALAS Ot V58.69 OTH MED,LT,CURRENT USE 05/16/2018 MIKE SALAS Ot V58.83 ENCOUNTER FOR THERAPEUTIC DRUG MONITORIN 05/16/2018 Ot 564.00 UNSPEC CONSTIPATION 05/16/2018 Ot 569.3 RECTAL ANAL HEMORRHAGE 05/16/2018 Ot 787.1 HEARTBURN 05/16/2018 TAMMIE AGUILAR DO Ot 038.9 SEPTICEMIA NOS 05/16/2018 TAMMIE AGUILAR DO Ot 682.2 CELLULITIS OF TRUNK 05/16/2018 TAMMIE AGUILAR DO Ot 995.91 SEPSIS 05/16/2018 DIANN DAMON MD Ot 346.90 MIGRAINE UNSPECIFIED W/O INTRACT MGRN W/ 05/16/2018 DIANN DAMON MD Ot 368.9 VISUAL DISTURBANCE NOS 05/16/2018 DIANN DAMON MD Ot 780.4 DIZZINESS AND GIDDINESS 05/16/2018 MIKE SALAS Ot V58.62 ENCOUNT FOR LONG-TERM(CURRENT) USE OF AN 05/16/2018 MIKE SALAS Ot V58.83 ENCOUNTER FOR THERAPEUTIC DRUG MONITORIN 05/16/2018 DIANN DMAON MD Ot 496 CHR AIRWAY OBSTRUCT NEC 05/16/2018 DIANN DAMON MD Ot 724.2 LUMBAGO 05/16/2018 DIANN DAMON MD Ot 782.0 SKIN SENSATION DISTURB 05/16/2018 PAMELA SAPP DO Ot K62.89 OTHER SPECIFIED DISEASES OF ANUS AND REC 05/16/2018 PAMELA SAPP DO Ot Z01.818 ENCOUNTER FOR OTHER PREPROCEDURAL EXAMIN 05/17/2018 HEATHER FULLER MD Ot F17.210 NICOTINE DEPENDENCE, CIGARETTES, UNCOMPL 05/17/2018 HEATHER FULLER MD Ot F32.9 MAJOR DEPRESSIVE DISORDER, SINGLE EPISOD 05/17/2018 HEATHER FULLER MD Ot F41.9 ANXIETY DISORDER, UNSPECIFIED 05/17/2018 HEATHER FULLER MD Ot G40.909 EPILEPSY, UNSP, NOT INTRACTABLE, WITHOUT 05/17/2018 HEATHER FULLER MD Ot J06.9 ACUTE UPPER RESPIRATORY INFECTION, UNSPE 05/17/2018 HEATHER FULLER MD Ot J44.9 CHRONIC OBSTRUCTIVE PULMONARY DISEASE, U 05/17/2018 HEATHER FULLER MD Ot K21.9 GASTRO-ESOPHAGEAL REFLUX DISEASE WITHOUT 05/17/2018 HEATHER FULLER MD Ot K58.9 IRRITABLE BOWEL SYNDROME WITHOUT DIARRHE 05/17/2018 HEATHER FULLER MD Ot R50.9 FEVER, UNSPECIFIED 05/17/2018 HEATHER FULLER MD Ot Z79.51 SUPERINTENDENT SEED MILL (CURRENT) USE OF INHALED STERO 05/17/2018 HEATHER FULLER MD Ot Z87.19 PERSONAL HISTORY OF OTHER DISEASES OF TH 05/17/2018 HEATHER FULLER MD Ot Z87.440 PERSONAL HISTORY OF URINARY (TRACT) INFE 05/17/2018 HEATHER FULLER MD Ot Z88.1 ALLERGY STATUS TO OTHER ANTIBIOTIC AGENT 05/17/2018 HEATHER FULLER MD Ot Z88.2 ALLERGY STATUS TO SULFONAMIDES STATUS 05/17/2018 HEATHER FULLER MD Ot Z88.6 ALLERGY STATUS TO ANALGESIC AGENT STATUS 05/17/2018 HEATHER FULLER MD Ot Z88.8 ALLERGY STATUS TO OTH DRUG/MEDS/BIOL SUB 05/17/2018 HEATHER FULLER MD Ot Z90.710 ACQUIRED ABSENCE OF BOTH CERVIX AND UTER 05/17/2018 HEATHER FULLER MD Ot Z98.51 TUBAL LIGATION STATUS 05/17/2018 HEATHER FULLER MD Ot Z98.890 OTHER SPECIFIED POSTPROCEDURAL STATES 08/11/2018 Ot 564.00 UNSPEC CONSTIPATION 08/11/2018 Ot 569.3 RECTAL ANAL HEMORRHAGE 08/11/2018 Ot 787.1 HEARTBURN 08/11/2018 TAMMIE AGUILAR DO Ot 038.9 SEPTICEMIA NOS 08/11/2018 TAMMIE AGUILAR DO Ot 682.2 CELLULITIS OF TRUNK 08/11/2018 TAMMIE AGUILAR DO Ot 995.91 SEPSIS 08/11/2018 DIANN DAMON MD Ot 346.90 MIGRAINE UNSPECIFIED W/O INTRACT MGRN W/ 08/11/2018 DIANN DAMON MD Ot 368.9 VISUAL DISTURBANCE NOS 08/11/2018 DIANN DAMON MD Ot 780.4 DIZZINESS AND GIDDINESS 08/11/2018 MIKE SALAS Ot V58.62 ENCOUNT FOR LONG-TERM(CURRENT) USE OF AN 08/11/2018 MIKE SALAS Ot V58.83 ENCOUNTER FOR THERAPEUTIC DRUG MONITORIN 08/11/2018 DIANN DAMON MD Ot 496 CHR AIRWAY OBSTRUCT NEC 08/11/2018 DIANN DAMON MD Ot 724.2 LUMBAGO 08/11/2018 DIANN DAMON MD Ot 782.0 SKIN SENSATION DISTURB 08/11/2018 PAMELA SAPP DO Ot K62.89 OTHER SPECIFIED DISEASES OF ANUS AND REC 08/11/2018 PAMELA SAPP DO Ot Z01.818 ENCOUNTER FOR OTHER PREPROCEDURAL EXAMIN 08/12/2018 DIANN DAMON MD Ot R63.4 ABNORMAL WEIGHT LOSS 08/12/2018 DIANN DAMON MD Ot Z83.6 FAMILY HISTORY OF OTHER DISEASES OF THE 09/13/2018 TERRANCE SCHULTZ DO Ot Z01.818 ENCOUNTER FOR OTHER PREPROCEDURAL EXAMIN 10/18/2018 TERRANCE SCHULTZ DO Ot Z01.818 ENCOUNTER FOR OTHER PREPROCEDURAL EXAMIN Procedures Code Description [place] [address] MAMMOGRAM DX, NELLIE 01/19/2012 64389 ROUTINE VENIPUNCTURE 01/26/2012 11922 ACTH 01/27/2012 Tavares Muller 02/23/2012 Duncan Ahn 02/23/2012 01666 OXIMETRY 03/17/2013 98612 THERAPUTIC INJ SQ/IM 05/29/2013 J0696 ROCEPHIN INJ 1 g 05/29/2013 22511 INJECT SACROILIAC JOINT 07/10/2013 39523 UA W/ CULTURE IF INDICATED 07/21/2013 OTUZMA CAI 08/29/2013 47777 UA W/ CULTURE IF INDICATED 10/27/2013 86.04 OTHER SKIN SUBQ I D 12/22/2013 S0280 HEALTH PROMOTION 01/05/2014 S0281 CARE COORDINATION 02/07/2014 S0280 HEALTH PROMOTION 02/13/2014 UROLOGY HERMELINDOYUDELKA 02/22/2014 S0280 HEALTH PROMOTION 03/29/[address] HEAD/BRAIN W/O & W/DYE 03/29/2014 09464 XRAY LUMBAR SPINE 2 OR 3 VIEWS 03/29/2014 80821 CMP 03/29/2014 05782 LIPID PANEL 03/29/2014 39551 TSH 03/29/2014 84555 CBC 03/29/2014 S0280 HEALTH PROMOTION 04/17/2014 79021 MRI SPINE (LUMBAR) W/O CONTRAST 04/19/2014 59426 SLEEP STUDY (HOSPITAL- SLEEP STUDY) 04/19/2014 DIAN COLES 04/19/2014 S0280 HEALTH PROMOTION 05/17/2014 Results Test Result Range VITAMIN D, 25-H - 03/19/17 11:27 VITAMIN D,25-OH,TOTAL,IA 22 ng/mL 30-100 TSH - 07/29/17 12:10 TSH 0.65 mIU/L NRG CULTURE, AEROBIC - 09/03/17 15:57 CULTURE, AEROBIC BACTERIA SEE NOTE NRG Influenza virus A and B antigen detection - 05/13/18 18:52 FLU RESULT NEGATIVE FOR INFLUENZA A AND B ANTIGENS BY IA NRG TSH - 07/08/18 12:47 TSH 0.97 mIU/L NRG VITAMIN D, 25-H - 07/08/18 12:47 VITAMIN D,25-OH,TOTAL,IA 37 ng/mL 30-100 VITAMIN B12 - 07/08/18 12:47 VITAMIN B12 522 pg/mL 200-1100 Encounters ACCT No. Visit Date/Time Discharge Status Pt. Type Provider Facility Loc./Unit Complaint [id number] 05/17/2014 10:31:00 05/17/2014 23:59:59 CLS Outpatient NELSON GONCALVES, DIANN Muñoz [id number] 04/19/2014 10:52:00 04/19/2014 23:59:59 CLS Outpatient DIANN DAMON MD [id number] 03/29/2014 15:00:00 03/29/2014 23:59:59 CLS Outpatient COLEMAN MILLER RN [id number] 03/29/2014 13:25:00 03/29/2014 23:59:59 CLS Outpatient DIANN DAMON MD [id number] 03/01/2014 16:10:00 03/01/2014 23:59:59 CLS Outpatient COLEMAN MILLER RN [id number] 02/22/2014 10:33:00 02/22/2014 23:59:59 CLS Outpatient DIANN DAMON MD [id number] 02/01/2014 12:45:00 02/01/2014 23:59:59 CLS Outpatient COLEMAN MILLER RN [id number] 12/29/2013 00:00:00 12/29/2013 23:59:59 CLS Outpatient COLEMAN MILLER RN [id number] 11/16/2013 00:00:00 11/16/2013 23:59:59 CLS Outpatient COLEMAN MILLER RN [id number] 10/27/2013 15:42:00 10/27/2013 23:59:59 CLS Outpatient WANG DO, CATRINA Woodard [id number] 10/27/2013 15:42:00 10/27/2013 23:59:59 CLS Outpatient WANG DO, CATRINA Woodard [id number] 08/29/2013 15:19:00 08/29/2013 23:59:59 CLS Outpatient WANG DOCATRINA [id number] 07/21/2013 13:18:00 07/21/2013 23:59:59 CLS Outpatient WANG DO, CATRINA Vance [id number] 07/21/2013 13:18:00 07/21/2013 23:59:59 CLS Outpatient WANG DO, CATRINA Vance [id number] 07/07/2013 14:07:00 07/07/2013 23:59:59 CLS Outpatient WANG DO, CATRINA Woodard [id number] 05/29/2013 16:07:00 05/29/2013 23:59:59 CLS Outpatient WANG DO, CATRINA Vance [id number] 05/29/2013 16:07:00 05/29/2013 23:59:59 CLS Outpatient WANG DO, CATRINA Woodard [id number] 05/02/2013 09:45:00 05/02/2013 23:59:59 CLS Outpatient WANG DOCATRINA [id number] 03/17/2013 14:59:00 03/17/2013 23:59:59 CLS Outpatient WANG DOCATRINA [id number] 03/17/2013 14:59:00 03/17/2013 23:59:59 CLS Outpatient WANG DOCATRINA [id number] 01/23/2013 14:21:00 01/23/2013 23:59:59 CLS Outpatient WANG DOCATRINA [id number] 01/16/2013 13:02:00 01/16/2013 23:59:59 CLS Outpatient WANG DOCATRINA [id number] 10/05/2012 13:49:00 10/05/2012 23:59:59 CLS Outpatient WANG DOCATRINA [id number] 06/02/2012 15:44:00 06/02/2012 23:59:59 CLS Outpatient WANG DOCATRINA [id number] 05/16/2012 11:57:00 05/16/2012 23:59:59 CLS Outpatient [id number] 04/15/2012 13:27:00 04/15/2012 23:59:59 CLS Outpatient WANG DOCATRINA [id number] 03/25/2012 09:10:00 03/25/2012 23:59:59 CLS Outpatient WANG DOCATRINA [id number] 03/18/2012 13:38:00 03/18/2012 23:59:59 CLS Outpatient [id number] 02/23/2012 12:45:00 02/23/2012 23:59:59 CLS Outpatient FOSTER GONCALVES, PRECIOUS Singh [id number] 01/26/2012 09:17:00 01/26/2012 23:59:59 CLS Outpatient [id number] 01/11/2012 10:42:00 01/11/2012 23:59:59 CLS Outpatient WANG DOCATRINA [id number] 10/17/2018 06:37:00 10/17/2018 23:59:59 CLS Outpatient TERRANCE SCHULTZ DO [facility] PREOP COLONOSCOPY [id number] 09/12/2018 05:51:00 09/12/2018 23:59:59 CLS Outpatient TERRANCE SCHULTZ DO [facility] PREOP COLONOSCOPY [id number] 08/11/2018 10:11:00 08/11/2018 23:59:59 CLS Outpatient DIANN DAMON MD [facility] RAD WEIGHT LOSS [id number] 07/12/2018 09:07:00 07/12/2018 23:59:59 CLS Preadmit GILDARDO SAAVEDRA MD [facility] RAD ROUTINE [id number] 05/13/2018 18:30:00 05/13/2018 19:57:00 DIS Emergency HEATHER FULLER MD [facility] ER BODY ACHES/HOT AND COLD FLASHES [id number] 07/30/2017 15:39:00 07/30/2017 23:59:59 CLS Preadmit DIANN DAMON MD [facility] RAD SCREENING FOR BREAST CANCER [id number] 07/30/2017 15:21:00 07/30/2017 23:59:59 CLS Preadmit DIANN DAMON MD [facility] CARD PALPITATIONS [id number] 10/13/2016 13:00:00 10/13/2016 23:59:59 CLS Preadmit PAMELA SAPP DO [facility] ENDO RECTAL BLEEDING [id number] 10/13/2016 13:00:00 10/13/2016 23:59:59 CLS Preadmit PAMELA SAPP DO [facility] SDC RECTAL PAIN [id number] 10/09/2016 05:49:00 10/09/2016 23:59:59 CLS Outpatient PAMELA SAPP DO [facility] PREOP RECTAL BLEEDING [id number] 10/30/2014 17:49:00 10/30/2014 19:37:00 DIS Emergency GUILLE JACOBO MD [facility] ER DIFFICULTY BREATHING [id number] 06/07/2014 12:27:00 06/07/2014 23:59:59 CLS Outpatient DIANN DAMON MD [facility] RAD BACK PAIN LEG NUMBNESS [id number] 04/12/2014 14:21:00 04/12/2014 23:59:59 CLS Outpatient MIKE SALAS [facility] LAB GROUP HOME MED USE [id number] 04/12/2014 14:20:00 04/12/2014 23:59:59 CLS Outpatient DIANN DAMON MD [facility] RAD MIGRAINE DIZZINESS BLURRY VISION [id number] 03/27/2014 00:39:00 03/27/2014 23:59:59 CLS Preadmit JEFF DO JAKIJING [facility] SEPTIFEMIA NOS,SEPSIS,CELLULITIS OF TRUNK [id number] 12/26/2013 14:05:00 03/26/2014 00:01:00 DIS Outpatient JEFF DO JAKIJING [facility] SEPTIFEMIA NOS,SEPSIS,CELLULITIS OF TRUNK [id number] 12/21/2013 22:35:00 12/25/2013 18:15:00 DIS Inpatient DIANN DAMON MD [facility] SURGICAL SEPSIS;EXTENSIVE CELLULITIS ABD WALL, HYPONATREMIA [id number] 01/04/2013 10:40:00 04/02/2013 00:01:00 DIS Outpatient GIOVANNI GONCALVES, TUBA [facility] RAD HEARTBURN,RECTAL BLEED,CONSTIPATION [id number] 12/01/2012 14:37:00 12/01/2012 23:59:59 CLS Outpatient MIKE SALAS [facility] LAB GROUP HOME MED USAGE [id number] 12/01/2012 14:35:00 12/01/2012 23:59:59 CLS Outpatient KEITH FLORES [facility] RAD SCREENING [id number] 09/27/2012 13:24:00 09/27/2012 23:59:59 CLS Outpatient MIKE SALAS [facility] LAB [id number] 07/11/2012 15:02:00 07/11/2012 23:59:59 CLS Outpatient MIKE SALAS [facility] LAB [id number] 12/31/2014 10:34:00 Document Registration [id number] 03/30/2014 10:15:00 Document Registration [id number] 03/30/2014 10:15:00 Document Registration [id number] 03/30/2014 10:15:00 Document Registration [id number] 03/30/2014 10:15:00 Document Registration [id number] 03/30/2014 10:15:00 Document Registration [id number] 03/30/2014 10:15:00 Document Registration [id number] 03/30/2014 10:15:00 Document Registration [id number] 03/30/2014 10:15:00 Document Registration [id number] 04/03/2013 00:00:00 Document Registration [id number] 06/15/2012 01:22:00 Document Registration [id number] 03/29/2012 13:14:00 Document Registration [id number] 02/02/2012 10:22:00 Document Registration [id number] 02/01/2012 12:59:00 Document Registration [id number] 01/27/2012 12:16:00 Document Registration [id number] 01/20/2012 08:56:00 Document Registration [id number] 01/07/2012 11:24:00 Document Registration [id number] 01/06/2012 14:48:00 Document Registration [id number] 12/17/2011 00:00:00 Document Registration [id number] 10/21/2011 13:22:00 Document Registration [id number] 06/23/2011 15:23:00 Document Registration [id number] 06/22/2011 12:23:00 Document Registration [id number] 04/28/2011 16:57:00 Document Registration [id number] 04/06/2011 16:27:00 Document Registration [id number] 02/25/2011 13:47:00 Document Registration [id number] 01/13/2011 11:14:00 Document Registration [id number] 09/04/2010 13:16:00 Document Registration [id number] 08/20/2010 16:57:00 Document Registration [id number] 08/18/2010 13:43:00 Document Registration [id number] 07/23/2010 19:10:00 Document Registration [id number] 06/06/2010 10:56:00 Document Registration [id number] 05/01/2010 09:15:00 Document Registration [id number] 12/04/2009 17:44:00 Document Registration [id number] 10/28/2009 12:31:00 Document Registration [id number] 10/28/2009 12:27:00 Document Registration [id number] 04/22/2009 12:28:00 Document Registration [id number] 04/16/2009 10:30:00 Document Registration [id number] 04/01/2009 14:58:00 Document Registration [id number] 12/14/2008 14:30:00 Document Registration [id number] 12/05/2008 07:47:00 Document Registration [id number] 10/18/2018 14:00:00 10/18/2018 23:59:59 CLS Outpatient NELSON GONCALVES, DIANN Muñoz [facility] [id number] 07/08/2018 11:20:00 Document Registration [id number] 09/03/2017 13:40:00 Document Registration [id number] 07/29/2017 11:20:00 Document Registration [id number] 03/19/2017 11:20:00 Document Registration
--- NOTE | 2018-10-24 13:33 | Progress Note-Post Operative ---
Post-Operative Progess Note Surgeon (s)/Print Washer (s) Surgeon TERRANCE SCHULTZ DO Print Washer: none Pre-Operative Diagnosis rectal bleed Post-Operative Diagnosis Cecal AVM Diverticula Proctitis Poor prep Procedure & Operative Findings Date of Procedure 10/24/18 Procedure Performed/Findings colon with bx Anesthesia Type IV sedation by NEUROLOGICAL PHYSIOTHERAPIST Estimated Blood Loss Estimated blood loss (mL): scant Specimens/Packing Specimens Removed rectal bx TERRANCE SCHULTZ DO Oct 24, 2018 13:33
--- NOTE | 2018-10-24 13:34 | Endoscopy Discharge Instruct ---
Endo Procedure/Findings Findings 1.: Vascular Ectasias 2.: Internal Hemorrhoids 3.: Other Findings (Proctitis) Discharge Instructions - Activity: You might feel a little sleepy until tomorrow. This is due to the medicine you received to relax you. Until tomorrow, you should: NOT drive a car, operate machinery or power tools. NOT drink any alcoholic beverages. NOT make any important decisions or sign importortant papers. Do not return to work until tomorrow, unless otherwise instructed. Resume previous activities tomorrow. Diet: Start by taking liquids. If you tolerate liquids, advance to solid food. appointment in one week Notify Physician - If you experience excessive bleeding, unusual abdominal pain, fever, or chest pain, contact your doctor immediately. Follow-Up: - I have received and understand the above instructions and will call my doctor if I have any further questions. Patient Signature Date Nurse Signature Other (Relationship) TERRANCE SCHULTZ DO Oct 24, 2018 13:34
--- NOTE | 2018-10-24 14:29 | Anesthesia-General Post-Op ---
MAC Patient Condition Mental Status/LOC: Same as Preop Cardiovascular: Satisfactory Nausea/Vomiting: Absent Respiratory: Satisfactory Pain: Controlled Complications: Absent Post Op Complications Complications None Follow Up Care/Instructions Patient Instructions None needed. Anesthesiology Discharge Order Discharge Order Patient is doing well, no complaints, stable vital signs, no apparent adverse anesthesia problems. No complications reported per nursing. KENYA ADAMS CRNA Oct 24, 2018 14:29
--- NOTE | 2018-10-26 14:24 | OPERATIVE REPORT ---
DATE OF SERVICE: 10/24/2018 PREOPERATIVE DIAGNOSIS: Positive hemoccult. POSTOPERATIVE DIAGNOSES: 1. Cecal arteriovenous malformation. 2. Diverticular. 3. Proctitis. 4. Poor prep. PROCEDURES: Colonoscopy with biopsy. SURGEON: Ahmet Moyer DO CYCLE TOURING GUIDE: None. ANESTHESIA: IV sedation by FIELD RADIO TECHNICIAN. SPECIMEN: Biopsy from the rectum. BLOOD LOSS: Scant. FLUIDS: Per anesthesia. POSTOPERATIVE CONDITION: Stable. INDICATION FOR PROCEDURE: The patient is a 48-year-old female who has have some hemoccult positive and some melanotic stools needed colonoscopy. FINDINGS: The patient had an AVM in the cecum. She also had some diverticula. She had some proctitis and unfortunately had a poor prep, lot of retained fecal material. PROCEDURE NOTE: After informed consent was obtained, the patient was brought to the endoscopy suite and placed in the left lateral decubitus position. She was administered IV sedation by the FIELD RADIO TECHNICIAN who then monitored her vitals the entire time, heart rate, blood pressure and pulse ox. A scope was then inserted. Unfortunately, she had some retained fecal material, able to suction some of it up and not clear all of it. Pushed through all the way up to the cecum, noted some diverticula, took a picture. Pushed all the way to cecum, noted a pretty prominent AVM, was not bleeding. Took a picture of this and then noted a appendiceal orifice, took a picture then slowly withdrew the scope insufflating to look circumferentially at the hunter looking the cecum, up the ascending colon to the hepatic flexure into the transverse colon. Throughout here had found a lot of retained fecal material, could not suction it all up. Continued down the transverse colon to the splenic flexure then down the descending colon into the sigmoid and then the rectum. In the rectum saw a lot of inflammation and irritation, did not see any ulcerations or sloughing. Looked like some proctitis, took a biopsy of this and then retroflexed the scope, saw some internal hemorrhoids, took a picture of this and then removed the scope. The patient tolerated the procedure. She was recovered in endoscopy suite. Job ID: [id number] DocumentID: [id number] Dictated Date: 10/26/2018 09:43:19 Professor Of Biostatistics Date: 10/26/2018 14:22:34 Dictated By: AHMET MOYER DO
== END 2018-10-24 13:10 | disposition home or self-care (01) ==
LOC: ENDO 10:15
PROVIDERS: ATTEND Surgery
DX: Q27.33 Arteriovenous malformation of digestive system vessel (principal); K62.89 Other specified diseases of anus and rectum; K57.30 Diverticulosis of large intestine without perforation or abscess without bleeding; K62.5 Hemorrhage of anus and rectum; G40.909 Epilepsy, unspecified, not intractable, without status epilepticus; F41.9 Anxiety disorder, unspecified; J44.9 Chronic obstructive pulmonary disease, unspecified; F32.9 Major depressive disorder, single episode, unspecified; Z88.1 Allergy status to other antibiotic agents; Z88.2 Allergy status to sulfonamides; Z90.710 Acquired absence of both cervix and uterus; Z98.51 Tubal ligation status; F17.210 Nicotine dependence, cigarettes, uncomplicated; Z88.8 Allergy status to other drugs, medicaments and biological substances; Z82.49 Family history of ischemic heart disease and other diseases of the circulatory system; Z83.3 Family history of diabetes mellitus; Z80.9 Family history of malignant neoplasm, unspecified

== ENCOUNTER 2021-11-12 06:05 | Outpatient (CLI) | payer MEDICAID ==
[~2021-11-12 06:05] MED LIST changes: -LACTATED RINGERS 1,000 ML IV ONE
== END 2021-11-20 09:54 | disposition home or self-care (01) ==
LOC: PREOP 06:05
PROVIDERS: ATTEND Surgery
DX: Z01.818 Encounter for other preprocedural examination (principal)

== ENCOUNTER 2022-05-15 11:37 | Outpatient (CLI) | payer MEDICAID ==
[~2022-05-15] VITALS: Ht 150 cm; Wt 71.2 kg
[2022-05-15] MEDS ORDERED: PREG150C46 PO (13:59)
[2022-05-15] MEDS ORDERED: NF-ALLE180 PO (13:59)
[2022-05-15] MEDS ORDERED: DESV100T6 PO (13:59)
[2022-05-15] MEDS ORDERED: ARFO15VI20 IH (13:59)
[2022-05-15] MEDS ORDERED: HYDR-700 PO (13:59)
[2022-05-15] MEDS ORDERED: CETI10TA17 PO (13:59)
[2022-05-15] MEDS ORDERED: RABE20TA30 PO (13:59)
[2022-05-15] MEDS ORDERED: MONT-40 PO (13:59)
[2022-05-15] MEDS ORDERED: UMEC62.5 IH (13:59)
[2022-05-15] MEDS ORDERED: ESOM40CA52 PO (13:59)
[2022-05-15] MEDS ORDERED: BUDE10.2 IH (13:59)
[2022-05-15] MEDS ORDERED: SUCR1TAB PO (13:59)
[2022-05-15] MEDS ORDERED: BREX2TAB PO (13:59)
== END 2022-05-15 14:55 | disposition home or self-care (01) ==
LOC: PREOP 11:37
PROVIDERS: ATTEND Surgery
DX: Z01.818 Encounter for other preprocedural examination (principal)